=== PATIENT | female | born 1940 | race Caucasian/White ===

== ENCOUNTER 2023-03-05 10:08 | Outpatient (OUT) | payer MEDICARE, SELFPAY ==
[2023-03-05 12:35] LABS: Anion Gap 10.7; BUN Creatinine Ratio 16.9; Calcium 8.8 mg/dL (8.5-10.1); Chloride 102 mmol/L (98-107); Estimated GFR (African America >60 (>=60); Estimated GFR (Non-African Ame >60 (>=60); Glucose 182 mg/dL (74-106); Potassium 3.7 mmol/L (3.5-5.1); Sodium 139 mmol/L (136-145)
== END 2023-03-05 10:09 | disposition home or self-care (01) ==
LOC: LAB 10:13
PROVIDERS: PCP Family Medicine; Visit Provider Internal Medicine Interventional Cardiology
DX: I48.0 Paroxysmal atrial fibrillation (principal)
CPT/HCPCS: 36415; 80048

== ENCOUNTER 2023-09-18 11:30 | Inpatient (IN) | payer MEDICARE, SELFPAY ==
[2023-09-18] VITALS (30 sets, daily range): BP systolic 116–148; BP diastolic 53–72; PULSE 76–128; RESP 16–87; TEMP 36.6–37.4; O2SAT 84–100; BMI 27.8; BMI 28.7
--- NOTE | 2023-09-18 12:36 | ECG_ITS ---
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
[2023-09-18 12:57] LABS: Alanine Aminotransferase 23 U/L (14-59); Albumin Globulin Ratio 0.8; Albumin Level 2.9 g/dL (3.4-5.0); Alkaline Phosphatase 73 U/L (46-116); Aspartate Amino Transferase 32 U/L (15-37); BUN Creatinine Ratio 20.8; Bilirubin Total 0.4 mg/dL (0.2-1.0); Calcium 8.5 mg/dL (8.5-10.1); Carbon Dioxide 25.9 mmol/L (21.0-32.0); Chloride 101 mmol/L (98-107); Estimated GFR (African America >60 (>=60); Estimated GFR (Non-African Ame 56 (>=60); Globulin 3.5 g/dL; Glucose 126 mg/dL (74-106); Magnesium 1.9 mg/dL (1.8-2.4); Potassium 3.9 mmol/L (3.5-5.1); Sodium 137 mmol/L (136-145); Total Protein 6.4 g/dL (6.4-8.2)
[2023-09-18] MEDS: 0.9 % SODIUM CHLORIDE 1,000 ML 999 ML IV (13:01)
[2023-09-18 13:08] LABS: Mean Corpuscular HGB Conc 30.9 g/dL (29.9-35.2); Mean Corpuscular Hemoglobin 35.5 pg (26.7-34.0); Mean Corpuscular Volume 114.9 fL (81.0-99.0); Red Blood Count 1.41 10^6/uL (4.20-5.40)
[2023-09-18 13:14] LABS: Hematocrit 16.2 % (36.0-48.0); Platelet Count 9 10^3/uL (150-450); White Blood Count 31.9 10^3/uL (4.0-11.0)
[2023-09-18 13:28] LABS: Lymphocytes Absolute Manual 1.27 10^3/uL (1.20-3.80); Segmented Neut Absolute Manual 6.69 10^3/uL (1.4-6.5)
[2023-09-18 13:29] LABS: Blast Absolute Manual 23.92; Smudge Cells SEEN
[2023-09-18 13:30] LABS: Anisocytosis 2+; Macrocytosis 3+
[2023-09-18 13:59] LABS: Bilirubin Urine NEGATIVE (NEGATIVE); Blood Urine NEGATIVE (NEGATIVE); Clarity Urine CLEAR (CLEAR); Color Urine LT. YELLOW (YELLOW); Glucose Urine UA NEGATIVE (NEGATIVE); Ketones Urine NEGATIVE (NEGATIVE); Leukocyte Esterase Urine SMALL (NEGATIVE); Nitrite Urine NEGATIVE (NEGATIVE); Protein Urine NEGATIVE (NEG/TRACE); Urobilinogen Urine 0.2 EU/dL (0.2-1.0); pH Urine 5.5 (5.0-9.0)
[2023-09-18 14:13] LABS: Urine Microscopic Indicated YES
[2023-09-18 14:28] LABS: Reticulocyte Pct Auto 3.15 % (0.60-3.10)
[2023-09-18 14:31] LABS: Crystals Seen? None Seen #/HPF (None Seen); Mucus Urine NONE SEEN (NONE SEEN); RBC Urine 0-2 #/HPF (0-2); Squamous Epithelial Cell Urine FEW #/LPF (NONE/RARE)
[2023-09-18 14:32] LABS: Bacteria Urine TRACE #/HPF (NONE SEEN); Cast Seen? NONE SEEN #/LPF (NONE SEEN); Urine Culture Indicated YES
[2023-09-18 14:43] LABS: Percent Iron Saturation 40.9 %
--- NOTE | 2023-09-18 16:20 | P.HP_ITS ---
<Statement entered by Armani Tapia MD - 09/19/23 05:53> This documentation has been reviewed and approved. Chart reviewed, PT not seen Added second antibiotic for more jennifer spectrum with high risk for sepsis given acute state checked stool for occ blood added Blood cx Times 2 H&P: HPI History of Present Illness Chief complaint: DEHYDRATION, Symptomatic Anemia Narrative: 09/18/23 9007 This is an 83-year-old female patient who looks younger than her stated age and with a past medical history as outlined below including hypertension, A-fib on Eliquis, DM2, and hyperlipidemia; who presented to the ED today complaining of weakness, dizziness, and poor appetite for the last 2 weeks. The patient admits to poor appetite since Lucero, but has had difficulty eating even 300 kcal a day over the last 2 weeks. She noted onset of lightheadedness and near syncope when ambulating, blurry vision, headache, and shortness of breath with activity approximately 2 weeks ago. She has become increasingly weak and presented to the ED for further evaluation today. Workup in the ED revealed profound hematologic abnormalities on labs; WBC (31.9), Hgb (5.0), HCT (16.2), PLT (9000). She had a low-grade temperature of 99.3 on arrival to the ED. Mild dehydration with prerenal azotemia was noted as well. A UA was nominally positive for a UTI. Follow-up labs revealed low TIBC and high reticulocyte count, but further anemia workup is still pending. As there is significant clinical concern for acute leukemia, the patient is being admitted as an inpatient to the hospitalist service. Dr. Krueger, oncologist, has been consulted. At the time of my exam the patient is resting quietly on an ED cot. She is pale but awake and alert and able to clearly describe her symptoms. She is normally very active at baseline and has been puzzled by her severe fatigue. She notes some dysuria and burning with wiping after urination. She denies melena or hematochezia. She denies chest pain, N/V/D, abdominal pain or any other acute complaint. She reports nearly 50 pound weight loss over the last year, but most of that was intentional after being diagnosed with type 2 diabetes. She did note increased weight loss over the last 2 weeks. She reports nearly 50 pound weight loss over the last year, but most of that was intentional after being diagnosed with type 2 diabetes. She did note increased weight loss over the last 2 weeks. Review of Systems ROS Status of ROS 10 or more systems reviewed and unremark able except as noted in history and below [facility] Medical History (Updated 09/18/23 @ 18:20 by Cortney Conte) Malignancy ?C80.1 - Malignant (primary) neoplasm, unspecified (ICD-10) FH: coronary artery bypass surgery ?Z82.49 - Family history of ischemic heart disease and other diseases of the circulatory system (ICD-10) A-fib ?I48.91 - Unspecified atrial fibrillation (ICD-10) HTN (hypertension) ?I10 - Essential (primary) hypertension (ICD-10) CAD (coronary artery disease) ?I25.10 - Atherosclerotic heart disease of [place] coronary artery without angina pectoris (ICD-10) Hyperlipidemia ?E78.5 - Hyperlipidemia, unspecified (ICD-10) DM2 (diabetes mellitus, type 2) ?E11.9 - Type 2 diabetes mellitus without complications (ICD-10) Social History Smoking status: Never smoker Highest level of school completed/degree received: some college, no degree Do you think of yourself as: straight/heterosexual Gender Identity: female Meds Home Medications and Allergies Home Medications Medication Instructions Recorded Confirmed Type amlodipine 5 mg tablet 5 mg PO Q24H 09/18/23 09/18/23 History apixaban 5 mg tablet (Eliquis) 5 mg PO Q12H 09/18/23 09/18/23 History aspirin 81 mg tablet,delayed 81 mg PO DAILY 09/18/23 09/18/23 History release (Adult Aspirin Regimen) atorvastatin 40 mg tablet 40 mg PO Q24H 09/18/23 09/18/23 History furosemide 20 mg tablet 20 mg PO Q12H 09/18/23 09/18/23 History metformin 500 mg tablet 500 mg PO Q12H 09/18/23 09/18/23 History metoprolol tartrate 25 mg tablet 25 mg PO Q12H 09/18/23 09/18/23 History Allergies Allergy/AdvReac Type Severity Reaction Status Date / Time ORANGES AdvReac Uncoded 09/18/23 11:49 Exam Constitutional Vital Signs, click to edit/add: Last Vital Signs Temp 98.2 F 09/18/23 16:16 Pulse 85 09/18/23 16:16 Resp 16 09/18/23 16:16 BP 123/57 09/18/23 16:16 Pulse Ox 92 L 09/18/23 16:16 O2 Del Method Room Air 09/18/23 16:16 Common normals: no apparent distress, oriented x3, alert and well nourished General appearance: cooperative and other (Pale) Nutritional appearance: overweight Orientation/consciousness: Yes awake HENMT Common normals: normocephalic, head/scalp atraumatic, hearing grossly normal min[place] aterally, external nose normal and moist oral mucous membranes Eye Common normals: PERRL, EOMs intact bilaterally, conjunctivae normal and no scleral icterus Alignment: alignment normal Eyelid: eyelids normal Neck & C-Spine Common normals: full ROM, supple and no JVD Chest Common normals: inspection of chest normal Chest: symmetrical chest wall rise Respiratory Common normals: normal respiratory effort, no retractions, no use of accessory muscles and clear to auscultation bilaterally Effort & inspection: able to speak in complete sentences Cardio Common normals: no JVD, regular rate, regular rhythm, S1 normal heart sound, S2 normal heart sound, no gallops, no clicks, no rub and peripheral pulses 2+ throughout Heart sounds: murmur (HSM 2/6) GI Common normals: Normal to inspection, nondistended, normoactive bowel sounds present, soft to palpation, non-tender, no hepatosplenomegaly, no masses and no bruits Bladder/kidney exam: bladder normal to palpation Back & Pelvis Common normals: thoracic and lumbar spine normal to inspection Extremity Common normals: normal capillary refill and no pedal edema General: normal exam except as noted; no clubbing and no cyanosis Neuro [place] Coma Scale: GCS not evaluated Common normals: CN's II-XII intact bilaterally, moves all extremities, no focal motor deficits and no sensory deficits noted Speech: speech normal Motor exam: strength 5/5 throughout Psych Common normals: mental status grossly normal, thought process normal, affect normal and activity/motor behavior normal Results Labs Labs: Short CBC 09/18/23 Range/Units 13:00 WBC 31.9 H* (4.0-11.0) 10^3/uL Hgb 5.0 L* (12.0-16.0) g/dL Hct 16.2 L* (36.0-48.0) % Plt Count 9 L* (150-450) 10^3/uL BMP 09/18/23 12:00 Sodium 137 Potassium 3.9 Chloride 101 Carbon Dioxide 25.9 BUN 20.0 H Creatinine 0.96 Glucose 126 H Calcium 8.5 Liver Function 09/18/23 Range/Units 12:00 Total Bilirubin 0.4 (0.2-1.0) mg/dL AST 32 (15-37) U/L ALT 23 (14-59) U/L Alkaline Phosphatase 73 (46-116) U/L Albumin 2.9 L (3.4-5.0) g/dL Urine 09/18/23 Range/Units 13:39 Urine Color Lt. yellow (YELLOW) Urine Clarity Clear (CLEAR) Urine pH 5.5 (5.0-9.0) Ur Specific [place] 1.020 (1.005-1.025) Urine Protein Negative (NEG/TRACE) mg/dL Urine Glucose (UA) Negative (NEGATIVE) mg/dL Pulse Oximetry Attestation: I have reviewed the pertinent pulse oximetry results. Assessment and Plan Assessment and Plan (1) Acute leukemia: Assessment and Plan: Acute * Adm inpatient * Profound leukocytosis - 31,900 * Equivocal UTI - see below * Low grade temp - 99.3 on arrival to ED * Profound anemia - 5.0 * 2 un PRBCs - transfuse now * No evidence of active bleeding despite Eliquis and low platelets * Check for FOB * Hold Eliquis for now * Hemolytic anemia work up ordered in ED - pending * Profound thrombocytopenia - 9,000 * Defer platelet transfusion to hematology after PRBC transfusion complete * C/S Dr Krueger, Hematology * Defer further transfusions - platelets or additional PRBCs, to Hematology service * Defer further work up including bone marrow biopsy etc to Hematolgy * Daily CBC (2) UTI (urinary tract infection): Assessment and Plan: Acute * IVPB Rocephin daily * UA C&S pending (3) Dehydration: Assessment and Plan: Acute * Mild w/ pre-renal azotemia * 1 liter IVF bolus given in ED * Gentle IVF w/ LR at 50 ml/hr to avoid rapid hemodilution in a pt that is severely anemia * Hold home lasix for now * Daily weights, strict I&O * Resume when clinically indicated * No evidence of fluid overload, unknown CHF hx if any (4) Protein calorie malnutrition: Assessment and Plan: Acute * C/S Structural Fitter * Ensure BID
[2023-09-18] MEDS: ACETAMINOPHEN 325 MG TABLET 650 MG PO (16:43)
[2023-09-18] MEDS: DIPHENHYDRAMINE HCL 50 MG/ML (1ML) VIAL IV (16:45)
[2023-09-18 17:14] LABS: Lactate Dehydrogenase 1423 U/L (81-234)
--- NOTE | 2023-09-18 17:30 | PM.CN ---
Consult Note: HPI Data of Consult Requesting Physician: Armani Tapia MD Primary Care Provider: DARBY HAMLIN Consult Narrative Reason for consult: concern for leukemia Narrative: This is an 83-year-old female patient, who follows closely with Dr Hamlin. She looks younger than her stated age, and has a good performance status. She has pmh of of hypertension, A-fib on Eliquis, DM2, and hyperlipidemia; who presented to the ED today complaining of weakness, dizziness, and poor appetite for the last 2 weeks. The patient admits to poor appetite since [place], but has had difficulty eating even 300 kcal a day over the last 2 weeks. She noted onset of lightheadedness and near syncope when ambulating, blurry vision, headache, and shortness of breath with activity approximately 2 weeks ago. She has become increasingly weak and presented to the ED for further evaluation today. Workup in the ED revealed profound hematologic abnormalities on labs; WBC (31.9), Hgb (5.0), HCT (16.2), PLT (9000). She had a low-grade temperature of 99.3 on arrival to the ED. Mild dehydration with prerenal azotemia was noted as well. A UA was nominally positive for a UTI. Follow-up labs revealed low TIBC and high reticulocyte count, but further anemia workup is still pending. We were consulted due to concern for leukemia. Her peripheral blood smear shows moderate leukocytosis, markedly increased immature blasts for at least 75% of the leukocytes, moderate to severe macrocytic anemia, with moderate anisocytosis and severe thrombocytopenia. Overall concerns are for acute leukemia with marrow replacement, with leukoerythroblastic picture. At the time of my exam the patient is receiving pRBC. She has been ordered for two units red blood cells and 1 unit platelet. She is pale but awake and alert and able to clearly describe her symptoms. She notes that she has strong support system, and would desire treatment, even if she has leukemia. She is a bit puzzled that her recent wellness evaluation with PCP was unremarkable. She is normally very active at baseline and has been surprised by her severe fatigue. She notes some dysuria and burning with wiping after urination. She denies melena or hematochezia. She denies chest pain, N/V/D, abdominal pain or any other acute complaint. She reports nearly 50 pound weight loss over the last year, but most of that was intentional after being diagnosed with type 2 diabetes. She in fact wonders if metformin could have caused her leukemia. I have discussed with pt at the bedside, and daughter Almaz on the phone. I discussed my concern for acute leukemia, and have also discussed with colleagues at [facility] (Dr Ana Bill). We will start IVF NS @ 100 mL/hr, we will transfuse to support Hgb > 7 and plt > 10. We will start allopurinol and also test LDH / uric acid. We will start hydrea 500 mg BID once Hgb / platelets are more stable. We will obtain TLS labs q8 hours. We will initiate transfer to [facility] for her bone marrow biopsy and initiation of therapy. ECOG PS 3. cc:: CC: Armani Tapia MD Review of Systems ROS Narrative A comprehensive 12 point review of systems was conducted and is negative other than that reported in the history of present illness. [facility] Medical History (Updated 09/18/23 @ 16:47 by Ila Barry NP) A-fib ?I48.91 - Unspecified atrial fibrillation (ICD-10) HTN (hypertension) ?I10 - Essential (primary) hypertension (ICD-10) CAD (coronary artery disease) ?I25.10 - Atherosclerotic heart disease of [place] coronary artery without angina pectoris (ICD-10) Hyperlipidemia ?E78.5 - Hyperlipidemia, unspecified (ICD-10) DM2 (diabetes mellitus, type 2) ?E11.9 - Type 2 diabetes mellitus without complications (ICD-10) Social History Smoking status: Never smoker Meds Home Medications and Allergies Home Medications Medication Instructions Recorded Confirmed Type amlodipine 5 mg tablet 5 mg PO Q24H 09/18/23 09/18/23 History apixaban 5 mg tablet (Eliquis) 5 mg PO Q12H 09/18/23 09/18/23 History aspirin 81 mg tablet,delayed 81 mg PO DAILY 09/18/23 09/18/23 History release (Adult Aspirin Regimen) atorvastatin 40 mg tablet 40 mg PO Q24H 09/18/23 09/18/23 History furosemide 20 mg tablet 20 mg PO Q12H 09/18/23 09/18/23 History metformin 500 mg tablet 500 mg PO Q12H 09/18/23 09/18/23 History metoprolol tartrate 25 mg tablet 25 mg PO Q12H 09/18/23 09/18/23 History Allergies Allergy/AdvReac Type Severity Reaction Status Date / Time ORANGES AdvReac Uncoded 09/18/23 11:49 Exam Narrative Exam Narrative: Common normals: no apparent distress, oriented x3, alert and well nourished General appearance: cooperative and other (Pale) Nutritional appearance: overweight Orientation/consciousness: Yes awake HENMT Common normals: normocephalic, head/scalp atraumatic, hearing grossly normal bilaterally, external nose normal and moist oral mucous membranes Eye Common normals: PERRL, EOMs intact bilaterally, conjunctivae normal and no scleral icterus Alignment: alignment normal Eyelid: eyelids normal Neck & C-Spine Common normals: full ROM, supple and no JVD Chest Common normals: inspection of chest normal Chest: symmetrical chest wall rise Respiratory Common normals: normal respiratory effort, no retractions, no use of accessory muscles and clear to auscultation bilaterally Effort & inspection: able to speak in complete sentences Cardio Common normals: no JVD, regular rate, regular rhythm, S1 normal heart sound, S2 normal heart sound, no gallops, no clicks, no rub and peripheral pulses 2+ throughout Heart sounds: murmur (HSM 2/6) GI Common normals: Normal to inspection, nondistended, normoactive bowel sounds present, soft to palpation, non-tender, no hepatosplenomegaly, no masses and no bruits Bladder/kidney exam: bladder normal to palpation Back & Pelvis Common normals: thoracic and lumbar spine normal to inspection Extremity Common normals: normal capillary refill and no pedal edema General: normal exam except as noted; no clubbing and no cyanosis Neuro [place] Coma Scale: GCS not evaluated Common normals: CN's II-XII intact bilaterally, moves all extremities, no focal motor deficits and no sensory deficits noted Speech: speech normal Motor exam: strength 5/5 throughout Psych Common normals: mental status grossly normal, thought process normal, affect normal and activity/motor behavior normal Constitutional Vital Signs, click to edit/add: Last Vital Signs Temp 99.3 F 09/18/23 16:43 Pulse 90 09/18/23 16:34 Resp 16 09/18/23 16:34 BP 128/53 09/18/23 16:34 Pulse Ox 92 L 09/18/23 16:34 O2 Del Method Room Air 09/18/23 16:34 Results Labs Labs: Short CBC 09/18/23 Range/Units 13:00 WBC 31.9 H* (4.0-11.0) 10^3/uL Hgb 5.0 L* (12.0-16.0) g/dL Hct 16.2 L* (36.0-48.0) % Plt Count 9 L* (150-450) 10^3/uL BMP 09/18/23 12:00 Sodium 137 Potassium 3.9 Chloride 101 Carbon Dioxide 25.9 BUN 20.0 H Creatinine 0.96 Glucose 126 H Calcium 8.5 Liver Function 09/18/23 Range/Units 12:00 Total Bilirubin 0.4 (0.2-1.0) mg/dL AST 32 (15-37) U/L ALT 23 (14-59) U/L Alkaline Phosphatase 73 (46-116) U/L Albumin 2.9 L (3.4-5.0) g/dL Urine 09/18/23 Range/Units 13:39 Urine Color Lt. yellow (YELLOW) Urine Clarity Clear (CLEAR) Urine pH 5.5 (5.0-9.0) Ur Specific [place] 1.020 (1.005-1.025) Urine Protein Negative (NEG/TRACE) mg/dL Urine Glucose (UA) Negative (NEGATIVE) mg/dL Additional Findings Additional findings: Peripheral blood smear from 09/18/2023 reviewed. Her peripheral blood smear shows moderate leukocytosis, markedly increased immature blasts for at least 75% of the leukocytes, moderate to severe macrocytic anemia, with moderate anisocytosis and severe thrombocytopenia. Overall concerns are for acute leukemia with marrow replacement, with leukoerythroblastic picture. Assessment and Plan Assessment and Plan (1) Acute leukemia: (2) UTI (urinary tract infection): (3) Dehydration: (4) Protein calorie malnutrition: (5) DM2 (diabetes mellitus, type 2): (6) CAD (coronary artery disease): (7) HTN (hypertension): (8) A-fib: Plan 83 y/o female with resected melanoma felt to be without disease (no chemo/xrt), AFIB on Eliquis, presenting with profound fatigue. Labs show leukocytosis, marked anemia and thrombocytopenia. Peripheral smear raises concern for blasts and acute leukemia. Impression: 1. Probable acute leukemia 2. Severe / symptomatic anemia 3. Severe thrombocytopenia 4. Leukocytosis with circulating blasts on peripheral smear 5. AFIB on Eliquis 6. Profound fatigue 7. Weight loss 8. Low grade temp 9. Possible UTI PLAN: - agree with pRBC and plt transfusion, to maintain Hgb > 7 and plt > 10K - discussed with blood bank. next blood unit [facility], hopefully here by AM - repeat CBC this evening - add LDH and uric aid - TLS labs q8 hours - ordered allopurinol 300 mg daily - aggressive IVF hydration. changed fluids to 0.9% NS @ 100 cc/hr - agree with IV Abx for possible UTI - agree with holding eliquis with severe anemia and thrombocytopenia - consider CT head if having headaches or GEOLOGICAL MANAGER symptoms to r/o bleed, although low suspicion at present time - hydrea 500 mg BID when Hgb / plt more stable, either later today or in AM - I have discussed with pt at the bedside, and daughter Almaz on the phone. I discussed my concern for acute leukemia. I have also discussed with colleagues at [facility] (Dr Ana Bill). We will start IVF NS @ 100 mL/hr, we will transfuse to support Hgb > 7 and plt > 10. We will start allopurinol and also test LDH / uric acid. We will start hydrea 500 mg BID once Hgb / platelets are more stable. We will obtain TLS labs q8 hours. We will initiate transfer to [facility] for her bone marrow biopsy and initiation of therapy, if pt and family agree. her likely treatment would involve Vidaza + Venclexta, if our suspicion for acute leukemia is confirmed. Thank you for the consult. Please do not hesitate to call for any q's or concerns. Aneta Krueger MD Hematology Oncology Face to face time: 90 mins
[2023-09-18] MEDS: ALLOPURINOL 300 MG TABLET PO (18:24)
--- NOTE | 2023-09-18 18:59 | ED.GENADUL1 ---
HPI - General Adult General Chief complaint: Weakness Stated complaint: DEHYDRATION Time Seen by Provider: 09/18/23 11:44 Source: patient Mode of arrival: Wheelchair Limitations: no limitations History of Present Illness HPI narrative: 83-year-old female to the emergency department with chief complaint of malaise, fatigue, decreased oral intake. Symptoms were ongoing for the last two months. Intake particularly bad over the last two weeks. She reports she has lost a significant amount of weight. She denies any fever, sweats, chills. Denies any nausea or vomiting. She denies any dark tarry stools or blood in stool. She was seen by her primary care doctor was concerned she may be dehydrated at this point. She was sent to the emergency department for evaluation from his office. Related Data Home Medications Medication Instructions Recorded Confirmed amlodipine 5 mg tablet 5 mg PO Q24H 09/18/23 09/18/23 apixaban 5 mg tablet (Eliquis) 5 mg PO Q12H 09/18/23 09/18/23 aspirin 81 mg tablet,delayed 81 mg PO DAILY 09/18/23 09/18/23 release (Adult Aspirin Regimen) atorvastatin 40 mg tablet 40 mg PO Q24H 09/18/23 09/18/23 furosemide 20 mg tablet 20 mg PO Q12H 09/18/23 09/18/23 metformin 500 mg tablet 500 mg PO Q12H 09/18/23 09/18/23 metoprolol tartrate 25 mg tablet 25 mg PO Q12H 09/18/23 09/18/23 Allergies Allergy/AdvReac Type Severity Reaction Status Date / Time ORANGES AdvReac Uncoded 09/18/23 11:49 Review of Systems ROS Status of ROS 10 or more systems reviewed and unremarkable except as noted in history and below [facility] Medical History (Updated 09/18/23 @ 19:06 by Jez Benitez MD) Malignancy ?C80.1 - Malignant (primary) neoplasm, unspecified (ICD-10) FH: coronary artery bypass surgery ?Z82.49 - Family history of ischemic heart disease and other diseases of the circulatory system (ICD-10) A-fib ?I48.91 - Unspecified atrial fibrillation (ICD-10) HTN (hypertension) ?I10 - Essential (primary) hypertension (ICD-10) CAD (coronary artery disease) ?I25.10 - Atherosclerotic heart disease of [place] coronary artery without angina pectoris (ICD-10) Hyperlipidemia ?E78.5 - Hyperlipidemia, unspecified (ICD-10) DM2 (diabetes mellitus, type 2) ?E11.9 - Type 2 diabetes mellitus without complications (ICD-10) Social History Smoking status: Never smoker Highest level of school completed/degree received: some college, no degree Do you think of yourself as: straight/heterosexual Gender Identity: female Exam Narrative Exam Narrative: VITALS: I have reviewed the triage vital signs. GENERAL: Well developed, well appearing adult in no acute distress. NEURO: Alert and oriented. Moves all extremities. Face is symmetric and expressive. EYES: PERRL. No scleral icterus or conjunctival injection. No discharge. HENT: Normocephalic, atraumatic. Hearing is grossly intact. Nares grossly patent and without discharge. Mucous membranes moist. NECK: No JVD. Patient moves neck without restriction. CARDIO: Rhythm regular. Normal rate. No murmur, rub, or gallop. Pulses equal bilaterally in the upper and lower extremity. No lower extremity edema. PULM: Lungs clear to auscultation in all lugo. No wheezes, rales, or rhonchi. No conversational dyspnea. No splinting, stridor, or accessory muscle use. GI/: Abdomen is soft and non-tender. Normoactive bowel sounds. EXTREMITIES: Symmetric muscle bulk. No joint swelling. No clubbing, cyanosis, or deformity. SKIN: Warm and dry. Normal turgor. No rash or lesions appreciated. PSYCH: Mood, affect, and interaction is appropriate to the setting. Constitutional Vital Signs, click to edit/add: Last Vital Signs Temp 98.2 F 09/18/23 18:34 Pulse 85 09/18/23 18:34 Resp 16 09/18/23 18:34 BP 124/72 09/18/23 18:34 Pulse Ox 93 L 09/18/23 18:34 O2 Del Method Room Air 09/18/23 18:34 Course Vital Signs Vital signs: Vital Signs Temperature 99.3 F 09/18/23 11:49 Pulse Rate 83 09/18/23 11:49 Respiratory Rate 18 09/18/23 11:49 Blood Pressure 148/56 H 09/18/23 11:49 Pulse Oximetry 94 L 09/18/23 11:49 Oxygen Delivery Method Room Air 09/18/23 11:49 Temperature 98.2 F 09/18/23 18:34 Pulse Rate 85 09/18/23 18:34 Respiratory Rate 16 09/18/23 18:34 Blood Pressure 124/72 09/18/23 18:34 Pulse Oximetry 93 L 09/18/23 18:34 Oxygen Delivery Method Room Air 09/18/23 18:34 Medical Decision Making MDM Narrative Medical decision making narrative: 83-year-old female to the emergency department with chief complaint of malaise, dehydration. Vital stable, the patient is afebrile. The patient labs are ordered. Patient agrees with this plan. Labs reviewed. She is anemic with a hemoglobin of five. She is pancytopenic. She does have an elevated white blood cell count with a blast predominance. Consent was obtained for blood products. Two units packed red blood cells were ordered. I called and discussed with the on-call oncologist Dr. Krueger. He gave me some further labs ordered and will see the patient in consultation. I discussed with Dr. Montgomery who agreed to admit this patient. Medical Records Medical records reviewed: Yes I reviewed the patient's medical records Lab Data Lab results reviewed: Yes I reviewed the patient's lab results Labs: Lab Results 09/18/23 09/18/23 09/18/23 Range/Units 12:00 13:00 13:39 WBC 31.9 H* (4.0-11.0) 10^3/uL RBC 1.41 L (4.20-5.40) 10^6/uL Hgb 5.0 L* (12.0-16.0) g/dL Hct 16.2 L* (36.0-48.0) % MCV 114.9 H (81.0-99.0) fL MCH 35.5 H (26.7-34.0) pg MCHC 30.9 (29.9-35.2) g/dL RDW 18.0 H (11.0-15.0) % Plt Count 9 L* (150-450) 10^3/uL MPV 0.0 L (9.5-13.5) fL Seg Neuts % (Manual) 21.0 Lymphocytes % (Manual) 4.0 L (20.5-60.0) % Monocytes % (Manual) 0.0 L (1.7-12.0) % Eosinophils % (Manual) 0.0 L (0.9-7.0) % Basophils % (Manual) 0.0 L (0.2-2.0) % Blast Cells % (Manual) 75.0 Neutrophils # (Manual) 6.69 H (1.4-6.5) 10^3/uL Lymphocytes # (Manual) 1.27 (1.20-3.80) 10^3/uL Monocytes # (Manual) 0.00 L (0.30-0.80) 10^3/uL Eosinophils # (Manual) 0.00 (0.00-0.70) 10^3/uL Basophils # (Manual) 0.00 (0.00-0.10) 10^3/uL Blast Cells # 23.92 Smudge Cells Seen Anisocytosis 2+ Macrocytosis 3+ Peripheral Blood Smear See scanned report Retic Count (auto) 3.15 H (0.60-3.10) % Sodium 137 (136-145) mmol/L Potassium 3.9 (3.5-5.1) mmol/L Chloride 101 (98-107) mmol/L Carbon Dioxide 25.9 (21.0-32.0) mmol/L Anion Gap 14.0 BUN 20.0 H (7.0-18.0) mg/dL Creatinine 0.96 (0.55-1.02) mg/dL Est GFR ( Amer) >60 (>=60) Est GFR (Non-Af Amer) 56 L (>=60) BUN/Creatinine Ratio 20.8 Glucose 126 H (74-106) mg/dL Calcium 8.5 (8.5-10.1) mg/dL Magnesium 1.9 (1.8-2.4) mg/dL Iron 83.0 (50.0-170.0) ug/dL TIBC 203.0 L (250.0-450.0) ug/dL % Saturation 40.9 % Ferritin 366.0 H (8.0-252.0) ng/mL Total Bilirubin 0.4 (0.2-1.0) mg/dL AST 32 (15-37) U/L ALT 23 (14-59) U/L Alkaline Phosphatase 73 (46-116) U/L Lactate Dehydrogenase 1423 H (81-234) U/L Total Protein 6.4 (6.4-8.2) g/dL Albumin 2.9 L (3.4-5.0) g/dL Globulin 3.5 g/dL Albumin/Globulin Ratio 0.8 Urine Color Lt. yellow (YELLOW) Urine Clarity Clear (CLEAR) Urine pH 5.5 (5.0-9.0) Ur Specific [place] 1.020 (1.005-1.025) Urine Protein Negative (NEG/TRACE) mg/dL Urine Glucose (UA) Negative (NEGATIVE) mg/dL Urine Ketones Negative (NEGATIVE) mg/dL Urine Occult Blood Negative (NEGATIVE) Urine Nitrite Negative (NEGATIVE) Urine Bilirubin Negative (NEGATIVE) Urine Urobilinogen 0.2 (0.2-1.0) EU/dL Ur Leukocyte Esterase Small A (NEGATIVE) Urine RBC 0-2 (0-2) #/HPF Urine WBC 5-10 A (NONE SEEN) #/HPF Ur Squamous Epith Cells Few A (NONE/RARE) #/LPF Urine Crystals None seen (None Seen) #/HPF Urine Bacteria Trace A (NONE SEEN) #/HPF Urine Casts None seen (NONE SEEN) #/LPF Urine Mucus None seen (NONE SEEN) Ur Culture Indicated? Yes Blood Type B Positive Antibody Screen Negative Crossmatch See Detail Critical Care Time Critical Care Time Critical Care Time: Yes Total Critical Care Time: 45 Attestation: Critical Care Procedure Note Authorized and Performed by: Jez Benitez DO Total critical care time: 45 min Due to a high probability of clinically significant, life threatening deterioration, the patient required my highest level of preparedness to intervene emergently and I personally spent this critical care time directly and personally managing the patient. This critical care time included obtaining a history; examining the patient; pulse oximetry; ordering and review of studies; arranging urgent treatment with development of a management plan; evaluation of patient's response to treatment; frequent reassessment; and, discussions with other providers. This critical care time was performed to assess and manage the high probability of imminent, life-threatening deterioration that could result in multi-organ failure. It was exclusive of separately billable procedures and treating other patients and teaching time. Please see MDM section and the rest of the note for further information on patient assessment and treatment. Discharge Plan Discharge Chief Complaint: Weakness Clinical Impression: Symptomatic anemia, Acute leukemia Patient Disposition: Admitted As Inpatient Condition: Fair Discharge Date/Time: 09/18/23 15:51
[2023-09-18] MEDS: 0.9 % SODIUM CHLORIDE 1,000 ML 100 ML IV (20:38)
[2023-09-18 21:36] LABS: Glucometer 133 mg/dL (74-106)
[2023-09-18] MEDS: ATORVASTATIN CALCIUM 40 MG TABLET PO (21:39)
[2023-09-18] MEDS: LACTOSE -REDUCED (ENSURE ORIGINAL 237 ML LIQUID) PO (21:39)
[2023-09-18] MEDS: CEFTRIAXONE 1,000 MG in 0.9 % SODIUM CHLORIDE 50 ML 100 MG IV (21:52)
[2023-09-18] MEDS: LEVOFLOXACIN IN DEXTROSE 5 % 750 MG/150 ML IV.SOLN 100 MG IV (22:37)
[2023-09-19] VITALS (24 sets, daily range): BP systolic 120–160; BP diastolic 63–75; PULSE 69–106; RESP 16–20; TEMP 36.6–37.3; O2SAT 91–97; BMI 29.5
--- NOTE | 2023-09-19 03:56 | PC.NURSE ---
Platelets started. Lungs sound clear
[2023-09-19 05:07] LABS: Haptoglobin 198 mg/dL (41-333)
--- NOTE | 2023-09-19 05:54 | PC.NURSE ---
Platelets finished. Lungs clear. Lab with redraw in 1 hour
[2023-09-19 07:13] LABS: Mean Corpuscular Hemoglobin 32.5 pg (26.7-34.0); Mean Corpuscular Volume 98.5 fL (81.0-99.0); Mean Platelet Volume 12.2 fL (9.5-13.5); Red Blood Count 2.03 10^6/uL (4.20-5.40); Red Cell Distribution Width 23.9 % (11.0-15.0); White Blood Count 22.1 10^3/uL (4.0-11.0)
[2023-09-19 07:35] LABS: Alanine Aminotransferase 18 U/L (14-59); Albumin Globulin Ratio 0.8; Albumin Level 2.5 g/dL (3.4-5.0); Alkaline Phosphatase 60 U/L (46-116); Anion Gap 11.8; Aspartate Amino Transferase 26 U/L (15-37); BUN Creatinine Ratio 16.9; Bilirubin Total 0.4 mg/dL (0.2-1.0); Carbon Dioxide 26.5 mmol/L (21.0-32.0); Chloride 107 mmol/L (98-107); Estimated GFR (African America >60 (>=60); Estimated GFR (Non-African Ame >60 (>=60); Globulin 3.1 g/dL; Glucose 94 mg/dL (74-106); Potassium 3.3 mmol/L (3.5-5.1); Sodium 142 mmol/L (136-145); Total Protein 5.6 g/dL (6.4-8.2)
[2023-09-19 07:48] LABS: Hemoglobin 6.6 g/dL (12.0-16.0); Platelet Count 22 10^3/uL (150-450)
[2023-09-19 07:50] LABS: Glucometer 111 mg/dL (74-106)
[2023-09-19] MEDS: AMLODIPINE BESYLATE 5 MG TABLET PO (08:37)
[2023-09-19] MEDS: METOPROLOL TARTRATE 25 MG TABLET PO ×2 (08:37→21:36)
[2023-09-19] MEDS: 0.9 % SODIUM CHLORIDE 1,000 ML 100 ML IV ×2 (08:37→21:37)
[2023-09-19] MEDS: LACTOSE -REDUCED (ENSURE ORIGINAL 237 ML LIQUID) PO ×2 (08:38→21:36)
[2023-09-19 09:35] LABS: Uric Acid 5.1 mg/dL (2.6-6.0)
[2023-09-19 09:37] LABS: Magnesium 1.8 mg/dL (1.8-2.4); Phosphorus 3.5 mg/dL (2.6-4.7)
[2023-09-19] MEDS: ALPRAZOLAM 0.5 MG TABLET PO ×3 (09:52→23:31)
[2023-09-19] MEDS: ACETAMINOPHEN 325 MG TABLET 650 MG PO (10:15)
[2023-09-19] MEDS: POTASSIUM CHLORIDE 10 MEQ ER TABLET 40 MEQ PO (10:41)
[2023-09-19 11:03] LABS: Glucometer 219 mg/dL (74-106)
[2023-09-19] MEDS: INSULIN ASPART 300 UNIT/3 ML PEN SUBQ (11:11)
--- NOTE | 2023-09-19 11:19 | CM.NOTE ---
Rounds made with Dr. Tapia. Labs results explained by Dr. Tapia. Discussed plan to transfer with Ms. Shen. Understanding verbalized.
--- NOTE | 2023-09-19 11:20 | CM.NOTE ---
Important Message from [employer] reviewed and signed. No questions verbalized. Copy to chart, original to Ms. Shen.
[2023-09-19 11:59] LABS: Lymphocytes Absolute Manual 2.65 10^3/uL (1.20-3.80); Monocytes Absolute Manual 0.88 10^3/uL (0.30-0.80); Segmented Neut Absolute Manual 3.75 10^3/uL (1.4-6.5)
[2023-09-19 12:00] LABS: Anisocytosis 2+; Hypochromasia 2+
[2023-09-19 12:03] LABS: Poikilocytosis 1+
[2023-09-19 12:04] LABS: Nucleated Red Blood Cells 1
[2023-09-19 14:37] LABS: Hemoglobin 7.8 g/dL (12.0-16.0); Mean Corpuscular HGB Conc 33.3 g/dL (29.9-35.2); Mean Corpuscular Hemoglobin 31.5 pg (26.7-34.0); Mean Corpuscular Volume 94.4 fL (81.0-99.0); Red Blood Count 2.48 10^6/uL (4.20-5.40); Red Cell Distribution Width 23.5 % (11.0-15.0); White Blood Count 23.8 10^3/uL (4.0-11.0)
[2023-09-19 14:40] LABS: Alanine Aminotransferase 21 U/L (14-59); Albumin Globulin Ratio 0.8; Albumin Level 2.5 g/dL (3.4-5.0); Alkaline Phosphatase 60 U/L (46-116); Aspartate Amino Transferase 27 U/L (15-37); Bilirubin Total 0.4 mg/dL (0.2-1.0); Calcium 7.9 mg/dL (8.5-10.1); Chloride 109 mmol/L (98-107); Estimated GFR (African America >60 (>=60); Estimated GFR (Non-African Ame >60 (>=60); Glucose 89 mg/dL (74-106); Magnesium 1.8 mg/dL (1.8-2.4); Phosphorus 3.2 mg/dL (2.6-4.7); Sodium 142 mmol/L (136-145); Total Protein 5.5 g/dL (6.4-8.2)
[2023-09-19 14:54] LABS: Mean Platelet Volume 11.1 fL (9.5-13.5)
[2023-09-19 14:55] LABS: Hematocrit 23.4 % (36.0-48.0)
[2023-09-19 14:56] LABS: Platelet Count 22 10^3/uL (150-450)
--- NOTE | 2023-09-19 15:00 | P.PN_ITS ---
<Statement entered by Armani Tapia MD - 09/19/23 19:07> This documentation has been reviewed and approved. Patient was seen and evaluated this morning. She was up and eating her breakfast at the time. No specific complaints. Still weak. Overall does feel improved from previous day. She has received 2 units of blood and is about to get her third. Agree with input and findings by nurse practitioner. Patient states she did have blood work done recently for her wellness . Will try to track down those results. This was 2 weeks ago when she was told they were norm al Progress Note: Subjective Subjective Interval history: 09/19/23 1135 The patient is resting in bed visiting with her spouse. She looks a little better than yesterday but continues to feel weak. Her hemoglobin was 6.6 this morning after 2 units were transfused overnight. We will transfuse third unit of irradiated blood now. The patient was seen in consult by Dr. Krueger, heme-oncology, yesterday afternoon. He is recommending transfer to [facility] for complete workup of her acute leukemia. Dr. Krueger has been in contact with the oncology group at [facility] and they agreed to take the patient. I have already contacted [facility] myself and arranged transfer. She has been accepted in transfer by Dr. Durham of the oncology service. Unfortunately there are no beds available at this time so the patient will remain here with close monitoring of her lab values and further transfusions as indicated until a bed becomes available at [facility]. Exam Constitutional Vital Signs, click to edit/add: Last Vital Signs Temp 97.9 F 09/19/23 12:00 Pulse 69 09/19/23 12:00 Resp 18 09/19/23 12:00 BP 125/75 09/19/23 12:00 Pulse Ox 96 09/19/23 12:00 O2 Del Method Room Air 09/19/23 12:00 Common normals: no apparent distress, oriented x3 and alert General appearance: cooperative Orientation/consciousness: Yes awake Other: Pale HENMT Common normals: normocephalic, head/scalp atraumatic and hearing grossly normal bilaterally Eye Common normals: PERRL, EOMs intact bilaterally, conjunctivae normal and no scleral icterus General eye: normal appearance of both eyes Chest Common normals: inspection of chest normal Chest: symmetrical chest wall rise Respiratory Common normals: normal respiratory effort, no use of accessory muscles and clear to auscultation bilaterally Effort & inspection: able to speak in complete sentences Auscultation: clear to auscultation bilaterally Cardio Common normals: regular rate, regular rhythm, S1 normal heart sound, S2 normal heart sound, no murmurs and peripheral pulses 2+ throughout GI Common normals: Normal to inspection, nondistended, normoactive bowel sounds present, soft to palpation, non-tender and no hepatosplenomegaly Bladder/kidney exam: bladder normal to palpation Extremity Common normals: normal to inspection and no calf tenderness General: no clubbing, no cyanosis and no edema Neuro Common normals: oriented x3, CN's II-XII intact bilaterally, moves all extremities, no focal motor deficits and no sensory deficits noted Sensorium/orientation: awake and alert Psych Common normals: mental status grossly normal Progress Note: Objective Labs Labs: Short CBC 09/19/23 09/19/23 Range/Units 06:59 14:10 WBC 22.1 H 23.8 H (4.0-11.0) 10^3/uL Hgb 6.6 L* 7.8 L (12.0-16.0) g/dL Hct 20.0 L* 23.4 L* (36.0-48.0) % Plt Count 22 L* 22 L* (150-450) 10^3/uL BMP 09/19/23 09/19/23 06:59 14:10 Sodium 142 142 Potassium 3.3 L 4.0 Chloride 107 109 H Carbon Dioxide 26.5 26.0 BUN 11.0 9.0 Creatinine 0.65 0.69 Glucose 94 89 Calcium 8.0 L 7.9 L Liver Function 09/19/23 09/19/23 Range/Units 06:59 14:10 Total Bilirubin 0.4 0.4 (0.2-1.0) mg/dL AST 26 27 (15-37) U/L ALT 18 21 (14-59) U/L Alkaline Phosphatase 60 60 (46-116) U/L Albumin 2.5 L 2.5 L (3.4-5.0) g/dL Progress Note: A&P Assessment and Plan (1) Acute leukemia: Assessment and Plan: Acute * 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 Discontinued by him today as WBCs have improved * Improved anemia - 6.6 after 2 un PRBCs * Transfuse an additional 1 un irradiated PRBCs now * Check for FOB - pending collection * Continue to hold Eliquis for now * Repeat labs this afternoon * Transfuse further units for Hgb < [address]ueger recommendations * Improved thrombocytopenia - 22,000 after 1 un platelet transfusion * Repeat labs this afternoon * Transfuse further units for platelets < 10,[address] Krueger recommendations * C/S Dr Krueger, Hematology * obtain twice daily CBC, CMP, Mag, Phos per Dr Krueger recommendation * Add uric acid to AM labs today (2) UTI (urinary tract infection): Assessment and Plan: Acute * Continue IVPB Rocephin daily * IVPB Levaquin added for double broad spectrum coverage in an immunosupressed pt * UA C&S pending (3) Dehydration: Assessment and Plan: Acute * Resolved * Gentle IVF given w/ NS at 100/hr overnight per Dr Krueger - continue for now * Continue to hold home lasix for now * Daily weights, strict I&O * Resume when clinically indicated * No evidence of hypervolemia, unknown CHF hx if any (4) Protein calorie malnutrition: Assessment and Plan: Acute * C/S Environmental Protection Geologist * Ensure BID (5) HTN (hypertension): Assessment and Plan: Chronic * Continue home metoprolol and amlodipine * PRN IVP Hydralazine for uncontrolled HTN (6) CAD (coronary artery disease): Assessment and Plan: Chronic * Hold home aspirin d/t profound anemia and thrombocytopenia (7) Hyperlipidemia: Assessment and Plan: Chronic * Continue home statin (8) DM2 (diabetes mellitus, type 2): Assessment and Plan: Chronic * Hold home metformin for now. * ACHS glucometer checks * Med dose SSI for glucose correction (9) A-fib: Assessment and Plan: Chronic * Continue home metoprolol for rate control * Hold home Eliquis for now d/t profound anemia and thrombocytopenia
--- NOTE | 2023-09-19 15:00 | PM.PN ---
Progress Note: Subjective Subjective Interval history: 09/19/23 1135 The patient is resting in bed visiting with her spouse. She looks a little better than yesterday but continues to feel weak. Her hemoglobin was 6.6 this morning after 2 units were transfused overnight. We will transfuse third unit of irradiated blood now. The patient was seen in consult by Dr. Krueger, heme-oncology, yesterday afternoon. He is recommending transfer to [facility] for complete workup of her acute leukemia. Dr. Krueger has been in contact with the oncology group at [facility] and they agreed to take the patient. I have already contacted [facility] myself and arranged transfer. She has been accepted in transfer by Dr. Durham of the oncology service. Unfortunately there are no beds available at this time so the patient will remain here with close monitoring of her lab values and further transfusions as indicated until a bed becomes available at [facility]. Exam Constitutional Vital Signs, click to edit/add: Last Vital Signs Temp 97.9 F 09/19/23 12:00 Pulse 69 09/19/23 12:00 Resp 18 09/19/23 12:00 BP 125/75 09/19/23 12:00 Pulse Ox 96 09/19/23 12:00 O2 Del Method Room Air 09/19/23 12:00 Common normals: no apparent distress, oriented x3 and alert General appearance: cooperative Orientation/consciousness: Yes awake Other: Pale HENMT Common normals: normocephalic, head/scalp atraumatic and hearing grossly normal bilaterally Eye Common normals: PERRL, EOMs intact bilaterally, conjunctivae normal and no scleral icterus General eye: normal appearance of both eyes Chest Common normals: inspection of chest normal Chest: symmetrical chest wall rise Respiratory Common normals: normal respiratory effort, no use of accessory muscles and clear to auscultation bilaterally Effort & inspection: able to speak in complete sentences Auscultation: clear to auscultation bilaterally Cardio Common normals: regular rate, regular rhythm, S1 normal heart sound, S2 normal heart sound, no murmurs and peripheral pulses 2+ throughout GI Common normals: Normal to inspection, nondistended, normoactive bowel sounds present, soft to palpation, non-tender and no hepatosplenomegaly Bladder/kidney exam: bladder normal to palpation Extremity Common normals: normal to inspection and no calf tenderness General: no clubbing, no cyanosis and no edema Neuro Common normals: oriented x3, CN's II-XII intact bilaterally, moves all extremities, no focal motor deficits and no sensory deficits noted Sensorium/orientation: awake and alert Psych Common normals: mental status grossly normal Progress Note: Objective Labs Labs: Short CBC 09/19/23 09/19/23 Range/Units 06:59 14:10 WBC 22.1 H 23.8 H (4.0-11.0) 10^3/uL Hgb 6.6 L* 7.8 L (12.0-16.0) g/dL Hct 20.0 L* 23.4 L* (36.0-48.0) % Plt Count 22 L* 22 L* (150-450) 10^3/uL BMP 09/19/23 09/19/23 06:59 14:10 Sodium 142 142 Potassium 3.3 L 4.0 Chloride 107 109 H Carbon Dioxide 26.5 26.0 BUN 11.0 9.0 Creatinine 0.65 0.69 Glucose 94 89 Calcium 8.0 L 7.9 L Liver Function 09/19/23 09/19/23 Range/Units 06:59 14:10 Total Bilirubin 0.4 0.4 (0.2-1.0) mg/dL AST 26 27 (15-37) U/L ALT 18 21 (14-59) U/L Alkaline Phosphatase 60 60 (46-116) U/L Albumin 2.5 L 2.5 L (3.4-5.0) g/dL Progress Note: A&P Assessment and Plan (1) Acute leukemia: Assessment and Plan: Acute 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 Discontinued by him today as WBCs have improved Improved anemia - 6.6 after 2 un PRBCs Transfuse an additional 1 un irradiated PRBCs now Check for FOB - pending collection Continue to hold Eliquis for now Repeat labs this afternoon Transfuse further units for Hgb < [address] Krueger recommendations Improved thrombocytopenia - 22,000 after 1 un platelet transfusion Repeat labs this afternoon Transfuse further units for platelets < 10,[address] Krueger recommendations C/S Dr Krueger, Hematology obtain twice daily CBC, CMP, Mag, Phos per Dr Krueger recommendation Add uric acid to AM labs today (2) UTI (urinary tract infection): Assessment and Plan: Acute Continue IVPB Rocephin daily IVPB Levaquin added for double broad spectrum coverage in an immunosupressed pt UA C&S pending (3) Dehydration: Assessment and Plan: Acute Resolved Gentle IVF given w/ NS at 100/hr overnight per Dr Krueger - continue for now Continue to hold home lasix for now Daily weights, strict I&O Resume when clinically indicated No evidence of hypervolemia, unknown CHF hx if any (4) Protein calorie malnutrition: Assessment and Plan: Acute C/S Commercial Photographer Ensure BID (5) HTN (hypertension): Assessment and Plan: Chronic Continue home metoprolol and amlodipine PRN IVP Hydralazine for uncontrolled HTN (6) CAD (coronary artery disease): Assessment and Plan: Chronic Hold home aspirin d/t profound anemia and thrombocytopenia (7) Hyperlipidemia: Assessment and Plan: Chronic Continue home statin (8) DM2 (diabetes mellitus, type 2): Assessment and Plan: Chronic Hold home metformin for now. ACHS glucometer checks Med dose SSI for glucose correction (9) A-fib: Assessment and Plan: Chronic Continue home metoprolol for rate control Hold home Eliquis for now d/t profound anemia and thrombocytopenia
[2023-09-19 16:26] LABS: Glucometer 79 mg/dL (74-106)
[2023-09-19 16:43] LABS: Blast Absolute Manual 18.56; Monocytes Absolute Manual 0.47 10^3/uL (0.30-0.80); Segmented Neut Absolute Manual 2.85 10^3/uL (1.4-6.5)
[2023-09-19 16:44] LABS: Anisocytosis 2+; Hypochromasia 2+; Poikilocytosis 1+
[2023-09-19] MEDS: ALLOPURINOL 300 MG TABLET PO (21:36)
[2023-09-19] MEDS: ATORVASTATIN CALCIUM 40 MG TABLET PO (21:36)
[2023-09-19] MEDS: CEFTRIAXONE 1,000 MG in 0.9 % SODIUM CHLORIDE 50 ML 100 MG IV (21:36)
[2023-09-19 21:46] LABS: Glucometer 98 mg/dL (74-106)
--- NOTE | 2023-09-19 23:55 | PC.NURSE ---
superior transportation arrived at 2335. RN gave report to Carolina the bus transportation manager. Pt was medicated with xanax as ordered before leaving and IVs are both saline locked. report to [facility] was given on per report from Cortney LOCKHART. Pt discharged at 2355.
== END 2023-09-19 23:55 | disposition short-term general hospital (02) | DRG 835 ==
LOC: ER 11:39 → MS 15:56
PROVIDERS: Internal Medicine Hematology & Oncology; Admitting Provider Family Medicine; Emergency Provider Student in an Organized Health Care Education/Training Program; PCP Family Medicine; Visit Provider Nurse Practitioner
DX: C92.00 Acute myeloblastic leukemia, not having achieved remission (principal); D61.818 Other pancytopenia; E46 Unspecified protein-calorie malnutrition; N39.0 Urinary tract infection, site not specified; E86.0 Dehydration; I10 Essential (primary) hypertension; I48.91 Unspecified atrial fibrillation; E11.9 Type 2 diabetes mellitus without complications; E78.5 Hyperlipidemia, unspecified; I25.10 Atherosclerotic heart disease of native coronary artery without angina pectoris; R63.4 Abnormal weight loss; Z68.29 Body mass index [BMI] 29.0-29.9, adult; Z79.82 Long term (current) use of aspirin; Z79.84 Long term (current) use of oral hypoglycemic drugs; Z79.899 Other long term (current) drug therapy; Z79.01 Long term (current) use of anticoagulants; Z91.018 Allergy to other foods; Z95.1 Presence of aortocoronary bypass graft; Z82.49 Family history of ischemic heart disease and other diseases of the circulatory system; Z85.820 Personal history of malignant melanoma of skin
CPT/HCPCS: 36415; 36430; 80053; 81001; 82728; 82948; 83010; 83540; 83550; 83615; 83735; 84100; 84550; 85007; 85027; 86850; 86900; 86901; 87040; 87086; 88184; 88185; 93005; 96361; 96365; 96366; 96367; 96368; 96375; 99285; 99999; P9016; P9035; P9038

== ENCOUNTER 2023-10-11 07:29 | Outpatient (RCR) | payer MEDICARE, SELFPAY ==
--- NOTE | 2023-10-02 10:21 | PC.NURSE ---
1000 moved from treatment room 2 to bed, complains of weakness, lightheadedness, fatigue, nausea, transferred to bed per wheelchair. vital signs obtained. 147/79 p [address] Krueger with patient discussing treatment protocol.
[2023-10-02] MEDS: 0.9 % SODIUM CHLORIDE 1,000 ML 500 ML IV (10:47)
[2023-10-02] MEDS: DEXAMETHASONE SOD PHOS 4 MG/ML VIAL 6 MG IV (10:47)
--- NOTE | 2023-10-02 10:49 | PC.NURSE ---
1030 Rt chest port accessed under sterile technique utilizing 19 ga 1 inch hernandez needle. excellent blood return noted, 10 ml wated, labs drawn sent to lab, port flushed with ns, covered with tegaderm, patient tolerated well. 1000 ml of normal saline initiated at 500ml her. dexamethasone 6 mg ivp as ordered. daughter at bedside as patient, daughter and Dr. Krueger discuss treatment regime.
[2023-10-02 11:00] LABS: Hematocrit 24.4 % (36.0-48.0); Hemoglobin 8.4 g/dL (12.0-16.0); Mean Corpuscular HGB Conc 34.4 g/dL (29.9-35.2); Mean Corpuscular Hemoglobin 29.3 pg (26.7-34.0); Red Blood Count 2.87 10^6/uL (4.20-5.40); Red Cell Distribution Width 18.9 % (11.0-15.0)
[2023-10-02 11:16] LABS: Alanine Aminotransferase 26 U/L (14-59); Albumin Globulin Ratio 0.9; Albumin Level 2.5 g/dL (3.4-5.0); Alkaline Phosphatase 95 U/L (46-116); Anion Gap 8.9; Aspartate Amino Transferase 17 U/L (15-37); BUN Creatinine Ratio 31.7; Bilirubin Total 0.9 mg/dL (0.2-1.0); Calcium 8.3 mg/dL (8.5-10.1); Carbon Dioxide 27.7 mmol/L (21.0-32.0); Chloride 104 mmol/L (98-107); Estimated GFR (African America >60 (>=60); Estimated GFR (Non-African Ame >60 (>=60); Globulin 2.7 g/dL; Glucose 124 mg/dL (74-106); Lactate Dehydrogenase 317 U/L (81-234); Sodium 138 mmol/L (136-145); Total Protein 5.2 g/dL (6.4-8.2); Uric Acid 1.4 mg/dL (2.6-6.0)
[2023-10-02 11:17] LABS: White Blood Count 0.5 10^3/uL (4.0-11.0)
[2023-10-02 11:18] LABS: Platelet Count 3 10^3/uL (150-450)
[2023-10-02 11:27] LABS: Potassium 2.6 mmol/L (3.5-5.1)
[2023-10-02 11:47] LABS: Segmented Neut Absolute Manual 0.09 10^3/uL (1.4-6.5)
[2023-10-02 11:48] LABS: Atypical Lymphocytes Abs Man 0.02; Lymphocytes Absolute Manual 0.25 10^3/uL (1.20-3.80); Monocytes Absolute Manual 0.04 10^3/uL (0.30-0.80)
[2023-10-02 11:50] LABS: Anisocytosis 1+; Ovalocytes 1+; Poikilocytosis 1+; Tear Drop Cells 1+
[2023-10-02] MEDS: POTASSIUM CHLORIDE 20 MEQ in 0.9 % SODIUM CHLORIDE 250 ML 130 MEQ IV (12:57)
--- NOTE | 2023-10-02 13:42 | PC.NURSE ---
1330 tolerating potassium infusion without any difficulty.eats grapes and peanutbutter and jelly sandwich
--- NOTE | 2023-10-02 13:43 | PC.NURSE ---
1200 ambulated to bathroom per 1 assist, voids qs dark alexis urine, then ambulates to recliner chair 3.
--- NOTE | 2023-10-02 15:08 | PC.NURSE ---
ambulates to chair 3, moves well, sl unsteady on feet. voids qs dark alexis urine. returns to recliner.
[2023-10-02] MEDS: DIPHENHYDRAMINE HCL 25 MG CAPSULE PO (15:10)
[2023-10-02] MEDS: ACETAMINOPHEN 325 MG TABLET 650 MG PO (15:10)
[2023-10-02 15:21] VITALS: BP 120/64; PULSE 65; RESP 18; TEMP 37.4; O2SAT 100
[2023-10-02 15:26] VITALS: BP 145/59; RESP 18; TEMP 37.4
--- NOTE | 2023-10-02 15:32 | PC.NURSE ---
1520 Alert oriented, skin warm and dry. respirations with ease, lungs clear to auscultation. heart tones strong and reglar.
--- NOTE | 2023-10-02 15:34 | PC.NURSE ---
1525 platelets infusing without difficulty. daughter visits with patient.
[2023-10-04] VITALS (9 sets, daily range): BP systolic 133–154; BP diastolic 54–70; PULSE 62–72; RESP 16–18; TEMP 37.1–37.3; O2SAT 99–100
[2023-10-04] MEDS: POTASSIUM CHLORIDE 20 MEQ in 0.9 % SODIUM CHLORIDE 250 ML 130 MEQ IV (10:27)
[2023-10-04 10:30] LABS: Mean Corpuscular HGB Conc 33.3 g/dL (29.9-35.2); Mean Corpuscular Hemoglobin 29.2 pg (26.7-34.0); Mean Corpuscular Volume 87.6 fL (81.0-99.0); Red Blood Count 2.26 10^6/uL (4.20-5.40); Red Cell Distribution Width 18.4 % (11.0-15.0)
[2023-10-04 10:35] LABS: White Blood Count 0.6 10^3/uL (4.0-11.0)
[2023-10-04 10:36] LABS: Hematocrit 19.8 % (36.0-48.0); Hemoglobin 6.6 g/dL (12.0-16.0)
[2023-10-04 10:37] LABS: Platelet Count 5 10^3/uL (150-450)
[2023-10-04 10:40] LABS: Alanine Aminotransferase 24 U/L (14-59); Albumin Level 2.7 g/dL (3.4-5.0); Alkaline Phosphatase 92 U/L (46-116); Anion Gap 11.8; Aspartate Amino Transferase 14 U/L (15-37); BUN Creatinine Ratio 26.7; Bilirubin Total 0.9 mg/dL (0.2-1.0); Calcium 8.4 mg/dL (8.5-10.1); Chloride 107 mmol/L (98-107); Estimated GFR (African America >60 (>=60); Estimated GFR (Non-African Ame >60 (>=60); Globulin 2.6 g/dL; Glucose 108 mg/dL (74-106); Sodium 144 mmol/L (136-145); Total Protein 5.3 g/dL (6.4-8.2)
--- NOTE | 2023-10-04 10:46 | PC.NURSE ---
1000: Pt. to [facility] via w/c accompanied by granddaughter. Assisted into recliner. VSS. Low grade temp. Using sterile technique, right ant. chest port accessed using #19 gauge Hawk needle. Flushes easily. Able to aspirate blood easily. Blood obtained for labs. Pt. tolerated without c/o. Port remains accessed for KCL infusion as ordered.
[2023-10-04 10:47] LABS: Potassium 2.8 mmol/L (3.5-5.1)
--- NOTE | 2023-10-04 10:49 | PC.NURSE ---
1027: IV KCL initiated at this time as ordered. 1035: Lab phones with critical lab results. Notified lab need for irradiated platelets and blood.
--- NOTE | 2023-10-04 11:20 | PC.NURSE ---
1055: Dr. Krueger messaged to notify of critical labs.
[2023-10-04 12:18] LABS: Acanthocytes 1+; Ovalocytes 1+; Poikilocytosis 1+
[2023-10-04 12:22] LABS: Segmented Neut Absolute Manual 0.04 10^3/uL (1.4-6.5)
[2023-10-04 12:23] LABS: Atypical Lymphocytes Abs Man 0.02; Blast Absolute Manual 0.04; Monocytes Absolute Manual 0.07 10^3/uL (0.30-0.80)
--- NOTE | 2023-10-04 12:23 | PC.NURSE ---
Pt. without c/o. Awaiting units of platelets and PRBC. Ate half of turkey sandwich and bowl of tomato soup. Assisted up to bathroom to void.
[2023-10-04] MEDS: DIPHENHYDRAMINE HCL 25 MG CAPSULE PO (12:43)
[2023-10-04] MEDS: ACETAMINOPHEN 325 MG TABLET 650 MG PO (12:43)
--- NOTE | 2023-10-04 12:46 | PC.NURSE ---
1243: Pt. medicated with Tylenol and Benadryl as ordered for pre-meds.
[2023-10-04] MEDS: 0.9 % SODIUM CHLORIDE 250 ML 10 ML IV (12:48)
--- NOTE | 2023-10-04 14:10 | PC.NURSE ---
1405: 1 unit irradiated PRBC initiated at this time. Pt. without c/o.
--- NOTE | 2023-10-04 14:30 | PC.NURSE ---
1420: Pt. tolerating infusion without c/o. VSS. Drinking water and diet coke. Denies needs.
--- NOTE | 2023-10-04 14:58 | PC.NURSE ---
Pt. assisted up to bathroom. Voids QS. Returns to chair. VSS. PRBC cont. to infuse and pt. without s&s of adverse reaction.
--- NOTE | 2023-10-04 15:41 | PC.NURSE ---
1530: PRBC infusion completed at this time. VSS. Pt. without s&s of reaction. Port site remains asymptomatic. Pt. given cookie. Drinking water. 1535: 1 unit platelets initiated at this time. Pt. on the phone talking.
--- NOTE | 2023-10-04 16:03 | PC.NURSE ---
1550: Pt. without c/o. VSS. Denies needs.
--- NOTE | 2023-10-04 16:27 | PC.NURSE ---
Platelets cont. to infuse without s&s of adverse reaction. VSS.
--- NOTE | 2023-10-04 17:01 | PC.NURSE ---
1648: Platelet infusion completed at this time. Pt. denies c/o. Port flushed with saline and Heparin. Port de-accessed. Trace bleeding to site. Covered with cotton and tape. Pt. assisted to w/c. Daughter present. 1654: Pt. taken to car via w/c and d/c'd home with daughter.
[2023-10-09] VITALS (10 sets, daily range): BP systolic 122–166; BP diastolic 60–81; PULSE 67–79; RESP 16–20; TEMP 36.4–38.6; O2SAT 95–98
--- NOTE | 2023-10-09 08:26 | PC.NURSE ---
0810 Arrival per wheelchair with daughter for oncology office visit. 0820 rt chest port accessed using 19 ga 1 inch hernandez. excellent blood return noted, labs drawn and sent. tegaderm applied to site. tolerated well.
[2023-10-09 08:40] LABS: Mean Corpuscular HGB Conc 32.9 g/dL (29.9-35.2); Mean Corpuscular Hemoglobin 28.8 pg (26.7-34.0); Mean Corpuscular Volume 87.7 fL (81.0-99.0); Red Blood Count 2.36 10^6/uL (4.20-5.40); Red Cell Distribution Width 16.3 % (11.0-15.0)
[2023-10-09 08:54] LABS: Alanine Aminotransferase 22 U/L (14-59); Albumin Globulin Ratio 0.9; Albumin Level 2.6 g/dL (3.4-5.0); Alkaline Phosphatase 109 U/L (46-116); Anion Gap 13.9; Aspartate Amino Transferase 17 U/L (15-37); BUN Creatinine Ratio 15.9; Bilirubin Total 1.1 mg/dL (0.2-1.0); Calcium 8.4 mg/dL (8.5-10.1); Carbon Dioxide 27.3 mmol/L (21.0-32.0); Chloride 105 mmol/L (98-107); Estimated GFR (African America >60 (>=60); Estimated GFR (Non-African Ame >60 (>=60); Glucose 157 mg/dL (74-106); Potassium 3.2 mmol/L (3.5-5.1); Sodium 143 mmol/L (136-145); Total Protein 5.6 g/dL (6.4-8.2)
[2023-10-09 08:57] LABS: White Blood Count 0.4 10^3/uL (4.0-11.0)
[2023-10-09 08:58] LABS: Hematocrit 20.7 % (36.0-48.0); Hemoglobin 6.8 g/dL (12.0-16.0); Platelet Count 3 10^3/uL (150-450)
[2023-10-09] MEDS: DIPHENHYDRAMINE HCL 25 MG CAPSULE PO (09:21)
[2023-10-09] MEDS: ACETAMINOPHEN 325 MG TABLET 650 MG PO (09:21)
--- NOTE | 2023-10-09 09:26 | PC.NURSE ---
0900 to chair 2 with wheelchair. 0910 NS flush initiated prior to blood transfusion Alert oriented. color pale warm dry. patient relates to having chillls on and off. heart tones regular/murmur noted. lungs clear to ausculatation. daughter at chairside.
--- NOTE | 2023-10-09 10:09 | PC.NURSE ---
1005 Dr. Krueger notified of T101.5 speaks to patient and daughter about possible obs status, will observe and see how she does before making a decision.
[2023-10-09 10:22] LABS: Lymphocytes Absolute Manual 0.35 10^3/uL (1.20-3.80); Monocytes Absolute Manual 0.03 10^3/uL (0.30-0.80); Segmented Neut Absolute Manual 0.01 10^3/uL (1.4-6.5)
[2023-10-09 10:23] LABS: Anisocytosis 1+; Hypochromasia 2+; Ovalocytes 1+
--- NOTE | 2023-10-09 11:03 | PC.NURSE ---
tolerating prbc's witout s/s of reaction. drinks bottle of water and cranberry juice. to Bathroom using wheelchair, void qs drk alexis urine. returned to recliner using wheelchair
--- NOTE | 2023-10-09 12:37 | PC.NURSE ---
1230 prbc's infused, patient tolerated well. platelets initiated as ordered. patient tolerating well, see TAR
--- NOTE | 2023-10-09 14:22 | PC.NURSE ---
1400 platlets transfused NS flush began. 1410 NS discontinued, port heplock flushed. deaccessed port,pressure held x [address] Krueger notified of patient temp, and assessment, hewouldlike patient to go to ER and be seen for febrile neutropenia, however if patient insists on going home, draw blood cultures x 2, urinalysis and C/S and portable chest x ray. discussed this with patient and family, patient and daughter still want to go home, and stated if she spikes another fever they would return to the ER. 1410 blood cultures obtained from chest port. 1415 ambulated to bathroom per assist of 1, voids qs dark alexis urine, sent to lab. patient returned to recline with assist of 1. lab called for blood cultures.
[2023-10-09 14:40] LABS: Bilirubin Urine NEGATIVE (NEGATIVE); Blood Urine SMALL (NEGATIVE); Clarity Urine CLEAR (CLEAR); Color Urine LT. YELLOW (YELLOW); Glucose Urine UA NEGATIVE (NEGATIVE); Ketones Urine NEGATIVE (NEGATIVE); Leukocyte Esterase Urine NEGATIVE (NEGATIVE); Nitrite Urine NEGATIVE (NEGATIVE); Protein Urine NEGATIVE (NEG/TRACE); Specific Gravity Urine 1.015 (1.005-1.025)
--- NOTE | 2023-10-09 15:19 | XR_ITS ---
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 VASCULATURE: No increased pulmonary vasculature. PLEURA: Mild blunting of costophrenic angles bilaterally. CARDIAC: Stable mild cardiomegaly. Prior sternotomy. MEDIASTINUM: No visible mass or adenopathy. BONES: No fracture or visible bone lesion. OTHER: Port-A-Cath projecting over right hemithorax with tip in right atrium. XR/XR chest 2V IMPRESSION: 1. Blunting of costophrenic angle; small bilateral pleural effusions versus hyper expanded lungs. Small pleural effusions are suspected. 2. No appreciable infiltrates. 3. Stable cardiomegaly. Electronically authenticated by: PEGGY CORONEL Date: 10/10/2023 07:46
--- NOTE | 2023-10-09 15:35 | PC.NURSE ---
1450 Lab in for 2nd blood culture, lab unable to obtain cultures on 2 attempts. 1500 to xray per wheelchair. 1515 returned to [facility] department. 1520 released per wheelchair to private auto with garcía
[2023-10-11] MEDS: 0.9 % SODIUM CHLORIDE 250 ML 10 ML IV (10:15)
[2023-10-11 10:23] LABS: Mean Corpuscular HGB Conc 33.5 g/dL (29.9-35.2); Mean Corpuscular Hemoglobin 28.8 pg (26.7-34.0); Mean Platelet Volume 11.1 fL (9.5-13.5); Red Blood Count 2.29 10^6/uL (4.20-5.40); Red Cell Distribution Width 16.3 % (11.0-15.0)
[2023-10-11 10:25] LABS: White Blood Count 0.4 10^3/uL (4.0-11.0)
[2023-10-11 10:26] LABS: Hematocrit 19.7 % (36.0-48.0); Hemoglobin 6.6 g/dL (12.0-16.0); Platelet Count 7 10^3/uL (150-450)
[2023-10-11 10:28] VITALS: TEMP 37.4
[2023-10-11] MEDS: ACETAMINOPHEN 325 MG TABLET 650 MG PO (10:28)
[2023-10-11] MEDS: diphenhydrAMINE HCL 25 MG in 0.9 % SODIUM CHLORIDE 100 ML 301.5 MG IV (10:29)
[2023-10-11] MEDS: DIPHENHYDRAMINE HCL 50 MG/ML (1ML) VIAL 25 MG IV (10:29)
[2023-10-11 10:32] VITALS: BP 150/85; PULSE 77; RESP 18; TEMP 37.4; O2SAT 97
[2023-10-11 10:41] LABS: Alanine Aminotransferase 22 U/L (14-59); Albumin Globulin Ratio 0.8; Albumin Level 2.4 g/dL (3.4-5.0); Alkaline Phosphatase 108 U/L (46-116); Anion Gap 12.7; Aspartate Amino Transferase 15 U/L (15-37); BUN Creatinine Ratio 19.3; Bilirubin Total 0.8 mg/dL (0.2-1.0); Calcium 8.1 mg/dL (8.5-10.1); Carbon Dioxide 27.2 mmol/L (21.0-32.0); Chloride 105 mmol/L (98-107); Estimated GFR (African America >60 (>=60); Estimated GFR (Non-African Ame >60 (>=60); Glucose 133 mg/dL (74-106); Sodium 142 mmol/L (136-145); Total Protein 5.4 g/dL (6.4-8.2)
[2023-10-11 10:44] LABS: Potassium 2.9 mmol/L (3.5-5.1)
[2023-10-11 10:54] LABS: Lymphocytes Absolute Manual 0.36 10^3/uL (1.20-3.80); Monocytes Absolute Manual 0.03 10^3/uL (0.30-0.80)
[2023-10-11 10:59] VITALS: BP 150/85; PULSE 77; RESP 18; TEMP 37.4; O2SAT 97
--- NOTE | 2023-10-11 11:02 | PC.NURSE ---
1005: Pt. to [facility] via w/c accompanied by daughter. Assisted to recliner. VSS. Using sterile technique, Right ant. chest port accessed with 19 gauge hernandez needle without difficulty per RICHY Berger. Flushes easily with good blood return with aspiration. Pt. tolerated without c/o. Blood obtained and sent to lab. Port site purple/pink in color with slight edema. Appears less edematous than last visit. Purple color turning to more of a bruised appearance from last visit as well. Hernandez in place with large opsite dressing.
--- NOTE | 2023-10-11 11:07 | PC.NURSE ---
1028: Critical labs called to RICHY Berger. Pt. given pre-transfusion meds as ordered at this time. 1034: 1 unit PRBC initiated at this time. Pt. without c/o pain, n/v or dyspnea. Given cranberry juice as requested. 1050: VSS. Tolerating blood without c/o.
--- NOTE | 2023-10-11 11:41 | PC.NURSE ---
1140: Pt. given lunch tray. VSS. Denies c/o. Daughter at chair side.
[2023-10-11 12:04] VITALS: BP 150/84; PULSE 75; TEMP 37.4; O2SAT 97
--- NOTE | 2023-10-11 12:14 | PC.NURSE ---
1200: PRBC infusion completed at this time without transfusion reaction. VSS. 1205: 1 unit platelets initiated at this time. Pt ate 100% of lunch without c/o n/v. Assisted up to bathroom to void. 1211: Returns to chair. Denies needs.
--- NOTE | 2023-10-11 12:42 | PC.NURSE ---
1231: Dr. Krueger phoned and notified of pt. potassium level. New order obtained. Pt. aware. Instructed to increase potassium to twice daily x's 2 days then resume back to once daily. Pt. given verbal and written instruction.
[2023-10-11 13:00] VITALS: BP 144/75; PULSE 82; TEMP 37.3
--- NOTE | 2023-10-11 13:03 | PC.NURSE ---
1300: Pt. without c/o. VSS.
[2023-10-11] MEDS: POTASSIUM CHLORIDE 20 MEQ in 0.9 % SODIUM CHLORIDE 250 ML 130 MEQ IV (13:14)
--- NOTE | 2023-10-11 13:42 | PC.NURSE ---
Up to bathroom to void with assist.
--- NOTE | 2023-10-11 14:08 | PC.NURSE ---
Pt. without change. IV potassium infusing without c/o.
[2023-10-11] MEDS: HEPARIN SODIUM (PORCINE) PF LOCK FLUSH 500 UNIT/5 ML SYRINGE IV (14:15)
[2023-10-11 14:36] VITALS: BP 152/85; PULSE 85; TEMP 37.7; O2SAT 96
--- NOTE | 2023-10-11 14:42 | PC.NURSE ---
1435: Pt. relays feeling chilly . Warm blanket provided. VSS. IV KCL infusing. Will cont. to monitor closely. States This happens when I get overly tired.
--- NOTE | 2023-10-11 14:51 | PC.NURSE ---
1447: Dr. Krueger texted to notify of pt. c/o chills. Vitals remain stable. No c/o dyspnea, chest pain or n/v.
--- NOTE | 2023-10-11 15:35 | PC.NURSE ---
1505: Spoke with Dr. Krueger. Notified of sudden onset of shaking and chills. Instructs this RN to obtain blood culture from port and transfer to ED. Pt. notified. Blood culture obtained from port, sent to lab. 1520:Pt transported to ED via w/c. Granddaughter present. Report given to Yehuda Ramos RN and Dr. Velásquez. Care relinquished.
== END 2023-10-14 23:59 | disposition home or self-care (01) ==
LOC: INF 07:29
PROVIDERS: PCP Family Medicine; Visit Provider Internal Medicine Hematology & Oncology
DX: C92.00 Acute myeloblastic leukemia, not having achieved remission (principal); R11.2 Nausea with vomiting, unspecified; I25.10 Atherosclerotic heart disease of native coronary artery without angina pectoris; E78.5 Hyperlipidemia, unspecified; E11.9 Type 2 diabetes mellitus without complications; I48.91 Unspecified atrial fibrillation; Z79.01 Long term (current) use of anticoagulants; Z95.1 Presence of aortocoronary bypass graft; Z85.820 Personal history of malignant melanoma of skin
CPT/HCPCS: 36415; 36430; 36591; 71046; 80053; 81003; 83615; 84550; 85007; 85027; 86850; 86900; 86901; 87040; 87086; 96365; 96366; 96374; 99999; G0463; J1094; J3480; P9035; P9038

== ENCOUNTER 2023-10-11 15:17 | Inpatient (IN) | payer MEDICARE, SELFPAY ==
[2023-10-11] VITALS (8 sets, daily range): BP systolic 113–200; BP diastolic 65–100; PULSE 71–94; TEMP 36.8–37.9; O2SAT 91–96; BMI 27.5; BMI 27.7
--- NOTE | 2023-10-11 15:24 | XR_ITS ---
The [address] [address] Patient Name: DIANA HINOJOSA MRN: [id number] date: 1940 Sex: F Assigned Patient Location: ER Current Patient Location: ER Accession/Order Number: [id number] Exam Date: 10/11/2023 16:02 Report Date: 10/11/2023 16:25 At the request of: MADDISON GARDNER Procedure: XR chest 1V EXAMINATION: XR chest 1V HISTORY: Neutropenic fever COMPARISON: 10/09/2023 TECHNIQUE: AP portable FINDINGS: LUNGS: Multiple moderate bibasilar infiltrates, significantly increased VASCULATURE: Mildly increased pulmonary vasculature, worsening since the prior exam. PLEURA: No pneumothorax, effusion, or pleural thickening. CARDIAC: Marked cardiomegaly MEDIASTINUM: No visible mass or adenopathy. Aortic atherosclerosis. Median sternotomy wires BONES: No fracture or visible bone lesion. OTHER: Accessed right Port-A-Cath, the tip projects of the distal superior vena cava XR/XR chest 1V IMPRESSION: New mild/moderate bibasilar infiltrates, atelectasis versus pneumonia Pulmonary vascular congestion, increased Electronically authenticated by: BYRON QUINTERO Date: 10/11/2023 16:25
--- NOTE | 2023-10-11 15:24 | ECG_ITS ---
The [facility] Test Date: 2023-10-11 Pat Name: DIANA HINOJOSA Department: Room: - Gender: Female [employer]: : 1940 Requested By: RORY WEST Order Number: [id number] Reading MD: RORY WEST Measurements Intervals [place] Rate: 83 P: -[id number] ID: [id number] QRS: -47 QRSD: 80 T: -62 QT: 348 QTc: 388 Interpretive Statements Sinus wtih first degree AV block [address] depression, probably digitalis effect 9150 abnormal ECG Electronically Signed On 10-12-2023 6:21:20 EDT by RORY WEST
--- NOTE | 2023-10-11 15:25 | ED.GENADUL1 ---
HPI HPI - General Adult General Chief complaint: Fever Stated complaint: poss infection Time Seen by Provider: 10/11/23 15:18 History of Present Illness HPI narrative: 83-year-old female presents to the emergency department to be admitted because of neutropenic fever. She has a history of cancer and is undergoing chemotherapy. Today she had a platelet transfusion as well as a blood transfusion and subsequently developed chills and she had a temperature of 100 degrees. She was sent here from the infusion center to be admitted. She has a slight cough. Related Data Home Medications ?Medication ?Instructions ?Recorded ?Confirmed amlodipine 5 mg tablet 5 mg PO Q24H 09/18/23 10/11/23 apixaban 5 mg tablet (Eliquis) 5 mg PO Q12H 09/18/23 10/02/23 aspirin 81 mg tablet,delayed 81 mg PO DAILY 09/18/23 10/11/23 release (Adult Aspirin Regimen) atorvastatin 40 mg tablet 40 mg PO Q24H 09/18/23 10/02/23 furosemide 20 mg tablet 20 mg PO Q12H 09/18/23 10/02/23 metformin 500 mg tablet 500 mg PO Q12H 09/18/23 10/02/23 metoprolol tartrate 25 mg tablet 25 mg PO Q12H 09/18/23 10/11/23 acyclovir 400 mg tablet 400 mg PO Q12H 10/11/23 10/11/23 allopurinol 300 mg tablet 300 mg PO DAILY 10/11/23 10/11/23 alprazolam 0.5 mg tablet 0.5 mg PO .Q12hr 10/11/23 10/11/23 levofloxacin 500 mg tablet 500 mg PO Q24H 10/11/23 10/11/23 posaconazole 100 mg tablet,delayed 300 mg PO Q24H 10/11/23 10/11/23 release potassium chloride 20 mEq 20 meq PO DAILY 10/11/23 10/11/23 tablet,extended release venetoclax 100 mg tablet 100 mg PO Q24H 10/11/23 10/11/23 (Venclexta) Allergies Allergy/AdvReac Type Severity Reaction Status Date / Time ORANGES AdvReac Uncoded 10/11/23 15:49 Opioid HPI Opioid Management Most Recent Opioid Data: Last Pain Scale 8 10/11/23 16:46 Last Pain Assessment 09/19/23 23:00 Last MAR Pain Assessment 10/11/23 16:46 Review of Systems ROS Narrative A ten point review of systems is negative except as noted above. PFSH PFSH Medical History (Updated 10/11/23 @ 16:59 by Blake Velásquez MD) Malignancy ?C80.1 - Malignant (primary) neoplasm, unspecified (ICD-10) A-fib ?I48.91 - Unspecified atrial fibrillation (ICD-10) HTN (hypertension) ?I10 - Essential (primary) hypertension (ICD-10) CAD (coronary artery disease) ?I25.10 - Atherosclerotic heart disease of [place] coronary artery without angina pectoris (ICD-10) Hyperlipidemia ?E78.5 - Hyperlipidemia, unspecified (ICD-10) DM2 (diabetes mellitus, type 2) ?E11.9 - Type 2 diabetes mellitus without complications (ICD-10) Surgical History (Updated 09/19/23 @ 12:34 by Ila Barry NP) S/P CABG x 4 ?Z95.1 - Presence of aortocoronary bypass graft (ICD-10) Social History Smoking status: Never smoker Highest level of school completed/degree received: some college, no degree Do you think of yourself as: straight/heterosexual Gender Identity: female Exam Narrative Exam Narrative: Nurses note and vital signs reviewed and patient is not hypoxic. General: The patient appears weak and frail. Skin: Warm, dry, no pallor noted. There is no rash noted. Head: Normocephalic, atraumatic Eye: Normal conjunctiva, no drainage Ears, Nose, Mouth, and Throat: oral mucosa is moist. Nares patent. Cardiovascular: Regular Rate and Rhythm Respiratory: Patient is in no distress, no accessory muscle use, lungs are clear to auscultation, no wheezing, rales or rhonchi Back: non-tender GI: Soft and nontender Musculoskeletal: The patient has no evidence of calf tenderness, no pitting edema, symmetrical pulses noted bilaterally Neurological: A&O, normal speech, tremorous Psychiatric: Cooperative Constitutional Vital Signs, click to edit/add: Last Vital Signs Temp 100.3 F 10/11/23 15:25 Pulse 89 10/11/23 15:25 Resp 20 10/11/23 15:25 BP 160/78 H 10/11/23 16:36 Pulse Ox 96 10/11/23 15:25 O2 Del Method Room Air 10/11/23 15:25 Course Vital Signs Vital signs: Vital Signs Temperature 100.3 F 10/11/23 15:25 Pulse Rate 89 10/11/23 15:25 Respiratory Rate 20 10/11/23 15:25 Blood Pressure 200/100 H 10/11/23 15:25 Pulse Oximetry 96 10/11/23 15:25 Oxygen Delivery Method Room Air 10/11/23 15:25 Temperature 100.3 F 10/11/23 15:25 Pulse Rate 89 10/11/23 15:25 Respiratory Rate 20 10/11/23 15:25 Blood Pressure 160/78 H 10/11/23 16:36 Pulse Oximetry 96 10/11/23 15:25 Oxygen Delivery Method Room Air 10/11/23 15:25 Medical Decision Making MDM Narrative Medical decision making narrative: The source of her fever is uncertain at this point. Blood cultures are pending. The patient did have a blood transfusion and the possibility that this elevated body temperature was due to the blood transfusion is entertained. She is being admitted with IV antibiotics. Findings are discussed with the patient and her family. Differential Diagnosis Differential Diagnosis: Blood transfusion reaction, pneumonia, UTI, viral infection Lab Data Lab results reviewed: Yes I reviewed the patient's lab results Labs: Lab Results 10/11/23 Range/Units 15:45 WBC 0.9 L* (4.0-11.0) 10^3/uL RBC 3.08 L (4.20-5.40) 10^6/uL Hgb 8.9 L (12.0-16.0) g/dL Hct 26.6 L (36.0-48.0) % MCV 86.4 (81.0-99.0) fL MCH 28.9 (26.7-34.0) pg MCHC 33.5 (29.9-35.2) g/dL RDW 15.8 H (11.0-15.0) % Plt Count 18 L* (150-450) 10^3/uL MPV 9.6 (9.5-13.5) fL Neut % (Auto) 1.1 L (43.0-75.0) % Lymph % (Auto) 89.7 H (20.5-60.0) % Kimble % (Auto) 9.2 (1.7-12.0) % Eos % (Auto) 0.0 L (0.9-7.0) % Baso % (Auto) 0.0 L (0.2-2.0) % Neut # (Auto) 0.0 L (1.4-6.5) 10^3/uL Lymph # (Auto) 0.8 L (1.2-3.8) 10^3/uL Kimble # (Auto) 0.1 L (0.3-0.8) 10^3/uL Eos # (Auto) 0.0 (0.0-0.7) 10^3/uL Baso # (Auto) 0.0 (0.0-0.1) 10^3/uL Abs Immat Gran (auto) 0.00 (0.00-0.03) 10^3/uL Imm/Tot Granulo (auto) 0.0 (0.0-0.5) % Sodium 141 (136-145) mmol/L Potassium 3.5 (3.5-5.1) mmol/L Chloride 105 (98-107) mmol/L Carbon Dioxide 22.5 (21.0-32.0) mmol/L Anion Gap 17.0 BUN 9.0 (7.0-18.0) mg/dL Creatinine 0.65 (0.55-1.02) mg/dL Est GFR ( Amer) >60 (>=60) Est GFR (Non-Af Amer) >60 (>=60) BUN/Creatinine Ratio 13.8 Glucose 134 H (74-106) mg/dL Calcium 8.2 L (8.5-10.1) mg/dL Adenovirus (PCR) Not detected (NOT DETECTE) C. pneumoniae DNA (PCR) Not detected (NOT DETECTE) Coronavirus Type OC43 Not detected (NOT DETECTE) Coronavirus Type HKU1 Not detected (NOT DETECTE) Coronavirus Type 229E Not detected (NOT DETECTE) Coronavirus Type NL63 Not detected (NOT DETECTE) Human Metapneumovir PCR Not detected (NOT DETECTE) M. pneumoniae (PCR) Not detected (NOT DETECTE) Parainfluenza PCR Not detected (NOT DETECTE) Parainfluenza 2 (PCR) Not detected (NOT DETECTE) Parainfluenza 3 (PCR) Not detected (NOT DETECTE) Parainfluenza 4 (PCR) Not detected (NOT DETECTE) RSV (RT-PCR) Not detected (NOT DETECTE) Entero/Rhino (PCR) Not detected (NOT DETECTE) SARS-CoV-2 (PCR) Not detected (NOT DETECTE) Bordetella pertussis (PCR) Not detected (NOT DETECTE) B parapertussis DNA PCR Not detected (NOT DETECTE) Influenza Type A (PCR) Not detected (NOT DETECTE) Influenza Type B (PCR) Not detected (NOT DETECTE) Imaging Data Chest x-ray: Radiologist's impression: ITS Impressions Chest X-Ray 10/11/23 15:24 IMPRESSION: New mild/moderate bibasilar infiltrates, atelectasis versus pneumonia Pulmonary vascular congestion, increased Electronically authenticated by: BYRON QUINTERO Date: 10/11/2023 16:25 Discharge Plan Discharge Chief Complaint: Fever Clinical Impression: Neutropenic fever Patient Disposition: Admitted as Observation Time of Disposition Decision: 16:59 Condition: Good
[2023-10-11 15:54] LABS: Adenovirus NOT DETECTED (NOT DETECTE); Bordetella parapertussis NOT DETECTED (NOT DETECTE); Coronavirus 229E NOT DETECTED (NOT DETECTE); Coronavirus HKU1 NOT DETECTED (NOT DETECTE); Coronavirus NL63 NOT DETECTED (NOT DETECTE); Coronavirus OC43 NOT DETECTED (NOT DETECTE); Human Metapneumovirus NOT DETECTED (NOT DETECTE); Human Rhinovirus/Enterovirus NOT DETECTED (NOT DETECTE); Influenza A NOT DETECTED (NOT DETECTE); Influenza B NOT DETECTED (NOT DETECTE); Mycoplasma pneumoniae NOT DETECTED (NOT DETECTE); Parainfluenza Virus 1 NOT DETECTED (NOT DETECTE); Parainfluenza Virus 2 NOT DETECTED (NOT DETECTE); Parainfluenza Virus 3 NOT DETECTED (NOT DETECTE); Parainfluenza Virus 4 NOT DETECTED (NOT DETECTE); Respiratory Syncytial Virus NOT DETECTED (NOT DETECTE); SARS-CoV-2 NOT DETECTED (NOT DETECTE)
[2023-10-11 15:57] LABS: Hematocrit 26.6 % (36.0-48.0); Hemoglobin 8.9 g/dL (12.0-16.0); Lymphocytes Absolute Auto 0.8 10^3/uL (1.2-3.8); Lymphocytes Percent Auto 89.7 % (20.5-60.0); Mean Corpuscular HGB Conc 33.5 g/dL (29.9-35.2); Mean Corpuscular Hemoglobin 28.9 pg (26.7-34.0); Mean Corpuscular Volume 86.4 fL (81.0-99.0); Mean Platelet Volume 9.6 fL (9.5-13.5); Monocytes Absolute Auto 0.1 10^3/uL (0.3-0.8); Monocytes Percent Auto 9.2 % (1.7-12.0); Neutrophils Percent Auto 1.1 % (43.0-75.0); Red Blood Count 3.08 10^6/uL (4.20-5.40); Red Cell Distribution Width 15.8 % (11.0-15.0)
[2023-10-11 15:59] LABS: Platelet Count 18 10^3/uL (150-450); White Blood Count 0.9 10^3/uL (4.0-11.0)
[2023-10-11] MEDS: ONDANSETRON PF 4 MG/2 ML VIAL IV (16:03)
[2023-10-11 16:04] LABS: BUN Creatinine Ratio 13.8; Calcium 8.2 mg/dL (8.5-10.1); Carbon Dioxide 22.5 mmol/L (21.0-32.0); Chloride 105 mmol/L (98-107); Estimated GFR (African America >60 (>=60); Estimated GFR (Non-African Ame >60 (>=60); Glucose 134 mg/dL (74-106); Potassium 3.5 mmol/L (3.5-5.1); Sodium 141 mmol/L (136-145)
[2023-10-11] MEDS: ACETAMINOPHEN 325 MG TABLET 650 MG PO ×2 (16:46→20:35)
[2023-10-11] MEDS: CEFTAZIDIME 2,000 MG in 0.9 % SODIUM CHLORIDE 100 ML 200 MG IV (16:47)
[2023-10-11 17:40] LABS: Bilirubin Urine NEGATIVE (NEGATIVE); Blood Urine SMALL (NEGATIVE); Clarity Urine CLEAR (CLEAR); Color Urine YELLOW (YELLOW); Glucose Urine UA NEGATIVE (NEGATIVE); Ketones Urine TRACE mg/dL (NEGATIVE); Leukocyte Esterase Urine NEGATIVE (NEGATIVE); Nitrite Urine NEGATIVE (NEGATIVE); Protein Urine 100 mg/dL (NEG/TRACE); Specific Gravity Urine >=1.030 (1.005-1.025); pH Urine 6.5 (5.0-9.0)
[2023-10-11 17:48] LABS: Bacteria Urine TRACE #/HPF (NONE SEEN); Cast Seen? NONE SEEN #/LPF (NONE SEEN); Crystals Seen? None Seen #/HPF (None Seen); Mucus Urine TRACE (NONE SEEN); Squamous Epithelial Cell Urine RARE #/LPF (NONE/RARE); WBC Urine NONE SEEN #/HPF (NONE SEEN)
--- OUTSIDE RECORDS SUMMARY | 2023-10-11 18:13 | XMS_ITS | CCD ---
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 Name Role Phone PEYTON Villanueva Attending Provider DARBY HAMLIN Primary Care Unavailable BIBI, DR MATTHEWS Attending Unavailable MISC, DR BATISTA Consulting Unavailable BIBI, DR MATTHEWS Admitting Unavailable BOUBACAR DARBY KYRIE Primary Care Unavailable MOUKARBEL, DR ELLIOTT Consulting Unavailable MOUKARBEL, DR ELLIOTT Admitting Unavailable MOUKARBEL, DR ELLIOTT Attending [facility]available [facility] Care Unavailable BARAZI, VIVIANE Admitting Unavailable BARBRADIVIVIANE Attending Unavailable BARBRADISTACYNY Consulting Unavailable [facility] Unavailable BARAZI, VIVIANE Admitting Unavailable BARAZISTACYNY Attending Unavailable BARBRADISTACYNY Consulting Unavailable REDDING ., DR ANA ROSA Arnold Primary Care Unavailable VIVIAEN ORTEZ Attending Unavailable BARVIVIANE JIMENES Consulting Unavailable BARBRADI, VIVIANE Admitting Unavailable HOY ., DR VALADEZ Admitting Unavailable HOY ., DR VALADEZ Attending Unavailable HOY ., DR VALADEZ Consulting Unavailable [facility] Primary Care Unavailable COPPEROPOLIS, DR BYRON Pyle Consulting Unavailable GRECHNY ., EDWIN WHEAT Consulting Unavailevie REDDING ., DR ANA ROSA Arnold Primary Care Unavailable BARAZI, VIVIANE Attending Unavailable BARAZI, VIVIANE Admitting Unavailable MISC, DR BATISTA Admitting Unavailable REDDING ., DR ANA ROSA Arnold Primary Care Unavailable MISC, DR BATISTA Attending Unavailable MISC, DR BATISTA Consulting Unavailable Darby Hamlin. Primary Care Physician LEXI PURCELL Attending Unavailable HERONUKALEXI BIRMINGHAM Attending Unavailable BARVIVIANE JIMENES Attending Unavailable SATNAM ZAPATA Attending Unavailable LEXI PURCELL Attending Unavailable VIVIANE ORTEZ Attending Unavailable Ana Rosa Redding MD Primary Care Provider NON STAFF Admitting Unavailable NON STAFF Attending Unavailable REDDING, ANA ROSA EDWARD Primary Care Unavailable BRETT RORY Juarez Referring Unavailable LAMBERTO ECHAVARRIA Attending Unavailable LAMBERTO ECHAVARRIA Admitting Unavailable MD Darby Hamlin Attending Unavailable MD Darby Hamlin Attending Unavailable MD Darby Hamlin Attending Unavailable MD Darby Hamlin Attending Unavailable MD Darby Hamlin Attending Unavailable MD Darby Hamlin Attending Unavailable MD Darby Hamlin Attending Unavailable MD Darby Hamlin Admitting Unavailable MD Darby Hamlin Attending Unavailable MD Darby Hamlin Admitting Unavailable MD Darby Hmalin Attending Unavailable Jose, ROUTE SALES PERSON Aurea L Attending Unavailable Jose, ROUTE SALES PERSON Aurea L Admitting Unavailable MD Darby Hamlin Admitting Unavailable MD Darby Hamlin Attending Unavailable MD Darby Hamlin Attending Unavailable Allergies Allergy Classification Reported Allergen(s) Allergy Type Date of Onset Reaction(s) Facility (1 source) lipotropic agents Drug Allergy 3 [facility] Repository (4 sources) Ascorbic Acid; Translations: [ascorbic acid] Drug Allergy Unknown (qualifier value) [facility] (5 sources) Spironolactone; Translations: [spironolactone ] Drug Allergy 3 Eruption of skin (disorder) [facility] (1 source) Angiotensin Converting Enzyme (Sal) Inhibitors; Translations: [ASL INHIBITORS] Propensity to adverse reactions to drug (disorder) 2 [facility] Repository (1 source) Ascorbic Acid; Translations: [ASCORBIC ACID (VITAMIN C)] Drug Allergy 3 [facility] Repository (1 source) [place] bioflavonoids; Translations: [CITRUS BIOFLAVONOIDS] Propensity to adverse reactions to drug (disorder) 3 [facility] Repository (1 source) Losartan; Translations: [LOSARTAN] Drug Allergy 2 [facility] Repository (1 source) CITRUS AND DERIVATIVES; Translations: [CITRUS AND DERIVATIVES] Propensity to adverse reactions to drug (disorder) 2 [facility] Repository (8 sources) [place] fruit; Translations: [CITRUS FRUITS] Food Allergy 2 Intolerance [facility] Medications Current Medications Medication Drug Class(es) Dates Sig (Normalized) Sig (Original) allopurinol 300 mg oral tablet (1 source) Xanthine Oxidase Inhibitor Start: 09-30-2023 End: 10-30-2023 take 1 tablet by mouth once daily allopurinol (ZYLOPRIM) 300 mg tablet Take 1 tablet by mouth once daily. 30 tablet 0 09/30/2023 10/30/2023 Active Comment on above: Take 1 tablet by whitley th once daily. amiodarone hydrochloride 200 mg oral tablet (2 sources) Antiarrhythmic Start: 11-14-2022 take 1 tablet by mouth once daily amiodarone 200 mg Tab 200 mg = 1 tab(s), Oral, Daily, # 30 tab(s), Refills(s) 0 Start Date: 11/14/22 Status: Ordered amLODIPine 5 mg oral tablet (3 sources) Dihydropyridine Calcium Channel Alicia Start: 08-31-2023 amLODIPine 5 mg Tab 5 mg = 1 tab(s), Oral, Daily, 90 tab(s), 0 Refill(s), Refills(s) 0 Start Date: 08/31/23 Status: Ordered Start: 11-14-2022 take 1 tablet by whitley th once daily amLODIPine 10 mg Tab 10 mg = 1 tab(s), Oral, Daily, Refills(s) 0 Start Date: 11/14/22 Status: Ordered apixaban 5 mg oral tablet (3 sources) Factor Xa Inhibitor Start: 11-14-2022 take 1 tablet by mouth twice daily Eliquis 5 mg oral tablet 5 mg = 1 tab(s), Oral, BID, Refills(s) 0 Start Date: 11/14/22 Status: Ordered aspirin 81 mg delayed release oral tablet (9 sources) Platelet Aggregation Inhibitor, Nonsteroidal Anti-inflammatory Drug Start: 11-14-2022 take 1 tablet by mouth once daily aspirin 81 mg Oral EC Tab 81 mg = 1 tab(s), Oral, Daily, Refills(s) 0 Start Date: 11/14/22 Status: Ordered Comment on above: Take 81 mg by mouth once daily. atorvastatin 40 mg oral tablet (3 sources) HMG-CoA Reductase Inhibitor Start: 08-31-2023 take 1 tablet by mouth once daily atorvastatin 40 mg Tab 40 mg = 1 tab(s), Oral, Daily, Refills(s) 0 Start Date: 08/31/23 Status: Ordered Start: 11-14-2022 take 1 tablet by whitley th once daily atorvastatin 40 mg Tab 40 mg = 1 tab(s), Oral, Daily, Refills(s) 0 Start Date: 11/14/22 Status: Ordered fluocinolone acetonide 0.1 mg/ml topical oil (2 sources) Corticosteroid Start: 12-12-2022 fluocinolone topical 0.01% oil Refill(s) 0 Start Date: 12/12/22 Status: Ordered furosemide 40 mg oral tablet (2 sources) Loop Diuretic Start: 12-12-2022 take 1 tablet by mouth once daily furosemide 40 mg Tab 40 mg = 1 tab(s), Oral, Daily, # 30 tab(s), Refills(s) 0 Start Date: 12/12/22 Status: Ordered metFORMIN hydrochloride 500 mg oral tablet (2 sources) Biguanide Start: 11-14-2022 take 1 tablet by mouth twice daily metformin 500 mg Tab 500 mg = 1 tab(s), Oral, BID, # 180 tab(s), Refills(s) 0 Start Date: 11/14/22 Status: Ordered potassium chloride 20 meq oral tablet (2 sources) Start: 12-12-2022 Potassium Chlo ride (Gjk-Yxoq-Oet M20) 20 mEq oral tablet, extended release 20 mEq = 1 tab(s), Oral, once daily or twice daily when taking an additional furosemide, Refills(s) 0 Start Date: 12/12/22 Status: Ordered Completed/Discontinued Medications Medication Drug Class(es) Dates Sig (Normalized) Sig (Original) acyclovir 400 mg oral tablet (1 source) Herpesvirus Nucleoside Analog DNA Polymerase Inhibitor, Herpes Simplex Virus Nucleoside Analog DNA Polymerase Inhibitor, Herpes Zoster Virus Nucleoside Analog DNA Polymerase Inhibitor Start: 09-28-2023 take 1 tablet by mouth twice daily acyclovir (ZOVIRAX) 400 mg tablet Take 1 tablet by mouth two times a day. 60 tablet 0 09/28/2023 Active Comment on above: Take 1 tablet by whitley th two times a day. ALPRAZolam 0.5 mg oral tablet (7 sources) Benzodiazepine ALPRAZolam (XANAX) 0.5 mg tablet Take 0.5 mg by mouth as needed. 0 Active Comment on above: Take 0.5 mg by mouth as needed. bisoprolol fumarate 10 mg / hydroCHLOROthiazide 6.25 mg oral tablet (6 sources) Thiazide Diuretic, beta-Adrenergic Alicia take 1 tablet by mouth once daily bisoprolol-hydro chlorothiazide 10-6.25 mg per tablet Take 1 tablet by mouth once daily. 0 Suspended Comment on above: Take 1 tablet by whitley once daily. levoFLOXacin 500 mg oral tablet (1 source) Quinolone Antimicrobial Start: 09-29-2023 take 1 tablet by mouth once daily in the morning levoFLOXacin (LEVAQUIN) 500 mg tablet Take 1 tablet by mouth daily at 6 am. 30 tablet 0 09/29/2023 Active Comment on above: Take 1 tablet by whitley daily at 6 am. metoprolol tartrate 25 mg oral tablet (3 sources) beta-Adrenergic Alicia Start: 09-29-2023 take 1 tablet by mouth every twelve hours metoprolol tartrate, short acting, (LOPRESSOR) 25 mg tablet Take 1 tablet by mouth every 12 hours. 0 09/29/2023 Active Start: 11-14-2022 take 1 tablet by whitley twice daily Metoprolol tartrate 25 mg Tab 25 mg = 1 tab(s), Oral, BID, Refills(s) 0 Start Date: 11/14/22 Status: Ordered Comment on above: Take 1 tablet by [facility] every 12 hours. Naproxen (6 sources) Nonsteroidal Anti-inflammatory Drug NAPROXEN SODIUM (ALEVE ORAL) Take 1 tablet by mouth as needed. 0 Suspended Comment on above: Take 1 tablet by whitley as needed. posaconazole 100 mg delayed release oral tablet (6 sources) Azole Antifungal Start: 09-20-19 take 3 tablets by mouth once daily posaconazole DR (NOXAFIL) 100 mg tablet Take 3 tablets by mouth once daily. 90 tablet 11 09/20/2023 Active Comment on above: Take 3 tablets by mo [facility] once daily. venetoclax 100 mg oral tablet (7 sources) BCL-2 Inhibitor Start: 09-20-19 End: 09-26-19 venetoclax (VENCLEXTA) 100 mg tablet Take 1 tablet (100 mg) by mouth once daily. Take for 14 days every 28 day cycle - or as directed. Take with food and water. 14 tablet 3 09/26/2023 Active Comment on above: Take 1 tablet (100 m g) by mouth once daily for 7 days every 28 day cycle Take 1 tablet (100 m g) by mouth once daily. Take for 14 days every 28 day cycle - or as directed. Take with food and water. Take 1 tablet (100 m g) by mouth once daily with food and water. Take for 7 days every 28 day cycle - or as directed. Problems Active Problems Problem Classification Problem Date Documented Date Episodic/Chronic Anxiety disorders (7 sources) Anxiety; Translations: [Anxiety disorder, unspecified] Onset: 07-03-2012 07-03-2012 Chronic Cardiac dysrhythmias (19 sources) Unspecified atrial fibrillation; Translations: [Paroxysmal atrial fibrillation] Onset: 06-20-2022 Chronic Chronic kidney disease (2 sources) Chronic kidney disease stage 3A 12-13-2022 Chronic Congestive heart failure; nonhypertensive (3 sources) Acute on chronic diastolic (congestive) heart failure; Translations: [ACUTE ON CHRONIC DIASTOLIC CHF] Onset: 11-01-2022 Chronic Coronary atherosclerosis and other heart disease (19 sources) Atherosclerotic heart disease of [place] coronary artery without angina pectoris; Translations: [Coronary atherosclerosis due to lipid rich plaque] Onset: 06-20-2022 Chronic Coronary atherosclerosis and other heart disease (3 sources) Presence of aortocoronary bypass graft; Translations: [PRESENCE AORTOCORONARY BYPASS GRAFT] Onset: 10-27-2022 Episodic Deficiency and other anemia (3 sources) Pancytopenia; Translations: [Other pancytopenia] Onset: 09-20-2023 09-26-2023 Chronic Diabetes mellitus with complications (3 sources) Type II diabetes mellitus uncontrolled 12-12-2022 Chronic Diabetes mellitus without complication (7 sources) Type 2 diabetes mellitus without complication; Translations: [Type 2 diabetes mellitus without complications] Onset: 09-20-2023 09-20-2023 Chronic Diabetes mellitus without complication (4 sources) Hyperglycemia, unspecified; Translations: [HYPERGLYCEMIA UNSPECIFIED] Onset: 11-08-2022 Episodic Diseases of white blood cells (7 sources) Leukocytosis; Translations: [Elevated white blood cell count, unspecified] Onset: 09-20-2023 09-20-2023 Chronic Disorders of lipid metabolism (5 sources) Hypercholesterolemia; Translations: [Mixed hyperlipidemia] Onset: 11-01-2022 11-14-2022 Chronic Essential hypertension (11 sources) Essential (primary) hypertension; Translations: [Hypertensive disorder] Onset: 07-03-2012 Chronic Fever of unknown origin (3 sources) Fever; Translations: [Fever, unspecified] 09-26-2023 Episodic Fluid and electrolyte disorders (2 sources) Hypo-osmolality and hyponatremia; Translations: [Hypokalemia] Onset: 11-13-2022 Episodic Heart valve disorders (1 source) Rheumatic disorders of both mitral and tricuspid valves; Translations: [RHEUMATIC D/O MITRAL TRICUSPID VALV] Onset: 10-27-2022 Chronic Immunity disorders (7 sources) Patient immunocompromised; Translations: [Immunodeficiency, unspecified] Onset: 09-20-2023 09-20-2023 Chronic Leukemias (9 sources) Acute myeloid leukemia, disease; 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, not having achieved remission] Onset: 09-20-2023 09-20-2023 Chronic Maintenance chemotherapy; radiotherapy (3 sources) Patient encounter status; Translations: [Encounter for antineoplastic chemotherapy] Onset: 09-24-2023 09-24-2023 Chronic Melanomas of skin (14 sources) Malignant melanoma of back; Translations: [Malignant melanoma of other part of trunk] Onset: 06-10-2012 07-03-2012 Chronic Melanomas of skin (3 sources) History of malignant melanoma of the skin 11-14-2022 Episodic Nutritional deficiencies (3 sources) Malnutrition (calorie); Translations: [Moderate protein-calorie malnutrition] Onset: 09-21-2023 09-24-2023 Chronic Other acquired deformities (2 sources) Acquired deformity of chest and rib; Translations: [Acquired deformity of chest and rib] Onset: 03-02-2023 Episodic Other aftercare (1 source) residential (current) use of aspirin; Translations: [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 FARMER 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] Onset: 11-13-2022 Episodic Other aftercare (1 source) residential (current) use of anticoagulants; Translations: [[facility] CURRNT USE ANTICOAGULANTS] Onset: 11-13-2022 Episodic Other aftercare (1 source) Other termite exterminator helper (current) drug therapy; Translations: [OTH [facility] CURRENT DRUG THERAPY] Onset: 11-13-2022 Episodic Other aftercare (3 sources) Post-discharge follow-up; Translations: [Encounter for follow-up examination after completed treatment for conditions other than malignant neoplasm] Onset: 09-26-2023 09-26-2023 Episodic Other diseases of veins and lymphatics (3 sources) Stasis dermatitis 12-12-2022 Episodic Other hematologic conditions (4 sources) Cytopenia; Translations: [Other specified diseases of blood and blood-forming organs] Onset: 09-20-2023 09-20-2023 Chronic Other hematologic conditions (3 sources) Bone marrow hyperplasia; Translations: [Other specified diseases of blood and blood-forming organs] Onset: 09-26-2023 09-26-2023 Chronic Other skin disorders (5 sources) Rash and other nonspecific skin eruption; Translations: [RASH OTH NONSPECIFIC SKIN ERUPTION] Onset: 09-19-2022 Episodic Other skin disorders (3 sources) Inflammatory dermatosis 11-14-2022 Episodic Residual codes; unclassified (2 sources) Localized edema; Translations: [Localized edema] Onset: 03-02-2023 Episodic Residual codes; unclassified (7 sources) At risk of disease; Translations: [Other specified personal risk factors, not elsewhere classified] Onset: 09-20-2023 09-20-2023 Episodic Spondylosis; intervertebral disc disorders; other back problems (3 sources) Spinal stenosis in cervical region 11-14-2022 Episodic Unclassified (1 source) PERSONAL HISTORY OF COVID-19; Translations: [PERSONAL HISTORY OF COVID-19] Onset: 11-13-2022 Unclassified (4 sources) Longstanding persistent atrial fibrillation; Translations: [LONGSTNDNG PERSIST ATRIAL FIBRILLTN] Onset: 11-06-2022 Unclassified (6 sources) Other persistent atrial fibrillation; Translations: [OTHR PERSISTENT ATRIAL FIBRILLATION] Onset: 11-01-2022 Past or Other Problems Problem Classification Problem Date Documented Da te Episodic/Chronic Other lower respiratory disease (3 sources) Shortness of breath; Translations: [SHORTNESS OF BREATH] Onset: 03-31-2022 Episodic Results Test Name Value Interpretation Reference Range Facil ity Consultation Noteon 10-10-19 Consultation Note [id number] F [facility] RAD - MISCon 10-10-2023 RAD - MIS [id number] F [facility] Outside [facility] Correspo connoreadriane 10-09-2023 Outside [facility] Correspondence [id number] F [facility] Population Health 10-01-19 [facility] Case Information Case Priority: None Programs: -- Referral Source: Hydraulic Tester Referral Reason: Care coordination Case Type: Transition Care Management Risk Score: -- Case Status: Enrolled (October 01, 2023) Date Assigned: October 01, 2023 Assigned By: Yordy James Date Enrolled: October 01, 2023 Assigned Primary Personnel: Yordy James Assigned Secondary Personnel: -- Case Physician: Darby Hamlin MD Ongoing Atherosclerosis of [place] coronary artery of [place] heart with angina pectoris Dehydration Hx of melanoma of skin Hypercholesterolemia Neurodermatitis Paroxysmal atrial fibrillation Spinal stenosis in cervical region Stage 3a chronic kidney disease (CKD) Stasis dermatitis Uncontrolled type 2 diabetes mellitus with hyperglycemia Historical No qualifying data Procedure/Surgical History CABG - Coronary artery bypass graft. Home Medications amLODIPine 5 mg Tab, 5 mg= 1 tab(s), Oral, Daily aspirin 81 mg Oral EC Tab, 81 mg= 1 tab(s), Oral, Daily atorvastatin 40 mg Tab, 40 mg= 1 tab(s), Oral, Daily Eliquis 5 mg oral tablet, 5 mg= 1 tab(s), Oral, BID furosemide 20 mg Tab, 20 mg= 1 tab(s), Oral, Daily metformin 500 mg Tab, 500 mg= 1 tab(s), Oral, BID Metoprolol tartrate 25 mg Tab, 25 mg= 1 tab(s), Oral, BID Test strips, See Instructions, 3 refills Allergies spironolactone (Rash) Vitamin C (Unknown) Social History Alcohol 1-2 times per year, Household alcohol concerns: No., 08/31/2023 Substance Abuse - Denies Substance Abuse, 12/12/2022 Household substance abuse concerns: No., 12/12/2022 Tobacco - Denies Tobacco Use, 12/12/2022 Never (less than 100 in lifetime) Tobacco Use:. Never Smokeless Tobacco Use:. Household tobacco concerns: No., 09/18/2023 Family History Family history is negative Screenings and Assessments 10/01/23 09:09:00 Result Name Value Comment Phone Call Monitoring Consent Agreed to continue call Phone Verification Patient Information Full name, street address and date of verified CM Program Enrollment Provides verbal consent for enrollment Goals and Interventions Care Plan Progress Note Admit Date: 09/20/23 [facility] Date of Discharge: 09/29/23 [facility] Follow-up appointment scheduled? no, patient declines at this time, has F/U with Dr. Tate [facility] 10/01 Did you understand your discharge instructions? states yes Are you able to follow them? states yes Did you receive new medications? states yes, states she does not want to get up to review at this time Have you filled the Rx's? yes Are you taking them as prescribed? yes Are you having difficulty eating or swallowing your pills? no, 'the chemo pills are kicking my butt' Are you having any stomach upset, diarrhea or constipation? no How are you sleeping? 'sleeping well' Are you having any pain? no Do you have everything you need at home to care for yourself? yes Do you have Home Health? no Spoke with patient for initial Transitional Care Management Program call. Readmission risk not available. Patient was d/c from [facility] on 09/29/23 with DX of leukemia. Patient states all of her medications were stopped except the metoprolol. States she now has 7 or 8 that she takes. Patient reports she is taking chemo pills. Patient did not want to get up at time of call to review medications. Medications will have to be reconciled at time of OV. Patient states she is 'miserable.' States 'chemo is kicking my butt.' Patient reports she has follow up with Dr. Tate tomorrow 10/02/23 will have labs completed and go from there. Patient reports she is drinking well. States 'food turns me off.' Patient reports Sunday she was able to eat 1/2 of a deli turkey sandwich, which is was good for her. Encouraged patient to eat more when hungry and she agreed. Patient reports BS this am 100, states that has been the avg since d/c. Patient denies bowel or urinary system issues. Patient declines to schedule follow up appointment with PCP at this time, states she feels that something could have been caught sooner. CN did offer appointment with ENVIRONMENTAL HEALTH AIDE and patient declined. CN explained TCM program ad gave CN contact information. Patient states she will call if needs arise. Patient denies any further questions or concerns at this time. NO D/C SUMMARY AVAILABLE, ABOVE INFORMATION OBTAINED FROM PATIENT. Communication Events Date: October 01, 2023 Method: Phone call Type: Outbound Duration (min): 11 Outcome: Case discussion Contact Type: content coordinator Contact Name: Yordy James Notes: TCM#1- see tcm note. Created By: Yordy James [facility] CBC W Auto Differential pane l (Bld)on 09-29-2023 Anisocytosis Ql (Bld) Present Normal [facility] Comment on above: Order Comment: Speci men Type: BLOOD SPECIMENOrdering Facility: [facility] Address: [address] [place] [address] Performed By: #### 5 7021-8 ####[facility] LABCLIA [id number] [place] [address] [place] Basophils (Bld) [#/Vol] 0.00 10*3/uL Normal <0.11 [facility] Comment on above: Order Comment: Speci men Type: BLOOD SPECIMENOrdering Facility: [facility] Address: [address] [place] [address] Performed By: #### 5 7021-8 ####[facility] LABCLIA [id number] [place] [address] [place] Basophils/100 WBC (Bld) 0.0 % Normal [facility] Comment on above: Order Comment: Speci men Type: BLOOD SPECIMENOrdering Facility: [facility] Address: [address] [place] [address] Performed By: #### 5 7021-8 ####[facility] LABCLIA [id number] [place] [address] [place] BLAST% 9.0 % High <=0.0 [facility] Comment on above: Order Comment: Speci men Type: BLOOD SPECIMENOrdering Facility: [facility] Address: [address] [place] [address] Performed By: #### 5 7021-8 ####[facility] LABCLIA [id number] [place] [address] [place] Dacrocytes LM Ql (Bld) Few Normal [facility] Comment on above: Order Comment: Speci men Type: BLOOD SPECIMENOrdering Facility: [facility] Address: [address] [place] [address] Performed By: #### 5 7021-8 ####[facility] LABCLIA [id number] [place] [address] [place] Differential cell count method Nom (Bld) Manual Normal [facility] Comment on above: Order Comment: Speci men Type: BLOOD SPECIMENOrdering Facility: [facility] Address: [address] [place] [address] Performed By: #### 5 7021-8 ####[facility] LABCLIA [id number] [place] [address] [place] Eosinophils (Bld) [#/Vol] 0.01 10*3/uL Normal <0.46 [facility] Comment on above: Order Comment: Speci men Type: BLOOD SPECIMENOrdering Facility: [facility] Address: [address] [place] [address] Performed By: #### 5 7021-8 ####[facility] LABCLIA [id number] [place] [address] [place] Eosinophils/100 WBC (Bld) 1.0 % Normal [facility] Comment on above: Order Comment: Speci men Type: BLOOD SPECIMENOrdering Facility: [facility] Address: [address] [place] [address] Performed By: #### 5 7021-8 ####[facility] LABCLIA [id number] [place] [address] [place] Erythrocyte distribution width (RBC) [Ratio] 19.4 % High 11.5-15.0 [facility] Comment on above: Order Comment: Speci men Type: BLOOD SPECIMENOrdering Facility: [facility] Address: [address] [place] [address] Performed By: #### 5 7021-8 ####[facility] LABCLIA [id number] [place] [address] [place] Hematocrit (Bld) [Volume fraction] 24.1 % Low 36.0-46.0 [facility] Comment on above: Order Comment: Speci men Type: BLOOD SPECIMENOrdering Facility: [facility] Address: [address] [place] [address] Performed By: #### 5 7021-8 ####[facility] LABCLIA [id number] [place] [address] [place] Hemoglobin (Bld) [Mass/Vol] 8.1 g/dL Low 11.5-15.5 [facility] Comment on above: Order Comment: Speci men Type: BLOOD SPECIMENOrdering Facility: [facility] Address: [address] [place] [address] Performed By: #### 5 7021-8 ####[facility] LABIA [id number] [place] [address] [place] Lymphocytes (Bld) [#/Vol] 0.60 10*3/uL Low 1.00-4.00 [facility] Comment on above: Order Comment: Speci men Type: BLOOD SPECIMENOrdering Facility: [facility] Address: [address] [place] [address] Performed By: #### 5 7021-8 ####[facility] LABCLIA [id number] [place] [address] [place] Lymphocytes/100 WBC (Bld) 49.0 % Normal [facility] Comment on above: Order Comment: Speci men Type: BLOOD SPECIMENOrdering Facility: [facility] Address: [address] [place], [place] [address] Performed By: #### 5 7021-8 ####[facility] LABIA [id number] [place] [address] [place] MCH (RBC) [Entitic mass] 30.2 pg Normal 26.0-34.0 [facility] Comment on above: Order Comment: Speci men Type: BLOOD SPECIMENOrdering Facility: [facility] Address: [address] [place] [address] Performed By: #### 5 7021-8 ####[facility] [id number] [place] [address] [place] MCHC (RBC) [Mass/Vol] 33.6 g/dL Normal 30.5-36.0 [facility] Comment on above: Order Comment: Speci men Type: BLOOD SPECIMENOrdering Facility: [facility] Address: [address] [place] [address] Performed By: #### 5 7021-8 ####[facility] [id number] [place] [address] [place] MCV (RBC) [Entitic vol] 89.9 fL Normal 80.0-100.0 [facility] Comment on above: Order Comment: Speci men Type: BLOOD SPECIMENOrdering Facility: [facility] Address: [address] [place] [address] Performed By: #### 5 7021-8 ####[facility] [id number] [place] [address] [place] Monocytes (Bld) [#/Vol] 0.01 10*3/uL Normal <0.87 [facility] Comment on above: Order Comment: Speci men Type: BLOOD SPECIMENOrdering Facility: [facility] Address: [address] [place] [address] Performed By: #### 5 7021-8 ####[facility] [id number] [place] [address] [place] Monocytes/100 WBC (Bld) 1.0 % Normal [facility] Comment on above: Order Comment: Speci men Type: BLOOD SPECIMENOrdering Facility: [facility] Address: [address] [place] [address] Performed By: #### 5 7021-8 ####[facility] LABCLIA [id number] [place] [address] [place] Neutrophils (Bld) [#/Vol] 0.49 10*3/uL Low 1.45-7.50 [facility] Comment on above: Order Comment: Speci men Type: BLOOD SPECIMENOrdering Facility: [facility] Address: [address] [place] [address] Performed By: #### 5 7021-8 ####[facility] LABCLIA [id number] [place] [address] [place] Neutrophils/100 WBC (Bld) 40.0 % Normal [facility] Comment on above: Order Comment: Speci men Type: BLOOD SPECIMENOrdering Facility: [facility] Address: [address] [place] [address] Performed By: #### 5 7021-8 ####[facility] LABCLIA [id number] [place] [address] [place] Nucleated RBC (Bld) [#/Vol] 10*3/uL Normal <0.01 [facility] Comment on above: Order Comment: Speci men Type: BLOOD SPECIMENOrdering Facility: [facility] Address: [address] [place] [address] Performed By: #### 5 7021-8 ####[facility] LABCLIA [id number] [place] [address] [place] Nucleated RBC/100 WBC (Bld) [Ratio] 0.0 /100 WBC Normal [facility] Comment on above: Order Comment: Speci men Type: BLOOD SPECIMENOrdering Facility: [facility] Address: [address] [place] [address] Performed By: #### 5 7021-8 ####[facility] LABCLIA [id number] [place] [address] [place] Ovalocytes LM Ql (Bld) Few Normal [facility] Comment on above: Order Comment: Speci men Type: BLOOD SPECIMENOrdering Facility: [facility] Address: [address] [place] [address] Performed By: #### 5 7021-8 ####[facility] LABCLIA [id number] [place] [address] [place] Platelet mean volume (Bld) [Entitic vol] 9.7 fL Normal 9.0-12.7 [facility] Comment on above: Order Comment: Speci men Type: BLOOD SPECIMENOrdering Facility: [facility] Address: [address] [place] [address] Performed By: #### 5 7021-8 ####[facility] LABCLIA [id number] [place] [address] [place] Platelets (Bld) [#/Vol] 8 10*3/uL Critically low 150-400 [facility] Comment on above: Order Comment: Speci men Type: BLOOD SPECIMENOrdering Facility: [facility] Address: [address] [place] [address] Result Comment: Resu lts checked and verified.No clot detected. Performed By: #### 5 7021-8 ####[facility] LABCLIA [id number] [place] [address] [place] Platelets Estimate (Bld) [#/Vol] Decreased Normal [facility] Comment on above: Order Comment: Speci men Type: BLOOD SPECIMENOrdering Facility: [facility] Address: [address] [place] [address] Performed By: #### 5 7021-8 ####[facility] LABCLIA [id number] [place] [address] [place] RBC (Bld) [#/Vol] 2.68 10*6/uL Low 3.90-5.20 [facility] Comment on above: Order Comment: Speci men Type: BLOOD SPECIMENOrdering Facility: [facility] Address: [address] [place] [address] Performed By: #### 5 7021-8 ####[facility] LABCLIA [id number] [place] [address] [place] RBC FRAGMENTS Few Abnormal None Seen [facility] Comment on above: Order Comment: Speci men Type: BLOOD SPECIMENOrdering Facility: [facility] Address: [address] [place] [address] Performed By: #### 5 7021-8 ####[facility] LABCLIA [id number] [place] [address] [place] RED CELL MORPH Reviewed: see result s of individual morphologies Normal [facility] Comment on above: Order Comment: Speci men Type: BLOOD SPECIMENOrdering Facility: [facility] Address: [address] [place] [address] Performed By: #### 5 7021-8 ####[facility] LABCLIA [id number] [place] [address] [place] WBC (Bld) [#/Vol] 1.23 10*3/uL Low 3.70-11.00 [facility] Comment on above: Order Comment: Speci men Type: BLOOD SPECIMENOrdering Facility: [facility] Address: [address] [place] [address] Result Comment: No c lot detected. Performed By: #### 5 7021-8 ####[facility] LABCLIA [id number] [place] [address] [place] CNDSon 09-29-2023 CNDS Normal [facility] Comprehensive metabolic 2000 panelon 09-29-2023 Albumin [Mass/Vol] 3.0 g/dL Low 3.9-4.9 [facility] Comment on above: Order Comment: Speci men Type: BLOOD SPECIMENOrdering Facility: [facility] Address: [address] [id number] Performed By: #### 2 4323-8, ####[facility] LABCLIA [id number] [facility] [place] [address] [place] ALP [Catalytic activity/Vol] 78 U/L Normal 34-123 [facility] Comment on above: Order Comment: Speci men Type: BLOOD SPECIMENOrdering Facility: [facility] Address: [address] [place] [address] Performed By: #### 2 4323-8, ####[facility] LABCLIA [id number] [place] [address] [place] ALT [Catalytic activity/Vol] 21 U/L Normal 7-38 [facility] Comment on above: Order Comment: Speci men Type: BLOOD SPECIMENOrdering Facility: [facility] Address: [address] [place], [place] [address] Performed By: #### 2 4323-8, ####[facility] LABCLIA [id number] [place] [address] [place] Anion gap [Moles/Vol] 6 mmol/L Low 9-18 [facility] Comment on above: Order Comment: Speci men Type: BLOOD SPECIMENOrdering Facility: [facility] Address: [address] [place] [address] Performed By: #### 2 4323-8, ####[facility] LABCLIA [id number] [place] [address] [place] AST [Catalytic activity/Vol] 16 U/L Normal 13-35 [facility] Comment on above: Order Comment: Speci men Type: BLOOD SPECIMENOrdering Facility: [facility] Address: [address] [place] [address] Performed By: #### 2 432-8, ####[facility] LABCLIA [id number] [place] [address] [place] Bilirubin [Mass/Vol] 0.6 mg/dL Normal 0.2-1.3 [facility] Comment on above: Order Comment: Speci men Type: BLOOD SPECIMENOrdering Facility: [facility] Address: [address] [place] [address] Performed By: #### 2 432-8, ####[facility] LABCLIA [id number] [place] [address] [place] Calcium [Mass/Vol] 8.4 mg/dL Low 8.5-10.2 [facility] Comment on above: Order Comment: Speci men Type: BLOOD SPECIMENOrdering Facility: [facility] Address: [address] [place] [address] Performed By: #### 2 4323-02, ####[facility] LABCLIA [id number] [place] [address] [place] Chloride [Moles/Vol] 104 mmol/L Normal 97-105 [facility] Comment on above: Order Comment: Speci men Type: BLOOD SPECIMENOrdering Facility: [facility] Address: [address] [place], [place] [address] Performed By: #### 2 8, ####[facility] LABCLIA [id number] [facility] [place] [id number] [place] CO2 [Moles/Vol] 24 mmol/L Normal 22-30 [facility] Comment on above: Order Comment: Speci men Type: BLOOD SPECIMENOrdering Facility: [facility] Address: [address] [place], [place] [address] Performed By: #### 2 4323-8, ####[facility] LABCLIA [id number] [place] [address] [place] Creatinine [Mass/Vol] 0.48 mg/dL Low 0.58-0.96 [facility] Comment on above: Order Comment: Qi reynolds Type: BLOOD SPECIMENOrdering Facility: [facility] Address: [address] [place] [address] Performed By: #### 2 4323-8, ####[facility] LABIA [id number] [address] [facility] Creatinine and Glomerular filtration rate.predicted panel (S/P/Bld) 95 mL/min/1.73m??? Normal >=60 [facility] Comment on above: Order Comment: Qi reynolds Type: BLOOD SPECIMENOrdering Facility: [facility] Address: [address] [place] [address] Result Comment: Akiko mated Glomerular Filtration Rate (eGFR) is calculated using the 2020 CKD-EPI creatinine equation. This equation utilizes serum creatinine, sex, and age as parameters. The creatinine assay has traceable calibration to isotope dilution-mass spectrometry. Refer to KDIGO guidelines for clinical interpretation. In patients with unstable renal function, e.g. those with acute kidney injury, the eGFR may not accurately reflect actual GFR. Performed By: #### 2 4323-8, ####[facility] LABCLIA [id number] [place] [address] [place] Glucose [Mass/Vol] 110 mg/dL High 74-99 [facility] Comment on above: Order Comment: Qi reynolds Type: BLOOD SPECIMENOrdering Facility: [facility] Address: [address] [place] [address] Result Comment: The [place] [employer] (ADA) provides guidance for cutoff values for fasting glucose and random glucose. The ADA defines fasting as no caloric intake for at least 8 hours. Fasting plasma glucose results between 100 to 125 mg/dL indicate increased risk for diabetes (prediabetes).Fasting plasma glucose results greater than or equal to 126 mg/dL meet the criteria for diagnosis of diabetes. In the absence of unequivocal hyperglycemia, results should be confirmed by repeat testing. In a patient with classic symptoms of hyperglycemia or hyperglycemic crisis, random plasma glucose results greater than or equal to 200 mg/dL meet the criteria for diagnosis of diabetes.Reference: Standards of Medical Care in Diabetes 2016, [place] [employer]. Diabetes Care. 2016.39(Suppl 1). Performed By: #### 2 4323-02, ####[facility] LABCLIA [id number] [place] [address] [place] Potassium [Moles/Vol] 3.7 mmol/L Normal 3.7-5.1 [facility] Comment on above: Order Comment: Speci men Type: BLOOD SPECIMENOrdering Facility: [facility] Address: [address] [place] [address] Performed By: #### 2 4323-02, ####[facility] LABCLIA [id number] [place] [address] [place] Protein [Mass/Vol] 4.9 g/dL Low 6.3-8.0 [facility] Comment on above: Order Comment: Speci men Type: BLOOD SPECIMENOrdering Facility: [facility] Address: [address] [place] [address] Performed By: #### 2 4323-02, ####[facility] LABCLIA [id number] [place] [address] [place] Sodium [Moles/Vol] 134 mmol/L Low 136-144 [facility] Comment on above: Order Comment: Speci men Type: BLOOD SPECIMENOrdering Facility: [facility] Address: [address] [place] [address] Performed By: #### 2 4323-02, ####[facility] LABCLIA [id number] [address] [address] [place] Urea nitrogen [Mass/Vol] 11 mg/dL Normal 7-21 [facility] Comment on above: Order Comment: Speci men Type: BLOOD SPECIMENOrdering Facility: [facility] Address: [address] [id number] Performed By: #### 2 4323-8, 76852-7 ####[facility] LABIA [id number] [place] [id number] [place] Magnesium SerPl-mCncon 09-28 Magnesium [Mass/Vol] 2.3 mg/dL Normal 1.7-2.3 [facility] Comment on above: Order Comment: Speci men Type: BLOOD SPECIMENOrdering Facility: [facility] Address: [address] [place] [address] Performed By: #### 2 4323-8, 23145-3 ####[facility] LABIA [id number] [place] [address] [place] NURSING PROGon 09-29-2023 NURSING PROG Normal [facility] PT panel Coag (PPP)on 2023 INR Coag (PPP) [Relative time] 1.2 {INR} Normal 0.9-1.3 [facility] Comment on above: Order Comment: Speci rodolfo Type: BLOOD SPECIMENOrdering Facility: [facility] Address: [address] [place] [address] Result Comment: Clementine min K Antagonist (VKA) Therapeutic Range: INR 2 to 3 (Target INR of 2.5)Note: For patients treated with VKA drugs, such as warfarin, the [place] [employer] 2012 Guideline recommends a therapeutic INR range of 2 to 3 (target INR of 2.5). This recommendation includes high-risk patients with antiphospholipid syndrome with previous arterial or venous thromboembolism, current-generation mechanical or bioprosthetic aortic heart valve replacement.Note: Patients with mechanical aortic valve replacement and additional risk factors for thromboembolic events (atrial fibrillation, previous thromboembolism, LV dysfunction, hypercoagulable conditions) or an older generation mechanical AVR (i.e., ball in-Cage) or any mechanical MVR should have a INR therapeutic range of 2.5 to 3.5 (target INR of 3).Collins GH, et al. Chest 2012, 141:7S-47SNishimura RA, et al. [facility] 2017, 70: 252-289 Performed By: #### 3 4528-0, 61317-2 ####[facility] LABCLIA [id number] [place] [address] [place] PT Coag (PPP) [Time] 12.9 s Normal 9.7-13.0 [facility] Comment on above: Order Comment: Speci men Type: BLOOD SPECIMENOrdering Facility: [facility] Address: [address] [place] [address] Performed By: #### 3 4528-0, 54699-4 ####[facility] LABIA [id number] [place] [address] [place] aPTT PPPon 09-29-2023 aPTT Coag (PPP) [Time] 35.9 s High 23.0-32.4 [facility] Comment on above: Order Comment: Speci men Type: BLOOD SPECIMENOrdering Facility: [facility] Address: [address] [place] [address] Performed By: #### 3 4528-0, 47945-0 ####[facility] LABIA [id number] [place] [address] [place] CASE MANAGEMon 09-28-2023 CASE MANAGEM Normal [facility] CASE MANAGEM Normal [facility] CBC W Auto Differential pane l (Bld)on 09-28-2023 Basophils (Bld) [#/Vol] 0.00 10*3/uL Normal <0.11 [facility] Comment on above: Order Comment: Speci men Type: BLOOD SPECIMENOrdering Facility: [facility] Address: [address] [place] [address] Performed By: #### 5 7021-8 ####[facility] LABCLIA [id number] [place] [address] [place] Basophils/100 WBC (Bld) 0.0 % Normal [facility] Comment on above: Order Comment: Speci men Type: BLOOD SPECIMENOrdering Facility: [facility] Address: [address] [place] [address] Performed By: #### 5 7021-8 ####[facility] LABCLIA [id number] [place] [address] [place] BLAST% 14.5 % High <=0.0 [facility] Comment on above: Order Comment: Speci men Type: BLOOD SPECIMENOrdering Facility: [facility] Address: [address] [place] [address] Performed By: #### 5 7021-8 ####[facility] LABCLIA [id number] [place] [address] [place] Dacrocytes LM Ql (Bld) Few Normal [facility] Comment on above: Order Comment: Speci men Type: BLOOD SPECIMENOrdering Facility: [facility] Address: [address] [place] [address] Performed By: #### 5 7021-8 ####[facility] LABCLIA [id number] [place] [address] [place] Eosinophils (Bld) [#/Vol] 0.01 10*3/uL Normal <0.46 [facility] Comment on above: Order Comment: Speci men Type: BLOOD SPECIMENOrdering Facility: [facility] Address: [address] [place] [address] Performed By: #### 5 7021-8 ####[facility] LABCLIA [id number] [place] [address] [place] Eosinophils/100 WBC (Bld) 0.6 % Normal [facility] Comment on above: Order Comment: Speci men Type: BLOOD SPECIMENOrdering Facility: [facility] Address: [address] [place] [address] Performed By: #### 5 7021-8 ####[facility] LABCLIA [id number] [place] [address] [place] Erythrocyte distribution width (RBC) [Ratio] 19.5 % High 11.5-15.0 [facility] Comment on above: Order Comment: Speci men Type: BLOOD SPECIMENOrdering Facility: [facility] Address: [address] [place] [address] Performed By: #### 5 7021-8 ####[facility] LABCLIA [id number] [place] [address] [place] Hematocrit (Bld) [Volume fraction] 25.0 % Low 36.0-46.0 [facility] Comment on above: Order Comment: Speci men Type: BLOOD SPECIMENOrdering Facility: [facility] Address: [address] [place] [address] Performed By: #### 5 7021-8 ####[facility] LABCLIA [id number] [place] [address] [place] Hemoglobin (Bld) [Mass/Vol] 8.3 g/dL Low 11.5-15.5 [facility] Comment on above: Order Comment: Speci men Type: BLOOD SPECIMENOrdering Facility: [facility] Address: [address] [place] [address] Performed By: #### 5 7021-8 ####[facility] LABCLIA [id number] [place] [address] [place] Lymphocytes (Bld) [#/Vol] 0.46 10*3/uL Low 1.00-4.00 [facility] Comment on above: Order Comment: Speci men Type: BLOOD SPECIMENOrdering Facility: [facility] Address: [address] [place] [address] Performed By: #### 5 7021-8 ####[facility] LABCLIA [id number] [place] [address] [place] Lymphocytes/100 WBC (Bld) 28.5 % Normal [facility] Comment on above: Order Comment: Speci men Type: BLOOD SPECIMENOrdering Facility: [facility] Address: [address] [place] [address] Performed By: #### 5 7021-8 ####[facility] LABCLIA [id number] [place] [address] [place] MCH (RBC) [Entitic mass] 30.0 pg Normal 26.0-34.0 [facility] Comment on above: Order Comment: Speci men Type: BLOOD SPECIMENOrdering Facility: [facility] Address: [address] [place] [address] Performed By: #### 5 7021-8 ####[facility] LABIA [id number] [place] [address] [place] MCHC (RBC) [Mass/Vol] 33.2 g/dL Normal 30.5-36.0 [facility] Comment on above: Order Comment: Speci men Type: BLOOD SPECIMENOrdering Facility: [facility] Address: [address] [place] [address] Performed By: #### 5 7021-8 ####[facility] LABIA [id number] [place] [address] [place] MCV (RBC) [Entitic vol] 90.3 fL Normal 80.0-100.0 [facility] Comment on above: Order Comment: Speci men Type: BLOOD SPECIMENOrdering Facility: [facility] Address: [address] [place] [address] Performed By: #### 5 7021-8 ####[facility] LABCLIA [id number] [place] [address] [place] Monocytes (Bld) [#/Vol] 0.03 10*3/uL Normal <0.87 [facility] Comment on above: Order Comment: Speci men Type: BLOOD SPECIMENOrdering Facility: [facility] Address: [address] [place] [address] Performed By: #### 5 7021-8 ####[facility] LABCLIA [id number] [place] [address] [place] Monocytes/100 WBC (Bld) 1.7 % Normal [facility] Comment on above: Order Comment: Speci men Type: BLOOD SPECIMENOrdering Facility: [facility] Address: [address] [place] [address] Performed By: #### 5 7021-8 ####[facility] LABCLIA [id number] [place] [address] [place] Neutrophils (Bld) [#/Vol] 0.88 10*3/uL Low 1.45-7.50 [facility] Comment on above: Order Comment: Speci men Type: BLOOD SPECIMENOrdering Facility: [facility] Address: [address] [place] [address] Performed By: #### 5 7021-8 ####[facility] LABCLIA [id number] [place] [address] [place] Neutrophils/100 WBC (Bld) 54.7 % Normal [facility] Comment on above: Order Comment: Speci men Type: BLOOD SPECIMENOrdering Facility: [facility] Address: [address] [place] [address] Performed By: #### 5 7021-8 ####[facility] LABCLIA [id number] [place] [address] [place] Nucleated RBC (Bld) [#/Vol] 10*3/uL Normal <0.01 [facility] Comment on above: Order Comment: Speci men Type: BLOOD SPECIMENOrdering Facility: [facility] Address: [address] [place] [address] Performed By: #### 5 7021-8 ####[facility] LABCLIA [id number] [place] [address] [place] Nucleated RBC/100 WBC (Bld) [Ratio] 0.0 /100 WBC Normal [facility] Comment on above: Order Comment: Speci men Type: BLOOD SPECIMENOrdering Facility: [facility] Address: [address] [place] [address] Performed By: #### 5 7021-8 ####[facility] LABIA [id number] [place] [address] [place] Ovalocytes LM Ql (Bld) Few Normal [facility] Comment on above: Order Comment: Speci men Type: BLOOD SPECIMENOrdering Facility: [facility] Address: [address] [place] [address] Performed By: #### 5 7021-8 ####[facility] [id number] [place] [address] [place] Platelet mean volume (Bld) [Entitic vol] Normal [facility] Comment on above: Order Comment: Speci men Type: BLOOD SPECIMENOrdering Facility: [facility] Address: [address] [place] [address] Result Comment: Unab le to Report. Performed By: #### 5 7021-8 ####[facility] [id number] [place] [address] [place] Platelets (Bld) [#/Vol] 7 10*3/uL Critically low 150-400 [facility] Comment on above: Order Comment: Speci men Type: BLOOD SPECIMENOrdering Facility: [facility] Address: [address] [place] [address] Result Comment: Plat elet count confirmed by manual review of peripheral blood smear. Results checked and verified.No clot detected. Performed By: #### 5 7021-8 ####[facility] LABCLIA [id number] [place] [address] [place] Platelets Estimate (Bld) [#/Vol] Decreased Normal [facility] Comment on above: Order Comment: Speci men Type: BLOOD SPECIMENOrdering Facility: [facility] Address: [address] [place] [address] Performed By: #### 5 7021-8 ####[facility] LABCLIA [id number] [place] [address] [place] RBC (Bld) [#/Vol] 2.77 10*6/uL Low 3.90-5.20 [facility] Comment on above: Order Comment: Speci men Type: BLOOD SPECIMENOrdering Facility: [facility] Address: [address] [place] [address] Performed By: #### 5 7021-8 ####[facility] LABCLIA [id number] [place] [address] [place] RBC FRAGMENTS Few Abnormal None Seen [facility] Comment on above: Order Comment: Speci men Type: BLOOD SPECIMENOrdering Facility: [facility] Address: [address] [place] [address] Performed By: #### 5 7021-8 ####[facility] LABCLIA [id number] [place] [address] [place] RED CELL MORPH Reviewed: see result s of individual morphologies Normal [facility] Comment on above: Order Comment: Speci men Type: BLOOD SPECIMENOrdering Facility: [facility] Address: [address] [place] [address] Performed By: #### 5 7021-8 ####[facility] LABCLIA [id number] [place] [address] [place] WBC (Bld) [#/Vol] 1.60 10*3/uL Low 3.70-11.00 [facility] Comment on above: Order Comment: Speci men Type: BLOOD SPECIMENOrdering Facility: [facility] Address: [address] [place] [address] Result Comment: No c lot detected. Performed By: #### 5 7021-8 ####[facility] LABCLIA [id number] [place] [address] [place] Comprehensive metabolic 2000 panelon 09-28-2023 Albumin [Mass/Vol] 2.9 g/dL Low 3.9-4.9 [facility] Comment on above: Order Comment: Speci men Type: BLOOD SPECIMENOrdering Facility: [facility] Address: [address] [place] [address] Performed By: #### 2 4323-8, ####[facility] LABCLIA [id number] [place] [address] [place] ALP [Catalytic activity/Vol] 75 U/L Normal 34-123 [facility] Comment on above: Order Comment: Speci men Type: BLOOD SPECIMENOrdering Facility: [facility] Address: [address] [place] [address] Performed By: #### 2 4323-8, ####[facility] LABCLIA [id number] [place] [address] [place] ALT [Catalytic activity/Vol] 25 U/L Normal 7-38 [facility] Comment on above: Order Comment: Speci men Type: BLOOD SPECIMENOrdering Facility: [facility] Address: [address] [place] [address] Performed By: #### 2 4323-8, ####[facility] LABCLIA [id number] [place] [address] [place] Anion gap [Moles/Vol] 6 mmol/L Low 9-18 [facility] Comment on above: Order Comment: Speci men Type: BLOOD SPECIMENOrdering Facility: [facility] Address: [address] [place] [address] Performed By: #### 2 4323-8, ####[facility] LABCLIA [id number] [place] [address] [place] AST [Catalytic activity/Vol] 17 U/L Normal 13-35 [facility] Comment on above: Order Comment: Speci men Type: BLOOD SPECIMENOrdering Facility: [facility] Address: [address] [place], [place] [address] Performed By: #### 2 4323-8, ####[facility] LABCLIA [id number] [place] [address] [place] Bilirubin [Mass/Vol] 0.7 mg/dL Normal 0.2-1.3 [facility] Comment on above: Order Comment: Speci men Type: BLOOD SPECIMENOrdering Facility: [facility] Address: [address] [place] [address] Performed By: #### 2 4323-8, ####[facility] LABCLIA [id number] [place] [address] [place] Calcium [Mass/Vol] 8.3 mg/dL Low 8.5-10.2 [facility] Comment on above: Order Comment: Speci men Type: BLOOD SPECIMENOrdering Facility: [facility] Address: [address] [place] [address] Performed By: #### 2 4323-8, ####[facility] LABCLIA [id number] [place] [address] [place] Chloride [Moles/Vol] 103 mmol/L Normal 97-105 [facility] Comment on above: Order Comment: Speci men Type: BLOOD SPECIMENOrdering Facility: [facility] Address: [address] [place], [place] [address] Performed By: #### 2 432-8, ####[facility] LABCLIA [id number] [place] [id number] [place] CO2 [Moles/Vol] 25 mmol/L Normal 22-30 [facility] Comment on above: Order Comment: Speci men Type: BLOOD SPECIMENOrdering Facility: [facility] Address: [address] [place], [place] [address] Performed By: #### 2 4323-8, ####[facility] LABCLIA [id number] [place] [address] [place] Creatinine [Mass/Vol] 0.51 mg/dL Low 0.58-0.96 [facility] Comment on above: Order Comment: Qi reynolds Type: BLOOD SPECIMENOrdering Facility: [facility] Address: [address] [place] [address] Performed By: #### 2 4323-8, ####[facility] [id number] [place] [address] [facility] Creatinine and Glomerular filtration rate.predicted panel (S/P/Bld) 94 mL/min/1.73m??? Normal >=60 [facility] Comment on above: Order Comment: Qi reynolds Type: BLOOD SPECIMENOrdering Facility: [facility] Address: [address] [place] [address] Result Comment: Akiko mated Glomerular Filtration Rate (eGFR) is calculated using the 2020 CKD-EPI creatinine equation. This equation utilizes serum creatinine, sex, and age as parameters. The creatinine assay has traceable calibration to isotope dilution-mass spectrometry. Refer to KDIGO guidelines for clinical interpretation. In patients with unstable renal function, e.g. those with acute kidney injury, the eGFR may not accurately reflect actual GFR. Performed By: #### 2 4323-8, ####[facility] [id number] [place] [address] [place] Glucose [Mass/Vol] 156 mg/dL High 74-99 [facility] Comment on above: Order Comment: Qi reynolds Type: BLOOD SPECIMENOrdering Facility: [facility] Address: [address] [place] [address] Result Comment: The [place] [employer] (ADA) provides guidance for cutoff values for fasting glucose and random glucose. The ADA defines fasting as no caloric intake for at least 8 hours. Fasting plasma glucose results between 100 to 125 mg/dL indicate increased risk for diabetes (prediabetes).Fasting plasma glucose results greater than or equal to 126 mg/dL meet the criteria for diagnosis of diabetes. In the absence of unequivocal hyperglycemia, results should be confirmed by repeat testing. In a patient with classic symptoms of hyperglycemia or hyperglycemic crisis, random plasma glucose results greater than or equal to 200 mg/dL meet the criteria for diagnosis of diabetes.Reference: Standards of Medical Care in Diabetes 2016, [place] [employer]. Diabetes Care. 2016.39(Suppl 1). Performed By: #### 2 43209-20, ####[facility] LABCLIA [id number] [place] [address] [place] Potassium [Moles/Vol] 3.4 mmol/L Low 3.7-5.1 [facility] Comment on above: Order Comment: Speci men Type: BLOOD SPECIMENOrdering Facility: [facility] Address: [address] [place] [address] Performed By: #### 2 43209-20, ####[facility] LABCLIA [id number] [place] [address] [place] Protein [Mass/Vol] 5.0 g/dL Low 6.3-8.0 [facility] Comment on above: Order Comment: Speci men Type: BLOOD SPECIMENOrdering Facility: [facility] Address: [address] [place] [address] Performed By: #### 2 4323-02, ####[facility] LABCLIA [id number] [place] [address] [place] Sodium [Moles/Vol] 134 mmol/L Low 136-144 [facility] Comment on above: Order Comment: Speci men Type: BLOOD SPECIMENOrdering Facility: [facility] Address: [address] [place] [address] Performed By: #### 2 4323-02, ####[facility] LABCLIA [id number] [place] [id number] [place] Urea nitrogen [Mass/Vol] 12 mg/dL Normal 7-21 [facility] Comment on above: Order Comment: Speci men Type: BLOOD SPECIMENOrdering Facility: [facility] Address: [address] [place] [place] [address] Performed By: #### 2 4323-8, 96374-0 ####[facility] [id number] [place] [id number] [place] Magnesium SerPl-mCncon 09-27 Magnesium [Mass/Vol] 2.3 mg/dL Normal 1.7-2.3 [facility] Comment on above: Order Comment: Qi reynolds Type: BLOOD SPECIMENOrdering Facility: [facility] Address: [address] [place], [place] [address] Performed By: #### 2 4323-8, 55693-9 ####[facility] [id number] [address] [place] PT panel Coag (PPP)on 2023 INR Coag (PPP) [Relative time] 1.2 {INR} Normal 0.9-1.3 [facility] Comment on above: Order Comment: Qi reynolds Type: BLOOD SPECIMENOrdering Facility: [facility] Address: [address] [place] [address] Result Comment: Clementine min K Antagonist (VKA) Therapeutic Range: INR 2 to 3 (Target INR of 2.5)Note: For patients treated with VKA drugs, such as warfarin, the [place] [employer] 2012 Guideline recommends a therapeutic INR range of 2 to 3 (target INR of 2.5). This recommendation includes high-risk patients with antiphospholipid syndrome with previous arterial or venous thromboembolism, current-generation mechanical or bioprosthetic aortic heart valve replacement.Note: Patients with mechanical aortic valve replacement and additional risk factors for thromboembolic events (atrial fibrillation, previous thromboembolism, LV dysfunction, hypercoagulable conditions) or an older generation mechanical AVR (i.e., ball in-Cage) or any mechanical MVR should have a INR therapeutic range of 2.5 to 3.5 (target INR of 3).Collins GH, et al. Chest 2012, 141:7S-47SNishfabrizio RA, et al. JACC 2017, 70: 252-289 Performed By: #### 3 4528-0, 22897-8 ####[facility] LABCLIA [id number] [place] [address] [place] PT Coag (PPP) [Time] 12.7 s Normal 9.7-13.0 [facility] Comment on above: Order Comment: Speci men Type: BLOOD SPECIMENOrdering Facility: [facility] Address: [address] [place] [address] Performed By: #### 3 4528-0, 63301-0 ####[facility] LABCLIA [id number] [place] [address] [place] SOCIAL WORKon 09-28-2023 SOCIAL WORK Normal [facility] TYPE + SCREENon 09-28-2023 ABO B Normal [facility] Comment on above: Order Comment: Speci men Type: BLOOD SPECIMENOrdering Facility: [facility] Address: [address] [place] [address] Performed By: #### T SCR ####[facility] BANKCLIA [id number] [place] [address] [place] HISTORICAL AB SCR STATUS Positive Abnormal [facility] Comment on above: Order Comment: Speci men Type: BLOOD SPECIMENOrdering Facility: [facility] Address: [address] [place] [address] Performed By: #### T SCR ####[facility] BANKCLIA [id number] [place] [address] [place] Rh Nom (Bld) Positive Normal [facility] Comment on above: Order Comment: Speci men Type: BLOOD SPECIMENOrdering Facility: [facility] Address: [address] [place] [address] Performed By: #### T SCR ####[facility]LO[facility] BANKCLIA [id number] [place] [address] [place] TYPE AND SCREEN EXPIRATION 10/01/2023 23:59 Normal [facility] Comment on above: Order Comment: Speci men Type: BLOOD SPECIMENOrdering Facility: [facility] Address: [address] [place] [address] Performed By: #### T SCR ####[facility] BANKCL[facility] [id number] [place] [address] [place] aPTT PPPon 09-28-2023 aPTT Coag (PPP) [Time] 35.5 s High 23.0-32.4 [facility] Comment on above: Order Comment: Speci men Type: BLOOD SPECIMENOrdering Facility: [facility] Address: [address] [place] [address] Performed By: #### 3 4528-0, 11360-7 ####[facility] LABIA [id number] [place] [address] [place] CBC W Auto Differential pane l (Bld)on 09-27-2023 Anisocytosis Ql (Bld) Present Normal [facility] Comment on above: Order Comment: Speci men Type: BLOOD SPECIMENOrdering Facility: [facility] Address: [address] [place] [address] Performed By: #### 5 7021-8 ####[facility] LABIA [id number] [place] [address] [place] Basophils (Bld) [#/Vol] 0.00 10*3/uL Normal <0.11 [facility] Comment on above: Order Comment: Speci men Type: BLOOD SPECIMENOrdering Facility: [facility] Address: [address] [place] [address] Performed By: #### 5 7021-8 ####[facility] LABIA [id number] [place] [address] [place] Basophils/100 WBC (Bld) 0.0 % Normal [facility] Comment on above: Order Comment: Speci men Type: BLOOD SPECIMENOrdering Facility: [facility] Address: [address] [place] [address] Performed By: #### 5 7021-8 ####[facility] LABCLIA [id number] [place] [address] [place] BLAST% 28.0 % High <=0.0 [facility] Comment on above: Order Comment: Speci men Type: BLOOD SPECIMENOrdering Facility: [facility] Address: [address] [place] [address] Performed By: #### 5 7021-8 ####[facility] LABCLIA [id number] [place] [address] [place] Dacrocytes LM Ql (Bld) Few Normal [facility] Comment on above: Order Comment: Speci men Type: BLOOD SPECIMENOrdering Facility: [facility] Address: [address] [place] [address] Performed By: #### 5 7021-8 ####[facility] LABCLIA [id number] [place] [address] [place] Differential cell count method Nom (Bld) Manual Normal [facility] Comment on above: Order Comment: Speci men Type: BLOOD SPECIMENOrdering Facility: [facility] Address: [address] [place] [address] Performed By: #### 5 7021-8 ####[facility] LABCLIA [id number] [place] [address] [place] Eosinophils (Bld) [#/Vol] 0.00 10*3/uL Normal <0.46 [facility] Comment on above: Order Comment: Speci men Type: BLOOD SPECIMENOrdering Facility: [facility] Address: [address] [place] [address] Performed By: #### 5 7021-8 ####[facility] LABCLIA [id number] [place] [address] [place] Eosinophils/100 WBC (Bld) 0.0 % Normal [facility] Comment on above: Order Comment: Speci men Type: BLOOD SPECIMENOrdering Facility: [facility] Address: [address] [place] [address] Performed By: #### 5 7021-8 ####[facility] LABIA [id number] [place] [address] [place] Erythrocyte distribution width (RBC) [Ratio] 20.0 % High 11.5-15.0 [facility] Comment on above: Order Comment: Speci men Type: BLOOD SPECIMENOrdering Facility: [facility] Address: [address] [place] [address] Performed By: #### 5 7021-8 ####[facility] LABIA [id number] [place] [address] [place] Hematocrit (Bld) [Volume fraction] 26.9 % Low 36.0-46.0 [facility] Comment on above: Order Comment: Speci men Type: BLOOD SPECIMENOrdering Facility: [facility] Address: [address] [place] [address] Performed By: #### 5 7021-8 ####[facility] LABIA [id number] [place] [address] [place] Hemoglobin (Bld) [Mass/Vol] 8.9 g/dL Low 11.5-15.5 [facility] Comment on above: Order Comment: Speci men Type: BLOOD SPECIMENOrdering Facility: [facility] Address: [address] [place] [address] Performed By: #### 5 7021-8 ####[facility] LABIA [id number] [place] [address] [place] Lymphocytes (Bld) [#/Vol] 0.53 10*3/uL Low 1.00-4.00 [facility] Comment on above: Order Comment: Speci men Type: BLOOD SPECIMENOrdering Facility: [facility] Address: [address] [place] [address] Performed By: #### 5 7021-8 ####[facility] LABIA [id number] [place] [address] [place] Lymphocytes/100 WBC (Bld) 27.0 % Normal [facility] Comment on above: Order Comment: Speci men Type: BLOOD SPECIMENOrdering Facility: [facility] Address: [address] [place] [address] Performed By: #### 5 7021-8 ####[facility] LABIA [id number] [place] [address] [place] MCH (RBC) [Entitic mass] 29.7 pg Normal 26.0-34.0 [facility] Comment on above: Order Comment: Speci men Type: BLOOD SPECIMENOrdering Facility: [facility] Address: [address] [place] [address] Performed By: #### 5 7021-8 ####[facility] LABIA [id number] [place] [address] [place] MCHC (RBC) [Mass/Vol] 33.1 g/dL Normal 30.5-36.0 [facility] Comment on above: Order Comment: Speci men Type: BLOOD SPECIMENOrdering Facility: [facility] Address: [address] [place] [address] Performed By: #### 5 7021-8 ####[facility] LABIA [id number] [place] [address] [place] MCV (RBC) [Entitic vol] 89.7 fL Normal 80.0-100.0 [facility] Comment on above: Order Comment: Speci men Type: BLOOD SPECIMENOrdering Facility: [facility] Address: [address] [place] [address] Performed By: #### 5 7021-8 ####[facility] LABIA [id number] [place] [address] [place] Monocytes (Bld) [#/Vol] 0.06 10*3/uL Normal <0.87 [facility] Comment on above: Order Comment: Speci men Type: BLOOD SPECIMENOrdering Facility: [facility] Address: [address] [place] [address] Performed By: #### 5 7021-8 ####[facility] LABCLIA [id number] [place] [address] [place] Monocytes/100 WBC (Bld) 3.0 % Normal [facility] Comment on above: Order Comment: Speci men Type: BLOOD SPECIMENOrdering Facility: [facility] Address: [address] [place] [address] Performed By: #### 5 7021-8 ####[facility] LABCLIA [id number] [place] [address] [place] MYELO% 1.0 % Normal [facility] Comment on above: Order Comment: Speci men Type: BLOOD SPECIMENOrdering Facility: [facility] Address: [address] [place] [address] Performed By: #### 5 7021-8 ####[facility] LABCLIA [id number] [place] [address] [place] Neutrophils (Bld) [#/Vol] 0.81 10*3/uL Low 1.45-7.50 [facility] Comment on above: Order Comment: Speci men Type: BLOOD SPECIMENOrdering Facility: [facility] Address: [address] [place] [address] Performed By: #### 5 7021-8 ####[facility] LABCLIA [id number] [place] [address] [place] Neutrophils/100 WBC (Bld) 41.0 % Normal [facility] Comment on above: Order Comment: Speci men Type: BLOOD SPECIMENOrdering Facility: [facility] Address: [address] [place] [address] Performed By: #### 5 7021-8 ####[facility] LABCLIA [id number] [place] [id number] [place] Nucleated RBC (Bld) [#/Vol] 10*3/uL Normal <0.01 [facility] Comment on above: Order Comment: Speci men Type: BLOOD SPECIMENOrdering Facility: [facility] Address: [address] [place] [address] Performed By: #### 5 7021-8 ####[facility] LABCLIA [id number] [place] [address] [place] Nucleated RBC/100 WBC (Bld) [Ratio] 0.0 /100 WBC Normal [facility] Comment on above: Order Comment: Speci men Type: BLOOD SPECIMENOrdering Facility: [facility] Address: [address] [place] [address] Performed By: #### 5 7021-8 ####[facility] LABCLIA [id number] [place] [address] [place] Ovalocytes LM Ql (Bld) Few Normal [facility] Comment on above: Order Comment: Speci men Type: BLOOD SPECIMENOrdering Facility: [facility] Address: [address] [place] [address] Performed By: #### 5 7021-8 ####[facility] LABCLIA [id number] [place] [address] [place] Platelet mean volume (Bld) [Entitic vol] 10.9 fL Normal 9.0-12.7 [facility] Comment on above: Order Comment: Speci men Type: BLOOD SPECIMENOrdering Facility: [facility] Address: [address] [place] [address] Performed By: #### 5 7021-8 ####[facility] LABCLIA [id number] [place] [address] [place] Platelets (Bld) [#/Vol] 12 10*3/uL Low 150-400 [facility] Comment on above: Order Comment: Speci men Type: BLOOD SPECIMENOrdering Facility: [facility] Address: [address] [place] [address] Result Comment: Resu lts checked and verified.No clot detected. Performed By: #### 5 7021-8 ####[facility] LABCLIA [id number] [place] [address] [place] Platelets Estimate (Bld) [#/Vol] Decreased Normal [facility] Comment on above: Order Comment: Speci men Type: BLOOD SPECIMENOrdering Facility: [facility] Address: [address] [place] [address] Performed By: #### 5 7021-8 ####[facility] LABCLIA [id number] [place] [address] [place] Polychromasia LM Ql (Bld) Slight Normal [facility] Comment on above: Order Comment: Speci men Type: BLOOD SPECIMENOrdering Facility: [facility] Address: [address] [place] [address] Performed By: #### 5 7021-8 ####[facility] LABCLIA [id number] [place] [address] [place] RBC (Bld) [#/Vol] 3.00 10*6/uL Low 3.90-5.20 [facility] Comment on above: Order Comment: Speci men Type: BLOOD SPECIMENOrdering Facility: [facility] Address: [address] [place] [address] Performed By: #### 5 7021-8 ####[facility] LABIA [id number] [place] [address] [place] RED CELL MORPH Reviewed: see result s of individual morphologies Normal [facility] Comment on above: Order Comment: Speci men Type: BLOOD SPECIMENOrdering Facility: [facility] Address: [address] [place] [address] Performed By: #### 5 7021-8 ####[facility] LABCLIA [id number] [address] [address] [place] WBC (Bld) [#/Vol] 1.97 10*3/uL Low 3.70-11.00 [facility] Comment on above: Order Comment: Speci men Type: BLOOD SPECIMENOrdering Facility: [facility] Address: [address] [place] [address] Result Comment: No c lot detected. Performed By: #### 5 7021-8 ####[facility] LABCLIA [id number] [place] [address] [place] WBC Left Shift Ql (Bld) Present Normal [facility] Comment on above: Order Comment: Speci men Type: BLOOD SPECIMENOrdering Facility: [facility] Address: [address] [place] [address] Performed By: #### 5 7021-8 ####[facility] LABIA [id number] [place] [address] [place] Comprehensive metabolic 2000 panelon 09-27-2023 Albumin [Mass/Vol] 2.9 g/dL Low 3.9-4.9 [facility] Comment on above: Order Comment: Speci men Type: BLOOD SPECIMENOrdering Facility: [facility] Address: [address] [place] [address] Performed By: #### 1 9123-9, 20526-1 ####[facility] LABCLIA [id number] [place] [address] [place] ALP [Catalytic activity/Vol] 74 U/L Normal 34-123 [facility] Comment on above: Order Comment: Speci men Type: BLOOD SPECIMENOrdering Facility: [facility] Address: [address] [place] [address] Performed By: #### 1 9123-9, 29257-3 ####[facility] LABCLIA [id number] [id number] [address] [place] ALT [Catalytic activity/Vol] 25 U/L Normal 7-38 [facility] Comment on above: Order Comment: Speci men Type: BLOOD SPECIMENOrdering Facility: [facility] Address: [address] [place] [address] Performed By: #### 1 9123-9, ####[facility] LABCLIA [id number] [place] [address] [place] Anion gap [Moles/Vol] 7 mmol/L Low 9-18 [facility] Comment on above: Order Comment: Speci men Type: BLOOD SPECIMENOrdering Facility: [facility] Address: [address] [place] [address] Performed By: #### 1 9123-9, ####[facility] LABCLIA [id number] [place] [address] [place] AST [Catalytic activity/Vol] 19 U/L Normal 13-35 [facility] Comment on above: Order Comment: Speci men Type: BLOOD SPECIMENOrdering Facility: [facility] Address: [address] [place] [address] Performed By: #### 1 9123-9, ####[facility] LABCLIA [id number] [place] [address] [place] Bilirubin [Mass/Vol] 0.8 mg/dL Normal 0.2-1.3 [facility] Comment on above: Order Comment: Speci men Type: BLOOD SPECIMENOrdering Facility: [facility] Address: [address] [place] [address] Performed By: #### 1 9123-9, ####[facility] LABCLIA [id number] [place] [address] [place] Calcium [Mass/Vol] 8.6 mg/dL Normal 8.5-10.2 [facility] Comment on above: Order Comment: Speci men Type: BLOOD SPECIMENOrdering Facility: [facility] Address: [address] [place] [address] Performed By: #### 1 9123-9, 50624-8 ####[facility] LABCLIA [id number] [place] [address] [place] Chloride [Moles/Vol] 105 mmol/L Normal 97-105 [facility] Comment on above: Order Comment: Speci men Type: BLOOD SPECIMENOrdering Facility: [facility] Address: [address] [place] [address] Performed By: #### 1 9123-9, 36127-3 ####[facility] LABCLIA [id number] [place] [address] [place] CO2 [Moles/Vol] 26 mmol/L Normal 22-30 [facility] Comment on above: Order Comment: Speci men Type: BLOOD SPECIMENOrdering Facility: [facility] Address: [address] [place] [address] Performed By: #### 1 9123-9, 66674-7 ####[facility] LABCLIA [id number] [place] [address] [place] Creatinine [Mass/Vol] 0.51 mg/dL Low 0.58-0.96 [facility] Comment on above: Order Comment: Speci men Type: BLOOD SPECIMENOrdering Facility: [facility] Address: [address] [place] [address] Performed By: #### 1 9123-9, 20370-7 ####[facility] LABCLIA [id number] [place] [address] [place] Creatinine and Glomerular filtration rate.predicted panel (S/P/Bld) 94 mL/min/1.73m??? Normal >=60 [facility] Comment on above: Order Comment: Speci men Type: BLOOD SPECIMENOrdering Facility: [facility] Address: [address] [place] [address] Result Comment: Akiko mated Glomerular Filtration Rate (eGFR) is calculated using the 2020 CKD-EPI creatinine equation. This equation utilizes serum creatinine, sex, and age as parameters. The creatinine assay has traceable calibration to isotope dilution-mass spectrometry. Refer to KDIGO guidelines for clinical interpretation. In patients with unstable renal function, e.g. those with acute kidney injury, the eGFR may not accurately reflect actual GFR. Performed By: #### 1 9123-9, 41133-0 ####[facility] LABCLIA [id number] [place] [address] [place] Glucose [Mass/Vol] 102 mg/dL High 74-99 [facility] Comment on above: Order Comment: Qi reynolds Type: BLOOD SPECIMENOrdering Facility: [facility] Address: [address] [place] [address] Result Comment: The [place] [employer] (ADA) provides guidance for cutoff values for fasting glucose and random glucose. The ADA defines fasting as no caloric intake for at least 8 hours. Fasting plasma glucose results between 100 to 125 mg/dL indicate increased risk for diabetes (prediabetes).Fasting plasma glucose results greater than or equal to 126 mg/dL meet the criteria for diagnosis of diabetes. In the absence of unequivocal hyperglycemia, results should be confirmed by repeat testing. In a patient with classic symptoms of hyperglycemia or hyperglycemic crisis, random plasma glucose results greater than or equal to 200 mg/dL meet the criteria for diagnosis of diabetes.Reference: Standards of Medical Care in Diabetes 2016, [place] [employer]. Diabetes Care. 2016.39(Suppl 1). Performed By: #### 1 9123-9, 50125-0 ####[facility] LABIA [id number] [place] [address] [place] Potassium [Moles/Vol] 3.3 mmol/L Low 3.7-5.1 [facility] Comment on above: Order Comment: Qi reynolds Type: BLOOD SPECIMENOrdering Facility: [facility] Address: [address] [place] [address] Performed By: #### 1 9123-9, 31840-5 ####[facility] LABCLIA [id number] [place] [id number] [place] Protein [Mass/Vol] 5.2 g/dL Low 6.3-8.0 [facility] Comment on above: Order Comment: Speci men Type: BLOOD SPECIMENOrdering Facility: [facility] Address: [address] [place] [address] Performed By: #### 1 9123-9, 06994-3 ####[facility] LABCLIA [id number] [place] [address] [place] Sodium [Moles/Vol] 138 mmol/L Normal 136-144 [facility] Comment on above: Order Comment: Speci men Type: BLOOD SPECIMENOrdering Facility: [facility] Address: [address] [place] [address] Performed By: #### 1 9123-9, 59981-3 ####[facility] LABCLIA [id number] [place] [address] [place] Urea nitrogen [Mass/Vol] 10 mg/dL Normal 7-21 [facility] Comment on above: Order Comment: Speci men Type: BLOOD SPECIMENOrdering Facility: [facility] Address: [address] [place] [address] Performed By: #### 1 9123-9, 15141-3 ####[facility] LABCLIA [id number] [place] [id number] [place] Magnesium SerPl-mCncon 09-26 Magnesium [Mass/Vol] 2.3 mg/dL Normal 1.7-2.3 [facility] Comment on above: Order Comment: Speci men Type: BLOOD SPECIMENOrdering Facility: [facility] Address: [address] [place] [address] Performed By: #### 1 9123-9, 97241-0 ####[facility] LABCLIA [id number] [place] [id number] [place] NUTRITIONon 09-27-2023 NUTRITION Normal [facility] Outside Hospital Correspo ndenceon 09-27-2023 Outside Hospital Correspondence [id number]#[id number] F Normal [facility] SOCIAL WORKon 09-27-2023 SOCIAL WORK Normal [facility] SOCIAL WORK Normal [facility] SOCIAL WORK Normal [facility] XR HIP 1V LTon 09-27-2023 XR HIP 1V LT Normal [facility] XR HIP 1V RTon 09-27-2023 XR HIP 1V RT Normal [facility] CASE MANAGEMon 09-26-2023 CASE MANAGEM Normal [facility] CBC W Auto Differential pane l (Bld)on 09-26-2023 Anisocytosis Ql (Bld) Present Normal [facility] Comment on above: Order Comment: Speci men Type: BLOOD SPECIMENOrdering Facility: [facility] Address: [address] [place] [address] Performed By: #### 5 7021-8 ####[facility] LABCLIA [id number] [place] [address] [place] Basophils (Bld) [#/Vol] 0.00 10*3/uL Normal <0.11 [facility] Comment on above: Order Comment: Speci men Type: BLOOD SPECIMENOrdering Facility: [facility] Address: [address] [place] [address] Performed By: #### 5 7021-8 ####[facility] LABCLIA [id number] [place] [address] [place] Basophils/100 WBC (Bld) 0.0 % Normal [facility] Comment on above: Order Comment: Speci men Type: BLOOD SPECIMENOrdering Facility: [facility] Address: [address] [place] [address] Performed By: #### 5 7021-8 ####[facility] LABCLIA [id number] [place] [address] [place] BLAST% 42.0 % High <=0.0 [facility] Comment on above: Order Comment: Speci men Type: BLOOD SPECIMENOrdering Facility: [facility] Address: [address] [place] [address] Performed By: #### 5 7021-8 ####[facility] LABCLIA [id number] [place] [address] [place] Dacrocytes LM Ql (Bld) Few Normal [facility] Comment on above: Order Comment: Speci men Type: BLOOD SPECIMENOrdering Facility: [facility] Address: [address] [place] [address] Performed By: #### 5 7021-8 ####[facility] LABCLIA [id number] [place] [address] [place] Differential cell count method Nom (Bld) Manual Normal [facility] Comment on above: Order Comment: Speci men Type: BLOOD SPECIMENOrdering Facility: [facility] Address: [address] [place] [address] Performed By: #### 5 7021-8 ####[facility] LABCLIA [id number] [place] [address] [place] Eosinophils (Bld) [#/Vol] 0.03 10*3/uL Normal <0.46 [facility] Comment on above: Order Comment: Speci men Type: BLOOD SPECIMENOrdering Facility: [facility] Address: [address] [place] [address] Performed By: #### 5 7021-8 ####[facility] LABCLIA [id number] [place] [address] [place] Eosinophils/100 WBC (Bld) 1.0 % Normal [facility] Comment on above: Order Comment: Speci men Type: BLOOD SPECIMENOrdering Facility: [facility] Address: [address] [place] [address] Performed By: #### 5 7021-8 ####[facility] LABCLIA [id number] [place] [address] [place] Erythrocyte distribution width (RBC) [Ratio] 20.7 % High 11.5-15.0 [facility] Comment on above: Order Comment: Speci men Type: BLOOD SPECIMENOrdering Facility: [facility] Address: [address] [place] [address] Performed By: #### 5 7021-8 ####[facility] LABIA [id number] [place] [address] [place] Hematocrit (Bld) [Volume fraction] 23.8 % Low 36.0-46.0 [facility] Comment on above: Order Comment: Speci men Type: BLOOD SPECIMENOrdering Facility: [facility] Address: [address] [place] [address] Performed By: #### 5 7021-8 ####[facility] LABIA [id number] [place] [address] [place] Hemoglobin (Bld) [Mass/Vol] 7.8 g/dL Low 11.5-15.5 [facility] Comment on above: Order Comment: Speci men Type: BLOOD SPECIMENOrdering Facility: [facility] Address: [address] [place] [address] Performed By: #### 5 7021-8 ####[facility] LABIA [id number] [place] [address] [place] Lymphocytes (Bld) [#/Vol] 0.53 10*3/uL Low 1.00-4.00 [facility] Comment on above: Order Comment: Speci men Type: BLOOD SPECIMENOrdering Facility: [facility] Address: [address] [place] [address] Performed By: #### 5 7021-8 ####[facility] LABCLIA [id number] [place] [address] [place] Lymphocytes/100 WBC (Bld) 20.0 % Normal [facility] Comment on above: Order Comment: Speci men Type: BLOOD SPECIMENOrdering Facility: [facility] Address: [address] [place] [address] Performed By: #### 5 7021-8 ####[facility] LABIA [id number] [place] [address] [place] MCH (RBC) [Entitic mass] 30.7 pg Normal 26.0-34.0 [facility] Comment on above: Order Comment: Speci men Type: BLOOD SPECIMENOrdering Facility: [facility] Address: [address] [place] [address] Performed By: #### 5 7021-8 ####[facility] [id number] [place] [address] [place] MCHC (RBC) [Mass/Vol] 32.8 g/dL Normal 30.5-36.0 [facility] Comment on above: Order Comment: Speci men Type: BLOOD SPECIMENOrdering Facility: [facility] Address: [address] [place] [address] Performed By: #### 5 7021-8 ####[facility] LABIA [id number] [place] [address] [place] MCV (RBC) [Entitic vol] 93.7 fL Normal 80.0-100.0 [facility] Comment on above: Order Comment: Speci men Type: BLOOD SPECIMENOrdering Facility: [facility] Address: [address] [place] [address] Performed By: #### 5 7021-8 ####[facility] LABIA [id number] [place] [address] [place] Monocytes (Bld) [#/Vol] 0.19 10*3/uL Normal <0.87 [facility] Comment on above: Order Comment: Speci men Type: BLOOD SPECIMENOrdering Facility: [facility] Address: [address] [place] [address] Performed By: #### 5 7021-8 ####[facility] LABCLIA [id number] [place] [address] [place] Monocytes/100 WBC (Bld) 7.0 % Normal [facility] Comment on above: Order Comment: Speci men Type: BLOOD SPECIMENOrdering Facility: [facility] Address: [address] [place] [address] Performed By: #### 5 7021-8 ####[facility] LABCLIA [id number] [place] [address] [place] Neutrophils (Bld) [#/Vol] 0.80 10*3/uL Low 1.45-7.50 [facility] Comment on above: Order Comment: Speci men Type: BLOOD SPECIMENOrdering Facility: [facility] Address: [address] [place] [address] Performed By: #### 5 7021-8 ####[facility] LABCLIA [id number] [place] [address] [place] Neutrophils/100 WBC (Bld) 30.0 % Normal [facility] Comment on above: Order Comment: Speci men Type: BLOOD SPECIMENOrdering Facility: [facility] Address: [address] [place] [address] Performed By: #### 5 7021-8 ####[facility] LABCLIA [id number] [place] [address] [place] Nucleated RBC (Bld) [#/Vol] 10*3/uL Normal <0.01 [facility] Comment on above: Order Comment: Speci men Type: BLOOD SPECIMENOrdering Facility: [facility] Address: [address] [place] [address] Performed By: #### 5 7021-8 ####[facility] LABCLIA [id number] [place] [address] [place] Nucleated RBC/100 WBC (Bld) [Ratio] 0.0 /100 WBC Normal [facility] Comment on above: Order Comment: Speci men Type: BLOOD SPECIMENOrdering Facility: [facility] Address: [address] [place] [address] Performed By: #### 5 7021-8 ####[facility] LABIA [id number] [place] [address] [place] Ovalocytes LM Ql (Bld) Few Normal [facility] Comment on above: Order Comment: Speci men Type: BLOOD SPECIMENOrdering Facility: [facility] Address: [address] [place] [address] Performed By: #### 5 7021-8 ####[facility] [id number] [place] [address] [place] Platelet mean volume (Bld) [Entitic vol] 12.1 fL Normal 9.0-12.7 [facility] Comment on above: Order Comment: Speci men Type: BLOOD SPECIMENOrdering Facility: [facility] Address: [address] [place] [address] Performed By: #### 5 7021-8 ####[facility] [id number] [place] [address] [place] Platelets (Bld) [#/Vol] 22 10*3/uL Low 150-400 [facility] Comment on above: Order Comment: Speci men Type: BLOOD SPECIMENOrdering Facility: [facility] Address: [address] [place] [address] Result Comment: Resu lts checked and verified.No clot detected. Performed By: #### 5 7021-8 ####[facility] LABIA [id number] [place] [address] [place] Platelets Estimate (Bld) [#/Vol] Decreased Normal [facility] Comment on above: Order Comment: Speci men Type: BLOOD SPECIMENOrdering Facility: [facility] Address: [address] [place] [address] Performed By: #### 5 7021-8 ####[facility] LABCLIA [id number] [place] [address] [place] Polychromasia LM Ql (Bld) Slight Normal [facility] Comment on above: Order Comment: Speci men Type: BLOOD SPECIMENOrdering Facility: [facility] Address: [address] [place] [address] Performed By: #### 5 7021-8 ####[facility] LABCLIA [id number] [place] [address] [place] RBC (Bld) [#/Vol] 2.54 10*6/uL Low 3.90-5.20 [facility] Comment on above: Order Comment: Speci men Type: BLOOD SPECIMENOrdering Facility: [place] Address: [address] [place] [address] Performed By: #### 5 7021-8 ####[facility] LABIA [id number] [place] [address] [place] RED CELL MORPH Reviewed: see result s of individual morphologies Normal [facility] Comment on above: Order Comment: Speci men Type: BLOOD SPECIMENOrdering Facility: [facility] Address: [address] [place] [address] Performed By: #### 5 7021-8 ####[facility] LABIA [id number] [place] [address] [place] WBC (Bld) [#/Vol] 2.65 10*3/uL Low 3.70-11.00 [facility] Comment on above: Order Comment: Speci men Type: BLOOD SPECIMENOrdering Facility: [facility] Address: [address] [place] [address] Performed By: #### 5 7021-8 ####[facility] LABCLIA [id number] [place] [address] [place] CONSULTon 09-26-2023 CONSULT Normal [facility] Comprehensive metabolic 2000 panelon 09-26-2023 Albumin [Mass/Vol] 3.0 g/dL Low 3.9-4.9 [facility] Comment on above: Order Comment: Speci men Type: BLOOD SPECIMENOrdering Facility: [facility] Address: [address] [place] [address] Performed By: #### 1 9123-9, 25222-6, 3084-1, 2777-1 ####[facility] LABCLIA [id number] [place] [address] [place] ALP [Catalytic activity/Vol] 71 U/L Normal 34-123 [facility] Comment on above: Order Comment: Speci men Type: BLOOD SPECIMENOrdering Facility: [facility] Address: [address] [place] [address] Performed By: #### 1 9123-9, 59974-4, 3084-1, 277-1 ####[facility] LABCLIA [id number] [place] [address] [place] ALT [Catalytic activity/Vol] 28 U/L Normal 7-38 [facility] Comment on above: Order Comment: Speci men Type: BLOOD SPECIMENOrdering Facility: [facility] Address: [address] [place] [address] Performed By: #### 1 9123-9, 55382-4, 3084-1, 277-1 ####[facility] LABCLIA [id number] [place] [address] [place] Anion gap [Moles/Vol] 9 mmol/L Normal 9-18 [facility] Comment on above: Order Comment: Speci men Type: BLOOD SPECIMENOrdering Facility: [facility] Address: [address] [place] [address] Performed By: #### 1 9123-9, 84562-1, 3084-1, 2777-1 ####[facility] LABCLIA [id number] [place] [address] [place] AST [Catalytic activity/Vol] 26 U/L Normal 13-35 [facility] Comment on above: Order Comment: Speci men Type: BLOOD SPECIMENOrdering Facility: [facility] Address: [address] [place] [address] Performed By: #### 1 9123-9, 73379-6, 3084-1, 2777-1 ####[facility] LABCLIA [id number] [place] [address] [place] Bilirubin [Mass/Vol] 0.6 mg/dL Normal 0.2-1.3 [facility] Comment on above: Order Comment: Speci men Type: BLOOD SPECIMENOrdering Facility: [facility] Address: [address] [place] [address] Performed By: #### 1 9123-9, 94090-5, 3084-1, 2777-1 ####[facility] LABIA [id number] [place] [address] [place] Calcium [Mass/Vol] 8.2 mg/dL Low 8.5-10.2 [facility] Comment on above: Order Comment: Speci men Type: BLOOD SPECIMENOrdering Facility: [facility] Address: [address] [place] [address] Performed By: #### 1 9123-9, 33957-8, 3084-1, 2777-1 ####[facility] LABCLIA [id number] [place] [address] [place] Chloride [Moles/Vol] 105 mmol/L Normal 97-105 [facility] Comment on above: Order Comment: Speci men Type: BLOOD SPECIMENOrdering Facility: [facility] Address: [address] [place] [address] Performed By: #### 1 9123-9, 40795-1, 3084-1, 2777-1 ####[facility] LABCLIA [id number] [place] [id number] [place] CO2 [Moles/Vol] 25 mmol/L Normal 22-30 [facility] Comment on above: Order Comment: Qi reynolds Type: BLOOD SPECIMENOrdering Facility: [facility] Address: [address] [place] [address] Performed By: #### 1 9123-9, 53100-0, 3084-1, 2776-1 ####[facility] LABCLIA [id number] [place] [address] [place] Creatinine [Mass/Vol] 0.52 mg/dL Low 0.58-0.96 [facility] Comment on above: Order Comment: Qi reynolds Type: BLOOD SPECIMENOrdering Facility: [facility] Address: [address] [place] [address] Performed By: #### 1 9123-9, 23853-3, 3083-, 2776- ####[facility] LABIA [id number] [place] [address] [place] Creatinine and Glomerular filtration rate.predicted panel (S/P/Bld) 93 mL/min/1.73m??? Normal >=60 [facility] Comment on above: Order Comment: Qi reynolds Type: BLOOD SPECIMENOrdering Facility: [facility] Address: [address] [place] [address] Result Comment: Akiko mated Glomerular Filtration Rate (eGFR) is calculated using the 2020 CKD-EPI creatinine equation. This equation utilizes serum creatinine, sex, and age as parameters. The creatinine assay has traceable calibration to isotope dilution-mass spectrometry. Refer to KDIGO guidelines for clinical interpretation. In patients with unstable renal function, e.g. those with acute kidney injury, the eGFR may not accurately reflect actual GFR. Performed By: #### 1 9123-9, 99651-8, 3084-1, 277-1 ####[facility] LABCLIA [id number] [place] [address] [place] Glucose [Mass/Vol] 118 mg/dL High 74-99 [facility] Comment on above: Order Comment: Speci men Type: BLOOD SPECIMENOrdering Facility: [facility] Address: [address] [place] [address] Result Comment: The [place] [employer] (ADA) provides guidance for cutoff values for fasting glucose and random glucose. The ADA defines fasting as no caloric intake for at least 8 hours. Fasting plasma glucose results between 100 to 125 mg/dL indicate increased risk for diabetes (prediabetes).Fasting plasma glucose results greater than or equal to 126 mg/dL meet the criteria for diagnosis of diabetes. In the absence of unequivocal hyperglycemia, results should be confirmed by repeat testing. In a patient with classic symptoms of hyperglycemia or hyperglycemic crisis, random plasma glucose results greater than or equal to 200 mg/dL meet the criteria for diagnosis of diabetes.Reference: Standards of Medical Care in Diabetes 2016, [place] [employer]. Diabetes Care. 2016.39(Suppl 1). Performed By: #### 1 9123-9, 72900-3, 3084-1, 2777-1 ####[facility] LABCLIA [id number] [place] [address] [place] Potassium [Moles/Vol] 3.6 mmol/L Low 3.7-5.1 [facility] Comment on above: Order Comment: Qi reynolds Type: BLOOD SPECIMENOrdering Facility: [facility] Address: [address] [place] [address] Performed By: #### 1 9123-9, 32061-7, 3084-1, 277-1 ####[facility] LABCLIA [id number] [place] [address] [place] Protein [Mass/Vol] 5.1 g/dL Low 6.3-8.0 [facility] Comment on above: Order Comment: Qi reynolds Type: BLOOD SPECIMENOrdering Facility: [facility] Address: [address] [place] [address] Performed By: #### 1 9123-9, 24359-3, 3084-1, 2777-1 ####[facility] LABCLIA [id number] [place] [address] [place] Sodium [Moles/Vol] 139 mmol/L Normal 136-144 [facility] Comment on above: Order Comment: Speci men Type: BLOOD SPECIMENOrdering Facility: [facility] Address: [address] [place] [address] Performed By: #### 1 9123-9, 94360-7, 3084-1, 2777-1 ####[facility] LABCLIA [id number] [place] [address] [place] Urea nitrogen [Mass/Vol] 11 mg/dL Normal 7-21 [facility] Comment on above: Order Comment: Speci men Type: BLOOD SPECIMENOrdering Facility: [facility] Address: [address] [place] [address] Performed By: #### 1 9123-9, 01653-6, 3084-1, 2777-1 ####[facility] LABCLIA [id number] [place] [address] [place] Fibrinogen PPP-mCncon 2023 Fibrinogen Coag (PPP) [Mass/Vol] 522 mg/dL High 200-400 [facility] Comment on above: Order Comment: Speci men Type: BLOOD SPECIMENOrdering Facility: [facility] Address: [address] [place] [address] Result Comment: Resu lt rechecked.Sample checked for clot. Performed By: #### 3 4528-0, 10951-6, 3255-7 ####[facility] LABCLIA [id number] [place] [address] [place] Magnesium SerPl-mCncon 09-25 Magnesium [Mass/Vol] 2.3 mg/dL Normal 1.7-2.3 [facility] Comment on above: Order Comment: Speci men Type: BLOOD SPECIMENOrdering Facility: [facility] Address: [address] [place] [address] Performed By: #### 1 9123-9, 88204-5, 3084-1, 2777-1 ####[facility] LABCLIA [id number] [place] [address] [place] PT panel Coag (PPP)on 2023 INR Coag (PPP) [Relative time] 1.2 {INR} Normal 0.9-1.3 [facility] Comment on above: Order Comment: Speci men Type: BLOOD SPECIMENOrdering Facility: [facility] Address: [address] [place] [address] Result Comment: Clementine min K Antagonist (VKA) Therapeutic Range: INR 2 to 3 (Target INR of 2.5)Note: For patients treated with VKA drugs, such as warfarin, the [employer] 2012 Guideline recommends a therapeutic INR range of 2 to 3 (target INR of 2.5). This recommendation includes high-risk patients with antiphospholipid syndrome with previous arterial or venous thromboembolism, current-generation mechanical or bioprosthetic aortic heart valve replacement.Note: Patients with mechanical aortic valve replacement and additional risk factors for thromboembolic events (atrial fibrillation, previous thromboembolism, LV dysfunction, hypercoagulable conditions) or an older generation mechanical AVR (i.e., ball in-Cage) or any mechanical MVR should have a INR therapeutic range of 2.5 to 3.5 (target INR of 3).Collins HUTCHINS, et al. Chest 2012, 141:7S-47SKenny SY, et al. [facility] 2017, 70: 252-289 Performed By: #### 3 4528-0, 21542-0, 3255-7 ####[facility] LABCLIA [id number] [address] [address] [place] PT Coag (PPP) [Time] 13.0 s Normal 9.7-13.0 [facility] Comment on above: Order Comment: Qi reynolds Type: BLOOD SPECIMENOrdering Facility: [facility] Address: [address] [place] [address] Performed By: #### 3 4528-0, 48155-2, 3255-7 ####[facility] LABCLIA [id number] [place] [id number] [place] Phosphate SerPl-mCncon 09-25 Phosphate [Mass/Vol] 2.0 mg/dL Low 2.7-4.8 [facility] Comment on above: Order Comment: Speci men Type: BLOOD SPECIMENOrdering Facility: [facility] Address: [address] [place] [address] Performed By: #### 1 9123-9, 03940-7, 3084-1, 2777-1 ####[facility] LABCLIA [id number] [place] [id number] [place] THERAPY NTon 09-26-2023 THERAPY NT Normal [facility] Urate SerPl-ncon Urate [Mass/Vol] 1.5 mg/dL Low 2.5-6.6 [facility] Comment on above: Order Comment: Speci men Type: BLOOD SPECIMENOrdering Facility: [facility] Address: [address] [place] [address] Performed By: #### 1 9123-9, 16166-5, 3084-1, 2777-1 ####[facility] LABIA [id number] [place] [id number] [place] aPTT PPPon 09-26-2023 aPTT Coag (PPP) [Time] 34.5 s High 23.0-32.4 [facility] Comment on above: Order Comment: Speci men Type: BLOOD SPECIMENOrdering Facility: [facility] Address: [address] [place] [address] Performed By: #### 3 4528-0, 20355-4, 3255-7 ####[facility] LABCLIA [id number] [place] [id number] [place] BRIEF OP NOTon 09-25-2023 BRIEF OP NOT Normal [facility] CASE MANAGEMon 09-25-2023 CASE MANAGEM Normal [facility] CBC W Auto Differential pane l (Bld)on 09-25-2023 Anisocytosis Ql (Bld) Present Normal [facility] Comment on above: Order Comment: Speci men Type: BLOOD SPECIMENOrdering Facility: [facility] Address: [address] [place] [address] Performed By: #### 5 7021-8 ####[facility] LABCLIA [id number] [place] [address] [place] Basophils (Bld) [#/Vol] 0.00 10*3/uL Normal <0.11 [facility] Comment on above: Order Comment: Speci men Type: BLOOD SPECIMENOrdering Facility: [facility] Address: [address] [place] [address] Performed By: #### 5 7021-8 ####[facility] LABCLIA [id number] [place] [address] [place] Basophils/100 WBC (Bld) 0.0 % Normal [facility] Comment on above: Order Comment: Speci men Type: BLOOD SPECIMENOrdering Facility: [facility] Address: [address] [place] [address] Performed By: #### 5 7021-8 ####[facility] LABCLIA [id number] [place] [address] [place] BLAST% 33.9 % High <=0.0 [facility] Comment on above: Order Comment: Speci men Type: BLOOD SPECIMENOrdering Facility: [facility] Address: [address] [place] [address] Performed By: #### 5 7021-8 ####[facility] LABCLIA [id number] [place] [address] [place] Dacrocytes LM Ql (Bld) Few Normal [facility] Comment on above: Order Comment: Speci men Type: BLOOD SPECIMENOrdering Facility: [facility] Address: [address] [place] [address] Performed By: #### 5 7021-8 ####[facility] LABCLIA [id number] [place] [address] [place] Differential cell count method Nom (Bld) Manual Normal [facility] Comment on above: Order Comment: Speci men Type: BLOOD SPECIMENOrdering Facility: [facility] Address: [address] [place] [address] Performed By: #### 5 7021-8 ####[facility] LABCLIA [id number] [place] [address] [place] Eosinophils (Bld) [#/Vol] 0.00 10*3/uL Normal <0.46 [facility] Comment on above: Order Comment: Speci men Type: BLOOD SPECIMENOrdering Facility: [facility] Address: [address] [place] [address] Performed By: #### 5 7021-8 ####[facility] LABCLIA [id number] [place] [address] [place] Eosinophils/100 WBC (Bld) 0.0 % Normal [facility] Comment on above: Order Comment: Speci men Type: BLOOD SPECIMENOrdering Facility: [facility] Address: [address] [place] [address] Performed By: #### 5 7021-8 ####[facility] LABCLIA [id number] [place] [address] [place] Erythrocyte distribution width (RBC) [Ratio] 20.9 % High 11.5-15.0 [facility] Comment on above: Order Comment: Speci men Type: BLOOD SPECIMENOrdering Facility: [facility] Address: [address] [place] [address] Performed By: #### 5 7021-8 ####[facility] LABCLIA [id number] [place] [address] [place] Hematocrit (Bld) [Volume fraction] 23.5 % Low 36.0-46.0 [facility] Comment on above: Order Comment: Speci men Type: BLOOD SPECIMENOrdering Facility: [facility] Address: [address] [place] [address] Performed By: #### 5 7021-8 ####[facility] LABCLIA [id number] [place] [address] [place] Hemoglobin (Bld) [Mass/Vol] 7.8 g/dL Low 11.5-15.5 [facility] Comment on above: Order Comment: Speci men Type: BLOOD SPECIMENOrdering Facility: [facility] Address: [address] [place] [address] Performed By: #### 5 7021-8 ####[facility] LABIA [id number] [place] [address] [place] Lymphocytes (Bld) [#/Vol] 0.83 10*3/uL Low 1.00-4.00 [facility] Comment on above: Order Comment: Speci men Type: BLOOD SPECIMENOrdering Facility: [facility] Address: [address] [place] [address] Performed By: #### 5 7021-8 ####[facility] LABIA [id number] [place] [address] [place] Lymphocytes/100 WBC (Bld) 22.3 % Normal [facility] Comment on above: Order Comment: Speci men Type: BLOOD SPECIMENOrdering Facility: [facility] Address: [address] [place] [address] Performed By: #### 5 7021-8 ####[facility] LABIA [id number] [place] [address] [place] MCH (RBC) [Entitic mass] 31.0 pg Normal 26.0-34.0 [facility] Comment on above: Order Comment: Speci men Type: BLOOD SPECIMENOrdering Facility: [facility] Address: [address] [place] [address] Performed By: #### 5 7021-8 ####[facility] LABCLIA [id number] [place] [address] [place] MCHC (RBC) [Mass/Vol] 33.2 g/dL Normal 30.5-36.0 [facility] Comment on above: Order Comment: Speci men Type: BLOOD SPECIMENOrdering Facility: [facility] Address: [address] [place] [address] Performed By: #### 5 7021-8 ####[facility] LABIA [id number] [place] [address] [place] MCV (RBC) [Entitic vol] 93.3 fL Normal 80.0-100.0 [facility] Comment on above: Order Comment: Speci men Type: BLOOD SPECIMENOrdering Facility: [facility] Address: [address] [place] [address] Performed By: #### 5 7021-8 ####[facility] LABIA [id number] [place] [address] [place] Monocytes (Bld) [#/Vol] 0.17 10*3/uL Normal <0.87 [facility] Comment on above: Order Comment: Speci men Type: BLOOD SPECIMENOrdering Facility: [facility] Address: [address] [place] [address] Performed By: #### 5 7021-8 ####[facility] LABCLIA [id number] [place] [address] [place] Monocytes/100 WBC (Bld) 4.5 % Normal [facility] Comment on above: Order Comment: Speci men Type: BLOOD SPECIMENOrdering Facility: [facility] Address: [address] [place] [address] Performed By: #### 5 7021-8 ####[facility] LABIA [id number] [place] [address] [place] Neutrophils (Bld) [#/Vol] 1.46 10*3/uL Normal 1.45-7.50 [facility] Comment on above: Order Comment: Speci men Type: BLOOD SPECIMENOrdering Facility: [facility] Address: [address] [place] [address] Performed By: #### 5 7021-8 ####[facility] LABCLIA [id number] [place] [address] [place] Neutrophils/100 WBC (Bld) 39.3 % Normal [facility] Comment on above: Order Comment: Speci men Type: BLOOD SPECIMENOrdering Facility: [facility] Address: [address] [place] [address] Performed By: #### 5 7021-8 ####[facility] LABCLIA [id number] [place] [address] [place] Nucleated RBC (Bld) [#/Vol] 0.03 10*3/uL High <0.01 [facility] Comment on above: Order Comment: Speci men Type: BLOOD SPECIMENOrdering Facility: [facility] Address: [address] [place] [address] Performed By: #### 5 7021-8 ####[facility] LABIA [id number] [place] [address] [place] Nucleated RBC/100 WBC (Bld) [Ratio] 0.9 /100 WBC Normal [facility] Comment on above: Order Comment: Speci men Type: BLOOD SPECIMENOrdering Facility: [facility] Address: [address] [place] [address] Performed By: #### 5 7021-8 ####[facility] LABCLIA [id number] [place] [address] [place] Ovalocytes LM Ql (Bld) Few Normal [facility] Comment on above: Order Comment: Speci men Type: BLOOD SPECIMENOrdering Facility: [facility] Address: [address] [place] [address] Performed By: #### 5 7021-8 ####[facility] LABCLIA [id number] [address] [address] [place] Platelet mean volume (Bld) [Entitic vol] 12.1 fL Normal 9.0-12.7 [facility] Comment on above: Order Comment: Speci men Type: BLOOD SPECIMENOrdering Facility: [facility] Address: [address] [place] [address] Performed By: #### 5 7021-8 ####[facility] LABCLIA [id number] [place] [address] [place] Platelets (Bld) [#/Vol] 28 10*3/uL Low 150-400 [facility] Comment on above: Order Comment: Speci men Type: BLOOD SPECIMENOrdering Facility: [facility] Address: [address] [place] [address] Result Comment: Resu lts checked and verified.No clot detected. Performed By: #### 5 7021-8 ####[facility] LABCLIA [id number] [place] [address] [place] Platelets Estimate (Bld) [#/Vol] Decreased Normal [facility] Comment on above: Order Comment: Speci men Type: BLOOD SPECIMENOrdering Facility: [facility] Address: [address] [place] [address] Performed By: #### 5 7021-8 ####[facility] LABCLIA [id number] [place] [address] [place] RBC (Bld) [#/Vol] 2.52 10*6/uL Low 3.90-5.20 [facility] Comment on above: Order Comment: Speci men Type: BLOOD SPECIMENOrdering Facility: [facility] Address: [address] [place] [address] Performed By: #### 5 7021-8 ####[facility] LABCLIA [id number] [place] [address] [place] RBC FRAGMENTS Few Abnormal None Seen [facility] Comment on above: Order Comment: Speci men Type: BLOOD SPECIMENOrdering Facility: [facility] Address: [address] [place] [address] Performed By: #### 5 7021-8 ####[facility] LABCLIA [id number] [place] [address] [place] RED CELL MORPH Reviewed: see result s of individual morphologies Normal [facility] Comment on above: Order Comment: Speci men Type: BLOOD SPECIMENOrdering Facility: [facility] Address: [address] [place] [address] Performed By: #### 5 7021-8 ####[facility] LABCLIA [id number] [place] [address] [place] WBC (Bld) [#/Vol] 3.71 10*3/uL Normal 3.70-11.00 [facility] Comment on above: Order Comment: Speci men Type: BLOOD SPECIMENOrdering Facility: [facility] Address: [address] [place] [address] Performed By: #### 5 7021-8 ####[facility] LABCLIA [id number] [place] [address] [place] Comprehensive metabolic 2000 panelon 09-25-2023 Albumin [Mass/Vol] 3.0 g/dL Low 3.9-4.9 [facility] Comment on above: Order Comment: Speci men Type: BLOOD SPECIMENOrdering Facility: [facility] Address: [address] [place] [address] Performed By: #### 1 9123-9, 2777-1, 62636-5, 3084-1 ####[facility] LABCLIA [id number] [place] [address] [place] ALP [Catalytic activity/Vol] 72 U/L Normal 34-123 [facility] Comment on above: Order Comment: Speci men Type: BLOOD SPECIMENOrdering Facility: [facility] Address: [address] [place] [address] Performed By: #### 1 9123-9, 2777-1, 24240-2, 308-1 ####[facility] LABCLIA [id number] [place] [address] [place] ALT [Catalytic activity/Vol] 25 U/L Normal 7-38 [facility] Comment on above: Order Comment: Speci men Type: BLOOD SPECIMENOrdering Facility: [facility] Address: [address] [place] [address] Performed By: #### 1 9123-9, 2777-1, 96183-7, 3083-1 ####[facility] LABCLIA [id number] [place] [address] [place] Anion gap [Moles/Vol] 10 mmol/L Normal 9-18 [facility] Comment on above: Order Comment: Speci men Type: BLOOD SPECIMENOrdering Facility: [facility] Address: [address] [place] [address] Performed By: #### 1 9123-9, 2777-1, 25423-1, 3083-1 ####[facility] LABIA [id number] [place] [address] [place] AST [Catalytic activity/Vol] 25 U/L Normal 13-35 [facility] Comment on above: Order Comment: Speci men Type: BLOOD SPECIMENOrdering Facility: [facility] Address: [address] [place] [address] Performed By: #### 1 9123-9, 2777-1, 69570-8, 308-1 ####[facility] LABCLIA [id number] [place] [address] [place] Bilirubin [Mass/Vol] 0.7 mg/dL Normal 0.2-1.3 [facility] Comment on above: Order Comment: Speci men Type: BLOOD SPECIMENOrdering Facility: [facility] Address: [address] [place] [address] Performed By: #### 1 9123-9, 2777-1, 46679-5, 3083- ####[facility] LABCLIA [id number] [address] [address] [place] Calcium [Mass/Vol] 8.6 mg/dL Normal 8.5-10.2 [facility] Comment on above: Order Comment: Speci men Type: BLOOD SPECIMENOrdering Facility: [facility] Address: [address] [place] [address] Performed By: #### 1 9123-9, 2777-1, 65660-1, 3083- ####[facility] LABIA [id number] [place] [address] [place] Chloride [Moles/Vol] 106 mmol/L High 97-105 [facility] Comment on above: Order Comment: Speci men Type: BLOOD SPECIMENOrdering Facility: [facility] Address: [address] [place] [address] Performed By: #### 1 9123-9, 2777-1, 61582-9, 3083- ####[facility] LABIA [id number] [place] [address] [place] CO2 [Moles/Vol] 23 mmol/L Normal 22-30 [facility] Comment on above: Order Comment: Speci men Type: BLOOD SPECIMENOrdering Facility: [facility] Address: [address] [place] [address] Performed By: #### 1 9123-9, 2777-1, 67396-9, 3083- ####[facility] LABIA [id number] [place] [address] [place] Creatinine [Mass/Vol] 0.57 mg/dL Low 0.58-0.96 [facility] Comment on above: Order Comment: Speci men Type: BLOOD SPECIMENOrdering Facility: [facility] Address: [address] [place] [address] Performed By: #### 1 9123-9, 2777-1, 43512-7, 3084-1 ####[facility] LABCLIA [id number] [place] [address] [place] Creatinine and Glomerular filtration rate.predicted panel (S/P/Bld) 91 mL/min/1.73m??? Normal >=60 [facility] Comment on above: Order Comment: Qi reynolds Type: BLOOD SPECIMENOrdering Facility: [facility] Address: [address] [place] [address] Result Comment: Akiko mated Glomerular Filtration Rate (eGFR) is calculated using the 2020 CKD-EPI creatinine equation. This equation utilizes serum creatinine, sex, and age as parameters. The creatinine assay has traceable calibration to isotope dilution-mass spectrometry. Refer to KDIGO guidelines for clinical interpretation. In patients with unstable renal function, e.g. those with acute kidney injury, the eGFR may not accurately reflect actual GFR. Performed By: #### 1 9123-9, 2777-1, 39226-9, 3084-1 ####[facility] LABCLIA [id number] [place] [id number] [place] Glucose [Mass/Vol] 97 mg/dL Normal 74-99 [facility] Comment on above: Order Comment: Qi reynolds Type: BLOOD SPECIMENOrdering Facility: [facility] Address: [address] [place] [address] Result Comment: The [place] [employer] (ADA) provides guidance for cutoff values for fasting glucose and random glucose. The ADA defines fasting as no caloric intake for at least 8 hours. Fasting plasma glucose results between 100 to 125 mg/dL indicate increased risk for diabetes (prediabetes).Fasting plasma glucose results greater than or equal to 126 mg/dL meet the criteria for diagnosis of diabetes. In the absence of unequivocal hyperglycemia, results should be confirmed by repeat testing. In a patient with classic symptoms of hyperglycemia or hyperglycemic crisis, random plasma glucose results greater than or equal to 200 mg/dL meet the criteria for diagnosis of diabetes.Reference: Standards of Medical Care in Diabetes 2016, [place] [employer]. Diabetes Care. 2016.39(Suppl 1). Performed By: #### 1 9123-9, 2777-1, 81808-1, 3083- ####[facility] LABCLIA [id number] [address] [address] [place] Potassium [Moles/Vol] 3.6 mmol/L Low 3.7-5.1 [facility] Comment on above: Order Comment: Speci men Type: BLOOD SPECIMENOrdering Facility: [facility] Address: [address] [place] [address] Performed By: #### 1 9123-9, 2777-1, 82588-5, 3083- ####[facility] LABCLIA [id number] [place] [address] [place] Protein [Mass/Vol] 5.3 g/dL Low 6.3-8.0 [facility] Comment on above: Order Comment: Speci men Type: BLOOD SPECIMENOrdering Facility: [facility] Address: [address] [place] [address] Performed By: #### 1 9123-9, 2777-1, 97348-4, 3083- ####[facility] LABIA [id number] [place] [id number] [place] Sodium [Moles/Vol] 139 mmol/L Normal 136-144 [facility] Comment on above: Order Comment: Speci men Type: BLOOD SPECIMENOrdering Facility: [facility] Address: [address] [place] [address] Performed By: #### 1 9123-9, 2777-1, 18513-3, 3083- ####[facility] LABCLIA [id number] [place] [id number] [place] Urea nitrogen [Mass/Vol] 11 mg/dL Normal 7-21 [facility] Comment on above: Order Comment: Speci men Type: BLOOD SPECIMENOrdering Facility: [facility] Address: [address] [place] [address] Performed By: #### 1 9123-9, 2777-1, 53799-0, 3084-1 ####[facility] LABCLIA [id number] [place] [id number] [place] Fibrinogen PPP-mCncon 2023 Fibrinogen Coag (PPP) [Mass/Vol] 539 mg/dL High 200-400 [facility] Comment on above: Order Comment: Speci men Type: BLOOD SPECIMENOrdering Facility: [facility] Address: [address] [place] [address] Result Comment: Resu lt rechecked.Sample checked for clot. Performed By: #### 3 255-7, 45988-2, 40038-6 ####[facility] LABCLIA [id number] [place] [address] [place] HISTORY PHYSICALon HISTORY PHYSICAL Normal [facility] IR PORTOCATH PLACEMENTon IR PORTOCATH PLACEMENT Normal [facility] Magnesium SerPl-mCncon 09-24 Magnesium [Mass/Vol] 2.4 mg/dL High 1.7-2.3 [facility] Comment on above: Order Comment: Speci men Type: BLOOD SPECIMENOrdering Facility: [facility] Address: [address] [place] [address] Performed By: #### 1 9123-9, 2777-1, 08139-5, 3084-1 ####[facility] LABCLIA [id number] [place] [id number] [place] PT EDon 09-25-2023 PT ED Normal [facility] PT panel Coag (PPP)on 2023 INR Coag (PPP) [Relative time] 1.2 {INR} Normal 0.9-1.3 [facility] Comment on above: Order Comment: Speci men Type: BLOOD SPECIMENOrdering Facility: [facility] Address: [address] [place] [address] Result Comment: Clementine min K Antagonist (VKA) Therapeutic Range: INR 2 to 3 (Target INR of 2.5)Note: For patients treated with VKA drugs, such as warfarin, the [employer] 2012 Guideline recommends a therapeutic INR range of 2 to 3 (target INR of 2.5). This recommendation includes high-risk patients with antiphospholipid syndrome with previous arterial or venous thromboembolism, current-generation mechanical or bioprosthetic aortic heart valve replacement.Note: Patients with mechanical aortic valve replacement and additional risk factors for thromboembolic events (atrial fibrillation, previous thromboembolism, LV dysfunction, hypercoagulable conditions) or an older generation mechanical AVR (i.e., ball in-Cage) or any mechanical MVR should have a INR therapeutic range of 2.5 to 3.5 (target INR of 3).Collins HUTCHINS, et al. Chest 2012, 141:[id number]-[id number] RA, et al. [facility] 2017, 70: 252-289 Performed By: #### 3 255-7, 51467-0, 22792-0 ####[facility] [id number] [place] [address] [place] PT Coag (PPP) [Time] 12.9 s Normal 9.7-13.0 [facility] Comment on above: Order Comment: Speci men Type: BLOOD SPECIMENOrdering Facility: [facility] Address: [address] [place] [address] Performed By: #### 3 255-7, 02355-6, 59490-6 ####[facility] [id number] [place] [id number] [place] Phosphate SerPl-mCncon 09-24 Phosphate [Mass/Vol] 1.9 mg/dL Low 2.7-4.8 [facility] Comment on above: Order Comment: Speci men Type: BLOOD SPECIMENOrdering Facility: [facility] Address: [address] [place] [address] Performed By: #### 1 9123-9, 2777-1, 91744-9, 3084-1 ####[facility] LABCLIA [id number] [address] [address] [place] SOCIAL WORKon 09-25-2023 SOCIAL WORK Normal [facility] Urate SerPl-mCncon Urate [Mass/Vol] 1.8 mg/dL Low 2.5-6.6 [facility] Comment on above: Order Comment: Speci men Type: BLOOD SPECIMENOrdering Facility: [facility] Address: [address] [place] [address] Performed By: #### 1 9123-9, 2777-1, 27600-5, 3084-1 ####[facility] LABIA [id number] [place] [address] [place] aPTT PPPon 09-25-2023 aPTT Coag (PPP) [Time] 36.2 s High 23.0-32.4 [facility] Comment on above: Order Comment: Speci men Type: BLOOD SPECIMENOrdering Facility: [facility] Address: [address] [place] [address] Performed By: #### 3 255-7, 41226-9, 68001-3 ####[facility] LABIA [id number] [place] [address] [place] ALLIED HEALTHon 09-24-2023 ALLIED HEALTH Normal [facility] CASE MANAGEMon 09-24-2023 CASE MANAGEM Normal [facility] CBC W Auto Differential pane l (Bld)on 09-24-2023 Anisocytosis Ql (Bld) Present Normal [facility] Comment on above: Order Comment: Speci men Type: BLOOD SPECIMENOrdering Facility: [facility] Address: [address] [place] [address] Performed By: #### 5 7021-8 ####[facility] LABCLIA [id number] [place] [address] [place] Basophils (Bld) [#/Vol] 0.00 10*3/uL Normal <0.11 [facility] Comment on above: Order Comment: Speci men Type: BLOOD SPECIMENOrdering Facility: [facility] Address: [address] [place] [address] Performed By: #### 5 7021-8 ####[facility] LABCLIA [id number] [place] [address] [place] Basophils/100 WBC (Bld) 0.0 % Normal [facility] Comment on above: Order Comment: Speci men Type: BLOOD SPECIMENOrdering Facility: [facility] Address: [address] [place] [address] Performed By: #### 5 7021-8 ####[facility] LABCLIA [id number] [place] [address] [place] BLAST% 60.0 % High <=0.0 [facility] Comment on above: Order Comment: Speci men Type: BLOOD SPECIMENOrdering Facility: [facility] Address: [address] [place] [address] Performed By: #### 5 7021-8 ####[facility] LABCLIA [id number] [place] [address] [place] Dacrocytes LM Ql (Bld) Few Normal [facility] Comment on above: Order Comment: Speci men Type: BLOOD SPECIMENOrdering Facility: [facility] Address: [address] [place] [address] Performed By: #### 5 7021-8 ####[facility] LABCLIA [id number] [place] [address] [place] Differential cell count method Nom (Bld) Manual Normal [facility] Comment on above: Order Comment: Speci men Type: BLOOD SPECIMENOrdering Facility: [facility] Address: [address] [place] [address] Performed By: #### 5 7021-8 ####[facility] LABCLIA [id number] [place] [address] [place] Eosinophils (Bld) [#/Vol] 0.00 10*3/uL Normal <0.46 [facility] Comment on above: Order Comment: Speci men Type: BLOOD SPECIMENOrdering Facility: [facility] Address: [address] [place] [address] Performed By: #### 5 7021-8 ####[facility] LABCLIA [id number] [place] [address] [place] Eosinophils/100 WBC (Bld) 0.0 % Normal [facility] Comment on above: Order Comment: Speci men Type: BLOOD SPECIMENOrdering Facility: [facility] Address: [address] [place] [address] Performed By: #### 5 7021-8 ####[facility] LABCLIA [id number] [place] [address] [place] Erythrocyte distribution width (RBC) [Ratio] 21.8 % High 11.5-15.0 [facility] Comment on above: Order Comment: Speci men Type: BLOOD SPECIMENOrdering Facility: [facility] Address: [address] [place] [address] Performed By: #### 5 7021-8 ####[facility] LABCLIA [id number] [place] [address] [place] Hematocrit (Bld) [Volume fraction] 19.9 % Low 36.0-46.0 [facility] Comment on above: Order Comment: Speci men Type: BLOOD SPECIMENOrdering Facility: [facility] Address: [address] [place] [address] Performed By: #### 5 7021-8 ####[facility] LABCLIA [id number] [place] [address] [place] Hemoglobin (Bld) [Mass/Vol] 6.5 g/dL Low 11.5-15.5 [facility] Comment on above: Order Comment: Speci men Type: BLOOD SPECIMENOrdering Facility: [facility] Address: [address] [place] [address] Performed By: #### 5 7021-8 ####[facility] LABCLIA [id number] [place] [address] [place] Lymphocytes (Bld) [#/Vol] 0.93 10*3/uL Low 1.00-4.00 [facility] Comment on above: Order Comment: Speci men Type: BLOOD SPECIMENOrdering Facility: [facility] Address: [address] [place] [address] Performed By: #### 5 7021-8 ####[facility] LABCLIA [id number] [place] [address] [place] Lymphocytes/100 WBC (Bld) 22.0 % Normal [facility] Comment on above: Order Comment: Speci men Type: BLOOD SPECIMENOrdering Facility: [facility] Address: [address] [place] [address] Performed By: #### 5 7021-8 ####[facility] LABCLIA [id number] [place] [address] [place] MCH (RBC) [Entitic mass] 31.0 pg Normal 26.0-34.0 [facility] Comment on above: Order Comment: Speci men Type: BLOOD SPECIMENOrdering Facility: [facility] Address: [address] [place] [address] Performed By: #### 5 7021-8 ####[facility] LABCLIA [id number] [place] [address] [place] MCHC (RBC) [Mass/Vol] 32.7 g/dL Normal 30.5-36.0 [facility] Comment on above: Order Comment: Speci men Type: BLOOD SPECIMENOrdering Facility: [facility] Address: [address] [place] [address] Performed By: #### 5 7021-8 ####[facility] LABCLIA [id number] [place] [address] [place] MCV (RBC) [Entitic vol] 94.8 fL Normal 80.0-100.0 [facility] Comment on above: Order Comment: Speci men Type: BLOOD SPECIMENOrdering Facility: [facility] Address: [address] [place] [address] Performed By: #### 5 7021-8 ####[facility] LABCLIA [id number] [place] [address] [place] Metamyelocytes/100 WBC (Bld) 1.0 % Normal [facility] Comment on above: Order Comment: Speci men Type: BLOOD SPECIMENOrdering Facility: [facility] Address: [address] [place] [address] Performed By: #### 5 7021-8 ####[facility] LABCLIA [id number] [place] [address] [place] Monocytes (Bld) [#/Vol] 0.00 10*3/uL Normal <0.87 [facility] Comment on above: Order Comment: Speci men Type: BLOOD SPECIMENOrdering Facility: [facility] Address: [address] [place] [address] Performed By: #### 5 7021-8 ####[facility] LABCLIA [id number] [place] [address] [place] Monocytes/100 WBC (Bld) 0.0 % Normal [facility] Comment on above: Order Comment: Speci men Type: BLOOD SPECIMENOrdering Facility: [facility] Address: [address] [place] [address] Performed By: #### 5 7021-8 ####[facility] LABCLIA [id number] [place] [address] [place] Neutrophils (Bld) [#/Vol] 0.72 10*3/uL Low 1.45-7.50 [facility] Comment on above: Order Comment: Speci men Type: BLOOD SPECIMENOrdering Facility: [facility] Address: [address] [place] [address] Performed By: #### 5 7021-8 ####[facility] LABCLIA [id number] [place] [address] [place] Neutrophils/100 WBC (Bld) 17.0 % Normal [facility] Comment on above: Order Comment: Speci men Type: BLOOD SPECIMENOrdering Facility: [facility] Address: [address] [place] [address] Performed By: #### 5 7021-8 ####[facility] LABCLIA [id number] [place] [address] [place] Nucleated RBC (Bld) [#/Vol] 10*3/uL Normal <0.01 [facility] Comment on above: Order Comment: Speci men Type: BLOOD SPECIMENOrdering Facility: [facility] Address: [address] [place] [address] Performed By: #### 5 7021-8 ####[facility] LABCLIA [id number] [place] [address] [place] Nucleated RBC/100 WBC (Bld) [Ratio] 0.0 /100 WBC Normal [facility] Comment on above: Order Comment: Speci men Type: BLOOD SPECIMENOrdering Facility: [facility] Address: [address] [place] [address] Performed By: #### 5 7021-8 ####[facility] LABCLIA [id number] [place] [address] [place] Ovalocytes LM Ql (Bld) Few Normal [facility] Comment on above: Order Comment: Speci men Type: BLOOD SPECIMENOrdering Facility: [facility] Address: [address] [place] [address] Performed By: #### 5 7021-8 ####[facility] LABCLIA [id number] [place] [address] [place] Platelet mean volume (Bld) [Entitic vol] Normal [facility] Comment on above: Order Comment: Speci men Type: BLOOD SPECIMENOrdering Facility: [facility] Address: [address] [place] [address] Result Comment: Unab le to Report. Performed By: #### 5 7021-8 ####[facility] LABCLIA [id number] [place] [address] [place] Platelets (Bld) [#/Vol] 3 10*3/uL Critically low 150-400 [facility] Comment on above: Order Comment: Speci men Type: BLOOD SPECIMENOrdering Facility: [facility] Address: [address] [place] [address] Result Comment: Resu lts checked and verified.No clot detected. Performed By: #### 5 7021-8 ####[facility] LABCLIA [id number] [place] [address] [place] Platelets Estimate (Bld) [#/Vol] Decreased Normal [facility] Comment on above: Order Comment: Speci men Type: BLOOD SPECIMENOrdering Facility: [facility] Address: [address] [place] [address] Performed By: #### 5 7021-8 ####[facility] LABCLIA [id number] [place] [address] [place] Polychromasia LM Ql (Bld) Slight Normal [facility] Comment on above: Order Comment: Speci men Type: BLOOD SPECIMENOrdering Facility: [facility] Address: [address] [place] [address] Performed By: #### 5 7021-8 ####[facility] LABCLIA [id number] [place] [address] [place] RBC (Bld) [#/Vol] 2.10 10*6/uL Low 3.90-5.20 [facility] Comment on above: Order Comment: Speci men Type: BLOOD SPECIMENOrdering Facility: [facility] Address: [address] [place] [address] Performed By: #### 5 7021-8 ####[facility] LABCLIA [id number] [place] [address] [place] RBC FRAGMENTS Few Abnormal None Seen [facility] Comment on above: Order Comment: Speci men Type: BLOOD SPECIMENOrdering Facility: [facility] Address: [address] [place] [address] Performed By: #### 5 7021-8 ####[facility] LABCLIA [id number] [place] [address] [place] RED CELL MORPH Reviewed: see result s of individual morphologies Normal [facility] Comment on above: Order Comment: Speci men Type: BLOOD SPECIMENOrdering Facility: [facility] Address: [address] [place] [address] Performed By: #### 5 7021-8 ####[facility] LABCLIA [id number] [place] [address] [place] SPHEROCYTES Few Normal [facility] Comment on above: Order Comment: Speci men Type: BLOOD SPECIMENOrdering Facility: [facility] Address: [address] [place] [address] Performed By: #### 5 7021-8 ####[facility] LABCLIA [id number] [place] [address] [place] WBC (Bld) [#/Vol] 4.22 10*3/uL Normal 3.70-11.00 [facility] Comment on above: Order Comment: Speci men Type: BLOOD SPECIMENOrdering Facility: [facility] Address: [address] [place] [address] Performed By: #### 5 7021-8 ####[facility] LABCLIA [id number] [place] [address] [place] WBC Left Shift Ql (Bld) Present Normal [facility] Comment on above: Order Comment: Speci men Type: BLOOD SPECIMENOrdering Facility: [facility] Address: [address] [place] [address] Performed By: #### 5 7021-8 ####[facility] LABCLIA [id number] [place] [address] [place] Comprehensive metabolic 2000 panelon 09-24-2023 Albumin [Mass/Vol] 2.8 g/dL Low 3.9-4.9 [facility] Comment on above: Order Comment: Speci men Type: BLOOD SPECIMENOrdering Facility: [facility] Address: [address] [place] [address] Performed By: #### 2 4323-8, 22789-1, 2777-1, 3084-1 ####[facility] LABCLIA [id number] [place] [address] [place] ALP [Catalytic activity/Vol] 60 U/L Normal 34-123 [facility] Comment on above: Order Comment: Speci men Type: BLOOD SPECIMENOrdering Facility: [facility] Address: [address] [place] [address] Performed By: #### 2 4323-8, 70267-3, 2777-1, 3084-1 ####[facility] LABCLIA [id number] [place] [address] [place] ALT [Catalytic activity/Vol] 22 U/L Normal 7-38 [facility] Comment on above: Order Comment: Speci men Type: BLOOD SPECIMENOrdering Facility: [facility] Address: [address] [place] [address] Performed By: #### 2 4323-8, 74868-7, 2777-1, 3084-1 ####[facility] LABCLIA [id number] [place] [address] [place] Anion gap [Moles/Vol] 8 mmol/L Low 9-18 [facility] Comment on above: Order Comment: Speci men Type: BLOOD SPECIMENOrdering Facility: [facility] Address: [address] [place] [address] Performed By: #### 2 4323-8, 79293-4, 7-1, 3084-1 ####[facility] LABCLIA [id number] [place] [address] [place] AST [Catalytic activity/Vol] 20 U/L Normal 13-35 [facility] Comment on above: Order Comment: Speci men Type: BLOOD SPECIMENOrdering Facility: [facility] Address: [address] [place] [address] Performed By: #### 2 4323-8, 02700-6, 2776-1, 3084-1 ####[facility] LABCLIA [id number] [place] [address] [place] Bilirubin [Mass/Vol] 0.5 mg/dL Normal 0.2-1.3 [facility] Comment on above: Order Comment: Speci men Type: BLOOD SPECIMENOrdering Facility: [facility] Address: [address] [place] [address] Performed By: #### 2 4323-8, 55403-6, 2776-, 3084-1 ####[facility] LABCLIA [id number] [place] [address] [place] Calcium [Mass/Vol] 8.3 mg/dL Low 8.5-10.2 [facility] Comment on above: Order Comment: Speci men Type: BLOOD SPECIMENOrdering Facility: [facility] Address: [address] [place] [address] Performed By: #### 2 4323-8, 21846-7, 7-1, 3084-1 ####[facility] LABCLIA [id number] [place] [address] [place] Chloride [Moles/Vol] 104 mmol/L Normal 97-105 [facility] Comment on above: Order Comment: Speci men Type: BLOOD SPECIMENOrdering Facility: [facility] Address: [address] [place] [address] Performed By: #### 2 4323-8, 95008-3, 2777-1, 3084-1 ####[facility] LABCLIA [id number] [place] [id number] [place] CO2 [Moles/Vol] 26 mmol/L Normal 22-30 [facility] Comment on above: Order Comment: Speci men Type: BLOOD SPECIMENOrdering Facility: [facility] Address: [address] [place] [address] Performed By: #### 2 4323-8, 23084-3, 7-1, 3084-1 ####[facility] LABCLIA [id number] [place] [address] [place] Creatinine [Mass/Vol] 0.60 mg/dL Normal 0.58-0.96 [facility] Comment on above: Order Comment: Speci men Type: BLOOD SPECIMENOrdering Facility: [facility] Address: [address] [place] [address] Performed By: #### 2 4323-8, 32778-6, 2777-1, 3084-1 ####[facility] LABCLIA [id number] [place] [address] [place] Creatinine and Glomerular filtration rate.predicted panel (S/P/Bld) 90 mL/min/1.73m??? Normal >=60 [facility] Comment on above: Order Comment: Speci men Type: BLOOD SPECIMENOrdering Facility: [facility] Address: [address] [place] [address] Result Comment: Akiko mated Glomerular Filtration Rate (eGFR) is calculated using the 2020 CKD-EPI creatinine equation. This equation utilizes serum creatinine, sex, and age as parameters. The creatinine assay has traceable calibration to isotope dilution-mass spectrometry. Refer to KDIGO guidelines for clinical interpretation. In patients with unstable renal function, e.g. those with acute kidney injury, the eGFR may not accurately reflect actual GFR. Performed By: #### 2 4323-8, , 2776-07, 3083-07 ####[facility] LABCLIA [id number] [address] [address] [place] Glucose [Mass/Vol] 89 mg/dL Normal 74-99 [facility] Comment on above: Order Comment: Qi reynolds Type: BLOOD SPECIMENOrdering Facility: [facility] Address: [address] [place] [address] Result Comment: The [place] [employer] (ADA) provides guidance for cutoff values for fasting glucose and random glucose. The ADA defines fasting as no caloric intake for at least 8 hours. Fasting plasma glucose results between 100 to 125 mg/dL indicate increased risk for diabetes (prediabetes).Fasting plasma glucose results greater than or equal to 126 mg/dL meet the criteria for diagnosis of diabetes. In the absence of unequivocal hyperglycemia, results should be confirmed by repeat testing. In a patient with classic symptoms of hyperglycemia or hyperglycemic crisis, random plasma glucose results greater than or equal to 200 mg/dL meet the criteria for diagnosis of diabetes.Reference: Standards of Medical Care in Diabetes 2016, [place] [employer]. Diabetes Care. 2016.39(Suppl 1). Performed By: #### 2 4323-8, , 2776-07, 3083-07 ####[facility] LABCLIA [id number] [address] [address] [place] Potassium [Moles/Vol] 3.2 mmol/L Low 3.7-5.1 [facility] Comment on above: Order Comment: Qi reynolds Type: BLOOD SPECIMENOrdering Facility: [facility] Address: [address] [place] [address] Performed By: #### 2 4323-8, , 2776-07, 3083- ####[facility] LABCLIA [id number] [address] [address] [place] Protein [Mass/Vol] 4.9 g/dL Low 6.3-8.0 [facility] Comment on above: Order Comment: Speci men Type: BLOOD SPECIMENOrdering Facility: [facility] Address: [address] [place] [address] Performed By: #### 2 4323-8, 13490-3, 2777-1, 3084-1 ####[facility] LABCLIA [id number] [place] [address] [place] Sodium [Moles/Vol] 138 mmol/L Normal 136-144 [facility] Comment on above: Order Comment: Speci men Type: BLOOD SPECIMENOrdering Facility: [facility] Address: [address] [place] [address] Performed By: #### 2 4323-8, 91766-2, 2777-1, 3084-1 ####[facility] LABCLIA [id number] [place] [address] [place] Urea nitrogen [Mass/Vol] 11 mg/dL Normal 7-21 [facility] Comment on above: Order Comment: Speci men Type: BLOOD SPECIMENOrdering Facility: [facility] Address: [address] [place] [address] Performed By: #### 2 4323-8, 99578-9, 2777-1, 3084-1 ####[facility] LABCLIA [id number] [place] [address] [place] Fibrinogen PPP-mCncon 2023 Fibrinogen Coag (PPP) [Mass/Vol] 523 mg/dL High 200-400 [facility] Comment on above: Order Comment: Speci men Type: BLOOD SPECIMENOrdering Facility: [facility] Address: [address] [place] [address] Performed By: #### 3 255-7, 56367-6, 18769-0 ####[facility] LABCLIA [id number] [place] [address] [place] Magnesium SerPl-mCncon 09-23 Magnesium [Mass/Vol] 2.3 mg/dL Normal 1.7-2.3 [facility] Comment on above: Order Comment: Speci men Type: BLOOD SPECIMENOrdering Facility: [facility] Address: [address] [place] [address] Performed By: #### 2 4323-8, 27798-2, 2777-1, 3084-1 ####[facility] LABIA [id number] [place] [address] [place] NURSING PROGon 09-24-2023 NURSING PROG Normal [facility] PT panel Coag (PPP)on 2023 INR Coag (PPP) [Relative time] 1.3 {INR} Normal 0.9-1.3 [facility] Comment on above: Order Comment: Speci men Type: BLOOD SPECIMENOrdering Facility: [facility] Address: [address] [place] [address] Result Comment: Clementine min K Antagonist (VKA) Therapeutic Range: INR 2 to 3 (Target INR of 2.5)Note: For patients treated with VKA drugs, such as warfarin, the [place] [employer] 2012 Guideline recommends a therapeutic INR range of 2 to 3 (target INR of 2.5). This recommendation includes high-risk patients with antiphospholipid syndrome with previous arterial or venous thromboembolism, current-generation mechanical or bioprosthetic aortic heart valve replacement.Note: Patients with mechanical aortic valve replacement and additional risk factors for thromboembolic events (atrial fibrillation, previous thromboembolism, LV dysfunction, hypercoagulable conditions) or an older generation mechanical AVR (i.e., ball in-Cage) or any mechanical MVR should have a INR therapeutic range of 2.5 to 3.5 (target INR of 3).Collins GH, et al. Chest 2012, 141:7S-47SNishimura RA, et al. [facility] 2017, 70: 252-289 Performed By: #### 3 255-7, 45625-2, 46026-7 ####[facility] LABCLIA [id number] [place] [address] [place] PT Coag (PPP) [Time] 13.9 s High 9.7-13.0 [facility] Comment on above: Order Comment: Speci men Type: BLOOD SPECIMENOrdering Facility: [facility] Address: [address] [place] [address] Performed By: #### 3 255-7, 81692-5, 13981-7 ####[facility] LABCLIA [id number] [address] [place] Phosphate SerPl-mCncon 09-23 Phosphate [Mass/Vol] 2.8 mg/dL Normal 2.7-4.8 [facility] Comment on above: Order Comment: Speci men Type: BLOOD SPECIMENOrdering Facility: [facility] Address: [address] [place] [address] Performed By: #### 2 4323-8, 46752-1, 2777-1, 3084-1 ####[facility] LABCLIA [id number] [address] [place] TYPE + SCREENon 09-24-2023 HISTORICAL AB SCR STATUS Positive Abnormal [facility] Comment on above: Order Comment: Speci men Type: BLOOD SPECIMENOrdering Facility: [facility] Address: [address] [place] [address] Performed By: #### T SCR ####[facility] BLOOD BANKCLIA [id number] [place] [address] [place] TYPE AND SCREEN EXPIRATION 09/27/2023 23:59 Normal [facility] Comment on above: Order Comment: Speci men Type: BLOOD SPECIMENOrdering Facility: [facility] Address: [address] [place] [address] Performed By: #### T SCR ####[facility] BLOOD BANKCLIA [id number] [place] [address] [place] Urate SerPl-mCncon Urate [Mass/Vol] 2.1 mg/dL Low 2.5-6.6 [facility] Comment on above: Order Comment: Speci men Type: BLOOD SPECIMENOrdering Facility: [facility] Address: [address] [place] [address] Performed By: #### 2 4323-8, 23351-2, 2777-1, 3084-1 ####[facility] LABCLIA [id number] [place] [address] [place] [place] aPTT PPPon 09-24-2023 aPTT Coag (PPP) [Time] 38.2 s High 23.0-32.4 [facility] Comment on above: Order Comment: Speci men Type: BLOOD SPECIMENOrdering Facility: [facility] Address: [address] [place] [address] Performed By: #### 3 255-7, 24684-6, 40141-5 ####[facility] LABCLIA [id number] [place] [address] [place] BMT REC INIT W/Uon ALLOGEN RESULTS TO FOLLOW See Allogen report to follow Normal [facility] Comment on above: Order Comment: Speci men Type: BLOOD SPECIMENOrdering Facility: [facility] Address: [address] [place] [address] Performed By: #### B MTRIW ####[facility]IES[facility]IA [id number] [place] [address] [place] CBC W Auto Differential pane l (Bld)on 09-23-2023 Anisocytosis Ql (Bld) Present Normal [facility] Comment on above: Order Comment: Speci men Type: BLOOD SPECIMENOrdering Facility: [facility] Address: [address] [place] [address] Performed By: #### 5 7021-8 ####[facility] LABCLIA [id number] [place] [address] [place] Basophilic stippling LM Ql (Bld) Occasional Normal [facility] Comment on above: Order Comment: Speci men Type: BLOOD SPECIMENOrdering Facility: [facility] Address: [address] [place] [address] Performed By: #### 5 7021-8 ####[facility] LABCLIA [id number] [place] [address] [place] Basophils (Bld) [#/Vol] 0.00 10*3/uL Normal <0.11 [facility] Comment on above: Order Comment: Speci men Type: BLOOD SPECIMENOrdering Facility: [facility] Address: [address] [place] [address] Performed By: #### 5 7021-8 ####[facility] LABCLIA [id number] [place] [address] [place] Basophils/100 WBC (Bld) 0.0 % Normal [facility] Comment on above: Order Comment: Speci men Type: BLOOD SPECIMENOrdering Facility: [facility] Address: [address] [place] [address] Performed By: #### 5 7021-8 ####[facility] LABCLIA [id number] [place] [address] [place] BLAST% 63.0 % High <=0.0 [facility] Comment on above: Order Comment: Speci men Type: BLOOD SPECIMENOrdering Facility: [facility] Address: [address] [place] [address] Performed By: #### 5 7021-8 ####[facility] LABCLIA [id number] [place] [address] [place] Dacrocytes LM Ql (Bld) Few Normal [facility] Comment on above: Order Comment: Speci men Type: BLOOD SPECIMENOrdering Facility: [facility] Address: [address] [place] [address] Performed By: #### 5 7021-8 ####[facility] LABCLIA [id number] [place] [address] [place] Differential cell count method Nom (Bld) Manual Normal [facility] Comment on above: Order Comment: Speci men Type: BLOOD SPECIMENOrdering Facility: [facility] Address: [address] [place] [address] Performed By: #### 5 7021-8 ####[facility] LABCLIA [id number] [place] [address] [place] Eosinophils (Bld) [#/Vol] 0.00 10*3/uL Normal <0.46 [facility] Comment on above: Order Comment: Speci men Type: BLOOD SPECIMENOrdering Facility: [facility] Address: [address] [place] [address] Performed By: #### 5 7021-8 ####[facility] LABCLIA [id number] [place] [address] [place] Eosinophils/100 WBC (Bld) 0.0 % Normal [facility] Comment on above: Order Comment: Speci men Type: BLOOD SPECIMENOrdering Facility: [facility] Address: [address] [place] [address] Performed By: #### 5 7021-8 ####[facility] LABCLIA [id number] [place] [address] [place] Erythrocyte distribution width (RBC) [Ratio] 22.2 % High 11.5-15.0 [facility] Comment on above: Order Comment: Speci men Type: BLOOD SPECIMENOrdering Facility: [facility] Address: [address] [place] [address] Performed By: #### 5 7021-8 ####[facility] LABCLIA [id number] [place] [address] [place] Hematocrit (Bld) [Volume fraction] 22.7 % Low 36.0-46.0 [facility] Comment on above: Order Comment: Speci men Type: BLOOD SPECIMENOrdering Facility: [facility] Address: [address] [place] [address] Performed By: #### 5 7021-8 ####[facility] LABIA [id number] [place] [address] [place] Hemoglobin (Bld) [Mass/Vol] 7.7 g/dL Low 11.5-15.5 [facility] Comment on above: Order Comment: Speci men Type: BLOOD SPECIMENOrdering Facility: [facility] Address: [address] [place] [address] Performed By: #### 5 7021-8 ####[facility] LABIA [id number] [place] [address] [place] Lymphocytes (Bld) [#/Vol] 1.52 10*3/uL Normal 1.00-4.00 [facility] Comment on above: Order Comment: Speci men Type: BLOOD SPECIMENOrdering Facility: [facility] Address: [address] [place] [address] Performed By: #### 5 7021-8 ####[facility] LABIA [id number] [place] [address] [place] Lymphocytes/100 WBC (Bld) 13.0 % Normal [facility] Comment on above: Order Comment: Speci men Type: BLOOD SPECIMENOrdering Facility: [facility] Address: [address] [place] [address] Performed By: #### 5 7021-8 ####[facility] LABIA [id number] [place] [address] [place] MCH (RBC) [Entitic mass] 32.1 pg Normal 26.0-34.0 [facility] Comment on above: Order Comment: Speci men Type: BLOOD SPECIMENOrdering Facility: [facility] Address: [address] [place] [address] Performed By: #### 5 7021-8 ####[facility] LABIA [id number] [place] [address] [place] MCHC (RBC) [Mass/Vol] 33.9 g/dL Normal 30.5-36.0 [facility] Comment on above: Order Comment: Speci men Type: BLOOD SPECIMENOrdering Facility: [facility] Address: [address] [place] [address] Performed By: #### 5 7021-8 ####[facility] LABIA [id number] [place] [address] [place] MCV (RBC) [Entitic vol] 94.6 fL Normal 80.0-100.0 [facility] Comment on above: Order Comment: Speci men Type: BLOOD SPECIMENOrdering Facility: [facility] Address: [address] [place] [address] Performed By: #### 5 7021-8 ####[facility] LABCLIA [id number] [place] [address] [place] Monocytes (Bld) [#/Vol] 0.35 10*3/uL Normal <0.87 [facility] Comment on above: Order Comment: Speci men Type: BLOOD SPECIMENOrdering Facility: [facility] Address: [address] [place] [address] Performed By: #### 5 7021-8 ####[facility] LABIA [id number] [place] [address] [place] Monocytes/100 WBC (Bld) 3.0 % Normal [facility] Comment on above: Order Comment: Speci men Type: BLOOD SPECIMENOrdering Facility: [facility] Address: [address] [place] [address] Performed By: #### 5 7021-8 ####[facility] LABCLIA [id number] [place] [address] [place] MYELO% 1.0 % Normal [facility] Comment on above: Order Comment: Speci men Type: BLOOD SPECIMENOrdering Facility: [facility] Address: [address] [place] [address] Performed By: #### 5 7021-8 ####[facility] LABCLIA [id number] [place] [address] [place] Neutrophils (Bld) [#/Vol] 2.33 10*3/uL Normal 1.45-7.50 [facility] Comment on above: Order Comment: Speci men Type: BLOOD SPECIMENOrdering Facility: [facility] Address: [address] [place] [address] Performed By: #### 5 7021-8 ####[facility] LABCLIA [id number] [place] [address] [place] Neutrophils/100 WBC (Bld) 20.0 % Normal [facility] Comment on above: Order Comment: Speci men Type: BLOOD SPECIMENOrdering Facility: [facility] Address: [address] [place] [address] Performed By: #### 5 7021-8 ####[facility] LABCLIA [id number] [place] [address] [place] Nucleated RBC (Bld) [#/Vol] 0.12 10*3/uL High <0.01 [facility] Comment on above: Order Comment: Speci men Type: BLOOD SPECIMENOrdering Facility: [facility] Address: [address] [place] [address] Performed By: #### 5 7021-8 ####[facility] LABCLIA [id number] [place] [address] [place] Nucleated RBC/100 WBC (Bld) [Ratio] 1.0 /100 WBC Normal [facility] Comment on above: Order Comment: Speci men Type: BLOOD SPECIMENOrdering Facility: [facility] Address: [address] [place] [address] Performed By: #### 5 7021-8 ####[facility] LABCLIA [id number] [place] [address] [place] Ovalocytes LM Ql (Bld) Few Normal [facility] Comment on above: Order Comment: Speci men Type: BLOOD SPECIMENOrdering Facility: [facility] Address: [address] [place] [address] Performed By: #### 5 7021-8 ####[facility] LABCLIA [id number] [place] [address] [place] Platelet mean volume (Bld) [Entitic vol] Normal [facility] Comment on above: Order Comment: Speci men Type: BLOOD SPECIMENOrdering Facility: [facility] Address: [address] [place] [address] Result Comment: Unab le to Report. Performed By: #### 5 7021-8 ####[facility] LABIA [id number] [place] [address] [place] Platelets (Bld) [#/Vol] 5 10*3/uL Critically low 150-400 [facility] Comment on above: Order Comment: Speci men Type: BLOOD SPECIMENOrdering Facility: [facility] Address: [address] [place] [address] Result Comment: Plat elet count confirmed by manual review of peripheral blood smear. Results checked and verified.No clot detected. Performed By: #### 5 7021-8 ####[facility] LABCLIA [id number] [place] [address] [place] Platelets Estimate (Bld) [#/Vol] Decreased Normal [facility] Comment on above: Order Comment: Speci men Type: BLOOD SPECIMENOrdering Facility: [facility] Address: [address] [place] [address] Performed By: #### 5 7021-8 ####[facility] LABCLIA [id number] [place] [address] [place] Polychromasia LM Ql (Bld) Slight Normal [facility] Comment on above: Order Comment: Speci men Type: BLOOD SPECIMENOrdering Facility: [facility] Address: [address] [place] [address] Performed By: #### 5 7021-8 ####[facility] LABCLIA [id number] [place] [address] [place] RBC (Bld) [#/Vol] 2.40 10*6/uL Low 3.90-5.20 [facility] Comment on above: Order Comment: Speci men Type: BLOOD SPECIMENOrdering Facility: [facility] Address: [address] [place] [address] Performed By: #### 5 7021-8 ####[facility] LABCLIA [id number] [place] [address] [place] RBC FRAGMENTS Few Abnormal None Seen [facility] Comment on above: Order Comment: Speci men Type: BLOOD SPECIMENOrdering Facility: [facility] Address: [address] [place] [address] Performed By: #### 5 7021-8 ####[facility] LABCLIA [id number] [place] [address] [place] RED CELL MORPH Reviewed: see result s of individual morphologies Normal [facility] Comment on above: Order Comment: Speci men Type: BLOOD SPECIMENOrdering Facility: [facility] Address: [address] [place] [address] Performed By: #### 5 7021-8 ####[facility] LABCLIA [id number] [place] [address] [place] SPHEROCYTES Few Normal [facility] Comment on above: Order Comment: Speci men Type: BLOOD SPECIMENOrdering Facility: [facility] Address: [address] [place] [address] Performed By: #### 5 7021-8 ####[facility] LABCLIA [id number] [place] [address] [place] WBC (Bld) [#/Vol] 11.67 10*3/uL High 3.70-11.00 [facility] Comment on above: Order Comment: Speci men Type: BLOOD SPECIMENOrdering Facility: [facility] Address: [address] [place] [address] Performed By: #### 5 7021-8 ####[facility] LABCLIA [id number] [place] [address] [place] WBC Left Shift Ql (Bld) Present Normal [facility] Comment on above: Order Comment: Speci men Type: BLOOD SPECIMENOrdering Facility: [facility] Address: [address] [place] [address] Performed By: #### 5 7021-8 ####[facility] LABCLIA [id number] [place] [address] [place] CMV IgG Qnon 09-23-2023 CMV IGG QUAL Negative Normal Negative [facility] Comment on above: Order Comment: Speci men Type: BLOOD SPECIMENOrdering Facility: [facility] Address: [address] [place] [address] Result Comment: No s erological evidence of past exposure to Cytomegalovirus. Cannot exclude recent infection if the specimen collected within 4-6 weeks after infection. Performed By: #### 7 852-7 ####[facility] LABCLIA [id number] [place] [address] [place] CMV IgG SerPl-aCncon 024 CMV IgG Qn <0.20 Normal [facility] Comment on above: Order Comment: Speci [facility] Type: BLOOD SPECIMENOrdering Facility: [facility] Address: [address] [place] [address] Result Comment: The magnitude of the measured result is not indicative of the amount of antibody present.U/mL values are interpreted as follows:Negative <0.6Equivocal 0.6 to <0.70Positive >=0.70 Performed By: #### 7 852-7 ####[facility] LABCLIA [id number] [address] [address] [place] Comprehensive metabolic 2000 panelon 09-23-2023 Albumin [Mass/Vol] 2.9 g/dL Low 3.9-4.9 [facility] Comment on above: Order Comment: Speci men Type: BLOOD SPECIMENOrdering Facility: [facility] Address: [address] [place] [address] Performed By: #### 2 777-1, 69735-1, 03143-0, 3083- ####[facility] LABCLIA [id number] [place] [address] [place] ALP [Catalytic activity/Vol] 63 U/L Normal 34-123 [facility] Comment on above: Order Comment: Speci men Type: BLOOD SPECIMENOrdering Facility: [facility] Address: [address] [place] [address] Performed By: #### 2 777-1, 05727-5, , 3083-1 ####[facility] LABCLIA [id number] [place] [address] [place] ALT [Catalytic activity/Vol] 22 U/L Normal 7-38 [facility] Comment on above: Order Comment: Speci men Type: BLOOD SPECIMENOrdering Facility: [facility] Address: [address] [place] [address] Performed By: #### 2 777-1, 72708-6, 53991-0, 3083- ####[facility] LABCLIA [id number] [place] [id number] [place] Anion gap [Moles/Vol] 11 mmol/L Normal 9-18 [facility] Comment on above: Order Comment: Speci men Type: BLOOD SPECIMENOrdering Facility: [facility] Address: [address] [place] [address] Performed By: #### 2 777-1, 78433-5, 51905-3, 3083-1 ####[facility] LABCLIA [id number] [place] [id number] [place] AST [Catalytic activity/Vol] 28 U/L Normal 13-35 [facility] Comment on above: Order Comment: Speci men Type: BLOOD SPECIMENOrdering Facility: [facility] Address: [address] [place] [address] Performed By: #### 2 777-1, 70714-9, 79262-0, 3083- ####[facility] LABIA [id number] [place] [id number] [place] Bilirubin [Mass/Vol] 0.5 mg/dL Normal 0.2-1.3 [facility] Comment on above: Order Comment: Speci men Type: BLOOD SPECIMENOrdering Facility: [facility] Address: [address] [place] [address] Performed By: #### 2 777-1, 46207-8, , 3083-07 ####[facility] LABIA [id number] [place] [address] [place] Calcium [Mass/Vol] 8.5 mg/dL Normal 8.5-10.2 [facility] Comment on above: Order Comment: Speci men Type: BLOOD SPECIMENOrdering Facility: [facility] Address: [address] [place] [address] Performed By: #### 2 777-1, 18694-4, , 3083-07 ####[facility] LABIA [id number] [place] [id number] [place] Chloride [Moles/Vol] 101 mmol/L Normal 97-105 [facility] Comment on above: Order Comment: Speci men Type: BLOOD SPECIMENOrdering Facility: [facility] Address: [address] [place] [address] Performed By: #### 2 777-1, 33584-7, 79642-1, 3083- ####[facility] LABCLIA [id number] [place] [address] [place] CO2 [Moles/Vol] 24 mmol/L Normal 22-30 [facility] Comment on above: Order Comment: Specterrell men Type: BLOOD SPECIMENOrdering Facility: [facility] Address: [address] [place] [address] Performed By: #### 2 777-1, 98276-8, 38261-3, 3083- ####[facility] LABCLIA [id number] [place] [address] [place] Creatinine [Mass/Vol] 0.67 mg/dL Normal 0.58-0.96 [facility] Comment on above: Order Comment: Nikkii men Type: BLOOD SPECIMENOrdering Facility: [facility] Address: [address] [place] [address] Performed By: #### 2 777-1, 19354-5, , 3083-07 ####[facility] [id number] [place] [address] [place] Creatinine and Glomerular filtration rate.predicted panel (S/P/Bld) 88 mL/min/1.73m??? Normal >=60 [facility] Comment on above: Order Comment: Qi reynolds Type: BLOOD SPECIMENOrdering Facility: [facility] Address: [address] [place] [address] Result Comment: Akiko mated Glomerular Filtration Rate (eGFR) is calculated using the 2020 CKD-EPI creatinine equation. This equation utilizes serum creatinine, sex, and age as parameters. The creatinine assay has traceable calibration to isotope dilution-mass spectrometry. Refer to KDIGO guidelines for clinical interpretation. In patients with unstable renal function, e.g. those with acute kidney injury, the eGFR may not accurately reflect actual GFR. Performed By: #### 2 777-1, 16860-3, 55302-3, 3083- ####[facility] LABCLIA [id number] [place] [id number] [place] Glucose [Mass/Vol] 103 mg/dL High 74-99 [facility] Comment on above: Order Comment: Speci men Type: BLOOD SPECIMENOrdering Facility: [facility] Address: [address] [place] [address] Result Comment: The [place] [employer] (ADA) provides guidance for cutoff values for fasting glucose and random glucose. The ADA defines fasting as no caloric intake for at least 8 hours. Fasting plasma glucose results between 100 to 125 mg/dL indicate increased risk for diabetes (prediabetes).Fasting plasma glucose results greater than or equal to 126 mg/dL meet the criteria for diagnosis of diabetes. In the absence of unequivocal hyperglycemia, results should be confirmed by repeat testing. In a patient with classic symptoms of hyperglycemia or hyperglycemic crisis, random plasma glucose results greater than or equal to 200 mg/dL meet the criteria for diagnosis of diabetes.Reference: Standards of Medical Care in Diabetes 2016, [place] [employer]. Diabetes Care. 2016.39(Suppl 1). Performed By: #### 2 777-1, 83570-5, , 3083- ####[facility] LABCLIA [id number] [place] [address] [place] Potassium [Moles/Vol] 3.5 mmol/L Low 3.7-5.1 [facility] Comment on above: Order Comment: Speci men Type: BLOOD SPECIMENOrdering Facility: [facility] Address: [address] [place] [address] Performed By: #### 2 777-1, 61097-0, , 3083-07 ####[facility] LABCLIA [id number] [place] [address] [place] Protein [Mass/Vol] 5.1 g/dL Low 6.3-8.0 [facility] Comment on above: Order Comment: Speci men Type: BLOOD SPECIMENOrdering Facility: [facility] Address: [address] [place] [address] Performed By: #### 2 777-1, 75129-0, , 3083- ####[facility] LABCLIA [id number] [place] [address] [place] Sodium [Moles/Vol] 136 mmol/L Normal 136-144 [facility] Comment on above: Order Comment: Speci men Type: BLOOD SPECIMENOrdering Facility: [facility] Address: [address] [place] [address] Performed By: #### 2 777-1, 57246-0, 41697-2, 3084-1 ####[facility] LABIA [id number] [place] [address] [place] Urea nitrogen [Mass/Vol] 13 mg/dL Normal 7-21 [facility] Comment on above: Order Comment: Speci men Type: BLOOD SPECIMENOrdering Facility: [facility] Address: [address] [place] [address] Performed By: #### 2 777-1, 45599-1, 08415-6, 3084-1 ####[facility] [id number] [place] [address] [place] Fibrinogen PPP-mCncon 2023 Fibrinogen Coag (PPP) [Mass/Vol] 561 mg/dL High 200-400 [facility] Comment on above: Order Comment: Speci men Type: BLOOD SPECIMENOrdering Facility: [facility] Address: [address] [place] [address] Result Comment: Maya le checked for clot.Result rechecked. Performed By: #### 3 4528-0, 3255-7, 42021-9 ####[facility] LABIA [id number] [place] [id number] [place] MEDICAL EMERon 09-23-2023 MEDICAL EDMUND Normal [facility] Magnesium SerPl-mCncon 09-22 Magnesium [Mass/Vol] 2.1 mg/dL Normal 1.7-2.3 [facility] Comment on above: Order Comment: Speci men Type: BLOOD SPECIMENOrdering Facility: [facility] Address: [address] [place] [address] Performed By: #### 2 777-1, 63801-2, 69901-3, 3084-1 ####[facility] LABCLIA [id number] [place] [address] [place] NURSING PROGon 09-23-2023 NURSING PROG Normal [facility] PT panel Coag (PPP)on 2023 INR Coag (PPP) [Relative time] 1.4 {INR} High 0.9-1.3 [facility] Comment on above: Order Comment: Speci men Type: BLOOD SPECIMENOrdering Facility: [facility] Address: [address] [place] [address] Result Comment: Samp le checked for clot.Vitamin K Antagonist (VKA) Therapeutic Range: INR 2 to 3 (Target INR of 2.5)Note: For patients treated with VKA drugs, such as warfarin, the [place] [employer] 2012 Guideline recommends a therapeutic INR range of 2 to 3 (target INR of 2.5). This recommendation includes high-risk patients with antiphospholipid syndrome with previous arterial or venous thromboembolism, current-generation mechanical or bioprosthetic aortic heart valve replacement.Note: Patients with mechanical aortic valve replacement and additional risk factors for thromboembolic events (atrial fibrillation, previous thromboembolism, LV dysfunction, hypercoagulable conditions) or an older generation mechanical AVR (i.e., ball in-Cage) or any mechanical MVR should have a INR therapeutic range of 2.5 to 3.5 (target INR of 3).Collins GH, et al. Chest 2012, 141:7S-47SNishimura RA, et al. [facility] 2017, 70: 252-289 Performed By: #### 3 4528-0, 3255-7, 79264-0 ####[facility] LABCLIA [id number] [place] [address] [place] PT Coag (PPP) [Time] 14.6 s High 9.7-13.0 [facility] Comment on above: Order Comment: Speci men Type: BLOOD SPECIMENOrdering Facility: [facility] Address: [address] [place] [address] Performed By: #### 3 4528-0, 3255-7, 41922-2 ####[facility] LABCLIA [id number] [place] [address] [place] Phosphate SerPl-mCncon 09-22 Phosphate [Mass/Vol] 4.7 mg/dL Normal 2.7-4.8 [facility] Comment on above: Order Comment: Speci men Type: BLOOD SPECIMENOrdering Facility: [facility] Address: [address] [place] [address] Performed By: #### 2 777-1, 56929-6, 50214-5, 3084-1 ####[facility] LABCLIA [id number] [place] [address] [place] Urate SerPl-mCncon Urate [Mass/Vol] 2.8 mg/dL Normal 2.5-6.6 [facility] Comment on above: Order Comment: Speci men Type: BLOOD SPECIMENOrdering Facility: [facility] Address: [address] [place] [address] Performed By: #### 2 777-1, 33521-9, 87375-7, 3084-1 ####[facility] LABCLIA [id number] [place] [address] [place] Urinalysis complete panel (U )on 09-23-2023 Bacteria LM.HPF (Urine sed) [#/Area] Negative Normal Negative [facility] Comment on above: Order Comment: Speci men Type: URINE SPECIMENOrdering Facility: [facility] Address: [address] [place] [address] Performed By: #### 2 4356-8 ####[facility] LABCLIA [id number] [place] [address] [place] Bilirubin Ql (U) Negative Normal Negative [facility] Comment on above: Order Comment: Speci men Type: URINE SPECIMENOrdering Facility: [facility] Address: [address] [place] [address] Performed By: #### 2 4356-8 ####[facility] LABCLIA [id number] [place] [address] [place] Clarity (Unsp spec) Clear Normal Clear [facility] Comment on above: Order Comment: Speci men Type: URINE SPECIMENOrdering Facility: [facility] Address: [address] [place] [address] Performed By: #### 2 4356-8 ####[facility] LABCLIA [id number] [place] [address] [place] Color (U) Yellow Normal Yellow [facility] Comment on above: Order Comment: Speci men Type: URINE SPECIMENOrdering Facility: [facility] Address: [address] [place] [address] Performed By: #### 2 4356-8 ####[facility] LABCLIA [id number] [place] [address] [place] Epithelial cells LM.HPF (Urine sed) [#/Area] Few Normal [facility] Comment on above: Order Comment: Speci men Type: URINE SPECIMENOrdering Facility: [facility] Address: [address] [place] [address] Performed By: #### 2 4356-8 ####[facility] LABCLIA [id number] [place] [address] [place] Glucose Test strip (U) [Mass/Vol] Negative Normal Negative [facility] Comment on above: Order Comment: Speci men Type: URINE SPECIMENOrdering Facility: [facility] Address: [address] [place] [address] Performed By: #### 2 4356-8 ####[facility] LABCLIA [id number] [place] [address] [place] Hemoglobin Ql (U) Negative Normal Negative [facility] Comment on above: Order Comment: Speci men Type: URINE SPECIMENOrdering Facility: [facility] Address: [address] [place] [address] Performed By: #### 2 4356-8 ####[facility] LABCLIA [id number] [place] [address] [place] Hyaline casts (Urine sed) [#/Area] 0 /[LPF] Normal 0 /LPF [facility] Comment on above: Order Comment: Speci men Type: URINE SPECIMENOrdering Facility: [facility] Address: [address] [place] [address] Performed By: #### 2 4356-8 ####[facility] LABCLIA [id number] [place] [address] [place] Ketones Ql (U) Trace Abnormal Negative [facility] Comment on above: Order Comment: Speci men Type: URINE SPECIMENOrdering Facility: [facility] Address: [address] [place] [address] Performed By: #### 2 4356-8 ####[facility] LABCLIA [id number] [place] [address] [place] Leukocyte esterase Test strip Ql (U) Trace Abnormal Negative [facility] Comment on above: Order Comment: Speci men Type: URINE SPECIMENOrdering Facility: [facility] Address: [address] [place] [address] Performed By: #### 2 4356-8 ####[facility] LABCLIA [id number] [place] [address] [place] Nitrite Ql (U) Negative Normal Negative [facility] Comment on above: Order Comment: Speci men Type: URINE SPECIMENOrdering Facility: [facility] Address: [address] [place] [address] Performed By: #### 2 4356-8 ####[facility] LABCLIA [id number] [place] [address] [place] pH (U) 6.0 [pH] Normal <8.5 [facility] Comment on above: Order Comment: Speci men Type: URINE SPECIMENOrdering Facility: [facility] Address: [address] [place] [address] Performed By: #### 2 4356-8 ####[facility] LABIA [id number] [place] [address] [place] Protein (U) [Mass/Vol] 1+ Abnormal Negative [facility] Comment on above: Order Comment: Speci men Type: URINE SPECIMENOrdering Facility: [facility] Address: [address] [place] [address] Performed By: #### 2 4356-8 ####[facility] LABIA [id number] [place] [address] [place] RBC LM.HPF (Urine sed) [#/Area] 0-2 /HPF Normal 0-2 /HPF [facility] Comment on above: Order Comment: Speci men Type: URINE SPECIMENOrdering Facility: [facility] Address: [address] [place] [address] Performed By: #### 2 4356-8 ####[facility] LABIA [id number] [place] [address] [place] Specific gravity (U) [Rel density] 1.020 Normal 1.005-1.030 [facility] Comment on above: Order Comment: Speci men Type: URINE SPECIMENOrdering Facility: [facility] Address: [address] [place] [address] Performed By: #### 2 4356-8 ####[facility] LABIA [id number] [place] [address] [place] Urobilinogen Ql (U) 1.0 EU/dL Normal 0.2-1.0 EU/dL [facility] Comment on above: Order Comment: Speci men Type: URINE SPECIMENOrdering Facility: [facility] Address: [address] [place] [address] Performed By: #### 2 4356-8 ####[facility] LABCLIA [id number] [place] [address] [place] WBC LM.HPF (Urine sed) [#/Area] 0-5 /HPF Normal 0-5 /HPF [facility] Comment on above: Order Comment: Speci men Type: URINE SPECIMENOrdering Facility: [facility] Address: [address] [place] [address] Performed By: #### 2 4356-8 ####[facility] LABIA [id number] [place] [address] [place] aPTT PPPon 09-23-2023 aPTT Coag (PPP) [Time] 37.3 s High 23.0-32.4 [facility] Comment on above: Order Comment: Speci men Type: BLOOD SPECIMENOrdering Facility: [facility] Address: [address] [place] [address] Performed By: #### 3 4528-0, 3255-7, 17814-7 ####[facility] LABCLIA [id number] [place] [address] [place] Bacteria Bld Culton 09-22-19 24 Bacteria identified Cx Nom (Bld) CULTURE, BLOOD: No growth 5 days Normal [facility] Comment on above: Performed By: #### 6 00-7 ####[facility] LABCLIA [id number] [place] [address] [place] CBC W Auto Differential pane l (Bld)on 09-22-2023 Anisocytosis Ql (Bld) Present Normal [facility] Comment on above: Order Comment: Speci men Type: BLOOD SPECIMENOrdering Facility: [facility] Address: [address] [place] [address] Performed By: #### 5 7021-8 ####[facility] LABCLIA [id number] [place] [address] [place] Basophils (Bld) [#/Vol] 0.00 10*3/uL Normal <0.11 [facility] Comment on above: Order Comment: Speci men Type: BLOOD SPECIMENOrdering Facility: [facility] Address: [address] [place] [address] Performed By: #### 5 7021-8 ####[facility] LABCLIA [id number] [place] [address] [place] Basophils/100 WBC (Bld) 0.0 % Normal [facility] Comment on above: Order Comment: Speci men Type: BLOOD SPECIMENOrdering Facility: [facility] Address: [address] [place] [address] Performed By: #### 5 7021-8 ####[facility] LABIA [id number] [place] [address] [place] BLAST% 69.0 % High <=0.0 [facility] Comment on above: Order Comment: Speci men Type: BLOOD SPECIMENOrdering Facility: [facility] Address: [address] [place] [address] Performed By: #### 5 7021-8 ####[facility] LABCLIA [id number] [place] [address] [place] Dacrocytes LM Ql (Bld) Few Normal [facility] Comment on above: Order Comment: Speci men Type: BLOOD SPECIMENOrdering Facility: [facility] Address: [address] [place] [address] Performed By: #### 5 7021-8 ####[facility] LABIA [id number] [place] [address] [place] Differential cell count method Nom (Bld) Manual Normal [facility] Comment on above: Order Comment: Speci men Type: BLOOD SPECIMENOrdering Facility: [facility] Address: [address] [place] [address] Performed By: #### 5 7021-8 ####[facility] LABCLIA [id number] [place] [address] [place] Eosinophils (Bld) [#/Vol] 0.00 10*3/uL Normal <0.46 [facility] Comment on above: Order Comment: Speci men Type: BLOOD SPECIMENOrdering Facility: [facility] Address: [address] [place] [address] Performed By: #### 5 7021-8 ####[facility] LABCLIA [id number] [place] [address] [place] Eosinophils/100 WBC (Bld) 0.0 % Normal [facility] Comment on above: Order Comment: Speci men Type: BLOOD SPECIMENOrdering Facility: [facility] Address: [address] [place] [address] Performed By: #### 5 7021-8 ####[facility] LABCLIA [id number] [place] [address] [place] Erythrocyte distribution width (RBC) [Ratio] 22.0 % High 11.5-15.0 [facility] Comment on above: Order Comment: Speci men Type: BLOOD SPECIMENOrdering Facility: [facility] Address: [address] [place] [address] Performed By: #### 5 7021-8 ####[facility] LABCLIA [id number] [place] [address] [place] Hematocrit (Bld) [Volume fraction] 22.7 % Low 36.0-46.0 [facility] Comment on above: Order Comment: Speci men Type: BLOOD SPECIMENOrdering Facility: [facility] Address: [address] [place] [address] Performed By: #### 5 7021-8 ####[facility] LABCLIA [id number] [place] [address] [place] Hemoglobin (Bld) [Mass/Vol] 7.6 g/dL Low 11.5-15.5 [facility] Comment on above: Order Comment: Speci men Type: BLOOD SPECIMENOrdering Facility: [facility] Address: [address] [place] [address] Performed By: #### 5 7021-8 ####[facility] LABCLIA [id number] [place] [address] [place] Lymphocytes (Bld) [#/Vol] 1.43 10*3/uL Normal 1.00-4.00 [facility] Comment on above: Order Comment: Speci men Type: BLOOD SPECIMENOrdering Facility: [facility] Address: [address] [place] [address] Performed By: #### 5 7021-8 ####[facility] LABCLIA [id number] [place] [address] [place] Lymphocytes/100 WBC (Bld) 9.0 % Normal [facility] Comment on above: Order Comment: Speci men Type: BLOOD SPECIMENOrdering Facility: [facility] Address: [address] [place] [address] Performed By: #### 5 7021-8 ####[facility] LABCLIA [id number] [place] [address] [place] MCH (RBC) [Entitic mass] 31.4 pg Normal 26.0-34.0 [facility] Comment on above: Order Comment: Speci men Type: BLOOD SPECIMENOrdering Facility: [facility] Address: [address] [place] [address] Performed By: #### 5 7021-8 ####[facility] LABCLIA [id number] [place] [address] [place] MCHC (RBC) [Mass/Vol] 33.5 g/dL Normal 30.5-36.0 [facility] Comment on above: Order Comment: Speci men Type: BLOOD SPECIMENOrdering Facility: [facility] Address: [address] [place] [address] Performed By: #### 5 7021-8 ####[facility] LABCLIA [id number] [place] [address] [place] MCV (RBC) [Entitic vol] 93.8 fL Normal 80.0-100.0 [facility] Comment on above: Order Comment: Speci men Type: BLOOD SPECIMENOrdering Facility: [facility] Address: [address] [place] [address] Performed By: #### 5 7021-8 ####[facility] LABCLIA [id number] [place] [address] [place] Monocytes (Bld) [#/Vol] 0.16 10*3/uL Normal <0.87 [facility] Comment on above: Order Comment: Speci men Type: BLOOD SPECIMENOrdering Facility: [facility] Address: [address] [place] [address] Performed By: #### 5 7021-8 ####[facility] LABCLIA [id number] [place] [address] [place] Monocytes/100 WBC (Bld) 1.0 % Normal [facility] Comment on above: Order Comment: Speci men Type: BLOOD SPECIMENOrdering Facility: [facility] Address: [address] [place] [address] Performed By: #### 5 7021-8 ####[facility] LABCLIA [id number] [place] [address] [place] MYELO% 1.0 % Normal [facility] Comment on above: Order Comment: Speci men Type: BLOOD SPECIMENOrdering Facility: [facility] Address: [address] [place] [address] Performed By: #### 5 7021-8 ####[facility] LABCLIA [id number] [place] [address] [place] Neutrophils (Bld) [#/Vol] 3.18 10*3/uL Normal 1.45-7.50 [facility] Comment on above: Order Comment: Speci men Type: BLOOD SPECIMENOrdering Facility: [facility] Address: [address] [place] [address] Performed By: #### 5 7021-8 ####[facility] LABCLIA [id number] [place] [address] [place] Neutrophils/100 WBC (Bld) 20.0 % Normal [facility] Comment on above: Order Comment: Speci men Type: BLOOD SPECIMENOrdering Facility: [facility] Address: [address] [place] [address] Performed By: #### 5 7021-8 ####[facility] LABCLIA [id number] [place] [address] [place] Nucleated RBC (Bld) [#/Vol] 10*3/uL Normal <0.01 [facility] Comment on above: Order Comment: Speci men Type: BLOOD SPECIMENOrdering Facility: [facility] Address: [address] [place] [address] Performed By: #### 5 7021-8 ####[facility] LABCLIA [id number] [place] [address] [place] Nucleated RBC/100 WBC (Bld) [Ratio] 0.0 /100 WBC Normal [facility] Comment on above: Order Comment: Speci men Type: BLOOD SPECIMENOrdering Facility: [facility] Address: [address] [place] [address] Performed By: #### 5 7021-8 ####[facility] LABCLIA [id number] [place] [address] [place] Ovalocytes LM Ql (Bld) Few Normal [facility] Comment on above: Order Comment: Speci men Type: BLOOD SPECIMENOrdering Facility: [facility] Address: [address] [place] [address] Performed By: #### 5 7021-8 ####[facility] LABCLIA [id number] [place] [address] [place] Platelet mean volume (Bld) [Entitic vol] Normal [facility] Comment on above: Order Comment: Speci men Type: BLOOD SPECIMENOrdering Facility: [facility] Address: [address] [place] [address] Result Comment: Unab le to Report. Performed By: #### 5 7021-8 ####[facility] LABIA [id number] [place] [address] [place] Platelets (Bld) [#/Vol] 10 10*3/uL Low 150-400 [facility] Comment on above: Order Comment: Speci men Type: BLOOD SPECIMENOrdering Facility: [facility] Address: [address] [place] [address] Result Comment: Resu lts checked and verified.No clot detected. Performed By: #### 5 7021-8 ####[facility] LABIA [id number] [place] [address] [place] Platelets Estimate (Bld) [#/Vol] Decreased Normal [facility] Comment on above: Order Comment: Speci men Type: BLOOD SPECIMENOrdering Facility: [facility] Address: [address] [place] [address] Performed By: #### 5 7021-8 ####[facility] LABCLIA [id number] [place] [address] [place] Polychromasia LM Ql (Bld) Slight Normal [facility] Comment on above: Order Comment: Speci men Type: BLOOD SPECIMENOrdering Facility: [facility] Address: [address] [place] [address] Performed By: #### 5 7021-8 ####[facility] LABIA [id number] [address] [address] [place] RBC (Bld) [#/Vol] 2.42 10*6/uL Low 3.90-5.20 [facility] Comment on above: Order Comment: Speci men Type: BLOOD SPECIMENOrdering Facility: [facility] Address: [address] [place] [address] Performed By: #### 5 7021-8 ####[facility] LABCLIA [id number] [place] [address] [place] RED CELL MORPH Reviewed: see result s of individual morphologies Normal [facility] Comment on above: Order Comment: Speci men Type: BLOOD SPECIMENOrdering Facility: [facility] Address: [address] [place] [address] Performed By: #### 5 7021-8 ####[facility] LABCLIA [id number] [place] [address] [place] WBC (Bld) [#/Vol] 15.91 10*3/uL High 3.70-11.00 [facility] Comment on above: Order Comment: Speci men Type: BLOOD SPECIMENOrdering Facility: [facility] Address: [address] [place] [address] Result Comment: Resu lts checked and verified.No clot detected. Performed By: #### 5 7021-8 ####[facility] LABCLIA [id number] [place] [address] [place] WBC Left Shift Ql (Bld) Present Normal [facility] Comment on above: Order Comment: Speci men Type: BLOOD SPECIMENOrdering Facility: [facility] Address: [address] [place] [address] Performed By: #### 5 7021-8 ####[facility] LABCLIA [id number] [place] [address] [place] Comprehensive metabolic 2000 panelon 09-22-2023 Albumin [Mass/Vol] 2.9 g/dL Low 3.9-4.9 [facility] Comment on above: Order Comment: Speci men Type: BLOOD SPECIMENOrdering Facility: [facility] Address: [address] [place] [address] Performed By: #### 2 4323-8, 73925-0, 2776-, 308-1 ####[facility] LABCLIA [id number] [address] [address] [place] ALP [Catalytic activity/Vol] 60 U/L Normal 34-123 [facility] Comment on above: Order Comment: Speci men Type: BLOOD SPECIMENOrdering Facility: [facility] Address: [address] [place], [place] [address] Performed By: #### 2 4323-8, 15495-8, 2776-, 308-1 ####[facility] LABCLIA [id number] [place] [address] [place] ALT [Catalytic activity/Vol] 16 U/L Normal 7-38 [facility] Comment on above: Order Comment: Speci men Type: BLOOD SPECIMENOrdering Facility: [facility] Address: [address] [place] [address] Performed By: #### 2 4323-8, 33906-3, 2776-, 308- ####[facility] LABIA [id number] [place] [id number] [place] Anion gap [Moles/Vol] 9 mmol/L Normal 9-18 [facility] Comment on above: Order Comment: Speci men Type: BLOOD SPECIMENOrdering Facility: [facility] Address: [address] [place] [address] Performed By: #### 2 4323-8, 92726-2, 2776-07, 308- ####[facility] LABCLIA [id number] [place] [id number] [place] AST [Catalytic activity/Vol] 26 U/L Normal 13-35 [facility] Comment on above: Order Comment: Speci men Type: BLOOD SPECIMENOrdering Facility: [facility] Address: [address] [place], [place] [address] Performed By: #### 2 4323-8, 47672-4, 2776-, 3083-1 ####[facility] LABCLIA [id number] [address] [address] [place] Bilirubin [Mass/Vol] 0.4 mg/dL Normal 0.2-1.3 [facility] Comment on above: Order Comment: Speci men Type: BLOOD SPECIMENOrdering Facility: [facility] Address: [address] [place] [address] Performed By: #### 2 4323-8, 09613-9, 2776-, 3083-1 ####[facility] LABCLIA [id number] [place] [address] [place] Calcium [Mass/Vol] 8.6 mg/dL Normal 8.5-10.2 [facility] Comment on above: Order Comment: Speci men Type: BLOOD SPECIMENOrdering Facility: [facility] Address: [address] [place] [address] Performed By: #### 2 4323-8, 22041-5, 2776-07, 3083- ####[facility] LABCLIA [id number] [place] [id number] [place] Chloride [Moles/Vol] 104 mmol/L Normal 97-105 [facility] Comment on above: Order Comment: Speci men Type: BLOOD SPECIMENOrdering Facility: [facility] Address: [address] [place], [place] [address] Performed By: #### 2 4323-8, 95469-4, 2776-07, 3083- ####[facility] LABCLIA [id number] [place] [id number] [place] CO2 [Moles/Vol] 24 mmol/L Normal 22-30 [facility] Comment on above: Order Comment: Speci men Type: BLOOD SPECIMENOrdering Facility: [facility] Address: [address] [place] [address] Performed By: #### 2 4323-8, 05772-0, 2776-, 3083- ####[facility] LABIA [id number] [address] [address] [place] Creatinine [Mass/Vol] 0.57 mg/dL Low 0.58-0.96 [facility] Comment on above: Order Comment: Speci men Type: BLOOD SPECIMENOrdering Facility: [facility] Address: [address] [place] [address] Performed By: #### 2 4323-8, 71490-9, 2776-07, 3083-07 ####[facility] LABIA [id number] [place] [address] [place] Creatinine and Glomerular filtration rate.predicted panel (S/P/Bld) 91 mL/min/1.73m??? Normal >=60 [facility] Comment on above: Order Comment: Speci men Type: BLOOD SPECIMENOrdering Facility: [facility] Address: [address] [place] [address] Result Comment: Akiko mated Glomerular Filtration Rate (eGFR) is calculated using the 2020 CKD-EPI creatinine equation. This equation utilizes serum creatinine, sex, and age as parameters. The creatinine assay has traceable calibration to isotope dilution-mass spectrometry. Refer to KDIGO guidelines for clinical interpretation. In patients with unstable renal function, e.g. those with acute kidney injury, the eGFR may not accurately reflect actual GFR. Performed By: #### 2 4323-8, 64530-4, 2776-07, 3083- ####[facility] LABIA [id number] [place] [id number] [place] Glucose [Mass/Vol] 87 mg/dL Normal 74-99 [facility] Comment on above: Order Comment: Speci men Type: BLOOD SPECIMENOrdering Facility: [facility] Address: [address] [place] [address] Result Comment: The [place] [employer] (ADA) provides guidance for cutoff values for fasting glucose and random glucose. The ADA defines fasting as no caloric intake for at least 8 hours. Fasting plasma glucose results between 100 to 125 mg/dL indicate increased risk for diabetes (prediabetes).Fasting plasma glucose results greater than or equal to 126 mg/dL meet the criteria for diagnosis of diabetes. In the absence of unequivocal hyperglycemia, results should be confirmed by repeat testing. In a patient with classic symptoms of hyperglycemia or hyperglycemic crisis, random plasma glucose results greater than or equal to 200 mg/dL meet the criteria for diagnosis of diabetes.Reference: Standards of Medical Care in Diabetes 2016, [place] [employer]. Diabetes Care. 2016.39(Suppl 1). Performed By: #### 2 4323-8, 20305-2, 2776-, 3083-07 ####[facility] LABIA [id number] [place] [id number] [place] Potassium [Moles/Vol] 3.5 mmol/L Low 3.7-5.1 [facility] Comment on above: Order Comment: Speci men Type: BLOOD SPECIMENOrdering Facility: [facility] Address: [address] [place] [address] Performed By: #### 2 4323-8, 34772-1, 2776-07, 3083-07 ####[facility] [id number] [place] [id number] [place] Protein [Mass/Vol] 5.1 g/dL Low 6.3-8.0 [facility] Comment on above: Order Comment: Speci men Type: BLOOD SPECIMENOrdering Facility: [facility] Address: [address] [place] [address] Performed By: #### 2 4323-8, 14804-1, 2776-07, 3083-07 ####[facility]IA [id number] [address] [address] [place] Sodium [Moles/Vol] 137 mmol/L Normal 136-144 [facility] Comment on above: Order Comment: Speci men Type: BLOOD SPECIMENOrdering Facility: [facility] Address: [address] [place] [address] Performed By: #### 2 4323-8, 58647-5, 2776-07, 3083- ####[facility] LABCLIA [id number] [place] [address] [place] Urea nitrogen [Mass/Vol] 8 mg/dL Normal 7-21 [facility] Comment on above: Order Comment: Speci men Type: BLOOD SPECIMENOrdering Facility: [facility] Address: [address] [place] [address] Performed By: #### 2 4323-8, , 2776-07, 3083- ####[facility] LABCLIA [id number] [place] [address] [place] Fibrinogen PPP-mCncon 2023 Fibrinogen Coag (PPP) [Mass/Vol] 532 mg/dL High 200-400 [facility] Comment on above: Order Comment: Speci men Type: BLOOD SPECIMENOrdering Facility: [facility] Address: [address] [place] [address] Result Comment: Samp le checked for clot.Result rechecked. Performed By: #### 3 4528-0, 78335-7, 3255-7 ####[facility] LABCLIA [id number] [place] [address] [place] MEDICAL EMERon 09-22-2023 MEDICAL EDMUND Normal [facility] Magnesium SerPl-mCncon 09-21 Magnesium [Mass/Vol] 1.9 mg/dL Normal 1.7-2.3 [facility] Comment on above: Order Comment: Speci men Type: BLOOD SPECIMENOrdering Facility: [facility] Address: [address] [place] [address] Performed By: #### 2 4323-8, 74689-6, 2776-, 308-1 ####[facility] LABCLIA [id number] [place] [id number] [place] PT panel Coag (PPP)on 2023 INR Coag (PPP) [Relative time] 1.4 {INR} High 0.9-1.3 [facility] Comment on above: Order Comment: Speci men Type: BLOOD SPECIMENOrdering Facility: [facility] Address: [address] [place] [address] Result Comment: Clementine min K Antagonist (VKA) Therapeutic Range: INR 2 to 3 (Target INR of 2.5)Note: For patients treated with VKA drugs, such as warfarin, the [place] 2012 Guideline recommends a therapeutic INR range of 2 to 3 (target INR of 2.5). This recommendation includes high-risk patients with antiphospholipid syndrome with previous arterial or venous thromboembolism, current-generation mechanical or bioprosthetic aortic heart valve replacement.Note: Patients with mechanical aortic valve replacement and additional risk factors for thromboembolic events (atrial fibrillation, previous thromboembolism, LV dysfunction, hypercoagulable conditions) or an older generation mechanical AVR (i.e., ball in-Cage) or any mechanical MVR should have a INR therapeutic range of 2.5 to 3.5 (target INR of 3).Collins GH, et al. Chest 2012, 141:7S-47SNishimura RA, et al. [facility] 2017, 70: 252-289 Performed By: #### 3 4528-0, 39958-3, 3255-7 ####[facility] LABCLIA [id number] [place] [id number] [place] PT Coag (PPP) [Time] 14.9 s High 9.7-13.0 [facility] Comment on above: Order Comment: Speci men Type: BLOOD SPECIMENOrdering Facility: [facility] Address: [address] [place] [address] Performed By: #### 3 4528-0, 03963-8, 3255-7 ####[facility] LABIA [id number] [place] [id number] [place] Phosphate SerPl-mCncon 09-21 Phosphate [Mass/Vol] 3.5 mg/dL Normal 2.7-4.8 [facility] Comment on above: Order Comment: Speci men Type: BLOOD SPECIMENOrdering Facility: [facility] Address: [address] [place] [address] Performed By: #### 2 4323-8, 03481-5, 2776-1, 3084-1 ####[facility] LABCLIA [id number] [place] [address] [place] SEPSIS LACTATEon 09-22-2023 Lactate [Moles/Vol] 1.1 mmol/L Normal <=2.0 [facility] Comment on above: Order Comment: Speci men Type: BLOOD SPECIMENOrdering Facility: [facility] Address: [address] [place] [address] Performed By: #### S LACT ####[facility] LABCLIA [id number] [place] [address] [place] Urate SerPl-ncon Urate [Mass/Vol] 2.7 mg/dL Normal 2.5-6.6 [facility] Comment on above: Order Comment: Speci men Type: BLOOD SPECIMENOrdering Facility: [facility] Address: [address] [place] [address] Performed By: #### 2 4323-8, 56436-1, 2776-1, 308-1 ####[facility] LABCLIA [id number] [place] [address] [place] XR CHEST 1V FRONTAL PORTon 0 09-22-2023 XR CHEST 1V FRONTAL PORT Normal [facility] aPTT PPPon 09-22-2023 aPTT Coag (PPP) [Time] 37.3 s High 23.0-32.4 [facility] Comment on above: Order Comment: Speci men Type: BLOOD SPECIMENOrdering Facility: [facility] Address: [address] [place] [address] Performed By: #### 3 4528-0, 17155-1, 3255-7 ####[facility] LABCLIA [id number] [place] [address] [place] ALLIED HEALTHon 09-21-2023 ALLIED HEALTH Normal [facility] CBC W Auto Differential pane l (Bld)on 09-21-2023 Anisocytosis Ql (Bld) Present Normal [facility] Comment on above: Order Comment: Speci men Type: BLOOD SPECIMENOrdering Facility: [facility] Address: [address] [place] [address] Performed By: #### 5 7021-8 ####[facility] LABCLIA [id number] [place] [address] [place] Basophils (Bld) [#/Vol] 0.00 10*3/uL Normal <0.11 [facility] Comment on above: Order Comment: Speci men Type: BLOOD SPECIMENOrdering Facility: [facility] Address: [address] [place] [address] Performed By: #### 5 7021-8 ####[facility] LABCLIA [id number] [place] [address] [place] Basophils/100 WBC (Bld) 0.0 % Normal [facility] Comment on above: Order Comment: Speci men Type: BLOOD SPECIMENOrdering Facility: [facility] Address: [address] [place] [address] Performed By: #### 5 7021-8 ####[facility] LABCLIA [id number] [place] [address] [place] BLAST% 60.0 % High <=0.0 [facility] Comment on above: Order Comment: Speci men Type: BLOOD SPECIMENOrdering Facility: [facility] Address: [address] [place] [address] Performed By: #### 5 7021-8 ####[facility] LABCLIA [id number] [place] [address] [place] Differential cell count method Nom (Bld) Manual Normal [facility] Comment on above: Order Comment: Speci men Type: BLOOD SPECIMENOrdering Facility: [facility] Address: [address] [place] [address] Performed By: #### 5 7021-8 ####[facility] LABCLIA [id number] [place] [address] [place] Eosinophils (Bld) [#/Vol] 0.00 10*3/uL Normal <0.46 [facility] Comment on above: Order Comment: Speci men Type: BLOOD SPECIMENOrdering Facility: [facility] Address: [address] [place] [address] Performed By: #### 5 7021-8 ####[facility] LABCLIA [id number] [place] [address] [place] Eosinophils/100 WBC (Bld) 0.0 % Normal [facility] Comment on above: Order Comment: Speci men Type: BLOOD SPECIMENOrdering Facility: [facility] Address: [address] [place] [address] Performed By: #### 5 7021-8 ####[facility] LABCLIA [id number] [place] [address] [place] Erythrocyte distribution width (RBC) [Ratio] 22.7 % High 11.5-15.0 [facility] Comment on above: Order Comment: Speci men Type: BLOOD SPECIMENOrdering Facility: [facility] Address: [address] [place] [address] Performed By: #### 5 7021-8 ####[facility] LABCLIA [id number] [place] [address] [place] Hematocrit (Bld) [Volume fraction] 22.8 % Low 36.0-46.0 [facility] Comment on above: Order Comment: Speci men Type: BLOOD SPECIMENOrdering Facility: [facility] Address: [address] [place] [address] Performed By: #### 5 7021-8 ####[facility] LABIA [id number] [place] [address] [place] Hemoglobin (Bld) [Mass/Vol] 7.8 g/dL Low 11.5-15.5 [facility] Comment on above: Order Comment: Speci men Type: BLOOD SPECIMENOrdering Facility: [facility] Address: [address] [place] [address] Performed By: #### 5 7021-8 ####[facility] LABIA [id number] [place] [address] [place] Lymphocytes (Bld) [#/Vol] 2.74 10*3/uL Normal 1.00-4.00 [facility] Comment on above: Order Comment: Speci men Type: BLOOD SPECIMENOrdering Facility: [facility] Address: [address] [place] [address] Performed By: #### 5 7021-8 ####[facility] LABIA [id number] [place] [address] [place] Lymphocytes/100 WBC (Bld) 14.0 % Normal [facility] Comment on above: Order Comment: Speci men Type: BLOOD SPECIMENOrdering Facility: [facility] Address: [address] [place] [address] Performed By: #### 5 7021-8 ####[facility] LABIA [id number] [place] [address] [place] MCH (RBC) [Entitic mass] 31.7 pg Normal 26.0-34.0 [facility] Comment on above: Order Comment: Speci men Type: BLOOD SPECIMENOrdering Facility: [facility] Address: [address] [place] [address] Performed By: #### 5 7021-8 ####[facility] LABCLIA [id number] [place] [address] [place] MCHC (RBC) [Mass/Vol] 34.2 g/dL Normal 30.5-36.0 [facility] Comment on above: Order Comment: Speci men Type: BLOOD SPECIMENOrdering Facility: [facility] Address: [address] [place] [address] Performed By: #### 5 7021-8 ####[facility] LABCLIA [id number] [place] [address] [place] MCV (RBC) [Entitic vol] 92.7 fL Normal 80.0-100.0 [facility] Comment on above: Order Comment: Speci men Type: BLOOD SPECIMENOrdering Facility: [facility] Address: [address] [place] [address] Performed By: #### 5 7021-8 ####[facility] LABCLIA [id number] [place] [address] [place] Monocytes (Bld) [#/Vol] 0.78 10*3/uL Normal <0.87 [facility] Comment on above: Order Comment: Speci men Type: BLOOD SPECIMENOrdering Facility: [facility] Address: [address] [place] [address] Performed By: #### 5 7021-8 ####[facility] LABCLIA [id number] [place] [address] [place] Monocytes/100 WBC (Bld) 4.0 % Normal [facility] Comment on above: Order Comment: Speci men Type: BLOOD SPECIMENOrdering Facility: [facility] Address: [address] [place] [address] Performed By: #### 5 7021-8 ####[facility] LABCLIA [id number] [place] [address] [place] Neutrophils (Bld) [#/Vol] 4.31 10*3/uL Normal 1.45-7.50 [facility] Comment on above: Order Comment: Speci men Type: BLOOD SPECIMENOrdering Facility: [facility] Address: [address] [place] [address] Performed By: #### 5 7021-8 ####[facility] LABCLIA [id number] [place] [address] [place] Neutrophils/100 WBC (Bld) 22.0 % Normal [facility] Comment on above: Order Comment: Speci men Type: BLOOD SPECIMENOrdering Facility: [facility] Address: [address] [place] [address] Performed By: #### 5 7021-8 ####[facility] LABCLIA [id number] [place] [address] [place] Nucleated RBC (Bld) [#/Vol] 0.20 10*3/uL High <0.01 [facility] Comment on above: Order Comment: Speci men Type: BLOOD SPECIMENOrdering Facility: [facility] Address: [address] [place] [address] Performed By: #### 5 7021-8 ####[facility] LABCLIA [id number] [place] [address] [place] Nucleated RBC/100 WBC (Bld) [Ratio] 1.0 /100 WBC Normal [facility] Comment on above: Order Comment: Speci men Type: BLOOD SPECIMENOrdering Facility: [facility] Address: [address] [place] [address] Performed By: #### 5 7021-8 ####[facility] LABCLIA [id number] [place] [address] [place] Ovalocytes LM Ql (Bld) Few Normal [facility] Comment on above: Order Comment: Speci men Type: BLOOD SPECIMENOrdering Facility: [facility] Address: [address] [place] [address] Performed By: #### 5 7021-8 ####[facility] LABCLIA [id number] [place] [address] [place] Platelet mean volume (Bld) [Entitic vol] 10.2 fL Normal 9.0-12.7 [facility] Comment on above: Order Comment: Speci men Type: BLOOD SPECIMENOrdering Facility: [facility] Address: [address] [place] [address] Performed By: #### 5 7021-8 ####[facility] LABCLIA [id number] [place] [address] [place] Platelets (Bld) [#/Vol] 10 10*3/uL Low 150-400 [facility] Comment on above: Order Comment: Speci men Type: BLOOD SPECIMENOrdering Facility: [facility] Address: [address] [place] [address] Result Comment: Resu lts checked and verified.No clot detected. Performed By: #### 5 7021-8 ####[facility] LABIA [id number] [place] [address] [place] Platelets Estimate (Bld) [#/Vol] Decreased Normal [facility] Comment on above: Order Comment: Speci men Type: BLOOD SPECIMENOrdering Facility: [facility] Address: [address] [place] [address] Performed By: #### 5 7021-8 ####[facility] LABIA [id number] [place] [address] [place] Polychromasia LM Ql (Bld) Slight Normal [facility] Comment on above: Order Comment: Speci men Type: BLOOD SPECIMENOrdering Facility: [facility] Address: [address] [place] [address] Performed By: #### 5 7021-8 ####[facility] LABCLIA [id number] [place] [address] [place] RBC (Bld) [#/Vol] 2.46 10*6/uL Low 3.90-5.20 [facility] Comment on above: Order Comment: Speci men Type: BLOOD SPECIMENOrdering Facility: [facility] Address: [address] [place] [address] Performed By: #### 5 7021-8 ####[facility] LABCLIA [id number] [place] [address] [place] RED CELL MORPH Reviewed: see result s of individual morphologies Normal [facility] Comment on above: Order Comment: Speci men Type: BLOOD SPECIMENOrdering Facility: [facility] Address: [address] [place] [address] Performed By: #### 5 7021-8 ####[facility] LABIA [id number] [place] [address] [place] WBC (Bld) [#/Vol] 19.58 10*3/uL High 3.70-11.00 [facility] Comment on above: Order Comment: Speci men Type: BLOOD SPECIMENOrdering Facility: [facility] Address: [address] [place] [address] Result Comment: Resu lts checked and verified.No clot detected. Performed By: #### 5 7021-8 ####[facility] LABCLIA [id number] [place] [address] [place] Comprehensive metabolic 2000 panelon 09-21-2023 Albumin [Mass/Vol] 2.9 g/dL Low 3.9-4.9 [facility] Comment on above: Order Comment: Speci men Type: BLOOD SPECIMENOrdering Facility: [facility] Address: [address] [place] [address] Performed By: #### 2 777-1, 3084-1, 58952-5, 45141-7, 26802-1 ####[facility] LABCLIA [id number] [place] [address] [place] ALP [Catalytic activity/Vol] 59 U/L Normal 34-123 [facility] Comment on above: Order Comment: Speci men Type: BLOOD SPECIMENOrdering Facility: [facility] Address: [address] [place], [place] [address] Performed By: #### 2 777-1, 3084-1, 20192-8, 18882-3, 94845-3 ####[facility] LABCLIA [id number] [place] [id number] [place] ALT [Catalytic activity/Vol] 14 U/L Normal 7-38 [facility] Comment on above: Order Comment: Speci men Type: BLOOD SPECIMENOrdering Facility: [facility] Address: [address] [place] [address] Performed By: #### 2 777-1, 3084-1, 94824-7, 01482-9, 81878-0 ####[facility] LABIA [id number] [place] [address] [place] Anion gap [Moles/Vol] 8 mmol/L Low 9-18 [facility] Comment on above: Order Comment: Speci men Type: BLOOD SPECIMENOrdering Facility: [facility] Address: [address] [place] [address] Performed By: #### 2 777-1, 3084-1, 73166-6, 81208-4, 32815-2 ####[facility] LABIA [id number] [place] [address] [place] AST [Catalytic activity/Vol] 24 U/L Normal 13-35 [facility] Comment on above: Order Comment: Speci men Type: BLOOD SPECIMENOrdering Facility: [facility] Address: [address] [place] [address] Performed By: #### 2 777-1, 3084-1, 16805-4, 17222-3, 27425-3 ####[facility] LABCLIA [id number] [address] [address] [place] Bilirubin [Mass/Vol] 0.4 mg/dL Normal 0.2-1.3 [facility] Comment on above: Order Comment: Speci men Type: BLOOD SPECIMENOrdering Facility: [facility] Address: [address] [place] [address] Performed By: #### 2 777-1, 3084-1, 83885-1, 15677-3, 32279-9 ####[facility] LABCLIA [id number] [place] [address] [place] Calcium [Mass/Vol] 8.3 mg/dL Low 8.5-10.2 [facility] Comment on above: Order Comment: Speci men Type: BLOOD SPECIMENOrdering Facility: [facility] Address: [address] [place] [address] Performed By: #### 2 777-1, 3084-1, 74212-6, 25038-6, 31359-0 ####[facility] LABCLIA [id number] [place] [address] [place] Chloride [Moles/Vol] 108 mmol/L High 97-105 [facility] Comment on above: Order Comment: Speci men Type: BLOOD SPECIMENOrdering Facility: [facility] Address: [address] [place] [address] Performed By: #### 2 777-1, 3084-1, 37951-1, 10603-3, 82013-7 ####[facility] LABCLIA [id number] [place] [address] [place] CO2 [Moles/Vol] 22 mmol/L Normal 22-30 [facility] Comment on above: Order Comment: Speci men Type: BLOOD SPECIMENOrdering Facility: [facility] Address: [address] [place] [address] Performed By: #### 2 777-1, 3084-1, 67705-1, 98307-0, 76503-3 ####[facility] LABCLIA [id number] [place] [address] [place] Creatinine [Mass/Vol] 0.58 mg/dL Normal 0.58-0.96 [facility] Comment on above: Order Comment: Qi reynolds Type: BLOOD SPECIMENOrdering Facility: [facility] Address: [address] [place] [address] Performed By: #### 2 777-1, 3084-1, 29490-2, 48702-9, 06058-5 ####[facility] [id number] [place] [address] [facility] Creatinine and Glomerular filtration rate.predicted panel (S/P/Bld) 91 mL/min/1.73m??? Normal >=60 [facility] Comment on above: Order Comment: Qi reynolds Type: BLOOD SPECIMENOrdering Facility: [facility] Address: [address] [place] [address] Result Comment: Akiko mated Glomerular Filtration Rate (eGFR) is calculated using the 2020 CKD-EPI creatinine equation. This equation utilizes serum creatinine, sex, and age as parameters. The creatinine assay has traceable calibration to isotope dilution-mass spectrometry. Refer to KDIGO guidelines for clinical interpretation. In patients with unstable renal function, e.g. those with acute kidney injury, the eGFR may not accurately reflect actual GFR. Performed By: #### 2 777-1, 3084-1, 83856-1, 71718-5, 08041-3 ####[facility] [id number] [place] [id number] [place] Glucose [Mass/Vol] 95 mg/dL Normal 74-99 [facility] Comment on above: Order Comment: Qi reynolds Type: BLOOD SPECIMENOrdering Facility: [facility] Address: [address] [place] [address] Result Comment: The [place] [employer] (ADA) provides guidance for cutoff values for fasting glucose and random glucose. The ADA defines fasting as no caloric intake for at least 8 hours. Fasting plasma glucose results between 100 to 125 mg/dL indicate increased risk for diabetes (prediabetes).Fasting plasma glucose results greater than or equal to 126 mg/dL meet the criteria for diagnosis of diabetes. In the absence of unequivocal hyperglycemia, results should be confirmed by repeat testing. In a patient with classic symptoms of hyperglycemia or hyperglycemic crisis, random plasma glucose results greater than or equal to 200 mg/dL meet the criteria for diagnosis of diabetes.Reference: Standards of Medical Care in Diabetes 2016, [place] [employer]. Diabetes Care. 2016.39(Suppl 1). Performed By: #### 2 777-1, 3084-1, 81157-5, 87980-8, 55426-1 ####[facility] LABCLIA [id number] [place] [id number] [place] Potassium [Moles/Vol] 3.5 mmol/L Low 3.7-5.1 [facility] Comment on above: Order Comment: Qi reynolds Type: BLOOD SPECIMENOrdering Facility: [facility] Address: [address] [place] [address] Performed By: #### 2 777-1, 3084-1, 47348-8, 48221-3, 70893-9 ####[facility] LABIA [id number] [place] [address] [place] Protein [Mass/Vol] 5.0 g/dL Low 6.3-8.0 [facility] Comment on above: Order Comment: Qi reynolds Type: BLOOD SPECIMENOrdering Facility: [facility] Address: [address] [place] [address] Performed By: #### 2 777-1, 3084-1, 23711-9, 90342-2, 00165-8 ####[facility] LABIA [id number] [place] [id number] [place] Sodium [Moles/Vol] 138 mmol/L Normal 136-144 [facility] Comment on above: Order Comment: Qi reynolds Type: BLOOD SPECIMENOrdering Facility: [facility] Address: [address] [place] [address] Performed By: #### 2 777-1, 3084-1, 70303-2, 66208-8, 97749-3 ####[facility] LABCLIA [id number] [place] [address] [place] Urea nitrogen [Mass/Vol] 6 mg/dL Low 7-21 [facility] Comment on above: Order Comment: Speci men Type: BLOOD SPECIMENOrdering Facility: [facility] Address: [address] [place] [address] Performed By: #### 2 777-1, 3084-1, 48203-9, 66417-9, 78950-4 ####[facility] LABIA [id number] [place] [address] [place] Fibrinogen PPP-mCncon 2023 Fibrinogen Coag (PPP) [Mass/Vol] 498 mg/dL High 200-400 [facility] Comment on above: Order Comment: Speci men Type: BLOOD SPECIMENOrdering Facility: [facility] Address: [address] [place] [address] Result Comment: No c lot detected.Checked and Verified\X09\ Performed By: #### 3 4528-0, 3255-7, 31493-5 ####[facility] LABIA [id number] [place] [address] [place] Magnesium SerPl-mCncon 09-20 Magnesium [Mass/Vol] 1.9 mg/dL Normal 1.7-2.3 [facility] Comment on above: Order Comment: Speci men Type: BLOOD SPECIMENOrdering Facility: [facility] Address: [address] [place] [address] Performed By: #### 2 777-1, 3084-1, 10192-8, 33098-4, 85140-4 ####[facility] LABIA [id number] [place] [address] [place] NT-proBNP SerPl-mCncon 09-20 Natriuretic peptide.B prohormone N-Terminal [Mass/Vol] 3228 pg/mL High <450 [facility] Comment on above: Order Comment: Qi reynolds Type: BLOOD SPECIMENOrdering Facility: [facility] Address: [address] [place] [address] Performed By: #### 2 777-1, 3084-1, 48402-5, 79674-6, 73207-6 ####[facility] LABCLIA [id number] [facility] [place] [address] [place] NUTRITIONon 09-21-2023 NUTRITION Normal [facility] Outside [facility] Correspo ndenceon 09-21-2023 Outside [facility] Correspondence [id number] F Normal [facility] PT panel Coag (PPP)on 2023 INR Coag (PPP) [Relative time] 1.3 {INR} Normal 0.9-1.3 [facility] Comment on above: Order Comment: Qi reynolds Type: BLOOD SPECIMENOrdering Facility: [facility] Address: [facility] [place] [address] Result Comment: Clementine min K Antagonist (VKA) Therapeutic Range: INR 2 to 3 (Target INR of 2.5)Note: For patients treated with VKA drugs, such as warfarin, the [employer] 2012 Guideline recommends a therapeutic INR range of 2 to 3 (target INR of 2.5). This recommendation includes high-risk patients with antiphospholipid syndrome with previous arterial or venous thromboembolism, current-generation mechanical or bioprosthetic aortic heart valve replacement.Note: Patients with mechanical aortic valve replacement and additional risk factors for thromboembolic events (atrial fibrillation, previous thromboembolism, LV dysfunction, hypercoagulable conditions) or an older generation mechanical AVR (i.e., ball in-Cage) or any mechanical MVR should have a INR therapeutic range of 2.5 to 3.5 (target INR of 3).Collins GH, et al. Chest 2012, 141:7S-47SKenny RA, et al. [facility] 2017, 70: 252-289 Performed By: #### 3 4528-0, 3255-7, 96371-5 ####[facility] LABCLIA [id number] [place] [id number] [place] PT Coag (PPP) [Time] 14.0 s High 9.7-13.0 [facility] Comment on above: Order Comment: Speci men Type: BLOOD SPECIMENOrdering Facility: [facility] Address: [address] [place] [address] Performed By: #### 3 4528-0, 3255-7, 28643-1 ####[facility] LABCLIA [id number] [place] [id number] [place] Phosphate SerPl-mCncon 09-20 Phosphate [Mass/Vol] 3.2 mg/dL Normal 2.7-4.8 [facility] Comment on above: Order Comment: Speci men Type: BLOOD SPECIMENOrdering Facility: [facility] Address: [address] [place] [address] Performed By: #### 2 777-1, 3084-1, 65225-7, 31943-0, 84812-5 ####[facility] LABIA [id number] [place] [id number] [place] Urate SerPl-mCncon Urate [Mass/Vol] 2.6 mg/dL Normal 2.5-6.6 [facility] Comment on above: Order Comment: Speci men Type: BLOOD SPECIMENOrdering Facility: [facility] Address: [address] [place] [address] Performed By: #### 2 777-1, 3084-1, 37604-1, 71594-5, 89558-2 ####[facility] LABIA [id number] [place] [id number] [place] aPTT PPPon 09-21-2023 aPTT Coag (PPP) [Time] 37.5 s High 23.0-32.4 [facility] Comment on above: Order Comment: Speci men Type: BLOOD SPECIMENOrdering Facility: [facility] Address: [address] [place] [address] Performed By: #### 3 4528-0, 3255-7, 40517-4 ####[facility] LABCLIA [id number] [address] ACUTE LEUKEMIA NGS PANEL, BL OODon 09-20-2023 ACUTE LEUK NGS PANEL, BLOOD Normal [facility] Comment on above: Order Comment: Speci men Type: BLOOD SPECIMENOrdering Facility: [facility] Address: [address] [place] [address] Result Comment: Acut e Leukemia NGS Panel, BloodLaboratory Accession Number: [id number]:Please see linked document and/or separate report for full result whenavailable.As reviewed by Byron Ingram MD Performed By: #### F 3IP, HDPNGS ####[facility] LIMSCLIA [id number] [address] BLOOD BANK PLACEHOLDER, ANTI BODY INTERPRETATIONon 09-20-2023 BLOOD BANK REPORT, ANTIBODY INTERPRETATION See Pathology Report Normal [facility] Comment on above: Order Comment: Speci men Type: BLOOD SPECIMENOrdering Facility: [facility] Address: [address] [place] [address] Performed By: #### B BRABI ####[facility] LABCLIA [id number] [address] [place]#### BBABINT, TSCR ####[facility] BLOOD BANKCLIA [id number] [address] BLOOD BANK REPORT, ANTIBODY INTERPRETATIONon 09-20-2023 PATHOLOGY INTERPRETATION Normal [facility] Comment on above: Order Comment: Speci men Type: BLOOD SPECIMENOrdering Facility: [facility] Address: [address] [place] [address] Result Comment: No c linically significant common RBC alloantibodies are identified. There is weak reactivity of no apparent specificity which is not expected to cause hemolytic transfusion reactions.For transfusion: we will provide antiglobulin crossmatch compatible RBC units. The antiglobulin crossmatch provides a good measure of safety in the presence of reactivity of no apparent specificity. When possible, please allow 4-6 hours for compatibility testing. Performed By: #### B BRABI ####[facility] LABCLIA [id number] [address] [place]#### BBABINT, TSCR ####[facility] BLOOD BANKCLIA [id number] [place] [address] [place] BMT REC INIT W/Uon ALLOGEN RESULTS TO FOLLOW See Allogen report to follow Normal [facility] Comment on above: Order Comment: Speci men Type: BLOOD SPECIMENOrdering Facility: [facility] Address: [address] [place] [address] Performed By: #### B MTRIW ####[facility] LABORATORIESCLIA [id number] [place] [address] [place] CASE MGT INIT ASSESon 2023 CASE MGT INIT ASSES Normal [facility] CBC W Auto Differential pane l (Bld)on 09-20-2023 Anisocytosis Ql (Bld) Present Normal [facility] Comment on above: Order Comment: Speci men Type: BLOOD SPECIMENOrdering Facility: [facility] Address: [address] [place] [address] Performed By: #### L [id number], 22554-9, 67806-3 ####[facility] LABCLIA [id number] [place] [address] [place] Basophils (Bld) [#/Vol] 0.23 10*3/uL High <0.11 [facility] Comment on above: Order Comment: Speci men Type: BLOOD SPECIMENOrdering Facility: [facility] Address: [address] [place] [address] Performed By: #### L [id number], 70453-2, 14483-9 ####[facility] LABCLIA [id number] [place] [address] [place] Basophils/100 WBC (Bld) 1.0 % Normal [facility] Comment on above: Order Comment: Speci men Type: BLOOD SPECIMENOrdering Facility: [facility] Address: [address] [place] [address] Performed By: #### L [id number], 60211-8, 16550-4 ####[facility] LABCLIA [id number] [place] [address] [place] BLAST% 74.0 % High <=0.0 [facility] Comment on above: Order Comment: Speci men Type: BLOOD SPECIMENOrdering Facility: [facility] Address: [address] [place] [address] Performed By: #### L [id number], 44273-7, 24163-5 ####[facility] LABCLIA [id number] [place] [address] [place] Differential cell count method Nom (Bld) Manual Normal [facility] Comment on above: Order Comment: Speci men Type: BLOOD SPECIMENOrdering Facility: [facility] Address: [address] [place] [address] Performed By: #### L [id number], 10038-6, 86399-6 ####[facility] LABCLIA [id number] [place] [address] [place] Eosinophils (Bld) [#/Vol] 0.00 10*3/uL Normal <0.46 [facility] Comment on above: Order Comment: Speci men Type: BLOOD SPECIMENOrdering Facility: [facility] Address: [address] [place] [address] Performed By: #### L [id number], 47065-1, 41872-9 ####[facility] LABCLIA [id number] [place] [address] [place] Eosinophils/100 WBC (Bld) 0.0 % Normal [facility] Comment on above: Order Comment: Speci men Type: BLOOD SPECIMENOrdering Facility: [facility] Address: [address] [place] [address] Performed By: #### L [id number], 92710-2, 66896-4 ####[facility] LABCLIA [id number] [place] [address] [place] Erythrocyte distribution width (RBC) [Ratio] 23.9 % High 11.5-15.0 [facility] Comment on above: Order Comment: Speci men Type: BLOOD SPECIMENOrdering Facility: [facility] Address: [address] [place] [address] Performed By: #### L [id number], 36628-9, 10401-7 ####[facility] LABCLIA [id number] [place] [address] [place] Hematocrit (Bld) [Volume fraction] 23.5 % Low 36.0-46.0 [facility] Comment on above: Order Comment: Speci men Type: BLOOD SPECIMENOrdering Facility: [facility] Address: [address] [place] [address] Performed By: #### L [id number], 52181-7, 23571-4 ####[facility] LABCLIA [id number] [place] [address] [place] Hemoglobin (Bld) [Mass/Vol] 8.0 g/dL Low 11.5-15.5 [facility] Comment on above: Order Comment: Speci men Type: BLOOD SPECIMENOrdering Facility: [facility] Address: [address] [place] [address] Performed By: #### L [id number], 95734-6, 78770-6 ####[facility] LABCLIA [id number] [place] [address] [place] Lymphocytes (Bld) [#/Vol] 2.48 10*3/uL Normal 1.00-4.00 [facility] Comment on above: Order Comment: Speci men Type: BLOOD SPECIMENOrdering Facility: [facility] Address: [address] [place] [address] Performed By: #### L [id number], 40615-6, 01277-8 ####[facility] LABCLIA [id number] [place] [address] [place] Lymphocytes/100 WBC (Bld) 11.0 % Normal [facility] Comment on above: Order Comment: Speci men Type: BLOOD SPECIMENOrdering Facility: [facility] Address: [address] [place] [address] Performed By: #### L OX0987, 63585-5, 52838-0 ####[facility] LABCLIA [id number] [place] [address] [place] MCH (RBC) [Entitic mass] 31.4 pg Normal 26.0-34.0 [facility] Comment on above: Order Comment: Speci men Type: BLOOD SPECIMENOrdering Facility: [facility] Address: [address] [place] [address] Performed By: #### L [id number], 05846-4, 85028-2 ####[facility] LABCLIA [id number] [place] [address] [place] MCHC (RBC) [Mass/Vol] 34.0 g/dL Normal 30.5-36.0 [facility] Comment on above: Order Comment: Speci men Type: BLOOD SPECIMENOrdering Facility: [facility] Address: [address] [place] [address] Performed By: #### L [id number], 16820-7, 19959-4 ####[facility] LABCLIA [id number] [place] [address] [place] MCV (RBC) [Entitic vol] 92.2 fL Normal 80.0-100.0 [facility] Comment on above: Order Comment: Speci men Type: BLOOD SPECIMENOrdering Facility: [facility] Address: [address] [place] [address] Performed By: #### L AT5912, 95574-6, 86227-7 ####[facility] LABCLIA [id number] [place] [address] [place] Monocytes (Bld) [#/Vol] 0.00 10*3/uL Normal <0.87 [facility] Comment on above: Order Comment: Speci men Type: BLOOD SPECIMENOrdering Facility: [facility] Address: [address] [place] [address] Performed By: #### L [id number], 48628-6, 84029-4 ####[facility] LABCLIA [id number] [place] [address] [place] Monocytes/100 WBC (Bld) 0.0 % Normal [facility] Comment on above: Order Comment: Speci men Type: BLOOD SPECIMENOrdering Facility: [facility] Address: [address] [place] [address] Performed By: #### L [id number], 60052-1, 71666-4 ####[facility] LABCLIA [id number] [place] [address] [place] Neutrophils (Bld) [#/Vol] 3.16 10*3/uL Normal 1.45-7.50 [facility] Comment on above: Order Comment: Speci men Type: BLOOD SPECIMENOrdering Facility: [facility] Address: [address] [place] [address] Performed By: #### L [id number], 06511-5, 34853-2 ####[facility] LABCLIA [id number] [place] [address] [place] Neutrophils/100 WBC (Bld) 14.0 % Normal [facility] Comment on above: Order Comment: Speci men Type: BLOOD SPECIMENOrdering Facility: [facility] Address: [address] [place] [address] Performed By: #### L [id number], 58141-3, 77284-3 ####[facility] LABCLIA [id number] [place] [address] [place] Nucleated RBC (Bld) [#/Vol] 10*3/uL Normal <0.01 [facility] Comment on above: Order Comment: Speci men Type: BLOOD SPECIMENOrdering Facility: [facility] Address: [address] [place] [address] Performed By: #### L [id number], 67051-9, 15929-2 ####[facility] LABCLIA [id number] [place] [address] [place] Nucleated RBC/100 WBC (Bld) [Ratio] 0.0 /100 WBC Normal [facility] Comment on above: Order Comment: Speci men Type: BLOOD SPECIMENOrdering Facility: [facility] Address: [address] [place] [address] Performed By: #### L [id number], 09418-9, 16331-9 ####[facility] LABCLIA [id number] [place] [address] [place] Ovalocytes LM Ql (Bld) Few Normal [facility] Comment on above: Order Comment: Speci men Type: BLOOD SPECIMENOrdering Facility: [facility] Address: [address] [place] [address] Performed By: #### L [id number], 01359-5, 09910-4 ####[facility] LABCLIA [id number] [place] [address] [place] Platelet mean volume (Bld) [Entitic vol] Normal [facility] Comment on above: Order Comment: Speci men Type: BLOOD SPECIMENOrdering Facility: [facility] Address: [address] [place] [address] Result Comment: Unab le to Report. Performed By: #### L [id number], 03918-7, 40758-4 ####[facility] LABCLIA [id number] [place] [address] [place] Platelets (Bld) [#/Vol] 14 10*3/uL Low 150-400 [facility] Comment on above: Order Comment: Speci men Type: BLOOD SPECIMENOrdering Facility: [facility] Address: [address] [place] [address] Result Comment: No c lot detected.Results checked and verified. Performed By: #### L [id number], 14536-7, 54142-3 ####[facility] LABIA [id number] [place] [address] [place] Platelets Estimate (Bld) [#/Vol] Decreased Normal [facility] Comment on above: Order Comment: Speci men Type: BLOOD SPECIMENOrdering Facility: [facility] Address: [address] [place] [address] Performed By: #### L [id number], 83626-7, 44420-2 ####[facility] LABCLIA [id number] [place] [address] [place] RBC (Bld) [#/Vol] 2.55 10*6/uL Low 3.90-5.20 [facility] Comment on above: Order Comment: Speci men Type: BLOOD SPECIMENOrdering Facility: [facility] Address: [address] [place] [address] Performed By: #### L [id number], 13251-7, 14088-7 ####[facility] LABIA [id number] [place] [address] [place] RED CELL MORPH Reviewed: see result s of individual morphologies Normal [facility] Comment on above: Order Comment: Speci men Type: BLOOD SPECIMENOrdering Facility: [facility] Address: [address] [place] [address] Performed By: #### L [id number], 11618-1, 96895-5 ####[facility] LABCLIA [id number] [place] [address] [place] WBC (Bld) [#/Vol] 22.55 10*3/uL High 3.70-11.00 [facility] Comment on above: Order Comment: Speci men Type: BLOOD SPECIMENOrdering Facility: [facility] Address: [address] [place] [address] Result Comment: No c lot detected.Results checked and verified. Performed By: #### L [id number], 82191-9, 34075-5 ####[facility] LABCLIA [id number] [place] [address] [place] CHROM JAMIE LEUK BLDon 09-19 CHROMOSOME LEUK BLD Normal [facility] Comment on above: Order Comment: Speci men Type: BLOOD SPECIMENOrdering Facility: [facility] Address: [address] [place] [address] Result Comment: Julio maria Accession Number: [id number]: Shazia ErazoPathologist: N/ASurgical Pathology No: N/AClinical diagnosis: Acute Myeloid LeukemiaSpecimen Type: Leukemic BloodReceived Date: 09/20/2023Number of cells counted: 20Number of cells analyzed: 20Number of cells karyotyped: 20Banding resolution: 400Banding method: G-bandingDIAGNOSIS: 45,XX,add(1)(p31),t(3;3)(q21;q26.2),add(5)(q12),-7[6]/45,idem,t(9; 22)(q34;q11.2)[14]INTERPRETATION: Abnormal, female karyotypeCOMMENT: Twelve metaphase cells were analyzed from the culturesupplemented with GM-CSF and eight metaphase cells were analyzed fromthe 24 hour unstimulated culture. No normal cells were found; therewere two related abnormal clones. The stemline clone, represented by 6of 20 cells analyzed, was characterized by loss of one copy ofchromosome 7 (monosomy 7), a translocation involving the long arms ofboth chromosomes 3, with breakpoints in bands q21 and q26.2, andaddition of material of uncertain origin replacing the short arm ofone chromosome 1 at band p31 and the long arm of one chromosome 5 atband q12. A sideline clone, represented by 14 of 20 cells analyzed,was characterized by the [place] chromosome, the product of atranslocation involving the long arms of chromosomes 9 and 22, withbreakpoints in bands q34 and q11.2, respectively, in addition to thechanges noted in the stemline clone.The abnormal karyotype provides evidence in support of a myeloidneoplasm that may be classified as an acute myeloid leukemia witht(3;3)(q21;q26.2) in the ICC Classification. 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 Acquiring the Philadelphiachromosome as a secondary abnormality is uncommon, but has beendescribed in rare cases in the literature [PMID: 20840224, [id number];19420383]. The complexity of the karyotype, including monosomy 7 andt(3;3) are unfavorable prognostic features., and adding tyrosinekinase inhibitor therapy may be of benefit.Clinical and pathologic correlation is recommended.As reviewed by Monty Andrade MDPerformed by [facility] HospitalPathology and Laboratory Medicine InstituteDivision of Molecular PathologyCytogenetics Lab, [id number] [place], [place] [address]Phone: Toll free: Performed By: #### C HRBLL ####[facility] ALABAMASCLIA [id number] [facility] [id number] [place] [address] [place] CNPNon 09-20-2023 CNPN Normal [facility] CONFIRM BLOOD TYPEon 024 ABO B Normal [facility] Comment on above: Order Comment: Speci men Type: BLOOD SPECIMENOrdering Facility: [facility] Address: [address] [place] [address] Performed By: #### C ONABO ####[facility] BLOOD BANKCLIA [id number] [address] [address] [place] Rh Nom (Bld) Positive Normal [facility] Comment on above: Order Comment: Speci men Type: BLOOD SPECIMENOrdering Facility: [facility] Address: [address] [place] [address] Performed By: #### C ONABO ####[facility] BLOOD BANKCLIA [id number] [address] [address] [place] Comprehensive metabolic 2000 panelon 09-20-2023 Albumin [Mass/Vol] 3.1 g/dL Low 3.9-4.9 [facility] Comment on above: Order Comment: Speci men Type: BLOOD SPECIMENOrdering Facility: [facility] Address: [address] [place] [address] Performed By: #### 2 4323-8, 277-, , 3083- ####[facility] LABCLIA [id number] [place] [address] [place] ALP [Catalytic activity/Vol] 59 U/L Normal 34-123 [facility] Comment on above: Order Comment: Speci men Type: BLOOD SPECIMENOrdering Facility: [facility] Address: [address] [place] [address] Performed By: #### 2 4323-8, 277-1, , 3083-07 ####[facility] LABCLIA [id number] [place] [id number] [place] ALT [Catalytic activity/Vol] 15 U/L Normal 7-38 [facility] Comment on above: Order Comment: Speci men Type: BLOOD SPECIMENOrdering Facility: [facility] Address: [address] [place] [address] Performed By: #### 2 4323-8, 2777-1, 53293-9, 3083- ####[facility] LABCLIA [id number] [place] [id number] [place] Anion gap [Moles/Vol] 11 mmol/L Normal 9-18 [facility] Comment on above: Order Comment: Speci men Type: BLOOD SPECIMENOrdering Facility: [facility] Address: [address] [place] [address] Performed By: #### 2 4323-8, 2777-1, , 3083- ####[facility] LABCLIA [id number] [place] [id number] [place] AST [Catalytic activity/Vol] 31 U/L Normal 13-35 [facility] Comment on above: Order Comment: Speci men Type: BLOOD SPECIMENOrdering Facility: [facility] Address: [address] [place] [address] Performed By: #### 2 4323-8, 277-1, , 3083-07 ####[facility] LABCLIA [id number] [place] [address] [place] Bilirubin [Mass/Vol] 0.4 mg/dL Normal 0.2-1.3 [facility] Comment on above: Order Comment: Speci men Type: BLOOD SPECIMENOrdering Facility: [facility] Address: [address] [place] [address] Performed By: #### 2 4323-8, 277-, , 3083-07 ####[facility] LABCLIA [id number] [address] [address] [place] Calcium [Mass/Vol] 8.1 mg/dL Low 8.5-10.2 [facility] Comment on above: Order Comment: Speci men Type: BLOOD SPECIMENOrdering Facility: [facility] Address: [address] [place], [place] [address] Performed By: #### 2 4323-8, 2777-1, , 3083- ####[facility] LABCLIA [id number] [place] [address] [place] Chloride [Moles/Vol] 107 mmol/L High 97-105 [facility] Comment on above: Order Comment: Speci men Type: BLOOD SPECIMENOrdering Facility: [facility] Address: [address] [place] [address] Performed By: #### 2 4323-8, 2777-1, 10134-4, 3083-1 ####[facility] [id number] [place] [id number] [place] CO2 [Moles/Vol] 21 mmol/L Low 22-30 [facility] Comment on above: Order Comment: Speci men Type: BLOOD SPECIMENOrdering Facility: [facility] Address: [address] [place] [address] Performed By: #### 2 4323-8, 2777-1, 07184-8, 3083- ####[facility] [id number] [place] [address] [place] Creatinine [Mass/Vol] 0.60 mg/dL Normal 0.58-0.96 [facility] Comment on above: Order Comment: Speci men Type: BLOOD SPECIMENOrdering Facility: [facility] Address: [address] [place] [address] Performed By: #### 2 4323-8, 2777-1, 40023-0, 3083-1 ####[facility] [id number] [place] [id number] [place] Creatinine and Glomerular filtration rate.predicted panel (S/P/Bld) 90 mL/min/1.73m??? Normal >=60 [facility] Comment on above: Order Comment: Speci men Type: BLOOD SPECIMENOrdering Facility: [facility] Address: [address] [place] [address] Result Comment: Akiko mated Glomerular Filtration Rate (eGFR) is calculated using the 2020 CKD-EPI creatinine equation. This equation utilizes serum creatinine, sex, and age as parameters. The creatinine assay has traceable calibration to isotope dilution-mass spectrometry. Refer to KDIGO guidelines for clinical interpretation. In patients with unstable renal function, e.g. those with acute kidney injury, the eGFR may not accurately reflect actual GFR. Performed By: #### 2 4323-8, 2776-, , 3083-07 ####[facility] LABCLIA [id number] [address] [address] [place] Glucose [Mass/Vol] 92 mg/dL Normal 74-99 [facility] Comment on above: Order Comment: Qi reynolds Type: BLOOD SPECIMENOrdering Facility: [facility] Address: [address] [place] [address] Result Comment: The [place] [employer] (ADA) provides guidance for cutoff values for fasting glucose and random glucose. The ADA defines fasting as no caloric intake for at least 8 hours. Fasting plasma glucose results between 100 to 125 mg/dL indicate increased risk for diabetes (prediabetes).Fasting plasma glucose results greater than or equal to 126 mg/dL meet the criteria for diagnosis of diabetes. In the absence of unequivocal hyperglycemia, results should be confirmed by repeat testing. In a patient with classic symptoms of hyperglycemia or hyperglycemic crisis, random plasma glucose results greater than or equal to 200 mg/dL meet the criteria for diagnosis of diabetes.Reference: Standards of Medical Care in Diabetes 2016, [place] [employer]. Diabetes Care. 2016.39(Suppl 1). Performed By: #### 2 4323-8, 2776-, , 3083-07 ####[facility] LABCLIA [id number] [address] [address] [place] Potassium [Moles/Vol] 3.9 mmol/L Normal 3.7-5.1 [facility] Comment on above: Order Comment: Qi reynolds Type: BLOOD SPECIMENOrdering Facility: [facility] Address: [address] [place] [address] Performed By: #### 2 4323-8, 277-, , 3083-07 ####[facility] LABCLIA [id number] [address] [address] [place] Protein [Mass/Vol] 5.4 g/dL Low 6.3-8.0 [facility] Comment on above: Order Comment: Speci men Type: BLOOD SPECIMENOrdering Facility: [facility] Address: [address] [place] [address] Performed By: #### 2 4323-8, 277-1, 20351-7, 3083- ####[facility] LABIA [id number] [address] [address] [place] Sodium [Moles/Vol] 139 mmol/L Normal 136-144 [facility] Comment on above: Order Comment: Speci men Type: BLOOD SPECIMENOrdering Facility: [facility] Address: [address] [place] [address] Performed By: #### 2 4323-8, 277-, 34171-4, 3083- ####[facility] LABIA [id number] [place] [address] [place] Urea nitrogen [Mass/Vol] 8 mg/dL Normal 7-21 [facility] Comment on above: Order Comment: Speci men Type: BLOOD SPECIMENOrdering Facility: [facility] Address: [address] [place] [address] Performed By: #### 2 4323-8, 277-, , 3083-07 ####[facility] LABIA [id number] [address] [address] [place] ECG COMPLETEon 09-20-2023 ECG COMPLETE Normal [facility] FLOW CYTOMETRY FOR LEUKEMIA/ LYMPHOMA (FCLL) PERFORMABLEon 09-20-2023 FLOW CYTOMETRY ORDER STATUS See Results in chart under F case ID Normal [facility] Comment on above: Order Comment: Speci men Type: BLOOD SPECIMENOrdering Facility: [facility] Address: [address] [place] [address] Performed By: #### F CLLRFLX, FCLLP ####[facility] LABCLIA [id number] [place] [address] [place] FLOW CYTOMETRY FOR LEUKEMIA/ LYMPHOMA (FCLL) REFLEXon 09-20-2023 DIAGNOSIS COMMENT Normal [facility] Comment on above: Order Comment: Speci men Type: BLOOD SPECIMENOrdering Facility: [facility] Address: [address] [place] [address] Result Comment: This test was developed and its performance characteristics determined by [facility]'s [facility] Pathology and Laboratory Medicine [place] ([facility]). It has not been cleared or approved by the FDA. -[facility] is regulated under CLIA as qualified to perform high-complexity testing. This test is used for clinical purposes. It should not be regarded as investigational or for research. Performed By: #### F CLLRFLX, FCLLP ####[facility] LABCLIA [id number] [address] [place] FINAL PERFORMING LAB Normal [facility] Comment on above: Order Comment: Speci men Type: BLOOD SPECIMENOrdering Facility: [facility] Address: [address] [place] [address] Result Comment: Diag nostic interpretation performed at [facility], [address] [place] [address] CLIA# [id number] Director: Jordan García M.D. Performed By: #### F CLLRFLX, FCLLP ####[facility] LABCLIA [id number] [address] [place] FLOW CYTOMETRY RESULTS Normal [facility] Comment on above: Order Comment: Speci men Type: BLOOD SPECIMENOrdering Facility: [facility] Address: [address] [place] [address] Result Comment: Spec imen type: Peripheral bloodCBC (09/20/2023): WBC = 18.92 k/uL; Hgb = 7.9 g/dL; Plt = 13 k/uLDifferential (%): Neutrophil: 15; Lymphocyte: 6; Monocyte: 3; Eosinophil: 0; Basophil: 0; Blasts: 76Morphology comments: Blasts are intermediate to large in size with scant to moderate amount of cytoplasm and enlarged nuclei with fine chromatin and prominent nucleoli.Viability: 100%Results: % total eventsLymphocyte gate: 3Granulocyte gate: 10Monocyte gate: 0Blast gate: 82Flow Cytometry Peripheral Blood ImmunophenotypingMarker Normal Cell Type Result (Blasts)CD2 T/NK cells NegativeCD3 T-cells NegativeCD4 T-cell subset NegativeCD5 T-cells NegativeCD7 T/NK-cells PositiveCD8 T-cell subset AmtikhyuXA15 B-cell subset UbcgzmrfCC48l Myeloid LpanfcbjTD55 Myeloid Positive (subset)CD14 Monocytes ElhfmjipZK81 Myeloid GdproexzUE92 B-cells ZnmgghooRL96 B-cells MkiaqwdnKC08 B-cells HmwrdfkbRM38 Myeloid Positive (minor subset)CD34 Blasts Positive (subset)CD38 Activation KngkynvkZG42 Can-leukocyte Positive (dim)CD56 T/NK-cells KelnqyljJW61 Myeloid HzgpdtgbLM33 Myeloid QjiqyqarRN220 Blasts Positive (subset)HLA-DR B-cells Positive (subset)MPO MarkersMarker Normal Cell Type Result (Blasts)cCD3 T-cells VqrdqaaxuWX27 B-cells NegativeMPO Grans NegativeFlow cytometric analysis of the peripheral blood reveals that 82% of total events have the CD45 and side-scatter properties of blasts.The blasts are myeloid and are positive for CD7, CD13 (subset), CD33 (minor subset), CD34 (subset), CD45 (dim), CD117 (subset) and HLA-DR (subset).Lymphocytes are 3% of total events by CD45 and side scatter characteristics. The lymphocytes are composed of a mixture of T-cells (90%; CD4:CD8 ratio = 4.1), NK cells (2%) and B-cells (8%). Performed By: #### F CLLRFLX, FCLLP ####[facility] LABCLIA [id number] [place] [address] [place] GROSS DESCRIPTION A. BLOOD Normal [facility] Comment on above: Order Comment: Speci men Type: BLOOD SPECIMENOrdering Facility: [facility] Address: [address] [place] [address] Result Comment: RECE IVED 3 ML OF PERIPHERAL BLOOD IN EDTA Performed By: #### F CLLRFLX, FCLLP ####[facility] LABCLIA [id number] [place] [address] [place] INTERPRETATION Normal [facility] Comment on above: Order Comment: Speci men Type: BLOOD SPECIMENOrdering Facility: [facility] Address: [address] [place] [address] Result Comment: Thes e findings are consistent with involvement by an acute myeloid leukemia.Correlation with the clinical findings is suggested.MON/NB 09/20/2023 Performed By: #### F CLLRFLX, FCLLP ####[facility] LABCLIA [id number] [address] [place] FLT3 ITD HN PANEL BLOODon CLARITY SIGNOUT PATHOLOGIST [id number] Normal [facility] Comment on above: Order Comment: Speci rodolfo Type: BLOOD SPECIMENOrdering Facility: [facility] Address: [address] [place] [address] Performed By: #### F 3IP, LAURA ####[facility] ILLUMINA LIMSCLIA [id number] [address] [place] FLT3 ITD HN PANEL BLOOD Normal [facility] Comment on above: Order Comment: Qi reynolds Type: BLOOD SPECIMENOrdering Facility: [facility] Address: [address] [place] [address] Result Comment: FLT3 Internal Tandem Duplication (ITD) Mutation TestingLaboratory Accession Number: [id number] Internal Tandem Duplication (ITD) mutation: Not DetectedComment:FLT3/ITD is found in approx. 20-30% of adult patients and in approx.5-12% of infants and children with acute myeloid leukemia (AML).FLT3/ITD are most often associated with a normal karyotype, t(15;17),and t(6;9). FLT3/ITD is associated with leukocytosis and a poorprognosis in both children and adults. In cytogenetically normal AML,FLT3/ITD has been associated with a poor prognosis. FLT3 mutationstatus has been reported to change between diagnosis and relapse; thismay relate to the instability of FLT3 mutations.Methodology:DNA is isolated from the specimen provided. Regions of the CIQ6cxxzceco kinase receptor gene are subjected to the polymerase chainreaction (PCR) using fluorescently labeled forward PCR primers. PCRproducts are analyzed by capillary gel electrophoresis for in-framelength mutations (ITD mutations). This assay can detect ITD mutantalleles which represent approx. 5-10% of the total alleles. The ITDratio is calculated as the area under the curve of the ITD signal tothe area under the curve of the wild type signal.Limitations:Due to the diversity of potential ITD mutations, standardizedcalibration material is not available and calculated ITD peak ratiosmay therefore not be directly comparable across laboratories. As PCRefficiency varies with the size of the insertion mutation, calculatedpeak ratios may not necessarily correlate with percentage of mutantalleles. ITD ratio information should be interpreted with caution, inconjunction with other cytogenetic and molecular findings to assessprognosis within myeloid neoplasms.References:1) Kyle MP, Kin P, Vianneyi E, et al. Mutational landscapeof AML with normal cytogenetics: biological and clinical implications.Blood Rev.2013;27:13-22.2) Duane VIDHYA, Digna M, Jaime ME, et al. Prognostic relevance ofintegrated genetic profiling in acute myeloid leukemia. N Engl J Med.2011Oct 04;366 (12):1079-89.3) Chinyere H, Musa E, Evangelist Reyez, et al. Diagnosis and mangement ofAML in adults: 2017 ELN recommendations from an international expertpanel. Blood 129,424-448 (2017).Disclaimer:This test was developed and its performance characteristics determinedby [facility]'s [facility] Pathology and LaboratoryMedicine [place] ([facility]). It has not been cleared or approved bythe FDA. [facility] is regulated under CLIA as certified to perform high-complexity testing. This test is used for clinical purposes. It shouldnot be regarded as investigational or for research.Testing and interpretation performed at [facility], [address] [place] [id number] CLIA Number: [id number] reviewed by Maria A Doyle, PhD, [facility] Performed By: #### F LAURA ALVARADO ####CLARITY KATARINA WALLSSCCAMILLAA [id number] [place] [address] [place] Fibrinogen PPP-mCncon 2023 Fibrinogen Coag (PPP) [Mass/Vol] 476 mg/dL High 200-400 [facility] Comment on above: Order Comment: Speci men Type: BLOOD SPECIMENOrdering Facility: [facility] Address: [address] [place] [address] Result Comment: Samp le checked for clot.Result rechecked. Performed By: #### 3 4528-0, 17950-5, 3255-7 ####[facility] LABCLIA [id number] [place] [address] [place] HBV core Ab Ser Qlon 024 HBV core Ab Ql (S) Negative Normal Negative [facility] Comment on above: Order Comment: Speci [facility] Type: BLOOD SPECIMENOrdering Facility: [facility] Address: [address] [place] [address] Result Comment: No e vidence of current or past infection with Hepatitis B virus. Should recent infection be suspected, repeat testing may be considered 3-4 weeks after this draw. Performed By: #### 5 195-3, 39076-7, 52431-8, 61439-2 ####[facility] LABCLIA [id number] [place] [address] [place] HBV surface Ab Ql (S)on HBV surface Ab Qn (S) <8.00 Normal [facility] Comment on above: Order Comment: Speci men Type: BLOOD SPECIMENOrdering Facility: [facility] Address: [address] [place] [address] Result Comment: <8 m IU/mL: No serological evidence of immunity to Hepatitis B Virus.>/= 8 to <12 mIU/mL: No serological evidence of immunity to Hepatitis B Virus.>/= 12 mIU/mL: Consistent with serological evidence of immunity to Hepatitis B Virus. Performed By: #### 5 195-3, 98336-9, 12581-6, 88984-7 ####[facility] LABCLIA [id number] [place] [address] [place] HBV surface Ab Ser Qlon HBV surface Ab Ql (S) Negative Normal [facility] Comment on above: Order Comment: Speci men Type: BLOOD SPECIMENOrdering Facility: [facility] Address: [address] [place] [address] Result Comment: No s erological evidence of immunity to Hepatitis B Virus. Performed By: #### 5 195-3, 48907-3, 91493-9, 90053-7 ####[facility] LABCLIA [id number] [address] [place] HBV surface Ag Ser Qlon HBV surface Ag Ql (S) Negative Normal Negative [facility] Comment on above: Order Comment: Speci men Type: BLOOD SPECIMENOrdering Facility: [facility] Address: [address] [place] [address] Performed By: #### 5 195-3, 19318-8, 30723-5, 56126-2 ####[facility] LABCLIA [id number] [address] [place] HCV Ab Ser Qlon 09-20-2023 HCV Ab Ql (S) Negative Normal Negative [facility] Comment on above: Order Comment: Speci men Type: BLOOD SPECIMENOrdering Facility: [facility] Address: [address] [place] [address] Result Comment: The result suggests no evidence of active infection with Hepatitis C virus. Should recent infection be suspected, repeat testing may be considered 4-6 weeks after this draw. Performed By: #### 1 6128-1 ####[facility] LABCLIA [id number] [place] [address] [place] HISTORY PHYSICALon 4 HISTORY PHYSICAL Normal [facility] HIV 1+2 Ab IA Qlon 4 HIV 1 and 2 Ab IA.rapid Nom (S/P/Bld) Normal [facility] Comment on above: Order Comment: Speci men Type: BLOOD SPECIMENOrdering Facility: [facility] Address: [address] [place] [address] Result Comment: Test not indicated. Performed By: #### 5 195-3, 17906-1, 88264-0, 58503-7 ####[facility] LABIA [id number] [place] [address] [place] HIV 1+2 Ab+HIV1 p24 Ag IA Ql Non-Reactive Normal Nonreactive [facility] Comment on above: Order Comment: Speci men Type: BLOOD SPECIMENOrdering Facility: [facility] Address: [address] [place] [address] Performed By: #### 5 195-3, 94179-4, 26896-5, 42605-2 ####[facility] LABIA [id number] [place] [address] [place] HIV immunoassay testing algorithm interpretation (S/P/Bld) [Interp] Normal [facility] Comment on above: Order Comment: Speci men Type: BLOOD SPECIMENOrdering Facility: [facility] Address: [address] [place] [address] Result Comment: No e vidence of HIV-1 or HIV-2 infection. Should recent infection be suspected, repeat testing may be considered 2-3 weeks after this draw.[place] Rev. Code 3701.243(E): This information has been disclosed to you from confidential records protected from disclosure by state law. ???You shall make no further disclosure of this information without the specific, written, and informed release of the individual to whom it pertains or as otherwise permitted by state law. A general authorization for the release of medical or other information is not sufficient for the purpose of the release of HIV test results or diagnoses. Performed By: #### 5 195-3, 09930-3, 37597-5, 45195-7 ####[facility] LABCLIA [id number] [place] [address] [place] HbA1c (Bld)on 09-20-2023 Average glucose Estimated from glycated hemoglobin (Bld) [Mass/Vol] 103 mg/dL Normal [facility] Comment on above: Order Comment: Qi reynolds Type: BLOOD SPECIMENOrdering Facility: [facility] Address: [address] [place] [address] Result Comment: eAG: (Estimated average glucose) is a calculated value from HgbA1c and is employee's representative of the average blood glucose level in the last 2-3 month period. Performed By: #### L [id number], 52412-0, 79044-8 ####[facility] LABIA [id number] [place] [address] [place] HbA1c (Bld) [Mass fraction] 5.2 % Normal 4.3-5.6 [facility] Comment on above: Order Comment: Qi reynolds Type: BLOOD SPECIMENOrdering Facility: [facility] Address: [address] [place] [address] Result Comment: Amer [place] Diabetes Association guidelines indicate that patients with HgbA1c in the range 5.7-6.4% are at increased risk for development of diabetes, and intervention by lifestyle modification may be beneficial. HgbA1c greater or equal to 6.5% is considered diagnostic of diabetes. Performed By: #### L [id number], 54612-7, 17655-6 ####[facility] LABCLIA [id number] [place] [id number] [place] LDH SerPl-cCncon 09-20-2023 LDH [Catalytic activity/Vol] 1496 U/L High 135-214 [facility] Comment on above: Order Comment: Qi reynolds Type: BLOOD SPECIMENOrdering Facility: [facility] Address: [address] [place] [address] Performed By: #### 2 532-0 ####[facility] LABCLIA [id number] [place] [address] [place] Magnesium SerPl-mCncon 09-19 Magnesium [Mass/Vol] 1.8 mg/dL Normal 1.7-2.3 [facility] Comment on above: Order Comment: Speci men Type: BLOOD SPECIMENOrdering Facility: [facility] Address: [address] [place] [address] Performed By: #### 2 4323-8, 2777-1, 61022-6, 3084-1 ####[facility] LABCLIA [id number] [place] [address] [place] PATH INTERP CBCDIF (LAB REFL EX ORDER-NO BILL)on 09-20-2023 Shoe Worker review Vish (Unsp spec) [Interp] Reviewed by Delilah Frost MD Normal [facility] Comment on above: Order Comment: Speci men Type: BLOOD SPECIMENOrdering Facility: [facility] Address: [address] [place] [address] Performed By: #### L [id number], 99078-0, 16992-1 ####[facility] LABCLIA [id number] [address] [place] STAFF REVIEW, CBCDIF Normal [facility] Comment on above: Order Comment: Speci men Type: BLOOD SPECIMENOrdering Facility: [facility] Address: [address] [place] [address] Result Comment: Cons istent with acute leukemia. Recommend correlation with bone marrow and flow cytometry results.Microcytic anemia suggestive of iron deficiency or anemia of chronic diseaseThrombocytopenia Performed By: #### L [id number], 22156-5, 81973-9 ####[facility] LABCLIA [id number] [place] [address] [place] PT panel Coag (PPP)on 2023 INR Coag (PPP) [Relative time] 1.4 {INR} High 0.9-1.3 [facility] Comment on above: Order Comment: Qi reynolds Type: BLOOD SPECIMENOrdering Facility: [facility] Address: [address] [place] [id number] Result Comment: Clementine min K Antagonist (VKA) Therapeutic Range: INR 2 to 3 (Target INR of 2.5)Note: For patients treated with VKA drugs, such as warfarin, the [place] [employer] 2012 Guideline recommends a therapeutic INR range of 2 to 3 (target INR of 2.5). This recommendation includes high-risk patients with antiphospholipid syndrome with previous arterial or venous thromboembolism, current-generation mechanical or bioprosthetic aortic heart valve replacement.Note: Patients with mechanical aortic valve replacement and additional risk factors for thromboembolic events (atrial fibrillation, previous thromboembolism, LV dysfunction, hypercoagulable conditions) or an older generation mechanical AVR (i.e., ball in-Cage) or any mechanical MVR should have a INR therapeutic range of 2.5 to 3.5 (target INR of 3).Collins GH, et al. Chest 2012, 141:7S-47SNishfabrizio RA, et al. [facility] 2017, 70: 252-289 Performed By: #### 3 4528-0, 02311-0, 3255-7 ####[facility] LAB[facility] [id number] [place] [address] [place] PT Coag (PPP) [Time] 14.5 s High 9.7-13.0 [facility] Comment on above: Order Comment: Qi reynolds Type: BLOOD SPECIMENOrdering Facility: [facility] Address: [address] [place] [address] Performed By: #### 3 4528-0, 62329-3, 3255-7 ####[facility] [id number] [place] [id number] [place] Phosphate SerPl-mCncon 09-19 Phosphate [Mass/Vol] 2.7 mg/dL Normal 2.7-4.8 [facility] Comment on above: Order Comment: Qi reynolds Type: BLOOD SPECIMENOrdering Facility: [facility] Address: [address] [place] [address] Performed By: #### 2 4323-8, 7-1, 42609-2, 3083- ####[facility] LABCLIA [id number] [place] [id number] [place] SOCIAL WORKon 09-20-2023 SOCIAL WORK Normal [facility] TYPE + SCREENon 09-20-2023 HISTORICAL AB SCR STATUS Negative Normal [facility] Comment on above: Order Comment: Speci men Type: BLOOD SPECIMENOrdering Facility: [facility] Address: [address] [place] [address] Performed By: #### B BRABI ####[facility] LABCLIA [id number] [place] [address] [place]#### LIBORIO, TSCR ####[facility] BLOOD BANKCLIA [id number] [address] [place] TYPE AND SCREEN EXPIRATION 09/23/2023 23:59 Normal [facility] Comment on above: Order Comment: Speci men Type: BLOOD SPECIMENOrdering Facility: [facility] Address: [address] [place] [address] Performed By: #### B BRABI ####[facility] LABCLIA [id number] [place] [address] [place]#### LIBORIO, TSCR ####[facility] BLOOD BANKCLIA [id number] [place] [address] [place] Urate SerPl-mCncon 4 Urate [Mass/Vol] 3.3 mg/dL Normal 2.5-6.6 [facility] Comment on above: Order Comment: Speci men Type: BLOOD SPECIMENOrdering Facility: [facility] Address: [address] [place] [address] Performed By: #### 2 4323-8, 7-1, 34115-5, 3084-1 ####[facility] LABCLIA [id number] [place] [address] [place] Urinalysis complete panel (U )on 09-20-2023 Bacteria LM.HPF (Urine sed) [#/Area] Negative Normal Negative [facility] Comment on above: Order Comment: Speci men Type: URINE SPECIMENOrdering Facility: [facility] Address: [address] [place] [address] Performed By: #### 2 4356-8 ####[facility] LABCLIA [id number] [place] [address] [place] Bilirubin Ql (U) Negative Normal Negative [facility] Comment on above: Order Comment: Speci men Type: URINE SPECIMENOrdering Facility: [facility] Address: [address] [place] [address] Performed By: #### 2 4356-8 ####[facility] LABCLIA [id number] [place] [address] [place] Clarity (Unsp spec) Clear Normal Clear [facility] Comment on above: Order Comment: Speci men Type: URINE SPECIMENOrdering Facility: [facility] Address: [address] [place] [address] Performed By: #### 2 4356-8 ####[facility] LABIA [id number] [place] [address] [place] Color (U) Yellow Normal Yellow [facility] Comment on above: Order Comment: Speci men Type: URINE SPECIMENOrdering Facility: [facility] Address: [address] [place] [address] Performed By: #### 2 4356-8 ####[facility] LABCLIA [id number] [place] [address] [place] Epithelial cells LM.HPF (Urine sed) [#/Area] None Seen Normal [facility] Comment on above: Order Comment: Speci men Type: URINE SPECIMENOrdering Facility: [facility] Address: [address] [place] [address] Performed By: #### 2 4356-8 ####[facility] LABCLIA [id number] [place] [address] [place] Glucose Test strip (U) [Mass/Vol] Negative Normal Negative [facility] Comment on above: Order Comment: Speci men Type: URINE SPECIMENOrdering Facility: [facility] Address: [address] [place] [address] Performed By: #### 2 4356-8 ####[facility] LABCLIA [id number] [place] [address] [place] Hemoglobin Ql (U) Trace Abnormal Negative [facility] Comment on above: Order Comment: Speci men Type: URINE SPECIMENOrdering Facility: [facility] Address: [address] [place] [address] Performed By: #### 2 4356-8 ####[facility] LABCLIA [id number] [place] [address] [place] Hyaline casts (Urine sed) [#/Area] 0 /[LPF] Normal 0 /LPF [facility] Comment on above: Order Comment: Speci men Type: URINE SPECIMENOrdering Facility: [facility] Address: [address] [place] [address] Performed By: #### 2 4356-8 ####[facility] LABCLIA [id number] [place] [address] [place] Ketones Ql (U) Negative Normal Negative [facility] Comment on above: Order Comment: Speci men Type: URINE SPECIMENOrdering Facility: [facility] Address: [address] [place] [address] Performed By: #### 2 4356-8 ####[facility] LABCLIA [id number] [place] [address] [place] Leukocyte esterase Test strip Ql (U) Trace Abnormal Negative [facility] Comment on above: Order Comment: Speci men Type: URINE SPECIMENOrdering Facility: [facility] Address: [address] [place] [address] Performed By: #### 2 4356-8 ####[facility] LABCLIA [id number] [place] [address] [place] Nitrite Ql (U) Negative Normal Negative [facility] Comment on above: Order Comment: Speci men Type: URINE SPECIMENOrdering Facility: [facility] Address: [address] [place] [address] Performed By: #### 2 4356-8 ####[facility] LABCLIA [id number] [place] [address] [place] pH (U) 6.5 [pH] Normal <8.5 [facility] Comment on above: Order Comment: Speci men Type: URINE SPECIMENOrdering Facility: [facility] Address: [address] [place] [address] Performed By: #### 2 4356-8 ####[facility] LABCLIA [id number] [place] [address] [place] Protein (U) [Mass/Vol] Trace Abnormal Negative [facility] Comment on above: Order Comment: Speci men Type: URINE SPECIMENOrdering Facility: [facility] Address: [address] [place] [address] Performed By: #### 2 4356-8 ####[facility] LABCLIA [id number] [place] [address] [place] RBC LM.HPF (Urine sed) [#/Area] 0-2 /HPF Normal 0-2 /HPF [facility] Comment on above: Order Comment: Speci men Type: URINE SPECIMENOrdering Facility: [facility] Address: [address] [place] [address] Performed By: #### 2 4356-8 ####[facility] LABCLIA [id number] [place] [address] [place] Specific gravity (U) [Rel density] 1.014 Normal 1.005-1.030 [facility] Comment on above: Order Comment: Speci men Type: URINE SPECIMENOrdering Facility: [facility] Address: [address] [place] [address] Performed By: #### 2 4356-8 ####[facility] LABIA [id number] [place] [address] [place] Urobilinogen Ql (U) 1.0 EU/dL Normal 0.2-1.0 EU/dL [facility] Comment on above: Order Comment: Speci men Type: URINE SPECIMENOrdering Facility: [facility] Address: [address] [place] [address] Performed By: #### 2 4356-8 ####[facility] LABIA [id number] [place] [address] [place] WBC LM.HPF (Urine sed) [#/Area] 0-5 /HPF Normal 0-5 /HPF [facility] Comment on above: Order Comment: Speci men Type: URINE SPECIMENOrdering Facility: [facility] Address: [address] [place] [address] Performed By: #### 2 4356-8 ####[facility] LABIA [id number] [place] [address] [place] XR CHEST 2V FRONTAL/LATon XR CHEST 2V FRONTAL/LAT Normal [facility] aPTT PPPon 09-20-2023 aPTT Coag (PPP) [Time] 33.9 s High 23.0-32.4 [facility] Comment on above: Order Comment: Speci men Type: BLOOD SPECIMENOrdering Facility: [facility] Address: [address] [place] [address] Performed By: #### 3 4528-0, 43722-1, 3255-7 ####[facility] LABCLIA [id number] [address] [address] [place] Ambulatory Visit Summaryon 0 09-18-2023 Ambulatory Visit Summary MYRNA SHEN :1940 Visit Date:09/18/2023 Ambulatory Visit Instructions Your Diagnosis BMI 28.0-28.9,adult Your Care Team Attending Physician - Darby Hamlin MD Primary Care Physician - Darby Hamlin MD This Is Your Medications [place] [facility] [place] (Test strips) amlodipine (amLODIPine 5 mg Tab) apixaban (Eliquis 5 mg oral tablet) aspirin (aspirin 81 mg Oral EC Tab) atorvastatin (atorvastatin 40 mg Tab) furosemide (furosemide 20 mg Tab) metformin (metformin 500 mg Tab) metoprolol (Metoprolol tartrate 25 mg Tab) Procedures Performed CABG - Coronary artery bypass graft. Discharge Vitals Heart Rate (Peripheral) 86 Blood Pressure 130/58 Height 161 cm Height 63 in Weight 73.6 kg Weight 161.92 lb BMI 28.39 What to do next Scheduled Follow-Up Appointments Sunday. 2023 3:15 PM EST With: Darby Hamlin MD Where: [facility] [place] [facility] Family Medicine Office/Clini c Noteon 09-18-2023 Family Medicine Office/Clinic Note Chief Complaint low BP and dizzy HPI Staff Myrna is an 83 year old female presenting for acute visit Acute weak, heart rate up and BP down This nurse and JUAN Sloan assist patient to a wheelchair as patient is weak in appearance and reports being dizzy. Patient reports diastolic BP in the 50's x 2 weeks. Patient reports taking BP medications even with a low BP. Patient also reports not eating. History of Present Illness - Pt here because of feeling dizzy, palpitations and noticed a lower diastolic BP - Pt states this has been going on for a while. - Pt states today the dizziness was so bad she could not get up and walk. - Pt states she feels better after drinking, then refuses to drink again. Review of Systems PHQ Score Initial Depression Screen Score: 0 SCORE Physical Exam Vitals & Measurements HR: 86(Peripheral) BP: 130/58 SpO2: 98% HT: 63 in HT: 161 cm WT: 73.6 kg WT: 161.92 lb BMI: 28.39 General: alert, no acute distress ENMT: oral mucosa moist, Cardiovascular: regular rate and rhythm, normal peripheral perfusion Respiratory: Lungs CTA, respirations non labored Extremities: no deformity, no trauma Neurological: oriented x 4, LOC appropriate for age, Wheelchair bound today. Abdomen: Soft, Nontender, Non-distended, + BS Assessment/Plan Total time spent preparing for the encounter, evaluating and assessing the patient, documenting the visit, and ordering appropriate follow-up work was 30 minutes. 1. Dehydration (E86.0: Dehydration) Concerned for worsening dehydration and weakness. - ER notified and patient was sent to the ER 2. Paroxysmal atrial fibrillation (I48.0: Paroxysmal atrial fibrillation) - No Afib today but concerns for Afib with lower BPS and higher HR - Asked the ER to monitor 3. BMI 28.0-28.9,adult (Z68.28: Body mass index [BMI] 28.0-28.9, adult) - BMI education given Ordered: Body Mass Index (BMI) documented 3008F Current tobacco non-user 1036F Depression Screening Negative 3352F Medication list documented in medical record 1159F Patient screen for fall risk: no falls in last year or 1 fall with no injury in last year 1101F Follow-up No qualifying data available Problem List/Past Medical History Ongoing Atherosclerosis of [place] coronary artery of [place] heart with angina pectoris Dehydration Hx of melanoma of skin Hypercholesterolemia Neurodermatitis Paroxysmal atrial fibrillation Spinal stenosis in cervical region Stage 3a chronic kidney disease (CKD) Stasis dermatitis Uncontrolled type 2 diabetes mellitus with hyperglycemia Historical No qualifying data Procedure/Surgical History CABG - Coronary artery bypass graft. Medications amLODIPine 5 mg Tab, 5 mg= 1 tab(s), Oral, Daily aspirin 81 mg Oral EC Tab, 81 mg= 1 tab(s), Oral, Daily atorvastatin 40 mg Tab, 40 mg= 1 tab(s), Oral, Daily Eliquis 5 mg oral tablet, 5 mg= 1 tab(s), Oral, BID furosemide 20 mg Tab, 20 mg= 1 tab(s), Oral, Daily metformin 500 mg Tab, 500 mg= 1 tab(s), Oral, BID Metoprolol tartrate 25 mg Tab, 25 mg= 1 tab(s), Oral, BID Test strips, See Instructions, 3 refills Allergies spironolactone (Rash) Vitamin C (Unknown) Social History Alcohol 1-2 times per year, Household alcohol concerns: No., 08/31/2023 Substance Abuse - Denies Substance Abuse, 12/12/2022 Household substance abuse concerns: No., 12/12/2022 Tobacco - Denies Tobacco Use, 12/12/2022 Never (less than 100 in lifetime) Tobacco Use:. Never Smokeless Tobacco Use:. Household tobacco concerns: No., 09/18/2023 Family History Family history is negative Immunizations Vaccine Date Status SARS-CoV-2 (COVID-19) mRNA-1273 vaccine 09/17/2020 Recorded SARS-CoV-2 (COVID-19) mRNA-1273 vaccine 08/20/[address] [facility] Comment on above: Result Comment: Elec tronically Signed By: Boubacar VINCENT, Darby Garay\.br\Date and Time Signed: 09/18/23 12:38 EST Leland 09-18-2023 L Specimen: [id number] Received: 09/18/23 Status: RADHA Ni Num: [id number] Spec Type: Impression Subm Dr: Gladys,Lab Tissues: PATHPER Procedures: PATHREVIEW Age/ Patient Sex Location Account Attending Physician Myrna Shen 83/F [facility] [id number] NON STAFF SPEC NUM: [id number] RECD: 09/18/23 STATUS: RADHA NI NUM: [id number] SYBIL: 09/18/[address]: Gladys,Lab ENTERED: 09/18/[address] [facility] [address]: SPEC TYPE: Impression DEPT: TERRA Grace ENTERED BY: [id number] RECV BY: [id number] ORDERED: PATHREVIEW ORDERED: PATHREVIEW Pathologist Review Abnormal CBC for peripheral blood smear review: -Mild to moderate leukocytosis with mild neutrophilia, and markedly increased immature blast for at least 75% of the leukocytes -Severe anemia of moderate macrocytic type, including moderate anisocytosis with moderate macrocytosis -Severe thrombocytopenia Comment: -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 Jez Benitez was also notified of the observation at 3:20 PM on 09/18/2023 CPT: 25619 CBC No results available. Specimen: [id number] Received: 09/18/23 Status: RADHA Ni Num: [id number] Spec Type: Impression Subm Dr: Gladys,Lab Tissues: PATHPER Procedures: PATHREVIEW Patient: Myrna Shen [id number] (Continued) Signed (signature on file) Randall Casillas MD 09/18/23 1528 [facility] Ambulatory Visit Summaryon 0 08-31-2023 Ambulatory Visit Summary MYRNA SHEN :1940 Visit Date:08/31/2023 Ambulatory Visit Instructions Your Diagnosis Annual visit for general adult medical examination without abnormal findings Encounter for screening for other disorder Screening declined by patient Type 2 diabetes mellitus without complication, without long-term current use of insulin Stage 3a chronic kidney disease (CKD) Paroxysmal atrial fibrillation BMI 29.0-29.9,adult Your Care Team Attending Physician - Darby Hamlin MD Primary Care Physician - Darby Hamlin MD This Is Your Medications List Mis Prescription (Test strips) amlodipine (amLODIPine 5 mg Tab) apixaban (Eliquis 5 mg oral tablet) aspirin (aspirin 81 mg Oral EC Tab) atorvastatin (atorvastatin 40 mg Tab) furosemide (furosemide 20 mg Tab) metformin (metformin 500 mg Tab) metoprolol (Metoprolol tartrate 25 mg Tab) Procedures Performed CABG - Coronary artery bypass graft. Discharge Vitals Heart Rate (Peripheral) 74 Blood Pressure 122/60 Height 161 cm Height 63 in Weight 75 kg Weight 165 lb BMI 28.93 What to do next Scheduled Follow-Up Appointments Sunday. 2023 3:15 PM EST With: Darby Hamlin MD Where: [facility] Family Medicine [facility] Ambulatory Visit Summary MYRNA SHEN :1940 Visit Date:08/31/2023 Ambulatory Visit Instructions Your Diagnosis Annual visit for general adult medical examination without abnormal findings Stage 3a chronic kidney disease (CKD) Your Care Team Attending Physician - Darby Hamlin MD Primary Care Physician - Darby Hamlin MD This Is Your Medications List Misc Prescription (Test strips) amlodipine (amLODIPine 10 mg Tab) apixaban (Eliquis 5 mg oral tablet) aspirin (aspirin 81 mg Oral EC Tab) atorvastatin (atorvastatin 40 mg Tab) furosemide (furosemide 40 mg Tab) metformin (metformin 500 mg Tab) metoprolol (Metoprolol tartrate 25 mg Tab) Procedures Performed CABG - Coronary artery bypass graft. What to do next Scheduled Follow-Up Appointments Sunday 3:15 PM EST With: Darby Hamlin MD Where: [facility] Ambulatory Visit Summary MYRNA SHEN :1940 Visit Date:08/31/2023 Ambulatory Visit Instructions Your Diagnosis Annual visit for general adult medical examination without abnormal findings Stage 3a chronic kidney disease (CKD) Your Care Team Attending Physician - Darby Hamlin MD Primary Care Physician - Darby Hamlin MD This Is Your Medications List [facility] [place] (Test strips) amlodipine (amLODIPine 10 mg Tab) apixaban (Eliquis 5 mg oral tablet) aspirin (aspirin 81 mg Oral EC Tab) atorvastatin (atorvastatin 40 mg Tab) furosemide (furosemide 40 mg Tab) metformin (metformin 500 mg Tab) metoprolol (Metoprolol tartrate 25 mg Tab) Procedures Performed CABG - Coronary artery bypass graft. What to do next Scheduled Follow-Up Appointments Sunday 3:15 PM EST With: Darby Hamlin MD Where: [facility] BMPon 08-31-2023 Anion gap [Moles/Vol] 10 mmol/L Normal 6-16 [facility] Comment on above: Performed By: #### 7 [id number], [id number], [id number] ####[facility] [address] [place] [address] BUN/Creat Ratio 20 No Units Normal 10-20 [facility] Comment on above: Performed By: #### 7 [id number], [id number], [id number] ####[facility] [address] [place] [address] Calcium [Mass/Vol] 8.9 mg/dL Normal 8.9-11.1 [facility] Comment on above: Performed By: #### 7 [id number], [id number], [id number] ####[facility] [address] [place] [address] Chloride [Moles/Vol] 104 mmol/L Normal 101-111 [facility] Comment on above: Performed By: #### 7 [id number], [id number], [id number] ####[facility] [address] [place] [address] CO2 [Moles/Vol] 29 mmol/L Normal 21-31 [facility] Comment on above: Performed By: #### 7 [id number], [id number], [id number] ####[facility] [address] [place] [address] Creatinine [Mass/Vol] 0.7 mg/dL Normal 0.5-1.3 [facility] Comment on above: Performed By: #### 7 [id number], [id number], [id number] ####[facility] [address] [place] [address] Glucose [Mass/Vol] 87 mg/dL Normal 55-199 [facility] Comment on above: Performed By: #### 7 [id number], [id number], [id number] ####[facility] [address] [place] [address] Potassium [Moles/Vol] 4.0 mmol/L Normal 3.5-5.3 [facility] Comment on above: Performed By: #### 7 [id number], [id number], [id number] ####[facility] [address] [place] [address] Sodium [Moles/Vol] 139 mmol/L Normal 135-145 [facility] Comment on above: Performed By: #### 7 [id number], [id number], [id number] ####[facility] [address] [place] [address] Urea nitrogen [Mass/Vol] 14 mg/dL Normal 5-21 [facility] Comment on above: Performed By: #### 7 [id number], [id number], [id number] ####[facility] [address] [place] [address] CHEMISTRYOrdered By: Tree Jaramillo on 08-31-2023 U Creatinine 32.3 mg/dL Invalid Interpretation Code Remisol Chem U Prot/Creat Ratio NOT CALCULATED Invalid Interpretation Code 0.00 - 200.00 Remisol Chem Ur Total Protein mg/dL Invalid Interpretation Code Remisol Chem CHEMISTRYOrdered By: SYSTEM SYSTEM on 08-31-2023 U Microalb microgram/mL Normal 0.0 - 19.0 mcg/mL Remisol Chem Anion gap [Moles/Vol] 10 mmol/L Normal 6 - 16 mEq/L Remisol Chem Calcium [Mass/Vol] 8.9 mg/dL Normal 8.9 - 11.1 mg/dL Remisol Chem Chloride [Moles/Vol] 104 mmol/L Normal 101 - 111 mmol/L Remisol Chem CO2 [Moles/Vol] 29 mmol/L Normal 21 - 31 mmol/L Remis ol Chem Creatinine [Mass/Vol] 0.7 mg/dL Normal 0.5 - 1.3 mg/dL Remisol Chem eGFR 87 mL/min/1.73 m2 Normal >=59mL/min /1.73 m2 Remisol Chem Glucose [Mass/Vol] 87 mg/dL Normal 55 - 199 mg/dL Re misol Chem Potassium [Moles/Vol] 4.0 mmol/L Normal 3.5 - 5.3 mmol/L Remisol Chem Sodium [Moles/Vol] 139 mmol/L Normal 135 - 145 mmol/L Remisol Chem Urea nitrogen [Mass/Vol] 14 mg/dL Normal 5 - 21 mg/dL Remisol Chem Urea nitrogen/Creatinine [Mass ratio] 20 mg/mg Normal 10 - 20 Remisol Chem CHEMISTRYOrdered By: Aida tolentino on 08-31-2023 HbA1c (Bld) [Mass fraction] 5.0 % Normal <=5.9% [facility] ChemAutoSS Family Medicine Office/Clini c Noteon 08-31-2023 Family Medicine Office/Clinic Note Chief Complaint Subsequent Medicare Wellness Visit Review of Systems PHQ Score Initial Depression Screen Score: 1 SCORE Physical Exam Vitals & Measurements HR: 74(Peripheral) BP: 122/60 SpO2: 97% HT: 161 cm HT: 63 in WT: 75 kg WT: 165 lb BMI: 28.93 Assessment/Plan 1. Annual visit for general adult medical examination without abnormal findings (Z00.00: Encounter for general adult medical examination without abnormal findings) The patient was given a customized and personalized print out of all the current AHRQ USPSTF?s recommendations for preventative services and all current CDC recommended immunizations, relevant risk recommendations and the following patient brochures were given. Reviewed Medicare preventative services checklist. CDC-Falls Prevention and home safety screening reviewed. Patient denies any falls in last 12 months, voices no worry about falling, exhibits no problems with sitting, standing, or ambulation. Pt voices understanding with keeping walk way area free of clutter to prevent tripping and/or falling. [place] Advance Directives reviewed, has at home. Patient denies any problems with ADL?s and Instrumental ADL?s. Cognitive screening completed with memory and clock face drawing. Immunization Record reviewed with the patient. Discussed Shingrix vaccine with educational handout and availability. COVID vaccines have been administered, immunization record is up to date. Allergies and medications reviewed and up to date. Patient denies concerns with taking medication as prescribed, reviewed OTC medications with patient, medication list up to date. Blood tests were reviewed: Discussed what tests need to be updated. Labs were ordered, will have completed prior to next PCP visit. Will have labs completed with [facility]. Colonoscopy, never completed, aged out. Mammogram aged out. Reviewed pain symptoms with patient: patient denies pain symptoms Reviewed all outside providers that patient follows. Last visit summary notes available in chart and/or have been requested. Follow up scheduled, 09/19/2023 AWV has been scheduled, TBD 2. Encounter for screening for other disorder (Z13.89: Encounter for screening for other disorder) Medicare provides yearly screening for alcohol and depression concerns. This is completed during our Medicare Wellness visit for those who do not have a current diagnosis of depression or concerns with alcohol use. I spent a total of 17 minutes on this date of service which included preparing to see the patient, face to face patient care, completing clinical documentation, obtaining and/or reviewing separately obtained history, counseling and educating the patient with handouts. Explanations were provided with reviewing questionnaires. AUDIT risk assessment screening completed, risk score 1, with patient denying concerns with use. Completed PHQ-2 risk assessment for depression with risk score 1, negative findings. Patient has been reminded to notify the provider if there would be a change or concerns with symptoms with fear, unable to sleep, worrying too much or feeling down and/or sad with lost of interest with daily activities. Will continue to monitor with screening yearly during Medicare wellness visits. 3. Screening declined by patient (Z53.20: Procedure and treatment not carried out because of patient's decision for unspecified reasons) Reviewed recommended bone mineral density testing for women who are 65 years of age or older. Educational handout for Bone Health reviewed and provided to the patient during today's Medicare Wellness visit. Medicare recommends testing every 5 years if results are WNL and every 2 years if results shows low bone mass. This is a deterioration of bone structure and can increase the risk of a fracture with falls. Eating a well-balanced diet with plenty of Calcium and Vitamin D will help to protect your bones. Daily weight-bearing physical activity can help build strong bones, improve bone amounts, and may reduce the risk of weakening of bones (Osteoporosis) later in life. Dexa scan declined. 4. Type 2 diabetes mellitus without complication, without long-term current use of insulin (E11.9: Type 2 diabetes mellitus without complications) Patient is compliant on current DM medications: Metformin. Monitors BS at home: 106 today, states it is consistent. DM stoplight handout reviewed with s/s to monitor for and report to PCP. Discussed ADA dietary recommendations with low carbs and reduce sugar intake. Patient encouraged to increase daily physical activity, adequate water intake and maintain a healthy weight. Pt follows up with PCP with yearly DM foot checks, due at time of OV. Reminded patient to perform at home foot checks to prevent future complications, wash with soap and water, apply lotion to bilateral feet and in-between toes to prevent dryness and/or cracking. Wear proper fitting shoes and loose fitting socks and/or hose.Patient states she is currently looking for a new eye doctor and (more content not included)... Normal [facility] Comment on above: Result Comment: Elec tronically Signed By: Aurea Perez\.br\Date and Time Signed: 08/31/23 14:19 EST\.br\Electronically Co-Signed By: Yordy James\.br\Date and Time Co-Signed: 08/31/23 13:39 EST [id number] 08-31-2023 HbA1c (Bld) [Mass fraction] 5.0 % Normal <=5.9 [facility] Comment on above: Performed By: #### 7 [id number], [id number], [id number] ####[facility] [address] [place] [address] Patient Educationon 08-31-19 Patient Education Cardiovascular Atrial Fibrillation Atrial fibrillation is a type of irregular or rapid heartbeat (arrhythmia). In atrial fibrillation, the top part of the heart (atria) beats in an irregular pattern. This makes the heart unable to pump blood normally and effectively. The goal of treatment is to prevent blood clots from forming, control your heart rate, or restore your heartbeat to a normal rhythm. If this condition is not treated, it can cause serious problems, such as a weakened heart muscle (cardiomyopathy) or a stroke. What are the causes? This condition is often caused by medical conditions that damage the heart's electrical system. These include: ? High blood pressure (hypertension). This is the most common cause. ? Certain heart problems or conditions, such as heart failure, coronary artery disease, heart valve problems, or heart surgery. ? Diabetes. ? Overactive thyroid (hyperthyroidism). ? Obesity. ? Chronic kidney disease. In some cases, the cause of this condition is not known. What increases the risk? This condition is more likely to develop in: ? Older people. ? People who smoke. ? Athletes who do endurance exercise. ? People who have a family history of atrial fibrillation. ? Men. ? People who use drugs. ? People who drink a lot of alcohol. ? People who have lung conditions, such as emphysema, pneumonia, or COPD. ? People who have obstructive sleep apnea. What are the signs or symptoms? Symptoms of this condition include: ? A feeling that your heart is racing or beating irregularly. ? Discomfort or pain in your chest. ? Shortness of breath. ? Sudden light-headedness or weakness. ? Tiring easily during exercise or activity. ? Fatigue. ? Syncope (fainting). ? Sweating. In some cases, there are no symptoms. How is this diagnosed? Your health care provider may detect atrial fibrillation when taking your pulse. If detected, this condition may be diagnosed with: ? An electrocardiogram (ECG) to check electrical signals of the heart. ? An ambulatory media monitor to record your heart's activity for a few days. ? A transthoracic echocardiogram (TTE) to create pictures of your heart. ? A transesophageal echocardiogram (ANNA) to create even closer pictures of your heart. ? A stress test to check your blood supply while you exercise. ? Imaging tests, such as a CT scan or chest X-ray. ? Blood tests. How is this treated? Treatment depends on underlying conditions and how you feel when you experience atrial fibrillation. This condition may be treated with: ? Medicines to prevent blood clots or to treat heart rate or heart rhythm problems. ? Electrical cardioversion to reset the heart's rhythm. ? A pacemaker to correct abnormal heart rhythm. ? Ablation to remove the heart tissue that sends abnormal signals. ? Left atrial appendage closure to seal the area where blood clots can form. In some cases, underlying conditions will be treated. Follow these instructions at home: Medicines ? Take over-the counter and prescription medicines only as told by your health care provider. ? Do not take any new medicines without talking to your health care provider. ? If you are taking blood thinners: ? Talk with your health care provider before you take any medicines that contain aspirin or NSAIDs, such as ibuprofen. These medicines increase your risk for dangerous bleeding. ? Take your medicine exactly as told, at the same time every day. ? Avoid activities that could cause injury or bruising, and follow instructions about how to prevent falls. ? Wear a medical alert bracelet or carry a card that lists what medicines you take. Lifestyle ? Do not use any products that contain nicotine or tobacco, such as cigarettes, e-cigarettes, and chewing tobacco. If you need help quitting, ask your health care provider. ? Eat heart-healthy foods. Talk with a dietitian to make an eating plan that is right for you. ? Exercise regularly as told by your health care provider. ? Do not drink alcohol. ? Lose weight if you are overweight. ? Do not use drugs, including cannabis. General instructions ? If you have obstructive sleep apnea, manage your condition as told by your health care provider. ? Do not use diet pills unless your health care provider approves. Diet pills can make heart problems worse. ? Keep all follow-up visits as told by your health care provider. This is important. Contact a health care provider if you: ? Notice a change in the rate, rhythm, or strength of your heartbeat. ? Are taking a blood thinner and you notice more bruising. ? Tire more easily when you exercise or do heavy work. ? Have a sudden change in weight. Get help right away if you have: ? Chest pain, abdominal pain, sweating, or weakness. ? Trouble breathing. (more content not included)... Normal [facility] Screenson 08-31-2023 Screens [id number] F Normal [facility] U Microalbon 08-31-2023 U Microalb <2.0 Normal 0.0-19.0 [facility] Comment on above: Performed By: #### 1 [id number], [id number] ####[address] [place] [address] U Protein/Creat Ratioon 08-16 U Creatinine 32.3 mg/dL Invalid Interpretation Code [facility] Comment on above: Performed By: #### 1 [id number], [id number] ####[address] [address] U Prot/Creat Ratio NOT CALCULATED Invalid Interpretation Code .00-200.00 [facility] Comment on above: Performed By: #### 1 [id number], [id number] ####[address] [place] [address] Ur Total Protein <6.0 Invalid Interpretation Code [facility] Comment on above: Performed By: #### 1 [id number], [id number] ####[address] [place] [address] eGFRon 08-31-2023 eGFR 87 mL/min/1.73 m2 Normal >=59 [facility] Comment on above: Order Comment: Order added by Discern Expert. Performed By: #### 7 [id number] ####[facility] [address] [place] [address] Office Visiton 04-27-2023 Follow-up visit [id number] Angélica Shen 1940 F Date Provider Department [place] 04/27/2023 [facility] Family History Problem Relation Age of Onset Coronary artery disease Mother Diabetes Mother Alcohol abuse Father Family Status - Relation Status Age at Mother Father Level of Service:85643 [place] OFFICE/OUTPATIENT ESTABLISHED LOW MDM 20-29 MIN Reason for Visit and Comments: Follow-up [489851] [facility] Office Visiton 03-02-2023 Follow-up visit [id number] Angélica Shen Brad 1940 F Date Provider Department [facility] Family History Problem Relation Age of Onset Coronary artery disease Mother Diabetes Mother Alcohol abuse Father Family Status - Relation Status Age at Mother Father Level of Service:80405 [place] OFFICE/OUTPATIENT ESTABLISHED MOD MDM 30-39 MIN Reason for Visit and Comments: Follow-up [[id number]] [facility] Family Medicine Office/Clini c Noteon 01-01-2023 Family Medicine Office/Clinic Note Chief Complaint follow up diabetes HPI Staff 2 week follow up diabetes Patient is here for follow up on Diabetes. How often are you checking your blood sugars? 1 times per day What are your average readings? 104 Do you have any of the following symptoms? Foot Exam: none Eye Exam: May 2021 Microalbumin: none Last A1C: .8% 12/12/22 Last Chronic Labs: [facility] 12/19/22 questions/concerns: none doing 80 mg of lasix ordered as 40 but you told her to take 2 helped with the swelling History of Present Illness Myrna Shen is a 82-year-old female who presents today for a 3-month follow-up. Myrna Shen states that she is still taking 40 mg of Lasix twice a day. She notes that she can not get her foot to go down. It was really bad last week. She was wearing the stockings all the time until her knee got like a balloon. She has had an echocardiogram done. The patient currently follows with Dr. Lexi Purcell. She has an EKG scheduled for next 01/02/2023. She reports she went out of atrial fibrillation. She is still having water blisters. They will fire up and itch so bad , located all over. It has decreased in severity. After her heart surgery, she has not had hair anywhere. She has been experiencing hair loss. She had COVID-19 in 09/2022. She has seen 2 different dermatologists, unknown name, and had multiple biopsies performed with no diagnosis. She denies increase in severity after wes COVID-19. She was on steroids following her illness and notes that it goes away completely when she is on steroids or it goes dormant. It is not currently as bad as it was before. She describes it as chicken pox prior and big red welts with pus in them. Getting the sugar gone has been beneficial. Exposure to the sun worsens her symptoms and it will start itching. She can not use soap. She is very susceptible to virus. The first roaster helper she was evaluated by suspected bug bites from bugs in her house. She was going to her roaster helper for over a year. She states that she experimented with at least 12 to 20 different kinds of lotions, potions, oils, medicines, and biopsies. She states that nothing never showed. She states that one biopsy said that she may be allergic to one of her medications. They discontinued her spironolactone. Myrna endorses benefit with steroids. She has stopped going to the roaster helper. Review of Systems PHQ Score Initial Depression Screen Score: 0 Physical Exam Vitals & Measurements HR: 66(Peripheral) RR: 16 BP: 140/74 SpO2: 95% HT: 64 in HT: 162 cm WT: 82.1 kg WT: 180.62 lb BMI: 31.28 General: alert, no acute distress Cardiovascular: regular rate and rhythm, normal peripheral perfusion Respiratory: Lungs CTA, respirations non labored Extremities: no deformity, no trauma Neurological: oriented x 4, LOC appropriate for age, CN II-XII intact, motor strength equal & normal bilaterally, speech normal Skin: Maculopapular rash noted on the patient's legs and arms. Assessment/Plan 1. Uncontrolled type 2 diabetes mellitus with hyperglycemia (E11.65: Type 2 diabetes mellitus with hyperglycemia) Patient's lab work shows that she is well controlled at this time. A1c of 6.8 as of 12/12/2022. No other concerns at this time. 2. Stage 3a chronic kidney disease (CKD) (N18.31: Chronic kidney disease, stage 3a) Patient's creatinine is actually significantly improved despite increasing the patient's Lasix from 40 mg to 80 mg. We will continue to monitor this. 3. Paroxysmal atrial fibrillation (I48.0: Paroxysmal atrial fibrillation) Patient is not in atrial fibrillation today. We will call cardiology for echo results and we will move forward with them knowing about the change in the Lasix. 4. BMI 31.0-31.9,adult (Z68.31: Body mass index [BMI] 31.0-31.9, adult) BMI education given. 5. Class 1 obesity due to excess calories in adult (E66.09: Other obesity due to excess calories) As above. Portions of this record may have been created with voice recognition artificial intelligence software, specifically [employer] and or [employer]. Substitutions may have occurred due to the inherent limitations of voice recognition and artificial intelligence software. ATTESTATION: Documentation services were performed after patient or guardian consented to allow [employer] to record this visit. LETTY organizational development specialist and provider reviewed before signing. LETTY: Kyler Donnell Entered into N-Sided by: Shaista Calix Follow-up No qualifying data available Problem List/Past Medical History Ongoing Atherosclerosis of [place] coronary artery of [place] heart with angina pectoris Hx of melanoma of skin Hypercholesterolemia Neurodermatitis Paroxysmal atrial fibrillation Spinal stenosis in cervical region Stage 3a chronic kidney disease (CKD) Stasis dermatitis Uncontrolled type 2 diabetes mellitus with hyperglycemia Historical No qualifying data Pr (more content not included)... Normal [facility] Comment on above: Result Comment: Elec tronically Signed By: Darby Hamlin MD\.br\Date and Time Signed: 01/01/23 12:53 EDT\.br\Electronically Co-Signed By: Shaista Calix.br\Date and Time Co-Signed: 12/27/22 19:11 EDT Echocardiographyon 3 Echocardiography [id number]: 127 [facility] Ambulatory Visit Summaryon 0 12-27-2022 Ambulatory Visit Summary MYRNA SHEN :1940 Visit Date:12/27/2022 Ambulatory Visit Instructions Your Diagnosis Uncontrolled type 2 diabetes mellitus with hyperglycemia Stage 3a chronic kidney disease (CKD) Paroxysmal atrial fibrillation BMI 31.0-31.9,adult Class 1 obesity due to excess calories in adult Your Care Team Attending Physician - Darby Hamlin MD Primary Care Physician - Darby Hamlin MD This Is Your Medications List furosemide (furosemide 40 mg Tab) Contact prescribing physician if questions or concerns Misc Prescription (Test strips) amiodarone (amiodarone 200 mg Tab) amlodipine (amLODIPine 10 mg Tab) apixaban (Eliquis 5 mg oral tablet) aspirin (aspirin 81 mg Oral EC Tab) atorvastatin (atorvastatin 40 mg Tab) fluocinolone topical (fluocinolone topical 0.01% oil) metformin (metformin 500 mg Tab) metoprolol (Metoprolol tartrate 25 mg Tab) potassium chloride (Potassium Chloride (Wkk-Xboa-Ade M20) 20 mEq oral tablet, extended release) Procedures Performed CABG - Coronary artery bypass graft. Discharge Vitals Heart Rate (Peripheral) 66 Respiratory Rate 16 Blood Pressure 140/74 Height 162 cm Height 64 in Weight 82.1 kg Weight 180.62 lb BMI 31.28 What to do next Scheduled Follow-Up Appointments Sunday 1:20 PM EDT With: Darby Hamlin MD Where: [id number] \.br\ Medications\.br\ What How Much When Instructions\.br \ Changed furosemide (furosemide 40 mg Tab) 1 Tablets By Mouth 2 times a day Pickup at [facility] [id number]\.br\ Unchanged amiodarone (amiodarone 200 mg Tab) 1 Tablets By Mouth Every day Contact prescribing physician if questions or concerns \.br\ Unchanged amlodipine (amLODIPine 10 mg Tab) 1 Tablets By Mouth Every day Contact prescribing physician if questions or concerns \.br\ Unchanged apixaban (Eliquis 5 mg oral tablet) 1 Tablets By Mouth 2 times a day Contact prescribing physician if questions or concerns \.br\ Unchanged aspirin (aspirin 81 mg Oral EC Tab) 1 Tablets By Mouth Every day Contact prescribing physician if questions or concerns \.br\ Unchanged atorvastatin (atorvastatin 40 mg Tab) 1 Tablets By Mouth Every day Contact prescribing physician if questions or concerns \.br\ Unchanged fluocinolone topical (fluocinolone topical 0.01% oil) Contact prescribing physician if questions or concerns \.br\ Unchanged metformin (metformin 500 mg Tab) 1 Tablets By Mouth 2 times a day Contact prescribing physician if questions or concerns \.br\ Unchanged metoprolol (Metoprolol tartrate 25 mg Tab) 1 Tablets By Mouth 2 times a day Contact prescribing physician if questions or concerns \.br\ Unchanged Misc Prescription (Test strips) See instructions check Blood sugar daily and prn E11.9 Contact prescribing physician if questions or concerns \.br\ Unchanged potassium chloride (Potassium Chloride (Zqq-Pnvp-Els M20) 20 mEq oral tablet, extended release) 1 Tablets By Mouth once daily or twice daily when taking an additional furosemide Contact prescribing physician if questions or concerns \.br\ Pharmacy Information\.br\ [facility] [id number]: [address] [place], [place] [id number] [phone]\.br\ Allergies\.br\ spironolactone (Rash)\.br\ Vitamin C (Unknown)\.br\ Problems\.br\ Ongoing - Any problem that you are currently receiving treatment for.\.br\ Atherosclerosis of [place] coronary artery of [place] heart with angina pectoris\.br\ Hx of melanoma of skin\.br\ Hypercholesterol emia\.br\ Neurodermatitis\ .br\ Paroxysmal atrial fibrillation\.br \ Spinal stenosis in cervical region\.br\ Stage 3a chronic kidney disease (CKD)\.br\ Stasis dermatitis\.br\ Uncontrolled type 2 diabetes mellitus with hyperglycemia\.b r\ \.br\ [facility] BMPon 12-19-2022 Anion gap [Moles/Vol] 12 mmol/L Normal 6-16 [facility] Comment on above: Performed By: #### 2 [id number], [id number] ####[facility] [address] [place] [address] Calcium [Mass/Vol] 9.1 mg/dL Normal 8.9-11.1 [facility] Comment on above: Performed By: #### 2 [id number], [id number] ####[facility] [address] [place] [address] Chloride [Moles/Vol] 106 mmol/L Normal 101-111 [facility] Comment on above: Performed By: #### 2 [id number], [id number] ####[facility] [address] [place] [address] CO2 [Moles/Vol] 25 mmol/L Normal 21-31 [facility] Comment on above: Performed By: #### 2 [id number], [id number] ####[facility] [address] [place] [address] Creatinine [Mass/Vol] 0.8 mg/dL Normal 0.5-1.3 [facility] Comment on above: Performed By: #### 2 [id number], [id number] ####[facility] [address] [place] [address] Glucose [Mass/Vol] 162 mg/dL Normal 55-199 [facility] Comment on above: Result Comment: If t his glucose result represents a fasting glucose, interpretation should refer to the following reference range: 55-99 mg/dL Performed By: #### 2 [id number], [id number] ####[facility] [address] [place] [address] Potassium [Moles/Vol] 4.3 mmol/L Normal 3.5-5.3 [facility] Comment on above: Performed By: #### 2 [id number], [id number] ####[facility] [address] [place] [address] Sodium [Moles/Vol] 139 mmol/L Normal 135-145 [facility] Comment on above: Performed By: #### 2 [id number], [id number] ####[facility] [address] [place] [address] Urea nitrogen [Mass/Vol] 19 mg/dL Normal 5-21 [facility] Comment on above: Performed By: #### 2 [id number], [id number] ####[facility] [address] [place] [address] Urea nitrogen/Creatinine [Mass ratio] 24 No Units High 10-20 [facility] Comment on above: Performed By: #### 2 [id number], [id number] ####[facility] [address] [place] [address] CHEMISTRYOrdered By: SYSTEM SYSTEM on 12-19-2022 Anion gap [Moles/Vol] 12 mmol/L Normal 6 - 16 mEq/L FT Remisol Calcium [Mass/Vol] 9.1 mg/dL Normal 8.9 - 11.1 mg/dL FT Remisol Chloride [Moles/Vol] 106 mmol/L Normal 101 - 111 mmol/L FT Remisol CO2 [Moles/Vol] 25 mmol/L Normal 21 - 31 mmol/L [facility] Remisol Creatinine [Mass/Vol] 0.8 mg/dL Normal 0.5 - 1.3 mg/dL [facility] Remisol GFR/1.73 sq M.predicted among non-blacks MDRD (S/P/Bld) [Vol rate/Area] 74 mL/min/1.73 m2 Normal >=59mL/min/1.73 m2 [facility] Chem S Glucose [Mass/Vol] 162 mg/dL Normal 55 - 199 mg/dL [facility] Remisol Potassium [Moles/Vol] 4.3 mmol/L Normal 3.5 - 5.3 mmol/L [facility] Remisol Sodium [Moles/Vol] 139 mmol/L Normal 135 - 145 mmol/L [facility] Remisol Urea nitrogen [Mass/Vol] 19 mg/dL Normal 5 - 21 mg/dL [facility] Remisol Urea nitrogen/Creatinine [Mass ratio] 24 mg/mg High 10 - 20 [facility] Remisol Nurse Consultation Noteon Nurse Consultation Note Reason for Visit Here for lab draw Assessment/Plan Stage 3a chronic kidney disease (CKD) (N18.31: Chronic kidney disease, stage 3a) Medications amiodarone 200 mg Tab, 200 mg= 1 tab(s), Oral, Daily amLODIPine 10 mg Tab, 10 mg= 1 tab(s), Oral, Daily aspirin 81 mg Oral EC Tab, 81 mg= 1 tab(s), Oral, Daily atorvastatin 40 mg Tab, 40 mg= 1 tab(s), Oral, Daily Eliquis 5 mg oral tablet, 5 mg= 1 tab(s), Oral, BID fluocinolone topical 0.01% oil furosemide 40 mg Tab, 40 mg= 1 tab(s), Oral, Daily, Still taking, not as prescribed: Pt is currently taking 2 tablets daily for additional edema metformin 500 mg Tab, 500 mg= 1 tab(s), Oral, BID Metoprolol tartrate 25 mg Tab, 25 mg= 1 tab(s), Oral, BID Potassium Chloride (Xfn-Sfbu-Tnp M20) 20 mEq oral tablet, extended release, 20 mEq= 1 tab(s), Oral Allergies spironolactone (Rash) Vitamin C (Unknown) Immunizations Vaccine Date Status SARS-CoV-2 (COVID-19) mRNA-127 vaccine 09/17/2020 Recorded SARS-CoV-2 (COVID-19) mRNA-1273 vaccine 08/20/2020 Recorded Normal [facility] eGFRon 12-19-2022 GFR/1.73 sq M.predicted among non-blacks MDRD (S/P/Bld) [Vol rate/Area] 74 mL/min/1.73 m2 Normal >=59 [facility] Comment on above: Order Comment: Order added by Discern Expert. Result Comment: Hull Sorter radha kidney disease could be indicated at eGFR's of less than 60 mL/min/1.73m2. Kidney failure is indicated at less than 15 mL/min/1.73m2. Performed By: #### 2 [id number], [id number] ####[facility] [address] [place] [address] Transfer Ino 12-14-2022 Transfer In [id number]: 127 Normal [facility] Family Medicine Office/Clini c Noteon 12-13-2022 Family Medicine Office/Clinic Note HPI Staff Myrna is an 82 year old female being seen for a 3 week follow up. She was recently dx of DM2 and started on Metformin 500mg BID. Pt's previous glucose level was 526 on 11/06/22. Checking glucose levels at home: yes Rangin-[id number] History of Present Illness Myrna Shen is a 82-year-old female who presents today for evaluation of a rash. She states prednisone is the only thing that improves her rash. She is no longer following-up with dermatology. She describes her rash feeling like sandpaper . She states she decreased her prednisone from 20 mg to 5 mg when her rash appeared. She reports that her rash developed 1 week after she had COVID-19. She had an appointment with a image processing engineer in the past, but she canceled due to her atrial fibrillation and elevated blood sugar. She has also been experiencing lower extremity edema. She is currently taking Lasix 40 mg in the morning and 40 mg in the afternoon daily. She has tried wearing support hose but stopped due to the pain it caused in her legs. She states when she experiences edema in her arms they start to itch. She does not drink a lot of water, but she drinks a lot of tea, Ensure and milk. She states her blood sugar levels have been 100 mg/dL. She has an appointment with her printed circuit boards solder leveler Dr. Zapata on 01/02/2023 for A-fib. Review of Systems PHQ Score Initial Depression Screen Score: 0 Physical Exam Vitals & Measurements HR: 110(Peripheral) BP: 128/88 SpO2: 94% HT: 64 in HT: 162 cm WT: 81.6 kg WT: 179.52 lb BMI: 31.09 General: alert, no acute distress ENMT: oral mucosa moist, no pharyngeal erythema or exudate Cardiovascular: Atrial fibrillation, 3+ pitting edema. Respiratory: Lungs CTA, respirations non labored Extremities: no deformity, no trauma. Diffuse slight erythema to bilateral extremities. Patient does have some scaling and a shine to the skin with some areas of what looks to be eczema on her legs. Neurological: oriented x 4, LOC appropriate for age, CN II-XII intact, motor strength equal & normal bilaterally, speech normal Assessment/Plan We will see the patient back in 2 weeks after the use of the steroids. 1. Uncontrolled type 2 diabetes mellitus with hyperglycemia (E11.65: Type 2 diabetes mellitus with hyperglycemia) Patient states that she is now in control. This may be secondary to the amount of steroids the patient was getting for these rashes that she was being seen for before ct. At this time, we will recheck potassium and an A1c. 2. Hypercholesterolemia (E78.00: Pure hypercholesterolemia, unspecified) Patient is on a statin. We will continue to monitor. 3. Stasis dermatitis (I87.2: Venous insufficiency (chronic) (peripheral)) At this time, we will go ahead and have the patient continue on the Lasix. We may increase that and if patient continues to have worsening issues with the stasis dermatitis, patient needs to follow up with cardiology about maybe switching to Bumex. Precautions discussed in detail when to follow-up also discussed. 4. BMI 31.0-31.9,adult (Z68.31: Body mass index [BMI] 31.0-31.9, adult) ATTESTATION: Documentation services were performed after patient or guardian consented to allow Malachi Hassan to record this visit. LETTY organizational development specialist and provider reviewed before signing. LETTY: Norris Osborne Follow-up No qualifying data available Patient Education Blood Glucose Monitoring, Adult Problem List/Past Medical History Ongoing Atherosclerosis of [place] coronary artery of [place] heart with angina pectoris Hx of melanoma of skin Hypercholesterolemia Neurodermatitis Paroxysmal atrial fibrillation Spinal stenosis in cervical region Stasis dermatitis Uncontrolled type 2 diabetes mellitus with hyperglycemia Historical No qualifying data Procedure/Surgical History CABG - Coronary artery bypass graft. Medications amiodarone 200 mg Tab, 200 mg= 1 tab(s), Oral, Daily amLODIPine 10 mg Tab, 10 mg= 1 tab(s), Oral, Daily aspirin 81 mg Oral EC Tab, 81 mg= 1 tab(s), Oral, Daily atorvastatin 40 mg Tab, 40 mg= 1 tab(s), Oral, Daily Eliquis 5 mg oral tablet, 5 mg= 1 tab(s), Oral, BID fluocinolone topical 0.01% oil furosemide 40 mg Tab, 40 mg= 1 tab(s), Oral, Daily, Still taking, not as prescribed: Pt is currently taking 2 tablets daily for additional edema metformin 500 mg Tab, 500 mg= 1 tab(s), Oral, BID Metoprolol tartrate 25 mg Tab, 25 mg= 1 tab(s), Oral, BID Potassium Chloride (Dik-Kocn-Gir M20) 20 mEq oral tablet, extended release, 20 mEq= 1 tab(s), Oral Allergies spironolactone (Rash) Vitamin C (Unknown) Social History Substance Abuse - Denies Substance Abuse, 12/12/2022 Household substance abuse concerns: No., 12/12/2022 Tobacco - Denies Tobacco Use, 12/12/2022 Never (less than 100 in lifetime) Tobacco Use:. Never Smokeless Tobacco Use:. Household tobacco concerns: No., 12/12/2022 Family History Family history is negative Immunizations Vaccine Date Status SARS-C (more content not included)... Normal [facility] Comment on above: Result Comment: Elec tronically Signed By: Darby Hamlin MD\.br\Date and Time Signed: 12/13/22 15:45 EDT\.br\Electronically Co-Signed By: Norris Osborne\.br\Date and Time Co-Signed: 12/12/22 16:38 EDT Physician Referralon 023 Physician Referral [id number] [id number] :127 Normal [facility] CHEMISTRYOrdered By: SYSTEM SYSTEM on 12-12-2022 Albumin [Mass/Vol] 4.3 g/dL Normal 3.3 - 5.0 gm/dL [facility] Albumin/Globulin [Mass ratio] 1.4 {ratio} Normal 1.1 - 2.2 [facility] ALP [Catalytic activity/Vol] 74 [iU]/d Normal 21 - 98 Int._Unit/L [facility] ALT No additional P-5'-P [Catalytic activity/Vol] 22 [iU]/d Normal 6 - 46 Int._Unit/L [facility] Anion gap [Moles/Vol] 12 mmol/L Normal 6 - 16 mEq/L [facility] AST [Catalytic activity/Vol] 20 [iU]/d Normal 5 - 43 Int._Unit/L [facility] Bilirubin [Mass/Vol] 0.9 mg/dL Normal 0.0 - 1.1 mg/dL [facility] Calcium [Mass/Vol] 9.4 mg/dL Normal 8.9 - 11.1 mg/dL [facility] Chloride [Moles/Vol] 104 mmol/L Normal 101 - 111 mmol/L [facility] CO2 [Moles/Vol] 27 mmol/L Normal 21 - 31 mmol/L [facility] Creatinine [Mass/Vol] 1.2 mg/dL Normal 0.5 - 1.3 mg/dL [facility] GFR/1.73 sq M.predicted among non-blacks MDRD (S/P/Bld) [Vol rate/Area] 46 mL/min/1.73 m2 Low >=59mL/min/1.73 m2 FT [facility] S Globulin (S) [Mass/Vol] 3.0 g/dL Normal 1.4 - 4.0 gm/dL [facility] Remisol Glucose [Mass/Vol] 131 mg/dL Normal 55 - 199 mg/dL [facility] Potassium [Moles/Vol] 4.4 mmol/L Normal 3.5 - 5.3 mmol/L [facility] Remisol Protein [Mass/Vol] 7.3 g/dL Normal 6.0 - 7.8 gm/dL [facility] Sodium [Moles/Vol] 139 mmol/L Normal 135 - 145 mmol/L [facility] Remisol Urea nitrogen [Mass/Vol] 18 mg/dL Normal 5 - 21 mg/dL [facility] Remisol Urea nitrogen/Creatinine [Mass ratio] 15 mg/mg Normal 10 - 20 [facility] Remisol CHEMISTRYOrdered By: Andreia Maria on 12-12-2022 HbA1c (Bld) [Mass fraction] 6.8 % High <=5.9% [facility] ChemAutoSS CMPon 12-12-2022 Anion gap [Moles/Vol] 12 mmol/L Normal 6-16 [facility] Comment on above: Performed By: #### 2 [id number], [id number], [id number] ####[facility] [address] [place] [address] Calcium [Mass/Vol] 9.4 mg/dL Normal 8.9-11.1 [facility] Comment on above: Performed By: #### 2 913001, [id number], [id number] ####[facility] [address] [place] [address] Chloride [Moles/Vol] 104 mmol/L Normal 101-111 [facility] Comment on above: Performed By: #### 2 500536, [id number], [id number] ####[facility] [address] [place] [address] CO2 [Moles/Vol] 27 mmol/L Normal 21-31 [facility] Comment on above: Performed By: #### 2 847554, [id number], [id number] ####[facility] [address] [place] [address] Glucose [Mass/Vol] 131 mg/dL Normal 55-199 [facility] Comment on above: Result Comment: If t his glucose result represents a fasting glucose, interpretation should refer to the following reference range: 55-99 mg/dL Performed By: #### 2 [id number], [id number], [id number] ####[facility] [address] [place] [address] Potassium [Moles/Vol] 4.4 mmol/L Normal 3.5-5.3 [facility] Comment on above: Performed By: #### 2 125565, [id number], [id number] ####[address] [address] Sodium [Moles/Vol] 139 mmol/L Normal 135-145 [facility] Comment on above: Performed By: #### 2 969130, [id number], [id number] ####[facility] [address] [place] [address] Albumin [Mass/Vol] 4.3 g/dL Normal 3.3-5.0 [facility] Comment on above: Performed By: #### 2 849991, [id number], [id number] ####[address] [place] [address] Albumin/Globulin (S) [Mass conc ratio] 1.4 Normal 1.1-2.2 [facility] Comment on above: Performed By: #### 2 141307, [id number], [id number] ####[facility] [address] [place] [address] ALP [Catalytic activity/Vol] 74 Int._Unit/L Normal 21-98 [facility] Comment on above: Performed By: #### 2 413823, [id number], [id number] ####[facility] [address] [place] [address] ALT No additional P-5'-P [Catalytic activity/Vol] 22 Int._Unit/L Normal 6-46 [facility] Comment on above: Performed By: #### 2 495226, [id number], [id number] ####[facility] [address] [place] [address] AST [Catalytic activity/Vol] 20 Int._Unit/L Normal 5-43 [facility] Comment on above: Performed By: #### 2 937819, [id number], [id number] ####[facility] [address] [place] [address] Bilirubin [Mass/Vol] 0.9 mg/dL Normal 0.0-1.1 [facility] Comment on above: Performed By: #### 2 510223, [id number], [id number] ####[facility] [address] [place] [address] Creatinine [Mass/Vol] 1.2 mg/dL Normal 0.5-1.3 [facility] Comment on above: Performed By: #### 2 272409, [id number], [id number] ####[facility] [address] [place] [address] Globulin (S) [Mass/Vol] 3.0 g/dL Normal 1.4-4.0 [facility] Comment on above: Performed By: #### 2 312588, [id number], [id number] ####[facility] [address] [place] [address] Protein [Mass/Vol] 7.3 g/dL Normal 6.0-7.8 [facility] Comment on above: Performed By: #### 2 372212, [id number], [id number] ####[facility] [address] [place] [address] Urea nitrogen [Mass/Vol] 18 mg/dL Normal 5-21 [facility] Comment on above: Performed By: #### 2 692218, [id number], [id number] ####[facility] [address] [place] [address] Urea nitrogen/Creatinine [Mass ratio] 15 No Units Normal 10-20 [facility] Comment on above: Performed By: #### 2 097521, [id number], [id number] ####[facility] [address] [place] [address] UvsB4qbw 12-12-2022 HbA1c (Bld) [Mass fraction] 6.8 % High <=5.9 [facility] Comment on above: Performed By: #### 2 882768, [id number], [id number] ####[facility] [address] [place] [address] Patient Educationon 12-13-19 23 Patient Education Endocrinology Blood Glucose Monitoring, Adult Monitoring your blood sugar (glucose) is an important part of managing your diabetes. Blood glucose monitoring involves checking your blood glucose as often as directed and keeping a log or record of your results over time. Checking your blood glucose regularly and keeping a blood glucose log can: ? Help you and your health care provider adjust your diabetes management plan as needed, including your medicines or insulin. ? Help you understand how food, exercise, illnesses, and medicines affect your blood glucose. ? Let you know what your blood glucose is at any time. You can quickly find out if you have low blood glucose (hypoglycemia) or high blood glucose (hyperglycemia). Your health care provider will set individualized treatment goals for you. Your goals will be based on your age, other medical conditions you have, and how you respond to diabetes treatment. Generally, the goal of treatment is to maintain the following blood glucose levels: ? Before meals (preprandial): 80?130 mg/dL (4.4?7.2 mmol/L). ? After meals (postprandial): below 180 mg/dL (10 mmol/L). ? A1C level: less than 7%. Supplies needed: ? Blood glucose meter. ? Test strips for your meter. Each meter has its own strips. You must use the strips that came with your meter. ? A needle to prick your finger (lancet). Do not use a lancet more than one time. ? A device that holds the lancet (lancing device). ? A journal or log book to write down your results. How to check your blood glucose Checking your blood glucose 1. Wash your hands for at least 20 seconds with soap and water. 2. Prick the side of your finger (not the tip) with the lancet. Do not use the same finger consecutively. 3. Gently rub the finger until a small drop of blood appears. 4. Follow instructions that come with your meter for inserting the test strip, applying blood to the strip, and using your blood glucose meter. 5. Write down your result and any notes in your log. Using alternative sites Some meters allow you to use areas of your body other than your finger (alternative sites) to test your blood. The most common alternative sites are the forearm, the thigh, and the palm of your hand. Alternative sites may not be as accurate as the fingers because blood flow is slower in those areas. This means that the result you get may be delayed, and it may be different from the result that you would get from your finger. Use the finger only, and do not use alternative sites, if: ? You think you have hypoglycemia. ? You sometimes do not know that your blood glucose is getting low (hypoglycemia unawareness). General tips and recommendations Blood glucose log ? Every time you check your blood glucose, write down your result. Also write down any notes about things that may be affecting your blood glucose, such as your diet and exercise for the day. This information can help you and your health care provider: ? Look for patterns in your blood glucose over time. ? Adjust your diabetes management plan as needed. ? Check if your meter allows you to download your records to a computer or if there is an timoteo for the meter. Most glucose meters store a record of glucose readings in the meter. If you have type 1 diabetes: ? Check your blood glucose 4 or more times a day if you are on intensive insulin therapy with multiple daily injections (MDI) or if you are using an insulin pump. Check your blood glucose: ? Before every meal and snack. ? Before bedtime. ? Also check your blood glucose: ? If you have symptoms of hypoglycemia. ? After treating low blood glucose. ? Before doing activities that create a risk for injury, like driving or using machinery. ? Before and after exercise. ? Two hours after a meal. ? Occasionally between 2:00 a.m. and 3:00 a.m., as directed. ? You may need to check your blood glucose more often, 6?10 times per day, if: ? You have diabetes that is not well controlled. ? You are ill. ? You have a history of severe hypoglycemia. ? You have hypoglycemia unawareness. If you have type 2 diabetes: ? Check your blood glucose 2 or more times a day if you take insulin or other diabetes medicines. ? Check your blood glucose 4 or more times a day if you are on intensive insulin therapy. Occasionally, you may also need to check your glucose between 2:00 a.m. and 3:00 a.m., as directed. ? Also check your blood glucose: ? Before and after exercise. ? Before doing activities that create a risk for injury, like driving or using machinery. ? You may need to check your blood glucose more often if: ? Your medicine is being adjusted. ? Your diabetes is not well controlled. ? You are ill. General tips ? Make sure you always have your supplies with you. ? After you use a few boxes of test strips, adjust (calibrate) your blood glucose meter by following in (more content not included)... Normal [facility] eGFRon 12-12-2022 GFR/1.73 sq M.predicted among non-blacks MDRD (S/P/Bld) [Vol rate/Area] 46 mL/min/1.73 m2 Low >=59 [facility] Comment on above: Order Comment: Order added by Discern Expert. Result Comment: [place] Sorter radha kidney disease could be indicated at eGFR's of less than 60 mL/min/1.73m2. Kidney failure is indicated at less than 15 mL/min/1.73m2. Performed By: #### 2 [id number], [id number], [id number] ####[facility] [address] [place] [address] Family Medicine Office/Clini c Noteon 11-15-2022 Family Medicine Office/Clinic Note Chief Complaint est care [facility] Staff hospital follow a fib and newly diagnosed DM Health Maintenance: Colonoscopy: aged out Dexa: refuses Mammo: refuses Pap: no longer needs Last Labs: 11/06 covid: UTD History of Present Illness Myrna Shen is an 82-year-old female who presents today for a hospital follow-up. She is accompanied by her daughter, Yuli. Myrna reports that her blood glucose was down to 191mg/dL this morning and 277mg/dL on 11/11/2022. She was blaming it all on her atrial fibrillation because nobody picked up her blood glucose. She had edema in her legs that it would not heal. They did blood test on 09/13/2022 and it did not show anything. Her daughter states that the ER doctor thought she has had diabetes for at least 10 months. Myrna explains that she had COVID-19 and it caused her to develop atrial fibrillation. Her daughter states that she has had numbness in her legs and the inability to heal. When her blood glucose was down to 69 mg/dL in less than 12 hours. She is taking metformin 500 mg 2 times a day. The patient states that she was taken off of spironolactone by her roaster helper because she was allergic to it. She had 3 biopsies done. The first episode was in the fall of 2020, she had some welts. The roaster helper decided that she had bugs in her house. The roaster helper gave her some expensive creams, but nothing was working. The roaster helper gave her some prednisone and it cleared up a little bit. She went back to the roaster helper, because it got worse. She came to see Dr. Redding about it and he thought it was her nerves. He put her on a medication for her nerves, which quit itching, but it did not heal. She decided to switch dermatologists and was prescribed prednisone and some sort of oil and it cleared right up. Myrna does not currently have a roll weigher. She will normally go to [employer]. The patient has a history of cancer. Review of Systems PHQ Score Initial Depression Screen Score: 0 Physical Exam Vitals & Measurements HR: 67(Peripheral) BP: 102/60 SpO2: 95% HT: 64 in HT: 162 cm WT: 77.3 kg WT: 170.06 lb BMI: 29.45 General: alert, no acute distress ENMT: oral mucosa moist Cardiovascular: patient is in atrial fibrillation, rate controlled Respiratory: Lungs CTA, respirations non labored Extremities: no deformity, no trauma, 3+ pitting edema Neurological: oriented x 4, LOC appropriate for age, CN II-XII intact, motor strength equal & normal bilaterally, speech normal Assessment/Plan 1. Paroxysmal atrial fibrillation (I48.0: Paroxysmal atrial fibrillation) At this time, patient needs to follow up with cardiology for further options. Patient is looking at getting a cardioversion done and encouraged the patient to get it done as the patient is having swelling in both extremities. Patient is going to look at getting that taken care of. 2. Atherosclerosis of [place] coronary artery of [place] heart with angina pectoris (I25.119: Atherosclerotic heart disease of [place] coronary artery with unspecified angina pectoris) Again, patient needs to follow up with cardiology. Needs to continue on medication as before. Patient is on aspirin and statin for this. 3. Type 2 diabetes mellitus without complication, without long-term current use of insulin (E11.9: Type 2 diabetes mellitus without complications) This is a new onset. Patient is on metformin 500 mg 2 times a day. There has been an improvement with that. Do not want to adjust medications immediately given that the patient is still getting calibrated to her blood sugars. We will check the patient back in 3 weeks and may adjust the medicine at that time. 4. Hx of melanoma of skin (Z85.820: Personal history of malignant melanoma of skin) Patient continues to see dermatology. 5. Peripheral edema. We will have the patient increase the furosemide from 40 mg to 80 mg for 1 day and patient will follow up and let us know how she is doing with the swelling. 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 Precautions were discussed in detail and when to go to the ER also discussed. ATTESTATION: Documentation services were performed after patient or guardian consented to allow [employer] to record this visit. LETTY organizational development specialist and provider reviewed before signing. LETTY: Leticia Andre. Follow-up No qualifying data available Problem List/Past Medical History Ongoing Atherosclerosis of [place] coronary artery of [place] heart with angina pectoris Hx of melanoma of skin Hypercholesterolemia Neurodermatitis Paroxysmal atrial fibrillation Spinal stenosis in cervical region Historical No qualifying data Procedure/Surgical History CABG - Coronary artery bypass graft. Medications amiodarone 200 mg Tab, 200 mg= 1 tab(s), Oral, Daily amLODIPine 10 mg Tab, 10 mg= 1 tab(s), Oral, Daily aspirin 81 mg Oral EC Tab, 81 mg= 1 tab(s), Oral, Daily atorvastatin 40 mg Tab, 40 mg= 1 tab(s), Oral, Daily Eliqui (more content not included)... Normal [facility] Comment on above: Result Comment: Elec tronically Signed By: Darby Hamlin MD\.br\Date and Time Signed: 11/15/22 11:03 EDT\.br\Electronically Co-Signed By: Leticia Andre.benjamin\Date and Time Co-Signed: 11/14/22 20:40 EDT Ambulatory Visit Summaryon 0 11-14-2022 Ambulatory Visit Summary MYRNA SHEN :1940 Visit Date:11/14/2022 Ambulatory Visit Instructions Your Diagnosis Paroxysmal atrial fibrillation Atherosclerosis of [place] coronary artery of [place] heart with angina pectoris Spinal stenosis in cervical region Type 2 diabetes mellitus without complication, without long-term current use of insulin Your Care Team Attending Physician - Darby Hamlin MD Primary Care Physician - Darby Hamlin MD This Is Your Medications List amiodarone (amiodarone 200 mg Tab) amlodipine (amLODIPine 10 mg Tab) apixaban (Eliquis 5 mg oral tablet) aspirin (aspirin 81 mg Oral EC Tab) atorvastatin (atorvastatin 40 mg Tab) furosemide (furosemide 20 mg Tab) metformin (metformin 500 mg Tab) metoprolol (Metoprolol tartrate 25 mg Tab) spironolactone (spironolactone 25 mg Tab) Procedures Performed CABG - Coronary artery bypass graft. Discharge Vitals Heart Rate (Peripheral) 67 Blood Pressure 102/60 Height 162 cm Height 64 in Weight 77.3 kg Weight 170.06 lb BMI 29.45 What to do next Scheduled Follow-Up Appointments Sunday. 2022 3:00 PM EDT With: Darby Hamlin MD Where: [facility] Telemedicineon 11-14-2022 Telemedicine [id number] Angélica Shen 1940 F Date Provider Department Center 11/14/2022 SATNAM DAVIS [facility] Family History Problem Relation Age of Onset Coronary artery disease Mother Diabetes Mother Alcohol abuse Father Family Status - Relation Status Age at Mother Father Level of Service:43705 [place] OFFICE/OUTPATIENT NEW MODERATE MDM 45-59 MINUTES Normal [facility] T3, TOTAL (TRIIODOTHYRONINE) on 11-10-2022 T3, TOTAL 78 ng/dL Normal 71-180 [facility] Comment on above: Performed By: #### C MP, BNP, TSHRFT4 #### [facility] [address] [place] [address] Dr. Sy Casillas 36on 11-09-2022 36 Patient is currently admitted to [facility] as of 11/09/2022 [facility] BNPon 11-09-2022 Natriuretic peptide B (Bld) [Mass/Vol] 1472.0 pg/mL Normal <=1,800.0 [facility] Comment on above: Performed By: #### C MP, BNP, TSHRFT4 #### [facility] [address] [place] [address] Dr. Sy Casillas CBC AUTO DIFFon 11-09-2022 BASO # 0.3 103/ul Critically high 0.0-0.1 [facility] Comment on above: Performed By: #### C BC #### [facility] [address] [place] [address] Dr. Sy Casillas Basophils/100 WBC (Bld) 3.0 % Critically high 0.2-2.0 [facility] Comment on above: Performed By: #### C BC #### [facility] [address] [place] [address] Dr. Sy Casillas EO # 0.3 103/ul Normal 0.0-0.7 [facility] Comment on above: Performed By: #### C BC #### [facility] [address] [place] [address] Dr. Sy Casillas Eosinophils/100 WBC (Bld) 3.3 % Normal 0.9-7.0 [facility] Comment on above: Performed By: #### C BC #### [facility] [address] [place] [address] Dr. Sy Casillas Erythrocyte distribution width (RBC) [Ratio] 19.9 % Critically high 11.0-15.0 [facility] Comment on above: Performed By: #### C BC #### [facility] [address] [place] [address] Dr. Sy Casillas Hematocrit (Bld) [Volume fraction] 38.1 % Normal 36.0-48.0 [facility] Comment on above: Performed By: #### C BC #### [facility] [address] [place] [address] Dr. Sy Casillas Hemoglobin (Bld) [Mass/Vol] 12.0 g/dL Normal 12.0-16.0 [facility] Comment on above: Performed By: #### C BC #### [facility] [address] [place] [address] Dr. Sy Casillas IG # 0.72 10e3/ul Critically high 0.00-0.03 [facility] Comment on above: Performed By: #### C BC #### [facility] [address] [place] [address] Dr. Sy Casillas IG % 7.5 % Critically high 0.0-0.5 [facility] Comment on above: Performed By: #### C BC #### [facility] [address] [place] [address] Dr. Sy Casillas LYMPH # 1.4 103/ul Normal 1.2-3.8 [facility] Comment on above: Performed By: #### C BC #### [facility] [address] [place] [address] Dr. Sy Casillas Lymphocytes/100 WBC (Bld) 14.1 % Critically low 20.5-60.0 [facility] Comment on above: Performed By: #### C BC #### [facility] [address] [place] [address] Dr. Sy Casillas MANUAL DIFF REQ NO Normal [facility] Comment on above: Performed By: #### C BC #### [facility] [address] [place] [address] Dr. yS Casillas MCH (RBC) [Entitic mass] 25.2 pg Critically low 26.7-34.0 [facility] Comment on above: Performed By: #### C BC #### [facility] [address] [place] [address] Dr. Sy Casillas MCHC (RBC) [Mass/Vol] 31.5 g/dL Normal 29.9-35.2 [facility] Comment on above: Performed By: #### C BC #### [facility] [address] [place] [address] Dr. Sy Casillas MCV (RBC) [Entitic vol] 79.9 fL Critically low 81.0-99.0 [facility] Comment on above: Performed By: #### C BC #### [facility] [address] [place] [address] Dr. Sy Casillas MONO # 0.6 103/ul Normal 0.3-0.8 [facility] Comment on above: Performed By: #### C BC #### [facility] [address] [place] [address] Dr. Sy Casillas Monocytes/100 WBC (Bld) 6.6 % Normal 1.7-12.0 [facility] Comment on above: Performed By: #### C BC #### [facility] [address] [place] [address] Dr. Sy Casillas NEUT # 6.3 103/ul Normal 1.4-6.5 [facility] Comment on above: Performed By: #### C BC #### [facility] [address] [place] [address] Dr. Sy Casillas Neutrophils/100 WBC (Bld) 65.5 % Normal 43.0-75.0 [facility] Comment on above: Performed By: #### C BC #### [facility] [address] [place] [address] Dr. Sy Casillas Platelet mean volume (Bld) [Entitic vol] 10.4 fL Normal 9.5-13.5 [facility] Comment on above: Performed By: #### C BC #### [facility] [address] [place] [address] Dr. Sy Casillas PLT 225 103/ul Normal 150-450 [facility] Comment on above: Performed By: #### C BC #### [facility] [address] [place] [address] Dr. Sy Casillas RBC 4.77 106/ul Normal 4.20-5.40 [facility] Comment on above: Performed By: #### C BC #### [facility] [address] [place] [address] Dr. Sy Casillas WBC 9.6 103/ul Normal 4.0-11.0 [facility] Comment on above: Performed By: #### C BC #### [facility] [address] [place] [address] Dr. Sy Casillas MAGNESIUMon 11-09-2022 Magnesium [Mass/Vol] 1.7 mg/dL Critically low 1.8-2.4 [facility] Comment on above: Performed By: #### C MP, BNP, TSHRFT4 #### [facility] [address] [address] [address] Sy Casillas POINT OF CARE GLUCOSEon 10-15 Glucose [Mass/Vol] 330 mg/dL Critically high 74-106 [facility] Comment on above: Performed By: #### C MP, BNP, TSHRFT4 #### [facility] [address] [place] [address] Dr. Sy Casillas Glucose [Mass/Vol] 197 mg/dL Critically high 74-106 [facility] Comment on above: Performed By: #### P OCGLUC #### [facility] [address] [place] [address] Dr. Sy Casillas PROF 14(COMP METB)on 023 Albumin [Mass/Vol] 2.5 g/dL Critically low 3.4-5.0 [facility] Comment on above: Performed By: #### C MP, BNP, TSHRFT4 #### [facility] [address] [place] [address] Dr. Sy Casillas Albumin/Globulin [Mass ratio] 0.8 {ratio} Normal [facility] Comment on above: Performed By: #### C MP, BNP, TSHRFT4 #### [facility] [address] [place] [address] Dr. Sy Casillas ALP [Catalytic activity/Vol] 83 U/L Normal 46-116 [facility] Comment on above: Performed By: #### C MP, BNP, TSHRFT4 #### [facility] [address] [place] [address] Dr. Sy Casillas ALT [Catalytic activity/Vol] 29 U/L Normal 14-59 [facility] Comment on above: Performed By: #### C MP, BNP, TSHRFT4 #### [facility] [address] [address] [address] Sy Casillas Anion gap [Moles/Vol] 10.3 mmol/L Normal [facility] Comment on above: Performed By: #### C MP, BNP, TSHRFT4 #### [facility] [address] [place] [address] Dr. Sy Casillas AST [Catalytic activity/Vol] 15 U/L Normal 15-37 [facility] Comment on above: Performed By: #### C MP, BNP, TSHRFT4 #### [facility] [address] [place] [address] Dr. Sy Casillas Bilirubin [Mass/Vol] 0.8 mg/dL Normal 0.2-1.0 [facility] Comment on above: Performed By: #### C MP, BNP, TSHRFT4 #### [facility] [address] [place] [address] Dr. Sy Casillas Calcium [Mass/Vol] 8.5 mg/dL Normal 8.5-10.1 [facility] Comment on above: Performed By: #### C MP, BNP, TSHRFT4 #### [facility] [address] [place] [address] Dr. Sy Casillas Chloride [Moles/Vol] 104 mmol/L Normal 98-107 [facility] Comment on above: Performed By: #### C MP, BNP, TSHRFT4 #### [facility] [address] [place] [address] Dr. Sy Casillas CO2 [Moles/Vol] 29.3 mmol/L Normal 21.0-32.0 [facility] Comment on above: Performed By: #### C MP, BNP, TSHRFT4 #### [facility] [address] [place] [address] Dr. Sy Casillas Creatinine [Mass/Vol] 0.75 mg/dL Normal 0.55-1.02 [facility] Comment on above: Performed By: #### C MP, BNP, TSHRFT4 #### [facility] [address] [address] [address] Sy Casillas EGFR-AF SIERRA LEONEAN >60 Normal >=60 [facility] Comment on above: Performed By: #### C MP, BNP, TSHRFT4 #### [facility] [address] [address] [address] Sy Casillas EGFR-NON AF SIERRA LEONEAN >60 Normal >=60 [facility] Comment on above: Performed By: #### C MP, BNP, TSHRFT4 #### [facility] [address] [address] [address] Sy Casillas Globulin (S) [Mass/Vol] 3.1 g/dL Normal [facility] Comment on above: Performed By: #### C MP, BNP, TSHRFT4 #### [facility] [address] [address] [address] Sy Casillas Glucose [Mass/Vol] 69 mg/dL Critically low 74-[address] [facility] Comment on above: Performed By: #### C MP, BNP, TSHRFT4 #### [facility] [address] [address] [address] Sy Casillas Potassium [Moles/Vol] 2.6 mmol/L Critically low 3.5-5.1 [facility] Comment on above: Performed By: #### C MP, BNP, TSHRFT4 #### [facility] [address] [address] [address] Sy Casillas Protein [Mass/Vol] 5.6 g/dL Critically low 6.4-8.2 [facility] Comment on above: Performed By: #### C MP, BNP, TSHRFT4 #### [facility] [address] [address] [address] Sy Casillas Sodium [Moles/Vol] 140 mmol/L Normal 136-145 [facility] Comment on above: Performed By: #### C MP, BNP, TSHRFT4 #### [facility] [address] [address] [address] Sy Casillas Urea nitrogen [Mass/Vol] 17.0 mg/dL Normal 7.0-18.0 [facility] Comment on above: Performed By: #### C MP, BNP, TSHRFT4 #### [facility] [address] [place] [address] Dr. Sy Casillas Urea nitrogen/Creatinine [Mass ratio] 22.7 mg/mg Normal [facility] Comment on above: Performed By: #### C MP, BNP, TSHRFT4 #### [facility] [address] [place] [address] Dr. Sy Casillas ACETONE SERUMon 11-08-2022 ACETONE Negative Normal NEGATIVE [facility] Comment on above: Performed By: #### A CETON #### [facility] [address] [place] [address] Dr. Sy Casillas BNPon 11-08-2022 Natriuretic peptide B (Bld) [Mass/Vol] 1755.0 pg/mL Normal <=1,800.0 [facility] Comment on above: Performed By: #### C MP, BNP, TSHRFT4 #### [facility] [address] [place] [address] Dr. Sy Casillas CBC AUTO DIFFon 11-08-2022 BASO # 0.3 103/ul Critically high 0.0-0.1 [facility] Comment on above: Performed By: #### C MP, BNP, TSHRFT4 #### [facility] [address] [place] [address] Dr. Sy Casillas Basophils/100 WBC (Bld) 2.4 % Critically high 0.2-2.0 [facility] Comment on above: Performed By: #### C MP, BNP, TSHRFT4 #### [facility] [address] [place] [address] Dr. Sy Casillas EO # 0.2 103/ul Normal 0.0-0.7 [facility] Comment on above: Performed By: #### C MP, BNP, TSHRFT4 #### [facility] [address] [place] [address] Dr. Sy Casillas Eosinophils/100 WBC (Bld) 1.4 % Normal 0.9-7.0 [facility] Comment on above: Performed By: #### C MP, BNP, TSHRFT4 #### [facility] [address] [place] [address] Dr. Sy Casillas Erythrocyte distribution width (RBC) [Ratio] 20.1 % Critically high 11.0-15.0 [facility] Comment on above: Performed By: #### C MP, BNP, TSHRFT4 #### [facility] [address] [place] [address] Dr. Sy Casillas Hematocrit (Bld) [Volume fraction] 39.4 % Normal 36.0-48.0 [facility] Comment on above: Performed By: #### C MP, BNP, TSHRFT4 #### [facility] [address] [place] [address] Dr. Sy Casillas Hemoglobin (Bld) [Mass/Vol] 12.8 g/dL Normal 12.0-16.0 [facility] Comment on above: Performed By: #### C MP, BNP, TSHRFT4 #### [facility] [address] [place] [address] Dr. Sy Casillas IG # 0.61 10e3/ul Critically high 0.00-0.03 [facility] Comment on above: Performed By: #### C MP, BNP, TSHRFT4 #### [facility] [address] [place] [address] Dr. Sy Casillas IG % 5.9 % Critically high 0.0-0.5 [facility] Comment on above: Performed By: #### C MP, BNP, TSHRFT4 #### [facility] [address] [place] [address] Dr. Sy Casillas LYMPH # 0.7 103/ul Critically low 1.2-3.8 [facility] Comment on above: Performed By: #### C MP, BNP, TSHRFT4 #### [facility] [address] [place] [address] Dr. Sy Casillas Lymphocytes/100 WBC (Bld) 6.4 % Critically low 20.5-60.0 [facility] Comment on above: Performed By: #### C MP, BNP, TSHRFT4 #### [facility] [address] [place] [address] Dr. Sy Casillas MANUAL DIFF REQ NO Normal [facility] Comment on above: Performed By: #### C MP, BNP, TSHRFT4 #### [facility] [address] [place] [address] Dr. Sy Casillas MCH (RBC) [Entitic mass] 25.4 pg Critically low 26.7-34.0 [facility] Comment on above: Performed By: #### C MP, BNP, TSHRFT4 #### [facility] [address] [place] [address] Dr. Sy Casillas MCHC (RBC) [Mass/Vol] 32.5 g/dL Normal 29.9-35.2 [facility] Comment on above: Performed By: #### C MP, BNP, TSHRFT4 #### [facility] [address] [place] [address] Dr. Sy Casillas MCV (RBC) [Entitic vol] 78.2 fL Critically low 81.0-99.0 [facility] Comment on above: Performed By: #### C MP, BNP, TSHRFT4 #### [facility] [address] [place] [address] Dr. Sy Casillas MONO # 0.6 103/ul Normal 0.3-0.8 [facility] Comment on above: Performed By: #### C MP, BNP, TSHRFT4 #### [facility] [address] [place] [address] Dr. Sy Casillas Monocytes/100 WBC (Bld) 5.8 % Normal 1.7-12.0 [facility] Comment on above: Performed By: #### C MP, BNP, TSHRFT4 #### [facility] [address] [place] [address] Dr. Sy Casillas NEUT # 8.1 103/ul Critically high 1.4-6.5 [facility] Comment on above: Performed By: #### C MP, BNP, TSHRFT4 #### [facility] [address] [place], [place] [id number] Dr. Sy Casillas Neutrophils/100 WBC (Bld) 78.1 % Critically high 43.0-75.0 [facility] Comment on above: Performed By: #### C MP, BNP, TSHRFT4 #### [facility] [address] [place] [address] Dr. Sy Casillas Platelet mean volume (Bld) [Entitic vol] 10.3 fL Normal 9.5-13.5 [facility] Comment on above: Performed By: #### C MP, BNP, TSHRFT4 #### [facility] [address] [place] [address] Dr. Sy Casillas PLT 229 103/ul Normal 150-450 [facility] Comment on above: Performed By: #### C MP, BNP, TSHRFT4 #### [facility] [address] [place] [address] Dr. Sy Casillas RBC 5.04 106/ul Normal 4.20-5.40 [facility] Comment on above: Performed By: #### C MP, BNP, TSHRFT4 #### [facility] [address] [place] [address] Dr. Sy Casillas WBC 10.4 103/ul Normal 4.0-11.0 [facility] Comment on above: Performed By: #### C MP, BNP, TSHRFT4 #### [facility] [address] [place] [address] Dr. Sy Casillas CULTURE URINEon 11-08-2022 CULTURE URINE Culture Observations : MODERATE GROWTH OF MIXED GENITAL ISAURA. NO POTENTIAL PATHOGENS SEEN. Normal [facility] Comment on above: Performed By: #### C MP, BNP, TSHRFT4 #### [facility] [address] [place] [address] Dr. Sy Casillas ER URINE PROFILEon 3 Bilirubin Ql (U) Negative Normal NEGATIVE [facility] Comment on above: Performed By: #### U MICRO, ERUR #### [facility] [address] [place] [address] Dr. Sy Casillas Clarity (U) CLEAR Normal CLEAR [facility] Comment on above: Performed By: #### U MICRO, ERUR #### [facility] [address] [address] [address] Sy Casillas Color (U) LT. YELLOW Normal YELLOW [facility] Comment on above: Performed By: #### U MICRO, ERUR #### [facility] [address] [address] [address] Sy Casillas ERUAHD A micrscopic examina tion will be performed if indicated. Normal [facility] Comment on above: Performed By: #### U MICRO, ERUR #### [facility] [address] [place] [address] Dr. Sy Casillas Glucose Ql (U) >1000 Abnormal NEGATIVE [facility] Comment on above: Performed By: #### U MICRO, ERUR #### [facility] [address] [place] [address] Dr. Sy Casillas Hemoglobin Ql (U) TRACE-INTACT Abnormal NEGATIVE [facility] Comment on above: Performed By: #### U MICRO, ERUR #### [facility] [address] [place] [address] Dr. Sy Casillas Ketones Ql (U) TRACE Abnormal NEGATIVE [facility] Comment on above: Performed By: #### U MICRO, ERUR #### [facility] [address] [place] [address] Dr. Sy Casillas LEUKOCYTES Negative Normal NEGATIVE [facility] Comment on above: Performed By: #### U MICRO, ERUR #### [facility] [address] [address] [address] Sy Casillas Nitrite Ql (U) Negative Normal NEGATIVE [facility] Comment on above: Performed By: #### U MICRO, ERUR #### [facility] [address] [address] [address] Sy Casillas pH (U) 5.0 [pH] Normal 5-9 [facility] Comment on above: Performed By: #### U MICRO, ERUR #### [facility] [address] [place] [address] Dr. Sy Casillas SPEC GRAVITY <=1.005 Abnormal 1.005-<=1.025 [facility] Comment on above: Performed By: #### U MICRO, ERUR #### [facility] [address] [place] [address] Dr. Sy Casillas UA PROTEIN Negative Normal NEGATIVE/ TRACE [facility] Comment on above: Performed By: #### U MICRO, ERUR #### [facility] [address] [place] [address] Dr. Sy Casillas UR MICRO IND INDICATED Normal [facility] Comment on above: Performed By: #### U MICRO, ERUR #### [facility] [address] [place] [address] Dr. Sy Casillas Urobilinogen Qn (U) 0.2 {Brisa'U}/dL Normal 0.2 - 1. 0 [facility] Comment on above: Performed By: #### U MICRO, ERUR #### [facility] [address] [place] [address] Dr. Sy Casillas GLYCOHEMOGLOBIN A1Con 2022 ADA RECOMMENDATION SEE BELOW Normal [facility] Comment on above: Result Comment: ADA RECOMMENDED LIMIT 4.0 - 6.0 ADA THERAPEUTIC TARGET < 7.0 ACTION SUGGESTED > 7.0 Performed By: #### C MP, BNP, TSHRFT4 #### [facility] [address] [place] [address] Dr. Sy Casillas Glucose [Mass/Vol] 240 mg/dL Normal [facility] Comment on above: Performed By: #### C MP, BNP, TSHRFT4 #### [facility] [address] [place] [address] Dr. Sy Casillas HbA1c (Bld) [Mass fraction] 10.0 % Critically high 4.5-6.2 [facility] Comment on above: Performed By: #### C MP, BNP, TSHRFT4 #### [facility] [address] [place] [address] Dr. Sy Casillas LACTATE/LACTIC ACIDon 2022 Lactate [Moles/Vol] 1.7 mmol/L Normal 0.4-2.0 [facility] Comment on above: Performed By: #### C MP, BNP, TSHRFT4 #### [facility] [address] [address] [address] Sy Casillas Lactate [Moles/Vol] 1.7 mmol/L Normal 0.4-2.0 [facility] Comment on above: Performed By: #### A SSBA #### [facility] [address] [address] [address] Sy Casillas Lab Reportson 11-08-2022 Lab Reports [id number]: 127 Normal [facility] MAGNESIUMon 11-08-2022 Magnesium [Mass/Vol] 1.6 mg/dL Critically low 1.8-2.4 [facility] Comment on above: Performed By: #### A SSBA #### [facility] [address] [place] [address] Dr. Sy Casillas PH VENOUS BLOODon 11-08-2022 PCO2 VENOUS 33.4 mmHg Critically low 40.0-52.0 [facility] Comment on above: Performed By: #### A SSBA #### [facility] [address] [address] [address] Sy Casillas pH VENOUS 7.507 Critically high 7.330-7.430 [facility] Comment on above: Performed By: #### A SSBA #### [facility] [address] [place] [address] Dr. Sy Casillas POINT OF CARE GLUCOSEon 10-15 Glucose [Mass/Vol] 378 mg/dL Critically high 74-106 [facility] Comment on above: Performed By: #### A SSBA #### [facility] [address] [address] [address] Sy Casillas PROF 14(COMP METB)on 023 Albumin [Mass/Vol] 3.0 g/dL Critically low 3.4-5.0 [facility] Comment on above: Performed By: #### C MP, BNP, TSHRFT4 #### [facility] [address] [place] [address] Dr. Sy Casillas Albumin/Globulin [Mass ratio] 0.9 {ratio} Normal [facility] Comment on above: Performed By: #### C MP, BNP, TSHRFT4 #### [facility] [address] [place] [address] Dr. Sy Casillas ALP [Catalytic activity/Vol] 101 U/L Normal 46-116 [facility] Comment on above: Performed By: #### C MP, BNP, TSHRFT4 #### [facility] [address] [place] [address] Dr. Sy Casillas ALT [Catalytic activity/Vol] 33 U/L Normal 14-59 [facility] Comment on above: Performed By: #### C MP, BNP, TSHRFT4 #### [facility] [address] [place] [address] Dr. Sy Casillas Anion gap [Moles/Vol] 14.5 mmol/L Normal [facility] Comment on above: Performed By: #### C MP, BNP, TSHRFT4 #### [facility] [address] [place] [address] Dr. Sy Casillas AST [Catalytic activity/Vol] 18 U/L Normal 15-37 [facility] Comment on above: Performed By: #### C MP, BNP, TSHRFT4 #### [facility] [address] [place] [address] Dr. Sy Casillas Bilirubin [Mass/Vol] 1.4 mg/dL Critically high 0.2-1.0 [facility] Comment on above: Performed By: #### C MP, BNP, TSHRFT4 #### [facility] [address] [place] [address] Dr. Sy Casillas Calcium [Mass/Vol] 8.6 mg/dL Normal 8.5-10.1 [facility] Comment on above: Performed By: #### C MP, BNP, TSHRFT4 #### [facility] [address] [place] [address] Dr. Sy Casillas Chloride [Moles/Vol] 92 mmol/L Critically low 98-107 [facility] Comment on above: Performed By: #### C MP, BNP, TSHRFT4 #### [facility] [address] [place] [address] Dr. Sy Casillas CO2 [Moles/Vol] 25.7 mmol/L Normal 21.0-32.0 [facility] Comment on above: Performed By: #### C MP, BNP, TSHRFT4 #### [facility] [address] [place] [address] Dr. Sy Casillas Creatinine [Mass/Vol] 1.05 mg/dL Critically high 0.55-1.02 [facility] Comment on above: Performed By: #### C MP, BNP, TSHRFT4 #### [facility] [address] [place] [address] Dr. Sy Casillas EGFR-AF SIERRA LEONEAN >60 Normal >=60 [facility] Comment on above: Performed By: #### C MP, BNP, TSHRFT4 #### [facility] [address] [place] [address] Dr. Sy Casillas EGFR-NON AF SIERRA LEONEAN 50 mL/min/1.73m2 Critically low >=60 [facility] Comment on above: Performed By: #### C MP, BNP, TSHRFT4 #### [facility] [address] [place] [address] Dr. Sy Casillas Globulin (S) [Mass/Vol] 3.3 g/dL Normal [facility] Comment on above: Performed By: #### C MP, BNP, TSHRFT4 #### [facility] [address] [place] [address] Dr. Sy Casillas Glucose [Mass/Vol] 518 mg/dL Critically high 74-106 [facility] Comment on above: Performed By: #### C MP, BNP, TSHRFT4 #### [facility] [address] [place] [address] Dr. Sy Casillas Potassium [Moles/Vol] 3.2 mmol/L Critically low 3.5-5.1 [facility] Comment on above: Performed By: #### C MP, BNP, TSHRFT4 #### [facility] [address] [address] [address] Sy Casillas Protein [Mass/Vol] 6.3 g/dL Critically low 6.4-8.[address] [facility] Comment on above: Performed By: #### C MP, BNP, TSHRFT4 #### [facility] [address] [place] [address] Dr. Sy Casillas Sodium [Moles/Vol] 129 mmol/L Critically low 136-[address] [facility] Comment on above: Performed By: #### C MP, BNP, TSHRFT4 #### [facility] [address] [place] [address] Dr. Sy Casillas Urea nitrogen [Mass/Vol] 24.0 mg/dL Critically high 7.0-18.0 [facility] Comment on above: Performed By: #### C MP, BNP, TSHRFT4 #### [facility] [address] [place] [address] Dr. Sy Casillas Urea nitrogen/Creatinine [Mass ratio] 22.9 mg/mg Normal [facility] Comment on above: Performed By: #### C MP, BNP, TSHRFT4 #### [facility] [address] [place] [address] Dr. Sy Casillas SED RATE [facility] 2022 SED RATE 53 mm/hr Critically high <=30 [facility] Comment on above: Performed By: #### S EDR #### [facility] [address] [place] [address] Dr. Sy Casillas T4on 11-08-2022 T4 [Mass/Vol] 11.40 ug/dL Normal 4.80-13.90 [facility] Comment on above: Performed By: #### A SSBA #### [facility] [address] [place] [address] Dr. Sy Casillas TROPONIN, HIGH SENSITIVITYon 11-08-2022 HSTROP 10.0 pg/mL Normal 4.0-51.3 [facility] Comment on above: Result Comment: CUT- OFF POINTS HAVE BEEN ESTABLISHED BASED ON THE FOURTH UNIVERSAL DEFINITIONS OF MYOCARDIAL INFARCTION. THE UPPER REFERENCE LIMIT (URL) OF TROPONIN, DEFINED THE 99TH PERCENTILE OF cTnI DISTRIBUTION IN A REFERENCE POPULATION, HAS BEEN CONFIRMED THE DECISION THRESHOLD FOR WI DIAGNOSIS. Performed By: #### C MP, BNP, TSHRFT4 #### [facility] [address] [place] [address] Dr. Sy Casillas TSHon 11-08-2022 TSH 1.031 uIU/mL Normal 0.358-3.740 [facility] Comment on above: Performed By: #### A SSBA #### [facility] [address] [place] [address] Dr. Sy Casillas URINE MICROSCOPIC ONLYon BACTERIA TRACE Abnormal NONE SEEN [facility] Comment on above: Performed By: #### U MICRO, ERUR #### [facility] [address] [place] [address] Dr. Sy Casillas Bacteria identified Cx Nom (U) NOT INDICATED Normal [facility] Comment on above: Performed By: #### U MICRO, ERUR #### [facility] [address] [place] [address] Dr. Sy Casillas CAST NONE SEEN Normal NONE SEEN [facility] Comment on above: Performed By: #### U MICRO, ERUR #### [facility] [address] [place] [address] Dr. Sy Casillas Crystals LM Nom (Urine sed) NONE SEEN Normal NONE SEEN [facility] [facility] Comment on above: Performed By: #### U MICRO, ERUR #### [facility] [address] [place] [address] Dr. Sy Casillas Epithelial cells LM Ql (Urine sed) RARE Normal NONE SEEN /RARE [facility] Comment on above: Performed By: #### U MICRO, ERUR #### [facility] [address] [place] [address] Dr. Sy Casillas MUCOUS NONE SEEN Normal NONE SEEN [facility] Comment on above: Performed By: #### U MICRO, ERUR #### [facility] [address] [place] [address] Dr. Sy Casillas RBC 2-5 Abnormal 0-2 [facility] Comment on above: Performed By: #### U MICRO, ERUR #### [facility] [address] [place] [address] Dr. Sy Casillas WBC 2-5 Abnormal NONE SEEN [facility] Comment on above: Performed By: #### U MICRO, ERUR #### [facility] [address] [place] [address] Dr. Sy Casillas XR CHEST 1 Von 11-08-2022 XR CHEST 1 V EXAMINATION: XR CHES T 1 V HISTORY: Hyperglycemia COMPARISON: No relevant comparison available. TECHNIQUE: AP portable FINDINGS: LUNGS: Moderate left basilar infiltrate obscuring the hemidiaphragm and heart border. The right lung is clear VASCULATURE: No increased pulmonary vasculature. PLEURA: No pneumothorax CARDIAC: Moderate cardiomegaly MEDIASTINUM: No visible mass or adenopathy. Wires and aortic atherosclerosis BONES: No fracture or visible bone lesion. OTHER: Negative. IMPRESSION: Left basilar infiltrate likely within the lingula and left lower lobe Electronically authenticated by: BYRON QUINTERO Date: 2022-11-08 15:19 Normal [facility] PROF CHEM 8 (BAS METB)on Anion gap [Moles/Vol] 14.2 mmol/L Normal [facility] Comment on above: Performed By: #### C MP, BNP, TSHRFT4 #### [facility] [address] [place] [address] Dr. Sy Casillas Calcium [Mass/Vol] 8.9 mg/dL Normal 8.5-10.1 [facility] Comment on above: Performed By: #### C MP, BNP, TSHRFT4 #### [facility] [address] [address] [address] Sy Casillas Chloride [Moles/Vol] 96 mmol/L Critically low 98-107 [facility] Comment on above: Performed By: #### C MP, BNP, TSHRFT4 #### [facility] [address] [place] [address] Dr. Sy Casillas CO2 [Moles/Vol] 29.7 mmol/L Normal 21.0-32.0 [facility] Comment on above: Performed By: #### C MP, BNP, TSHRFT4 #### [facility] [address] [place] [address] Dr. Sy Casillas Creatinine [Mass/Vol] 1.27 mg/dL Critically high 0.55-1.02 [facility] Comment on above: Performed By: #### C MP, BNP, TSHRFT4 #### [facility] [address] [address] [address] Sy Casillas EGFR-AF SIERRA LEONEAN 49 mL/min/1.73m2 Critically low >=60 [facility] Comment on above: Performed By: #### C MP, BNP, TSHRFT4 #### [facility] [address] [address] [address] Sy Casillas EGFR-NON AF SIERRA LEONEAN 40 mL/min/1.73m2 Critically low >=60 [facility] Comment on above: Performed By: #### C MP, BNP, TSHRFT4 #### [facility] [address] [place] [address] Dr. Sy Casillas Glucose [Mass/Vol] 526 mg/dL Critically high 74-106 [facility] Comment on above: Performed By: #### C MP, BNP, TSHRFT4 #### [facility] [address] [address] [address] Sy Casillas Potassium [Moles/Vol] 3.9 mmol/L Normal 3.5-5.1 [facility] Comment on above: Performed By: #### C MP, BNP, TSHRFT4 #### [facility] [address] [address] [address] Sy Casillas Sodium [Moles/Vol] 136 mmol/L Normal 136-145 [facility] Comment on above: Performed By: #### C MP, BNP, TSHRFT4 #### [facility] [address] [address] [address] Sy Casillas Urea nitrogen [Mass/Vol] 24.0 mg/dL Critically high 7.0-18.0 [facility] Comment on above: Performed By: #### C MP, BNP, TSHRFT4 #### [facility] [address] [address] [address] Sy Casillas Urea nitrogen/Creatinine [Mass ratio] 18.9 mg/mg Normal [facility] Comment on above: Performed By: #### C MP, BNP, TSHRFT4 #### [facility] [address] [address] [address] Sy Casillas Orders Onlyon 11-02-2022 Orders Only [id number] Angélica Shen 1940 Provider Department Center 11/02/2022 VIVIANE BOLTON SAUD [facility] Family History Problem Relation Age of Onset Coronary artery disease Mother Diabetes Mother Alcohol abuse Father Family Status - Relation Status Age at Mother Father Normal [facility] Telephoneon 11-02-2022 Telephone [id number] Angélica Shen 1940 Provider Department Center 11/02/2022 LEYLA JARRETT [facility] Family History Problem Relation Age of Onset Coronary artery disease Mother Diabetes Mother Alcohol abuse Father Family Status - Relation Status Age at Mother Father Normal [facility] BNPon 11-01-2022 Natriuretic peptide B (Bld) [Mass/Vol] 2503.0 pg/mL Critically high <=1,800.0 [facility] Comment on above: Performed By: #### C MP, BNP, TSHRFT4 #### [facility] [address] [place] [address] Dr. Sy Casillas Office Visiton 11-01-2022 Follow-up visit [id number] Angélica Shen 1940 Provider Department Center 11/01/2022 VIVIANE BOLTON [facility] Family History Problem Relation Age of Onset Coronary artery disease Mother Diabetes Mother Alcohol abuse Father Family Status - Relation Status Age at Mother Father Level of Service:96415 [place] OFFICE/OUTPATIENT ESTABLISHED HIGH MDM 40-54 MIN Reason for Visit and Comments: Coronary Artery Disease [187] Atrial Fibrillation [80] Shortness of Breath [078395] Normal [facility] PROF 14(COMP METB)on 023 Albumin [Mass/Vol] 3.4 g/dL Normal 3.4-5.0 [facility] Comment on above: Performed By: #### C MP, BNP, TSHRFT4 #### [facility] [address] [address] [address] Sy Casillas Albumin/Globulin [Mass ratio] 1.1 {ratio} Normal [facility] Comment on above: Performed By: #### C MP, BNP, TSHRFT4 #### [facility] [address] [address] [address] Sy Casillas ALP [Catalytic activity/Vol] 108 U/L Normal 46-116 [facility] Comment on above: Performed By: #### C MP, BNP, TSHRFT4 #### [facility] [address] [place] [address] Dr. Sy Casillas ALT [Catalytic activity/Vol] 44 U/L Normal 14-59 [facility] Comment on above: Performed By: #### C MP, BNP, TSHRFT4 #### [facility] [address] [place] [address] Dr. Sy Casillas Anion gap [Moles/Vol] 14.6 mmol/L Normal [facility] Comment on above: Performed By: #### C MP, BNP, TSHRFT4 #### [facility] [address] [address] [address] Sy Casillas AST [Catalytic activity/Vol] 14 U/L Critically low 15-37 [facility] Comment on above: Performed By: #### C MP, BNP, TSHRFT4 #### [facility] [address] [address] [address] Sy Casillas Bilirubin [Mass/Vol] 1.5 mg/dL Critically high 0.2-1.0 [facility] Comment on above: Performed By: #### C MP, BNP, TSHRFT4 #### [facility] [address] [address] [address] Sy Casillas Calcium [Mass/Vol] 9.3 mg/dL Normal 8.5-10.1 [facility] Comment on above: Performed By: #### C MP, BNP, TSHRFT4 #### [facility] [address] [address] [address] Sy Casillas Chloride [Moles/Vol] 97 mmol/L Critically low 98-107 [facility] Comment on above: Performed By: #### C MP, BNP, TSHRFT4 #### [facility] [address] [place] [address] Dr. Sy Casillas CO2 [Moles/Vol] 28.1 mmol/L Normal 21.0-32.0 [facility] Comment on above: Performed By: #### C MP, BNP, TSHRFT4 #### [facility] [address] [place] [address] Dr. Sy Casillas Creatinine [Mass/Vol] 0.93 mg/dL Normal 0.55-1.02 [facility] Comment on above: Performed By: #### C MP, BNP, TSHRFT4 #### [facility] [address] [place] [address] Dr. Sy Casillas EGFR-AF SIERRA LEONEAN >60 Normal >=60 [facility] Comment on above: Performed By: #### C MP, BNP, TSHRFT4 #### [facility] [address] [place] [address] Dr. Sy Casillas EGFR-NON AF SIERRA LEONEAN 58 mL/min/1.73m2 Critically low >=60 [facility] Comment on above: Performed By: #### C MP, BNP, TSHRFT4 #### [facility] [address] [place] [address] Dr. Sy Casillas Globulin (S) [Mass/Vol] 3.1 g/dL Normal [facility] Comment on above: Performed By: #### C MP, BNP, TSHRFT4 #### [facility] [address] [place] [address] Dr. Sy Casillas Glucose [Mass/Vol] 421 mg/dL Critically high 74-106 [facility] Comment on above: Performed By: #### C MP, BNP, TSHRFT4 #### [facility] [address] [place] [address] Dr. Sy Casillas Potassium [Moles/Vol] 3.7 mmol/L Normal 3.5-5.1 [facility] Comment on above: Performed By: #### C MP, BNP, TSHRFT4 #### [facility] [address] [place] [address] Dr. Sy Casillas Protein [Mass/Vol] 6.5 g/dL Normal 6.4-8.2 [facility] Comment on above: Performed By: #### C MP, BNP, TSHRFT4 #### [facility] [address] [place] [address] Dr. Sy Casillas Sodium [Moles/Vol] 136 mmol/L Normal 136-145 [facility] Comment on above: Performed By: #### C MP, BNP, TSHRFT4 #### [facility] [address] [place] [address] Dr. Sy Casillas Urea nitrogen [Mass/Vol] 26.0 mg/dL Critically high 7.0-18.0 [facility] Comment on above: Performed By: #### C MP, BNP, TSHRFT4 #### [facility] [address] [place] [address] Dr. Sy Casillas Urea nitrogen/Creatinine [Mass ratio] 28.0 mg/mg Normal [facility] Comment on above: Performed By: #### C MP, BNP, TSHRFT4 #### [facility] [address] [place] [address] Dr. Sy Casillas TSH W/ REFLEX TO FT4on 11-01 TSH 0.925 uIU/mL Normal 0.358-3.740 [facility] Comment on above: Performed By: #### C MP, BNP, TSHRFT4 #### [facility] [address] [place] [address] Dr. Sy Casillas Echocardiographyon 3 Echocardiography [id number]: 127 Normal [facility] ECHOCARDIO M/2D COMPLETEon 0 10-18-2022 ECHOCARDIO M/2D COMPLETE Patient: MYRNA SHEN Exam Date: 10/18/2022 : 1940 Gender:F Ordering : DR LEXI PURCELL M.D. Admission #: [id number] Family : DR. DARBY HAMLIN . 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 DESCRIPTION: COMPLETE ECHOCARDIOGRAM Real-time transthoracic echocardiography with 2D, M-mode, spectral and color flow Doppler performed. QUALITY: Technical quality was adequate. 65 175# 124/80 HR 108 LEFT VENTRICLE: Normal chamber size. Mild concentric left ventricular hypertrophy. Global left ventricular systolic function is normal. LV EF: Visual estimation of left ventricular ejection fraction is 60%. DIASTOLIC: Not adequately assessed due to heart rhythm. ATRIAL SEPTUM: LEFT ATRIUM: Severe dilatation. RIGHT ATRIUM: Moderate dilatation. RIGHT VENTRICLE: Mild dilatation. Normal right ventricular systolic function. TRICUSPID VALVE: Normal mobility and thickness. No stenosis with moderate regurgitation. Mild pulmonary hypertension. RVSP 30 mmHg MITRAL VALVE: Normal mobility and thickness. No evidence of mitral valve stenosis. Moderate mitral annular calcification. Mild mitral regurgitation. AORTIC VALVE: Normal trileaflet appearance. Mildly calcified aortic valve. No evidence of aortic valve stenosis. No aortic regurgitation. AORTIC ROOT: Normal diameter and appearance. PULMONIC VALVE: Normal thickness and mobility. No stenosis. Trivial regurgitation. PERICARDIUM: Trivial pericardial effusion. IVC: Collapses with inspirations. IVC is normal in size. PLEURA: CONCLUSION: 1. Mild concentric left ventricular hypertrophy. Normal left ventricular systolic function. LVEF is 60%. 2. Mildly dilated right ventricle with normal systolic function. 3. Moderate to severe biatrial dilatation. 4. Mild mitral and moderate tricuspid regurgitation. 5. Normal right-sided pressures. 6. Trivial pericardial effusion. 7. The patient is in atrial fibrillation during the exam. Adult Echocardiography Procedure Report Left Ventricle Left Atrium Mitral Valve Right Ventricle Aorta Aortic Valve AoV Area (Peak Derick): 1.36 cm2, 1.36 cm2 Peak Velocity(Antegrade Flow): 1.38 m/s Peak Gradient(Antegrade Flow): 7.65 mm[Hg] Tricuspid Valve Peak Velocity (Regurgitant Flow): 2.61 m/s Peak Velocity: 0.59 m/s Pulmonic Valve Peak Velocity: 0.68 m/s, 0.68 m/s, 0.72 m/s Right Atrium Dictated by: eLxi Purcell M.D. on 10/19/2022 at 18:32 Approved by: Lexi Purcell M.D. on 10/19/2022 at 18:37 Normal [facility] ANTISCLERODERMA ABon 023 Antiscleroderma-70 Antibodies <0.2 Normal 0.0-0.9 [facility] Comment on above: Performed By: #### C MP, BNP, TSHRFT4 #### [facility] [address] [address] [address] Sy Casillas SJOGRENS ANTI-SS-Aon 023 Sjogren's Anti-SS-A <0.2 Normal 0.0-0.9 [facility] Comment on above: Performed By: #### A SSBA #### [facility] [address] [address] [address] Sy Casillas SJOGR ANTI-SS-Bon 023 Sjogren's Anti-SS-B <0.2 Normal 0.0-0.9 [facility] Comment on above: Performed By: #### A SSBA #### [facility] [address] [address] [address] Sy Casillas JARAMILLO ANTIBODIESon 3 Jaramillo Antibodies <0.2 Normal 0.0-0.9 [facility] Comment on above: Performed By: #### A SSBA #### [facility] [address] [place] [address] Dr. Sy Casillas Office Visiton 09-25-2022 Follow-up visit [id number] Angélica Shen 1940 F Date Provider Department Center 09/25/2022 LEXI VILLALTA [facility] Family History Problem Relation Age of Onset Coronary artery disease Mother Diabetes Mother Alcohol abuse Father Family Status - Relation Status Age at Mother Father Level of Service:60323 [place] OFFICE/OUTPATIENT ESTABLISHED MOD MDM 30-39 MIN Reason for Visit and Comments: Coronary Artery Disease [187] Hypertension [187072] Atrial Fibrillation [80] Normal [facility] DARREL by IFAon 09-19-2022 Antinuclear Antibodies, IFA Positive Abnormal [facility] Comment on above: Result Comment: Nega tive <1:80 Borderline 1:80 Positive >1:80 Performed By: #### A SSBA #### [facility] [address] [address] [address] Sy Casillas Centriole Pattern Normal [facility] Comment on above: Performed By: #### A SSBA #### [facility] [address] [address] [address] Sy Casillas Centromere Pattern Normal [facility] Comment on above: Performed By: #### A SSBA #### [facility] [address] [address] [address] Sy Casillas Homogeneous Pattern Normal [facility] Comment on above: Performed By: #### A SSBA #### [facility] [address] [place] [address] Dr. Sy Casillas Midbody Pattern Normal [facility] Comment on above: Performed By: #### A SSBA #### [facility] [address] [place] [address] Dr. Sy Casillas Note: Comment Normal [facility] Comment on above: Result Comment: For more information about Hep-2 cell patterns use ANApatterns.org, the official website for the International Consensus on Antinuclear Antibody (DARREL) Patterns (ICAP). A positive DARREL result may occur in healthy individuals (low titer) or be associated with a variety of diseases. See interpretation chart which is not all inclusive: . Pattern Antigen Detected Suggested Disease Association Homogeneous DNA(ds,ss), SLE - High titers Nucleosomes, Histones Drug-induced SLE Speckled Sm, LAY[employer] OPERATOR, SCL-70, SLE,MCTD,PSS (diffuse form), SS-A/SS-B Sjogrens Nucleolar SCL-70, PM-1/SCL High titers Scleroderma, PM/DM Centromere Centromere PSS (limited form) w/Crest syndrome variable Nuclear Dot [id number] Primary Biliary Cirrhosis Nuclear GP210, Primary Biliary Cirrhosis Membrane belem A,B,C Performed By: #### A SSBA #### [facility] [address] [place] [address] Dr. Sy Casillas Nuclear Dot Pattern Normal [facility] Comment on above: Performed By: #### A SSBA #### [facility] [address] [place] [address] Dr. Sy Casillas Nuclear Membrane Pattern Normal [facility] Comment on above: Performed By: #### A SSBA #### [facility] [address] [place] [address] Dr. Sy Casillas Nucleolar Pattern Normal [facility] Comment on above: Performed By: #### A SSBA #### [facility] [address] [place] [address] Dr. Sy Casillas PCNA Pattern Normal [facility] Comment on above: Performed By: #### A SSBA #### [facility] [address] [place] [address] Dr. Sy Casillas Speckled Pattern 1:320 Critically high [facility] Comment on above: Result Comment: Dens e Fine Speckled pattern is noted. This pattern suggests the presence of DFS70 antibody which has a low prevalence in systemic autoimmune rheumatic diseases. ICAP nomenclature: AC-2,4,5,29 Performed By: #### A SSBA #### [facility] [address] [place] [address] Dr. Sy Casillas Spindle Apparatus Pattern Normal [facility] Comment on above: Performed By: #### A SSBA #### [facility] [address] [place] [address] Dr. Sy Casillas BNPon 09-15-2022 Natriuretic peptide B (Bld) [Mass/Vol] 1243.0 pg/mL Normal <=1,800.0 [facility] Comment on above: Performed By: #### C MP, BNP, TSHRFT4 #### [facility] [address] [place] [address] Dr. Sy Casillas CBC AUTO DIFFon 09-15-2022 BASO # 0.1 103/ul Normal 0.0-0.1 [facility] Comment on above: Performed By: #### C MP, BNP, TSHRFT4 #### [facility] [address] [place] [address] Dr. Sy Casillas Basophils/100 WBC (Bld) 0.8 % Normal 0.2-2.0 [facility] Comment on above: Performed By: #### C MP, BNP, TSHRFT4 #### [facility] [address] [place] [address] Dr. Sy Casillas EO # 0.1 103/ul Normal 0.0-0.7 [facility] Comment on above: Performed By: #### C MP, BNP, TSHRFT4 #### [facility] [address] [place] [address] Dr. Sy Casillas Eosinophils/100 WBC (Bld) 0.5 % Critically low 0.9-7.0 [facility] Comment on above: Performed By: #### C MP, BNP, TSHRFT4 #### [facility] [address] [place] [address] Dr. Sy Casillas Erythrocyte distribution width (RBC) [Ratio] 18.5 % Critically high 11.0-15.0 [facility] Comment on above: Performed By: #### C MP, BNP, TSHRFT4 #### [facility] [address] [place] [address] Dr. Sy Casillas Hematocrit (Bld) [Volume fraction] 42.9 % Normal 36.0-48.0 [facility] Comment on above: Performed By: #### C MP, BNP, TSHRFT4 #### [facility] [address] [place] [address] Dr. Sy Casillas Hemoglobin (Bld) [Mass/Vol] 13.3 g/dL Normal 12.0-16.0 [facility] Comment on above: Performed By: #### C MP, BNP, TSHRFT4 #### [facility] [address] [place] [address] Dr. Sy Casillas IG # 0.19 10e3/ul Critically high 0.00-0.03 [facility] Comment on above: Performed By: #### C MP, BNP, TSHRFT4 #### [facility] [address] [place] [address] Dr. Sy Casillas IG % 1.4 % Critically high 0.0-0.5 [facility] Comment on above: Performed By: #### C MP, BNP, TSHRFT4 #### [facility] [address] [place] [address] Dr. Sy Casillas LYMPH # 1.1 103/ul Critically low 1.2-3.8 [facility] Comment on above: Performed By: #### C MP, BNP, TSHRFT4 #### [facility] [address] [place] [address] Dr. Sy Casillas Lymphocytes/100 WBC (Bld) 8.4 % Critically low 20.5-60.0 [facility] Comment on above: Performed By: #### C MP, BNP, TSHRFT4 #### [facility] [address] [place] [address] Dr. Sy Casillas MANUAL DIFF REQ NO Normal [facility] Comment on above: Performed By: #### C MP, BNP, TSHRFT4 #### [facility] [address] [place] [address] Dr. Sy Casillas MCH (RBC) [Entitic mass] 24.5 pg Critically low 26.7-34.0 [facility] Comment on above: Performed By: #### C MP, BNP, TSHRFT4 #### [facility] [address] [place] [address] Dr. Sy Casillas MCHC (RBC) [Mass/Vol] 31.0 g/dL Normal 29.9-35.2 [facility] Comment on above: Performed By: #### C MP, BNP, TSHRFT4 #### [facility] [address] [place] [address] Dr. Sy Casillas MCV (RBC) [Entitic vol] 79.0 fL Critically low 81.0-99.0 [facility] Comment on above: Performed By: #### C MP, BNP, TSHRFT4 #### [facility] [address] [place] [address] Dr. Sy Casillas MONO # 0.7 103/ul Normal 0.3-0.8 [facility] Comment on above: Performed By: #### C MP, BNP, TSHRFT4 #### [facility] [address] [place] [address] Dr. Sy Casillas Monocytes/100 WBC (Bld) 5.0 % Normal 1.7-12.0 [facility] Comment on above: Performed By: #### C MP, BNP, TSHRFT4 #### [facility] [address] [place] [address] Dr. Sy Casillas NEUT # 11.0 103/ul Critically high 1.4-6.5 [facility] Comment on above: Performed By: #### C MP, BNP, TSHRFT4 #### [facility] [address] [place] [address] Dr. Sy Casillas Neutrophils/100 WBC (Bld) 83.9 % Critically high 43.0-75.0 [facility] Comment on above: Performed By: #### C MP, BNP, TSHRFT4 #### [facility] [address] [place] [address] Dr. Sy Casillas Platelet mean volume (Bld) [Entitic vol] 10.3 fL Normal 9.5-13.5 [facility] Comment on above: Performed By: #### C MP, BNP, TSHRFT4 #### [facility] [address] [place] [address] Dr. Sy Casillas PLT 212 103/ul Normal 150-450 [facility] [facility] Comment on above: Performed By: #### C MP, BNP, TSHRFT4 #### [facility] [address] [place] [address] Dr. Sy Casillas RBC 5.43 106/ul Critically high 4.20-5.40 [facility] Comment on above: Performed By: #### C MP, BNP, TSHRFT4 #### [facility] [address] [place] [address] Dr. Sy Casillas WBC 13.1 103/ul Critically high 4.0-11.0 [facility] Comment on above: Performed By: #### C MP, BNP, TSHRFT4 #### [facility] [address] [place] [address] Dr. Sy Casillas LIPID PROFILEon 09-15-2022 CHOL-HDL RATIO NORM SEE BELOW Normal [facility] Comment on above: Result Comment: 3.3 - 4.4 LOW RISK 4.4 - 7.1 AVERAGE RISK 7.1 - 11.0 MODERATE RISK >11.0 HIGH RISK Performed By: #### C MP, BNP, TSHRFT4 #### [facility] [address] [address] [address] Sy Casillas Cholesterol [Mass/Vol] 147 mg/dL Normal <=200 [facility] Comment on above: Performed By: #### C MP, BNP, TSHRFT4 #### [facility] [address] [address] [address] Sy Casillas Cholesterol in HDL [Mass/Vol] 53 mg/dL Normal 40-60 [facility] Comment on above: Performed By: #### C MP, BNP, TSHRFT4 #### [facility] [address] [address] [address] Sy Casillas Cholesterol in LDL [Mass/Vol] 84.2 mg/dL Normal [facility] Comment on above: Performed By: #### C MP, BNP, TSHRFT4 #### [facility] [address] [address] [address] Sy Casillas Cholesterol.total/C holesterol in HDL [Mass ratio] 2.8 {ratio} Normal [facility] Comment on above: Performed By: #### C MP, BNP, TSHRFT4 #### [facility] [address] [address] [address] Sy Casillas HDL NORMAL > or = 60 mg/dl - LO W CARDIOVASCULAR RISK <40 mg/dl - HIGH CARDIOVASCULAR RISK Normal [facility] Comment on above: Performed By: #### C MP, BNP, TSHRFT4 #### [facility] [address] [address] [address] Sy Casillas LDL CALC NORMAL SEE BELOW Normal [facility] Comment on above: Result Comment: <100 mg/dl OPTIMAL 100 - 129 mg/dl NEAR OR ABOVE OPTIMAL 130 - 159 mg/dl BORDERLINE HIGH 160 - 189 mg/dl HIGH >190 mg/dl VERY HIGH Performed By: #### C MP, BNP, TSHRFT4 #### [facility] [address] [address] [address] Sy Casillas Triglyceride [Mass/Vol] 49 mg/dL Normal <=150 [facility] Comment on above: Performed By: #### C MP, BNP, TSHRFT4 #### [facility] [address] [place] [address] Dr. Sy Casillas VLDL CALC 9.8 mg/dL Normal [facility] Comment on above: Performed By: #### C MP, BNP, TSHRFT4 #### [facility] [address] [place] [address] Dr. Sy Casillas PROF 14(COMP METB)on 023 Albumin [Mass/Vol] 4.0 g/dL Normal 3.4-5.0 [facility] Comment on above: Performed By: #### C MP, BNP, TSHRFT4 #### [facility] [address] [place] [address] Dr. Sy Casillas Albumin/Globulin [Mass ratio] 1.3 {ratio} Normal [facility] Comment on above: Performed By: #### C MP, BNP, TSHRFT4 #### [facility] [address] [place] [address] Dr. Sy Casillas ALP [Catalytic activity/Vol] 99 U/L Normal 46-116 [facility] Comment on above: Performed By: #### C MP, BNP, TSHRFT4 #### [facility] [address] [place] [address] Dr. Sy Casillas ALT [Catalytic activity/Vol] 20 U/L Normal 14-59 [facility] Comment on above: Performed By: #### C MP, BNP, TSHRFT4 #### [facility] [address] [place] [address] Dr. Sy Casillas Anion gap [Moles/Vol] 13.3 mmol/L Normal [facility] Comment on above: Performed By: #### C MP, BNP, TSHRFT4 #### [facility] [address] [place] [address] Dr. Sy Casillas AST [Catalytic activity/Vol] 13 U/L Critically low 15-37 [facility] Comment on above: Performed By: #### C MP, BNP, TSHRFT4 #### [facility] [address] [place] [address] Dr. Sy Casillas Bilirubin [Mass/Vol] 0.6 mg/dL Normal 0.2-1.0 [facility] Comment on above: Performed By: #### C MP, BNP, TSHRFT4 #### [facility] [address] [place] [address] Dr. Sy Casillas Calcium [Mass/Vol] 9.7 mg/dL Normal 8.5-10.1 [facility] Comment on above: Performed By: #### C MP, BNP, TSHRFT4 #### [facility] [address] [place] [address] Dr. Sy Casillas Chloride [Moles/Vol] 107 mmol/L Normal 98-107 [facility] Comment on above: Performed By: #### C MP, BNP, TSHRFT4 #### [facility] [address] [place] [address] Dr. Sy Casillas CO2 [Moles/Vol] 29.0 mmol/L Normal 21.0-32.0 [facility] Comment on above: Performed By: #### C MP, BNP, TSHRFT4 #### [facility] [address] [place] [address] Dr. Sy Casillas Creatinine [Mass/Vol] 0.65 mg/dL Normal 0.55-1.02 [facility] Comment on above: Performed By: #### C MP, BNP, TSHRFT4 #### [facility] [address] [place] [address] Dr. Sy Casillas EGFR-AF SIERRA LEONEAN >60 Normal >=60 [facility] Comment on above: Performed By: #### C MP, BNP, TSHRFT4 #### [facility] [address] [place] [address] Dr. Sy Casillas EGFR-NON AF SIERRA LEONEAN >60 Normal >=60 [facility] Comment on above: Performed By: #### C MP, BNP, TSHRFT4 #### [facility] [address] [place] [address] Dr. Sy Casillas Globulin (S) [Mass/Vol] 3.1 g/dL Normal [facility] Comment on above: Performed By: #### C MP, BNP, TSHRFT4 #### [facility] [address] [address] [address] Sy Casillas Glucose [Mass/Vol] 149 mg/dL Critically high 74-106 [facility] Comment on above: Performed By: #### C MP, BNP, TSHRFT4 #### [facility] [address] [place] [address] Dr. Sy Casillas Potassium [Moles/Vol] 4.3 mmol/L Normal 3.5-5.1 [facility] Comment on above: Performed By: #### C MP, BNP, TSHRFT4 #### [facility] [address] [place] [address] Dr. Sy Casillas Protein [Mass/Vol] 7.1 g/dL Normal 6.4-8.2 [facility] Comment on above: Performed By: #### C MP, BNP, TSHRFT4 #### [facility] [address] [place] [address] Dr. Sy Casillas Sodium [Moles/Vol] 145 mmol/L Normal 136-145 [facility] Comment on above: Performed By: #### C MP, BNP, TSHRFT4 #### [facility] [address] [place] [address] Dr. Sy Casillas Urea nitrogen [Mass/Vol] 19.0 mg/dL Critically high 7.0-18.0 [facility] Comment on above: Performed By: #### C MP, BNP, TSHRFT4 #### [facility] [address] [place] [address] Dr. Sy Casillas Urea nitrogen/Creatinine [Mass ratio] 29.2 mg/mg Normal [facility] Comment on above: Performed By: #### C MP, BNP, TSHRFT4 #### [facility] [address] [place] [address] Dr. Sy Casillas Office Visiton 06-20-2022 Follow-up visit [id number] Angélica Shen 1940 F Date Provider Department Center 06/20/2022 VIVIANE [facility] Family History Problem Relation Age of Onset Coronary artery disease Mother Diabetes Mother Alcohol abuse Father Family Status - Relation Status Age at Mother Father Level of Service:18030 LA OFFICE/OUTPATIENT ESTABLISHED LOW MDM 20-29 MIN Reason for Visit and Comments: Coronary Artery Disease [187] Atrial Fibrillation [80] Hypertension [153433] Normal [facility] Encounters Encounter Date Encounter Type Care Provider Facility Start: 10-02-2023 Telephone encounter Lachelle Reyez Work Phone: Hematology/Oncology Comment on above: Opened In Error (sen t on incorrect pt ) Start: 10-01-2023 ambulatory MD Darby Hamlin Facil ity:CD:[id number] Start: 09-26-2023 Refill Lamberto morris MD, PhD Work Phone: Hematology/Oncology Comment on above: Refill Request SPP Oral Oncology/he matology - Medication Refill (Venclexta) Start: 09-20-2023 [facility] Start: 09-20-2023 Chart abstracting Latosha Austin Research Coordinator Work Phone: Hematology/Oncology Comment on above: Research (IRB 5024: Collection of Blood & Bone Marrow from Normal [employer] Patients for Research Purposes) Refill Request Start: 09-20-2023 Patient encounter procedure Denver Calle [facility] Comment on above: SPP Oral Oncology/he matology - Treatment Referral (Venclexta); Insurance Authorization ([place] Not Required) Start: 09-20-2023 Telephone encounter Krista Kalyani Hem atology/Oncology Comment on above: Medication Assistanc e Program (MERCK PATIENT PROGRAM; APPROVED FOR DATES: 09/20/2023 - 07/15/2024) Start: 09-20-2023 Evaluation and management of inpatient ANA ROSA ORELLANALEOPOLDO JAMES Facility:[facility] Start: 09-19-2023 End: 09-20-2023 ambulatory MD Darby Hamlin [facility] Start: 09-18-2023 End: 09-18-2023 ambulatory NON STAFF Facility:[facility] Start: 09-18-2023 End: 09-19-2023 ambulatory MD [facility] Start: 08-31-2023 End: 09-01-2023 ambulatory ROUTE SAL[employer] PERSON Aurea L Jose Facility:[facility] Start: 08-31-2023 End: 08-31-2023 Lab Drop off Aurea L Jose [facility] Start: 07-18-2023 ambulatory MD Darby Hamlin Facil ity:[facility] Start: 04-27-2023 End: 04-27-2023 ambulatory [facility] Start: 03-28-2023 ambulatory MD Darby Hamlin Facil ity:[facility] Start: 03-02-2023 End: 03-02-2023 ambulatory [facility] Start: 12-27-2022 End: 12-28-2022 ambulatory MD Darby Hamlin Facility:[facility] Start: 12-19-2022 End: 12-20-2022 ambulatory MD Darby Hamlin Facility:[facility] Start: 12-19-2022 End: 12-19-2022 Lab Drop off Darby Hamlin [facility] Start: 12-12-2022 End: 12-13-2022 ambulatory MD Darby Hamlin Facility:[facility] Start: 12-12-2022 End: 12-12-2022 Lab Drop off Darby Hamlin [facility] Start: 11-14-2022 End: 11-15-2022 ambulatory [facility] Start: 11-08-2022 End: 11-09-[address] RORY WEST . Facility:[facility] Start: 11-06-2022 End: 11-07-2022 ambulatory DARBY HAMLIN Facility:[facility] Start: 11-01-2022 End: 11-02-2022 ambulatory DARBY HAMLIN Facility:[facility] Start: 11-01-2022 End: 11-01-2022 ambulatory [facility] Start: 10-18-2022 End: 10-19-2022 ambulatory DARBY KYRIE BOUBACAR Facility:[facility] Start: 10-04-2022 End: 10-05-2022 ambulatory DARBY MITTAL BOUBACAR Facility:[facility] Start: 09-25-2022 End: 09-25-2022 [facility] Start: 09-15-2022 End: 09-16-[address] DOCTOR PÉREZ Facility:[facility] Start: 09-13-2022 End: 09-13-2022 ambulatory PA-C Debbie Villanueva Work Phone: [facility] Work Phone: Start: 09-13-2022 End: 09-13-2022 Departed Referred PA-Cameron Villanueva Work Phone: [facility] [place] Work Phone: Start: 07-17-[address] ANA ROSA REDDING . Facil ity:[facility] Start: 06-20-2022 End: 06-20-2022 ambulatory [facility] Procedures Date Procedure Procedure Detail Performing Clinician Start: 09-28-2023 Antibody screen ANA ROSA HERNANDEZ Comment on above: Order Comment: Speci men Type: BLOOD SPECIMENOrdering Facility: [facility] Address: [address] [place] [address] Performed By: #### T SCR ####CC MAIN BLOOD BANKCLIA [id number] [address] [place] Start: 09-24-2023 Antibody screen ANA ROSA HERNANDEZ Comment on above: Order Comment: Speci men Type: BLOOD SPECIMENOrdering Facility: [facility] Address: [address] [place] [address] Performed By: #### T SCR ####CC MAIN BLOOD BANKCLIA [id number] [address] [place] Start: 09-21-2023 Echocardiography ANA ROSA MANN Start: 09-20-2023 Antibody screen ANA ROSA HERNANDEZ Comment on above: Order Comment: Speci men Type: BLOOD SPECIMENOrdering Facility: [facility] Address: [address] [place] [address] Performed By: #### B BRAADOLPH ####[facility] LABCLIA [id number] [place] [address] [place]#### BBABINT, TSCR ####[facility] BLOOD BANKCLIA [id number] [place] [address] [place] Coronary artery bypass graft Darby Hamlin Comment on above: 2015 Plan of Treatment Date Care Activity Detail Author Start: 03-22-2024 Hemoglobin A1c measurement HbA1C [facility] Start: 07-16-2023 Advance Directive Discussion Advance Directive Discussion [facility] Start: 07-16-2023 Depression Assessment Depression Assessment [facility] Start: 03-16-2023 Influenza vaccination Influenza Vaccine (#1) [facility] Start: 09-13-2022 Superficial Wound Culture Superficial Wound Culture [facility] Start: 10-15-2020 Covid-19 Vaccine (3 - Moderna risk series) Covid-19 Vaccine (3 - Moderna risk series) [facility] Start: 2007 Screening for osteoporosis Bone Density Screening [facility] Start: 2002 RSV Vaccine (1 - 1-dose 60+ series) RSV Vaccine (1 - 1-dose 60+ series) [facility] Start: 1961 Shingrix Vaccine (1 of 2) Shingrix Vaccine (1 of 2) [facility] Start: 1961 Urine microalbumin profile DTaP,Tdap,Td Vaccine (1 - Tdap) [facility] Start: 1960 Hepatitis B surface antibody level LDL Cholesterol [facility] Start: 1952 Diabetic foot examination Diabetic Foot Exam [facility] Start: 1952 Glaucoma screening Dilated Retinal Exam [facility] Start: 1952 Hepatitis B screening Urine Albumin:Creatinine Ratio [facility] Start: 1948 Pneumococcal Vaccine: 65+ (1 of 2 - PCV) Pneumococcal Vaccine: 65+ (1 of 2 - PCV) [facility] Start: 1947 Hemoglobin A1c measurement HbA1C [facility] Immunizations Immunization Date Immunization Notes Care Provider Edgardo longo 09-17-2020 SARS-CoV-2 (COVID-19 ) mRNA-1273 vaccine Darby Hamlin [facility] 08-20-2020 SARS-CoV-2 (COVID-19 ) mRNA-1273 vaccine Darby Hamlin [facility] Payers Date Payer Category Payer Medicare [id number] 2023 Medicare [id number] 1957 Medicare [id number] 1959 Self-pay 1940 Unknown [id number] 2.16.84 0.1.705791.3.579.2.593 1942 Unknown [id number] 2.16.84 0.1.334014.3.579.2.593 1942 Unknown [id number] 2.16.84 0.1.238432.3.579.2.593 1942 Unknown [id number] 2.16.84 0.1.621995.3.579.2.593 1942 Unknown [id number] 2.16.84 0.1.598716.3.579.2.593 1942 Unknown [id number] 2.16.84 0.1.479271.3.579.2.593 1942 Unknown [id number] 2.16.84 0.1.238251.3.579.2.593 1942 Unknown [id number] 2.16.84 0.1.628415.3.579.2.593 1942 Unknown [id number] 2.16.8 40.1.709814.3.579.2.727 1942 Unknown [id number] 2.16.8 40.1.287798.3.579.2.727 1942 Unknown [id number] 2.16.8 40.1.500342.3.579.2.727 1942 Unknown [id number] 2.16.8 40.1.419131.3.579.2.727 1942 Unknown [id number] 2.16.8 40.1.026416.3.579.2.727 1942 Unknown [id number] 2.16.8 40.1.189443.3.579.2.727 1942 Unknown [id number] 2.16.8 40.1.579133.3.579.2.727 1942 Unknown [id number] 2.16.8 40.1.092239.3.579.2.727 1942 Unknown [id number] 2.16.8 40.1.408506.3.579.2.727 1942 Unknown [id number] 2.16.8 40.1.571770.3.579.2.727 1942 Unknown [id number] 2.16.8 40.1.147912.3.579.2.727 1942 Unknown [id number] 2.16.8 40.1.666290.3.579.2.72 Unknown [id number] 2.16.8 40.1.142731.3.579.2.531 Social History Date Type Detail [facility] Work Phone: Start: 1940 Sex Assigned At Female F [facility] Start: 12-12-2022 End: 08-31-2023 Tobacco smoking status Never smoked tobacco (finding) [facility] Comment on above: denies Tobacco smoking status [facility] denies Start: 03-02-2022 End: 09-26-2023 Sex Assigned At Female Haile Adan [facility] Start: 07-03-2012 Tobacco smoking stat us NHIS Ex-smoker [facility] End: 07-03-1962 History of tobacco use Current smoker [facility] End: 07-03-1962 History of tobacco use Cigarette Smoker [facility] Start: 07-03-2012 Tobacco use and exposure Smokeless tobacco non-user [facility] Start: 03-02-2022 End: 09-26-2023 Alcohol intake Current drinker of alcohol (finding) [facility] Start: 03-02-2022 End: 09-26-2023 History of Social function [facility] Start: 1940 Sex Assigned At Not on file [facility] Medical Equipment Procedure Code Equipment Code Equipment Origin al Text Equipment Identifier Dates Test strips, See Instructions, 100 EA, 3, check Blood sugar daily and prn E11.9, [facility] [id number], Supply, 162, cm, 12/12/22 14:53:00 EDT, Height/Length Dosing, 81.6, kg, 12/12/22 14:53:00 EDT, Weight Dosing Start: 12-25-2022 Clinical Notes 06-20-2022 to 10-02-2023 Telephone Encounter - Mariangel Salvador RN - 10/02/2023 4:42 PM EDTTelephone Encounter - Vinh Randolph - 10/02/2023 3:46 PM [facility] 09/26/2023 12:18 PM EDT Note Date & Type Note Facility 10-02-2023 Miscellaneous Notes securemessage to Dr Pedraza and yMrna Justice [phone] stone not been scheduled at for a PET scan and we have no order [facility] for the requested PET scan. Please enter the order into [facility] for scheduling. Thank you in advance. 10-02-[address] Dr [address] Ana Bill to secure message. Reply from Dr Ana Bill Yes I'm seeing her on - not sure why she is getting a PET scan though? She has AML, I can look into it tomorrow! 10-03-23 Secure message from Vinh good morning I sent a telephone encounter for a pet request yesterday it was meant for another patient I was working on at the same time I attached the wrong info I sent a message saying to disregard the request I sent for this patient because it was wrong. This form is used for MAIN CAMPUS APPOINTMENTS ONLY. Is this request for a [facility] [place] PET scan appointment? Yes: Spray Booth Operator: Vinh Randolph Requesting Person (Last Name, First Name): myrna shen Area Code + Phone/Pager: [phone] home , work Who do we call to schedule this appointment? Patient Requesting Staff LACHELLE PEDRAZA Area Code + Phone/Pager: N/A PET Orders (A delay in scheduling will result if the orders are not present at time of review): Internal ADDITIONAL ACTION MAY BE REQUIRED IF PATIENTS OON INSURANCE OR SELF PAY COVERAGE HAS NOT BEEN CLEARED FOR REQUESTED APPOINTMENT. Scheduling: ANYTIME NEXT WEEK OR WEEK AFTER PATIENT HAD TO RESCHEDULE DUE TO BEING SICK What account will this PET appointment be linked to? P/F Type of PET: Oncology: Are there additional diagnostic CT scans required to be done at time of PET scan? No Is the request for a PET MR ? No What account will diagnostic testing appointment be linked to? P/F Will the patient need anesthesia? NO Send requests to P [facility] documented in this encounter [facility] 09-28-2023 Note [facility] 09-27-2023 Note [facility] 09-26-2023 Note [facility] 09-26-2023 History of Present illness Narrative [facility] Refill Assessment Medication(s): Venclexta Patient's current medication list and adherence status to current therapy were reviewed by Specialty Pharmacy clinical pharmacist to identify any new drug interactions or non-compliance to therapy. Therapy continues to be appropriate for disease, patient response, and medical condition. Verification of therapeutic benefit and effectiveness with current therapy was completed. Adverse events, barriers in adherence, and side effects were assessed and addressed if applicable. Will proceed with refill with no changes in therapy - patient progressing towards achieving therapeutic goals based on medication-specific laboratory parameters, disease state markers and outcomes. Design Engineer Products Assessment Patient confirmed: Yes Med/dose confirmed: Yes Supplies needed: No supplies needed Estimated days supply on hand: 2 Copay amount: 0 Payment confirmed: Yes Delivery method: Concrete Engineering Technician Signature required: Required (, Medicaid, patient preference) Delivery address: [place] [address] [facility] Delivery date: 09/27/23 Questions or concerns for the pharmacist?: No [facility] Visit Assessment - Hematology/Oncology: Assessment to use: Refill Vaccination Assessment: Date of influenza vaccination reminder: 09/21/2023 Date of most recent vaccination assessment: 09/21/2023 Treatment Plan Information: Treatment Plan Information: Diagnosis: AML Previous treatment(s): none, newly dx New treatment regimen: Venclexta (venetoclax) + Aza Starting Dose/Titration: - Take 100mg by mouth once daily for 7 days every 28 day cycle - Dose adjustment required: yes - DR for concurrent posaconazole; short cycle due to underlying cytopenias and advanced age Prophylaxis: - Consider allopurinol for TLS prevention Administration: - Administer doses with a meal and water, swallowed whole - No grapefruit, [place] oranges, or star fruit - If a dose is missed and it is within 8 hours of the usual dosing time, administer the missed dose as soon as possible, then resume usual schedule. If >8 hours, do not administer and resume the usual dosing the next day. If the patient vomits following administration of a dose, no additional doses should be administered that day; administer the next prescribed dose at the usual time. Side Effects/Warnings: include but are not limited to BMS, TLS, edema, fatigue, headache, dizziness, hyperglycemia, elevated K, albumin, calcium, sodium, phosphate, AST; muscle pain, joint pain, diarrhea (or constipation), N/V (min-low potential); skin rash, stomatitis, abdominal pain Monitoring: - CBC with diff (throughout treatment) - CMP (including K, uric acid, phos, calcium, sCr) - Tumor burden prior to treatment - S/S infection - Monitor adherence Drug-Drug Interactions: category D interaction with posaconazole (may increase venetoclax concentration) - medication is already appropriately dose reduced Baseline: - CBC with diff: 09/21/23 - hgb 7.8, plt 10k - CMP: 09/21/23 - HBV panel: 09/20/23 Denver Calle RPh documented in this encounter [facility] 09-26-2023 Note [facility] 09-25-2023 Note [facility] 09-24-2023 Note [facility] 09-23-2023 Note [facility] 09-22-2023 Note [facility] 09-22-2023 Note HNO ID: [id number] Author: NOTE, INTERFACE, ? Service: ? Author Type: ? Type: Progress Notes Filed: 09/22/2023 03:36 Note Text: Epic Scheduled Downtime: 09/22/2023 1:00:00 AM to 09/22/2023 3:24:00 AM [facility] 09-21-2023 Note [id number] 09-21-2023 Note [facility] 09-21-2023 Note [facility] 09-20-2023 Note HNO ID: [id number] Author: ?, ?, ? Service: ? Author Type: ? Type: Progress Notes Filed: 09/21/2023 07:13 Note Text: Patient has been enrolled in a new $[id number] yoli for Dx: AML through [facility] 08/21/2023 to 08/20/2024. [facility] 09-20-2023 Note [facility] 09-20-2023 Note [facility] 09-20-2023 Miscellaneous Notes THE [employer] PATIENT ASSISTANCE FORM FOR POSACONAZOLE WAS COMPLETED AND FAXED TO: [phone] FOR CONSIDERATION. RECEIVED CALL FROM INÉS AT [employer] PATIENT [facility] ADVISING THE PATIENT HAS BEEN APPROVED FOR ASSISTANCE WITH POSACONAZOLE, AT NO COST TO THE PATIENTS FOR THE DATES: 09/20/2023 - 07/15/2024. CONTACTED THE PATIENT AND INFORMED OF THE APPROVAL, THE [facility] AND PRESCRIBER INFORMED OF THE APPROVAL FOR ASSISTANCE. documented in this encounter [facility] 09-20-2023 Note [facility] 04-27-2023 Note ID Cardiology - [facility] Subjective Myrna Shen is a 82 y.o. year old female patient being seen for Follow-up Patient Active Problem List Diagnosis Angina pectoris (CMS/HCC) Coronary artery disease of bypass graft of [place] heart with stable angina pectoris (CMS/HCC) Dyspnea Hypertensive disorder Malignant melanoma (CMS/HCC) Tinnitus Persistent atrial fibrillation (CMS/HCC) Acute on chronic heart failure with preserved ejection fraction (CMS/HCC) Hyperlipidemia Anxiety Hx of melanoma of skin Stasis dermatitis Spinal stenosis in cervical region Stage 3a chronic kidney disease (CKD) (CMS/HCC) Uncontrolled type 2 diabetes mellitus with hyperglycemia ([facility]/HCC) Family History Problem Relation Name Age of Onset Coronary artery disease Mother Diabetes Mother Alcohol abuse Father Social History Tobacco Use Smoking status: Never Smokeless tobacco: Never Substance Use Topics Alcohol use: Yes Comment: occasional HPI Myrna is a 82 yo woman who is seen in follow up on hypertension, CAD s/p CABG in 04/2016, paroxysmal atrial fibrillation on eliquis. She previously had melanoma surgery and did well. At a prior visit she complained of a defect in the lower sternum at the site of the sternotomy. The surgical service for opinion for. She reports that this is not bothering her. At visit of 10/16/2016, I increased lisinopril to 10 mg daily for better BP control. She then developed dry cough and this was changed to losartan 50 mg daily but she noticed she has been having hair loss. I changed it to amlodipine 10 mg daily. Her hair loss stopped. She previously was having leg edema and Dr Redding prescribed lasix 20 mg daily and this took care of it. Her BNP was mildly elevated at 278. At visit of 12/01/2020 I added Aldactone due to uncontrolled blood pressure. At visit of 08/29/2021 I added doxazosin due to uncontrolled blood pressure. However, she noticed that after starting doxazosin she has had a diffuse maculopapular rash involving the upper and lower extremities and other areas of her body. We stopped it at last visit. She saw a roaster helper and was treated with prednisone. In October 2022 she developed persistent atrial fibrillation. She was evaluated in our clinic by electrophysiology team and was started on amiodarone. A echocardiogram showed normal ventricular function. Of note she had developed COVID infection at the time of developing atrial fibrillation. at last visit of 03/02/2023 I stopped amiodarone due to side effects. I also reduce amlodipine to 5 mg daily due to lower extremity edema that has not responded to diuretic therapy. Today she reports that following the above changes her leg swelling has resolved completely. She has been feeling great. She denies chest pain or shortness of breath. Review of Systems All other systems reviewed and are negative. Objective Visit Vitals BP 157/73 Pulse 63 Ht 1.626 m (5' 4 ) Wt 79.4 kg (175 lb) SpO2 98% BMI 30.04 kg/m??? Smoking Status Never BSA 1.89 m??? Physical Exam Constitutional: Appearance: She is well-developed. She is not ill-appearing. HENT: Head: Normocephalic and atraumatic. Nose: Nose normal. Eyes: General: No scleral icterus. Pupils: Pupils are equal, round, and reactive to light. Neck: Thyroid: No thyromegaly. Vascular: No JVD. Cardiovascular: Rate and Rhythm: Normal rate and regular rhythm. Pulses: Radial pulses are 0 on the right side and 0 on the left side. Heart sounds: Normal heart sounds. No murmur heard. No friction rub. No gallop. Comments: Ulnar pulses 2+ Pulmonary: Effort: Pulmonary effort is normal. No respiratory distress. Breath sounds: Normal breath sounds. No wheezing or rales. Chest: Chest wall: No tenderness. Abdominal: General: Bowel sounds are normal. There is no distension. Palpations: Abdomen is soft. Tenderness: There is no abdominal tenderness. Musculoskeletal: General: No swelling. Cervical back: Neck supple. Right lower leg: No edema. Left lower leg: No edema. Skin: General: Skin is warm and dry. Neurological: General: No focal deficit present. Mental Status: She is alert and oriented to person, place, and time. Psychiatric: Mood and Affect: Mood normal. Behavior: Behavior is cooperative. Judgment: Judgment normal. Allergies Allergies Allergen Reactions Spironolactone Rash Sal Inhibitors Cough Ascorbic Acid (Vitamin C) Unknown Luzerne And Derivatives Luzerne Bioflavonoids Losartan Other reaction(s): hair loss Medications Current Outpatient Medications: amLODIPine (Norvasc) 5 mg tablet, Take 1 tablet (5 mg) by mouth in the morning., Disp: 90 tablet, Rfl: 3 apixaban (Eliquis) 5 mg tablet, Take 1 tablet (5 mg) by mouth in the morning and at bedtime for 7 days., Disp: 14 tablet, Rfl: 0 aspirin 81 mg EC tablet, Take 1 tablet every day by oral route., Disp: , Rfl: atorva (more content not included)... [facility] 03-02-2023 Note ID Cardiology - [facility] Subjective Myrna Shen is a 82 y.o. year old female patient being seen for Follow-up Patient Active Problem List Diagnosis Angina pectoris (CMS/HCC) Coronary artery disease of bypass graft of [place] heart with stable angina pectoris (CMS/HCC) Dyspnea Hypertensive disorder Malignant melanoma (CMS/HCC) Tinnitus Persistent atrial fibrillation (CMS/HCC) Acute on chronic heart failure with preserved ejection fraction (CMS/HCC) Hyperlipidemia Anxiety Hx of melanoma of skin Stasis dermatitis Spinal stenosis in cervical region Stage 3a chronic kidney disease (CKD) (CMS/HCC) Uncontrolled type 2 diabetes mellitus with hyperglycemia (CMS/HCC) Family History Problem Relation Name Age of Onset Coronary artery disease Mother Diabetes Mother Alcohol abuse Father Social History Tobacco Use Smoking status: Never Smokeless tobacco: Never Substance Use Topics Alcohol use: Yes Comment: occasional HPI Myrna is a 82 yo woman who is seen in follow up on hypertension, CAD s/p CABG in 04/2016, paroxysmal atrial fibrillation on eliquis. She previously had melanoma surgery and did well. At a prior visit she complained of a defect in the lower sternum at the site of the sternotomy. The surgical service for opinion for. She reports that this is not bothering her. At visit of 10/16/2016, I increased lisinopril to 10 mg daily for better BP control. She then developed dry cough and this was changed to losartan 50 mg daily but she noticed she has been having hair loss. I changed it to amlodipine 10 mg daily. Her hair loss stopped. She previously was having leg edema and Dr Redding prescribed lasix 20 mg daily and this took care of it. Her BNP was mildly elevated at 278. At visit of 12/01/2020 I added Aldactone due to uncontrolled blood pressure. At visit of 08/29/2021 I added doxazosin due to uncontrolled blood pressure. However, she noticed that after starting doxazosin she has had a diffuse maculopapular rash involving the upper and lower extremities and other areas of her body. We stopped it at last visit. She saw a roaster helper and was treated with prednisone. In October 2022 she developed persistent atrial fibrillation. She was evaluated in our clinic by electrophysiology team and was started on amiodarone. A echocardiogram showed normal ventricular function. Of note she had developed COVID infection at the time of developing atrial fibrillation. Otherwise she has some shortness of breath on exertion and some occasional leg swelling but no chest pain. She could feel when she reverted to sinus rhythm. Review of Systems All other systems reviewed and are negative. Objective Visit Vitals BP 120/72 (BP Location: Left arm, Patient Position: Sitting, BP Cuff Size: Adult) Pulse 66 Resp 11 Ht 1.651 m (5' 5 ) Wt 79.8 kg (176 lb) SpO2 96% BMI 29.29 kg/m??? Smoking Status Never BSA 1.91 m??? Physical Exam Constitutional: Appearance: She is well-developed. She is not ill-appearing. HENT: Head: Normocephalic and atraumatic. Nose: Nose normal. Eyes: General: No scleral icterus. Pupils: Pupils are equal, round, and reactive to light. Neck: Thyroid: No thyromegaly. Vascular: No JVD. Cardiovascular: Rate and Rhythm: Normal rate and regular rhythm. Pulses: Radial pulses are 0 on the right side and 0 on the left side. Heart sounds: Normal heart sounds. No murmur heard. No friction rub. No gallop. Comments: Bilateral ulnar pulses +2 Pulmonary: Effort: Pulmonary effort is normal. No respiratory distress. Breath sounds: Normal breath sounds. No wheezing or rales. Chest: Chest wall: No tenderness. Abdominal: General: Bowel sounds are normal. There is no distension. Palpations: Abdomen is soft. Tenderness: There is no abdominal tenderness. Musculoskeletal: General: No swelling. Cervical back: Neck supple. Right lower le+ Pitting Edema present. Left lower le+ Pitting Edema present. Skin: General: Skin is warm and dry. Neurological: General: No focal deficit present. Mental Status: She is alert and oriented to person, place, and time. Psychiatric: Mood and Affect: Mood normal. Behavior: Behavior is cooperative. Judgment: Judgment normal. Allergies Allergies Allergen Reactions Spironolactone Rash Sal Inhibitors Cough Ascorbic Acid (Vitamin C) Unknown [place] And Derivatives Luzerne Bioflavonoids Losartan Other reaction(s): hair loss Medications Current Outpatient Medications: apixaban (Eliquis) 5 mg tablet, Take 1 tablet (5 mg) by mouth in the morning and at bedtime for 7 days., Disp: 14 tablet, Rfl: 0 aspirin 81 mg EC tablet, Take 1 tablet every day by oral route., Disp: , Rfl: atorvastatin (Lipitor) 40 mg tablet, TAKE ONE TABLET BY MOUTH DAILY, Disp: 90 tablet, Rfl: 3 furosemide (Lasix) 40 mg tablet, Take 40 mg by mouth once daily as directed., Disp: , R (more content not included)... [facility] 11-23-2022 Note case [facility] 11-14-2022 Note ID Electrophysiology Consult Note Date of Telehealth Visit: 11/14/22 The patient was notified that using 3rd republican telecommunication application (e.g., [employer]) is not HIPPA compliant and may carry some privacy risks. Yes The visit was conducted [id number] with the use of audio and video technology [email or web address] between patient and provider for a virtual visit. Verbal consent to provide and bill this service was obtained on 11/14/22 . No signature was obtained due to the COVID-19 pandemic. Patient Location: Patient Home I spent 22 minutes of total time on the day of the visit. This time was spent preparing for the visit, obtaining and reviewing any outside history/data, taking a history, performing an exam/evaluation, counseling and educating patient/family about the diagnosis and plan, performing medical decision making, referring to and communicating with other health care referrals, independently interpreting results and documenting in the EMR, and coordinating care. Please see the additional documentation in this note for specific details. Reason for visit: Afib, HfpEF HPI: Myrna Shen is a 82 y.o. year old with past medical history of hypertension, CAD s/p CABG 2016 with paroxysmal A-fib postop and has been taking Eliquis, HFpEF. She was sdeen by Viviane previously for A-fib, she had been very fatigued and weak but otherwise hemodynamically stable with no episodes of syncope. She has noticed increased lower extremity swelling and is doubled up on her Lasix for the last 2 days which has improved her swelling. Her Aldactone was stopped recently due to having lab work done to evaluate concerns for lupus and they found she was allergic to held tach down so it was stopped. She was placed on Amio with intent to offer DCCV. EKG: A-fib RVR heart rate 133, she does take metoprolol tartrate 25 mg twice daily. PMH: Past Medical History: Diagnosis Date Arrhythmia Atrial fibrillation (CMS/HCC) Cancer (CMS/HCC) Coronary artery disease Hyperlipidemia Hypertension PSH: Past Surgical History: Procedure Laterality Date CARDIAC CATHETERIZATION 05/08/2016 CORONARY ARTERY BYPASS GRAFT 05/09/2016 SH: Social Determinants of Health Tobacco Use: Low Risk Smoking Tobacco Use: Never Smokeless Tobacco Use: Never Passive Exposure: Not on file Alcohol Use: Not on file Financial Resource Strain: Not on file Food Insecurity: Not on file Transportation Needs: Not on file Physical Activity: Not on file Stress: Not on file Social Connections: Not on file Intimate Partner Violence: Not on file Depression: Not on file Housing Stability: Not on file Allergies: Allergies Allergen Reactions Sal Inhibitors Cough Lu[place] And Derivatives Losartan Other reaction(s): hair loss Weight: No weight available Visit Vitals Smoking Status Never Meds: Current Outpatient Medications on File Prior to Visit Medication Sig Dispense Refill amiodarone (Pacerone) 200 mg tablet Take 2 tablets (400 mg) by mouth in the morning and at bedtime for 14 days, THEN 1 tablet (200 mg) in the morning. 86 tablet 11 amLODIPine (Norvasc) 10 mg tablet Take 1 tablet (10 mg) by mouth in the morning. 90 tablet 3 apixaban (Eliquis) 5 mg tablet Take 1 tablet (5 mg) by mouth in the morning and at bedtime for 7 days. 14 tablet 0 aspirin 81 mg EC tablet Take 1 tablet every day by oral route. atorvastatin (Lipitor) 40 mg tablet Take 40 mg by mouth at bedtime. furosemide (Lasix) 20 mg tablet Take 1 tablet (20 mg) by mouth in the morning. (Patient taking differently: Take 40 mg by mouth in the morning.) 90 tablet 3 metoprolol tartrate (Lopressor) 25 mg tablet Take 1 tablet (25 mg) by mouth in the morning and at bedtime. 180 tablet 3 nitroglycerin (Nitrostat) 0.[address] 1 tablet as needed by sublingual route. predniSONE (Deltasone) 10 mg tablet Take 10 mg by mouth in the morning. No current facility-administered medications on file prior to visit. ROS: Cardio Basic Cardiovascular Symptoms: no lightheadedness, no leg edema, no syncope, no orthopnea, no PND, no claudication, Constitutional Constitutional: no fever, no night sweats, no significant weight gain, no significant weight loss, no exercise intolerance Eyes Eyes: no dry eyes, no irritation, no vision change ENMT Ears: no difficulty hearing, no ear pain Nose: no frequent nosebleeds, Mouth/Throat: no sore throat, no bleeding gums, no snoring, no dry mouth, no mouth ulcers, no oral abnormalities, no teeth problems Respiratory Respiratory: no cough, no wheezing, no coughing up blood, no sleep apnea Musculoskeletal Musculoskeletal: no muscle aches, no muscle weakness, joint pain+, no back pain, no swelling in the extremities Integumentary Skin no rash, no ulcer, no varicosities, no discoloration, no pruritus Neurologic Neurologic: no loss of consciousness, no weakness, no numbness, no seizures, no dizziness, no hea (more content not included)... [facility] 11-02-2022 Note Ordering follow up B MP for lasix increase from 20mg to 40mg Patient called, her symptoms have improved regarding LE edema No GALVAN, SOB. [facility] 11-01-2022 Note - [id number] at le ast 5 for age, gender, hypertension, HFpEF, CAD -Continue Eliquis 5 mg twice daily -We will start amiodarone loading 40 mg twice daily for 14 days and then 20 mg daily -I instructed patient if she begins to feel worse she is to report to ER. I did give her the option of going to the ER versus outpatient treatment she opted for outpatient treatment at this time. I agreed with this considering she is hemodynamically stable -She states in the past remembers being told she had a 3-second pause when she flipped from A-fib to normal rhythm after surgery, this makes me concerned for sinus node dysfunction she states it was not any more than 3 seconds so at this time I will hold off on 30-day monitor patient instructed to watch for syncopal/sinus node dysfunction symptoms as lightheadedness, dizziness, syncope and if the symptoms occur she is to report to the ER [facility] 11-01-2022 Note - Blood pressures co ntrolled today, 125/88 -Continue Norvasc 10 mg, Toprol tartrate 25 mg twice daily [facility] 11-01-2022 Note - S/p CABG 2016 -Stable at this time, continue medication aspirin 81 mg, Lipitor 40 mg, as needed nitro which she has not needed [facility] 11-01-2022 Note - HFpEF, NYHA II, mi xed ischemic and nonischemic cardiomyopathy -She has noticed increasing LE edema and is now taking Lasix 40 mg daily, I will have her continue this -Continue GDMT: Toprol tartrate 25 mg twice daily, Lasix 40 mg daily -Aldactone was stopped due to allergy testing finding she was allergic to the medication -States she cannot afford anything like Farxiga, she is allergic to SAL/ARB [facility] 11-01-2022 Note Patient here to disc uss afib management. She had echo 10/18/2022. C/o SOB and LE edema. She has been doubling her lasix to 40mg daily the past few days. She is currently on second round of steroid for a rash per dermatology. C/o blurred vision, muscle weakness, and palpitations. Review of Systems Eyes: Positive for blurred vision. Cardiovascular: Positive for dyspnea on exertion, leg swelling and palpitations. Skin: Positive for rash. Musculoskeletal: Positive for arthritis, back pain, joint pain, muscle weakness and myalgias. Neurological: Positive for light-headedness and weakness. All other systems reviewed and are negative. [facility] 11-01-2022 Note [facility] Electrophysiology Consult Note Reason for visit: Afib, HfpEF HPI: Myrna Shen is a 82 y.o. year old with past medical history of hypertension, CAD s/p CABG 2016 with paroxysmal A-fib postop and has been taking Eliquis, HFpEF She is here because she states for the last month she felt she has been in A-fib, she had been very fatigued and weak but otherwise hemodynamically stable with no episodes of syncope. She has noticed increased lower extremity swelling and is doubled up on her Lasix for the last 2 days which has improved her swelling. Her Aldactone was stopped recently due to having lab work done to evaluate concerns for lupus and they found she was allergic to held tach down so it was stopped. EKG today shows A-fib RVR heart rate 133, she does take metoprolol tartrate 25 mg twice daily. I discussed with her because of how she feels it would be reasonable if she wanted to go to the ER but she opted to treat outpatient. I found her decision reasonable due to being hemodynamically stable despite being symptomatic of her rhythm. I did instruct her if her conditions worsen in terms of shortness of breath and lower extremity swelling that she is to call 911 or report to ER. Previous per Dr. Purcell 09/25/22 SUDHIR Norris is a 82 yo woman who is seen in follow up on hypertension, CAD s/p CABG in 04/2016, paroxysmal atrial fibrillation on eliquis. She previously had melanoma surgery and did well. At a prior visit she complained of a defect in the lower sternum at the site of the sternotomy. The surgical service for opinion for. She reports that this is not bothering her. At visit of 10/16/2016, I increased lisinopril to 10 mg daily for better BP control. She then developed dry cough and this was changed to losartan 50 mg daily but she noticed she has been having hair loss. I changed it to amlodipine 10 mg daily. Her hair loss stopped. She previously was having leg edema and Dr Redding prescribed lasix 20 mg daily and this took care of it. Her BNP was mildly elevated at 278. At visit of 12/01/2020 I added Aldactone due to uncontrolled blood pressure. At visit of 08/29/2021 I added doxazosin due to uncontrolled blood pressure. Today she reports that she has had adequate blood pressure. Her systolic at home is around 120. It is mildly elevated in the office today. She has no chest pain and no significant shortness of breath. She has no palpitations. No lower extremity edema. However, she noticed that after starting doxazosin she has had a diffuse maculopapular rash involving the upper and lower extremities and other areas of her body. We stopped it at last visit. She saw a roaster helper and was treated with prednisone. Otherwise she has some shortness of breath on exertion and some occasional leg swelling but no chest pain. PMH: Past Medical History: Diagnosis Date Arrhythmia Atrial fibrillation ([facility]) Cancer ([facility]) Coronary artery disease Hyperlipidemia Hypertension PSH: Past Surgical History: Procedure Laterality Date CARDIAC CATHETERIZATION 05/08/2016 CORONARY ARTERY BYPASS GRAFT 05/09/2016 SH: Social Determinants of Health Tobacco Use: Low Risk Smoking Tobacco Use: Never Smokeless Tobacco Use: Never Passive Exposure: Not on file Alcohol Use: Not on file Financial Resource Strain: Not on file Food Insecurity: Not on file Transportation Needs: Not on file Physical Activity: Not on file Stress: Not on file Social Connections: Not on file Intimate Partner Violence: Not on file Depression: Not on file Housing Stability: Not on file Allergies: Allergies Allergen Reactions Sal Inhibitors Cough Lu[place] And Derivatives Losartan Other reaction(s): hair loss Weight: 81.6kg Visit Vitals BP 125/88 (BP Location: Left arm, Patient Position: Sitting) Pulse (!) 134 Ht 1.651 m (5' 5 ) Wt 81.6 kg (180 lb) SpO2 96% BMI 29.95 kg/m??? Smoking Status Never BSA 1.93 m??? Meds: Current Outpatient Medications on File Prior to Visit Medication Sig Dispense Refill amLODIPine (Norvasc) 10 mg tablet Take 1 tablet (10 mg) by mouth in the morning. 90 tablet 3 apixaban (Eliquis) 5 mg tablet Take 1 tablet (5 mg) by mouth in the morning and at bedtime for 7 days. 14 tablet 0 aspirin 81 mg EC tablet Take 1 tablet every day by oral route. atorvastatin (Lipitor) 40 mg tablet Take 40 mg by mouth at bedtime. furosemide (Lasix) 20 mg tablet Take 1 tablet (20 mg) by mouth in the morning. (Patient taking differently: Take 40 mg by mouth in the morning.) 90 tablet 3 metoprolol tartrate (Lopressor) 25 mg tablet Take 1 tablet (25 mg) by mouth in the morning and at bedtime. 180 tablet 3 nitroglycerin (Nitrostat) 0.[address] 1 tablet as needed by sublingual route. predniSONE ( (more content not included)... [facility] 09-25-2022 Note ID Cardiology - [facility] Subjective Myrna Shen is a 82 y.o. year old female patient being seen for 3 mo follow up Coronary Artery Disease, Hypertension, and Atrial Fibrillation She had labs 2 weeks ago. Denies chest pain, SOB, and bleeding on Eliquis. Patient Active Problem List Diagnosis Angina pectoris (CMS/HCC) Coronary artery disease of bypass graft of [place] heart with stable angina pectoris (CMS/HCC) Dyspnea Hypertensive disorder Malignant melanoma (CMS/HCC) Tinnitus Paroxysmal A-fib (CMS/HCC) Family History Problem Relation Name Age of Onset Coronary artery disease Mother Diabetes Mother Alcohol abuse Father Social History Tobacco Use Smoking status: Never Smokeless tobacco: Never Substance Use Topics Alcohol use: Yes Comment: occasional HPI Myrna is a 82 yo woman who is seen in follow up on hypertension, CAD s/p CABG in 04/2016, paroxysmal atrial fibrillation on eliquis. She previously had melanoma surgery and did well. At a prior visit she complained of a defect in the lower sternum at the site of the sternotomy. The surgical service for opinion for. She reports that this is not bothering her. At visit of 10/16/2016, I increased lisinopril to 10 mg daily for better BP control. She then developed dry cough and this was changed to losartan 50 mg daily but she noticed she has been having hair loss. I changed it to amlodipine 10 mg daily. Her hair loss stopped. She previously was having leg edema and Dr Redding prescribed lasix 20 mg daily and this took care of it. Her BNP was mildly elevated at 278. At visit of 12/01/2020 I added Aldactone due to uncontrolled blood pressure. At visit of 08/29/2021 I added doxazosin due to uncontrolled blood pressure. Today she reports that she has had adequate blood pressure. Her systolic at home is around 120. It is mildly elevated in the office today. She has no chest pain and no significant shortness of breath. She has no palpitations. No lower extremity edema. However, she noticed that after starting doxazosin she has had a diffuse maculopapular rash involving the upper and lower extremities and other areas of her body. We stopped it at last visit. She saw a roaster helper and was treated with prednisone. Otherwise she has some shortness of breath on exertion and some occasional leg swelling but no chest pain. Review of Systems Cardiovascular: Positive for dyspnea on exertion and leg swelling. Skin: Positive for rash. Musculoskeletal: Positive for arthritis, back pain, joint pain and myalgias. All other systems reviewed and are negative. Objective Visit Vitals BP 132/71 (BP Location: Left arm, Patient Position: Sitting) Pulse 70 Ht 1.651 m (5' 5 ) Wt 79.4 kg (175 lb) SpO2 98% BMI 29.12 kg/m??? Smoking Status Never BSA 1.91 m??? Physical Exam Constitutional: Appearance: She is well-developed. She is not ill-appearing. HENT: Head: Normocephalic and atraumatic. Nose: Nose normal. Eyes: General: No scleral icterus. Pupils: Pupils are equal, round, and reactive to light. Neck: Thyroid: No thyromegaly. Vascular: No JVD. Cardiovascular: Rate and Rhythm: Normal rate and regular rhythm. Pulses: Radial pulses are 2+ on the right side and 2+ on the left side. Heart sounds: Normal heart sounds. No murmur heard. No friction rub. No gallop. Pulmonary: Effort: Pulmonary effort is normal. No respiratory distress. Breath sounds: Normal breath sounds. No wheezing or rales. Chest: Chest wall: No tenderness. Abdominal: General: Bowel sounds are normal. There is no distension. Palpations: Abdomen is soft. Tenderness: There is no abdominal tenderness. Musculoskeletal: General: No swelling. Cervical back: Neck supple. Skin: General: Skin is warm and dry. Neurological: General: No focal deficit present. Mental Status: She is alert and oriented to person, place, and time. Psychiatric: Mood and Affect: Mood normal. Behavior: Behavior is cooperative. Judgment: Judgment normal. Allergies Allergies Allergen Reactions Sal Inhibitors Cough [place] And Derivatives Losartan Other reaction(s): hair loss Medications Current Outpatient Medications: amLODIPine (Norvasc) 10 mg tablet, Take 1 tablet (10 mg) by mouth in the morning., Disp: 90 tablet, Rfl: 3 apixaban (Eliquis) 5 mg tablet, Take 1 tablet (5 mg) by mouth in the morning and at bedtime for 7 days., Disp: 14 tablet, Rfl: 0 aspirin 81 mg EC tablet, Take 1 tablet every day by oral route., Disp: , Rfl: atorvastatin (Lipitor) 40 mg tablet, Take 40 mg by mouth at bedtime., Disp: , Rfl: furosemide (Lasix) 20 mg tablet, Take 1 tablet (20 mg) by mouth in the morning., Disp: 90 tablet, Rfl: 3 metoprolol tartrate (Lopressor) 25 mg tablet, Take 1 tablet (25 mg) by mouth in the morning and at bedtime., Disp: 180 tablet, Rfl: 3 nitroglycerin (Nitrostat) 0.4 mg SL tablet, Place 1 tablet as neede (more content not included)... [facility] 06-20-2022 Note Hypertension stable but borderline high -she will take readings at home and send them to us, she states she is normally lower at home -continue medications: norvasc, lasix, metoprolol and aldactone -will order yearly labs for follow up [facility] 06-20-2022 Note -continue aspirin, l asix, lopressor, aldactone -she still has sternal abnormality s/p sternotomy from CABG...she would like to not intervene and continue with monitor -watch for worsening of sternal gap, abscess [facility] 06-20-2022 Note Patient here for 6 m o follow up CAD, PAF, and hypertension. LE edema is intermittent. Denies chest pain and bleeding on Eliquis. SOB w/ exertion remains stable and unchanged. No recent labs. Review of Systems Cardiovascular: Positive for dyspnea on exertion. Skin: Positive for rash. Musculoskeletal: Positive for arthritis, back pain, joint pain and myalgias. All other systems reviewed and are negative. [facility] 06-20-2022 Note [facility] CARDIOLOGY PROGR ESS NOTE HPI: Myrna Shen is a 81 y.o. female here for Coronary Artery Disease, Atrial Fibrillation, and Hypertension Myrna is a 81-year-old female who presented to clinic for follow-up. She states since her last visit she has not had headaches, lightheadedness, palpitations, chest pain, or lower extremity edema. She did state she gets some lower extremity edema in the heat but has not had any in the last couple months. She would like to have labs done just to follow-up. She states she checks her blood pressure at home and is typically in the 120s. She states her rash continues to persist, she was seen by roaster helper and they believe this could be autoimmune. She still has her sternal abnormality which has not bothered her, caused her pain, and she also denies any drainage or formation of any sort of abscess around the site. HPI per gali 11/2021: Myrna is seen in follow up on hypertension, CAD s/p CABG in 04/2016, paroxysmal atrial fibrillation on eliquis. She is a 81-year-old woman. At visit of 10/16/2016, I increased lisinopril to 10 mg daily for better BP control. She then developed dry cough and this was changed to losartan 50 mg daily but she noticed she has been having hair loss. I changed it to amlodipine 10 mg daily. Her hair loss stopped. She previously had melanoma surgery and did well. At a prior visit she complained of a defect in the lower sternum at the site of the sternotomy. The surgical service for opinion for. She reports that this is not bothering her. She previously was having leg edema and Dr Redding prescribed lasix 20 mg daily and this took care of it. Her BNP was mildly elevated at 278. At visit of 12/01/2020 I added Aldactone due to uncontrolled blood pressure. At visit of 08/29/2021 I added doxazosin due to uncontrolled blood pressure. Today she reports that she has had adequate blood pressure. Her systolic at home is around 120. It is mildly elevated in the office today. She has no chest pain and no significant shortness of breath. She has no palpitations. No lower extremity edema. However, she noticed that after starting doxazosin she has had a diffuse maculopapular rash involving the upper and lower extremities and other areas of her body. Prior testing: Blood testing 08/27/2021: Cholesterol 153, triglycerides 79, HDL 47, LDL 90. K 4.4. BUN 18. Cr 0.76. Blood testing 01/12/2021: HbA1c 5.9, cholesterol 165, triglycerides 90, HDL 51, LDL 96. Blood testing 12/17/2020: BMP within normal limits, CBC within normal limits. Blood testing 06/18/2018: LDL 92, otherwise ok. No change since visit of 08/09/2016: She was initially referred from Dr Redding's office for chest pain. She is a 76 yo lady who was evaluated for unstable angina and cath on 05/08/2016 showed severe three vessel disease. She underwent CABG on 05/09/2016: MONTE to the LAD, left radial artery graft to the diagonal branch of the LAD, right radial artery graft to the OM, left greater saphenous vein graft to the RCA. She did well. She is back [facility] with no chest pain and no issues. Post operatively she developed atrial fibrillation and was started on eliquis. She is an exsmoker stopped 50 years ago. She has history of hypertension on treatment for many years. Recent blood testing showed normal CBC, Chem, TSH, and LDL 158. She has strong family history of cardiac disease (mother and mother side of the family). She has history of melanoma s/p lymph node dissection. Echocardiogram 05/02/2016: Global left ventricular systolic function is normal (Visually estimated EF 60%). Mild left ventricular hypertrophy. Normal right ventricular systolic function. Doppler studies suggest normal right sided pressures. No significant valvular abnormalities Patient Active Problem List Diagnosis Angina pectoris (CMS/HCC) Coronary artery disease of bypass graft of [place] heart with stable angina pectoris (CMS/HCC) Dyspnea Hypertensive disorder Malignant melanoma (CMS/HCC) Tinnitus Paroxysmal A-fib (CMS/HCC) Review of Systems Constitutional: Negative for activity change and fatigue. Respiratory: Negative for chest tightness and shortness of breath. Cardiovascular: Negative for chest pain, palpitations and leg swelling. Gastrointestinal: Negative for nausea. Neurological: Negative for dizziness, syncope, light-headedness and headaches. All other systems reviewed and are negative. Visit Vitals Ht 1.651 m (5' 5 ) BMI 32.28 kg/m??? Smoking Status Never BSA 2.01 m??? Allergies Allergen Reactions Sal Inhibitors Cough [place] And Derivatives Losartan Other reaction(s): hair loss Medications: Current Outpatient Medications on File Prior to Visit Medication Sig Dispense Refill apixaban (Eliquis) 5 mg tablet Take 1 tablet (5 mg) by mouth in the morning and at bedtime for 7 days. 14 tablet 0 amLODIPine (Norvasc) 10 mg tablet Take 1 tablet by mouth in (more content not included)... 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 Acute myeloid leukemia, without mention of having achieved remission documented in this encounter [facility] Narrative No data available for this section [facility] No data available for this section [facility] No data available for this section [facility] Summary Purpose Family History No Family History Records FoundNo Family History Records Found No data available for this section No Family History Records FoundNo Family History Records FoundNo Family History Records Found Advance Directives No Advanced Directives Records Found Date Activated Date Inactivated Comments 09/21/2023 10:03 AM 09/29/2023 4:40 PM Question Answer Comments DNR Order Discussed With: Patient Date Activated Date Inactivated Comments 09/21/2023 10:03 AM Additional Source Comments Care Teams (unrecognized sec tion and content) Team Status: Inactive Member Role Status Dates Debbie Villanueva PA-C Attending Provider Active 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 Start Date End Date Ana Rosa Redding MD [address] [place] [address] PCP - General Family Medicine 07/03/12 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 Start Date End Date Ana Rosa Redding MD [address] [place] [address] PCP - General Family Medicine 07/03/12 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 Start Date End Date Ana Rosa Redding MD [address] [place] [address] PCP - General Family Medicine 07/03/12 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 Start Date End Date Ana Rosa Redding MD [address] [place] [address] PCP - General Family Medicine 07/03/12 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 Start Date End Date Ana Rosa Redding MD [address] [place] [address] PCP - General Family Medicine 07/03/12 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 Start Date End Date Ana Rosa Redding MD [address] [place], [facility] PCP - General Family Medicine 07/03/12 Goals (unrecognized section and content) Goals may be documented in a n alternate section No data available for this section No data available for this section No data available for this section INFORMATION SOURCE (unrecogn ized section and content) DATE CREATED AUTHOR 11/13/2022 [facility] DATE CREATED AUTHOR AUTHOR'S ORGANIZ ATION 04/29/2023 [facility] DATE CREATED AUTHOR AUTHOR'S ORGANIZ ATION 09/30/2023 [facility] DATE CREATED AUTHOR AUTHOR'S ORGANIZ ATION 10/07/2023 [facility] DATE CREATED AUTHOR AUTHOR'S ORGANIZ ATION 10/10/2023 [facility] Source Comments (unrecognize d section and content) In the event this informatio n is protected by the Federal Confidentiality of Alcohol and Drug Abuse Patient Records regulations: The Federal rules restrict any use of the information to criminally investigate or prosecute any alcohol or drug abuse patient.[facility] the event this information is protected by the Federal Confidentiality of Alcohol and Drug Abuse Patient Records regulations: The Federal rules restrict any use of the information to criminally investigate or prosecute any alcohol or drug abuse patient.[facility] the event this information is protected by the Federal Confidentiality of Alcohol and Drug Abuse Patient Records regulations: The Federal rules restrict any use of the information to criminally investigate or prosecute any alcohol or drug abuse patient.[facility] the event this information is protected by the Federal Confidentiality of Alcohol and Drug Abuse Patient Records regulations: The Federal rules restrict any use of the information to criminally investigate or prosecute any alcohol or drug abuse patient.[facility] the event this information is protected by the Federal Confidentiality of Alcohol and Drug Abuse Patient Records regulations: The Federal rules restrict any use of the information to criminally investigate or prosecute any alcohol or drug abuse patient.[facility] the event this information is protected by the Federal Confidentiality of Alcohol and Drug Abuse Patient Records regulations: The Federal rules restrict any use of the information to criminally investigate or prosecute any alcohol or drug abuse patient.[facility] the event this information is protected by the Federal Confidentiality of Alcohol and Drug Abuse Patient Records regulations: The Federal rules restrict any use of the information to criminally investigate or prosecute any alcohol or drug abuse patient.[facility] Reason for Visit (unrecogniz ed section and content) Reason Comments Research IRB 5024: Collection of Blood & Bone Marrow from [employer] Volunte[employer] & Patients for Research Purposes Reason Onset Date Comments Refill Request 09/20/2023 Reason Comments Medication Assistance Program [facility]; APPROVED FOR DATES: 09/20/2023 - 07/15/2024 Reason Onset Date Comments [facility] Oral Oncology/hematology - Treatment Referra l 09/20/2023 [employer] Insurance Authorization 09/20/2023 PA Not R equired Reason Onset Date Comments Refill Request 09/26/2023 Reason Onset Date Comments [facility] Oral Oncology/hematology - Medication Refill 09/26/2023 [employer] Reason Comments Opened In Error sent on incorrect pt FOR RECORDS PERTAINING TO PATIENTS WHO ARE OR HAVE BEEN ENROLLED IN A CHEMICAL DEPENDENCY/SUBSTANCEABUSE PROGRAM, SOME INFORMATION MAY BE OMITTED. This clinical summary was aggregated from multiple sources. Caution should be exercised in using it in the provision of clinical care. This summary normalizes information from multiple sources, and as a consequence, information in this document may materially change the coding, format and clinical context of patient data. In addition, data may be omitted in some cases. CLINICAL DECISIONS SHOULD BE BASED ON THE PRIMARY CLINICAL RECORDS. [facility]. provides no warranty or guarantee of the accuracy or completeness of information in this document.
[2023-10-11] MEDS: ACYCLOVIR 200 MG CAPSULE 400 MG PO (20:35)
[2023-10-11] MEDS: METOPROLOL TARTRATE 25 MG TABLET PO (20:36)
[2023-10-11 20:45] LABS: Glucometer 131 mg/dL (74-106)
[2023-10-12] VITALS (28 sets, daily range): BP systolic 100–159; BP diastolic 50–76; PULSE 63–86; TEMP 36.3–36.9; O2SAT 94–98; BMI 28.2
[2023-10-12] MEDS: ACETAMINOPHEN 325 MG TABLET 650 MG PO (04:12)
[2023-10-12 05:16] LABS: Hemoglobin 7.1 g/dL (12.0-16.0); Lymphocytes Absolute Auto 0.4 10^3/uL (1.2-3.8); Lymphocytes Percent Auto 90.9 % (20.5-60.0); Mean Corpuscular HGB Conc 33.6 g/dL (29.9-35.2); Mean Corpuscular Hemoglobin 28.7 pg (26.7-34.0); Mean Corpuscular Volume 85.4 fL (81.0-99.0); Mean Platelet Volume 9.9 fL (9.5-13.5); Monocytes Percent Auto 9.1 % (1.7-12.0); Red Blood Count 2.47 10^6/uL (4.20-5.40)
[2023-10-12 05:18] LABS: BUN Creatinine Ratio 20.7; Calcium 8.1 mg/dL (8.5-10.1); Carbon Dioxide 25.3 mmol/L (21.0-32.0); Chloride 107 mmol/L (98-107); Estimated GFR (African America >60 (>=60); Estimated GFR (Non-African Ame >60 (>=60); Glucose 115 mg/dL (74-106); Potassium 3.3 mmol/L (3.5-5.1); Sodium 141 mmol/L (136-145)
[2023-10-12] MEDS: CEFTAZIDIME 2,000 MG in 0.9 % SODIUM CHLORIDE 100 ML 200 MG IV ×2 (05:31→20:39)
[2023-10-12] MEDS: 0.9 % SODIUM CHLORIDE 250 ML IV.SOLN IV (05:31)
[2023-10-12] MEDS: METOPROLOL TARTRATE 25 MG TABLET PO (05:32)
[2023-10-12 05:40] LABS: White Blood Count 0.4 10^3/uL (4.0-11.0)
[2023-10-12 05:41] LABS: Hematocrit 21.1 % (36.0-48.0)
[2023-10-12 05:42] LABS: Platelet Count 10 10^3/uL (150-450)
[2023-10-12 07:42] LABS: Magnesium 1.8 mg/dL (1.8-2.4)
[2023-10-12 07:52] LABS: Glucometer 124 mg/dL (74-106)
[2023-10-12 07:59] LABS: Troponin I High Sensitivity 1217.3 pg/mL (4.0-51.3)
--- NOTE | 2023-10-12 08:05 | CA_ITS ---
Patient Name: DIANA HINOJOSA MR#: [id number] : 1940 Exam Date: 10/12/2023 Ordering Doctor: DR Armani Tapia . ECHOCARDIOGRAM REPORT PROCEDURE: CA ECHO DOPPLER COMPLETE INDICATIONS: Elevated TROP and BNP, CABGx4, leukemia (AML) - chemotherapy, hypertension, diabetes COMPARISON: None. DESCRIPTION: COMPLETE ECHOCARDIOGRAM Real-time transthoracic echocardiography with 2D, M-mode, spectral and color flow Doppler performed. QUALITY: Technical quality was good. 63 , 158#, BSA 1.75 m2, BP 125/72 LEFT VENTRICLE: Normal chamber size. Moderately increased left ventricular wall thickness. LV EF: Global left ventricular systolic function is low normal limits; visually estimated ejection fraction is 50 to 55%. Unable to assess regional wall motion abnormalities. Calculated ejection fraction is 49%. DIASTOLIC: Diastolic function is indeterminate. ATRIAL SEPTUM: Visually appears intact. LEFT ATRIUM: Severe dilatation. RIGHT ATRIUM: Mild dilatation. RIGHT VENTRICLE: Normal chamber size. Right ventricular systolic function appears reduced. TRICUSPID VALVE: Normal mobility and thickness. No stenosis with mild regurgitation. Doppler studies reveal mildly (35-45) elevated right sided pressures. RVSP 43 mmHg MITRAL VALVE: Mildly thickened with normal mobility. No evidence of mitral valve stenosis. Moderate mitral annular calcification. Moderate mitral regurgitation. AORTIC VALVE: Normal trileaflet appearance. Thickened aortic valve. Normal leaflet mobility. No evidence of aortic valve stenosis. No aortic regurgitation. AORTIC ROOT: Normal diameter and appearance. PULMONIC VALVE: Normal thickness and mobility. No stenosis. Trivial regurgitation. PERICARDIUM: No evidence of pericardial effusion. IVC: IVC is normal in size, does not fully collapse. CONCLUSION: 1. Global left ventricular systolic function appears to be low normal limits; ejection fraction is 50 to 55% 2. Normal right ventricular size with reduced systolic function 3. Biatrial enlargement 4. Diastolic function is indeterminate 5. Moderately increased left ventricular wall thickness 6. Mild tricuspid regurgitation; mildly elevated right ventricular systolic pressure 7. Moderate mitral regurgitation Adult Echocardiography Procedure Report Left Ventricle LVEDD (3.7 - 5.6 cm): 4.04 cm LVESD (2.2 - 4.0 cm): 3.50 cm LVIVS thickness (0.6 - 1.2 cm): 1.36 cm LVPW thickness (0.5 - 1.0 cm): 0.88 cm e': 0.14 m/s E - e': 8.55 LVOT Max Gradient: 7.58 mm[Hg] LVOT Area (cm2): 1.38 m/s Peak Velocity (LVOT): 1.38 m/s Mean Velocity (LVOT): 0.95 m/s LVOT Diameter 2.02 cm Left Atrium LA Volume Index (2D A2C): 49.87 ml/m2 Left Atrium Systolic Dimension: 3.80 cm Mitral Valve MV E to A Ratio: 1.67 Mitral Valve A-Wave Peak Velocity: 0.71 m/s Mitral Valve E-Wave Peak Velocity: 1.19 m/s Right Ventricle Aorta AO Root Diam: 3.09 cm Ascending Ao Diam: 2.85 cm Aortic Valve AoV Area (Peak Derick): 2.17 cm2, 2.17 cm2 AoV Area (VTI): 2.49 cm2, 2.49 cm2 Peak Velocity(Antegrade Flow): 2.03 m/s Peak Gradient(Antegrade Flow): 16.55 mm[Hg] Mean Velocity(Antegrade Flow): 1.14 m/s Mean Gradient(Antegrade Flow): 6.44 mm[Hg] Velocity Time Integral: 38.04 cm Tricuspid Valve Peak Velocity (Regurgitant Flow): 2.27 m/s, 2.94 m/s Pulmonic Valve Mean Gradient: 1.53 mm[Hg] Mean Velocity: 0.59 m/s Peak Velocity: 0.81 m/s, 0.85 m/s Peak Gradient: 2.65 mm[Hg], 2.89 mm[Hg] Right Atrium Right Atrium Systolic Pressure: 43.07 ml, 43.07 ml Dictated by: Efra Alexander M.D. on 10/12/2023 at 10:35 Approved by: Efra Alexander M.D. on 10/12/2023 at 10:40
--- NOTE | 2023-10-12 08:13 | P.HP_ITS ---
HPI H&P: HPI History of Present Illness Chief complaint: poss infection neutropenic fever Narrative: Presented to the emergency room with neutropenic fevers. No fevers at home, highest 1 here was 100.3. Number with neutropenia patient was admitted to inpatient status Opioid HPI Opioid Management Most Recent Opioid Data: Last Pain Scale 5 10/12/23 09:00 Last Pain Assessment 10/12/23 10:00 Last MAR Pain Assessment 10/12/23 05:41 Last ORT Total Score 0 10/11/23 18:14 Last ORT Risk Category Low Risk 10/11/23 18:14 Review of Systems ROS Status of ROS 10 or more systems reviewed and unremark able except as noted in history and below [facility] Medical History (Updated 10/11/23 @ 18:07 by Bonny Jaramillo) AML (acute myeloblastic leukemia) ?C92.00 - Acute myeloblastic leukemia, not having achieved remission (ICD-10) Malignancy ?C80.1 - Malignant (primary) neoplasm, unspecified (ICD-10) A-fib ?I48.91 - Unspecified atrial fibrillation (ICD-10) HTN (hypertension) ?I10 - Essential (primary) hypertension (ICD-10) CAD (coronary artery disease) ?I25.10 - Atherosclerotic heart disease of [place] coronary artery without angina pectoris (ICD-10) Hyperlipidemia ?E78.5 - Hyperlipidemia, unspecified (ICD-10) DM2 (diabetes mellitus, type 2) ?E11.9 - Type 2 diabetes mellitus without complications (ICD-10) Surgical History (Updated 09/19/23 @ 12:34 by Ila Barry NP) S/P CABG x 4 ?Z95.1 - Presence of aortocoronary bypass graft (ICD-10) Family History (Updated 10/11/23 @ 18:08 by Bonny Jaramillo) Mother Family history of CHF (congestive heart failure) Social History (Updated 10/11/23 @ 18:09 by Bonny Jaramillo) Within the past year, how often did you have a drink containing alcohol: monthly or less Within the past year, how many standard drinks containing alcohol did you have on a typical day: 1 or 2 Within the past year, how often did you have six or more drinks on one occasion: never Total score: 0 Score interpretation: A score less than 3 is consistent with normal alcohol consumption. Smoking status: Never smoker Non-prescribed substance use: denies use Previous occupational history: retired Highest level of school completed/degree received: some college, no degree Are you now , , , , never or living with a partner: In a typical week, how many times do you talk on the telephone with family, friends, or neighbors: 3 or more times per week How often do you get together with friends or relatives: 3 or more times per week How often do you attend yazidism or sikhism services: never Do you belong to any clubs or organizations such as yazidism groups unions, [employer] or [employer] groups, or school groups: no Total score: 2 Score interpretation: A score of greater than or equal to 2 indicates the lowest level of social isolation. Little interest or pleasure in doing things: several days Feeling down, depressed, or hopeless: several days Feel stressed/tense/nervous/anxious/difficulty sleeping: to some extent Life stressor details: cancer diagnosis Do you think of yourself as: straight/heterosexual Gender Identity: female Meds Home Medications and Allergies Home Medications ?Medication ?Instructions ?Recorded ?Confirmed ?Type metoprolol tartrate 25 mg tablet 25 mg PO Q12H 09/18/23 10/11/23 History acyclovir 400 mg tablet 400 mg PO Q12H 10/11/23 10/11/23 History allopurinol 300 mg tablet 300 mg PO DAILY 10/11/23 10/11/23 History alprazolam 0.5 mg tablet 0.5 mg PO Q12H PRN anxiety 10/11/23 10/11/23 History levofloxacin 500 mg tablet 500 mg PO Q24H 10/11/23 10/11/23 History posaconazole 100 mg tablet,delayed 300 mg PO Q24H 10/11/23 10/11/23 History release potassium chloride 20 mEq 20 meq PO DAILY 10/11/23 10/11/23 History tablet,extended release venetoclax 100 mg tablet 100 mg PO Q24H 10/11/23 10/11/23 History (Venclexta) Allergies Allergy/AdvReac Type Severity Reaction Status Date / Time ORANGES AdvReac Uncoded 10/11/23 15:49 Exam Constitutional Vital Signs, click to edit/add: Last Vital Signs Temp 97.9 F 10/12/23 05:44 Pulse 69 10/12/23 05:59 Resp 20 10/12/23 05:44 BP 125/72 10/12/23 05:44 Pulse Ox 94 L 10/12/23 05:44 O2 Del Method Room Air 10/12/23 05:44 Common normals: no apparent distress, oriented x3, alert and well nourished General appearance: cooperative and other (Pale) Nutritional appearance: overweight Orientation/consciousness: Yes awake HENMT Common normals: normocephalic, head/scalp atraumatic, hearing grossly normal bilaterally, external nose normal and moist oral mucous membranes Eye Common normals: PERRL, EOMs intact bilaterally, conjunctivae normal and no scleral icterus Alignment: alignment normal Eyelid: eyelids normal Neck & C-Spine Common normals: full ROM, supple and no JVD Chest Common normals: inspection of chest normal Chest: symmetrical chest wall rise Respiratory Common normals: normal respiratory effort, no retractions, no use of accessory muscles and clear to auscultation bilaterally Effort & inspection: able to speak in complete sentences Cardio Common normals: no JVD, regular rate, regular rhythm, S1 normal heart sound, S2 normal heart sound, no gallops, no clicks, no rub and peripheral pulses 2+ throughout Heart sounds: murmur (HSM 2/6) GI Common normals: Normal to inspection, nondistended, normoactive bowel sounds present, soft to palpation, non-tender, no hepatosplenomegaly, no masses and no bruits Bladder/kidney exam: bladder normal to palpation Back & Pelvis Common normals: thoracic and lumbar spine normal to inspection Extremity Common normals: normal capillary refill; pedal edema General: normal exam except as noted Other: 1+ edema Neuro [place] Coma Scale: GCS not evaluated Common normals: CN's II-XII intact bilaterally, moves all extremities, no focal motor deficits and no sensory deficits noted Speech: speech normal Motor exam: strength 5/5 throughout Psych Common normals: mental status grossly normal, thought process normal, affect normal and activity/motor behavior normal Results Labs Labs: Short CBC 10/11/23 10/12/23 Range/Units 15:45 04:00 WBC 0.9 L* 0.4 L* (4.0-11.0) 10^3/uL Hgb 8.9 L 7.1 L (12.0-16.0) g/dL Hct 26.6 L 21.1 L* (36.0-48.0) % Plt Count 18 L* 10 L* (150-450) 10^3/uL BMP 10/11/23 10/12/23 15:45 04:00 Sodium 141 141 Potassium 3.5 3.3 L Chloride 105 107 Carbon Dioxide 22.5 25.3 BUN 9.0 12.0 Creatinine 0.65 0.58 Glucose 134 H 115 H Calcium 8.2 L 8.1 L Urine 10/11/23 Range/Units 17:25 Urine Color Yellow (YELLOW) Urine Clarity Clear (CLEAR) Urine pH 6.5 (5.0-9.0) Ur Specific [place] >=1.030 A (1.005-1.025) Urine Protein 100 A (NEG/TRACE) mg/dL Urine Glucose (UA) Negative (NEGATIVE) mg/dL Assessment and Plan Assessment and Plan (1) Neutropenic fever: (2) Acute leukemia: (3) Symptomatic anemia: (4) Thrombocytopenia: Plan Fever, uncontrolled hypertension, acute hematuria, acute leukemia in third week of treatment, neutropenia, thrombocytopenia-leading to neutropenic sepsis-IV antibiotics will maintain those, check on urine culture, no white blood cells but significant hematuria which could be correlating with acute UTI since patient has no white blood cells to put in her urine-urine and blood cultures are pending Pulmonary vascular congestion secondary to acute type II NSTEMI-related to the above-discussed with cardiology, ejection fraction is down somewhat from previous 1 3 weeks ago but only 5%, will track and trend troponins and BNP. Give 1 dose of Lasix and she does have some peripheral edema and will be receiving blood products Acute leukemia-see above Hypokalemia-supplement Severe protein calorie malnutrition-diet management Inpatient criteria: Patient with neutropenic sepsis resulting in acute NSTEMI type II-medically necessary treatment will definitely span 2 midnights. Blood cultures pending, your problems are pending.
--- NOTE | 2023-10-12 08:39 | PC.NURSE ---
Called cardio at 0825 to make them aware of the stat ECHO for the patient. Cardio said they would be up as soon as they can.
[2023-10-12 08:41] LABS: Troponin I High Sensitivity 16.5 pg/mL (4.0-51.3)
--- NOTE | 2023-10-12 08:43 | ECG_ITS ---
[facility] Test Date: 2023-10-12 Pat Name: DIANA HINOJOSA Department: Room: 230-1 Gender: Female Dope Pourer: : 1940 Requested By: RORY WEST Order Number: [id number] Reading MD: RORY WEST Measurements Intervals [place] Rate: 67 P: 82 RI: 240 QRS: -41 QRSD: 99 T: -52 QT: 434 QTc: 458 Interpretive Statements SINUS RHYTHM WITH FIRST DEGREE AV BLOCK MARKED LEFT AXIS DEVIATION [QRS AXIS < -30] LOW QRS VOLTAGE IN PRECORDIAL LEADS [QRS DEFLECTION < 1.0 mV IN CHEST LEADS] MODERATE VOLTAGE CRITERIA FOR LVH, CONSIDER NORMAL VARIANT [MEETS CRITERIA IN ONE OF: R(aVL), S(V1), R(V5), R(V5/V6)+S(V1)] POSSIBLE ANTERIOR MYOCARDIAL INFARCTION [30 ms Q WAVE IN V3/V4, OR R < 0.2 mV IN V4], PROBABLY OLD Compared to ECG 10/11/2023 15:45:35 Left-axis deviation now present Low QRS voltage now present Myocardial infarct finding now present ST (T wave) deviation no longer present Electronically Signed On 10-13-2023 7:56:55 EDT by RORY WEST
[2023-10-12] MEDS: POTASSIUM CHLORIDE 10 MEQ ER TABLET 20 MEQ PO ×2 (09:17→20:39)
[2023-10-12] MEDS: ACYCLOVIR 200 MG CAPSULE 400 MG PO ×2 (09:17→20:39)
[2023-10-12] MEDS: PANTOPRAZOLE SODIUM 40 MG VIAL IV (09:17)
[2023-10-12] MEDS: ALLOPURINOL 300 MG TABLET PO (09:17)
[2023-10-12] MEDS: ALPRAZOLAM 0.5 MG TABLET PO ×2 (09:17→23:52)
[2023-10-12] MEDS: FUROSEMIDE 40 MG/4 ML VIAL IVP (09:19)
[2023-10-12 10:09] LABS: Troponin I High Sensitivity 1124.1 pg/mL (4.0-51.3)
--- NOTE | 2023-10-12 10:23 | SWNOTE1 ---
SW met with pt, pt's , and pt's 2 grand-daughters in room. Pt lives at home with . Pt uses a walker at home to get around. Pt was supposed to start care with [facility] today with a skilled nurse for blood draws, but she is at hospital. SW to renew her HH at discharge. There was no PT/OT coming in with the skilled nurse. At this time pt voices no other dc needs. She voices her daughter keeps track of everything for her. SW to follow as needed.
[2023-10-12 11:39] LABS: Glucometer 116 mg/dL (74-106)
[2023-10-12] MEDS: ISOSORBIDE MONONITRATE 30 MG TAB.ER.24H PO (12:13)
[2023-10-12 12:14] LABS: Hemoglobin 7.4 g/dL (12.0-16.0); Mean Corpuscular HGB Conc 34.1 g/dL (29.9-35.2); Mean Corpuscular Volume 85.1 fL (81.0-99.0); Mean Platelet Volume 10.8 fL (9.5-13.5); Red Blood Count 2.55 10^6/uL (4.20-5.40); Red Cell Distribution Width 16.1 % (11.0-15.0)
[2023-10-12 12:30] LABS: Hematocrit 21.7 % (36.0-48.0); White Blood Count 0.5 10^3/uL (4.0-11.0)
[2023-10-12 12:31] LABS: Platelet Count 7 10^3/uL (150-450)
[2023-10-12] MEDS: DIPHENHYDRAMINE HCL 25 MG CAPSULE PO (13:00)
[2023-10-12] MEDS: ACETAMINOPHEN 500 MG TABLET 1000 MG PO ×2 (13:00→23:50)
[2023-10-12 13:56] LABS: Lymphocytes Absolute Manual 0.46 10^3/uL (1.20-3.80)
[2023-10-12 13:57] LABS: Anisocytosis 1+; Hypochromasia 2+; Monocytes Absolute Manual 0.04 10^3/uL (0.30-0.80)
[2023-10-12 14:09] LABS: Troponin I High Sensitivity 930.9 pg/mL (4.0-51.3)
--- NOTE | 2023-10-12 14:58 | SWNOTE1 ---
[facility] information left on floor for nursing to send dc orders.
--- NOTE | 2023-10-12 15:12 | DIETREC ---
Recommend 237 mL Ensure Original BID for added nutrients d/t dx malnutrition.
[2023-10-12 16:22] LABS: Glucometer 169 mg/dL (74-106)
[2023-10-12 20:48] LABS: Glucometer 144 mg/dL (74-106)
[2023-10-13] VITALS (8 sets, daily range): BP systolic 132–146; BP diastolic 69–81; PULSE 65–81; TEMP 36.3–36.4; O2SAT 94–97
[2023-10-13 05:28] LABS: Hemoglobin 7.6 g/dL (12.0-16.0); Lymphocytes Absolute Auto 0.3 10^3/uL (1.2-3.8); Lymphocytes Percent Auto 89.2 % (20.5-60.0); Mean Corpuscular Hemoglobin 28.5 pg (26.7-34.0); Mean Corpuscular Volume 86.1 fL (81.0-99.0); Mean Platelet Volume 11.1 fL (9.5-13.5); Monocytes Percent Auto 5.4 % (1.7-12.0); Neutrophils Percent Auto 5.4 % (43.0-75.0); Red Blood Count 2.67 10^6/uL (4.20-5.40); Red Cell Distribution Width 15.6 % (11.0-15.0)
[2023-10-13 05:39] LABS: Anion Gap 10.4; BUN Creatinine Ratio 20.8; Calcium 7.9 mg/dL (8.5-10.1); Chloride 109 mmol/L (98-107); Estimated GFR (African America >60 (>=60); Estimated GFR (Non-African Ame >60 (>=60); Glucose 100 mg/dL (74-106); Potassium 3.4 mmol/L (3.5-5.1); Sodium 143 mmol/L (136-145)
[2023-10-13] MEDS: METOPROLOL TARTRATE 50 MG TABLET PO (06:18)
[2023-10-13 06:37] LABS: Troponin I High Sensitivity 634.1 pg/mL (4.0-51.3)
[2023-10-13 06:38] LABS: Platelet Count 18 10^3/uL (150-450); White Blood Count 0.4 10^3/uL (4.0-11.0)
[2023-10-13] MEDS: CEFTAZIDIME 2,000 MG in 0.9 % SODIUM CHLORIDE 100 ML 200 MG IV (09:11)
[2023-10-13] MEDS: ISOSORBIDE MONONITRATE 30 MG TAB.ER.24H PO (09:12)
[2023-10-13] MEDS: ACYCLOVIR 200 MG CAPSULE 400 MG PO (09:12)
[2023-10-13] MEDS: POTASSIUM CHLORIDE 10 MEQ ER TABLET 20 MEQ PO (09:12)
[2023-10-13] MEDS: ALLOPURINOL 300 MG TABLET PO (09:12)
[2023-10-13] MEDS: PANTOPRAZOLE SODIUM 40 MG VIAL IV (09:12)
[2023-10-13] MEDS: POSACONAZOLE 100 MG 300 EACH PO (10:12)
--- NOTE | 2023-10-13 11:04 | P.DS_ITS ---
DS: Providers Provider Date of admission: 10/12/23 07:11 Primary care physician: Armani Tapia MD Consults: 10/11/23 Consult to Dietitian Routine Reason For Exam: weight loss Reason for consultation: triggered on admission for weight loss Has provider been notified: Yes 10/11/23 17:49 Consult to Pharmacy Routine Consulting Provider: Reason for consultation: Let me know when med rec completed so I can enter it Has provider been notified: No 10/12/23 08:08 Consult to Cardiology Routine Reason for consultation: elevated HST - BNP Has provider been notified: No DS: Diagnosis Discharge Diagnosis (1) Neutropenic fever: (2) Acute leukemia: (3) Symptomatic anemia: (4) Thrombocytopenia: Plan Fever, uncontrolled hypertension, acute hematuria, acute leukemia in third week of treatment, neutropenia, thrombocytopenia-leading to neutropenic sepsis-IV antibiotics will maintain those, check on urine culture, no white blood cells but significant hematuria which could be correlating with acute UTI since patient has no white blood cells to put in her urine-urine and blood cultures are pending Pulmonary vascular congestion secondary to acute type II NSTEMI-related to the above-discussed with cardiology, ejection fraction is down somewhat from pre vious 1 3 weeks ago but only 5%, will track and trend troponins and BNP. Give 1 dose of Lasix and she does have some peripheral edema and will be receiving blood products Acute leukemia-see above Hypokalemia-supplement Severe protein calorie malnutrition-diet management Inpatient criteria: Patient with neutropenic sepsis resulting in acute NSTEMI type II-medically necessary treatment will definitely span 2 midnights. Blood cultures pending, your problems are pending. ? DS: Summary Hospital Course Hospital Course: With a recent diagnosis of acute leukemia presented with low-grade fever 100.3. With significant neutropenia patient was admitted for septic workup with neutropenic fever. When I saw the patient the following day they reviewed the chest x-ray show possible pulmonary infiltrates which could be infectious versus pulmonary edema. I checked a BNP and high-sensitivity troponin both were significantly positive. Blood in ER was available from the previous day's we ra n the same testing on that and they were elevated although the troponin was essentially normal at that time. BNP level was elevated. With progression of her BNP and high-sensitivity troponin patient had a type II NSTEMI. Echocardiogram does show slightly reduced ejection fraction, her previous was over 55% and this 1 is reading more 50%. Discussed case with cardiology with her comorbid current conditions that would be not recommended to undergo heart catheterization. This is likely secondary to demand ischemia as opposed to coronary artery disease. Patient is increased dose of her metoprolol and added Imdur. Unable to add aspirin secondary to the thrombocytopenia. She was also treated for her anemia and thrombocytopenia with 1 unit of each. Her hemoglobin is fairly stable for her. She will have follow-up in oncology clinic in 3 days. She is instructed to keep that visit. If she has any fevers she is to return to the emergency room. Added cefdinir at discharge. Medication see list. I will follow-up with the patient next week as well as her follow-up visits with oncology next week. Time Spent with Patient Time attestation: Total time spent providing and/or coordinating discharge services: Exam Constitutional Vital Signs, click to edit/add: Last Vital Signs Temp 97.4 F L 10/13/23 08:20 Pulse 66 10/13/23 09:56 Resp 16 10/13/23 08:20 BP 146/81 H 10/13/23 08:20 Pulse Ox 97 10/13/23 08:20 O2 Del Method Room Air 10/13/23 08:20 Common normals: no apparent distress, oriented x3, alert and well nourished General appearance: cooperative and other (Pale) Nutritional appearance: overweight Orientation/consciousness: Yes awake HENMT Common normals: normocephalic, head/scalp atraumatic, hearing grossly normal bilaterally, external nose normal and moist oral mucous membranes Eye Common normals: PERRL, EOMs intact bilaterally, conjunctivae normal and no scleral icterus Alignment: alignment normal Eyelid: eyelids normal Neck & C-Spine Common normals: full ROM, supple and no JVD Chest Common normals: inspection of chest normal Chest: symmetrical chest wall rise Respiratory Common normals: normal respiratory effort, no retractions, no use of accessory muscles and clear to auscultation bilaterally Effort & inspection: able to speak in complete sentences Cardio Common normals: no JVD, regular rate, regular rhythm, S1 normal heart sound, S2 normal heart sound, no gallops, no clicks, no rub and peripheral pulses 2+ throughout Heart sounds: murmur (HSM 2/6) GI Common normals: Normal to inspection, nondistended, normoactive bowel sounds present, soft to palpation, non-tender, no hepatosplenomegaly, no masses and no bruits Bladder/kidney exam: bladder normal to palpation Back & Pelvis Common normals: thoracic and lumbar spine normal to inspection Extremity Common normals: normal capillary refill; pedal edema General: normal exam except as noted Other: 1+ edema Neuro [place] Coma Scale: GCS not evaluated Common normals: CN's II-XII intact bilaterally, moves all extremities, no focal motor deficits and no sensory deficits noted Speech: speech normal Motor exam: strength 5/5 throughout Psych Common normals: mental status grossly normal, thought process normal, affect normal and activity/motor behavior normal DS: Data Data Completed and Pending Labs on day of discharge: Labs from last 24 hours 10/13/23 10/12/23 10/12/23 05:04 20:42 16:21 WBC 0.4 L* RBC 2.67 L Hgb 7.6 L Hct 23.0 L* MCV 86.1 MCH 28.5 MCHC 33.0 RDW 15.6 H Plt Count 18 L* MPV 11.1 Neut % (Auto) 5.4 L Lymph % (Auto) 89.2 H [place] % (Auto) 5.4 Eos % (Auto) 0.0 L Baso % (Auto) 0.0 L Neut # (Auto) 0.0 L Lymph # (Auto) 0.3 L [place] # (Auto) 0.0 L Eos # (Auto) 0.0 Baso # (Auto) 0.0 Abs Immat Gran (auto) 0.00 Seg Neuts % (Manual) Lymphocytes % (Manual) Monocytes % (Manual) Eosinophils % (Manual) Basophils % (Manual) Imm/Tot Granulo (auto) 0.0 Neutrophils # (Manual) Lymphocytes # (Manual) Monocytes # (Manual) Eosinophils # (Manual) Basophils # (Manual) Hypochromasia Anisocytosis Sodium 143 Potassium 3.4 L Chloride 109 H Carbon Dioxide 27.0 Anion Gap 10.4 BUN 11.0 Creatinine 0.53 L Est GFR ( Amer) >60 Est GFR (Non-Af Amer) >60 BUN/Creatinine Ratio 20.8 Glucose 100 Calcium 7.9 L Troponin I High Sens 634.1 H* NT-Pro-B Natriuret Pep 21175.0 H* POC Glucose 144 H 169 H Blood Type Antibody Screen Crossmatch 10/12/23 10/12/23 10/12/23 13:20 11:54 11:39 WBC 0.5 L* RBC 2.55 L Hgb 7.4 L Hct 21.7 L* MCV 85.1 MCH 29.0 MCHC 34.1 RDW 16.1 H Plt Count 7 L* MPV 10.8 Neut % (Auto) Lymph % (Auto) [place] % (Auto) Eos % (Auto) Baso % (Auto) Neut # (Auto) Lymph # (Auto) [place] # (Auto) Eos # (Auto) Baso # (Auto) Abs Immat Gran (auto) Seg Neuts % (Manual) 0.0 Lymphocytes % (Manual) 92.0 H Monocytes % (Manual) 8.0 Eosinophils % (Manual) 0.0 L Basophils % (Manual) 0.0 L Imm/Tot Granulo (auto) Neutrophils # (Manual) 0.00 L Lymphocytes # (Manual) 0.46 L Monocytes # (Manual) 0.04 L Eosinophils # (Manual) 0.00 Basophils # (Manual) 0.00 Hypochromasia 2+ Anisocytosis 1+ Sodium Potassium Chloride Carbon Dioxide Anion Gap BUN Creatinine Est GFR ( Amer) Est GFR (Non-Af Amer) BUN/Creatinine Ratio Glucose Calcium Troponin I High Sens 930.9 H* NT-Pro-B Natriuret Pep POC Glucose 116 H Blood Type Antibody Screen Crossmatch 10/12/23 04:00 WBC RBC Hgb Hct MCV MCH MCHC RDW Plt Count MPV Neut % (Auto) Lymph % (Auto) [place] % (Auto) Eos % (Auto) Baso % (Auto) Neut # (Auto) Lymph # (Auto) [place] # (Auto) Eos # (Auto) Baso # (Auto) Abs Immat Gran (auto) Seg Neuts % (Manual) Lymphocytes % (Manual) Monocytes % (Manual) Eosinophils % (Manual) Basophils % (Manual) Imm/Tot Granulo (auto) Neutrophils # (Manual) Lymphocytes # (Manual) Monocytes # (Manual) Eosinophils # (Manual) Basophils # (Manual) Hypochromasia Anisocytosis Sodium Potassium Chloride Carbon Dioxide Anion Gap BUN Creatinine Est GFR ( Amer) Est GFR (Non-Af Amer) BUN/Creatinine Ratio Glucose Calcium Troponin I High Sens NT-Pro-B Natriuret Pep POC Glucose Blood Type B Positive Antibody Screen Negative Crossmatch See Detail Discharge Plan Discharge Disposition: Home, Self-Care Condition: Good Discharge Medications: New metoprolol tartrate 50 mg Tablet 50 mg PO Q12H Qty: 60 11RF isosorbide mononitrate 30 mg tablet extended release 24 hr 30 mg PO DAILY Qty: 30 11RF Continued acyclovir 400 mg tablet 400 mg PO Q12H allopurinol 300 mg tablet 300 mg PO DAILY levofloxacin 500 mg tablet 500 mg PO Q24H posaconazole 100 mg tablet,delayed release (DR/EC) 300 mg PO Q24H potassium chloride 20 mEq tablet extended release 20 meq PO DAILY Venclexta 100 mg tablet 100 mg PO Q24H alprazolam 0.5 mg tablet 0.5 mg PO Q12H PRN (Reason: anxiety) Discontinued metoprolol tartrate 25 mg tablet 25 mg PO Q12H Activity: resume usual activities as tolerated Diet: advance to your usual diet Print Language: [place] Patient Instructions: 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 Forms: Portal Instructions Follow Up Appointments: Keep appointments as scheduled Discharge Date/Time: 10/13/23 12:15
[2023-10-13] MEDS: ALPRAZOLAM 0.5 MG TABLET PO (11:59)
--- NOTE | 2023-10-15 16:16 | CM.DCFOLLOWU ---
Spoke with patient's daughter, patient is in the Emergency Room
== END 2023-10-13 12:15 | disposition home or self-care (01) | DRG 871 ==
LOC: ER 17:41 → MS 18:09
PROVIDERS: Admitting Provider Family Medicine; Emergency Provider Emergency Medicine; PCP Family Medicine; Visit Provider Family Medicine
DX: A41.9 Sepsis, unspecified organism (principal); E43 Unspecified severe protein-calorie malnutrition; I21.A1 Myocardial infarction type 2; C92.00 Acute myeloblastic leukemia, not having achieved remission; N39.0 Urinary tract infection, site not specified; D69.6 Thrombocytopenia, unspecified; D70.9 Neutropenia, unspecified; I10 Essential (primary) hypertension; E11.9 Type 2 diabetes mellitus without complications; E87.6 Hypokalemia; R31.9 Hematuria, unspecified; R50.81 Fever presenting with conditions classified elsewhere; R09.89 Other specified symptoms and signs involving the circulatory and respiratory systems; Z79.01 Long term (current) use of anticoagulants; Z79.82 Long term (current) use of aspirin; Z79.84 Long term (current) use of oral hypoglycemic drugs; Z79.899 Other long term (current) drug therapy; Z95.1 Presence of aortocoronary bypass graft; Z68.28 Body mass index [BMI] 28.0-28.9, adult
CPT/HCPCS: 0202U; 36415; 36430; 36591; 71045; 71046; 80048; 80053; 81001; 81003; 82948; 83735; 83880; 84484; 85007; 85025; 85027; 86850; 86900; 86901; 87040; 87086; 93005; 93306; 93356; 94667; 94668; 94761; 96365; 96366; 96374; 96375; 96376; 99285; G0328; G0378; G0463; J3480; P9035; P9038

== ENCOUNTER 2023-10-15 14:21 | Inpatient (IN) | payer MEDICARE, SELFPAY ==
[2023-10-15] VITALS (8 sets, daily range): BP systolic 111–134; BP diastolic 59–79; PULSE 67–78; TEMP 36.6–37.7; O2SAT 92–97; BMI 27.5; BMI 29.3
--- NOTE | 2023-10-15 14:33 | ED_ITS ---
HPI HPI - General Adult General Chief complaint: Shortness of Breath/Dyspnea Stated complaint: SOB Time Seen by Provider: 10/15/23 14:23 Source: patient Mode of arrival: ambulance Limitations: no limitations History of Present Illness HPI narrative: 83-year-old female here by ambulance from her home in [facility] [place]. She lives with her . She says she just has terrible low back pain and also thinks she might be dehydrated because of decreased fluid and food intake recently. She is an adequate historian but does not remember much of the day as about her complex medical history. She does know that she is still under treatment by her family doctor for a number of conditions that she also has leukemia. She denies any vomiting or diarrhea recently. She has had core she has had cardiac surgery done in [place] many years ago. She has a [id number] in her right chest for her chemotherapy. She does not know she has been fever or not. Her past records indicate that she does not fact have history of anemia secondary to her leukemia. Family members not present so she is doing the best she can remember the history. Her is at home. 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 One of the daughters is here who provides additional history. This patient was in fact in the [facility] tertiary care center for approximately 7 days for workup of this problem. They opted after consideration of all the factors, to not proceed with a bone marrow biopsy and are treating her based on the best clinical recommendations based on the laboratory testing that was able to be completed. They have been following her platelet count very carefully and she is scheduled to have platelet transfusion tomorrow. Related Data Home Medications ?Medication ?Instructions ?Recorded ?Confirmed acyclovir 400 mg tablet 400 mg PO Q12H 10/11/23 10/11/23 allopurinol 300 mg tablet 300 mg PO DAILY 10/11/23 10/11/23 alprazolam 0.5 mg tablet 0.5 mg PO Q12H PRN anxiety 10/11/23 10/11/23 levofloxacin 500 mg tablet 500 mg PO Q24H 10/11/23 10/11/23 posaconazole 100 mg tablet,delayed 300 mg PO Q24H 10/11/23 10/11/23 release potassium chloride 20 mEq 20 meq PO DAILY 10/11/23 10/11/23 tablet,extended release venetoclax 100 mg tablet 100 mg PO Q24H 10/11/23 10/11/23 (Venclexta) amlodipine 5 mg tablet 5 mg PO DAILY 10/15/23 10/15/23 atorvastatin 40 mg tablet 40 mg PO DAILY 10/15/23 10/15/23 furosemide 20 mg tablet 20 mg PO DAILY 10/15/23 10/15/23 Previous Rx's ?Medication ?Instructions ?Recorded isosorbide mononitrate 30 mg 30 mg PO DAILY #30 tabs 10/13/23 tablet,extended release 24 hr metoprolol tartrate 50 mg tablet 50 mg PO Q12H #60 tabs 10/13/23 Allergies Allergy/AdvReac Type Severity Reaction Status Date / Time ORANGES AdvReac Uncoded 10/11/23 15:49 Opioid HPI Opioid Management Most Recent Opioid Data: Last Pain Scale 9 10/15/23 14:56 Last Pain Assessment 10/13/23 11:10 Last MAR Pain Assessment 10/15/23 14:56 Last ORT Total Score 0 10/11/23 18:14 Last ORT Risk Category Low Risk 10/11/23 18:14 [facility] Medical History (Updated 10/15/23 @ 16:35 by Edson Frausto MD) AML (acute myeloblastic leukemia) ?C92.00 - Acute myeloblastic leukemia, not having achieved remission (ICD-10) Malignancy ?C80.1 - Malignant (primary) neoplasm, unspecified (ICD-10) A-fib ?I48.91 - Unspecified atrial fibrillation (ICD-10) HTN (hypertension) ?I10 - Essential (primary) hypertension (ICD-10) CAD (coronary artery disease) ?I25.10 - Atherosclerotic heart disease of [place] coronary artery without angina pectoris (ICD-10) Hyperlipidemia ?E78.5 - Hyperlipidemia, unspecified (ICD-10) DM2 (diabetes mellitus, type 2) ?E11.9 - Type 2 diabetes mellitus without complications (ICD-10) Surgical History S/P CABG x 4 ?Z95.1 - Presence of aortocoronary bypass graft (ICD-10) Family History (Updated 10/11/23 @ 18:08 by Bonny Jaramillo) Mother Family history of CHF (congestive heart failure) Social History (Updated 10/11/23 @ 18:09 by Bonny Jaramillo) Within the past year, how often did you have a drink containing alcohol: monthly or less Within the past year, how many standard drinks containing alcohol did you have on a typical day: 1 or 2 Within the past year, how often did you have six or more drinks on one occasion: never Total score: 0 Score interpretation: A score less than 3 is consistent with normal alcohol consumption. Smoking status: Never smoker Non-prescribed substance use: denies use Previous occupational history: retired Highest level of school completed/degree received: some college, no degree Are you now , , , , never or living with a partner: In a typical week, how many times do you talk on the telephone with family, friends, or neighbors: 3 or more times per week How often do you get together with friends or relatives: 3 or more times per week How often do you attend yazidi or mosque services: never Do you belong to any clubs or organizations such as yazidi groups unions, [employer] or athletic groups, or school groups: no Total score: 2 Score interpretation: A score of greater than or equal to 2 indicates the lowest level of social isolation. Little interest or pleasure in doing things: several days Feeling down, depressed, or hopeless: several days Feel stressed/tense/nervous/anxious/difficulty sleeping: to some extent Life stressor details: cancer diagnosis Do you think of yourself as: straight/heterosexual Gender Identity: female Exam Narrative Exam Narrative: Patient was seen shortly after arrival she appears both acutely and chronically ill. When asked what is bothering her the most she says her low back hurts. She is not confused she has a lot of medical history that she is not exactly clear on but fortunately her daughter arrived. On examination her vital's are noted she is afebrile at this time. Blood pressure is stable with no hypotension. She has got some ecchymosis and bruising throughout the skin. That is consistent with her thrombectomy with her low platelet count. HEENT shows no focus of infection. Deglutition and swallowing and voice are normal. There is no slurring of her words. She has no headache and has no nuchal rigidity or neck pain. Lungs have some scattered rhonchi there is no respiratory distress and she denies specific dyspnea. Heart sounds are regular. Abdomen is benign. She has no guarding or rebound. Extremities other than having some's mild amount of peripheral edema. Essentially normal with some scattered ecchymosis as noted above. Neurological she is not confused she is not repeating herself she is oriented x 3. Constitutional Vital Signs, click to edit/add: Last Vital Signs Temp 99.9 F 10/15/23 14:22 Pulse 68 10/15/23 16:26 Resp 24 H 10/15/23 16:26 BP 127/59 10/15/23 16:26 Pulse Ox 94 L 10/15/23 16:26 O2 Del Method Room Air 10/15/23 16:26 Course Vital Signs Vital signs: Vital Signs Temperature 99.9 F 10/15/23 14:22 Pulse Rate 78 10/15/23 14:22 Respiratory Rate 22 H 10/15/23 14:22 Blood Pressure 123/61 10/15/23 14:22 Pulse Oximetry 96 10/15/23 14:22 Oxygen Delivery Method Room Air 10/15/23 14:22 Temperature 99.9 F 10/15/23 14:22 Pulse Rate 68 10/15/23 16:26 Respiratory Rate 24 H 10/15/23 16:26 Blood Pressure 127/59 10/15/23 16:26 Pulse Oximetry 94 L 10/15/23 16:26 Oxygen Delivery Method Room Air 10/15/23 16:26 Medical Decision Making [facility] Narrative Medical decision making narrative: This patient here complaining of low back pain so I decided to order a CT of the abdomen that would evaluate both her abdominal contents, base of the lungs and her spine. There is no acute bony abnormality but she does have chronic degenerative changes. She also has a newly recognized 3 cm right basilar effusion. A recent echocardiogram shows some recent decrease in her ejection fraction from previous baseline studies. Her troponin is continuing to decrease substantially today. Her BUN and creatinine are stable. Hemoglobin is stable white count is stable [place] at both are low. Platelets are decreasing again but are not critically low as they had been previously. Patient was not able to void here despite receiving IV fluids so we did do a catheterized specimen to rule out any possibility of UTI. All this was discussed with her primary care physician and need like her admitted to initiate platelet therapy. Her lactate levels are modestly elevated. With her severe neutropenia she is at risk of course for infection. The attending physician will decide on admitting orders and the use of any antibiotic therapy. Lab Data Labs: Lab Results 10/15/23 Range/Units 14:53 WBC 0.4 L* (4.0-11.0) 10^3/uL RBC 2.63 L (4.20-5.40) 10^6/uL Hgb 7.7 L (12.0-16.0) g/dL Hct 22.7 L* (36.0-48.0) % MCV 86.3 (81.0-99.0) fL MCH 29.3 (26.7-34.0) pg MCHC 33.9 (29.9-35.2) g/dL RDW 15.9 H (11.0-15.0) % Plt Count 9 L* (150-450) 10^3/uL MPV 10.6 (9.5-13.5) fL Seg Neuts % (Manual) 2.0 Lymphocytes % (Manual) 80.0 H (20.5-60.0) % Monocytes % (Manual) 18.0 H (1.7-12.0) % Eosinophils % (Manual) 0.0 L (0.9-7.0) % Basophils % (Manual) 0.0 L (0.2-2.0) % Neutrophils # (Manual) 0.00 L (1.4-6.5) 10^3/uL Lymphocytes # (Manual) 0.32 L (1.20-3.80) 10^3/uL Monocytes # (Manual) 0.07 L (0.30-0.80) 10^3/uL Eosinophils # (Manual) 0.00 (0.00-0.70) 10^3/uL Basophils # (Manual) 0.00 (0.00-0.10) 10^3/uL Sodium 139 (136-145) mmol/L Potassium 4.3 (3.5-5.1) mmol/L Chloride 105 (98-107) mmol/L Carbon Dioxide 21.3 (21.0-32.0) mmol/L Anion Gap 17.0 BUN 13.0 (7.0-18.0) mg/dL Creatinine 0.72 (0.55-1.02) mg/dL Est GFR ( Amer) >60 (>=60) Est GFR (Non-Af Amer) >60 (>=60) BUN/Creatinine Ratio 18.1 Glucose 152 H (74-106) mg/dL Lactate 2.3 H* (0.4-2.0) mmol/L Calcium 8.3 L (8.5-10.1) mg/dL Total Bilirubin 1.2 H (0.2-1.0) mg/dL AST 68 H (15-37) U/L ALT 47 (14-59) U/L Alkaline Phosphatase 128 H (46-116) U/L Troponin I High Sens 106.0 H* (4.0-51.3) pg/mL Total Protein 5.7 L (6.4-8.2) g/dL Albumin 2.4 L (3.4-5.0) g/dL Globulin 3.3 g/dL Albumin/Globulin Ratio 0.7 Discharge Plan Discharge Stand Alone Forms: Portal Instructions Chief Complaint: Shortness of Breath/Dyspnea Clinical Impression: Pancytopenia, Pleural effusion on right Patient Disposition: Home, Self-Care Time of Disposition Decision: 16:35 Prescriptions / Home Meds: No Action acyclovir 400 mg tablet 400 mg PO Q12H allopurinol 300 mg tablet 300 mg PO DAILY levofloxacin 500 mg tablet 500 mg PO Q24H posaconazole 100 mg tablet,delayed release (DR/EC) 300 mg PO Q24H potassium chloride 20 mEq tablet extended release 20 meq PO DAILY Venclexta 100 mg tablet 100 mg PO Q24H alprazolam 0.5 mg tablet 0.5 mg PO Q12H PRN (Reason: anxiety) metoprolol tartrate 50 mg Tablet 50 mg PO Q12H Qty: 60 11RF isosorbide mononitrate 30 mg tablet extended release 24 hr 30 mg PO DAILY Qty: 30 11RF Print Language: Hebrew Referrals: Armani Tapia MD [Primary Care Provider] - 1 week
--- NOTE | 2023-10-15 14:35 | ECG_ITS ---
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
--- NOTE | 2023-10-15 14:35 | XR_ITS ---
The [address] [address] Patient Name: DIANA HINOJOSA MRN: [id number] date: 1940 Sex: F Assigned Patient Location: ER Current Patient Location: ER Accession/Order Number: [id number] Exam Date: 10/15/2023 15:25 Report Date: 10/15/2023 16:00 At the request of: IVANIA CORNEJO Procedure: XR chest 1V EXAMINATION: XR chest 1V HISTORY: Weakness COMPARISON: XR chest 10/11/2023 FINDINGS: LUNGS: Mild opacities within right lung base partially obscuring the diaphragm and heart margin. VASCULATURE: No increased pulmonary vasculature. PLEURA: Suspect small right pleural effusion. CARDIAC: Cardiomegaly. Prior sternotomy. MEDIASTINUM: No visible mass or adenopathy. BONES: No fracture or visible bone lesion. OTHER: Stable right Port-A-Cath with tip in right atrium. XR/XR chest 1V IMPRESSION: 1. Mild right basilar infiltrates versus atelectasis and likely small right pleural effusion; slightly changed in configuration compared to prior study. Electronically authenticated by: PEGGY CORONEL Date: 10/15/2023 16:00
--- NOTE | 2023-10-15 14:39 | CT_ITS ---
[address] [address] Patient Name: DIANA HINOJOSA MRN: [id number] date: 1940 Sex: F Assigned Patient Location: ER Current Patient Location: Accession/Order Number: [id number] Exam Date: 10/15/2023 15:25 Report Date: 10/15/2023 16:11 At the request of: IVANIA CORNEJO Procedure: CT abdomen pelvis wo con EXAMINATION: CT abdomen pelvis wo con HISTORY: lumbar pain, leukemia , shortness breath, diarrhea, weakness; recently started treatment for leukemia COMPARISON: No relevant comparison available. TECHNIQUE: Axial, Coronal, and Sagittal images were obtained without and/or with IV contrast as indicated by examination type. Dose reduction techniques were achieved by using automated exposure control and/or adjustment of mA and/or kV according to patient size and/or use of iterative reconstruction technique. FINDINGS: LUNG BASES: Bilateral pleural effusions, 3.0 cm in thickness on right, 1.2 cm on left. Mild bibasilar atelectasis. Cardiomegaly; no pericardial effusion. LIVER: No enlargement, atrophy, suspicious density, or significant focal lesion. BILIARY: Stone filled versus soft tissue filled gallbladder fundus. PANCREAS: No lesion, fluid collection, or abnormal duct dilatation. SPLEEN: No enlargement or focal lesion. ADRENALS: No mass or enlargement. KIDNEYS: 1.5 cm fatty lesion within right renal cortex; lipoma versus angiomyolipoma. 2.8 cm simple appearing left renal cyst. BOWEL/MESENTERY: Diverticulosis of distal colon without acute plantar changes. No visible mass, obstruction, or bowel wall thickening. 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 Atherosclerotic disease. RETROPERITONEUM: No mass or adenopathy. LYMPH NODES: No adenopathy. URINARY BLADDER: No visible focal wall thickening, lesion, or calculus. PELVIC ORGANS: No visible mass. Pelvic organs appropriate for patient age. ABDOMINAL WALL: No mass or hernia. BONES: Multilevel moderate degenerative disc disease. No acute bone abnormality or bone lesion. OTHER: Negative. CT/CT abdomen pelvis wo con IMPRESSION: 1. Large right, small left pleural effusion with mild bibasilar atelectasis versus infiltrates. 2. Cardiomegaly. 3. Abnormal appearance of gallbladder fundus; stone filled versus soft tissue. Ultrasound evaluation recommended. 4. Multilevel degenerative disc disease of lumbar spine. No acute abnormality. 5. No acute bowel abnormality. Additional chronic changes detailed above. Electronically authenticated by: PEGGY CORONEL Date: 10/15/2023 16:11
[2023-10-15] MEDS: HYDROMORPHONE HCL 1 MG/ML CARTRIDGE IV (14:56)
[2023-10-15] MEDS: 0.9 % SODIUM CHLORIDE 1,000 ML 999 ML IV (14:56)
[2023-10-15 14:59] LABS: Hemoglobin 7.7 g/dL (12.0-16.0); Mean Corpuscular HGB Conc 33.9 g/dL (29.9-35.2); Mean Corpuscular Hemoglobin 29.3 pg (26.7-34.0); Mean Corpuscular Volume 86.3 fL (81.0-99.0); Mean Platelet Volume 10.6 fL (9.5-13.5); Red Blood Count 2.63 10^6/uL (4.20-5.40); Red Cell Distribution Width 15.9 % (11.0-15.0)
[2023-10-15 15:03] LABS: Hematocrit 22.7 % (36.0-48.0); Platelet Count 9 10^3/uL (150-450); White Blood Count 0.4 10^3/uL (4.0-11.0)
[2023-10-15 15:18] LABS: Alanine Aminotransferase 47 U/L (14-59); Albumin Globulin Ratio 0.7; Albumin Level 2.4 g/dL (3.4-5.0); Alkaline Phosphatase 128 U/L (46-116); Aspartate Amino Transferase 68 U/L (15-37); BUN Creatinine Ratio 18.1; Bilirubin Total 1.2 mg/dL (0.2-1.0); Calcium 8.3 mg/dL (8.5-10.1); Carbon Dioxide 21.3 mmol/L (21.0-32.0); Chloride 105 mmol/L (98-107); Estimated GFR (African America >60 (>=60); Estimated GFR (Non-African Ame >60 (>=60); Globulin 3.3 g/dL; Glucose 152 mg/dL (74-106); Potassium 4.3 mmol/L (3.5-5.1); Sodium 139 mmol/L (136-145); Total Protein 5.7 g/dL (6.4-8.2)
[2023-10-15 15:23] LABS: Lactate/Lactic Acid 2.3 mmol/L (0.4-2.0)
[2023-10-15 15:28] LABS: Lymphocytes Absolute Manual 0.32 10^3/uL (1.20-3.80)
[2023-10-15 15:30] LABS: Monocytes Absolute Manual 0.07 10^3/uL (0.30-0.80)
[2023-10-15 16:38] LABS: Bilirubin Urine NEGATIVE (NEGATIVE); Blood Urine NEGATIVE (NEGATIVE); Clarity Urine CLEAR (CLEAR); Color Urine YELLOW (YELLOW); Glucose Urine UA NEGATIVE (NEGATIVE); Ketones Urine NEGATIVE (NEGATIVE); Leukocyte Esterase Urine NEGATIVE (NEGATIVE); Nitrite Urine NEGATIVE (NEGATIVE); Protein Urine 100 mg/dL (NEG/TRACE); Specific Gravity Urine 1.025 (1.005-1.025); pH Urine 6.5 (5.0-9.0)
[2023-10-15 16:40] LABS: Urine Microscopic Indicated NO
[2023-10-15 18:18] LABS: Lactate/Lactic Acid 1.1 mmol/L (0.4-2.0)
--- NOTE | 2023-10-15 18:22 | US_ITS ---
[address] [address] Patient Name: DIANA HINOJOSA MRN: [id number] date: 1940 Sex: F Assigned Patient Location: Current Patient Location: Accession/Order Number: [id number] Exam Date: 10/15/2023 18:35 Report Date: 10/15/2023 20:48 At the request of: RORY WEST Procedure: US abdomen complete EXAMINATION:US abdomen complete INDICATION:Abd Pain COMPARISON:CT abdomen from the same day. TECHNIQUE: Real-time sonography of the abdomen was performed. FINDINGS: Liver: Normal in size, contour and echogenicity. No intrahepatic biliary ductal dilatation. Gallbladder: Part of the gallbladder is contracted. There is cholelithiasis present without gallbladder wall thickening or pericholecystic fluid. Common bile duct: The common bile duct is mildly dilated measuring 7.3 mm. No definitive choledocholithiasis is visualized in the common bile duct within the limits of this exam. The distal common bile duct is obscured due to bowel gas interference. Kidneys: The bilateral kidneys are normal in size and echogenicity. Right kidney measures 12.0 x 5.7 x 5.0 cm. Left kidney measures 10.4 x 4.8 x 5.5 cm. No hydronephrosis or renal calculus. There is an angiomyolipoma in the right kidney measuring 1.5 cm. There is a simple cyst in the left kidney measuring 2.8 cm. Pancreas: Obscured due to bowel gas interference. Spleen: Normal in size and appearance. Measures 10.0 cm. Visualized Abdominal aorta: Unremarkable Visualized Inferior vena cava: Unremarkable Miscellaneous: Incidental note is made of a right pleural effusion. US/US abdomen complete IMPRESSION: 1 . Contracted gallbladder with cholelithiasis. There is also mild dilation of the common bile duct measuring 7.3 mm. 2. Right pleural effusion is partially visualized on this exam. 3. Right renal angiomyolipoma. Simple left renal cyst. Electronically authenticated by: BERE AN Date: 10/15/2023 20:48
[2023-10-15 18:48] LABS: Amylase 5 U/L (25-115); Magnesium 1.6 mg/dL (1.8-2.4)
[2023-10-15 19:19] LABS: Adenovirus NOT DETECTED (NOT DETECTE); Bordetella parapertussis NOT DETECTED (NOT DETECTE); Coronavirus 229E NOT DETECTED (NOT DETECTE); Coronavirus HKU1 NOT DETECTED (NOT DETECTE); Coronavirus NL63 NOT DETECTED (NOT DETECTE); Coronavirus OC43 NOT DETECTED (NOT DETECTE); Human Metapneumovirus NOT DETECTED (NOT DETECTE); Human Rhinovirus/Enterovirus NOT DETECTED (NOT DETECTE); Influenza A NOT DETECTED (NOT DETECTE); Influenza B NOT DETECTED (NOT DETECTE); Mycoplasma pneumoniae NOT DETECTED (NOT DETECTE); Parainfluenza Virus 1 NOT DETECTED (NOT DETECTE); Parainfluenza Virus 2 NOT DETECTED (NOT DETECTE); Parainfluenza Virus 3 NOT DETECTED (NOT DETECTE); Parainfluenza Virus 4 NOT DETECTED (NOT DETECTE); Respiratory Syncytial Virus NOT DETECTED (NOT DETECTE); SARS-CoV-2 NOT DETECTED (NOT DETECTE)
--- NOTE | 2023-10-15 19:27 | P.HP_ITS ---
HPI H&P: HPI History of Present Illness Chief complaint: SOB PAHCYTOPENIA RT PLEURAL EFFISION Narrative: Patient had a great day yesterday, active doing well with family, had a good start for morning as well. And just at 1 show having increasing shortness of breath and severe generalized weakness. Does not describe fevers at home. Presented to the emergency room via squad, looks very ill to the emergency room staff. Evaluation shows a large right pleural effusion, still elevated troponin although it is trending down. I saw patient up on the medical surgical floor she does have some mild conversational dyspnea. Looks very weak compared to when she went home. Opioid HPI Opioid Management Most Recent Opioid Data: Last Pain Scale 9 10/15/23 14:56 Last Pain Assessment 10/15/23 18:00 Last MAR Pain Assessment 10/15/23 14:56 Last ORT Total Score 0 10/15/23 17:22 Last ORT Risk Category Low Risk 10/15/23 17:22 Review of Systems ROS Status of ROS 10 or more systems reviewed and unremark able except as noted in history and below [facility] Medical History (Updated 10/15/23 @ 16:35 by Edson Frausto MD) AML (acute myeloblastic leukemia) ?C92.00 - Acute myeloblastic leukemia, not having achieved remission (ICD-10) Malignancy ?C80.1 - Malignant (primary) neoplasm, unspecified (ICD-10) A-fib ?I48.91 - Unspecified atrial fibrillation (ICD-10) HTN (hypertension) ?I10 - Essential (primary) hypertension (ICD-10) CAD (coronary artery disease) ?I25.10 - Atherosclerotic heart disease of [place] coronary artery without angina pectoris (ICD-10) Hyperlipidemia ?E78.5 - Hyperlipidemia, unspecified (ICD-10) DM2 (diabetes mellitus, type 2) ?E11.9 - Type 2 diabetes mellitus without complications (ICD-10) Surgical History S/P CABG x 4 ?Z95.1 - Presence of aortocoronary bypass graft (ICD-10) Family History (Updated 10/11/23 @ 18:08 by Bonny Jaramillo) Mother Family history of CHF (congestive heart failure) Social History (Updated 10/11/23 @ 18:09 by Bonny Jaramillo) Within the past year, how often did you have a drink containing alcohol: monthly or less Within the past year, how many standard drinks containing alcohol did you have on a typical day: 1 or 2 Within the past year, how often did you have six or more drinks on one occasion: never Total score: 0 Score interpretation: A score less than 3 is consistent with normal alcohol consumption. Smoking status: Never smoker Non-prescribed substance use: denies use Previous occupational history: retired Highest level of school completed/degree received: some college, no degree Are you now , , , , never or living with a partner: In a typical week, how many times do you talk on the telephone with family, friends, or neighbors: 3 or more times per week How often do you get together with friends or relatives: 3 or more times per week How often do you attend mandaen or muslim services: never Do you belong to any clubs or organizations such as mandaen groups unions, fraternal or athletic groups, or school groups: no Total score: 2 Score interpretation: A score of greater than or equal to 2 indicates the lowest level of social isolation. Little interest or pleasure in doing things: several days Feeling down, depressed, or hopeless: several days Feel stressed/tense/nervous/anxious/difficulty sleeping: to some extent Life stressor details: cancer diagnosis Do you think of yourself as: straight/heterosexual Gender Identity: female Meds Home Medications and Allergies Home Medications ?Medication ?Instructions ?Recorded ?Confirmed ?Type acyclovir 400 mg tablet 400 mg PO Q12H 10/11/23 10/15/23 History allopurinol 300 mg tablet 300 mg PO DAILY 10/11/23 10/15/23 History alprazolam 0.5 mg tablet 0.5 mg PO Q12H PRN anxiety 10/11/23 10/15/23 History levofloxacin 500 mg tablet 500 mg PO Q24H 10/11/23 10/15/23 History posaconazole 100 mg tablet,delayed 300 mg PO Q24H 10/11/23 10/15/23 History release potassium chloride 20 mEq 20 meq PO DAILY 10/11/23 10/15/23 History tablet,extended release venetoclax 100 mg tablet 100 mg PO Q24H 10/11/23 10/15/23 History (Venclexta) isosorbide mononitrate 30 mg 30 mg PO DAILY #30 tabs 10/13/23 10/15/23 Rx tablet,extended release 24 hr metoprolol tartrate 50 mg tablet 50 mg PO Q12H #60 tabs 10/13/23 10/15/23 Rx amlodipine 5 mg tablet 5 mg PO DAILY 10/15/23 10/15/23 History atorvastatin 40 mg tablet 40 mg PO DAILY 10/15/23 10/15/23 History furosemide 20 mg tablet 20 mg PO DAILY 10/15/23 10/15/23 History metformin 500 mg tablet 500 mg PO BIDWM 10/15/23 10/15/23 History Allergies Allergy/AdvReac Type Severity Reaction Status Date / Time ORANGES AdvReac Uncoded 10/11/23 15:49 Exam Constitutional Vital Signs, click to edit/add: Last Vital Signs Temp 98.2 F 10/15/23 17:22 Pulse 68 10/15/23 17:22 Resp 18 10/15/23 17:22 BP 130/79 10/15/23 17:22 Pulse Ox 92 L 10/15/23 17:22 O2 Del Method Room Air 10/15/23 17:22 Common normals: no apparent distress, oriented x3, alert and well nourished General appearance: cooperative and other (Pale) Nutritional appearance: overweight Orientation/consciousness: Yes awake [facility] Common normals: normocephalic, head/scalp atraumatic, hearing grossly normal bilaterally, external nose normal and moist oral mucous membranes Eye Common normals: PERRL, EOMs intact bilaterally, conjunctivae normal and no scleral icterus Alignment: alignment normal Eyelid: eyelids normal Neck & C-Spine Common normals: full ROM, supple and no JVD Chest Common normals: inspection of chest normal Chest: symmetrical chest wall rise Respiratory Common normals: abnormal respiratory effort (Mild conversational dyspnea) Auscultation: breath sounds absent (He got just an) on the right and egophony right lower Cardio Common normals: no JVD, regular rate, regular rhythm, S1 normal heart sound, S2 normal heart sound, no gallops, no clicks, no rub and peripheral pulses 2+ throughout Heart sounds: murmur (HSM 2/6) GI Common normals: Normal to inspection, nondistended, normoactive bowel sounds present, soft to palpation, non-tender, no hepatosplenomegaly, no masses and no bruits Bladder/kidney exam: bladder normal to palpation Back & Pelvis Common normals: thoracic and lumbar spine normal to inspection Extremity Common normals: normal capillary refill; pedal edema General: normal exam except as noted Other: 1+ edema Neuro [place] Coma Scale: GCS not evaluated Common normals: CN's II-XII intact bilaterally, moves all extremities, no focal motor deficits and no sensory deficits noted Speech: speech normal Motor exam: strength 5/5 throughout Psych Common normals: mental status grossly normal, thought process normal, affect normal and activity/motor behavior normal Results Labs Labs: Short CBC 10/15/23 Range/Units 14:53 WBC 0.4 L* (4.0-11.0) 10^3/uL Hgb 7.7 L (12.0-16.0) g/dL Hct 22.7 L* (36.0-48.0) % Plt Count 9 L* (150-450) 10^3/uL BMP 10/15/23 14:53 Sodium 139 Potassium 4.3 Chloride 105 Carbon Dioxide 21.3 BUN 13.0 Creatinine 0.72 Glucose 152 H Calcium 8.3 L Liver Function 10/15/23 Range/Units 14:53 Total Bilirubin 1.2 H (0.2-1.0) mg/dL AST 68 H (15-37) U/L ALT 47 (14-59) U/L Alkaline Phosphatase 128 H (46-116) U/L Albumin 2.4 L (3.4-5.0) g/dL Urine 10/15/23 Range/Units 16:25 Urine Color Yellow (YELLOW) Urine Clarity Clear (CLEAR) Urine pH 6.5 (5.0-9.0) Ur Specific [place] 1.025 (1.005-1.025) Urine Protein 100 A (NEG/TRACE) mg/dL Urine Glucose (UA) Negative (NEGATIVE) mg/dL Assessment and Plan Assessment and Plan (1) Acute leukemia: Plan Respiratory distress, lactic acidosis, right pleural effusion, significant weakness possibly related to early sepsis. Started on IV antibiotics. Blood cultures and urine cultures pending. Patient high risk for sepsis secondary to acute myelogenous leukemia. Neutropenia-stable for her secondary to the leukemia Thrombocytopenia-this is down somewhat for her so we will transfuse 1 unit tonight. Large right pleural effusion and cardiomegaly-this is likely secondary to her N STEMI that she had at last admission. Also given fluid resuscitation secondary to the sepsis with her last admission. Will diurese this evening and track and trend her troponin and BNP. 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 Will check ultrasound of abdomen. Repeat labs in AM Inpatient criteria: Patient with acute leukemia in early stages of treatment-now with significant right pleural effusion generalized weakness hypoxia and lactic acidosis, medically necessary treatment will span more than 2 midnights. Maintain patient inpatient status. Urinary Catheter Management Urinary Catheter Management Straight: Cath placed during this visit: yes Urethral indwelling: No Insertion date: 10/15/23 Insertion time: 16:27
[2023-10-15 21:10] LABS: Glucometer 118 mg/dL (74-106)
[2023-10-15] MEDS: FUROSEMIDE 40 MG/4 ML VIAL IVP (21:25)
[2023-10-15] MEDS: LEVOFLOXACIN IN DEXTROSE 5 % 750 MG/150 ML IV.SOLN 100 MG IV (21:25)
[2023-10-15] MEDS: ACETAMINOPHEN 500 MG TABLET 1000 MG PO (21:26)
[2023-10-15] MEDS: METOPROLOL TARTRATE 50 MG TABLET PO (21:26)
[2023-10-15] MEDS: ENSURE HP 237 ML LIQUID PO (21:26)
[2023-10-15] MEDS: PROSTAT 15 GM PROTEIN/100 CAL 30 ML LIQUID PACKET PO (21:26)
[2023-10-15] MEDS: ACYCLOVIR 200 MG CAPSULE 400 MG PO (21:26)
[2023-10-15] MEDS: PIPERACILLIN SODIUM/TAZOBACTAM 3.375 GM in 0.9 % SODIUM CHLORIDE 50 ML IV (22:33)
[2023-10-16] VITALS (23 sets, daily range): BP systolic 101–132; BP diastolic 51–85; PULSE 58–68; TEMP 36.2–36.6; O2SAT 93–98
[2023-10-16 04:57] LABS: Lymphocytes Absolute Auto 0.2 10^3/uL (1.2-3.8); Lymphocytes Percent Auto 92.3 % (20.5-60.0); Mean Corpuscular Hemoglobin 28.3 pg (26.7-34.0); Mean Corpuscular Volume 88.5 fL (81.0-99.0); Mean Platelet Volume 11.5 fL (9.5-13.5); Monocytes Percent Auto 7.7 % (1.7-12.0); Red Blood Count 2.26 10^6/uL (4.20-5.40); Red Cell Distribution Width 16.3 % (11.0-15.0)
[2023-10-16 05:24] LABS: Alanine Aminotransferase 38 U/L (14-59); Albumin Globulin Ratio 0.7; Albumin Level 2.1 g/dL (3.4-5.0); Alkaline Phosphatase 103 U/L (46-116); Anion Gap 12.3; Aspartate Amino Transferase 47 U/L (15-37); Bilirubin Total 0.9 mg/dL (0.2-1.0); Calcium 8.1 mg/dL (8.5-10.1); Carbon Dioxide 25.1 mmol/L (21.0-32.0); Chloride 108 mmol/L (98-107); Estimated GFR (African America >60 (>=60); Estimated GFR (Non-African Ame >60 (>=60); Globulin 2.9 g/dL; Glucose 96 mg/dL (74-106); Potassium 3.4 mmol/L (3.5-5.1); Sodium 142 mmol/L (136-145)
[2023-10-16 06:03] LABS: Hemoglobin 6.4 g/dL (12.0-16.0); Platelet Count 6 10^3/uL (150-450); White Blood Count 0.3 10^3/uL (4.0-11.0)
[2023-10-16 06:04] LABS: Troponin I High Sensitivity 86.5 pg/mL (4.0-51.3)
[2023-10-16] MEDS: PIPERACILLIN SODIUM/TAZOBACTAM 3.375 GM in 0.9 % SODIUM CHLORIDE 50 ML IV ×2 (06:26→21:35)
[2023-10-16 06:55] LABS: INR 1.34
[2023-10-16 07:11] LABS: Partial Thromboplastin Time 41.6 sec (22.3-36.2)
[2023-10-16 08:24] LABS: Glucometer 92 mg/dL (74-106)
[2023-10-16] MEDS: PROSTAT 15 GM PROTEIN/100 CAL 30 ML LIQUID PACKET PO ×2 (09:53→21:34)
[2023-10-16] MEDS: POTASSIUM CHLORIDE 10 MEQ ER TABLET 20 MEQ PO (09:53)
[2023-10-16] MEDS: PANTOPRAZOLE SODIUM 40 MG VIAL IV (09:53)
[2023-10-16] MEDS: ENSURE HP 237 ML LIQUID PO ×2 (09:53→21:35)
[2023-10-16] MEDS: ACYCLOVIR 200 MG CAPSULE 400 MG PO ×2 (09:54→21:34)
[2023-10-16] MEDS: ATORVASTATIN CALCIUM 40 MG TABLET PO (09:54)
[2023-10-16] MEDS: METFORMIN HCL 500 MG TABLET PO ×2 (09:54→17:33)
[2023-10-16] MEDS: ALLOPURINOL 300 MG TABLET PO (09:54)
[2023-10-16] MEDS: ISOSORBIDE MONONITRATE 30 MG TAB.ER.24H PO (09:55)
--- NOTE | 2023-10-16 10:28 | P.PN_ITS ---
Progress Note: Subjective Subjective Interval history: Feels somewhat better today. Still fairly weak. Had extensive conversation with oncology. Exam Constitutional Vital Signs, click to edit/add: Last Vital Signs Temp 97.1 F L 10/16/23 08:00 Pulse 61 10/16/23 09:55 Resp 18 10/16/23 09:55 BP 101/61 10/16/23 10:09 Pulse Ox 93 L 10/16/23 09:55 O2 Del Method Room Air 10/16/23 08:23 Common normals: no apparent distress, oriented x3, alert and well nourished General appearance: cooperative and other (Pale) Nutritional appearance: overweight Orientation/consciousness: Yes awake [facility] Common normals: normocephalic, head/scalp atraumatic, hearing grossly normal bilaterally, external nose normal and moist oral mucous membranes Eye Common normals: PERRL, EOMs intact bilaterally, conjunctivae normal and no scleral icterus Alignment: alignment normal Eyelid: eyelids normal Neck & C-Spine Common normals: full ROM, supple and no JVD Chest Common normals: inspection of chest normal Chest: symmetrical chest wall rise Respiratory Common normals: abnormal respiratory effort (Mild conversational dyspnea) Auscultation: breath sounds absent (He got just an) on the right; no egophony Cardio Common normals: no JVD, regular rate, regular rhythm, S1 normal heart sound, S2 normal heart sound, no gallops, no clicks, no rub and peripheral pulses 2+ throughout Heart sounds: murmur (HSM 2/6) GI Common normals: Normal to inspection, nondistended, normoactive bowel sounds present, soft to palpation, non-tender, no hepatosplenomegaly, no masses and no bruits Bladder/kidney exam: bladder normal to palpation Back & Pelvis Common normals: thoracic and lumbar spine normal to inspection Extremity Common normals: normal capillary refill; pedal edema General: normal exam except as noted Other: 1+ edema Neuro [place] Coma Scale: GCS not evaluated Common normals: CN's II-XII intact bilaterally, moves all extremities, no focal motor deficits and no sensory deficits noted Speech: speech normal Motor exam: strength 5/5 throughout Psych Common normals: mental status grossly normal, thought process normal, affect normal and activity/motor behavior normal Progress Note: Objective Labs Labs: Short CBC 10/15/23 10/16/23 Range/Units 14:53 04:00 WBC 0.4 L* 0.3 L* (4.0-11.0) 10^3/uL Hgb 7.7 L 6.4 L* (12.0-16.0) g/dL Hct 22.7 L* 20.0 L* (36.0-48.0) % Plt Count 9 L* 6 L* (150-450) 10^3/uL BMP 10/15/23 10/16/23 14:53 04:00 Sodium 139 142 Potassium 4.3 3.4 L Chloride 105 108 H Carbon Dioxide 21.3 25.1 BUN 13.0 12.0 Creatinine 0.72 0.60 Glucose 152 H 96 Calcium 8.3 L 8.1 L Liver Function 10/15/23 10/16/23 Range/Units 14:53 04:00 Total Bilirubin 1.2 H 0.9 (0.2-1.0) mg/dL AST 68 H 47 H (15-37) U/L ALT 47 38 (14-59) U/L Alkaline Phosphatase 128 H 103 (46-116) U/L Albumin 2.4 L 2.1 L (3.4-5.0) g/dL Urine 10/15/23 Range/Units 16:25 Urine Color Yellow (YELLOW) Urine Clarity Clear (CLEAR) Urine pH 6.5 (5.0-9.0) Ur Specific [place] 1.025 (1.005-1.025) Urine Protein 100 A (NEG/TRACE) mg/dL Urine Glucose (UA) Negative (NEGATIVE) mg/dL Progress Note: A&P Assessment and Plan (1) Acute leukemia: Plan Respiratory distress, lactic acidosis, right pleural effusion, significant weakness possibly related to early sepsis. Started on IV antibiotics. Blood cultures and urine cultures pending. Patient high risk for sepsis secondary to acute myelogenous leukemia.-Somewhat improved, egophony has resolved, continue with current treatment plan Neutropenia-stable for her secondary to the leukemia Thrombocytopenia-this is down somewhat for her so we will transfuse 2 today. Large right pleural effusion and cardiomegaly-this is likely secondary to her N STEMI that she had at last admission. BNP is elevated. She will get Lasix between her units of blood. Hopefully better cardiac output with the transfusion will improve as well. Anemia-secondary to the AML-down today. 2 units of PRBCs given. Severe protein shana malnutrition-diet supplement NIDDM-insulin sliding scale Elevated liver function test-CT scan shows possible gallbladder stone. Ultrasound without significant acute findings. Coagulopathy-will give 1 dose of vitamin K today. Continue to monitor levels Inpatient criteria: Patient with acute leukemia in early stages of treatment-now with significant right pleural effusion generalized weakness hypoxia and lactic acidosis, medically necessary treatment will span more than 2 midnights. Maintain patient inpatient status. Urinary Catheter Management Urinary Catheter Management Straight: Cath placed during this visit: yes Urethral indwelling: No Insertion date: 10/15/23 Insertion time: 16:27
--- NOTE | 2023-10-16 10:41 | CM.NOTE ---
Rounds made with Dr. Tapia, consult to oncology for further recommendations. Cardiology will also be consulted.
[2023-10-16] MEDS: ACETAMINOPHEN 500 MG TABLET 1000 MG PO (10:57)
[2023-10-16] MEDS: DIPHENHYDRAMINE HCL 25 MG CAPSULE PO (10:58)
[2023-10-16] MEDS: METHYLPREDNISOLONE SOD SUCC PF 40 MG/ML VIAL IVP (10:58)
[2023-10-16] MEDS: 0.9 % SODIUM CHLORIDE 250 ML 10 ML IV ×2 (10:59→17:31)
[2023-10-16 11:14] LABS: Glucometer 132 mg/dL (74-106)
[2023-10-16] MEDS: POSACONAZOLE 100 MG 300 EACH PO (12:02)
[2023-10-16] MEDS: MAGNESIUM OXIDE 400 MG TABLET PO ×2 (12:03→21:35)
--- NOTE | 2023-10-16 12:15 | SWNOTE1 ---
Pt has [facility].
[2023-10-16] MEDS: PHYTONADIONE (VIT K1) 10 MG/ML AMPUL 5 MG PO (12:26)
--- NOTE | 2023-10-16 14:02 | SWNOTE1 ---
SW stopped in to speak with pt. She was on phone with Dr. Tapia's office in regards to his care. SW assisted pt in calling her daughter in regards to her . SW spoke to pt about her discharge plans. She voiced she was doing alright at home, but then had some diarrhea and then felt shortness of breath and told her grand daughter to take her to ED. She stated they called 911 and ended up here. She voices she is feeling better. Pt voiced her plan is to return home at discharge with her home health. She is agreeable to have therapy added to her home health. She stated she has a great support system as well. She has 4 daughters, 2 of them out of stated but they still help with finances and one is coming from [place] to help for a bit. She does use a walker at home. She stated next week she is supposed to start a new chemo. Pt's daughter also set someone to come to the home to clean the home every other week. At this time pt voices no other needs. SW will resume her [facility] at discharge and add therapy on.
--- NOTE | 2023-10-16 14:12 | PC.NURSE ---
Patient is asleep in her bed at this time
--- NOTE | 2023-10-16 14:21 | NUTR.NU ---
Myrna was readmitted to hospital 10/15/23 (last admission 10/11-10/13/23) with additional dx of pleural effusion, pancytopenia, and abnormal labs indicating inflammation and impaired cardiac function. She receives regular diet and nutritional supplements w/average 75% acceptance. Her weight has remained stable x 1 month, but she remains at high nutritional risk d/t dx leukemia, pancytopenia, and PCM. Will continue all current interventions and follow PRN.
[2023-10-16] MEDS: FUROSEMIDE 40 MG/4 ML VIAL IVP (15:04)
[2023-10-16 16:24] LABS: Glucometer 186 mg/dL (74-106)
--- NOTE | 2023-10-16 17:44 | PC.NURSE ---
tried to insesrt an iv so patient could receive her iv antibiotics but she refused for us to try to poke her.
--- NOTE | 2023-10-16 18:17 | PC.NURSE ---
Updated Dr. Tapia that this patient has refused for us to insert a peripheral iv line because she has a port. This patient also refused insulin stating she is afraid of her blood sugar dropping. Dr. Tapia is aware she is missing her 2 o clock dose and states she can call the shots. The next dose of antibiotics will be given when platelets are complete. also updated pharmacy that patient did not get 2 o'clock dose of zosyn.
[2023-10-16 18:58] LABS: A. calcoaceticus-baumannii Cpx NOT DETECTED (NOT DETECTE); Bacteroides fragilis NOT DETECTED (NOT DETECTE); Candida albicans NOT DETECTED (NOT DETECTE); Candida auris NOT DETECTED (NOT DETECTE); Candida glabrata NOT DETECTED (NOT DETECTE); Candida krusei NOT DETECTED (NOT DETECTE); Candida parapsilosis NOT DETECTED (NOT DETECTE); Candida tropicalis NOT DETECTED (NOT DETECTE); Cryptococcus neoformans/gattii NOT DETECTED (NOT DETECTE); Enterobacter cloacae complex NOT DETECTED (NOT DETECTE); Enterobacterales NOT DETECTED (NOT DETECTE); Enterococcus faecalis NOT DETECTED (NOT DETECTE); Enterococcus faecium NOT DETECTED (NOT DETECTE); Haemophilus influenzae NOT DETECTED (NOT DETECTE); Klebsiella aerogenes NOT DETECTED (NOT DETECTE); Klebsiella pneumoniae group NOT DETECTED (NOT DETECTE); Listeria monocytogenes NOT DETECTED (NOT DETECTE); Neisseria meningitidis NOT DETECTED (NOT DETECTE); Proteus spp. NOT DETECTED (NOT DETECTE); Pseudomonas aeruginosa NOT DETECTED (NOT DETECTE); Salmonella spp. NOT DETECTED (NOT DETECTE); Serratia marcescens NOT DETECTED (NOT DETECTE); Staphylococcus epidermidis NOT DETECTED (NOT DETECTE); Staphylococcus lugdunensis NOT DETECTED (NOT DETECTE); Staphylococcus spp. NOT DETECTED (NOT DETECTE); Stenotrophomonas maltophilia NOT DETECTED (NOT DETECTE); Streptococcus agalactiae NOT DETECTED (NOT DETECTE); Streptococcus pneumoniae NOT DETECTED (NOT DETECTE); Streptococcus pyogenes NOT DETECTED (NOT DETECTE); Streptococcus spp. NOT DETECTED (NOT DETECTE)
--- NOTE | 2023-10-16 20:47 | PC.NURSE ---
Patient ambulated into bathroom to void. Missed measurement cup for urine. Void X 1 bright yellow urine. No complaints voiced.
[2023-10-16] MEDS: METOPROLOL TARTRATE 50 MG TABLET PO (21:35)
[2023-10-16 21:38] LABS: Glucometer 161 mg/dL (74-106)
[2023-10-17] VITALS (10 sets, daily range): BP systolic 123–150; BP diastolic 59–76; PULSE 64–80; TEMP 36.1–36.8; O2SAT 93–100
[2023-10-17 04:42] LABS: Hematocrit 24.3 % (36.0-48.0); Hemoglobin 8.3 g/dL (12.0-16.0); Lymphocytes Absolute Auto 0.1 10^3/uL (1.2-3.8); Lymphocytes Percent Auto 76.5 % (20.5-60.0); Mean Corpuscular HGB Conc 34.2 g/dL (29.9-35.2); Mean Corpuscular Hemoglobin 29.6 pg (26.7-34.0); Mean Corpuscular Volume 86.8 fL (81.0-99.0); Mean Platelet Volume 11.7 fL (9.5-13.5); Monocytes Percent Auto 23.5 % (1.7-12.0); Red Cell Distribution Width 15.2 % (11.0-15.0)
[2023-10-17 05:02] LABS: Magnesium 1.8 mg/dL (1.8-2.4)
[2023-10-17 05:09] LABS: Prothrombin Time 12.6 sec (9.0-11.6)
[2023-10-17 05:15] LABS: Alanine Aminotransferase 116 U/L (14-59); Albumin Globulin Ratio 0.8; Albumin Level 2.3 g/dL (3.4-5.0); Alkaline Phosphatase 106 U/L (46-116); Aspartate Amino Transferase 115 U/L (15-37); BUN Creatinine Ratio 37.9; Bilirubin Total 1.2 mg/dL (0.2-1.0); Carbon Dioxide 25.4 mmol/L (21.0-32.0); Chloride 107 mmol/L (98-107); Estimated GFR (African America >60 (>=60); Estimated GFR (Non-African Ame >60 (>=60); Globulin 2.9 g/dL; Glucose 147 mg/dL (74-106); Potassium 3.4 mmol/L (3.5-5.1); Sodium 142 mmol/L (136-145); Total Protein 5.2 g/dL (6.4-8.2); Troponin I High Sensitivity 39.9 pg/mL (4.0-51.3)
[2023-10-17] MEDS: PIPERACILLIN SODIUM/TAZOBACTAM 3.375 GM in 0.9 % SODIUM CHLORIDE 50 ML IV ×3 (05:43→23:34)
[2023-10-17 06:13] LABS: Partial Thromboplastin Time 44.9 sec (22.3-36.2)
[2023-10-17 06:14] LABS: Platelet Count 15 10^3/uL (150-450); White Blood Count 0.2 10^3/uL (4.0-11.0)
[2023-10-17 08:42] LABS: Source blood
--- NOTE | 2023-10-17 09:14 | P.PN_ITS ---
Progress Note: Subjective Subjective Interval history: It looks a little more energetic than yesterday. Exam Constitutional Vital Signs, click to edit/add: Last Vital Signs Temp 97.4 F L 10/17/23 03:34 Pulse 69 10/17/23 03:34 Resp 16 10/17/23 03:34 BP 127/71 10/17/23 03:34 Pulse Ox 93 L 10/17/23 08:47 O2 Del Method Room Air 10/17/23 08:47 Common normals: no apparent distress, oriented x3, alert and well nourished General appearance: cooperative and other (Pale) Nutritional appearance: overweight Orientation/consciousness: Yes awake [facility] Common normals: normocephalic, head/scalp atraumatic, hearing grossly normal bilaterally, external nose normal and moist oral mucous membranes Eye Common normals: PERRL, EOMs intact bilaterally, conjunctivae normal and no scleral icterus Alignment: alignment normal Eyelid: eyelids normal Neck & C-Spine Common normals: full ROM, supple and no JVD Chest Common normals: inspection of chest normal Chest: symmetrical chest wall rise Respiratory Common normals: normal respiratory effort (Mild conversational dyspnea) Auscultation: breath sounds absent (He got just an) on the right; no egophony Cardio Common normals: no JVD, regular rate, regular rhythm, S1 normal heart sound, S2 normal heart sound, no gallops, no clicks, no rub and peripheral pulses 2+ throughout Heart sounds: murmur (HSM 2/6) GI Common normals: Normal to inspection, nondistended, normoactive bowel sounds present, soft to palpation, non-tender, no hepatosplenomegaly, no masses and no bruits Bladder/kidney exam: bladder normal to palpation Back & Pelvis Common normals: thoracic and lumbar spine normal to inspection Extremity Common normals: normal capillary refill; pedal edema General: normal exam except as noted Other: 1+ edema Neuro [place] Coma Scale: GCS not evaluated Common normals: CN's II-XII intact bilaterally, moves all extremities, no focal motor deficits and no sensory deficits noted Speech: speech normal Motor exam: strength 5/5 throughout Psych Common normals: mental status grossly normal, thought process normal, affect normal and activity/motor behavior normal Progress Note: Objective Labs Labs: Short CBC 10/17/23 Range/Units 04:15 WBC 0.2 L* (4.0-11.0) 10^3/uL Hgb 8.3 L (12.0-16.0) g/dL Hct 24.3 L (36.0-48.0) % Plt Count 15 L* (150-450) 10^3/uL BMP 10/17/23 04:15 Sodium 142 Potassium 3.4 L Chloride 107 Carbon Dioxide 25.4 BUN 22.0 H Creatinine 0.58 Glucose 147 H Calcium 8.0 L Liver Function 10/17/23 Range/Units 04:15 Total Bilirubin 1.2 H (0.2-1.0) mg/dL AST 115 H (15-37) U/L ALT 116 H (14-59) U/L Alkaline Phosphatase 106 (46-116) U/L Albumin 2.3 L (3.4-5.0) g/dL Progress Note: A&P Assessment and Plan (1) Acute leukemia: Plan Respiratory distress, lactic acidosis, right pleural effusion, significant weakness possibly related to early sepsis. Started on IV antibiotics. Blood cx + but no identification yet. May need snf IV AB Neutropenia-down for her secondary to the leukemia Thrombocytopenia-this is down somewhat for her so we will transfuse 2 today. Large right pleural effusion and cardiomegaly-this is likely secondary to her NSTEMI that she had at last admission. 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 2 units of PRBCs given yestereday with good results Severe protein shana malnutrition-diet supplement NIDDM-insulin sliding scale Elevated liver function test-CT scan shows possible gallbladder stone. Ultrasound without significant acute findings. Coagulopathy-will give 1 dose of vitamin K again today. Continue to monitor levels Inpatient criteria: Patient with acute leukemia in early stages of treatment-now with significant right pleural effusion generalized weakness hypoxia and lactic acidosis, medically necessary treatment will span more than 2 midnights. Maintain patient inpatient status. Urinary Catheter Management Urinary Catheter Management Straight: Cath placed during this visit: yes Urethral indwelling: No Insertion date: 10/15/23 Insertion time: 16:27
--- NOTE | 2023-10-17 09:30 | CM.NOTE ---
Rounds made with Dr. Tapia, no discharge today. Continue IV antibiotics and possible discharge to home tomorrow.
--- NOTE | 2023-10-17 09:50 | CM.NOTE ---
2nd Notice of Important Message From Medicare discussed with pt, pt denies any questions or concerns.
[2023-10-17] MEDS: PANTOPRAZOLE SODIUM 40 MG VIAL IV (10:45)
[2023-10-17] MEDS: MAGNESIUM OXIDE 400 MG TABLET PO ×2 (10:45→20:44)
[2023-10-17] MEDS: ISOSORBIDE MONONITRATE 30 MG TAB.ER.24H PO (10:46)
[2023-10-17] MEDS: ATORVASTATIN CALCIUM 40 MG TABLET PO (10:47)
[2023-10-17] MEDS: POTASSIUM CHLORIDE 10 MEQ ER TABLET 20 MEQ PO (10:47)
[2023-10-17] MEDS: ALLOPURINOL 300 MG TABLET PO (10:47)
[2023-10-17] MEDS: ALPRAZOLAM 0.5 MG TABLET PO (10:50)
[2023-10-17] MEDS: METOPROLOL TARTRATE 50 MG TABLET PO ×2 (10:50→20:44)
[2023-10-17] MEDS: ACYCLOVIR 200 MG CAPSULE 400 MG PO ×2 (10:51→20:44)
[2023-10-17] MEDS: METFORMIN HCL 500 MG TABLET PO ×2 (10:51→18:20)
[2023-10-17] MEDS: POSACONAZOLE 100 MG 300 EACH PO (10:51)
[2023-10-17] MEDS: PHYTONADIONE (VIT K1) 10 MG/ML AMPUL 5 MG PO (10:59)
[2023-10-17 11:08] LABS: Glucometer 228 mg/dL (74-106)
[2023-10-17] MEDS: ENSURE HP 237 ML LIQUID PO ×2 (11:10→20:44)
[2023-10-17] MEDS: 0.9 % SODIUM CHLORIDE 250 ML 10 ML IV (15:49)
[2023-10-17 16:51] LABS: Glucometer 125 mg/dL (74-106)
[2023-10-17 20:10] LABS: Glucometer 133 mg/dL (74-106)
[2023-10-17] MEDS: LEVOFLOXACIN IN DEXTROSE 5 % 750 MG/150 ML IV.SOLN 100 MG IV (20:42)
[2023-10-17] MEDS: PROSTAT 15 GM PROTEIN/100 CAL 30 ML LIQUID PACKET PO (20:44)
[2023-10-18] VITALS (18 sets, daily range): BP systolic 105–158; BP diastolic 54–72; PULSE 24–73; TEMP 36.1–37.1; O2SAT 92–99
[2023-10-18 00:48] LABS: Adenovirus F 40/41 NOT DETECTED (NOT DETECTE); Astrovirus NOT DETECTED (NOT DETECTE); Campylobacter NOT DETECTED (NOT DETECTE); Cryptosporidium NOT DETECTED (NOT DETECTE); Cyclospora cayetanensis NOT DETECTED (NOT DETECTE); Entamoeba histolytica NOT DETECTED (NOT DETECTE); Enteroaggregative E.coli NOT DETECTED (NOT DETECTE); Enteropathogenic E.coli NOT DETECTED (NOT DETECTE); Enterotoxigenic E. coli NOT DETECTED (NOT DETECTE); Giardia lamblia NOT DETECTED (NOT DETECTE); Norovirus GI/GII NOT DETECTED (NOT DETECTE); Plesiomonas shigelloides NOT DETECTED (NOT DETECTE); Rotavirus A NOT DETECTED (NOT DETECTE); Salmonella NOT DETECTED (NOT DETECTE); Sapovirus NOT DETECTED (NOT DETECTE); Shiga-like toxin-producing E.C NOT DETECTED (NOT DETECTE); Shigella/Enteroinvasive E.coli NOT DETECTED (NOT DETECTE); Vibrio NOT DETECTED (NOT DETECTE); Vibrio cholerae NOT DETECTED (NOT DETECTE); Yersinia enterocolitica NOT DETECTED (NOT DETECTE)
[2023-10-18] MEDS: ALPRAZOLAM 0.5 MG TABLET PO ×2 (03:19→21:04)
[2023-10-18] MEDS: LOPERAMIDE HCL 1 MG/7.5 ML LIQUID PO (03:25)
[2023-10-18 05:31] LABS: Hematocrit 25.3 % (36.0-48.0); Hemoglobin 8.5 g/dL (12.0-16.0); Lymphocytes Absolute Auto 0.2 10^3/uL (1.2-3.8); Lymphocytes Percent Auto 70.8 % (20.5-60.0); Mean Corpuscular HGB Conc 33.6 g/dL (29.9-35.2); Mean Corpuscular Hemoglobin 29.5 pg (26.7-34.0); Mean Corpuscular Volume 87.8 fL (81.0-99.0); Mean Platelet Volume 12.8 fL (9.5-13.5); Monocytes Absolute Auto 0.1 10^3/uL (0.3-0.8); Neutrophils Percent Auto 4.2 % (43.0-75.0); Red Blood Count 2.88 10^6/uL (4.20-5.40); Red Cell Distribution Width 15.6 % (11.0-15.0)
[2023-10-18 05:54] LABS: INR 1.17; Partial Thromboplastin Time 39.2 sec (22.3-36.2); Prothrombin Time 12.3 sec (9.0-11.6)
[2023-10-18 06:09] LABS: Alanine Aminotransferase 139 U/L (14-59); Albumin Globulin Ratio 0.9; Albumin Level 2.5 g/dL (3.4-5.0); Alkaline Phosphatase 105 U/L (46-116); Anion Gap 13.7; Aspartate Amino Transferase 86 U/L (15-37); Bilirubin Total 1.2 mg/dL (0.2-1.0); Calcium 8.5 mg/dL (8.5-10.1); Carbon Dioxide 25.1 mmol/L (21.0-32.0); Chloride 106 mmol/L (98-107); Estimated GFR (African America >60 (>=60); Estimated GFR (Non-African Ame >60 (>=60); Globulin 2.8 g/dL; Glucose 105 mg/dL (74-106); Potassium 3.8 mmol/L (3.5-5.1); Sodium 141 mmol/L (136-145); Total Protein 5.3 g/dL (6.4-8.2); Troponin I High Sensitivity 42.6 pg/mL (4.0-51.3)
[2023-10-18 06:13] LABS: BUN Creatinine Ratio 31.3; Platelet Count 10 10^3/uL (150-450); White Blood Count 0.2 10^3/uL (4.0-11.0)
[2023-10-18 07:32] LABS: Glucometer 111 mg/dL (74-106)
[2023-10-18] MEDS: ACYCLOVIR 200 MG CAPSULE 400 MG PO ×2 (08:03→20:52)
[2023-10-18] MEDS: METFORMIN HCL 500 MG TABLET PO ×2 (08:03→17:48)
[2023-10-18] MEDS: ALLOPURINOL 300 MG TABLET PO (08:03)
[2023-10-18] MEDS: MAGNESIUM OXIDE 400 MG TABLET PO ×2 (08:03→20:52)
[2023-10-18] MEDS: ATORVASTATIN CALCIUM 40 MG TABLET PO (08:03)
[2023-10-18] MEDS: PANTOPRAZOLE SODIUM 40 MG VIAL IV (08:03)
[2023-10-18] MEDS: ENSURE HP 237 ML LIQUID PO ×2 (08:03→20:52)
[2023-10-18] MEDS: METOPROLOL TARTRATE 50 MG TABLET PO ×2 (08:03→20:52)
[2023-10-18] MEDS: POTASSIUM CHLORIDE 10 MEQ ER TABLET 20 MEQ PO (08:04)
[2023-10-18] MEDS: ISOSORBIDE MONONITRATE 30 MG TAB.ER.24H PO (08:04)
[2023-10-18] MEDS: PIPERACILLIN SODIUM/TAZOBACTAM 3.375 GM in 0.9 % SODIUM CHLORIDE 50 ML IV ×3 (08:04→23:25)
[2023-10-18] MEDS: PROSTAT 15 GM PROTEIN/100 CAL 30 ML LIQUID PACKET PO ×2 (08:04→20:52)
--- NOTE | 2023-10-18 09:15 | P.PN_ITS ---
Progress Note: Subjective Subjective Interval history: Looks more lethargic today, she had a rough night last night with recurrent diarrhea. C. difficile negative. Exam Constitutional Vital Signs, click to edit/add: Last Vital Signs Temp 98.4 F 10/18/23 08:15 Pulse 69 10/18/23 08:15 Resp 18 10/18/23 08:15 BP 133/54 10/18/23 08:15 Pulse Ox 92 L 10/18/23 08:15 O2 Del Method Room Air 10/18/23 08:15 Common normals: no apparent distress, oriented x3, alert and well nourished General appearance: cooperative and other (Pale) Nutritional appearance: overweight Orientation/consciousness: Yes awake HENMT Common normals: normocephalic, head/scalp atraumatic, hearing grossly normal bilaterally, external nose normal and moist oral mucous membranes Eye Common normals: PERRL, EOMs intact bilaterally, conjunctivae normal and no scleral icterus Alignment: alignment normal Eyelid: eyelids normal Neck & C-Spine Common normals: full ROM, supple and no JVD Chest Common normals: inspection of chest normal Chest: symmetrical chest wall rise Respiratory Common normals: normal respiratory effort (Mild conversational dyspnea) Auscultation: rales (Rales returned in bases) and breath sounds absent (He got just an) on the right; no egophony Cardio Common normals: no JVD, regular rate, regular rhythm, S1 normal heart sound, S2 normal heart sound, no gallops, no clicks, no rub and peripheral pulses 2+ throughout Heart sounds: murmur (HSM 2/6) GI Common normals: Normal to inspection, nondistended, normoactive bowel sounds present, soft to palpation, non-tender, no hepatosplenomegaly, no masses and no bruits Bladder/kidney exam: bladder normal to palpation Back & Pelvis Common normals: thoracic and lumbar spine normal to inspection Extremity Common normals: normal capillary refill; pedal edema General: normal exam except as noted Other: 1+ edema Neuro Geena Coma Scale: GCS not evaluated Common normals: CN's II-XII intact bilaterally, moves all extremities, no focal motor deficits and no sensory deficits noted Speech: speech normal Motor exam: strength 5/5 throughout Psych Common normals: mental status grossly normal, thought process normal, affect normal and activity/motor behavior normal Progress Note: Objective Labs Labs: Short CBC 10/18/23 Range/Units 05:14 WBC 0.2 L* (4.0-11.0) 10^3/uL Hgb 8.5 L (12.0-16.0) g/dL Hct 25.3 L (36.0-48.0) % Plt Count 10 L* (150-450) 10^3/uL BMP 10/18/23 05:14 Sodium 141 Potassium 3.8 Chloride 106 Carbon Dioxide 25.1 BUN 20.0 H Creatinine 0.64 Glucose 105 Calcium 8.5 Liver Function 10/18/23 Range/Units 05:14 Total Bilirubin 1.2 H (0.2-1.0) mg/dL AST 86 H (15-37) U/L ALT 139 H (14-59) U/L Alkaline Phosphatase 105 (46-116) U/L Albumin 2.5 L (3.4-5.0) g/dL Progress Note: A&P Assessment and Plan (1) Acute leukemia: Plan Respiratory distress, lactic acidosis, right pleural effusion, significant weakness possibly related to early sepsis. Awaiting more identification of positive blood culture. Continue with current antibiotics. Neutropenia-down for her secondary to the leukemia Thrombocytopenia-this is down somewhat for her-will continue to monitor though Large right pleural effusion and cardiomegaly with elevated BNP consistent with pulmonary edema and systolic heart failure-this is likely secondary to her NSTEMI that she had at last admission. Ralanny have returned, try patient on a Bumex drip. 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 Stable today so we will continue with current treatment plan no transfusion today Severe protein shana malnutrition-diet supplement NIDDM-insulin sliding scale Elevated liver function test-CT scan shows possible gallbladder stone. 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 Maintain patient inpatient status. With positive blood culture she likely has a 2-3 more day hospital stay. With progressive weakness will look into rehab. Urinary Catheter Management Urinary Catheter Management Straight: Cath placed during this visit: yes Urethral indwelling: No Insertion date: 10/15/23 Insertion time: 16:27
--- NOTE | 2023-10-18 09:24 | CM.NOTE ---
Rounds made with Dr. Tapia, pt c/o sever weakness today with difficulty ambulating. Pt had diarrhea that started through the night and was unable to rest. Dr. Tapia did discuss with pt about possibility of skilled therapy at discharge, Pt will talk more with her daughter today regarding discharge planning but at this point plans on returning home with services.
[2023-10-18 11:07] LABS: Glucometer 135 mg/dL (74-106)
[2023-10-18] MEDS: POSACONAZOLE 100 MG 300 EACH PO (11:37)
[2023-10-18] MEDS: BUMETANIDE 10 MG in 0.9 % SODIUM CHLORIDE 160 ML 20 MG IV (11:37)
[2023-10-18] MEDS: HYOSCYAMINE SULFATE 0.125 MG TAB.SUBL 0.25 MG SL ×3 (11:38→21:02)
--- NOTE | 2023-10-18 12:21 | PT.DAILY ---
Physical Therapy Daily Note PT Daily Note/Assess Start: 10/17/23 07:26 Freq: Status: Active Protocol: Document 10/18/23 11:05 CARLYN (Rec: 10/18/23 12:20 CARLYN [id number]) Physical Therapy Daily Note/Assessment Time In/Time Out Time In 11:05 Time Out 11:35 Subjective Subjective Patient reports very tired, and R leg has just on her . Back pain and spasms. Daughter in room and helps encourage patient to participate with PT. Patient agrees. Therapeutic Exercise Time Therapeutic Exercise Minutes (minutes) 10 Therapeutic Exercise Units 1 Therapeutic Exercise Treatment Therapeutic Exercise Treatment Supine exercises with isometrics and AROM 10 reps each. At first patient reports can not move R LE but with 1 tactile cues is able to complete exercise on own. Therapeutic Activity Time Therapeutic Activity Minutes (minutes) 20 Therapeutic Activity Units 1 Therapeutic Activity Treatment Bed Mobility Ability Standby Assistance Chair Transfer Ability Contact Guard Assist,Minimum Assist Therapeutic Activity Comments Supine to sit SBA but patient does adjust hospital bed for assistance. Sit to stand from EOB at RW min assist. Gait with RW 20' into bathroom CGA. Moves slow but no LOB. Sit to stand from low commode was CGA/SBA. Patient able to don/ doff brief and perform rolan- care with supervision. Gait 30 ' with RW CGA to chair. Total Physical Therapy Time Total Therapy Minutes 30 Total Physical Therapy Units 2 Summary Daily Note Summary Patient is moving slow with more complaints of R leg weakness and back pain. Denies pain in R hip. Was able to ambulate greater than 20' with use of RW and SBA, this was distance daughter reports patient needs to ambulate at home. Completes transfers and gait with little assistance, just slowly. Patient would be okay with HH PT at [facility] unless showing a significant decline in strength then would benefit from skilled PT.
[2023-10-18] MEDS: ACETAMINOPHEN 500 MG TABLET 1000 MG PO (15:31)
[2023-10-18] MEDS: 0.9 % SODIUM CHLORIDE 250 ML 10 ML IV (17:46)
[2023-10-18 17:51] LABS: Glucometer 118 mg/dL (74-106)
[2023-10-18 20:30] LABS: Glucometer 112 mg/dL (74-106)
[2023-10-19] VITALS (25 sets, daily range): BP systolic 109–150; BP diastolic 56–78; PULSE 60–78; TEMP 36.3–37.2; O2SAT 93–97
[2023-10-19 06:11] LABS: Hematocrit 25.8 % (36.0-48.0); Hemoglobin 8.6 g/dL (12.0-16.0); Lymphocytes Absolute Auto 0.2 10^3/uL (1.2-3.8); Lymphocytes Percent Auto 70.8 % (20.5-60.0); Mean Corpuscular HGB Conc 33.3 g/dL (29.9-35.2); Mean Corpuscular Hemoglobin 29.3 pg (26.7-34.0); Mean Corpuscular Volume 87.8 fL (81.0-99.0); Monocytes Absolute Auto 0.1 10^3/uL (0.3-0.8); Neutrophils Percent Auto 4.2 % (43.0-75.0); Red Blood Count 2.94 10^6/uL (4.20-5.40); Red Cell Distribution Width 15.6 % (11.0-15.0)
[2023-10-19] MEDS: HYOSCYAMINE SULFATE 0.125 MG TAB.SUBL 0.25 MG SL ×4 (06:15→21:25)
[2023-10-19 06:16] LABS: Platelet Count 6 10^3/uL (150-450); White Blood Count 0.2 10^3/uL (4.0-11.0)
[2023-10-19 06:35] LABS: Alanine Aminotransferase 110 U/L (14-59); Albumin Globulin Ratio 0.8; Albumin Level 2.5 g/dL (3.4-5.0); Alkaline Phosphatase 98 U/L (46-116); Anion Gap 10.8; Aspartate Amino Transferase 50 U/L (15-37); BUN Creatinine Ratio 27.9; Bilirubin Total 1.6 mg/dL (0.2-1.0); Calcium 8.4 mg/dL (8.5-10.1); Carbon Dioxide 31.4 mmol/L (21.0-32.0); Chloride 103 mmol/L (98-107); Estimated GFR (African America >60 (>=60); Estimated GFR (Non-African Ame >60 (>=60); Glucose 101 mg/dL (74-106); Sodium 143 mmol/L (136-145); Total Protein 5.5 g/dL (6.4-8.2)
[2023-10-19 06:41] LABS: Potassium 2.2 mmol/L (3.5-5.1)
[2023-10-19] MEDS: POTASSIUM CHLORIDE 40 MEQ in 0.9 % SODIUM CHLORIDE 250 ML 67.5 MEQ IV (07:28)
[2023-10-19] MEDS: 0.9 % SODIUM CHLORIDE 250 ML 10 ML IV (07:32)
[2023-10-19] MEDS: ACYCLOVIR 200 MG CAPSULE 400 MG PO ×2 (07:34→21:25)
[2023-10-19] MEDS: METFORMIN HCL 500 MG TABLET PO ×2 (07:35→16:40)
[2023-10-19] MEDS: METOPROLOL TARTRATE 50 MG TABLET PO ×2 (07:36→21:26)
[2023-10-19 07:58] LABS: Glucometer 105 mg/dL (74-106)
[2023-10-19] MEDS: ENSURE HP 237 ML LIQUID PO ×2 (08:00→21:25)
[2023-10-19] MEDS: ALLOPURINOL 300 MG TABLET PO (08:01)
[2023-10-19] MEDS: MAGNESIUM OXIDE 400 MG TABLET PO ×2 (08:01→21:26)
[2023-10-19] MEDS: PANTOPRAZOLE SODIUM 40 MG VIAL IV (08:01)
[2023-10-19] MEDS: POTASSIUM CHLORIDE 10 MEQ ER TABLET 20 MEQ PO ×3 (08:02→21:25)
[2023-10-19] MEDS: ISOSORBIDE MONONITRATE 30 MG TAB.ER.24H PO (08:02)
[2023-10-19] MEDS: ATORVASTATIN CALCIUM 40 MG TABLET PO (08:04)
[2023-10-19] MEDS: PROSTAT 15 GM PROTEIN/100 CAL 30 ML LIQUID PACKET PO ×2 (08:05→21:25)
--- NOTE | 2023-10-19 08:45 | CM.NOTE ---
Rounds made with Dr. Tapia. Diarrhea and breathing improved per Myrna. Dr. Tapia to order Platelet infusion today. Myrna verbalizes understanding.
--- NOTE | 2023-10-19 09:13 | P.PN_ITS ---
Progress Note: Subjective Subjective Interval history: Patient deftly looks better than the previous morning. She did sleep a little bit better last night. Diarrhea has resolved Exam Constitutional Vital Signs, click to edit/add: Last Vital Signs Temp 97.5 F L 10/19/23 08:23 Pulse 69 10/19/23 08:02 Resp 16 10/19/23 08:02 BP 147/63 H 10/19/23 07:00 Pulse Ox 95 10/19/23 08:02 O2 Del Method Room Air 10/19/23 03:37 Common normals: no apparent distress, oriented x3, alert and well nourished General appearance: cooperative and other (Pale) Nutritional appearance: overweight Orientation/consciousness: Yes awake HENMT Common normals: normocephalic, head/scalp atraumatic, hearing grossly normal bilaterally, external nose normal and moist oral mucous membranes Eye Common normals: PERRL, EOMs intact bilaterally, conjunctivae normal and no scleral icterus Alignment: alignment normal Eyelid: eyelids normal Neck & C-Spine Common normals: full ROM, supple and no JVD Chest Common normals: inspection of chest normal Chest: symmetrical chest wall rise Respiratory Common normals: normal respiratory effort (Mild conversational dyspnea) Auscultation: rales (Rales returned in bases) and breath sounds absent (He got just an) on the right; no egophony Cardio Common normals: no JVD, regular rate, regular rhythm, S1 normal heart sound, S2 normal heart sound, no gallops, no clicks, no rub and peripheral pulses 2+ throughout Heart sounds: murmur (HSM 2/6) GI Common normals: Normal to inspection, nondistended, normoactive bowel sounds present, soft to palpation, non-tender, no hepatosplenomegaly, no masses and no bruits Bladder/kidney exam: bladder normal to palpation Back & Pelvis Common normals: thoracic and lumbar spine normal to inspection Extremity Common normals: normal capillary refill; pedal edema General: normal exam except as noted Other: 1+ edema Neuro Geena Coma Scale: GCS not evaluated Common normals: CN's II-XII intact bilaterally, moves all extremities, no focal motor deficits and no sensory deficits noted Speech: speech normal Motor exam: strength 5/5 throughout Psych Common normals: mental status grossly normal, thought process normal, affect normal and activity/motor behavior normal Progress Note: Objective Labs Labs: Short CBC 10/19/23 Range/Units 05:37 WBC 0.2 L* (4.0-11.0) 10^3/uL Hgb 8.6 L (12.0-16.0) g/dL Hct 25.8 L (36.0-48.0) % Plt Count 6 L* (150-450) 10^3/uL BMP 10/19/23 05:37 Sodium 143 Potassium 2.2 L* Chloride 103 Carbon Dioxide 31.4 BUN 17.0 Creatinine 0.61 Glucose 101 Calcium 8.4 L Liver Function 10/19/23 Range/Units 05:37 Total Bilirubin 1.6 H (0.2-1.0) mg/dL AST 50 H (15-37) U/L ALT 110 H (14-59) U/L Alkaline Phosphatase 98 (46-116) U/L Albumin 2.5 L (3.4-5.0) g/dL Progress Note: A&P Assessment and Plan (1) Acute leukemia: Plan Respiratory distress, lactic acidosis, right pleural effusion, significant weakness possibly related to early sepsis. 1 out of the 4 blood cultures obtained showed bacillus but species but not anthrax . Discussed case with hematology oncology and with only 1 out of the 4 being positive but doubt this is a bloodstream infection. May need repeat cultures. Neutropenia-down for her secondary to the leukemia Thrombocytopenia-Down again today, will transfuse Large right pleural effusion and cardiomegaly with elevated BNP consistent with pulmonary edema and systolic heart failure-this is likely secondary to her NSTEMI that she had at last admission. On exam is a little bit better today. Repeat Bumex drip. She had good results yesterday with 5 L out. 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 Stable today so we will continue with current treatment plan no transfusion today Severe protein shana malnutrition-diet supplement NIDDM-insulin sliding scale Elevated liver function test-CT scan shows possible gallbladder stone. 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 Maintain patient inpatient status. With positive blood culture she likely has a 2-3 more day hospital stay. With progressive weakness will look into rehab. Possible discharge to home tomorrow if platelet count can remain stable and good diuresis with IV Bumex Urinary Catheter Management Urinary Catheter Management Straight: Cath placed during this visit: yes Urethral indwelling: No Insertion date: 10/15/23 Insertion time: 16:27
[2023-10-19] MEDS: DIPHENHYDRAMINE HCL 25 MG CAPSULE PO (10:01)
[2023-10-19] MEDS: ESCITALOPRAM 10 MG TABLET PO (10:02)
[2023-10-19] MEDS: ACETAMINOPHEN 500 MG TABLET 1000 MG PO (10:02)
[2023-10-19] MEDS: POSACONAZOLE 100 MG 300 EACH PO (10:03)
[2023-10-19] MEDS: PIPERACILLIN SODIUM/TAZOBACTAM 3.375 GM in 0.9 % SODIUM CHLORIDE 50 ML IV ×2 (10:11→21:26)
[2023-10-19 11:46] LABS: Glucometer 125 mg/dL (74-106)
[2023-10-19 13:30] LABS: Anion Gap 11.7; BUN Creatinine Ratio 21.2; Calcium 8.2 mg/dL (8.5-10.1); Carbon Dioxide 29.5 mmol/L (21.0-32.0); Chloride 102 mmol/L (98-107); Estimated GFR (African America >60 (>=60); Estimated GFR (Non-African Ame >60 (>=60); Glucose 108 mg/dL (74-106); Potassium 3.2 mmol/L (3.5-5.1); Sodium 140 mmol/L (136-145)
[2023-10-19] MEDS: BUMETANIDE 10 MG in 0.9 % SODIUM CHLORIDE 160 ML 20 MG IV (14:00)
[2023-10-19 16:17] LABS: Glucometer 116 mg/dL (74-106)
--- NOTE | 2023-10-19 16:59 | SWNOTE1 ---
SW spoke with pt's 2 daughters and pt in room. A very long discussion about rehab and home health were discussed. SW is not aware of any facilities that take pt's insurance and recommended pt and family look at various facilities so they have a list of facilities they would like SW to check. Family in agreement. SW let them know if pt wants rehab SW can not do anything about it until Sunday. Family and pt voice understanding. Pt is not sure what she wants to do at this time.
[2023-10-19] MEDS: LEVOFLOXACIN IN DEXTROSE 5 % 750 MG/150 ML IV.SOLN 100 MG IV (19:45)
[2023-10-19 20:32] LABS: Glucometer 137 mg/dL (74-106)
[2023-10-20] VITALS (21 sets, daily range): BP systolic 106–144; BP diastolic 46–71; PULSE 66–75; TEMP 36.6–36.9; O2SAT 92–94
[2023-10-20] MEDS: ACETAMINOPHEN 500 MG TABLET 1000 MG PO (00:26)
[2023-10-20] MEDS: PIPERACILLIN SODIUM/TAZOBACTAM 3.375 GM in 0.9 % SODIUM CHLORIDE 50 ML IV ×3 (04:08→20:59)
[2023-10-20 04:50] LABS: Hematocrit 24.7 % (36.0-48.0); Hemoglobin 8.2 g/dL (12.0-16.0); Lymphocytes Absolute Auto 0.2 10^3/uL (1.2-3.8); Lymphocytes Percent Auto 65.5 % (20.5-60.0); Mean Corpuscular HGB Conc 33.2 g/dL (29.9-35.2); Mean Corpuscular Volume 87.3 fL (81.0-99.0); Mean Platelet Volume 10.2 fL (9.5-13.5); Monocytes Absolute Auto 0.1 10^3/uL (0.3-0.8); Neutrophils Percent Auto 3.5 % (43.0-75.0); Red Blood Count 2.83 10^6/uL (4.20-5.40); Red Cell Distribution Width 15.3 % (11.0-15.0)
[2023-10-20 05:01] LABS: Platelet Count 19 10^3/uL (150-450); White Blood Count 0.3 10^3/uL (4.0-11.0)
[2023-10-20] MEDS: HYOSCYAMINE SULFATE 0.125 MG TAB.SUBL 0.25 MG SL ×3 (05:10→21:01)
[2023-10-20] MEDS: POTASSIUM CHLORIDE 10 MEQ ER TABLET 20 MEQ PO ×3 (05:11→21:01)
[2023-10-20 05:20] LABS: Alanine Aminotransferase 84 U/L (14-59); Albumin Globulin Ratio 0.8; Albumin Level 2.4 g/dL (3.4-5.0); Alkaline Phosphatase 94 U/L (46-116); Anion Gap 8.4; Aspartate Amino Transferase 34 U/L (15-37); BUN Creatinine Ratio 17.6; Bilirubin Total 1.6 mg/dL (0.2-1.0); Calcium 8.1 mg/dL (8.5-10.1); Carbon Dioxide 36.8 mmol/L (21.0-32.0); Chloride 98 mmol/L (98-107); Estimated GFR (African America >60 (>=60); Estimated GFR (Non-African Ame >60 (>=60); Globulin 3.2 g/dL; Glucose 88 mg/dL (74-106); Sodium 141 mmol/L (136-145); Total Protein 5.6 g/dL (6.4-8.2)
[2023-10-20 05:27] LABS: Potassium 2.2 mmol/L (3.5-5.1)
--- NOTE | 2023-10-20 06:53 | PC.NURSE ---
voided not enough to measure
[2023-10-20] MEDS: POTASSIUM CHLORIDE 40 MEQ in 0.9 % SODIUM CHLORIDE 250 ML 67.5 MEQ IV (07:24)
[2023-10-20] MEDS: 0.9 % SODIUM CHLORIDE 250 ML 10 ML IV (07:24)
[2023-10-20] MEDS: ACYCLOVIR 200 MG CAPSULE 400 MG PO ×2 (08:35→20:59)
[2023-10-20] MEDS: ALLOPURINOL 300 MG TABLET PO (08:35)
[2023-10-20] MEDS: ISOSORBIDE MONONITRATE 30 MG TAB.ER.24H PO (08:35)
[2023-10-20] MEDS: METOPROLOL TARTRATE 50 MG TABLET PO ×2 (08:35→20:59)
[2023-10-20] MEDS: ATORVASTATIN CALCIUM 40 MG TABLET PO (08:36)
[2023-10-20] MEDS: ENSURE HP 237 ML LIQUID PO ×2 (08:36→20:59)
[2023-10-20] MEDS: ESCITALOPRAM 10 MG TABLET PO (08:36)
[2023-10-20] MEDS: PANTOPRAZOLE SODIUM 40 MG VIAL IV (08:36)
[2023-10-20] MEDS: MAGNESIUM OXIDE 400 MG TABLET PO ×2 (08:36→20:59)
[2023-10-20] MEDS: METFORMIN HCL 500 MG TABLET PO ×2 (09:17→17:01)
--- NOTE | 2023-10-20 09:45 | P.PN_ITS ---
Progress Note: Subjective Subjective Interval history: Patient up in chair, unable to eat breakfast Exam Constitutional Vital Signs, click to edit/add: Last Vital Signs Temp 98 F 10/20/23 07:33 Pulse 68 10/20/23 08:00 Resp 20 10/20/23 07:33 BP 119/51 10/20/23 07:33 Pulse Ox 93 L 10/20/23 07:33 O2 Del Method Room Air 10/20/23 07:33 Common normals: no apparent distress, oriented x3, alert and well nourished General appearance: cooperative and other (Pale) Nutritional appearance: overweight Orientation/consciousness: Yes awake HENMT Common normals: normocephalic, head/scalp atraumatic, hearing grossly normal bilaterally, external nose normal and moist oral mucous membranes Eye Common normals: PERRL, EOMs intact bilaterally, conjunctivae normal and no scl eral icterus Alignment: alignment normal Eyelid: eyelids normal Neck & C-Spine Common normals: full ROM, supple and no JVD Chest Common normals: inspection of chest normal Chest: symmetrical chest wall rise Respiratory Common normals: normal respiratory effort (Mild conversational dyspnea) Auscultation: rales (Rales persisting but better) and breath sounds absent (He got just an) on the right; no egophony Cardio Common normals: no JVD, regular rate, regular rhythm, S1 normal heart sound, S2 normal heart sound, no gallops, no clicks, no rub and peripheral pulses 2+ throughout Heart sounds: murmur (HSM 2/6) GI Common normals: Normal to inspection, nondistended, normoactive bowel sounds present, soft to palpation, non-tender, no hepatosplenomegaly, no masses and no bruits Bladder/kidney exam: bladder normal to palpation Back & Pelvis Common normals: thoracic and lumbar spine normal to inspection Extremity Common normals: normal capillary refill; pedal edema General: normal exam except as noted Other: 1+ edema Neuro Geena Coma Scale: GCS not evaluated Common normals: CN's II-XII intact bilaterally, moves all extremities, no focal motor deficits and no sensory deficits noted Speech: speech normal Motor exam: strength 5/5 throughout Psych Common normals: mental status grossly normal, thought process normal, affect normal and activity/motor behavior normal Progress Note: Objective Labs Labs: Short CBC 10/20/23 Range/Units 04:13 WBC 0.3 L* (4.0-11.0) 10^3/uL Hgb 8.2 L (12.0-16.0) g/dL Hct 24.7 L (36.0-48.0) % Plt Count 19 L* (150-450) 10^3/uL BMP 10/19/23 10/20/23 13:03 04:13 Sodium 140 141 Potassium 3.2 L 2.2 L* Chloride 102 98 Carbon Dioxide 29.5 36.8 H BUN 17.0 12.0 Creatinine 0.80 0.68 Glucose 108 H 88 Calcium 8.2 L 8.1 L Liver Function 10/20/23 Range/Units 04:13 Total Bilirubin 1.6 H (0.2-1.0) mg/dL AST 34 (15-37) U/L ALT 84 H (14-59) U/L Alkaline Phosphatase 94 (46-116) U/L Albumin 2.4 L (3.4-5.0) g/dL Progress Note: A&P Assessment and Plan (1) Acute leukemia: Plan Respiratory distress, lactic acidosis, right pleural effusion, significant weakness possibly related to early sepsis. 1 out of the 4 blood cultures obtained showed bacillus but species but not anthrax . Discussed case with hematology oncology and with only 1 out of the 4 being positive but doubt this is a bloodstream infection. May need repeat cultures. Neutropenia-slightly better Thrombocytopenia-Down again today-hold off on transfusion Large right pleural effusion and cardiomegaly with elevated BNP consistent with pulmonary edema and systolic heart failure-this is likely secondary to her NSTEMI that she had at last admission. 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 Stable today so we will continue with current treatment plan no transfusion today Severe protein shana malnutrition-diet supplement NIDDM-insulin sliding scale Elevated liver function test-CT scan shows possible gallbladder stone. 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 Anamika self patient inpatient status. With positive blood culture she likely has a 2- 3 more day hospital stay. With progressive weakness will look into rehab. Possible discharge to home tomorrow if platelet count can remain stable and good diuresis with IV Bumex Urinary Catheter Management Urinary Catheter Management Straight: Cath placed during this visit: yes Urethral indwelling: No Insertion date: 10/15/23 Insertion time: 16:27
--- NOTE | 2023-10-20 09:45 | P.PN_ITS ---
Progress Note: Subjective Subjective Interval history: Patient deftly looks better than the previous morning. She did sleep a little bit better last night. Diarrhea has resolved Exam Constitutional Vital Signs, click to edit/add: Last Vital Signs Temp 98 F 10/20/23 07:33 Pulse 68 10/20/23 08:00 Resp 20 10/20/23 07:33 BP 119/51 10/20/23 07:33 Pulse Ox 93 L 10/20/23 07:33 O2 Del Method Room Air 10/20/23 07:33 Progress Note: Objective Labs Labs: Short CBC 10/20/23 Range/Units 04:13 WBC 0.3 L* (4.0-11.0) 10^3/uL Hgb 8.2 L (12.0-16.0) g/dL Hct 24.7 L (36.0-48.0) % Plt Count 19 L* (150-450) 10^3/uL BMP 10/19/23 10/20/23 13:03 04:13 Sodium 140 141 Potassium 3.2 L 2.2 L* Chloride 102 98 Carbon Dioxide 29.5 36.8 H BUN 17.0 12.0 Creatinine 0.80 0.68 Glucose 108 H 88 Calcium 8.2 L 8.1 L Liver Function 10/20/23 Range/Units 04:13 Total Bilirubin 1.6 H (0.2-1.0) mg/dL AST 34 (15-37) U/L ALT 84 H (14-59) U/L Alkaline Phosphatase 94 (46-116) U/L Albumin 2.4 L (3.4-5.0) g/dL Progress Note: A&P Assessment and Plan (1) Acute leukemia: Urinary Catheter Management Urinary Catheter Management Straight: Cath placed during this visit: yes Urethral indwelling: No Insertion date: 10/15/23 Insertion time: 16:27
[2023-10-20] MEDS: BUMETANIDE 10 MG in 0.9 % SODIUM CHLORIDE 160 ML 20 MG IV (10:15)
--- NOTE | 2023-10-20 11:03 | PT.DAILY ---
Physical Therapy Daily Note PT Daily Note/Assess Start: 10/17/23 07:26 Freq: Status: Active Protocol: Document 10/20/23 09:50 ESHURANDALL (Rec: 10/20/23 11:03 [email or web address] [id number]) Physical Therapy Daily Note/Assessment Time In/Time Out Time In 09:50 Time Out 10:10 Subjective Subjective Patient reports achy all over. R hip, R leg, back, it just hurt. Patient also reports that R LE just does not want to work. Nursing does report to therapist that patient did lose footing with transfer from chair to commode earlier this morning where patient was safely lowered. Therapeutic Exercise Time Therapeutic Exercise Minutes (minutes) 7 Therapeutic Exercise Units 0 Therapeutic Exercise Treatment Therapeutic Exercise Treatment Seated exercises with AROM of L LE, and AAROM of R LE 10 reps each. Patient reports is just unable to lift R LE on own due to weakness vs pain. Therapeutic Activity Time Therapeutic Activity Minutes (minutes) 13 Therapeutic Activity Units 1 Therapeutic Activity Treatment Bed Mobility Ability Maximum Assist Chair Transfer Ability Contact Guard Assist,Minimum Assist Therapeutic Activity Comments Sit to stand from chair min assist. Static standing with UE support and no UE support without LOB. Patient reports urgency in needing to urinate assisted patient to commode with CGA no LOB. Sit to stand from commode was SBA with no issues, as patient just stood up. Gait 15' with RW CGA no LOB. Patient moves slow with antalgic pattern using RW. Sit to stand from EOB was CGA. Sit to supine was max assist at R LE. Unable to lift up into bed. Total Physical Therapy Time Total Therapy Minutes 20 Total Physical Therapy Units 1 Summary Daily Note Summary Patient continues to require assistance with bed mobility and transfers. Max gait distance today was 15' with antalgic pattern. Patient did not demonstrate any LOB with therapy today, just slow movements. At this time due to weakness and pain levels Pt would recommend skilled rehab vs PT to regain strength and safety with functional activities and gait.
[2023-10-20] MEDS: METOCLOPRAMIDE HCL 10 MG/2 ML VIAL IVP ×3 (11:18→21:02)
[2023-10-20] MEDS: POSACONAZOLE 100 MG 300 EACH PO (11:27)
[2023-10-20] MEDS: ONDANSETRON PF 4 MG/2 ML VIAL IV (12:55)
[2023-10-20 15:20] LABS: Anion Gap 8.1; BUN Creatinine Ratio 17.9; Calcium 8.4 mg/dL (8.5-10.1); Carbon Dioxide 35.6 mmol/L (21.0-32.0); Chloride 98 mmol/L (98-107); Estimated GFR (African America >60 (>=60); Estimated GFR (Non-African Ame >60 (>=60); Glucose 99 mg/dL (74-106); Sodium 139 mmol/L (136-145)
[2023-10-20 15:50] LABS: Potassium 2.7 mmol/L (3.5-5.1)
[2023-10-20 16:40] LABS: Glucometer 106 mg/dL (74-106)
[2023-10-20] MEDS: POTASSIUM CHLORIDE IN WATER 10 MEQ/100 ML PIGGYBACK 100 MEQ IV ×4 (17:09→20:04)
[2023-10-20] MEDS: PROSTAT 15 GM PROTEIN/100 CAL 30 ML LIQUID PACKET PO (20:59)
[2023-10-20 22:29] LABS: Glucometer 102 mg/dL (74-106)
[2023-10-20 23:25] LABS: Potassium 2.6 mmol/L (3.5-5.1)
[2023-10-21] VITALS (10 sets, daily range): BP systolic 143–144; BP diastolic 79–82; PULSE 65–71; TEMP 36.6–36.8; O2SAT 92
[2023-10-21] MEDS: POTASSIUM CHLORIDE IN WATER 10 MEQ/100 ML PIGGYBACK 100 MEQ IV ×4 (00:18→03:20)
[2023-10-21] MEDS: PIPERACILLIN SODIUM/TAZOBACTAM 3.375 GM in 0.9 % SODIUM CHLORIDE 50 ML IV ×2 (04:22→11:02)
[2023-10-21] MEDS: POTASSIUM CHLORIDE 10 MEQ ER TABLET 20 MEQ PO (05:20)
[2023-10-21] MEDS: HYOSCYAMINE SULFATE 0.125 MG TAB.SUBL 0.25 MG SL (05:20)
[2023-10-21 06:46] LABS: Hemoglobin 7.9 g/dL (12.0-16.0); Mean Corpuscular HGB Conc 33.1 g/dL (29.9-35.2); Mean Corpuscular Hemoglobin 29.5 pg (26.7-34.0); Mean Corpuscular Volume 89.2 fL (81.0-99.0); Mean Platelet Volume 11.9 fL (9.5-13.5); Red Blood Count 2.68 10^6/uL (4.20-5.40); Red Cell Distribution Width 15.8 % (11.0-15.0)
[2023-10-21 06:57] LABS: Magnesium 1.5 mg/dL (1.8-2.4)
[2023-10-21 07:06] LABS: INR 1.18; Prothrombin Time 12.4 sec (9.0-11.6)
[2023-10-21 07:10] LABS: Alanine Aminotransferase 56 U/L (14-59); Albumin Globulin Ratio 0.7; Albumin Level 2.2 g/dL (3.4-5.0); Alkaline Phosphatase 90 U/L (46-116); Anion Gap 7.9; Aspartate Amino Transferase 18 U/L (15-37); Bilirubin Total 1.5 mg/dL (0.2-1.0); Calcium 8.3 mg/dL (8.5-10.1); Carbon Dioxide 35.2 mmol/L (21.0-32.0); Chloride 99 mmol/L (98-107); Estimated GFR (African America >60 (>=60); Estimated GFR (Non-African Ame >60 (>=60); Globulin 3.2 g/dL; Glucose 85 mg/dL (74-106); Potassium 3.1 mmol/L (3.5-5.1); Sodium 139 mmol/L (136-145); Total Protein 5.4 g/dL (6.4-8.2)
[2023-10-21 07:18] LABS: Hematocrit 23.9 % (36.0-48.0); Platelet Count 15 10^3/uL (150-450); White Blood Count 0.4 10^3/uL (4.0-11.0)
[2023-10-21 07:20] LABS: Partial Thromboplastin Time 42.4 sec (22.3-36.2)
[2023-10-21 07:32] LABS: Lymphocytes Absolute Manual 0.28 10^3/uL (1.20-3.80); Monocytes Absolute Manual 0.08 10^3/uL (0.30-0.80); Segmented Neut Absolute Manual 0.02 10^3/uL (1.4-6.5)
[2023-10-21] MEDS: ATORVASTATIN CALCIUM 40 MG TABLET PO (08:07)
[2023-10-21] MEDS: METOCLOPRAMIDE HCL 10 MG/2 ML VIAL IVP ×2 (08:07→11:02)
[2023-10-21] MEDS: METOPROLOL TARTRATE 50 MG TABLET PO (08:07)
[2023-10-21] MEDS: ALLOPURINOL 300 MG TABLET PO (08:08)
[2023-10-21] MEDS: ESCITALOPRAM 10 MG TABLET PO (08:08)
[2023-10-21] MEDS: ISOSORBIDE MONONITRATE 30 MG TAB.ER.24H PO (08:08)
[2023-10-21] MEDS: MAGNESIUM OXIDE 400 MG TABLET PO (08:08)
[2023-10-21] MEDS: ENSURE HP 237 ML LIQUID PO (08:08)
[2023-10-21] MEDS: PANTOPRAZOLE SODIUM 40 MG VIAL IV (08:08)
[2023-10-21] MEDS: METFORMIN HCL 500 MG TABLET PO (08:08)
[2023-10-21] MEDS: ACYCLOVIR 200 MG CAPSULE 400 MG PO (08:08)
[2023-10-21] MEDS: 0.9 % SODIUM CHLORIDE 250 ML 10 ML IV (08:25)
--- NOTE | 2023-10-21 09:16 | P.DS_ITS ---
DS: Providers Provider Date of admission: 10/15/23 17:13 Primary care physician: Armani Tapia MD Consults: 10/15/23 18:18 Consult to Pharmacy Routine Consulting Provider: Reason for consultation: Please Emmet me when Med Rec is Updated Has provider been notified: No Occupational Therapy Eval and Treat Routine Reason for consultation: Only if needed for Rehab Has provider been notified: No Physical Therapy Eval and Treat Routine Reason for consultation: Eval and Treat Has provider been notified: No 10/15/23 18:24 Consult to Oncology Routine Consulting Provider: Aneta Krueger Reason for consultation: know to him - Acute leukemia Has provider been notified: No 10/16/23 06:11 Consult to Senior Application Security Consultant Routine Reason for consult:: Group Home Other reason:: rehab 10/18/23 09:19 Consult to Senior Application Security Consultant Routine Reason for consult:: Group Home DS: Diagnosis Discharge Diagnosis (1) Acute leukemia: Plan Respiratory distress, lactic acidosis, right pleural effusion, significant weakness possibly related to early sepsis. 1 out of the 4 blood cultures obtained showed bacillus but species but not anthrax . Discussed case with hematology oncology and with only 1 out of the 4 being positive but doubt this is a bloodstream infection. May need repeat cultures. Neutropenia-slightly better Thrombocytopenia-Down again today-hold off on transfusion Large right pleural effusion and cardiomegaly with elevated BNP consistent with pulmonary edema and systolic heart failure-this is likely secondary to her NSTEMI that she had at last admission. 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 Stable today so we will continue with current treatment plan no transfusion today Severe protein shana malnutrition-diet supplement NIDDM-insulin sliding scale Elevated liver function test-CT scan shows possible gallbladder stone. 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 Maintain patient inpatient status. With positive blood culture she likely has a 2-3 more day hospital stay. With progressive weakness will look into rehab. Possible discharge to home tomorrow if platelet count can remain stable and good diuresis with IV Bumex DS: Summary Hospital Course Hospital Course: Patient was admitted with increasing weakness. Low-grade fevers at home. With her recent diagnosis of acute leukemia patient was admitted for sepsis. Patient did return 1 blood culture positive for bacillus, the other 3 were all negative. Patient had several transfusions for platelets and PRBC secondary to the leukemia. Also acute combined congestive heart failure this was diuresed well with a Bumex drip without affecting her renal function. Long discussion about home versus continuing diuresis and monitoring, patient felt comfortable with going home, she did ambulate in the hallway well without assistance. This is much improved over the last 48 hours prior to discharge. At this point she is stable for discharge. She will have her follow-up visit in 2 days with oncology. Medications see list. See me in the office later this week. Time Spent with Patient Time attestation: Total time spent providing and/or coordinating discharge services: Exam Constitutional Vital Signs, click to edit/add: Last Vital Signs Temp 98 F 10/21/23 07:53 Pulse 69 10/21/23 07:55 Resp 20 10/21/23 07:53 BP 143/79 H 10/21/23 07:53 Pulse Ox 92 L 10/21/23 07:53 O2 Del Method Room Air 10/21/23 07:53 Common normals: no apparent distress, oriented x3, alert and well nourished General appearance: cooperative and other (Pale) Nutritional appearance: overweight Orientation/consciousness: Yes awake HENMT Common normals: normocephalic, head/scalp atraumatic, hearing grossly normal bilaterally, external nose normal and moist oral mucous membranes Eye Common normals: PERRL, EOMs intact bilaterally, conjunctivae normal and no scleral icterus Alignment: alignment normal Eyelid: eyelids normal Neck & C-Spine Common normals: full ROM, supple and no JVD Chest Common normals: inspection of chest normal Chest: symmetrical chest wall rise Respiratory Common normals: normal respiratory effort (nocnversaina dsna) Auscultation: breath sounds absent (He got just an) on the right; no rales and no egophony Cardio Common normals: no JVD, regular rate, regular rhythm, S1 normal heart sound, S2 normal heart sound, no gallops, no clicks, no rub and peripheral pulses 2+ throughout Heart sounds: murmur (HSM 2/6) GI Common normals: Normal to inspection, nondistended, normoactive bowel sounds present, soft to palpation, non-tender, no hepatosplenomegaly, no masses and no bruits Bladder/kidney exam: bladder normal to palpation Back & Pelvis Common normals: thoracic and lumbar spine normal to inspection Extremity Common normals: normal capillary refill; pedal edema General: normal exam except as noted Other: 1+ edema Neuro Geena Coma Scale: GCS not evaluated Common normals: CN's II-XII intact bilaterally, moves all extremities, no focal motor deficits and no sensory deficits noted Speech: speech normal Motor exam: strength 5/5 throughout Psych Common normals: mental status grossly normal, thought process normal, affect normal and activity/motor behavior normal DS: Data Data Completed and Pending Labs on day of discharge: Labs from last 24 hours 10/21/23 10/20/23 10/20/23 06:35 23:04 22:28 WBC 0.4 L* RBC 2.68 L Hgb 7.9 L Hct 23.9 L* MCV 89.2 MCH 29.5 MCHC 33.1 RDW 15.8 H Plt Count 15 L* MPV 11.9 Seg Neuts % (Manual) 6.0 Lymphocytes % (Manual) 72.0 H Monocytes % (Manual) 22.0 H Eosinophils % (Manual) 0.0 L Basophils % (Manual) 0.0 L Neutrophils # (Manual) 0.02 L Lymphocytes # (Manual) 0.28 L Monocytes # (Manual) 0.08 L Eosinophils # (Manual) 0.00 Basophils # (Manual) 0.00 PT 12.4 H INR 1.18 APTT 42.4 H* Sodium 139 Potassium 3.1 L 2.6 L* Chloride 99 Carbon Dioxide 35.2 H Anion Gap 7.9 BUN 15.0 Creatinine 0.75 Est GFR ( Amer) >60 Est GFR (Non-Af Amer) >60 BUN/Creatinine Ratio 20.0 Glucose 85 Calcium 8.3 L Magnesium 1.5 L Total Bilirubin 1.5 H AST 18 ALT 56 Alkaline Phosphatase 90 NT-Pro-B Natriuret Pep 4254.0 H* Total Protein 5.4 L Albumin 2.2 L Globulin 3.2 Albumin/Globulin Ratio 0.7 POC Glucose 102 10/20/23 10/20/23 16:40 15:03 WBC RBC Hgb Hct MCV MCH MCHC RDW Plt Count MPV Seg Neuts % (Manual) Lymphocytes % (Manual) Monocytes % (Manual) Eosinophils % (Manual) Basophils % (Manual) Neutrophils # (Manual) Lymphocytes # (Manual) Monocytes # (Manual) Eosinophils # (Manual) Basophils # (Manual) PT INR APTT Sodium 139 Potassium 2.7 L* Chloride 98 Carbon Dioxide 35.6 H Anion Gap 8.1 BUN 14.0 Creatinine 0.78 Est GFR ( Amer) >60 Est GFR (Non-Af Amer) >60 BUN/Creatinine Ratio 17.9 Glucose 99 Calcium 8.4 L Magnesium Total Bilirubin AST ALT Alkaline Phosphatase NT-Pro-B Natriuret Pep Total Protein Albumin Globulin Albumin/Globulin Ratio POC Glucose 106 Preliminary micro results at discharge 10/15/23 19:13 - Preliminary Blood Bacillus sp not B. anthracis 10/15/23 19:03 Blood Culture Result 1 - Preliminary Blood NO GROWTH AT 36-48 HOURS. FINAL TO FOLLOW. Discharge Plan Discharge Disposition: Home Health Service Discharge Medications: New magnesium oxide 400 mg (241.3 mg magnesium) Tablet 400 mg PO TID Qty: 90 11RF Ensure Active Protein-Muscle Liquid 1 ea PO BID Qty: 5688 11RF escitalopram oxalate 10 mg Tablet 10 mg PO QD Qty: 30 11RF potassium chloride 10 mEq Tablet,Er Particles/Crystals 20 meq PO TID Qty: 90 11RF levofloxacin 500 mg tablet 500 mg PO DAILY 21 Days Qty: 21 0RF Continued acyclovir 400 mg tablet 400 mg PO Q12H allopurinol 300 mg tablet 300 mg PO DAILY levofloxacin 500 mg tablet 500 mg PO Q24H posaconazole 100 mg tablet,delayed release (DR/EC) 300 mg PO Q24H Venclexta 100 mg tablet 100 mg PO Q24H alprazolam 0.5 mg tablet 0.5 mg PO Q12H PRN (Reason: anxiety) metoprolol tartrate 50 mg Tablet 50 mg PO Q12H Qty: 60 11RF isosorbide mononitrate 30 mg tablet extended release 24 hr 30 mg PO DAILY Qty: 30 11RF furosemide 20 mg tablet 20 mg PO DAILY atorvastatin 40 mg tablet 40 mg PO DAILY metformin 500 mg tablet 500 mg PO BIDWM Discontinued potassium chloride 20 mEq tablet extended release 20 meq PO DAILY amlodipine 5 mg tablet 5 mg PO DAILY Activity: ambulate only with your walker Diet: advance to your usual diet Print Language: Hungarian Patient Instructions: Potassium Chloride (By mouth), Levofloxacin (By mouth), Escitalopram (By mouth), Magnesium (By mouth), Sepsis (DC), Weakness (DC) Forms: Portal Instructions Follow Up Appointments: Call Dr Tapia office on SundayOctober 21 in am to schedule follow up for next week [phone] Discharge Date/Time: 10/21/23 14:19
[2023-10-21] MEDS: POTASSIUM CHLORIDE 40 MEQ in 0.9 % SODIUM CHLORIDE 250 ML 67.5 MEQ IV (09:30)
[2023-10-21] MEDS: SPIRONOLACTONE 25 MG TABLET PO (09:31)
[2023-10-21] MEDS: BUMETANIDE 1 MG/4 ML VIAL IVP (09:31)
[2023-10-21] MEDS: PHYTONADIONE (VIT K1) 10 MG/ML AMPUL 5 MG PO (09:33)
[2023-10-21] MEDS: POSACONAZOLE 100 MG 300 EACH PO (11:10)
[2023-10-21] MEDS: HEPARIN SODIUM (PORCINE) PF LOCK FLUSH 500 UNIT/5 ML SYRINGE IV (13:16)
--- NOTE | 2023-10-22 15:23 | CM.DCFOLLOWU ---
10/21- 1st attempt. No answer
--- NOTE | 2023-10-23 15:57 | SWNOTE1 ---
Pt was discharged on Sunday. SW sent over the CRF, dc med rec, and dc summary to [facility]. CEM did this on 10/23/23. SW received a call back from Nita at [facility] and they were never able to open a case on pt due to her re-admitting to hospital. They do not have the staffing to take her back at this time. CEM sent referral to [facility], due to pt's insurance SW is not sure who will accept.
--- NOTE | 2023-10-23 16:08 | SWNOTE1 ---
SW spoke with pt and updated her on the home health, she did request that SW called her daughter, Yuli. SW called daughter Yuli and left her a message.
--- NOTE | 2023-10-25 14:52 | SWNOTE1 ---
CEM attempted to get pt set up with [facility], [facility], and [facility]. None of these companies are able to accept. [facility] does not take her insurance. At this point CEM will call pt and let her know.
--- NOTE | 2023-10-25 15:26 | CM.DCFOLLOWU ---
Person spoke with: Yuli How are you feeling? Mom is having a good week this week. How is your pain? ok Did you understand your discharge instructions? yes Do you have any questions about your discharge instructions? no Were you given any prescriptions at discharge? yes Were you able to get your prescriptions filled? yes Do you understand how to take your medications as ordered?yes Do you have any questions about your follow up appointment and do you plan to keep your follow up appointment? yes Is there anything else that you would like to discuss? Daughter had questions on Home Health Questions/Comments/Concerns/Other:
--- NOTE | 2023-10-25 15:42 | SWNOTE1 ---
SW spoke to pt's daughter, Yuli. SW explained that at this time SW has tried several HH companies and none of them are able to accept her insurance. Pt's daughter was still thinking she had medicare and medicaid? SW explained to pt's daughter that she does not. SW let her know that pt has [facility] medicare life adv plan. Pt's daughter is going to speak with her sister to see if she knows more about this insurance. clinical quality manager was able to get on the insurance website and [facility], [facility], [facility], and [facility] are the only ones that accept. [facility] is closed and [facility] and [facility] could not accept. SW sent referral to [facility].
--- NOTE | 2023-10-26 08:37 | SWNOTE1 ---
[facility] is not able to accept any new referrals at this time and do not service that area. SW and case management went on to pt's insurance website and they only HH companies listed in-network were [facility], [facility], [facility] (closed), and [facility]. SW has attempted all of these and more home health companies and nobody is able to accept. SW to call [facility] back today to see if they can take her. They could have, but could not see her until next week. At this point it would be the only option if they can.
--- NOTE | 2023-10-26 11:41 | SWNOTE1 ---
CEM reached back out to Nita at [facility] and let her know we are not able to find any company to take pt. She was going to check there schedule in regards to staffing and reach back out to CEM. CEM received message from Nita at [facility] and they can send nurse on Sunday, will need new order. New order faxed to [facility]. CEM called and left message for daughter Yuli.
== END 2023-10-21 14:19 | disposition home health service (06) | DRG 871 ==
LOC: ER 16:35 → MS 17:17
PROVIDERS: Admitting Provider Family Medicine; Emergency Provider Emergency Medicine Emergency Medical Services; PCP Family Medicine; Visit Provider Family Medicine
DX: A41.9 Sepsis, unspecified organism (principal); E43 Unspecified severe protein-calorie malnutrition; I21.4 Non-ST elevation (NSTEMI) myocardial infarction; I11.0 Hypertensive heart disease with heart failure; I50.41 Acute combined systolic (congestive) and diastolic (congestive) heart failure; C92.00 Acute myeloblastic leukemia, not having achieved remission; E87.20 Acidosis, unspecified; D68.9 Coagulation defect, unspecified; D61.818 Other pancytopenia; R06.03 Acute respiratory distress; E11.9 Type 2 diabetes mellitus without complications; E78.5 Hyperlipidemia, unspecified; E87.6 Hypokalemia; R09.02 Hypoxemia; R19.7 Diarrhea, unspecified; R53.1 Weakness; R79.89 Other specified abnormal findings of blood chemistry; Z68.26 Body mass index [BMI] 26.0-26.9, adult; Z79.84 Long term (current) use of oral hypoglycemic drugs; Z79.69 Long term (current) use of other immunomodulators and immunosuppressants; Z79.899 Other long term (current) drug therapy; Z95.828 Presence of other vascular implants and grafts; Z95.1 Presence of aortocoronary bypass graft
CPT/HCPCS: 0202U; 36415; 36430; 36591; 71045; 74176; 76700; 80048; 80053; 81003; 82150; 82948; 83605; 83690; 83735; 83880; 84132; 84484; 85007; 85025; 85027; 85610; 85730; 86850; 86900; 86901; 87040; 87070; 87086; 87150; 87493; 87507; 93005; 94667; 94668; 94761; 96365; 96366; 96367; 96368; 96375; 96376; 97110; 97161; 97165; 97530; 97535; 99285; J1170; J2919; J3480; P9035; P9038

== ENCOUNTER 2023-11-13 07:29 | Outpatient (RCR) | payer MEDICARE, SELFPAY ==
[2023-10-23 10:45] VITALS: BP 119/52; PULSE 57; TEMP 36.6; O2SAT 96
[2023-10-23 11:19] LABS: Hematocrit 25.4 % (36.0-48.0); Hemoglobin 8.3 g/dL (12.0-16.0); Mean Corpuscular HGB Conc 32.7 g/dL (29.9-35.2); Mean Corpuscular Hemoglobin 29.6 pg (26.7-34.0); Mean Corpuscular Volume 90.7 fL (81.0-99.0); Mean Platelet Volume 11.5 fL (9.5-13.5); Red Cell Distribution Width 16.4 % (11.0-15.0)
[2023-10-23 11:22] LABS: Platelet Count 22 10^3/uL (150-450); White Blood Count 0.6 10^3/uL (4.0-11.0)
[2023-10-23 11:37] LABS: Alanine Aminotransferase 44 U/L (14-59); Albumin Globulin Ratio 0.7; Albumin Level 2.2 g/dL (3.4-5.0); Alkaline Phosphatase 97 U/L (46-116); Anion Gap 12.5; Aspartate Amino Transferase 21 U/L (15-37); BUN Creatinine Ratio 24.2; Calcium 8.7 mg/dL (8.5-10.1); Carbon Dioxide 29.5 mmol/L (21.0-32.0); Chloride 102 mmol/L (98-107); Estimated GFR (African America >60 (>=60); Estimated GFR (Non-African Ame >60 (>=60); Globulin 3.3 g/dL; Glucose 115 mg/dL (74-106); Lactate Dehydrogenase 170 U/L (81-234); Sodium 140 mmol/L (136-145); Total Protein 5.5 g/dL (6.4-8.2)
[2023-10-23 11:44] LABS: Monocytes Absolute Manual 0.04 10^3/uL (0.30-0.80); Segmented Neut Absolute Manual 0.03 10^3/uL (1.4-6.5)
[2023-10-25 10:00] VITALS: BP 139/58; PULSE 53; TEMP 37.2; O2SAT 96
[2023-10-25 10:27] LABS: Hematocrit 25.8 % (36.0-48.0); Hemoglobin 8.3 g/dL (12.0-16.0); Mean Corpuscular HGB Conc 32.2 g/dL (29.9-35.2); Mean Corpuscular Hemoglobin 29.9 pg (26.7-34.0); Mean Corpuscular Volume 92.8 fL (81.0-99.0); Mean Platelet Volume 12.2 fL (9.5-13.5); Platelet Count 40 10^3/uL (150-450); Red Blood Count 2.78 10^6/uL (4.20-5.40); Red Cell Distribution Width 17.2 % (11.0-15.0); White Blood Count 1.7 10^3/uL (4.0-11.0)
[2023-10-25 10:53] LABS: Alanine Aminotransferase 31 U/L (14-59); Albumin Globulin Ratio 0.8; Albumin Level 2.4 g/dL (3.4-5.0); Alkaline Phosphatase 105 U/L (46-116); Anion Gap 11.3; Aspartate Amino Transferase 14 U/L (15-37); BUN Creatinine Ratio 21.4; Bilirubin Total 0.8 mg/dL (0.2-1.0); Calcium 8.9 mg/dL (8.5-10.1); Carbon Dioxide 25.5 mmol/L (21.0-32.0); Chloride 106 mmol/L (98-107); Estimated GFR (African America >60 (>=60); Estimated GFR (Non-African Ame >60 (>=60); Globulin 3.1 g/dL; Glucose 98 mg/dL (74-106); Potassium 4.8 mmol/L (3.5-5.1); Sodium 138 mmol/L (136-145); Total Protein 5.5 g/dL (6.4-8.2)
--- NOTE | 2023-10-25 11:13 | PC.NURSE ---
1000: Pt. to [facility] via w/c accompanied by . Assisted pt. to recliner. VSS. Pt. relays feeling like crap today. Using sterile technique, right ant. chest port accessed using #20 Hawk needle. Flushes easily and able to aspirate blood easily. Blood obtained for ordered labs. Pt. given water. Denies further needs.
[2023-10-25 11:14] LABS: Band Neutrophils Absolute 0.1 10^3/uL (0.0-0.3); Eosinophils Absolute Manual 0.01 10^3/uL (0.00-0.70); Lymphocytes Absolute Manual 0.57 10^3/uL (1.20-3.80); Segmented Neut Absolute Manual 0.54 10^3/uL (1.4-6.5)
[2023-10-25 11:15] LABS: Metamyelocytes Absolute Manual 0.03; Nucleated Red Blood Cells 1
[2023-10-25 11:16] LABS: Anisocytosis 1+
[2023-10-25 11:17] LABS: Hypochromasia 1+
--- NOTE | 2023-10-25 11:17 | PC.NURSE ---
1045: Labs resulted. No need for blood or platelet transfusion per. parameters in order. Pt. notified. Given copy of labs. Port flushed with saline and Heparin. Port de-accessed. Trace bleeding to site. Covered with sterile 2x2. Pt. tolerated without c/o. 1055: Pt. d/c'd via w/c to car and home with .
[2023-10-30 09:40] LABS: Hematocrit 26.6 % (36.0-48.0); Hemoglobin 8.5 g/dL (12.0-16.0); Mean Corpuscular Hemoglobin 29.9 pg (26.7-34.0); Mean Corpuscular Volume 93.7 fL (81.0-99.0); Mean Platelet Volume 11.5 fL (9.5-13.5); Platelet Count 86 10^3/uL (150-450); Red Blood Count 2.84 10^6/uL (4.20-5.40); Red Cell Distribution Width 19.5 % (11.0-15.0); White Blood Count 2.4 10^3/uL (4.0-11.0)
[2023-10-30 10:00] LABS: Alanine Aminotransferase 22 U/L (14-59); Albumin Globulin Ratio 0.7; Albumin Level 2.3 g/dL (3.4-5.0); Alkaline Phosphatase 119 U/L (46-116); Anion Gap 14.7; Aspartate Amino Transferase 14 U/L (15-37); BUN Creatinine Ratio 12.5; Bilirubin Total 0.6 mg/dL (0.2-1.0); Calcium 8.4 mg/dL (8.5-10.1); Carbon Dioxide 23.5 mmol/L (21.0-32.0); Chloride 107 mmol/L (98-107); Estimated GFR (African America >60 (>=60); Estimated GFR (Non-African Ame >60 (>=60); Globulin 3.2 g/dL; Glucose 134 mg/dL (74-106); Potassium 4.2 mmol/L (3.5-5.1); Sodium 141 mmol/L (136-145); Total Protein 5.5 g/dL (6.4-8.2)
[2023-10-30 10:48] LABS: Band Neutrophils Absolute 0.3 10^3/uL (0.0-0.3); Lymphocytes Absolute Manual 0.52 10^3/uL (1.20-3.80); Metamyelocytes Absolute Manual 0.16; Segmented Neut Absolute Manual 0.88 10^3/uL (1.4-6.5)
[2023-10-30 10:49] LABS: Anisocytosis 2+; Hypochromasia 1+
[2023-10-30 10:50] LABS: Ovalocytes 1+
[2023-11-06 10:00] VITALS: BP 149/77; PULSE 58; TEMP 35.9; O2SAT 100
[2023-11-06 10:21] LABS: Hematocrit 29.2 % (36.0-48.0); Hemoglobin 9.4 g/dL (12.0-16.0); Mean Corpuscular HGB Conc 32.2 g/dL (29.9-35.2); Mean Corpuscular Hemoglobin 30.1 pg (26.7-34.0); Mean Corpuscular Volume 93.6 fL (81.0-99.0); Mean Platelet Volume 11.4 fL (9.5-13.5); Platelet Count 123 10^3/uL (150-450); Red Blood Count 3.12 10^6/uL (4.20-5.40); White Blood Count 2.3 10^3/uL (4.0-11.0)
[2023-11-06 10:31] LABS: Alanine Aminotransferase 21 U/L (14-59); Albumin Globulin Ratio 0.7; Albumin Level 2.2 g/dL (3.4-5.0); Alkaline Phosphatase 128 U/L (46-116); Anion Gap 11.7; Aspartate Amino Transferase 16 U/L (15-37); BUN Creatinine Ratio 13.1; Bilirubin Total 0.7 mg/dL (0.2-1.0); Calcium 8.5 mg/dL (8.5-10.1); Carbon Dioxide 26.2 mmol/L (21.0-32.0); Chloride 107 mmol/L (98-107); Estimated GFR (African America >60 (>=60); Estimated GFR (Non-African Ame >60 (>=60); Globulin 3.1 g/dL; Glucose 125 mg/dL (74-106); Magnesium 1.9 mg/dL (1.8-2.4); Potassium 3.9 mmol/L (3.5-5.1); Sodium 141 mmol/L (136-145); Total Protein 5.3 g/dL (6.4-8.2)
[2023-11-06 11:07] LABS: Atypical Lymphocytes Abs Man 0.11; Basophils Abs Manual 0.02 10^3/uL (0.00-0.10); Lymphocytes Absolute Manual 0.43 10^3/uL (1.20-3.80); Monocytes Absolute Manual 0.34 10^3/uL (0.30-0.80); Segmented Neut Absolute Manual 1.17 10^3/uL (1.4-6.5)
[2023-11-06 11:08] LABS: Metamyelocytes Absolute Manual 0.09; Myelocytes Absolute Manual 0.06
[2023-11-06 11:09] LABS: Poikilocytosis 1+
[2023-11-06 11:10] LABS: Ovalocytes 1+; Tear Drop Cells 1+
--- NOTE | 2023-11-06 11:15 | PC.NURSE ---
1000: Pt. to [facility] amb. using walker, accompanied by granddaughter. Seated in chair. VSS. Using sterile technique, right ant. chest port accessed per. RICHY Friedman. Able to aspirate blood easily and flushes easily. Blood drawn for labs. Port remains accessed until labs resulted. Given bottle water. Denies needs. 1048: Labs WNL per. Dr Krueger's parameters. Port flushed with heparin and port de-accessed. Pt. d/c'd amb. to home with granddaughter.
[2023-11-13 10:45] VITALS: BP 145/70; PULSE 57; TEMP 36.6; O2SAT 98
[2023-11-13 11:17] LABS: Hematocrit 27.1 % (36.0-48.0); Hemoglobin 8.5 g/dL (12.0-16.0); Mean Corpuscular HGB Conc 31.4 g/dL (29.9-35.2); Mean Corpuscular Hemoglobin 29.6 pg (26.7-34.0); Mean Corpuscular Volume 94.4 fL (81.0-99.0); Mean Platelet Volume 11.8 fL (9.5-13.5); Platelet Count 39 10^3/uL (150-450); Red Blood Count 2.87 10^6/uL (4.20-5.40); Red Cell Distribution Width 20.6 % (11.0-15.0); White Blood Count 1.9 10^3/uL (4.0-11.0)
[2023-11-13 11:32] LABS: Alanine Aminotransferase 21 U/L (14-59); Albumin Globulin Ratio 0.8; Albumin Level 2.3 g/dL (3.4-5.0); Alkaline Phosphatase 135 U/L (46-116); Anion Gap 10.8; Aspartate Amino Transferase 24 U/L (15-37); BUN Creatinine Ratio 13.8; Bilirubin Total 0.8 mg/dL (0.2-1.0); Calcium 8.3 mg/dL (8.5-10.1); Carbon Dioxide 25.3 mmol/L (21.0-32.0); Chloride 105 mmol/L (98-107); Estimated GFR (African America >60 (>=60); Estimated GFR (Non-African Ame >60 (>=60); Globulin 2.8 g/dL; Glucose 98 mg/dL (74-106); Potassium 4.1 mmol/L (3.5-5.1); Sodium 137 mmol/L (136-145); Total Protein 5.1 g/dL (6.4-8.2)
--- NOTE | 2023-11-13 12:33 | US_ITS ---
[address] [address] Patient Name: DIANA HINOJOSA MRN: [id number] date: 1940 Sex: F Assigned Patient Location: [facility] Current Patient Location: [facility] Accession/Order Number: [id number] Exam Date: 11/13/2023 12:35 Report Date: 11/13/2023 13:21 At the request of: DELLA MELISSA Procedure: US venous doppler LE RT EXAM: US venous doppler LE RT HISTORY: Pain in right leg COMPARISON: None. TECHNIQUE: Grayscale, color and Doppler FINDINGS: Region: Right leg Thrombus: None Flow: Normal Augmentation: Normal Compressibility: Normal Other: Subcutaneous edema of the lower leg US/US venous doppler LE RT IMPRESSION: No deep or superficial vein thrombus identified in the right leg Electronically authenticated by: BYRON QUINTERO Date: 11/13/2023 13:21
[2023-11-13 12:35] LABS: Atypical Lymphocytes Abs Man 0.03; Band Neutrophils Absolute 0.1 10^3/uL (0.0-0.3); Eosinophils Absolute Manual 0.03 10^3/uL (0.00-0.70); Lymphocytes Absolute Manual 0.58 10^3/uL (1.20-3.80); Metamyelocytes Absolute Manual 0.01; Monocytes Absolute Manual 0.11 10^3/uL (0.30-0.80); Myelocytes Absolute Manual 0.03
[2023-11-13 12:36] LABS: Anisocytosis 2+; Hypochromasia 1+
--- NOTE | 2023-11-13 14:10 | PC.NURSE ---
1045: Pt. to Dr. Krueger's office for scheduled appt. Accompanied by granddaughter. VSS. Using sterile technique, right ant. chest port accessed using 20 gauge Hawk needle. Flushes easily with good blood return. Blood obtained and sent to lab. Pt. tolerated with min. c/o pain. 1233: Pt. assisted on to bed for ordered venous US of leg as ordered per. Dr. Krueger. 1245: Port flushed with saline and Heparin. Port de-accessed. Trace bleeding. Covered with bandaid.
== END 2023-11-13 23:59 | disposition home or self-care (01) ==
LOC: INF 07:29
PROVIDERS: PCP Family Medicine; Visit Provider Internal Medicine Hematology & Oncology
DX: C92.00 Acute myeloblastic leukemia, not having achieved remission (principal); R11.2 Nausea with vomiting, unspecified; M79.604 Pain in right leg; R22.41 Localized swelling, mass and lump, right lower limb
CPT/HCPCS: 36415; 36430; 36591; 36593; 80053; 83615; 83735; 84550; 85007; 85027; 93971; 99999; G0463

== ENCOUNTER 2023-11-29 13:44 | Observation (INO) | payer MEDICARE, SELFPAY ==
[2023-11-29 14:00] VITALS: BP 181/72; PULSE 59; TEMP 36.5; O2SAT 98; BMI 27.9
[2023-11-29] MEDS: BUMETANIDE 10 MG in 0.9 % SODIUM CHLORIDE 160 ML 20 MG IV (15:39)
[2023-11-29 15:46] VITALS: BP 173/72; PULSE 55; TEMP 36.4; O2SAT 96
[2023-11-29 16:15] LABS: Glucometer 169 mg/dL (74-106)
--- NOTE | 2023-11-29 17:41 | P.HP_ITS ---
HPI H&P: HPI History of Present Illness Chief complaint: INFUSION SENT PATIENT UP Narrative: Patient seen at oncology clinic, found to have her anemia, thrombocytopenia but also significant edema. Patient was recommended for admission for diuresis. When I saw patient up on the medical surgical floor, she was resting comfortably. She denies shortness of breath but did have definite increase in her peripheral edema compared to previous examinations. Opioid HPI Opioid Management Most Recent Opioid Data: Last Pain Scale 4 10/20/23 01:46 Last Pain Assessment 11/29/23 21:00 Last MAR Pain Assessment 11/29/23 10:30 Last ORT Total Score 0 11/29/23 14:00 Last ORT Risk Category Low Risk 11/29/23 14:00 PFSH PFS Medical History (Updated 10/25/23 @ 00:00 by ) Pleural effusion on right ?J90 - Pleural effusion, not elsewhere classified (ICD-10) Pancytopenia ?D61.818 - Other pancytopenia (ICD-10) Neutropenic fever ?D70.9 - Neutropenia, unspecified (ICD-10) ?R50.81 - Fever presenting with conditions classified elsewhere (ICD-10) Thrombocytopenia ?D69.6 - Thrombocytopenia, unspecified (ICD-10) Symptomatic anemia ?D64.9 - Anemia, unspecified (ICD-10) Acute leukemia ?C95.00 - Acute leukemia of unspecified cell type not having achieved remission (ICD-10) AML (acute myeloblastic leukemia) ?C92.00 - Acute myeloblastic leukemia, not having achieved remission (ICD-10) Malignancy ?C80.1 - Malignant (primary) neoplasm, unspecified (ICD-10) A-fib ?I48.91 - Unspecified atrial fibrillation (ICD-10) HTN (hypertension) ?I10 - Essential (primary) hypertension (ICD-10) CAD (coronary artery disease) ?I25.10 - Atherosclerotic heart disease of [place] coronary artery without angina pectoris (ICD-10) Hyperlipidemia ?E78.5 - Hyperlipidemia, unspecified (ICD-10) DM2 (diabetes mellitus, type 2) ?E11.9 - Type 2 diabetes mellitus without complications (ICD-10) Surgical History S/P CABG x 4 ?Z95.1 - Presence of aortocoronary bypass graft (ICD-10) Family History (Updated 10/11/23 @ 18:08 by Bonny Jaramillo) Mother Family history of CHF (congestive heart failure) Social History (Updated 10/11/23 @ 18:09 by Bonny Jaramillo) Within the past year, how often did you have a drink containing alcohol: monthly or less Within the past year, how many standard drinks containing alcohol did you have on a typical day: 1 or 2 Within the past year, how often did you have six or more drinks on one occasion: never Total score: 0 Score interpretation: A score less than 3 is consistent with normal alcohol consumption. Smoking status: Never smoker Non-prescribed substance use: denies use Previous occupational history: retired Highest level of school completed/degree received: high school graduate Are you now , , , , never or living with a partner: In a typical week, how many times do you talk on the telephone with family, friends, or neighbors: 3 or more times per week How often do you get together with friends or relatives: 3 or more times per week How often do you attend adventist or islam services: never Do you belong to any clubs or organizations such as adventist groups unions, [employer] or athletic groups, or school groups: no Total score: 2 Score interpretation: A score of greater than or equal to 2 indicates the lowest level of social isolation. Little interest or pleasure in doing things: several days Feeling down, depressed, or hopeless: several days Feel stressed/tense/nervous/anxious/difficulty sleeping: to some extent Life stressor details: cancer diagnosis Do you think of yourself as: straight/heterosexual Gender Identity: female Meds Home Medications and Allergies Home Medications ?Medication ?Instructions ?Recorded ?Confirmed ?Type acyclovir 400 mg tablet 400 mg PO Q12H 10/11/23 11/29/23 History allopurinol 300 mg tablet 300 mg PO DAILY 10/11/23 11/29/23 History alprazolam 0.5 mg tablet 0.5 mg PO Q12H PRN anxiety 10/11/23 11/29/23 History posaconazole 100 mg tablet,delayed 300 mg PO Q24H 10/11/23 11/29/23 History release isosorbide mononitrate 30 mg 30 mg PO DAILY #30 tabs 10/13/23 11/29/23 Rx tablet,extended release 24 hr metoprolol tartrate 50 mg tablet 50 mg PO Q12H #60 tabs 10/13/23 11/29/23 Rx furosemide 20 mg tablet 20 mg PO DAILY 10/15/23 11/29/23 History metformin 500 mg tablet 500 mg PO BIDWM 10/15/23 11/29/23 History escitalopram oxalate 10 mg tablet 10 mg PO QD #30 tabs 10/21/23 11/29/23 Rx magnesium oxide 400 mg (241.3 mg 400 mg PO TID #90 tabs 10/21/23 11/29/23 Rx magnesium) tablet potassium chloride 10 mEq 20 meq (2 x 10 mEq) PO TID #90 tabs 10/21/23 11/29/23 Rx tablet,extended release(part/cryst) ondansetron HCl 8 mg tablet 8 mg PO Q12H PRN nausea and 11/29/23 11/29/23 History vomiting prochlorperazine maleate 10 mg 10 mg PO Q8H PRN nausea and 11/29/23 11/29/23 History tablet vomiting Allergies Allergy/AdvReac Type Severity Reaction Status Date / Time ORANGES AdvReac Uncoded 10/11/23 15:49 Exam Constitutional Vital Signs, click to edit/add: Last Vital Signs Temp 97.6 F 11/29/23 15:46 Pulse 55 L 11/29/23 15:46 Resp 18 11/29/23 15:46 BP 173/72 H 11/29/23 15:46 Pulse Ox 96 11/29/23 15:46 O2 Del Method Room Air 11/29/23 15:46 Common normals: no apparent distress, oriented x3, alert and well nourished General appearance: cooperative and other (Pale) Nutritional appearance: overweight Orientation/consciousness: Yes awake [facility] Common normals: normocephalic, head/scalp atraumatic, hearing grossly normal bilaterally, external nose normal and moist oral mucous membranes Eye Common normals: PERRL, EOMs intact bilaterally, conjunctivae normal and no scleral icterus Alignment: alignment normal Eyelid: eyelids normal Neck & C-Spine Common normals: full ROM, supple and no JVD Chest Common normals: inspection of chest normal Chest: symmetrical chest wall rise Respiratory Common normals: normal respiratory effort (nocnversaina dsna) Auscultation: breath sounds absent (He got just an) on the right; no rales and no egophony Cardio Common normals: no JVD, regular rate, regular rhythm, S1 normal heart sound, S2 normal heart sound, no gallops and no rub Heart sounds: murmur (HSM 2/6) GI Common normals: Normal to inspection, nondistended, normoactive bowel sounds present, soft to palpation, non-tender, no hepatosplenomegaly, no masses and no bruits Bladder/kidney exam: bladder normal to palpation Back & Pelvis Common normals: thoracic and lumbar spine normal to inspection Extremity Common normals: normal capillary refill; pedal edema General: edema (3+ edema, bilateral lower extremities, negative Homans) Other: 1+ edema Neuro [place] Coma Scale: GCS not evaluated Common normals: CN's II-XII intact bilaterally, moves all extremities, no focal motor deficits and no sensory deficits noted Speech: speech normal Motor exam: strength 5/5 throughout Psych Common normals: mental status grossly normal, thought process normal, affect normal and activity/motor behavior normal Assessment and Plan Assessment and Plan (1) Acute leukemia: Plan Anemia and thrombocytopenia secondary to her leukemia-transfusion and will need her platelet transfusion in a.m. Significant peripheral edema. Likely volume overloaded-diuresis tonight, check on labs in AM. History of UTI may need repeat labs although most currently Moderate protein calorie malnutrition-diet management Depression symptoms-continue with home medications History of elevated troponins-will check on labs in a.m. Admission status: Patient to receive transfusion, greater than 50% chance she will be discharged in a.m., maintain observation status with medically necessary treatment likely only spanning 1 midnight
[2023-11-29 19:21] VITALS: BP 156/68; PULSE 57; TEMP 36.3; O2SAT 96
[2023-11-29 19:51] VITALS: O2SAT 96
[2023-11-29 19:57] LABS: Glucometer 266 mg/dL (74-106)
[2023-11-29] MEDS: POTASSIUM CHLORIDE 10 MEQ ER TABLET 20 MEQ PO (21:09)
[2023-11-29] MEDS: METOPROLOL TARTRATE 50 MG TABLET PO (21:09)
[2023-11-29] MEDS: MAGNESIUM OXIDE 400 MG TABLET PO (21:09)
[2023-11-29 21:15] VITALS: PULSE 64
[2023-11-29] MEDS: CETIRIZINE HCL 10 MG TABLET PO (22:32)
[2023-11-29 23:18] VITALS: BP 149/83; PULSE 64; TEMP 36.5; O2SAT 93
[2023-11-30] VITALS (9 sets, daily range): BP systolic 145–159; BP diastolic 75–85; PULSE 59–82; TEMP 36.4–36.6; O2SAT 92–96
[2023-11-30] MEDS: MAGNESIUM OXIDE 400 MG TABLET PO ×2 (05:15→14:23)
[2023-11-30] MEDS: POTASSIUM CHLORIDE 10 MEQ ER TABLET 20 MEQ PO ×2 (05:15→14:23)
[2023-11-30 05:17] LABS: Hematocrit 28.9 % (36.0-48.0); Hemoglobin 9.6 g/dL (12.0-16.0); Immature Granulocytes Abs Auto 0.03 10^3/uL (0.00-0.03); Immature Granulocytes Pct Auto 0.8 % (0.0-0.5); Lymphocytes Absolute Auto 0.3 10^3/uL (1.2-3.8); Lymphocytes Percent Auto 7.5 % (20.5-60.0); Mean Corpuscular HGB Conc 33.2 g/dL (29.9-35.2); Mean Corpuscular Hemoglobin 30.7 pg (26.7-34.0); Mean Corpuscular Volume 92.3 fL (81.0-99.0); Monocytes Absolute Auto 0.5 10^3/uL (0.3-0.8); Monocytes Percent Auto 13.7 % (1.7-12.0); Neutrophils Absolute Auto 2.8 10^3/uL (1.4-6.5); Red Blood Count 3.13 10^6/uL (4.20-5.40); Red Cell Distribution Width 21.2 % (11.0-15.0); White Blood Count 3.6 10^3/uL (4.0-11.0)
[2023-11-30 05:31] LABS: Magnesium 2.2 mg/dL (1.8-2.4)
[2023-11-30 05:32] LABS: Alanine Aminotransferase 28 U/L (14-59); Albumin Globulin Ratio 1.3; Albumin Level 3.6 g/dL (3.4-5.0); Alkaline Phosphatase 123 U/L (46-116); Anion Gap 7.7; Aspartate Amino Transferase 14 U/L (15-37); BUN Creatinine Ratio 26.8; Bilirubin Total 1.7 mg/dL (0.2-1.0); Calcium 8.6 mg/dL (8.5-10.1); Carbon Dioxide 35.8 mmol/L (21.0-32.0); Chloride 96 mmol/L (98-107); Estimated GFR (African America >60 (>=60); Estimated GFR (Non-African Ame >60 (>=60); Globulin 2.8 g/dL; Glucose 164 mg/dL (74-106); Sodium 137 mmol/L (136-145); Total Protein 6.4 g/dL (6.4-8.2)
[2023-11-30 05:38] LABS: INR 1.28; Partial Thromboplastin Time 26.5 sec (22.3-36.2); Prothrombin Time 13.2 sec (9.0-11.6)
[2023-11-30 05:47] LABS: Platelet Count 10 10^3/uL (150-450)
[2023-11-30 05:49] LABS: Thyroid Stimulating Hormone 0.337 uIU/mL (0.358-3.740); Troponin I High Sensitivity 40.8 pg/mL (4.0-51.3)
[2023-11-30 05:54] LABS: Potassium 2.5 mmol/L (3.5-5.1)
--- NOTE | 2023-11-30 06:47 | PC.NURSE ---
Dr. Tapia made aware of critical lab results and was notified that the platelet transfusion will be happening later this morning due to platelets coming from [place].
[2023-11-30] MEDS: POTASSIUM CHLORIDE 40 MEQ in 0.9 % SODIUM CHLORIDE 250 ML 67.5 MEQ IV (08:00)
--- NOTE | 2023-11-30 08:16 | P.DS_ITS ---
DS: Providers Provider Date of admission: 11/29/23 13:44 Primary care physician: Armani Tapia MD Consults: 11/29/23 17:11 Consult to Pharmacy Routine Consulting Provider: Reason for consultation: Please [place] me when Med Rec is Updated Has provider been notified: No Occupational Therapy Eval and Treat Routine Reason for consultation: Only if needed for Rehab Has provider been notified: No Physical Therapy Eval and Treat Routine Reason for consultation: Eval and Treat Has provider been notified: No DS: Diagnosis Discharge Diagnosis (1) Acute leukemia: Plan Anemia and thrombocytopenia and neutropenia secondary to her leukemia-transfused on Date of discharge Significant peripheral edema with fluid overload and elevated BNP, likely related to acute on chronic diastolic heart failure. Edema resolved with time of discharge History of UTI-no symptoms Moderate protein calorie malnutrition-diet management Hypokalemia-supplemented on the day of discharge Depression symptoms-continue with home medications History of elevated troponins-stable on the day of discharge Admission status: Patient to receive transfusion, greater than 50% chance she will be discharged this a.m., maintain observation status with medically necessary treatment likely only spanning 1 midnight ? DS: Summary Hospital Course Hospital Course: Patient was admitted from the oncology clinic with fluid overload. Lab results consistent with acute on chronic diastolic heart failure. Lung exam was clear, 3+ peripheral edema. Placed on Bumex drip with good results of 6 L out. Although she is weak this morning she overall feels better. Was also transfused 2 units and her hemoglobin is up nicely by 2 points. Platelet count is still low. She had a plan for transfusion of platelets this morning. Will institute her platelets, check with oncology clinic on chemoinfusion, she is also hypokalemic this morning IV infusion for that. If stable later this morning she will be discharged home in improving condition. Medication status. Follow-up with oncology per protocol Time Spent with Patient Time attestation: Total time spent providing and/or coordinating discharge services: Time spent: greater than 30 minutes Exam Constitutional Vital Signs, click to edit/add: Last Vital Signs Temp 97.6 F 11/30/23 03:27 Pulse 82 11/30/23 03:27 Resp 18 11/30/23 03:27 BP 157/85 H 11/30/23 03:27 Pulse Ox 92 L 11/30/23 03:27 O2 Del Method Room Air 11/30/23 03:27 Documenting provider has reviewed patient's vital signs: yes Common normals: no apparent distress Chest Common normals: inspection of chest normal Respiratory Common normals: normal respiratory effort, no retractions and clear to auscultation bilaterally Cardio Common normals: regular rate, regular rhythm and no murmurs Extremity Common normals: normal to inspection, full ROM, no clubbing, cyanosis or edema and no calf tenderness DS: Data Data Completed and Pending Labs on day of discharge: Labs from last 24 hours 11/30/23 11/29/23 11/29/23 04:58 19:56 16:14 WBC 3.6 L RBC 3.13 L Hgb 9.6 L Hct 28.9 L MCV 92.3 MCH 30.7 MCHC 33.2 RDW 21.2 H Plt Count 10 L* Neut % (Auto) 78.0 H Lymph % (Auto) 7.5 L Williams % (Auto) 13.7 H Eos % (Auto) 0.0 L Baso % (Auto) 0.0 L Neut # (Auto) 2.8 Lymph # (Auto) 0.3 L Williams # (Auto) 0.5 Eos # (Auto) 0.0 Baso # (Auto) 0.0 Abs Immat Gran (auto) 0.03 Imm/Tot Granulo (auto) 0.8 H PT 13.2 H INR 1.28 APTT 26.5 Sodium 137 Potassium 2.5 L* Chloride 96 L Carbon Dioxide 35.8 H Anion Gap 7.7 BUN 22.0 H Creatinine 0.82 Est GFR ( Amer) >60 Est GFR (Non-Af Amer) >60 BUN/Creatinine Ratio 26.8 Glucose 164 H Calcium 8.6 Magnesium 2.2 Total Bilirubin 1.7 H AST 14 L ALT 28 Alkaline Phosphatase 123 H Troponin I High Sens 40.8 NT-Pro-B Natriuret Pep 37477.0 H* Total Protein 6.4 Albumin 3.6 Globulin 2.8 Albumin/Globulin Ratio 1.3 TSH 0.337 L Thyroxine (T4) 12.20 POC Glucose 266 H 169 H Discharge Plan Discharge Discharge Medications: New furosemide [Lasix] 40 mg tablet 40 mg PO QAM Qty: 30 11RF isosorbide mononitrate 60 mg tablet extended release 24 hr 60 mg PO DAILY Qty: 60 11RF acyclovir 400 mg tablet 400 mg PO BID Qty: 60 11RF Continued allopurinol 300 mg tablet 300 mg PO DAILY posaconazole 100 mg tablet,delayed release (DR/EC) 300 mg PO Q24H alprazolam 0.5 mg tablet 0.5 mg PO Q12H PRN (Reason: anxiety) metoprolol tartrate 50 mg Tablet 50 mg PO Q12H Qty: 60 11RF metformin 500 mg tablet 500 mg PO BIDWM magnesium oxide 400 mg (241.3 mg magnesium) Tablet 400 mg PO TID Qty: 90 11RF escitalopram oxalate 10 mg Tablet 10 mg PO QD Qty: 30 11RF potassium chloride 10 mEq Tablet,Er Particles/Crystals 20 meq PO TID Qty: 90 11RF ondansetron HCl 8 mg tablet 8 mg PO Q12H PRN (Reason: nausea and vomiting) prochlorperazine maleate 10 mg tablet 10 mg PO Q8H PRN (Reason: nausea and vomiting) Discontinued acyclovir 400 mg tablet 400 mg PO Q12H isosorbide mononitrate 30 mg tablet extended release 24 hr 30 mg PO DAILY Qty: 30 11RF furosemide 20 mg tablet 20 mg PO DAILY Print Language: [place]
[2023-11-30] MEDS: FUROSEMIDE 20 MG TABLET 40 MG PO (08:52)
[2023-11-30] MEDS: ALLOPURINOL 300 MG TABLET PO (08:53)
[2023-11-30] MEDS: ACYCLOVIR 200 MG CAPSULE 400 MG PO (08:53)
[2023-11-30] MEDS: POSACONAZOLE 100 MG 300 EACH PO (08:53)
[2023-11-30] MEDS: ESCITALOPRAM 10 MG TABLET PO (08:53)
[2023-11-30] MEDS: METOPROLOL TARTRATE 50 MG TABLET PO (08:53)
[2023-11-30] MEDS: ISOSORBIDE MONONITRATE 30 MG TAB.ER.24H 60 MG PO (08:53)
--- NOTE | 2023-11-30 09:09 | SWNOTE1 ---
CEM met with pt to discuss dc needs. Pt voiced her about 3 weeks ago and it was not expected. She voiced her 2 grand-daughters have been great support and help for her as well as daughters. She uses a walker at home. She stated she does still have [facility] coming in and they were supposed to come yesterday, but she ended up being admitted. SW to verify with [facility]. Pt has no concerns about discharge and plan is for discharge today. SW to follow as needed. Medicare Outpatient Observation Notice reviewed and discussed with patient. Pt. verbalized understanding and signed the form. Original given to patient and copy placed in patient?s chart. CEM called and left message for [facility] and sent an email to Nita at [facility].
[2023-11-30] MEDS: SODIUM CHLORIDE 0.9% IV ×2 (09:14→09:40)
[2023-11-30] MEDS: DEXAMETHASONE SODIUM PHOSPHATE IV (09:14)
--- NOTE | 2023-11-30 09:25 | SWNOTE1 ---
SW spoke to intake at [facility] and pt is still current with them. SW sent over face sheet and physician notes to [facility].
--- NOTE | 2023-11-30 09:33 | PC.NURSE ---
0913 alert and oriented. sitting on side of bed, stating she is feeling much better today than yesterday and swelling has went down . heart tones regular, lungs clear to auscultation, noted pretibial pitting edema. IV decadron initiated as ordered. patient returned to lying position 0935 resting with eyes closed when left undisturbed.
[2023-11-30] MEDS: AZACITIDINE IV (09:40)
--- NOTE | 2023-11-30 10:07 | PC.NURSE ---
1007 Chemo infusion completed, tolerated well. Report to Med Surg staff, Chemo precautions maintained, staff informed of need for chemo precautions.
--- NOTE | 2023-11-30 10:43 | SWNOTE1 ---
Pt is discharging today. SW sent over dc med rec and CRF to [facility] .
[2023-11-30 11:41] LABS: Glucometer 222 mg/dL (74-106)
--- NOTE | 2023-12-03 12:59 | CM.DCFOLLOWU ---
Pt has been readmitted to Med Surg floor.
== END 2023-11-30 16:20 | disposition home health service (06) ==
PROVIDERS: Admitting Provider Family Medicine; PCP Family Medicine; Visit Provider Family Medicine
DX: I11.0 Hypertensive heart disease with heart failure (principal); I50.33 Acute on chronic diastolic (congestive) heart failure; D69.6 Thrombocytopenia, unspecified; C92.00 Acute myeloblastic leukemia, not having achieved remission; E87.6 Hypokalemia; D70.9 Neutropenia, unspecified; D63.0 Anemia in neoplastic disease; R60.9 Edema, unspecified; E44.0 Moderate protein-calorie malnutrition; F32.A Depression, unspecified; I48.91 Unspecified atrial fibrillation; I25.10 Atherosclerotic heart disease of native coronary artery without angina pectoris; E78.5 Hyperlipidemia, unspecified; E11.9 Type 2 diabetes mellitus without complications; Z87.440 Personal history of urinary (tract) infections; Z68.27 Body mass index [BMI] 27.0-27.9, adult; Z95.1 Presence of aortocoronary bypass graft; Z79.899 Other long term (current) drug therapy
CPT/HCPCS: 36415; 36430; 36591; 80053; 82948; 83735; 83880; 84436; 84443; 84484; 85025; 85610; 85730; 94667; 94761; 96366; 96367; 96368; 97161; 97165; 97530; G0378; J1100; J3480; J9025; P9035

== ENCOUNTER 2023-12-03 12:12 | Inpatient (IN) | payer MEDICARE, SELFPAY ==
[2023-12-03] VITALS (10 sets, daily range): BP systolic 122–169; BP diastolic 57–76; PULSE 59–72; TEMP 36.3–37.1; O2SAT 94–98; BMI 54.7
--- NOTE | 2023-12-03 12:29 | XR_ITS ---
The [address] [address] Patient Name: DIANA HINOJOSA MRN: [id number] date: 1940 Sex: F Assigned Patient Location: [place] Current Patient Location: [place] Accession/Order Number: [id number] Exam Date: 12/03/2023 13:05 Report Date: 12/03/2023 13:46 At the request of: RORY WEST Procedure: XR chest 2V EXAMINATION: XR chest 2V HISTORY: Dyspnea COMPARISON: XR chest 10/09/2023 FINDINGS: LUNGS: Right lateral and posterior costophrenic angles demonstrate mild blunting with mild opacities partially obscuring. VASCULATURE: No increased pulmonary vasculature. PLEURA: No pneumothorax, effusion, or pleural thickening. CARDIAC: Stable cardiomegaly. MEDIASTINUM: No visible mass or adenopathy. BONES: No fracture or visible bone lesion. OTHER: Stable right chest Port-A-Cath. XR/XR chest 2V IMPRESSION: 1. Suspect small right pleural effusion and mild right basilar infiltrates versus atelectasis. 2. Stable cardiomegaly. Electronically authenticated by: PEGGY CORONEL Date: 12/03/2023 13:46
[2023-12-03 13:08] LABS: Hemoglobin 7.7 g/dL (12.0-16.0); Mean Corpuscular Hemoglobin 30.8 pg (26.7-34.0); Mean Corpuscular Volume 93.2 fL (81.0-99.0); Red Cell Distribution Width 19.3 % (11.0-15.0); White Blood Count 2.5 10^3/uL (4.0-11.0)
[2023-12-03 13:16] LABS: Hematocrit 23.3 % (36.0-48.0)
[2023-12-03 13:17] LABS: Platelet Count 5 10^3/uL (150-450)
[2023-12-03 13:20] LABS: Alanine Aminotransferase 33 U/L (14-59); Albumin Globulin Ratio 1.4; Alkaline Phosphatase 95 U/L (46-116); Anion Gap 6.8; Aspartate Amino Transferase 13 U/L (15-37); Bilirubin Total 1.8 mg/dL (0.2-1.0); Calcium 8.8 mg/dL (8.5-10.1); Carbon Dioxide 32.9 mmol/L (21.0-32.0); Chloride 104 mmol/L (98-107); Estimated GFR (African America >60 (>=60); Estimated GFR (Non-African Ame >60 (>=60); Globulin 2.2 g/dL; Glucose 107 mg/dL (74-106); Potassium 3.7 mmol/L (3.5-5.1); Sodium 140 mmol/L (136-145); Total Protein 5.2 g/dL (6.4-8.2)
[2023-12-03 13:28] LABS: Magnesium 2.2 mg/dL (1.8-2.4)
[2023-12-03 13:36] LABS: Segmented Neut Absolute Manual 2.22 10^3/uL (1.4-6.5)
[2023-12-03 13:37] LABS: Blast Absolute Manual 0.07
[2023-12-03] MEDS: 0.9 % SODIUM CHLORIDE 1,000 ML 75 ML IV (13:42)
[2023-12-03] MEDS: POTASSIUM CHLORIDE 10 MEQ ER TABLET 20 MEQ PO ×2 (13:42→21:54)
[2023-12-03] MEDS: MAGNESIUM OXIDE 400 MG TABLET PO ×2 (13:42→21:54)
--- NOTE | 2023-12-03 14:00 | SWNOTE1 ---
SW met with pt to discuss dc needs. Pt lives at home by herself. Her daughters and grand-daughters check in on her on a regular basis. Pt uses a walker at home. Pt was here in the outpt setting and was admitted to the floor. Pt has [facility] coming in, but they have not been in due to pt needing to be admitted to hospital. At this time unsure of discharge plans. Possibility pt is going to be transferred. SW to reassess tomorrow.
--- NOTE | 2023-12-03 14:02 | SWNOTE1 ---
Important Message from Medicare reviewed and discussed with patient. Pt. verbalized understanding and signed the form. Original given to patient and copy placed in patient?s chart.
--- NOTE | 2023-12-03 14:47 | P.HP_ITS ---
HPI H&P: HPI History of Present Illness Chief complaint: HYPOTENSION LOW PLATLET AND TENSION Narrative: Patient well-known to me from being seen in the office and multiple hospitalizations, discussed care with oncology team in the infusion center, she received her dose of chemotherapy today, patient feeling worse, weakness, 30 pound weight loss partly is likely from the previous diuresis. No definite shortness of breath just overall generalized weakness. Blood pressure low at infusion center 80s over 60s. Given small fluid bolus there. I saw patient up on the medical surgical floor, she was resting comfortably in bed but definitely more fatigued than when she left the previous time. Again does not describe chest pain or shortness of breath. Just an overall generalized weakness. Laboratory results have not returned. Suspect she is dehydrated. Hold off on diuretics for now. With a 30 pound weight loss this could be a progression of her cancer. Her medically necessary treatment will span 2 midnights. She is on the transfer list to [facility] Opioid HPI Opioid Management Most Recent Opioid Data: Last Pain Scale 4 10/20/23 01:46 Last Pain Assessment 12/03/23 14:00 Last ORT Total Score 0 12/03/23 13:01 Last ORT Risk Category Low Risk 12/03/23 13:01 Review of Systems ROS Status of ROS 10 or more systems reviewed and unremark able except as noted in history and below [facility] Medical History (Updated 10/25/23 @ 00:00 by ) Pleural effusion on right ?J90 - Pleural effusion, not elsewhere classified (ICD-10) Pancytopenia ?D61.818 - Other pancytopenia (ICD-10) Neutropenic fever ?D70.9 - Neutropenia, unspecified (ICD-10) ?R50.81 - Fever presenting with conditions classified elsewhere (ICD-10) Thrombocytopenia ?D69.6 - Thrombocytopenia, unspecified (ICD-10) Symptomatic anemia ?D64.9 - Anemia, unspecified (ICD-10) Acute leukemia ?C95.00 - Acute leukemia of unspecified cell type not having achieved r emission (ICD-10) AML (acute myeloblastic leukemia) ?C92.00 - Acute myeloblastic leukemia, not having achieved remission (ICD-10) Malignancy ?C80.1 - Malignant (primary) neoplasm, unspecified (ICD-10) A-fib ?I48.91 - Unspecified atrial fibrillation (ICD-10) HTN (hypertension) ?I10 - Essential (primary) hypertension (ICD-10) CAD (coronary artery disease) ?I25.10 - Atherosclerotic heart disease of [place] coronary artery without angina pectoris (ICD-10) Hyperlipidemia ?E78.5 - Hyperlipidemia, unspecified (ICD-10) DM2 (diabetes mellitus, type 2) ?E11.9 - Type 2 diabetes mellitus without complications (ICD-10) Surgical History S/P CABG x 4 ?Z95.1 - Presence of aortocoronary bypass graft (ICD-10) Family History (Updated 10/11/23 @ 18:08 by Bonny Jaramillo) Mother Family history of CHF (congestive heart failure) Social History (Updated 10/11/23 @ 18:09 by Bonny Jaramillo) Within the past year, how often did you have a drink containing alcohol: monthly or less Within the past year, how many standard drinks containing alcohol did you have on a typical day: 1 or 2 Within the past year, how often did you have six or more drinks on one occasion: never Total score: 0 Score interpretation: A score less than 3 is consistent with normal alcohol consumption. Smoking status: Never smoker Non-prescribed substance use: denies use Previous occupational history: retired Highest level of school completed/degree received: some college, no degree Are you now , , , , never or living with a partner: In a typical week, how many times do you talk on the telephone with family, frie nds, or neighbors: 3 or more times per week How often do you get together with friends or relatives: 3 or more times per week How often do you attend religious or restorationist services: never Do you belong to any clubs or organizations such as religious groups unions, fraternal or athletic groups, or school groups: no Total score: 2 Score interpretation: A score of greater than or equal to 2 indicates the lowest level of social isolation. Little interest or pleasure in doing things: several days Feeling down, depressed, or hopeless: several days Feel stressed/tense/nervous/anxious/difficulty sleeping: to some extent Life stressor details: cancer diagnosis Do you think of yourself as: straight/heterosexual Gender Identity: female Meds Home Medications and Allergies Home Medications ?Medication ?Instructions ?Recorded ?Confirmed ?Type allopurinol 300 mg tablet 300 mg PO DAILY 10/11/23 12/03/23 History alprazolam 0.5 mg tablet 0.5 mg PO Q12H PRN anxiety 10/11/23 12/03/23 History posaconazole 100 mg tablet,delayed 300 mg PO Q24H 10/11/23 12/03/23 History release metoprolol tartrate 50 mg tablet 50 mg PO Q12H #60 tabs 10/13/23 12/03/23 Rx escitalopram oxalate 10 mg tablet 10 mg PO QD #30 tabs 10/21/23 12/03/23 Rx magnesium oxide 400 mg (241.3 mg 400 mg PO TID #90 tabs 10/21/23 12/03/23 Rx magnesium) tablet potassium chloride 10 mEq 20 meq (2 x 10 mEq) PO TID #90 tabs 10/21/23 12/03/23 Rx tablet,extended release(part/cryst) ondansetron HCl 8 mg tablet 8 mg PO Q12H PRN nausea and 11/29/23 12/03/23 History vomiting prochlorperazine maleate 10 mg 10 mg PO Q8H PRN nausea and 11/29/23 12/03/23 History tablet vomiting acyclovir 400 mg tablet 400 mg PO BID #60 tabs 11/30/23 12/03/23 Rx furosemide 40 mg tablet (Lasix) 40 mg PO QAM #30 tabs 11/30/23 12/03/23 Rx isosorbide mononitrate 60 mg 60 mg PO DAILY #60 tabs 11/30/23 12/03/23 Rx tablet,extended release 24 hr Allergies Allergy/AdvReac Type Severity Reaction Status Date / Time ORANGES AdvReac Uncoded 10/11/23 15:49 Exam Constitutional Vital Signs, click to edit/add: Last Vital Signs Temp 97.4 F L 12/03/23 14:31 Pulse 64 12/03/23 14:31 Resp 16 12/03/23 14:31 BP 159/57 H 12/03/23 14:31 Pulse Ox 98 12/03/23 14:31 O2 Del Method Room Air 12/03/23 14:31 Documenting provider has reviewed patient's vital signs: yes Common normals: no apparent distress Chest Common normals: inspection of chest normal Respiratory Common normals: normal respiratory effort, no retractions and clear to auscultation bilaterally Cardio Common normals: regular rate, regular rhythm and no murmurs Extremity Common normals: normal to inspection, full ROM, no clubbing, cyanosis or edema a nd no calf tenderness Results Labs Labs: Short CBC 12/03/23 Range/Units 12:41 WBC 2.5 L (4.0-11.0) 10^3/uL Hgb 7.7 L (12.0-16.0) g/dL Hct 23.3 L* (36.0-48.0) % Plt Count 5 L* (150-450) 10^3/uL BMP 12/03/23 12:41 Sodium 140 Potassium 3.7 Chloride 104 Carbon Dioxide 32.9 H BUN 31.0 H Creatinine 0.50 L Glucose 107 H Calcium 8.8 Liver Function 12/03/23 Range/Units 12:41 Total Bilirubin 1.8 H (0.2-1.0) mg/dL AST 13 L (15-37) U/L ALT 33 (14-59) U/L Alkaline Phosphatase 95 (46-116) U/L Albumin 3.0 L (3.4-5.0) g/dL
--- NOTE | 2023-12-03 14:50 | P.HP_ITS ---
HPI H&P: HPI History of Present Illness Chief complaint: HYPOTENSION LOW PLATLET AND TENSION Narrative: Patient well-known to me from being seen in the office and multiple hospitalizations, discussed care with oncology team in the infusion center, she received her dose of chemotherapy today, patient feeling worse, weakness, 30 pound weight loss partly is likely from the previous diuresis. No definite shortness of breath just overall generalized weakness. Blood pressure low at infusion center 80s over 60s. Given small fluid bolus there. I saw patient up on the medical surgical floor, she was resting comfortably in bed but definitely more fatigued than when she left the previous time. Again does not describe chest pain or shortness of breath. Just an overall generalized weakness. Laboratory results have not returned. Suspect she is dehydrated. Hold off on diuretics for now. With a 30 pound weight loss this could be a progression of her cancer. Her medically necessary treatment will span 2 midnights. She is on the transfer list to [facility] Opioid HPI Opioid Management Most Recent Opioid Data: Last Pain Scale 4 10/20/23 01:46 Last Pain Assessment 12/03/23 14:00 Last MAR Pain Assessment 11/29/23 10:30 Last ORT Total Score 0 12/03/23 13:01 Last ORT Risk Category Low Risk 12/03/23 13:01 [facility] PFS Medical History (Updated 10/25/23 @ 00:00 by ) Pleural effusion on right ?J90 - Pleural effusion, not elsewhere classified (ICD-10) Pancytopenia ?D61.818 - Other pancytopenia (ICD-10) Neutropenic fever ?D70.9 - Neutropenia, unspecified (ICD-10) ?R50.81 - Fever presenting with conditions classified elsewhere (ICD-10) Thrombocytopenia ?D69.6 - Thrombocytopenia, unspecified (ICD-10) Symptomatic anemia ?D64.9 - Anemia, unspecified (ICD-10) Acute leukemia ?C95.00 - Acute leukemia of unspecified cell type not having achieved remission (ICD-10) AML (acute myeloblastic leukemia) ?C92.00 - Acute myeloblastic leukemia, not having achieved remission (ICD-10) Malignancy ?C80.1 - Malignant (primary) neoplasm, unspecified (ICD-10) A-fib ?I48.91 - Unspecified atrial fibrillation (ICD-10) HTN (hypertension) ?I10 - Essential (primary) hypertension (ICD-10) CAD (coronary artery disease) ?I25.10 - Atherosclerotic heart disease of [place] coronary artery without angina pectoris (ICD-10) Hyperlipidemia ?E78.5 - Hyperlipidemia, unspecified (ICD-10) DM2 (diabetes mellitus, type 2) ?E11.9 - Type 2 diabetes mellitus without complications (ICD-10) Surgical History S/P CABG x 4 ?Z95.1 - Presence of aortocoronary bypass graft (ICD-10) Family History (Updated 10/11/23 @ 18:08 by Bonny Jaramillo) Mother Family history of CHF (congestive heart failure) Social History (Updated 10/11/23 @ 18:09 by Bonny Jaramillo) Within the past year, how often did you have a drink containing alcohol: monthly or less Within the past year, how many standard drinks containing alcohol did you have on a typical day: 1 or 2 Within the past year, how often did you have six or more drinks on one occasion: never Total score: 0 Score interpretation: A score less than 3 is consistent with normal alcohol consumption. Smoking status: Never smoker Non-prescribed substance use: denies use Previous occupational history: retired Highest level of school completed/degree received: some college, no degree Are you now , , , , never or living with a partner: In a typical week, how many times do you talk on the telephone with family, friends, or neighbors: 3 or more times per week How often do you get together with friends or relatives: 3 or more times per week How often do you attend gnosticism or rastafarian services: never Do you belong to any clubs or organizations such as gnosticism groups unions, fraternal or athletic groups, or school groups: no Total score: 2 Score interpretation: A score of greater than or equal to 2 indicates the lowest level of social isolation. Little interest or pleasure in doing things: several days Feeling down, depressed, or hopeless: several days Feel stressed/tense/nervous/anxious/difficulty sleeping: to some extent Life stressor details: cancer diagnosis Do you think of yourself as: straight/heterosexual Gender Identity: female Meds Home Medications and Allergies Home Medications ?Medication ?Instructions ?Recorded ?Confirmed ?Type allopurinol 300 mg tablet 300 mg PO DAILY 10/11/23 12/03/23 History alprazolam 0.5 mg tablet 0.5 mg PO Q12H PRN anxiety 10/11/23 12/03/23 History posaconazole 100 mg tablet,delayed 300 mg PO Q24H 10/11/23 12/03/23 History release metoprolol tartrate 50 mg tablet 50 mg PO Q12H #60 tabs 10/13/23 12/03/23 Rx escitalopram oxalate 10 mg tablet 10 mg PO QD #30 tabs 10/21/23 12/03/23 Rx magnesium oxide 400 mg (241.3 mg 400 mg PO TID #90 tabs 10/21/23 12/03/23 Rx magnesium) tablet potassium chloride 10 mEq 20 meq (2 x 10 mEq) PO TID #90 tabs 10/21/23 12/03/23 Rx tablet,extended release(part/cryst) ondansetron HCl 8 mg tablet 8 mg PO Q12H PRN nausea and 11/29/23 12/03/23 History vomiting prochlorperazine maleate 10 mg 10 mg PO Q8H PRN nausea and 11/29/23 12/03/23 History tablet vomiting acyclovir 400 mg tablet 400 mg PO BID #60 tabs 11/30/23 12/03/23 Rx furosemide 40 mg tablet (Lasix) 40 mg PO QAM #30 tabs 11/30/23 12/03/23 Rx isosorbide mononitrate 60 mg 60 mg PO DAILY #60 tabs 11/30/23 12/03/23 Rx tablet,extended release 24 hr Allergies Allergy/AdvReac Type Severity Reaction Status Date / Time ORANGES AdvReac Uncoded 10/11/23 15:49 Exam Constitutional Vital Signs, click to edit/add: Last Vital Signs Temp 97.4 F L 12/03/23 14:31 Pulse 64 12/03/23 14:31 Resp 16 12/03/23 14:31 BP 159/57 H 12/03/23 14:31 Pulse Ox 98 12/03/23 14:31 O2 Del Method Room Air 12/03/23 14:31 Documenting provider has reviewed patient's vital signs: yes Common normals: no apparent distress Chest Common normals: inspection of chest normal Respiratory Common normals: normal respiratory effort, no retractions and clear to auscultation bilaterally Cardio Common normals: regular rate, regular rhythm and no murmurs Extremity Common normals: normal to inspection, full ROM, no clubbing, cyanosis or edema and no calf tenderness Results Labs Labs: Short CBC 12/03/23 Range/Units 12:41 WBC 2.5 L (4.0-11.0) 10^3/uL Hgb 7.7 L (12.0-16.0) g/dL Hct 23.3 L* (36.0-48.0) % Plt Count 5 L* (150-450) 10^3/uL BMP 12/03/23 12:41 Sodium 140 Potassium 3.7 Chloride 104 Carbon Dioxide 32.9 H BUN 31.0 H Creatinine 0.50 L Glucose 107 H Calcium 8.8 Liver Function 12/03/23 Range/Units 12:41 Total Bilirubin 1.8 H (0.2-1.0) mg/dL AST 13 L (15-37) U/L ALT 33 (14-59) U/L Alkaline Phosphatase 95 (46-116) U/L Albumin 3.0 L (3.4-5.0) g/dL Assessment and Plan Assessment and Plan (1) Acute leukemia: Plan Anemia and thrombocytopenia secondary to her leukemia-trying to get platelet transfusion today. Should be able to get 1 unit Significant dehydration-check on labs, low level IV fluids secondary to fluid overload with previous admission. Hold off on diuretics History of UTI-will check urinalysis. Concerning for hypotension related not today hydration but due to sepsis. Labs are still pending Moderate protein calorie malnutrition-diet management Depression symptoms-patient has not been taking her Lexapro due to availability. Will restart here History of elevated troponins-checking on labs Admission status: Patient had a 1 midnight stay previously. With that she has failed outpatient and observation type treatment. Her medically necessary treatment will span 2 midnights. Will maintain inpatient status. Patient on transfer list to [facility]
[2023-12-03] MEDS: BISACODYL 10 MG RECTAL SUPPOSITORY PR (15:32)
[2023-12-03] MEDS: ESCITALOPRAM 10 MG TABLET PO (15:44)
[2023-12-03] MEDS: LACTULOSE 10 GM/15 ML (237ML) SOLUTION 30 GM PO (17:20)
[2023-12-03] MEDS: PANTOPRAZOLE SODIUM 40 MG VIAL IV (17:22)
--- NOTE | 2023-12-03 20:20 | PC.NURSE ---
extra large loose stool
[2023-12-03] MEDS: METOPROLOL TARTRATE 50 MG TABLET PO (21:54)
[2023-12-03] MEDS: ENSURE HP 237 ML LIQUID PO (21:54)
[2023-12-03] MEDS: ACYCLOVIR 200 MG CAPSULE 400 MG PO (21:54)
[2023-12-03] MEDS: PROSTAT 15 GM PROTEIN/100 CAL 30 ML LIQUID PACKET PO (21:55)
--- NOTE | 2023-12-03 22:33 | PC.NURSE ---
urine mixed with stool
[2023-12-04] VITALS (18 sets, daily range): BP systolic 130–179; BP diastolic 56–83; PULSE 57–71; TEMP 36.3–37; O2SAT 93–99
--- NOTE | 2023-12-04 01:57 | PC.NURSE ---
dark omer yellow urine
[2023-12-04 01:59] LABS: Bilirubin Urine NEGATIVE (NEGATIVE); Blood Urine NEGATIVE (NEGATIVE); Clarity Urine CLEAR (CLEAR); Color Urine YELLOW (YELLOW); Glucose Urine UA 250 mg/dL (NEGATIVE); Ketones Urine NEGATIVE (NEGATIVE); Leukocyte Esterase Urine NEGATIVE (NEGATIVE); Nitrite Urine NEGATIVE (NEGATIVE); Protein Urine TRACE mg/dL (NEG/TRACE)
[2023-12-04 02:12] LABS: Bacteria Urine NONE SEEN #/HPF (NONE SEEN); Crystals Seen? None Seen #/HPF (None Seen); Mucus Urine TRACE (NONE SEEN); RBC Urine NONE SEEN #/HPF (0-2); Squamous Epithelial Cell Urine NONE SEEN #/LPF (NONE/RARE)
[2023-12-04 02:13] LABS: Amorphous Sediment Urine MANY; Cast Seen? NONE SEEN #/LPF (NONE SEEN); Urine Culture Indicated NO
[2023-12-04 05:28] LABS: Hemoglobin 7.1 g/dL (12.0-16.0); Immature Granulocytes Abs Auto 0.03 10^3/uL (0.00-0.03); Immature Granulocytes Pct Auto 1.9 % (0.0-0.5); Lymphocytes Absolute Auto 0.2 10^3/uL (1.2-3.8); Lymphocytes Percent Auto 12.7 % (20.5-60.0); Mean Corpuscular HGB Conc 32.6 g/dL (29.9-35.2); Mean Corpuscular Hemoglobin 30.3 pg (26.7-34.0); Mean Corpuscular Volume 93.2 fL (81.0-99.0); Mean Platelet Volume 13.2 fL (9.5-13.5); Monocytes Absolute Auto 0.1 10^3/uL (0.3-0.8); Monocytes Percent Auto 8.3 % (1.7-12.0); Neutrophils Absolute Auto 1.2 10^3/uL (1.4-6.5); Neutrophils Percent Auto 77.1 % (43.0-75.0); Red Blood Count 2.34 10^6/uL (4.20-5.40); Red Cell Distribution Width 19.1 % (11.0-15.0); White Blood Count 1.6 10^3/uL (4.0-11.0)
[2023-12-04 05:39] LABS: Hematocrit 21.8 % (36.0-48.0); Platelet Count 17 10^3/uL (150-450)
[2023-12-04 05:43] LABS: Alanine Aminotransferase 31 U/L (14-59); Albumin Globulin Ratio 1.2; Albumin Level 2.7 g/dL (3.4-5.0); Alkaline Phosphatase 89 U/L (46-116); Anion Gap 7.9; Aspartate Amino Transferase 9 U/L (15-37); BUN Creatinine Ratio 46.8; Bilirubin Total 1.1 mg/dL (0.2-1.0); Carbon Dioxide 29.9 mmol/L (21.0-32.0); Chloride 109 mmol/L (98-107); Estimated GFR (African America >60 (>=60); Estimated GFR (Non-African Ame >60 (>=60); Globulin 2.3 g/dL; Glucose 137 mg/dL (74-106); Potassium 3.8 mmol/L (3.5-5.1); Sodium 143 mmol/L (136-145)
[2023-12-04] MEDS: POTASSIUM CHLORIDE 10 MEQ ER TABLET 20 MEQ PO ×3 (05:45→21:21)
[2023-12-04] MEDS: MAGNESIUM OXIDE 400 MG TABLET PO ×3 (05:45→21:21)
[2023-12-04] MEDS: 0.9 % SODIUM CHLORIDE 1,000 ML 75 ML IV ×2 (05:45→17:30)
--- NOTE | 2023-12-04 09:12 | P.PN_ITS ---
Progress Note: Subjective Subjective Interval history: Feels somewhat better today. Still fatigued. Exam Constitutional Vital Signs, click to edit/add: Last Vital Signs Temp 98.0 F 12/04/23 08:18 Pulse 60 12/04/23 08:34 Resp 18 12/04/23 08:18 BP 165/76 H 12/04/23 08:34 Pulse Ox 96 12/04/23 08:18 O2 Del Method Room Air 12/04/23 08:18 Documenting provider has reviewed patient's vital signs: yes Common normals: no apparent distress Chest Common normals: inspection of chest normal Respiratory Common normals: normal respiratory effort, no retractions and clear to auscultation bilaterally Cardio Common normals: regular rate, regular rhythm and no murmurs Extremity Common normals: normal to inspection, full ROM, no clubbing, cyanosis or edema and no calf tenderness Progress Note: Objective Labs Labs: Short CBC 12/03/23 12/04/23 Range/Units 12:41 04:48 WBC 2.5 L 1.6 L (4.0-11.0) 10^3/uL Hgb 7.7 L 7.1 L (12.0-16.0) g/dL Hct 23.3 L* 21.8 L* (36.0-48.0) % Plt Count 5 L* 17 L* (150-450) 10^3/uL BMP 12/03/23 12/04/23 12:41 04:48 Sodium 140 143 Potassium 3.7 3.8 Chloride 104 109 H Carbon Dioxide 32.9 H 29.9 BUN 31.0 H 22.0 H Creatinine 0.50 L 0.47 L Glucose 107 H 137 H Calcium 8.8 9.0 Liver Function 12/03/23 12/04/23 Range/Units 12:41 04:48 Total Bilirubin 1.8 H 1.1 H (0.2-1.0) mg/dL AST 13 L 9 L (15-37) U/L ALT 33 31 (14-59) U/L Alkaline Phosphatase 95 89 (46-116) U/L Albumin 3.0 L 2.7 L (3.4-5.0) g/dL Urine 12/04/23 Range/Units 01:49 Urine Color Yellow (YELLOW) Urine Clarity Clear (CLEAR) Urine pH 7.0 (5.0-9.0) Ur Specific [place] 1.020 (1.005-1.025) Urine Protein Trace (NEG/TRACE) mg/dL Urine Glucose (UA) 250 A (NEGATIVE) mg/dL Progress Note: A&P Assessment and Plan (1) Acute leukemia: Plan Anemia and thrombocytopenia secondary to her leukemia-discussed with oncology, will give her dose of chemotherapy again today. Transfuse 1 unit of PRBCs, platelet count is improved Significant dehydration- continue with IV fluids today. BUN-creatinine ratio is improving. Hypertension-continue with medications-blood pressure improved currently. History of UTI-will check urinalysis. Culture should return later today. Started on antibiotics. She does have low-level white blood cell count but with the neutropenia she would not likely have a higher white blood cell count Moderate protein calorie malnutrition-diet management Right pleural effusion-will monitor as an outpatient. Depression symptoms-patient has not been taking her Lexapro due to availability. Will restart here History of elevated troponins-checking on labs Admission status: Patient's medically necessary treatment will span 2 midnights. Currently will hold off on transfer to [facility] as she is overall improved. ?
[2023-12-04] MEDS: ESCITALOPRAM 10 MG TABLET PO (09:48)
[2023-12-04] MEDS: ALLOPURINOL 300 MG TABLET PO (09:48)
[2023-12-04] MEDS: PROSTAT 15 GM PROTEIN/100 CAL 30 ML LIQUID PACKET PO ×2 (09:48→21:20)
[2023-12-04] MEDS: ISOSORBIDE MONONITRATE 60 MG TAB.ER.24H PO (09:48)
[2023-12-04] MEDS: METOPROLOL TARTRATE 50 MG TABLET PO ×2 (09:48→21:21)
[2023-12-04] MEDS: ENSURE HP 237 ML LIQUID PO ×2 (09:48→21:21)
[2023-12-04] MEDS: CEFTRIAXONE 1,000 MG in 0.9 % SODIUM CHLORIDE 50 ML 100 MG IV (09:48)
[2023-12-04] MEDS: ACYCLOVIR 200 MG CAPSULE 400 MG PO ×2 (09:52→21:20)
--- NOTE | 2023-12-04 10:20 | CM.NOTE ---
Rounds made with Dr. Tapia , discussed with pt about transfer to [facility] d/t weight loss and possible change in treatment plan. Phoebe (pocket secretary assembler called [facility] for update on bed status). Pt was not on list for transfer, called and spoke with Jen in [facility] and she would update Dr. Krueger.
--- NOTE | 2023-12-04 12:14 | SWNOTE1 ---
SW did check with [facility] and pt is still current with them. SW to send dc orders once pt is ready for discharge.
[2023-12-04] MEDS: DEXAMETHASONE SODIUM PHOSPHATE IV (12:50)
[2023-12-04] MEDS: SODIUM CHLORIDE 0.9% IV ×2 (12:50→13:10)
[2023-12-04] MEDS: AZACITIDINE IV (13:10)
--- NOTE | 2023-12-04 13:17 | PC.NURSE ---
1240: This RN to M/S room 218 to administer chemotherapy. Pt. lying in bed, awake and alert. Pleasant affect. Relays comfort. Denies c/o n/v, dyspnea or pain. VSS. Daughter at bedside. 1250: IV Decadron initiated at this time.
--- NOTE | 2023-12-04 13:23 | PC.NURSE ---
1310: IV Vidaza initiated at this time. Pt. without c/o or needs.
--- NOTE | 2023-12-04 13:37 | PC.NURSE ---
1337: Tolerating infusion without s&s of adverse reaction.
[2023-12-04] MEDS: DIPHENHYDRAMINE HCL 25 MG CAPSULE PO (13:47)
[2023-12-04] MEDS: ACETAMINOPHEN 325 MG TABLET 650 MG PO (13:47)
[2023-12-04] MEDS: POSACONAZOLE 100 MG 300 EACH PO (13:49)
--- NOTE | 2023-12-04 13:49 | PC.NURSE ---
1345: LONA Campbell completed at this time. VSS. Pt. without s&s of adverse reaction. Port flushed with saline. Pt. without c/o. Report given to RICHY Maciel 1348: Care relinquished at this time.
[2023-12-04] MEDS: PANTOPRAZOLE SODIUM 40 MG VIAL IV (17:30)
[2023-12-04] MEDS: L. ACIDOPHILUS/L.BULGARICUS 1 PACKET GRAN.PACK PO (21:20)
[2023-12-05] VITALS (8 sets, daily range): BP systolic 121–194; BP diastolic 68–90; PULSE 55–68; TEMP 36.3–36.8; O2SAT 93–98
[2023-12-05 05:23] LABS: Hematocrit 24.6 % (36.0-48.0); Immature Granulocytes Abs Auto 0.01 10^3/uL (0.00-0.03); Immature Granulocytes Pct Auto 0.7 % (0.0-0.5); Lymphocytes Absolute Auto 0.2 10^3/uL (1.2-3.8); Lymphocytes Percent Auto 14.2 % (20.5-60.0); Mean Corpuscular HGB Conc 32.5 g/dL (29.9-35.2); Mean Corpuscular Hemoglobin 29.4 pg (26.7-34.0); Mean Corpuscular Volume 90.4 fL (81.0-99.0); Mean Platelet Volume 9.1 fL (9.5-13.5); Monocytes Absolute Auto 0.1 10^3/uL (0.3-0.8); Monocytes Percent Auto 5.7 % (1.7-12.0); Neutrophils Absolute Auto 1.1 10^3/uL (1.4-6.5); Neutrophils Percent Auto 79.4 % (43.0-75.0); Red Blood Count 2.72 10^6/uL (4.20-5.40); Red Cell Distribution Width 20.3 % (11.0-15.0); White Blood Count 1.4 10^3/uL (4.0-11.0)
[2023-12-05] MEDS: 0.9 % SODIUM CHLORIDE 1,000 ML 75 ML IV (05:26)
[2023-12-05] MEDS: MAGNESIUM OXIDE 400 MG TABLET PO ×2 (05:27→13:19)
[2023-12-05] MEDS: POTASSIUM CHLORIDE 10 MEQ ER TABLET 20 MEQ PO ×2 (05:27→13:18)
[2023-12-05 05:28] LABS: Platelet Count 8 10^3/uL (150-450)
[2023-12-05 05:45] LABS: Alanine Aminotransferase 29 U/L (14-59); Albumin Globulin Ratio 1.2; Albumin Level 2.7 g/dL (3.4-5.0); Alkaline Phosphatase 81 U/L (46-116); Anion Gap 9.2; Aspartate Amino Transferase 9 U/L (15-37); Calcium 9.2 mg/dL (8.5-10.1); Carbon Dioxide 27.1 mmol/L (21.0-32.0); Chloride 108 mmol/L (98-107); Estimated GFR (African America >60 (>=60); Estimated GFR (Non-African Ame >60 (>=60); Globulin 2.2 g/dL; Glucose 142 mg/dL (74-106); Potassium 4.3 mmol/L (3.5-5.1); Sodium 140 mmol/L (136-145); Total Protein 4.9 g/dL (6.4-8.2)
[2023-12-05] MEDS: ACETAMINOPHEN 325 MG TABLET 650 MG PO (08:41)
[2023-12-05] MEDS: PROSTAT 15 GM PROTEIN/100 CAL 30 ML LIQUID PACKET PO (08:41)
[2023-12-05] MEDS: ESCITALOPRAM 10 MG TABLET PO (08:41)
[2023-12-05] MEDS: ACYCLOVIR 200 MG CAPSULE 400 MG PO (08:41)
[2023-12-05] MEDS: CEFTRIAXONE 1,000 MG in 0.9 % SODIUM CHLORIDE 50 ML 100 MG IV (08:42)
[2023-12-05] MEDS: METOPROLOL TARTRATE 50 MG TABLET PO (08:42)
[2023-12-05] MEDS: ISOSORBIDE MONONITRATE 60 MG TAB.ER.24H PO (08:42)
[2023-12-05] MEDS: ENSURE HP 237 ML LIQUID PO (08:42)
[2023-12-05] MEDS: DIPHENHYDRAMINE HCL 25 MG CAPSULE PO (08:42)
[2023-12-05] MEDS: L. ACIDOPHILUS/L.BULGARICUS 1 PACKET GRAN.PACK PO (08:42)
[2023-12-05] MEDS: ALLOPURINOL 300 MG TABLET PO (08:42)
--- NOTE | 2023-12-05 09:17 | P.DS_ITS ---
DS: Providers Provider Date of admission: 12/03/23 12:12 Primary care physician: Armani Tapia MD Consults: 12/03/23 Consult to Dietitian Routine Reason for consultation: Weight loss 12/03/23 12:27 Consult to Pharmacy Routine Consulting Provider: Reason for consultation: Please [place] me when Med Rec is Updated Has provider been notified: No Occupational Therapy Eval and Treat Routine Reason for consultation: Only if needed for Rehab Has provider been notified: No Physical Therapy Eval and Treat Routine Reason for consultation: Eval and Treat Has provider been notified: No DS: Diagnosis Discharge Diagnosis (1) Acute leukemia: Plan Anemia and thrombocytopenia secondary to her leukemia-hemoglobin stable at the time of discharge, platelet count low on the day of discharge but is receiving a transfusion prior to discharge Significant dehydration-resolved Hypertension-elevated at the time of discharge we will monitor as an outpatient History of UTI-will check urinalysis. Culture negative but will finish antibiotics Moderate protein calorie malnutrition-diet management Right pleural effusion-will monitor as an outpatient. Depression symptoms-patient has not been taking her Lexapro due to availability. Maintain as an outpatient History of elevated troponins-checking on labs Admission status: Patient's medically necessary treatment will span 2 midnights. Currently will hold off on transfer to [facility] as she is overall improved. ? ? DS: Summary Status at Discharge Cognitive/behavioral status at discharge: Patient was referred from the oncology clinic due to significant dehydration. Increasing weakness. She did receive transfusion of 2 units of platelets throughout the hospitalization. 1 unit of PRBCs. She also has significant constipation. That is resolved with lactulose. Today she feels much improved. Her blood pressure is elevated we will follow-up with that as an outpatient. She is medically stable for discharge. Keep with her planned visits with oncology. Medications see list. Time Spent with Patient Time attestation: Total time spent providing and/or coordinating discharge services: Time spent: greater than 30 minutes Exam Constitutional Vital Signs, click to edit/add: Last Vital Signs Temp 98.0 F 12/05/23 08:00 Pulse 56 L 12/05/23 08:00 Resp 18 12/05/23 08:00 BP 184/90 H 12/05/23 08:00 Pulse Ox 98 12/05/23 08:00 O2 Del Method Room Air 12/05/23 08:00 Documenting provider has reviewed patient's vital signs: yes Common normals: no apparent distress Chest Common normals: inspection of chest normal Respiratory Common normals: normal respiratory effort, no retractions and clear to auscultation bilaterally Cardio Common normals: regular rate, regular rhythm and no murmurs Extremity Common normals: normal to inspection, full ROM and no calf tenderness; clubbing, cyanosis or edema (She does have 1-2+ edema in her feet. Will restart Lasix as an outpatient) DS: Data Data Completed and Pending Labs on day of discharge: Labs from last 24 hours 12/05/23 12/03/23 05:08 09:30 WBC 1.4 L RBC 2.72 L Hgb 8.0 L Hct 24.6 L MCV 90.4 MCH 29.4 MCHC 32.5 RDW 20.3 H Plt Count 8 L* MPV 9.1 L Neut % (Auto) 79.4 H Lymph % (Auto) 14.2 L [place] % (Auto) 5.7 Eos % (Auto) 0.0 L Baso % (Auto) 0.0 L Neut # (Auto) 1.1 L Lymph # (Auto) 0.2 L [place] # (Auto) 0.1 L Eos # (Auto) 0.0 Baso # (Auto) 0.0 Abs Immat Gran (auto) 0.01 Imm/Tot Granulo (auto) 0.7 H Sodium 140 Potassium 4.3 Chloride 108 H Carbon Dioxide 27.1 Anion Gap 9.2 BUN 22.0 H Creatinine 0.40 L Est GFR ( Amer) >60 Est GFR (Non-Af Amer) >60 BUN/Creatinine Ratio 55.0 Glucose 142 H Calcium 9.2 Total Bilirubin 1.0 AST 9 L ALT 29 Alkaline Phosphatase 81 Total Protein 4.9 L Albumin 2.7 L Globulin 2.2 Albumin/Globulin Ratio 1.2 Blood Type B Positive Antibody Screen Negative Crossmatch See Detail Discharge Plan Discharge Disposition: Home, Self-Care Discharge Medications: New cefdinir 300 mg capsule 600 mg PO DAILY Qty: 10 0RF Continued allopurinol 300 mg tablet 300 mg PO DAILY posaconazole 100 mg tablet,delayed release (DR/EC) 300 mg PO Q24H alprazolam 0.5 mg tablet 0.5 mg PO Q12H PRN (Reason: anxiety) metoprolol tartrate 50 mg Tablet 50 mg PO Q12H Qty: 60 11RF magnesium oxide 400 mg (241.3 mg magnesium) Tablet 400 mg PO TID Qty: 90 11RF escitalopram oxalate 10 mg Tablet 10 mg PO QD Qty: 30 11RF potassium chloride 10 mEq Tablet,Er Particles/Crystals 20 meq PO TID Qty: 90 11RF ondansetron HCl 8 mg tablet 8 mg PO Q12H PRN (Reason: nausea and vomiting) prochlorperazine maleate 10 mg tablet 10 mg PO Q8H PRN (Reason: nausea and vomiting) furosemide [Lasix] 40 mg tablet 40 mg PO QAM Qty: 30 11RF Hold Instructions: Per Dr Krueger isosorbide mononitrate 60 mg tablet extended release 24 hr 60 mg PO DAILY Qty: 60 11RF acyclovir 400 mg tablet 400 mg PO BID Qty: 60 11RF Activity: increase activity as tolerated Diet: advance to your usual diet Print Language: Guatemalan Patient Instructions: Leukocytosis (DC), Hypotension (DC) Stock Letterer/Gas Appliance Installer Instructions: Resume [facility], phone number is [phone] Forms: Portal Instructions Follow Up Appointments: No follow up needed per Dr. Tapia. Please contact his office if any issues arise. [phone] [facility] will contact you to schedule an appointment with Dr Krueger
--- NOTE | 2023-12-05 09:39 | CM.NOTE ---
Rounds made with Dr. Tapia. Plan for discharge today after Platelets given. Myrna in agreement with plan.
[2023-12-05] MEDS: HYDRALAZINE HCL 20 MG/ML VIAL 10 MG IVP (10:49)
--- NOTE | 2023-12-05 11:06 | PT.DAILY ---
Physical Therapy Daily Note PT Daily Note/Assess Start: 12/04/23 12:40 Freq: Status: Active Protocol: Document 12/05/23 11:05 ECHO (Rec: 12/05/23 11:06 ECHO [id number]) Visit Not Completed Visit Not Completed Visit Not Completed Due to: Other Other Reason Visit Not Completed Receiving platelets and working with respiratory therapy at this time. Planned dc after lunch. Physical Therapy Daily Note/Assessment Time In/Time Out Time In 11:00 Time Out 11:00 Pain In Pain N/A Pain Out Pain N/A GG. Functional Abilities and Goals-Complete for Swing [facility] Patients Only [id number]. Self-Care [id number]. Mobility
--- NOTE | 2023-12-05 12:01 | SWNOTE1 ---
Pt is being discharged today. SW sent face sheet, H&P, progress note, dc summary, PT/OT notes, dc med rec, and labs from today to [facility] .
[2023-12-05] MEDS: POSACONAZOLE 100 MG 300 EACH PO (13:19)
--- NOTE | 2023-12-06 15:02 | CM.DCFOLLOWU ---
Person spoke with: Myrna How are you feeling? Better How is your pain? No pain Did you understand your discharge instructions? Yes Do you have any questions about your discharge instructions? No Were you given any prescriptions at discharge? Yes Were you able to get your prescriptions filled? Yes Do you understand how to take your medications as ordered? Yes Do you have any questions about your follow up appointment and do you plan to keep your follow up appointment? No I have appt to get more platelets tomorrow. Is there anything else that you would like to discuss? No Questions/Comments/Concerns/Other:
== END 2023-12-05 13:56 | disposition home health service (06) | DRG 641 ==
PROVIDERS: Admitting Provider Family Medicine; PCP Family Medicine; Visit Provider Family Medicine
DX: E86.0 Dehydration (principal); C92.00 Acute myeloblastic leukemia, not having achieved remission; E44.0 Moderate protein-calorie malnutrition; J90 Pleural effusion, not elsewhere classified; D69.6 Thrombocytopenia, unspecified; Z68.24 Body mass index [BMI] 24.0-24.9, adult; F32.A Depression, unspecified; K59.00 Constipation, unspecified; I48.91 Unspecified atrial fibrillation; Z95.1 Presence of aortocoronary bypass graft; E11.9 Type 2 diabetes mellitus without complications; I25.10 Atherosclerotic heart disease of native coronary artery without angina pectoris; I10 Essential (primary) hypertension; Z91.018 Allergy to other foods; Z87.440 Personal history of urinary (tract) infections; Z79.899 Other long term (current) drug therapy
CPT/HCPCS: 36415; 36430; 36591; 71046; 80053; 81001; 83605; 83735; 83880; 85007; 85025; 85027; 86850; 86900; 86901; 87040; 87070; 87086; 94667; 94668; 94761; 96361; 96366; 96367; 96375; 96376; 97162; 97165; J1100; J9025; P9035; P9038

== ENCOUNTER 2023-12-14 07:27 | Outpatient (RCR) | payer MEDICARE, SELFPAY ==
[2023-11-20 09:50] VITALS: BP 103/64; PULSE 61; TEMP 36.7; O2SAT 100
[2023-11-20 10:06] LABS: Hematocrit 24.6 % (36.0-48.0); Hemoglobin 7.7 g/dL (12.0-16.0); Mean Corpuscular HGB Conc 31.3 g/dL (29.9-35.2); Mean Corpuscular Hemoglobin 30.8 pg (26.7-34.0); Mean Corpuscular Volume 98.4 fL (81.0-99.0); Red Cell Distribution Width 21.6 % (11.0-15.0); White Blood Count 2.1 10^3/uL (4.0-11.0)
[2023-11-20 10:13] LABS: Alanine Aminotransferase 21 U/L (14-59); Albumin Level 2.4 g/dL (3.4-5.0); Alkaline Phosphatase 138 U/L (46-116); Anion Gap 11.1; Aspartate Amino Transferase 21 U/L (15-37); BUN Creatinine Ratio 18.8; Bilirubin Total 0.7 mg/dL (0.2-1.0); Calcium 8.1 mg/dL (8.5-10.1); Carbon Dioxide 23.2 mmol/L (21.0-32.0); Chloride 109 mmol/L (98-107); Estimated GFR (African America >60 (>=60); Estimated GFR (Non-African Ame >60 (>=60); Globulin 2.5 g/dL; Glucose 120 mg/dL (74-106); Potassium 4.3 mmol/L (3.5-5.1); Sodium 139 mmol/L (136-145); Total Protein 4.9 g/dL (6.4-8.2)
[2023-11-20 10:39] LABS: Platelet Count 18 10^3/uL (150-450)
[2023-11-20 11:04] LABS: Basophils Abs Manual 0.02 10^3/uL (0.00-0.10); Lymphocytes Absolute Manual 0.71 10^3/uL (1.20-3.80); Monocytes Absolute Manual 0.16 10^3/uL (0.30-0.80)
[2023-11-20 11:06] LABS: Atypical Lymphocytes Abs Man 0.12; Segmented Neut Absolute Manual 0.96 10^3/uL (1.4-6.5)
[2023-11-20 11:08] LABS: Anisocytosis 1+; Ovalocytes 1+; Poikilocytosis 1+
[2023-11-20] MEDS: HEPARIN SODIUM (PORCINE) PF LOCK FLUSH 500 UNIT/5 ML SYRINGE IV (11:24)
--- NOTE | 2023-11-20 11:29 | PC.NURSE ---
1124: Dr. Krueger speaks with patient and daughter regarding plan of care. Both relay understanding. Port flushed with saline and Heparin flush. Port de-accessed. Pt. d/c'd amb. to home.
[2023-11-22 09:52] LABS: Hematocrit 24.5 % (36.0-48.0); Hemoglobin 7.7 g/dL (12.0-16.0); Mean Corpuscular HGB Conc 31.4 g/dL (29.9-35.2); Mean Corpuscular Hemoglobin 30.8 pg (26.7-34.0); Mean Platelet Volume 11.6 fL (9.5-13.5); Red Cell Distribution Width 22.2 % (11.0-15.0); White Blood Count 2.1 10^3/uL (4.0-11.0)
[2023-11-22 10:00] LABS: Platelet Count 12 10^3/uL (150-450)
[2023-11-22 10:07] LABS: Alanine Aminotransferase 19 U/L (14-59); Albumin Level 2.5 g/dL (3.4-5.0); Alkaline Phosphatase 133 U/L (46-116); Anion Gap 13.3; Aspartate Amino Transferase 23 U/L (15-37); BUN Creatinine Ratio 17.2; Bilirubin Total 0.8 mg/dL (0.2-1.0); Calcium 8.3 mg/dL (8.5-10.1); Carbon Dioxide 22.8 mmol/L (21.0-32.0); Chloride 106 mmol/L (98-107); Estimated GFR (African America >60 (>=60); Estimated GFR (Non-African Ame >60 (>=60); Globulin 2.6 g/dL; Glucose 125 mg/dL (74-106); Potassium 4.1 mmol/L (3.5-5.1); Sodium 138 mmol/L (136-145); Total Protein 5.1 g/dL (6.4-8.2)
[2023-11-22 10:11] VITALS: BP 101/67; PULSE 60; TEMP 37.1; O2SAT 97
--- NOTE | 2023-11-22 10:14 | PC.NURSE ---
0940 Labs drawn from rt chest port, excellent blood return noted.
[2023-11-22 10:15] LABS: Anisocytosis 2+; Eosinophils Absolute Manual 0.04 10^3/uL (0.00-0.70); Lymphocytes Absolute Manual 0.81 10^3/uL (1.20-3.80); Monocytes Absolute Manual 0.21 10^3/uL (0.30-0.80); Segmented Neut Absolute Manual 1.02 10^3/uL (1.4-6.5)
--- NOTE | 2023-11-22 10:20 | PC.NURSE ---
1020 All labs returned no need for transfusion. chest port flushed with hep lock flush. deaccessed, bandaid applied. Released ambulatory with family
[2023-11-23 12:54] VITALS: BP 122/59; PULSE 63; TEMP 36.8; O2SAT 95
[2023-11-23] MEDS: ACETAMINOPHEN 325 MG TABLET 650 MG PO (12:55)
[2023-11-23] MEDS: DIPHENHYDRAMINE HCL 25 MG CAPSULE PO (12:55)
[2023-11-23 13:02] VITALS: BP 122/59; PULSE 63; TEMP 36.8; O2SAT 95
[2023-11-23 13:20] VITALS: BP 98/53; PULSE 63; TEMP 37; O2SAT 97
--- NOTE | 2023-11-23 13:51 | PC.NURSE ---
1254: Pt. to [facility] via w/c accompanied by granddaughter. Assisted to recliner chair. VSS. Using sterile technique, right ant. chest port accessed without difficulty, see documentation. Pt. tolerated with no c/o. Secured with large opsite dressing. Pre-transfusion meds administered. 1305: 1 unit of psoralen treated platelets initiated at this time. Positioned for comfort. Warm blankets and water provided. Declines snack.
[2023-11-23 14:05] VITALS: BP 103/43; PULSE 58; TEMP 36.9; O2SAT 96
--- NOTE | 2023-11-23 14:44 | PC.NURSE ---
1405: VSS. Resting quietly off and on with eyes closed. Denies c/o or needs. 1435: No new changes in overall status.
[2023-11-23 14:58] VITALS: BP 133/58; PULSE 66; TEMP 36.7; O2SAT 94
--- NOTE | 2023-11-23 15:04 | PC.NURSE ---
1455: Platelets infused without s&s of adverse reaction. Pt. denies c/o. Port flushed with saline and Heparin, port de-accessed. Trace bleeding. covered with cotton ball, secured with bandaid. Pt. tolerates without c/o. 1458: Pt. d/c'd via w/c to car and home with granddaughter.
[2023-11-23 15:55] VITALS: TEMP 37.2
[2023-11-26 09:46] VITALS: BP 129/54; PULSE 65; TEMP 36.8; O2SAT 98
[2023-11-26 10:05] LABS: Mean Corpuscular HGB Conc 31.2 g/dL (29.9-35.2); Mean Corpuscular Hemoglobin 31.5 pg (26.7-34.0); Mean Corpuscular Volume 100.9 fL (81.0-99.0); Red Blood Count 2.13 10^6/uL (4.20-5.40); Red Cell Distribution Width 23.3 % (11.0-15.0); White Blood Count 1.6 10^3/uL (4.0-11.0)
[2023-11-26 10:15] LABS: Hematocrit 21.5 % (36.0-48.0); Hemoglobin 6.7 g/dL (12.0-16.0); Platelet Count 9 10^3/uL (150-450)
[2023-11-26 10:16] LABS: Alanine Aminotransferase 21 U/L (14-59); Albumin Globulin Ratio 1.1; Albumin Level 2.6 g/dL (3.4-5.0); Alkaline Phosphatase 129 U/L (46-116); Anion Gap 11.3; Aspartate Amino Transferase 20 U/L (15-37); BUN Creatinine Ratio 19.7; Bilirubin Total 0.7 mg/dL (0.2-1.0); Calcium 8.4 mg/dL (8.5-10.1); Carbon Dioxide 23.9 mmol/L (21.0-32.0); Chloride 108 mmol/L (98-107); Estimated GFR (African America >60 (>=60); Estimated GFR (Non-African Ame >60 (>=60); Globulin 2.3 g/dL; Glucose 116 mg/dL (74-106); Lactate Dehydrogenase 254 U/L (81-234); Potassium 4.2 mmol/L (3.5-5.1); Sodium 139 mmol/L (136-145); Total Protein 4.9 g/dL (6.4-8.2)
[2023-11-26 10:33] LABS: Basophils Abs Manual 0.03 10^3/uL (0.00-0.10); Eosinophils Absolute Manual 0.09 10^3/uL (0.00-0.70); Lymphocytes Absolute Manual 0.89 10^3/uL (1.20-3.80); Metamyelocytes Absolute Manual 0.03; Monocytes Absolute Manual 0.09 10^3/uL (0.30-0.80); Segmented Neut Absolute Manual 0.44 10^3/uL (1.4-6.5)
[2023-11-26] MEDS: PALONOSETRON HCL 0.25 MG/5 ML VIAL IV (11:18)
[2023-11-26] MEDS: DEXAMETHASONE SODIUM PHOSPHATE 10 MG in 0.9 % SODIUM CHLORIDE 100 ML 303 MG IV (11:20)
[2023-11-26] MEDS: SODIUM CHLORIDE 0.9% IV (12:00)
[2023-11-26] MEDS: AZACITIDINE IV (12:00)
[2023-11-26] MEDS: ACETAMINOPHEN 325 MG TABLET 650 MG PO (13:51)
[2023-11-26] MEDS: DIPHENHYDRAMINE HCL 25 MG CAPSULE PO (13:51)
[2023-11-26 13:54] VITALS: BP 117/60; PULSE 58; TEMP 37.2; O2SAT 94
--- NOTE | 2023-11-26 13:56 | PC.NURSE ---
PRBC's initiated at 120 ml hr. instructed on s/s of reaction, ie chest pain shortness of breath itching hives ect. instructed to call staff. verbalizes understanding. Lungs clear posteriorly to auscultation. heart tones regular. noted 1+pretibial pitting edema.
[2023-11-26] MEDS: 0.9 % SODIUM CHLORIDE 250 ML 10 ML IV (14:00)
--- NOTE | 2023-11-26 14:34 | PC.NURSE ---
1410 ambulates to bathroom with walker, does well. voids qs dark alexis urine. returned to recliner.
[2023-11-26 15:21] VITALS: TEMP 37.3; O2SAT 97
--- NOTE | 2023-11-26 15:22 | PC.NURSE ---
1322 prbc's infused, ns flush began. tolerated well without any issues. 1322 Platelets initiated at 120 ml hr.resting quietly reclining in chair.
[2023-11-26 15:33] VITALS: BP 134/76; PULSE 62; TEMP 37.2; O2SAT 98
--- NOTE | 2023-11-26 15:43 | PC.NURSE ---
tolerating platelets without any s/s of reaction.. rate increased to 260 ml hr.
[2023-11-26 16:31] VITALS: BP 136/79; PULSE 67; TEMP 37.4; O2SAT 96
--- NOTE | 2023-11-26 16:32 | PC.NURSE ---
1630 platelets infused. normal saline flush started. Lungs clear, heart tones strong and regular. 1 port flushed with normal saline and hep lock flush.
[2023-11-27 09:15] VITALS: BP 161/72; PULSE 67; TEMP 36.6; O2SAT 98
[2023-11-27 09:29] VITALS: BP 161/72; PULSE 67; TEMP 36.6; O2SAT 97
[2023-11-27 09:29] LABS: Hematocrit 24.8 % (36.0-48.0); Mean Corpuscular HGB Conc 32.3 g/dL (29.9-35.2); Mean Corpuscular Hemoglobin 31.3 pg (26.7-34.0); Mean Corpuscular Volume 96.9 fL (81.0-99.0); Red Blood Count 2.56 10^6/uL (4.20-5.40); Red Cell Distribution Width 22.2 % (11.0-15.0)
[2023-11-27 09:34] LABS: Platelet Count 20 10^3/uL (150-450)
[2023-11-27 09:46] LABS: Alanine Aminotransferase 20 U/L (14-59); Albumin Globulin Ratio 1.1; Albumin Level 2.8 g/dL (3.4-5.0); Alkaline Phosphatase 128 U/L (46-116); Anion Gap 14.4; Aspartate Amino Transferase 17 U/L (15-37); BUN Creatinine Ratio 23.1; Bilirubin Total 0.8 mg/dL (0.2-1.0); Calcium 8.7 mg/dL (8.5-10.1); Carbon Dioxide 23.2 mmol/L (21.0-32.0); Chloride 104 mmol/L (98-107); Estimated GFR (African America >60 (>=60); Estimated GFR (Non-African Ame >60 (>=60); Globulin 2.5 g/dL; Glucose 158 mg/dL (74-106); Potassium 4.6 mmol/L (3.5-5.1); Sodium 137 mmol/L (136-145); Total Protein 5.3 g/dL (6.4-8.2)
--- NOTE | 2023-11-27 10:13 | PC.NURSE ---
0915: Pt. to [facility] amb. using walker. Accompanied by granddaughter. Relays feeling so much better today. Weight obtained. Seated in recliner. VSS. Using sterile technique, right ant. chest port accessed using 20 gauge Hawk needle. Flushes easily and able to aspirate blood easily. Blood obtained for ordered labs. Pt tolerated without c/o. Pt to exam room for appt. with Dr. Krueger.
[2023-11-27] MEDS: DEXAMETHASONE SODIUM PHOSPHATE 10 MG in 0.9 % SODIUM CHLORIDE 100 ML 303 MG IV (10:45)
[2023-11-27 10:47] LABS: Lymphocytes Absolute Manual 0.56 10^3/uL (1.20-3.80); Monocytes Absolute Manual 0.08 10^3/uL (0.30-0.80); Segmented Neut Absolute Manual 1.36 10^3/uL (1.4-6.5)
[2023-11-27 10:48] LABS: Poikilocytosis 1+
[2023-11-27 10:49] LABS: Tear Drop Cells 1+
[2023-11-27] MEDS: 0.9 % SODIUM CHLORIDE 250 ML 30 ML IV (10:52)
[2023-11-27] MEDS: AZACITIDINE IV (11:08)
[2023-11-27] MEDS: SODIUM CHLORIDE 0.9% IV (11:08)
--- NOTE | 2023-11-27 11:16 | PC.NURSE ---
1040: Returns to infusion chair from Dr. Krueger's offiice appt. IV Decadron initiated at this time.
--- NOTE | 2023-11-27 11:17 | PC.NURSE ---
1108: IV Adrian initiated at this time. Pt. given snack and water. Denies needs or c/o.
--- NOTE | 2023-11-27 11:34 | PC.NURSE ---
Pt. tolerating infusion without c/o. Denies needs.
[2023-11-27] MEDS: HEPARIN SODIUM (PORCINE) PF LOCK FLUSH 500 UNIT/5 ML SYRINGE IV (11:40)
[2023-11-27 11:55] VITALS: BP 149/76; PULSE 64; TEMP 37.1; O2SAT 97
--- NOTE | 2023-11-27 11:57 | PC.NURSE ---
1140: Vidaza infusion completed without c/o adverse reaction. VSS. Port flushed with saline and Heparin, port de-accessed. Covered with sterile 2x2. 1149: Pt. d/c'd amb. to home with granddaughter.
[2023-11-28 09:25] VITALS: BP 167/66; PULSE 77; TEMP 37.2; O2SAT 96
[2023-11-28] MEDS: 0.9 % SODIUM CHLORIDE 250 ML 30 ML IV (09:30)
[2023-11-28 09:45] LABS: Hemoglobin 7.8 g/dL (12.0-16.0); Mean Corpuscular HGB Conc 33.3 g/dL (29.9-35.2); Mean Corpuscular Hemoglobin 32.4 pg (26.7-34.0); Mean Corpuscular Volume 97.1 fL (81.0-99.0); Red Blood Count 2.41 10^6/uL (4.20-5.40); Red Cell Distribution Width 22.8 % (11.0-15.0); White Blood Count 2.8 10^3/uL (4.0-11.0)
[2023-11-28 09:48] LABS: Mean Platelet Volume 9.3 fL (9.5-13.5)
[2023-11-28 09:50] LABS: Hematocrit 23.4 % (36.0-48.0); Platelet Count 11 10^3/uL (150-450)
--- NOTE | 2023-11-28 10:31 | PC.NURSE ---
0925: Pt. to [facility] amb. using walker. Weight obtained. Seated in recliner. VSS. Using sterile technique, right ant. chest port accessed. See documentation. Blood obtained for lab work. Pt. tolerated without c/o. Given warm blanket and water. Granddaughter at chairside. 0941: Parameters clarified with Dr. Krueger for Hgb and platelets. New orders placed in [facility] EMR per Dr. Krueger. Pt. notified. Relays understanding.
[2023-11-28 10:34] LABS: Blast Absolute Manual 0.19; Lymphocytes Absolute Manual 0.36 10^3/uL (1.20-3.80); Monocytes Absolute Manual 0.14 10^3/uL (0.30-0.80)
[2023-11-28 10:35] LABS: Anisocytosis 2+; Hypochromasia 1+; Poikilocytosis 1+
[2023-11-28] MEDS: DEXAMETHASONE SODIUM PHOSPHATE 10 MG in 0.9 % SODIUM CHLORIDE 100 ML 303 MG IV (10:41)
[2023-11-28] MEDS: SODIUM CHLORIDE 0.9% IV (11:14)
[2023-11-28] MEDS: AZACITIDINE IV (11:14)
--- NOTE | 2023-11-28 11:23 | PC.NURSE ---
1041: IV Decadron initiated as ordered. Pt. without needs or c/o. 1105: Decadron completed without c/o adverse reaction. Assisted to bathroom, gait steady. 1114: IV Vidaza initiated at this time. Given snack and water.
--- NOTE | 2023-11-28 11:53 | PC.NURSE ---
LONA Campbell completed without s&s of adverse reaction. VSS. Lunch tray provided. Denies needs or c/o.
--- NOTE | 2023-11-28 12:28 | PC.NURSE ---
Pt. resting with eyes closed. Waiting for platelets to arrive from blood bank from [place]. Appears to be without distress or discomfort.
[2023-11-28] MEDS: ACETAMINOPHEN 325 MG TABLET 650 MG PO (13:00)
[2023-11-28] MEDS: DIPHENHYDRAMINE HCL 25 MG CAPSULE PO (13:00)
[2023-11-28 13:25] VITALS: BP 149/81; PULSE 60; TEMP 37.1; O2SAT 95
[2023-11-28 13:43] VITALS: BP 168/87; PULSE 67; TEMP 37.1; O2SAT 96
--- NOTE | 2023-11-28 13:47 | PC.NURSE ---
1328: Platelets initiated at this time. Assisted pt. up to bathroom. Slightly dyspneic with exertion, breathes easily at rest. 1343: VSS. Resting quietly with eyes closed
--- NOTE | 2023-11-28 14:14 | PC.NURSE ---
Pt. resting quietly with eyes closed. Platelets cont. to infuse. IV site clear.
[2023-11-28] MEDS: HEPARIN SODIUM (PORCINE) PF LOCK FLUSH 500 UNIT/5 ML SYRINGE IV (14:55)
[2023-11-28 14:56] VITALS: BP 165/83; PULSE 68; TEMP 37.1; O2SAT 94
--- NOTE | 2023-11-28 15:04 | PC.NURSE ---
Addendum entered by Yordy Stephen 11/28/23 15:19: Please note on TAR end time should be 1450, and documented as 1455. Original Note: 1450: Platelet infusion completed. VSS. Relays slight dyspnea. Ankles notably edematous and lungs with fine bi-basilar crackles. Relayed not taking daily lasix today. Instructed to take when arrives home. Pt. relays understanding. This RN sends notification to Dr. Krueger in [facility]. Informed pt. this RN will notify if further orders are given. Pt. relays wanting to go home as granddaughter waiting in car. 1456: This RN accompanies pt to car. Able to walk without difficulty using walker. D/c'd to home with granddaughter.
[2023-11-29 09:35] VITALS: BP 184/79; PULSE 56; TEMP 37.3; O2SAT 94
[2023-11-29] MEDS: BUMETANIDE 1 MG/4 ML VIAL IVP (09:48)
[2023-11-29 09:59] LABS: Hemoglobin 7.5 g/dL (12.0-16.0); Mean Corpuscular HGB Conc 32.2 g/dL (29.9-35.2); Mean Corpuscular Hemoglobin 31.5 pg (26.7-34.0); Mean Corpuscular Volume 97.9 fL (81.0-99.0); Mean Platelet Volume 11.1 fL (9.5-13.5); Red Blood Count 2.38 10^6/uL (4.20-5.40); Red Cell Distribution Width 22.7 % (11.0-15.0)
[2023-11-29 10:08] LABS: Hematocrit 23.3 % (36.0-48.0); Platelet Count 17 10^3/uL (150-450)
[2023-11-29 10:10] LABS: Alanine Aminotransferase 25 U/L (14-59); Albumin Globulin Ratio 1.2; Albumin Level 3.2 g/dL (3.4-5.0); Alkaline Phosphatase 115 U/L (46-116); Anion Gap 11.2; Aspartate Amino Transferase 16 U/L (15-37); BUN Creatinine Ratio 29.9; Bilirubin Total 1.1 mg/dL (0.2-1.0); Calcium 8.8 mg/dL (8.5-10.1); Carbon Dioxide 27.5 mmol/L (21.0-32.0); Chloride 103 mmol/L (98-107); Estimated GFR (African America >60 (>=60); Estimated GFR (Non-African Ame >60 (>=60); Globulin 2.6 g/dL; Glucose 169 mg/dL (74-106); Potassium 3.7 mmol/L (3.5-5.1); Sodium 138 mmol/L (136-145); Total Protein 5.8 g/dL (6.4-8.2)
--- NOTE | 2023-11-29 10:20 | PC.NURSE ---
0935: Pt. to [facility] amb. using walker, accompanied by granddaughter. Weight obtained. Seated in recliner. See documentation for full assessment. Pt. notably dyspneic with exertion and at rest. Denies pain or n/v. Using sterile technique, right ant. chest port accessed without difficulty. Flushes easily and able to aspirate Blood easily. Labs obtained.
[2023-11-29] MEDS: DIPHENHYDRAMINE HCL 25 MG CAPSULE PO (10:30)
[2023-11-29] MEDS: ACETAMINOPHEN 325 MG TABLET 650 MG PO (10:30)
[2023-11-29 10:36] VITALS: BP 184/79; PULSE 56; TEMP 37.3; O2SAT 94
[2023-11-29 10:53] VITALS: BP 162/74; PULSE 58; TEMP 37.1; O2SAT 97
--- NOTE | 2023-11-29 11:07 | PC.NURSE ---
1018: Dr. Krueger notified of patients overall condition. New orders received. Pt. notified. Relays understanding.
--- NOTE | 2023-11-29 11:11 | PC.NURSE ---
0948: Medicated with Bumex 1mg ivp as ordered. 1000: Pt. up to bathroom. Voided 300cc clear yellow urine. 1015: Up to bathroom. Voids 300cc clear yellow urine. Returns to chair. Juice and water provided. Granddaughter at chairside.
--- NOTE | 2023-11-29 11:13 | PC.NURSE ---
1038: 1 unit PRBC initiated at this time. No new change in overall status. 1100: Report given to Dr. Robins for direct admission as ordered per. Dr. Krueger. 1108: Dr. Krueger gives t.o. to proceed with Vidaza infusion today and administer Platelets tomorrow. This RN will keep patient in [facility] until chemo administered. Pt. notified, relays understanding.
[2023-11-29 11:36] VITALS: BP 161/91; PULSE 68; TEMP 37.2; O2SAT 94
--- NOTE | 2023-11-29 11:37 | PC.NURSE ---
1136: Pt. appears less dyspneic. VSS. PRBC cont to infuse without s&s of adverse reaction. Denies needs. Lunch menu provided.
[2023-11-29 12:15] VITALS: BP 171/68; PULSE 75; TEMP 37.2; O2SAT 96
[2023-11-29] MEDS: DEXAMETHASONE SODIUM PHOSPHATE IV (12:38)
[2023-11-29] MEDS: SODIUM CHLORIDE 0.9% IV ×2 (12:38→12:48)
--- NOTE | 2023-11-29 12:42 | PC.NURSE ---
1215: PRBC infusion completed without s&s of transfusion reaction. VSS. Lunch tray ordered. 1240: Lunch provided. IV Decadron infusing at this time. Pt relays feeling less dyspneic. Total output of urine at this time 1600cc clear yellow urine.
[2023-11-29] MEDS: AZACITIDINE IV (12:48)
[2023-11-29] MEDS: 0.9 % SODIUM CHLORIDE 250 ML 30 ML IV (13:16)
[2023-11-29 13:42] VITALS: BP 178/81; PULSE 78; TEMP 37.2; O2SAT 95
--- NOTE | 2023-11-29 14:05 | PC.NURSE ---
1248: IV Vidaza initiated at this time. Pt. relays feeling better but very tired. 1330: Vidaza infusion completed without s&s of adverse reaction. VSS. Port flushed with saline and remains accessed. Assisted pt. up to bathroom to void. 1342: Pt transferred to M/S via w/c per this RN. Report given to RICHY Palma.
[2023-11-30] MEDS: DEXAMETHASONE SODIUM PHOSPHATE IV (09:15)
[2023-11-30] MEDS: SODIUM CHLORIDE 0.9% IV (09:15)
[2023-12-03 09:44] LABS: Hemoglobin 8.3 g/dL (12.0-16.0); Mean Corpuscular HGB Conc 33.2 g/dL (29.9-35.2); Mean Corpuscular Hemoglobin 31.1 pg (26.7-34.0); Mean Corpuscular Volume 93.6 fL (81.0-99.0); Red Blood Count 2.67 10^6/uL (4.20-5.40); Red Cell Distribution Width 19.5 % (11.0-15.0); White Blood Count 2.6 10^3/uL (4.0-11.0)
[2023-12-03 09:45] LABS: Platelet Count 5 10^3/uL (150-450)
[2023-12-03 09:51] VITALS: BP 85/52; PULSE 60; TEMP 37.6; O2SAT 97
[2023-12-03 09:57] LABS: Alanine Aminotransferase 35 U/L (14-59); Albumin Globulin Ratio 1.3; Albumin Level 3.1 g/dL (3.4-5.0); Alkaline Phosphatase 98 U/L (46-116); Anion Gap 8.7; Aspartate Amino Transferase 13 U/L (15-37); BUN Creatinine Ratio 54.1; Bilirubin Total 1.8 mg/dL (0.2-1.0); Carbon Dioxide 31.8 mmol/L (21.0-32.0); Chloride 103 mmol/L (98-107); Estimated GFR (African America >60 (>=60); Estimated GFR (Non-African Ame >60 (>=60); Globulin 2.3 g/dL; Glucose 146 mg/dL (74-106); Potassium 3.5 mmol/L (3.5-5.1); Sodium 140 mmol/L (136-145); Total Protein 5.4 g/dL (6.4-8.2)
[2023-12-03 10:23] LABS: Blast Absolute Manual 0.02; Lymphocytes Absolute Manual 0.31 10^3/uL (1.20-3.80); Monocytes Absolute Manual 0.15 10^3/uL (0.30-0.80)
[2023-12-03] MEDS: PALONOSETRON HCL 0.25 MG/5 ML VIAL IV (10:38)
[2023-12-03] MEDS: DEXAMETHASONE SODIUM PHOSPHATE IV (10:39)
[2023-12-03] MEDS: SODIUM CHLORIDE 0.9% IV ×2 (10:39→10:59)
[2023-12-03] MEDS: 0.9 % SODIUM CHLORIDE 250 ML 30 ML IV (10:40)
--- NOTE | 2023-12-03 10:41 | PC.NURSE ---
1015 complains of severe discomfort in rectal area, states from not having bm.assisted to bathroom, smear of bm in depends assisted to toilet. states she can't go, rectal exam large amount of stool noted at rectal opening with precious consistency. 1030 too fatigue to sit on toilet anymore, clean depends applied, using w/c to return to recliner. 1040 IV aloxi and dexamethasone initiated. Dr Krueger notified of constipation, vital signs etc. orders received. awaiting new orders for constipation.
[2023-12-03 10:48] VITALS: BP 111/75; PULSE 59; TEMP 36.2; O2SAT 96
[2023-12-03] MEDS: AZACITIDINE IV (10:59)
--- NOTE | 2023-12-03 11:32 | PC.NURSE ---
[address] Krueger, he felt she should go to the Emergency room to be evaluated. He was also speaking with Dr. Bill at [facility] and would get back to us. C[place] and patient informed of all this, theyprefer to stay local rather than going to [facility], but will go if neccessary. 1125 Dr Krueger called back stating he was working on getting her direct admitted to Dr. Tapia. patient and family kept update.
--- NOTE | 2023-12-03 12:16 | PC.NURSE ---
1215 iv fluids infused, tolerated without any problems, rt chest port saline locked. patient and garcía made aware of transfer to medical surgical floor
--- NOTE | 2023-12-03 12:48 | PC.NURSE ---
1230 transported to med surg room 218 report given to demetrius LOCKHART.
[2023-12-06 09:00] VITALS: BP 147/62; PULSE 68; TEMP 36.6; O2SAT 99
--- NOTE | 2023-12-06 09:13 | PC.NURSE ---
0900: Pt. to [facility] amb. for blood draw. Accompanied by granddaughter. Seated in recliner. Port accessed, see documentation. Blood obtained for ordered labs. Flushed with saline and Heparin flush. Pt. tolerated without c/o. Informed pt. this RN will notify if need for blood or platelet transfusion tomorrow. Pt. relays understanding. 0910: Port de-accessed. Trace bleeding to site. Pressure applied. Covered with dressing. Tolerated without c/o. D/c'd amb. to home.
[2023-12-06 09:19] LABS: Hematocrit 25.1 % (36.0-48.0); Hemoglobin 8.2 g/dL (12.0-16.0); Mean Corpuscular HGB Conc 32.7 g/dL (29.9-35.2); Mean Corpuscular Hemoglobin 29.5 pg (26.7-34.0); Mean Corpuscular Volume 90.3 fL (81.0-99.0); Mean Platelet Volume 10.4 fL (9.5-13.5); Red Blood Count 2.78 10^6/uL (4.20-5.40); Red Cell Distribution Width 20.4 % (11.0-15.0); White Blood Count 1.8 10^3/uL (4.0-11.0)
[2023-12-06 09:22] LABS: Platelet Count 17 10^3/uL (150-450)
[2023-12-06 09:30] LABS: Alanine Aminotransferase 35 U/L (14-59); Albumin Globulin Ratio 1.2; Albumin Level 2.7 g/dL (3.4-5.0); Alkaline Phosphatase 83 U/L (46-116); Anion Gap 10.4; Aspartate Amino Transferase 12 U/L (15-37); BUN Creatinine Ratio 46.9; Bilirubin Total 1.1 mg/dL (0.2-1.0); Calcium 9.1 mg/dL (8.5-10.1); Carbon Dioxide 28.8 mmol/L (21.0-32.0); Chloride 107 mmol/L (98-107); Estimated GFR (African America >60 (>=60); Estimated GFR (Non-African Ame >60 (>=60); Globulin 2.3 g/dL; Glucose 108 mg/dL (74-106); Potassium 4.2 mmol/L (3.5-5.1); Sodium 142 mmol/L (136-145)
[2023-12-06 09:52] LABS: Blast Absolute Manual 0.05; Lymphocytes Absolute Manual 0.41 10^3/uL (1.20-3.80); Segmented Neut Absolute Manual 1.22 10^3/uL (1.4-6.5)
[2023-12-07 09:10] VITALS: BP 128/65; PULSE 94; TEMP 37.3; O2SAT 95
[2023-12-07 09:19] VITALS: BP 128/65; PULSE 94; TEMP 37.3; O2SAT 95
[2023-12-07] MEDS: DIPHENHYDRAMINE HCL 25 MG CAPSULE PO (09:20)
[2023-12-07] MEDS: ACETAMINOPHEN 325 MG TABLET 650 MG PO (09:20)
[2023-12-07] MEDS: 0.9 % SODIUM CHLORIDE 250 ML 30 ML IV (09:20)
[2023-12-07 09:36] VITALS: BP 121/66; PULSE 56; TEMP 37.3; O2SAT 99
[2023-12-07 10:21] VITALS: BP 124/68; PULSE 63; TEMP 37.5; O2SAT 97
[2023-12-07 10:45] VITALS: BP 122/66; PULSE 66; TEMP 37.4; O2SAT 98
[2023-12-07] MEDS: HEPARIN SODIUM (PORCINE) PF LOCK FLUSH 500 UNIT/5 ML SYRINGE IV (10:45)
--- NOTE | 2023-12-07 11:07 | PC.NURSE ---
0910: Pt. to [facility] amb. using walker, accompanied by daughter. Weight obtained. Seated in recliner. VSS. Using sterile technique, right ant. chest port accessed without difficulty. See documentation. Pt. tolerated without c/o. 0920: Pre-transfusion meds provided. Given water and cookie. 0921: 1 unit psoralen treated platelets initiated at this time.
--- NOTE | 2023-12-07 11:10 | PC.NURSE ---
Tolerating platelets without s&s of transfusion reaction. VSS. Pt. denies needs.
--- NOTE | 2023-12-07 11:11 | PC.NURSE ---
1005: Assisted up to bathroom. Pt. incont. of small amount loose brown stool. Ros care provided. Assisted back to chair. Denies further needs or c/o.
--- NOTE | 2023-12-07 11:22 | PC.NURSE ---
Platelets cont. to infuse. Pt. without c/o. VSS.
--- NOTE | 2023-12-07 11:24 | PC.NURSE ---
1040: Platelet infusion completed at this time. Pt without adverse reaction. VSS. Port flushed with saline and heparin. Port de-accessed. No bleeding to site. Covered with sterile 2x2 prophylactically. 1045: Pt. d/c'd amb. to home with daughter.
[2023-12-11 09:40] LABS: Hemoglobin 7.2 g/dL (12.0-16.0); Mean Corpuscular HGB Conc 32.9 g/dL (29.9-35.2); Mean Corpuscular Hemoglobin 29.4 pg (26.7-34.0); Mean Corpuscular Volume 89.4 fL (81.0-99.0); Red Blood Count 2.45 10^6/uL (4.20-5.40); Red Cell Distribution Width 17.7 % (11.0-15.0)
[2023-12-11 09:51] LABS: Hematocrit 21.9 % (36.0-48.0); Platelet Count 4 10^3/uL (150-450); White Blood Count 0.5 10^3/uL (4.0-11.0)
[2023-12-11 09:55] LABS: Alanine Aminotransferase 29 U/L (14-59); Albumin Globulin Ratio 1.1; Albumin Level 2.8 g/dL (3.4-5.0); Alkaline Phosphatase 101 U/L (46-116); Anion Gap 9.5; Aspartate Amino Transferase 14 U/L (15-37); BUN Creatinine Ratio 19.6; Calcium 8.1 mg/dL (8.5-10.1); Carbon Dioxide 27.9 mmol/L (21.0-32.0); Chloride 108 mmol/L (98-107); Estimated GFR (African America >60 (>=60); Estimated GFR (Non-African Ame >60 (>=60); Globulin 2.5 g/dL; Glucose 121 mg/dL (74-106); Potassium 4.4 mmol/L (3.5-5.1); Sodium 141 mmol/L (136-145); Total Protein 5.3 g/dL (6.4-8.2)
[2023-12-11 10:19] LABS: Monocytes Absolute Manual 0.02 10^3/uL (0.30-0.80); Segmented Neut Absolute Manual 0.05 10^3/uL (1.4-6.5)
[2023-12-11 10:20] LABS: Anisocytosis 1+; Lymphocytes Absolute Manual 0.42 10^3/uL (1.20-3.80)
[2023-12-11] MEDS: DIPHENHYDRAMINE HCL 25 MG CAPSULE PO (11:10)
[2023-12-11] MEDS: ACETAMINOPHEN 325 MG TABLET 650 MG PO (11:11)
[2023-12-11 11:45] VITALS: BP 112/68; PULSE 59; TEMP 37.2; O2SAT 100
[2023-12-11 12:04] VITALS: BP 110/58; PULSE 55; TEMP 37.2
[2023-12-11 12:08] VITALS: BP 112/68; PULSE 59; TEMP 37.2; O2SAT 100
--- NOTE | 2023-12-11 12:12 | PC.NURSE ---
0900 arrival ambulatory to recliner. alert oriented port accessed using sterile technique, see documentation, excellent blood return, labs drawn.
--- NOTE | 2023-12-11 12:13 | PC.NURSE ---
[address] Krueger, patient aware of prbc's ordered fro today.
--- NOTE | 2023-12-11 12:25 | PC.NURSE ---
1145 Alert oriented, lungs clear posteriorly. heart tones strong and regular. no peripheral edema noted
--- NOTE | 2023-12-11 12:26 | PC.NURSE ---
1205 vital signs obtained, tolerating well, offers no complaints no s/s of reaction.
[2023-12-11 12:36] VITALS: BP 142/61; PULSE 59; TEMP 36.8; O2SAT 100
--- NOTE | 2023-12-11 12:40 | PC.NURSE ---
1240 tolerating prbc's without any s/s of reaction. eating lunch
[2023-12-11] MEDS: HEPARIN SODIUM (PORCINE) PF LOCK FLUSH 500 UNIT/5 ML SYRINGE IV (15:30)
[2023-12-12] VITALS (7 sets, daily range): BP systolic 118–130; BP diastolic 55–69; PULSE 53–66; TEMP 36.4–37.3; O2SAT 96–99
[2023-12-12] MEDS: DIPHENHYDRAMINE HCL 25 MG CAPSULE PO (10:50)
[2023-12-12] MEDS: ACETAMINOPHEN 325 MG TABLET 650 MG PO (10:50)
[2023-12-12] MEDS: 0.9 % SODIUM CHLORIDE 250 ML 20 ML IV (10:50)
--- NOTE | 2023-12-12 11:25 | PC.NURSE ---
1045: Pt to [facility] amb. using walker, accompanied by granddaughter. Weight obtained. Seated in recliner. VSS. Using sterile technique, see documentation. Pt. relays slight discomfort with port access. Flushes easily withh good blood return. Covered with large Opsite dressing. Pre-meds administered. 1059: First unit platelets initiated at this time.
--- NOTE | 2023-12-12 11:46 | PC.NURSE ---
1115: Tolerating transfusion without adverse reaction. VSS. Given peanut butter crackers and water.
--- NOTE | 2023-12-12 11:50 | PC.NURSE ---
Pt. without change. First unit platelets cont. to infuse. Pt. denies needs.
--- NOTE | 2023-12-12 12:31 | PC.NURSE ---
1220: First unit platelets completed at this time. Pt. without s&s of adverse reaction. 1228: Second unit psoralen treated platelets initiated. Lunch tray offered, pt. declines. VSS.
--- NOTE | 2023-12-12 12:48 | PC.NURSE ---
Pt. tolerating platelets without c/o. VSS.
[2023-12-12] MEDS: HEPARIN SODIUM (PORCINE) PF LOCK FLUSH 500 UNIT/5 ML SYRINGE IV (13:25)
--- NOTE | 2023-12-12 13:40 | PC.NURSE ---
1320: Second unit platelets completed at this time. No s&s of adverse reaction observed. VSS. Port flushed with saline and heparin flush. Port de-accessed. Trace bleeding to site. Covered with sterile 2x2. Pt. tolerated without c/o. 1330: Pt. d/c'd amb. to home with granddaughter.
[2023-12-13] MEDS: HEPARIN SODIUM (PORCINE) PF LOCK FLUSH 500 UNIT/5 ML SYRINGE IV (09:21)
[2023-12-13 09:24] VITALS: BP 136/72; PULSE 61; TEMP 36.9; O2SAT 98
--- NOTE | 2023-12-13 09:27 | PC.NURSE ---
904 Arrival ambulatory with walker to chair 1, accompanied by garcía.. alert and oriented, states she is feeling well today. 906 VS obtained. Rt chest port accessed see documentation. 922 released ambulatory with walker, accompanied by garcía
[2023-12-13 10:31] LABS: Hemoglobin 7.5 g/dL (12.0-16.0); Mean Corpuscular HGB Conc 32.8 g/dL (29.9-35.2); Mean Corpuscular Hemoglobin 29.4 pg (26.7-34.0); Mean Corpuscular Volume 89.8 fL (81.0-99.0); Mean Platelet Volume 9.7 fL (9.5-13.5); Red Blood Count 2.55 10^6/uL (4.20-5.40); Red Cell Distribution Width 16.6 % (11.0-15.0)
[2023-12-13 10:33] LABS: White Blood Count 0.5 10^3/uL (4.0-11.0)
[2023-12-13 10:34] LABS: Hematocrit 22.9 % (36.0-48.0); Platelet Count 15 10^3/uL (150-450)
[2023-12-13 10:35] LABS: Alanine Aminotransferase 29 U/L (14-59); Albumin Level 2.7 g/dL (3.4-5.0); Alkaline Phosphatase 114 U/L (46-116); Anion Gap 10.3; Aspartate Amino Transferase 12 U/L (15-37); BUN Creatinine Ratio 16.7; Bilirubin Direct 0.3 mg/dL (0.0-0.2); Bilirubin Total 1.1 mg/dL (0.2-1.0); Calcium 7.9 mg/dL (8.5-10.1); Carbon Dioxide 27.5 mmol/L (21.0-32.0); Chloride 108 mmol/L (98-107); Estimated GFR (African America >60 (>=60); Estimated GFR (Non-African Ame >60 (>=60); Globulin 2.6 g/dL; Glucose 117 mg/dL (74-106); Potassium 3.8 mmol/L (3.5-5.1); Sodium 142 mmol/L (136-145); Total Protein 5.3 g/dL (6.4-8.2)
[2023-12-14] MEDS: DIPHENHYDRAMINE HCL 25 MG CAPSULE PO (13:05)
[2023-12-14] MEDS: ACETAMINOPHEN 325 MG TABLET 650 MG PO (13:05)
[2023-12-14] MEDS: 0.9 % SODIUM CHLORIDE 250 ML 10 ML IV (13:05)
[2023-12-14 13:07] VITALS: BP 125/75; PULSE 69; TEMP 37.3; O2SAT 94
[2023-12-14 13:10] VITALS: BP 125/75; PULSE 69; TEMP 37.3; O2SAT 98
[2023-12-14 13:12] VITALS: BP 125/75; PULSE 69; TEMP 37.3; O2SAT 98
--- NOTE | 2023-12-14 13:16 | PC.NURSE ---
1255 Arrival ambulatory to chair 1, accompanied by daughter. Alert oriented. 1300 Rt chest port accessed see documentation. Respirations with ease, lungs clear to auscultation, heart tones strong regular with murmur noted.
--- NOTE | 2023-12-14 13:18 | PC.NURSE ---
1310 Platelets initiated at 120 ml hr. patient instructed on s/s of reaction ie chest/flank/back pain itching shortness of breath chills fever, instructed to notify staff, verbalize understanding.
[2023-12-14 13:24] VITALS: BP 131/46; PULSE 64; TEMP 37.5; O2SAT 96
[2023-12-14 13:26] VITALS: BP 110/63; PULSE 62; TEMP 36.9; O2SAT 99
--- NOTE | 2023-12-14 13:33 | PC.NURSE ---
1320 Tolerating platelets without any s/s of reaction. Rate increased to 250ml/hr.
--- NOTE | 2023-12-14 14:58 | PC.NURSE ---
normal saline flush completed. heparin lock solution deaccesed. noted small 2cm skin tear approx 2 cm beneath port cleansed arean noted small amount of bleeding from puncture site, cotton ball applied, followed by telfa dressing, over cotton balll and skin tear, instructed patient to removed once bleeding stops and leave open to air. verbalizes understanding. Released ambulatory
== END 2023-12-14 23:59 | disposition home or self-care (01) ==
LOC: INF 07:27
PROVIDERS: PCP Family Medicine; Visit Provider Internal Medicine Hematology & Oncology
DX: Z51.11 Encounter for antineoplastic chemotherapy (principal); C92.00 Acute myeloblastic leukemia, not having achieved remission; R11.2 Nausea with vomiting, unspecified; M79.604 Pain in right leg; R22.41 Localized swelling, mass and lump, right lower limb; I25.10 Atherosclerotic heart disease of native coronary artery without angina pectoris; E78.5 Hyperlipidemia, unspecified; I48.91 Unspecified atrial fibrillation; Z79.01 Long term (current) use of anticoagulants; E11.9 Type 2 diabetes mellitus without complications; D63.8 Anemia in other chronic diseases classified elsewhere; D69.6 Thrombocytopenia, unspecified
CPT/HCPCS: 36415; 36430; 36591; 80053; 81206; 82247; 82248; 83615; 84550; 85007; 85025; 85027; 86850; 86900; 86901; 88184; 88185; 96367; 96372; 96375; 96413; 99999; G0463; J1100; J2469; J9025; P9035; P9038

== ENCOUNTER 2023-12-21 18:49 | Inpatient (IN) | payer MEDICARE, SELFPAY ==
[2023-12-21] VITALS (20 sets, daily range): BP systolic 136–178; BP diastolic 46–77; PULSE 70–84; TEMP 36.7–36.8; O2SAT 93–97; BMI 25.2
--- NOTE | 2023-12-21 18:54 | XR_ITS ---
The [address] [address] Patient Name: DIANA HINOJOSA MRN: [id number] date: 1940 Sex: F Assigned Patient Location: ER Current Patient Location: ED.MAIN Accession/Order Number: [id number] Exam Date: 12/21/2023 19:19 Report Date: 12/21/2023 19:48 At the request of: GONZALEZ CUNNINGHAM Procedure: XR chest 1V Exam: Radiographs: XR chest 1V Reason for exam: weakness Comparison: Chest x-ray dated 10/15/2023 XR/XR chest 1V IMPRESSION: Small amount of atelectasis and/or infiltrate in the right lower lung. Pulmonary venous hypertension. Right IJ approach port with tip near the SVC/R junction. Sternotomy. CABG. Remainder the chest is unremarkable. Electronically authenticated by: KATIE MALONE Date: 12/21/2023 19:48
--- NOTE | 2023-12-21 18:54 | ECG_ITS ---
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
--- NOTE | 2023-12-21 18:56 | ED_ITS ---
HPI HPI - General Adult General Chief complaint: Weakness Stated complaint: Weakness Time Seen by Provider: 12/21/23 18:52 Source: patient Mode of arrival: ambulance Limitations: no limitations History of Present Illness HPI narrative: 83-year-old female history of A-fib on Eliquis, HTN, DM2, and hyperlipidemia and leukemia ( AML) . Patient reports feeling generally weak, she has been g etting blood transfusions. She reports subjective fever earlier today that improved with Tylenol from 101 back down to normal. Patient states her temperature has been running around 99. She had blood work done earlier today and states they are debating starting another round of chemotherapy, she does have a port. She reports being treated with chemo 4 times in the past. She denies any nausea vomiting or diarrhea. She denies any pain other than occasional back pain with movement. Was getting off the commode and became weak per EMS with daughter present and did not fall to the ground. EMS advised they got called for a lift assist but did not feel she would do well at home with cluster of symptoms and recommended transport for evaluation. Related Data Home Medications ?Medication ?Instructions ?Recorded ?Confirmed allopurinol 300 mg tablet 300 mg PO DAILY 10/11/23 12/21/23 posaconazole 100 mg tablet,delayed 300 mg PO Q24H 10/11/23 12/21/23 release ondansetron HCl 8 mg tablet 8 mg PO Q12H PRN nausea and 11/29/23 12/21/23 vomiting acyclovir 400 mg tablet 400 mg PO BID 12/22/23 12/22/23 furosemide 40 mg tablet 40 mg PO DAILY 12/22/23 12/22/23 isosorbide mononitrate 30 mg 30 mg PO DAILY 12/22/23 12/22/23 tablet,extended release 24 hr metformin 500 mg tablet 500 mg PO BID 12/22/23 12/22/23 prochlorperazine maleate 10 mg 10 mg PO Q8H PRN nausea and 12/22/23 12/22/23 tablet vomiting Previous Rx's ?Medication ?Instructions ?Recorded metoprolol tartrate 50 mg tablet 50 mg PO Q12H #60 tabs 10/13/23 magnesium oxide 400 mg (241.3 mg 400 mg PO TID #90 tabs 10/21/23 magnesium) tablet amino acids-protein hydrolysate 15 1 ea PO BID #2,880 mL 12/26/23 gram-100 kcal/30 mL oral liquid pkt (Pro-Stat Sugar Free) levofloxacin 750 mg tablet 750 mg PO DAILY 14 days #14 tabs 12/26/23 phytonadione (vitamin K1) 5 mg 2.5 mg (1/2 x 5 mg) PO Q48H #30 12/26/23 tablet tabs potassium chloride 10 mEq 30 meq (3 x 10 mEq) PO QID #360 12/26/23 tablet,extended release(part/cryst) tabs Allergies Allergy/AdvReac Type Severity Reaction Status Date / Time ORANGES AdvReac Uncoded 10/11/23 15:49 Opioid HPI Opioid Management Most Recent Opioid Data: Last Pain Scale 0 12/25/23 10:03 Last Pain Intensity 0 12/25/23 08:21 Last Pain Assessment 12/26/23 12:00 Last MAR Pain Assessment 12/28/23 13:00 Last ORT Total Score 0 12/21/23 21:35 Last ORT Risk Category Low Risk 12/21/23 21:35 Review of Systems ROS Constitutional Reports: fever (subjective); Denies: chills or change in weight Eyes Denies: change in vision or blurry vision Ears, nose, mouth, and throat Denies: throat pain or neck pain Cardiovascular Denies: chest pain Respiratory Denies: shortness of breath or cough Gastrointestinal Denies: abdominal pain or nausea Genitourinary Denies: painful urination or urinary frequency Musculoskeletal Denies: back pain Integumentary/Breast Denies: rash Neurological Denies: headache or numbness in extremities Hematologic/Lymphatic Denies: easy bruising PFSH PFS Medical History (Updated 12/22/23 @ 09:56 by Ayad Robins MD) Protein calorie malnutrition ?E46 - Unspecified protein-calorie malnutrition (ICD-10) Dehydration ?E86.0 - Dehydration (ICD-10) UTI (urinary tract infection) ?N39.0 - Urinary tract infection, site not specified (ICD-10) Leukocytosis ?D72.829 - Elevated white blood cell count, unspecified (ICD-10) Pleural effusion on right ?J90 - Pleural effusion, not elsewhere classified (ICD-10) Neutropenic fever ?D70.9 - Neutropenia, unspecified (ICD-10) ?R50.81 - Fever presenting with conditions classified elsewhere (ICD-10) Thrombocytopenia ?D69.6 - Thrombocytopenia, unspecified (ICD-10) Symptomatic anemia ?D64.9 - Anemia, unspecified (ICD-10) Acute leukemia ?C95.00 - Acute leukemia of unspecified cell type not having achieved rem ission (ICD-10) Malignancy ?C80.1 - Malignant (primary) neoplasm, unspecified (ICD-10) A-fib ?I48.91 - Unspecified atrial fibrillation (ICD-10) Hyperlipidemia ?E78.5 - Hyperlipidemia, unspecified (ICD-10) Surgical History S/P CABG x 4 ?Z95.1 - Presence of aortocoronary bypass graft (ICD-10) Family History (Updated 10/11/23 @ 18:08 by Bonny Jaramillo) Mother Family history of CHF (congestive heart failure) Social History (Updated 10/11/23 @ 18:09 by Bonny Jaramillo) Within the past year, how often did you have a drink containing alcohol: monthly or less Within the past year, how many standard drinks containing alcohol did you have on a typical day: 1 or 2 Within the past year, how often did you have six or more drinks on one occasion: never Total score: 0 Score interpretation: A score less than 3 is consistent with normal alcohol consumption. Smoking status: Never smoker Non-prescribed substance use: denies use Previous occupational history: retired Highest level of school completed/degree received: some college, no degree Are you now , , , , never or living with a partner: In a typical week, how many times do you talk on the telephone with family, friends, or neighbors: 3 or more times per week How often do you get together with friends or relatives: 3 or more times per week How often do you attend islam or baptist services: never Do you belong to any clubs or organizations such as islam groups unions, fraternal or athletic groups, or school groups: no Total score: 2 Score interpretation: A score of greater than or equal to 2 indicates the lowest level of social isolation. Little interest or pleasure in doing things: several days Feeling down, depressed, or hopeless: several days Feel stressed/tense/nervous/anxious/difficulty sleeping: to some extent Life stressor details: cancer diagnosis Do you think of yourself as: straight/heterosexual Gender Identity: female Exam Narrative Exam Narrative: Nurses notes and vital signs reviewed and patient is not hypoxic. General: The patient appears well but tired, Patient is resting comfortably on cart. Skin: Warm, dry, no pallor noted. no evidence of rash. Head: Normocephalic, atraumatic Neck: Supple, trachea mid-line, no tenderness, no lymphadenopathy Eye: Pupils are equal, round and reactive to light, EOMI Ears, Nose, Mouth, and Throat: TM are clear, normal light reflex, oral mucosa is moist, no posterior oropharynx erythema or hypertrophy, uvula is mid-line Cardiovascular: Regular Rate and Rhythm Respiratory: Patient is in no distress, no accessory muscle use, lungs are clear to auscultation, no wheezing, rales or rhonchi. Chest Wall: no tenderness Back: non-tender, no CVA tenderness Musculoskeletal: normal ROM, no tenderness, no swelling, various bruising to lower legs. GI: Normal bowel sounds, no tenderness to palpation, no masses appreciated. No rebound, guarding, or rigidity noted. Neurological: A&O x4 Psychiatric: Cooperative Constitutional Vital Signs, click to edit/add: Last Vital Signs Temp 97.6 F 12/26/23 05:36 Pulse 65 12/26/23 05:36 Resp 18 12/26/23 05:36 BP 168/76 H 12/26/23 05:36 Pulse Ox 94 L 12/26/23 11:36 O2 Del Method Room Air 12/26/23 11:36 O2 Flow Rate 2 12/22/23 09:00 Course Course Hospital Course: Patient admitted with fever, neutropenic sepsis. Found to have acute UTI secondary to Enterococcus. Chest x-ray concerning for pneumonia but she really did not have significant cough. Infectious etiology still most likely of the acute urinary tract infection. She required transfusion of platelets and 2 units of PRBCs. Her hemoglobin is stable today. Her platelet count is a little bit low for her. Will hold off on further transfusions at this time, will likely need them in the next couple days though. Will monitor CBCs and Chem-8 at rehab. Patient is an excellent rehabilitation candidate. She is highly motivated for returning to home. Otherwise she is stable for discharge to rehab today. Vital Signs Vital signs: Vital Signs Temperature 98.0 F 12/21/23 18:51 Pulse Rate 84 12/21/23 18:51 Respiratory Rate 17 12/21/23 18:51 Blood Pressure 165/49 H 12/21/23 18:51 Pulse Oximetry 95 12/21/23 18:51 Oxygen Delivery Method Room Air 12/21/23 18:51 Temperature 97.6 F 12/26/23 05:36 Pulse Rate 65 12/26/23 05:36 Respiratory Rate 18 12/26/23 05:36 Blood Pressure 168/76 H 12/26/23 05:36 Pulse Oximetry 94 L 12/26/23 11:36 Oxygen Delivery Method Room Air 12/26/23 11:36 Oxygen Delivery Flow Rate 2 12/22/23 09:00 Medical Decision Making MDM Narrative Medical decision making narrative: Patient presents with known recurrent history of anemia, weakness and generalized fatigue, concern with patient reporting subjective fever. Will obtain blood cultures, vital signs currently stable. Patient appears neutropenic, subjective fever at home, no objective fever here, vital signs are stable. Chest x-ray shows possible right lower lobe infiltrate. Will consult oncologistSpoke with Dr. Krueger discussed patient's labs, presentation with generalized weakness x-ray concerning for right lower lobe infiltrate. Patient reports fever at home. Daughter states she has been on antibiotics over the past few weeks. Patient agreeable to admission stay. Dr. Han recommends either cefepime or Zosyn, we do not have cefepime as an order and the patient was given Zosyn 4.5 , Vital signs are stable. Patient typically admitted by her PCP. I did page Dr. Tapia but he has not on-call. [facility] was [facility] hospital[facility] José Manuel Saleem for coverage, and he reports that Dr. Tapia typically Cares for his own patients. Patient will be admitted MedSurg and inpatient pending further evaluation.Blood cultures, urine culture pending.chest Port appears clear without evidence of infection on exam. Medical Records Medical records reviewed: Yes I reviewed the patient's medical records Medical records narrative: last oncology admission note on file Lab Data Lab results reviewed: Yes I reviewed the patient's lab results Labs: Lab Results 12/21/23 12/21/23 12/21/23 Range/Units 19:07 19:16 20:45 WBC 0.7 L* (4.0-11.0) 10^3/uL RBC 2.49 L (4.20-5.40) 10^6/uL Hgb 7.2 L (12.0-16.0) g/dL Hct 20.8 L* (36.0-48.0) % MCV 83.5 (81.0-99.0) fL MCH 28.9 (26.7-34.0) pg MCHC 34.6 (29.9-35.2) g/dL RDW 17.2 H (11.0-15.0) % Plt Count 18 L* (150-450) 10^3/uL MPV 10.2 (9.5-13.5) fL Seg Neuts % (Manual) 32.0 Lymphocytes % (Manual) 40.0 (20.5-60.0) % Atypical Lymphs % (Man) 6.0 % Monocytes % (Manual) 6.0 (1.7-12.0) % Eosinophils % (Manual) 0.0 L (0.9-7.0) % Basophils % (Manual) 0.0 L (0.2-2.0) % Myelocytes % 4.0 Blast Cells % (Manual) 12.0 Neutrophils # (Manual) 0.22 L (1.4-6.5) 10^3/uL Lymphocytes # (Manual) 0.28 L (1.20-3.80) 10^3/uL Abs Atypical Lymphs Man 0.04 Monocytes # (Manual) 0.04 L (0.30-0.80) 10^3/uL Eosinophils # (Manual) 0.00 (0.00-0.70) 10^3/uL Basophils # (Manual) 0.00 (0.00-0.10) 10^3/uL Myelocytes # 0.02 Blast Cells # 0.08 Hypochromasia 3+ Anisocytosis 4+ Microcytosis 3+ PT 14.0 H (9.0-11.6) sec INR 1.36 Sodium 139 (136-145) mmol/L Potassium 3.7 (3.5-5.1) mmol/L Chloride 106 (98-107) mmol/L Carbon Dioxide 26.1 (21.0-32.0) mmol/L Anion Gap 10.6 BUN 15.0 (7.0-18.0) mg/dL Creatinine 0.63 (0.55-1.02) mg/dL Est GFR ( Amer) >60 (>=60) Est GFR (Non-Af Amer) >60 (>=60) BUN/Creatinine Ratio 23.8 Glucose 121 H (74-106) mg/dL Lactate 2.0 (0.4-2.0) mmol/L Calcium 8.3 L (8.5-10.1) mg/dL Magnesium 1.7 L (1.8-2.4) mg/dL Total Bilirubin 1.2 H (0.2-1.0) mg/dL AST 13 L (15-37) U/L ALT 17 (14-59) U/L Alkaline Phosphatase 107 (46-116) U/L Troponin I High Sens 19.4 (4.0-51.3) pg/mL NT-Pro-B Natriuret Pep 5504.0 H* (<=1800.0) pg/mL Total Protein 5.4 L (6.4-8.2) g/dL Albumin 2.5 L (3.4-5.0) g/dL Globulin 2.9 g/dL Albumin/Globulin Ratio 0.9 Procalcitonin 0.21 (0.00-0.50) ng/mL Urine Color Yellow (YELLOW) Urine Clarity Clear (CLEAR) Urine pH 6.0 (5.0-9.0) Ur Specific [place] 1.025 (1.005-1.025) Urine Protein 100 A (NEG/TRACE) mg/dL Urine Glucose (UA) Negative (NEGATIVE) mg/dL Urine Ketones Negative (NEGATIVE) mg/dL Urine Occult Blood Trace-i (NEGATIVE) Urine Nitrite Negative (NEGATIVE) Urine Bilirubin Negative (NEGATIVE) Urine Urobilinogen 1.0 (0.2-1.0) EU/dL Ur Leukocyte Esterase Negative (NEGATIVE) Urine RBC 2-5 A (0-2) #/HPF Urine WBC 2-5 A (NONE SEEN) #/HPF Ur Squamous Epith Cells Moderate A (NONE/RARE) #/LPF Urine Crystals Seen A (None Seen) #/HPF Amorphous Sediment Moderate Urine Bacteria None seen (NONE SEEN) #/HPF Urine Casts Seen A (NONE SEEN) #/LPF Hyaline Casts Few WBC Casts Rare Urine Mucus Large A (NONE SEEN) Ur Culture Indicated? Already ordered Blood Type B Positive Antibody Screen Negative Crossmatch See Detail 12/22/23 Range/Units 03:58 WBC 0.5 L* (4.0-11.0) 10^3/uL RBC 2.22 L (4.20-5.40) 10^6/uL Hgb 6.2 L* (12.0-16.0) g/dL Hct 18.9 L* (36.0-48.0) % MCV 85.1 (81.0-99.0) fL MCH 27.9 (26.7-34.0) pg MCHC 32.8 (29.9-35.2) g/dL RDW 17.2 H (11.0-15.0) % Plt Count 14 L* (150-450) 10^3/uL MPV 10.8 (9.5-13.5) fL Seg Neuts % (Manual) Lymphocytes % (Manual) (20.5-60.0) % Atypical Lymphs % (Man) % Monocytes % (Manual) (1.7-12.0) % Eosinophils % (Manual) (0.9-7.0) % Basophils % (Manual) (0.2-2.0) % Myelocytes % Blast Cells % (Manual) Neutrophils # (Manual) (1.4-6.5) 10^3/uL Lymphocytes # (Manual) (1.20-3.80) 10^3/uL Abs Atypical Lymphs Man Monocytes # (Manual) (0.30-0.80) 10^3/uL Eosinophils # (Manual) (0.00-0.70) 10^3/uL Basophils # (Manual) (0.00-0.10) 10^3/uL Myelocytes # Blast Cells # Hypochromasia Anisocytosis Microcytosis PT (9.0-11.6) sec INR Sodium 140 (136-145) mmol/L Potassium 3.5 (3.5-5.1) mmol/L Chloride 108 H (98-107) mmol/L Carbon Dioxide 24.8 (21.0-32.0) mmol/L Anion Gap 10.7 BUN 12.0 (7.0-18.0) mg/dL Creatinine 0.42 L (0.55-1.02) mg/dL Est GFR ( Amer) >60 (>=60) Est GFR (Non-Af Amer) >60 (>=60) BUN/Creatinine Ratio 28.6 Glucose 85 (74-106) mg/dL Lactate (0.4-2.0) mmol/L Calcium 8.0 L (8.5-10.1) mg/dL Magnesium (1.8-2.4) mg/dL Total Bilirubin 0.9 (0.2-1.0) mg/dL AST 15 (15-37) U/L ALT 16 (14-59) U/L Alkaline Phosphatase 90 (46-116) U/L Troponin I High Sens (4.0-51.3) pg/mL NT-Pro-B Natriuret Pep (<=1800.0) pg/mL Total Protein 4.7 L (6.4-8.2) g/dL Albumin 2.1 L (3.4-5.0) g/dL Globulin 2.6 g/dL Albumin/Globulin Ratio 0.8 Procalcitonin (0.00-0.50) ng/mL Urine Color (YELLOW) Urine Clarity (CLEAR) Urine pH (5.0-9.0) Ur Specific [place] (1.005-1.025) Urine Protein (NEG/TRACE) mg/dL Urine Glucose (UA) (NEGATIVE) mg/dL Urine Ketones (NEGATIVE) mg/dL Urine Occult Blood (NEGATIVE) Urine Nitrite (NEGATIVE) Urine Bilirubin (NEGATIVE) Urine Urobilinogen (0.2-1.0) EU/dL Ur Leukocyte Esterase (NEGATIVE) Urine RBC (0-2) #/HPF Urine WBC (NONE SEEN) #/HPF Ur Squamous Epith Cells (NONE/RARE) #/LPF Urine Crystals (None Seen) #/HPF Amorphous Sediment Urine Bacteria (NONE SEEN) #/HPF Urine Casts (NONE SEEN) #/LPF Hyaline Casts WBC Casts Urine Mucus (NONE SEEN) Ur Culture Indicated? Blood Type Antibody Screen Crossmatch Imaging Data Chest x-ray: Radiologist's impression: ITS Impressions Chest X-Ray 12/21/23 18:54 IMPRESSION: Small amount of atelectasis and/or infiltrate in the right lower lung. Pulmonary venous hypertension. Right IJ approach port with tip near the SVC/R junction. Sternotomy. CABG. Remainder the chest is unremarkable. Electronically authenticated by: KATIE MALONE Date: 12/21/2023 19:48 Discharge Plan Discharge Chief Complaint: Weakness Clinical Impression: Neutropenia with fever, Pneumonia Patient Disposition: Admitted As Inpatient Time of Disposition Decision: 20:52 Condition: Serious Discharge Date/Time: 12/21/23 21:26
--- OUTSIDE RECORDS SUMMARY | 2023-12-21 19:14 | XMS_ITS | CCD ---
Author Organization [facility] Care Team Providers Care At Risk Paraprofessional Name Role Phone PEYTON Villanueva Attending Provider [phone] DARBY HAMLIN Primary Care Unavailable BIBI, DR MATTHEWS Attending Unavailable MISC, DR BATISTA Consulting Unavailable BIBI, DR MATTHEWS Admitting Unavailable BOUBACAR DARBYSOFIA MITTAL Primary Care Unavailable MOUKARBEL, DR ELLIOTT Consulting Unavailable MOUKARBEL, DR ELLIOTT Admitting Unavailable MOUKARBEL, DR ELLIOTT Attending Unavailable DARBY HAMLIN Primary Care Unavailable BARAZI, VIVIANE Admitting Unavailable BARAZI, VIVIANE Attending Unavailable BARAZI, VIVIANE Consulting Unavailable BOUBACAR DARBYSOFIA MITTAL Primary Care Unavailable BARAZI, VIVIANE Admitting Unavailable BARAZI, VIVIANE Attending Unavailable BARBRADIVIVIANE Consulting Unavailable REDDING ., DR ANA ROSA Arnold Primary Care Unavailable BARAZI, VIVIANE Attending Unavailable BARAZIVIVIANE Consulting Unavailable BARAZI, VIVIANE Admitting Unavailable HOY ., DR VALADEZ Admitting Unavailable HOY ., DR VALADEZ Attending Unavailable HOY ., DR VALADEZ Consulting Unavailable DARBY HAMLIN Primary Care Unavailable BLACK, DR BYRON Pyle Consulting Unavailable GRECHNY ., EDWIN WHEAT Consulting Unavailevie REDDING ., DR ANA ROSA Arnold Primary Care Unavailable BARAZI, VIVIANE Attending Unavailable BARAZI, VIVIANE Admitting Unavailable MISC, DR BATISTA Admitting Unavailable REDDING ., DR ANA ROSA Arnold Primary Care Unavailable MISC, DR BATISTA Attending Unavailable MISC, DR BATISTA Consulting Unavailable Darby Hamlin. Primary Care Physician [phone] LEXI PURCELL Attending Unavailable MOUKARBLEXI FLORES Attending Unavailable BARAZIVIVIANE Attending Unavailable SATNAM ZAPATA Attending Unavailable LEXI PURCELL Attending Unavailable VIVIANE ORTEZ Attending Unavailable Ana Rosa Redding MD Primary Care Provider [phone] Ana Rosa Redding MD Primary Care Provider MD Darby Hamlin Attending Unavailable MD Darby Hamlin Attending Unavailable MD Darby Hamlin Attending Unavailable MD Darby Hamlin Attending Unavailable MD Darby Hamlin Attending Unavailable MD Darby Hamlin Attending Unavailable MD Darby Hamlin Attending Unavailable MD Darby Hamlin Attending Unavailable MD Darby Hamlin Admitting Unavailable MD Darby Hamlin Attending Unavailable MD Darby Hamlin Admitting Unavailable MD Darby Hamlin Attending Unavailable Jose, MEDICAL ADMINISTRATIVE TECHNICIAN Aurea L Admitting Unavailable Jose, MEDICAL ADMINISTRATIVE TECHNICIAN Aurea L Attending Unavailable MD Darby Hamlin Admitting Unavailable NON STAFF Admitting Unavailable NON STAFF Attending Unavailable Aneta Krueger Attending Unavailable Aneta Krueger Admitting Unavailable NON STAFF Attending Provider Unavailable MD Aneta Krueger Attending Provider LAMBERTO ECHAVARRIA Attending Unavailable LAMBERTO ECHAVARRIA Admitting Unavailable ANA ROSA REDDING Primary Care Unavailable RORY WEST Referring Unavailable ANA BILL Attending Unavailable ANA ROSA REDDING Primary Care Unavailable ANA BILL Attending Unavailable ANA ROSA REDDING Primary [facility] [place] Unavailable SHAZIA SALEH Referring Unavailable Allergies Allergy Classification Reported Allergen(s) Allergy Type Date of Onset Reaction(s) Facility (1 source) lipotropic agents Drug Allergy 3 Repository (4 sources) Ascorbic Acid; Translations: [ascorbic acid] Drug Allergy Unknown (qualifier value) [facility] (5 sources) Spironolactone; Translations: [spironolactone ] Drug Allergy 3 Eruption of skin (disorder) [facility] (1 source) Angiotensin Converting Enzyme (Sal) Inhibitors; Translations: [SAL INHIBITORS] Propensity to adverse reactions to drug (disorder) 2 [facility] Repository (1 source) Ascorbic Acid; Translations: [ASCORBIC ACID (VITAMIN C)] Drug Allergy 3 [facility] Repository (1 source) [place] bioflavonoids; Translations: [CITRUS BIOFLAVONOIDS] Propensity to adverse reactions to drug (disorder) 3 [facility] Repository (1 source) Losartan; Translations: [LOSARTAN] Drug Allergy 2 [facility] Repository (1 source) CITRUS AND DERIVATIVES; Translations: [CITRUS AND DERIVATIVES] Propensity to adverse reactions to drug (disorder) 2 [facility] Repository (14 sources) [place] fruit; Translations: [CITRUS FRUITS] Food Allergy 2 Intolerance [facility] Medications Current Medications Medication Drug Class(es) Dates Sig (Normalized) Sig (Original) acyclovir 400 mg oral tablet (7 sources) Herpesvirus Nucleoside Analog DNA Polymerase Inhibitor, Herpes Simplex Virus Nucleoside Analog DNA Polymerase Inhibitor, Herpes Zoster Virus Nucleoside Analog DNA Polymerase Inhibitor Start: 09-28-2023 take 1 tablet by mouth twice daily acyclovir (ZOVIRAX) 400 mg tablet Take 1 tablet by mouth two times a day. 60 tablet 0 09/28/2023 Active Comment on above: Take 1 tablet by whitley th two times a day. allopurinol 300 mg oral tablet (3 sources) Xanthine Oxidase Inhibitor Start: 09-30-2023 End: 10-30-2023 take 1 tablet by mouth once daily allopurinol (ZYLOPRIM) 300 mg tablet Take 1 tablet by mouth once daily. 30 tablet 0 09/30/2023 10/30/2023 Active Comment on above: Take 1 tablet by whitley th once daily. ALPRAZolam 0.5 mg oral tablet (13 sources) Benzodiazepine ALPRAZolam (XANAX) 0.5 mg tablet Take 0.5 mg by mouth as needed. 0 Active Comment on above: Take 0.5 mg by mouth as needed. amiodarone hydrochloride 200 mg oral tablet (2 [...] Refills(s) 0 Start Date: 12/12/22 Status: Ordered imatinib 400 mg oral tablet (6 sources) Kinase Inhibitor Start: 10-18-2023 End: 01-16-2024 take 1 tablet by mouth once daily at mealtime imatinib (GLEEVEC) 400 mg tablet Take 1 tablet (400 mg) by mouth once daily with food and water. 30 tablet 2 10/18/2023 Active Comment on above: Take 1 tablet (400 m g) by mouth once daily. Take 1 tablet (400 m g) by mouth once daily with food and water. levoFLOXacin 500 mg oral tablet (7 sources) Quinolone Antimicrobial Start: 09-29-2023 take 1 tablet by mouth once daily in the morning levoFLOXacin (LEVAQUIN) 500 mg tablet Take 1 tablet by mouth daily at 6 am. 30 tablet 0 09/29/2023 Active Comment on above: Take 1 tablet by whitley daily at 6 am. metFORMIN hydrochloride 500 mg oral tablet (2 sources) Biguanide Start: 11-14-2022 take 1 tablet by mouth twice daily metformin 500 mg Tab 500 mg = 1 tab(s), Oral, BID, # 180 tab(s), Refills(s) 0 Start Date: 11/14/22 Status: Ordered metoprolol tartrate 25 mg oral tablet (9 sources) beta-Adrenergic Alicia Start: 09-29-2023 take 1 [...] on above: Take 1 tablet by whitley every 12 hours. posaconazole 100 mg delayed release oral tablet (12 sources) Azole Antifungal Start: 4 take 3 tablets by mouth once daily posaconazole DR (NOXAFIL) 100 mg tablet Take 3 tablets by mouth once daily. 90 tablet 11 09/20/2023 Active Comment on above: Take 3 tablets by mo [facility] once daily. potassium chloride 20 meq oral tablet (2 sources) Start: 3 Potassium Chloride (Uca-Yaxz-Odb M20) 20 mEq oral tablet, extended release 20 mEq = 1 tab(s), Oral, once daily or twice daily when taking an additional furosemide, Refills(s) 0 Start Date: 12/12/22 Status: Ordered venetoclax 100 mg oral tablet (13 sources) BCL-2 Inhibitor Start: 4 End: 4 venetoclax (VENCLEXTA) 100 mg tablet Take 1 [...] 28 day cycle - or as directed. Completed/Discontinued Medications Medication Drug Class(es) Dates Sig (Normalized) Sig (Original) bisoprolol fumarate 10 mg / hydroCHLOROthiazide 6.25 mg oral tablet (6 sources) Thiazide Diuretic, beta-Adrenergic Alicia take 1 tablet by mouth once daily bisoprolol-hydro chlorothiazide 10-6.25 mg per tablet Take 1 tablet by mouth once daily. 0 Suspended Comment on above: Take 1 tablet by whitley th once daily. Naproxen (6 sources) Nonsteroidal Anti-inflammatory Drug NAPROXEN SODIUM (ALEVE ORAL) Take 1 tablet by mouth as needed. 0 Suspended Comment on above: Take 1 tablet by whitley th as needed. Problems Active Problems Problem Classification Problem Date Documented Date Episodic/Chronic Anxiety disorders (13 sources) Anxiety; Translations: [Anxiety disorder, unspecified] Onset: 07-03-2012 07-03-2012 Chronic Cardiac dysrhythmias (20 sources) Unspecified atrial fibrillation; Translations: [Paroxysmal atrial fibrillation] Onset: 06-20-2022 Chronic Chronic kidney disease (2 sources) Chronic kidney disease stage 3A 12-13-2022 Chronic Congestive heart failure; nonhypertensive (3 sources) Acute on chronic diastolic (congestive) heart failure; Translations: [ACUTE ON CHRONIC DIASTOLIC CHF] Onset: 11-01-2022 Chronic Coronary atherosclerosis and other heart disease (20 sources) Atherosclerotic heart disease of [place] coronary artery without angina pectoris; Translations: [Coronary atherosclerosis due to lipid rich plaque] Onset: 06-20-2022 Chronic Coronary atherosclerosis and other heart disease (3 sources) Presence of aortocoronary bypass graft; Translations: [PRESENCE AORTOCORONARY BYPASS GRAFT] Onset: 10-27-2022 Episodic Deficiency and other anemia (12 sources) Pancytopenia; Translations: [Other pancytopenia] Onset: 09-20-2023 09-26-2023 Chronic Deficiency and other anemia (1 source) Other pancytopenia; Translations: [Pancytopenia (HCC)] Onset: 09-29-2023 Chronic Diabetes mellitus with complications (3 sources) Type II diabetes mellitus uncontrolled 12-12-2022 Chronic Diabetes mellitus without complication (13 sources) Type 2 diabetes mellitus without complication; Translations: [Type 2 diabetes mellitus without complications] Onset: 09-20-2023 09-20-2023 Chronic Diabetes mellitus without complication (4 sources) Hyperglycemia, unspecified; Translations: [HYPERGLYCEMIA UNSPECIFIED] Onset: 11-08-2022 Episodic Diseases of white blood cells (13 sources) Leukocytosis; Translations: [Elevated white blood cell count, unspecified] Onset: 09-20-2023 09-20-2023 Chronic Disorders of lipid metabolism (5 sources) Hypercholesterolemia; Translations: [Mixed hyperlipidemia] Onset: 11-01-2022 11-14-2022 Chronic Essential hypertension (17 sources) Essential (primary) hypertension; Translations: [Hypertensive disorder] Onset: 07-03-2012 Chronic Fever of unknown origin (9 sources) Fever; Translations: [Fever, unspecified] 09-26-2023 Episodic Fluid and electrolyte disorders (2 sources) Hypo-osmolality and hyponatremia; Translations: [Hypokalemia] Onset: 11-13-2022 Episodic Heart valve disorders (1 source) Rheumatic disorders of both mitral and tricuspid valves; Translations: [RHEUMATIC D/O MITRAL TRICUSPID VALV] Onset: 10-27-2022 Chronic Immunity disorders (16 sources) Patient immunocompromised; Translations: [Immunodeficiency, unspecified] Onset: 09-20-2023 09-20-2023 Chronic Leukemias (19 sources) Acute myeloid leukemia, disease; 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, not having achieved remission] Onset: 09-20-2023 09-20-2023 Chronic Maintenance chemotherapy; radiotherapy (9 sources) Patient encounter status; Translations: [Encounter for antineoplastic chemotherapy] Onset: 09-24-2023 09-24-2023 Chronic Melanomas of skin (20 sources) Malignant melanoma of back; Translations: [Malignant melanoma of other part of trunk] Onset: 06-10-2012 07-03-2012 Chronic Melanomas of skin (3 sources) History of malignant melanoma of the skin 11-14-2022 Episodic Nutritional deficiencies (9 sources) Malnutrition (calorie); Translations: [Moderate protein-calorie malnutrition] Onset: 09-21-2023 09-24-2023 Chronic Other acquired deformities (2 sources) Acquired deformity of chest and rib; Translations: [Acquired deformity of chest and rib] Onset: 03-02-2023 Episodic Other aftercare (1 source) intermediate manager (current) use of aspirin; Translations: [RETIREMENT 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] Onset: 11-13-2022 Episodic Other aftercare (1 source) intermediate manager (current) use of anticoagulants; Translations: [ASSISTANT CLINICAL NURSE MANAGER CURRNT USE ANTICOAGULANTS] Onset: 11-13-2022 Episodic Other aftercare (1 source) Other mcc (current) drug therapy; Translations: [OTH ASSISTANT CLINICAL NURSE MANAGER CURRENT DRUG THERAPY] Onset: 11-13-2022 Episodic Other aftercare (9 sources) Post-discharge follow-up; Translations: [Encounter for follow-up examination after completed treatment for conditions other than malignant neoplasm] Onset: 09-26-2023 09-26-2023 Episodic Other diseases of veins and lymphatics (3 sources) Stasis dermatitis 12-12-2022 Episodic Other hematologic conditions (4 sources) Cytopenia; Translations: [Other specified diseases of blood and blood-forming organs] Onset: 09-20-2023 09-20-2023 Chronic Other hematologic conditions (9 sources) Bone marrow hyperplasia; Translations: [Other specified diseases of blood and blood-forming organs] Onset: 09-26-2023 09-26-2023 Chronic Other skin disorders (5 sources) Rash and other nonspecific skin eruption; Translations: [RASH OTH NONSPECIFIC SKIN ERUPTION] Onset: 09-19-2022 Episodic Other skin disorders (3 sources) Inflammatory dermatosis 11-14-2022 Episodic Residual codes; unclassified (2 sources) Localized edema; Translations: [Localized edema] Onset: 03-02-2023 Episodic Spondylosis; intervertebral disc disorders; other back [...] Translations: [SHORTNESS OF BREATH] Onset: 03-31-2022 Episodic Residual codes; unclassified (13 sources) At risk of disease; Translations: [Other specified personal risk factors, not elsewhere classified] Onset: 09-20-2023 09-20-2023 Episodic Results Test Name Value Interpretation Reference Range Facil ity CNPNon 11-22-2023 CNPN Normal [facility] [place] 11-20-2023 L Specimen: [id number] Received: 11/20/23 Status: RADHA Ni Num: [id number] Spec Type: Impression Subm Dr: Aneta Krueger MD Tissues: PATHPER Procedures: PATHREVIEW Age/ Patient Sex Location Account Attending Physician Myrna Shen 83/F [place] [id number] Aneta Krueger MD SPEC NUM: [id number] RECD: 11/20/23 STATUS: RADHA NI NUM: [id number] SYBIL: 11/20/[address]: Aneta Krueger MD ENTERED: 11/20/23 [facility] DR: MelodyLab SPEC TYPE: Impression DEPT: TERRA Grace ENTERED BY: [id number] RECV BY: [id number] ORDERED: PATHREVIEW ORDERED: PATHREVIEW Pathologist Review Thrombocytopenia Is Noted. No Significant Increase In Schistocytes Or Spherocytes Is Identified. Differential Diagnosis Includes Peripheral Etiology (e.g. ITP, Drug-induced) Vs. Bone Marrow Disorder. Clinical Correlation Is Required. Pancytopenia is noted. Bone marrow pathology should be ruled out. [id number] Specimen: [id number] Received: 11/20/23 Status: RADHA Villaloboszachary Num: [id number] Spec Type: Impression Subm Dr: Aneta Krueger MD Tissues: PATHPER Procedures: PATHREVIEW Patient: Myrna Shen [id number] (Continued) Signed (signature on file) Jesus Guerrier MD 11/20/23 1548 Normal [facility] Consultation Noteon 11-19-19 Consultation Note [id number]#1.00TIFF Normal [facility] Consultation Noteon 10-31-19 Consultation Note [id number]#1.00TIFF Normal [facility] Consultation Note [id number]#1.00TIFF Normal [facility] CNPNon 10-29-2023 CNPN Normal [facility] Consultation Noteon 10-29-19 Consultation Note [id number]#1.00TIFF Normal [place] 10-29-2023 RAD - [facility] [id number]#1.00TIFF Normal [facility] ED Note-Physicianon 10-15-19 ED Note-Physician [id number]#1.00TIFF [facility] Consultation Noteon 10-10-19 Consultation Note [id number]#1.00TIFF Normal [place] 10-10-2023 RAD - MISC [id number]#1.00TIFF [facility] Outside [facility] Correspo ndenceon 10-09-[address] [facility] Correspondence [id number]#1.00TIFF [facility] 10-01-19 [facility] Case Information Case Priority: None Programs: -- Referral Source: Railroad Dispatcher Referral Reason: Care coordination Case Type: Transition Care Management Risk Score: -- Case Status: Enrolled (October 01, 2023) Date Assigned: October 01, 2023 Assigned By: Yordy James Date Enrolled: October 01, 2023 Assigned Primary Personnel: Yordy James Assigned Secondary Personnel: -- Case Physician: Darby Hamlin MD 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 Dehydration Hx of [...] this time, has F/U with Dr. Tate [facility] 10/01 Did you understand your discharge [...] not available. Patient was d/c from [facility] on 09/29/23 with DX of leukemia. Patient [...] caught sooner. CN did offer appointment with INTERIOR MECHANIC and patient declined. CN explained TCM program ad gave CN contact information. Patient states she will call if needs arise. Patient denies any further questions or concerns at this time. NO D/C SUMMARY AVAILABLE, ABOVE INFORMATION OBTAINED FROM PATIENT. Communication Events Date: October 01, 2023 Method: Phone call Type: Outbound Duration (min): 11 Outcome: Case discussion Contact Type: mail service coordinator Contact Name: Yordy James Notes: TCM#1- see tcm note. Created By: Yordy James Normal [facility] CBC W Auto Differential pane l (Bld)on 09-29-2023 Anisocytosis Ql (Bld) Present Normal [facility] Comment on above: Order Comment: Speci men Type: BLOOD SPECIMENOrdering Facility: [facility] Address: [address] [place] [address] Performed By: #### 5 7021-8 ####[facility] LABCLIA [id number] [place] [address] [place] Basophils (Bld) [#/Vol] 0.00 10*3/uL Normal <0.11 [facility] Comment on above: Order Comment: Speci men Type: BLOOD SPECIMENOrdering Facility: [facility] Address: [address] [place] [address] Performed By: #### 5 7021-8 ####[facility] LABCLIA [id number] [place] [address] [place] Basophils/100 WBC (Bld) 0.0 % Normal [facility] Comment on above: Order Comment: Speci men Type: BLOOD SPECIMENOrdering Facility: [facility] Address: [address] [place] [address] Performed By: #### 5 7021-8 ####[facility] LABCLIA [id number] [place] [address] [place] BLAST% 9.0 % High <=0.0 [facility] Comment on above: Order Comment: Speci men Type: BLOOD SPECIMENOrdering Facility: [facility] Address: [address] [place] [address] Performed By: #### 5 7021-8 ####[facility] LABCLIA [id number] [place] [address] [place] Dacrocytes LM Ql (Bld) Few Normal [facility] Comment on above: Order Comment: Speci men Type: BLOOD SPECIMENOrdering Facility: [facility] Address: [address] [place] [address] Performed By: #### 5 7021-8 ####[facility] LABCLIA [id number] [place] [address] [place] Differential cell count method Nom (Bld) Manual Normal [facility] Comment on above: Order Comment: Speci men Type: BLOOD SPECIMENOrdering Facility: [facility] Address: [address] [place] [address] Performed By: #### 5 7021-8 ####[facility] LABCLIA [id number] [place] [address] [place] Eosinophils (Bld) [#/Vol] 0.01 10*3/uL Normal <0.46 [facility] Comment on above: Order Comment: Speci men Type: BLOOD SPECIMENOrdering Facility: [facility] Address: [address] [place] [address] Performed By: #### 5 7021-8 ####[facility] LABCLIA [id number] [place] [address] [place] Eosinophils/100 WBC (Bld) 1.0 % Normal [facility] Comment on above: Order Comment: Speci men Type: BLOOD SPECIMENOrdering Facility: [facility] Address: [address] [place] [address] Performed By: #### 5 7021-8 ####[facility] LABIA [id number] [place] [address] [place] Erythrocyte distribution width (RBC) [Ratio] 19.4 % High 11.5-15.0 [facility] Comment on above: Order Comment: Speci men Type: BLOOD SPECIMENOrdering Facility: [facility] Address: [address] [place] [address] Performed By: #### 5 7021-8 ####[facility] LABIA [id number] [place] [address] [place] Hematocrit (Bld) [Volume fraction] 24.1 % Low 36.0-46.0 [facility] Comment on above: Order Comment: Speci men Type: BLOOD SPECIMENOrdering Facility: [facility] Address: [address] [place] [address] Performed By: #### 5 7021-8 ####[facility] LABCLIA [id number] [place] [address] [place] Hemoglobin (Bld) [Mass/Vol] 8.1 g/dL Low 11.5-15.5 [facility] Comment on above: Order Comment: Speci men Type: BLOOD SPECIMENOrdering Facility: [facility] Address: [address] [place] [address] Performed By: #### 5 7021-8 ####[facility] LABCLIA [id number] [place] [address] [place] Lymphocytes (Bld) [#/Vol] 0.60 10*3/uL Low 1.00-4.00 [facility] Comment on above: Order Comment: Speci men Type: BLOOD SPECIMENOrdering Facility: [facility] Address: [address] [place] [address] Performed By: #### 5 7021-8 ####[facility] LABCLIA [id number] [place] [address] [place] Lymphocytes/100 WBC (Bld) 49.0 % Normal [facility] Comment on above: Order Comment: Speci men Type: BLOOD SPECIMENOrdering Facility: [facility] Address: [address] [place] [address] Performed By: #### 5 7021-8 ####[facility] LABCLIA [id number] [place] [address] [place] MCH (RBC) [Entitic mass] 30.2 pg Normal 26.0-34.0 [facility] Comment on above: Order Comment: Speci men Type: BLOOD SPECIMENOrdering Facility: [facility] Address: [address] [place] [address] Performed By: #### 5 7021-8 ####[facility] LABCLIA [id number] [place] [address] [place] MCHC (RBC) [Mass/Vol] 33.6 g/dL Normal 30.5-36.0 [facility] Comment on above: Order Comment: Speci men Type: BLOOD SPECIMENOrdering Facility: [facility] Address: [address] [place] [address] Performed By: #### 5 7021-8 ####[facility] LABCLIA [id number] [place] [address] [place] MCV (RBC) [Entitic vol] 89.9 fL Normal 80.0-100.0 [facility] Comment on above: Order Comment: Speci men Type: BLOOD SPECIMENOrdering Facility: [facility] Address: [address] [place] [address] Performed By: #### 5 7021-8 ####[facility] LABCLIA [id number] [place] [address] [place] Monocytes (Bld) [#/Vol] 0.01 10*3/uL Normal <0.87 [facility] Comment on above: Order Comment: Speci men Type: BLOOD SPECIMENOrdering Facility: [facility] Address: [address] [place] [address] Performed By: #### 5 7021-8 ####[facility] LABCLIA [id number] [place] [address] [place] Monocytes/100 WBC (Bld) 1.0 % Normal [facility] Comment on above: Order Comment: Speci men Type: BLOOD SPECIMENOrdering Facility: [facility] [facility] Address: [address] [place] [address] Performed By: #### 5 7021-8 ####[facility] LABCLIA [id number] [place] [address] [place] Neutrophils (Bld) [#/Vol] 0.49 10*3/uL Low 1.45-7.50 [facility] Comment on above: Order Comment: Speci men Type: BLOOD SPECIMENOrdering Facility: [facility] Address: [address] [place] [address] Performed By: #### 5 7021-8 ####[facility] LABCLIA [id number] [place] [address] [place] Neutrophils/100 WBC (Bld) 40.0 % Normal [facility] Comment on above: Order Comment: Speci men Type: BLOOD SPECIMENOrdering Facility: [facility] Address: [address] [place] [address] Performed By: #### 5 7021-8 ####[facility] LABCLIA [id number] [place] [address] [place] Nucleated RBC (Bld) [#/Vol] 10*3/uL Normal <0.01 [facility] Comment on above: Order Comment: Speci men Type: BLOOD SPECIMENOrdering Facility: [facility] Address: [address] [place] [address] Performed By: #### 5 7021-8 ####[facility] LABCLIA [id number] [place] [address] [place] Nucleated RBC/100 WBC (Bld) [Ratio] 0.0 /100 WBC Normal [facility] Comment on above: Order Comment: Speci men Type: BLOOD SPECIMENOrdering Facility: [facility] Address: [address] [place] [address] Performed By: #### 5 7021-8 ####[facility] LABCLIA [id number] [place] [address] [place] Ovalocytes LM Ql (Bld) Few Normal [facility] Comment on above: Order Comment: Speci men Type: BLOOD SPECIMENOrdering Facility: [facility] Address: [address] [place] [address] Performed By: #### 5 7021-8 ####[facility] LABCLIA [id number] [place] [address] [place] Platelet mean volume (Bld) [Entitic vol] 9.7 fL Normal 9.0-12.7 [facility] Comment on above: Order Comment: Speci men Type: BLOOD SPECIMENOrdering Facility: [facility] Address: [address] [place] [address] Performed By: #### 5 7021-8 ####[facility] LABCLIA [id number] [place] [address] [place] Platelets (Bld) [#/Vol] 8 10*3/uL Critically low 150-400 [facility] Comment on above: Order Comment: Speci men Type: BLOOD SPECIMENOrdering Facility: [facility] Address: [address] [place] [address] Result Comment: Resu lts checked and verified.No clot detected. Performed By: #### 5 7021-8 ####[facility] LABIA [id number] [place] [address] [place] Platelets Estimate (Bld) [#/Vol] Decreased Normal [facility] Comment on above: Order Comment: Speci men Type: BLOOD SPECIMENOrdering Facility: [facility] Address: [address] [place] [address] Performed By: #### 5 7021-8 ####[facility] LABIA [id number] [place] [address] [place] RBC (Bld) [#/Vol] 2.68 10*6/uL Low 3.90-5.20 [facility] Comment on above: Order Comment: Speci men Type: BLOOD SPECIMENOrdering Facility: [facility] Address: [address] [place] [address] Performed By: #### 5 7021-8 ####[facility] LABCLIA [id number] [place] [address] [place] RBC FRAGMENTS Few Abnormal None Seen [facility] Comment on above: Order Comment: Speci men Type: BLOOD SPECIMENOrdering Facility: [facility] Address: [address] [place] [address] Performed By: #### 5 7021-8 ####[facility] LABIA [id number] [place] [address] [place] RED CELL MORPH Reviewed: see result s of individual morphologies Normal [facility] Comment on above: Order Comment: Speci men Type: BLOOD SPECIMENOrdering Facility: [facility] Address: [address] [place] [address] Performed By: #### 5 7021-8 ####[facility] LABCLIA [id number] [place] [address] [place] WBC (Bld) [#/Vol] 1.23 10*3/uL Low 3.70-11.00 [facility] Comment on above: Order Comment: Speci men Type: BLOOD SPECIMENOrdering Facility: [facility] Address: [address] [place] [address] Result Comment: No c lot detected. Performed By: #### 5 7021-8 ####[facility] LABCLIA [id number] [place] [address] [place] CNDSon 09-29-2023 CNDS Normal [facility] Comprehensive metabolic 2000 panelon 09-29-2023 Albumin [Mass/Vol] 3.0 g/dL Low 3.9-4.9 [facility] Comment on above: Order Comment: Speci men Type: BLOOD SPECIMENOrdering Facility: [facility] Address: [address] [place] [address] Performed By: #### 2 4323-8, 57835-2 ####[facility] LABCLIA [id number] [place] [address] [place] ALP [Catalytic activity/Vol] 78 U/L Normal 34-123 [facility] Comment on above: Order Comment: Speci men Type: BLOOD SPECIMENOrdering Facility: [facility] Address: [address] [place] [address] Performed By: #### 2 4323-8, 85219-4 ####[facility] LABCLIA [id number] [place] [address] [place] ALT [Catalytic activity/Vol] 21 U/L Normal 7-38 [facility] Comment on above: Order Comment: Speci men Type: BLOOD SPECIMENOrdering Facility: [facility] Address: [address] [place] [address] Performed By: #### 2 4323-8, ####[facility] LABCLIA [id number] [address] [address] [place] Anion gap [Moles/Vol] 6 mmol/L Low 9-18 [facility] Comment on above: Order Comment: Speci men Type: BLOOD SPECIMENOrdering Facility: [facility] Address: [address] [place] [address] Performed By: #### 2 4323-8, ####[facility] LABCLIA [id number] [place] [address] [place] AST [Catalytic activity/Vol] 16 U/L Normal 13-35 [facility] Comment on above: Order Comment: Speci men Type: BLOOD SPECIMENOrdering Facility: [facility] Address: [address] [place] [address] Performed By: #### 2 4323-8, ####[facility] LABCLIA [id number] [place] [id number] [place] Bilirubin [Mass/Vol] 0.6 mg/dL Normal 0.2-1.3 [facility] Comment on above: Order Comment: Speci men Type: BLOOD SPECIMENOrdering Facility: [facility] Address: [address] [place] [address] Performed By: #### 2 4323-8, ####[facility] LABCLIA [id number] [place] [id number] [place] Calcium [Mass/Vol] 8.4 mg/dL Low 8.5-10.2 [facility] Comment on above: Order Comment: Speci men Type: BLOOD SPECIMENOrdering Facility: [facility] Address: [address] [place] [id number] Performed By: #### 2 4323-8, ####[facility] LABCLIA [id number] [address] [address] [place] Chloride [Moles/Vol] 104 mmol/L Normal 97-105 [facility] Comment on above: Order Comment: Speci men Type: BLOOD SPECIMENOrdering Facility: [facility] Address: [address] [place] [address] Performed By: #### 2 4323-8, ####[facility] LABCLIA [id number] [place] [address] [place] CO2 [Moles/Vol] 24 mmol/L Normal 22-30 [facility] Comment on above: Order Comment: Speci men Type: BLOOD SPECIMENOrdering Facility: [facility] Address: [address] [place] [address] Performed By: #### 2 4323-8, ####[facility] LABCLIA [id number] [place] [address] [place] Creatinine [Mass/Vol] 0.48 mg/dL Low 0.58-0.96 [facility] Comment on above: Order Comment: Speci men Type: BLOOD SPECIMENOrdering Facility: [facility] Address: [address] [place] [address] Performed By: #### 2 4323-8, ####[facility] LABCLIA [id number] [place] [id number] [place] Creatinine and Glomerular filtration rate.predicted panel (S/P/Bld) 95 mL/min/1.73m??? Normal >=60 [facility] Comment on above: Order Comment: Speci men Type: BLOOD SPECIMENOrdering Facility: [facility] Address: [address] [place] [address] Result Comment: Akiko mated Glomerular Filtration Rate [...] actual GFR. Performed By: #### 2 4323-8, ####[facility] LABCLIA [id number] [place] [id number] [place] Glucose [Mass/Vol] 110 mg/dL High 74-99 [facility] Comment on above: Order Comment: Qi reynolds Type: BLOOD SPECIMENOrdering Facility: [facility] Address: [address] [place] [address] Result Comment: The [place] [employer] (ADA) provides guidance for cutoff [...] Standards of Medical Care in Diabetes 2016, [place] [employer]. Diabetes Care. 2016.39(Suppl 1). Performed By: #### 2 43209-20, ####[facility] LABCLIA [id number] [address] [address] [place] Potassium [Moles/Vol] 3.7 mmol/L Normal 3.7-5.1 [facility] Comment on above: Order Comment: Qi reynolds Type: BLOOD SPECIMENOrdering Facility: [facility] Address: [address] [place] [address] Performed By: #### 2 4323-8, ####[facility] LABCLIA [id number] [address] [address] [place] Protein [Mass/Vol] 4.9 g/dL Low 6.3-8.0 [facility] Comment on above: Order Comment: Speci men Type: BLOOD SPECIMENOrdering Facility: [facility] Address: [address] [place] [address] Performed By: #### 2 4323-8, ####[facility] LABCLIA [id number] [place] [id number] [place] Sodium [Moles/Vol] 134 mmol/L Low 136-144 [facility] Comment on above: Order Comment: Speci men Type: BLOOD SPECIMENOrdering Facility: [facility] Address: [address] [place], [place] [address] Performed By: #### 2 4323-8, ####[facility] LABCLIA [id number] [place] [address] [place] Urea nitrogen [Mass/Vol] 11 mg/dL Normal 7-21 [facility] Comment on above: Order Comment: Speci men Type: BLOOD SPECIMENOrdering Facility: [facility] Address: [address] [place] [address] Performed By: #### 2 4323-8, ####[facility] LABCLIA [id number] [place] [id number] [place] Magnesium SerPl-mCncon 09-28 Magnesium [Mass/Vol] 2.3 mg/dL Normal 1.7-2.3 [facility] Comment on above: Order Comment: Speci men Type: BLOOD SPECIMENOrdering Facility: [facility] Address: [address] [place] [address] Performed By: #### 2 4323-8, ####[facility] LABCLIA [id number] [address] [address] [place] NURSING PROGon 09-29-2023 NURSING PROG Normal [facility] PT panel Coag (PPP)on 2023 INR Coag (PPP) [Relative time] 1.2 {INR} Normal 0.9-1.3 [facility] Comment on above: Order Comment: Qi reynolds Type: BLOOD SPECIMENOrdering Facility: [facility] Address: [address] [place] [address] Result Comment: Clementine min K Antagonist (VKA) Therapeutic Range: INR 2 to 3 (Target INR of 2.5)Note: For patients treated with VKA drugs, such as warfarin, the [place] [employer] 2012 Guideline recommends [...] of 3).Collins HUTCHINS, et al. Chest 2012, 141:7S-47SNishimaspen RA, et al. JACC 2017, 70: 252-289 Performed By: #### 3 4528-0, 46719-5 ####[facility] LABIA [id number] [place] [address] [place] PT Coag (PPP) [Time] 12.9 s Normal 9.7-13.0 [facility] Comment on above: Order Comment: Qi reynolds Type: BLOOD SPECIMENOrdering Facility: [facility] Address: [address] [place] [id number] Performed By: #### 3 4528-0, 24264-0 ####[facility] [id number] [place] [address] [place] aPTT PPPon 09-29-2023 aPTT Coag (PPP) [Time] 35.9 s High 23.0-32.4 [facility] Comment on above: Order Comment: Speci men Type: BLOOD SPECIMENOrdering Facility: [facility] Address: [address] [place] [address] Performed By: #### 3 4528-0, 74641-2 ####[facility] LABCLIA [id number] [place] [address] [place] CASE MANAGEMon 09-28-2023 CASE MANAGEM Normal [facility] CASE MANAGEM Normal [facility] CBC W Auto Differential pane l (Bld)on 09-28-2023 Basophils (Bld) [#/Vol] 0.00 10*3/uL Normal <0.11 [facility] Comment on above: Order Comment: Speci men Type: BLOOD SPECIMENOrdering Facility: [facility] Address: [address] [place] [address] Performed By: #### 5 7021-8 ####[facility] LABCLIA [id number] [place] [address] [place] Basophils/100 WBC (Bld) 0.0 % Normal [facility] Comment on above: Order Comment: Speci men Type: BLOOD SPECIMENOrdering Facility: [facility] Address: [address] [place] [address] Performed By: #### 5 7021-8 ####[facility] LABCLIA [id number] [place] [address] [place] BLAST% 14.5 % High <=0.0 [facility] Comment on above: Order Comment: Speci men Type: BLOOD SPECIMENOrdering Facility: [facility] Address: [address] [place] [address] Performed By: #### 5 7021-8 ####[facility] LABCLIA [id number] [place] [address] [place] Dacrocytes LM Ql (Bld) Few Normal [facility] Comment on above: Order Comment: Speci men Type: BLOOD SPECIMENOrdering Facility: [facility] Address: [address] [place] [address] Performed By: #### 5 7021-8 ####[facility] LABCLIA [id number] [place] [address] [place] Eosinophils (Bld) [#/Vol] 0.01 10*3/uL Normal <0.46 [facility] Comment on above: Order Comment: Speci men Type: BLOOD SPECIMENOrdering Facility: [facility] Address: [address] [place] [address] Performed By: #### 5 7021-8 ####[facility] LABCLIA [id number] [place] [address] [place] Eosinophils/100 WBC (Bld) 0.6 % Normal [facility] Comment on above: Order Comment: Speci men Type: BLOOD SPECIMENOrdering Facility: [facility] Address: [address] [place] [address] Performed By: #### 5 7021-8 ####[facility] LABCLIA [id number] [place] [address] [place] Erythrocyte distribution width (RBC) [Ratio] 19.5 % High 11.5-15.0 [facility] Comment on above: Order Comment: Speci men Type: BLOOD SPECIMENOrdering Facility: [facility] Address: [address] [place] [address] Performed By: #### 5 7021-8 ####[facility] LABCLIA [id number] [place] [address] [place] Hematocrit (Bld) [Volume fraction] 25.0 % Low 36.0-46.0 [facility] Comment on above: Order Comment: Speci men Type: BLOOD SPECIMENOrdering Facility: [facility] Address: [address] [place] [address] Performed By: #### 5 7021-8 ####[facility] LABCLIA [id number] [place] [address] [place] Hemoglobin (Bld) [Mass/Vol] 8.3 g/dL Low 11.5-15.5 [facility] Comment on above: Order Comment: Speci men Type: BLOOD SPECIMENOrdering Facility: [facility] Address: [address] [place] [address] Performed By: #### 5 7021-8 ####[facility] LABCLIA [id number] [place] [address] [place] Lymphocytes (Bld) [#/Vol] 0.46 10*3/uL Low 1.00-4.00 [facility] Comment on above: Order Comment: Speci men Type: BLOOD SPECIMENOrdering Facility: [facility] Address: [address] [place] [address] Performed By: #### 5 7021-8 ####[facility] LABCLIA [id number] [place] [address] [place] Lymphocytes/100 WBC (Bld) 28.5 % Normal [facility] Comment on above: Order Comment: Speci men Type: BLOOD SPECIMENOrdering Facility: [facility] Address: [address] [place] [address] Performed By: #### 5 7021-8 ####[facility] LABCLIA [id number] [place] [address] [place] MCH (RBC) [Entitic mass] 30.0 pg Normal 26.0-34.0 [facility] Comment on above: Order Comment: Speci men Type: BLOOD SPECIMENOrdering Facility: [facility] Address: [address] [place] [address] Performed By: #### 5 7021-8 ####[facility] LABCLIA [id number] [place] [address] [place] MCHC (RBC) [Mass/Vol] 33.2 g/dL Normal 30.5-36.0 [facility] Comment on above: Order Comment: Speci men Type: BLOOD SPECIMENOrdering Facility: [facility] Address: [address] [place] [address] Performed By: #### 5 7021-8 ####[facility] LABCLIA [id number] [place] [address] [place] MCV (RBC) [Entitic vol] 90.3 fL Normal 80.0-100.0 [facility] Comment on above: Order Comment: Speci men Type: BLOOD SPECIMENOrdering Facility: [facility] Address: [address] [place] [address] Performed By: #### 5 7021-8 ####[facility] LABCLIA [id number] [place] [address] [place] Monocytes (Bld) [#/Vol] 0.03 10*3/uL Normal <0.87 [facility] Comment on above: Order Comment: Speci men Type: BLOOD SPECIMENOrdering Facility: [facility] Address: [address] [place] [address] Performed By: #### 5 7021-8 ####[facility] LABCLIA [id number] [place] [address] [place] Monocytes/100 WBC (Bld) 1.7 % Normal [facility] Comment on above: Order Comment: Speci men Type: BLOOD SPECIMENOrdering Facility: [facility] Address: [address] [place] [address] Performed By: #### 5 7021-8 ####[facility] LABCLIA [id number] [place] [address] [place] Neutrophils (Bld) [#/Vol] 0.88 10*3/uL Low 1.45-7.50 [facility] Comment on above: Order Comment: Speci men Type: BLOOD SPECIMENOrdering Facility: [facility] Address: [address] [place] [address] Performed By: #### 5 7021-8 ####[facility] LABCLIA [id number] [place] [address] [place] Neutrophils/100 WBC (Bld) 54.7 % Normal [facility] Comment on above: Order Comment: Speci men Type: BLOOD SPECIMENOrdering Facility: [facility] Address: [address] [place] [address] Performed By: #### 5 7021-8 ####[facility] LABCLIA [id number] [place] [address] [place] Nucleated RBC (Bld) [#/Vol] 10*3/uL Normal <0.01 [facility] Comment on above: Order Comment: Speci men Type: BLOOD SPECIMENOrdering Facility: [facility] Address: [address] [place] [address] Performed By: #### 5 7021-8 ####[facility] LABCLIA [id number] [place] [address] [place] Nucleated RBC/100 WBC (Bld) [Ratio] 0.0 /100 WBC Normal [facility] Comment on above: Order Comment: Speci men Type: BLOOD SPECIMENOrdering Facility: [facility] Address: [address] [place] [address] Performed By: #### 5 7021-8 ####[facility] LABCLIA [id number] [place] [address] [place] Ovalocytes LM Ql (Bld) Few Normal [facility] Comment on above: Order Comment: Speci men Type: BLOOD SPECIMENOrdering Facility: [facility] Address: [address] [place] [address] Performed By: #### 5 7021-8 ####[facility] LABCLIA [id number] [place] [address] [place] Platelet mean volume (Bld) [Entitic vol] Normal [facility] Comment on above: Order Comment: Speci men Type: BLOOD SPECIMENOrdering Facility: [facility] Address: [address] [place] [address] Result Comment: Unab le to Report. Performed By: #### 5 7021-8 ####[facility] LABCLIA [id number] [place] [address] [place] Platelets (Bld) [#/Vol] 7 10*3/uL Critically low 150-400 [facility] Comment on above: Order Comment: Speci men Type: BLOOD SPECIMENOrdering Facility: [facility] Address: [address] [place] [address] Result Comment: Plat elet count confirmed by manual review of peripheral blood smear. Results checked and verified.No clot detected. Performed By: #### 5 7021-8 ####[facility] LABIA [id number] [place] [address] [place] Platelets Estimate (Bld) [#/Vol] Decreased Normal [facility] Comment on above: Order Comment: Speci men Type: BLOOD SPECIMENOrdering Facility: [facility] Address: [address] [place] [address] Performed By: #### 5 7021-8 ####[facility] LABIA [id number] [place] [address] [place] RBC (Bld) [#/Vol] 2.77 10*6/uL Low 3.90-5.20 [facility] Comment on above: Order Comment: Speci men Type: BLOOD SPECIMENOrdering Facility: [facility] Address: [address] [place] [address] Performed By: #### 5 7021-8 ####[facility] LABCLIA [id number] [place] [address] [place] RBC FRAGMENTS Few Abnormal None Seen [facility] Comment on above: Order Comment: Speci men Type: BLOOD SPECIMENOrdering Facility: [facility] Address: [address] [place] [address] Performed By: #### 5 7021-8 ####[facility] LABCLIA [id number] [place] [address] [place] RED CELL MORPH Reviewed: see result s of individual morphologies Normal [facility] Comment on above: Order Comment: Speci men Type: BLOOD SPECIMENOrdering Facility: [facility] Address: [address] [place] [address] Performed By: #### 5 7021-8 ####[facility] LABIA [id number] [place] [address] [place] WBC (Bld) [#/Vol] 1.60 10*3/uL Low 3.70-11.00 [facility] Comment on above: Order Comment: Speci men Type: BLOOD SPECIMENOrdering Facility: [facility] Address: [address] [place] [address] Result Comment: No c lot detected. Performed By: #### 5 7021-8 ####[facility] [id number] [place] [address] [place] Comprehensive metabolic 2000 panelon 09-28-2023 Albumin [Mass/Vol] 2.9 g/dL Low 3.9-4.9 [facility] Comment on above: Order Comment: Speci men Type: BLOOD SPECIMENOrdering Facility: [facility] Address: [address] [place] [address] Performed By: #### 1 9123-9, 76498-1 ####[facility] [id number] [place] [address] [place] ALP [Catalytic activity/Vol] 75 U/L Normal 34-123 [facility] Comment on above: Order Comment: Speci men Type: BLOOD SPECIMENOrdering Facility: [facility] Address: [address] [place] [address] Performed By: #### 1 9123-9, 91026-0 ####[facility] LABIA [id number] [place] [address] [place] ALT [Catalytic activity/Vol] 25 U/L Normal 7-38 [facility] Comment on above: Order Comment: Speci men Type: BLOOD SPECIMENOrdering Facility: [facility] Address: [address] [id number] Performed By: #### 1 9123-9, ####[facility] LABCLIA [id number] [place] [id number] [place] Anion gap [Moles/Vol] 6 mmol/L Low 9-18 [facility] Comment on above: Order Comment: Speci men Type: BLOOD SPECIMENOrdering Facility: [facility] Address: [address] [place] [address] Performed By: #### 1 9123-9, ####[facility] LABCLIA [id number] [place] [address] [place] AST [Catalytic activity/Vol] 17 U/L Normal 13-35 [facility] Comment on above: Order Comment: Speci men Type: BLOOD SPECIMENOrdering Facility: [facility] Address: [address] [place], [place] [id number] Performed By: #### 1 9123-9, ####[facility] LABCLIA [id number] [place] [address] [place] Bilirubin [Mass/Vol] 0.7 mg/dL Normal 0.2-1.3 [facility] Comment on above: Order Comment: Speci men Type: BLOOD SPECIMENOrdering Facility: [facility] Address: [address] [id number] Performed By: #### 1 9123-9, 92357-1 ####[facility] LABCLIA [id number] [place] [address] [place] Calcium [Mass/Vol] 8.3 mg/dL Low 8.5-10.2 [facility] Comment on above: Order Comment: Speci men Type: BLOOD SPECIMENOrdering Facility: [facility] Address: [address] [place], [place] [id number] Performed By: #### 1 9123-9, 74223-4 ####[facility] LABCLIA [id number] [place] [id number] [place] Chloride [Moles/Vol] 103 mmol/L Normal 97-105 [facility] Comment on above: Order Comment: Speci men Type: BLOOD SPECIMENOrdering Facility: [facility] Address: [address] [place] [address] Performed By: #### 1 9123-9, 14152-8 ####[facility] LABCLIA [id number] [place] [address] [place] CO2 [Moles/Vol] 25 mmol/L Normal 22-30 [facility] Comment on above: Order Comment: Speci men Type: BLOOD SPECIMENOrdering Facility: [facility] Address: [address] [place] [address] Performed By: #### 1 9123-9, 23428-2 ####[facility] LABCLIA [id number] [place] [address] [place] Creatinine [Mass/Vol] 0.51 mg/dL Low 0.58-0.96 [facility] Comment on above: Order Comment: Speci men Type: BLOOD SPECIMENOrdering Facility: [facility] Address: [address] [place] [address] Performed By: #### 1 9123-9, ####[facility] LABCLIA [id number] [place] [id number] [place] Creatinine and Glomerular filtration rate.predicted panel (S/P/Bld) 94 mL/min/1.73m??? Normal >=60 [facility] Comment on above: Order Comment: Speci men Type: BLOOD SPECIMENOrdering Facility: [facility] Address: [address] [place] [address] Result Comment: Akiko mated Glomerular Filtration Rate [...] actual GFR. Performed By: #### 1 9123-9, 00115-7 ####[facility] LABCLIA [id number] [place] [id number] [place] Glucose [Mass/Vol] 156 mg/dL High 74-99 [facility] Comment on above: Order Comment: Speci men Type: BLOOD SPECIMENOrdering Facility: [facility] Address: [address] [place] [address] Result Comment: The [place] [employer] (ADA) provides guidance for cutoff [...] Standards of Medical Care in Diabetes 2016, [place] [employer]. Diabetes Care. 2016.39(Suppl 1). Performed By: #### 1 9123-9, ####[facility] LABCLIA [id number] [place] [id number] [place] Potassium [Moles/Vol] 3.4 mmol/L Low 3.7-5.1 [facility] Comment on above: Order Comment: Speci men Type: BLOOD SPECIMENOrdering Facility: [facility] Address: [address] [phone] Performed By: #### 1 9123-9, 83827-8 ####[facility] LABCLIA [id number] [place] [id number] [place] Protein [Mass/Vol] 5.0 g/dL Low 6.3-8.0 [facility] Comment on above: Order Comment: Speci men Type: BLOOD SPECIMENOrdering Facility: [facility] Address: [address] [place] [address] Performed By: #### 1 9123-9, 55813-8 ####[facility] LABCLIA [id number] [place] [address] [place] Sodium [Moles/Vol] 134 mmol/L Low 136-144 [facility] Comment on above: Order Comment: Speci men Type: BLOOD SPECIMENOrdering Facility: [facility] Address: [address] [place] [address] Performed By: #### 1 9123-9, 01692-2 ####[facility] LABCLIA [id number] [place] [address] [place] Urea nitrogen [Mass/Vol] 12 mg/dL Normal 7-21 [facility] Comment on above: Order Comment: Speci men Type: BLOOD SPECIMENOrdering Facility: [facility] Address: [address] [place] [address] Performed By: #### 1 9123-9, 21564-6 ####[facility] LABCLIA [id number] [place] [address] [place] Magnesium SerPl-mCncon 09-27 Magnesium [Mass/Vol] 2.3 mg/dL Normal 1.7-2.3 [facility] Comment on above: Order Comment: Speci men Type: BLOOD SPECIMENOrdering Facility: [facility] Address: [address] [place] [address] Performed By: #### 1 9123-9, 28610-8 ####[facility] LABCLIA [id number] [place] [id number] [place] PT panel Coag (PPP)on 03-15- 2024 INR Coag (PPP) [Relative time] 1.2 {INR} Normal 0.9-1.3 [facility] Comment on above: Order Comment: Qi reynolds Type: BLOOD SPECIMENOrdering Facility: [facility] Address: [address] [place] [address] Result Comment: Clementine min K Antagonist (VKA) Therapeutic Range: INR 2 to 3 (Target INR of 2.5)Note: For patients treated with VKA drugs, such as warfarin, the [place] [employer] 2012 Guideline recommends [...] of 3).Collins HUTCHINS, et al. Chest 2012, 141:7S-47SNishfabrizio RA, et al. [facility] 2017, 70: 252-289 Performed By: #### 3 4528-0, 24403-2 ####[facility] LABIA [id number] [place] [address] [place] PT Coag (PPP) [Time] 12.7 s Normal 9.7-13.0 [facility] Comment on above: Order Comment: Qi men Type: BLOOD SPECIMENOrdering Facility: [facility] Address: [address] [place] [address] Performed By: #### 3 4528-0, 46583-4 ####[facility] LABIA [id number] [place] [address] [place] SOCIAL WORKon 09-28-2023 SOCIAL WORK Normal [facility] TYPE + SCREENon 09-28-2023 ABO B Normal [facility] Comment on above: Order Comment: Nikkii men Type: BLOOD SPECIMENOrdering Facility: [facility] Address: [address] [place] [address] Performed By: #### T SCR ####[facility] BANKCLIA [id number] [address] STATES OF [facility] HISTORICAL AB SCR STATUS Positive Abnormal [facility] Comment on above: Order Comment: Speci men Type: BLOOD SPECIMENOrdering Facility: [facility] Address: [address] [place] [address] Performed By: #### T SCR ####[facility] BANKCLIA [id number] [place] [address] [place] Rh Nom (Bld) Positive Normal [facility] Comment on above: Order Comment: Speci men Type: BLOOD SPECIMENOrdering Facility: [facility] Address: [address] [place] [address] Performed By: #### T SCR ####[facility] BANKCLIA [id number] [place] [address] [place] TYPE AND SCREEN EXPIRATION 10/01/2023 23:59 Normal [facility] Comment on above: Order Comment: Speci men Type: BLOOD SPECIMENOrdering Facility: [facility] Address: [address] [place] [address] Performed By: #### T SCR ####[facility]LO[facility] BANKCLIA [id number] [place] [address] [place] aPTT PPPon 09-28-2023 aPTT Coag (PPP) [Time] 35.5 s High 23.0-32.4 [facility] Comment on above: Order Comment: Speci men Type: BLOOD SPECIMENOrdering Facility: [facility] Address: [address] [place] [address] Performed By: #### 3 4528-0, 25438-5 ####[facility] LABCLIA [id number] [place] [address] [place] CBC W Auto Differential pane l (Bld)on 09-27-2023 Anisocytosis Ql (Bld) Present Normal [facility] Comment on above: Order Comment: Speci men Type: BLOOD SPECIMENOrdering Facility: [facility] Address: [address] [place] [address] Performed By: #### 5 7021-8 ####[facility] LABCLIA [id number] [place] [address] [place] Basophils (Bld) [#/Vol] 0.00 10*3/uL Normal <0.11 [facility] Comment on above: Order Comment: Speci men Type: BLOOD SPECIMENOrdering Facility: [facility] Address: [address] [place] [address] Performed By: #### 5 7021-8 ####[facility] LABCLIA [id number] [place] [address] [place] Basophils/100 WBC (Bld) 0.0 % Normal [facility] Comment on above: Order Comment: Speci men Type: BLOOD SPECIMENOrdering Facility: [facility] Address: [address] [place] [address] Performed By: #### 5 7021-8 ####[facility] LABCLIA [id number] [place] [address] [place] BLAST% 28.0 % High <=0.0 [facility] Comment on above: Order Comment: Speci men Type: BLOOD SPECIMENOrdering Facility: [facility] Address: [address] [place] [address] Performed By: #### 5 7021-8 ####[facility] LABCLIA [id number] [place] [address] [place] Dacrocytes LM Ql (Bld) Few Normal [facility] Comment on above: Order Comment: Speci men Type: BLOOD SPECIMENOrdering Facility: [facility] Address: [address] [place] [address] Performed By: #### 5 7021-8 ####[facility] LABCLIA [id number] [place] [address] [place] Differential cell count method Nom (Bld) Manual Normal [facility] Comment on above: Order Comment: Speci men Type: BLOOD SPECIMENOrdering Facility: [facility] Address: [address] [place] [address] Performed By: #### 5 7021-8 ####[facility] LABCLIA [id number] [place] [address] [place] Eosinophils (Bld) [#/Vol] 0.00 10*3/uL Normal <0.46 [facility] Comment on above: Order Comment: Speci men Type: BLOOD SPECIMENOrdering Facility: [facility] Address: [address] [place] [address] Performed By: #### 5 7021-8 ####[facility] LABCLIA [id number] [place] [address] [place] Eosinophils/100 WBC (Bld) 0.0 % Normal [facility] Comment on above: Order Comment: Speci men Type: BLOOD SPECIMENOrdering Facility: [facility] Address: [address] [place] [address] Performed By: #### 5 7021-8 ####[facility] LABIA [id number] [place] [address] [place] Erythrocyte distribution width (RBC) [Ratio] 20.0 % High 11.5-15.0 [facility] Comment on above: Order Comment: Speci men Type: BLOOD SPECIMENOrdering Facility: [facility] Address: [address] [place] [address] Performed By: #### 5 7021-8 ####[facility] LABCLIA [id number] [place] [address] [place] Hematocrit (Bld) [Volume fraction] 26.9 % Low 36.0-46.0 [facility] Comment on above: Order Comment: Speci men Type: BLOOD SPECIMENOrdering Facility: [facility] Address: [address] [place] [address] Performed By: #### 5 7021-8 ####[facility] LABIA [id number] [place] [address] [place] Hemoglobin (Bld) [Mass/Vol] 8.9 g/dL Low 11.5-15.5 [facility] Comment on above: Order Comment: Speci men Type: BLOOD SPECIMENOrdering Facility: [facility] Address: [address] [place] [address] Performed By: #### 5 7021-8 ####[facility] LABIA [id number] [place] [address] [place] Lymphocytes (Bld) [#/Vol] 0.53 10*3/uL Low 1.00-4.00 [facility] Comment on above: Order Comment: Speci men Type: BLOOD SPECIMENOrdering Facility: [facility] Address: [address] [place] [address] Performed By: #### 5 7021-8 ####[facility] LABIA [id number] [place] [address] [place] Lymphocytes/100 WBC (Bld) 27.0 % Normal [facility] Comment on above: Order Comment: Speci men Type: BLOOD SPECIMENOrdering Facility: [facility] Address: [address] [place] [address] Performed By: #### 5 7021-8 ####[facility] LABIA [id number] [place] [address] [place] MCH (RBC) [Entitic mass] 29.7 pg Normal 26.0-34.0 [facility] Comment on above: Order Comment: Speci men Type: BLOOD SPECIMENOrdering Facility: [facility] Address: [address] [place] [address] Performed By: #### 5 7021-8 ####[facility] LABCLIA [id number] [place] [address] [place] MCHC (RBC) [Mass/Vol] 33.1 g/dL Normal 30.5-36.0 [facility] Comment on above: Order Comment: Speci men Type: BLOOD SPECIMENOrdering Facility: [facility] Address: [address] [place] [address] Performed By: #### 5 7021-8 ####[facility] LABCLIA [id number] [place] [address] [place] MCV (RBC) [Entitic vol] 89.7 fL Normal 80.0-100.0 [facility] Comment on above: Order Comment: Speci men Type: BLOOD SPECIMENOrdering Facility: [facility] Address: [address] [place] [address] Performed By: #### 5 7021-8 ####[facility] LABIA [id number] [place] [address] [place] Monocytes (Bld) [#/Vol] 0.06 10*3/uL Normal <0.87 [facility] Comment on above: Order Comment: Speci men Type: BLOOD SPECIMENOrdering Facility: [facility] Address: [address] [place] [address] Performed By: #### 5 7021-8 ####[facility] LABIA [id number] [place] [address] [place] Monocytes/100 WBC (Bld) 3.0 % Normal [facility] Comment on above: Order Comment: Speci men Type: BLOOD SPECIMENOrdering Facility: [facility] Address: [address] [place] [address] Performed By: #### 5 7021-8 ####[facility] LABCLIA [id number] [place] [address] [place] MYELO% 1.0 % Normal [facility] Comment on above: Order Comment: Speci men Type: BLOOD SPECIMENOrdering Facility: [facility] Address: [address] [place] [address] Performed By: #### 5 7021-8 ####[facility] LABCLIA [id number] [place] [address] [place] Neutrophils (Bld) [#/Vol] 0.81 10*3/uL Low 1.45-7.50 [facility] Comment on above: Order Comment: Speci men Type: BLOOD SPECIMENOrdering Facility: [facility] Address: [address] [place] [address] Performed By: #### 5 7021-8 ####[facility] LABCLIA [id number] [place] [address] [place] Neutrophils/100 WBC (Bld) 41.0 % Normal [facility] Comment on above: Order Comment: Speci men Type: BLOOD SPECIMENOrdering Facility: [facility] Address: [address] [place] [address] Performed By: #### 5 7021-8 ####[facility] LABCLIA [id number] [place] [address] [place] Nucleated RBC (Bld) [#/Vol] 10*3/uL Normal <0.01 [facility] Comment on above: Order Comment: Speci men Type: BLOOD SPECIMENOrdering Facility: [facility] Address: [address] [place] [address] Performed By: #### 5 7021-8 ####[facility] LABCLIA [id number] [place] [address] [place] Nucleated RBC/100 WBC (Bld) [Ratio] 0.0 /100 WBC Normal [facility] Comment on above: Order Comment: Speci men Type: BLOOD SPECIMENOrdering Facility: [facility] Address: [address] [place] [address] Performed By: #### 5 7021-8 ####[facility] LABCLIA [id number] [place] [address] [place] Ovalocytes LM Ql (Bld) Few Normal [facility] Comment on above: Order Comment: Speci men Type: BLOOD SPECIMENOrdering Facility: [facility] Address: [address] [place] [address] Performed By: #### 5 7021-8 ####[facility] LABCLIA [id number] [place] [address] [place] Platelet mean volume (Bld) [Entitic vol] 10.9 fL Normal 9.0-12.7 [facility] Comment on above: Order Comment: Speci men Type: BLOOD SPECIMENOrdering Facility: [facility] Address: [address] [place] [address] Performed By: #### 5 7021-8 ####[facility] LABIA [id number] [place] [address] [place] Platelets (Bld) [#/Vol] 12 10*3/uL Low 150-400 [facility] Comment on above: Order Comment: Speci men Type: BLOOD SPECIMENOrdering Facility: [facility] Address: [address] [place] [address] Result Comment: Resu lts checked and verified.No clot detected. Performed By: #### 5 7021-8 ####[facility] LABIA [id number] [place] [address] [place] Platelets Estimate (Bld) [#/Vol] Decreased Normal [facility] Comment on above: Order Comment: Speci men Type: BLOOD SPECIMENOrdering Facility: [facility] Address: [address] [place] [address] Performed By: #### 5 7021-8 ####[facility] LABCLIA [id number] [place] [address] [place] Polychromasia LM Ql (Bld) Slight Normal [facility] Comment on above: Order Comment: Speci men Type: BLOOD SPECIMENOrdering Facility: [facility] Address: [address] [place] [address] Performed By: #### 5 7021-8 ####[facility] LABCLIA [id number] [place] [address] [place] RBC (Bld) [#/Vol] 3.00 10*6/uL Low 3.90-5.20 [facility] Comment on above: Order Comment: Speci men Type: BLOOD SPECIMENOrdering Facility: [facility] Address: [address] [place] [address] Performed By: #### 5 7021-8 ####[facility] LABCLIA [id number] [place] [address] [place] RED CELL MORPH Reviewed: see result s of individual morphologies Normal [facility] Comment on above: Order Comment: Speci men Type: BLOOD SPECIMENOrdering Facility: [facility] Address: [address] [place] [address] Performed By: #### 5 7021-8 ####[facility] LABCLIA [id number] [place] [address] [place] WBC (Bld) [#/Vol] 1.97 10*3/uL Low 3.70-11.00 [facility] Comment on above: Order Comment: Speci men Type: BLOOD SPECIMENOrdering Facility: [facility] Address: [address] [place] [address] Result Comment: No c lot detected. Performed By: #### 5 7021-8 ####[facility] LABCLIA [id number] [place] [address] [place] WBC Left Shift Ql (Bld) Present Normal [facility] Comment on above: Order Comment: Speci men Type: BLOOD SPECIMENOrdering Facility: [facility] Address: [address] [place] [address] Performed By: #### 5 7021-8 ####[facility] LABCLIA [id number] [address] [address] [place] Comprehensive metabolic 2000 panelon 09-27-2023 Albumin [Mass/Vol] 2.9 g/dL Low 3.9-4.9 [facility] Comment on above: Order Comment: Speci men Type: BLOOD SPECIMENOrdering Facility: [facility] Address: [address] [place] [address] Performed By: #### 1 9123-9, 49087-1 ####[facility] LABCLIA [id number] [place] [address] [place] ALP [Catalytic activity/Vol] 74 U/L Normal 34-123 [facility] Comment on above: Order Comment: Speci men Type: BLOOD SPECIMENOrdering Facility: [facility] Address: [address] [place] [address] Performed By: #### 1 9123-9, 92025-0 ####[facility] LABIA [id number] [place] [address] [place] ALT [Catalytic activity/Vol] 25 U/L Normal 7-38 [facility] Comment on above: Order Comment: Speci men Type: BLOOD SPECIMENOrdering Facility: [facility] Address: [address] [place] [address] Performed By: #### 1 9123-9, 21332-0 ####[facility] LABIA [id number] [place] [id number] [place] Anion gap [Moles/Vol] 7 mmol/L Low 9-18 [facility] Comment on above: Order Comment: Speci men Type: BLOOD SPECIMENOrdering Facility: [facility] Address: [address] [place] [address] Performed By: #### 1 9123-9, 79337-2 ####[facility] LABCLIA [id number] [place] [id number] [place] AST [Catalytic activity/Vol] 19 U/L Normal 13-35 [facility] Comment on above: Order Comment: Speci men Type: BLOOD SPECIMENOrdering Facility: [facility] Address: [address] [place] [address] Performed By: #### 1 9123-9, ####[facility] LABCLIA [id number] [place] [address] [place] Bilirubin [Mass/Vol] 0.8 mg/dL Normal 0.2-1.3 [facility] Comment on above: Order Comment: Speci men Type: BLOOD SPECIMENOrdering Facility: [facility] Address: [address] [place] [address] Performed By: #### 1 9123-9, 28874-5 ####[facility] LABCLIA [id number] [place] [address] [place] Calcium [Mass/Vol] 8.6 mg/dL Normal 8.5-10.2 [facility] Comment on above: Order Comment: Speci men Type: BLOOD SPECIMENOrdering Facility: [facility] Address: [address] [place] [address] Performed By: #### 1 23-9, ####[facility] LABCLIA [id number] [place] [address] [place] Chloride [Moles/Vol] 105 mmol/L Normal 97-105 [facility] Comment on above: Order Comment: Speci men Type: BLOOD SPECIMENOrdering Facility: [facility] Address: [address] [place] [address] Performed By: #### 1 9123-9, ####[facility] LABCLIA [id number] [place] [address] [place] CO2 [Moles/Vol] 26 mmol/L Normal 22-30 [facility] Comment on above: Order Comment: Speci men Type: BLOOD SPECIMENOrdering Facility: [facility] Address: [address] [place] [address] Performed By: #### 1 9123-9, 96606-0 ####[facility] LABIA [id number] [place] [address] [place] Creatinine [Mass/Vol] 0.51 mg/dL Low 0.58-0.96 [facility] Comment on above: Order Comment: Speci men Type: BLOOD SPECIMENOrdering Facility: [facility] Address: [address] [place] [address] Performed By: #### 1 9123-9, 14825-0 ####[facility] [id number] [place] [address] [place] Creatinine and Glomerular filtration rate.predicted panel (S/P/Bld) 94 mL/min/1.73m??? Normal >=60 [facility] Comment on above: Order Comment: Nikkii men Type: BLOOD SPECIMENOrdering Facility: [facility] Address: [address] [place] [address] Result Comment: Akiko mated Glomerular Filtration Rate [...] actual GFR. Performed By: #### 1 9123-9, ####[facility] LABIA [id number] [place] [address] [place] Glucose [Mass/Vol] 102 mg/dL High 74-99 [facility] Comment on above: Order Comment: Speci men Type: BLOOD SPECIMENOrdering Facility: [facility] Address: [address] [place] [address] Result Comment: The [place] Diabetes Association (ADA) provides guidance for cutoff [...] Standards of Medical Care in Diabetes 2016, [place] [employer]. Diabetes Care. 2016.39(Suppl 1). Performed By: #### 1 23-9, ####[facility] LABCLIA [id number] [place] [address] [place] Potassium [Moles/Vol] 3.3 mmol/L Low 3.7-5.1 [facility] Comment on above: Order Comment: Speci men Type: BLOOD SPECIMENOrdering Facility: [facility] Address: [address] [place] [address] Performed By: #### 1 9123-03, ####[facility] LABCLIA [id number] [place] [address] [place] Protein [Mass/Vol] 5.2 g/dL Low 6.3-8.0 [facility] Comment on above: Order Comment: Speci men Type: BLOOD SPECIMENOrdering Facility: [facility] Address: [address] [place] [address] Performed By: #### 1 9123-03, ####[facility] LABCLIA [id number] [place] [address] [place] Sodium [Moles/Vol] 138 mmol/L Normal 136-144 [facility] Comment on above: Order Comment: Speci men Type: BLOOD SPECIMENOrdering Facility: [facility] Address: [address] [place] [address] Performed By: #### 1 239, ####[facility] LABCLIA [id number] [place] [id number] [place] Urea nitrogen [Mass/Vol] 10 mg/dL Normal 7-21 [facility] Comment on above: Order Comment: Speci men Type: BLOOD SPECIMENOrdering Facility: [facility] Address: [address] [place] [address] Performed By: #### 1 9123-9, 55649-6 ####[facility] LABCLIA [id number] [place] [address] [place] Magnesium SerPl-mCncon 09-26 Magnesium [Mass/Vol] 2.3 mg/dL Normal 1.7-2.3 [facility] Comment on above: Order Comment: Speci men Type: BLOOD SPECIMENOrdering Facility: [facility] Address: [address] [place] [address] Performed By: #### 1 9123-9, 04934-4 ####[facility] LABCLIA [id number] [place] [id number] [place] NUTRITIONon 09-27-2023 NUTRITION Normal [facility] Outside Hospital Correspo ndenceon 09-27-2023 Outside Hospital Correspondence [id number] Normal [facility] SOCIAL WORKon 09-27-2023 SOCIAL WORK Normal [facility] SOCIAL WORK Normal [facility] SOCIAL WORK Normal [facility] XR HIP 1V LTon 09-27-2023 XR HIP 1V LT Normal [facility] XR HIP 1V RTon 09-27-2023 XR HIP 1V RT Normal [facility] CASE MANAGEMon 09-26-2023 CASE MANAGEM Normal [facility] CBC W Auto Differential pane l (Bld)on 09-26-2023 Anisocytosis Ql (Bld) Present Normal [facility] Comment on above: Order Comment: Speci men Type: BLOOD SPECIMENOrdering Facility: [facility] Address: [address] [place] [address] Performed By: #### 5 7021-8 ####[facility] LABCLIA [id number] [place] [address] [place] Basophils (Bld) [#/Vol] 0.00 10*3/uL Normal <0.11 [facility] Comment on above: Order Comment: Speci men Type: BLOOD SPECIMENOrdering Facility: [facility] Address: [address] [place] [address] Performed By: #### 5 7021-8 ####[facility] LABCLIA [id number] [place] [address] [place] Basophils/100 WBC (Bld) 0.0 % Normal [facility] Comment on above: Order Comment: Speci men Type: BLOOD SPECIMENOrdering Facility: [facility] Address: [address] [place] [address] Performed By: #### 5 7021-8 ####[facility] LABCLIA [id number] [place] [address] [place] BLAST% 42.0 % High <=0.0 [facility] Comment on above: Order Comment: Speci men Type: BLOOD SPECIMENOrdering Facility: [facility] Address: [address] [place] [address] Performed By: #### 5 7021-8 ####[facility] LABCLIA [id number] [place] [address] [place] Dacrocytes LM Ql (Bld) Few Normal [facility] Comment on above: Order Comment: Speci men Type: BLOOD SPECIMENOrdering Facility: [facility] Address: [address] [place] [address] Performed By: #### 5 7021-8 ####[facility] LABCLIA [id number] [place] [address] [place] Differential cell count method Nom (Bld) Manual Normal [facility] Comment on above: Order Comment: Speci men Type: BLOOD SPECIMENOrdering Facility: [facility] Address: [address] [place] [address] Performed By: #### 5 7021-8 ####[facility] LABCLIA [id number] [place] [address] [place] Eosinophils (Bld) [#/Vol] 0.03 10*3/uL Normal <0.46 [facility] Comment on above: Order Comment: Speci men Type: BLOOD SPECIMENOrdering Facility: [facility] Address: [address] [place] [address] Performed By: #### 5 7021-8 ####[facility] LABCLIA [id number] [place] [address] [place] Eosinophils/100 WBC (Bld) 1.0 % Normal [facility] Comment on above: Order Comment: Speci men Type: BLOOD SPECIMENOrdering Facility: [facility] Address: [address] [place] [address] Performed By: #### 5 7021-8 ####[facility] LABCLIA [id number] [place] [address] [place] Erythrocyte distribution width (RBC) [Ratio] 20.7 % High 11.5-15.0 [facility] Comment on above: Order Comment: Speci men Type: BLOOD SPECIMENOrdering Facility: [facility] Address: [address] [place] [address] Performed By: #### 5 7021-8 ####[facility] LABCLIA [id number] [place] [address] [place] Hematocrit (Bld) [Volume fraction] 23.8 % Low 36.0-46.0 [facility] Comment on above: Order Comment: Speci men Type: BLOOD SPECIMENOrdering Facility: [facility] Address: [address] [place] [address] Performed By: #### 5 7021-8 ####[facility] LABCLIA [id number] [place] [address] [place] Hemoglobin (Bld) [Mass/Vol] 7.8 g/dL Low 11.5-15.5 [facility] Comment on above: Order Comment: Speci men Type: BLOOD SPECIMENOrdering Facility: [facility] Address: [address] [place] [address] Performed By: #### 5 7021-8 ####[facility] LABCLIA [id number] [place] [address] [place] Lymphocytes (Bld) [#/Vol] 0.53 10*3/uL Low 1.00-4.00 [facility] Comment on above: Order Comment: Speci men Type: BLOOD SPECIMENOrdering Facility: [facility] Address: [address] [place] [address] Performed By: #### 5 7021-8 ####[facility] LABCLIA [id number] [place] [address] [place] Lymphocytes/100 WBC (Bld) 20.0 % Normal [facility] Comment on above: Order Comment: Speci men Type: BLOOD SPECIMENOrdering Facility: [facility] Address: [address] [place] [address] Performed By: #### 5 7021-8 ####[facility] LABCLIA [id number] [place] [address] [place] MCH (RBC) [Entitic mass] 30.7 pg Normal 26.0-34.0 [facility] Comment on above: Order Comment: Speci men Type: BLOOD SPECIMENOrdering Facility: [facility] Address: [address] [place] [address] Performed By: #### 5 7021-8 ####[facility] LABCLIA [id number] [place] [address] [place] MCHC (RBC) [Mass/Vol] 32.8 g/dL Normal 30.5-36.0 [facility] Comment on above: Order Comment: Speci men Type: BLOOD SPECIMENOrdering Facility: [facility] Address: [address] [place] [address] Performed By: #### 5 7021-8 ####[facility] LABIA [id number] [place] [address] [place] MCV (RBC) [Entitic vol] 93.7 fL Normal 80.0-100.0 [facility] Comment on above: Order Comment: Speci men Type: BLOOD SPECIMENOrdering Facility: [facility] Address: [address] [place] [address] Performed By: #### 5 7021-8 ####[facility] LABIA [id number] [place] [address] [place] Monocytes (Bld) [#/Vol] 0.19 10*3/uL Normal <0.87 [facility] Comment on above: Order Comment: Speci men Type: BLOOD SPECIMENOrdering Facility: [facility] Address: [address] [place] [address] Performed By: #### 5 7021-8 ####[facility] LABIA [id number] [place] [address] [place] Monocytes/100 WBC (Bld) 7.0 % Normal [facility] Comment on above: Order Comment: Speci men Type: BLOOD SPECIMENOrdering Facility: [facility] Address: [address] [place] [address] Performed By: #### 5 7021-8 ####[facility] LABIA [id number] [place] [address] [place] Neutrophils (Bld) [#/Vol] 0.80 10*3/uL Low 1.45-7.50 [facility] Comment on above: Order Comment: Speci men Type: BLOOD SPECIMENOrdering Facility: [facility] Address: [address] [place] [address] Performed By: #### 5 7021-8 ####[facility] LABCLIA [id number] [place] [address] [place] Neutrophils/100 WBC (Bld) 30.0 % Normal [facility] Comment on above: Order Comment: Speci men Type: BLOOD SPECIMENOrdering Facility: [facility] Address: [address] [place] [address] Performed By: #### 5 7021-8 ####[facility] LABCLIA [id number] [place] [address] [place] Nucleated RBC (Bld) [#/Vol] 10*3/uL Normal <0.01 [facility] Comment on above: Order Comment: Speci men Type: BLOOD SPECIMENOrdering Facility: [facility] Address: [address] [place] [address] Performed By: #### 5 7021-8 ####[facility] LABCLIA [id number] [place] [address] [place] Nucleated RBC/100 WBC (Bld) [Ratio] 0.0 /100 WBC Normal [facility] Comment on above: Order Comment: Speci men Type: BLOOD SPECIMENOrdering Facility: [facility] Address: [address] [place] [address] Performed By: #### 5 7021-8 ####[facility] LABCLIA [id number] [place] [address] [place] Ovalocytes LM Ql (Bld) Few Normal [facility] Comment on above: Order Comment: Speci men Type: BLOOD SPECIMENOrdering Facility: [facility] Address: [address] [place] [address] Performed By: #### 5 7021-8 ####[facility] LABCLIA [id number] [place] [address] [place] Platelet mean volume (Bld) [Entitic vol] 12.1 fL Normal 9.0-12.7 [facility] Comment on above: Order Comment: Speci men Type: BLOOD SPECIMENOrdering Facility: [facility] Address: [address] [place] [address] Performed By: #### 5 7021-8 ####[facility] LABCLIA [id number] [place] [address] [place] Platelets (Bld) [#/Vol] 22 10*3/uL Low 150-400 [facility] Comment on above: Order Comment: Speci men Type: BLOOD SPECIMENOrdering Facility: [facility] Address: [address] [place] [address] Result Comment: Resu lts checked and verified.No clot detected. Performed By: #### 5 7021-8 ####[facility] LABIA [id number] [place] [address] [place] Platelets Estimate (Bld) [#/Vol] Decreased Normal [facility] Comment on above: Order Comment: Speci men Type: BLOOD SPECIMENOrdering Facility: [facility] Address: [address] [place] [address] Performed By: #### 5 7021-8 ####[facility] LABIA [id number] [place] [address] [place] Polychromasia LM Ql (Bld) Slight Normal [facility] Comment on above: Order Comment: Speci men Type: BLOOD SPECIMENOrdering Facility: [facility] Address: [address] [place] [address] Performed By: #### 5 7021-8 ####[facility] LABCLIA [id number] [place] [address] [place] RBC (Bld) [#/Vol] 2.54 10*6/uL Low 3.90-5.20 [facility] Comment on above: Order Comment: Speci men Type: BLOOD SPECIMENOrdering Facility: [facility] Address: [address] [place] [address] Performed By: #### 5 7021-8 ####[facility] LABCLIA [id number] [address] [address] [place] RED CELL MORPH Reviewed: see result s of individual morphologies Normal [facility] Comment on above: Order Comment: Speci men Type: BLOOD SPECIMENOrdering Facility: [facility] Address: [address] [place] [address] Performed By: #### 5 7021-8 ####[facility] LABCLIA [id number] [address] [address] [place] WBC (Bld) [#/Vol] 2.65 10*3/uL Low 3.70-11.00 [facility] Comment on above: Order Comment: Speci men Type: BLOOD SPECIMENOrdering Facility: [facility] Address: [address] [place] [address] Performed By: #### 5 7021-8 ####[facility] LABIA [id number] [place] [id number] [place] CONSULTon 09-26-2023 CONSULT Normal [facility] Comprehensive metabolic 2000 panelon 09-26-2023 Albumin [Mass/Vol] 3.0 g/dL Low 3.9-4.9 [facility] Comment on above: Order Comment: Speci men Type: BLOOD SPECIMENOrdering Facility: [facility] Address: [address] [place] [address] Performed By: #### 2 4323-8, 91553-9, 3084-1, 2777-1 ####[facility] LABIA [id number] [address] [address] [place] ALP [Catalytic activity/Vol] 71 U/L Normal 34-123 [facility] Comment on above: Order Comment: Speci men Type: BLOOD SPECIMENOrdering Facility: [facility] Address: [address] [place] [address] Performed By: #### 2 4323-8, 98924-4, 3084-1, 2777-1 ####[facility] LABCLIA [id number] [address] [address] [place] ALT [Catalytic activity/Vol] 28 U/L Normal 7-38 [facility] Comment on above: Order Comment: Speci men Type: BLOOD SPECIMENOrdering Facility: [facility] Address: [address] [place] [address] Performed By: #### 2 4323-8, 78599-6, 3083-, 277-1 ####[facility] LABCLIA [id number] [address] [address] [place] Anion gap [Moles/Vol] 9 mmol/L Normal 9-18 [facility] Comment on above: Order Comment: Speci men Type: BLOOD SPECIMENOrdering Facility: [facility] Address: [address] [place] [address] Performed By: #### 2 4323-8, 17907-5, 3083-07, 277- ####[facility] LABCLIA [id number] [address] [address] [place] AST [Catalytic activity/Vol] 26 U/L Normal 13-35 [facility] Comment on above: Order Comment: Speci men Type: BLOOD SPECIMENOrdering Facility: [facility] Address: [address] [place] [address] Performed By: #### 2 4323-8, 53371-5, 3083-, 277- ####[facility] LABCLIA [id number] [address] [address] [place] Bilirubin [Mass/Vol] 0.6 mg/dL Normal 0.2-1.3 [facility] Comment on above: Order Comment: Speci men Type: BLOOD SPECIMENOrdering Facility: [facility] Address: [address] [place] [address] Performed By: #### 2 4323-8, 67341-6, 3083-1, 277-1 ####[facility] LABCLIA [id number] [address] [address] [place] Calcium [Mass/Vol] 8.2 mg/dL Low 8.5-10.2 [facility] Comment on above: Order Comment: Speci men Type: BLOOD SPECIMENOrdering Facility: [facility] Address: [address] [place] [address] Performed By: #### 2 4323-8, 91180-9, 308-, 277-1 ####[facility] LABCLIA [id number] [address] [address] [place] Chloride [Moles/Vol] 105 mmol/L Normal 97-105 [facility] Comment on above: Order Comment: Speci men Type: BLOOD SPECIMENOrdering Facility: [facility] Address: [address] [place] [address] Performed By: #### 2 4323-8, 38044-2, 3083-, 277-1 ####[facility] LABCLIA [id number] [address] [address] [place] CO2 [Moles/Vol] 25 mmol/L Normal 22-30 [facility] Comment on above: Order Comment: Speci men Type: BLOOD SPECIMENOrdering Facility: [facility] Address: [address] [place] [address] Performed By: #### 2 4323-8, 09726-2, 3083-, 277-1 ####[facility] LABCLIA [id number] [address] [address] [place] Creatinine [Mass/Vol] 0.52 mg/dL Low 0.58-0.96 [facility] Comment on above: Order Comment: Speci men Type: BLOOD SPECIMENOrdering Facility: [facility] Address: [address] [place] [address] Performed By: #### 2 4323-8, 67190-1, 308-1, 277-1 ####[facility] LABCLIA [id number] [place] [address] [place] Creatinine and Glomerular filtration rate.predicted panel (S/P/Bld) 93 mL/min/1.73m??? Normal >=60 [facility] Comment on above: Order Comment: Qi reynolds Type: BLOOD SPECIMENOrdering Facility: [facility] Address: [address] [place] [address] Result Comment: Akiko mated Glomerular Filtration Rate [...] actual GFR. Performed By: #### 2 4323-8, 36296-0, 3084-1, 2777-1 ####[facility] LABCLIA [id number] [place] [address] [place] Glucose [Mass/Vol] 118 mg/dL High 74-99 [facility] Comment on above: Order Comment: Qi reynolds Type: BLOOD SPECIMENOrdering Facility: [facility] Address: [address] [place] [address] Result Comment: The [place] [employer] (ADA) provides guidance for cutoff [...] Standards of Medical Care in Diabetes 2016, [place] [employer]. Diabetes Care. 2016.39(Suppl 1). Performed By: #### 2 4323-8, 45896-0, 3084-1, 2777-1 ####[facility] LABCLIA [id number] [address] [address] [place] Potassium [Moles/Vol] 3.6 mmol/L Low 3.7-5.1 [facility] Comment on above: Order Comment: Speci men Type: BLOOD SPECIMENOrdering Facility: [facility] Address: [address] [place] [address] Performed By: #### 2 4323-8, 16134-1, 3083-, 277-1 ####[facility] LABCLIA [id number] [address] [address] [place] Protein [Mass/Vol] 5.1 g/dL Low 6.3-8.0 [facility] Comment on above: Order Comment: Speci men Type: BLOOD SPECIMENOrdering Facility: [facility] Address: [address] [place] [address] Performed By: #### 2 4323-8, 74444-7, 3083-, 277- ####[facility] LABCLIA [id number] [place] [id number] [place] Sodium [Moles/Vol] 139 mmol/L Normal 136-144 [facility] Comment on above: Order Comment: Speci men Type: BLOOD SPECIMENOrdering Facility: [facility] Address: [address] [place] [address] Performed By: #### 2 4323-8, 10181-6, 3083-, 277- ####[facility] LABCLIA [id number] [address] [address] [place] Urea nitrogen [Mass/Vol] 11 mg/dL Normal 7-21 [facility] Comment on above: Order Comment: Speci men Type: BLOOD SPECIMENOrdering Facility: [facility] Address: [address] [place] [address] Performed By: #### 2 4323-8, 07326-6, 3083-1, 277-1 ####[facility] LABCLIA [id number] [place] [address] [place] Fibrinogen PPP-mCncon 2023 Fibrinogen Coag (PPP) [Mass/Vol] 522 mg/dL High 200-400 [facility] Comment on above: Order Comment: Qi reynolds Type: BLOOD SPECIMENOrdering Facility: [facility] Address: [address] [place] [address] Result Comment: Resu lt rechecked.Sample checked for clot. Performed By: #### 3 4528-0, 26630-0, 3255-7 ####[facility] LABCLIA [id number] [place] [address] [place] [facility] Magnesium [Mass/Vol] 2.3 mg/dL Normal 1.7-2.3 [facility] Comment on above: Order Comment: Qi reynolds Type: BLOOD SPECIMENOrdering Facility: [facility] Address: [address] [place] [address] Performed By: #### 2 4323-8, 73385-1, 3084-1, 2777-1 ####[facility] LABIA [id number] [place] [address] [place] PT panel Coag (PPP)on 2023 INR Coag (PPP) [Relative time] 1.2 {INR} Normal 0.9-1.3 [facility] Comment on above: Order Comment: Qi reynolds Type: BLOOD SPECIMENOrdering Facility: [facility] Address: [address] [place] [address] Result Comment: Clementine min K Antagonist (VKA) Therapeutic Range: INR 2 to 3 (Target INR of 2.5)Note: For patients treated with VKA drugs, such as warfarin, the [employer] 2012 Guideline recommends [...] al. Chest 2012, 141:7S-47SKenny RA, et al. [facility] 2017, 70: 252-289 Performed By: #### 3 4528-0, 71774-1, 3255-7 ####[facility] LABIA [id number] [place] [id number] [place] PT Coag (PPP) [Time] 13.0 s Normal 9.7-13.0 [facility] Comment on above: Order Comment: Specterrell reynolds Type: BLOOD SPECIMENOrdering Facility: [facility] Address: [address] [place] [address] Performed By: #### 3 4528-0, 70666-8, 3255-7 ####[facility] [id number] [place] [id number] [place] Phosphate SerPl-ncon 09-25 Phosphate [Mass/Vol] 2.0 mg/dL Low 2.7-4.8 [facility] Comment on above: Order Comment: Qi reynolds Type: BLOOD SPECIMENOrdering Facility: [facility] Address: [address] [place] [address] Performed By: #### 2 4323-8, 76831-3, 3084-1, 2777-1 ####[facility] [id number] [place] [id number] [place] THERAPY NTon 09-26-2023 THERAPY NT Normal [facility] Urate SerPl-mCncon Urate [Mass/Vol] 1.5 mg/dL Low 2.5-6.6 [facility] Comment on above: Order Comment: Speci men Type: BLOOD SPECIMENOrdering Facility: [facility] Address: [address] [place] [address] Performed By: #### 2 4323-8, 29824-7, 3084-1, 2777-1 ####[facility] LABCLIA [id number] [place] [address] [place] aPTT PPPon 09-26-2023 aPTT Coag (PPP) [Time] 34.5 s High 23.0-32.4 [facility] Comment on above: Order Comment: Speci men Type: BLOOD SPECIMENOrdering Facility: [facility] Address: [address] [place] [address] Performed By: #### 3 4528-0, 61717-4, 3255-7 ####[facility] LABCLIA [id number] [place] [address] [place] BRIEF OP NOTon 09-25-2023 BRIEF OP NOT Normal [facility] CASE MANAGEMon 09-25-2023 CASE MANAGEM Normal [facility] CBC W Auto Differential pane l (Bld)on 09-25-2023 Anisocytosis Ql (Bld) Present Normal [facility] Comment on above: Order Comment: Speci men Type: BLOOD SPECIMENOrdering Facility: [facility] Address: [address] [place] [address] Performed By: #### 5 7021-8 ####[facility] LABCLIA [id number] [place] [address] [place] Basophils (Bld) [#/Vol] 0.00 10*3/uL Normal <0.11 [facility] Comment on above: Order Comment: Speci men Type: BLOOD SPECIMENOrdering Facility: [facility] Address: [address] [place] [address] Performed By: #### 5 7021-8 ####[facility] LABCLIA [id number] [place] [address] [place] Basophils/100 WBC (Bld) 0.0 % Normal [facility] Comment on above: Order Comment: Speci men Type: BLOOD SPECIMENOrdering Facility: [facility] Address: [address] [place] [address] Performed By: #### 5 7021-8 ####[facility] LABCLIA [id number] [place] [address] [place] BLAST% 33.9 % High <=0.0 [facility] Comment on above: Order Comment: Speci men Type: BLOOD SPECIMENOrdering Facility: [facility] Address: [address] [place] [address] Performed By: #### 5 7021-8 ####[facility] LABCLIA [id number] [place] [address] [place] Dacrocytes LM Ql (Bld) Few Normal [facility] Comment on above: Order Comment: Speci men Type: BLOOD SPECIMENOrdering Facility: [facility] Address: [address] [place] [address] Performed By: #### 5 7021-8 ####[facility] LABCLIA [id number] [place] [address] [place] Differential cell count method Nom (Bld) Manual Normal [facility] Comment on above: Order Comment: Speci men Type: BLOOD SPECIMENOrdering Facility: [facility] Address: [address] [place] [address] Performed By: #### 5 7021-8 ####[facility] LABCLIA [id number] [place] [address] [place] Eosinophils (Bld) [#/Vol] 0.00 10*3/uL Normal <0.46 [facility] Comment on above: Order Comment: Speci men Type: BLOOD SPECIMENOrdering Facility: [facility] Address: [address] [place] [address] Performed By: #### 5 7021-8 ####[facility] LABCLIA [id number] [place] [address] [place] Eosinophils/100 WBC (Bld) 0.0 % Normal [facility] Comment on above: Order Comment: Speci men Type: BLOOD SPECIMENOrdering Facility: [facility] Address: [address] [place] [address] Performed By: #### 5 7021-8 ####[facility] LABCLIA [id number] [place] [address] [place] Erythrocyte distribution width (RBC) [Ratio] 20.9 % High 11.5-15.0 [facility] Comment on above: Order Comment: Speci men Type: BLOOD SPECIMENOrdering Facility: [facility] Address: [address] [place] [address] Performed By: #### 5 7021-8 ####[facility] LABIA [id number] [place] [address] [place] Hematocrit (Bld) [Volume fraction] 23.5 % Low 36.0-46.0 [facility] Comment on above: Order Comment: Speci men Type: BLOOD SPECIMENOrdering Facility: [facility] Address: [address] [place] [address] Performed By: #### 5 7021-8 ####[facility] LABIA [id number] [place] [address] [place] Hemoglobin (Bld) [Mass/Vol] 7.8 g/dL Low 11.5-15.5 [facility] Comment on above: Order Comment: Speci men Type: BLOOD SPECIMENOrdering Facility: [facility] Address: [address] [place] [address] Performed By: #### 5 7021-8 ####[facility] LABCLIA [id number] [place] [address] [place] Lymphocytes (Bld) [#/Vol] 0.83 10*3/uL Low 1.00-4.00 [facility] Comment on above: Order Comment: Speci men Type: BLOOD SPECIMENOrdering Facility: [facility] Address: [address] [place] [address] Performed By: #### 5 7021-8 ####[facility] LABIA [id number] [place] [address] [place] Lymphocytes/100 WBC (Bld) 22.3 % Normal [facility] Comment on above: Order Comment: Speci men Type: BLOOD SPECIMENOrdering Facility: [facility] Address: [address] [place] [address] Performed By: #### 5 7021-8 ####[facility] LABIA [id number] [place] [address] [place] MCH (RBC) [Entitic mass] 31.0 pg Normal 26.0-34.0 [facility] Comment on above: Order Comment: Speci men Type: BLOOD SPECIMENOrdering Facility: [facility] Address: [address] [place] [address] Performed By: #### 5 7021-8 ####[facility] LABIA [id number] [place] [address] [place] MCHC (RBC) [Mass/Vol] 33.2 g/dL Normal 30.5-36.0 [facility] Comment on above: Order Comment: Speci men Type: BLOOD SPECIMENOrdering Facility: [facility] Address: [address] [place] [address] Performed By: #### 5 7021-8 ####[facility] LABIA [id number] [place] [address] [place] MCV (RBC) [Entitic vol] 93.3 fL Normal 80.0-100.0 [facility] Comment on above: Order Comment: Speci men Type: BLOOD SPECIMENOrdering Facility: [facility] Address: [address] [place] [address] Performed By: #### 5 7021-8 ####[facility] LABCLIA [id number] [place] [address] [place] Monocytes (Bld) [#/Vol] 0.17 10*3/uL Normal <0.87 [facility] Comment on above: Order Comment: Speci men Type: BLOOD SPECIMENOrdering Facility: [facility] Address: [address] [place] [address] Performed By: #### 5 7021-8 ####[facility] LABCLIA [id number] [place] [address] [place] Monocytes/100 WBC (Bld) 4.5 % Normal [facility] Comment on above: Order Comment: Speci men Type: BLOOD SPECIMENOrdering Facility: [facility] Address: [address] [place] [address] Performed By: #### 5 7021-8 ####[facility] LABCLIA [id number] [place] [address] [place] Neutrophils (Bld) [#/Vol] 1.46 10*3/uL Normal 1.45-7.50 [facility] Comment on above: Order Comment: Speci men Type: BLOOD SPECIMENOrdering Facility: [facility] Address: [address] [place] [address] Performed By: #### 5 7021-8 ####[facility] LABCLIA [id number] [place] [address] [place] Neutrophils/100 WBC (Bld) 39.3 % Normal [facility] Comment on above: Order Comment: Speci men Type: BLOOD SPECIMENOrdering Facility: [facility] Address: [address] [place] [address] Performed By: #### 5 7021-8 ####[facility] LABCLIA [id number] [place] [address] [place] Nucleated RBC (Bld) [#/Vol] 0.03 10*3/uL High <0.01 [facility] Comment on above: Order Comment: Speci men Type: BLOOD SPECIMENOrdering Facility: [facility] Address: [address] [place] [address] Performed By: #### 5 7021-8 ####[facility] LABCLIA [id number] [place] [address] [place] Nucleated RBC/100 WBC (Bld) [Ratio] 0.9 /100 WBC Normal [facility] Comment on above: Order Comment: Speci men Type: BLOOD SPECIMENOrdering Facility: [facility] Address: [address] [place] [address] Performed By: #### 5 7021-8 ####[facility] LABCLIA [id number] [place] [address] [place] Ovalocytes LM Ql (Bld) Few Normal [facility] Comment on above: Order Comment: Speci men Type: BLOOD SPECIMENOrdering Facility: [facility] Address: [address] [place] [address] Performed By: #### 5 7021-8 ####[facility] LABCLIA [id number] [place] [address] [place] Platelet mean volume (Bld) [Entitic vol] 12.1 fL Normal 9.0-12.7 [facility] Comment on above: Order Comment: Speci men Type: BLOOD SPECIMENOrdering Facility: [facility] Address: [address] [place] [address] Performed By: #### 5 7021-8 ####[facility] LABCLIA [id number] [place] [address] [place] Platelets (Bld) [#/Vol] 28 10*3/uL Low 150-400 [facility] Comment on above: Order Comment: Speci men Type: BLOOD SPECIMENOrdering Facility: [facility] Address: [address] [place] [address] Result Comment: Resu lts checked and verified.No clot detected. Performed By: #### 5 7021-8 ####[facility] LABCLIA [id number] [place] [address] [place] Platelets Estimate (Bld) [#/Vol] Decreased Normal [facility] Comment on above: Order Comment: Speci men Type: BLOOD SPECIMENOrdering Facility: [facility] Address: [address] [place] [address] Performed By: #### 5 7021-8 ####[facility] LABCLIA [id number] [place] [address] [place] RBC (Bld) [#/Vol] 2.52 10*6/uL Low 3.90-5.20 [facility] Comment on above: Order Comment: Speci men Type: BLOOD SPECIMENOrdering Facility: [facility] Address: [address] [place] [address] Performed By: #### 5 7021-8 ####[facility] LABCLIA [id number] [place] [address] [place] RBC FRAGMENTS Few Abnormal None Seen [facility] Comment on above: Order Comment: Speci men Type: BLOOD SPECIMENOrdering Facility: [facility] Address: [address] [place] [address] Performed By: #### 5 7021-8 ####[facility] LABIA [id number] [place] [address] [place] RED CELL MORPH Reviewed: see result s of individual morphologies Normal [facility] Comment on above: Order Comment: Speci men Type: BLOOD SPECIMENOrdering Facility: [facility] Address: [address] [place] [address] Performed By: #### 5 7021-8 ####[facility] LABCLIA [id number] [place] [address] [place] WBC (Bld) [#/Vol] 3.71 10*3/uL Normal 3.70-11.00 [facility] Comment on above: Order Comment: Speci men Type: BLOOD SPECIMENOrdering Facility: [facility] Address: [address] [place] [address] Performed By: #### 5 7021-8 ####[facility] LABCLIA [id number] [address] [address] [place] Comprehensive metabolic 2000 panelon 09-25-2023 Albumin [Mass/Vol] 3.0 g/dL Low 3.9-4.9 [facility] Comment on above: Order Comment: Speci men Type: BLOOD SPECIMENOrdering Facility: [facility] Address: [address] [place] [address] Performed By: #### 2 4323-8, 72571-0, 2777-1, 3084-1 ####[facility] LABCLIA [id number] [place] [address] [place] ALP [Catalytic activity/Vol] 72 U/L Normal 34-123 [facility] Comment on above: Order Comment: Speci men Type: BLOOD SPECIMENOrdering Facility: [facility] Address: [address] [place] [address] Performed By: #### 2 4323-8, 31123-4, 2777-1, 3084-1 ####[facility] LABIA [id number] [place] [address] [place] ALT [Catalytic activity/Vol] 25 U/L Normal 7-38 [facility] Comment on above: Order Comment: Speci men Type: BLOOD SPECIMENOrdering Facility: [facility] Address: [address] [place] [address] Performed By: #### 2 4323-8, 11400-3, 7-1, 3084-1 ####[facility] LABCLIA [id number] [address] [address] [place] Anion gap [Moles/Vol] 10 mmol/L Normal 9-18 [facility] Comment on above: Order Comment: Speci men Type: BLOOD SPECIMENOrdering Facility: [facility] Address: [address] [place] [address] Performed By: #### 2 4323-8, 84731-9, 2776-, 308-1 ####[facility] LABCLIA [id number] [address] [address] [place] AST [Catalytic activity/Vol] 25 U/L Normal 13-35 [facility] Comment on above: Order Comment: Speci men Type: BLOOD SPECIMENOrdering Facility: [facility] Address: [address] [place] [address] Performed By: #### 2 4323-8, 78516-9, 2776-, 308-1 ####[facility] LABCLIA [id number] [place] [address] [place] Bilirubin [Mass/Vol] 0.7 mg/dL Normal 0.2-1.3 [facility] Comment on above: Order Comment: Speci men Type: BLOOD SPECIMENOrdering Facility: [facility] Address: [address] [place] [address] Performed By: #### 2 4323-8, 03103-8, 2776-07, 308-1 ####[facility] LABCLIA [id number] [place] [id number] [place] Calcium [Mass/Vol] 8.6 mg/dL Normal 8.5-10.2 [facility] Comment on above: Order Comment: Speci men Type: BLOOD SPECIMENOrdering Facility: [facility] Address: [address] [place] [address] Performed By: #### 2 4323-8, 81200-3, 2776-, 308-1 ####[facility] LABCLIA [id number] [address] [address] [place] Chloride [Moles/Vol] 106 mmol/L High 97-105 [facility] Comment on above: Order Comment: Speci men Type: BLOOD SPECIMENOrdering Facility: [facility] Address: [address] [place], [place] [address] Performed By: #### 2 4323-8, 08267-8, 2776-, 3084-1 ####[facility] LABCLIA [id number] [address] [address] [place] CO2 [Moles/Vol] 23 mmol/L Normal 22-30 [facility] Comment on above: Order Comment: Speci men Type: BLOOD SPECIMENOrdering Facility: [facility] Address: [address] [place] [address] Performed By: #### 2 4323-8, 45944-6, 2776-, 3084-1 ####[facility] LABCLIA [id number] [place] [id number] [place] Creatinine [Mass/Vol] 0.57 mg/dL Low 0.58-0.96 [facility] Comment on above: Order Comment: Speci men Type: BLOOD SPECIMENOrdering Facility: [facility] Address: [address] [place] [address] Performed By: #### 2 4323-8, 75780-2, 2776-07, 308-1 ####[facility] LABIA [id number] [place] [id number] [place] Creatinine and Glomerular filtration rate.predicted panel (S/P/Bld) 91 mL/min/1.73m??? Normal >=60 [facility] Comment on above: Order Comment: Speci men Type: BLOOD SPECIMENOrdering Facility: [facility] Address: [address] [place] [address] Result Comment: Akiko mated Glomerular Filtration Rate [...] actual GFR. Performed By: #### 2 4323-8, 35338-4, 2776-07, 3083- ####[facility] LABCLIA [id number] [address] [address] [place] Glucose [Mass/Vol] 97 mg/dL Normal 74-99 [facility] Comment on above: Order Comment: Qi reynolds Type: BLOOD SPECIMENOrdering Facility: [facility] Address: [address] [place] [address] Result Comment: The [place] [employer] (ADA) provides guidance for cutoff [...] Standards of Medical Care in Diabetes 2016, [place] [employer]. Diabetes Care. 2016.39(Suppl 1). Performed By: #### 2 4323-8, , 2776-07, 3083-07 ####[facility] LABCLIA [id number] [address] [address] [place] Potassium [Moles/Vol] 3.6 mmol/L Low 3.7-5.1 [facility] Comment on above: Order Comment: Qi reynolds Type: BLOOD SPECIMENOrdering Facility: [facility] Address: [address] [place] [address] Performed By: #### 2 4323-8, , 2776-07, 3083-07 ####[facility] LABCLIA [id number] [address] [address] [place] Protein [Mass/Vol] 5.3 g/dL Low 6.3-8.0 [facility] Comment on above: Order Comment: Speci men Type: BLOOD SPECIMENOrdering Facility: [facility] Address: [address] [place] [address] Performed By: #### 2 4323-8, 07370-5, 2777-1, 3084-1 ####[facility] LABCLIA [id number] [place] [address] [place] Sodium [Moles/Vol] 139 mmol/L Normal 136-144 [facility] Comment on above: Order Comment: Speci men Type: BLOOD SPECIMENOrdering Facility: [facility] Address: [address] [place] [address] Performed By: #### 2 4323-8, 37465-2, 2777-1, 3084-1 ####[facility] LABCLIA [id number] [place] [address] [place] Urea nitrogen [Mass/Vol] 11 mg/dL Normal 7-21 [facility] Comment on above: Order Comment: Speci men Type: BLOOD SPECIMENOrdering Facility: [facility] Address: [address] [place] [address] Performed By: #### 2 4323-8, 29814-4, 2777-1, 3084-1 ####[facility] LABIA [id number] [place] [address] [place] Fibrinogen PPP-mCncon 2023 Fibrinogen Coag (PPP) [Mass/Vol] 539 mg/dL High 200-400 [facility] Comment on above: Order Comment: Speci men Type: BLOOD SPECIMENOrdering Facility: [facility] Address: [address] [place] [address] Result Comment: Resu lt rechecked.Sample checked for clot. Performed By: #### 3 255-7, 14597-8, 94871-5 ####[facility] LABCLIA [id number] [place] [address] [place] HISTORY PHYSICALon HISTORY PHYSICAL Normal [facility] IR PORTOCATH PLACEMENTon IR PORTOCATH PLACEMENT Normal [facility] Magnesium SerPl-mCncon 09-24 Magnesium [Mass/Vol] 2.4 mg/dL High 1.7-2.3 [facility] Comment on above: Order Comment: Speci men Type: BLOOD SPECIMENOrdering Facility: [facility] Address: [address] [place] [address] Performed By: #### 2 4323-8, 57806-9, 2777-1, 3084-1 ####[facility] LABCLIA [id number] [address] [place] PT EDon 09-25-2023 PT ED Normal [facility] PT panel Coag (PPP)on 2023 INR Coag (PPP) [Relative time] 1.2 {INR} Normal 0.9-1.3 [facility] Comment on above: Order Comment: Speci men Type: BLOOD SPECIMENOrdering Facility: [facility] Address: [address] [place] [address] Result Comment: Clementine min K Antagonist (VKA) Therapeutic Range: INR 2 to 3 (Target INR of 2.5)Note: For patients treated with VKA drugs, such as warfarin, the [place] [employer] 2012 Guideline recommends [...] of 3).Collins HUTCHINS, et al. Chest 2012, 141:7S-47SNishfabrizio RA, et al. JACC 2017, 70: 252-289 Performed By: #### 3 255-7, 68471-5, 74192-8 ####[facility] LABCLIA [id number] [place] [id number] [place] PT Coag (PPP) [Time] 12.9 s Normal 9.7-13.0 [facility] Comment on above: Order Comment: Speci men Type: BLOOD SPECIMENOrdering Facility: [facility] Address: [address] [place] [address] Performed By: #### 3 255-7, 88381-7, 27986-2 ####[facility] LABCLIA [id number] [place] [id number] [place] Phosphate SerPl-mCncon 09-24 Phosphate [Mass/Vol] 1.9 mg/dL Low 2.7-4.8 [facility] Comment on above: Order Comment: Speci men Type: BLOOD SPECIMENOrdering Facility: [facility] Address: [address] [place] [address] Performed By: #### 2 4323-8, 30655-5, 2777-1, 3084-1 ####[facility] LABIA [id number] [place] [id number] [place] SOCIAL WORKon 09-25-2023 SOCIAL WORK Normal [facility] Urate SerPl-ncon Urate [Mass/Vol] 1.8 mg/dL Low 2.5-6.6 [facility] Comment on above: Order Comment: Speci men Type: BLOOD SPECIMENOrdering Facility: [facility] Address: [address] [place], [place] [id number] Performed By: #### 2 4323-8, 95203-2, 2777-1, 3084-1 ####[facility] LABIA [id number] [address] [address] [place] aPTT PPPon 09-25-2023 aPTT Coag (PPP) [Time] 36.2 s High 23.0-32.4 [facility] Comment on above: Order Comment: Speci men Type: BLOOD SPECIMENOrdering Facility: [facility] Address: [address] [place] [address] Performed By: #### 3 255-7, 20411-4, 32412-2 ####[facility] LABCLIA [id number] [place] [address] [place] ALLIED HEALTHon 09-24-2023 ALLIED HEALTH Normal [facility] CASE MANAGEMon 09-24-2023 CASE MANAGEM Normal [facility] CBC W Auto Differential pane l (Bld)on 09-24-2023 Anisocytosis Ql (Bld) Present Normal [facility] Comment on above: Order Comment: Speci men Type: BLOOD SPECIMENOrdering Facility: [facility] Address: [address] [place] [address] Performed By: #### 5 7021-8 ####[facility] LABCLIA [id number] [place] [address] [place] Basophils (Bld) [#/Vol] 0.00 10*3/uL Normal <0.11 [facility] Comment on above: Order Comment: Speci men Type: BLOOD SPECIMENOrdering Facility: [facility] Address: [address] [place] [address] Performed By: #### 5 7021-8 ####[facility] LABCLIA [id number] [place] [address] [place] Basophils/100 WBC (Bld) 0.0 % Normal [facility] Comment on above: Order Comment: Speci men Type: BLOOD SPECIMENOrdering Facility: [facility] Address: [address] [place] [address] Performed By: #### 5 7021-8 ####[facility] LABCLIA [id number] [place] [address] [place] BLAST% 60.0 % High <=0.0 [facility] Comment on above: Order Comment: Speci men Type: BLOOD SPECIMENOrdering Facility: [facility] Address: [address] [place] [address] Performed By: #### 5 7021-8 ####[facility] LABCLIA [id number] [place] [address] [place] Dacrocytes LM Ql (Bld) Few Normal [facility] Comment on above: Order Comment: Speci men Type: BLOOD SPECIMENOrdering Facility: [facility] Address: [address] [place] [address] Performed By: #### 5 7021-8 ####[facility] LABCLIA [id number] [place] [address] [place] Differential cell count method Nom (Bld) Manual Normal [facility] Comment on above: Order Comment: Speci men Type: BLOOD SPECIMENOrdering Facility: [facility] Address: [address] [place] [address] Performed By: #### 5 7021-8 ####[facility] LABCLIA [id number] [place] [address] [place] Eosinophils (Bld) [#/Vol] 0.00 10*3/uL Normal <0.46 [facility] Comment on above: Order Comment: Speci men Type: BLOOD SPECIMENOrdering Facility: [facility] Address: [address] [place] [address] Performed By: #### 5 7021-8 ####[facility] LABCLIA [id number] [place] [address] [place] Eosinophils/100 WBC (Bld) 0.0 % Normal [facility] Comment on above: Order Comment: Speci men Type: BLOOD SPECIMENOrdering Facility: [facility] Address: [address] [place] [address] Performed By: #### 5 7021-8 ####[facility] LABCLIA [id number] [place] [address] [place] Erythrocyte distribution width (RBC) [Ratio] 21.8 % High 11.5-15.0 [facility] Comment on above: Order Comment: Speci men Type: BLOOD SPECIMENOrdering Facility: [facility] Address: [address] [place] [address] Performed By: #### 5 7021-8 ####[facility] LABCLIA [id number] [place] [address] [place] Hematocrit (Bld) [Volume fraction] 19.9 % Low 36.0-46.0 [facility] Comment on above: Order Comment: Speci men Type: BLOOD SPECIMENOrdering Facility: [facility] Address: [address] [place] [address] Performed By: #### 5 7021-8 ####[facility] LABCLIA [id number] [place] [address] [place] Hemoglobin (Bld) [Mass/Vol] 6.5 g/dL Low 11.5-15.5 [facility] Comment on above: Order Comment: Speci men Type: BLOOD SPECIMENOrdering Facility: [facility] Address: [address] [place] [address] Performed By: #### 5 7021-8 ####[facility] LABCLIA [id number] [place] [address] [place] Lymphocytes (Bld) [#/Vol] 0.93 10*3/uL Low 1.00-4.00 [facility] Comment on above: Order Comment: Speci men Type: BLOOD SPECIMENOrdering Facility: [facility] Address: [address] [place] [address] Performed By: #### 5 7021-8 ####[facility] LABCLIA [id number] [place] [address] [place] Lymphocytes/100 WBC (Bld) 22.0 % Normal [facility] Comment on above: Order Comment: Speci men Type: BLOOD SPECIMENOrdering Facility: [facility] Address: [address] [place] [address] Performed By: #### 5 7021-8 ####[facility] LABCLIA [id number] [place] [address] [place] MCH (RBC) [Entitic mass] 31.0 pg Normal 26.0-34.0 [facility] Comment on above: Order Comment: Speci men Type: BLOOD SPECIMENOrdering Facility: [facility] Address: [address] [place] [address] Performed By: #### 5 7021-8 ####[facility] LABIA [id number] [place] [address] [place] MCHC (RBC) [Mass/Vol] 32.7 g/dL Normal 30.5-36.0 [facility] Comment on above: Order Comment: Speci men Type: BLOOD SPECIMENOrdering Facility: [facility] Address: [address] [place] [address] Performed By: #### 5 7021-8 ####[facility] LABIA [id number] [place] [address] [place] MCV (RBC) [Entitic vol] 94.8 fL Normal 80.0-100.0 [facility] Comment on above: Order Comment: Speci men Type: BLOOD SPECIMENOrdering Facility: [facility] Address: [address] [place] [address] Performed By: #### 5 7021-8 ####[facility] LABCLIA [id number] [place] [address] [place] Metamyelocytes/100 WBC (Bld) 1.0 % Normal [facility] Comment on above: Order Comment: Speci men Type: BLOOD SPECIMENOrdering Facility: [facility] Address: [address] [place] [address] Performed By: #### 5 7021-8 ####[facility] LABCLIA [id number] [place] [address] [place] Monocytes (Bld) [#/Vol] 0.00 10*3/uL Normal <0.87 [facility] Comment on above: Order Comment: Speci men Type: BLOOD SPECIMENOrdering Facility: [facility] Address: [address] [place] [address] Performed By: #### 5 7021-8 ####[facility] LABCLIA [id number] [place] [address] [place] Monocytes/100 WBC (Bld) 0.0 % Normal [facility] Comment on above: Order Comment: Speci men Type: BLOOD SPECIMENOrdering Facility: [facility] Address: [address] [place] [address] Performed By: #### 5 7021-8 ####[facility] LABCLIA [id number] [place] [address] [place] Neutrophils (Bld) [#/Vol] 0.72 10*3/uL Low 1.45-7.50 [facility] Comment on above: Order Comment: Speci men Type: BLOOD SPECIMENOrdering Facility: [facility] Address: [address] [place] [address] Performed By: #### 5 7021-8 ####[facility] LABCLIA [id number] [place] [address] [place] Neutrophils/100 WBC (Bld) 17.0 % Normal [facility] Comment on above: Order Comment: Speci men Type: BLOOD SPECIMENOrdering Facility: [facility] Address: [address] [place] [address] Performed By: #### 5 7021-8 ####[facility] LABCLIA [id number] [place] [address] [place] Nucleated RBC (Bld) [#/Vol] 10*3/uL Normal <0.01 [facility] Comment on above: Order Comment: Speci men Type: BLOOD SPECIMENOrdering Facility: [facility] Address: [address] [place] [address] Performed By: #### 5 7021-8 ####[facility] LABCLIA [id number] [place] [address] [place] Nucleated RBC/100 WBC (Bld) [Ratio] 0.0 /100 WBC Normal [facility] Comment on above: Order Comment: Speci men Type: BLOOD SPECIMENOrdering Facility: [facility] Address: [address] [place] [address] Performed By: #### 5 7021-8 ####[facility] LABCLIA [id number] [place] [address] [place] Ovalocytes LM Ql (Bld) Few Normal [facility] Comment on above: Order Comment: Speci men Type: BLOOD SPECIMENOrdering Facility: [facility] Address: [address] [place] [address] Performed By: #### 5 7021-8 ####[facility] LABCLIA [id number] [place] [address] [place] Platelet mean volume (Bld) [Entitic vol] Normal [facility] Comment on above: Order Comment: Speci men Type: BLOOD SPECIMENOrdering Facility: [facility] Address: [address] [place] [address] Result Comment: Unab le to Report. Performed By: #### 5 7021-8 ####[facility] LABCLIA [id number] [place] [address] [place] Platelets (Bld) [#/Vol] 3 10*3/uL Critically low 150-400 [facility] Comment on above: Order Comment: Speci men Type: BLOOD SPECIMENOrdering Facility: [facility] Address: [address] [place] [address] Result Comment: Resu lts checked and verified.No clot detected. Performed By: #### 5 7021-8 ####[facility] LABCLIA [id number] [place] [address] [place] Platelets Estimate (Bld) [#/Vol] Decreased Normal [facility] Comment on above: Order Comment: Speci men Type: BLOOD SPECIMENOrdering Facility: [facility] Address: [address] [place] [address] Performed By: #### 5 7021-8 ####[facility] LABCLIA [id number] [place] [address] [place] Polychromasia LM Ql (Bld) Slight Normal [facility] Comment on above: Order Comment: Speci men Type: BLOOD SPECIMENOrdering Facility: [facility] Address: [address] [place] [address] Performed By: #### 5 7021-8 ####[facility] LABCLIA [id number] [place] [address] [place] RBC (Bld) [#/Vol] 2.10 10*6/uL Low 3.90-5.20 [facility] Comment on above: Order Comment: Speci men Type: BLOOD SPECIMENOrdering Facility: [facility] Address: [address] [place] [address] Performed By: #### 5 7021-8 ####[facility] LABCLIA [id number] [place] [address] [place] RBC FRAGMENTS Few Abnormal None Seen [facility] Comment on above: Order Comment: Speci men Type: BLOOD SPECIMENOrdering Facility: [facility] Address: [address] [place] [address] Performed By: #### 5 7021-8 ####[facility] LABIA [id number] [place] [address] [place] RED CELL MORPH Reviewed: see result s of individual morphologies Normal [facility] Comment on above: Order Comment: Speci men Type: BLOOD SPECIMENOrdering Facility: [facility] Address: [address] [place] [address] Performed By: #### 5 7021-8 ####[facility] LABCLIA [id number] [place] [address] [place] SPHEROCYTES Few Normal [facility] Comment on above: Order Comment: Speci men Type: BLOOD SPECIMENOrdering Facility: [facility] Address: [address] [place] [address] Performed By: #### 5 7021-8 ####[facility] LABCLIA [id number] [place] [address] [place] WBC (Bld) [#/Vol] 4.22 10*3/uL Normal 3.70-11.00 [facility] Comment on above: Order Comment: Speci men Type: BLOOD SPECIMENOrdering Facility: [facility] Address: [address] [place] [address] Performed By: #### 5 7021-8 ####[facility] LABCLIA [id number] [place] [address] [place] WBC Left Shift Ql (Bld) Present Normal [facility] Comment on above: Order Comment: Speci men Type: BLOOD SPECIMENOrdering Facility: [facility] Address: [address] [place] [address] Performed By: #### 5 7021-8 ####[facility] LABCLIA [id number] [place] [address] [place] Comprehensive metabolic 2000 panelon 09-24-2023 Albumin [Mass/Vol] 2.8 g/dL Low 3.9-4.9 [facility] Comment on above: Order Comment: Speci men Type: BLOOD SPECIMENOrdering Facility: [facility] Address: [address] [place] [address] Performed By: #### 2 4323-8, 77464-4, 3084-1, 2777-1 ####[facility] LABCLIA [id number] [place] [address] [place] ALP [Catalytic activity/Vol] 60 U/L Normal 34-123 [facility] Comment on above: Order Comment: Speci men Type: BLOOD SPECIMENOrdering Facility: [facility] Address: [address] [place] [address] Performed By: #### 2 4323-8, 50420-5, 3084-1, 2777-1 ####[facility] LABCLIA [id number] [place] [address] [place] ALT [Catalytic activity/Vol] 22 U/L Normal 7-38 [facility] Comment on above: Order Comment: Speci men Type: BLOOD SPECIMENOrdering Facility: [facility] Address: [address] [place] [address] Performed By: #### 2 4323-8, 38452-3, 308-1, 277-1 ####[facility] LABCLIA [id number] [place] [address] [place] Anion gap [Moles/Vol] 8 mmol/L Low 9-18 [facility] Comment on above: Order Comment: Speci men Type: BLOOD SPECIMENOrdering Facility: [facility] Address: [address] [place] [address] Performed By: #### 2 4323-8, 56649-0, 308-1, 277-1 ####[facility] LABCLIA [id number] [place] [address] [place] AST [Catalytic activity/Vol] 20 U/L Normal 13-35 [facility] Comment on above: Order Comment: Speci men Type: BLOOD SPECIMENOrdering Facility: [facility] Address: [address] [place] [address] Performed By: #### 2 4323-8, 59831-7, 3084-1, 2777-1 ####[facility] LABCLIA [id number] [place] [id number] [place] Bilirubin [Mass/Vol] 0.5 mg/dL Normal 0.2-1.3 [facility] Comment on above: Order Comment: Speci men Type: BLOOD SPECIMENOrdering Facility: [facility] Address: [address] [place] [address] Performed By: #### 2 4323-8, 68100-4, 3084-1, 2777-1 ####[facility] LABCLIA [id number] [place] [address] [place] Calcium [Mass/Vol] 8.3 mg/dL Low 8.5-10.2 [facility] Comment on above: Order Comment: Speci men Type: BLOOD SPECIMENOrdering Facility: [facility] Address: [address] [place] [address] Performed By: #### 2 4323-8, 31301-7, 3084-1, 2776-1 ####[facility] LABCLIA [id number] [place] [address] [place] Chloride [Moles/Vol] 104 mmol/L Normal 97-105 [facility] Comment on above: Order Comment: Speci men Type: BLOOD SPECIMENOrdering Facility: [facility] Address: [address] [place] [address] Performed By: #### 2 4323-8, 20092-7, 3084-1, 277-1 ####[facility] LABCLIA [id number] [place] [address] [place] CO2 [Moles/Vol] 26 mmol/L Normal 22-30 [facility] Comment on above: Order Comment: Speci men Type: BLOOD SPECIMENOrdering Facility: [facility] Address: [address] [place] [address] Performed By: #### 2 4323-8, 62002-1, 3084-1, 2777-1 ####[facility] LABCLIA [id number] [place] [address] [place] Creatinine [Mass/Vol] 0.60 mg/dL Normal 0.58-0.96 [facility] Comment on above: Order Comment: Qi reynolds Type: BLOOD SPECIMENOrdering Facility: [facility] Address: [address] [place] [address] Performed By: #### 2 4323-8, 82145-4, 3084-1, 2777-1 ####[facility] LABCLIA [id number] [address] [facility] Creatinine and Glomerular filtration rate.predicted panel (S/P/Bld) 90 mL/min/1.73m??? Normal >=60 [facility] Comment on above: Order Comment: Qi reynolds Type: BLOOD SPECIMENOrdering Facility: [facility] Address: [address] [place] [address] Result Comment: Akiko mated Glomerular Filtration Rate [...] actual GFR. Performed By: #### 2 4323-8, 00984-8, 3084-1, 2777-1 ####[facility] LABCLIA [id number] [place] [address] [place] Glucose [Mass/Vol] 89 mg/dL Normal 74-99 [facility] Comment on above: Order Comment: Qi reynolds Type: BLOOD SPECIMENOrdering Facility: [facility] Address: [address] [place] [address] Result Comment: The [place] [employer] (ADA) provides guidance for cutoff [...] Standards of Medical Care in Diabetes 2016, [place] [employer]. Diabetes Care. 2016.39(Suppl 1). Performed By: #### 2 4323-8, 14810-8, 3084-1, 2777-1 ####[facility] LABCLIA [id number] [place] [address] [place] Potassium [Moles/Vol] 3.2 mmol/L Low 3.7-5.1 [facility] Comment on above: Order Comment: Speci men Type: BLOOD SPECIMENOrdering Facility: [facility] Address: [address] [place] [address] Performed By: #### 2 4323-8, 42574-1, 3083-, 2776- ####[facility] LABIA [id number] [place] [address] [place] Protein [Mass/Vol] 4.9 g/dL Low 6.3-8.0 [facility] Comment on above: Order Comment: Qi reynolds Type: BLOOD SPECIMENOrdering Facility: [facility] Address: [address] [place] [address] Performed By: #### 2 4323-8, 34457-6, 3083-, 2776- ####[facility] LABIA [id number] [place] [id number] [place] Sodium [Moles/Vol] 138 mmol/L Normal 136-144 [facility] Comment on above: Order Comment: Nikkii men Type: BLOOD SPECIMENOrdering Facility: [facility] Address: [address] [place] [address] Performed By: #### 2 4323-8, 05919-4, 3084-1, 2777-1 ####[facility] LABCLIA [id number] [place] [id number] [place] Urea nitrogen [Mass/Vol] 11 mg/dL Normal 7-21 [facility] Comment on above: Order Comment: Speci men Type: BLOOD SPECIMENOrdering Facility: [facility] Address: [address] [place] [address] Performed By: #### 2 4323-8, 34725-9, 3084-1, 2777-1 ####[facility] LABCLIA [id number] [place] [address] [place] Fibrinogen PPP-mCncon 2023 Fibrinogen Coag (PPP) [Mass/Vol] 523 mg/dL High 200-400 [facility] Comment on above: Order Comment: Speci men Type: BLOOD SPECIMENOrdering Facility: [facility] Address: [address] [place] [address] Performed By: #### 3 255-7, 96971-8, 69519-5 ####[facility] LABCLIA [id number] [place] [address] [place] Magnesium SerPl-mCncon 09-23 Magnesium [Mass/Vol] 2.3 mg/dL Normal 1.7-2.3 [facility] Comment on above: Order Comment: Speci men Type: BLOOD SPECIMENOrdering Facility: [facility] Address: [address] [place] [address] Performed By: #### 2 4323-8, 72810-7, 3084-1, 2777-1 ####[facility] LABCLIA [id number] [place] [id number] [place] NURSING PROGon 09-24-2023 NURSING PROG Normal [facility] PT panel Coag (PPP)on 2023 INR Coag (PPP) [Relative time] 1.3 {INR} Normal 0.9-1.3 [facility] Comment on above: Order Comment: Speci men Type: BLOOD SPECIMENOrdering Facility: [facility] Address: [address] [place] [address] Result Comment: Clementine min K Antagonist (VKA) Therapeutic Range: INR 2 to 3 (Target INR of 2.5)Note: For patients treated with VKA drugs, such as warfarin, the [place] [employer] 2012 Guideline recommends [...] al. Chest 2012, 141:7S-47SKenny RA, et al. [facility] 2017, 70: 252-289 Performed By: #### 3 255-7, 94315-7, 43904-8 ####[facility] [id number] [place] [address] [place] PT Coag (PPP) [Time] 13.9 s High 9.7-13.0 [facility] Comment on above: Order Comment: Speci men Type: BLOOD SPECIMENOrdering Facility: [facility] Address: [address] [place] [address] Performed By: #### 3 255-7, 29248-7, 64268-2 ####[facility] [id number] [place] [id number] [place] Phosphate SerPl-mCncon 09-23 Phosphate [Mass/Vol] 2.8 mg/dL Normal 2.7-4.8 [facility] Comment on above: Order Comment: Speci men Type: BLOOD SPECIMENOrdering Facility: [facility] Address: [address] [place] [address] Performed By: #### 2 4323-8, 46693-4, 3084-1, 2777-1 ####[facility] LABCLIA [id number] [place] [id number] [place] TYPE + SCREENon 09-24-2023 HISTORICAL AB SCR STATUS Positive Abnormal [facility] Comment on above: Order Comment: Speci men Type: BLOOD SPECIMENOrdering Facility: [facility] Address: [address] [place] [address] Performed By: #### T SCR ####[facility] BLOOD BANKIA [id number] [place] [address] [place] TYPE AND SCREEN EXPIRATION 09/27/2023 23:59 Normal [facility] Comment on above: Order Comment: Speci men Type: BLOOD SPECIMENOrdering Facility: [facility] Address: [address] [place] [address] Performed By: #### T SCR ####[facility] BLOOD BANKCLIA [id number] [place] [address] [place] Urate SerPl-mCncon Urate [Mass/Vol] 2.1 mg/dL Low 2.5-6.6 [facility] Comment on above: Order Comment: Speci men Type: BLOOD SPECIMENOrdering Facility: [facility] Address: [address] [place] [address] Performed By: #### 2 4323-8, 61985-0, 3084-1, 2777-1 ####[facility] LABCLIA [id number] [place] [address] [place] aPTT PPPon 09-24-2023 aPTT Coag (PPP) [Time] 38.2 s High 23.0-32.4 [facility] Comment on above: Order Comment: Speci men Type: BLOOD SPECIMENOrdering Facility: [facility] Address: [address] [place] [address] Performed By: #### 3 255-7, 76198-5, 87553-6 ####[facility] LABCLIA [id number] [place] [address] [place] BMT REC INIT W/Uon ALLOGEN RESULTS TO FOLLOW See Allogen report to follow Normal [facility] Comment on above: Order Comment: Speci men Type: BLOOD SPECIMENOrdering Facility: [facility] Address: [address] [place] [address] Performed By: #### B MTRIW ####[facility] LABORATORIESCLIA [id number] [place] [address] [place] CBC W Auto Differential pane l (Bld)on 09-23-2023 Anisocytosis Ql (Bld) Present Normal [facility] Comment on above: Order Comment: Speci men Type: BLOOD SPECIMENOrdering Facility: [facility] Address: [address] [place] [address] Performed By: #### 5 7021-8 ####[facility] LABCLIA [id number] [place] [address] [place] Basophilic stippling LM Ql (Bld) Occasional Normal [facility] Comment on above: Order Comment: Speci men Type: BLOOD SPECIMENOrdering Facility: [facility] Address: [address] [place] [address] Performed By: #### 5 7021-8 ####[facility] LABCLIA [id number] [place] [address] [place] Basophils (Bld) [#/Vol] 0.00 10*3/uL Normal <0.11 [facility] Comment on above: Order Comment: Speci men Type: BLOOD SPECIMENOrdering Facility: [facility] Address: [address] [place] [address] Performed By: #### 5 7021-8 ####[facility] LABCLIA [id number] [place] [address] [place] Basophils/100 WBC (Bld) 0.0 % Normal [facility] Comment on above: Order Comment: Speci men Type: BLOOD SPECIMENOrdering Facility: [facility] Address: [address] [place] [address] Performed By: #### 5 7021-8 ####[facility] LABCLIA [id number] [place] [address] [place] BLAST% 63.0 % High <=0.0 [facility] Comment on above: Order Comment: Speci men Type: BLOOD SPECIMENOrdering Facility: [facility] Address: [address] [place] [address] Performed By: #### 5 7021-8 ####[facility] LABCLIA [id number] [place] [address] [place] Dacrocytes LM Ql (Bld) Few Normal [facility] Comment on above: Order Comment: Speci men Type: BLOOD SPECIMENOrdering Facility: [facility] Address: [address] [place] [address] Performed By: #### 5 7021-8 ####[facility] LABCLIA [id number] [place] [address] [place] Differential cell count method Nom (Bld) Manual Normal [facility] Comment on above: Order Comment: Speci men Type: BLOOD SPECIMENOrdering Facility: [facility] Address: [address] [place] [address] Performed By: #### 5 7021-8 ####[facility] LABCLIA [id number] [place] [address] [place] Eosinophils (Bld) [#/Vol] 0.00 10*3/uL Normal <0.46 [facility] Comment on above: Order Comment: Speci men Type: BLOOD SPECIMENOrdering Facility: [facility] Address: [address] [place] [address] Performed By: #### 5 7021-8 ####[facility] LABCLIA [id number] [place] [address] [place] Eosinophils/100 WBC (Bld) 0.0 % Normal [facility] Comment on above: Order Comment: Speci men Type: BLOOD SPECIMENOrdering Facility: [facility] Address: [address] [place] [address] Performed By: #### 5 7021-8 ####[facility] LABCLIA [id number] [place] [address] [place] Erythrocyte distribution width (RBC) [Ratio] 22.2 % High 11.5-15.0 [facility] Comment on above: Order Comment: Speci men Type: BLOOD SPECIMENOrdering Facility: [facility] Address: [address] [place] [address] Performed By: #### 5 7021-8 ####[facility] LABIA [id number] [place] [address] [place] Hematocrit (Bld) [Volume fraction] 22.7 % Low 36.0-46.0 [facility] Comment on above: Order Comment: Speci men Type: BLOOD SPECIMENOrdering Facility: [facility] Address: [address] [place] [address] Performed By: #### 5 7021-8 ####[facility] LABIA [id number] [place] [address] [place] Hemoglobin (Bld) [Mass/Vol] 7.7 g/dL Low 11.5-15.5 [facility] Comment on above: Order Comment: Speci men Type: BLOOD SPECIMENOrdering Facility: [facility] Address: [address] [place] [address] Performed By: #### 5 7021-8 ####[facility] LABIA [id number] [place] [address] [place] Lymphocytes (Bld) [#/Vol] 1.52 10*3/uL Normal 1.00-4.00 [facility] Comment on above: Order Comment: Speci men Type: BLOOD SPECIMENOrdering Facility: [facility] Address: [address] [place] [address] Performed By: #### 5 7021-8 ####[facility] LABIA [id number] [place] [address] [place] Lymphocytes/100 WBC (Bld) 13.0 % Normal [facility] Comment on above: Order Comment: Speci men Type: BLOOD SPECIMENOrdering Facility: [facility] Address: [address] [place] [address] Performed By: #### 5 7021-8 ####[facility] [id number] [place] [address] [place] MCH (RBC) [Entitic mass] 32.1 pg Normal 26.0-34.0 [facility] Comment on above: Order Comment: Speci men Type: BLOOD SPECIMENOrdering Facility: [facility] Address: [address] [place] [address] Performed By: #### 5 7021-8 ####[facility] [id number] [place] [address] [place] MCHC (RBC) [Mass/Vol] 33.9 g/dL Normal 30.5-36.0 [facility] Comment on above: Order Comment: Speci men Type: BLOOD SPECIMENOrdering Facility: [facility] Address: [address] [place] [address] Performed By: #### 5 7021-8 ####[facility] LABIA [id number] [place] [address] [place] MCV (RBC) [Entitic vol] 94.6 fL Normal 80.0-100.0 [facility] Comment on above: Order Comment: Speci men Type: BLOOD SPECIMENOrdering Facility: [facility] Address: [address] [place] [address] Performed By: #### 5 7021-8 ####[facility] LABIA [id number] [place] [id number] [place] Monocytes (Bld) [#/Vol] 0.35 10*3/uL Normal <0.87 [facility] Comment on above: Order Comment: Speci men Type: BLOOD SPECIMENOrdering Facility: [facility] Address: [address] [place] [address] Performed By: #### 5 7021-8 ####[facility] LABCLIA [id number] [place] [address] [place] Monocytes/100 WBC (Bld) 3.0 % Normal [facility] Comment on above: Order Comment: Speci men Type: BLOOD SPECIMENOrdering Facility: [facility] Address: [address] [place] [address] Performed By: #### 5 7021-8 ####[facility] LABCLIA [id number] [place] [address] [place] MYELO% 1.0 % Normal [facility] Comment on above: Order Comment: Speci men Type: BLOOD SPECIMENOrdering Facility: [facility] Address: [address] [place] [address] Performed By: #### 5 7021-8 ####[facility] LABCLIA [id number] [place] [address] [place] Neutrophils (Bld) [#/Vol] 2.33 10*3/uL Normal 1.45-7.50 [facility] Comment on above: Order Comment: Speci men Type: BLOOD SPECIMENOrdering Facility: [facility] Address: [address] [place] [address] Performed By: #### 5 7021-8 ####[facility] LABCLIA [id number] [place] [address] [place] Neutrophils/100 WBC (Bld) 20.0 % Normal [facility] Comment on above: Order Comment: Speci men Type: BLOOD SPECIMENOrdering Facility: [facility] Address: [address] [place] [address] Performed By: #### 5 7021-8 ####[facility] LABCLIA [id number] [place] [address] [place] Nucleated RBC (Bld) [#/Vol] 0.12 10*3/uL High <0.01 [facility] Comment on above: Order Comment: Speci men Type: BLOOD SPECIMENOrdering Facility: [facility] Address: [address] [place] [address] Performed By: #### 5 7021-8 ####[facility] LABCLIA [id number] [place] [address] [place] Nucleated RBC/100 WBC (Bld) [Ratio] 1.0 /100 WBC Normal [facility] Comment on above: Order Comment: Speci men Type: BLOOD SPECIMENOrdering Facility: [facility] Address: [address] [place] [address] Performed By: #### 5 7021-8 ####[facility] LABCLIA [id number] [place] [address] [place] Ovalocytes LM Ql (Bld) Few Normal [facility] Comment on above: Order Comment: Speci men Type: BLOOD SPECIMENOrdering Facility: [facility] Address: [address] [place] [address] Performed By: #### 5 7021-8 ####[facility] LABCLIA [id number] [place] [address] [place] Platelet mean volume (Bld) [Entitic vol] Normal [facility] Comment on above: Order Comment: Speci men Type: BLOOD SPECIMENOrdering Facility: [facility] Address: [address] [place] [address] Result Comment: Unab le to Report. Performed By: #### 5 7021-8 ####[facility] LABCLIA [id number] [place] [address] [place] Platelets (Bld) [#/Vol] 5 10*3/uL Critically low 150-400 [facility] Comment on above: Order Comment: Speci men Type: BLOOD SPECIMENOrdering Facility: [facility] Address: [address] [place] [address] Result Comment: Plat elet count confirmed by manual review of peripheral blood smear. Results checked and verified.No clot detected. Performed By: #### 5 7021-8 ####[facility] LABCLIA [id number] [place] [address] [place] Platelets Estimate (Bld) [#/Vol] Decreased Normal [facility] Comment on above: Order Comment: Speci men Type: BLOOD SPECIMENOrdering Facility: [facility] Address: [address] [place] [address] Performed By: #### 5 7021-8 ####[facility] LABCLIA [id number] [place] [address] [place] Polychromasia LM Ql (Bld) Slight Normal [facility] Comment on above: Order Comment: Speci men Type: BLOOD SPECIMENOrdering Facility: [facility] Address: [address] [place] [address] Performed By: #### 5 7021-8 ####[facility] LABCLIA [id number] [place] [address] [place] RBC (Bld) [#/Vol] 2.40 10*6/uL Low 3.90-5.20 [facility] Comment on above: Order Comment: Speci men Type: BLOOD SPECIMENOrdering Facility: [facility] Address: [address] [place] [address] Performed By: #### 5 7021-8 ####[facility] LABCLIA [id number] [place] [address] [place] RBC FRAGMENTS Few Abnormal None Seen [facility] Comment on above: Order Comment: Speci men Type: BLOOD SPECIMENOrdering Facility: [facility] Address: [address] [place] [address] Performed By: #### 5 7021-8 ####[facility] LABCLIA [id number] [place] [address] [place] RED CELL MORPH Reviewed: see result s of individual morphologies Normal [facility] Comment on above: Order Comment: Speci men Type: BLOOD SPECIMENOrdering Facility: [facility] Address: [address] [place] [address] Performed By: #### 5 7021-8 ####[facility] LABCLIA [id number] [place] [address] [place] SPHEROCYTES Few Normal [facility] Comment on above: Order Comment: Speci men Type: BLOOD SPECIMENOrdering Facility: [facility] Address: [address] [place] [address] Performed By: #### 5 7021-8 ####[facility] LABCLIA [id number] [place] [address] [place] WBC (Bld) [#/Vol] 11.67 10*3/uL High 3.70-11.00 [facility] Comment on above: Order Comment: Speci men Type: BLOOD SPECIMENOrdering Facility: [facility] Address: [address] [place] [address] Performed By: #### 5 7021-8 ####[facility] LABCLIA [id number] [place] [address] [place] WBC Left Shift Ql (Bld) Present Normal [facility] Comment on above: Order Comment: Speci men Type: BLOOD SPECIMENOrdering Facility: [facility] Address: [address] [place] [address] Performed By: #### 5 7021-8 ####[facility] LABCLIA [id number] [place] [address] [place] CMV IgG Qnon 09-23-2023 CMV IGG QUAL Negative Normal Negative [facility] Comment on above: Order Comment: Speci men Type: BLOOD SPECIMENOrdering Facility: [facility] Address: [address] [place] [address] Result Comment: No s erological evidence of past exposure to Cytomegalovirus. Cannot exclude recent infection if the specimen collected within 4-6 weeks after infection. Performed By: #### 7 852-7 ####[facility] LABCLIA [id number] [place] [address] [place] CMV IgG SerPl-aCncon 024 CMV IgG Qn <0.20 Normal [facility] Comment on above: Order Comment: Speci men Type: BLOOD SPECIMENOrdering Facility: [facility] Address: [address] [place] [address] Result Comment: The magnitude of the measured result is not indicative of the amount of antibody present.U/mL values are interpreted as follows:Negative <0.6Equivocal 0.6 to <0.70Positive >=0.70 Performed By: #### 7 852-7 ####[facility] LABCLIA [id number] [place] [address] [place] Comprehensive metabolic 2000 panelon 09-23-2023 Albumin [Mass/Vol] 2.9 g/dL Low 3.9-4.9 [facility] Comment on above: Order Comment: Speci men Type: BLOOD SPECIMENOrdering Facility: [facility] Address: [address] [place] [address] Performed By: #### 2 777-1, 17453-0, 30039-1, 4-1 ####[facility] LABCLIA [id number] [place] [address] [place] ALP [Catalytic activity/Vol] 63 U/L Normal 34-123 [facility] Comment on above: Order Comment: Speci men Type: BLOOD SPECIMENOrdering Facility: [facility] Address: [address] [place] [address] Performed By: #### 2 777-1, 46956-4, , 3083-07 ####[facility] LABCLIA [id number] [address] [address] [place] ALT [Catalytic activity/Vol] 22 U/L Normal 7-38 [facility] Comment on above: Order Comment: Speci men Type: BLOOD SPECIMENOrdering Facility: [facility] Address: [address] [place] [address] Performed By: #### 2 777-1, 10301-8, , 3083-07 ####[facility] LABCLIA [id number] [address] [address] [place] Anion gap [Moles/Vol] 11 mmol/L Normal 9-18 [facility] Comment on above: Order Comment: Speci men Type: BLOOD SPECIMENOrdering Facility: [facility] Address: [address] [place] [address] Performed By: #### 2 777-1, 96410-5, , 3083-07 ####[facility] LABIA [id number] [place] [address] [place] AST [Catalytic activity/Vol] 28 U/L Normal 13-35 [facility] Comment on above: Order Comment: Speci men Type: BLOOD SPECIMENOrdering Facility: [facility] Address: [address] [place] [address] Performed By: #### 2 777-1, 13782-7, , 3083-07 ####[facility] LABIA [id number] [address] [address] [place] Bilirubin [Mass/Vol] 0.5 mg/dL Normal 0.2-1.3 [facility] Comment on above: Order Comment: Speci men Type: BLOOD SPECIMENOrdering Facility: [facility] Address: [address] [place] [address] Performed By: #### 2 777-1, 41323-7, , 3083-07 ####[facility] LABCLIA [id number] [address] [address] [place] Calcium [Mass/Vol] 8.5 mg/dL Normal 8.5-10.2 [facility] Comment on above: Order Comment: Speci men Type: BLOOD SPECIMENOrdering Facility: [facility] Address: [address] [place] [address] Performed By: #### 2 777-1, 41622-2, , 3083-07 ####[facility] LABCLIA [id number] [address] [address] [place] Chloride [Moles/Vol] 101 mmol/L Normal 97-105 [facility] Comment on above: Order Comment: Speci men Type: BLOOD SPECIMENOrdering Facility: [facility] Address: [address] [place] [address] Performed By: #### 2 777-1, 17658-0, , 3083-07 ####[facility] LABIA [id number] [place] [id number] [place] CO2 [Moles/Vol] 24 mmol/L Normal 22-30 [facility] Comment on above: Order Comment: Speci men Type: BLOOD SPECIMENOrdering Facility: [facility] Address: [address] [place] [address] Performed By: #### 2 777-1, 40526-5, , 3083-07 ####[facility] LABIA [id number] [address] [address] [place] Creatinine [Mass/Vol] 0.67 mg/dL Normal 0.58-0.96 [facility] Comment on above: Order Comment: Speci men Type: BLOOD SPECIMENOrdering Facility: [facility] Address: [address] [place] [address] Performed By: #### 2 777-1, 45310-6, 35450-03083-07 ####[facility] LABCLIA [id number] [place] [address] [place] Creatinine and Glomerular filtration rate.predicted panel (S/P/Bld) 88 mL/min/1.73m??? Normal >=60 [facility] Comment on above: Order Comment: Qi reynolds Type: BLOOD SPECIMENOrdering Facility: [facility] Address: [address] [place] [address] Result Comment: Akiko mated Glomerular Filtration Rate [...] actual GFR. Performed By: #### 2 777-1, 69544-7, , 3083-07 ####[facility] LABCLIA [id number] [place] [address] [place] Glucose [Mass/Vol] 103 mg/dL High 74-99 [facility] Comment on above: Order Comment: Qi reynolds Type: BLOOD SPECIMENOrdering Facility: [facility] Address: [address] [place] [address] Result Comment: The [place] [employer] (ADA) provides guidance for cutoff [...] Standards of Medical Care in Diabetes 2016, [place] [employer]. Diabetes Care. 2016.39(Suppl 1). Performed By: #### 2 777-1, 92858-3, , 3083-07 ####[facility] LABCLIA [id number] [address] [address] [place] Potassium [Moles/Vol] 3.5 mmol/L Low 3.7-5.1 [facility] Comment on above: Order Comment: Speci men Type: BLOOD SPECIMENOrdering Facility: [facility] Address: [address] [place] [address] Performed By: #### 2 777-1, 53382-1, , 3083-07 ####[facility] LABCLIA [id number] [address] [address] [place] Protein [Mass/Vol] 5.1 g/dL Low 6.3-8.0 [facility] Comment on above: Order Comment: Speci men Type: BLOOD SPECIMENOrdering Facility: [facility] Address: [address] [place] [address] Performed By: #### 2 777-1, 11381-0, , 3083-07 ####[facility] LABIA [id number] [address] [address] [place] Sodium [Moles/Vol] 136 mmol/L Normal 136-144 [facility] Comment on above: Order Comment: Speci men Type: BLOOD SPECIMENOrdering Facility: [facility] Address: [address] [place] [address] Performed By: #### 2 777-1, 28191-2, , 3083-07 ####[facility] LABCLIA [id number] [address] [address] [place] Urea nitrogen [Mass/Vol] 13 mg/dL Normal 7-21 [facility] Comment on above: Order Comment: Speci men Type: BLOOD SPECIMENOrdering Facility: [facility] Address: [address] [place] [address] Performed By: #### 2 777-1, 79930-4, 27602-1, 3084-1 ####[facility] LABCLIA [id number] [place] [id number] [place] Fibrinogen PPP-mCncon 2023 Fibrinogen Coag (PPP) [Mass/Vol] 561 mg/dL High 200-400 [facility] Comment on above: Order Comment: Speci men Type: BLOOD SPECIMENOrdering Facility: [facility] Address: [address] [place] [address] Result Comment: Samp le checked for clot.Result rechecked. Performed By: #### 3 4528-0, 81925-8, 3255-7 ####[facility] LABCLIA [id number] [place] [address] [place] MEDICAL EMERon 09-23-2023 MEDICAL EDMUND Normal [facility] Magnesium [Mass/Vol] 2.1 mg/dL Normal 1.7-2.3 [facility] Comment on above: Order Comment: Speci men Type: BLOOD SPECIMENOrdering Facility: [facility] Address: [address] [place] [address] Performed By: #### 2 777-1, 53457-7, 04420-8, 3084-1 ####[facility] LABCLIA [id number] [place] [address] [place] NURSING PROGon 09-23-2023 NURSING PROG Normal [facility] PT panel Coag (PPP)on 2023 INR Coag (PPP) [Relative time] 1.4 {INR} High 0.9-1.3 [facility] Comment on above: Order Comment: Nikkii men Type: BLOOD SPECIMENOrdering Facility: [facility] Address: [address] [place] [address] Result Comment: Samp le checked for clot.Vitamin K Antagonist (VKA) Therapeutic Range: INR 2 to 3 (Target INR of 2.5)Note: For patients treated with VKA drugs, such as warfarin, the [place] [employer] 2012 Guideline recommends [...] of 3).Collins HUTCHINS, et al. Chest 2012, 141:7S-47SNishimaspen RA, et al. [facility] 2017, 70: 252-289 Performed By: #### 3 4528-0, 48849-3, 51111-19 ####[facility] LABIA [id number] [place] [address] [place] PT Coag (PPP) [Time] 14.6 s High 9.7-13.0 [facility] Comment on above: Order Comment: Speci men Type: BLOOD SPECIMENOrdering Facility: [facility] Address: [address] [place] [address] Performed By: #### 3 4528-0, 26793-9, 3255-01 ####[facility] LABIA [id number] [place] [address] [place] Phosphate SerPl-mCncon 09-22 Phosphate [Mass/Vol] 4.7 mg/dL Normal 2.7-4.8 [facility] Comment on above: Order Comment: Speci men Type: BLOOD SPECIMENOrdering Facility: [facility] Address: [address] [place] [address] Performed By: #### 2 777-1, 91261-4, 72012-6, 3084-1 ####[facility] LABIA [id number] [place] [address] [place] Urate SerPl-mCncon Urate [Mass/Vol] 2.8 mg/dL Normal 2.5-6.6 [facility] Comment on above: Order Comment: Speci men Type: BLOOD SPECIMENOrdering Facility: [facility] Address: [address] [place] [address] Performed By: #### 2 777-1, 26017-6, 22671-7, 3084-1 ####[facility] LABCLIA [id number] [place] [address] [place] Urinalysis complete panel (U )on 09-23-2023 Bacteria LM.HPF (Urine sed) [#/Area] Negative Normal Negative [facility] Comment on above: Order Comment: Speci men Type: URINE SPECIMENOrdering Facility: [facility] Address: [address] [place] [address] Performed By: #### 2 4356-8 ####[facility] LABCLIA [id number] [place] [address] [place] Bilirubin Ql (U) Negative Normal Negative [facility] Comment on above: Order Comment: Speci men Type: URINE SPECIMENOrdering Facility: [facility] Address: [address] [place] [address] Performed By: #### 2 4356-8 ####[facility] LABCLIA [id number] [place] [address] [place] Clarity (Unsp spec) Clear Normal Clear [facility] Comment on above: Order Comment: Speci men Type: URINE SPECIMENOrdering Facility: [facility] Address: [address] [place] [address] Performed By: #### 2 4356-8 ####[facility] LABCLIA [id number] [place] [address] [place] Color (U) Yellow Normal Yellow [facility] Comment on above: Order Comment: Speci men Type: URINE SPECIMENOrdering Facility: [facility] Address: [address] [place] [address] Performed By: #### 2 4356-8 ####[facility] LABCLIA [id number] [place] [address] [place] Epithelial cells LM.HPF (Urine sed) [#/Area] Few Normal [facility] Comment on above: Order Comment: Speci men Type: URINE SPECIMENOrdering Facility: [facility] Address: [address] [place] [address] Performed By: #### 2 4356-8 ####[facility] LABCLIA [id number] [place] [address] [place] Glucose Test strip (U) [Mass/Vol] Negative Normal Negative [facility] Comment on above: Order Comment: Speci men Type: URINE SPECIMENOrdering Facility: [facility] Address: [address] [place] [address] Performed By: #### 2 4356-8 ####[facility] LABCLIA [id number] [place] [address] [place] Hemoglobin Ql (U) Negative Normal Negative [facility] Comment on above: Order Comment: Speci men Type: URINE SPECIMENOrdering Facility: [facility] Address: [address] [place] [address] Performed By: #### 2 4356-8 ####[facility] LABCLIA [id number] [place] [address] [place] Hyaline casts (Urine sed) [#/Area] 0 /[LPF] Normal 0 /LPF [facility] Comment on above: Order Comment: Speci men Type: URINE SPECIMENOrdering Facility: [facility] Address: [address] [place] [address] Performed By: #### 2 4356-8 ####[facility] LABCLIA [id number] [place] [address] [place] Ketones Ql (U) Trace Abnormal Negative [facility] Comment on above: Order Comment: Speci men Type: URINE SPECIMENOrdering Facility: [facility] Address: [address] [place] [address] Performed By: #### 2 4356-8 ####[facility] LABCLIA [id number] [place] [address] [place] Leukocyte esterase Test strip Ql (U) Trace Abnormal Negative [facility] Comment on above: Order Comment: Speci men Type: URINE SPECIMENOrdering Facility: [facility] Address: [address] [place] [address] Performed By: #### 2 4356-8 ####[facility] LABCLIA [id number] [place] [address] [place] Nitrite Ql (U) Negative Normal Negative [facility] Comment on above: Order Comment: Speci men Type: URINE SPECIMENOrdering Facility: [facility] Address: [address] [place] [address] Performed By: #### 2 4356-8 ####[facility] LABCLIA [id number] [place] [address] [place] pH (U) 6.0 [pH] Normal <8.5 [facility] Comment on above: Order Comment: Speci men Type: URINE SPECIMENOrdering Facility: [facility] Address: [address] [place] [address] Performed By: #### 2 4356-8 ####[facility] LABCLIA [id number] [place] [address] [place] Protein (U) [Mass/Vol] 1+ Abnormal Negative [facility] Comment on above: Order Comment: Speci men Type: URINE SPECIMENOrdering Facility: [facility] Address: [address] [place] [address] Performed By: #### 2 4356-8 ####[facility] LABCLIA [id number] [place] [address] [place] RBC LM.HPF (Urine sed) [#/Area] 0-2 /HPF Normal 0-2 /HPF [facility] Comment on above: Order Comment: Speci men Type: URINE SPECIMENOrdering Facility: [facility] Address: [address] [place] [address] Performed By: #### 2 4356-8 ####[facility] LABIA [id number] [place] [address] [place] Specific gravity (U) [Rel density] 1.020 Normal 1.005-1.030 [facility] Comment on above: Order Comment: Speci men Type: URINE SPECIMENOrdering Facility: [facility] Address: [address] [place] [address] Performed By: #### 2 4356-8 ####[facility] LABIA [id number] [place] [address] [place] Urobilinogen Ql (U) 1.0 EU/dL Normal 0.2-1.0 EU/dL [facility] Comment on above: Order Comment: Speci men Type: URINE SPECIMENOrdering Facility: [facility] Address: [address] [place] [address] Performed By: #### 2 4356-8 ####[facility] [id number] [place] [address] [place] WBC LM.HPF (Urine sed) [#/Area] 0-5 /HPF Normal 0-5 /HPF [facility] Comment on above: Order Comment: Speci men Type: URINE SPECIMENOrdering Facility: [facility] Address: [address] [place] [address] Performed By: #### 2 4356-8 ####[facility] LABIA [id number] [place] [address] [place] aPTT PPPon 09-23-2023 aPTT Coag (PPP) [Time] 37.3 s High 23.0-32.4 [facility] Comment on above: Order Comment: Speci men Type: BLOOD SPECIMENOrdering Facility: [facility] Address: [address] [place] [address] Performed By: #### 3 4528-0, 82249-0, 3255-7 ####[facility] LABCLIA [id number] [place] [address] [place] Bacteria Bld Culton 09-22-19 24 Bacteria identified Cx Nom (Bld) CULTURE, BLOOD: No growth 5 days Normal [facility] Comment on above: Performed By: #### 6 00-7 ####[facility] LABCLIA [id number] [place] [address] [place] CBC W Auto Differential pane l (Bld)on 09-22-2023 Anisocytosis Ql (Bld) Present Normal [facility] Comment on above: Order Comment: Speci men Type: BLOOD SPECIMENOrdering Facility: [facility] Address: [address] [place] [address] Performed By: #### 5 7021-8 ####[facility] LABCLIA [id number] [place] [address] [place] Basophils (Bld) [#/Vol] 0.00 10*3/uL Normal <0.11 [facility] Comment on above: Order Comment: Speci men Type: BLOOD SPECIMENOrdering Facility: [facility] Address: [address] [place] [address] Performed By: #### 5 7021-8 ####[facility] LABCLIA [id number] [place] [address] [place] Basophils/100 WBC (Bld) 0.0 % Normal [facility] Comment on above: Order Comment: Speci men Type: BLOOD SPECIMENOrdering Facility: [facility] Address: [address] [place] [address] Performed By: #### 5 7021-8 ####[facility] LABCLIA [id number] [place] [address] [place] BLAST% 69.0 % High <=0.0 [facility] Comment on above: Order Comment: Speci men Type: BLOOD SPECIMENOrdering Facility: [facility] Address: [address] [place] [address] Performed By: #### 5 7021-8 ####[facility] LABCLIA [id number] [place] [address] [place] Dacrocytes LM Ql (Bld) Few Normal [facility] Comment on above: Order Comment: Speci men Type: BLOOD SPECIMENOrdering Facility: [facility] Address: [address] [place] [address] Performed By: #### 5 7021-8 ####[facility] LABCLIA [id number] [place] [address] [place] Differential cell count method Nom (Bld) Manual Normal [facility] Comment on above: Order Comment: Speci men Type: BLOOD SPECIMENOrdering Facility: [facility] Address: [address] [place] [address] Performed By: #### 5 7021-8 ####[facility] LABCLIA [id number] [place] [address] [place] Eosinophils (Bld) [#/Vol] 0.00 10*3/uL Normal <0.46 [facility] Comment on above: Order Comment: Speci men Type: BLOOD SPECIMENOrdering Facility: [facility] Address: [address] [place] [address] Performed By: #### 5 7021-8 ####[facility] LABCLIA [id number] [place] [address] [place] Eosinophils/100 WBC (Bld) 0.0 % Normal [facility] Comment on above: Order Comment: Speci men Type: BLOOD SPECIMENOrdering Facility: [facility] Address: [address] [place] [address] Performed By: #### 5 7021-8 ####[facility] LABCLIA [id number] [place] [address] [place] Erythrocyte distribution width (RBC) [Ratio] 22.0 % High 11.5-15.0 [facility] Comment on above: Order Comment: Speci men Type: BLOOD SPECIMENOrdering Facility: [facility] Address: [address] [place] [address] Performed By: #### 5 7021-8 ####[facility] LABIA [id number] [place] [address] [place] Hematocrit (Bld) [Volume fraction] 22.7 % Low 36.0-46.0 [facility] Comment on above: Order Comment: Speci men Type: BLOOD SPECIMENOrdering Facility: [facility] Address: [address] [place] [address] Performed By: #### 5 7021-8 ####[facility] LABIA [id number] [place] [address] [place] Hemoglobin (Bld) [Mass/Vol] 7.6 g/dL Low 11.5-15.5 [facility] Comment on above: Order Comment: Speci men Type: BLOOD SPECIMENOrdering Facility: [facility] Address: [address] [place] [address] Performed By: #### 5 7021-8 ####[facility] LABIA [id number] [place] [address] [place] Lymphocytes (Bld) [#/Vol] 1.43 10*3/uL Normal 1.00-4.00 [facility] Comment on above: Order Comment: Speci men Type: BLOOD SPECIMENOrdering Facility: [facility] Address: [address] [place] [address] Performed By: #### 5 7021-8 ####[facility] LABIA [id number] [place] [address] [place] Lymphocytes/100 WBC (Bld) 9.0 % Normal [facility] Comment on above: Order Comment: Speci men Type: BLOOD SPECIMENOrdering Facility: [facility] Address: [address] [place] [address] Performed By: #### 5 7021-8 ####[facility] LABCLIA [id number] [place] [address] [place] MCH (RBC) [Entitic mass] 31.4 pg Normal 26.0-34.0 [facility] Comment on above: Order Comment: Speci men Type: BLOOD SPECIMENOrdering Facility: [facility] Address: [address] [place] [address] Performed By: #### 5 7021-8 ####[facility] LABCLIA [id number] [place] [address] [place] MCHC (RBC) [Mass/Vol] 33.5 g/dL Normal 30.5-36.0 [facility] Comment on above: Order Comment: Speci men Type: BLOOD SPECIMENOrdering Facility: [facility] Address: [address] [place] [address] Performed By: #### 5 7021-8 ####[facility] LABIA [id number] [place] [address] [place] MCV (RBC) [Entitic vol] 93.8 fL Normal 80.0-100.0 [facility] Comment on above: Order Comment: Speci men Type: BLOOD SPECIMENOrdering Facility: [facility] Address: [address] [place] [address] Performed By: #### 5 7021-8 ####[facility] LABCLIA [id number] [place] [address] [place] Monocytes (Bld) [#/Vol] 0.16 10*3/uL Normal <0.87 [facility] Comment on above: Order Comment: Speci men Type: BLOOD SPECIMENOrdering Facility: [facility] Address: [address] [place] [address] Performed By: #### 5 7021-8 ####[facility] LABCLIA [id number] [place] [address] [place] Monocytes/100 WBC (Bld) 1.0 % Normal [facility] Comment on above: Order Comment: Speci men Type: BLOOD SPECIMENOrdering Facility: [facility] Address: [address] [place] [address] Performed By: #### 5 7021-8 ####[facility] LABCLIA [id number] [place] [address] [place] MYELO% 1.0 % Normal [facility] Comment on above: Order Comment: Speci men Type: BLOOD SPECIMENOrdering Facility: [facility] Address: [address] [place] [address] Performed By: #### 5 7021-8 ####[facility] LABIA [id number] [place] [address] [place] Neutrophils (Bld) [#/Vol] 3.18 10*3/uL Normal 1.45-7.50 [facility] Comment on above: Order Comment: Speci men Type: BLOOD SPECIMENOrdering Facility: [facility] Address: [address] [place] [address] Performed By: #### 5 7021-8 ####[facility] LABCLIA [id number] [place] [address] [place] Neutrophils/100 WBC (Bld) 20.0 % Normal [facility] Comment on above: Order Comment: Speci men Type: BLOOD SPECIMENOrdering Facility: [facility] Address: [address] [place] [address] Performed By: #### 5 7021-8 ####[facility] LABCLIA [id number] [place] [address] [place] Nucleated RBC (Bld) [#/Vol] 10*3/uL Normal <0.01 [facility] Comment on above: Order Comment: Speci men Type: BLOOD SPECIMENOrdering Facility: [facility] Address: [address] [place] [address] Performed By: #### 5 7021-8 ####[facility] LABCLIA [id number] [place] [address] [place] Nucleated RBC/100 WBC (Bld) [Ratio] 0.0 /100 WBC Normal [facility] Comment on above: Order Comment: Speci men Type: BLOOD SPECIMENOrdering Facility: [facility] Address: [address] [place] [address] Performed By: #### 5 7021-8 ####[facility] LABCLIA [id number] [place] [address] [place] Ovalocytes LM Ql (Bld) Few Normal [facility] Comment on above: Order Comment: Speci men Type: BLOOD SPECIMENOrdering Facility: [facility] Address: [address] [place] [address] Performed By: #### 5 7021-8 ####[facility] LABCLIA [id number] [place] [address] [place] Platelet mean volume (Bld) [Entitic vol] Normal [facility] Comment on above: Order Comment: Speci men Type: BLOOD SPECIMENOrdering Facility: [facility] Address: [address] [place] [address] Result Comment: Unab le to Report. Performed By: #### 5 7021-8 ####[facility] LABCLIA [id number] [place] [address] [place] Platelets (Bld) [#/Vol] 10 10*3/uL Low 150-400 [facility] Comment on above: Order Comment: Speci men Type: BLOOD SPECIMENOrdering Facility: [facility] Address: [address] [place] [address] Result Comment: Resu lts checked and verified.No clot detected. Performed By: #### 5 7021-8 ####[facility] LABCLIA [id number] [place] [address] [place] Platelets Estimate (Bld) [#/Vol] Decreased Normal [facility] Comment on above: Order Comment: Speci men Type: BLOOD SPECIMENOrdering Facility: [facility] Address: [address] [place] [address] Performed By: #### 5 7021-8 ####[facility] LABCLIA [id number] [place] [address] [place] Polychromasia LM Ql (Bld) Slight Normal [facility] Comment on above: Order Comment: Speci men Type: BLOOD SPECIMENOrdering Facility: [facility] Address: [address] [place] [address] Performed By: #### 5 7021-8 ####[facility] LABIA [id number] [place] [address] [place] RBC (Bld) [#/Vol] 2.42 10*6/uL Low 3.90-5.20 [facility] Comment on above: Order Comment: Speci men Type: BLOOD SPECIMENOrdering Facility: [facility] Address: [address] [place] [address] Performed By: #### 5 7021-8 ####[facility] LABIA [id number] [place] [address] [place] RED CELL MORPH Reviewed: see result s of individual morphologies Normal [facility] Comment on above: Order Comment: Speci men Type: BLOOD SPECIMENOrdering Facility: [facility] Address: [address] [place] [address] Performed By: #### 5 7021-8 ####[facility] LABIA [id number] [place] [address] [place] WBC (Bld) [#/Vol] 15.91 10*3/uL High 3.70-11.00 [facility] Comment on above: Order Comment: Speci men Type: BLOOD SPECIMENOrdering Facility: [facility] Address: [address] [place] [address] Result Comment: Resu lts checked and verified.No clot detected. Performed By: #### 5 7021-8 ####[facility] LABCLIA [id number] [place] [address] [place] WBC Left Shift Ql (Bld) Present Normal [facility] Comment on above: Order Comment: Speci men Type: BLOOD SPECIMENOrdering Facility: [facility] Address: [address] [place] [address] Performed By: #### 5 7021-8 ####[facility] LABCLIA [id number] [place] [address] [place] Comprehensive metabolic 2000 panelon 09-22-2023 Albumin [Mass/Vol] 2.9 g/dL Low 3.9-4.9 [facility] Comment on above: Order Comment: Speci men Type: BLOOD SPECIMENOrdering Facility: [facility] Address: [address] [place] [address] Performed By: #### 2 4323-8, 65197-0, 2777-1, 3084-1 ####[facility] LABCLIA [id number] [place] [address] [place] ALP [Catalytic activity/Vol] 60 U/L Normal 34-123 [facility] Comment on above: Order Comment: Speci men Type: BLOOD SPECIMENOrdering Facility: [facility] Address: [address] [place] [address] Performed By: #### 2 4323-8, 29683-3, 2777-1, 3084-1 ####[facility] LABCLIA [id number] [place] [address] [place] ALT [Catalytic activity/Vol] 16 U/L Normal 7-38 [facility] Comment on above: Order Comment: Speci men Type: BLOOD SPECIMENOrdering Facility: [facility] Address: [address] [place] [address] Performed By: #### 2 4323-8, 08885-7, 2776-, 3084-1 ####[facility] LABCLIA [id number] [place] [address] [place] Anion gap [Moles/Vol] 9 mmol/L Normal 9-18 [facility] Comment on above: Order Comment: Speci men Type: BLOOD SPECIMENOrdering Facility: [facility] Address: [address] [place] [address] Performed By: #### 2 4323-8, 55183-9, 2776-, 3084-1 ####[facility] LABCLIA [id number] [place] [address] [place] AST [Catalytic activity/Vol] 26 U/L Normal 13-35 [facility] Comment on above: Order Comment: Speci men Type: BLOOD SPECIMENOrdering Facility: [facility] Address: [address] [place] [address] Performed By: #### 2 4323-8, 97095-3, 2776-, 3084-1 ####[facility] LABCLIA [id number] [place] [address] [place] Bilirubin [Mass/Vol] 0.4 mg/dL Normal 0.2-1.3 [facility] Comment on above: Order Comment: Speci men Type: BLOOD SPECIMENOrdering Facility: [facility] Address: [address] [place] [address] Performed By: #### 2 4323-8, 85416-0, 2776-1, 3084-1 ####[facility] LABCLIA [id number] [address] [address] [place] Calcium [Mass/Vol] 8.6 mg/dL Normal 8.5-10.2 [facility] Comment on above: Order Comment: Speci men Type: BLOOD SPECIMENOrdering Facility: [facility] Address: [address] [place] [address] Performed By: #### 2 4323-8, 75705-6, 2776-, 3084-1 ####[facility] LABCLIA [id number] [place] [address] [place] Chloride [Moles/Vol] 104 mmol/L Normal 97-105 [facility] Comment on above: Order Comment: Speci men Type: BLOOD SPECIMENOrdering Facility: [facility] Address: [address] [place] [address] Performed By: #### 2 4323-8, 79430-2, 2776-, 3084-1 ####[facility] LABCLIA [id number] [place] [address] [place] CO2 [Moles/Vol] 24 mmol/L Normal 22-30 [facility] Comment on above: Order Comment: Speci men Type: BLOOD SPECIMENOrdering Facility: [facility] Address: [address] [place] [address] Performed By: #### 2 4323-8, 22994-0, 2776-, 3084-1 ####[facility] LABCLIA [id number] [place] [address] [place] Creatinine [Mass/Vol] 0.57 mg/dL Low 0.58-0.96 [facility] Comment on above: Order Comment: Speci men Type: BLOOD SPECIMENOrdering Facility: [facility] Address: [address] [place] [address] Performed By: #### 2 4323-8, 28517-9, 2776-, 3084-1 ####[facility] LABCLIA [id number] [place] [address] [place] Creatinine and Glomerular filtration rate.predicted panel (S/P/Bld) 91 mL/min/1.73m??? Normal >=60 [facility] Comment on above: Order Comment: Qi reynolds Type: BLOOD SPECIMENOrdering Facility: [facility] Address: [address] [place] [address] Result Comment: Akiko mated Glomerular Filtration Rate [...] actual GFR. Performed By: #### 2 4323-8, 17951-3, 2776-, 3083-07 ####[facility] LABCLIA [id number] [place] [address] [place] Glucose [Mass/Vol] 87 mg/dL Normal 74-99 [facility] Comment on above: Order Comment: Qi reynolds Type: BLOOD SPECIMENOrdering Facility: [facility] Address: [address] [place] [address] Result Comment: The [place] Diabetes Association (ADA) provides guidance for cutoff [...] Standards of Medical Care in Diabetes 2016, [place] [employer]. Diabetes Care. 2016.39(Suppl 1). Performed By: #### 2 4323-8, 59882-0, 2776-07, 3083- ####[facility] LABCLIA [id number] [address] [address] [place] Potassium [Moles/Vol] 3.5 mmol/L Low 3.7-5.1 [facility] Comment on above: Order Comment: Speci men Type: BLOOD SPECIMENOrdering Facility: [facility] Address: [address] [place] [address] Performed By: #### 2 4323-8, 67079-2, 2776-1, 3084-1 ####[facility] LABIA [id number] [place] [id number] [place] Protein [Mass/Vol] 5.1 g/dL Low 6.3-8.0 [facility] Comment on above: Order Comment: Speci men Type: BLOOD SPECIMENOrdering Facility: [facility] Address: [address] [place] [address] Performed By: #### 2 4323-8, 78044-2, 2776-, 3083-1 ####[facility] LABIA [id number] [place] [address] [place] Sodium [Moles/Vol] 137 mmol/L Normal 136-144 [facility] Comment on above: Order Comment: Speci men Type: BLOOD SPECIMENOrdering Facility: [facility] Address: [address] [place] [address] Performed By: #### 2 4323-8, 50994-1, 2776-, 308-1 ####[facility] LABIA [id number] [place] [address] [place] Urea nitrogen [Mass/Vol] 8 mg/dL Normal 7-21 [facility] Comment on above: Order Comment: Speci men Type: BLOOD SPECIMENOrdering Facility: [facility] Address: [address] [place] [address] Performed By: #### 2 4323-8, 06950-6, 2776-1, 308-1 ####[facility] LABIA [id number] [address] [address] [place] Fibrinogen PPP-mCncon 03-09- 2024 Fibrinogen Coag (PPP) [Mass/Vol] 532 mg/dL High 200-400 [facility] Comment on above: Order Comment: Qi reynolds Type: BLOOD SPECIMENOrdering Facility: [facility] Address: [address] [place] [address] Result Comment: Samdeny le checked for clot.Result rechecked. Performed By: #### 3 255-7, 79004-2, 51621-6 ####[facility] LABCLIA [id number] [place] [address] [place] MEDICAL EMERon 09-22-2023 MEDICAL EDMUND Normal [facility] Magnesium SerPl-mCncon 09-21 Magnesium [Mass/Vol] 1.9 mg/dL Normal 1.7-2.3 [facility] Comment on above: Order Comment: Qi reynolds Type: BLOOD SPECIMENOrdering Facility: [facility] Address: [address] [place] [address] Performed By: #### 2 4323-8, 37030-5, 2777-1, 3084-1 ####[facility] LABCLIA [id number] [place] [address] [place] PT panel Coag (PPP)on 2023 INR Coag (PPP) [Relative time] 1.4 {INR} High 0.9-1.3 [facility] Comment on above: Order Comment: Qi reynolds Type: BLOOD SPECIMENOrdering Facility: [facility] Address: [address] [place] [address] Result Comment: Clementine min K Antagonist (VKA) Therapeutic Range: INR 2 to 3 (Target INR of 2.5)Note: For patients treated with VKA drugs, such as warfarin, the [place] [employer] 2012 Guideline recommends [...] al. Chest 2012, 141:7S-47SNishfabrizio RA, et al. [facility] 2017, 70: 252-289 Performed By: #### 3 255-7, 36150-6, 98362-3 ####[facility] LABCLIA [id number] [place] [address] [place] PT Coag (PPP) [Time] 14.9 s High 9.7-13.0 [facility] Comment on above: Order Comment: Speci men Type: BLOOD SPECIMENOrdering Facility: [facility] Address: [address] [place] [address] Performed By: #### 3 255-7, 07423-4, 62129-3 ####[facility] LABCLIA [id number] [place] [address] [place] Phosphate SerPl-mCncon 09-21 Phosphate [Mass/Vol] 3.5 mg/dL Normal 2.7-4.8 [facility] Comment on above: Order Comment: Speci men Type: BLOOD SPECIMENOrdering Facility: [facility] Address: [address] [place] [address] Performed By: #### 2 4323-8, 67822-4, 2777-1, 3084-1 ####[facility] LABIA [id number] [place] [address] [place] SEPSIS LACTATEon 09-22-2023 Lactate [Moles/Vol] 1.1 mmol/L Normal <=2.0 [facility] Comment on above: Order Comment: Speci men Type: BLOOD SPECIMENOrdering Facility: [facility] Address: [address] [place] [address] Performed By: #### S LACT ####[facility] LABCLIA [id number] [place] [address] [place] Urate SerPl-mCncon Urate [Mass/Vol] 2.7 mg/dL Normal 2.5-6.6 [facility] Comment on above: Order Comment: Speci men Type: BLOOD SPECIMENOrdering Facility: [facility] Address: [address] [place] [address] Performed By: #### 2 4323-8, 13249-4, 2777-1, 3084-1 ####[facility] LABCLIA [id number] [place] [address] [place] XR CHEST 1V FRONTAL PORTon 0 09-22-2023 XR CHEST 1V FRONTAL PORT Normal [facility] aPTT PPPon 09-22-2023 aPTT Coag (PPP) [Time] 37.3 s High 23.0-32.4 [facility] Comment on above: Order Comment: Speci men Type: BLOOD SPECIMENOrdering Facility: [facility] Address: [address] [place] [address] Performed By: #### 3 255-7, 98087-2, 75812-9 ####[facility] LABCLIA [id number] [place] [address] [place] ALLIED HEALTHon 09-21-2023 ALLIED HEALTH Normal [facility] CBC W Auto Differential pane l (Bld)on 09-21-2023 Anisocytosis Ql (Bld) Present Normal [facility] Comment on above: Order Comment: Speci men Type: BLOOD SPECIMENOrdering Facility: [facility] Address: [address] [place] [address] Performed By: #### 5 7021-8 ####[facility] LABCLIA [id number] [place] [address] [place] Basophils (Bld) [#/Vol] 0.00 10*3/uL Normal <0.11 [facility] Comment on above: Order Comment: Speci men Type: BLOOD SPECIMENOrdering Facility: [facility] Address: [address] [place] [address] Performed By: #### 5 7021-8 ####[facility] LABCLIA [id number] [place] [address] [place] Basophils/100 WBC (Bld) 0.0 % Normal [facility] Comment on above: Order Comment: Speci men Type: BLOOD SPECIMENOrdering Facility: [facility] Address: [address] [place] [address] Performed By: #### 5 7021-8 ####[facility] LABCLIA [id number] [place] [address] [place] BLAST% 60.0 % High <=0.0 [facility] Comment on above: Order Comment: Speci men Type: BLOOD SPECIMENOrdering Facility: [facility] Address: [address] [place] [address] Performed By: #### 5 7021-8 ####[facility] LABCLIA [id number] [place] [address] [place] Differential cell count method Nom (Bld) Manual Normal [facility] Comment on above: Order Comment: Speci men Type: BLOOD SPECIMENOrdering Facility: [facility] Address: [address] [place] [address] Performed By: #### 5 7021-8 ####[facility] LABCLIA [id number] [place] [address] [place] Eosinophils (Bld) [#/Vol] 0.00 10*3/uL Normal <0.46 [facility] Comment on above: Order Comment: Speci men Type: BLOOD SPECIMENOrdering Facility: [facility] Address: [address] [place] [address] Performed By: #### 5 7021-8 ####[facility] LABCLIA [id number] [place] [address] [place] Eosinophils/100 WBC (Bld) 0.0 % Normal [facility] Comment on above: Order Comment: Speci men Type: BLOOD SPECIMENOrdering Facility: [facility] Address: [address] [place] [address] Performed By: #### 5 7021-8 ####[facility] LABCLIA [id number] [place] [address] [place] Erythrocyte distribution width (RBC) [Ratio] 22.7 % High 11.5-15.0 [facility] Comment on above: Order Comment: Speci men Type: BLOOD SPECIMENOrdering Facility: [facility] Address: [address] [place] [address] Performed By: #### 5 7021-8 ####[facility] LABIA [id number] [place] [address] [place] Hematocrit (Bld) [Volume fraction] 22.8 % Low 36.0-46.0 [facility] Comment on above: Order Comment: Speci men Type: BLOOD SPECIMENOrdering Facility: [facility] Address: [address] [place] [address] Performed By: #### 5 7021-8 ####[facility] LABIA [id number] [place] [address] [place] Hemoglobin (Bld) [Mass/Vol] 7.8 g/dL Low 11.5-15.5 [facility] Comment on above: Order Comment: Speci men Type: BLOOD SPECIMENOrdering Facility: [facility] Address: [address] [place] [address] Performed By: #### 5 7021-8 ####[facility] LABIA [id number] [place] [address] [place] Lymphocytes (Bld) [#/Vol] 2.74 10*3/uL Normal 1.00-4.00 [facility] Comment on above: Order Comment: Speci men Type: BLOOD SPECIMENOrdering Facility: [facility] Address: [address] [place] [address] Performed By: #### 5 7021-8 ####[facility] LABIA [id number] [place] [address] [place] Lymphocytes/100 WBC (Bld) 14.0 % Normal [facility] Comment on above: Order Comment: Speci men Type: BLOOD SPECIMENOrdering Facility: [facility] Address: [address] [place] [address] Performed By: #### 5 7021-8 ####[facility] LABIA [id number] [place] [address] [place] MCH (RBC) [Entitic mass] 31.7 pg Normal 26.0-34.0 [facility] Comment on above: Order Comment: Speci men Type: BLOOD SPECIMENOrdering Facility: [facility] Address: [address] [place] [address] Performed By: #### 5 7021-8 ####[facility] LABIA [id number] [place] [address] [place] MCHC (RBC) [Mass/Vol] 34.2 g/dL Normal 30.5-36.0 [facility] Comment on above: Order Comment: Speci men Type: BLOOD SPECIMENOrdering Facility: [facility] Address: [address] [place] [address] Performed By: #### 5 7021-8 ####[facility] LABIA [id number] [place] [address] [place] MCV (RBC) [Entitic vol] 92.7 fL Normal 80.0-100.0 [facility] Comment on above: Order Comment: Speci men Type: BLOOD SPECIMENOrdering Facility: [facility] Address: [address] [place] [address] Performed By: #### 5 7021-8 ####[facility] LABIA [id number] [place] [address] [place] Monocytes (Bld) [#/Vol] 0.78 10*3/uL Normal <0.87 [facility] Comment on above: Order Comment: Speci men Type: BLOOD SPECIMENOrdering Facility: [facility] Address: [address] [place] [address] Performed By: #### 5 7021-8 ####[facility] LABCLIA [id number] [place] [address] [place] Monocytes/100 WBC (Bld) 4.0 % Normal [facility] Comment on above: Order Comment: Speci men Type: BLOOD SPECIMENOrdering Facility: [facility] Address: [address] [place] [address] Performed By: #### 5 7021-8 ####[facility] LABCLIA [id number] [place] [address] [place] Neutrophils (Bld) [#/Vol] 4.31 10*3/uL Normal 1.45-7.50 [facility] Comment on above: Order Comment: Speci men Type: BLOOD SPECIMENOrdering Facility: [facility] Address: [address] [place] [address] Performed By: #### 5 7021-8 ####[facility] LABCLIA [id number] [place] [address] [place] Neutrophils/100 WBC (Bld) 22.0 % Normal [facility] Comment on above: Order Comment: Speci men Type: BLOOD SPECIMENOrdering Facility: [facility] Address: [address] [place] [address] Performed By: #### 5 7021-8 ####[facility] LABCLIA [id number] [place] [address] [place] Nucleated RBC (Bld) [#/Vol] 0.20 10*3/uL High <0.01 [facility] Comment on above: Order Comment: Speci men Type: BLOOD SPECIMENOrdering Facility: [facility] Address: [address] [place] [address] Performed By: #### 5 7021-8 ####[facility] LABCLIA [id number] [place] [address] [place] Nucleated RBC/100 WBC (Bld) [Ratio] 1.0 /100 WBC Normal [facility] Comment on above: Order Comment: Speci men Type: BLOOD SPECIMENOrdering Facility: [facility] Address: [address] [place] [address] Performed By: #### 5 7021-8 ####[facility] LABCLIA [id number] [place] [address] [place] Ovalocytes LM Ql (Bld) Few Normal [facility] Comment on above: Order Comment: Speci men Type: BLOOD SPECIMENOrdering Facility: [facility] Address: [address] [place] [address] Performed By: #### 5 7021-8 ####[facility] LABCLIA [id number] [place] [address] [place] Platelet mean volume (Bld) [Entitic vol] 10.2 fL Normal 9.0-12.7 [facility] Comment on above: Order Comment: Speci men Type: BLOOD SPECIMENOrdering Facility: [facility] Address: [address] [place] [address] Performed By: #### 5 7021-8 ####[facility] LABCLIA [id number] [place] [address] [place] Platelets (Bld) [#/Vol] 10 10*3/uL Low 150-400 [facility] Comment on above: Order Comment: Speci men Type: BLOOD SPECIMENOrdering Facility: [facility] Address: [address] [place] [address] Result Comment: Resu lts checked and verified.No clot detected. Performed By: #### 5 7021-8 ####[facility] LABCLIA [id number] [place] [address] [place] Platelets Estimate (Bld) [#/Vol] Decreased Normal [facility] Comment on above: Order Comment: Speci men Type: BLOOD SPECIMENOrdering Facility: [facility] Address: [address] [place] [address] Performed By: #### 5 7021-8 ####[facility] LABCLIA [id number] [place] [address] [place] Polychromasia LM Ql (Bld) Slight Normal [facility] Comment on above: Order Comment: Speci men Type: BLOOD SPECIMENOrdering Facility: [facility] Address: [address] [place] [address] Performed By: #### 5 7021-8 ####[facility] LABCLIA [id number] [place] [address] [place] RBC (Bld) [#/Vol] 2.46 10*6/uL Low 3.90-5.20 [facility] Comment on above: Order Comment: Speci men Type: BLOOD SPECIMENOrdering Facility: [facility] Address: [address] [place] [address] Performed By: #### 5 7021-8 ####[facility] LABCLIA [id number] [place] [address] [place] RED CELL MORPH Reviewed: see result s of individual morphologies Normal [facility] Comment on above: Order Comment: Speci men Type: BLOOD SPECIMENOrdering Facility: [facility] Address: [address] [place] [address] Performed By: #### 5 7021-8 ####[facility] LABCLIA [id number] [place] [address] [place] WBC (Bld) [#/Vol] 19.58 10*3/uL High 3.70-11.00 [facility] Comment on above: Order Comment: Speci men Type: BLOOD SPECIMENOrdering Facility: [facility] Address: [address] [place] [address] Result Comment: Resu lts checked and verified.No clot detected. Performed By: #### 5 7021-8 ####[facility] LABCLIA [id number] [place] [id number] [place] Comprehensive metabolic 2000 panelon 09-21-2023 Albumin [Mass/Vol] 2.9 g/dL Low 3.9-4.9 [facility] Comment on above: Order Comment: Speci men Type: BLOOD SPECIMENOrdering Facility: [facility] Address: [address] [place] [address] Performed By: #### 2 4323-8, 90277-5, 7-1, 3084-1, 04437-3 ####[facility] LABIA [id number] [place] [address] [place] ALP [Catalytic activity/Vol] 59 U/L Normal 34-123 [facility] Comment on above: Order Comment: Speci men Type: BLOOD SPECIMENOrdering Facility: [facility] Address: [address] [place] [address] Performed By: #### 2 4323-8, 57155-9, 7-1, 3084-1, 79935-4 ####[facility] LABCLIA [id number] [place] [address] [place] ALT [Catalytic activity/Vol] 14 U/L Normal 7-38 [facility] Comment on above: Order Comment: Speci men Type: BLOOD SPECIMENOrdering Facility: [facility] Address: [address] [place] [address] Performed By: #### 2 4323-8, 17388-2, 7-1, 3084-1, 74058-8 ####[facility] LABCLIA [id number] [place] [id number] [place] Anion gap [Moles/Vol] 8 mmol/L Low 9-18 [facility] Comment on above: Order Comment: Speci men Type: BLOOD SPECIMENOrdering Facility: [facility] Address: [address] [place] [address] Performed By: #### 2 4323-8, 66894-0, 2777-1, 3084-1, 82830-3 ####[facility] LABCLIA [id number] [place] [address] [place] AST [Catalytic activity/Vol] 24 U/L Normal 13-35 [facility] Comment on above: Order Comment: Speci men Type: BLOOD SPECIMENOrdering Facility: [facility] Address: [address] [place] [address] Performed By: #### 2 4323-8, 02528-8, 7-1, 3084-1, 15895-8 ####[facility] LABCLIA [id number] [place] [address] [place] Bilirubin [Mass/Vol] 0.4 mg/dL Normal 0.2-1.3 [facility] Comment on above: Order Comment: Speci men Type: BLOOD SPECIMENOrdering Facility: [facility] Address: [address] [place] [address] Performed By: #### 2 4323-8, 94079-5, 2777-1, 3084-1, 70345-4 ####[facility] LABCLIA [id number] [place] [address] [place] Calcium [Mass/Vol] 8.3 mg/dL Low 8.5-10.2 [facility] Comment on above: Order Comment: Speci men Type: BLOOD SPECIMENOrdering Facility: [facility] Address: [address] [place] [address] Performed By: #### 2 4323-8, 75130-4, 2777-1, 3084-1, 81507-7 ####[facility] LABCLIA [id number] [place] [address] [place] Chloride [Moles/Vol] 108 mmol/L High 97-105 [facility] Comment on above: Order Comment: Speci men Type: BLOOD SPECIMENOrdering Facility: [facility] Address: [address] [place] [address] Performed By: #### 2 4323-8, 53589-1, 2777-1, 3084-1, 43686-5 ####[facility] [id number] [place] [address] [place] CO2 [Moles/Vol] 22 mmol/L Normal 22-30 [facility] Comment on above: Order Comment: Speci men Type: BLOOD SPECIMENOrdering Facility: [facility] Address: [address] [place] [address] Performed By: #### 2 4323-8, 30291-6, 2777-1, 3084-1, 52628-3 ####[facility] [id number] [place] [address] [place] Creatinine [Mass/Vol] 0.58 mg/dL Normal 0.58-0.96 [facility] Comment on above: Order Comment: Speci men Type: BLOOD SPECIMENOrdering Facility: [facility] Address: [address] [place] [address] Performed By: #### 2 4323-8, 99552-7, 2777-1, 3084-1, 09744-6 ####[facility] [id number] [place] [address] [place] Creatinine and Glomerular filtration rate.predicted panel (S/P/Bld) 91 mL/min/1.73m??? Normal >=60 [facility] Comment on above: Order Comment: Speci men Type: BLOOD SPECIMENOrdering Facility: [facility] Address: [address] [place] [address] Result Comment: Akiko mated Glomerular Filtration Rate [...] actual GFR. Performed By: #### 2 4323-8, 54818-9, 7-1, 3084-1, 37396-5 ####[facility] LABCLIA [id number] [address] [address] [place] Glucose [Mass/Vol] 95 mg/dL Normal 74-99 [facility] Comment on above: Order Comment: Speci rodolfo Type: BLOOD SPECIMENOrdering Facility: [facility] Address: [address] [place] [address] Result Comment: The [place] [employer] (ADA) provides guidance for cutoff [...] Standards of Medical Care in Diabetes 2016, [place] [employer]. Diabetes Care. 2016.39(Suppl 1). Performed By: #### 2 4323-8, 00641-9, 7-1, 3084-1, 39300-5 ####[facility] LABCLIA [id number] [address] [address] [place] Potassium [Moles/Vol] 3.5 mmol/L Low 3.7-5.1 [facility] Comment on above: Order Comment: Qi reynolds Type: BLOOD SPECIMENOrdering Facility: [facility] Address: [address] [place] [address] Performed By: #### 2 4323-8, 37917-1, 7-1, 3084-1, 22647-2 ####[facility] LABCLIA [id number] [address] [address] [place] Protein [Mass/Vol] 5.0 g/dL Low 6.3-8.0 [facility] Comment on above: Order Comment: Speci men Type: BLOOD SPECIMENOrdering Facility: [facility] Address: [address] [place] [address] Performed By: #### 2 4323-8, 56815-3, 2777-1, 3084-1, 81136-2 ####[facility] LABIA [id number] [place] [address] [place] Sodium [Moles/Vol] 138 mmol/L Normal 136-144 [facility] Comment on above: Order Comment: Speci men Type: BLOOD SPECIMENOrdering Facility: [facility] Address: [address] [place] [address] Performed By: #### 2 4323-8, 30366-9, 2777-1, 3084-1, 48178-4 ####[facility] LABIA [id number] [place] [address] [place] Urea nitrogen [Mass/Vol] 6 mg/dL Low 7-21 [facility] Comment on above: Order Comment: Speci men Type: BLOOD SPECIMENOrdering Facility: [facility] Address: [address] [place] [address] Performed By: #### 2 4323-8, 20242-8, 2777-1, 3084-1, 58420-1 ####[facility] LABIA [id number] [place] [id number] [place] Fibrinogen PPP-mCncon 2023 Fibrinogen Coag (PPP) [Mass/Vol] 498 mg/dL High 200-400 [facility] Comment on above: Order Comment: Speci men Type: BLOOD SPECIMENOrdering Facility: [facility] Address: [address] [place] [address] Result Comment: No c lot detected.Checked and Verified\X09\ Performed By: #### 3 255-7, 88826-1, 18502-7 ####[facility] LABIA [id number] [place] [address] [place] Magnesium [facility] 09-20 Magnesium [Mass/Vol] 1.9 mg/dL Normal 1.7-2.3 [facility] Comment on above: Order Comment: Speci men Type: BLOOD SPECIMENOrdering Facility: [facility] Address: [address] [place] [address] Performed By: #### 2 4323-8, 49501-2, 2777-1, 3084-1, 69937-8 ####[facility] LABIA [id number] [address] [place] NT-proBNP [facility] 09-20 Natriuretic peptide.B prohormone N-Terminal [Mass/Vol] 3228 pg/mL High <450 [facility] Comment on above: Order Comment: Speci men Type: BLOOD SPECIMENOrdering Facility: [facility] Address: [address] [place] [address] Performed By: #### 2 4323-8, 85884-7, 2777-1, 3084-1, 33684-2 ####[facility] [id number] [place] [address] [place] NUTRITIONon 09-21-2023 NUTRITION Normal [facility] Outside Hospital Correspo ndenceon 09-21-2023 Outside Hospital Correspondence [id number]#1.00TIFF Normal [facility] PT panel Coag (PPP)on 2023 INR Coag (PPP) [Relative time] 1.3 {INR} Normal 0.9-1.3 [facility] Comment on above: Order Comment: Speci men Type: BLOOD SPECIMENOrdering Facility: [facility] Address: [address] [place] [id number] Result Comment: Clementine min K Antagonist (VKA) Therapeutic Range: INR 2 to 3 (Target INR of 2.5)Note: For patients treated with VKA drugs, such as warfarin, the [place] [employer] 2012 Guideline recommends [...] of 3).Collins HUTCHINS, et al. Chest 2012, 141:7S-47SNishfabrizio RA, et al. [facility] 2017, 70: 252-289 Performed By: #### 3 255-7, 98313-3, 32189-4 ####[facility] [id number] [place] [id number] [place] PT Coag (PPP) [Time] 14.0 s High 9.7-13.0 [facility] Comment on above: Order Comment: Speci men Type: BLOOD SPECIMENOrdering Facility: [facility] Address: [address] [place] [address] Performed By: #### 3 255-7, 49482-3, 30561-6 ####[facility] [id number] [address] [address] [place] Phosphate SerPl-mCncon 09-20 Phosphate [Mass/Vol] 3.2 mg/dL Normal 2.7-4.8 [facility] Comment on above: Order Comment: Speci men Type: BLOOD SPECIMENOrdering Facility: [facility] Address: [address] [place] [address] Performed By: #### 2 4323-8, 93937-6, 2777-1, 3084-1, 64529-0 ####[facility] LABCLIA [id number] [place] [address] [place] Urate SerPl-mCncon Urate [Mass/Vol] 2.6 mg/dL Normal 2.5-6.6 [facility] Comment on above: Order Comment: Speci men Type: BLOOD SPECIMENOrdering Facility: [facility] Address: [address] [place] [address] Performed By: #### 2 4323-8, 56631-0, 2777-1, 3084-1, 60932-4 ####[facility] LABIA [id number] [address] [place] aPTT PPPon 09-21-2023 aPTT Coag (PPP) [Time] 37.5 s High 23.0-32.4 [facility] Comment on above: Order Comment: Speci men Type: BLOOD SPECIMENOrdering Facility: [facility] Address: [address] [place] [address] Performed By: #### 3 255-7, 06061-6, 14287-8 ####[facility] [id number] [address] ACUTE LEUKEMIA NGS PANEL, BL OODon 09-20-2023 ACUTE LEUK NGS PANEL, BLOOD Normal [facility] Comment on above: Order Comment: Speci men Type: BLOOD SPECIMENOrdering Facility: [facility] Address: [address] [place] [address] Result Comment: Acut e Leukemia NGS Panel, BloodLaboratory Accession Number: [id number]:Please see linked document and/or separate report for full result whenavailable.As reviewed by Byron Ingram MD Performed By: #### F 3IP, HDPNGS ####[facility] LIMSCLIA [id number] [address] [place] BLOOD BANK PLACEHOLDER, ANTI BODY INTERPRETATIONon 09-20-2023 BLOOD BANK REPORT, ANTIBODY INTERPRETATION See Pathology Report Normal [facility] Comment on above: Order Comment: Speci men Type: BLOOD SPECIMENOrdering Facility: [facility] Address: [address] [place] [address] Performed By: #### B TREMAINE, TSCR ####[facility] BLOOD BANKIA [id number] [address] [place]#### BBRABI ####[facility] LABIA [id number] [address] BLOOD BANK REPORT, ANTIBODY INTERPRETATIONon 09-20-2023 PATHOLOGY INTERPRETATION Normal [facility] Comment on above: Order Comment: Speci men Type: BLOOD SPECIMENOrdering Facility: [facility] Address: [address] [place] [address] Result Comment: No c linically significant common [...] for compatibility testing. Performed By: #### B TREMAINE TSCR ####[facility] BLOOD BANKCLIA [id number] [address] [place]#### BBRABI ####[facility] LABIA [id number] [place] [address] [place] BMT REC INIT W/Uon 4 ALLOGEN RESULTS TO FOLLOW See Allogen report to follow Normal [facility] Comment on above: Order Comment: Speci men Type: BLOOD SPECIMENOrdering Facility: [facility] Address: [address] [place] [address] Performed By: #### B MTRIW ####[facility] [id number] [place] [address] [place] CASE MGT INIT ASSESon 2023 CASE MGT INIT ASSES Normal [facility] CBC W Auto Differential pane l (Bld)on 09-20-2023 Anisocytosis Ql (Bld) Present Normal [facility] Comment on above: Order Comment: Speci men Type: BLOOD SPECIMENOrdering Facility: [facility] Address: [address] [place] [address] Performed By: #### 5 7021-8, [id number], 19986-4 ####[facility] LABCLIA [id number] [place] [address] [place] Basophils (Bld) [#/Vol] 0.23 10*3/uL High <0.11 [facility] Comment on above: Order Comment: Speci men Type: BLOOD SPECIMENOrdering Facility: [facility] Address: [address] [place] [address] Performed By: #### 5 7021-8, [id number], 57061-0 ####[facility] LABCLIA [id number] [place] [address] [place] Basophils/100 WBC (Bld) 1.0 % Normal [facility] Comment on above: Order Comment: Speci men Type: BLOOD SPECIMENOrdering Facility: [facility] Address: [address] [place] [address] Performed By: #### 5 7021-8, [id number], 92207-2 ####[facility] LABCLIA [id number] [place] [address] [place] BLAST% 74.0 % High <=0.0 [facility] Comment on above: Order Comment: Speci men Type: BLOOD SPECIMENOrdering Facility: [facility] Address: [address] [place] [address] Performed By: #### 5 7021-8, [id number], 26650-2 ####[facility] LABCLIA [id number] [place] [address] [place] Differential cell count method Nom (Bld) Manual Normal [facility] Comment on above: Order Comment: Speci men Type: BLOOD SPECIMENOrdering Facility: [facility] Address: [address] [place] [address] Performed By: #### 5 7021-8, [id number], 68484-6 ####[facility] LABCLIA [id number] [place] [address] [place] Eosinophils (Bld) [#/Vol] 0.00 10*3/uL Normal <0.46 [facility] Comment on above: Order Comment: Speci men Type: BLOOD SPECIMENOrdering Facility: [facility] Address: [address] [place] [address] Performed By: #### 5 7021-8, [id number], 59346-1 ####[facility] LABCLIA [id number] [place] [address] [place] Eosinophils/100 WBC (Bld) 0.0 % Normal [facility] Comment on above: Order Comment: Speci men Type: BLOOD SPECIMENOrdering Facility: [facility] Address: [address] [place] [address] Performed By: #### 5 7021-8, [id number], 84679-5 ####[facility] LABCLIA [id number] [place] [address] [place] Erythrocyte distribution width (RBC) [Ratio] 23.9 % High 11.5-15.0 [facility] Comment on above: Order Comment: Speci men Type: BLOOD SPECIMENOrdering Facility: [facility] Address: [address] [place] [address] Performed By: #### 5 7021-8, [id number], 15880-5 ####[facility] LABCLIA [id number] [place] [address] [place] Hematocrit (Bld) [Volume fraction] 23.5 % Low 36.0-46.0 [facility] Comment on above: Order Comment: Speci men Type: BLOOD SPECIMENOrdering Facility: [facility] Address: [address] [place] [address] Performed By: #### 5 7021-8, [id number], 28453-0 ####[facility] LABCLIA [id number] [place] [address] [place] Hemoglobin (Bld) [Mass/Vol] 8.0 g/dL Low 11.5-15.5 [facility] Comment on above: Order Comment: Speci men Type: BLOOD SPECIMENOrdering Facility: [facility] Address: [address] [place] [address] Performed By: #### 5 7021-8, [id number], 01470-2 ####[facility] LABCLIA [id number] [place] [address] [place] Lymphocytes (Bld) [#/Vol] 2.48 10*3/uL Normal 1.00-4.00 [facility] Comment on above: Order Comment: Speci men Type: BLOOD SPECIMENOrdering Facility: [facility] Address: [address] [place] [address] Performed By: #### 5 7021-8, [id number], 38229-3 ####[facility] LABCLIA [id number] [place] [address] [place] Lymphocytes/100 WBC (Bld) 11.0 % Normal [facility] Comment on above: Order Comment: Speci men Type: BLOOD SPECIMENOrdering Facility: [facility] Address: [address] [place] [address] Performed By: #### 5 7021-8, [id number], 59667-5 ####[facility] LABCLIA [id number] [place] [address] [place] MCH (RBC) [Entitic mass] 31.4 pg Normal 26.0-34.0 [facility] Comment on above: Order Comment: Speci men Type: BLOOD SPECIMENOrdering Facility: [facility] Address: [address] [place] [address] Performed By: #### 5 7021-8, [id number], 74564-7 ####[facility] LABCLIA [id number] [place] [address] [place] MCHC (RBC) [Mass/Vol] 34.0 g/dL Normal 30.5-36.0 [facility] Comment on above: Order Comment: Speci men Type: BLOOD SPECIMENOrdering Facility: [facility] Address: [address] [place] [address] Performed By: #### 5 7021-8, [id number], 72585-3 ####[facility] LABCLIA [id number] [place] [address] [place] MCV (RBC) [Entitic vol] 92.2 fL Normal 80.0-100.0 [facility] Comment on above: Order Comment: Speci men Type: BLOOD SPECIMENOrdering Facility: [facility] Address: [address] [place] [address] Performed By: #### 5 7021-8, [id number], 58904-8 ####[facility] LABCLIA [id number] [place] [address] [place] Monocytes (Bld) [#/Vol] 0.00 10*3/uL Normal <0.87 [facility] Comment on above: Order Comment: Speci men Type: BLOOD SPECIMENOrdering Facility: [facility] Address: [address] [place] [address] Performed By: #### 5 7021-8, [id number], 51174-1 ####[facility] LABCLIA [id number] [place] [address] [place] Monocytes/100 WBC (Bld) 0.0 % Normal [facility] Comment on above: Order Comment: Speci men Type: BLOOD SPECIMENOrdering Facility: [facility] Address: [address] [place] [address] Performed By: #### 5 7021-8, [id number], 44179-0 ####[facility] LABCLIA [id number] [place] [address] [place] Neutrophils (Bld) [#/Vol] 3.16 10*3/uL Normal 1.45-7.50 [facility] Comment on above: Order Comment: Speci men Type: BLOOD SPECIMENOrdering Facility: [facility] Address: [address] [place] [address] Performed By: #### 5 7021-8, [id number], 20591-9 ####[facility] LABCLIA [id number] [place] [address] [place] Neutrophils/100 WBC (Bld) 14.0 % Normal [facility] Comment on above: Order Comment: Speci men Type: BLOOD SPECIMENOrdering Facility: [facility] Address: [address] [place] [address] Performed By: #### 5 7021-8, [id number], 33512-9 ####[facility] LABCLIA [id number] [place] [address] [place] Nucleated RBC (Bld) [#/Vol] 10*3/uL Normal <0.01 [facility] Comment on above: Order Comment: Speci men Type: BLOOD SPECIMENOrdering Facility: [facility] Address: [address] [place] [address] Performed By: #### 5 7021-8, [id number], 57451-9 ####[facility] LABCLIA [id number] [place] [address] [place] Nucleated RBC/100 WBC (Bld) [Ratio] 0.0 /100 WBC Normal [facility] Comment on above: Order Comment: Speci men Type: BLOOD SPECIMENOrdering Facility: [facility] Address: [address] [place] [address] Performed By: #### 5 7021-8, [id number], 95980-0 ####[facility] LABCLIA [id number] [place] [address] [place] Ovalocytes LM Ql (Bld) Few Normal [facility] Comment on above: Order Comment: Speci men Type: BLOOD SPECIMENOrdering Facility: [facility] Address: [address] [place] [address] Performed By: #### 5 7021-8, [id number], 06279-3 ####[facility] LABCLIA [id number] [place] [address] [place] Platelet mean volume (Bld) [Entitic vol] Normal [facility] Comment on above: Order Comment: Speci men Type: BLOOD SPECIMENOrdering Facility: [facility] Address: [address] [place] [address] Result Comment: Unab le to Report. Performed By: #### 5 7021-8, [id number], 14534-3 ####[facility] LABCLIA [id number] [place] [address] [place] Platelets (Bld) [#/Vol] 14 10*3/uL Low 150-400 [facility] Comment on above: Order Comment: Speci men Type: BLOOD SPECIMENOrdering Facility: [facility] Address: [address] [place] [address] Result Comment: No c lot detected.Results checked and verified. Performed By: #### 5 7021-8, [id number], 48461-5 ####[facility] LABCLIA [id number] [place] [address] [place] Platelets Estimate (Bld) [#/Vol] Decreased Normal [facility] Comment on above: Order Comment: Speci men Type: BLOOD SPECIMENOrdering Facility: [facility] Address: [address] [place] [address] Performed By: #### 5 7021-8, [id number], 79376-9 ####[facility] LABCLIA [id number] [place] [address] [place] RBC (Bld) [#/Vol] 2.55 10*6/uL Low 3.90-5.20 [facility] Comment on above: Order Comment: Speci men Type: BLOOD SPECIMENOrdering Facility: [facility] Address: [address] [place] [address] Performed By: #### 5 7021-8, [id number], 14223-3 ####[facility] LABIA [id number] [place] [address] [place] RED CELL MORPH Reviewed: see result s of individual morphologies Normal [facility] Comment on above: Order Comment: Speci men Type: BLOOD SPECIMENOrdering Facility: [facility] Address: [address] [place] [address] Performed By: #### 5 7021-8, [id number], 42524-3 ####[facility] LABCLIA [id number] [place] [address] [place] WBC (Bld) [#/Vol] 22.55 10*3/uL High 3.70-11.00 [facility] Comment on above: Order Comment: Speci men Type: BLOOD SPECIMENOrdering Facility: [facility] Address: [address] [place] [address] Result Comment: No c lot detected.Results checked and verified. Performed By: #### 5 7021-8, [id number], 12176-3 ####[facility] LABCLIA [id number] [place] [address] [place] CHROM JAMIE LEUK BLDon 09-19 CHROMOSOME LEUK BLD Normal [facility] Comment on above: Order Comment: Speci men Type: BLOOD SPECIMENOrdering Facility: [facility] Address: [address] [place] [address] Result Comment: Julio maria Accession Number: [id number]: Shazia SalehPathologist: N/ASurgical Pathology No: N/AClinical diagnosis: Acute Myeloid LeukemiaSpecimen Type: Leukemic BloodReceived Date: 09/20/2023Number of cells counted: 20Number of cells analyzed: 20Number of cells karyotyped: 20Banding resolution: 400Banding method: G-bandingDIAGNOSIS: 45,XX,add(1)(p31),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 The complexity of the karyotype, including monosomy 7 andt(3;3) are unfavorable prognostic features., and adding tyrosinekinase inhibitor therapy may be of benefit.Clinical and pathologic correlation is recommended.As reviewed by Monty Andrade MDPerformed by [facility] Medical CenterPathology and Laboratory Medicine InstituteDipiedmont eastside south campusion of Molecular PathologyCytogenetics Lab, [facility]-[id number]. [place], [place] [address]Phone: Toll free: Performed By: #### C HRBLL ####[facility] LIMSCLIA [id number] [address] [place] CNPNon 09-20-2023 CNPN Normal [facility] CONFIRM BLOOD TYPEon 024 ABO B Normal [facility] Comment on above: Order Comment: Speci men Type: BLOOD SPECIMENOrdering Facility: [facility] Address: [address] [place] [address] Performed By: #### C ONABO ####[facility] BLOOD BANKIA [id number] [place] [address] [place] Rh Nom (Bld) Positive Normal [facility] Comment on above: Order Comment: Speci men Type: BLOOD SPECIMENOrdering Facility: [facility] Address: [address] [place] [address] Performed By: #### C ONABO ####[facility] BLOOD BANKIA [id number] [place] [address] [place] Comprehensive metabolic 2000 panelon 09-20-2023 Albumin [Mass/Vol] 3.1 g/dL Low 3.9-4.9 [facility] Comment on above: Order Comment: Speci men Type: BLOOD SPECIMENOrdering Facility: [facility] Address: [address] [place] [address] Performed By: #### 2 4323-8, 28607-6, 2777-1, 3084-1 ####[facility] LABCLIA [id number] [address] [address] [place] ALP [Catalytic activity/Vol] 59 U/L Normal 34-123 [facility] Comment on above: Order Comment: Speci men Type: BLOOD SPECIMENOrdering Facility: [facility] Address: [address] [place] [address] Performed By: #### 2 4323-8, 34204-0, 2776-07, 3083- ####[facility] LABCLIA [id number] [address] [address] [place] ALT [Catalytic activity/Vol] 15 U/L Normal 7-38 [facility] Comment on above: Order Comment: Speci men Type: BLOOD SPECIMENOrdering Facility: [facility] Address: [address] [place] [address] Performed By: #### 2 4323-8, 42144-7, 2776-07, 3083- ####[facility] LABCLIA [id number] [address] [address] [place] Anion gap [Moles/Vol] 11 mmol/L Normal 9-18 [facility] Comment on above: Order Comment: Speci men Type: BLOOD SPECIMENOrdering Facility: [facility] Address: [address] [place] [address] Performed By: #### 2 4323-8, 75575-9, 2776-07, 3083- ####[facility] LABCLIA [id number] [address] [address] [place] AST [Catalytic activity/Vol] 31 U/L Normal 13-35 [facility] Comment on above: Order Comment: Speci men Type: BLOOD SPECIMENOrdering Facility: [facility] Address: [address] [place] [address] Performed By: #### 2 4323-8, 65847-9, 2776-, 3083- ####[facility] LABCLIA [id number] [address] [address] [place] Bilirubin [Mass/Vol] 0.4 mg/dL Normal 0.2-1.3 [facility] Comment on above: Order Comment: Speci men Type: BLOOD SPECIMENOrdering Facility: [facility] Address: [address] [place] [address] Performed By: #### 2 4323-8, 52036-5, 2776-, 3083-1 ####[facility] LABCLIA [id number] [place] [address] [place] Calcium [Mass/Vol] 8.1 mg/dL Low 8.5-10.2 [facility] Comment on above: Order Comment: Speci men Type: BLOOD SPECIMENOrdering Facility: [facility] Address: [address] [place] [address] Performed By: #### 2 4323-8, 83372-3, 2776-07, 3083- ####[facility] LABCLIA [id number] [place] [address] [place] Chloride [Moles/Vol] 107 mmol/L High 97-105 [facility] Comment on above: Order Comment: Speci men Type: BLOOD SPECIMENOrdering Facility: [facility] Address: [address] [place] [address] Performed By: #### 2 4323-8, 56935-7, 2776-07, 3083-1 ####[facility] LABCLIA [id number] [place] [id number] [place] CO2 [Moles/Vol] 21 mmol/L Low 22-30 [facility] Comment on above: Order Comment: Speci men Type: BLOOD SPECIMENOrdering Facility: [facility] Address: [address] [place] [address] Performed By: #### 2 4323-8, 74771-9, 277-, 3083-1 ####[facility] LABCLIA [id number] [place] [address] [place] Creatinine [Mass/Vol] 0.60 mg/dL Normal 0.58-0.96 [facility] Comment on above: Order Comment: Speci men Type: BLOOD SPECIMENOrdering Facility: [facility] Address: [address] [place] [address] Performed By: #### 2 4323-8, 90782-1, 2777-1, 3084-1 ####[facility] [id number] [place] [address] [place] Creatinine and Glomerular filtration rate.predicted panel (S/P/Bld) 90 mL/min/1.73m??? Normal >=60 [facility] Comment on above: Order Comment: Qi reynolds Type: BLOOD SPECIMENOrdering Facility: [facility] Address: [address] [place] [address] Result Comment: Akiko mated Glomerular Filtration Rate [...] actual GFR. Performed By: #### 2 4323-8, 53389-9, 2777-1, 3084-1 ####[facility] LABIA [id number] [place] [address] [place] Glucose [Mass/Vol] 92 mg/dL Normal 74-99 [facility] Comment on above: Order Comment: Speci men Type: BLOOD SPECIMENOrdering Facility: [facility] Address: [address] [place] [address] Result Comment: The [place] Diabetes Association (ADA) provides guidance for cutoff [...] Standards of Medical Care in Diabetes 2016, [place] Diabetes Association. Diabetes Care. 2016.39(Suppl 1). Performed By: #### 2 4323-8, 23409-9, 2776-, 3083-1 ####[facility] LABCLIA [id number] [address] [address] [place] Potassium [Moles/Vol] 3.9 mmol/L Normal 3.7-5.1 [facility] Comment on above: Order Comment: Speci men Type: BLOOD SPECIMENOrdering Facility: [facility] Address: [address] [place] [address] Performed By: #### 2 4323-8, 44586-4, 2776-07, 3083- ####[facility] LABIA [id number] [place] [id number] [place] Protein [Mass/Vol] 5.4 g/dL Low 6.3-8.0 [facility] Comment on above: Order Comment: Qi reynolds Type: BLOOD SPECIMENOrdering Facility: [facility] Address: [address] [place] [address] Performed By: #### 2 4323-8, 03183-9, 2776-07, 3083-07 ####[facility] LABIA [id number] [address] [address] [place] Sodium [Moles/Vol] 139 mmol/L Normal 136-144 [facility] Comment on above: Order Comment: Nikkii men Type: BLOOD SPECIMENOrdering Facility: [facility] Address: [address] [place] [address] Performed By: #### 2 4323-8, 19397-6, 2776-07, 3083-1 ####[facility] LABCLIA [id number] [place] [address] [place] Urea nitrogen [Mass/Vol] 8 mg/dL Normal 7-21 [facility] Comment on above: Order Comment: Speci men Type: BLOOD SPECIMENOrdering Facility: [facility] Address: [address] [place] [address] Performed By: #### 2 4323-8, 62269-2, 2777-1, 3084-1 ####[facility] LABCLIA [id number] [place] [id number] [place] ECG COMPLETEon 09-20-2023 ECG COMPLETE Normal [facility] FLOW CYTOMETRY FOR LEUKEMIA/ LYMPHOMA (FCLL) PERFORMABLEon 09-20-2023 FLOW CYTOMETRY ORDER STATUS See Results in chart under F case ID Normal [facility] Comment on above: Order Comment: Speci men Type: BLOOD SPECIMENOrdering Facility: [facility] Address: [address] [place] [address] Performed By: #### F CLLRFLX, FCLLP ####[facility] LABCLIA [id number] [address] [place] FLOW CYTOMETRY FOR LEUKEMIA/ LYMPHOMA (FCLL) REFLEXon 09-20-2023 DIAGNOSIS COMMENT Normal [facility] Comment on above: Order Comment: Speci men Type: BLOOD SPECIMENOrdering Facility: [facility] Address: [address] [place] [address] Result Comment: This test was developed and its performance characteristics determined by [facility]'s [facility] [place] (RT-PLMI). It has not been cleared or approved by the FDA. RT-PLVT is regulated under CLIA as qualified to perform high-complexity testing. This test is used for clinical purposes. It should not be regarded as investigational or for research. Performed By: #### F CLLRFLX, FCLLP ####[facility] LABCLIA [id number] [place] [id number] [place] FINAL PERFORMING LAB Normal [facility] Comment on above: Order Comment: Speci men Type: BLOOD SPECIMENOrdering Facility: [facility] Address: [address] [place] [address] Result Comment: Diag nostic interpretation performed at [facility], [address] [place] [address] CLIA# [id number] Director: Jordan García M.D. Performed By: #### F CLLRFLX, FCLLP ####[facility] LABCLIA [id number] [address] FLOW CYTOMETRY RESULTS Normal [facility] Comment on above: Order Comment: Speci men Type: BLOOD SPECIMENOrdering Facility: [facility] Address: [address] [place] [address] Result Comment: Spec imen type: Peripheral bloodCBC [...] NegativeCD5 T-cells NegativeCD7 T/NK-cells PositiveCD8 T-cell subset WkgdbjuxBE25 B-cell subset ZsdlmuowHK42d Myeloid AozchtgtZM47 Myeloid Positive (subset)CD14 Monocytes VjozbzxiDP27 Myeloid GjdjxsnfKH72 B-cells YohlswhmWG67 B-cells YiibqiumEJ46 B-cells ObrcpnryAT39 Myeloid Positive (minor subset)CD34 Blasts Positive (subset)CD38 Activation CaqfxxurOU45 Can-leukocyte Positive (dim)CD56 T/NK-cells OolqmbnePJ16 Myeloid DmcpwtsmJV58 Myeloid PieewnmvEN005 Blasts Positive (subset)HLA-DR B-cells Positive (subset)MPO MarkersMarker Normal Cell Type Result (Blasts)cCD3 T-cells LarockvofCU80 B-cells NegativeMPO Grans NegativeFlow cytometric analysis of [...] and B-cells (8%). Performed By: #### F CLLRFLXLEONID ####[facility] LABCLIA [id number] [place] [address] [place] GROSS DESCRIPTION A. BLOOD Normal [facility] Comment on above: Order Comment: Speci men Type: BLOOD SPECIMENOrdering Facility: [facility] Address: [address] [place] [address] Result Comment: RECE IVED 3 ML OF PERIPHERAL BLOOD IN EDTA Performed By: #### F CLLRFLEONID ALDRICH ####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 LABCLIA [id number] [place] [address] [place] FLT3 ITD HN PANEL BLOODon [facility] SIGNOUT PATHOLOGIST [id number] Normal [facility] Comment on above: Order Comment: Speci men Type: BLOOD SPECIMENOrdering Facility: [facility] Address: [address] [place] [address] Performed By: #### F LAURA ALVARADO ####[facility] DON [id number] [facility] [address] [place] FLT3 ITD HN PANEL BLOOD Normal [facility] Comment on above: Order Comment: Speci men Type: BLOOD SPECIMENOrdering Facility: [facility] Address: [address] [place], [place] [address] [address] Result Comment: FLT3 Internal Tandem Duplication (ITD) Mutation TestingLaboratory Accession Number: [id number] Internal Tandem Duplication (ITD) mutation: Not DetectedComment:FLT3/ITD [...] from the specimen provided. Regions of the CNM2gxjuzrus kinase receptor gene are subjected to the [...] was developed and its performance characteristics determinedby [facility]'s [facility] Pathology and LaboratoryMedicine [place] ([facility]). It has not been cleared or approved bythe FDA. -PLMI is regulated under CLIA as certified to perform high-complexity testing. This test is used for clinical purposes. It shouldnot be regarded as investigational or for research.Testing and interpretation performed at [facility], [address] [place] [address]. CLIA Number: [id number] reviewed by Maria A Doyle, PhD, [facility] Performed By: #### F 3ILAURA Grace ####[facility] LIMSCLIA [id number] [place] [address] [place] Fibrinogen PPP-mCncon 2023 Fibrinogen Coag (PPP) [Mass/Vol] 476 mg/dL High 200-400 [facility] Comment on above: Order Comment: Speci men Type: BLOOD SPECIMENOrdering Facility: [facility] Address: [address] [place] [address] Result Comment: Samp le checked for clot.Result rechecked. Performed By: #### 3 4528-0, 83215-3, 3255-7 ####[facility] LABCLIA [id number] [place] [address] [place] HBV core Ab Ser Qlon 024 HBV core Ab Ql (S) Negative Normal Negative [facility] Comment on above: Order Comment: Speci men Type: BLOOD SPECIMENOrdering Facility: [facility] Address: [address] [place] [address] Result Comment: No e vidence of current or past infection with Hepatitis B virus. Should recent infection be suspected, repeat testing may be considered 3-4 weeks after this draw. Performed By: #### 5 195-3, 54724-4, 54523-5, 25731-9 ####[facility] LABCLIA [id number] [place] [address] [place] HBV surface Ab Ql (S)on HBV surface Ab Qn (S) <8.00 Normal [facility] Comment on above: Order Comment: Speci men Type: BLOOD SPECIMENOrdering Facility: [facility] Address: [address] [place] [address] Result Comment: <8 m IU/mL: No serological evidence of immunity to Hepatitis B Virus.>/= 8 to <12 mIU/mL: No serological evidence of immunity to Hepatitis B Virus.>/= 12 mIU/mL: Consistent with serological evidence of immunity to Hepatitis B Virus. Performed By: #### 5 195-3, 85385-0, 60690-2, 64781-3 ####[facility] LABCLIA [id number] [place] [address] [place] HBV surface Ab Ser Qlon HBV surface Ab Ql (S) Negative Normal [facility] Comment on above: Order Comment: Speci men Type: BLOOD SPECIMENOrdering Facility: [facility] Address: [address] [place] [address] Result Comment: No s erological evidence of immunity to Hepatitis B Virus. Performed By: #### 5 195-3, 45165-2, 87674-3, 05198-8 ####[facility] LABCLIA [id number] [place] [address] [place] HBV surface Ag Ser Qlon HBV surface Ag Ql (S) Negative Normal Negative [facility] Comment on above: Order Comment: Speci men Type: BLOOD SPECIMENOrdering Facility: [facility] Address: [address] [place] [address] Performed By: #### 5 195-3, 71053-2, 85257-1, 32182-6 ####[facility] LABCLIA [id number] [place] [address] [place] HCV Ab Ser Qlon 09-20-2023 HCV Ab Ql (S) Negative Normal Negative [facility] Comment on above: Order Comment: Speci men Type: BLOOD SPECIMENOrdering Facility: [facility] Address: [address] [place] [address] Result Comment: The result suggests no evidence of active infection with Hepatitis C virus. Should recent infection be suspected, repeat testing may be considered 4-6 weeks after this draw. Performed By: #### 1 6128-1 ####[facility] LABCLIA [id number] [place] [address] [place] HISTORY PHYSICALon 4 HISTORY PHYSICAL Normal [facility] HIV 1+2 Ab IA Qlon 4 HIV 1 and 2 Ab IA.rapid Nom (S/P/Bld) Normal [facility] Comment on above: Order Comment: Speci men Type: BLOOD SPECIMENOrdering Facility: [facility] Address: [address] [place] [address] Result Comment: Test not indicated. Performed By: #### 5 195-3, 40944-1, 60389-1, 64335-1 ####[facility] LABCLIA [id number] [place] [address] [place] HIV 1+2 Ab+HIV1 p24 Ag IA Ql Non-Reactive Normal Nonreactive [facility] Comment on above: Order Comment: Speci men Type: BLOOD SPECIMENOrdering Facility: [facility] Address: [address] [place] [address] Performed By: #### 5 195-3, 56071-2, 86550-6, 46500-1 ####[facility] LABIA [id number] [place] [address] [place] HIV immunoassay testing algorithm interpretation (S/P/Bld) [Interp] Normal [facility] Comment on above: Order Comment: Speci men Type: BLOOD SPECIMENOrdering Facility: [facility] Address: [address] [place] [address] Result Comment: No e vidence of HIV-1 or HIV-2 infection. Should recent infection be suspected, repeat testing may be considered 2-3 weeks after this draw.[place] Rev. Code 3701.243(E): This information has been [...] or diagnoses. Performed By: #### 5 195-3, 98443-8, 74889-0, 93817-6 ####[facility] LABIA [id number] [place] [address] [place] HbA1c (Bld)on 09-20-2023 Average glucose Estimated from glycated hemoglobin (Bld) [Mass/Vol] 103 mg/dL Normal [facility] Comment on above: Order Comment: Speci men Type: BLOOD SPECIMENOrdering Facility: [facility] Address: [address] [place] [address] Result Comment: eAG: (Estimated average glucose) is a calculated value from HgbA1c and is outbound call center representative of the average blood glucose level in the last 2-3 month period. Performed By: #### 5 7021-8, TNL4917, 97629-1 ####[facility] LABIA [id number] [place] [address] [place] HbA1c (Bld) [Mass fraction] 5.2 % Normal 4.3-5.6 [facility] Comment on above: Order Comment: Speci men Type: BLOOD SPECIMENOrdering Facility: [facility] Address: [address] [place] [address] Result Comment: [place] Diabetes Association guidelines indicate that patients with HgbA1c in the range 5.7-6.4% are at increased risk for development of diabetes, and intervention by lifestyle modification may be beneficial. HgbA1c greater or equal to 6.5% is considered diagnostic of diabetes. Performed By: #### 5 7021-8, UGJ1450, 83016-7 ####[facility] LABCLIA [id number] [place] [address] [place] LDH SerPl-cCncon 09-20-2023 LDH [Catalytic activity/Vol] 1496 U/L High 135-214 [facility] Comment on above: Order Comment: Nikkii men Type: BLOOD SPECIMENOrdering Facility: [facility] Address: [address] [place] [address] Performed By: #### 2 532-0 ####[facility] LABCLIA [id number] [place] [address] [place] Magnesium SerPl-mCncon 09-19 Magnesium [Mass/Vol] 1.8 mg/dL Normal 1.7-2.3 [facility] Comment on above: Order Comment: Nikkii men Type: BLOOD SPECIMENOrdering Facility: [facility] Address: [address] [place] [address] Performed By: #### 2 4323-8, 36970-0, 2777-1, 3084-1 ####[facility] LABIA [id number] [place] [id number] [place] PATH INTERP CBCDIF (LAB REFL EX ORDER-NO BILL)on 09-20-2023 [employer] review Vish (Unsp spec) [Interp] Reviewed by Delilah Frost MD [facility] Comment on above: Order Comment: Speci men Type: BLOOD SPECIMENOrdering Facility: [facility] Address: [address] [place] [address] Performed By: #### 5 7021-8, DLD9868, 49659-7 ####[facility] LABCLIA [id number] [address] [place] STAFF REVIEW, CBCDIF Normal [facility] Comment on above: Order Comment: Speci men Type: BLOOD SPECIMENOrdering Facility: [facility] Address: [address] [place] [address] Result Comment: Cons istent with acute leukemia. Recommend correlation with bone marrow and flow cytometry results.Microcytic anemia suggestive of iron deficiency or anemia of chronic diseaseThrombocytopenia Performed By: #### 5 7021-8, VAG3883, 67234-1 ####[facility] LABCLIA [id number] [address] [place] PT panel Coag (PPP)on 2023 INR Coag (PPP) [Relative time] 1.4 {INR} High 0.9-1.3 [facility] Comment on above: Order Comment: Speci rodolfo Type: BLOOD SPECIMENOrdering Facility: [facility] Address: [address] [place] [address] Result Comment: Clementine min K Antagonist (VKA) Therapeutic Range: INR 2 to 3 (Target INR of 2.5)Note: For patients treated with VKA drugs, such as warfarin, the [place] [employer] 2012 Guideline recommends [...] al. Chest 2012, 141:7S-47SKenny RA, et al. [facility] 2017, 70: 252-289 Performed By: #### 3 4528-0, 26577-8, 3255-7 ####[facility] LABCLIA [id number] [place] [id number] [place] PT Coag (PPP) [Time] 14.5 s High 9.7-13.0 [facility] Comment on above: Order Comment: Speci men Type: BLOOD SPECIMENOrdering Facility: [facility] Address: [address] [place] [address] Performed By: #### 3 4528-0, 96718-7, 3255-7 ####[facility] LABCLIA [id number] [address] [place] Phosphate SerPl-mCncon 09-19 Phosphate [Mass/Vol] 2.7 mg/dL Normal 2.7-4.8 [facility] Comment on above: Order Comment: Speci men Type: BLOOD SPECIMENOrdering Facility: [facility] Address: [address] [place] [address] Performed By: #### 2 4323-8, 00538-7, 2777-1, 3084-1 ####[facility] LABCLIA [id number] [address] [place] SOCIAL WORKon 09-20-2023 SOCIAL WORK Normal [facility] TYPE + SCREENon 09-20-2023 HISTORICAL AB SCR STATUS Negative Normal [facility] Comment on above: Order Comment: Speci men Type: BLOOD SPECIMENOrdering Facility: [facility] Address: [address] [place] [address] Performed By: #### B TREMAINE, TSCR ####[facility] BLOOD BANKCLIA [id number] [place] [address] [place]#### BBRABI ####[facility] LABCLIA [id number] [place] [id number] [place] TYPE AND SCREEN EXPIRATION 09/23/2023 23:59 Normal [facility] Comment on above: Order Comment: Speci men Type: BLOOD SPECIMENOrdering Facility: [facility] Address: [address] [place] [address] Performed By: #### B TREMAINE, [facility] ####[facility] BLOOD BANKIA [id number] [place] [address] [place]#### BBRABI ####[facility] LABCLIA [id number] [place] [address] [place] Urate SerPl-mCncon 4 Urate [Mass/Vol] 3.3 mg/dL Normal 2.5-6.6 [facility] Comment on above: Order Comment: Speci men Type: BLOOD SPECIMENOrdering Facility: [facility] Address: [address] [place] [address] Performed By: #### 2 4323-8, 12014-1, 2777-1, 3084-1 ####[facility] LABIA [id number] [place] [address] [place] Urinalysis complete panel (U )on 09-20-2023 Bacteria LM.HPF (Urine sed) [#/Area] Negative Normal Negative [facility] Comment on above: Order Comment: Speci men Type: URINE SPECIMENOrdering Facility: [facility] Address: [address] [place] [address] Performed By: #### 2 4356-8 ####[facility] LABCLIA [id number] [place] [address] [place] Bilirubin Ql (U) Negative Normal Negative [facility] Comment on above: Order Comment: Speci men Type: URINE SPECIMENOrdering Facility: [facility] Address: [address] [place] [address] Performed By: #### 2 4356-8 ####[facility] LABCLIA [id number] [place] [address] [place] Clarity (Unsp spec) Clear Normal Clear [facility] Comment on above: Order Comment: Speci men Type: URINE SPECIMENOrdering Facility: [facility] Address: [address] [place] [address] Performed By: #### 2 4356-8 ####[facility] LABCLIA [id number] [place] [address] [place] Color (U) Yellow Normal Yellow [facility] Comment on above: Order Comment: Speci men Type: URINE SPECIMENOrdering Facility: [facility] Address: [address] [place] [address] Performed By: #### 2 4356-8 ####[facility] LABCLIA [id number] [place] [address] [place] Epithelial cells LM.HPF (Urine sed) [#/Area] None Seen Normal [facility] Comment on above: Order Comment: Speci men Type: URINE SPECIMENOrdering Facility: [facility] Address: [address] [place] [address] Performed By: #### 2 4356-8 ####[facility] LABCLIA [id number] [place] [address] [place] Glucose Test strip (U) [Mass/Vol] Negative Normal Negative [facility] Comment on above: Order Comment: Speci men Type: URINE SPECIMENOrdering Facility: [facility] Address: [address] [place] [address] Performed By: #### 2 4356-8 ####[facility] LABCLIA [id number] [place] [address] [place] Hemoglobin Ql (U) Trace Abnormal Negative [facility] Comment on above: Order Comment: Speci men Type: URINE SPECIMENOrdering Facility: [facility] Address: [address] [place] [address] Performed By: #### 2 4356-8 ####[facility] LABCLIA [id number] [place] [address] [place] Hyaline casts (Urine sed) [#/Area] 0 /[LPF] Normal 0 /LPF [facility] Comment on above: Order Comment: Speci men Type: URINE SPECIMENOrdering Facility: [facility] Address: [address] [place] [address] Performed By: #### 2 4356-8 ####[facility] LABCLIA [id number] [place] [address] [place] Ketones Ql (U) Negative Normal Negative [facility] Comment on above: Order Comment: Speci men Type: URINE SPECIMENOrdering Facility: [facility] Address: [address] [place] [address] Performed By: #### 2 4356-8 ####[facility] LABCLIA [id number] [place] [address] [place] Leukocyte esterase Test strip Ql (U) Trace Abnormal Negative [facility] Comment on above: Order Comment: Speci men Type: URINE SPECIMENOrdering Facility: [facility] Address: [address] [place] [address] Performed By: #### 2 4356-8 ####[facility] LABCLIA [id number] [place] [address] [place] Nitrite Ql (U) Negative Normal Negative [facility] Comment on above: Order Comment: Speci men Type: URINE SPECIMENOrdering Facility: [facility] Address: [address] [place] [address] Performed By: #### 2 4356-8 ####[facility] LABCLIA [id number] [place] [address] [place] pH (U) 6.5 [pH] Normal <8.5 [facility] Comment on above: Order Comment: Speci men Type: URINE SPECIMENOrdering Facility: [facility] Address: [address] [place] [address] Performed By: #### 2 4356-8 ####[facility] LABIA [id number] [place] [address] [place] Protein (U) [Mass/Vol] Trace Abnormal Negative [facility] Comment on above: Order Comment: Speci men Type: URINE SPECIMENOrdering Facility: [facility] Address: [address] [place] [address] Performed By: #### 2 4356-8 ####[facility] LABIA [id number] [place] [address] [place] RBC LM.HPF (Urine sed) [#/Area] 0-2 /HPF Normal 0-2 /HPF [facility] Comment on above: Order Comment: Speci men Type: URINE SPECIMENOrdering Facility: [facility] Address: [address] [place] [address] Performed By: #### 2 4356-8 ####[facility] [id number] [place] [address] [place] Specific gravity (U) [Rel density] 1.014 Normal 1.005-1.030 [facility] Comment on above: Order Comment: Speci men Type: URINE SPECIMENOrdering Facility: [facility] Address: [address] [place] [address] Performed By: #### 2 4356-8 ####[facility] [id number] [place] [address] [place] Urobilinogen Ql (U) 1.0 EU/dL Normal 0.2-1.0 EU/dL [facility] Comment on above: Order Comment: Speci men Type: URINE SPECIMENOrdering Facility: [facility] Address: [address] [place] [address] Performed By: #### 2 4356-8 ####[facility] [id number] [id number] [place] [address] WBC LM.HPF (Urine sed) [#/Area] 0-5 /HPF Normal 0-5 /HPF [facility] Comment on above: Order Comment: Speci men Type: URINE SPECIMENOrdering Facility: [facility] Address: [address] [place] [address] Performed By: #### 2 4356-8 ####[facility] LABCLIA [id number] [place] [address] [place] XR CHEST 2V FRONTAL/LATon XR CHEST 2V FRONTAL/LAT Normal [facility] aPTT PPPon 09-20-2023 aPTT Coag (PPP) [Time] 33.9 s High 23.0-32.4 [facility] Comment on above: Order Comment: Speci men Type: BLOOD SPECIMENOrdering Facility: [facility] Address: [address] [place] [address] Performed By: #### 3 4528-0, 09836-7, 3255-7 ####[facility] LABCLIA [id number] [address] [place] Ambulatory Visit Summaryon 0 09-18-2023 Ambulatory Visit Summary MYRNA SHEN :1940 Visit Date:09/18/2023 Ambulatory Visit Instructions Your Diagnosis BMI 28.0-28.9,adult Your Care Team Attending Physician - Darby Hamlin MD Primary Care Physician - Darby Hamlin MD This Is Your Medications List [facility] Prescription (Test strips) amlodipine (amLODIPine 5 mg [...] Follow-Up Appointments Sunday 3:15 PM EST With: Boubacar VINCENT, Darby Garay Where: [facility] Melody Normal [facility] [place] Medicine Office/Clini c Noteon 09-18-2023 Family Medicine [...] Problem List/Past Medical History 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 Dehydration Hx of [...] (COVID-19) mRNA-1273 vaccine 08/20/2020 Recorded Normal [facility] Comment on above: Result Comment: Elec tronically Signed By: Boubacar VINCENT, Darby Goode.br\Date and Time Signed: 09/18/23 12:38 EST Leland 09-18-2023 L Specimen: [id number] Received: 09/18/23-1436 Status: SOUT Rezachary Num: [id number] Spec Type: Impression Subm Dr: Melody,Lab Tissues: PATHPER Procedures: PATHREVIEW Age/ Patient Sex Location Account Attending Physician Myrna Shen 83/F LABE[place] [id number] NON STAFF SPEC NUM: [id number] RECD: 09/18/23 STATUS: RADHA NI NUM: [id number] SYBIL: 09/18/[address]: Melody,Lab ENTERED: 09/18/[address]: SPEC TYPE: Impression DEPT: TERRA Grace ENTERED BY: [id number] RECV BY: [id number] ORDERED: PATHREVIEW ORDERED: PATHREVIEW Pathologist Review Abnormal [...] observation at 3:20 PM on 09/18/2023 CPT: 55202 CBC No results available. Specimen: [id number] Received: 09/18/23 Status: RADHA Ni Num: [id number] Spec Type: Impression Subm Dr: Melody,Lab Tissues: PATHPER Procedures: PATHREVIEW Patient: Myrna Shen [id number] (Continued) Signed (signature on file) Randall Casillas MD 09/18/23 1528 Normal [facility] Ambulatory Visit Summaryon 0 08-31-2023 Ambulatory Visit [...] Hamlin MD This Is Your Medications List [facility] Prescription (Test strips) amlodipine (amLODIPine 5 mg [...] PM EST With: Darby Hamlin MD Where: [facility] Ambulatory Visit Summary MYRNA SHEN :1940 Visit Date:08/31/2023 Ambulatory Visit Instructions Your Diagnosis Annual visit for general adult medical examination without abnormal findings Stage 3a chronic kidney disease (CKD) Your Care Team Attending Physician - Darby Hamlin MD Primary Care Physician - Darby Hamlin MD This Is Your Medications List Mis Prescription (Test strips) amlodipine (amLODIPine 10 mg [...] PM EST With: Darby Hamlin MD Where: [facility] Ambulatory Visit Summary MYRNA SHEN :1940 Visit [...] PM EST With: Darby Hamlin MD Where: [facility] Melody Normal [facility] BMPon 08-31-2023 Anion gap [Moles/Vol] 10 mmol/L Normal 6-16 [facility] Comment on above: Performed By: #### 7 [id number], [id number], [id number] ####[facility] [address] [place] [address] BUN/Creat Ratio 20 No Units Normal 10-20 [facility] Comment on above: Performed By: #### 7 [id number], 5375493, [id number] ####[facility] [address] [place] [address] Calcium [Mass/Vol] 8.9 mg/dL Normal 8.9-11.1 [facility] Comment on above: Performed By: #### 7 [id number], 5020478, 55494516 ####[facility] [address] [place] [address] Chloride [Moles/Vol] 104 mmol/L Normal 101-111 [facility] Comment on above: Performed By: #### 7 86141884, 5283127, 30162604 ####[facility] [address] [place] [address] CO2 [Moles/Vol] 29 mmol/L Normal 21-31 [facility] Comment on above: Performed By: #### 7 38271919, 9524931, 37933662 ####[facility] [address] [place] [address] Creatinine [Mass/Vol] 0.7 mg/dL Normal 0.5-1.3 [facility] Comment on above: Performed By: #### 7 [id number], 7604061, 65440268 ####[facility] [address] [place] [address] Glucose [Mass/Vol] 87 mg/dL Normal 55-199 [facility] Comment on above: Performed By: #### 7 58591331, 6113916, 50912682 ####[facility] [address] [place] [address] Potassium [Moles/Vol] 4.0 mmol/L Normal 3.5-5.3 [facility] Comment on above: Performed By: #### 7 34342822, 9455433, 39573675 ####[facility] [address] [place] [address] Sodium [Moles/Vol] 139 mmol/L Normal 135-145 [facility] Comment on above: Performed By: #### 7 [id number], 7152835, 99897796 ####[facility] [address] [place] [address] Urea nitrogen [Mass/Vol] 14 mg/dL Normal 5-21 [facility] Comment on above: Performed By: #### 7 [id number], 2629899, 51663699 ####[facility] [address] [place] [address] CHEMISTRYOrdered By: Tree Jaramillo on 08-31-2023 U [...] 5 - 21 mg/dL [facility] Chem Urea nitrogen/Creatinin e [Mass ratio] 20 mg/mg Normal 10 - 20 [facility] Chem CHEMISTRYOrdered By: Aida tolentino on 08-31-2023 HbA1c (Bld) [Mass fraction] 5.0 % Normal <=5.9% [facility] ChemAutoSS Family Medicine Office/Clini c [...] of clutter to prevent tripping and/or falling. [place] Advance Directives reviewed, has at home. Patient [...] PCP visit. Will have labs completed with [facility]. Colonoscopy, never completed, aged out. [...] doctor and (more content not included)... Normal [facility] Comment on above: Result Comment: Elec tronically Signed By: Aurea Perez\.br\Date and Time Signed: 08/31/23 14:19 EST\.br\Electronically Co-Signed By: Yordy James\.br\Date and Time Co-Signed: 08/31/23 13:39 EST [id number] 08-31-2023 HbA1c (Bld) [Mass fraction] 5.0 % Normal <=5.9 [facility] Comment on above: Performed By: #### 7 [id number], 1933272, 37586353 ####[facility] [address] [place] [address] Patient Educationon 08-31-19 Patient Education Cardiovascular Atrial [...] signals of the heart. ? An ambulatory panel monitor to record your heart's activity for [...] Trouble breathing. (more content not included)... Normal [facility] Screenson 08-31-2023 Screens [id number] Normal [facility] U Microalbon 08-31-2023 U Microalb <2.0 Normal 0.0-19.0 [facility] Comment on above: Performed By: #### 1 [id number], [id number] ####[facility] [address] [place] [address] U Protein/Creat Ratioon 08-16 U Creatinine 32.3 mg/dL Invalid Interpretation Code [facility] Comment on above: Performed By: #### 1 [id number], [id number] ####[facility] [address] [place] [address] U Prot/Creat Ratio NOT CALCULATED Invalid Interpretation Code .00-200.00 [facility] Comment on above: Performed By: #### 1 [id number], [id number] ####[facility] [address] [place] [address] Ur Total Protein <6.0 Invalid Interpretation Code [facility] Comment on above: Performed By: #### 1 1922152, [id number] ####[facility] [address] [place] [address] eGFRon 08-31-2023 eGFR 87 mL/min/1.73 m2 Normal >=59 [facility] Comment on above: Order Comment: Order added by Discern Expert. Performed By: #### 7 [id number], 8098334, 72407587 ####[facility] [address] [place] [address] Office Visiton 04-27-2023 Follow-up visit [id number] Angélica Shen 1940 F Date Provider Department Center 04/27/2023 LEXI VILLALTA [facility] Melody [facility] Family History Problem Relation Age of Onset Coronary artery disease Mother Diabetes Mother Alcohol abuse Father Family Status - Relation Status Age at Mother Father Level of Service:22735 [place] OFFICE/OUTPATIENT ESTABLISHED LOW MDM 20-29 MIN Reason for Visit and Comments: Follow-up [625815] [facility] Office Visiton 03-02-2023 Follow-up visit [id number] Angélica Shen 1940 F Date Provider Department Center 03/02/2023 LEXI VILLALTA [facility] Melody [facility] Family History Problem Relation Age of Onset Coronary artery disease Mother Diabetes Mother Alcohol abuse Father Family Status - Relation Status Age at Mother Father Level of Service:32931 [place] OFFICE/OUTPATIENT ESTABLISHED MOD MDM 30-39 MIN Reason for Visit and Comments: Follow-up [021324] [facility] Family Medicine Office/Clini c Noteon 01-01-2023 Family [...] Last A1C: .8% 12/12/22 Last Chronic Labs: [facility] 12/19/22 questions/concerns: none doing 82 [...] is very susceptible to virus. The first dry chain operator she was evaluated by suspected bug bites from bugs in her house. She was going to her dry chain operator for over a year. She states that she experimented with at least 12 to 20 different kinds of lotions, potions, oils, medicines, and biopsies. She states that nothing never showed. She states that one biopsy said that she may be allergic to one of her medications. They discontinued her spironolactone. Myrna endorses benefit with steroids. She has stopped going to the dry chain operator. Review of Systems PHQ Score Initial Depression [...] with voice recognition artificial intelligence software, specifically [employer], [employer] and or [employer]. Substitutions may have occurred due to the inherent limitations of voice recognition and artificial intelligence software. ATTESTATION: Documentation services were performed after patient or guardian consented to allow [employer] to record this visit. LETTY parts counter specialist and provider reviewed before signing. LETTY: Syrina Donnell Entered into Xercise4less by: Shaitsa Calix Follow-up No qualifying data available Problem List/Past Medical History 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 Hx of melanoma of skin Hypercholesterolemia Neurodermatitis Paroxysmal atrial fibrillation Spinal stenosis in cervical region Stage 3a chronic kidney disease (CKD) Stasis dermatitis Uncontrolled type 2 diabetes mellitus with hyperglycemia Historical No qualifying data Pr (more content not included)... Normal [facility] Comment on above: Result Comment: Elec tronically Signed By: Darby Hamlin MD\.br\Date and Time Signed: 01/01/23 12:53 EDT\.br\Electronically Co-Signed By: Shaista Calix\.br\Date and Time Co-Signed: 12/27/22 19:11 EDT Ambulatory Visit Summaryon 0 12-27-2022 Ambulatory Visit [...] 25 mg Tab) potassium chloride (Potassium Chloride (Pdp-Nvvr-Rhm M20) 20 mEq oral tablet, extended release) Procedures Performed CABG - Coronary artery bypass graft. Discharge Vitals Heart Rate (Peripheral) 66 Respiratory Rate 16 Blood Pressure 140/74 Height 162 cm Height 64 in Weight 82.1 kg Weight 180.62 lb BMI 31.28 What to do next Scheduled Follow-Up Appointments Sunday 1:20 PM EDT With: Darby Hamlin MD Where: [facility] Normal [address] [place] [phone] \.br\ Medications\.br\ What How Much When Instructions\.br \ Changed furosemide (furosemide 40 mg Tab) 1 Tablets By Mouth 2 times a day Pickup at [facility] [id number]\.br\ Unchanged amiodarone (amiodarone 200 mg Tab) 1 [...] concerns \.br\ Unchanged potassium chloride (Potassium Chloride (Iyc-Ppfq-Nwj M20) 20 mEq oral tablet, extended release) 1 Tablets By Mouth once daily or twice daily when taking an additional furosemide Contact prescribing physician if questions or concerns \.br\ Pharmacy Information\.br\ [facility] [id number]: [address] [place], [place] [id number] [phone]\.br\ Allergies\.br\ spironolactone (Rash)\.br\ Vitamin C (Unknown)\.br\ Problems\.br\ Ongoing - Any problem that you are currently receiving treatment for.\.br\ Atherosclerosis of [place] coronary artery of [place] heart with angina pectoris\.br\ Hx of melanoma of skin\.br\ Hypercholesterol emia\.br\ Neurodermatitis\ .br\ Paroxysmal atrial fibrillation\.br \ Spinal stenosis in cervical region\.br\ Stage 3a chronic kidney disease (CKD)\.br\ Stasis dermatitis\.br\ Uncontrolled type 2 diabetes mellitus with hyperglycemia\.b r\ \.br\ [facility] BMPon 12-19-2022 Anion gap [Moles/Vol] 12 mmol/L Normal 6-16 [facility] Comment on above: Performed By: #### 2 903957, [id number] ####[facility] [address] [place] [address] Calcium [Mass/Vol] 9.1 mg/dL Normal 8.9-11.1 [facility] Comment on above: Performed By: #### 2 181017, [id number] ####[facility] [address] [place] [address] Chloride [Moles/Vol] 106 mmol/L Normal 101-111 [facility] Comment on above: Performed By: #### 2 528776, 25357028 ####[facility] [address] [place] [address] CO2 [Moles/Vol] 25 mmol/L Normal 21-31 [facility] Comment on above: Performed By: #### 2 654533, 67812360 ####[facility] [address] [place] [address] Creatinine [Mass/Vol] 0.8 mg/dL Normal 0.5-1.3 [facility] Comment on above: Performed By: #### 2 895384, 09343258 ####[facility] [address] [place] [address] Glucose [Mass/Vol] 162 mg/dL Normal 55-199 [facility] Comment on above: Result Comment: If t his glucose result represents a fasting glucose, interpretation should refer to the following reference range: 55-99 mg/dL Performed By: #### 2 819781, 03115213 ####[facility] [address] [place] [address] Potassium [Moles/Vol] 4.3 mmol/L Normal 3.5-5.3 [facility] Comment on above: Performed By: #### 2 275466, 46841491 ####[facility] [address] [place] [address] Sodium [Moles/Vol] 139 mmol/L Normal 135-145 [facility] Comment on above: Performed By: #### 2 291963, 62516946 ####[facility] [address] [place] [address] Urea nitrogen [Mass/Vol] 19 mg/dL Normal 5-21 [facility] Comment on above: Performed By: #### 2 849270, 88710696 ####[facility] [address] [place] [address] Urea nitrogen/Creatinin e [Mass ratio] 24 No Units High 10-20 [facility] Comment on above: Performed By: #### 2 966132, 72375044 ####[facility] [address] [place] [address] CHEMISTRYOrdered By: SYSTEM SYSTEM on 12-19-2022 Anion gap [Moles/Vol] 12 mmol/L Normal 6 - 16 mEq/L [facility] Remisol Calcium [Mass/Vol] 9.1 mg/dL Normal 8.9 - 11.1 mg/dL [facility] Chloride [Moles/Vol] 106 mmol/L Normal 101 - 111 mmol/L [facility] Remisol CO2 [Moles/Vol] 25 mmol/L Normal 21 - 31 mmol/L [facility] Remisol Creatinine [Mass/Vol] 0.8 mg/dL Normal 0.5 - 1.3 mg/dL [facility] Remisol GFR/1.73 sq M.predicted among non-blacks MDRD (S/P/Bld) [Vol rate/Area] 74 mL/min/1.73 m2 Normal >=59mL/min/1.73 m2 [facility] Chem S Glucose [Mass/Vol] 162 mg/dL Normal 55 - 199 mg/dL [facility] Potassium [Moles/Vol] 4.3 mmol/L Normal 3.5 - 5.3 mmol/L [facility] Remisol Sodium [Moles/Vol] 139 mmol/L Normal 135 - 145 mmol/L [facility] Remisol Urea nitrogen [Mass/Vol] 19 mg/dL Normal 5 - 21 mg/dL [facility] Remisol Urea nitrogen/Creatinin e [Mass ratio] 24 mg/mg High 10 - 20 [facility] Remisol Nurse Consultation Noteon Nurse [...] mg= 1 tab(s), Oral, BID Potassium Chloride (Fpz-Lnzz-Ahv M20) 20 mEq oral tablet, extended release, 20 mEq= 1 tab(s), Oral Allergies spironolactone (Rash) Vitamin C (Unknown) Immunizations Vaccine Date Status SARS-CoV-2 (COVID-19) mRNA-1273 vaccine 09/17/2020 Recorded SARS-CoV-2 (COVID-19) mRNA-1273 vaccine 08/20/2020 Recorded Normal [facility] eGFRon 12-19-2022 GFR/1.73 sq M.predicted among non-blacks MDRD (S/P/Bld) [Vol rate/Area] 74 mL/min/1.73 m2 Normal >=59 [facility] Comment on above: Order Comment: Order added by Discern Expert. Result Comment: Hired Worker radha kidney disease could be indicated at eGFR's of less than 60 mL/min/1.73m2. Kidney failure is indicated at less than 15 mL/min/1.73m2. Performed By: #### 2 543096, [id number] ####[facility] [address] [place] [address] Transfer [facility] 12-14-2022 Transfer In [id number]:12 7 Normal [facility] Family Medicine Office/Clini c Noteon 12-13-2022 Family [...] COVID-19. She had an appointment with a saturation equipment operator in the past, but she canceled due [...] mg/dL. She has an appointment with her office helper Dr. Zapata on 01/02/2023 for A-fib. Review [...] that she was being seen for before pr. At this time, we will recheck potassium [...] patient or guardian consented to allow Malachi Aura Hassan to record this visit. LETTY parts counter specialist and provider reviewed before signing. LETTY: Norris Osborne Follow-up No qualifying data available Patient Education Blood Glucose Monitoring, Adult Problem List/Past Medical History 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 Hx of melanoma [...] mg= 1 tab(s), Oral, BID Potassium Chloride (Otu-Bpyv-Kxc M20) 20 mEq oral tablet, extended release, [...] Status SARS-C (more content not included)... Normal [facility] Comment on above: Result Comment: Elec tronically Signed By: Boubacar VINCENT, Darby Garay\.br\Date and Time Signed: 12/13/22 15:45 EDT\.br\Electronically Co-Signed By: Norris Osborne\.br\Date and Time Co-Signed: 12/12/22 16:38 EDT Physician Referralon 023 Physician Referral [id number]:1 27 Normal [facility] CHEMISTRYOrdered By: SYSTEM SYSTEM on 12-12-2022 Albumin [...] 20 [iU]/d Normal 5 - 43 Int._Unit/L [facility] Bilirubin [Mass/Vol] 0.9 mg/dL Normal 0.0 - 1.1 mg/dL [facility] Calcium [Mass/Vol] 9.4 mg/dL Normal 8.9 - 11.1 mg/dL [facility] Chloride [Moles/Vol] 104 mmol/L Normal 101 - 111 mmol/L [facility] CO2 [Moles/Vol] 27 mmol/L Normal 21 - 31 mmol/L [facility] Creatinine [Mass/Vol] 1.2 mg/dL Normal 0.5 - 1.3 mg/dL [facility] GFR/1.73 sq M.predicted among non-blacks MDRD (S/P/Bld) [Vol rate/Area] 46 mL/min/1.73 m2 Low >=59mL/min/1.73 m2 [facility] Chem S Globulin (S) [Mass/Vol] 3.0 g/dL Normal 1.4 - 4.0 gm/dL [facility] Glucose [Mass/Vol] 131 mg/dL Normal 55 - 199 mg/dL [facility] Potassium [Moles/Vol] 4.4 mmol/L Normal 3.5 - 5.3 mmol/L [facility] Protein [Mass/Vol] 7.3 g/dL Normal 6.0 - 7.8 gm/dL [facility] Remisol Sodium [Moles/Vol] 139 mmol/L Normal 135 - 145 mmol/L [facility] Urea nitrogen [Mass/Vol] 18 mg/dL Normal 5 - 21 mg/dL [facility] Urea nitrogen/Creatinin e [Mass ratio] 15 mg/mg Normal 10 - 20 [facility] Remisol CHEMISTRYOrdered By: Andreia Maria on 12-12-2022 HbA1c (Bld) [Mass fraction] 6.8 % High <=5.9% [facility] ChemAutoSS CMPon 12-12-2022 Anion gap [Moles/Vol] 12 mmol/L Normal 6-16 [facility] Comment on above: Performed By: #### 2 633282, 20492382, [id number] ####[facility] [address] [place] [address] Calcium [Mass/Vol] 9.4 mg/dL Normal 8.9-11.1 [facility] Comment on above: Performed By: #### 2 334196, 95909553, 958800558 ####[facility] [address] [place] [address] Chloride [Moles/Vol] 104 mmol/L Normal 101-111 [facility] Comment on above: Performed By: #### 2 702715, 53317767, 801747025 ####[facility] [address] [place] [address] CO2 [Moles/Vol] 27 mmol/L Normal 21-31 [facility] Comment on above: Performed By: #### 2 130698, 17051739, [id number] ####[facility] [address] [place] [address] Glucose [Mass/Vol] 131 mg/dL Normal 55-199 [facility] Comment on above: Result Comment: If t his glucose result represents a fasting glucose, interpretation should refer to the following reference range: 55-99 mg/dL Performed By: #### 2 942216, 51364937, [id number] ####[facility] [address] [place] [address] Potassium [Moles/Vol] 4.4 mmol/L Normal 3.5-5.3 [facility] Comment on above: Performed By: #### 2 377450, 83653044, 787969067 ####[facility] [address] [place] [address] Sodium [Moles/Vol] 139 mmol/L Normal 135-145 [facility] Comment on above: Performed By: #### 2 480148, 22288676, 870094934 ####[facility] [address] [place] [address] Albumin [Mass/Vol] 4.3 g/dL Normal 3.3-5.0 [facility] Comment on above: Performed By: #### 2 537790, 25811181, [id number] ####[facility] [address] [place] [address] Albumin/Globulin (S) [Mass conc ratio] 1.4 Normal 1.1-2.2 [facility] Comment on above: Performed By: #### 2 783447, 19711947, [id number] ####[facility] [address] [place] [address] ALP [Catalytic activity/Vol] 74 Int._Unit/L Normal 21-98 [facility] Comment on above: Performed By: #### 2 913315, 18743856, [id number] ####[address] [address] ALT No additional P-5'-P [Catalytic activity/Vol] 22 Int._Unit/L Normal 6-46 [facility] Comment on above: Performed By: #### 2 928507, 90561884, [id number] ####[address] [address] AST [Catalytic activity/Vol] 20 Int._Unit/L Normal 5-43 [facility] Comment on above: Performed By: #### 2 174568, 31245733, 149686279 ####[facility] [address] [place] [address] Bilirubin [Mass/Vol] 0.9 mg/dL Normal 0.0-1.1 [facility] Comment on above: Performed By: #### 2 [id number], [id number], [id number] ####[facility] [address] [place] [address] Creatinine [Mass/Vol] 1.2 mg/dL Normal 0.5-1.3 [facility] Comment on above: Performed By: #### 2 [id number], [id number], [id number] ####[facility] [address] [place] [address] Globulin (S) [Mass/Vol] 3.0 g/dL Normal 1.4-4.0 [facility] Comment on above: Performed By: #### 2 [id number], [id number], [id number] ####[facility] [address] [place] [address] Protein [Mass/Vol] 7.3 g/dL Normal 6.0-7.8 [facility] Comment on above: Performed By: #### 2 [id number], [id number], [id number] ####[facility] [address] [place] [address] Urea nitrogen [Mass/Vol] 18 mg/dL Normal 5-21 [facility] Comment on above: Performed By: #### 2 [id number], [id number], [id number] ####[facility] [address] [place] [address] Urea nitrogen/Creatinin e [Mass ratio] 15 No Units Normal 10-20 [facility] Comment on above: Performed By: #### 2 [id number], [id number], [id number] ####[facility] [address] [place] [address] QqsC1crf 12-12-2022 HbA1c (Bld) [Mass fraction] 6.8 % High <=5.9 [facility] Comment on above: Performed By: #### 2 [id number], [id number], [id number] ####[facility] [address] [place] [address] Patient Educationon 12-13-19 23 Patient Education Endocrinology [...] following in (more content not included)... Normal [facility] eGFRon 12-12-2022 GFR/1.73 sq M.predicted among non-blacks MDRD (S/P/Bld) [Vol rate/Area] 46 mL/min/1.73 m2 Low >=59 [facility] Comment on above: Order Comment: Order added by Discern Expert. Result Comment: Hired Worker radha kidney disease could be indicated at eGFR's of less than 60 mL/min/1.73m2. Kidney failure is indicated at less than 15 mL/min/1.73m2. Performed By: #### 2 [id number], [id number], [id number] ####[facility] [address] [place] [address] Telemedicineon 11-14-2022 Telemedicine [id number] Angélica Shen Brad 1940 F Date Provider Department Center 11/14/2022 SATNAM DAVIS [facility] Family History Problem Relation Age of Onset Coronary artery disease Mother Diabetes Mother Alcohol abuse Father Family Status - Relation Status Age at Mother Father Level of Service:00778 [facility] OFFICE[facility]PATIENT NEW MODERATE MDM 45-59 MINUTES Normal [facility] T3, TOTAL (TRIIODOTHYRONINE) on 11-10-2022 T3, TOTAL 78 ng/dL Normal 71-180 Comment on above: Performed By: #### C MP, BNP, TSHRFT4 #### [facility] [address] [place] [address] Dr. Sy Casillas 36on 11-09-2022 36 Patient is currently admitted to [facility] as of 11/09/2022 Normal [facility] BNPon 11-09-2022 Natriuretic peptide B (Bld) [Mass/Vol] 1472.0 pg/mL Normal <=1,800.0 Comment on above: Performed By: #### C MP, BNP, TSHRFT4 #### [facility] [address] [place] [address] Dr. Sy Casillas CBC AUTO DIFFon 11-09-2022 BASO # 0.3 103/ul Critically high 0.0-0.1 Comment on above: Performed By: #### C BC #### [facility] [address] [place] [address] Dr. Sy Casillas Basophils/100 WBC (Bld) 3.0 % Critically high 0.2-2.0 Comment on above: Performed By: #### C BC #### [facility] [address] [place] [address] Dr. Sy Casillas EO # 0.3 103/ul Normal 0.0-0.7 Comment on above: Performed By: #### C BC #### [facility] [address] [place] [address] Dr. Sy Casillas Eosinophils/100 WBC (Bld) 3.3 % Normal 0.9-7.0 Comment on above: Performed By: #### C BC #### [facility] [address] [place] [address] Dr. Sy Casillas Erythrocyte distribution width (RBC) [Ratio] 19.9 % Critically high 11.0-15.0 Comment on above: Performed By: #### C BC #### [facility] [address] [place] [address] Dr. Sy Casillas Hematocrit (Bld) [Volume fraction] 38.1 % Normal 36.0-48.0 Comment on above: Performed By: #### C BC #### [facility] [address] [place] [address] Dr. Sy Casillas Hemoglobin (Bld) [Mass/Vol] 12.0 g/dL Normal 12.0-16.0 Comment on above: Performed By: #### C BC #### [facility] [address] [place] [address] Dr. Sy Casillas IG # 0.72 10e3/ul Critically high 0.00-0.03 Comment on above: Performed By: #### C BC #### [facility] [address] [place] [address] Dr. Sy Casillas IG % 7.5 % Critically high 0.0-0.5 Comment on above: Performed By: #### C BC #### [facility] [address] [place] [address] Dr. Sy Casillas LYMPH # 1.4 103/ul Normal 1.2-3.8 Comment on above: Performed By: #### C BC #### [facility] [address] [place] [address] Dr. Sy Casillas Lymphocytes/100 WBC (Bld) 14.1 % Critically low 20.5-60.0 Comment on above: Performed By: #### C BC #### [facility] [address] [place] [address] Dr. Sy Casillas MANUAL DIFF REQ NO Normal Comment on above: Performed By: #### C BC #### [facility] [address] [place] [address] Dr. Sy Casillas MCH (RBC) [Entitic mass] 25.2 pg Critically low 26.7-34.0 Comment on above: Performed By: #### C BC #### [facility] [address] [place] [address] Dr. Sy Casillas MCHC (RBC) [Mass/Vol] 31.5 g/dL Normal 29.9-35.2 Comment on above: Performed By: #### C BC #### [facility] [address] [place] [address] Dr. Sy Casillas MCV (RBC) [Entitic vol] 79.9 fL Critically low 81.0-99.0 Comment on above: Performed By: #### C BC #### [facility] [address] [place] [address] Dr. Sy Casillas MONO # 0.6 103/ul Normal 0.3-0.8 Comment on above: Performed By: #### C BC #### [facility] [address] [place] [address] Dr. Sy Casillas Monocytes/100 WBC (Bld) 6.6 % Normal 1.7-12.0 Comment on above: Performed By: #### C BC #### [facility] [address] [place] [address] Dr. Sy Casillas NEUT # 6.3 103/ul Normal 1.4-6.5 Comment on above: Performed By: #### C BC #### [facility] [address] [place] [address] Dr. Sy Casillas Neutrophils/100 WBC (Bld) 65.5 % Normal 43.0-75.0 Comment on above: Performed By: #### C BC #### [facility] [address] [place] [address] Dr. Sy Casillas Platelet mean volume (Bld) [Entitic vol] 10.4 fL Normal 9.5-13.5 Comment on above: Performed By: #### C BC #### [facility] [address] [place] [address] Dr. Sy Casillas PLT 225 103/ul Normal 150-450 Comment on above: Performed By: #### C BC #### [facility] [address] [place] [address] Dr. Sy Casillas RBC 4.77 106/ul Normal 4.20-5.40 Comment on above: Performed By: #### C BC #### [facility] [address] [place] [address] Dr. Sy Casillas WBC 9.6 103/ul Normal 4.0-11.0 Comment on above: Performed By: #### C BC #### [facility] [address] [place] [address] Dr. Sy Casillas MAGNESIUMon 11-09-2022 Magnesium [Mass/Vol] 1.7 mg/dL Critically low 1.8-2.4 Comment on above: Performed By: #### C MP, BNP, TSHRFT4 #### [facility] [address] [place] [address] Dr. Sy Casillas POINT OF CARE GLUCOSEon 10-15 Glucose [Mass/Vol] 330 mg/dL Critically high 74-106 [facility] Comment on above: Performed By: #### C MP, BNP, TSHRFT4 #### [facility] [address] [place] [address] Dr. Sy Casillas Glucose [Mass/Vol] 197 mg/dL Critically high 74-106 [facility] Comment on above: Performed By: #### P OCGLUC #### [facility] [address] [place] [address] Dr. Sy Casillas PROF 14(COMP METB)on 023 Albumin [Mass/Vol] 2.5 g/dL Critically low 3.4-5.0 [facility] Comment on above: Performed By: #### C MP, BNP, TSHRFT4 #### [facility] [address] [place] [address] Dr. Sy Casillas Albumin/Globulin [Mass ratio] 0.8 {ratio} Normal Comment on above: Performed By: #### C MP, BNP, TSHRFT4 #### [facility] [address] [place] [address] Dr. Sy Casillas ALP [Catalytic activity/Vol] 83 U/L Normal 46-116 Comment on above: Performed By: #### C MP, BNP, TSHRFT4 #### [facility] [address] [place] [address] Dr. Sy Casillas ALT [Catalytic activity/Vol] 29 U/L Normal 14-59 Comment on above: Performed By: #### C MP, BNP, TSHRFT4 #### [facility] [address] [place] [address] Dr. Sy Casillas Anion gap [Moles/Vol] 10.3 mmol/L Normal Comment on above: Performed By: #### C MP, BNP, TSHRFT4 #### [facility] [address] [place] [address] Dr. Sy Casillas AST [Catalytic activity/Vol] 15 U/L Normal 15-37 Comment on above: Performed By: #### C MP, BNP, TSHRFT4 #### [facility] [address] [place] [address] Dr. Sy Casillas Bilirubin [Mass/Vol] 0.8 mg/dL Normal 0.2-1.0 Comment on above: Performed By: #### C MP, BNP, TSHRFT4 #### [facility] [address] [place] [address] Dr. Sy Casillas Calcium [Mass/Vol] 8.5 mg/dL Normal 8.5-10.1 [facility] Comment on above: Performed By: #### C MP, BNP, TSHRFT4 #### [facility] [address] [address] [address] Sy Casillas Chloride [Moles/Vol] 104 mmol/L Normal 98-107 Comment on above: Performed By: #### C MP, BNP, TSHRFT4 #### [facility] [address] [place] [address] Dr. Sy Casillas CO2 [Moles/Vol] 29.3 mmol/L Normal 21.0-32.0 Comment on above: Performed By: #### C MP, BNP, TSHRFT4 #### [facility] [address] [place] [address] Dr. Sy Casillas Creatinine [Mass/Vol] 0.75 mg/dL Normal 0.55-1.02 Comment on above: Performed By: #### C MP, BNP, TSHRFT4 #### [facility] [address] [place] [address] Dr. Sy Casillas EGFR-AF JAPANESE >60 Normal >=60 Comment on above: Performed By: #### C MP, BNP, TSHRFT4 #### [facility] [address] [place] [address] Dr. Sy Casillas EGFR-NON AF JAPANESE >60 Normal >=60 Comment on above: Performed By: #### C MP, BNP, TSHRFT4 #### [facility] [address] [place] [address] Dr. Sy Casillas Globulin (S) [Mass/Vol] 3.1 g/dL Normal Comment on above: Performed By: #### C MP, BNP, TSHRFT4 #### [facility] [address] [place] [address] Dr. Sy Casillas Glucose [Mass/Vol] 69 mg/dL Critically low 74-106 [facility] Comment on above: Performed By: #### C MP, BNP, TSHRFT4 #### [facility] [address] [place] [address] Dr. Sy Casillas Potassium [Moles/Vol] 2.6 mmol/L Critically low 3.5-5.1 Comment on above: Performed By: #### C MP, BNP, TSHRFT4 #### [facility] [address] [place] [address] Dr. Sy Casillas Protein [Mass/Vol] 5.6 g/dL Critically low 6.4-8.2 [facility] Comment on above: Performed By: #### C MP, BNP, TSHRFT4 #### [facility] [address] [place] [address] Dr. Sy Casillas Sodium [Moles/Vol] 140 mmol/L Normal 136-145 Comment on above: Performed By: #### C MP, BNP, TSHRFT4 #### [facility] [address] [place] [address] Dr. Sy Casillas Urea nitrogen [Mass/Vol] 17.0 mg/dL Normal 7.0-18.0 Comment on above: Performed By: #### C MP, BNP, TSHRFT4 #### [facility] [address] [place] [address] Dr. Sy Casillas Urea nitrogen/Creatinin e [Mass ratio] 22.7 mg/mg Normal Comment on above: Performed By: #### C MP, BNP, TSHRFT4 #### [facility] [address] [place] [address] Dr. Sy Casillas ACETONE SERUMon 11-08-2022 ACETONE Negative Normal NEGATIVE Comment on above: Performed By: #### A CETON #### [facility] [address] [place] [address] Dr. Sy Casillas BNPon 11-08-2022 Natriuretic peptide B (Bld) [Mass/Vol] 1755.0 pg/mL Normal <=1,800.0 Comment on above: Performed By: #### C MP, BNP, TSHRFT4 #### [facility] [address] [place] [address] Dr. Sy Casillas CBC AUTO DIFFon 11-08-2022 BASO # 0.3 103/ul Critically high 0.0-0.1 Comment on above: Performed By: #### C MP, BNP, TSHRFT4 #### [facility] [address] [place] [address] Dr. Sy Casillas Basophils/100 WBC (Bld) 2.4 % Critically high 0.2-2.0 [facility] Comment on above: Performed By: #### C MP, BNP, TSHRFT4 #### [facility] [address] [place] [address] Dr. Sy Casillas EO # 0.2 103/ul Normal 0.0-0.7 [facility] Comment on above: Performed By: #### C MP, BNP, TSHRFT4 #### [facility] [address] [place] [address] Dr. Sy Casillas Eosinophils/100 WBC (Bld) 1.4 % Normal 0.9-7.0 Comment on above: Performed By: #### C MP, BNP, TSHRFT4 #### [facility] [address] [place] [address] Dr. Sy Casillas Erythrocyte distribution width (RBC) [Ratio] 20.1 % Critically high 11.0-15.0 Comment on above: Performed By: #### C MP, BNP, TSHRFT4 #### [facility] [address] [place] [address] Dr. Sy Casillas Hematocrit (Bld) [Volume fraction] 39.4 % Normal 36.0-48.0 Comment on above: Performed By: #### C MP, BNP, TSHRFT4 #### [facility] [address] [place] [address] Dr. Sy Casillas Hemoglobin (Bld) [Mass/Vol] 12.8 g/dL Normal 12.0-16.0 Comment on above: Performed By: #### C MP, BNP, TSHRFT4 #### [facility] [address] [place] [address] Dr. Sy Casillas IG # 0.61 10e3/ul Critically high 0.00-0.03 Comment on above: Performed By: #### C MP, BNP, TSHRFT4 #### [facility] [address] [place] [address] Dr. Sy Casillas IG % 5.9 % Critically high 0.0-0.5 Comment on above: Performed By: #### C MP, BNP, TSHRFT4 #### [facility] [address] [place] [address] Dr. Sy Casillas LYMPH # 0.7 103/ul Critically low 1.2-3.8 [facility] Comment on above: Performed By: #### C MP, BNP, TSHRFT4 #### [facility] [address] [place] [address] Dr. Sy Casillas Lymphocytes/100 WBC (Bld) 6.4 % Critically low 20.5-60.0 Comment on above: Performed By: #### C MP, BNP, TSHRFT4 #### [facility] [address] [place] [address] Dr. Sy Casillas MANUAL DIFF REQ NO Normal [facility] Comment on above: Performed By: #### C MP, BNP, TSHRFT4 #### [facility] [address] [place] [address] Dr. Sy Casillas MCH (RBC) [Entitic mass] 25.4 pg Critically low 26.7-34.0 Comment on above: Performed By: #### C MP, BNP, TSHRFT4 #### [facility] [address] [place] [address] Dr. Sy Casillas MCHC (RBC) [Mass/Vol] 32.5 g/dL Normal 29.9-35.2 [facility] Comment on above: Performed By: #### C MP, BNP, TSHRFT4 #### [facility] [address] [place] [address] Dr. Sy Casillas MCV (RBC) [Entitic vol] 78.2 fL Critically low 81.0-99.0 Comment on above: Performed By: #### C MP, BNP, TSHRFT4 #### [facility] [address] [place] [address] Dr. Sy Casillas MONO # 0.6 103/ul Normal 0.3-0.8 [facility] Comment on above: Performed By: #### C MP, BNP, TSHRFT4 #### [facility] [address] [place] [address] Dr. Sy Casillas Monocytes/100 WBC (Bld) 5.8 % Normal 1.7-12.0 [facility] Comment on above: Performed By: #### C MP, BNP, TSHRFT4 #### [facility] [address] [place] [address] Dr. yS Casillas NEUT # 8.1 103/ul Critically high 1.4-6.5 [facility] Comment on above: Performed By: #### C MP, BNP, TSHRFT4 #### [facility] [address] [place] [address] Dr. Sy Casillas Neutrophils/100 WBC (Bld) 78.1 % Critically high 43.0-75.0 [facility] Comment on above: Performed By: #### C MP, BNP, TSHRFT4 #### [facility] [address] [place] [address] Dr. Sy Casillas Platelet mean volume (Bld) [Entitic vol] 10.3 fL Normal 9.5-13.5 [facility] Comment on above: Performed By: #### C MP, BNP, TSHRFT4 #### [facility] [address] [place] [address] Dr. Sy Casillas PLT 229 103/ul Normal 150-450 [facility] Comment on above: Performed By: #### C MP, BNP, TSHRFT4 #### [facility] [address] [place] [address] Dr. Sy Casillas RBC 5.04 106/ul Normal 4.20-5.40 [facility] Comment on above: Performed By: #### C MP, BNP, TSHRFT4 #### [facility] [address] [place] [address] Dr. Sy Casillas WBC 10.4 103/ul Normal 4.0-11.0 [facility] Comment on above: Performed By: #### C MP, BNP, TSHRFT4 #### [facility] [address] [place] [address] Dr. Sy Casillas CULTURE URINEon 11-08-2022 CULTURE URINE Culture Observations : MODERATE GROWTH OF MIXED GENITAL ISAURA. NO POTENTIAL PATHOGENS SEEN. Normal [facility] Comment on above: Performed By: #### C MP, BNP, TSHRFT4 #### [facility] [address] [place] [address] Dr. Sy Casillas ER URINE PROFILEon 3 Bilirubin Ql (U) Negative Normal NEGATIVE [facility] Comment on above: Performed By: #### U MICRO, ERUR #### [facility] [address] [place] [address] Dr. Sy Casillas Clarity (U) CLEAR Normal CLEAR [facility] Comment on above: Performed By: #### U MICRO, ERUR #### [facility] [address] [place] [address] Dr. Sy Casillas Color (U) LT. YELLOW Normal YELLOW [facility] Comment on above: Performed By: #### U MICRO, ERUR #### [facility] [address] [place] [address] Dr. Sy Casillas ERUAHD A micrscopic examina tion will be performed if indicated. Normal [facility] Comment on above: Performed By: #### U MICRO, ERUR #### [facility] [address] [place] [address] Dr. Sy Casillas Glucose Ql (U) >1000 Abnormal NEGATIVE [facility] Comment on above: Performed By: #### U MICRO, ERUR #### [facility] [address] [place] [address] Dr. Sy Casillas Hemoglobin Ql (U) TRACE-INTACT Abnormal NEGATIVE [facility] Comment on above: Performed By: #### U MICRO, ERUR #### [facility] [address] [place] [address] Dr. Sy Casillas Ketones Ql (U) TRACE Abnormal NEGATIVE [facility] Comment on above: Performed By: #### U MICRO, ERUR #### [facility] [address] [address] [address] Sy Casillas LEUKOCYTES Negative Normal NEGATIVE Comment on above: Performed By: #### U MICRO, ERUR #### [facility] [address] [address] [address] Sy Casillas Nitrite Ql (U) Negative Normal NEGATIVE [facility] Comment on above: Performed By: #### U MICRO, ERUR #### [facility] [address] [address] [address] Sy Casillas pH (U) 5.0 [pH] Normal 5-9 Comment on above: Performed By: #### U MICRO, ERUR #### [facility] [address] [place] [address] Dr. Sy Casillas SPEC GRAVITY <=1.005 Abnormal 1.005-<=1.025 Comment on above: Performed By: #### U MICRO, ERUR #### [facility] [address] [address] [address] Sy Casillas UA PROTEIN Negative Normal NEGATIVE/ TRACE [facility] Comment on above: Performed By: #### U MICRO, ERUR #### [facility] [address] [place] [address] Dr. Sy Casillas UR MICRO IND INDICATED Normal [facility] Comment on above: Performed By: #### U MICRO, ERUR #### [facility] [address] [place] [address] Dr. Sy Casillas Urobilinogen Qn (U) 0.2 {Brisa'U}/dL Normal 0.2 - 1.0 Comment on above: Performed By: #### U MICRO, ERUR #### [facility] [address] [place] [address] Dr. Sy Casillas GLYCOHEMOGLOBIN A1Con 2022 ADA RECOMMENDATION SEE BELOW Normal [facility] Comment on above: Result Comment: ADA RECOMMENDED LIMIT 4.0 - 6.0 ADA THERAPEUTIC TARGET < 7.0 ACTION SUGGESTED > 7.0 Performed By: #### C MP, BNP, TSHRFT4 #### [facility] [address] [place] [address] Dr. Sy Casillas Glucose [Mass/Vol] 240 mg/dL Normal [facility] Comment on above: Performed By: #### C MP, BNP, TSHRFT4 #### [facility] [address] [place] [address] Dr. Sy Casillas HbA1c (Bld) [Mass fraction] 10.0 % Critically high 4.5-6.2 [facility] Comment on above: Performed By: #### C MP, BNP, TSHRFT4 #### [facility] [address] [place] [address] Dr. Sy Casillas LACTATE/LACTIC ACIDon 2022 Lactate [Moles/Vol] 1.7 mmol/L Normal 0.4-2.0 Comment on above: Performed By: #### C MP, BNP, TSHRFT4 #### [facility] [address] [place] [address] Dr. Sy Casillas Lactate [Moles/Vol] 1.7 mmol/L Normal 0.4-2.0 Comment on above: Performed By: #### A SSBA #### [facility] [address] [place] [address] Dr. Sy Casillas MAGNESIUMon 11-08-2022 Magnesium [Mass/Vol] 1.6 mg/dL Critically low 1.8-2.4 [facility] Comment on above: Performed By: #### A SSBA #### [facility] [address] [place] [address] Dr. Sy Casillas PH VENOUS BLOODon 11-08-2022 PCO2 VENOUS 33.4 mmHg Critically low 40.0-52.0 Comment on above: Performed By: #### A SSBA #### [facility] [address] [place] [address] Dr. Sy Casillas pH VENOUS 7.507 Critically high 7.330-7.430 [facility] Comment on above: Performed By: #### A SSBA #### [facility] [address] [address] [address] Sy Casillas POINT OF CARE GLUCOSEon 10-15 Glucose [Mass/Vol] 378 mg/dL Critically high 74-106 [facility] Comment on above: Performed By: #### A SSBA #### [facility] [address] [place] [address] Dr. yS Casillas PROF 14(COMP METB)on 023 Albumin [Mass/Vol] 3.0 g/dL Critically low 3.4-5.0 [facility] Comment on above: Performed By: #### C MP, BNP, TSHRFT4 #### [facility] [address] [place] [address] Dr. Sy Casillas Albumin/Globulin [Mass ratio] 0.9 {ratio} Normal Comment on above: Performed By: #### C MP, BNP, TSHRFT4 #### [facility] [address] [place] [address] Dr. Sy Casillas ALP [Catalytic activity/Vol] 101 U/L Normal 46-116 Comment on above: Performed By: #### C MP, BNP, TSHRFT4 #### [facility] [address] [place] [address] Dr. Sy Casillas ALT [Catalytic activity/Vol] 33 U/L Normal 14-59 Comment on above: Performed By: #### C MP, BNP, TSHRFT4 #### [facility] [address] [place] [address] Dr. Sy Casillas Anion gap [Moles/Vol] 14.5 mmol/L Normal Comment on above: Performed By: #### C MP, BNP, TSHRFT4 #### [facility] [address] [place] [address] Dr. Sy Casillas AST [Catalytic activity/Vol] 18 U/L Normal 15-37 Comment on above: Performed By: #### C MP, BNP, TSHRFT4 #### [facility] [address] [place] [address] Dr. Sy Casillas Bilirubin [Mass/Vol] 1.4 mg/dL Critically high 0.2-1.0 Comment on above: Performed By: #### C MP, BNP, TSHRFT4 #### [facility] [address] [place] [address] Dr. Sy Casillas Calcium [Mass/Vol] 8.6 mg/dL Normal 8.5-10.1 [facility] Comment on above: Performed By: #### C MP, BNP, TSHRFT4 #### [facility] [address] [place] [address] Dr. Sy Casillas Chloride [Moles/Vol] 92 mmol/L Critically low 98-107 Comment on above: Performed By: #### C MP, BNP, TSHRFT4 #### [facility] [address] [place] [address] Dr. Sy Casillas CO2 [Moles/Vol] 25.7 mmol/L Normal 21.0-32.0 Comment on above: Performed By: #### C MP, BNP, TSHRFT4 #### [facility] [address] [place] [address] Dr. Sy Casillas Creatinine [Mass/Vol] 1.05 mg/dL Critically high 0.55-1.02 Comment on above: Performed By: #### C MP, BNP, TSHRFT4 #### [facility] [address] [place] [address] Dr. Sy Casillas EGFR-AF JAPANESE >60 Normal >=60 [facility] Comment on above: Performed By: #### C MP, BNP, TSHRFT4 #### [facility] [address] [place] [address] Dr. Sy Casillas EGFR-NON AF JAPANESE 50 mL/min/1.73m2 Critically low >=60 Comment on above: Performed By: #### C MP, BNP, TSHRFT4 #### [facility] [address] [place] [address] Dr. Sy Casillas Globulin (S) [Mass/Vol] 3.3 g/dL Normal Comment on above: Performed By: #### C MP, BNP, TSHRFT4 #### [facility] [address] [address] [address] Sy Casillas Glucose [Mass/Vol] 518 mg/dL Critically high 74-106 T [facility] Comment on above: Performed By: #### C MP, BNP, TSHRFT4 #### [facility] [address] [place] [address] Dr. Sy Casillas Potassium [Moles/Vol] 3.2 mmol/L Critically low 3.5-5.1 Comment on above: Performed By: #### C MP, BNP, TSHRFT4 #### [facility] [address] [place] [address] Dr. Sy Casillas Protein [Mass/Vol] 6.3 g/dL Critically low 6.4-8.2 [facility] Comment on above: Performed By: #### C MP, BNP, TSHRFT4 #### [facility] [address] [place] [address] Dr. Sy Casillas Sodium [Moles/Vol] 129 mmol/L Critically low 136-145 [facility] Comment on above: Performed By: #### C MP, BNP, TSHRFT4 #### [facility] [address] [place] [address] Dr. Sy Casillas Urea nitrogen [Mass/Vol] 24.0 mg/dL Critically high 7.0-18.0 Comment on above: Performed By: #### C MP, BNP, TSHRFT4 #### [facility] [address] [place] [address] Dr. Sy Casillas Urea nitrogen/Creatinin e [Mass ratio] 22.9 mg/mg Normal Comment on above: Performed By: #### C MP, BNP, TSHRFT4 #### [facility] [address] [place] [address] Dr. Sy Casillas SED RATE [facility] 04-26- 2023 SED RATE 53 mm/hr Critically high <=30 [facility] Comment on above: Performed By: #### S EDR #### [facility] [address] [place] [address] Dr. Sy Casillas T4on 11-08-2022 T4 [Mass/Vol] 11.40 ug/dL Normal 4.80-13.90 Comment on above: Performed By: #### A SSBA #### [facility] [address] [place] [address] Dr. Sy Casillas TROPONIN, HIGH SENSITIVITYon 11-08-2022 HSTROP 10.0 pg/mL Normal 4.0-51.3 [facility] Comment on above: Result Comment: CUT- OFF POINTS HAVE BEEN ESTABLISHED BASED ON THE FOURTH UNIVERSAL DEFINITIONS OF MYOCARDIAL INFARCTION. THE UPPER REFERENCE LIMIT (URL) OF TROPONIN, DEFINED THE 99TH PERCENTILE OF cTnI DISTRIBUTION IN A REFERENCE POPULATION, HAS BEEN CONFIRMED THE DECISION THRESHOLD FOR [place] DIAGNOSIS. Performed By: #### C MP, BNP, TSHRFT4 #### [facility] [address] [place] [address] Dr. Sy Casillas TSHon 11-08-2022 TSH 1.031 uIU/mL Normal 0.358-3.740 [facility] Comment on above: Performed By: #### A SSBA #### [facility] [address] [place] [address] Dr. Sy Casillas URINE MICROSCOPIC ONLYon BACTERIA TRACE Abnormal NONE SEEN [facility] Comment on above: Performed By: #### U MICRO, ERUR #### [facility] [address] [place] [address] Dr. Sy Casillas Bacteria identified Cx Nom (U) NOT INDICATED Normal [facility] Comment on above: Performed By: #### U MICRO, ERUR #### [facility] [address] [place] [address] Dr. Sy Casillas CAST NONE SEEN Normal NONE SEEN [facility] Comment on above: Performed By: #### U MICRO, ERUR #### [facility] [address] [place] [address] Dr. Sy Casillas Crystals LM Nom (Urine sed) NONE SEEN Normal NONE SEEN [facility] Comment on above: Performed By: #### U MICRO, ERUR #### [facility] [address] [place] [address] Dr. Sy Casillas Epithelial cells LM Ql (Urine sed) RARE Normal NONE SEEN /RARE [facility] Comment on above: Performed By: #### U MICRO, ERUR #### [facility] [address] [place] [address] Dr. Sy Casillas MUCOUS NONE SEEN Normal NONE SEEN [facility] Comment on above: Performed By: #### U MICRO, ERUR #### [facility] [address] [place] [address] Dr. Sy Casillas RBC 2-5 Abnormal 0-2 [facility] Comment on above: Performed By: #### U MICRO, ERUR #### [facility] [address] [place] [address] Dr. Sy Casillas WBC 2-5 Abnormal NONE SEEN [facility] Comment on above: Performed By: #### U MICRO, ERUR #### [facility] [address] [place] [address] Dr. Sy Casillas XR CHEST 1 Von [...] BYRON QUINTERO Date: 2022-11-08 15:19 Normal [facility] PROF CHEM 8 (BAS METB)on Anion gap [Moles/Vol] 14.2 mmol/L Normal [facility] Comment on above: Performed By: #### C MP, BNP, TSHRFT4 #### [facility] [address] [place] [address] Dr. Sy Casillas Calcium [Mass/Vol] 8.9 mg/dL Normal 8.5-10.1 Comment on above: Performed By: #### C MP, BNP, TSHRFT4 #### [facility] [address] [address] [address] Sy Casillas Chloride [Moles/Vol] 96 mmol/L Critically low 98-107 Comment on above: Performed By: #### C MP, BNP, TSHRFT4 #### [facility] [address] [address] [address] Sy Casillas CO2 [Moles/Vol] 29.7 mmol/L Normal 21.0-32.0 Comment on above: Performed By: #### C MP, BNP, TSHRFT4 #### [facility] [address] [place] [address] Dr. Sy Casillas Creatinine [Mass/Vol] 1.27 mg/dL Critically high 0.55-1.02 Comment on above: Performed By: #### C MP, BNP, TSHRFT4 #### [facility] [address] [place] [address] Dr. Sy Casillas EGFR-AF JAPANESE 49 mL/min/1.73m2 Critically low >=60 Comment on above: Performed By: #### C MP, BNP, TSHRFT4 #### [facility] [address] [place] [address] Dr. Sy Casillas EGFR-NON AF JAPANESE 40 mL/min/1.73m2 Critically low >=60 Comment on above: Performed By: #### C MP, BNP, TSHRFT4 #### [facility] [address] [address] [address] Sy Casillas Glucose [Mass/Vol] 526 mg/dL Critically high 74-106 [facility] Comment on above: Performed By: #### C MP, BNP, TSHRFT4 #### [facility] [address] [address] [address] Sy Casillas Potassium [Moles/Vol] 3.9 mmol/L Normal 3.5-5.1 [facility] Comment on above: Performed By: #### C MP, BNP, TSHRFT4 #### [facility] [address] [place] [address] Dr. Sy Casillas Sodium [Moles/Vol] 136 mmol/L Normal 136-145 Comment on above: Performed By: #### C MP, BNP, TSHRFT4 #### [facility] [address] [place] [address] Dr. Sy Casillas Urea nitrogen [Mass/Vol] 24.0 mg/dL Critically high 7.0-18.0 Comment on above: Performed By: #### C MP, BNP, TSHRFT4 #### [facility] [address] [place] [address] Dr. Sy Casillas Urea nitrogen/Creatinin e [Mass ratio] 18.9 mg/mg Normal Comment on above: Performed By: #### C MP, BNP, TSHRFT4 #### [facility] [address] [place] [address] Dr. Sy Casillas Orders Onlyon 11-02-2022 Orders Only [id number] Angélica Shen 1940 Provider Department Center 11/02/2022 VIVIANE BOLTON [facility]. Family History Problem Relation Age of Onset Coronary artery disease Mother Diabetes Mother Alcohol abuse Father Family Status - Relation Status Age at Mother Father Normal [facility] Telephoneon 11-02-2022 Telephone [id number] Angélica Shen 1940 Date Provider Department Center 11/02/2022 LEYLA JARRETT [facility] Family History Problem Relation Age of Onset Coronary artery disease Mother Diabetes Mother Alcohol abuse Father Family Status - Relation Status Age at Mother Father Normal [facility] BNPon 11-01-2022 Natriuretic peptide B (Bld) [Mass/Vol] 2503.0 pg/mL Critically high <=1,800.0 Comment on above: Performed By: #### C MP, BNP, TSHRFT4 #### [facility] [address] [place], [place] [id number] Dr. Sy Casillas Office Visiton 11-01-2022 Follow-up visit [id number] Angélica Shen yany [place] 1940 F Date Provider Department Center 11/01/2022 1596-VIVIANE ORTEZ [facility] Family History Problem Relation Age of Onset Coronary artery disease Mother Diabetes Mother Alcohol abuse Father Family Status - Relation Status Age at Mother Father Level of Service:30532 [facility] OFFICE/OUTPATIENT ESTABLISHED HIGH MDM 40-54 MIN Reason for Visit and Comments: Coronary Artery Disease [187] Atrial Fibrillation [80] Shortness of Breath [267454] Normal [facility] PROF 14(COMP METB)on 023 Albumin [Mass/Vol] 3.4 g/dL Normal 3.4-5.0 Comment on above: Performed By: #### C MP, BNP, TSHRFT4 #### [facility] [address] [place] [address] Dr. Sy Casillas Albumin/Globulin [Mass ratio] 1.1 {ratio} Normal Comment on above: Performed By: #### C MP, BNP, TSHRFT4 #### [facility] [address] [address] [address] Sy Casillas ALP [Catalytic activity/Vol] 108 U/L Normal 46-116 [facility] Comment on above: Performed By: #### C MP, BNP, TSHRFT4 #### [facility] [address] [address] [address] Sy Casillas ALT [Catalytic activity/Vol] 44 U/L Normal 14-59 [facility] Comment on above: Performed By: #### C MP, BNP, TSHRFT4 #### [facility] [address] [address] [address] Sy Casillas Anion gap [Moles/Vol] 14.6 mmol/L Normal Comment on above: Performed By: #### C MP, BNP, TSHRFT4 #### [facility] [address] [place] [address] Dr. Sy Casillas AST [Catalytic activity/Vol] 14 U/L Critically low 15-37 [facility] Comment on above: Performed By: #### C MP, BNP, TSHRFT4 #### [facility] [address] [place] [address] Dr. Sy Casillas Bilirubin [Mass/Vol] 1.5 mg/dL Critically high 0.2-1.0 Comment on above: Performed By: #### C MP, BNP, TSHRFT4 #### [facility] [address] [place] [address] Dr. Sy Casillas Calcium [Mass/Vol] 9.3 mg/dL Normal 8.5-10.1 [facility] Comment on above: Performed By: #### C MP, BNP, TSHRFT4 #### [facility] [address] [place] [address] Dr. Sy Casillas Chloride [Moles/Vol] 97 mmol/L Critically low 98-107 Comment on above: Performed By: #### C MP, BNP, TSHRFT4 #### [facility] [address] [place] [address] Dr. Sy Casillas CO2 [Moles/Vol] 28.1 mmol/L Normal 21.0-32.0 [facility] Comment on above: Performed By: #### C MP, BNP, TSHRFT4 #### [facility] [address] [place] [address] Dr. Sy Casillas Creatinine [Mass/Vol] 0.93 mg/dL Normal 0.55-1.02 [facility] Comment on above: Performed By: #### C MP, BNP, TSHRFT4 #### [facility] [address] [place] [address] Dr. Sy Casillas EGFR-AF JAPANESE >60 Normal >=60 [facility] Comment on above: Performed By: #### C MP, BNP, TSHRFT4 #### [facility] [address] [place] [address] Dr. Sy Casillas EGFR-NON AF JAPANESE 58 mL/min/1.73m2 Critically low >=60 [facility] Comment on above: Performed By: #### C MP, BNP, TSHRFT4 #### [facility] [address] [place] [address] Dr. Sy Casillas Globulin (S) [Mass/Vol] 3.1 g/dL Normal Comment on above: Performed By: #### C MP, BNP, TSHRFT4 #### [facility] [address] [place] [address] Dr. Sy Casillas Glucose [Mass/Vol] 421 mg/dL Critically high 74-106 T [facility] Comment on above: Performed By: #### C MP, BNP, TSHRFT4 #### [facility] [address] [place] [address] Dr. Sy Casillas Potassium [Moles/Vol] 3.7 mmol/L Normal 3.5-5.1 Comment on above: Performed By: #### C MP, BNP, TSHRFT4 #### [facility] [address] [place] [address] Dr. Sy Casillas Protein [Mass/Vol] 6.5 g/dL Normal 6.4-8.2 Comment on above: Performed By: #### C MP, BNP, TSHRFT4 #### [facility] [address] [place] [address] Dr. Sy Casillas Sodium [Moles/Vol] 136 mmol/L Normal 136-145 Comment on above: Performed By: #### C MP, BNP, TSHRFT4 #### [facility] [address] [place] [address] Dr. Sy Casillas Urea nitrogen [Mass/Vol] 26.0 mg/dL Critically high 7.0-18.0 Comment on above: Performed By: #### C MP, BNP, TSHRFT4 #### [facility] [address] [place] [address] Dr. Sy Casillas Urea nitrogen/Creatinin e [Mass ratio] 28.0 mg/mg Normal Comment on above: Performed By: #### C MP, BNP, TSHRFT4 #### [facility] [address] [place] [address] Dr. Sy Casillas TSH W/ REFLEX TO FT4on 11-01 TSH 0.925 uIU/mL Normal 0.358-3.740 [facility] Comment on above: Performed By: #### C MP, BNP, TSHRFT4 #### [facility] [address] [address] [address] Sy Casillas ECHOCARDIO M/2D COMPLETEon 0 10-18-2022 ECHOCARDIO M/2D COMPLETE Patient: MYRNA SHEN Exam Date: 10/18/2022 : 1940 Gender:F Ordering : DR LEXI PURCELL M.D. Admission #: [id number] Family : DR. DARBY HAMLIN . Order #: [id number] CLICK HERE TO VIEW EXAM ECHOCARDIOGRAM REPORT [...] m/s, 0.72 m/s Right Atrium Dictated by: Lexi Purcell M.D. on 10/19/2022 at 18:32 Approved by: Lexi Purcell M.D. on 10/19/2022 at 18:37 Normal [facility] ANTISCLERODERMA ABon 023 Antiscleroderma-70 Antibodies <0.2 Normal 0.0-0.9 [facility] Comment on above: Performed By: #### C MP, BNP, TSHRFT4 #### [facility] [address] [place] [address] Dr. Sy Casillas SJOGRENS ANTI-SS-Aon 023 Sjogren's Anti-SS-A <0.2 Normal 0.0-0.9 [facility] Comment on above: Performed By: #### A SSBA #### [facility] [address] [place] [address] Dr. Sy Casillas SJOGRENS ANTI-SS-Bon 023 Sjogren's Anti-SS-B <0.2 Normal 0.0-0.9 [facility] Comment on above: Performed By: #### A SSBA #### [facility] [address] [place] [address] Dr. Sy Casillas JARAMILLO ANTIBODIESon 3 Jaramillo Antibodies <0.2 Normal 0.0-0.9 [facility] Comment on above: Performed By: #### A SSBA #### [facility] [address] [place] [address] Dr. Sy Casillas Office Visiton 09-25-2022 Follow-up visit [id number] Angélica Shen 1940 F Date Provider Department Center 09/25/2022 LEXI VILLALTA [facility] Family History Problem Relation Age of Onset Coronary artery disease Mother Diabetes Mother Alcohol abuse Father Family Status - Relation Status Age at Mother Father Level of Service:78988 [facility] OFFICE/OUTPATIENT ESTABLISHED MOD MDM 30-39 MIN Reason for Visit and Comments: Coronary Artery Disease [187] Hypertension [454227] Atrial Fibrillation [80] Normal [facility] DARREL by IFAon 09-19-2022 Antinuclear Antibodies, IFA Positive Abnormal [facility] Comment on above: Result Comment: Nega tive <1:80 Borderline 1:80 Positive >1:80 Performed By: #### A SSBA #### [facility] [address] [address] [address] Sy Casillas Centriole Pattern Normal Comment on above: Performed By: #### A SSBA #### [facility] [address] [address] [address] Sy Casillas Centromere Pattern Normal Comment on above: Performed By: #### A SSBA #### [facility] [address] [address] [address] Sy Casillas Homogeneous Pattern Normal Comment on above: Performed By: #### A SSBA #### [facility] [address] [address] [address] Sy Casillas Midbody Pattern Normal Comment on above: Performed By: #### A SSBA #### [facility] [address] [address] [address] Sy Casillas Note: Comment Normal Comment on above: Result Comment: For more [...] titers Nucleosomes, Histones Drug-induced SLE Speckled Sm, TUBE BENDING MACHINE OPERATOR, SCL-70, SLE,MCTD,PSS (diffuse form), SS-A/SS-B Sjogrens Nucleolar SCL-70, PM-1/SCL High titers Scleroderma, PM/DM Centromere Centromere PSS (limited form) w/Crest syndrome variable Nuclear Dot [id number] Primary Biliary Cirrhosis Nuclear GP210, Primary Biliary Cirrhosis Membrane belem A,B,C Performed By: #### A SSBA #### [facility] [address] [place] [address] Dr. Sy Casillas Nuclear Dot Pattern Normal [facility] Comment on above: Performed By: #### A SSBA #### [facility] [address] [address] [address] Sy Casillas Nuclear Membrane Pattern Normal [facility] Comment on above: Performed By: #### A SSBA #### [facility] [address] [place] [address] Dr. Sy Casillas Nucleolar Pattern Normal Comment on above: Performed By: #### A SSBA #### [facility] [address] [place] [address] Dr. Sy Casillas PCNA Pattern Normal [facility] Comment on above: Performed By: #### A SSBA #### [facility] [address] [place] [address] Dr. Sy Casillas Speckled Pattern 1:320 Critically high [facility] Comment on above: Result Comment: Dens e Fine Speckled pattern is noted. This pattern suggests the presence of DFS70 antibody which has a low prevalence in systemic autoimmune rheumatic diseases. ICAP nomenclature: [id number]-2,4,5,29 Performed By: #### A SSBA #### [facility] [address] [place] [address] Dr. Sy Casillas Spindle Apparatus Pattern Normal [facility] Comment on above: Performed By: #### A SSBA #### [facility] [facility] [address] [place] [address] Dr. Sy Casillas BNPon 09-15-2022 Natriuretic peptide B (Bld) [Mass/Vol] 1243.0 pg/mL Normal <=1,800.0 Comment on above: Performed By: #### C MP, BNP, TSHRFT4 #### [facility] [address] [place] [address] Dr. Sy Casillas CBC AUTO DIFFon 09-15-2022 BASO # 0.1 103/ul Normal 0.0-0.1 Comment on above: Performed By: #### C MP, BNP, TSHRFT4 #### [facility] [address] [place] [address] Dr. Sy Casillas Basophils/100 WBC (Bld) 0.8 % Normal 0.2-2.0 [facility] Comment on above: Performed By: #### C MP, BNP, TSHRFT4 #### [facility] [address] [place] [address] Dr. Sy Casillas EO # 0.1 103/ul Normal 0.0-0.7 [facility] Comment on above: Performed By: #### C MP, BNP, TSHRFT4 #### [facility] [address] [place] [address] Dr. Sy Casillas Eosinophils/100 WBC (Bld) 0.5 % Critically low 0.9-7.0 Comment on above: Performed By: #### C MP, BNP, TSHRFT4 #### [facility] [address] [place] [address] Dr. Sy Casillas Erythrocyte distribution width (RBC) [Ratio] 18.5 % Critically high 11.0-15.0 Comment on above: Performed By: #### C MP, BNP, TSHRFT4 #### [facility] [address] [place] [address] Dr. Sy Casillas Hematocrit (Bld) [Volume fraction] 42.9 % Normal 36.0-48.0 Comment on above: Performed By: #### C MP, BNP, TSHRFT4 #### [facility] [address] [place] [address] Dr. Sy Casillas Hemoglobin (Bld) [Mass/Vol] 13.3 g/dL Normal 12.0-16.0 Comment on above: Performed By: #### C MP, BNP, TSHRFT4 #### [facility] [address] [place] [address] Dr. Sy Casillas IG # 0.19 10e3/ul Critically high 0.00-0.03 Comment on above: Performed By: #### C MP, BNP, TSHRFT4 #### [facility] [address] [place] [address] Dr. Sy Casillas IG % 1.4 % Critically high 0.0-0.5 Comment on above: Performed By: #### C MP, BNP, TSHRFT4 #### [facility] [address] [place] [address] Dr. Sy Casillas LYMPH # 1.1 103/ul Critically low 1.2-3.8 [facility] Comment on above: Performed By: #### C MP, BNP, TSHRFT4 #### [facility] [address] [place] [address] Dr. Sy Casillas Lymphocytes/100 WBC (Bld) 8.4 % Critically low 20.5-60.0 Comment on above: Performed By: #### C MP, BNP, TSHRFT4 #### [facility] [address] [place] [address] Dr. Sy Casillas MANUAL DIFF REQ NO Normal Comment on above: Performed By: #### C MP, BNP, TSHRFT4 #### [facility] [address] [place] [address] Dr. Sy Casillas MCH (RBC) [Entitic mass] 24.5 pg Critically low 26.7-34.0 Comment on above: Performed By: #### C MP, BNP, TSHRFT4 #### [facility] [address] [place] [address] Dr. Sy Casillas MCHC (RBC) [Mass/Vol] 31.0 g/dL Normal 29.9-35.2 Comment on above: Performed By: #### C MP, BNP, TSHRFT4 #### [facility] [address] [place] [address] Dr. Sy Casillas MCV (RBC) [Entitic vol] 79.0 fL Critically low 81.0-99.0 [facility] Comment on above: Performed By: #### C MP, BNP, TSHRFT4 #### [facility] [address] [place] [address] Dr. Sy Casillas MONO # 0.7 103/ul Normal 0.3-0.8 [facility] Comment on above: Performed By: #### C MP, BNP, TSHRFT4 #### [facility] [address] [place] [address] Dr. Sy Casillas Monocytes/100 WBC (Bld) 5.0 % Normal 1.7-12.0 [facility] Comment on above: Performed By: #### C MP, BNP, TSHRFT4 #### [facility] [address] [place] [address] Dr. Sy Casillas NEUT # 11.0 103/ul Critically high 1.4-6.5 [facility] Comment on above: Performed By: #### C MP, BNP, TSHRFT4 #### [facility] [address] [place] [address] Dr. Sy Casillas Neutrophils/100 WBC (Bld) 83.9 % Critically high 43.0-75.0 [facility] Comment on above: Performed By: #### C MP, BNP, TSHRFT4 #### [facility] [address] [place] [address] Dr. Sy Casillas Platelet mean volume (Bld) [Entitic vol] 10.3 fL Normal 9.5-13.5 [facility] Comment on above: Performed By: #### C MP, BNP, TSHRFT4 #### [facility] [address] [place] [address] Dr. Sy Casillas PLT 212 103/ul Normal 150-450 [facility] Comment on above: Performed By: #### C MP, BNP, TSHRFT4 #### [facility] [address] [place] [address] Dr. Sy Casillas RBC 5.43 106/ul Critically high 4.20-5.40 [facility] Comment on above: Performed By: #### C MP, BNP, TSHRFT4 #### [facility] [address] [place] [address] Dr. Sy Casillas WBC 13.1 103/ul Critically high 4.0-11.0 [facility] Comment on above: Performed By: #### C MP, BNP, TSHRFT4 #### [facility] [address] [place] [address] Dr. Sy Casillas LIPID PROFILEon 09-15-2022 CHOL-HDL RATIO NORM SEE BELOW Normal Comment on above: Result Comment: 3.3 - 4.4 LOW RISK 4.4 - 7.1 AVERAGE RISK 7.1 - 11.0 MODERATE RISK >11.0 HIGH RISK Performed By: #### C MP, BNP, TSHRFT4 #### [facility] [address] [place] [address] Dr. Sy Casillas Cholesterol [Mass/Vol] 147 mg/dL Normal <=200 Comment on above: Performed By: #### C MP, BNP, TSHRFT4 #### [facility] [address] [place] [address] Dr. Sy Casillas Cholesterol in HDL [Mass/Vol] 53 mg/dL Normal 40-60 Comment on above: Performed By: #### C MP, BNP, TSHRFT4 #### [facility] [address] [place] [address] Dr. Sy Casillas Cholesterol in LDL [Mass/Vol] 84.2 mg/dL Normal [facility] Comment on above: Performed By: #### C MP, BNP, TSHRFT4 #### [facility] [address] [place] [address] Dr. Sy Casillas Cholesterol.total/ Cholesterol in HDL [Mass ratio] 2.8 {ratio} Normal [facility] Comment on above: Performed By: #### C MP, BNP, TSHRFT4 #### [facility] [address] [place] [address] Dr. Sy Casillas HDL NORMAL > or = 60 mg/dl - LO W CARDIOVASCULAR RISK <40 mg/dl - HIGH CARDIOVASCULAR RISK Normal Comment on above: Performed By: #### C MP, BNP, TSHRFT4 #### [facility] [address] [place] [address] Dr. Sy Casillas LDL CALC NORMAL SEE BELOW Normal [facility] Comment on above: Result Comment: <100 mg/dl OPTIMAL 100 - 129 mg/dl NEAR OR ABOVE OPTIMAL 130 - 159 mg/dl BORDERLINE HIGH 160 - 189 mg/dl HIGH >190 mg/dl VERY HIGH Performed By: #### C MP, BNP, TSHRFT4 #### [facility] [address] [address] [address] Sy Casillas Triglyceride [Mass/Vol] 49 mg/dL Normal <=150 [facility] Comment on above: Performed By: #### C MP, BNP, TSHRFT4 #### [facility] [address] [place] [address] Dr. Sy Casillas VLDL CALC 9.8 mg/dL Normal [facility] Comment on above: Performed By: #### C MP, BNP, TSHRFT4 #### [facility] [address] [place] [address] Dr. Sy Casillas PROF 14(COMP METB)on 023 Albumin [Mass/Vol] 4.0 g/dL Normal 3.4-5.0 Comment on above: Performed By: #### C MP, BNP, TSHRFT4 #### [facility] [address] [place] [address] Dr. Sy Casillas Albumin/Globulin [Mass ratio] 1.3 {ratio} Normal [facility] Comment on above: Performed By: #### C MP, BNP, TSHRFT4 #### [facility] [address] [place] [address] Dr. Sy Casillas ALP [Catalytic activity/Vol] 99 U/L Normal 46-116 [facility] Comment on above: Performed By: #### C MP, BNP, TSHRFT4 #### [facility] [address] [place] [address] Dr. Sy Casillas ALT [Catalytic activity/Vol] 20 U/L Normal 14-59 [facility] Comment on above: Performed By: #### C MP, BNP, TSHRFT4 #### [facility] [address] [place] [address] Dr. Sy Casillas Anion gap [Moles/Vol] 13.3 mmol/L Normal Comment on above: Performed By: #### C MP, BNP, TSHRFT4 #### [facility] [address] [place] [address] Dr. Sy Casillas AST [Catalytic activity/Vol] 13 U/L Critically low 15-37 Comment on above: Performed By: #### C MP, BNP, TSHRFT4 #### [facility] [address] [place] [address] Dr. Sy Casillas Bilirubin [Mass/Vol] 0.6 mg/dL Normal 0.2-1.0 Comment on above: Performed By: #### C MP, BNP, TSHRFT4 #### [facility] [address] [place] [address] Dr. Sy Casillas Calcium [Mass/Vol] 9.7 mg/dL Normal 8.5-10.1 Comment on above: Performed By: #### C MP, BNP, TSHRFT4 #### [facility] [address] [place] [address] Dr. Sy Casillas Chloride [Moles/Vol] 107 mmol/L Normal 98-107 [facility] Comment on above: Performed By: #### C MP, BNP, TSHRFT4 #### [facility] [address] [place] [address] Dr. Sy Casillas CO2 [Moles/Vol] 29.0 mmol/L Normal 21.0-32.0 [facility] Comment on above: Performed By: #### C MP, BNP, TSHRFT4 #### [facility] [address] [place] [address] Dr. Sy Casillas Creatinine [Mass/Vol] 0.65 mg/dL Normal 0.55-1.02 Comment on above: Performed By: #### C MP, BNP, TSHRFT4 #### [facility] [address] [place] [address] Dr. Sy Casillas EGFR-AF JAPANESE >60 Normal >=60 Comment on above: Performed By: #### C MP, BNP, TSHRFT4 #### [facility] [address] [address] [address] Sy Casillas EGFR-NON AF JAPANESE >60 Normal >=60 Comment on above: Performed By: #### C MP, BNP, TSHRFT4 #### [facility] [address] [address] [address] Sy Casillas Globulin (S) [Mass/Vol] 3.1 g/dL Normal Comment on above: Performed By: #### C MP, BNP, TSHRFT4 #### [facility] [address] [place] [address] Dr. Sy Casillas Glucose [Mass/Vol] 149 mg/dL Critically high 74-106 [facility] Comment on above: Performed By: #### C MP, BNP, TSHRFT4 #### [facility] [address] [place] [address] Dr. Sy Casillas Potassium [Moles/Vol] 4.3 mmol/L Normal 3.5-5.1 Comment on above: Performed By: #### C MP, BNP, TSHRFT4 #### [facility] [address] [place] [address] Dr. Sy Casillas Protein [Mass/Vol] 7.1 g/dL Normal 6.4-8.2 Comment on above: Performed By: #### C MP, BNP, TSHRFT4 #### [facility] [address] [place] [address] Dr. Sy Casillas Sodium [Moles/Vol] 145 mmol/L Normal 136-145 Comment on above: Performed By: #### C MP, BNP, TSHRFT4 #### [facility] [address] [place] [address] Dr. Sy Casillas Urea nitrogen [Mass/Vol] 19.0 mg/dL Critically high 7.0-18.0 Comment on above: Performed By: #### C MP, BNP, TSHRFT4 #### [facility] [address] [address] [address] Sy Casillas Urea nitrogen/Creatinin e [Mass ratio] 29.2 mg/mg Normal Comment on above: Performed By: #### C MP, BNP, TSHRFT4 #### [facility] [id number] Sy Casillas Office Visiton 06-20-2022 Follow-up visit [id number] Angélica Shen 1940 F Date Provider Department Center 06/20/2022 Emre-VIVIANE ORTEZ CARD [facility] Family History Problem Relation Age of Onset Coronary artery disease Mother Diabetes Mother Alcohol abuse Father Family Status - Relation Status Age at Mother Father Level of Service:88155 [facility] OFFICE/OUTPATIENT ESTABLISHED LOW MDM 20-29 MIN Reason for Visit and Comments: Coronary Artery Disease [187] Atrial Fibrillation [80] Hypertension [488973] Normal [facility] Encounters Encounter Date Encounter Type Care Provider Facility Start: 12-20-2023 End: 12-20-2023 ambulatory Ana Bill MD Work Phone: Hematology/Oncology Comment on above: 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); Pancytopenia (HCC); Immunocompromised (HCC) Start: 12-20-2023 End: 12-20-2023 Telemedicine consultation with patient Ana Bill MD Work Phone: Hematology/Oncology Start: 11-22-2023 Telephone encounter Ana Bill MD Work Phone: Hematology/Oncology Comment on above: Caustic Strength Inspector - O ther (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 to 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 from 17 to 11 48 hours ) Start: 11-20-2023 End: 11-20-2023 ambulatory Aneta Krueger Facility:[facility] Start: 11-20-2023 End: 11-20-2023 Departed Referred [facility] Start: 11-19-2023 End: 11-19-2023 Specialty Pharmacy Flory Blackburn RPh [facility] Comment on above: SPP Oral Oncology/he matology - Medication Refill (Imatinib 400mg) 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); Pancytopenia (HCC); Atrial fibrillation, unspecified type (HCC); Coronary artery disease without angina pectoris, unspecified vessel or lesion type, unspecified whether [place] or transplanted heart; Immunocompromised (HCC) Start: 10-18-2023 End: 10-18-2023 Telemedicine consultation with patient Ana Bill MD Work Phone: [facility] Start: 10-02-2023 Telephone encounter Lachelle Reyez Work Phone: Hematology/Oncology Comment on above: Opened In Error (sen t on incorrect pt ) Start: 10-01-2023 End: 10-12-2023 ambulatory MD Darby Hamlin Facility:CD:[id number] Start: 09-26-2023 Refill Lamberto morris MD, PhD Work Phone: Hematology/Oncology Comment on above: Refill Request SPP Oral Oncology/he matology - Medication Refill (Venclexta) Start: 09-20-2023 ambulatory Denver Calle [facility] Start: 09-20-2023 Chart abstracting Latosha Austin Research Coordinator Work Phone: Hematology/Oncology Comment on above: Research (IRB 5024: Collection of Blood & Bone Marrow from [employer] Patients for Research Purposes) Refill Request Start: 09-20-2023 Patient encounter procedure Denver Calle [facility] Comment on above: SPP Oral Oncology/he matology - Treatment Referral (Venclexta); Insurance Authorization ([place] Not Required) Start: 09-20-2023 Telephone encounter Krista Auguste Hem atology/Oncology Comment on above: Medication Assistanc e Program ([facility] PATIENT PROGRAM; APPROVED FOR DATES: 09/20/2023 - 07/15/2024) Start: 09-20-2023 Evaluation and management of inpatient LAMBERTO ECHAVARRIA Facility:[facility] Start: 09-19-2023 End: 09-20-2023 ambulatory MD Darby Hamlin Facility:[facility] Start: 09-18-2023 End: 09-18-2023 ambulatory NON STAFF Facility:[facility] Start: 09-18-2023 End: 09-18-2023 Departed Referred [facility] Start: 09-18-2023 End: 09-19-2023 ambulatory MD Darby Hamlin Facility:[facility]ue Start: 08-31-2023 End: 09-01-2023 ambulatory MEDICAL ADMINISTRATIVE TECHNICIAN Aurea Josefina Jose Facility[facility] Start: 08-31-2023 End: 08-31-2023 Lab Drop off Aurea Garcia [facility] Start: 07-18-2023 ambulatory MD Darby Hamlin Facil ity:[facility] Start: 04-27-2023 End: 04-27-2023 ambulatory [facility] Start: 03-28-2023 ambulatory MD Darby Hamlin Facil ity:[facility] Start: 03-02-2023 End: 03-02-2023 ambulatory [facility] Start: 12-27-2022 End: 12-28-2022 ambulatory MD Darby Hamlin Facility:[facility] Start: 12-19-2022 End: 12-20-2022 ambulatory MD Darby Hamlin Facility:[facility] Start: 12-19-2022 End: 12-19-2022 Lab Drop off Darby Hamlin [facility] Start: 12-12-2022 End: 12-13-2022 ambulatory MD Darby Hamlin Facility:[facility] Start: 12-12-2022 End: 12-12-2022 Lab Drop off Darby Hamlin [facility] Start: 11-14-2022 ambulatory SATNAM [facility] Start: 11-08-2022 End: 11-09-[address] RORY WEST . Facility:[facility] Start: 11-06-2022 End: 11-07-2022 ambulatory DARBY HAMLIN Facility:[facility] Start: 11-01-2022 End: 11-02-2022 ambulatory DARBY HAMLIN Facility:[facility] Start: 11-01-2022 End: 11-01-2022 ambulatory VIVIANE [facility] Start: 10-18-2022 End: 10-19-2022 ambulatory DARBY HAMLIN Facility:[facility] Start: 10-04-2022 End: 10-05-2022 ambulatory DARBY HAMLIN Facility:[facility] Start: 09-25-2022 End: 09-25-2022 ambulatory [facility] Start: 09-15-2022 End: 09-16-[address] DOCTOR PÉREZ Facility:[facility] Start: 09-13-2022 End: 09-13-2022 ambulatory PEYTON Villanueva Work Phone: [facility] Work Phone: Start: 09-13-2022 End: 09-13-2022 Departed Referred PA-Cameron Villanueva Work Phone: [facility] [place] Work Phone: Start: 07-17-[address] ANA ROSA REDDING . Facil ity:[facility] Start: 06-20-2022 End: 06-20-2022 ambulatory [facility] Procedures Date Procedure Procedure Detail Performing Clinician Start: 09-28-2023 Antibody screen LAMBERTO SOLANOKHERJEE Comment on above: Order Comment: Speci men Type: BLOOD SPECIMENOrdering Facility: [facility] Address: [address] [place] [address] Performed By: #### T SCR ####CC MAIN BLOOD BANKCLIA [id number] [address] Start: 09-24-2023 Antibody screen LAMBERTO ECHAVARRIA Comment on above: Order Comment: Speci men Type: BLOOD SPECIMENOrdering Facility: [facility] Address: [address] [place] [address] Performed By: #### T SCR ####CC [facility] BLOOD BANKCLIA [id number] [address] [place] Start: 09-21-2023 Echocardiography SUDIPT O JERICHO Start: 09-20-2023 Antibody screen LAMBERTO ECHAVARRIA Comment on above: Order Comment: Speci men Type: BLOOD SPECIMENOrdering Facility: [facility] Address: [address] [place] [address] Performed By: #### B TREMAINE TSCR ####CC [facility] BLOOD BANKCLIA [id number] [address] [place]#### BBRABI ####[facility] LABCLIA [id number] [address] [id number] [place] Coronary artery bypass graft Darby Hamlin Comment on above: 2015 Plan of Treatment Date Care Activity Detail Author Start: 03-22-2024 Hemoglobin A1c measurement HbA1C [facility] Start: 03-16-2024 Influenza vaccination Influenz a Vaccine (Season Ended) [facility] Start: 12-21-2023 End: 12-21-2023 Specialty Pharmacy [facility] Comment on above: Refill - Imatinib (3 0DS) - Call daughter (Yuli) Refill - Imatinib (3 0DS) - Call daughter (Yuli) ask the rph - imatninb was stopped on 12/02 not resuming? Start: 12-17-2023 End: 12-17-2023 Specialty Pharmacy 12/17/2023 9:00 AM EDT Specialty Pharmacy [facility] [address] [facility] [place] [address] Pharmacist, [facility] [address] [place] [id number] Refill - Imatinib (30DS) - Call daughter (Yuli) [facility] Comment on above: Refill - Imatinib (3 0DS) - Call daughter (Yuli) Start: 07-16-2023 Advance Directive Discussion Advance Directive Discussion [facility] Start: 07-16-2023 Behavioral Health Screening Behavioral Health Screening [facility] Start: 07-16-2023 Depression Assessment Depression Ass essment [facility] Start: 03-16-2023 Influenza vaccination Influenza Vacc ine (#1) [facility] Start: 09-13-2022 Superficial Wound Culture Superficial Wound Culture [facility] Start: 10-15-2020 Covid-19 Vaccine (3 - Moderna risk series) Covid-19 Vaccine (3 - Moderna risk series) [facility] Start: 2007 Screening for osteoporosis Bone Density Screening [facility] Start: 2002 RSV Vaccine (1 - 1-d ose 60+ series) RSV Vaccine (1 - 1-dose 60+ series) [facility] Start: 1961 Shingrix Vaccine (1 of 2) Shingrix Vaccine (1 of 2) [facility] Start: 1961 Urine microalbumin profile DTaP,Tdap,Td Vaccine (1 - Tdap) [facility] Start: 1960 Hepatitis B surface antibody level LDL Cholesterol [facility] Start: 1952 Diabetic foot examination Diabetic Foot Exam [facility] Start: 1952 Glaucoma screening Dilated Retinal E xam [facility] Start: 1952 Hepatitis B screening Urine Al bumin:Creatinine Ratio [facility] Start: 1948 Pneumococcal Vaccine : 65+ (1 of 2 - PCV) Pneumococcal Vaccine: 65+ (1 of 2 - PCV) [facility] Start: 1947 [facility] Immunizations Immunization Date Immunization Notes Care Provider Edgardo longo 09-17-2020 SARS-CoV-2 (COVID-19 ) mRNA-1273 vaccine Darby Hamlin [facility] 08-20-2020 SARS-CoV-2 (COVID-19 ) mRNA-1273 vaccine Darby Hamlin [facility] Payers Date Payer Category Payer Medicare [id number] 2023 Medicare [id number] 1957 Medicare [id number] 1957 Self-pay 1940 Unknown [id number] 2.16.840.1.603449.3.579.2 .593 1940 Unknown [id number] 2.16.840.1.598981.3.579.2 .593 1942 Unknown [id number] 2.16.840.1.441529.3.579.2 .593 1942 Unknown [id number] 2.16.840.1.442649.3.579.2 .593 1942 Unknown [id number] 2.16.840.1.589051.3.579.2 .593 1942 Unknown [id number] 2.16.840.1.556845.3.579.2 .593 1942 Unknown [id number] 2.16.840.1.394929.3.579.2 .593 1942 Unknown [id number] 2.16.840.1.908716.3.579.2 .593 1942 Unknown [id number] 2.16.840.1.537715.3.579.2 .727 1942 Unknown [id number] 2.16.840.1.956528.3.579.2 .727 1942 Unknown [id number] 2.16.840.1.518974.3.579.2 .727 1942 Unknown [id number] 2.16.840.1.775894.3.579.2 .727 1942 Unknown [id number] 2.16.840.1.796529.3.579.2 .727 1942 Unknown [id number] 2.16.840.1.025509.3.579.2 .727 1942 Unknown [id number] 2.16.840.1.868827.3.579.2 .72 1942 Unknown [id number] 2.16.840.1.442091.3.579.2 .727 1942 Unknown [id number] 2.16.840.1.485803.3.579.2 .727 1942 Unknown [id number] 2.16.840.1.360879.3.579.2 .727 1942 Unknown [id number] 2.16.840.1.788591.3.579.2 .727 Private Health Insurance [facility] [id number] Unknown [id number] 2.16.840.1.136015.3.579.2 .531 Unknown [id number] 2.16.840.1.033396.3.579.2 .531 Social History Date Type Detail [facility] Work Phone: Start: 1940 Sex Assigned At Female [facility] Start: 12-12-2022 End: 08-31-2023 Tobacco smoking status Never smoked tobacco (finding) [facility] Comment on above: denies Tobacco smoking status Never Ian lovellNathan [facility] Comment on above: denies Start: 03-02-2022 End: 12-20-2023 Sex Assigned At Female Haile Evans [facility] Start: 07-03-2012 Tobacco smoking stat us [facility]IS Ex-smoker [facility] End: 07-03-1962 History of tobacco use Current smoker [facility] End: 07-03-1962 History of tobacco use Cigarette Smoker [facility] Start: 07-03-2012 Tobacco use and exposure Smokeless tobacco non-user [facility] Start: 03-02-2022 End: 09-26-2023 Alcohol intake Current drinker of alcohol (finding) [facility] Start: 03-02-2022 End: 12-20-2023 History of Social function [facility] Start: 1940 Sex Assigned At Not on file [facility] Start: 10-18-2023 Gender identity Identifies as female gender (finding) [facility] Medical Equipment Procedure Code Equipment Code Equipment Origin al Text Equipment Identifier Dates Test strips, See Instructions, 100 EA, 3, check Blood sugar daily and prn E11.9, [facility] [id number], Supply, 162, cm, 12/12/22 14:53:00 EDT, Height/Length Dosing, 81.6, kg, 12/12/22 14:53:00 EDT, Weight Dosing Start: 12-25-2022 Clinical Notes 06-20-2022 to 12-20-2023 Ana Bill MD - 12/20/2023 11:00 AM EDTTelephone Encounter - Delilah Garcia RN - 11/23/2023 10:23 AM EDTTelephone Encounter - Delilah Garcia RN - 11/23/2023 10:23 AM EDT Note Date & Type Note Facility 12-20-2023 History of Present illness Narrative Images from the original note were not included. This visit was conducted as a virtual visit. I have communicated my name and active licensure. The patient's identity and physical location were verified at the time of this visit. Either the patient or their legal outbound call center representative has been informed of the risks and benefits of -- and alternatives to -- treatment through a remote evaluation and consents to proceed with the evaluation remotely. 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 She had reported a few week history of malaise, aches and shortness of breath. CBC found to be deranged on admission including WBC: 31K with 75% peripheral blasts; HGB: 5; PLT: 9. Due to her age and tumor burden in her periphery, bone marrow biopsy was deferred. Peripheral blood was sent for flow cytometry which revealed diagnosis of AML. She was started on cycle 1 of azacitidine and venetoclax on 09/22/23. 7 days of venetoclax were initially planned but given good tolerance, she completed 14 days of venetoclax with cycle 1. Inpatient complications include mild fluid overload requiring intermittent diuresis; pancytopenia requiring blood product support; electrolyte derangements requiring replacement; culture-negative fevers requiring IV antibiotics. Due to her history of bilateral lymph node excision from history of melanoma, she was not a candidate for a PICC line and instead had a Mediport placed in IR on 09/25/23. She has completed cycle 1 of Aza Cornelio and completed 14 days of Cornelio on 10/05/23. Post DC from [facility] she was again admitted to the hospital with possible bacteremia and she has been in and out of the hospital due to panic attacks, fluid around her heart/lungs and blood transfusions. her NGS showed bcr abl and hence we should be able to target her disease with TKI - she started imatinib on 10/30/23. After being on imatinib for a month or so her cytopenias returned and her platelets dropped to less than 10. She has been needing blood or platelets almost 1-2 times a week. After discussion, she was started back on Vidaza - 12/03/23 and imatinib was stopped. Today she presented virtually with her daughters and her platelets are still low and she is having a tough time again with the Vidaza. Past Medical History: PAST MEDICAL HISTORY Diagnosis Date Hypertension Allergies: ALLERGIES Allergen Reactions [place] Fruits Intolerance Surgical History: PAST SURGICAL HISTORY Procedure Laterality Date BIOPSY/REMOVAL, LYMPH NODE(S) EXCISION OF MALIGNANT LESION, COMPLICATED Family History: FAMILY HISTORY Problem Relation Age of Onset Heart Mother None Father Cancer Other Multiple paternal relatives with cancer including bone cancer and uterine cancer as well as others Leukemia Paternal Uncle Social History: Social History Tobacco Use Smoking status: Former Types: Cigarettes Quit date: 07/03/1962 Years since quittin.5 Smokeless tobacco: Never Substance Use Topics Alcohol use: Yes Drug use: No 12 point ROS other than HPI negative Active Medications: imatinib (GLEEVEC) 400 mg tablet Take 1 tablet (400 mg) by mouth once daily with food and water. metoprolol tartrate, short acting, (LOPRESSOR) 25 mg tablet Take 1 tablet by mouth every 12 hours. acyclovir (ZOVIRAX) 400 mg tablet Take 1 tablet by mouth two times a day. levoFLOXacin (LEVAQUIN) 500 mg tablet Take 1 tablet by mouth daily at 6 am. venetoclax (VENCLEXTA) 100 mg tablet Take 1 tablet (100 mg) by mouth once daily. Take for 14 days every 28 day cycle - or as directed. Take with food and water. posaconazole DR (NOXAFIL) 100 mg tablet Take 3 tablets by mouth once daily. ALPRAZolam (XANAX) 0.5 mg tablet Take 0.5 mg by mouth as needed. Performance Status: 2- Ambulatory and capable of all selfcare; unable to carry out work activities. Up and about > 50% of waking hrs. Physical Exam Constitutional: Appearance: Normal appearance. HENT: Head: Normocephalic and atraumatic. Neurological: Mental Status: She is alert and oriented to person, place, and time. Psychiatric: Mood and Affect: Mood normal. Behavior: Behavior normal. Thought Content: Thought content normal. Labs Imaging/ Pathology Reports: Latest Ref Rng & Units 09/29/2023 CBC WBC 3.70 - 11.00 k/uL 1.23 RBC 3.90 - 5.20 m/uL 2.68 Hemoglobin 11.5 - 15.5 g/dL 8.1 Hematocrit 36.0 - 46.0 % 24.1 MCV 80.0 - 100.0 fL 89.9 MCH 26.0 - 34.0 pg 30.2 MCHC 30.5 - 36.0 g/dL 33.6 RDW-CV 11.5 - 15.0 % 19.4 Platelet Count 150 - 400 k/uL 8 MPV 9.0 - 12.7 fL 9.7 Baso% % 0.0 Abs Neut (ANC) 1.45 - 7.50 k/uL 0.49 Abs Lymph 1.00 - 4.00 k/uL 0.60 Abs Angelina <0.87 k/uL 0.01 Abs Eosin <0.46 k/uL 0.01 Abs Baso <0.11 k/uL 0.00 NRBC /100 WBC 0.0 Anisocytosis Present Ovalocytes Few RBC Fragments None Seen Few Platelet Estimate Decreased Latest Ref Rng & Units 09/29/2023 CMP Sodium 136 - 144 mmol/L 134 Potassium 3.7 - 5.1 mmol/L 3.7 Chloride 97 - 105 mmol/L 104 CO2 22 - 30 mmol/L 24 Glucose 74 - 99 mg/dL 110 BUN 7 - 21 mg/dL 11 Creatinine 0.58 - 0.96 mg/dL 0.48 EGFR >=60 mL/min/1.73m 95 Protein, Total 6.3 - 8.0 g/dL 4.9 Albumin 3.9 - 4.9 g/dL 3.0 Calcium 8.5 - 10.2 mg/dL 8.4 Bilirubin, Total 0.2 - 1.3 mg/dL 0.6 AST 13 - 35 U/L 16 ALT 7 - 38 U/L 21 Alkaline Phosphatase 34 - 123 U/L 78 Chromosome Leuk Bld CHROM JAMIE LEUK BLD Collected: 09/20/23 1133 Result status: Final Resulting lab: [employer] [facility] Value: Laboratory Accession Number: [id number] Doctor: Shazia Saleh Pathologist: N/A Surgical Pathology No: N/A Clinical diagnosis: Acute Myeloid Leukemia Specimen Type: Leukemic Blood Received Date: 09/20/2023 Number of cells counted: 20 Number of cells analyzed: 20 Number of cells karyotyped: 20 Banding resolution: 400 Banding method: G-banding DIAGNOSIS: 45,XX,add(1)(p31),t(3;3)(q21;q26 .2),add(5)(q12),-7[6]/45,id em,t(9;22)(q34;q11.2)[14] INTERPRETATION: Abnormal, female karyotype Assessment and Plan: // 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 She had reported a few week history of malaise, aches and shortness of breath. CBC found to be deranged on admission including WBC: 31K with 75% peripheral blasts; HGB: 5; PLT: 9. Due to her age and tumor burden in her periphery, bone marrow biopsy was deferred. Peripheral blood was sent for flow cytometry which revealed diagnosis of AML. She was started on cycle 1 of azacitidine and venetoclax on 09/22/23. 14 days of venetoclax with cycle 1. NGS with bcr-abl, TP53 and t(3;3) Cyto with 45,XX,add(1)(p31),t(3;3)(q21;q26 .2),add(5)(q12),-7[6]/45,id em,t(9;22)(q34;q11.2)[14] Today I discussed again that this could mean that she was either in blast phase of CML or this can be AML with bcr-abl translocation I discussed that we have multiple TKIs to target this Avoiding dasatinib due to pleural effusion side effect (current pleural effusion and h/o COPD), nilotinib and ponatinib avoiding due to CV side effects Imatinib will be the safest choice - risks and benefits discussed Her counts had recovered to platelets over 100 however on 11/13/23. imatinib started 10/30/23 However due to the cytopenias, we discussed and Vidaza was started again on 12/03/23 Today we discussed options going forward including staying on imatinib vs Vidaza/Cornelio I said that it is hard deciding what is best for her without labs or flow results Plan: I have reached out to Dr. Krueger - will discuss labs and flow results with him Given her poor tolerance I think she should just continue imatinib alone and no more vidaza TKD testing // immunocompromised - We discussed that if Hermelinda develops single oral temperature of ?38.3 C (101 F) or a temperature of ?38.0 C (100.4 F) sustained over a one-hour period, she should seek medical attention urgently. # Transfusion support: - Transfuse to maintain Hb concentration >8 g/dL. - Transfuse to maintain Platelet concentration >10 K/microL. // Afib with dilated LA Continue metoprolol Will need to restart AC once plt >50 I answered Ms. Shen questions. she verbalized understanding the plan, including alternatives. Ms. Shen agreed with these recommendations and plan. I spent a total of 40 minutes on the date of the service which included preparing to see the patient, [id number] patient care, completing clinical documentation, obtaining and/or reviewing separately obtained history, performing a medically appropriate examination, counseling and educating the patient/family/caregiver, ordering medications, tests, or procedures, and communicating with other HCPs (not separately reported). Ana Bill MD Hematology and Medical Oncology, Leukemia Division 12/20/2023 8:52 AM Pager - [phone] cc: Aneta Krueger MD [place] documented in this encounter [facility] 11-23-2023 Telephone encounter Note Call to [facility], she states her mother is scheduled to receive platelets at 1pm today. No further action needed. Delilah Garcia RN November 23, 2023 10:23 AM [facility] Work Phone: 11-23-2023 Miscellaneous Notes Call to [facility], she states her mother is scheduled to receive platelets at 1pm today. No further action needed. Delilah Garcia RN November 23, 2023 10:23 AM Called and spoke with patient's daughter, Yuli, she is in touch with the local cancer center, [place], to try to get her mother an appointment for platelets today. She will callback if the center needs a physician's approval to give platelets. Myrna Shen('s) daughter: Yuli is calling Ana Bill MD today regarding [employer] - Other (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 to 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 from 17 to 11 48 hours ) Patient daughter stated she is scheduled for platlets on Sunday but they're concerned she wont be able to make it through the weekend. Patient has been identified by name and birthdate. Duration of symptoms: 2 days Requesting response back: call Home [phone] (home) [phone] (work) Janki Ellison November 22, 2023 documented in this encounter [facility] 11-23-2023 Telephone encounter Note Called and spoke with patient's daughter, Yuli, she is in touch with the local cancer center, [place], to try to get her mother an appointment for platelets today. She will callback if the center needs a physician's approval to give platelets. [facility] 11-22-2023 Telephone encounter Note Myrna Shen('s) daughter: Yuli is calling Ana Bill MD today regarding [employer] - Other (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 to 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 from 17 to 11 48 hours ) Patient daughter stated she is scheduled for platlets on Sunday but they're concerned she wont be able to make it through the weekend. Patient has been identified by name and birthdate. Duration of symptoms: 2 days Requesting response back: call Home [phone] (home) [phone] (workIno Ellison November 22, 2023 [facility] 11-19-2023 Note [facility] 11-19-2023 History of Present illness Narrative Images from the original note were not included. This visit was conducted as a virtual visit. I have communicated my name and active licensure. The patient's identity and physical location were verified at the time of this visit. Either the patient or their legal outbound call center representative has been informed of the risks and benefits of -- and alternatives to -- treatment through a remote evaluation and consents to proceed with the evaluation remotely. 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 She had reported a few week history of malaise, aches and shortness of breath. CBC found to be deranged on admission including WBC: 31K with 75% peripheral blasts; HGB: 5; PLT: 9. Due to her age and tumor burden in her periphery, bone marrow biopsy was deferred. Peripheral blood was sent for flow cytometry which revealed diagnosis of AML. She was started on cycle 1 of azacitidine and venetoclax on 09/22/23. 7 days of venetoclax were initially planned but given good tolerance, she completed 14 days of venetoclax with cycle 1. Inpatient complications include mild fluid overload requiring intermittent diuresis; pancytopenia requiring blood product support; electrolyte derangements requiring replacement; culture-negative fevers requiring IV antibiotics. Due to her history of bilateral lymph node excision from history of melanoma, she was not a candidate for a PICC line and instead had a Mediport placed in IR on 09/25/23. She has completed cycle 1 of Aza Cornelio and completed 14 days of Cornelio on 10/05/23. Post DC from [facility] she was again admitted to the hospital with possible bacteremia and she has been in and out of the hospital due to panic attacks, fluid around her heart/lungs and blood transfusions. Interval history: She presented virtually today with her daughters. At her last visit we discussed that her NGS showed bcr abl and hence we should be able to target her disease with TKI - she started imatinib on 10/30/23. She is tolerating this much better than Aza/Cornelio - she is experiencing some side effects including leg swelling, hair loss and fatigue. But otherwise compliant and tolerating it well. She lost her this week - unexpectedly - was working in the yard and passed out and passed. She is coping with his loss. Past Medical History: PAST MEDICAL HISTORY Diagnosis Date Hypertension Allergies: ALLERGIES Allergen Reactions [place] Fruits Intolerance Surgical History: PAST SURGICAL HISTORY Procedure Laterality Date BIOPSY/REMOVAL, LYMPH NODE(S) EXCISION OF MALIGNANT LESION, COMPLICATED Family History: FAMILY HISTORY Problem Relation Age of Onset Heart Mother None Father Cancer Other Multiple paternal relatives with cancer including bone cancer and uterine cancer as well as others Leukemia Paternal Uncle Social History: Social History Tobacco Use Smoking status: Former Types: Cigarettes Quit date: 07/03/1962 Years since quittin.4 Smokeless tobacco: Never Substance Use Topics Alcohol use: Yes Drug use: No 12 point ROS other than HPI negative Active Medications: imatinib (GLEEVEC) 400 mg tablet Take 1 tablet (400 mg) by mouth once daily with food and water. metoprolol tartrate, short acting, (LOPRESSOR) 25 mg tablet Take 1 tablet by mouth every 12 hours. acyclovir (ZOVIRAX) 400 mg tablet Take 1 tablet by mouth two times a day. levoFLOXacin (LEVAQUIN) 500 mg tablet Take 1 tablet by mouth daily at 6 am. venetoclax (VENCLEXTA) 100 mg tablet Take 1 tablet (100 mg) by mouth once daily. Take for 14 days every 28 day cycle - or as directed. Take with food and water. posaconazole DR (NOXAFIL) 100 mg tablet Take 3 tablets by mouth once daily. ALPRAZolam (XANAX) 0.5 mg tablet Take 0.5 mg by mouth as needed. Performance Status: 2- Ambulatory and capable of all selfcare; unable to carry out work activities. Up and about > 50% of waking hrs. Physical Exam Constitutional: Appearance: Normal appearance. HENT: Head: Normocephalic and atraumatic. Skin: Findings: Bruising present. Neurological: Mental Status: She is alert and oriented to person, place, and time. Psychiatric: Mood and Affect: Mood normal. Behavior: Behavior normal. Thought Content: Thought content normal. Labs Imaging/ Pathology Reports: Latest Ref Rng & Units 09/29/2023 CBC WBC 3.70 - 11.00 k/uL 1.23 RBC 3.90 - 5.20 m/uL 2.68 Hemoglobin 11.5 - 15.5 g/dL 8.1 Hematocrit 36.0 - 46.0 % 24.1 MCV 80.0 - 100.0 fL 89.9 MCH 26.0 - 34.0 pg 30.2 MCHC 30.5 - 36.0 g/dL 33.6 RDW-CV 11.5 - 15.0 % 19.4 Platelet Count 150 - 400 k/uL 8 MPV 9.0 - 12.7 fL 9.7 Baso% % 0.0 Abs Neut (ANC) 1.45 - 7.50 k/uL 0.49 Abs Lymph 1.00 - 4.00 k/uL 0.60 Abs Angelina <0.87 k/uL 0.01 Abs Eosin <0.46 k/uL 0.01 Abs Baso <0.11 k/uL 0.00 NRBC /100 WBC 0.0 Anisocytosis Present Ovalocytes Few RBC Fragments None Seen Few Platelet Estimate Decreased Latest Ref Rng & Units 09/29/2023 CMP Sodium 136 - 144 mmol/L 134 Potassium 3.7 - 5.1 mmol/L 3.7 Chloride 97 - 105 mmol/L 104 CO2 22 - 30 mmol/L 24 Glucose 74 - 99 mg/dL 110 BUN 7 - 21 mg/dL 11 Creatinine 0.58 - 0.96 mg/dL 0.48 EGFR >=60 mL/min/1.73m 95 Protein, Total 6.3 - 8.0 g/dL 4.9 Albumin 3.9 - 4.9 g/dL 3.0 Calcium 8.5 - 10.2 mg/dL 8.4 Bilirubin, Total 0.2 - 1.3 mg/dL 0.6 AST 13 - 35 U/L 16 ALT 7 - 38 U/L 21 Alkaline Phosphatase 34 - 123 U/L 78 Chromosome Leuk Bld CHROM JAMIE LEUK BLD Collected: 09/20/23 1133 Result status: Final Resulting lab: [facility] Value: Laboratory Accession Number: [id number] Doctor: Shazia Saleh Pathologist: N/A Surgical Pathology No: N/A Clinical diagnosis: Acute Myeloid Leukemia Specimen Type: Leukemic Blood Received Date: 09/20/2023 Number of cells counted: 20 Number of cells analyzed: 20 Number of cells karyotyped: 20 Banding resolution: 400 Banding method: G-banding DIAGNOSIS: 45,XX,add(1)(p31),t(3;3)(q21;q26 .2),add(5)(q12),-7[6]/45,id em,t(9;22)(q34;q11.2)[14] INTERPRETATION: Abnormal, female karyotype Assessment and Plan: // 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 She had reported a few week history of malaise, aches and shortness of breath. CBC found to be deranged on admission including WBC: 31K with 75% peripheral blasts; HGB: 5; PLT: 9. Due to her age and tumor burden in her periphery, bone marrow biopsy was deferred. Peripheral blood was sent for flow cytometry which revealed diagnosis of AML. She was started on cycle 1 of azacitidine and venetoclax on 09/22/23. 14 days of venetoclax with cycle 1. NGS with bcr-abl, TP53 and t(3;3) Cyto with 45,XX,add(1)(p31),t(3;3)(q21;q26 .2),add(5)(q12),-7[6]/45,id em,t(9;22)(q34;q11.2)[14] Today I discussed again that this could mean that she was either in blast phase of CML or this can be AML with bcr-abl translocation I discussed that we have multiple TKIs to target this I need to see her CBC - I do not have access to this today and once counts recover post Aza/Cornelio we should start imatinib 400 qday Avoiding dasatinib due to pleural effusion side effect (current pleural effusion and h/o COPD), nilotinib and ponatinib avoiding due to CV side effects Imatinib will be the safest choice - risks and benefits discussed Her counts had recovered to platelets over 100 however on 11/13/23 her counts dropped to a platelet count of 39 again, she has not needed any blood transfusions since hospital discharge weeks ago Continuing imatinib since 10/30/23 Plan: CBC twice a week with supportive transfusions I discussed that we will follow her labs tomorrow and I will discuss with Dr. Krueger If counts are still not looking good we can consider doing another cycle of Vidaza Continue imatinib RTC in two months virtually // immunocompromised - We discussed that if Hermelinda develops single oral temperature of ?38.3 C (101 F) or a temperature of ?38.0 C (100.4 F) sustained over a one-hour period, she should seek medical attention urgently. Once counts recover stop prophy # Transfusion support: - Transfuse to maintain Hb concentration >8 g/dL. - Transfuse to maintain Platelet concentration >10 K/microL. // Afib with dilated LA Continue metoprolol Will need to restart AC once plt >50 // CAD s/p CABG in 2016 Can restart statin - now off Cornelio I answered Ms. Shen questions. she verbalized understanding the plan, including alternatives. Ms. Shen agreed with these recommendations and plan. I spent a total of 40 minutes on the date of the service which included preparing to see the patient, [id number] patient care, completing clinical documentation, obtaining and/or reviewing separately obtained history, performing a medically appropriate examination, counseling and educating the patient/family/caregiver, ordering medications, tests, or procedures, and communicating with other HCPs (not separately reported). Ana Bill MD Hematology and Medical Oncology, Leukemia Division 11/19/2023 3:34 PM Pager - [phone] cc: Aneta Krueger MD [place] documented in this encounter [facility] 11-19-2023 Note [facility] 11-19-2023 History of Present illness Narrative [facility] Refill Assessment Medication(s): Imatinib Patient's current medication list and adherence status [...] laboratory parameters, disease state markers and outcomes. Stripping Cutter And Winder Assessment Patient confirmed: Yes Med/dose confirmed: Yes Supplies needed: No supplies needed Missed doses: No Estimated days supply on hand: 10 Copay amount: 0 Delivery method: FedEx Signature required: Waived on patient request Delivery address: [facility] [place] [address] Delivery date: 11/22/23 Questions or concerns for the pharmacist?: No Current Outpatient Medications on File Prior to Visit Medication Sig imatinib (GLEEVEC) 400 mg tablet Take 1 tablet (400 mg) by mouth once daily with food and water. metoprolol tartrate, short acting, (LOPRESSOR) 25 mg tablet Take 1 tablet by mouth every 12 hours. acyclovir (ZOVIRAX) 400 mg tablet Take 1 tablet by mouth two times a day. levoFLOXacin (LEVAQUIN) 500 mg tablet Take 1 tablet by mouth daily at 6 am. venetoclax (VENCLEXTA) 100 mg tablet Take 1 tablet (100 mg) by mouth once daily. Take for 14 days every 28 day cycle - or as directed. Take with food and water. posaconazole DR (NOXAFIL) 100 mg tablet Take 3 tablets by mouth once daily. ALPRAZolam (XANAX) 0.5 mg tablet Take 0.5 mg by mouth as needed. No current facility-administered medications on file prior to visit. [facility] Visit Assessment - Hematology/Oncology: Assessment to use: Refill Vaccination Assessment: Date of influenza vaccination reminder: 09/21/2023 Date of most recent vaccination assessment: 09/21/2023 Treatment Plan Information: Treatment Plan Information: Diagnosis: CML, Blast Crisis Previous treatment(s): - Venetoclax + Azacitidine (was suspected AML previously) New treatment regimen: Gleevec (imatinib) Starting Dose/Titration: Take 1 tablet (400 mg) by mouth once daily with food Administration: - Give with a meal and glass of water - Swallow whole - Avoid grapefruit Warnings: include but are not limited to - BMS (occurring within first several months usually) - CV effects (severe HF, LV dysfunction) - Derm reactions - Fluid retention/edema - GI toxicity (take with food to avoid GI irritation) - Hemorrhage - Hepatotoxicity - Nephrotoxicity - TLS Side Effects: include but are not limited to - N/V (mod - high emetic potential doses >400mg) - Peripheral and facial edema, fluid retention - Dermatitis, exfoliation of skin, pruritus, skin rash - Abdominal pain, cramping; anorexia, diarrhea, dyspepsia, flatulence - Elevated ALT, AST, alk phos, bili - Asthenia, fatigue, lethargy, malaise, arthralgia, musculoskeletal pain, headache Monitoring: - CBC (weekly x1 month, biweekly x1 month, then periodically) - LFTs (baseline, then monthly or as clinically indicated) - Renal function (baseline and periodically thereafter) - Serum electrolytes - Ca, phos, K, Na - BM cytogenetics in CML at 6, 12, 18 months - TSH - S/S CHF - Hep B Drug-Drug Interactions: - Imatinib - Alprazolam, Category D, increased serum concentration of Alprazolam, monitor for side effects, consider dose dose reduction - Imatinib - Posaconazole, Category C, may increase serum concentration of Imatinib Baseline: - CBC: Hgb 8.1, Plt 8, ANC 0.49 - BCR/ABL: [place] chromosome identified per 10/18/23 DH note - LFTs: ALT 21, AST 16, T.bili 0.6 - CrCl: 89.91 (Adj BW 62.3 kg) - HBV Panel: negative on 09/20/23 Estimated Start Date Info: Per the discretion of Dr. Bill. Estimated Treatment Duration: Until disease progression or unacceptable toxicity. Gloria Wu documented in this encounter [facility] 10-30-2023 Miscellaneous Notes Discussed with patients daughter and with Dr. Krueger - start taking imatinib today and continue weekly lab checks. Ana Bill MD Myrna Brad Hermelinda daughter: Yuli is calling Ana Bill MD today regarding Caustic Strength Inspector - Other (Medication Received) Yuli calling to inform office that imatinib has been delivered. States she was informed to call office when they received medication to go over instructions. Requesting response back: [phone] (home) [phone] (work) Duration of symptoms: N/A Patient has been identified by name and birthdate. Romana Tripp October 29, 2023 documented in this encounter [facility] 10-19-2023 Note [facility] 10-19-2023 Note [facility] 10-18-2023 Note [facility] 10-18-2023 History of Present illness Narrative Images from the original note were not included. 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 She had reported a few week history of malaise, aches and shortness of breath. CBC found to be deranged on admission including WBC: 31K with 75% peripheral blasts; HGB: 5; PLT: 9. Due to her age and tumor burden in her periphery, bone marrow biopsy was deferred. Peripheral blood was sent for flow cytometry which revealed diagnosis of AML. She was started on cycle 1 of azacitidine and venetoclax on 09/22/23. 7 days of venetoclax were initially planned but given good tolerance, she will complete 14 days of venetoclax with cycle 1. Inpatient complications include mild fluid overload requiring intermittent diuresis; pancytopenia requiring blood product support; electrolyte derangements requiring replacement; culture-negative fevers requiring IV antibiotics. Due to her history of bilateral lymph node excision from history of melanoma, she was not a candidate for a PICC line and instead had a Mediport placed in IR on 09/25/23. She has completed cycle 1 of Aza Cornelio and completed 14 days of Cornelio on 10/05/23. C1D26 of Aza/Cornelio today. She was admitted to the hospital with possible bacteremia and she has been in and out of the hospital due to panic attacks, fluid around her heart/lungs and blood transfusions. She presented virtually today with her daughters. Past Medical History: PAST MEDICAL HISTORY Diagnosis Date Hypertension Allergies: ALLERGIES Allergen Reactions [place] Fruits Intolerance Surgical History: PAST SURGICAL HISTORY Procedure Laterality Date BIOPSY/REMOVAL, LYMPH NODE(S) EXCISION OF MALIGNANT LESION, COMPLICATED Family History: FAMILY HISTORY Problem Relation Age of Onset Heart Mother None Father Cancer Other Multiple paternal relatives with cancer including bone cancer and uterine cancer as well as others Leukemia Paternal Uncle Social History: Social History Tobacco Use Smoking status: Former Types: Cigarettes Quit date: 07/03/1962 Years since quittin.3 Smokeless tobacco: Never Substance Use Topics Alcohol use: Yes Drug use: No 12 point ROS other than HPI negative Active Medications: allopurinol (ZYLOPRIM) 300 mg tablet Take 1 tablet by mouth once daily. metoprolol tartrate, short acting, (LOPRESSOR) 25 mg tablet Take 1 tablet by mouth every 12 hours. acyclovir (ZOVIRAX) 400 mg tablet Take 1 tablet by mouth two times a day. levoFLOXacin (LEVAQUIN) 500 mg tablet Take 1 tablet by mouth daily at 6 am. venetoclax (VENCLEXTA) 100 mg tablet Take 1 tablet (100 mg) by mouth once daily. Take for 14 days every 28 day cycle - or as directed. Take with food and water. posaconazole DR (NOXAFIL) 100 mg tablet Take 3 tablets by mouth once daily. ALPRAZolam (XANAX) 0.5 mg tablet Take 0.5 mg by mouth as needed. Performance Status: 2- Ambulatory and capable of all selfcare; unable to carry out work activities. Up and about > 50% of waking hrs. Physical Exam Constitutional: Appearance: Normal appearance. HENT: Head: Normocephalic and atraumatic. Skin: Findings: Bruising present. Neurological: Mental Status: She is alert and oriented to person, place, and time. Psychiatric: Mood and Affect: Mood normal. Behavior: Behavior normal. Thought Content: Thought content normal. Labs Imaging/ Pathology Reports: Latest Ref Rng & Units 09/29/2023 CBC WBC 3.70 - 11.00 k/uL 1.23 RBC 3.90 - 5.20 m/uL 2.68 Hemoglobin 11.5 - 15.5 g/dL 8.1 Hematocrit 36.0 - 46.0 % 24.1 MCV 80.0 - 100.0 fL 89.9 MCH 26.0 - 34.0 pg 30.2 MCHC 30.5 - 36.0 g/dL 33.6 RDW-CV 11.5 - 15.0 % 19.4 Platelet Count 150 - 400 k/uL 8 MPV 9.0 - 12.7 fL 9.7 Baso% % 0.0 Abs Neut (ANC) 1.45 - 7.50 k/uL 0.49 Abs Lymph 1.00 - 4.00 k/uL 0.60 Abs Angelina <0.87 k/uL 0.01 Abs Eosin <0.46 k/uL 0.01 Abs Baso <0.11 k/uL 0.00 NRBC /100 WBC 0.0 Anisocytosis Present Ovalocytes Few RBC Fragments None Seen Few Platelet Estimate Decreased Latest Ref Rng & Units 09/29/2023 CMP Sodium 136 - 144 mmol/L 134 Potassium 3.7 - 5.1 mmol/L 3.7 Chloride 97 - 105 mmol/L 104 CO2 22 - 30 mmol/L 24 Glucose 74 - 99 mg/dL 110 BUN 7 - 21 mg/dL 11 Creatinine 0.58 - 0.96 mg/dL 0.48 EGFR >=60 mL/min/1.73m 95 Protein, Total 6.3 - 8.0 g/dL 4.9 Albumin 3.9 - 4.9 g/dL 3.0 Calcium 8.5 - 10.2 mg/dL 8.4 Bilirubin, Total 0.2 - 1.3 mg/dL 0.6 AST 13 - 35 U/L 16 ALT 7 - 38 U/L 21 Alkaline Phosphatase 34 - 123 U/L 78 Chromosome Leuk Bld CHROM JAMIE LEUK BLD Collected: 09/20/23 1133 Result status: Final Resulting lab: [facility] Value: Laboratory Accession Number: [id number] Doctor: Shazia Saleh Pathologist: N/A Surgical Pathology No: N/A Clinical diagnosis: Acute Myeloid Leukemia Specimen Type: Leukemic Blood Received Date: 09/20/2023 Number of cells counted: 20 Number of cells analyzed: 20 Number of cells karyotyped: 20 Banding resolution: 400 Banding method: G-banding DIAGNOSIS: 45,XX,add(1)(p31),t(3;3)(q21;q26 .2),add(5)(q12),-7[6]/45,id em,t(9;22)(q34;q11.2)[14] INTERPRETATION: Abnormal, female karyotype Assessment and Plan: // 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 She had reported a few week history of malaise, aches and shortness of breath. CBC found to be deranged on admission including WBC: 31K with 75% peripheral blasts; HGB: 5; PLT: 9. Due to her age and tumor burden in her periphery, bone marrow biopsy was deferred. Peripheral blood was sent for flow cytometry which revealed diagnosis of AML. She was started on cycle 1 of azacitidine and venetoclax on 09/22/23. 14 days of venetoclax with cycle 1. NGS with bcr-abl, TP53 and t(3;3) Cyto with 45,XX,add(1)(p31),t(3;3)(q21;q26 .2),add(5)(q12),-7[6]/45,id em,t(9;22)(q34;q11.2)[14] Today I discussed that this could mean that she was either in blast phase of CML or this can be AML with bcr-abl translocation I discussed that we have multiple TKIs to target this I need to see her CBC - I do not have access to this today and once counts recover post Aza/Cornelio we should start imatinib 400 qday Avoiding dasatinib due to pleural effusion side effect (current pleural effusion and h/o COPD), nilotinib and ponatinib avoiding due to CV side effects Imatinib will be the safest choice - risks and benefits discussed Plan: CBC twice a week with supportive transfusions Imatinib sent to specialty Will discuss care with Dr. Krueger - she will see him Tue No more Aza/Cornelio RTC in one month virtually // immunocompromised - We discussed that if Hermelinda develops single oral temperature of ?38.3 C (101 F) or a temperature of ?38.0 C (100.4 F) sustained over a one-hour period, she should seek medical attention urgently. Once counts recover stop prophy # Transfusion support: - Transfuse to maintain Hb concentration >8 g/dL. - Transfuse to maintain Platelet concentration >10 K/microL. // Afib with dilated LA Continue metoprolol Will need to restart AC once plt >50 // CAD s/p CABG in 2016 Can restart statin - now off Cornelio I answered Ms. Shen questions. she verbalized understanding the plan, including alternatives. Ms. Shen agreed with these recommendations and plan. I spent a total of 60 minutes on the date of the service which included preparing to see the patient, [id number] patient care, completing clinical documentation, obtaining and/or reviewing separately obtained history, performing a medically appropriate examination, counseling and educating the patient/family/caregiver, ordering medications, tests, or procedures, and communicating with other HCPs (not separately reported). Consultation for an opinion for CML/AML. My final recommendations will be communicated back to the requesting physician by way of shared Medical record or letter to requesting physician via US mail. Ana Bill MD Hematology and Medical Oncology, Leukemia Division 10/18/2023 3:27 PM Pager - [phone] cc: Shazia Saleh [id number] [facility] [facility] [address] Ana Rosa Redding MD [address] [place] [address] MD Melody Glass documented in this encounter [facility] 10-12-2023 Note [facility] 10-12-2023 Note [facility] 10-02-2023 Miscellaneous Notes securemessage to Dr Pedraza and Myrna Justice [phone] stone not been scheduled at for a PET scan and we have no order in [facility] for the requested PET scan. Please enter the order into [facility] for scheduling. Thank you in advance. 10-02-[address] Dr [address]raza [address] Ana Bill to secure message. Reply from Dr Ana Bill Yes I'm seeing her on - not sure why she is getting a PET scan though? She has AML, I can look into it tomorrow! 10-03-23 Secure message from Vinh, good morning I sent a telephone encounter [...] ONLY. Is this request for a [facility] [place] PET scan appointment? Yes: Belt Picker: Vinh Randolph Requesting Person (Last Name, First Name): myrna shen Area Code + Phone/Pager: [phone] home , work Who do we call [...] COORD REVIEW [facility] documented in this encounter [facility] 09-28-2023 Note [facility] 09-27-2023 Note [facility] 09-26-2023 Note [facility] 09-26-2023 History of Present illness Narrative [...] laboratory parameters, disease state markers and outcomes. Stripping Cutter And Winder Assessment Patient confirmed: Yes Med/dose confirmed: Yes Supplies needed: No supplies needed Estimated days supply on hand: 2 Copay amount: 0 Payment confirmed: Yes Delivery method: [employer] Signature required: Required ([employer], Medicaid, patient preference) Delivery address: [facility] [address] ATT[address] Jennifer Cervantes [address] [place] [address] Delivery date: 09/27/23 Questions or concerns for the pharmacist?: No [facility] Visit Assessment - Hematology/Oncology: Assessment [...] and water, swallowed whole - No grapefruit, Sabin oranges, or star fruit - If a [...] Denver Calle RPh documented in this encounter [facility] 09-26-2023 Note [facility] 09-25-2023 Note [facility] 09-24-2023 Note [facility] 09-23-2023 Note [facility] 09-22-2023 Note [facility] 09-22-2023 Note HNO ID: [id number] Author: NOTE, INTERFACE, ? Service: ? Author Type: ? Type: Progress Notes Filed: 09/22/2023 03:36 Note Text: Epic Scheduled Downtime: 09/22/2023 1:00:00 AM to 09/22/2023 3:24:00 AM [facility] 09-21-2023 Note [phone] [id number] 09-21-2023 Note [facility] 09-21-2023 Note [facility] 09-20-2023 Note [facility] 09-20-2023 Note [facility] 09-20-2023 Note HNO ID: [id number] Author: ?, ?, ? Service: ? Author Type: ? Type: Progress Notes Filed: 09/21/2023 07:13 Note Text: Patient has been enrolled in a new $81432 yoli for Dx: AML through [employer] active 08/21/2023 to 08/20/2024. [facility] 09-20-2023 Miscellaneous Notes THE [employer] PATIENT ASSISTANCE FORM FOR POSACONAZOLE WAS COMPLETED AND FAXED TO: [phone] FOR CONSIDERATION. RECEIVED CALL FROM INÉS AT [employer] PATIENT PROGRAM ADVISING THE PATIENT HAS BEEN APPROVED FOR ASSISTANCE WITH POSACONAZOLE, AT NO COST TO THE PATIENTS FOR THE DATES: 09/20/2023 - 07/15/2024. CONTACTED THE PATIENT AND INFORMED OF THE APPROVAL, THE [facility] AND PRESCRIBER INFORMED OF THE APPROVAL FOR ASSISTANCE. documented in this encounter [facility] 09-20-2023 Note [facility] 04-27-2023 Note [place] Cardiology - [facility] Subjective Myrna Shen is a 82 y.o. year old female patient being seen for Follow-up Patient Active Problem List Diagnosis Angina pectoris (CMS/HCC) Coronary artery disease of bypass graft of [place] heart with stable angina pectoris (CMS/HCC) Dyspnea [...] it at last visit. She saw a dry chain operator and was treated with prednisone. In October [...] Inhibitors Cough Ascorbic Acid (Vitamin C) Unknown [place] And Derivatives [place] Bioflavonoids Losartan Other reaction(s): hair loss Medications [...] , Rfl: atorva (more content not included)... [facility] 03-02-2023 Note [place] Cardiology - [facility] Subjective Myrna Shen is a 82 y.o. year old female patient being seen for Follow-up Patient Active Problem List Diagnosis Angina pectoris (CMS/HCC) Coronary artery disease of bypass graft of [place] heart with stable angina pectoris (CMS/HCC) Dyspnea [...] it at last visit. She saw a dry chain operator and was treated with prednisone. In October [...] Inhibitors Cough Ascorbic Acid (Vitamin C) Unknown [place] And Derivatives [place] Bioflavonoids Losartan Other reaction(s): hair loss Medications [...] Disp: , R (more content not included)... [facility] 11-23-2022 Note case [facility] 11-14-2022 Note [place] Electrophysiology Consult Note Date of Telehealth Visit: 11/14/22 The patient was notified that using 3rd republican telecommunication application (e.g., [email or web address]) is not HIPPA compliant and may carry some privacy risks. Yes The visit was conducted [id number] with the use of audio and video technology between patient and provider for a virtual [...] medical history of hypertension, CAD s/p CABG 2015 with paroxysmal A-fib postop and has been [...] Allergies: Allergies Allergen Reactions Sal Inhibitors Cough [place] And Derivatives Losartan Other reaction(s): hair loss [...] dizziness, no hea (more content not included)... [facility] 11-02-2022 Note Ordering follow up B MP for lasix increase from 20mg to 40mg Patient called, her symptoms have improved regarding LE edema No GALVAN, SOB. [facility] 11-01-2022 Note - [id number] at le ast 5 for age, gender, [...] she is to report to the ER [facility] 11-01-2022 Note - Blood pressures co ntrolled today, 125/88 -Continue Norvasc 10 mg, Toprol tartrate 25 mg twice daily [facility] 11-01-2022 Note - S/p CABG 2016 -Stable at this time, continue medication aspirin 81 mg, Lipitor 40 mg, as needed nitro which she has not needed [facility] 11-01-2022 Note - HFpEF, NYHA II, [...] like Farxiga, she is allergic to SAL/ARB [facility] 11-01-2022 Note Patient here to disc [...] All other systems reviewed and are negative. [facility] 11-01-2022 Note [place] Electrophysiology Consult Note Reason for visit: Afib, [...] to ER. Previous per Dr. Purcell 09/25/22 HPI Myrna is a 82 yo woman [...] it at last visit. She saw a dry chain operator and was treated with prednisone. Otherwise she has some shortness of breath on exertion and some occasional leg swelling but no chest pain. PMH: Past Medical History: Diagnosis Date Arrhythmia Atrial fibrillation ([facility]) Cancer ([facility]) Coronary artery disease Hyperlipidemia Hypertension PSH: [...] Allergies: Allergies Allergen Reactions Sal Inhibitors Cough [place] And Derivatives Losartan Other reaction(s): hair loss [...] route. predniSONE ( (more content not included)... [facility] 09-25-2022 Note [place] Cardiology - [facility] Subjective Myrna Shen is a 82 y.o. year old female patient being seen for 3 mo follow up Coronary Artery Disease, Hypertension, and Atrial Fibrillation She had labs 2 weeks ago. Denies chest pain, SOB, and bleeding on Eliquis. Patient Active Problem List Diagnosis Angina pectoris (CMS/HCC) Coronary artery disease of bypass graft of [place] heart with stable angina pectoris (CMS/HCC) Dyspnea [...] it at last visit. She saw a dry chain operator and was treated with prednisone. Otherwise she [...] Allergies Allergies Allergen Reactions Sal Inhibitors Cough [place] And Derivatives Losartan Other reaction(s): hair loss [...] tablet as neede (more content not included)... 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 [facility] 06-20-2022 Note [facility] CARDIOLOGY PROGR ESS [...] continues to persist, she was seen by dry chain operator and they believe this could be autoimmune. [...] She did well. She is back to [place] [facility] with no chest pain and no issues. 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 Allergies Allergen Reactions Sal Inhibitors Cough [place] And Derivatives Losartan Other reaction(s): hair loss Medications: Current Outpatient Medications on File Prior to Visit Medication Sig Dispense Refill apixaban (Eliquis) 5 mg tablet Take 1 tablet (5 mg) by mouth in the morning and at bedtime for 7 days. 14 tablet 0 amLODIPine (Norvasc) 10 mg tablet Take 1 tablet by mouth in (more content not included)... 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 Acute myeloid leukemia, without mention of having achieved remission documented in this encounter [place] [facility] 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 Pancytopenia (HCC) Other pancytopenia Atrial fibrillation, unspecified type (HCC) Coronary artery disease without angina pectoris, unspecified vessel or lesion type, unspecified whether [place] or transplanted heart Immunocompromised (HCC) Unspecified immunity deficiency [facility] this encounter [facility] Diagnosis 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 Acute myeloid leukemia, without mention of having achieved remission [facility] Diagnosis 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 Pancytopenia (HCC) Other pancytopenia Immunocompromised (HCC) Unspecified immunity deficiency Coronary artery disease without angina pectoris, unspecified vessel or lesion type, unspecified whether [place] or transplanted heart documented [facility] encounter [facility] Diagnosis 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 Acute myeloid leukemia, without mention of having achieved remission Pancytopenia (HCC) Other pancytopenia Immunocompromised (HCC) Unspecified immunity deficiency documented in this encounter [facility] course Narrative No data available for this section [facility] No data available for this section [facility] No data available for this section [facility] Summary Purpose Family History No Family History Records FoundNo Family History Records Found No data available for this section No Family History Records FoundNo Family History Records FoundNo Family History Records Found Advance Directives Date Activated Date Inactivated Comments 09/21/2023 10:03 AM 09/29/2023 4:40 PM Question Answer Comments DNR Order Discussed With: Patient Date Activated Date Inactivated Comments 09/21/2023 10:03 AM Advance Directive Response Recorded Date/ Time Advance Directives No September 21 7:28pm Additional Source Comments Care Teams (unrecognized sec tion and content) Team Status: Inactive Member Role Status Dates Debbie Villanueva PA-C Attending Provider Active At Risk Paraprofessional Relationship Specialty Start Date End Date Ana Rosa Redding MD [address] [place] [address] PCP - General Family Medicine 07/03/12 At Risk Paraprofessional Relationship Specialty Start Date End Date Ana Rosa Redding MD [address] [place] [address] PCP - General Family Medicine 07/03/12 At Risk Paraprofessional Relationship Specialty Start Date End Date Ana Rosa Redding MD [address] [place] [address] PCP - General Family Medicine 07/03/12 At Risk Paraprofessional Relationship Specialty Start Date End Date Ana Rosa Redding MD [address], [id number] PCP - General Family Medicine 07/03/12 At Risk Paraprofessional Relationship Specialty Start Date End Date Ana Rosa Redding MD [address], [id number] PCP - General Family Medicine 07/03/12 At Risk Paraprofessional Relationship Specialty Start Date End Date Ana Rosa Redding MD [address], [id number] PCP - General Family Medicine 07/03/12 At Risk Paraprofessional Relationship Specialty Start Date End Date Ana Rosa Redding MD [address], [id number] PCP - General Family Medicine 07/03/12 At Risk Paraprofessional Relationship Specialty Start Date End Date Ana Rosa Redding MD [address], [id number] PCP - General Family Medicine 07/03/12 At Risk Paraprofessional Relationship Specialty Start Date End Date Ana Rosa Redding MD [address], [id number] PCP - General Family Medicine 07/03/12 Team Status: Inactive Member Role Status Dates NON STAFF Attending Provider Active Start: [facility] 2023 End: September 18, 2023 Team Status: Inactive Member Role Status Dates Aneta Krueger MD Attending Provider Active St art: November 20, 2023 End: November 20, 2023 At Risk Paraprofessional Relationship Specialty Start Date End Date Ana Rosa Redding MD [address] [place] [address] PCP - General Family Medicine 07/03/12 Goals (unrecognized section and content) Goals may be documented in a n alternate section No data available for this section No data available for this section No data available for this sectionGoals may be documented in an alternate section INFORMATION SOURCE (unrecogn ized section and content) DATE CREATED AUTHOR 11/13/2022 [facility] DATE CREATED AUTHOR AUTHOR'S ORGANIZ ATION 04/29/2023 [facility] DATE CREATED AUTHOR AUTHOR'S ORGANIZ ATION 11/20/2023 [facility] DATE CREATED AUTHOR AUTHOR'S ORGANIZ ATION 11/21/2023 [facility] DATE CREATED AUTHOR AUTHOR'S ORGANIZ ATION 11/25/2023 [facility] Source Comments (unrecognize d section and content) In the event this informatio n is protected by the Federal Confidentiality of Alcohol and Drug Abuse Patient Records regulations: The Federal rules restrict any use of the information to criminally investigate or prosecute any alcohol or drug abuse patient.[facility] the event this information is protected by the Federal Confidentiality of Alcohol and Drug Abuse Patient Records regulations: The Federal rules restrict any use of the information to criminally investigate or prosecute any alcohol or drug abuse patient.[facility] the event this information is protected by the Federal Confidentiality of Alcohol and Drug Abuse Patient Records regulations: The Federal rules restrict any use of the information to criminally investigate or prosecute any alcohol or drug abuse patient.[facility] Center[facility] the event this information is protected by the Federal Confidentiality of Alcohol and Drug Abuse Patient Records regulations: The Federal rules restrict any use of the information to criminally investigate or prosecute any alcohol or drug abuse patient.[facility] the event this information is protected by the Federal Confidentiality of Alcohol and Drug Abuse Patient Records regulations: The Federal rules restrict any use of the information to criminally investigate or prosecute any alcohol or drug abuse patient.[facility] the event this information is protected by the Federal Confidentiality of Alcohol and Drug Abuse Patient Records regulations: The Federal rules restrict any use of the information to criminally investigate or prosecute any alcohol or drug abuse patient.[facility] Center[facility] the event this information is protected by the Federal Confidentiality of Alcohol and Drug Abuse Patient Records regulations: The Federal rules restrict any use of the information to criminally investigate or prosecute any alcohol or drug abuse patient.[facility] Center[facility] the event this information is protected by the Federal Confidentiality of Alcohol and Drug Abuse Patient Records regulations: The Federal rules restrict any use of the information to criminally investigate or prosecute any alcohol or drug abuse patient.[facility] Center[facility] the event this information is protected by the Federal Confidentiality of Alcohol and Drug Abuse Patient Records regulations: The Federal rules restrict any use of the information to criminally investigate or prosecute any alcohol or drug abuse patient.[facility] CenterIn the event this information is protected by the Federal Confidentiality of Alcohol and Drug Abuse Patient Records regulations: The Federal rules restrict any use of the information to criminally investigate or prosecute any alcohol or drug abuse patient.[facility] CenterIn the event this information is protected by the Federal Confidentiality of Alcohol and Drug Abuse Patient Records regulations: The Federal rules restrict any use of the information to criminally investigate or prosecute any alcohol or drug abuse patient.[facility] Center[facility] the event this information is protected by the Federal Confidentiality of Alcohol and Drug Abuse Patient Records regulations: The Federal rules restrict any use of the information to criminally investigate or prosecute any alcohol or drug abuse patient.[facility] Center[facility] the event this information is protected by the Federal Confidentiality of Alcohol and Drug Abuse Patient Records regulations: The Federal rules restrict any use of the information to criminally investigate or prosecute any alcohol or drug abuse patient.[facility] Reason for Visit (unrecogniz ed section and [...] Opened In Error sent on incorrect pt Reason Comments Leukemia Reason Comments Caustic Strength Inspector - Other Medication Rece ived Reason Onset Date Comments SPP Oral Oncology/hematology - Medication Refill 11/19/2023 Imatinib 400mg Reason Comments Established Patient Reason Comments Caustic Strength Inspector - Other 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 t o 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 from 17 to 11 48 hours FOR RECORDS PERTAINING TO PATIENTS WHO ARE [...] BE BASED ON THE PRIMARY CLINICAL RECORDS. [facility] [employer] provides no warranty or guarantee of the accuracy or completeness of information in this document.
[2023-12-21] MEDS: 0.9 % SODIUM CHLORIDE 1,000 ML 999 ML IV (19:22)
[2023-12-21 19:24] LABS: Hemoglobin 7.2 g/dL (12.0-16.0); Mean Corpuscular HGB Conc 34.6 g/dL (29.9-35.2); Mean Corpuscular Hemoglobin 28.9 pg (26.7-34.0); Mean Corpuscular Volume 83.5 fL (81.0-99.0); Mean Platelet Volume 10.2 fL (9.5-13.5); Red Blood Count 2.49 10^6/uL (4.20-5.40); Red Cell Distribution Width 17.2 % (11.0-15.0)
[2023-12-21 19:30] LABS: Hematocrit 20.8 % (36.0-48.0); Platelet Count 18 10^3/uL (150-450); White Blood Count 0.7 10^3/uL (4.0-11.0)
[2023-12-21 19:39] LABS: INR 1.36
[2023-12-21 19:47] LABS: Alanine Aminotransferase 17 U/L (14-59); Albumin Globulin Ratio 0.9; Albumin Level 2.5 g/dL (3.4-5.0); Alkaline Phosphatase 107 U/L (46-116); Anion Gap 10.6; Aspartate Amino Transferase 13 U/L (15-37); BUN Creatinine Ratio 23.8; Bilirubin Total 1.2 mg/dL (0.2-1.0); Calcium 8.3 mg/dL (8.5-10.1); Carbon Dioxide 26.1 mmol/L (21.0-32.0); Chloride 106 mmol/L (98-107); Estimated GFR (African America >60 (>=60); Estimated GFR (Non-African Ame >60 (>=60); Globulin 2.9 g/dL; Glucose 121 mg/dL (74-106); Potassium 3.7 mmol/L (3.5-5.1); Sodium 139 mmol/L (136-145); Total Protein 5.4 g/dL (6.4-8.2)
[2023-12-21 19:50] LABS: Magnesium 1.7 mg/dL (1.8-2.4); Troponin I High Sensitivity 19.4 pg/mL (4.0-51.3)
[2023-12-21 19:57] LABS: Atypical Lymphocytes Abs Man 0.04; Lymphocytes Absolute Manual 0.28 10^3/uL (1.20-3.80); Monocytes Absolute Manual 0.04 10^3/uL (0.30-0.80); Myelocytes Absolute Manual 0.02
[2023-12-21 19:59] LABS: Blast Absolute Manual 0.08
[2023-12-21 20:00] LABS: Anisocytosis 4+; Hypochromasia 3+; Microcytosis 3+; Segmented Neut Absolute Manual 0.22 10^3/uL (1.4-6.5)
[2023-12-21 20:02] LABS: PROCALCITONIN 0.21 ng/mL (0.00-0.50)
[2023-12-21] MEDS: PIPERACILLIN SODIUM/TAZOBACTAM 4.5 GM in 0.9 % SODIUM CHLORIDE 50 ML IV (20:41)
[2023-12-21 20:51] LABS: Bilirubin Urine NEGATIVE (NEGATIVE); Blood Urine TRACE-I (NEGATIVE); Clarity Urine CLEAR (CLEAR); Color Urine YELLOW (YELLOW); Glucose Urine UA NEGATIVE (NEGATIVE); Ketones Urine NEGATIVE (NEGATIVE); Leukocyte Esterase Urine NEGATIVE (NEGATIVE); Nitrite Urine NEGATIVE (NEGATIVE); Protein Urine 100 mg/dL (NEG/TRACE); Specific Gravity Urine 1.025 (1.005-1.025); Urine Microscopic Indicated YES
[2023-12-21 20:58] LABS: Bacteria Urine NONE SEEN #/HPF (NONE SEEN); Crystals Seen? Seen #/HPF (None Seen); Mucus Urine LARGE (NONE SEEN); Squamous Epithelial Cell Urine MODERATE #/LPF (NONE/RARE)
[2023-12-21 20:59] LABS: Amorphous Sediment Urine MODERATE; Cast Seen? SEEN #/LPF (NONE SEEN); Hyaline Casts Urine FEW; Urine Culture Indicated ALREADY ORDERED; White Blood Cell Casts Urine RARE
--- OUTSIDE RECORDS SUMMARY | 2023-12-21 21:38 | XMS_ITS | CCD ---
Author Organization [facility] Care Team Providers Care Licensing Director Name Role Phone PEYTON Villanueva Attending Provider [...] Consulting Unavailable DARBY HAMLIN Primary Care Unavailable SOURIS, DR BYRON Pyle Consulting Unavailable GRECHNY ., EDWIN WHEAT Consulting Unavailevie REDDING ., DR ANA ROSA Arnold Primary Care Unavailable BARAZI, VIVIANE Attending Unavailable BARAZI, VIVIANE Admitting Unavailable MISC, DR BATISTA Admitting Unavailable REDDING ., DR ANA ROSA Arnold Primary Care Unavailable MISC, DR BATISTA Attending Unavailable MISC, DR BATISTA Consulting Unavailable Darby Hamlin. Primary Care Physician LEXI PURCELL Attending Unavailable MOUKARBLEXI FLORES Attending Unavailable BARAZIVIVIANE Attending Unavailable SATNAM ZAPATA Attending Unavailable LEXI PURCELL Attending Unavailable VIVIANE ORTEZ Attending Unavailable Ana Rosa Redding MD Primary Care Provider Ana Rosa Redding MD Primary Care Provider [phone] MD Darby Hamlin Attending Unavailable MD Darby Hamlin Attending Unavailable MD Darby Hamlin Attending Unavailable MD Darby Hamlin Attending Unavailable MD Darby Hamlin Attending Unavailable MD Darby Hamlin Attending Unavailable MD Darby Hamlin Attending Unavailable MD Darby Hamlin Attending Unavailable MD Darby Hamlin Admitting Unavailable MD Darby Hamlin Attending Unavailable MD Darby Hamlin Admitting Unavailable MD Darby Hamlin Attending Unavailable Jose, TRUCK SALES REPRESENTATIVE Aurea L Admitting Unavailable Jose, TRUCK SALES REPRESENTATIVE Aurea L Attending Unavailable MD Darby Hamlin Admitting Unavailable NON STAFF Admitting Unavailable NON STAFF Attending Unavailable Aneta Krueger Attending Unavailable Aneta Krueger Admitting Unavailable NON STAFF Attending Provider Unavailable MD Aneta Krueger Attending Provider [phone] SHAZIA SALEH Referring Unavailable ANA BILL Attending Unavailable ANA ROSA REDDING [facility] Unavailable ANA BILL Attending Unavailable ANA ROSA REDDING [facility] Unavailable ANA BILL Attending Unavailable ANA ROSA REDDING [facility] Unavailable LAMBERTO ECHAVARRIA Attending Unavailable LAMBERTO ECHAVARRIA Admitting Unavailable ANA ROSA REDDING [facility] Unavailable RORY WEST Referring Unavailable Allergies Allergy Classification Reported Allergen(s) Allergy Type Date of Onset Reaction(s) Facility (1 source) lipotropic agents Drug Allergy 3 [facility] Repository (4 sources) Ascorbic Acid; Translations: [ascorbic acid] Drug Allergy Unknown (qualifier value) [facility] (5 sources) Spironolactone; Translations: [spironolactone ] Drug Allergy 3 Eruption of skin (disorder) [facility] (1 source) Angiotensin Converting Enzyme (Sal) Inhibitors; Translations: [SAL INHIBITORS] Propensity to adverse reactions to drug (disorder) 2 [facility] Repository (1 source) Ascorbic Acid; Translations: [ASCORBIC ACID (VITAMIN C)] Drug Allergy 3 [facility] Repository (1 source) [place] bioflavonoids; Translations: [CITRUS BIOFLAVONOIDS] Propensity to adverse reactions to drug (disorder) 3 [facility] Repository (1 source) Losartan; Translations: [LOSARTAN] Drug Allergy 2 [facility] Repository (1 source) CITRUS AND DERIVATIVES; Translations: [CITRUS AND DERIVATIVES] Propensity to adverse reactions to drug (disorder) 2 [facility] Repository (14 sources) [place] fruit; Translations: [CITRUS FRUITS] Food Allergy 2 Intolerance [facility] Medications Current Medications Medication Drug [...] above: Take 1 tablet by whitley th daily at 6 am. metFORMIN hydrochloride 500 [...] oral tablet (12 sources) Azole Antifungal Start: take 3 tablets by mouth once daily posaconazole DR (NOXAFIL) 100 mg tablet Take 3 tablets by mouth once daily. 90 tablet 11 09/20/2023 Active Comment on above: Take 3 tablets by mo [facility] once daily. potassium chloride 20 meq oral tablet (2 sources) Start: 3 Potassium Chloride (Piv-Eotm-Pea M20) 20 mEq oral tablet, extended release [...] disease (20 sources) Atherosclerotic heart disease of [place] coronary artery without angina pectoris; Translations: [Coronary [...] Onset: 03-02-2023 Episodic Other aftercare (1 source) [facility]PC (current) use of aspirin; Translations: [SENIOR LIVING 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] Onset: 11-13-2022 Episodic Other aftercare (1 source) intermediate card tender (current) use of anticoagulants; Translations: [BEHAVIOR THERAPIST CURRNT USE ANTICOAGULANTS] Onset: 11-13-2022 Episodic Other aftercare (1 source) Other [facility] (current) drug therapy; Translations: [OTH SENIOR LIVING CURRENT DRUG THERAPY] Onset: 11-13-2022 Episodic Other [...] Range Facil ity CNPNon 11-22-[address] [facility] [place] 11-20-2023 L Specimen: [id number] Received: 11/20/23 Status: SOUT Req Num: [id number] Spec Type: Impression Subm Dr: Aneta Krueger MD Tissues: PATHPER Procedures: PATHREVIEW Age/ Patient Sex Location Account Attending Physician Myrna Shen 83/F [place] [id number] Aneta Krueger MD SPEC NUM: [id number] RECD: 11/20/23 STATUS: SOUT REQ NUM: [id number] SYBIL: 11/20/[address]: Aneta Krueger MD ENTERED: 11/20/[address]: Maddison Graham SPEC TYPE: Impression DEPT: TERRA Grace ENTERED BY: [id number] RECV BY: [id number] ORDERED: PATHREVIEW ORDERED: PATHREVIEW Pathologist Review Thrombocytopenia Is Noted. No Significant Increase In Schistocytes Or Spherocytes Is Identified. Differential Diagnosis Includes Peripheral Etiology (e.g. ITP, Drug-induced) Vs. Bone Marrow Disorder. Clinical Correlation Is Required. Pancytopenia is noted. Bone marrow pathology should be ruled out. [id number] Specimen: [id number] Received: 11/20/23 Status: RADHA Dempsey Num: [id number] Spec Type: Impression Subm Dr: Aneta Krueger MD Tissues: PATHPER Procedures: PATHREVIEW Patient: Myrna Shen [id number] (Continued) Signed (signature on file) Jesus Guerrier MD 11/20/23 1548 Normal [facility] Consultation Noteon 11-19-19 24 Consultation Note [id number]#1.00TIFF [facility] Consultation Noteon 10-31-19 Consultation Note [id number]#1.00TIFF Normal [facility] Consultation Note [id number]#1.00TIFF Normal [facility] CNPNon 10-29-[address] [facility] Consultation Noteon 10-29-19 Consultation Note [id number]#1.00TIFF Normal [facility] RAD - MISCon 10-29-2023 RAD - MISC [id number]#1.00TIFF Normal [facility] ED Note-Physicianon 10-15-19 ED Note-Physician [id number]#1.00TIFF [facility] Consultation Noteon 10-10-19 Consultation Note [id number]#1.00TIFF [facility] RAD - MISCon 10-10-2023 RAD - MISC [id number]#1.00TIFF [facility] Outside [facility] Correspo ndenceon 10-09-2023 Outside Hospital Correspondence [id number]#1.00TIFF [facility] 10-01-19 [facility] Case Information Case Priority: None Programs: -- Referral Source: Director Of Oncology Referral Reason: Care coordination Case Type: Transition Care Management Risk Score: -- Case Status: Enrolled (October 01, 2023) Date Assigned: October 01, 2023 Assigned By: Yordy James Date Enrolled: October 01, 2023 Assigned Primary Personnel: Yordy James Assigned Secondary Personnel: -- Case Physician: Darby Hamlin MD Ongoing 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 Tate [facility] 10/01 Did you understand your discharge [...] not available. Patient was d/c from [facility] on 09/29/23 with DX of [...] caught sooner. CN did offer appointment with AFTER SCHOOL COUNSELOR and patient declined. CN explained TCM program ad gave CN contact information. Patient states she will call if needs arise. Patient denies any further questions or concerns at this time. NO D/C SUMMARY AVAILABLE, ABOVE INFORMATION OBTAINED FROM PATIENT. Communication Events Date: October 01, 2023 Method: Phone call Type: Outbound Duration (min): 11 Outcome: Case discussion Contact Type: clinical project coordinator Contact Name: Yordy James Notes: TCM#1- see tcm note. Created By: Yordy James Normal [facility] CBC W Auto Differential pane l (Bld)on 09-29-2023 Anisocytosis Ql (Bld) Present Normal [facility] Comment on above: Order Comment: Speci men Type: BLOOD SPECIMENOrdering Facility: [facility] Address: [address] [place] [address] [place] [address] Performed By: #### 5 7021-8 ####[facility] LABCLIA [id number] [place] [address] [place] Basophils (Bld) [#/Vol] 0.00 10*3/uL Normal <0.11 [facility] Comment on above: Order Comment: Speci men Type: BLOOD SPECIMENOrdering Facility: [facility] Address: [address] [place] [address] Performed By: #### 5 7021-8 ####[facility] LABCLIA [id number] [place] [address] [place] Basophils/100 WBC (Bld) 0.0 % Normal [facility] Comment on above: Order Comment: Speci men Type: BLOOD SPECIMENOrdering Facility: [facility] Address: [address] [place] [address] Performed By: #### 5 7021-8 ####[facility] LABIA [id number] [place] [address] [place] BLAST% 9.0 % High <=0.0 [facility] Comment on above: Order Comment: Speci men Type: BLOOD SPECIMENOrdering Facility: [facility] Address: [address] [place] [address] Performed By: #### 5 7021-8 ####[facility] LABCLIA [id number] [place] [address] [place] Dacrocytes LM Ql (Bld) Few Normal [facility] Comment on above: Order Comment: Speci men Type: BLOOD SPECIMENOrdering Facility: [facility] Address: [address] [place] [address] Performed By: #### 5 7021-8 ####[facility] LABIA [id number] [place] [address] [place] Differential cell count method Nom (Bld) Manual Normal [facility] Comment on above: Order Comment: Speci men Type: BLOOD SPECIMENOrdering Facility: [facility] Address: [address] [place] [address] Performed By: #### 5 7021-8 ####[facility] LABCLIA [id number] [place] [address] [place] Eosinophils (Bld) [#/Vol] 0.01 10*3/uL Normal <0.46 [facility] Comment on above: Order Comment: Speci men Type: BLOOD SPECIMENOrdering Facility: [facility] Address: [address] [place] [address] Performed By: #### 5 7021-8 ####[facility] LABCLIA [id number] [place] [address] [place] Eosinophils/100 WBC (Bld) 1.0 % Normal [facility] Comment on above: Order Comment: Speci men Type: BLOOD SPECIMENOrdering Facility: [facility] Address: [address] [place] [address] Performed By: #### 5 7021-8 ####[facility] LABCLIA [id number] [place] [address] [place] Erythrocyte distribution width (RBC) [Ratio] 19.4 % High 11.5-15.0 [facility] Comment on above: Order Comment: Speci men Type: BLOOD SPECIMENOrdering Facility: [facility] Address: [address] [place] [address] Performed By: #### 5 7021-8 ####[facility] LABCLIA [id number] [place] [address] [place] Hematocrit (Bld) [Volume fraction] 24.1 % Low 36.0-46.0 [facility] Comment on above: Order Comment: Speci men Type: BLOOD SPECIMENOrdering Facility: [facility] Address: [address] [place] [address] Performed By: #### 5 7021-8 ####[facility] LABCLIA [id number] [place] [address] [place] Hemoglobin (Bld) [Mass/Vol] 8.1 g/dL Low 11.5-15.5 [facility] Comment on above: Order Comment: Speci men Type: BLOOD SPECIMENOrdering Facility: [facility] Address: [address] [place] [address] Performed By: #### 5 7021-8 ####[facility] LABCLIA [id number] [place] [address] [place] Lymphocytes (Bld) [#/Vol] 0.60 10*3/uL Low 1.00-4.00 [facility] Comment on above: Order Comment: Speci men Type: BLOOD SPECIMENOrdering Facility: [facility] Address: [address] [place] [address] Performed By: #### 5 7021-8 ####[facility] LABCLIA [id number] [place] [address] [place] Lymphocytes/100 WBC (Bld) 49.0 % Normal [facility] Comment on above: Order Comment: Speci men Type: BLOOD SPECIMENOrdering Facility: [facility] Address: [address] [place] [address] Performed By: #### 5 7021-8 ####[facility] LABCLIA [id number] [place] [address] [place] MCH (RBC) [Entitic mass] 30.2 pg Normal 26.0-34.0 [facility] Comment on above: Order Comment: Speci men Type: BLOOD SPECIMENOrdering Facility: [facility] Address: [address] [place] [address] Performed By: #### 5 7021-8 ####[facility] LABCLIA [id number] [place] [address] [place] MCHC (RBC) [Mass/Vol] 33.6 g/dL Normal 30.5-36.0 [facility] Comment on above: Order Comment: Speci men Type: BLOOD SPECIMENOrdering Facility: [facility] Address: [address] [place] [address] Performed By: #### 5 7021-8 ####[facility] LABCLIA [id number] [place] [address] [place] MCV (RBC) [Entitic vol] 89.9 fL Normal 80.0-100.0 [facility] Comment on above: Order Comment: Speci men Type: BLOOD SPECIMENOrdering Facility: [facility] Address: [address] [place] [address] Performed By: #### 5 7021-8 ####[facility] LABCLIA [id number] [place] [address] [place] Monocytes (Bld) [#/Vol] 0.01 10*3/uL Normal <0.87 [facility] Comment on above: Order Comment: Speci men Type: BLOOD SPECIMENOrdering Facility: [facility] Address: [address] [place] [address] Performed By: #### 5 7021-8 ####[facility] LABCLIA [id number] [place] [address] [place] Monocytes/100 WBC (Bld) 1.0 % Normal [facility] Comment on above: Order Comment: Speci men Type: BLOOD SPECIMENOrdering Facility: [facility] Address: [address] [place] [address] Performed By: #### 5 7021-8 ####[facility] LABCLIA [id number] [place] [address] [place] Neutrophils (Bld) [#/Vol] 0.49 10*3/uL Low 1.45-7.50 [facility] Comment on above: Order Comment: Speci men Type: BLOOD SPECIMENOrdering Facility: [facility] Address: [address] [place] [address] Performed By: #### 5 7021-8 ####[facility] LABCLIA [id number] [place] [address] [place] Neutrophils/100 WBC (Bld) 40.0 % Normal [facility] Comment on above: Order Comment: Speci men Type: BLOOD SPECIMENOrdering Facility: [facility] Address: [address] [place] [address] Performed By: #### 5 7021-8 ####[facility] LABCLIA [id number] [place] [address] [place] Nucleated RBC (Bld) [#/Vol] 10*3/uL Normal <0.01 [facility] Comment on above: Order Comment: Speci men Type: BLOOD SPECIMENOrdering Facility: [facility] Address: [address] [place] [address] Performed By: #### 5 7021-8 ####[facility] LABCLIA [id number] [place] [address] [place] Nucleated RBC/100 WBC (Bld) [Ratio] 0.0 /[address] [facility] Comment on above: Order Comment: Speci men Type: BLOOD SPECIMENOrdering Facility: [facility] Address: [address] [place] [address] Performed By: #### 5 7021-8 ####[facility] LABCLIA [id number] [place] [address] [place] Ovalocytes LM Ql (Bld) Few Normal [facility] Comment on above: Order Comment: Speci men Type: BLOOD SPECIMENOrdering Facility: [facility] Address: [address] [place] [address] Performed By: #### 5 7021-8 ####[facility] LABIA [id number] [place] [address] [place] Platelet mean volume (Bld) [Entitic vol] 9.7 fL Normal 9.0-12.7 [facility] Comment on above: Order Comment: Speci men Type: BLOOD SPECIMENOrdering Facility: [facility] Address: [address] [place] [address] Performed By: #### 5 7021-8 ####[facility] LABCLIA [id number] [place] [address] [place] Platelets (Bld) [#/Vol] 8 10*3/uL Critically low 150-400 [facility] Comment on above: Order Comment: Speci men Type: BLOOD SPECIMENOrdering Facility: [facility] Address: [address] [place] [address] Result Comment: Resu lts checked and verified.No clot detected. Performed By: #### 5 7021-8 ####[facility] LABIA [id number] [place] [address] [place] Platelets Estimate (Bld) [#/Vol] Decreased Normal [facility] Comment on above: Order Comment: Speci men Type: BLOOD SPECIMENOrdering Facility: [facility] Address: [address] [place] [address] Performed By: #### 5 7021-8 ####[facility] LABCLIA [id number] [place] [address] [place] RBC (Bld) [#/Vol] 2.68 10*6/uL Low 3.90-5.20 [facility] Comment on above: Order Comment: Speci men Type: BLOOD SPECIMENOrdering Facility: [facility] Address: [address] [place] [address] Performed By: #### 5 7021-8 ####[facility] LABCLIA [id number] [place] [address] [place] RBC FRAGMENTS Few Abnormal None Seen [facility] Comment on above: Order Comment: Speci men Type: BLOOD SPECIMENOrdering Facility: [facility] Address: [address] [place] [address] Performed By: #### 5 7021-8 ####[facility] LABCLIA [id number] [place] [address] [place] RED CELL MORPH Reviewed: see result s of individual morphologies Normal [facility] Comment on above: Order Comment: Speci men Type: BLOOD SPECIMENOrdering Facility: [facility] Address: [address] [place] [address] Performed By: #### 5 7021-8 ####[facility] LABIA [id number] [place] [address] [place] WBC (Bld) [#/Vol] 1.23 10*3/uL Low 3.70-11.00 [facility] Comment on above: Order Comment: Speci men Type: BLOOD SPECIMENOrdering Facility: [facility] Address: [address] [place] [address] Result Comment: No c lot detected. Performed By: #### 5 7021-8 ####[facility] LABIA [id number] [place] [address] [place] CNDSon 09-29-[address] [facility] Comprehensive metabolic 2000 panelon 09-29-2023 Albumin [Mass/Vol] 3.0 g/dL Low 3.9-4.9 [facility] Comment on above: Order Comment: Speci men Type: BLOOD SPECIMENOrdering Facility: [facility] Address: [address] [place] [address] Performed By: #### 2 4323-8, 93456-1 ####[facility] LABIA [id number] [place] [address] [place] ALP [Catalytic activity/Vol] 78 U/L Normal 34-123 [facility] Comment on above: Order Comment: Speci men Type: BLOOD SPECIMENOrdering Facility: [facility] Address: [address] [place] [address] Performed By: #### 2 4323-8, 38113-8 ####[facility] LABIA [id number] [place] [id number] [place] ALT [Catalytic activity/Vol] 21 U/L Normal 7-38 [facility] Comment on above: Order Comment: Speci men Type: BLOOD SPECIMENOrdering Facility: [facility] Address: [address] [place] [address] Performed By: #### 2 4323-8, ####[facility] LABCLIA [id number] [place] [address] [place] Anion gap [Moles/Vol] 6 mmol/L Low 9-18 [facility] Comment on above: Order Comment: Speci men Type: BLOOD SPECIMENOrdering Facility: [facility] Address: [address] [place] [address] Performed By: #### 2 432-8, ####[facility] LABCLIA [id number] [place] [address] [place] AST [Catalytic activity/Vol] 16 U/L Normal 13-35 [facility] Comment on above: Order Comment: Speci men Type: BLOOD SPECIMENOrdering Facility: [facility] Address: [address] [place] [address] Performed By: #### 2 432-8, ####[facility] LABCLIA [id number] [place] [address] [place] Bilirubin [Mass/Vol] 0.6 mg/dL Normal 0.2-1.3 [facility] Comment on above: Order Comment: Speci men Type: BLOOD SPECIMENOrdering Facility: [facility] Address: [address] [place] [address] Performed By: #### 2 4323-8, ####[facility] LABCLIA [id number] [place] [id number] [place] Calcium [Mass/Vol] 8.4 mg/dL Low 8.5-10.2 [facility] Comment on above: Order Comment: Speci men Type: BLOOD SPECIMENOrdering Facility: [facility] Address: [address] [place], [place] [address] Performed By: #### 2 4323-8, ####[facility] LABCLIA [id number] [place] [id number] [place] Chloride [Moles/Vol] 104 mmol/L Normal 97-105 [facility] Comment on above: Order Comment: Speci men Type: BLOOD SPECIMENOrdering Facility: [facility] Address: [address] [place] [address] Performed By: #### 2 4323-8, ####[facility] LABCLIA [id number] [place] [address] [place] CO2 [Moles/Vol] 24 mmol/L Normal 22-30 [facility] Comment on above: Order Comment: Speci men Type: BLOOD SPECIMENOrdering Facility: [facility] Address: [address] [place] [address] Performed By: #### 2 4323-8, ####[facility] LABCLIA [id number] [place] [address] [place] Creatinine [Mass/Vol] 0.48 mg/dL Low 0.58-0.96 [facility] Comment on above: Order Comment: Speci men Type: BLOOD SPECIMENOrdering Facility: [facility] Address: [address] [place] [address] Performed By: #### 2 4323-8, ####[facility] LABCLIA [id number] [place] [address] [place] Creatinine and Glomerular filtration rate.predicted panel (S/P/Bld) 95 mL/min/1.73m??? Normal >=60 [facility] Comment on above: Order Comment: Speci men Type: BLOOD SPECIMENOrdering Facility: [facility] Address: [address] [place] [address] Result Comment: Akiko mated Glomerular Filtration Rate [...] actual GFR. Performed By: #### 2 4323-8, ####[facility] LABCLIA [id number] [place] [address] [place] Glucose [Mass/Vol] 110 mg/dL High 74-99 [facility] Comment on above: Order Comment: Qi reynolds Type: BLOOD SPECIMENOrdering Facility: [facility] Address: [address] [place] [address] Result Comment: The [place] Diabetes Association (ADA) provides guidance for cutoff [...] Standards of Medical Care in Diabetes 2016, [place] [employer] Association. Diabetes Care. 2016.39(Suppl 1). Performed By: #### 2 432-, ####[facility] [id number] [place] [address] [place] Potassium [Moles/Vol] 3.7 mmol/L Normal 3.7-5.1 [facility] Comment on above: Order Comment: Qi reynolds Type: BLOOD SPECIMENOrdering Facility: [facility] Address: [address] [place] [address] Performed By: #### 2 4323-8, ####[facility] [id number] [place] [address] [place] Protein [Mass/Vol] 4.9 g/dL Low 6.3-8.0 [facility] Comment on above: Order Comment: Speci men Type: BLOOD SPECIMENOrdering Facility: [facility] Address: [address] [place] [address] Performed By: #### 2 4323-8, ####[facility] LABCLIA [id number] [place] [address] [place] Sodium [Moles/Vol] 134 mmol/L Low 136-144 [facility] Comment on above: Order Comment: Speci men Type: BLOOD SPECIMENOrdering Facility: [facility] Address: [address] [place] [address] Performed By: #### 2 4323-8, ####[facility] [id number] [place] [address] [place] Urea nitrogen [Mass/Vol] 11 mg/dL Normal 7-21 [facility] Comment on above: Order Comment: Speci men Type: BLOOD SPECIMENOrdering Facility: [facility] Address: [address] [place] [address] Performed By: #### 2 4323-8, ####[facility]CLIA [id number] [place] [address] [place] Magnesium SerPl-mCncon 09-28 Magnesium [Mass/Vol] 2.3 mg/dL Normal 1.7-2.3 [facility] Comment on above: Order Comment: Speci men Type: BLOOD SPECIMENOrdering Facility: [facility] Address: [address] [place] [address] Performed By: #### 2 4323-8, 10848-1 ####[facility] LABCLIA [id number] [place] [id number] [place] NURSING PROGon 09-29-[address] [facility] PT panel Coag (PPP)on 2023 INR Coag (PPP) [Relative time] 1.2 {INR} Normal 0.9-1.3 [facility] Comment on above: Order Comment: Qi reynolds Type: BLOOD SPECIMENOrdering Facility: [facility] Address: [address] [place] [address] Result Comment: Clementine min K Antagonist (VKA) Therapeutic Range: INR 2 to 3 (Target INR of 2.5)Note: For patients treated with VKA drugs, such as warfarin, the [place] [employer] 2012 Guideline recommends [...] of 2.5 to 3.5 (target INR of 3).Eufemiatt GH, et al. Chest 2012, 141:7S-47SNishimura RA, et al. [facility] 2017, 70: 252-289 Performed By: #### 3 4528-0, 09092-9 ####[facility] [id number] [place] [address] [place] PT Coag (PPP) [Time] 12.9 s Normal 9.7-13.0 [facility] Comment on above: Order Comment: Qi reynolds Type: BLOOD SPECIMENOrdering Facility: [facility] Address: [address] [place] [address] Performed By: #### 3 4528-0, 16385-6 ####[facility] [id number] [place] [address] [place] aPTT PPPon 09-29-2023 aPTT Coag (PPP) [Time] 35.9 s High 23.0-32.4 [facility] Comment on above: Order Comment: Speci men Type: BLOOD SPECIMENOrdering Facility: [facility] Address: [address] [place] [address] Performed By: #### 3 4528-0, 02106-7 ####[facility] LABCLIA [id number] [place] [address] [place] CASE MANAGEMon 09-28-[address] [facility] CASE MANAGEM Normal [facility] CBC W Auto Differential pane l (Bld)on 09-28-2023 Basophils (Bld) [#/Vol] 0.00 10*3/uL Normal <0.11 [facility] Comment on above: Order Comment: Speci men Type: BLOOD SPECIMENOrdering Facility: [facility] Address: [address] [place] [address] Performed By: #### 5 7021-8 ####[facility]CLIA [id number] [place] [address] [place] Basophils/100 WBC (Bld) 0.0 % Normal [facility] Comment on above: Order Comment: Speci men Type: BLOOD SPECIMENOrdering Facility: [facility] Address: [address] [place] [address] Performed By: #### 5 7021-8 ####[facility]CLIA [id number] [place] [address] [place] BLAST% 14.5 % High <=0.0 [facility] Comment on above: Order Comment: Speci men Type: BLOOD SPECIMENOrdering Facility: [facility] Address: [address] [place] [address] Performed By: #### 5 7021-8 ####[facility]CLIA [id number] [place] [address] [place] Dacrocytes LM Ql (Bld) Few Normal [facility] Comment on above: Order Comment: Speci men Type: BLOOD SPECIMENOrdering Facility: [facility] Address: [address] [place] [address] Performed By: #### 5 7021-8 ####[facility] LABCLIA [id number] [place] [address] [place] Eosinophils (Bld) [#/Vol] 0.01 10*3/uL Normal <0.46 [facility] Comment on above: Order Comment: Speci men Type: BLOOD SPECIMENOrdering Facility: [facility] Address: [address] [place] [address] Performed By: #### 5 7021-8 ####[facility] LABCLIA [id number] [place] [address] [place] Eosinophils/100 WBC (Bld) 0.6 % Normal [facility] Comment on above: Order Comment: Speci men Type: BLOOD SPECIMENOrdering Facility: [facility] Address: [address] [place] [address] Performed By: #### 5 7021-8 ####[facility]CLIA [id number] [place] [address] [place] Erythrocyte distribution width (RBC) [Ratio] 19.5 % High 11.5-15.0 [facility] Comment on above: Order Comment: Speci men Type: BLOOD SPECIMENOrdering Facility: [facility] Address: [address] [place] [address] Performed By: #### 5 7021-8 ####[facility] LABCLIA [id number] [place] [address] [place] Hematocrit (Bld) [Volume fraction] 25.0 % Low 36.0-46.0 [facility] Comment on above: Order Comment: Speci men Type: BLOOD SPECIMENOrdering Facility: [facility] Address: [address] [place] [address] Performed By: #### 5 7021-8 ####[facility] LABCLIA [id number] [place] [address] [place] Hemoglobin (Bld) [Mass/Vol] 8.3 g/dL Low 11.5-15.5 [facility] Comment on above: Order Comment: Speci men Type: BLOOD SPECIMENOrdering Facility: [facility] Address: [address] [place] [address] Performed By: #### 5 7021-8 ####[facility]CLIA [id number] [place] [address] [place] Lymphocytes (Bld) [#/Vol] 0.46 10*3/uL Low 1.00-4.00 [facility] Comment on above: Order Comment: Speci men Type: BLOOD SPECIMENOrdering Facility: [facility] Address: [address] [place] [address] Performed By: #### 5 7021-8 ####[facility]CLIA [id number] [place] [address] [place] Lymphocytes/100 WBC (Bld) 28.5 % Normal [facility] Comment on above: Order Comment: Speci men Type: BLOOD SPECIMENOrdering Facility: [facility] Address: [address] [place] [address] Performed By: #### 5 7021-8 ####[facility] LABCLIA [id number] [place] [address] [place] MCH (RBC) [Entitic mass] 30.0 pg Normal 26.0-34.0 [facility] Comment on above: Order Comment: Speci men Type: BLOOD SPECIMENOrdering Facility: [facility] Address: [address] [place] [address] Performed By: #### 5 7021-8 ####[facility] LABCLIA [id number] [place] [address] [place] MCHC (RBC) [Mass/Vol] 33.2 g/dL Normal 30.5-36.0 [facility] Comment on above: Order Comment: Speci men Type: BLOOD SPECIMENOrdering Facility: [facility] Address: [address] [place] [address] Performed By: #### 5 7021-8 ####[facility] [id number] [place] [address] [place] MCV (RBC) [Entitic vol] 90.3 fL Normal 80.0-100.0 [facility] Comment on above: Order Comment: Speci men Type: BLOOD SPECIMENOrdering Facility: [facility] Address: [address] [place] [address] Performed By: #### 5 7021-8 ####[facility] [id number] [place] [address] [place] Monocytes (Bld) [#/Vol] 0.03 10*3/uL Normal <0.87 [facility] Comment on above: Order Comment: Speci men Type: BLOOD SPECIMENOrdering Facility: [facility] Address: [address] [place] [address] Performed By: #### 5 7021-8 ####[facility] [id number] [place] [address] [place] Monocytes/100 WBC (Bld) 1.7 % Normal [facility] Comment on above: Order Comment: Speci men Type: BLOOD SPECIMENOrdering Facility: [facility] Address: [address] [place] [address] Performed By: #### 5 7021-8 ####[facility] [id number] [place] [address] [place] Neutrophils (Bld) [#/Vol] 0.88 10*3/uL Low 1.45-7.50 [facility] Comment on above: Order Comment: Speci men Type: BLOOD SPECIMENOrdering Facility: [facility] Address: [address] [place] [address] Performed By: #### 5 7021-8 ####[facility]CLIA [id number] [place] [address] [place] Neutrophils/100 WBC (Bld) 54.7 % Normal [facility] Comment on above: Order Comment: Speci men Type: BLOOD SPECIMENOrdering Facility: [facility] Address: [address] [place] [address] Performed By: #### 5 7021-8 ####[facility]CLIA [id number] [place] [address] [place] Nucleated RBC (Bld) [#/Vol] 10*3/uL Normal <0.01 [facility] Comment on above: Order Comment: Speci men Type: BLOOD SPECIMENOrdering Facility: [facility] Address: [address] [place] [address] Performed By: #### 5 7021-8 ####[facility]CLIA [id number] [place] [address] [place] Nucleated RBC/100 WBC (Bld) [Ratio] 0.0 /[address] [facility] Comment on above: Order Comment: Speci men Type: BLOOD SPECIMENOrdering Facility: [facility] Address: [address] [place] [address] Performed By: #### 5 7021-8 ####[facility]CLIA [id number] [place] [address] [place] Ovalocytes LM Ql (Bld) Few Normal [facility] Comment on above: Order Comment: Speci men Type: BLOOD SPECIMENOrdering Facility: [facility] Address: [address] [place] [address] Performed By: #### 5 7021-8 ####[facility]CLIA [id number] [place] [address] [place] Platelet mean volume (Bld) [Entitic vol] Normal [facility] Comment on above: Order Comment: Speci men Type: BLOOD SPECIMENOrdering Facility: [facility] Address: [address] [place] [address] Result Comment: Unab le to Report. Performed By: #### 5 7021-8 ####[facility]CLIA [id number] [place] [address] [place] Platelets (Bld) [#/Vol] 7 10*3/uL Critically low 150-400 [facility] Comment on above: Order Comment: Speci men Type: BLOOD SPECIMENOrdering Facility: [facility] Address: [address] [place] [address] Result Comment: Plat elet count confirmed by manual review of peripheral blood smear. Results checked and verified.No clot detected. Performed By: #### 5 7021-8 ####[facility] [id number] [place] [address] [place] Platelets Estimate (Bld) [#/Vol] Decreased Normal [facility] Comment on above: Order Comment: Speci men Type: BLOOD SPECIMENOrdering Facility: [facility] Address: [address] [place] [address] Performed By: #### 5 7021-8 ####[facility] [id number] [place] [address] [place] RBC (Bld) [#/Vol] 2.77 10*6/uL Low 3.90-5.20 [facility] Comment on above: Order Comment: Speci men Type: BLOOD SPECIMENOrdering Facility: [facility] Address: [address] [place] [address] Performed By: #### 5 7021-8 ####[facility]CLIA [id number] [place] [address] [place] RBC FRAGMENTS Few Abnormal None Seen [facility] Comment on above: Order Comment: Speci men Type: BLOOD SPECIMENOrdering Facility: [facility] Address: [address] [place] [address] Performed By: #### 5 7021-8 ####[facility]CLIA [id number] [place] [address] [place] RED CELL MORPH Reviewed: see result s of individual morphologies Normal [facility] Comment on above: Order Comment: Speci men Type: BLOOD SPECIMENOrdering Facility: [facility] Address: [address] [place] [address] Performed By: #### 5 7021-8 ####[facility] [id number] [place] [address] [place] WBC (Bld) [#/Vol] 1.60 10*3/uL Low 3.70-11.00 [facility] Comment on above: Order Comment: Speci men Type: BLOOD SPECIMENOrdering Facility: [facility] Address: [address] [place] [address] Result Comment: No c lot detected. Performed By: #### 5 7021-8 ####[facility] [id number] [place] [address] [place] Comprehensive metabolic 2000 panelon 09-28-2023 Albumin [Mass/Vol] 2.9 g/dL Low 3.9-4.9 [facility] Comment on above: Order Comment: Speci men Type: BLOOD SPECIMENOrdering Facility: [facility] Address: [address] [place] [address] Performed By: #### 2 4323-8, 51673-2 ####[facility] [id number] [place] [address] [place] ALP [Catalytic activity/Vol] 75 U/L Normal 34-123 [facility] Comment on above: Order Comment: Speci men Type: BLOOD SPECIMENOrdering Facility: [facility] Address: [address] [place] [address] Performed By: #### 2 4323-8, 52650-5 ####[facility]CLIA [id number] [place] [id number] [place] ALT [Catalytic activity/Vol] 25 U/L Normal 7-38 [facility] Comment on above: Order Comment: Speci men Type: BLOOD SPECIMENOrdering Facility: [facility] Address: [address] [place] [address] Performed By: #### 2 4323-8, ####[facility]CLIA [id number] [place] [address] [place] Anion gap [Moles/Vol] 6 mmol/L Low 9-18 [facility] Comment on above: Order Comment: Speci men Type: BLOOD SPECIMENOrdering Facility: [facility] Address: [address] [place] [address] Performed By: #### 2 4323-8, ####[facility]CLIA [id number] [place] [address] [place] AST [Catalytic activity/Vol] 17 U/L Normal 13-35 [facility] Comment on above: Order Comment: Speci men Type: BLOOD SPECIMENOrdering Facility: [facility] Address: [address] [place] [address] Performed By: #### 2 4323-8, ####[facility]CL[facility] [id number] [place] [address] [place] Bilirubin [Mass/Vol] 0.7 mg/dL Normal 0.2-1.3 [facility] Comment on above: Order Comment: Speci men Type: BLOOD SPECIMENOrdering Facility: [facility] Address: [address] [place] [address] Performed By: #### 2 4323-8, ####[facility]CLIA [id number] [place] [id number] [place] Calcium [Mass/Vol] 8.3 mg/dL Low 8.5-10.2 [facility] Comment on above: Order Comment: Speci men Type: BLOOD SPECIMENOrdering Facility: [facility] Address: [address] [place] [id number] Performed By: #### 2 4323-8, ####[facility]CLIA [id number] [place] [id number] [place] Chloride [Moles/Vol] 103 mmol/L Normal 97-105 [facility] Comment on above: Order Comment: Speci men Type: BLOOD SPECIMENOrdering Facility: [facility] Address: [address] [place] [address] Performed By: #### 2 4323-8, ####[facility]CLIA [id number] [place] [address] [place] CO2 [Moles/Vol] 25 mmol/L Normal 22-30 [facility] Comment on above: Order Comment: Speci men Type: BLOOD SPECIMENOrdering Facility: [facility] Address: [address] [place] [address] Performed By: #### 2 4323-8, ####[facility]CLIA [id number] [place] [address] [place] Creatinine [Mass/Vol] 0.51 mg/dL Low 0.58-0.96 [facility] Comment on above: Order Comment: Speci men Type: BLOOD SPECIMENOrdering Facility: [facility] Address: [address] [place] [address] Performed By: #### 2 4323-8, ####[facility]CLIA [id number] [place] [address] [place] Creatinine and Glomerular filtration rate.predicted panel (S/P/Bld) 94 mL/min/1.73m??? Normal >=60 [facility] Comment on above: Order Comment: Speci men Type: BLOOD SPECIMENOrdering Facility: [facility] Address: [address] [place] [address] Result Comment: Akiko mated Glomerular Filtration Rate [...] actual GFR. Performed By: #### 2 4323-8, ####[facility]CLIA [id number] [place] [address] [place] Glucose [Mass/Vol] 156 mg/dL High 74-99 [facility] Comment on above: Order Comment: Qi reynolds Type: BLOOD SPECIMENOrdering Facility: [facility] Address: [address] [place] [address] Result Comment: The [place] Diabetes Association (ADA) provides guidance for cutoff [...] Standards of Medical Care in Diabetes 2016, [place] Diabetes Association. Diabetes Care. 2016.39(Suppl 1). Performed By: #### 2 4323-8, ####[facility]CLIA [id number] [place] [id number] [place] Potassium [Moles/Vol] 3.4 mmol/L Low 3.7-5.1 [facility] Comment on above: Order Comment: Qi reynolds Type: BLOOD SPECIMENOrdering Facility: [facility] Address: [address] [place] [address] Performed By: #### 2 4323-8, ####[facility]CLIA [id number] [place] [address] [place] Protein [Mass/Vol] 5.0 g/dL Low 6.3-8.0 [facility] Comment on above: Order Comment: Speci men Type: BLOOD SPECIMENOrdering Facility: [facility] Address: [address] [place] [address] Performed By: #### 2 4323-8, ####[facility]CLIA [id number] [place] [address] [place] Sodium [Moles/Vol] 134 mmol/L Low 136-144 [facility] Comment on above: Order Comment: Speci men Type: BLOOD SPECIMENOrdering Facility: [facility] Address: [address] [place] [address] Performed By: #### 2 4323-8, 85465-6 ####[facility]CLIA [id number] [place] [address] [place] Urea nitrogen [Mass/Vol] 12 mg/dL Normal 7-21 [facility] Comment on above: Order Comment: Speci men Type: BLOOD SPECIMENOrdering Facility: [facility] Address: [address] [place] [address] Performed By: #### 2 4323-8, 82259-0 ####[facility]CL[facility] [id number] [place] [address] [place] Magnesium SerPl-mCncon 09-27 Magnesium [Mass/Vol] 2.3 mg/dL Normal 1.7-2.3 [facility] Comment on above: Order Comment: Speci men Type: BLOOD SPECIMENOrdering Facility: [facility] Address: [address] [place] [address] Performed By: #### 2 4323-8, 14158-4 ####[facility]CLIA [id number] [place] [id number] [place] PT panel Coag (PPP)on 2023 INR Coag (PPP) [Relative time] 1.2 {INR} Normal 0.9-1.3 [facility] Comment on above: Order Comment: Qi reynolds Type: BLOOD SPECIMENOrdering Facility: [facility] Address: [address] [place] [address] Result Comment: Clementine min K Antagonist (VKA) Therapeutic Range: INR 2 to 3 (Target INR of 2.5)Note: For patients treated with VKA drugs, such as warfarin, the [place] [employer] 2012 Guideline recommends [...] al. Chest 2012, 141:7S-47SNishimura RA, et al. JAC 2017, 70: 252-289 Performed By: #### 3 4528-0, 77437-8 ####[facility] [id number] [address] [address] [place] PT Coag (PPP) [Time] 12.7 s Normal 9.7-13.0 [facility] Comment on above: Order Comment: Qi reynolds Type: BLOOD SPECIMENOrdering Facility: [facility] Address: [address] [place] [address] Performed By: #### 3 4528-0, 74593-9 ####[facility] [id number] [address] [address] [place] SOCIAL WORKon 09-28-[address] [facility] TYPE + SCREENon 09-28-[address] [facility] Comment on above: Order Comment: Speci men Type: BLOOD SPECIMENOrdering Facility: [facility] Address: [address] [place] [address] Performed By: #### T SCR ####[facility] BLOOD BANKCLIA [id number] [place] [id number] [place] HISTORICAL AB SCR STATUS Positive Abnormal [facility] Comment on above: Order Comment: Speci men Type: BLOOD SPECIMENOrdering Facility: [facility] Address: [address] [place] [address] Performed By: #### T SCR ####[facility] BLOOD BANKCLIA [id number] [place] [address] [place] Rh Nom (Bld) Positive Normal [facility] Comment on above: Order Comment: Speci men Type: BLOOD SPECIMENOrdering Facility: [facility] Address: [address] [place] [address] Performed By: #### T SCR ####[facility] BLOOD BANKCLIA [id number] [place] [address] [place] TYPE AND SCREEN EXPIRATION 10/01/2023 23:[address] [facility] Comment on above: Order Comment: Speci men Type: BLOOD SPECIMENOrdering Facility: [facility] Address: [address] [place] [address] Performed By: #### T SCR ####CC MAIN BLOOD BANKCLIA [id number] [place] [address] [place] aPTT PPPon 09-28-2023 aPTT Coag (PPP) [Time] 35.5 s High 23.0-32.4 [facility] Comment on above: Order Comment: Speci men Type: BLOOD SPECIMENOrdering Facility: [facility] Address: [address] [place] [address] Performed By: #### 3 4528-0, 98054-6 ####[facility] LABCLIA [id number] [id number] [address] [place] CBC W Auto Differential pane l (Bld)on 09-27-2023 Anisocytosis Ql (Bld) Present Normal [facility] Comment on above: Order Comment: Speci men Type: BLOOD SPECIMENOrdering Facility: [facility] Address: [address] [place] [address] Performed By: #### 5 7021-8 ####[facility] LABCLIA [id number] [place] [address] [place] Basophils (Bld) [#/Vol] 0.00 10*3/uL Normal <0.11 [facility] Comment on above: Order Comment: Speci men Type: BLOOD SPECIMENOrdering Facility: [facility] Address: [address] [place] [address] Performed By: #### 5 7021-8 ####[facility]CL[facility] [id number] [place] [address] [place] Basophils/100 WBC (Bld) 0.0 % Normal [facility] Comment on above: Order Comment: Speci men Type: BLOOD SPECIMENOrdering Facility: [facility] Address: [address] [place] [address] Performed By: #### 5 7021-8 ####[facility] [id number] [place] [address] [place] BLAST% 28.0 % High <=0.0 [facility] Comment on above: Order Comment: Speci men Type: BLOOD SPECIMENOrdering Facility: [facility] Address: [address] [place] [address] Performed By: #### 5 7021-8 ####[facility]CL[facility] [id number] [place] [address] [place] Dacrocytes LM Ql (Bld) Few Normal [facility] Comment on above: Order Comment: Speci men Type: BLOOD SPECIMENOrdering Facility: [facility] Address: [address] [place] [address] Performed By: #### 5 7021-8 ####[facility]CL[facility] [id number] [place] [address] [place] Differential cell count method Nom (Bld) Manual Normal [facility] Comment on above: Order Comment: Speci men Type: BLOOD SPECIMENOrdering Facility: [facility] Address: [address] [place] [address] Performed By: #### 5 7021-8 ####[facility] [id number] [place] [address] [place] Eosinophils (Bld) [#/Vol] 0.00 10*3/uL Normal <0.46 [facility] Comment on above: Order Comment: Speci men Type: BLOOD SPECIMENOrdering Facility: [facility] Address: [address] [place] [address] Performed By: #### 5 7021-8 ####[facility]CL[facility] [id number] [place] [address] [place] Eosinophils/100 WBC (Bld) 0.0 % Normal [facility] Comment on above: Order Comment: Speci men Type: BLOOD SPECIMENOrdering Facility: [facility] Address: [address] [place] [address] Performed By: #### 5 7021-8 ####[facility]IA [id number] [place] [address] [place] Erythrocyte distribution width (RBC) [Ratio] 20.0 % High 11.5-15.0 [facility] Comment on above: Order Comment: Speci men Type: BLOOD SPECIMENOrdering Facility: [facility] Address: [address] [place] [address] Performed By: #### 5 7021-8 ####[facility] [id number] [place] [address] [place] Hematocrit (Bld) [Volume fraction] 26.9 % Low 36.0-46.0 [facility] Comment on above: Order Comment: Speci men Type: BLOOD SPECIMENOrdering Facility: [facility] Address: [address] [place] [address] Performed By: #### 5 7021-8 ####[facility] [id number] [place] [address] [place] Hemoglobin (Bld) [Mass/Vol] 8.9 g/dL Low 11.5-15.5 [facility] Comment on above: Order Comment: Speci men Type: BLOOD SPECIMENOrdering Facility: [facility] Address: [address] [place] [address] Performed By: #### 5 7021-8 ####[facility]IA [id number] [place] [address] [place] Lymphocytes (Bld) [#/Vol] 0.53 10*3/uL Low 1.00-4.00 [facility] Comment on above: Order Comment: Speci men Type: BLOOD SPECIMENOrdering Facility: [facility] Address: [address] [place] [address] Performed By: #### 5 7021-8 ####[facility]IA [id number] [place] [address] [place] Lymphocytes/100 WBC (Bld) 27.0 % Normal [facility] Comment on above: Order Comment: Speci men Type: BLOOD SPECIMENOrdering Facility: [facility] Address: [address] [place] [address] Performed By: #### 5 7021-8 ####[facility]IA [id number] [place] [address] [place] MCH (RBC) [Entitic mass] 29.7 pg Normal 26.0-34.0 [facility] Comment on above: Order Comment: Speci men Type: BLOOD SPECIMENOrdering Facility: [facility] Address: [address] [place] [address] Performed By: #### 5 7021-8 ####[facility]CL[facility] [id number] [place] [address] [place] MCHC (RBC) [Mass/Vol] 33.1 g/dL Normal 30.5-36.0 [facility] Comment on above: Order Comment: Speci men Type: BLOOD SPECIMENOrdering Facility: [facility] Address: [address] [place] [address] Performed By: #### 5 7021-8 ####[facility]IA [id number] [place] [address] [place] MCV (RBC) [Entitic vol] 89.7 fL Normal 80.0-100.0 [facility] Comment on above: Order Comment: Speci men Type: BLOOD SPECIMENOrdering Facility: [facility] Address: [address] [place] [address] Performed By: #### 5 7021-8 ####[facility]IA [id number] [place] [address] [place] Monocytes (Bld) [#/Vol] 0.06 10*3/uL Normal <0.87 [facility] Comment on above: Order Comment: Speci men Type: BLOOD SPECIMENOrdering Facility: [facility] Address: [address] [place] [address] Performed By: #### 5 7021-8 ####[facility]IA [id number] [place] [address] [place] Monocytes/100 WBC (Bld) 3.0 % Normal [facility] Comment on above: Order Comment: Speci men Type: BLOOD SPECIMENOrdering Facility: [facility] Address: [address] [place] [address] Performed By: #### 5 7021-8 ####[facility]IA [id number] [place] [address] [place] MYELO% 1.0 % Normal [facility] Comment on above: Order Comment: Speci men Type: BLOOD SPECIMENOrdering Facility: [facility] Address: [address] [place] [address] Performed By: #### 5 7021-8 ####[facility]CL[facility] [id number] [place] [address] [place] Neutrophils (Bld) [#/Vol] 0.81 10*3/uL Low 1.45-7.50 [facility] Comment on above: Order Comment: Speci men Type: BLOOD SPECIMENOrdering Facility: [facility] Address: [address] [place] [address] Performed By: #### 5 7021-8 ####[facility]CL[facility] [id number] [place] [address] [place] Neutrophils/100 WBC (Bld) 41.0 % Normal [facility] Comment on above: Order Comment: Speci men Type: BLOOD SPECIMENOrdering Facility: [facility] Address: [address] [place] [address] Performed By: #### 5 7021-8 ####[facility]CL[facility] [id number] [place] [address] [place] Nucleated RBC (Bld) [#/Vol] 10*3/uL Normal <0.01 [facility] Comment on above: Order Comment: Speci men Type: BLOOD SPECIMENOrdering Facility: [facility] Address: [address] [place] [address] Performed By: #### 5 7021-8 ####[facility]CL[facility] [id number] [place] [address] [place] Nucleated RBC/100 WBC (Bld) [Ratio] 0.0 /[address] [facility] Comment on above: Order Comment: Speci men Type: BLOOD SPECIMENOrdering Facility: [facility] Address: [address] [place] [address] Performed By: #### 5 7021-8 ####[facility]CLIA [id number] [place] [address] [place] Ovalocytes LM Ql (Bld) Few Normal [facility] Comment on above: Order Comment: Speci men Type: BLOOD SPECIMENOrdering Facility: [facility] Address: [address] [place] [address] Performed By: #### 5 7021-8 ####[facility]IA [id number] [place] [address] [place] Platelet mean volume (Bld) [Entitic vol] 10.9 fL Normal 9.0-12.7 [facility] Comment on above: Order Comment: Speci men Type: BLOOD SPECIMENOrdering Facility: [facility] Address: [address] [place] [address] Performed By: #### 5 7021-8 ####[facility]IA [id number] [place] [address] [place] Platelets (Bld) [#/Vol] 12 10*3/uL Low 150-400 [facility] Comment on above: Order Comment: Speci men Type: BLOOD SPECIMENOrdering Facility: [facility] Address: [address] [place] [address] Result Comment: Resu lts checked and verified.No clot detected. Performed By: #### 5 7021-8 ####[facility]CLIA [id number] [place] [address] [place] Platelets Estimate (Bld) [#/Vol] Decreased Normal [facility] Comment on above: Order Comment: Speci men Type: BLOOD SPECIMENOrdering Facility: [facility] Address: [address] [place] [address] Performed By: #### 5 7021-8 ####[facility]IA [id number] [place] [address] [place] Polychromasia LM Ql (Bld) Slight Normal [facility] Comment on above: Order Comment: Speci men Type: BLOOD SPECIMENOrdering Facility: [facility] Address: [address] [place] [address] Performed By: #### 5 7021-8 ####[facility]CL[facility] [id number] [place] [address] [place] RBC (Bld) [#/Vol] 3.00 10*6/uL Low 3.90-5.20 [facility] Comment on above: Order Comment: Speci men Type: BLOOD SPECIMENOrdering Facility: [facility] Address: [address] [place] [address] Performed By: #### 5 7021-8 ####[facility]CLIA [id number] [place] [address] [place] RED CELL MORPH Reviewed: see result s of individual morphologies Normal [facility] Comment on above: Order Comment: Speci men Type: BLOOD SPECIMENOrdering Facility: [facility] Address: [address] [place] [address] Performed By: #### 5 7021-8 ####[facility]CL[facility] [id number] [place] [address] [place] WBC (Bld) [#/Vol] 1.97 10*3/uL Low 3.70-11.00 [facility] Comment on above: Order Comment: Speci men Type: BLOOD SPECIMENOrdering Facility: [facility] Address: [address] [place] [address] Result Comment: No c lot detected. Performed By: #### 5 7021-8 ####[facility]CLIA [id number] [place] [address] [place] WBC Left Shift Ql (Bld) Present Normal [facility] Comment on above: Order Comment: Speci men Type: BLOOD SPECIMENOrdering Facility: [facility] Address: [address] [place] [address] Performed By: #### 5 7021-8 ####[facility]CLIA [id number] [address] [address] [place] Comprehensive metabolic 2000 panelon 09-27-2023 Albumin [Mass/Vol] 2.9 g/dL Low 3.9-4.9 [facility] Comment on above: Order Comment: Speci men Type: BLOOD SPECIMENOrdering Facility: [facility] Address: [address] [place] [address] Performed By: #### 2 4323-8, ####[facility]CL[facility] [id number] [place] [address] [place] ALP [Catalytic activity/Vol] 74 U/L Normal 34-123 [facility] Comment on above: Order Comment: Speci men Type: BLOOD SPECIMENOrdering Facility: [facility] Address: [address] [place] [address] Performed By: #### 2 4323-8, ####[facility]CLIA [id number] [place] [address] [place] ALT [Catalytic activity/Vol] 25 U/L Normal 7-38 [facility] Comment on above: Order Comment: Speci men Type: BLOOD SPECIMENOrdering Facility: [facility] Address: [address] [place] [address] Performed By: #### 2 4323-8, ####[facility]CLIA [id number] [place] [address] [place] Anion gap [Moles/Vol] 7 mmol/L Low 9-18 [facility] Comment on above: Order Comment: Speci men Type: BLOOD SPECIMENOrdering Facility: [facility] Address: [address] [place] [address] Performed By: #### 2 4323-8, ####[facility]CLIA [id number] [place] [address] [place] AST [Catalytic activity/Vol] 19 U/L Normal 13-35 [facility] Comment on above: Order Comment: Speci men Type: BLOOD SPECIMENOrdering Facility: [facility] Address: [address] [place] [address] Performed By: #### 2 4323-8, 00961-7 ####[facility]CLIA [id number] [place] [address] [place] Bilirubin [Mass/Vol] 0.8 mg/dL Normal 0.2-1.3 [facility] Comment on above: Order Comment: Speci men Type: BLOOD SPECIMENOrdering Facility: [facility] Address: [address] [place] [address] Performed By: #### 2 4323-8, ####[facility]CLIA [id number] [place] [address] [place] Calcium [Mass/Vol] 8.6 mg/dL Normal 8.5-10.2 [facility] Comment on above: Order Comment: Speci men Type: BLOOD SPECIMENOrdering Facility: [facility] Address: [address] [place] [address] Performed By: #### 2 4323-8, ####[facility]CLIA [id number] [place] [address] [place] Chloride [Moles/Vol] 105 mmol/L Normal 97-105 [facility] Comment on above: Order Comment: Speci men Type: BLOOD SPECIMENOrdering Facility: [facility] Address: [address] [place] [address] Performed By: #### 2 4323-8, ####[facility]CLIA [id number] [place] [address] [place] CO2 [Moles/Vol] 26 mmol/L Normal 22-30 [facility] Comment on above: Order Comment: Speci men Type: BLOOD SPECIMENOrdering Facility: [facility] Address: [address] [place] [address] Performed By: #### 2 4323-8, ####[facility]CLIA [id number] [place] [address] [place] Creatinine [Mass/Vol] 0.51 mg/dL Low 0.58-0.96 [facility] Comment on above: Order Comment: Speci men Type: BLOOD SPECIMENOrdering Facility: [facility] Address: [address] [place] [address] Performed By: #### 2 43238, ####[facility]IA [id number] [place] [address] [place] Creatinine and Glomerular filtration rate.predicted panel (S/P/Bld) 94 mL/min/1.73m??? Normal >=60 [facility] Comment on above: Order Comment: Speci men Type: BLOOD SPECIMENOrdering Facility: [facility] Address: [address] [place] [address] Result Comment: Akiko mated Glomerular Filtration Rate [...] actual GFR. Performed By: #### 2 4323-8, ####[facility]IA [id number] [place] [address] [place] Glucose [Mass/Vol] 102 mg/dL High 74-99 [facility] Comment on above: Order Comment: Speci men Type: BLOOD SPECIMENOrdering Facility: [facility] Address: [address] [place] [address] Result Comment: The [place] Diabetes Association (ADA) provides guidance for cutoff [...] Standards of Medical Care in Diabetes 2016, [place] Diabetes Association. Diabetes Care. 2016.39(Suppl 1). Performed By: #### 2 4323-02, ####[facility]CLIA [id number] [place] [address] [place] Potassium [Moles/Vol] 3.3 mmol/L Low 3.7-5.1 [facility] Comment on above: Order Comment: Speci men Type: BLOOD SPECIMENOrdering Facility: [facility] Address: [address] [place] [address] Performed By: #### 2 4323-02, ####[facility]IA [id number] [place] [address] [place] Protein [Mass/Vol] 5.2 g/dL Low 6.3-8.0 [facility] Comment on above: Order Comment: Speci men Type: BLOOD SPECIMENOrdering Facility: [facility] Address: [address] [place] [address] Performed By: #### 2 4323-02, ####[facility]IA [id number] [place] [address] [place] Sodium [Moles/Vol] 138 mmol/L Normal 136-144 [facility] Comment on above: Order Comment: Speci men Type: BLOOD SPECIMENOrdering Facility: [facility] Address: [address] [place] [address] Performed By: #### 2 4323-02, ####[facility]CLIA [id number] [place] [id number] [place] Urea nitrogen [Mass/Vol] 10 mg/dL Normal 7-21 [facility] Comment on above: Order Comment: Speci men Type: BLOOD SPECIMENOrdering Facility: [facility] Address: [address] [place] [address] Performed By: #### 2 4323-8, ####[facility]IA [id number] [place] [id number] [place] Magnesium SerPl-mCncon 09-26 Magnesium [Mass/Vol] 2.3 mg/dL Normal 1.7-2.3 [facility] Comment on above: Order Comment: Speci men Type: BLOOD SPECIMENOrdering Facility: [facility] Address: [address] [place] [address] Performed By: #### 2 4323-8, ####[facility] [id number] [place] [id number] [place] NUTRITIONon 09-27-[address] [facility] Outside Hospital Correspo ndenceon 09-27-2023 Outside Hospital Correspondence [id number]#1.00TIFF Normal [facility] SOCIAL WORKon 09-27-[address] [facility] SOCIAL WORK Normal [facility] SOCIAL WORK Normal [facility] XR HIP 1V LTon 09-27-2023 XR HIP 1V LT Normal [facility] XR HIP 1V RTon 09-27-2023 XR HIP 1V RT Normal [facility] CASE MANAGEMon 09-26-[address] [facility] CBC W Auto Differential pane l (Bld)on 09-26-2023 Anisocytosis Ql (Bld) Present Normal [facility] Comment on above: Order Comment: Speci men Type: BLOOD SPECIMENOrdering Facility: [facility] Address: [address] [place] [address] Performed By: #### 5 7021-8 ####[facility]CLIA [id number] [place] [address] [place] Basophils (Bld) [#/Vol] 0.00 10*3/uL Normal <0.11 [facility] Comment on above: Order Comment: Speci men Type: BLOOD SPECIMENOrdering Facility: [facility] Address: [address] [place] [address] Performed By: #### 5 7021-8 ####[facility]CL[facility] [id number] [place] [address] [place] Basophils/100 WBC (Bld) 0.0 % Normal [facility] Comment on above: Order Comment: Speci men Type: BLOOD SPECIMENOrdering Facility: [facility] Address: [address] [place] [address] Performed By: #### 5 7021-8 ####[facility]CLIA [id number] [place] [address] [place] BLAST% 42.0 % High <=0.0 [facility] Comment on above: Order Comment: Speci men Type: BLOOD SPECIMENOrdering Facility: [facility] Address: [address] [place] [address] Performed By: #### 5 7021-8 ####[facility]CLIA [id number] [place] [address] [place] Dacrocytes LM Ql (Bld) Few Normal [facility] Comment on above: Order Comment: Speci men Type: BLOOD SPECIMENOrdering Facility: [facility] Address: [address] [place] [address] Performed By: #### 5 7021-8 ####[facility]CL[facility] [id number] [place] [address] [place] Differential cell count method Nom (Bld) Manual Normal [facility] Comment on above: Order Comment: Speci men Type: BLOOD SPECIMENOrdering Facility: [facility] Address: [address] [place] [address] Performed By: #### 5 7021-8 ####[facility]CL[facility] [id number] [place] [address] [place] Eosinophils (Bld) [#/Vol] 0.03 10*3/uL Normal <0.46 [facility] Comment on above: Order Comment: Speci men Type: BLOOD SPECIMENOrdering Facility: [facility] Address: [address] [place] [address] Performed By: #### 5 7021-8 ####[facility] [id number] [place] [address] [place] Eosinophils/100 WBC (Bld) 1.0 % Normal [facility] Comment on above: Order Comment: Speci men Type: BLOOD SPECIMENOrdering Facility: [facility] Address: [address] [place] [address] Performed By: #### 5 7021-8 ####[facility] [id number] [place] [address] [place] Erythrocyte distribution width (RBC) [Ratio] 20.7 % High 11.5-15.0 [facility] Comment on above: Order Comment: Speci men Type: BLOOD SPECIMENOrdering Facility: [facility] Address: [address] [place] [address] Performed By: #### 5 7021-8 ####[facility] [id number] [place] [address] [place] Hematocrit (Bld) [Volume fraction] 23.8 % Low 36.0-46.0 [facility] Comment on above: Order Comment: Speci men Type: BLOOD SPECIMENOrdering Facility: [facility] Address: [address] [place] [address] Performed By: #### 5 7021-8 ####[facility] [id number] [place] [address] [place] Hemoglobin (Bld) [Mass/Vol] 7.8 g/dL Low 11.5-15.5 [facility] Comment on above: Order Comment: Speci men Type: BLOOD SPECIMENOrdering Facility: [facility] Address: [address] [place] [address] Performed By: #### 5 7021-8 ####[facility] [id number] [place] [address] [place] Lymphocytes (Bld) [#/Vol] 0.53 10*3/uL Low 1.00-4.00 [facility] Comment on above: Order Comment: Speci men Type: BLOOD SPECIMENOrdering Facility: [facility] Address: [address] [place] [address] Performed By: #### 5 7021-8 ####[facility] [id number] [place] [address] [place] Lymphocytes/100 WBC (Bld) 20.0 % Normal [facility] Comment on above: Order Comment: Speci men Type: BLOOD SPECIMENOrdering Facility: [facility] Address: [address] [place] [address] Performed By: #### 5 7021-8 ####[facility] [id number] [place] [address] [place] MCH (RBC) [Entitic mass] 30.7 pg Normal 26.0-34.0 [facility] Comment on above: Order Comment: Speci men Type: BLOOD SPECIMENOrdering Facility: [facility] Address: [address] [place] [address] Performed By: #### 5 7021-8 ####[facility] [id number] [place] [address] [place] MCHC (RBC) [Mass/Vol] 32.8 g/dL Normal 30.5-36.0 [facility] Comment on above: Order Comment: Speci men Type: BLOOD SPECIMENOrdering Facility: [facility] Address: [facility] [place] [address] Performed By: #### 5 7021-8 ####[facility]CLIA [id number] [place] [address] [place] MCV (RBC) [Entitic vol] 93.7 fL Normal 80.0-100.0 [facility] Comment on above: Order Comment: Speci men Type: BLOOD SPECIMENOrdering Facility: [facility] Address: [address] [place] [address] Performed By: #### 5 7021-8 ####[facility]CLIA [id number] [place] [address] [place] Monocytes (Bld) [#/Vol] 0.19 10*3/uL Normal <0.87 [facility] Comment on above: Order Comment: Speci men Type: BLOOD SPECIMENOrdering Facility: [facility] Address: [address] [place] [address] Performed By: #### 5 7021-8 ####[facility]CLIA [id number] [place] [address] [place] Monocytes/100 WBC (Bld) 7.0 % Normal [facility] Comment on above: Order Comment: Speci men Type: BLOOD SPECIMENOrdering Facility: [facility] Address: [address] [place] [address] Performed By: #### 5 7021-8 ####[facility] LABIA [id number] [place] [address] [place] Neutrophils (Bld) [#/Vol] 0.80 10*3/uL Low 1.45-7.50 [facility] Comment on above: Order Comment: Speci men Type: BLOOD SPECIMENOrdering Facility: [facility] Address: [address] [place] [address] Performed By: #### 5 7021-8 ####[facility]CLIA [id number] [place] [address] [place] Neutrophils/100 WBC (Bld) 30.0 % Normal [facility] Comment on above: Order Comment: Speci men Type: BLOOD SPECIMENOrdering Facility: [facility] Address: [address] [place] [address] Performed By: #### 5 7021-8 ####[facility]CL[facility] [id number] [place] [address] [place] Nucleated RBC (Bld) [#/Vol] 10*3/uL Normal <0.01 [facility] Comment on above: Order Comment: Speci men Type: BLOOD SPECIMENOrdering Facility: [facility] Address: [address] [place] [address] Performed By: #### 5 7021-8 ####[facility]CLIA [id number] [place] [address] [place] Nucleated RBC/100 WBC (Bld) [Ratio] 0.0 /[address] [facility] Comment on above: Order Comment: Speci men Type: BLOOD SPECIMENOrdering Facility: [facility] Address: [address] [place] [address] Performed By: #### 5 7021-8 ####[facility]CLIA [id number] [place] [address] [place] Ovalocytes LM Ql (Bld) Few Normal [facility] Comment on above: Order Comment: Speci men Type: BLOOD SPECIMENOrdering Facility: [facility] Address: [address] [place] [address] Performed By: #### 5 7021-8 ####[facility]CLIA [id number] [place] [address] [place] Platelet mean volume (Bld) [Entitic vol] 12.1 fL Normal 9.0-12.7 [facility] Comment on above: Order Comment: Speci men Type: BLOOD SPECIMENOrdering Facility: [facility] Address: [address] [place] [address] Performed By: #### 5 7021-8 ####[facility]CL[facility] [id number] [place] [address] [place] Platelets (Bld) [#/Vol] 22 10*3/uL Low 150-400 [facility] Comment on above: Order Comment: Speci men Type: BLOOD SPECIMENOrdering Facility: [facility] Address: [address] [place] [address] Result Comment: Resu lts checked and verified.No clot detected. Performed By: #### 5 7021-8 ####[facility]CL[facility] [id number] [place] [address] [place] Platelets Estimate (Bld) [#/Vol] Decreased Normal [facility] Comment on above: Order Comment: Speci men Type: BLOOD SPECIMENOrdering Facility: [facility] Address: [address] [place] [address] Performed By: #### 5 7021-8 ####[facility]CLIA [id number] [place] [address] [place] Polychromasia LM Ql (Bld) Slight Normal [facility] Comment on above: Order Comment: Speci men Type: BLOOD SPECIMENOrdering Facility: [facility] Address: [address] [place] [address] Performed By: #### 5 7021-8 ####[facility]CL[facility] [id number] [place] [address] [place] RBC (Bld) [#/Vol] 2.54 10*6/uL Low 3.90-5.20 [facility] Comment on above: Order Comment: Speci men Type: BLOOD SPECIMENOrdering Facility: [facility] Address: [address] [place], [place] [address] Performed By: #### 5 7021-8 ####[facility]CLIA [id number] [address] [address] [place] RED CELL MORPH Reviewed: see result s of individual morphologies Normal [facility] Comment on above: Order Comment: Speci men Type: BLOOD SPECIMENOrdering Facility: [facility] Address: [address] [place] [address] Performed By: #### 5 7021-8 ####[facility]IA [id number] [address] [address] [place] WBC (Bld) [#/Vol] 2.65 10*3/uL Low 3.70-11.00 [facility] Comment on above: Order Comment: Speci men Type: BLOOD SPECIMENOrdering Facility: [facility] Address: [address] [place] [address] Performed By: #### 5 7021-8 ####[facility]IA [id number] [address] [address] [place] CONSULTon 09-26-[address] [facility] Comprehensive metabolic 2000 panelon 09-26-2023 Albumin [Mass/Vol] 3.0 g/dL Low 3.9-4.9 [facility] Comment on above: Order Comment: Speci men Type: BLOOD SPECIMENOrdering Facility: [facility] Address: [address] [place], [place] [address] Performed By: #### 2 4323-8, 18106-9, 2777-1, 3084-1 ####[facility] LABIA [id number] [place] [address] [place] ALP [Catalytic activity/Vol] 71 U/L Normal 34-123 [facility] Comment on above: Order Comment: Speci men Type: BLOOD SPECIMENOrdering Facility: [facility] Address: [address] [place] [address] Performed By: #### 2 4323-8, 02513-3, 2776-1, 3084-1 ####[facility]CL[facility] [id number] [address] [address] [place] ALT [Catalytic activity/Vol] 28 U/L Normal 7-38 [facility] Comment on above: Order Comment: Speci men Type: BLOOD SPECIMENOrdering Facility: [facility] Address: [address] [place] [address] Performed By: #### 2 4323-8, 16422-3, 2776-, 3084-1 ####[facility]CLIA [id number] [place] [address] [place] Anion gap [Moles/Vol] 9 mmol/L Normal 9-18 [facility] Comment on above: Order Comment: Speci men Type: BLOOD SPECIMENOrdering Facility: [facility] Address: [address] [place] [address] Performed By: #### 2 4323-8, 84746-8, 2776-, 3084-1 ####[facility]IA [id number] [place] [address] [place] AST [Catalytic activity/Vol] 26 U/L Normal 13-35 [facility] Comment on above: Order Comment: Speci men Type: BLOOD SPECIMENOrdering Facility: [facility] Address: [address] [place] [address] Performed By: #### 2 4323-8, 51477-2, 2776-, 3084-1 ####[facility]IA [id number] [address] [address] [place] Bilirubin [Mass/Vol] 0.6 mg/dL Normal 0.2-1.3 [facility] Comment on above: Order Comment: Speci men Type: BLOOD SPECIMENOrdering Facility: [facility] Address: [address] [place] [address] Performed By: #### 2 4323-8, , 2776-, 3084- ####[facility]CL[facility] [id number] [address] [address] [place] Calcium [Mass/Vol] 8.2 mg/dL Low 8.5-10.2 [facility] Comment on above: Order Comment: Speci men Type: BLOOD SPECIMENOrdering Facility: [facility] Address: [address] [place], [place] [address] Performed By: #### 2 4323-8, , 2776-, 3084-1 ####[facility]IA [id number] [address] [address] [place] Chloride [Moles/Vol] 105 mmol/L Normal 97-105 [facility] Comment on above: Order Comment: Speci men Type: BLOOD SPECIMENOrdering Facility: [facility] Address: [address] [place], [place] [address] Performed By: #### 2 4323-8, , 2776-, 3084-1 ####[facility]IA [id number] [address] [address] [place] CO2 [Moles/Vol] 25 mmol/L Normal 22-30 [facility] Comment on above: Order Comment: Speci men Type: BLOOD SPECIMENOrdering Facility: [facility] Address: [address] [place] [address] Performed By: #### 2 4323-8, 91415-6, 2776-07, 3084- ####[facility] [id number] [address] [address] [place] Creatinine [Mass/Vol] 0.52 mg/dL Low 0.58-0.96 [facility] Comment on above: Order Comment: Speci men Type: BLOOD SPECIMENOrdering Facility: [facility] Address: [address] [place] [address] Performed By: #### 2 4323-8, , 2776-07, 3083-07 ####[facility]IA [id number] [place] [address] [place] Creatinine and Glomerular filtration rate.predicted panel (S/P/Bld) 93 mL/min/1.73m??? Normal >=60 [facility] Comment on above: Order Comment: Qi reynolds Type: BLOOD SPECIMENOrdering Facility: [facility] Address: [address] [place] [address] Result Comment: Akiko mated Glomerular Filtration Rate [...] actual GFR. Performed By: #### 2 4323-8, 23469-7, 2776-07, 3083- ####[facility]IA [id number] [place] [address] [place] Glucose [Mass/Vol] 118 mg/dL High 74-99 [facility] Comment on above: Order Comment: Qi reynolds Type: BLOOD SPECIMENOrdering Facility: [facility] Address: [address] [place] [address] Result Comment: The [place] [employer] Association (ADA) provides guidance for cutoff [...] Standards of Medical Care in Diabetes 2016, [place] [employer]. Diabetes Care. 2016.39(Suppl 1). Performed By: #### 2 4323-8, , 2776-07, 3083- ####[facility]CLIA [id number] [address] [address] [place] Potassium [Moles/Vol] 3.6 mmol/L Low 3.7-5.1 [facility] Comment on above: Order Comment: Speci men Type: BLOOD SPECIMENOrdering Facility: [facility] Address: [address] [place], [place] [address] Performed By: #### 2 4323-8, , 2776-07, 3084-1 ####[facility]IA [id number] [place] [address] [place] Protein [Mass/Vol] 5.1 g/dL Low 6.3-8.0 [facility] Comment on above: Order Comment: Speci men Type: BLOOD SPECIMENOrdering Facility: [facility] Address: [address] [place] [address] Performed By: #### 2 432-8, , 2776-07, 308- ####[facility]IA [id number] [place] [address] [place] Sodium [Moles/Vol] 139 mmol/L Normal 136-144 [facility] Comment on above: Order Comment: Speci men Type: BLOOD SPECIMENOrdering Facility: [facility] Address: [address] [place] [address] Performed By: #### 2 4323-8, , 2776-07, 3084-1 ####[facility] LABIA [id number] [place] [address] [place] Urea nitrogen [Mass/Vol] 11 mg/dL Normal 7-21 [facility] Comment on above: Order Comment: Speci men Type: BLOOD SPECIMENOrdering Facility: [facility] Address: [address] [place], [place] [address] Performed By: #### 2 4323-8, 01105-7, 2777-1, 3084-1 ####[facility]CLIA [id number] [place] [address] [place] Fibrinogen PPP-mCncon 2023 Fibrinogen Coag (PPP) [Mass/Vol] 522 mg/dL High 200-400 [facility] Comment on above: Order Comment: Qi reynolds Type: BLOOD SPECIMENOrdering Facility: [facility] Address: [address] [place] [address] Result Comment: Resu lt rechecked.Sample checked for clot. Performed By: #### 3 255-7, 69891-9, 26534-7 ####[facility]CLIA [id number] [place] [address] [place] Magnesium SerPl-[facility] 09-25 Magnesium [Mass/Vol] 2.3 mg/dL Normal 1.7-2.3 [facility] Comment on above: Order Comment: Qi reynolds Type: BLOOD SPECIMENOrdering Facility: [facility] Address: [address] [place] [address] Performed By: #### 2 4323-8, 99328-9, 2777-1, 3084-1 ####[facility]IA [id number] [place] [address] [place] PT panel Coag (PPP)on 2023 INR Coag (PPP) [Relative time] 1.2 {INR} Normal 0.9-1.3 [facility] Comment on above: Order Comment: Qi reynolds Type: BLOOD SPECIMENOrdering Facility: [facility] Address: [address] [place] [address] Result Comment: Clementine min K Antagonist (VKA) Therapeutic Range: INR 2 to 3 (Target INR of 2.5)Note: For patients treated with VKA drugs, such as warfarin, the [place] [employer] 2012 Guideline recommends [...] al. Chest 2012, 141:7S-47SNishimura RA, et al. [facility] 2017, 70: 252-289 Performed By: #### 3 255-7, 54905-3, 87278-2 ####[facility]IA [id number] [place] [address] [place] PT Coag (PPP) [Time] 13.0 s Normal 9.7-13.0 [facility] Comment on above: Order Comment: Speci men Type: BLOOD SPECIMENOrdering Facility: [facility] Address: [address] [place] [address] Performed By: #### 3 255-7, 40642-4, 56464-4 ####[facility] [id number] [place] [address] [place] Phosphate SerPl-ncon 09-25 Phosphate [Mass/Vol] 2.0 mg/dL Low 2.7-4.8 [facility] Comment on above: Order Comment: Qi reynolds Type: BLOOD SPECIMENOrdering Facility: [facility] Address: [address] [place] [address] Performed By: #### 2 4323-8, 40166-4, 2777-1, 3084-1 ####[facility] [id number] [place] [address] [place] THERAPY NTon 09-26-[address] [facility] Urate SerPl-mCncon Urate [Mass/Vol] 1.5 mg/dL Low 2.5-6.6 [facility] Comment on above: Order Comment: Speci men Type: BLOOD SPECIMENOrdering Facility: [facility] Address: [address] [place] [address] Performed By: #### 2 4323-8, 36962-3, 2777-1, 3084-1 ####[facility]CLIA [id number] [place] [address] [place] aPTT PPPon 09-26-2023 aPTT Coag (PPP) [Time] 34.5 s High 23.0-32.4 [facility] Comment on above: Order Comment: Speci men Type: BLOOD SPECIMENOrdering Facility: [facility] Address: [address] [place] [address] Performed By: #### 3 255-7, 25320-8, 93032-0 ####[facility]CLIA [id number] [place] [address] [place] BRIEF OP NOTon 09-25-[address] [facility] CASE MANAGEMon 09-25-[address] [facility] CBC W Auto Differential pane l (Bld)on 09-25-2023 Anisocytosis Ql (Bld) Present Normal [facility] Comment on above: Order Comment: Speci men Type: BLOOD SPECIMENOrdering Facility: [facility] Address: [address] [place] [address] Performed By: #### 5 7021-8 ####[facility]IA [id number] [place] [address] [place] Basophils (Bld) [#/Vol] 0.00 10*3/uL Normal <0.11 [facility] Comment on above: Order Comment: Speci men Type: BLOOD SPECIMENOrdering Facility: [facility] Address: [address] [place] [address] Performed By: #### 5 7021-8 ####[facility]CLIA [id number] [place] [address] [place] Basophils/100 WBC (Bld) 0.0 % Normal [facility] Comment on above: Order Comment: Speci men Type: BLOOD SPECIMENOrdering Facility: [facility] Address: [address] [place] [address] Performed By: #### 5 7021-8 ####[facility]CL[facility] [id number] [place] [address] [place] BLAST% 33.9 % High <=0.0 [facility] Comment on above: Order Comment: Speci men Type: BLOOD SPECIMENOrdering Facility: [facility] Address: [address] [place] [address] Performed By: #### 5 7021-8 ####[facility]CLIA [id number] [place] [address] [place] Dacrocytes LM Ql (Bld) Few Normal [facility] Comment on above: Order Comment: Speci men Type: BLOOD SPECIMENOrdering Facility: [facility] Address: [address] [place] [address] Performed By: #### 5 7021-8 ####[facility]CLIA [id number] [place] [address] [place] Differential cell count method Nom (Bld) Manual Normal [facility] Comment on above: Order Comment: Speci men Type: BLOOD SPECIMENOrdering Facility: [facility] Address: [address] [place] [address] Performed By: #### 5 7021-8 ####[facility]CL[facility] [id number] [place] [address] [place] Eosinophils (Bld) [#/Vol] 0.00 10*3/uL Normal <0.46 [facility] Comment on above: Order Comment: Speci men Type: BLOOD SPECIMENOrdering Facility: [facility] Address: [address] [place] [address] Performed By: #### 5 7021-8 ####[facility]CL[facility] [id number] [place] [address] [place] Eosinophils/100 WBC (Bld) 0.0 % Normal [facility] Comment on above: Order Comment: Speci men Type: BLOOD SPECIMENOrdering Facility: [facility] Address: [address] [place] [address] Performed By: #### 5 7021-8 ####[facility]CLIA [id number] [place] [address] [place] Erythrocyte distribution width (RBC) [Ratio] 20.9 % High 11.5-15.0 [facility] Comment on above: Order Comment: Speci men Type: BLOOD SPECIMENOrdering Facility: [facility] Address: [address] [place] [address] Performed By: #### 5 7021-8 ####[facility] [id number] [place] [address] [place] Hematocrit (Bld) [Volume fraction] 23.5 % Low 36.0-46.0 [facility] Comment on above: Order Comment: Speci men Type: BLOOD SPECIMENOrdering Facility: [facility] Address: [address] [place] [address] Performed By: #### 5 7021-8 ####[facility] [id number] [place] [address] [place] Hemoglobin (Bld) [Mass/Vol] 7.8 g/dL Low 11.5-15.5 [facility] Comment on above: Order Comment: Speci men Type: BLOOD SPECIMENOrdering Facility: [facility] Address: [address] [place] [address] Performed By: #### 5 7021-8 ####[facility] [id number] [place] [address] [place] Lymphocytes (Bld) [#/Vol] 0.83 10*3/uL Low 1.00-4.00 [facility] Comment on above: Order Comment: Speci men Type: BLOOD SPECIMENOrdering Facility: [facility] Address: [address] [place] [address] Performed By: #### 5 7021-8 ####[facility] [id number] [place] [address] [place] Lymphocytes/100 WBC (Bld) 22.3 % Normal [facility] Comment on above: Order Comment: Speci men Type: BLOOD SPECIMENOrdering Facility: [facility] Address: [address] [place] [address] Performed By: #### 5 7021-8 ####[facility] [id number] [place] [address] [place] MCH (RBC) [Entitic mass] 31.0 pg Normal 26.0-34.0 [facility] Comment on above: Order Comment: Speci men Type: BLOOD SPECIMENOrdering Facility: [facility] Address: [address] [place] [address] Performed By: #### 5 7021-8 ####[facility] [id number] [place] [address] [place] MCHC (RBC) [Mass/Vol] 33.2 g/dL Normal 30.5-36.0 [facility] Comment on above: Order Comment: Speci men Type: BLOOD SPECIMENOrdering Facility: [facility] Address: [address] [place] [address] Performed By: #### 5 7021-8 ####[facility] [id number] [place] [address] [place] MCV (RBC) [Entitic vol] 93.3 fL Normal 80.0-100.0 [facility] Comment on above: Order Comment: Speci men Type: BLOOD SPECIMENOrdering Facility: [facility] Address: [address] [place] [address] Performed By: #### 5 7021-8 ####[facility] [id number] [place] [address] [place] Monocytes (Bld) [#/Vol] 0.17 10*3/uL Normal <0.87 [facility] Comment on above: Order Comment: Speci men Type: BLOOD SPECIMENOrdering Facility: [facility] Address: [address] [place] [address] Performed By: #### 5 7021-8 ####[facility] [id number] [place] [address] [place] Monocytes/100 WBC (Bld) 4.5 % Normal [facility] Comment on above: Order Comment: Speci men Type: BLOOD SPECIMENOrdering Facility: [facility] Address: [address] [place] [address] Performed By: #### 5 7021-8 ####[facility] [id number] [place] [address] [place] Neutrophils (Bld) [#/Vol] 1.46 10*3/uL Normal 1.45-7.50 [facility] Comment on above: Order Comment: Speci men Type: BLOOD SPECIMENOrdering Facility: [facility] Address: [address] [place] [address] Performed By: #### 5 7021-8 ####[facility] [id number] [place] [address] [place] Neutrophils/100 WBC (Bld) 39.3 % Normal [facility] Comment on above: Order Comment: Speci men Type: BLOOD SPECIMENOrdering Facility: [facility] Address: [address] [place] [address] Performed By: #### 5 7021-8 ####[facility] [id number] [place] [address] [place] Nucleated RBC (Bld) [#/Vol] 0.03 10*3/uL High <0.01 [facility] Comment on above: Order Comment: Speci men Type: BLOOD SPECIMENOrdering Facility: [facility] Address: [address] [place] [address] Performed By: #### 5 7021-8 ####[facility] [id number] [place] [address] [place] Nucleated RBC/100 WBC (Bld) [Ratio] 0.9 /[address] [facility] Comment on above: Order Comment: Speci men Type: BLOOD SPECIMENOrdering Facility: [facility] Address: [address] [place] [address] Performed By: #### 5 7021-8 ####[facility] [id number] [place] [address] [place] Ovalocytes LM Ql (Bld) Few Normal [facility] Comment on above: Order Comment: Speci men Type: BLOOD SPECIMENOrdering Facility: [facility] Address: [address] [place] [address] Performed By: #### 5 7021-8 ####[facility] LABIA [id number] [place] [address] [place] Platelet mean volume (Bld) [Entitic vol] 12.1 fL Normal 9.0-12.7 [facility] Comment on above: Order Comment: Speci men Type: BLOOD SPECIMENOrdering Facility: [facility] Address: [address] [place] [address] Performed By: #### 5 7021-8 ####[facility]CLIA [id number] [place] [address] [place] Platelets (Bld) [#/Vol] 28 10*3/uL Low 150-400 [facility] Comment on above: Order Comment: Speci men Type: BLOOD SPECIMENOrdering Facility: [facility] Address: [address] [place] [address] Result Comment: Resu lts checked and verified.No clot detected. Performed By: #### 5 7021-8 ####[facility]CLIA [id number] [place] [address] [place] Platelets Estimate (Bld) [#/Vol] Decreased Normal [facility] Comment on above: Order Comment: Speci men Type: BLOOD SPECIMENOrdering Facility: [facility] [facility] Address: [address] [place] [address] Performed By: #### 5 7021-8 ####[facility] [id number] [place] [address] [place] RBC (Bld) [#/Vol] 2.52 10*6/uL Low 3.90-5.20 [facility] Comment on above: Order Comment: Speci men Type: BLOOD SPECIMENOrdering Facility: [facility] Address: [address] [place] [address] Performed By: #### 5 7021-8 ####[facility] [id number] [place] [address] [place] RBC FRAGMENTS Few Abnormal None Seen [facility] Comment on above: Order Comment: Speci men Type: BLOOD SPECIMENOrdering Facility: [facility] Address: [address] [place] [address] Performed By: #### 5 7021-8 ####[facility] [id number] [place] [address] [place] RED CELL MORPH Reviewed: see result s of individual morphologies Normal [facility] Comment on above: Order Comment: Speci men Type: BLOOD SPECIMENOrdering Facility: [facility] Address: [address] [place] [address] Performed By: #### 5 7021-8 ####[facility]CLIA [id number] [place] [address] [place] WBC (Bld) [#/Vol] 3.71 10*3/uL Normal 3.70-11.00 [facility] Comment on above: Order Comment: Speci men Type: BLOOD SPECIMENOrdering Facility: [facility] Address: [address] [place] [address] Performed By: #### 5 7021-8 ####[facility]CL[facility] [id number] [place] [address] [place] Comprehensive metabolic 2000 panelon 09-25-2023 Albumin [Mass/Vol] 3.0 g/dL Low 3.9-4.9 [facility] Comment on above: Order Comment: Speci men Type: BLOOD SPECIMENOrdering Facility: [facility] Address: [address] [place] [address] Performed By: #### 2 4323-8, 33923-1, 2777-1, 3084-1 ####[facility] [id number] [place] [address] [place] ALP [Catalytic activity/Vol] 72 U/L Normal 34-123 [facility] Comment on above: Order Comment: Speci men Type: BLOOD SPECIMENOrdering Facility: [facility] Address: [address] [place] [address] Performed By: #### 2 4323-8, 03610-9, 2777-1, 3084-1 ####[facility] [id number] [place] [address] [place] ALT [Catalytic activity/Vol] 25 U/L Normal 7-38 [facility] Comment on above: Order Comment: Speci men Type: BLOOD SPECIMENOrdering Facility: [facility] Address: [address] [place] [address] Performed By: #### 2 4323-8, 43230-7, 2777-1, 3084-1 ####[facility] [id number] [place] [address] [place] Anion gap [Moles/Vol] 10 mmol/L Normal 9-18 [facility] Comment on above: Order Comment: Speci men Type: BLOOD SPECIMENOrdering Facility: [facility] Address: [address] [place] [address] Performed By: #### 2 4323-8, 74218-0, 7-1, 3084-1 ####[facility]CL[facility] [id number] [address] [address] [place] AST [Catalytic activity/Vol] 25 U/L Normal 13-35 [facility] Comment on above: Order Comment: Speci men Type: BLOOD SPECIMENOrdering Facility: [facility] Address: [address] [place] [address] Performed By: #### 2 4323-8, 04958-8, 2776-1, 3084-1 ####[facility]CL[facility] [id number] [place] [address] [place] Bilirubin [Mass/Vol] 0.7 mg/dL Normal 0.2-1.3 [facility] Comment on above: Order Comment: Speci men Type: BLOOD SPECIMENOrdering Facility: [facility] Address: [address] [place] [address] Performed By: #### 2 4323-8, 05970-3, 2776-1, 3084-1 ####[facility] [id number] [place] [address] [place] Calcium [Mass/Vol] 8.6 mg/dL Normal 8.5-10.2 [facility] Comment on above: Order Comment: Speci men Type: BLOOD SPECIMENOrdering Facility: [facility] Address: [facility] [place] [address] Performed By: #### 2 4323-8, 58114-7, 7-1, 3084-1 ####[facility] [id number] [address] [address] [place] Chloride [Moles/Vol] 106 mmol/L High 97-105 [facility] Comment on above: Order Comment: Speci men Type: BLOOD SPECIMENOrdering Facility: [facility] Address: [address] [place] [address] Performed By: #### 2 4323-8, 50494-3, 2777-1, 3084-1 ####[facility] [id number] [place] [address] [place] CO2 [Moles/Vol] 23 mmol/L Normal 22-30 [facility] Comment on above: Order Comment: Speci men Type: BLOOD SPECIMENOrdering Facility: [facility] Address: [address] [place] [address] Performed By: #### 2 4323-8, 12012-0, 7-1, 3084-1 ####[facility] [id number] [place] [address] [place] Creatinine [Mass/Vol] 0.57 mg/dL Low 0.58-0.96 [facility] Comment on above: Order Comment: Speci men Type: BLOOD SPECIMENOrdering Facility: [facility] Address: [address] [place] [address] Performed By: #### 2 4323-8, 57304-6, 2777-1, 3084-1 ####[facility]CL[facility] [id number] [place] [address] [place] Creatinine and Glomerular filtration rate.predicted panel (S/P/Bld) 91 mL/min/1.73m??? Normal >=60 [facility] Comment on above: Order Comment: Speci men Type: BLOOD SPECIMENOrdering Facility: [facility] Address: [address] [place] [address] Result Comment: Akiko mated Glomerular Filtration Rate [...] By: #### 2 4323-8, , 2776-07, 3083-07 ####[facility] [id number] [address] [address] [place] Glucose [Mass/Vol] 97 mg/dL Normal 74-99 [facility] Comment on above: Order Comment: Qi reynolds Type: BLOOD SPECIMENOrdering Facility: [facility] Address: [address] [place] [address] Result Comment: The [place] Diabetes Association (ADA) provides guidance for cutoff [...] Standards of Medical Care in Diabetes 2016, [place] [employer] Association. Diabetes Care. 2016.39(Suppl 1). Performed By: #### 2 4323-8, , 2776-07, 3083-07 ####[facility] [id number] [address] [address] [place] Potassium [Moles/Vol] 3.6 mmol/L Low 3.7-5.1 [facility] Comment on above: Order Comment: Qi reynolds Type: BLOOD SPECIMENOrdering Facility: [facility] Address: [address] [place] [address] Performed By: #### 2 4323-8, 59047-3, 2776-07, 3083- ####[facility] [id number] [address] [address] [place] Protein [Mass/Vol] 5.3 g/dL Low 6.3-8.0 [facility] Comment on above: Order Comment: Speci men Type: BLOOD SPECIMENOrdering Facility: [facility] Address: [address] [place] [address] Performed By: #### 2 4323-8, 12728-4, 2777-1, 3084-1 ####[facility] [id number] [place] [address] [place] Sodium [Moles/Vol] 139 mmol/L Normal 136-144 [facility] Comment on above: Order Comment: Speci men Type: BLOOD SPECIMENOrdering Facility: [facility] Address: [address] [place] [address] Performed By: #### 2 4323-8, 52554-4, 2777-1, 3084-1 ####[facility]CL[facility] [id number] [place] [address] [place] Urea nitrogen [Mass/Vol] 11 mg/dL Normal 7-21 [facility] Comment on above: Order Comment: Speci men Type: BLOOD SPECIMENOrdering Facility: [facility] Address: [address] [place] [address] Performed By: #### 2 4323-8, 00657-3, 2777-1, 3084-1 ####[facility] [id number] [place] [address] [place] Fibrinogen PPP-mCncon 2023 Fibrinogen Coag (PPP) [Mass/Vol] 539 mg/dL High 200-400 [facility] Comment on above: Order Comment: Speci men Type: BLOOD SPECIMENOrdering Facility: [facility] Address: [address] [place] [address] Result Comment: Resu lt rechecked.Sample checked for clot. Performed By: #### 1 4979-9, 3255-7, 75912-2 ####[facility]CLIA [id number] [place] [id number] [place] HISTORY PHYSICALon HISTORY PHYSICAL Normal [facility] IR PORTOCATH PLACEMENTon IR PORTOCATH PLACEMENT Normal [facility] Magnesium SerPl-mCncon 09-24 Magnesium [Mass/Vol] 2.4 mg/dL High 1.7-2.3 [facility] Comment on above: Order Comment: Speci men Type: BLOOD SPECIMENOrdering Facility: [facility] Address: [address] [place] [address] Performed By: #### 2 4323-8, 65431-8, 2777-1, 3084-1 ####[facility] [id number] [place] [address] [place] PT EDon 09-25-[address] [facility] PT panel Coag (PPP)on 2023 INR Coag (PPP) [Relative time] 1.2 {INR} Normal 0.9-1.3 [facility] Comment on above: Order Comment: Speci rodolfo Type: BLOOD SPECIMENOrdering Facility: [facility] Address: [address] [place] [address] Result Comment: Clementine min K Antagonist (VKA) Therapeutic Range: INR 2 to 3 (Target INR of 2.5)Note: For patients treated with VKA drugs, such as warfarin, the [place] [employer] 2012 Guideline recommends [...] JACC 2017, 70: 252-289 Performed By: #### 1 4979-9, 3255-7, 21365-1 ####[facility] [id number] [address] [address] [place] PT Coag (PPP) [Time] 12.9 s Normal 9.7-13.0 [facility] Comment on above: Order Comment: Speci men Type: BLOOD SPECIMENOrdering Facility: [facility] Address: [address] [place] [address] Performed By: #### 1 4979-9, 3255-7, 92560-1 ####[facility]CL[facility] [id number] [place] [id number] [place] Phosphate SerPl-mCncon 09-24 Phosphate [Mass/Vol] 1.9 mg/dL Low 2.7-4.8 [facility] Comment on above: Order Comment: Speci men Type: BLOOD SPECIMENOrdering Facility: [facility] Address: [address] [place] [address] Performed By: #### 2 4323-8, 05715-3, 2777-1, 3084-1 ####[facility]CL[facility] [id number] [place] [id number] [place] SOCIAL WORKon 09-25-[address] [facility] Urate SerPl-ncon Urate [Mass/Vol] 1.8 mg/dL Low 2.5-6.6 [facility] Comment on above: Order Comment: Speci men Type: BLOOD SPECIMENOrdering Facility: [facility] Address: [address] [place] [address] Performed By: #### 2 4323-8, 78361-4, 2777-1, 3084-1 ####[facility] [id number] [place] [id number] [place] aPTT PPPon 09-25-2023 aPTT Coag (PPP) [Time] 36.2 s High 23.0-32.4 [facility] Comment on above: Order Comment: Speci men Type: BLOOD SPECIMENOrdering Facility: [facility] Address: [address] [place] [address] Performed By: #### 1 4979-9, 3255-7, 32576-8 ####[facility] [id number] [place] [address] [place] ALLIED HEALTHon 09-24-[address] [facility] CASE MANAGEMon 09-24-[address] [facility] CBC W Auto Differential pane l (Bld)on 09-24-2023 Anisocytosis Ql (Bld) Present Normal [facility] Comment on above: Order Comment: Speci men Type: BLOOD SPECIMENOrdering Facility: [facility] Address: [address] [place] [address] Performed By: #### 5 7021-8 ####[facility]CL[facility] [id number] [place] [address] [place] Basophils (Bld) [#/Vol] 0.00 10*3/uL Normal <0.11 [facility] Comment on above: Order Comment: Speci men Type: BLOOD SPECIMENOrdering Facility: [facility] Address: [address] [place] [address] Performed By: #### 5 7021-8 ####[facility]CL[facility] [id number] [place] [address] [place] Basophils/100 WBC (Bld) 0.0 % Normal [facility] Comment on above: Order Comment: Speci men Type: BLOOD SPECIMENOrdering Facility: [facility] Address: [address] [place] [address] Performed By: #### 5 7021-8 ####[facility] [id number] [place] [address] [place] BLAST% 60.0 % High <=0.0 [facility] Comment on above: Order Comment: Speci men Type: BLOOD SPECIMENOrdering Facility: [facility] Address: [address] [place] [address] Performed By: #### 5 7021-8 ####[facility] [id number] [place] [address] [place] Dacrocytes LM Ql (Bld) Few Normal [facility] Comment on above: Order Comment: Speci men Type: BLOOD SPECIMENOrdering Facility: [facility] Address: [address] [place] [address] Performed By: #### 5 7021-8 ####[facility] [id number] [place] [address] [place] Differential cell count method Nom (Bld) Manual Normal [facility] Comment on above: Order Comment: Speci men Type: BLOOD SPECIMENOrdering Facility: [facility] Address: [address] [place] [address] Performed By: #### 5 7021-8 ####[facility]CL[facility] [id number] [place] [address] [place] Eosinophils (Bld) [#/Vol] 0.00 10*3/uL Normal <0.46 [facility] Comment on above: Order Comment: Speci men Type: BLOOD SPECIMENOrdering Facility: [facility] Address: [address] [place] [address] Performed By: #### 5 7021-8 ####[facility] [id number] [place] [address] [place] Eosinophils/100 WBC (Bld) 0.0 % Normal [facility] Comment on above: Order Comment: Speci men Type: BLOOD SPECIMENOrdering Facility: [facility] Address: [address] [place] [address] Performed By: #### 5 7021-8 ####[facility] [id number] [place] [address] [place] Erythrocyte distribution width (RBC) [Ratio] 21.8 % High 11.5-15.0 [facility] Comment on above: Order Comment: Speci men Type: BLOOD SPECIMENOrdering Facility: [facility] Address: [address] [place] [address] Performed By: #### 5 7021-8 ####[facility] [id number] [place] [address] [place] Hematocrit (Bld) [Volume fraction] 19.9 % Low 36.0-46.0 [facility] Comment on above: Order Comment: Speci men Type: BLOOD SPECIMENOrdering Facility: [facility] Address: [address] [place] [address] Performed By: #### 5 7021-8 ####[facility] [id number] [place] [address] [place] Hemoglobin (Bld) [Mass/Vol] 6.5 g/dL Low 11.5-15.5 [facility] Comment on above: Order Comment: Speci men Type: BLOOD SPECIMENOrdering Facility: [facility] Address: [address] [place] [address] Performed By: #### 5 7021-8 ####[facility] [id number] [place] [address] [place] Lymphocytes (Bld) [#/Vol] 0.93 10*3/uL Low 1.00-4.00 [facility] Comment on above: Order Comment: Speci men Type: BLOOD SPECIMENOrdering Facility: [facility] Address: [address] [place] [address] Performed By: #### 5 7021-8 ####[facility] [id number] [place] [address] [place] Lymphocytes/100 WBC (Bld) 22.0 % Normal [facility] Comment on above: Order Comment: Speci men Type: BLOOD SPECIMENOrdering Facility: [facility] Address: [address] [place] [address] Performed By: #### 5 7021-8 ####[facility] [id number] [place] [address] [place] MCH (RBC) [Entitic mass] 31.0 pg Normal 26.0-34.0 [facility] Comment on above: Order Comment: Speci men Type: BLOOD SPECIMENOrdering Facility: [facility] Address: [address] [place] [address] Performed By: #### 5 7021-8 ####[facility] [id number] [place] [address] [place] MCHC (RBC) [Mass/Vol] 32.7 g/dL Normal 30.5-36.0 [facility] Comment on above: Order Comment: Speci men Type: BLOOD SPECIMENOrdering Facility: [facility] Address: [address] [place] [address] Performed By: #### 5 7021-8 ####[facility] [id number] [place] [address] [place] MCV (RBC) [Entitic vol] 94.8 fL Normal 80.0-100.0 [facility] Comment on above: Order Comment: Speci men Type: BLOOD SPECIMENOrdering Facility: [facility] Address: [address] [place] [address] Performed By: #### 5 7021-8 ####[facility] [id number] [place] [address] [place] Metamyelocytes/100 WBC (Bld) 1.0 % Normal [facility] Comment on above: Order Comment: Speci men Type: BLOOD SPECIMENOrdering Facility: [facility] Address: [address] [place] [address] Performed By: #### 5 7021-8 ####[facility]CL[facility] [id number] [place] [address] [place] Monocytes (Bld) [#/Vol] 0.00 10*3/uL Normal <0.87 [facility] Comment on above: Order Comment: Speci men Type: BLOOD SPECIMENOrdering Facility: [facility] Address: [address] [place] [address] Performed By: #### 5 7021-8 ####[facility]CL[facility] [id number] [place] [address] [place] Monocytes/100 WBC (Bld) 0.0 % Normal [facility] Comment on above: Order Comment: Speci men Type: BLOOD SPECIMENOrdering Facility: [facility] Address: [address] [place] [address] Performed By: #### 5 7021-8 ####[facility]CL[facility] [id number] [place] [address] [place] Neutrophils (Bld) [#/Vol] 0.72 10*3/uL Low 1.45-7.50 [facility] Comment on above: Order Comment: Speci men Type: BLOOD SPECIMENOrdering Facility: [facility] Address: [address] [place] [address] Performed By: #### 5 7021-8 ####[facility]CL[facility] [id number] [place] [address] [place] Neutrophils/100 WBC (Bld) 17.0 % Normal [facility] Comment on above: Order Comment: Speci men Type: BLOOD SPECIMENOrdering Facility: [facility] Address: [address] [place] [address] Performed By: #### 5 7021-8 ####[facility] [id number] [place] [address] [place] Nucleated RBC (Bld) [#/Vol] 10*3/uL Normal <0.01 [facility] Comment on above: Order Comment: Speci men Type: BLOOD SPECIMENOrdering Facility: [facility] Address: [address] [place] [address] Performed By: #### 5 7021-8 ####[facility] [id number] [place] [address] [place] Nucleated RBC/100 WBC (Bld) [Ratio] 0.0 /[address] [facility] Comment on above: Order Comment: Speci men Type: BLOOD SPECIMENOrdering Facility: [facility] Address: [address] [place] [address] Performed By: #### 5 7021-8 ####[facility] [id number] [place] [address] [place] Ovalocytes LM Ql (Bld) Few Normal [facility] Comment on above: Order Comment: Speci men Type: BLOOD SPECIMENOrdering Facility: [facility] Address: [address] [place] [address] Performed By: #### 5 7021-8 ####[facility] [id number] [place] [address] [place] Platelet mean volume (Bld) [Entitic vol] Normal [facility] Comment on above: Order Comment: Speci men Type: BLOOD SPECIMENOrdering Facility: [facility] Address: [address] [place] [address] Result Comment: Unab le to Report. Performed By: #### 5 7021-8 ####[facility] [id number] [place] [address] [place] Platelets (Bld) [#/Vol] 3 10*3/uL Critically low 150-400 [facility] Comment on above: Order Comment: Speci men Type: BLOOD SPECIMENOrdering Facility: [facility] Address: [address] [place] [address] Result Comment: Resu lts checked and verified.No clot detected. Performed By: #### 5 7021-8 ####[facility] [id number] [place] [address] [place] Platelets Estimate (Bld) [#/Vol] Decreased Normal [facility] Comment on above: Order Comment: Speci men Type: BLOOD SPECIMENOrdering Facility: [facility] Address: [address] [place] [address] Performed By: #### 5 7021-8 ####[facility] [id number] [place] [address] [place] Polychromasia LM Ql (Bld) Slight Normal [facility] Comment on above: Order Comment: Speci men Type: BLOOD SPECIMENOrdering Facility: [facility] Address: [address] [place] [address] Performed By: #### 5 7021-8 ####[facility] [id number] [place] [address] [place] RBC (Bld) [#/Vol] 2.10 10*6/uL Low 3.90-5.20 [facility] Comment on above: Order Comment: Speci men Type: BLOOD SPECIMENOrdering Facility: [facility] Address: [address] [place] [address] Performed By: #### 5 7021-8 ####[facility] [id number] [place] [address] [place] RBC FRAGMENTS Few Abnormal None Seen [facility] Comment on above: Order Comment: Speci men Type: BLOOD SPECIMENOrdering Facility: [facility] Address: [address] [place] [address] Performed By: #### 5 7021-8 ####[facility] [id number] [place] [address] [place] RED CELL MORPH Reviewed: see result s of individual morphologies Normal [facility] Comment on above: Order Comment: Speci men Type: BLOOD SPECIMENOrdering Facility: [facility] Address: [address] [place] [address] Performed By: #### 5 7021-8 ####[facility]CLIA [id number] [address] [address] [place] SPHEROCYTES Few Normal [facility] Comment on above: Order Comment: Speci men Type: BLOOD SPECIMENOrdering Facility: [facility] Address: [address] [place] [address] Performed By: #### 5 7021-8 ####[facility]IA [id number] [place] [address] [place] WBC (Bld) [#/Vol] 4.22 10*3/uL Normal 3.70-11.00 [facility] Comment on above: Order Comment: Speci men Type: BLOOD SPECIMENOrdering Facility: [facility] Address: [address] [place] [address] Performed By: #### 5 7021-8 ####[facility]CL[facility] [id number] [place] [address] [place] WBC Left Shift Ql (Bld) Present Normal [facility] Comment on above: Order Comment: Speci men Type: BLOOD SPECIMENOrdering Facility: [facility] Address: [address] [place] [address] Performed By: #### 5 7021-8 ####[facility]IA [id number] [place] [id number] [place] Comprehensive metabolic 2000 panelon 09-24-2023 Albumin [Mass/Vol] 2.8 g/dL Low 3.9-4.9 [facility] Comment on above: Order Comment: Speci men Type: BLOOD SPECIMENOrdering Facility: [facility] Address: [address] [place] [address] Performed By: #### 2 4323-8, 20528-6, 2777-1, 3084-1 ####[facility]CLIA [id number] [address] [address] [place] ALP [Catalytic activity/Vol] 60 U/L Normal 34-123 [facility] Comment on above: Order Comment: Speci men Type: BLOOD SPECIMENOrdering Facility: [facility] Address: [address] [place] [address] Performed By: #### 2 4323-8, 75699-0, 2776-07, 3083-1 ####[facility]CLIA [id number] [address] [address] [place] ALT [Catalytic activity/Vol] 22 U/L Normal 7-38 [facility] Comment on above: Order Comment: Speci men Type: BLOOD SPECIMENOrdering Facility: [facility] Address: [address] [place] [address] Performed By: #### 2 4323-8, 96036-4, 2776-07, 3083- ####[facility]CLIA [id number] [address] [address] [place] Anion gap [Moles/Vol] 8 mmol/L Low 9-18 [facility] Comment on above: Order Comment: Speci men Type: BLOOD SPECIMENOrdering Facility: [facility] Address: [address] [place] [address] Performed By: #### 2 4323-8, 43643-6, 2776-07, 3083- ####[facility] [id number] [address] [address] [place] AST [Catalytic activity/Vol] 20 U/L Normal 13-35 [facility] Comment on above: Order Comment: Speci men Type: BLOOD SPECIMENOrdering Facility: [facility] Address: [address] [place] [address] Performed By: #### 2 4323-8, 42575-8, 2776-, 308-1 ####[facility] [id number] [address] [address] [place] Bilirubin [Mass/Vol] 0.5 mg/dL Normal 0.2-1.3 [facility] Comment on above: Order Comment: Speci men Type: BLOOD SPECIMENOrdering Facility: [facility] Address: [address] [place] [address] Performed By: #### 2 4323-8, 96260-3, 2776-, 3083-1 ####[facility]CLIA [id number] [place] [address] [place] Calcium [Mass/Vol] 8.3 mg/dL Low 8.5-10.2 [facility] Comment on above: Order Comment: Speci men Type: BLOOD SPECIMENOrdering Facility: [facility] Address: [address] [place] [address] Performed By: #### 2 4323-8, 03220-5, 2776-07, 3083-1 ####[facility]CLIA [id number] [place] [address] [place] Chloride [Moles/Vol] 104 mmol/L Normal 97-105 [facility] Comment on above: Order Comment: Speci men Type: BLOOD SPECIMENOrdering Facility: [facility] Address: [address] [place] [address] Performed By: #### 2 4323-8, 32174-8, 27701-13, 3083-1 ####[facility]CLIA [id number] [place] [address] [place] CO2 [Moles/Vol] 26 mmol/L Normal 22-30 [facility] Comment on above: Order Comment: Speci men Type: BLOOD SPECIMENOrdering Facility: [facility] Address: [address] [place] [address] Performed By: #### 2 4323-8, 21078-7, 277-, 308-1 ####[facility]CL[facility] [id number] [place] [address] [place] Creatinine [Mass/Vol] 0.60 mg/dL Normal 0.58-0.96 [facility] Comment on above: Order Comment: Qi reynolds Type: BLOOD SPECIMENOrdering Facility: [facility] Address: [address] [place] [address] Performed By: #### 2 4323-8, 16310-5, 2777-1, 3084-1 ####[facility] LABIA [id number] [place] [address] [place] Creatinine and Glomerular filtration rate.predicted panel (S/P/Bld) 90 mL/min/1.73m??? Normal >=60 [facility] Comment on above: Order Comment: Qi reynolds Type: BLOOD SPECIMENOrdering Facility: [facility] Address: [address] [place] [address] Result Comment: Akiko mated Glomerular Filtration Rate [...] actual GFR. Performed By: #### 2 4323-8, 59531-1, 2777-1, 3084-1 ####[facility] LABIA [id number] [place] [address] [place] Glucose [Mass/Vol] 89 mg/dL Normal 74-99 [facility] Comment on above: Order Comment: Qi reynolds Type: BLOOD SPECIMENOrdering Facility: [facility] Address: [address] [place] [address] Result Comment: The [place] Diabetes Association (ADA) provides guidance for cutoff [...] Standards of Medical Care in Diabetes 2016, [place] [employer] Association. Diabetes Care. 2016.39(Suppl 1). Performed By: #### 2 4323-8, 45232-7, 2776-, 3083-1 ####[facility] [id number] [address] [address] [place] Potassium [Moles/Vol] 3.2 mmol/L Low 3.7-5.1 [facility] Comment on above: Order Comment: Speci men Type: BLOOD SPECIMENOrdering Facility: [facility] Address: [address] [place] [address] Performed By: #### 2 4323-8, 50364-5, 2776-07, 3083-07 ####[facility]CLIA [id number] [place] [address] [place] Protein [Mass/Vol] 4.9 g/dL Low 6.3-8.0 [facility] Comment on above: Order Comment: Qi reynolds Type: BLOOD SPECIMENOrdering Facility: [facility] Address: [address] [place] [address] Performed By: #### 2 4323-8, 00709-3, 2776-07, 3083- ####[facility]CLIA [id number] [address] [address] [place] Sodium [Moles/Vol] 138 mmol/L Normal 136-144 [facility] Comment on above: Order Comment: Nikkii men Type: BLOOD SPECIMENOrdering Facility: [facility] Address: [address] [place] [address] Performed By: #### 2 4323-8, 97408-5, 2776-07, 3083-1 ####[facility]CLIA [id number] [place] [address] [place] Urea nitrogen [Mass/Vol] 11 mg/dL Normal 7-21 [facility] Comment on above: Order Comment: Speci men Type: BLOOD SPECIMENOrdering Facility: [facility] Address: [address] [place] [address] Performed By: #### 2 4323-8, 92972-8, 2777-1, 3084-1 ####[facility] LABIA [id number] [place] [address] [place] Fibrinogen PPP-mCncon 2023 Fibrinogen Coag (PPP) [Mass/Vol] 523 mg/dL High 200-400 [facility] Comment on above: Order Comment: Speci men Type: BLOOD SPECIMENOrdering Facility: [facility] Address: [address] [place] [address] Performed By: #### 3 255-7, 37626-7, 97121-3 ####[facility] [id number] [place] [address] [place] Magnesium SerPl-mCncon 09-23 Magnesium [Mass/Vol] 2.3 mg/dL Normal 1.7-2.3 [facility] Comment on above: Order Comment: Speci men Type: BLOOD SPECIMENOrdering Facility: [facility] Address: [address] [place] [address] Performed By: #### 2 4323-8, 55815-1, 2777-1, 3084-1 ####[facility] LABIA [id number] [place] [id number] [place] NURSING PROGon 09-24-[address] [facility] PT panel Coag (PPP)on 2023 INR Coag (PPP) [Relative time] 1.3 {INR} Normal 0.9-1.3 [facility] Comment on above: Order Comment: Speci men Type: BLOOD SPECIMENOrdering Facility: [facility] Address: [address] [place] [address] Result Comment: Clementine min K Antagonist (VKA) Therapeutic Range: INR 2 to 3 (Target INR of 2.5)Note: For patients treated with VKA drugs, such as warfarin, the [place] [employer] 2012 Guideline recommends [...] al. Chest 2012, 141:7S-47SNishfabrizio RA, et al. [facility] 2017, 70: 252-289 Performed By: #### 3 255-7, 51496-2, 80899-1 ####[facility] [id number] [place] [address] [place] PT Coag (PPP) [Time] 13.9 s High 9.7-13.0 [facility] Comment on above: Order Comment: Qi reynolds Type: BLOOD SPECIMENOrdering Facility: [facility] Address: [address] [place] [address] Performed By: #### 3 255-7, 35973-9, 30268-9 ####[facility] [id number] [address] [address] [place] Phosphate SerPl-mCncon 09-23 Phosphate [Mass/Vol] 2.8 mg/dL Normal 2.7-4.8 [facility] Comment on above: Order Comment: Qi reynolds Type: BLOOD SPECIMENOrdering Facility: [facility] Address: [address] [place] [address] Performed By: #### 2 4323-8, 63285-8, 7-1, 4-1 ####[facility]CLIA [id number] [place] [id number] [place] TYPE + SCREENon 09-24-2023 HISTORICAL AB SCR STATUS Positive Abnormal [facility] Comment on above: Order Comment: Speci men Type: BLOOD SPECIMENOrdering Facility: [facility] Address: [address] [place] [address] Performed By: #### T SCR ####[facility] BLOOD BANKIA [id number] [place] [address] [place] TYPE AND SCREEN EXPIRATION 09/27/2023 23:[address] [facility] Comment on above: Order Comment: Speci men Type: BLOOD SPECIMENOrdering Facility: [facility] Address: [address] [place] [address] Performed By: #### T SCR ####[facility] BLOOD BANKCLIA [id number] [place] [id number] [place] Urate SerPl-mCncon Urate [Mass/Vol] 2.1 mg/dL Low 2.5-6.6 [facility] Comment on above: Order Comment: Speci men Type: BLOOD SPECIMENOrdering Facility: [facility] Address: [address] [place] [address] Performed By: #### 2 4323-8, 43564-7, 2776-1, 3083- ####[facility] LABCLIA [id number] [place] [id number] [place] aPTT PPPon 09-24-2023 aPTT Coag (PPP) [Time] 38.2 s High 23.0-32.4 [facility] Comment on above: Order Comment: Speci men Type: BLOOD SPECIMENOrdering Facility: [facility] Address: [address] [place] [address] Performed By: #### 3 255-7, 18346-7, 53298-1 ####[facility]CLIA [id number] [place] [address] [place] BMT REC INIT W/Uon ALLOGEN RESULTS TO FOLLOW See Allogen report to follow Normal [facility] Comment on above: Order Comment: Speci men Type: BLOOD SPECIMENOrdering Facility: [facility] Address: [address] [place] [address] Performed By: #### B MTRIW ####[facility]IES[facility] [id number] [place] [address] [place] CBC W Auto Differential pane l (Bld)on 09-23-2023 Anisocytosis Ql (Bld) Present Normal [facility] Comment on above: Order Comment: Speci men Type: BLOOD SPECIMENOrdering Facility: [facility] Address: [address] [place] [address] Performed By: #### 5 7021-8 ####[facility] LABCLIA [id number] [place] [address] [place] Basophilic stippling LM Ql (Bld) Occasional Normal [facility] Comment on above: Order Comment: Speci men Type: BLOOD SPECIMENOrdering Facility: [facility] Address: [address] [place] [address] Performed By: #### 5 7021-8 ####[facility]CLIA [id number] [place] [address] [place] Basophils (Bld) [#/Vol] 0.00 10*3/uL Normal <0.11 [facility] Comment on above: Order Comment: Speci men Type: BLOOD SPECIMENOrdering Facility: [facility] Address: [address] [place] [address] Performed By: #### 5 7021-8 ####[facility]CLIA [id number] [place] [address] [place] Basophils/100 WBC (Bld) 0.0 % Normal [facility] Comment on above: Order Comment: Speci men Type: BLOOD SPECIMENOrdering Facility: [facility] Address: [address] [place] [address] Performed By: #### 5 7021-8 ####[facility]CLIA [id number] [place] [address] [place] BLAST% 63.0 % High <=0.0 [facility] Comment on above: Order Comment: Speci men Type: BLOOD SPECIMENOrdering Facility: [facility] Address: [address] [place] [address] Performed By: #### 5 7021-8 ####[facility]CLIA [id number] [place] [address] [place] Dacrocytes LM Ql (Bld) Few Normal [facility] Comment on above: Order Comment: Speci men Type: BLOOD SPECIMENOrdering Facility: [facility] Address: [address] [place] [address] Performed By: #### 5 7021-8 ####[facility]CLIA [id number] [place] [address] [place] Differential cell count method Nom (Bld) Manual Normal [facility] Comment on above: Order Comment: Speci men Type: BLOOD SPECIMENOrdering Facility: [facility] Address: [address] [place] [address] Performed By: #### 5 7021-8 ####[facility]CLIA [id number] [place] [address] [place] Eosinophils (Bld) [#/Vol] 0.00 10*3/uL Normal <0.46 [facility] Comment on above: Order Comment: Speci men Type: BLOOD SPECIMENOrdering Facility: [facility] Address: [address] [place] [address] Performed By: #### 5 7021-8 ####[facility]CLIA [id number] [place] [address] [place] Eosinophils/100 WBC (Bld) 0.0 % Normal [facility] Comment on above: Order Comment: Speci men Type: BLOOD SPECIMENOrdering Facility: [facility] Address: [address] [place] [address] Performed By: #### 5 7021-8 ####[facility] LABCLIA [id number] [place] [address] [place] Erythrocyte distribution width (RBC) [Ratio] 22.2 % High 11.5-15.0 [facility] Comment on above: Order Comment: Speci men Type: BLOOD SPECIMENOrdering Facility: [facility] Address: [address] [place] [address] Performed By: #### 5 7021-8 ####[facility] LABCLIA [id number] [place] [address] [place] Hematocrit (Bld) [Volume fraction] 22.7 % Low 36.0-46.0 [facility] Comment on above: Order Comment: Speci men Type: BLOOD SPECIMENOrdering Facility: [facility] Address: [address] [place] [address] Performed By: #### 5 7021-8 ####[facility] LABCLIA [id number] [place] [address] [place] Hemoglobin (Bld) [Mass/Vol] 7.7 g/dL Low 11.5-15.5 [facility] Comment on above: Order Comment: Speci men Type: BLOOD SPECIMENOrdering Facility: [facility] Address: [address] [place] [address] Performed By: #### 5 7021-8 ####[facility] LABCLIA [id number] [place] [address] [place] Lymphocytes (Bld) [#/Vol] 1.52 10*3/uL Normal 1.00-4.00 [facility] Comment on above: Order Comment: Speci men Type: BLOOD SPECIMENOrdering Facility: [facility] Address: [address] [place] [address] Performed By: #### 5 7021-8 ####[facility] LABCLIA [id number] [place] [address] [place] Lymphocytes/100 WBC (Bld) 13.0 % Normal [facility] Comment on above: Order Comment: Speci men Type: BLOOD SPECIMENOrdering Facility: [facility] Address: [address] [place] [address] Performed By: #### 5 7021-8 ####[facility]CLIA [id number] [place] [address] [place] MCH (RBC) [Entitic mass] 32.1 pg Normal 26.0-34.0 [facility] Comment on above: Order Comment: Speci men Type: BLOOD SPECIMENOrdering Facility: [facility] Address: [address] [place] [address] Performed By: #### 5 7021-8 ####[facility]CLIA [id number] [place] [address] [place] MCHC (RBC) [Mass/Vol] 33.9 g/dL Normal 30.5-36.0 [facility] Comment on above: Order Comment: Speci men Type: BLOOD SPECIMENOrdering Facility: [facility] Address: [address] [place] [address] Performed By: #### 5 7021-8 ####[facility]CLIA [id number] [place] [address] [place] MCV (RBC) [Entitic vol] 94.6 fL Normal 80.0-100.0 [facility] Comment on above: Order Comment: Speci men Type: BLOOD SPECIMENOrdering Facility: [facility] Address: [address] [place] [address] Performed By: #### 5 7021-8 ####[facility]CLIA [id number] [place] [address] [place] Monocytes (Bld) [#/Vol] 0.35 10*3/uL Normal <0.87 [facility] Comment on above: Order Comment: Speci men Type: BLOOD SPECIMENOrdering Facility: [facility] Address: [address] [place] [address] Performed By: #### 5 7021-8 ####[facility]CLIA [id number] [place] [address] [place] Monocytes/100 WBC (Bld) 3.0 % Normal [facility] Comment on above: Order Comment: Speci men Type: BLOOD SPECIMENOrdering Facility: [facility] Address: [address] [place] [address] Performed By: #### 5 7021-8 ####[facility]CLIA [id number] [place] [address] [place] MYELO% 1.0 % Normal [facility] Comment on above: Order Comment: Speci men Type: BLOOD SPECIMENOrdering Facility: [facility] Address: [address] [place] [address] Performed By: #### 5 7021-8 ####[facility]CLIA [id number] [place] [address] [place] Neutrophils (Bld) [#/Vol] 2.33 10*3/uL Normal 1.45-7.50 [facility] Comment on above: Order Comment: Speci men Type: BLOOD SPECIMENOrdering Facility: [facility] Address: [address] [place] [address] Performed By: #### 5 7021-8 ####[facility]CLIA [id number] [place] [address] [place] Neutrophils/100 WBC (Bld) 20.0 % Normal [facility] Comment on above: Order Comment: Speci men Type: BLOOD SPECIMENOrdering Facility: [facility] Address: [address] [place] [address] Performed By: #### 5 7021-8 ####[facility]CLIA [id number] [place] [address] [place] Nucleated RBC (Bld) [#/Vol] 0.12 10*3/uL High <0.01 [facility] Comment on above: Order Comment: Speci men Type: BLOOD SPECIMENOrdering Facility: [facility] Address: [address] [place] [address] Performed By: #### 5 7021-8 ####[facility] LABIA [id number] [place] [address] [place] Nucleated RBC/100 WBC (Bld) [Ratio] 1.0 /[address] [facility] Comment on above: Order Comment: Speci men Type: BLOOD SPECIMENOrdering Facility: [facility] Address: [address] [place] [address] Performed By: #### 5 7021-8 ####[facility]CLIA [id number] [place] [address] [place] Ovalocytes LM Ql (Bld) Few Normal [facility] Comment on above: Order Comment: Speci men Type: BLOOD SPECIMENOrdering Facility: [facility] Address: [address] [place] [address] Performed By: #### 5 7021-8 ####[facility]CLIA [id number] [place] [address] [place] Platelet mean volume (Bld) [Entitic vol] Normal [facility] Comment on above: Order Comment: Speci men Type: BLOOD SPECIMENOrdering Facility: [facility] Address: [address] [place] [address] Result Comment: Unab le to Report. Performed By: #### 5 7021-8 ####[facility]CLIA [id number] [place] [address] [place] Platelets (Bld) [#/Vol] 5 10*3/uL Critically low 150-400 [facility] Comment on above: Order Comment: Speci men Type: BLOOD SPECIMENOrdering Facility: [facility] Address: [address] [place] [address] Result Comment: Plat elet count confirmed by manual review of peripheral blood smear. Results checked and verified.No clot detected. Performed By: #### 5 7021-8 ####[facility]CLIA [id number] [place] [address] [place] Platelets Estimate (Bld) [#/Vol] Decreased Normal [facility] Comment on above: Order Comment: Speci men Type: BLOOD SPECIMENOrdering Facility: [facility] Address: [address] [place] [address] Performed By: #### 5 7021-8 ####[facility]CLIA [id number] [place] [address] [place] Polychromasia LM Ql (Bld) Slight Normal [facility] Comment on above: Order Comment: Speci men Type: BLOOD SPECIMENOrdering Facility: [facility] Address: [address] [place] [address] Performed By: #### 5 7021-8 ####[facility]CLIA [id number] [place] [address] [place] RBC (Bld) [#/Vol] 2.40 10*6/uL Low 3.90-5.20 [facility] Comment on above: Order Comment: Speci men Type: BLOOD SPECIMENOrdering Facility: [facility] Address: [address] [place] [address] Performed By: #### 5 7021-8 ####[facility]CLIA [id number] [place] [address] [place] RBC FRAGMENTS Few Abnormal None Seen [facility] Comment on above: Order Comment: Speci men Type: BLOOD SPECIMENOrdering Facility: [facility] Address: [address] [place] [address] Performed By: #### 5 7021-8 ####[facility]CLIA [id number] [place] [address] [place] RED CELL MORPH Reviewed: see result s of individual morphologies Normal [facility] Comment on above: Order Comment: Speci men Type: BLOOD SPECIMENOrdering Facility: [facility] Address: [address] [place] [address] Performed By: #### 5 7021-8 ####[facility]CLIA [id number] [place] [address] [place] SPHEROCYTES Few Normal [facility] Comment on above: Order Comment: Speci men Type: BLOOD SPECIMENOrdering Facility: [facility] Address: [address] [place] [address] Performed By: #### 5 7021-8 ####[facility]CLIA [id number] [place] [address] [place] WBC (Bld) [#/Vol] 11.67 10*3/uL High 3.70-11.00 [facility] Comment on above: Order Comment: Speci men Type: BLOOD SPECIMENOrdering Facility: [facility] Address: [address] [place] [address] Performed By: #### 5 7021-8 ####[facility]CLIA [id number] [place] [address] [place] WBC Left Shift Ql (Bld) Present Normal [facility] Comment on above: Order Comment: Speci men Type: BLOOD SPECIMENOrdering Facility: [facility] Address: [address] [place] [address] Performed By: #### 5 7021-8 ####[facility]CLIA [id number] [place] [address] [place] CMV IgG Qnon 03-10-2024 CMV IGG QUAL Negative Normal Negative [facility] Comment on above: Order Comment: Speci men Type: BLOOD SPECIMENOrdering Facility: [facility] Address: [address] [place] [address] Result Comment: No s erological evidence of past exposure to Cytomegalovirus. Cannot exclude recent infection if the specimen collected within 4-6 weeks after infection. Performed By: #### 7 852-7 ####[facility]CLIA [id number] [place] [address] [place] CMV IgG SerPl-aCncon 024 CMV IgG Qn <0.[address] [facility] Comment on above: Order Comment: Speci men Type: BLOOD SPECIMENOrdering Facility: [facility] [facility] Address: [address] [place] [address] Result Comment: The magnitude of the measured result is not indicative of the amount of antibody present.U/mL values are interpreted as follows:Negative <0.6Equivocal 0.6 to <0.70Positive >=0.70 Performed By: #### 7 852-7 ####[facility] [id number] [place] [address] [place] Comprehensive metabolic 2000 panelon 09-23-2023 Albumin [Mass/Vol] 2.9 g/dL Low 3.9-4.9 [facility] Comment on above: Order Comment: Speci men Type: BLOOD SPECIMENOrdering Facility: [facility] Address: [address] [place] [address] Performed By: #### 2 4323-8, 48068-9, 2777-1, 3084-1 ####[facility] [id number] [place] [address] [place] ALP [Catalytic activity/Vol] 63 U/L Normal 34-123 [facility] Comment on above: Order Comment: Speci men Type: BLOOD SPECIMENOrdering Facility: [facility] Address: [address] [place] [address] Performed By: #### 2 4323-8, 50780-3, 2777-1, 3084-1 ####[facility] [id number] [address] [address] [place] ALT [Catalytic activity/Vol] 22 U/L Normal 7-38 [facility] Comment on above: Order Comment: Speci men Type: BLOOD SPECIMENOrdering Facility: [facility] Address: [address] [place], [place] [address] Performed By: #### 2 4323-8, 46645-8, 2777-1, 3084-1 ####[facility] [id number] [place] [address] [place] Anion gap [Moles/Vol] 11 mmol/L Normal 9-18 [facility] Comment on above: Order Comment: Speci men Type: BLOOD SPECIMENOrdering Facility: [facility] Address: [address] [place] [address] Performed By: #### 2 4323-8, 42739-3, 277-1, 3084-1 ####[facility] [id number] [place] [address] [place] AST [Catalytic activity/Vol] 28 U/L Normal 13-35 [facility] Comment on above: Order Comment: Speci men Type: BLOOD SPECIMENOrdering Facility: [facility] Address: [address] [place], [place] [address] Performed By: #### 2 4323-8, 93517-6, 7-1, 3084-1 ####[facility] [id number] [place] [address] [place] Bilirubin [Mass/Vol] 0.5 mg/dL Normal 0.2-1.3 [facility] Comment on above: Order Comment: Speci men Type: BLOOD SPECIMENOrdering Facility: [facility] Address: [address] [place], [place] [address] Performed By: #### 2 4323-8, 42833-0, 2777-1, 3084-1 ####[facility] [id number] [address] [address] [place] Calcium [Mass/Vol] 8.5 mg/dL Normal 8.5-10.2 [facility] Comment on above: Order Comment: Speci men Type: BLOOD SPECIMENOrdering Facility: [facility] Address: [address] [place], [place] [address] Performed By: #### 2 4323-8, 05778-1, 2776-1, 3084-1 ####[facility] [id number] [place] [address] [place] Chloride [Moles/Vol] 101 mmol/L Normal 97-105 [facility] Comment on above: Order Comment: Speci men Type: BLOOD SPECIMENOrdering Facility: [facility] Address: [address] [place] [address] Performed By: #### 2 4323-8, 38563-9, 277-1, 3084-1 ####[facility] [id number] [address] [address] [place] CO2 [Moles/Vol] 24 mmol/L Normal 22-30 [facility] Comment on above: Order Comment: Speci men Type: BLOOD SPECIMENOrdering Facility: [facility] Address: [address] [place] [address] Performed By: #### 2 4323-8, 89357-6, 2776-1, 3084-1 ####[facility] [id number] [address] [address] [place] Creatinine [Mass/Vol] 0.67 mg/dL Normal 0.58-0.96 [facility] Comment on above: Order Comment: Speci men Type: BLOOD SPECIMENOrdering Facility: [facility] Address: [address] [place], [place] [address] Performed By: #### 2 4323-8, 32681-5, 2777-1, 3084-1 ####[facility] [id number] [place] [address] [place] Creatinine and Glomerular filtration rate.predicted panel (S/P/Bld) 88 mL/min/1.73m??? Normal >=60 [facility] Comment on above: Order Comment: Qi reynolds Type: BLOOD SPECIMENOrdering Facility: [facility] Address: [address] [place] [address] Result Comment: Akiko mated Glomerular Filtration Rate [...] actual GFR. Performed By: #### 2 4323-8, 83828-0, 2776-1, 3083-1 ####[facility] [id number] [place] [address] [place] Glucose [Mass/Vol] 103 mg/dL High 74-99 [facility] Comment on above: Order Comment: Qi reynolds Type: BLOOD SPECIMENOrdering Facility: [facility] Address: [address] [place] [address] Result Comment: The [place] Diabetes Association (ADA) provides guidance for cutoff [...] Standards of Medical Care in Diabetes 2016, [place] [employer] Association. Diabetes Care. 2016.39(Suppl 1). Performed By: #### 2 4323-8, 26667-8, 2777-1, 3084-1 ####[facility] [id number] [address] [address] [place] Potassium [Moles/Vol] 3.5 mmol/L Low 3.7-5.1 [facility] Comment on above: Order Comment: Speci men Type: BLOOD SPECIMENOrdering Facility: [facility] Address: [address] [place] [address] Performed By: #### 2 4323-8, 28831-6, 7-1, 3084-1 ####[facility] [id number] [place] [address] [place] Protein [Mass/Vol] 5.1 g/dL Low 6.3-8.0 [facility] Comment on above: Order Comment: Speci men Type: BLOOD SPECIMENOrdering Facility: [facility] Address: [address] [place] [address] Performed By: #### 2 4323-8, 55668-2, 277-1, 3084-1 ####[facility] [id number] [place] [address] [place] Sodium [Moles/Vol] 136 mmol/L Normal 136-144 [facility] Comment on above: Order Comment: Speci men Type: BLOOD SPECIMENOrdering Facility: [facility] Address: [address] [place] [address] Performed By: #### 2 4323-8, 69874-6, 2777-1, 3084-1 ####[facility] [id number] [place] [address] [place] Urea nitrogen [Mass/Vol] 13 mg/dL Normal 7-21 [facility] Comment on above: Order Comment: Speci men Type: BLOOD SPECIMENOrdering Facility: [facility] Address: [address] [place] [address] Performed By: #### 2 4323-8, 05621-3, 2777-1, 3084-1 ####[facility] [id number] [place] [address] [place] Fibrinogen PPP-mCncon 2023 Fibrinogen Coag (PPP) [Mass/Vol] 561 mg/dL High 200-400 [facility] Comment on above: Order Comment: Speci men Type: BLOOD SPECIMENOrdering Facility: [facility] Address: [address] [place] [address] Result Comment: Samp le checked for clot.Result rechecked. Performed By: #### 3 255-7, 25739-0, 02401-6 ####[facility] [id number] [place] [address] [place] MEDICAL EMERon 09-23-[address] [facility] Magnesium SerPl-ncon 09-22 Magnesium [Mass/Vol] 2.1 mg/dL Normal 1.7-2.3 [facility] Comment on above: Order Comment: Speci men Type: BLOOD SPECIMENOrdering Facility: [facility] Address: [address] [place] [address] Performed By: #### 2 4323-8, 01445-8, 2777-1, 3084-1 ####[facility] [id number] [place] [address] [place] NURSING PROGon 09-23-[address] [facility] PT panel Coag (PPP)on 2023 INR Coag (PPP) [Relative time] 1.4 {INR} High 0.9-1.3 [facility] Comment on above: Order Comment: Speci men Type: BLOOD SPECIMENOrdering Facility: [facility] Address: [address] [place] [address] Result Comment: Samp le checked for clot.Vitamin K Antagonist (VKA) Therapeutic Range: INR 2 to 3 (Target INR of 2.5)Note: For patients treated with VKA drugs, such as warfarin, the [place] [employer] 2012 Guideline recommends [...] al. Chest 2012, 141:7S-47SNishimura RA, et al. [facility] 2017, 70: 252-289 Performed By: #### 3 255-7, 69372-4, 48740-3 ####[facility] [id number] [place] [address] [place] PT Coag (PPP) [Time] 14.6 s High 9.7-13.0 [facility] Comment on above: Order Comment: Speci men Type: BLOOD SPECIMENOrdering Facility: [facility] Address: [address] [place] [address] Performed By: #### 3 255-7, 54016-0, 35019-2 ####[facility] [id number] [place] [address] [place] Phosphate SerPl-mCncon 09-22 Phosphate [Mass/Vol] 4.7 mg/dL Normal 2.7-4.8 [facility] Comment on above: Order Comment: Speci men Type: BLOOD SPECIMENOrdering Facility: [facility] Address: [address] [place] [address] Performed By: #### 2 4323-8, 44640-4, 2777-1, 3084-1 ####[facility] [id number] [place] [address] [place] Urate SerPl-mCncon 03-10-202 4 Urate [Mass/Vol] 2.8 mg/dL Normal 2.5-6.6 [facility] Comment on above: Order Comment: Speci men Type: BLOOD SPECIMENOrdering Facility: [facility] Address: [address] [place] [address] Performed By: #### 2 4323-8, 34935-5, 2777-1, 3084-1 ####[facility] [id number] [place] [address] [place] aPTT PPPon 09-23-2023 aPTT Coag (PPP) [Time] 37.3 s High 23.0-32.4 [facility] Comment on above: Order Comment: Speci men Type: BLOOD SPECIMENOrdering Facility: [facility] Address: [address] [place] [address] Performed By: #### 3 255-7, 46336-9, 36110-3 ####[facility] [id number] [place] [address] [place] Bacteria Bld Culton 09-22-19 24 Bacteria identified Cx Nom (Bld) CULTURE, BLOOD: No growth [address] [facility] Comment on above: Performed By: #### 6 00-7 ####[facility] [id number] [place] [address] [place] CBC W Auto Differential pane l (Bld)on 09-22-2023 Anisocytosis Ql (Bld) Present Normal [facility] Comment on above: Order Comment: Speci men Type: BLOOD SPECIMENOrdering Facility: [facility] Address: [address] [place] [address] Performed By: #### 5 7021-8 ####[facility] [id number] [place] [address] [place] Basophils (Bld) [#/Vol] 0.00 10*3/uL Normal <0.11 [facility] Comment on above: Order Comment: Speci men Type: BLOOD SPECIMENOrdering Facility: [facility] Address: [address] [place] [address] Performed By: #### 5 7021-8 ####[facility] [id number] [place] [address] [place] Basophils/100 WBC (Bld) 0.0 % Normal [facility] Comment on above: Order Comment: Speci men Type: BLOOD SPECIMENOrdering Facility: [facility] Address: [address] [place] [address] Performed By: #### 5 7021-8 ####[facility] [id number] [place] [address] [place] BLAST% 69.0 % High <=0.0 [facility] Comment on above: Order Comment: Speci men Type: BLOOD SPECIMENOrdering Facility: [facility] Address: [address] [place] [address] Performed By: #### 5 7021-8 ####[facility] [id number] [place] [address] [place] Dacrocytes LM Ql (Bld) Few Normal [facility] Comment on above: Order Comment: Speci men Type: BLOOD SPECIMENOrdering Facility: [facility] Address: [address] [place] [address] Performed By: #### 5 7021-8 ####[facility] [id number] [place] [address] [place] Differential cell count method Nom (Bld) Manual Normal [facility] Comment on above: Order Comment: Speci men Type: BLOOD SPECIMENOrdering Facility: [facility] Address: [address] [place] [address] Performed By: #### 5 7021-8 ####[facility] [id number] [place] [address] [place] Eosinophils (Bld) [#/Vol] 0.00 10*3/uL Normal <0.46 [facility] Comment on above: Order Comment: Speci men Type: BLOOD SPECIMENOrdering Facility: [facility] Address: [address] [place] [address] Performed By: #### 5 7021-8 ####[facility] [id number] [place] [address] [place] Eosinophils/100 WBC (Bld) 0.0 % Normal [facility] Comment on above: Order Comment: Speci men Type: BLOOD SPECIMENOrdering Facility: [facility] Address: [address] [place] [address] Performed By: #### 5 7021-8 ####[facility] [id number] [place] [address] [place] Erythrocyte distribution width (RBC) [Ratio] 22.0 % High 11.5-15.0 [facility] Comment on above: Order Comment: Speci men Type: BLOOD SPECIMENOrdering Facility: [facility] Address: [address] [place] [address] Performed By: #### 5 7021-8 ####[facility] [id number] [place] [address] [place] Hematocrit (Bld) [Volume fraction] 22.7 % Low 36.0-46.0 [facility] Comment on above: Order Comment: Speci men Type: BLOOD SPECIMENOrdering Facility: [facility] Address: [address] [place] [address] Performed By: #### 5 7021-8 ####[facility] [id number] [place] [address] [place] Hemoglobin (Bld) [Mass/Vol] 7.6 g/dL Low 11.5-15.5 [facility] Comment on above: Order Comment: Speci men Type: BLOOD SPECIMENOrdering Facility: [facility] Address: [address] [place] [address] Performed By: #### 5 7021-8 ####[facility] [id number] [place] [address] [place] Lymphocytes (Bld) [#/Vol] 1.43 10*3/uL Normal 1.00-4.00 [facility] Comment on above: Order Comment: Speci men Type: BLOOD SPECIMENOrdering Facility: [facility] Address: [address] [place] [address] Performed By: #### 5 7021-8 ####[facility] [id number] [place] [address] [place] Lymphocytes/100 WBC (Bld) 9.0 % Normal [facility] Comment on above: Order Comment: Speci men Type: BLOOD SPECIMENOrdering Facility: [facility] Address: [address] [place] [address] Performed By: #### 5 7021-8 ####[facility] [id number] [place] [address] [place] MCH (RBC) [Entitic mass] 31.4 pg Normal 26.0-34.0 [facility] Comment on above: Order Comment: Speci men Type: BLOOD SPECIMENOrdering Facility: [facility] Address: [address] [place] [address] Performed By: #### 5 7021-8 ####[facility] [id number] [place] [address] [place] MCHC (RBC) [Mass/Vol] 33.5 g/dL Normal 30.5-36.0 [facility] Comment on above: Order Comment: Speci men Type: BLOOD SPECIMENOrdering Facility: [facility] Address: [address] [place] [address] Performed By: #### 5 7021-8 ####[facility] [id number] [place] [address] [place] MCV (RBC) [Entitic vol] 93.8 fL Normal 80.0-100.0 [facility] Comment on above: Order Comment: Speci men Type: BLOOD SPECIMENOrdering Facility: [facility] Address: [address] [place] [address] Performed By: #### 5 7021-8 ####[facility] [id number] [place] [address] [place] Monocytes (Bld) [#/Vol] 0.16 10*3/uL Normal <0.87 [facility] Comment on above: Order Comment: Speci men Type: BLOOD SPECIMENOrdering Facility: [facility] Address: [address] [place] [address] Performed By: #### 5 7021-8 ####[facility] [id number] [place] [address] [place] Monocytes/100 WBC (Bld) 1.0 % Normal [facility] Comment on above: Order Comment: Speci men Type: BLOOD SPECIMENOrdering Facility: [facility] Address: [address] [place] [address] Performed By: #### 5 7021-8 ####[facility] [id number] [place] [address] [place] MYELO% 1.0 % Normal [facility] Comment on above: Order Comment: Speci men Type: BLOOD SPECIMENOrdering Facility: [facility] Address: [address] [place] [address] Performed By: #### 5 7021-8 ####[facility] [id number] [place] [address] [place] Neutrophils (Bld) [#/Vol] 3.18 10*3/uL Normal 1.45-7.50 [facility] Comment on above: Order Comment: Speci men Type: BLOOD SPECIMENOrdering Facility: [facility] Address: [address] [place] [address] Performed By: #### 5 7021-8 ####[facility] [id number] [place] [address] [place] Neutrophils/100 WBC (Bld) 20.0 % Normal [facility] Comment on above: Order Comment: Speci men Type: BLOOD SPECIMENOrdering Facility: [facility] Address: [address] [place] [address] Performed By: #### 5 7021-8 ####[facility] [id number] [place] [address] [place] Nucleated RBC (Bld) [#/Vol] 10*3/uL Normal <0.01 [facility] Comment on above: Order Comment: Speci men Type: BLOOD SPECIMENOrdering Facility: [facility] Address: [address] [place] [address] Performed By: #### 5 7021-8 ####[facility] [id number] [place] [address] [place] Nucleated RBC/100 WBC (Bld) [Ratio] 0.0 /[address] [facility] Comment on above: Order Comment: Speci men Type: BLOOD SPECIMENOrdering Facility: [facility] Address: [address] [place] [address] Performed By: #### 5 7021-8 ####[facility] [id number] [place] [address] [place] Ovalocytes LM Ql (Bld) Few Normal [facility] Comment on above: Order Comment: Speci men Type: BLOOD SPECIMENOrdering Facility: [facility] Address: [address] [place] [address] Performed By: #### 5 7021-8 ####[facility] [id number] [place] [address] [place] Platelet mean volume (Bld) [Entitic vol] Normal [facility] Comment on above: Order Comment: Speci men Type: BLOOD SPECIMENOrdering Facility: [facility] Address: [address] [place] [address] Result Comment: Unab le to Report. Performed By: #### 5 7021-8 ####[facility] [id number] [place] [address] [place] Platelets (Bld) [#/Vol] 10 10*3/uL Low 150-400 [facility] Comment on above: Order Comment: Speci men Type: BLOOD SPECIMENOrdering Facility: [facility] Address: [address] [place] [address] Result Comment: Resu lts checked and verified.No clot detected. Performed By: #### 5 7021-8 ####[facility] [id number] [place] [address] [place] Platelets Estimate (Bld) [#/Vol] Decreased Normal [facility] Comment on above: Order Comment: Speci men Type: BLOOD SPECIMENOrdering Facility: [facility] Address: [address] [place] [address] Performed By: #### 5 7021-8 ####[facility] [id number] [place] [address] [place] Polychromasia LM Ql (Bld) Slight Normal [facility] Comment on above: Order Comment: Speci men Type: BLOOD SPECIMENOrdering Facility: [facility] Address: [address] [place] [address] Performed By: #### 5 7021-8 ####[facility] [id number] [place] [address] [place] RBC (Bld) [#/Vol] 2.42 10*6/uL Low 3.90-5.20 [facility] Comment on above: Order Comment: Speci men Type: BLOOD SPECIMENOrdering Facility: [facility] Address: [address] [place] [address] Performed By: #### 5 7021-8 ####[facility] [id number] [place] [address] [place] RED CELL MORPH Reviewed: see result s of individual morphologies Normal [facility] Comment on above: Order Comment: Speci men Type: BLOOD SPECIMENOrdering Facility: [facility] Address: [address] [place] [address] Performed By: #### 5 7021-8 ####[facility] [id number] [place] [address] [place] WBC (Bld) [#/Vol] 15.91 10*3/uL High 3.70-11.00 [facility] Comment on above: Order Comment: Speci men Type: BLOOD SPECIMENOrdering Facility: [facility] Address: [address] [place] [address] Result Comment: Resu lts checked and verified.No clot detected. Performed By: #### 5 7021-8 ####[facility] [id number] [place] [address] [place] WBC Left Shift Ql (Bld) Present Normal [facility] Comment on above: Order Comment: Speci men Type: BLOOD SPECIMENOrdering Facility: [facility] Address: [address] [place] [address] Performed By: #### 5 7021-8 ####[facility] [id number] [place] [address] [place] Comprehensive metabolic 2000 panelon 09-22-2023 Albumin [Mass/Vol] 2.9 g/dL Low 3.9-4.9 [facility] Comment on above: Order Comment: Speci men Type: BLOOD SPECIMENOrdering Facility: [facility] Address: [address] [place] [address] Performed By: #### 2 4323-8, 58600-2, 2776-, 3083- ####[facility] [id number] [address] [address] [place] ALP [Catalytic activity/Vol] 60 U/L Normal 34-123 [facility] Comment on above: Order Comment: Speci men Type: BLOOD SPECIMENOrdering Facility: [facility] Address: [address] [place] [address] Performed By: #### 2 432-8, , 2776-, 3083- ####[facility]CLIA [id number] [place] [address] [place] ALT [Catalytic activity/Vol] 16 U/L Normal 7-38 [facility] Comment on above: Order Comment: Speci men Type: BLOOD SPECIMENOrdering Facility: [facility] Address: [address] [place] [address] Performed By: #### 2 4323-8, , 2776-, 308- ####[facility] LABIA [id number] [place] [id number] [place] Anion gap [Moles/Vol] 9 mmol/L Normal 9-18 [facility] Comment on above: Order Comment: Speci men Type: BLOOD SPECIMENOrdering Facility: [facility] Address: [address] [place] [address] Performed By: #### 2 4323-8, 63418-9, 2776-07, 308- ####[facility]CLIA [id number] [address] [address] [place] AST [Catalytic activity/Vol] 26 U/L Normal 13-35 [facility] Comment on above: Order Comment: Speci men Type: BLOOD SPECIMENOrdering Facility: [facility] Address: [address] [place] [address] Performed By: #### 2 4323-8, 30472-5, 2776-, 308-1 ####[facility] [id number] [address] [address] [place] Bilirubin [Mass/Vol] 0.4 mg/dL Normal 0.2-1.3 [facility] Comment on above: Order Comment: Speci men Type: BLOOD SPECIMENOrdering Facility: [facility] Address: [address] [place] [address] Performed By: #### 2 4323-8, 22990-3, 2776-07, 3083- ####[facility] LABCLIA [id number] [address] [address] [place] Calcium [Mass/Vol] 8.6 mg/dL Normal 8.5-10.2 [facility] Comment on above: Order Comment: Speci men Type: BLOOD SPECIMENOrdering Facility: [facility] Address: [address] [place] [address] Performed By: #### 2 4323-8, 13686-4, 2776-07, 3083- ####[facility] LABIA [id number] [address] [address] [place] Chloride [Moles/Vol] 104 mmol/L Normal 97-105 [facility] Comment on above: Order Comment: Speci men Type: BLOOD SPECIMENOrdering Facility: [facility] Address: [address] [place] [address] Performed By: #### 2 4323-8, 56591-0, 2776-07, 3083- ####[facility]CL[facility] [id number] [address] [address] [place] CO2 [Moles/Vol] 24 mmol/L Normal 22-30 [facility] Comment on above: Order Comment: Speci men Type: BLOOD SPECIMENOrdering Facility: [facility] Address: [address] [place] [address] Performed By: #### 2 4323-8, 30024-6, 2776-07, 3084-1 ####[facility]CL[facility] [id number] [address] [address] [place] Creatinine [Mass/Vol] 0.57 mg/dL Low 0.58-0.96 [facility] Comment on above: Order Comment: Qi reynolds Type: BLOOD SPECIMENOrdering Facility: [facility] Address: [address] [place] [address] Performed By: #### 2 4323-8, 82701-7, 2776-07, 3083-07 ####[facility]CLIA [id number] [place] [address] [place] Creatinine and Glomerular filtration rate.predicted panel (S/P/Bld) 91 mL/min/1.73m??? Normal >=60 [facility] Comment on above: Order Comment: Qi reynolds Type: BLOOD SPECIMENOrdering Facility: [facility] Address: [address] [place] [address] Result Comment: Akiko mated Glomerular Filtration Rate [...] actual GFR. Performed By: #### 2 4323-8, 65806-3, 2776-07, 3083-07 ####[facility]CLIA [id number] [place] [id number] [place] Glucose [Mass/Vol] 87 mg/dL Normal 74-99 [facility] Comment on above: Order Comment: Qi reynolds Type: BLOOD SPECIMENOrdering Facility: [facility] Address: [address] [place] [address] Result Comment: The [place] Diabetes Association (ADA) provides guidance for cutoff [...] Standards of Medical Care in Diabetes 2016, [place] [employer] Association. Diabetes Care. 2016.39(Suppl 1). Performed By: #### 2 4323-8, 88224-2, 2776-07, 3083- ####[facility]IA [id number] [address] [address] [place] Potassium [Moles/Vol] 3.5 mmol/L Low 3.7-5.1 [facility] Comment on above: Order Comment: Speci men Type: BLOOD SPECIMENOrdering Facility: [facility] Address: [address] [place] [address] Performed By: #### 2 4323-8, 95870-4, 2776-07, 3083-07 ####[facility] [id number] [place] [id number] [place] Protein [Mass/Vol] 5.1 g/dL Low 6.3-8.0 [facility] Comment on above: Order Comment: iQ reynolds Type: BLOOD SPECIMENOrdering Facility: [facility] Address: [address] [place], [place] [address] Performed By: #### 2 4323-8, 90276-7, 2776-07, 3083-07 ####[facility] [id number] [place] [id number] [place] Sodium [Moles/Vol] 137 mmol/L Normal 136-144 [facility] Comment on above: Order Comment: Nikkii men Type: BLOOD SPECIMENOrdering Facility: [facility] Address: [address] [place], [place] [address] Performed By: #### 2 4323-8, 95368-1, 2776-07, 3083-07 ####[facility]CLIA [id number] [place] [address] [place] Urea nitrogen [Mass/Vol] 8 mg/dL Normal 7-21 [facility] Comment on above: Order Comment: Speci men Type: BLOOD SPECIMENOrdering Facility: [facility] Address: [address] [place] [address] Performed By: #### 2 4323-8, 17186-8, 2776-07, 3083-07 ####[facility]CLIA [id number] [place] [address] [place] Fibrinogen PPP-mCncon 2023 Fibrinogen Coag (PPP) [Mass/Vol] 532 mg/dL High 200-400 [facility] Comment on above: Order Comment: Speci men Type: BLOOD SPECIMENOrdering Facility: [facility] Address: [address] [place] [address] Result Comment: Samp le checked for clot.Result rechecked. Performed By: #### 3 255-7, 27801-1, 69564-3 ####[facility]IA [id number] [place] [address] [place] MEDICAL EMERon 09-22-[address] [facility] Magnesium SerPl-mCncon 09-21 Magnesium [Mass/Vol] 1.9 mg/dL Normal 1.7-2.3 [facility] Comment on above: Order Comment: Speci men Type: BLOOD SPECIMENOrdering Facility: [facility] Address: [address] [place] [address] Performed By: #### 2 4323-8, 46179-4, 2776-07, 3083-07 ####[facility]CLIA [id number] [place] [id number] [place] PT panel Coag (PPP)on 2023 INR Coag (PPP) [Relative time] 1.4 {INR} High 0.9-1.3 [facility] Comment on above: Order Comment: Qi reynolds Type: BLOOD SPECIMENOrdering Facility: [facility] Address: [address] [place] [address] Result Comment: Clementine min K Antagonist (VKA) Therapeutic Range: INR 2 to 3 (Target INR of 2.5)Note: For patients treated with VKA drugs, such as warfarin, the [place] [employer] 2012 Guideline recommends [...] al. Chest 2012, 141:7S-47SNishimura RA, et al. [facility] 2017, 70: 252-289 Performed By: #### 3 255-7, 85292-4, 27640-8 ####[facility] [id number] [place] [address] [place] PT Coag (PPP) [Time] 14.9 s High 9.7-13.0 [facility] Comment on above: Order Comment: Qi reynolds Type: BLOOD SPECIMENOrdering Facility: [facility] Address: [address] [place] [address] Performed By: #### 3 255-7, 15010-7, 90627-4 ####[facility] [id number] [place] [address] [place] Phosphate SerPl-mCncon 09-21 Phosphate [Mass/Vol] 3.5 mg/dL Normal 2.7-4.8 [facility] Comment on above: Order Comment: Qi reynolds Type: BLOOD SPECIMENOrdering Facility: [facility] Address: [address] [place] [address] Performed By: #### 2 4323-8, 83165-0, 2777-1, 3084-1 ####[facility]CLIA [id number] [place] [address] [place] SEPSIS LACTATEon 09-22-2023 Lactate [Moles/Vol] 1.1 mmol/L Normal <=2.0 [facility] Comment on above: Order Comment: Speci men Type: BLOOD SPECIMENOrdering Facility: [facility] Address: [address] [place] [address] Performed By: #### S LACT ####[facility]CLIA [id number] [place] [address] [place] Urate SerPl-mCncon Urate [Mass/Vol] 2.7 mg/dL Normal 2.5-6.6 [facility] Comment on above: Order Comment: Speci men Type: BLOOD SPECIMENOrdering Facility: [facility] Address: [address] [place] [address] Performed By: #### 2 4323-8, 74424-9, 2777-1, 3084-1 ####[facility]CLIA [id number] [place] [address] [place] Urinalysis complete panel (U )on 09-22-2023 Bacteria LM.HPF (Urine sed) [#/Area] Negative Normal Negative [facility] Comment on above: Order Comment: Speci men Type: URINE SPECIMENOrdering Facility: [facility] Address: [address] [place] [address] Performed By: #### 2 4356-8 ####[facility]CLIA [id number] [place] [address] [place] Bilirubin Ql (U) Negative Normal Negative [facility] Comment on above: Order Comment: Speci men Type: URINE SPECIMENOrdering Facility: [facility] Address: [address] [place] [address] Performed By: #### 2 4356-8 ####[facility]CLIA [id number] [place] [address] [place] Clarity (Unsp spec) Clear Normal Clear [facility] Comment on above: Order Comment: Speci men Type: URINE SPECIMENOrdering Facility: [facility] Address: [address] [place] [address] Performed By: #### 2 4356-8 ####[facility]CLIA [id number] [place] [address] [place] Color (U) Yellow Normal Yellow [facility] Comment on above: Order Comment: Speci men Type: URINE SPECIMENOrdering Facility: [facility] Address: [address] [place] [address] Performed By: #### 2 4356-8 ####[facility]IA [id number] [place] [address] [place] Epithelial cells LM.HPF (Urine sed) [#/Area] Few Normal [facility] Comment on above: Order Comment: Speci men Type: URINE SPECIMENOrdering Facility: [facility] Address: [address] [place] [address] Performed By: #### 2 4356-8 ####[facility]IA [id number] [place] [address] [place] Glucose Test strip (U) [Mass/Vol] Negative Normal Negative [facility] Comment on above: Order Comment: Speci men Type: URINE SPECIMENOrdering Facility: [facility] Address: [address] [place] [address] Performed By: #### 2 4356-8 ####[facility]CLIA [id number] [place] [address] [place] Hemoglobin Ql (U) Negative Normal Negative [facility] Comment on above: Order Comment: Speci men Type: URINE SPECIMENOrdering Facility: [facility] Address: [address] [place] [address] Performed By: #### 2 4356-8 ####[facility]CLIA [id number] [place] [address] [place] Hyaline casts (Urine sed) [#/Area] 0 /[LPF] Normal 0 /LPF [facility] Comment on above: Order Comment: Speci men Type: URINE SPECIMENOrdering Facility: [facility] Address: [address] [place] [address] Performed By: #### 2 4356-8 ####[facility]CLIA [id number] [place] [address] [place] Ketones Ql (U) Trace Abnormal Negative [facility] Comment on above: Order Comment: Speci men Type: URINE SPECIMENOrdering Facility: [facility] Address: [address] [place] [address] Performed By: #### 2 4356-8 ####[facility]CLIA [id number] [place] [address] [place] Leukocyte esterase Test strip Ql (U) Trace Abnormal Negative [facility] Comment on above: Order Comment: Speci men Type: URINE SPECIMENOrdering Facility: [facility] Address: [address] [place] [address] Performed By: #### 2 4356-8 ####[facility]CL[facility] [id number] [place] [address] [place] Nitrite Ql (U) Negative Normal Negative [facility] Comment on above: Order Comment: Speci men Type: URINE SPECIMENOrdering Facility: [facility] Address: [address] [place] [address] Performed By: #### 2 4356-8 ####[facility]CLIA [id number] [place] [address] [place] pH (U) 6.0 [pH] Normal <8.5 [facility] Comment on above: Order Comment: Speci men Type: URINE SPECIMENOrdering Facility: [facility] Address: [address] [place] [address] Performed By: #### 2 4356-8 ####[facility]IA [id number] [place] [address] [place] Protein (U) [Mass/Vol] 1+ Abnormal Negative [facility] Comment on above: Order Comment: Speci men Type: URINE SPECIMENOrdering Facility: [facility] Address: [address] [place] [address] Performed By: #### 2 4356-8 ####[facility]IA [id number] [place] [address] [place] RBC LM.HPF (Urine sed) [#/Area] 0-2 /HPF Normal 0-2 /HPF [facility] Comment on above: Order Comment: Speci men Type: URINE SPECIMENOrdering Facility: [facility] Address: [address] [place] [address] Performed By: #### 2 4356-8 ####[facility]IA [id number] [place] [address] [place] Specific gravity (U) [Rel density] 1.020 Normal 1.005-1.030 [facility] Comment on above: Order Comment: Speci men Type: URINE SPECIMENOrdering Facility: [facility] Address: [address] [place] [address] Performed By: #### 2 4356-8 ####[facility]IA [id number] [place] [address] [place] Urobilinogen Ql (U) 1.0 EU/dL Normal 0.2-1.0 EU/dL [facility] Comment on above: Order Comment: Speci men Type: URINE SPECIMENOrdering Facility: [facility] Address: [address] [place] [address] Performed By: #### 2 4356-8 ####[facility]CLIA [id number] [place] [address] [place] WBC LM.HPF (Urine sed) [#/Area] 0-5 /HPF Normal 0-5 /HPF [facility] Comment on above: Order Comment: Speci men Type: URINE SPECIMENOrdering Facility: [facility] Address: [address] [place] [address] Performed By: #### 2 4356-8 ####[facility]IA [id number] [place] [address] [place] XR CHEST 1V FRONTAL PORTon 0 09-22-2023 XR CHEST 1V FRONTAL PORT Normal [facility] aPTT PPPon 09-22-2023 aPTT Coag (PPP) [Time] 37.3 s High 23.0-32.4 [facility] Comment on above: Order Comment: Speci men Type: BLOOD SPECIMENOrdering Facility: [facility] Address: [address] [place] [address] Performed By: #### 3 255-7, 88863-8, 97266-7 ####[facility]IA [id number] [place] [address] [place] ALLIED HEALTHon 09-21-[address] [facility] CBC W Auto Differential pane l (Bld)on 09-21-2023 Anisocytosis Ql (Bld) Present Normal [facility] Comment on above: Order Comment: Speci men Type: BLOOD SPECIMENOrdering Facility: [facility] Address: [address] [place] [address] Performed By: #### 5 7021-8 ####[facility]CLIA [id number] [place] [address] [place] Basophils (Bld) [#/Vol] 0.00 10*3/uL Normal <0.11 [facility] Comment on above: Order Comment: Speci men Type: BLOOD SPECIMENOrdering Facility: [facility] Address: [address] [place] [address] Performed By: #### 5 7021-8 ####[facility]CLIA [id number] [place] [address] [place] Basophils/100 WBC (Bld) 0.0 % Normal [facility] Comment on above: Order Comment: Speci men Type: BLOOD SPECIMENOrdering Facility: [facility] Address: [address] [place] [address] Performed By: #### 5 7021-8 ####[facility]CLIA [id number] [place] [address] [place] BLAST% 60.0 % High <=0.0 [facility] Comment on above: Order Comment: Speci men Type: BLOOD SPECIMENOrdering Facility: [facility] Address: [address] [place] [address] Performed By: #### 5 7021-8 ####[facility]CLIA [id number] [place] [address] [place] Differential cell count method Nom (Bld) Manual Normal [facility] Comment on above: Order Comment: Speci men Type: BLOOD SPECIMENOrdering Facility: [facility] Address: [address] [place] [address] Performed By: #### 5 7021-8 ####[facility]CL[facility] [id number] [place] [address] [place] Eosinophils (Bld) [#/Vol] 0.00 10*3/uL Normal <0.46 [facility] Comment on above: Order Comment: Speci men Type: BLOOD SPECIMENOrdering Facility: [facility] Address: [address] [place] [address] Performed By: #### 5 7021-8 ####[facility]CLIA [id number] [place] [address] [place] Eosinophils/100 WBC (Bld) 0.0 % Normal [facility] Comment on above: Order Comment: Speci men Type: BLOOD SPECIMENOrdering Facility: [facility] Address: [address] [place] [address] Performed By: #### 5 7021-8 ####[facility]CL[facility] [id number] [place] [address] [place] Erythrocyte distribution width (RBC) [Ratio] 22.7 % High 11.5-15.0 [facility] Comment on above: Order Comment: Speci men Type: BLOOD SPECIMENOrdering Facility: [facility] Address: [address] [place] [address] Performed By: #### 5 7021-8 ####[facility]CL[facility] [id number] [place] [address] [place] Hematocrit (Bld) [Volume fraction] 22.8 % Low 36.0-46.0 [facility] Comment on above: Order Comment: Speci men Type: BLOOD SPECIMENOrdering Facility: [facility] Address: [address] [place] [address] Performed By: #### 5 7021-8 ####[facility]CLIA [id number] [place] [address] [place] Hemoglobin (Bld) [Mass/Vol] 7.8 g/dL Low 11.5-15.5 [facility] Comment on above: Order Comment: Speci men Type: BLOOD SPECIMENOrdering Facility: [facility] Address: [address] [place] [address] Performed By: #### 5 7021-8 ####[facility]CLIA [id number] [place] [address] [place] Lymphocytes (Bld) [#/Vol] 2.74 10*3/uL Normal 1.00-4.00 [facility] Comment on above: Order Comment: Speci men Type: BLOOD SPECIMENOrdering Facility: [facility] Address: [address] [place] [address] Performed By: #### 5 7021-8 ####[facility]CL[facility] [id number] [place] [address] [place] Lymphocytes/100 WBC (Bld) 14.0 % Normal [facility] Comment on above: Order Comment: Speci men Type: BLOOD SPECIMENOrdering Facility: [facility] Address: [address] [place] [address] Performed By: #### 5 7021-8 ####[facility]CLIA [id number] [place] [address] [place] MCH (RBC) [Entitic mass] 31.7 pg Normal 26.0-34.0 [facility] Comment on above: Order Comment: Speci men Type: BLOOD SPECIMENOrdering Facility: [facility] Address: [address] [place] [address] Performed By: #### 5 7021-8 ####[facility] [id number] [place] [address] [place] MCHC (RBC) [Mass/Vol] 34.2 g/dL Normal 30.5-36.0 [facility] Comment on above: Order Comment: Speci men Type: BLOOD SPECIMENOrdering Facility: [facility] Address: [address] [place] [address] Performed By: #### 5 7021-8 ####[facility]CLIA [id number] [place] [address] [place] MCV (RBC) [Entitic vol] 92.7 fL Normal 80.0-100.0 [facility] Comment on above: Order Comment: Speci men Type: BLOOD SPECIMENOrdering Facility: [facility] Address: [address] [place] [address] Performed By: #### 5 7021-8 ####[facility]CLIA [id number] [place] [address] [place] Monocytes (Bld) [#/Vol] 0.78 10*3/uL Normal <0.87 [facility] Comment on above: Order Comment: Speci men Type: BLOOD SPECIMENOrdering Facility: [facility] Address: [address] [place] [address] Performed By: #### 5 7021-8 ####[facility]CLIA [id number] [place] [address] [place] Monocytes/100 WBC (Bld) 4.0 % Normal [facility] Comment on above: Order Comment: Speci men Type: BLOOD SPECIMENOrdering Facility: [facility] Address: [address] [place] [address] Performed By: #### 5 7021-8 ####[facility]CL[facility] [id number] [place] [address] [place] Neutrophils (Bld) [#/Vol] 4.31 10*3/uL Normal 1.45-7.50 [facility] Comment on above: Order Comment: Speci men Type: BLOOD SPECIMENOrdering Facility: [facility] Address: [address] [place] [address] Performed By: #### 5 7021-8 ####[facility]CL[facility] [id number] [place] [address] [place] Neutrophils/100 WBC (Bld) 22.0 % Normal [facility] Comment on above: Order Comment: Speci men Type: BLOOD SPECIMENOrdering Facility: [facility] Address: [address] [place] [address] Performed By: #### 5 7021-8 ####[facility] [id number] [place] [address] [place] Nucleated RBC (Bld) [#/Vol] 0.20 10*3/uL High <0.01 [facility] Comment on above: Order Comment: Speci men Type: BLOOD SPECIMENOrdering Facility: [facility] Address: [address] [place] [address] Performed By: #### 5 7021-8 ####[facility] [id number] [place] [address] [place] Nucleated RBC/100 WBC (Bld) [Ratio] 1.0 /[address] [facility] Comment on above: Order Comment: Speci men Type: BLOOD SPECIMENOrdering Facility: [facility] Address: [address] [place] [address] Performed By: #### 5 7021-8 ####[facility] [id number] [place] [address] [place] Ovalocytes LM Ql (Bld) Few Normal [facility] Comment on above: Order Comment: Speci men Type: BLOOD SPECIMENOrdering Facility: [facility] Address: [address] [place] [address] Performed By: #### 5 7021-8 ####[facility] [id number] [place] [address] [place] Platelet mean volume (Bld) [Entitic vol] 10.2 fL Normal 9.0-12.7 [facility] Comment on above: Order Comment: Speci men Type: BLOOD SPECIMENOrdering Facility: [facility] Address: [address] [place] [address] Performed By: #### 5 7021-8 ####[facility] [id number] [place] [address] [place] Platelets (Bld) [#/Vol] 10 10*3/uL Low 150-400 [facility] Comment on above: Order Comment: Speci men Type: BLOOD SPECIMENOrdering Facility: [facility] Address: [address] [place] [address] Result Comment: Resu lts checked and verified.No clot detected. Performed By: #### 5 7021-8 ####[facility]CLIA [id number] [address] [address] [place] Platelets Estimate (Bld) [#/Vol] Decreased Normal [facility] Comment on above: Order Comment: Speci men Type: BLOOD SPECIMENOrdering Facility: [facility] Address: [address] [place] [address] Performed By: #### 5 7021-8 ####[facility]CL[facility] [id number] [place] [address] [place] Polychromasia LM Ql (Bld) Slight Normal [facility] Comment on above: Order Comment: Speci men Type: BLOOD SPECIMENOrdering Facility: [facility] Address: [address] [place] [address] Performed By: #### 5 7021-8 ####[facility]CL[facility] [id number] [place] [address] [place] RBC (Bld) [#/Vol] 2.46 10*6/uL Low 3.90-5.20 [facility] Comment on above: Order Comment: Speci men Type: BLOOD SPECIMENOrdering Facility: [facility] Address: [address] [place] [address] Performed By: #### 5 7021-8 ####[facility] LABIA [id number] [place] [address] [place] RED CELL MORPH Reviewed: see result s of individual morphologies Normal [facility] Comment on above: Order Comment: Speci men Type: BLOOD SPECIMENOrdering Facility: [facility] Address: [address] [place] [address] Performed By: #### 5 7021-8 ####[facility] LABCLIA [id number] [place] [address] [place] WBC (Bld) [#/Vol] 19.58 10*3/uL High 3.70-11.00 [facility] Comment on above: Order Comment: Speci men Type: BLOOD SPECIMENOrdering Facility: [facility] Address: [address] [place] [address] Result Comment: Resu lts checked and verified.No clot detected. Performed By: #### 5 7021-8 ####[facility] LABCLIA [id number] [place] [address] [place] Comprehensive metabolic 2000 panelon 09-21-2023 Albumin [Mass/Vol] 2.9 g/dL Low 3.9-4.9 [facility] Comment on above: Order Comment: Speci men Type: BLOOD SPECIMENOrdering Facility: [facility] Address: [address] [place] [address] Performed By: #### 1 9123-9, 2777-1, 3084-1, 49399-4, 87903-4 ####[facility] [id number] [place] [address] [place] ALP [Catalytic activity/Vol] 59 U/L Normal 34-123 [facility] Comment on above: Order Comment: Speci men Type: BLOOD SPECIMENOrdering Facility: [facility] Address: [address] [place] [address] Performed By: #### 1 9123-9, 2777-1, 3084-1, 56987-6, 34811-6 ####[facility] [id number] [place] [id number] [place] ALT [Catalytic activity/Vol] 14 U/L Normal 7-38 [facility] Comment on above: Order Comment: Speci men Type: BLOOD SPECIMENOrdering Facility: [facility] Address: [address] [place] [address] Performed By: #### 1 9123-9, 2777-1, 3084-1, 93405-1, 65958-3 ####[facility] [id number] [place] [address] [place] Anion gap [Moles/Vol] 8 mmol/L Low 9-18 [facility] Comment on above: Order Comment: Speci men Type: BLOOD SPECIMENOrdering Facility: [facility] Address: [address] [place] [address] Performed By: #### 1 9123-9, 2777-1, 3084-1, 61449-3, 82281-2 ####[facility] LABCLIA [id number] [place] [address] [place] AST [Catalytic activity/Vol] 24 U/L Normal 13-35 [facility] Comment on above: Order Comment: Speci men Type: BLOOD SPECIMENOrdering Facility: [facility] Address: [address] [place] [address] Performed By: #### 1 9123-9, 2777-1, 3084-1, 08685-2, 13930-6 ####[facility] [id number] [place] [address] [place] Bilirubin [Mass/Vol] 0.4 mg/dL Normal 0.2-1.3 [facility] Comment on above: Order Comment: Speci men Type: BLOOD SPECIMENOrdering Facility: [facility] Address: [address] [place] [address] Performed By: #### 1 9123-9, 2777-1, 3084-1, 38492-9, 35810-4 ####[facility] LABCLIA [id number] [place] [address] [place] Calcium [Mass/Vol] 8.3 mg/dL Low 8.5-10.2 [facility] Comment on above: Order Comment: Speci men Type: BLOOD SPECIMENOrdering Facility: [facility] Address: [address] [place] [address] Performed By: #### 1 9123-9, 2777-1, 3084-1, 55745-3, 17390-3 ####[facility] LABCLIA [id number] [place] [address] [place] Chloride [Moles/Vol] 108 mmol/L High 97-105 [facility] Comment on above: Order Comment: Speci men Type: BLOOD SPECIMENOrdering Facility: [facility] Address: [address] [place] [address] Performed By: #### 1 9123-9, 2777-1, 3084-1, 52639-7, 66390-5 ####[facility] [id number] [place] [address] [place] CO2 [Moles/Vol] 22 mmol/L Normal 22-30 [facility] Comment on above: Order Comment: Speci men Type: BLOOD SPECIMENOrdering Facility: [facility] Address: [address] [place] [address] Performed By: #### 1 9123-9, 2777-1, 3084-1, 15209-8, 25197-5 ####[facility] [id number] [place] [address] [place] Creatinine [Mass/Vol] 0.58 mg/dL Normal 0.58-0.96 [facility] Comment on above: Order Comment: Speci men Type: BLOOD SPECIMENOrdering Facility: [facility] Address: [address] [place] [address] Performed By: #### 1 9123-9, 2777-1, 3084-1, 12172-8, 17290-9 ####[facility] [id number] [place] [id number] [place] Creatinine and Glomerular filtration rate.predicted panel (S/P/Bld) 91 mL/min/1.73m??? Normal >=60 [facility] Comment on above: Order Comment: Speci men Type: BLOOD SPECIMENOrdering Facility: [facility] Address: [address] [place] [address] Result Comment: Akiko mated Glomerular Filtration Rate [...] GFR. Performed By: #### 1 9123-9, 2777-1, 3084-1, 32936-5, 61658-4 ####[facility] LABCLIA [id number] [address] [address] [place] Glucose [Mass/Vol] 95 mg/dL Normal 74-99 [facility] Comment on above: Order Comment: Qi reynolds Type: BLOOD SPECIMENOrdering Facility: [facility] Address: [address] [place] [address] Result Comment: The [place] Diabetes Association (ADA) provides guidance for cutoff [...] Standards of Medical Care in Diabetes 2016, [place] Diabetes Association. Diabetes Care. 2016.39(Suppl 1). Performed By: #### 1 9123-9, 2777-1, 3084-1, 35145-6, 09829-1 ####[facility] [id number] [address] [address] [place] Potassium [Moles/Vol] 3.5 mmol/L Low 3.7-5.1 [facility] Comment on above: Order Comment: Qi reynolds Type: BLOOD SPECIMENOrdering Facility: [facility] Address: [address] [place] [address] Performed By: #### 1 9123-9, 2777-1, 3084-1, 13630-4, 99038-8 ####[facility] LABCLIA [id number] [place] [address] [place] Protein [Mass/Vol] 5.0 g/dL Low 6.3-8.0 [facility] Comment on above: Order Comment: Speci men Type: BLOOD SPECIMENOrdering Facility: [facility] Address: [address] [place] [address] Performed By: #### 1 9123-9, 2777-1, 3084-1, 73682-9, 93891-2 ####[facility] [id number] [place] [address] [place] Sodium [Moles/Vol] 138 mmol/L Normal 136-144 [facility] Comment on above: Order Comment: Speci men Type: BLOOD SPECIMENOrdering Facility: [facility] Address: [address] [place] [address] Performed By: #### 1 9123-9, 2777-1, 3084-1, 89768-8, 28859-1 ####[facility] [id number] [place] [address] [place] Urea nitrogen [Mass/Vol] 6 mg/dL Low 7-21 [facility] Comment on above: Order Comment: Speci men Type: BLOOD SPECIMENOrdering Facility: [facility] Address: [address] [place] [address] Performed By: #### 1 9123-9, 2777-1, 3084-1, 08008-9, 28868-6 ####[facility] [id number] [place] [address] [place] Fibrinogen PPP-mCncon 2023 Fibrinogen Coag (PPP) [Mass/Vol] 498 mg/dL High 200-400 [facility] Comment on above: Order Comment: Speci men Type: BLOOD SPECIMENOrdering Facility: [facility] Address: [address] [place] [address] Result Comment: No c lot detected.Checked and Verified\X09\ Performed By: #### 3 255-7, 62831-1, 27434-9 ####[facility] LABCLIA [id number] [place] [address] [place] [facility] Magnesium [Mass/Vol] 1.9 mg/dL Normal 1.7-2.3 [facility] Comment on above: Order Comment: Speci men Type: BLOOD SPECIMENOrdering Facility: [facility] Address: [address] [place] [address] Performed By: #### 1 9123-9, 2777-1, 3084-1, 42069-0, 90187-2 ####[facility] [id number] [place] [address] [place] NT-proBNP [facility] 09-20 Natriuretic peptide.B prohormone N-Terminal [Mass/Vol] 3228 pg/mL High <450 [facility] Comment on above: Order Comment: Speci men Type: BLOOD SPECIMENOrdering Facility: [facility] Address: [address] [place] [address] Performed By: #### 1 9123-9, 2777-1, 3084-1, 04058-3, 85369-6 ####[facility] [id number] [place] [address] [place] NUTRITIONon 09-21-[address] [facility] Outside Hospital Correspo ndenceon 09-21-2023 Outside Hospital Correspondence [id number]#1.00TIFF Normal [facility] PT panel Coag (PPP)on 2023 INR Coag (PPP) [Relative time] 1.3 {INR} Normal 0.9-1.3 [facility] Comment on above: Order Comment: Speci men Type: BLOOD SPECIMENOrdering Facility: [facility] Address: [address] [place] [address] Result Comment: Clementine min K Antagonist (VKA) Therapeutic Range: INR 2 to 3 (Target INR of 2.5)Note: For patients treated with VKA drugs, such as warfarin, the [place] [employer]icians 2012 Guideline recommends [...] of 3).Collins GH, et al. Chest 2012, 141:7S-47SNishimaspen RA, et al. [facility] 2017, 70: 252-289 Performed By: #### 3 255-7, 03244-5, 00364-6 ####[facility] [id number] [place] [address] [place] PT Coag (PPP) [Time] 14.0 s High 9.7-13.0 [facility] Comment on above: Order Comment: Qi reynolds Type: BLOOD SPECIMENOrdering Facility: [facility] Address: [address] [place] [address] Performed By: #### 3 255-7, 05422-3, 41757-1 ####[facility] [id number] [place] [address] [place] Phosphate SerPl-mCncon 09-20 Phosphate [Mass/Vol] 3.2 mg/dL Normal 2.7-4.8 [facility] Comment on above: Order Comment: Qi reynolds Type: BLOOD SPECIMENOrdering Facility: [facility] Address: [address] [place] [address] Performed By: #### 1 9123-9, 2777-1, 3084-1, 39719-2, 14460-9 ####[facility] LABCLIA [id number] [place] [id number] [place] Urate SerPl-mCncon Urate [Mass/Vol] 2.6 mg/dL Normal 2.5-6.6 [facility] Comment on above: Order Comment: Speci men Type: BLOOD SPECIMENOrdering Facility: [facility] Address: [address] [place] [address] Performed By: #### 1 9123-9, 2777-1, 3084-1, 62259-3, 32226-0 ####[facility] LABCLIA [id number] [address] [place] aPTT PPPon 09-21-2023 aPTT Coag (PPP) [Time] 37.5 s High 23.0-32.4 [facility] Comment on above: Order Comment: Speci men Type: BLOOD SPECIMENOrdering Facility: [facility] Address: [address] [place] [address] Performed By: #### 3 255-7, 95271-0, 58832-5 ####[facility] [id number] [address] [place] ACUTE LEUKEMIA NGS PANEL, BL OODon 09-20-2023 ACUTE LEUK NGS PANEL, BLOOD Normal [facility] Comment on above: Order Comment: Speci men Type: BLOOD SPECIMENOrdering Facility: [facility] Address: [address] [place] [address] Result Comment: Acut e Leukemia NGS Panel, BloodLaboratory Accession Number: [id number]:Please see linked document and/or separate report for full result whenavailable.As reviewed by Byron Ingram MD Performed By: #### H DPNGS, F3IP ####[facility] LIMSCLIA [id number] [address] [place] BLOOD BANK PLACEHOLDER, ANTI BODY INTERPRETATIONon 09-20-2023 BLOOD BANK REPORT, ANTIBODY INTERPRETATION See Pathology Report Normal [facility] Comment on above: Order Comment: Speci men Type: BLOOD SPECIMENOrdering Facility: [facility] Address: [address] [place] [address] Performed By: #### CARLY CASASR ####[facility] BLOOD BANKIA [id number] [address]#### BBRABI ####[facility]IA [id number] [address] BLOOD BANK REPORT, ANTIBODY INTERPRETATIONon 09-20-[address] [facility] Comment on above: Order Comment: Speci men Type: BLOOD SPECIMENOrdering Facility: [facility] Address: [address] [place] [address] Result Comment: No c linically significant common [...] hours for compatibility testing. Performed By: #### ELISA CASAS ####[facility] BLOOD BANKIA [id number] [address] [place]#### BBRABI ####[facility] [id number] [address] [place] BMT REC INIT W/Uon 4 ALLOGEN RESULTS TO FOLLOW See Allogen report to follow Normal [facility] Comment on above: Order Comment: Speci men Type: BLOOD SPECIMENOrdering Facility: [facility] Address: [address] [place] [address] Performed By: #### B MTRIW ####[facility] [id number] [place] [address] [place] CASE MGT INIT ASSESon 2023 CASE MGT INIT ASSES Normal [facility] CBC W Auto Differential pane l (Bld)on 09-20-2023 Anisocytosis Ql (Bld) Present Normal [facility] Comment on above: Order Comment: Speci men Type: BLOOD SPECIMENOrdering Facility: [facility] Address: [address] [place] [address] Performed By: #### 5 7021-8, [id number], 34357-8 ####[facility] LABCLIA [id number] [place] [address] [place] Basophils (Bld) [#/Vol] 0.23 10*3/uL High <0.11 [facility] Comment on above: Order Comment: Speci men Type: BLOOD SPECIMENOrdering Facility: [facility] Address: [address] [place] [address] Performed By: #### 5 7021-8, [id number], 42841-7 ####[facility] LABCLIA [id number] [place] [address] [place] Basophils/100 WBC (Bld) 1.0 % Normal [facility] Comment on above: Order Comment: Speci men Type: BLOOD SPECIMENOrdering Facility: [facility] Address: [address] [place] [address] Performed By: #### 5 7021-8, [id number], 19277-7 ####[facility] LABCLIA [id number] [place] [address] [place] BLAST% 74.0 % High <=0.0 [facility] Comment on above: Order Comment: Speci men Type: BLOOD SPECIMENOrdering Facility: [facility] Address: [address] [place] [address] Performed By: #### 5 7021-8, [id number], 34570-3 ####[facility] LABCLIA [id number] [place] [address] [place] Differential cell count method Nom (Bld) Manual Normal [facility] Comment on above: Order Comment: Speci men Type: BLOOD SPECIMENOrdering Facility: [facility] Address: [address] [place] [address] Performed By: #### 5 7021-8, [id number], 98026-4 ####[facility] LABCLIA [id number] [place] [address] [place] Eosinophils (Bld) [#/Vol] 0.00 10*3/uL Normal <0.46 [facility] Comment on above: Order Comment: Speci men Type: BLOOD SPECIMENOrdering Facility: [facility] Address: [address] [place] [address] Performed By: #### 5 7021-8, [id number], 70832-3 ####[facility] LABCLIA [id number] [place] [address] [place] Eosinophils/100 WBC (Bld) 0.0 % Normal [facility] Comment on above: Order Comment: Speci men Type: BLOOD SPECIMENOrdering Facility: [facility] Address: [address] [place] [address] Performed By: #### 5 7021-8, [id number], 49126-4 ####[facility] LABCLIA [id number] [place] [address] [place] Erythrocyte distribution width (RBC) [Ratio] 23.9 % High 11.5-15.0 [facility] Comment on above: Order Comment: Speci men Type: BLOOD SPECIMENOrdering Facility: [facility] Address: [address] [place] [address] Performed By: #### 5 7021-8, [id number], 28523-6 ####[facility] LABCLIA [id number] [address] [address] [place] Hematocrit (Bld) [Volume fraction] 23.5 % Low 36.0-46.0 [facility] Comment on above: Order Comment: Speci men Type: BLOOD SPECIMENOrdering Facility: [facility] Address: [address] [place] [address] Performed By: #### 5 7021-8, [id number], 99446-4 ####[facility] LABCLIA [id number] [place] [address] [place] Hemoglobin (Bld) [Mass/Vol] 8.0 g/dL Low 11.5-15.5 [facility] Comment on above: Order Comment: Speci men Type: BLOOD SPECIMENOrdering Facility: [facility] Address: [address] [place] [address] Performed By: #### 5 7021-8, [id number], 66176-9 ####[facility] LABCLIA [id number] [place] [address] [place] Lymphocytes (Bld) [#/Vol] 2.48 10*3/uL Normal 1.00-4.00 [facility] Comment on above: Order Comment: Speci men Type: BLOOD SPECIMENOrdering Facility: [facility] Address: [address] [place] [address] Performed By: #### 5 7021-8, [id number], 38647-7 ####[facility] LABCLIA [id number] [place] [address] [place] Lymphocytes/100 WBC (Bld) 11.0 % Normal [facility] Comment on above: Order Comment: Speci men Type: BLOOD SPECIMENOrdering Facility: [facility] Address: [address] [place] [address] Performed By: #### 5 7021-8, [id number], 44594-5 ####[facility] LABCLIA [id number] [place] [address] [place] MCH (RBC) [Entitic mass] 31.4 pg Normal 26.0-34.0 [facility] Comment on above: Order Comment: Speci men Type: BLOOD SPECIMENOrdering Facility: [facility] Address: [address] [place] [address] Performed By: #### 5 7021-8, [id number], 17148-2 ####[facility] LABCLIA [id number] [place] [address] [place] MCHC (RBC) [Mass/Vol] 34.0 g/dL Normal 30.5-36.0 [facility] Comment on above: Order Comment: Speci men Type: BLOOD SPECIMENOrdering Facility: [facility] Address: [address] [place] [address] Performed By: #### 5 7021-8, [id number], 65078-3 ####[facility]CLIA [id number] [place] [address] [place] MCV (RBC) [Entitic vol] 92.2 fL Normal 80.0-100.0 [facility] Comment on above: Order Comment: Speci men Type: BLOOD SPECIMENOrdering Facility: [facility] Address: [address] [place] [address] Performed By: #### 5 7021-8, [id number], 99094-2 ####[facility] LABCLIA [id number] [place] [address] [place] Monocytes (Bld) [#/Vol] 0.00 10*3/uL Normal <0.87 [facility] Comment on above: Order Comment: Speci men Type: BLOOD SPECIMENOrdering Facility: [facility] Address: [address] [place] [address] Performed By: #### 5 7021-8, [id number], 75895-6 ####[facility]CLIA [id number] [place] [address] [place] Monocytes/100 WBC (Bld) 0.0 % Normal [facility] Comment on above: Order Comment: Speci men Type: BLOOD SPECIMENOrdering Facility: [facility] Address: [address] [place] [address] Performed By: #### 5 7021-8, [id number], 31569-5 ####[facility] LABCLIA [id number] [place] [address] [place] Neutrophils (Bld) [#/Vol] 3.16 10*3/uL Normal 1.45-7.50 [facility] Comment on above: Order Comment: Speci men Type: BLOOD SPECIMENOrdering Facility: [facility] Address: [address] [place] [address] Performed By: #### 5 7021-8, [id number], 15893-1 ####[facility]CLIA [id number] [place] [address] [place] Neutrophils/100 WBC (Bld) 14.0 % Normal [facility] Comment on above: Order Comment: Speci men Type: BLOOD SPECIMENOrdering Facility: [facility] Address: [address] [place] [address] Performed By: #### 5 7021-8, [id number], 90444-2 ####[facility]CLIA [id number] [place] [address] [place] Nucleated RBC (Bld) [#/Vol] 10*3/uL Normal <0.01 [facility] Comment on above: Order Comment: Speci men Type: BLOOD SPECIMENOrdering Facility: [facility] Address: [address] [place] [address] Performed By: #### 5 7021-8, [id number], 23020-0 ####[facility]CLIA [id number] [place] [address] [place] Nucleated RBC/100 WBC (Bld) [Ratio] 0.0 /[address] [facility] Comment on above: Order Comment: Speci men Type: BLOOD SPECIMENOrdering Facility: [facility] Address: [address] [place] [address] Performed By: #### 5 7021-8, [id number], 26576-2 ####[facility]CLIA [id number] [place] [address] [place] Ovalocytes LM Ql (Bld) Few Normal [facility] Comment on above: Order Comment: Speci men Type: BLOOD SPECIMENOrdering Facility: [facility] Address: [address] [place] [address] Performed By: #### 5 7021-8, [id number], 93014-9 ####[facility]CLIA [id number] [place] [address] [place] Platelet mean volume (Bld) [Entitic vol] Normal [facility] Comment on above: Order Comment: Speci men Type: BLOOD SPECIMENOrdering Facility: [facility] Address: [address] [place] [address] Result Comment: Unab le to Report. Performed By: #### 5 7021-8, [id number], 03700-5 ####[facility]CLIA [id number] [place] [address] [place] Platelets (Bld) [#/Vol] 14 10*3/uL Low 150-400 [facility] Comment on above: Order Comment: Speci men Type: BLOOD SPECIMENOrdering Facility: [facility] Address: [address] [place] [address] Result Comment: No c lot detected.Results checked and verified. Performed By: #### 5 7021-8, [id number], [id number] ####[facility]CL[facility] [id number] [place] [address] [place] Platelets Estimate (Bld) [#/Vol] Decreased Normal [facility] Comment on above: Order Comment: Speci men Type: BLOOD SPECIMENOrdering Facility: [facility] Address: [address] [place] [address] Performed By: #### 5 7021-8, [id number], [id number] ####[facility] [id number] [place] [address] [place] RBC (Bld) [#/Vol] 2.55 10*6/uL Low 3.90-5.20 [facility] Comment on above: Order Comment: Speci men Type: BLOOD SPECIMENOrdering Facility: [facility] Address: [address] [place] [address] Performed By: #### 5 7021-8, [id number], 56092-8 ####[facility]CLIA [id number] [address] [place] [facility] MORPH Reviewed: see result s of individual morphologies Normal [facility] Comment on above: Order Comment: Speci men Type: BLOOD SPECIMENOrdering Facility: [facility] Address: [address] [place] [address] Performed By: #### 5 7021-8, [id number], 23381-4 ####[facility]CLIA [id number] [place] [address] [place] [facility] (Bld) [#/Vol] 22.55 10*3/uL High 3.70-11.00 [facility] Comment on above: Order Comment: Speci men Type: BLOOD SPECIMENOrdering Facility: [facility] Address: [address] [place] [address] Result Comment: No c lot detected.Results checked and verified. Performed By: #### 5 7021-8, [id number], 30650-6 ####[facility] LABCLIA [id number] [place] [address] [place] CHROM JAMIE LEUK BLDon 09-[address] [facility] Comment on above: Order Comment: Speci men Type: BLOOD SPECIMENOrdering Facility: [facility] Address: [address] [place] [address] Result Comment: Julio maria Accession Number: [id number]: Shazia SalehPathologist: N/ASurgical Pathology No: N/AClinical diagnosis: [...] of 20 cells analyzed,was characterized by the [place] chromosome, the product of atranslocation involving the [...] in rare cases in the literature [PMID: [id number], [id number]]. The complexity of the karyotype, including monosomy 7 andt(3;3) are unfavorable prognostic features., and adding tyrosinekinase inhibitor therapy may be of benefit.Clinical and pathologic correlation is recommended.As reviewed by Monty Andrade MDPerformed by [facility] CenterPathology and Laboratory Medicine InstituteDivision of Molecular PathologyCytogenetics Lab, [facility]-[id number] [place], [place] [address]Phone: Toll free: Performed By: #### C HRBLL ####CLARITY ILLUMINA LIMSCA [id number] [address] [place] CNPNon 09-20-[address] [facility] CONFIRM BLOOD TYPEon [address] [facility] Comment on above: Order Comment: Speci men Type: BLOOD SPECIMENOrdering Facility: [facility] Address: [address] [place] [address] Performed By: #### C ONABO ####CC [facility] BLOOD BANKIA [id number] [place] [address] [place] Rh Nom (Bld) Positive Normal [facility] Comment on above: Order Comment: Speci men Type: BLOOD SPECIMENOrdering Facility: [facility] Address: [address] [place] [address] Performed By: #### C ONABO ####CC [facility] BLOOD BANKIA [id number] [place] [address] [place] Comprehensive metabolic 2000 panelon 09-20-2023 Albumin [Mass/Vol] 3.1 g/dL Low 3.9-4.9 [facility] Comment on above: Order Comment: Speci men Type: BLOOD SPECIMENOrdering Facility: [facility] Address: [address] [place] [address] Performed By: #### 2 4323-8, 81641-2, 2776-, 3083- ####[facility] LABCLIA [id number] [address] [address] [place] ALP [Catalytic activity/Vol] 59 U/L Normal 34-123 [facility] Comment on above: Order Comment: Speci men Type: BLOOD SPECIMENOrdering Facility: [facility] Address: [address] [place] [address] Performed By: #### 2 432-8, 18553-4, 2776-, 3083- ####[facility] LABCLIA [id number] [place] [address] [place] ALT [Catalytic activity/Vol] 15 U/L Normal 7-38 [facility] Comment on above: Order Comment: Speci men Type: BLOOD SPECIMENOrdering Facility: [facility] Address: [address] [place] [address] Performed By: #### 2 432-8, , 2776-, 308- ####[facility] LABCLIA [id number] [place] [address] [place] Anion gap [Moles/Vol] 11 mmol/L Normal 9-18 [facility] Comment on above: Order Comment: Speci men Type: BLOOD SPECIMENOrdering Facility: [facility] Address: [address] [place] [address] Performed By: #### 2 4323-8, 38735-0, 2776-07, 308- ####[facility] LABCLIA [id number] [address] [address] [place] AST [Catalytic activity/Vol] 31 U/L Normal 13-35 [facility] Comment on above: Order Comment: Speci men Type: BLOOD SPECIMENOrdering Facility: [facility] Address: [address] [place] [address] Performed By: #### 2 4323-8, 33168-8, 2776-, 3083-07 ####[facility] LABCLIA [id number] [address] [address] [place] Bilirubin [Mass/Vol] 0.4 mg/dL Normal 0.2-1.3 [facility] Comment on above: Order Comment: Speci men Type: BLOOD SPECIMENOrdering Facility: [facility] Address: [address] [place] [address] Performed By: #### 2 4323-8, 99163-9, 2776-07, 3083-07 ####[facility] LABCLIA [id number] [place] [address] [place] Calcium [Mass/Vol] 8.1 mg/dL Low 8.5-10.2 [facility] Comment on above: Order Comment: Speci men Type: BLOOD SPECIMENOrdering Facility: [facility] Address: [address] [place] [address] Performed By: #### 2 4323-8, 00337-4, 2776-07, 3083-07 ####[facility] LABIA [id number] [place] [address] [place] Chloride [Moles/Vol] 107 mmol/L High 97-105 [facility] Comment on above: Order Comment: Speci men Type: BLOOD SPECIMENOrdering Facility: [facility] Address: [address] [place] [address] Performed By: #### 2 4323-8, 31897-5, 2776-07, 3083-07 ####[facility] LABCLIA [id number] [address] [address] [place] CO2 [Moles/Vol] 21 mmol/L Low 22-30 [facility] Comment on above: Order Comment: Speci men Type: BLOOD SPECIMENOrdering Facility: [facility] Address: [address] [place] [address] Performed By: #### 2 4323-8, 37702-1, 2776-07, 3083- ####[facility] LABCLIA [id number] [address] [address] [place] Creatinine [Mass/Vol] 0.60 mg/dL Normal 0.58-0.96 [facility] Comment on above: Order Comment: Qi reynolds Type: BLOOD SPECIMENOrdering Facility: [facility] Address: [address] [place] [address] Performed By: #### 2 4323-8, 61486-6, 2776-, 3083- ####[facility] LABCLIA [id number] [place] [address] [place] Creatinine and Glomerular filtration rate.predicted panel (S/P/Bld) 90 mL/min/1.73m??? Normal >=60 [facility] Comment on above: Order Comment: Qi reynolds Type: BLOOD SPECIMENOrdering Facility: [facility] Address: [address] [place] [address] Result Comment: Akiko mated Glomerular Filtration Rate [...] actual GFR. Performed By: #### 2 4323-8, 90257-8, 2776-07, 3083-07 ####[facility] LABCLIA [id number] [address] [address] [place] Glucose [Mass/Vol] 92 mg/dL Normal 74-99 [facility] Comment on above: Order Comment: Qi reynolds Type: BLOOD SPECIMENOrdering Facility: [facility] Address: [address] [place] [address] Result Comment: The [place] Diabetes Association (ADA) provides guidance for cutoff [...] Standards of Medical Care in Diabetes 2016, [place] Diabetes Association. Diabetes Care. 2016.39(Suppl 1). Performed By: #### 2 4323-8, 12953-0, 2776-, 3083- ####[facility] LABIA [id number] [address] [address] [place] Potassium [Moles/Vol] 3.9 mmol/L Normal 3.7-5.1 [facility] Comment on above: Order Comment: Qi reynolds Type: BLOOD SPECIMENOrdering Facility: [facility] Address: [address] [place] [address] Performed By: #### 2 4323-8, 93565-0, 2776-07, 3083-07 ####[facility] [id number] [place] [address] [place] Protein [Mass/Vol] 5.4 g/dL Low 6.3-8.0 [facility] Comment on above: Order Comment: Qi reynolds Type: BLOOD SPECIMENOrdering Facility: [facility] Address: [address] [place], [place] [address] Performed By: #### 2 4323-8, 73819-6, 2776-07, 3083-07 ####[facility] LAB[facility] [id number] [address] [address] [place] Sodium [Moles/Vol] 139 mmol/L Normal 136-144 [facility] Comment on above: Order Comment: Nikkii men Type: BLOOD SPECIMENOrdering Facility: [facility] Address: [address] [place] [address] Performed By: #### 2 4323-8, 57844-7, 2777-1, 3084-1 ####[facility] LABCLIA [id number] [place] [address] [place] Urea nitrogen [Mass/Vol] 8 mg/dL Normal 7-21 [facility] Comment on above: Order Comment: Qi reynolds Type: BLOOD SPECIMENOrdering Facility: [facility] Address: [address] [place] [address] Performed By: #### 2 4323-8, 78580-4, 2777-1, 3084-1 ####[facility] LABIA [id number] [place] [address] [place] ECG COMPLETEon 09-20-[address] [facility] FLOW CYTOMETRY FOR LEUKEMIA/ LYMPHOMA (FCLL) PERFORMABLEon 09-20-2023 FLOW CYTOMETRY ORDER STATUS See Results in chart under F case ID Normal [facility] Comment on above: Order Comment: Qi reynolds Type: BLOOD SPECIMENOrdering Facility: [facility] Address: [address] [place] [address] Performed By: #### F CLLP, FCLLRFLX ####[facility] LABIA [id number] [place] [address] [place] FLOW CYTOMETRY FOR LEUKEMIA/ LYMPHOMA (FCLL) REFLEXon 09-20-2023 DIAGNOSIS COMMENT Normal [facility] Comment on above: Order Comment: Qi reynolds Type: BLOOD SPECIMENOrdering Facility: [facility] Address: [address] [place] [address] Result Comment: This test was developed and its performance characteristics determined by [facility]'s Enoc JNelida [facility] Pathology and Laboratory Medicine [place] ([facility]). It has not been cleared or approved by the FDA. [facility] is regulated under CLIA as qualified to perform high-complexity testing. This test is used for clinical purposes. It should not be regarded as investigational or for research. Performed By: #### F CLLP, FCLLRFLX ####[facility] LABCLIA [id number] [address] [place] FINAL PERFORMING LAB Normal [facility] Comment on above: Order Comment: Speci men Type: BLOOD SPECIMENOrdering Facility: [facility] Address: [address] [place] [address] Result Comment: Diag nostic interpretation performed at [facility], [facility] [place] [address] CLIA# [id number] Director: Jordan García M.D. Performed By: #### F CLLP, FCLLRFLX ####[facility] LABCLIA [id number] [address] STATES [facility] FLOW CYTOMETRY RESULTS Normal [facility] Comment on above: Order Comment: Speci men Type: BLOOD SPECIMENOrdering Facility: [facility] Address: [address] [place] [address] Result Comment: Spec imen type: Peripheral bloodCBC [...] NegativeCD5 T-cells NegativeCD7 T/NK-cells PositiveCD8 T-cell subset GfcnbgmnFD91 B-cell subset QkcrhwywTY31x Myeloid VvwtncmxGX78 Myeloid Positive (subset)CD14 Monocytes LialwcwfBD14 Myeloid EfxdasukFT76 B-cells PtohktqnZC01 B-cells LognwvsxZP01 B-cells QtwvljqqML42 Myeloid Positive (minor subset)CD34 Blasts Positive (subset)CD38 Activation ZsixscveUT24 Can-leukocyte Positive (dim)CD56 T/NK-cells AwdkbyaxSV86 Myeloid TkrrfpquIM19 Myeloid DrgfmrdaDY700 Blasts Positive (subset)HLA-DR B-cells Positive (subset)MPO MarkersMarker Normal Cell Type Result (Blasts)cCD3 T-cells FaffnfqjwKR44 B-cells NegativeMPO Grans NegativeFlow cytometric analysis of [...] and B-cells (8%). Performed By: #### F CLLJAMES GraceRFLX ####[facility] LABCLIA [id number] [place] [address] [place] GROSS DESCRIPTION A. BLOOD Normal [facility] Comment on above: Order Comment: Specterrell reynolds Type: BLOOD SPECIMENOrdering Facility: [facility] Address: [address] [place] [address] Result Comment: RECE IVED 3 ML OF PERIPHERAL BLOOD IN EDTA Performed By: #### F DEBORAH ACEX ####[facility] LABCLIA [id number] [place] [address] [place] INTERPRETATION Normal [facility] Comment on above: Order Comment: Qi reynolds Type: BLOOD SPECIMENOrdering Facility: [facility] Address: [address] [place] [address] Result Comment: Thes e findings are consistent with involvement by an acute myeloid leukemia.Correlation with the clinical findings is suggested.MON/NB 09/20/2023 Performed By: #### F CLLP FCLLRFLX ####[facility] LABCLIA [id number] [place] [address] [place] FLT3 ITD HN PANEL BLOODon CLARITY SIGNOUT PATHOLOGIST [id number] Normal [facility] Comment on above: Order Comment: Speci men Type: BLOOD SPECIMENOrdering Facility: [facility] Address: [address] [place] [address] Performed By: #### H DPNGS, F3IP ####[facility] ILLUMINA LIMSCLIA [id number] [address] [place] FLT3 ITD HN PANEL BLOOD Normal [facility] Comment on above: Order Comment: Speci men Type: BLOOD SPECIMENOrdering Facility: [facility] Address: [address] [place] [address] Result Comment: FLT3 Internal Tandem Duplication (ITD) Mutation TestingLaboratory Accession Number: [id number] Internal Tandem Duplication (ITD) mutation: Not DetectedComment:FLT3/ITD [...] from the specimen provided. Regions of the JNS1pkdvpcqb kinase receptor gene are subjected to the [...] was developed and its performance characteristics determinedby [facility]'s [facility]icine [place] ([facility]). It has not been cleared or approved bythe FDA. -[facility] is regulated under CLIA as certified to perform high-complexity testing. This test is used for clinical purposes. It shouldnot be regarded as investigational or for research.Testing and interpretation performed at [facility], [address] [place] [address]. CLIA Number: [id number] reviewed by Maria A Doyle, PhD, [facility] Performed By: #### H DPNGS, F3IP ####[facility]AR[facility] ILLUMINA LIMSCLIA [id number] [place] [address] [place] Fibrinogen [facility] 2023 Fibrinogen Coag (PPP) [Mass/Vol] 476 mg/dL High 200-400 [facility] Comment on above: Order Comment: Speci men Type: BLOOD SPECIMENOrdering Facility: [facility] Address: [address] [place] [address] Result Comment: Maya queen checked for clot.Result rechecked. Performed By: #### 3 255-7, 12330-9, 41413-5 ####[facility] LABCLIA [id number] [place] [address] [place] HBV core Ab Ser Qlon 024 HBV core Ab Ql (S) Negative Normal Negative [facility] Comment on above: Order Comment: Speci men Type: BLOOD SPECIMENOrdering Facility: [facility] Address: [address] [place] [address] Result Comment: No e vidence of current or past infection with Hepatitis B virus. Should recent infection be suspected, repeat testing may be considered 3-4 weeks after this draw. Performed By: #### 1 6933-4, 5195-3, 53521-4, 78554-9 ####[facility] LABCLIA [id number] [place] [address] [place] HBV surface Ab Ql (S)on HBV surface Ab Qn (S) <8.[address] [facility] Comment on above: Order Comment: Speci men Type: BLOOD SPECIMENOrdering Facility: [facility] Address: [address] [place] [address] Result Comment: <8 m IU/mL: No serological evidence of immunity to Hepatitis B Virus.>/= 8 to <12 mIU/mL: No serological evidence of immunity to Hepatitis B Virus.>/= 12 mIU/mL: Consistent with serological evidence of immunity to Hepatitis B Virus. Performed By: #### 1 6933-4, 5195-3, 09580-2, 09539-4 ####[facility] LABCLIA [id number] [place] [address] [place] HBV surface Ab Ser Qlon HBV surface Ab Ql (S) Negative Normal [facility] Comment on above: Order Comment: Speci men Type: BLOOD SPECIMENOrdering Facility: [facility] Address: [address] [place] [address] Result Comment: No s erological evidence of immunity to Hepatitis B Virus. Performed By: #### 1 6933-4, 5195-3, 95015-0, 49496-4 ####[facility] LABCLIA [id number] [place] [address] [place] HBV surface Ag Ser Qlon 03-0 HBV surface Ag Ql (S) Negative Normal Negative [facility] Comment on above: Order Comment: Speci men Type: BLOOD SPECIMENOrdering Facility: [facility] Address: [address] [place] [address] Performed By: #### 1 6933-4, 5195-3, 21297-9, 24389-9 ####[facility] LABIA [id number] [place] [address] [place] HCV Ab Ser Qlon 09-20-2023 HCV Ab Ql (S) Negative Normal Negative [facility] Comment on above: Order Comment: Speci men Type: BLOOD SPECIMENOrdering Facility: [facility] Address: [address] [place] [address] Result Comment: The result suggests no evidence of active infection with Hepatitis C virus. Should recent infection be suspected, repeat testing may be considered 4-6 weeks after this draw. Performed By: #### 1 6128-1 ####[facility] LABIA [id number] [place] [address] [place] HISTORY PHYSICALon 4 HISTORY PHYSICAL Normal [facility] HIV 1+2 Ab IA Qlon 4 HIV 1 and 2 Ab IA.rapid Nom (S/P/Bld) Normal [facility] Comment on above: Order Comment: Speci men Type: BLOOD SPECIMENOrdering Facility: [facility] Address: [address] [place] [address] Result Comment: Test not indicated. Performed By: #### 1 6933-4, 5195-3, 74138-3, 86496-9 ####[facility] LABIA [id number] [place] [address] [place] HIV 1+2 Ab+HIV1 p24 Ag IA Ql Non-Reactive Normal Nonreactive [facility] Comment on above: Order Comment: Speci men Type: BLOOD SPECIMENOrdering Facility: [facility] Address: [address] [place] [address] Performed By: #### 1 6933-4, 5195-3, 11549-9, 28483-5 ####[facility] LABIA [id number] [place] [address] [place] HIV immunoassay testing algorithm interpretation (S/P/Bld) [Interp] Normal [facility] Comment on above: Order Comment: Speci men Type: BLOOD SPECIMENOrdering Facility: [facility] Address: [address] [place] [address] Result Comment: No e vidence of HIV-1 or HIV-2 infection. Should recent infection be suspected, repeat testing may be considered 2-3 weeks after this draw.[place] Rev. Code 3701.243(E): This information has been [...] test results or diagnoses. Performed By: #### 1 6933-4, 5195-3, 50696-9, 05938-2 ####[facility] LABIA [id number] [place] [address] [place] HbA1c (Bld)on 09-20-2023 Average glucose Estimated from glycated hemoglobin (Bld) [Mass/Vol] 103 mg/dL Normal [facility] Comment on above: Order Comment: Speci men Type: BLOOD SPECIMENOrdering Facility: [facility] Address: [address] [place] [address] Result Comment: eAG: (Estimated average glucose) is a calculated value from HgbA1c and is call center support representative of the average blood glucose level in the last 2-3 month period. Performed By: #### 5 7021-8, SKD5838, 27084-3 ####[facility] LABIA [id number] [place] [address] [place] HbA1c (Bld) [Mass fraction] 5.2 % Normal 4.3-5.6 [facility] Comment on above: Order Comment: Qi reynolds Type: BLOOD SPECIMENOrdering Facility: [facility] Address: [address] [place] [address] Result Comment: [place] Diabetes Association guidelines indicate that patients with HgbA1c in the range 5.7-6.4% are at increased risk for development of diabetes, and intervention by lifestyle modification may be beneficial. HgbA1c greater or equal to 6.5% is considered diagnostic of diabetes. Performed By: #### 5 7021-8, WKC5089, 48272-0 ####[facility] LABCLIA [id number] [place] [address] [place] LDH SerPl-cCncon 09-20-2023 LDH [Catalytic activity/Vol] 1496 U/L High 135-214 [facility] Comment on above: Order Comment: Qi reyonlds Type: BLOOD SPECIMENOrdering Facility: [facility] Address: [address] [place] [address] Performed By: #### 2 532-0 ####[facility] LABCLIA [id number] [place] [address] [place] Magnesium SerPl-mCncon 09-19 Magnesium [Mass/Vol] 1.8 mg/dL Normal 1.7-2.3 [facility] Comment on above: Order Comment: Qi reynolds Type: BLOOD SPECIMENOrdering Facility: [facility] Address: [address] [place] [address] Performed By: #### 2 4323-8, 50426-2, 2777-1, 3084-1 ####[facility] LABCLIA [id number] [place] [address] [place] PATH INTERP CBCDIF (LAB REFL EX ORDER-NO BILL)on 09-20-2023 Shank Breaker review Vish (Unsp spec) [Interp] Reviewed by Delilah Frost MD [facility] Comment on above: Order Comment: Qi reynolds Type: BLOOD SPECIMENOrdering Facility: [facility] Address: [address] [place] [address] Performed By: #### 5 7021-8, [id number], 20800-5 ####[facility] LABCLIA [id number] [address] [place] STAFF REVIEW, CBCDIF Normal [facility] Comment on above: Order Comment: Qi reynolds Type: BLOOD SPECIMENOrdering Facility: [facility] Address: [address] [place] [address] Result Comment: Cons istent with acute leukemia. Recommend correlation with bone marrow and flow cytometry results.Microcytic anemia suggestive of iron deficiency or anemia of chronic diseaseThrombocytopenia Performed By: #### 5 7021-8, TBA6390, 53735-0 ####[facility] LABCLIA [id number] [address] [place] PT panel Coag (PPP)on 2023 INR Coag (PPP) [Relative time] 1.4 {INR} High 0.9-1.3 [facility] Comment on above: Order Comment: Qi reynolds Type: BLOOD SPECIMENOrdering Facility: [facility] Address: [address] [place] [address] Result Comment: Clementine min K Antagonist (VKA) Therapeutic Range: INR 2 to 3 (Target INR of 2.5)Note: For patients treated with VKA drugs, such as warfarin, the [place] College [employer] Chest Physicians 2012 Guideline recommends [...] of 3).Collins HUTCHINS, et al. Chest 2012, 141:7S-47SNishimura RA, et al. [facility] 2017, 70: 252-289 Performed By: #### 3 255-7, 41751-2, 87929-1 ####[facility] LABCLIA [id number] [address] [address] [place] PT Coag (PPP) [Time] 14.5 s High 9.7-13.0 [facility] Comment on above: Order Comment: Speci men Type: BLOOD SPECIMENOrdering Facility: [facility] Address: [address] [place] [address] Performed By: #### 3 255-7, 81881-9, 56533-5 ####[facility] LABCLIA [id number] [place] [address] [place] Phosphate SerPl-mCncon 09-19 Phosphate [Mass/Vol] 2.7 mg/dL Normal 2.7-4.8 [facility] Comment on above: Order Comment: Speci men Type: BLOOD SPECIMENOrdering Facility: [facility] Address: [address] [place] [address] Performed By: #### 2 4323-8, 65316-7, 2777-1, 3084-1 ####[facility] LABCLIA [id number] [place] [address] [place] SOCIAL WORKon 09-20-[address] [facility] TYPE + SCREENon 09-20-2023 HISTORICAL AB SCR STATUS Negative Normal [facility] Comment on above: Order Comment: Speci men Type: BLOOD SPECIMENOrdering Facility: [facility] [facility] Address: [address] [place] [address] Performed By: #### B BABSAMANTHA, TSCR ####[facility] BLOOD BANKCLIA [id number] [place] [address] [place]#### BBRABI ####[facility] LABCLIA [id number] [place] TYPE AND SCREEN EXPIRATION 09/23/2023 23:[address] [facility] Comment on above: Order Comment: Speci men Type: BLOOD SPECIMENOrdering Facility: [facility] Address: [address] [place] [address] Performed By: #### B BABINT, TSCR ####[facility] BLOOD BANKCLIA [id number] [place] [address] [place]#### BBRABI ####[facility] LABCLIA [id number] [place] [address] [place] Urate SerPl-mCncon 4 Urate [Mass/Vol] 3.3 mg/dL Normal 2.5-6.6 [facility] Comment on above: Order Comment: Speci men Type: BLOOD SPECIMENOrdering Facility: [facility] Address: [address] [place] [address] Performed By: #### 2 4323-8, 93560-6, 2777-1, 3084-1 ####[facility] LABCLIA [id number] [place] [address] [place] Urinalysis complete panel (U )on 09-20-2023 Bacteria LM.HPF (Urine sed) [#/Area] Negative Normal Negative [facility] Comment on above: Order Comment: Speci men Type: URINE SPECIMENOrdering Facility: [facility] Address: [address] [place] [address] Performed By: #### 2 4356-8 ####[facility] LABCLIA [id number] [place] [address] [place] Bilirubin Ql (U) Negative Normal Negative [facility] Comment on above: Order Comment: Speci men Type: URINE SPECIMENOrdering Facility: [facility] Address: [address] [place] [address] Performed By: #### 2 4356-8 ####[facility] LABCLIA [id number] [place] [address] [place] Clarity (Unsp spec) Clear Normal Clear [facility] Comment on above: Order Comment: Speci men Type: URINE SPECIMENOrdering Facility: [facility] Address: [address] [place] [address] Performed By: #### 2 4356-8 ####[facility] LABCLIA [id number] [place] [address] [place] Color (U) Yellow Normal Yellow [facility] Comment on above: Order Comment: Speci men Type: URINE SPECIMENOrdering Facility: [facility] Address: [address] [place] [address] Performed By: #### 2 4356-8 ####[facility] LABCLIA [id number] [place] [address] [place] Epithelial cells LM.HPF (Urine sed) [#/Area] None Seen Normal [facility] Comment on above: Order Comment: Speci men Type: URINE SPECIMENOrdering Facility: [facility] Address: [address] [place] [address] Performed By: #### 2 4356-8 ####[facility] LABCLIA [id number] [place] [address] [place] Glucose Test strip (U) [Mass/Vol] Negative Normal Negative [facility] Comment on above: Order Comment: Speci men Type: URINE SPECIMENOrdering Facility: [facility] Address: [address] [place] [address] Performed By: #### 2 4356-8 ####[facility] LABCLIA [id number] [place] [address] [place] Hemoglobin Ql (U) Trace Abnormal Negative [facility] Comment on above: Order Comment: Speci men Type: URINE SPECIMENOrdering Facility: [facility] Address: [address] [place] [address] Performed By: #### 2 4356-8 ####[facility] LABCLIA [id number] [place] [address] [place] Hyaline casts (Urine sed) [#/Area] 0 /[LPF] Normal 0 /LPF [facility] Comment on above: Order Comment: Speci men Type: URINE SPECIMENOrdering Facility: [facility] Address: [address] [place] [address] Performed By: #### 2 4356-8 ####[facility] LABCLIA [id number] [place] [address] [place] Ketones Ql (U) Negative Normal Negative [facility] Comment on above: Order Comment: Speci men Type: URINE SPECIMENOrdering Facility: [facility] Address: [address] [place] [address] Performed By: #### 2 4356-8 ####[facility] LABCLIA [id number] [place] [address] [place] Leukocyte esterase Test strip Ql (U) Trace Abnormal Negative [facility] Comment on above: Order Comment: Speci men Type: URINE SPECIMENOrdering Facility: [facility] Address: [address] [place] [address] Performed By: #### 2 4356-8 ####[facility] LABCLIA [id number] [place] [address] [place] Nitrite Ql (U) Negative Normal Negative [facility] Comment on above: Order Comment: Speci men Type: URINE SPECIMENOrdering Facility: [facility] Address: [address] [place] [address] Performed By: #### 2 4356-8 ####[facility] LABCLIA [id number] [place] [address] [place] pH (U) 6.5 [pH] Normal <8.5 [facility] Comment on above: Order Comment: Speci men Type: URINE SPECIMENOrdering Facility: [facility] Address: [address] [place] [address] Performed By: #### 2 4356-8 ####[facility] LABCLIA [id number] [place] [address] [place] Protein (U) [Mass/Vol] Trace Abnormal Negative [facility] Comment on above: Order Comment: Speci men Type: URINE SPECIMENOrdering Facility: [facility] Address: [address] [place] [address] Performed By: #### 2 4356-8 ####[facility] LABIA [id number] [place] [address] [place] RBC LM.HPF (Urine sed) [#/Area] 0-2 /HPF Normal 0-2 /HPF [facility] Comment on above: Order Comment: Speci men Type: URINE SPECIMENOrdering Facility: [facility] Address: [address] [place] [address] Performed By: #### 2 4356-8 ####[facility] LABIA [id number] [place] [address] [place] Specific gravity (U) [Rel density] 1.014 Normal 1.005-1.030 [facility] Comment on above: Order Comment: Speci men Type: URINE SPECIMENOrdering Facility: [facility] Address: [address] [place] [address] Performed By: #### 2 4356-8 ####[facility] LABCLIA [id number] [place] [address] [place] Urobilinogen Ql (U) 1.0 EU/dL Normal 0.2-1.0 EU/dL [facility] Comment on above: Order Comment: Speci men Type: URINE SPECIMENOrdering Facility: [facility] Address: [address] [place] [address] Performed By: #### 2 4356-8 ####[facility] LABCLIA [id number] [place] [address] [place] WBC LM.HPF (Urine sed) [#/Area] 0-5 /HPF Normal 0-5 /HPF [facility] Comment on above: Order Comment: Speci men Type: URINE SPECIMENOrdering Facility: [facility] Address: [address] [place] [address] Performed By: #### 2 4356-8 ####[facility] [id number] [place] [address] [place] XR CHEST 2V FRONTAL/LATon XR CHEST 2V FRONTAL/LAT Normal [facility] aPTT PPPon 09-20-2023 aPTT Coag (PPP) [Time] 33.9 s High 23.0-32.4 [facility] Comment on above: Order Comment: Speci men Type: BLOOD SPECIMENOrdering Facility: [facility] Address: [address] [place] [address] Performed By: #### 3 255-7, 56899-6, 52358-8 ####[facility] [id number] [place] [address] [place] Ambulatory Visit Summaryon 0 09-18-2023 Ambulatory Visit Summary MYRNA SHEN :1940 Visit Date:09/18/2023 Ambulatory Visit Instructions Your Diagnosis BMI 28.0-28.9,adult Your Care Team Attending Physician - Darby Hamlin MD Primary Care Physician - Darby Hamlin MD This Is Your Medications List [facility] Prescription (Test strips) amlodipine (amLODIPine 5 mg [...] EST With: Boubacar VINCENT, Darby Garay Where: [facility] Medicine [place] Normal [facility] Medicine Office/Clini c Noteon 09-18-2023 Family Medicine [...] Problem List/Past Medical History Ongoing 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 Dehydration Hx of [...] (COVID-19) mRNA-1273 vaccine 08/20/2020 Recorded Normal Be [facility] Comment on above: Result Comment: Elec tronically Signed By: Boubacar VINCENT, Darby Goode.br\Date and Time Signed: 09/18/23 12:38 EST Leland 09-18-2023 L Specimen: Received: 09/18/23 Status: RADHA Req Num: [id number] Spec Type: Impression Subm Dr: Gladys,Lab Tissues: PATHPER Procedures: PATHREVIEW Age/ Patient Sex Location Account Attending Physician Myrna Shen 83/F [facility] [id number] NON STAFF SPEC NUM: RECD: 09/18/23 STATUS: RADHA REQ NUM: [id number] SYBIL: 09/18/[address]: Gladys,Lab ENTERED: 09/18/[address]: SPEC TYPE: Impression DEPT: TERRA Grace ENTERED BY: [id number] RECV BY: [id number] ORDERED: PATHREVIEW ORDERED: PATHREVIEW Pathologist Review Abnormal [...] observation at 3:20 PM on 09/18/2023 CPT: 68109 CBC No results available. Specimen: [id number] Received: 09/18/23 Status: RADHA Dempsey Num: [id number] Spec Type: Impression Subm Dr: Gladys,Lab Tissues: PATHPER Procedures: PATHREVIEW Patient: Myrna Shen [id number] (Continued) Signed (signature on file) James-Sen Casillas MD 09/18/23 1528 Normal [facility] Ambulatory Visit Summaryon 0 08-31-2023 [...] Hamlin MD This Is Your Medications List [facility] [place] (Test strips) amlodipine (amLODIPine 5 mg [...] PM EST With: Darby Hamlin MD Where: [facility] Ambulatory Visit Summary MYRNA SHEN :1940 Visit Date:08/31/2023 Ambulatory Visit Instructions Your Diagnosis Annual visit for general adult medical examination without abnormal findings Stage 3a chronic kidney disease (CKD) Your Care Team Attending Physician - Darby Hamlin MD. Primary Care Physician - Darby Hamlin MD [...] PM EST With: Darby Hamlin MD Where: [facility] Ambulatory Visit Summary MYRNA SHEN :1940 Visit [...] EST With: Boubacar VINCENT, Darby Garay Where: [facility] [place] Normal [facility] BMPon 08-31-2023 Anion gap [Moles/Vol] 10 mmol/L Normal -16 [facility] Comment on above: Performed By: #### 7 [id number], [id number], [id number] ####[facility] [address] [place] [address] BUN/Creat Ratio 20 No Units Normal 10-20 [facility] Comment on above: Performed By: #### 7 [id number], 5291464, [id number] ####[facility] [address] [place] [address] Calcium [Mass/Vol] 8.9 mg/dL Normal 8.9-11.1 [facility] Comment on above: Performed By: #### 7 [id number], 2972782, 86162583 ####[facility] [address] [place] [address] Chloride [Moles/Vol] 104 mmol/L Normal 101-111 [facility] Comment on above: Performed By: #### 7 [id number], 8998611, [id number] ####[facility] [address] [place] [address] CO2 [Moles/Vol] 29 mmol/L Normal 21-31 [facility] Comment on above: Performed By: #### 7 [id number], 3876952, 61277208 ####[facility] [address] [place] [address] Creatinine [Mass/Vol] 0.7 mg/dL Normal 0.5-1.3 [facility] Comment on above: Performed By: #### 7 [id number], 6808784, 31954134 ####[facility] [address] [place] [address] Glucose [Mass/Vol] 87 mg/dL Normal 55-199 [facility] Comment on above: Performed By: #### 7 33668972, 1186006, 10651198 ####[facility] [address] [place] [address] Potassium [Moles/Vol] 4.0 mmol/L Normal 3.5-5.3 [facility] Comment on above: Performed By: #### 7 [id number], 7780659, 23154688 ####[facility] [address] [place] [address] Sodium [Moles/Vol] 139 mmol/L Normal 135-145 [facility] Comment on above: Performed By: #### 7 06748880, 3262343, 78493117 ####[facility] [address] [place] [address] Urea nitrogen [Mass/Vol] 14 mg/dL Normal 5-21 [facility] Comment on above: Performed By: #### 7 73524042, 9315240, 50549700 ####[facility] [address] [place] [address] CHEMISTRYOrdered By: Tree Jaramillo on 08-31-2023 U [...] (Bld) [Mass fraction] 5.0 % Normal <=5.9% [facility] ChemAutoSS Family Medicine Office/Clini c Noteon 08-31-2023 [...] of clutter to prevent tripping and/or falling. [place] Advance Directives reviewed, has at home. Patient [...] PCP visit. Will have labs completed with [facility]. Colonoscopy, never completed, aged out. Mammogram aged [...] doctor and (more content not included)... Normal [facility] Comment on above: Result Comment: Elec tronically Signed By: Aurea Perez\.br\Date and Time Signed: 08/31/23 14:19 EST\.br\Electronically Co-Signed By: Yordy James\.br\Date and Time Co-Signed: 08/31/23 13:39 EST [id number] 08-31-2023 HbA1c (Bld) [Mass fraction] 5.0 % Normal <=5.9 [facility] Comment on above: Performed By: #### 7 [id number], 6408563, 97300960 ####[facility] [address] [place] [address] Patient Educationon 08-31-19 Patient Education Cardiovascular Atrial [...] signals of the heart. ? An ambulatory deliver driver to record your heart's activity for a [...] Trouble breathing. (more content not included)... Normal [facility] Screenson 08-31-2023 Screens [id number] Normal [facility] U Microalbon 08-31-2023 U Microalb <2.0 Normal 0.0-19.0 [facility] Comment on above: Performed By: #### 1 [id number], [id number] ####[facility] [address] [place] [address] U Protein/Creat Ratioon 08-16 U Creatinine 32.3 mg/dL Invalid Interpretation Code [facility] Comment on above: Performed By: #### 1 [id number], [id number] ####[facility] [address] [place] [address] U Prot/Creat Ratio NOT CALCULATED Invalid Interpretation Code .00-200.00 [facility] Comment on above: Performed By: #### 1 [id number], [id number] ####[facility] [address] [place] [address] Ur Total Protein <6.0 Invalid Interpretation Code [facility] Comment on above: Performed By: #### 1 8244946, [id number] ####[facility] [address] [place] [address] eGFRon 08-31-2023 eGFR 87 mL/min/1.73 m2 Normal >=59 [facility] Comment on above: Order Comment: Order added by Discern Expert. Performed By: #### 7 [id number], 6892736, [id number] ####[facility] [address] [facility] [place] [address] Office Visiton 04-27-2023 Follow-up visit [id number] Angélica Shen 1940 F Date Provider Department Center 04/27/2023 LEXI VILLALTA SAUD [facility] Family History Problem Relation Age of Onset Coronary artery disease Mother Diabetes Mother Alcohol abuse Father Family Status - Relation Status Age at Mother Father Level of Service:14312 MO OFFICE/OUTPATIENT ESTABLISHED LOW MDM 20-29 MIN Reason for Visit and Comments: Follow-up [457796] Normal [facility] Office Visiton 03-02-2023 Follow-up visit [id number] Angélica Shen 1940 F Date Provider Department Center 03/02/2023 LEXI VILLALTA SAUD [facility] Family History Problem Relation Age of Onset Coronary artery disease Mother Diabetes Mother Alcohol abuse Father Family Status - Relation Status Age at Mother Father Level of Service:17881 MO OFFICE/OUTPATIENT ESTABLISHED MOD MDM 30-39 MIN Reason for Visit and Comments: Follow-up [620304] Normal [facility] Family Medicine Office/Clini c Noteon [...] Last A1C: .8% 12/12/22 Last Chronic Labs: bmp 12/19/22 questions/concerns: none doing 80 mg of [...] is very susceptible to virus. The first record changer she was evaluated by suspected bug bites from bugs in her house. She was going to her record changer for over a year. She states that she experimented with at least 12 to 20 different kinds of lotions, potions, oils, medicines, and biopsies. She states that nothing never showed. She states that one biopsy said that she may be allergic to one of her medications. They discontinued her spironolactone. Myrna endorses benefit with steroids. She has stopped going to the record changer. Review of Systems PHQ Score Initial Depression [...] with voice recognition artificial intelligence software, specifically As Seen on TV, ClrTouch and or Planwise. Substitutions may have occurred due to the inherent limitations of voice recognition and artificial intelligence software. ATTESTATION: Documentation services were performed after patient or guardian consented to allow [employer] to record this visit. LETTY client solutions specialist and provider reviewed before signing. 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 Normal [facility] Comment on above: Result Comment: Elec tronically [...] 25 mg Tab) potassium chloride (Potassium Chloride (Kbc-Bilf-Akl M20) 20 mEq oral tablet, extended release) Procedures Performed CABG - Coronary artery bypass graft. Discharge Vitals Heart Rate (Peripheral) 66 Respiratory Rate 16 Blood Pressure 140/74 Height 162 cm Height 64 in Weight 82.1 kg Weight 180.62 lb BMI 31.28 What to do next Scheduled Follow-Up Appointments Sunday 1:20 PM EDT With: Darby Hamlin MD Where: [facility] [address] [place] [address]- \.br\ Medications\.br\ What How Much When Instructions\.br \ Changed furosemide (furosemide 40 mg Tab) 1 Tablets By Mouth 2 times a day Pickup at [facility] [id number]\.br\ Unchanged amiodarone (amiodarone 200 mg Tab) 1 [...] concerns \.br\ Unchanged potassium chloride (Potassium Chloride (Pxf-Pcfm-Vxu M20) 20 mEq oral tablet, extended release) 1 Tablets By Mouth once daily or twice daily when taking an additional furosemide Contact prescribing physician if questions or concerns \.br\ Pharmacy Information\.br\ [facility] [id number]: [address] [place] [id number] [phone]\.br\ Allergies\.br\ spironolactone (Rash)\.br\ Vitamin C (Unknown)\.br\ Problems\.br\ Ongoing - Any problem that you are currently receiving treatment for.\.br\ 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\.br\ Hx of melanoma of skin\.br\ Hypercholesterol emia\.br\ Neurodermatitis\ .br\ Paroxysmal atrial fibrillation\.br \ Spinal stenosis in cervical region\.br\ Stage 3a chronic kidney disease (CKD)\.br\ Stasis dermatitis\.br\ Uncontrolled type 2 diabetes mellitus with hyperglycemia\.b r\ \.br\ [facility] BMPon 12-19-2022 Anion gap [Moles/Vol] 12 mmol/L Normal 6-16 [facility] Comment on above: Performed By: #### 2 [id number], [id number] ####[facility] [address] [place] [address] Calcium [Mass/Vol] 9.1 mg/dL Normal 8.9-11.1 [facility] Comment on above: Performed By: #### 2 632663, [id number] ####[facility] [address] [place] [address] Chloride [Moles/Vol] 106 mmol/L Normal 101-111 [facility] Comment on above: Performed By: #### 2 664431, 69673230 ####[facility] [address] [place] [address] CO2 [Moles/Vol] 25 mmol/L Normal 21-31 [facility] Comment on above: Performed By: #### 2 412469, 75598715 ####[facility] [address] [place] [address] Creatinine [Mass/Vol] 0.8 mg/dL Normal 0.5-1.3 [facility] Comment on above: Performed By: #### 2 662198, [id number] ####[facility] [address] [place] [address] Glucose [Mass/Vol] 162 mg/dL Normal 55-199 [facility] Comment on above: Result Comment: If t his glucose result represents a fasting glucose, interpretation should refer to the following reference range: 55-99 mg/dL Performed By: #### 2 281166, [id number] ####[facility] [address] [place] [address] Potassium [Moles/Vol] 4.3 mmol/L Normal 3.5-5.3 [facility] Comment on above: Performed By: #### 2 616651, [id number] ####[facility] [address] [place] [address] Sodium [Moles/Vol] 139 mmol/L Normal 135-145 [facility] Comment on above: Performed By: #### 2 137627, [id number] ####[facility] [address] [place] [address] Urea nitrogen [Mass/Vol] 19 mg/dL Normal 5-21 [facility] Comment on above: Performed By: #### 2 479552, [id number] ####[facility] [address] [place] [address] Urea nitrogen/Creatinin e [Mass ratio] 24 No Units High 10-20 [facility] Comment on above: Performed By: #### 2 330785, [id number] ####[facility] [address] [place] [address] CHEMISTRYOrdered By: SYSTEM SYSTEM on 12-19-2022 Anion gap [Moles/Vol] 12 mmol/L Normal 6 - 16 mEq/L [facility] Remisol Calcium [Mass/Vol] 9.1 mg/dL Normal 8.9 - 11.1 mg/dL [facility] Remisol Chloride [Moles/Vol] 106 mmol/L Normal 101 - 111 mmol/L [facility] Remisol CO2 [Moles/Vol] 25 mmol/L Normal 21 - 31 mmol/L [facility] Remisol Creatinine [Mass/Vol] 0.8 mg/dL Normal 0.5 - 1.3 mg/dL [facility] Remisol GFR/1.73 sq M.predicted among non-blacks MDRD (S/P/Bld) [Vol rate/Area] 74 mL/min/1.73 m2 Normal >=59mL/min/1.73 m2 [facility] Chem S Glucose [Mass/Vol] 162 mg/dL Normal 55 - 199 mg/dL [facility] Remisol Potassium [Moles/Vol] 4.3 mmol/L Normal 3.5 - 5.3 mmol/L [facility] Remisol Sodium [Moles/Vol] 139 mmol/L Normal 135 - 145 mmol/L [facility] Remisol Urea nitrogen [Mass/Vol] 19 mg/dL Normal 5 - 21 mg/dL [facility] Remisol Urea nitrogen/Creatinin e [Mass ratio] 24 mg/mg High 10 - 20 [facility] Remisol Nurse Consultation Noteon Nurse Consultation Note [...] mg= 1 tab(s), Oral, BID Potassium Chloride (Xqi-Tgks-Imc M20) 20 mEq oral tablet, extended release, 20 mEq= 1 tab(s), Oral Allergies spironolactone (Rash) Vitamin C (Unknown) Immunizations Vaccine Date Status SARS-CoV-2 (COVID-19) mRNA-1273 vaccine 09/17/2020 Recorded SARS-CoV-2 (COVID-19) mRNA-1273 vaccine 08/20/2020 Recorded Normal [facility] eGFRon 12-19-2022 GFR/1.73 sq M.predicted among non-blacks MDRD (S/P/Bld) [Vol rate/Area] 74 mL/min/1.73 m2 Normal >=59 [facility] Comment on above: Order Comment: Order added by Discern Expert. Result Comment: Mine Utility Operator radha kidney disease could be indicated at eGFR's of less than 60 mL/min/1.73m2. Kidney failure is indicated at less than 15 mL/min/1.73m2. Performed By: #### 2 [id number], [id number] ####[facility] [address] [place] [address] Transfer Inon 12-14-2022 Transfer In [id number]:12 7 Normal [facility] Medicine Office/Clini c Noteon 12-13-2022 Family Medicine [...] COVID-19. She had an appointment with a passenger barge master in the past, but she canceled due [...] mg/dL. She has an appointment with her thin film technician Dr. Zapata on 01/02/2023 for A-fib. Review [...] that she was being seen for before me. At this time, we will recheck potassium [...] Malachi Hassan to record this visit. LETTY client solutions specialist and provider reviewed before signing. 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 Normal [facility] Comment on above: Result Comment: Elec tronically Signed By: Darby Hamlin MD\.br\Date and Time Signed: 12/13/22 15:45 EDT\.br\Electronically Co-Signed By: Norris Osborne\.br\Date and Time Co-Signed: 12/12/22 16:38 EDT Physician Referralon 023 Physician Referral [id number]:1 27 Normal [facility] CHEMISTRYOrdered By: SYSTEM SYSTEM on 12-12-2022 Albumin [...] Normal 6 - 16 mEq/L [facility] Remisol AST [Catalytic activity/Vol] 20 [iU]/d Normal [...] rate/Area] 46 mL/min/1.73 m2 Low >=59mL/min/1.73 m2 [facility] Chem S Globulin (S) [Mass/Vol] 3.0 g/dL Normal 1.4 - 4.0 gm/dL [facility] Remisol Glucose [Mass/Vol] 131 mg/dL Normal 55 - 199 mg/dL [facility] Remisol Potassium [Moles/Vol] 4.4 mmol/L Normal 3.5 - 5.3 mmol/L [facility] Remisol Protein [Mass/Vol] 7.3 g/dL Normal 6.0 - 7.8 gm/dL [facility] Remisol Sodium [Moles/Vol] 139 mmol/L Normal 135 - 145 mmol/L [facility] Remisol Urea nitrogen [Mass/Vol] 18 mg/dL Normal 5 - 21 mg/dL [facility] Remisol Urea nitrogen/Creatinin e [Mass ratio] 15 mg/mg Normal 10 - 20 [facility] Remisol CHEMISTRYOrdered By: Andreia Maria on 12-12-2022 HbA1c (Bld) [Mass fraction] 6.8 % High <=5.9% [facility] ChemAutoSS CMPon 12-12-2022 Anion gap [Moles/Vol] 12 mmol/L Normal 6-16 [facility] Comment on above: Performed By: #### 2 [id number], [id number], [id number] ####[facility] [address] [place] [address] Calcium [Mass/Vol] 9.4 mg/dL Normal 8.9-11.1 [facility] Comment on above: Performed By: #### 2 701267, [id number], [id number] ####[facility] [address] [place] [address] Chloride [Moles/Vol] 104 mmol/L Normal 101-111 [facility] Comment on above: Performed By: #### 2 666949, [id number], [id number] ####[facility] [address] [place] [place] [address] CO2 [Moles/Vol] 27 mmol/L Normal 21-31 [facility] Comment on above: Performed By: #### 2 078377, [id number], [id number] ####[facility] [address] [facility] [place] [facility] [place] [address] Glucose [Mass/Vol] 131 mg/dL Normal 55-199 [facility] Comment on above: Result Comment: If t his glucose result represents a fasting glucose, interpretation should refer to the following reference range: 55-99 mg/dL Performed By: #### 2 712366, [id number], [id number] ####[facility] [address] [place] [address] Potassium [Moles/Vol] 4.4 mmol/L Normal 3.5-5.3 [facility] Comment on above: Performed By: #### 2 732348, [id number], [id number] ####[facility] [address] [place] [address] Sodium [Moles/Vol] 139 mmol/L Normal 135-145 [facility] Comment on above: Performed By: #### 2 853204, [id number], [id number] ####[facility] [address] [place] [address] Albumin [Mass/Vol] 4.3 g/dL Normal 3.3-5.0 [facility] Comment on above: Performed By: #### 2 885064, [id number], [id number] ####[facility] [address] [facility] [place] [address] Albumin/Globulin (S) [Mass conc ratio] 1.4 Normal 1.1-2.2 [facility] Comment on above: Performed By: #### 2 399754, [id number], [id number] ####[facility] [address] [place] [address] ALP [Catalytic activity/Vol] 74 Int._Unit/L Normal 21-98 [facility] Comment on above: Performed By: #### 2 176539, [id number], [id number] ####[address] [address] ALT No additional P-5'-P [Catalytic activity/Vol] 22 Int._Unit/L Normal 6-46 [facility] Comment on above: Performed By: #### 2 072857, [id number], [id number] ####[facility] [address] [place] [address] AST [Catalytic activity/Vol] 20 Int._Unit/L Normal 5-43 [facility] Comment on above: Performed By: #### 2 951523, [id number], [id number] ####[facility] [address] [facility] [place] [address] Bilirubin [Mass/Vol] 0.9 mg/dL Normal 0.0-1.1 [facility] Comment on above: Performed By: #### 2 923073, [id number], [id number] ####[facility] [address] [facility] [place] [address] Creatinine [Mass/Vol] 1.2 mg/dL Normal 0.5-1.3 [facility] Comment on above: Performed By: #### 2 296409, [id number], [id number] ####[facility] [address] [facility] [place] [address] Globulin (S) [Mass/Vol] 3.0 g/dL Normal 1.4-4.0 [facility] Comment on above: Performed By: #### 2 517925, [id number], [id number] ####[facility] [address] [place] [address] Protein [Mass/Vol] 7.3 g/dL Normal 6.0-7.8 [facility] Comment on above: Performed By: #### 2 933616, [id number], [id number] ####[facility] [address] [place] [address] Urea nitrogen [Mass/Vol] 18 mg/dL Normal 5-21 [facility] Comment on above: Performed By: #### 2 945159, 37033319, [id number] ####[facility] [address] [place] [address] Urea nitrogen/Creatinin e [Mass ratio] 15 No Units Normal 10-20 [facility] Comment on above: Performed By: #### 2 378731, [id number], [id number] ####[facility] [address] [place] [address] OtqZ9imb 12-12-2022 HbA1c (Bld) [Mass fraction] 6.8 % High <=5.9 [facility] Comment on above: Performed By: #### 2 455683, [id number], [id number] ####[address] [place] [address] Patient Educationon 12-13-19 23 Patient Education Endocrinology [...] following in (more content not included)... Normal [facility] eGFRon 12-12-2022 GFR/1.73 sq M.predicted among non-blacks MDRD (S/P/Bld) [Vol rate/Area] 46 mL/min/1.73 m2 Low >=59 [facility] Comment on above: Order Comment: Order added by Discern Expert. Result Comment: Mine Utility Operator radha kidney disease could be indicated at eGFR's of less than 60 mL/min/1.73m2. Kidney failure is indicated at less than 15 mL/min/1.73m2. Performed By: #### 2 020134, [id number], [id number] ####[facility] [address] [place] [address] Telemedicineon 11-14-2022 Telemedicine [id number] Angélica Shen 1940 F Date Provider Department Center 11/14/2022 SATNAM DAVIS [facility] Family History Problem Relation Age of Onset Coronary artery disease Mother Diabetes Mother Alcohol abuse Father Family Status - Relation Status Age at Mother Father Level of Service:66907 MO OFFICE/OUTPATIENT NEW MODERATE MDM 45-59 MINUTES Normal [facility] T3, TOTAL (TRIIODOTHYRONINE) on 11-10-2022 T3, TOTAL 78 ng/dL Normal 71-180 [facility] Comment on above: Performed By: #### C MP, BNP, TSHRFT4 #### [facility] [address] [place] [address] Dr. Sy Casillas 36on 11-09-2022 36 Patient is currently admitted to [facility] as of 11/09/2022 Normal [facility] BNPon 11-09-2022 Natriuretic peptide B (Bld) [Mass/Vol] 1472.0 pg/mL Normal <=1,800.0 [facility] Comment on above: Performed By: #### C MP, BNP, TSHRFT4 #### [facility] [address] [place] [address] Dr. Sy Casillas CBC AUTO DIFFon 11-09-2022 BASO # 0.3 103/ul Critically high 0.0-0.1 [facility] Comment on above: Performed By: #### C BC #### [facility] [address] [place] [address] Dr. Sy Casillas Basophils/100 WBC (Bld) 3.0 % Critically high 0.2-2.0 [facility] Comment on above: Performed By: #### C BC #### [facility] [address] [place] [address] Dr. Sy Casillas EO # 0.3 103/ul Normal 0.0-0.7 [facility] Comment on above: Performed By: #### C BC #### [facility] [address] [place] [address] Dr. Sy Casillas Eosinophils/100 WBC (Bld) 3.3 % Normal 0.9-7.0 [facility] Comment on above: Performed By: #### C BC #### [facility] [address] [place] [address] Dr. Sy Casillas Erythrocyte distribution width (RBC) [Ratio] 19.9 % Critically high 11.0-15.0 [facility] Comment on above: Performed By: #### C BC #### [facility] [address] [place] [address] Dr. Sy Casillas Hematocrit (Bld) [Volume fraction] 38.1 % Normal 36.0-48.0 [facility] Comment on above: Performed By: #### C BC #### [facility] [address] [place] [address] Dr. Sy Casillas Hemoglobin (Bld) [Mass/Vol] 12.0 g/dL Normal 12.0-16.0 [facility] Comment on above: Performed By: #### C BC #### [facility] [address] [place] [address] Dr. Sy Casillas IG # 0.72 10e3/ul Critically high 0.00-0.03 [facility] Comment on above: Performed By: #### C BC #### [facility] [address] [place] [address] Dr. Sy Casillas IG % 7.5 % Critically high 0.0-0.5 [facility] Comment on above: Performed By: #### C BC #### [facility] [address] [place] [address] Dr. Sy Casillas LYMPH # 1.4 103/ul Normal 1.2-3.8 [facility] Comment on above: Performed By: #### C BC #### [facility] [address] [place] [address] Dr. Sy Casillas Lymphocytes/100 WBC (Bld) 14.1 % Critically low 20.5-60.0 [facility] Comment on above: Performed By: #### C BC #### [facility] [address] [place] [address] Dr. Sy Casillas MANUAL DIFF REQ NO Normal [facility] Comment on above: Performed By: #### C BC #### [facility] [address] [place] [address] Dr. Sy Casillas MCH (RBC) [Entitic mass] 25.2 pg Critically low 26.7-34.0 [facility] Comment on above: Performed By: #### C BC #### [facility] [address] [place] [address] Dr. Sy Casillas MCHC (RBC) [Mass/Vol] 31.5 g/dL Normal 29.9-35.2 [facility] Comment on above: Performed By: #### C BC #### [facility] [address] [place] [address] Dr. Sy Casillas MCV (RBC) [Entitic vol] 79.9 fL Critically low 81.0-99.0 [facility] Comment on above: Performed By: #### C BC #### [facility] [address] [place] [address] Dr. Sy Casillas MONO # 0.6 103/ul Normal 0.3-0.8 [facility] Comment on above: Performed By: #### C BC #### [facility] [address] [place] [address] Dr. Sy Casillas Monocytes/100 WBC (Bld) 6.6 % Normal 1.7-12.0 [facility] Comment on above: Performed By: #### C BC #### [facility] [address] [place] [address] Dr. Sy Casillas NEUT # 6.3 103/ul Normal 1.4-6.5 [facility] Comment on above: Performed By: #### C BC #### [facility] [address] [place] [address] Dr. Sy Casillas Neutrophils/100 WBC (Bld) 65.5 % Normal 43.0-75.0 [facility] Comment on above: Performed By: #### C BC #### [facility] [address] [place] [address] Dr. Sy Casillas Platelet mean volume (Bld) [Entitic vol] 10.4 fL Normal 9.5-13.5 [facility] Comment on above: Performed By: #### C BC #### [facility] [address] [place] [address] Dr. Sy Casillas PLT 225 103/ul Normal 150-450 [facility] Comment on above: Performed By: #### C BC #### [facility] [address] [place] [address] Dr. Sy Casillas RBC 4.77 106/ul Normal 4.20-5.40 [facility] Comment on above: Performed By: #### C BC #### [facility] [address] [place] [address] Dr. Sy Casillas WBC 9.6 103/ul Normal 4.0-11.0 [facility] Comment on above: Performed By: #### C BC #### [facility] [address] [place] [address] Dr. Sy Casillas MAGNESIUMon 11-09-2022 Magnesium [Mass/Vol] 1.7 mg/dL Critically low 1.8-2.4 [facility] Comment on above: Performed By: #### C MP, BNP, TSHRFT4 #### [facility] [address] [place] [address] Dr. Sy Casillas POINT OF CARE GLUCOSEon 10-15 Glucose [Mass/Vol] 330 mg/dL Critically high 74-106 [facility] Comment on above: Performed By: #### C MP, BNP, TSHRFT4 #### [facility] [address] [place] [address] Dr. Sy Casillas Glucose [Mass/Vol] 197 mg/dL Critically high 74-106 [facility] Comment on above: Performed By: #### P OCGLUC #### [facility] [address] [place] [address] Dr. Sy Casillas PROF 14(COMP METB)on 023 Albumin [Mass/Vol] 2.5 g/dL Critically low 3.4-5.0 Th [facility] Comment on above: Performed By: #### C MP, BNP, TSHRFT4 #### [facility] [address] [place] [address] Dr. Sy Casillas Albumin/Globulin [Mass ratio] 0.8 {ratio} Normal [facility] Comment on above: Performed By: #### C MP, BNP, TSHRFT4 #### [facility] [address] [place] [address] Dr. Sy Casillas ALP [Catalytic activity/Vol] 83 U/L Normal 46-116 [facility] Comment on above: Performed By: #### C MP, BNP, TSHRFT4 #### [facility] [address] [place] [address] Dr. Sy Casillas ALT [Catalytic activity/Vol] 29 U/L Normal 14-59 [facility] Comment on above: Performed By: #### C MP, BNP, TSHRFT4 #### [facility] [address] [place] [address] Dr. Sy Casillas Anion gap [Moles/Vol] 10.3 mmol/L Normal [facility] Comment on above: Performed By: #### C MP, BNP, TSHRFT4 #### [facility] [address] [place] [address] Dr. Sy Casillas AST [Catalytic activity/Vol] 15 U/L Normal 15-37 [facility] Comment on above: Performed By: #### C MP, BNP, TSHRFT4 #### [facility] [address] [place] [address] Dr. Sy Casillas Bilirubin [Mass/Vol] 0.8 mg/dL Normal 0.2-1.0 [facility] Comment on above: Performed By: #### C MP, BNP, TSHRFT4 #### [facility] [address] [place] [address] Dr. Sy Casillas Calcium [Mass/Vol] 8.5 mg/dL Normal 8.5-10.1 [facility] Comment on above: Performed By: #### C MP, BNP, TSHRFT4 #### [facility] [address] [address] [address] Sy Casillas Chloride [Moles/Vol] 104 mmol/L Normal 98-107 [facility] Comment on above: Performed By: #### C MP, BNP, TSHRFT4 #### [facility] [address] [address] [address] Sy Casillas CO2 [Moles/Vol] 29.3 mmol/L Normal 21.0-32.0 [facility] Comment on above: Performed By: #### C MP, BNP, TSHRFT4 #### [facility] [address] [place] [address] Dr. Sy Casillas Creatinine [Mass/Vol] 0.75 mg/dL Normal 0.55-1.02 [facility] Comment on above: Performed By: #### C MP, BNP, TSHRFT4 #### [facility] [address] [place] [address] Dr. Sy Casillas EGFR-AF VINCENTIAN >60 Normal >=60 [facility] Comment on above: Performed By: #### C MP, BNP, TSHRFT4 #### [facility] [address] [place] [address] Dr. Sy Casillas EGFR-NON AF VINCENTIAN >60 Normal >=60 [facility] Comment on above: Performed By: #### C MP, BNP, TSHRFT4 #### [facility] [address] [place] [address] Dr. Sy Casillas Globulin (S) [Mass/Vol] 3.1 g/dL Normal [facility] Comment on above: Performed By: #### C MP, BNP, TSHRFT4 #### [facility] [address] [place] [address] Dr. Sy Casillas Glucose [Mass/Vol] 69 mg/dL Critically low 74-106 Th [facility] Comment on above: Performed By: #### C MP, BNP, TSHRFT4 #### [facility] [address] [place] [address] Dr. Sy Casillas Potassium [Moles/Vol] 2.6 mmol/L Critically low 3.5-5.1 [facility] Comment on above: Performed By: #### C MP, BNP, TSHRFT4 #### [facility] [address] [place] [address] Dr. Sy Casillas Protein [Mass/Vol] 5.6 g/dL Critically low 6.4-8.[address] [facility] Comment on above: Performed By: #### C MP, BNP, TSHRFT4 #### [facility] [address] [place] [address] Dr. Sy Casillas Sodium [Moles/Vol] 140 mmol/L Normal 136-145 [facility] Comment on above: Performed By: #### C MP, BNP, TSHRFT4 #### [facility] [address] [place] [address] Dr. Sy Casillas Urea nitrogen [Mass/Vol] 17.0 mg/dL Normal 7.0-18.0 [facility] Comment on above: Performed By: #### C MP, BNP, TSHRFT4 #### [facility] [address] [place] [address] Dr. Sy Casillas Urea nitrogen/Creatinin e [Mass ratio] 22.7 mg/mg Normal [facility] Comment on above: Performed By: #### C MP, BNP, TSHRFT4 #### [facility] [address] [place] [address] Dr. Sy Casillas ACETONE SERUMon 11-08-2022 ACETONE Negative Normal NEGATIVE [facility] Comment on above: Performed By: #### A CETON #### [facility] [address] [place] [address] Dr. Sy Casillas BNPon 11-08-2022 Natriuretic peptide B (Bld) [Mass/Vol] 1755.0 pg/mL Normal <=1,800.0 [facility] Comment on above: Performed By: #### C MP, BNP, TSHRFT4 #### [facility] [address] [place] [address] Dr. Sy Casillas CBC AUTO DIFFon 11-08-2022 BASO # 0.3 103/ul Critically high 0.0-0.1 [facility] Comment on above: Performed By: #### C MP, BNP, TSHRFT4 #### [facility] [address] [place] [address] Dr. Sy Casillas Basophils/100 WBC (Bld) 2.4 % Critically high 0.2-2.0 [facility] Comment on above: Performed By: #### C MP, BNP, TSHRFT4 #### [facility] [address] [place] [address] Dr. Sy Casillas EO # 0.2 103/ul Normal 0.0-0.7 [facility] Comment on above: Performed By: #### C MP, BNP, TSHRFT4 #### [facility] [address] [place] [address] Dr. Sy Casillas Eosinophils/100 WBC (Bld) 1.4 % Normal 0.9-7.0 [facility] Comment on above: Performed By: #### C MP, BNP, TSHRFT4 #### [facility] [address] [place] [address] Dr. Sy Casillas Erythrocyte distribution width (RBC) [Ratio] 20.1 % Critically high 11.0-15.0 [facility] Comment on above: Performed By: #### C MP, BNP, TSHRFT4 #### [facility] [address] [place] [address] Dr. Sy Casillas Hematocrit (Bld) [Volume fraction] 39.4 % Normal 36.0-48.0 [facility] Comment on above: Performed By: #### C MP, BNP, TSHRFT4 #### [facility] [address] [place] [address] Dr. Sy Casillas Hemoglobin (Bld) [Mass/Vol] 12.8 g/dL Normal 12.0-16.0 [facility] Comment on above: Performed By: #### C MP, BNP, TSHRFT4 #### [facility] [address] [address] [address] Sy Casillas IG # 0.61 10e3/ul Critically high 0.00-0.03 [facility] Comment on above: Performed By: #### C MP, BNP, TSHRFT4 #### [facility] [address] [address] [address] Sy Casillas IG % 5.9 % Critically high 0.0-0.5 [facility] Comment on above: Performed By: #### C MP, BNP, TSHRFT4 #### [facility] [address] [place] [address] Dr. Sy Casillas LYMPH # 0.7 103/ul Critically low 1.2-3.8 [facility] Comment on above: Performed By: #### C MP, BNP, TSHRFT4 #### [facility] [address] [place] [address] Dr. Sy Casillas Lymphocytes/100 WBC (Bld) 6.4 % Critically low 20.5-60.0 [facility] Comment on above: Performed By: #### C MP, BNP, TSHRFT4 #### [facility] [address] [place] [address] Dr. Sy Casillas MANUAL DIFF REQ NO Normal [facility] Comment on above: Performed By: #### C MP, BNP, TSHRFT4 #### [facility] [address] [place] [address] Dr. Sy Casillas MCH (RBC) [Entitic mass] 25.4 pg Critically low 26.7-34.0 [facility] Comment on above: Performed By: #### C MP, BNP, TSHRFT4 #### [facility] [address] [place] [address] Dr. Sy Casillas MCHC (RBC) [Mass/Vol] 32.5 g/dL Normal 29.9-35.2 [facility] Comment on above: Performed By: #### C MP, BNP, TSHRFT4 #### [facility] [address] [place] [address] Dr. Sy Casillas MCV (RBC) [Entitic vol] 78.2 fL Critically low 81.0-99.0 [facility] Comment on above: Performed By: #### C MP, BNP, TSHRFT4 #### [facility] [address] [place] [address] Dr. Sy Casillas MONO # 0.6 103/ul Normal 0.3-0.8 [facility] Comment on above: Performed By: #### C MP, BNP, TSHRFT4 #### [facility] [address] [place] [address] Dr. Sy Casillas Monocytes/100 WBC (Bld) 5.8 % Normal 1.7-12.0 [facility] Comment on above: Performed By: #### C MP, BNP, TSHRFT4 #### [facility] [address] [place] [address] Dr. Sy Casillas NEUT # 8.1 103/ul Critically high 1.4-6.5 [facility] Comment on above: Performed By: #### C MP, BNP, TSHRFT4 #### [facility] [address] [place] [address] Dr. Sy Casillas Neutrophils/100 WBC (Bld) 78.1 % Critically high 43.0-75.0 [facility] Comment on above: Performed By: #### C MP, BNP, TSHRFT4 #### [facility] [address] [place] [address] Dr. Sy Casillas Platelet mean volume (Bld) [Entitic vol] 10.3 fL Normal 9.5-13.5 [facility] Comment on above: Performed By: #### C MP, BNP, TSHRFT4 #### [facility] [address] [place] [address] Dr. Sy Casillas PLT 229 103/ul Normal 150-450 [facility] Comment on above: Performed By: #### C MP, BNP, TSHRFT4 #### [facility] [address] [place] [address] Dr. Sy Casillas RBC 5.04 106/ul Normal 4.20-5.40 [facility] Comment on above: Performed By: #### C MP, BNP, TSHRFT4 #### [facility] [address] [place] [address] Dr. Sy Casillas WBC 10.4 103/ul Normal 4.0-11.0 [facility] Comment on above: Performed By: #### C MP, BNP, TSHRFT4 #### [facility] [address] [place] [address] Dr. Sy Casillas CULTURE URINEon 11-08-2022 CULTURE URINE Culture Observations : MODERATE GROWTH OF MIXED GENITAL ISAURA. NO POTENTIAL PATHOGENS SEEN. Normal [facility] Comment on above: Performed By: #### C MP, BNP, TSHRFT4 #### [facility] [address] [place] [address] Dr. Sy Casillas ER URINE PROFILEon 3 Bilirubin Ql (U) Negative Normal NEGATIVE [facility] Comment on above: Performed By: #### U MICRO, ERUR #### [facility] [address] [place] [address] Dr. Sy Casillas Clarity (U) CLEAR Normal CLEAR [facility] Comment on above: Performed By: #### U MICRO, ERUR #### [facility] [address] [place] [address] Dr. Sy Casillas Color (U) LT. YELLOW Normal YELLOW [facility] Comment on above: Performed By: #### U MICRO, ERUR #### [facility] [address] [place] [address] Dr. Sy Casillas ERUAHD A micrscopic examina tion will be performed if indicated. Normal [facility] Comment on above: Performed By: #### U MICRO, ERUR #### [facility] [address] [place] [address] Dr. Sy Casillas Glucose Ql (U) >1000 Abnormal NEGATIVE [facility] Comment on above: Performed By: #### U MICRO, ERUR #### [facility] [address] [place] [address] Dr. Sy Casillas Hemoglobin Ql (U) TRACE-INTACT Abnormal NEGATIVE [facility] Comment on above: Performed By: #### U MICRO, ERUR #### [facility] [address] [address] [address] Sy Casillas Ketones Ql (U) TRACE Abnormal NEGATIVE [facility] Comment on above: Performed By: #### U MICRO, ERUR #### [facility] [address] [place] [address] Dr. Sy Casillas LEUKOCYTES Negative Normal NEGATIVE [facility] Comment on above: Performed By: #### U MICRO, ERUR #### [facility] [address] [address] [address] Sy Casillas Nitrite Ql (U) Negative Normal NEGATIVE [facility] Comment on above: Performed By: #### U MICRO, ERUR #### [facility] [address] [place] [address] Dr. Sy Casillas pH (U) 5.0 [pH] Normal 5-9 [facility] Comment on above: Performed By: #### U MICRO, ERUR #### [facility] [address] [place] [address] Dr. Sy Casillas SPEC GRAVITY <=1.005 Abnormal 1.005-<=1.025 [facility] Comment on above: Performed By: #### U MICRO, ERUR #### [facility] [address] [place] [address] Dr. Sy Casillas UA PROTEIN Negative Normal NEGATIVE/ TRACE [facility] Comment on above: Performed By: #### U MICRO, ERUR #### [facility] [address] [place] [address] Dr. Sy Casillas UR MICRO IND INDICATED Normal [facility] Comment on above: Performed By: #### U MICRO, ERUR #### [facility] [address] [place] [address] Dr. Sy Casillas Urobilinogen Qn (U) 0.2 {Brisa'U}/dL Normal 0.2 - 1.0 [facility] Comment on above: Performed By: #### U MICRO, ERUR #### [facility] [address] [place] [address] Dr. Sy Casillas GLYCOHEMOGLOBIN A1Con 2022 ADA RECOMMENDATION SEE BELOW Normal [facility] Comment on above: Result Comment: ADA RECOMMENDED LIMIT 4.0 - 6.0 ADA THERAPEUTIC TARGET < 7.0 ACTION SUGGESTED > 7.0 Performed By: #### C MP, BNP, TSHRFT4 #### [facility] [address] [place] [address] Dr. Sy Casillas Glucose [Mass/Vol] 240 mg/dL Normal [facility] Comment on above: Performed By: #### C MP, BNP, TSHRFT4 #### [facility] [address] [place] [address] Dr. Sy Casillas HbA1c (Bld) [Mass fraction] 10.0 % Critically high 4.5-6.2 [facility] Comment on above: Performed By: #### C MP, BNP, TSHRFT4 #### [facility] [address] [place] [address] Dr. Sy Casillas LACTATE/LACTIC ACIDon 2022 Lactate [Moles/Vol] 1.7 mmol/L Normal 0.4-2.0 [facility] Comment on above: Performed By: #### C MP, BNP, TSHRFT4 #### [facility] [address] [place] [address] Dr. Sy Casillas Lactate [Moles/Vol] 1.7 mmol/L Normal 0.4-2.0 [facility] Comment on above: Performed By: #### A SSBA #### [facility] [address] [place] [address] Dr. Sy Casillas MAGNESIUMon 11-08-2022 Magnesium [Mass/Vol] 1.6 mg/dL Critically low 1.8-2.4 [facility] Comment on above: Performed By: #### A SSBA #### [facility] [address] [place] [address] Dr. Sy Casillas PH VENOUS BLOODon 11-08-2022 PCO2 VENOUS 33.4 mmHg Critically low 40.0-52.0 [facility] Comment on above: Performed By: #### A SSBA #### [facility] [address] [place] [address] Dr. Sy Casillas pH VENOUS 7.507 Critically high 7.330-7.430 [facility] Comment on above: Performed By: #### A SSBA #### [facility] [address] [place] [address] Dr. Sy Casillas POINT OF CARE GLUCOSEon 10-15 Glucose [Mass/Vol] 378 mg/dL Critically high 74-106 [facility] Comment on above: Performed By: #### A SSBA #### [facility] [address] [place] [address] Dr. Sy Casillas PROF 14(COMP METB)on 023 Albumin [Mass/Vol] 3.0 g/dL Critically low 3.4-5.0 [facility] Comment on above: Performed By: #### C MP, BNP, TSHRFT4 #### [facility] [address] [place] [address] Dr. Sy Casillas Albumin/Globulin [Mass ratio] 0.9 {ratio} Normal [facility] Comment on above: Performed By: #### C MP, BNP, TSHRFT4 #### [facility] [address] [place] [address] Dr. Sy Casillas ALP [Catalytic activity/Vol] 101 U/L Normal 46-116 [facility] Comment on above: Performed By: #### C MP, BNP, TSHRFT4 #### [facility] [address] [place] [address] Dr. Sy Casillas ALT [Catalytic activity/Vol] 33 U/L Normal 14-59 [facility] Comment on above: Performed By: #### C MP, BNP, TSHRFT4 #### [facility] [address] [place] [address] Dr. Sy Casillas Anion gap [Moles/Vol] 14.5 mmol/L Normal [facility] Comment on above: Performed By: #### C MP, BNP, TSHRFT4 #### [facility] [address] [place] [address] Dr. Sy Casillas AST [Catalytic activity/Vol] 18 U/L Normal 15-37 [facility] Comment on above: Performed By: #### C MP, BNP, TSHRFT4 #### [facility] [address] [place] [address] Dr. Sy Casillas Bilirubin [Mass/Vol] 1.4 mg/dL Critically high 0.2-1.0 [facility] Comment on above: Performed By: #### C MP, BNP, TSHRFT4 #### [facility] [address] [place] [address] Dr. Sy Casillas Calcium [Mass/Vol] 8.6 mg/dL Normal 8.5-10.1 [facility] Comment on above: Performed By: #### C MP, BNP, TSHRFT4 #### [facility] [address] [place] [address] Dr. Sy Casillas Chloride [Moles/Vol] 92 mmol/L Critically low 98-107 [facility] Comment on above: Performed By: #### C MP, BNP, TSHRFT4 #### [facility] [address] [place] [address] Dr. Sy Casillas CO2 [Moles/Vol] 25.7 mmol/L Normal 21.0-32.0 [facility] Comment on above: Performed By: #### C MP, BNP, TSHRFT4 #### [facility] [address] [place] [address] Dr. Sy Casillas Creatinine [Mass/Vol] 1.05 mg/dL Critically high 0.55-1.02 [facility] Comment on above: Performed By: #### C MP, BNP, TSHRFT4 #### [facility] [address] [place] [address] Dr. Sy Casillas EGFR-AF VINCENTIAN >60 Normal >=60 [facility] Comment on above: Performed By: #### C MP, BNP, TSHRFT4 #### [facility] [address] [place] [address] Dr. Sy Casillas EGFR-NON AF VINCENTIAN 50 mL/min/1.73m2 Critically low >=60 [facility] Comment on above: Performed By: #### C MP, BNP, TSHRFT4 #### [facility] [address] [place] [address] Dr. Sy Casillas Globulin (S) [Mass/Vol] 3.3 g/dL Normal [facility] Comment on above: Performed By: #### C MP, BNP, TSHRFT4 #### [facility] [address] [place] [address] Dr. Sy Casillas Glucose [Mass/Vol] 518 mg/dL Critically high 74-106 [facility] Comment on above: Performed By: #### C MP, BNP, TSHRFT4 #### [facility] [address] [place] [address] Dr. Sy Casillas Potassium [Moles/Vol] 3.2 mmol/L Critically low 3.5-5.1 [facility] Comment on above: Performed By: #### C MP, BNP, TSHRFT4 #### [facility] [address] [place] [address] Dr. Sy Casillas Protein [Mass/Vol] 6.3 g/dL Critically low 6.4-8.[address] [facility] Comment on above: Performed By: #### C MP, BNP, TSHRFT4 #### [facility] [address] [place] [address] Dr. Sy Casillas Sodium [Moles/Vol] 129 mmol/L Critically low 136-145 Th [facility] Comment on above: Performed By: #### C MP, BNP, TSHRFT4 #### [facility] [address] [place] [address] Dr. Sy Casillas Urea nitrogen [Mass/Vol] 24.0 mg/dL Critically high 7.0-18.0 [facility] Comment on above: Performed By: #### C MP, BNP, TSHRFT4 #### [facility] [address] [place] [address] Dr. Sy Casillas Urea nitrogen/Creatinin e [Mass ratio] 22.9 mg/mg Normal [facility] Comment on above: Performed By: #### C MP, BNP, TSHRFT4 #### [facility] [address] [place] [address] Dr. Sy Casillas SED [facility] SED RATE 53 mm/hr Critically high <=30 [facility] Comment on above: Performed By: #### S EDR #### [facility] [address] [place] [address] Dr. Sy Casillas T4on 11-08-2022 T4 [Mass/Vol] 11.40 ug/dL Normal 4.80-13.90 [facility] Comment on above: Performed By: #### A SSBA #### [facility] [address] [place] [address] Dr. Sy Casillas TROPONIN, HIGH SENSITIVITYon 11-08-2022 HSTROP 10.0 pg/mL Normal 4.0-51.3 [facility] Comment on above: Result Comment: CUT- OFF POINTS HAVE BEEN ESTABLISHED BASED ON THE FOURTH UNIVERSAL DEFINITIONS OF MYOCARDIAL INFARCTION. THE UPPER REFERENCE LIMIT (URL) OF TROPONIN, DEFINED THE 99TH PERCENTILE OF cTnI DISTRIBUTION IN A REFERENCE POPULATION, HAS BEEN CONFIRMED THE DECISION THRESHOLD FOR SD DIAGNOSIS. Performed By: #### C MP, BNP, TSHRFT4 #### [facility] [address] [place] [address] Dr. Sy Casillas TSHon 11-08-2022 TSH 1.031 uIU/mL Normal 0.358-3.740 [facility] Comment on above: Performed By: #### A SSBA #### [facility] [address] [place] [address] Dr. Sy Casillas URINE MICROSCOPIC ONLYon BACTERIA TRACE Abnormal NONE SEEN [facility] Comment on above: Performed By: #### U MICRO, ERUR #### [facility] [address] [place] [address] Dr. Sy Casillas Bacteria identified Cx Nom (U) NOT INDICATED Normal [facility] Comment on above: Performed By: #### U MICRO, ERUR #### [facility] [address] [place] [address] Dr. Sy Casillas CAST NONE SEEN Normal NONE SEEN [facility] Comment on above: Performed By: #### U MICRO, ERUR #### [facility] [address] [place] [address] Dr. Sy Casillas Crystals LM Nom (Urine sed) NONE SEEN Normal NONE SEEN [facility] Comment on above: Performed By: #### U MICRO, ERUR #### [facility] [address] [place] [address] Dr. Sy Casillas Epithelial cells LM Ql (Urine sed) RARE Normal NONE SEEN /RARE [facility] Comment on above: Performed By: #### U MICRO, ERUR #### [facility] [address] [place] [address] Dr. Sy Casillas MUCOUS NONE SEEN Normal NONE SEEN [facility] Comment on above: Performed By: #### U MICRO, ERUR #### [facility] [address] [place] [address] Dr. Sy Casillas RBC 2-5 Abnormal 0-2 [facility] Comment on above: Performed By: #### U MICRO, ERUR #### [facility] [address] [place] [address] Dr. Sy Casillas WBC 2-5 Abnormal NONE SEEN [facility] Comment on above: Performed By: #### U MICRO, ERUR #### [facility] [address] [place] [address] Dr. Sy Casillas XR CHEST 1 Von [...] BYRON QUINTERO Date: 2022-11-08 15:19 Normal [facility] PROF CHEM 8 (BAS METB)on Anion gap [Moles/Vol] 14.2 mmol/L Normal [facility] Comment on above: Performed By: #### C MP, BNP, TSHRFT4 #### [facility] [address] [place] [address] Dr. Sy Casillas Calcium [Mass/Vol] 8.9 mg/dL Normal 8.5-10.1 [facility] Comment on above: Performed By: #### C MP, BNP, TSHRFT4 #### [facility] [address] [address] [address] Sy Casillas Chloride [Moles/Vol] 96 mmol/L Critically low 98-107 [facility] Comment on above: Performed By: #### C MP, BNP, TSHRFT4 #### [facility] [address] [address] [address] Sy Casillas CO2 [Moles/Vol] 29.7 mmol/L Normal 21.0-32.0 [facility] Comment on above: Performed By: #### C MP, BNP, TSHRFT4 #### [facility] [address] [place] [address] Dr. Sy Casillas Creatinine [Mass/Vol] 1.27 mg/dL Critically high 0.55-1.02 [facility] Comment on above: Performed By: #### C MP, BNP, TSHRFT4 #### [facility] [address] [place] [address] Dr. Sy Casillas EGFR-AF VINCENTIAN 49 mL/min/1.73m2 Critically low >=60 [facility] Comment on above: Performed By: #### C MP, BNP, TSHRFT4 #### [facility] [address] [place] [address] Dr. Sy Casillas EGFR-NON AF VINCENTIAN 40 mL/min/1.73m2 Critically low >=60 [facility] Comment on above: Performed By: #### C MP, BNP, TSHRFT4 #### [facility] [address] [place] [address] Dr. Sy Casillas Glucose [Mass/Vol] 526 mg/dL Critically high 74-106 [facility] Comment on above: Performed By: #### C MP, BNP, TSHRFT4 #### [facility] [address] [place] [address] Dr. Sy Casillas Potassium [Moles/Vol] 3.9 mmol/L Normal 3.5-5.1 [facility] Comment on above: Performed By: #### C MP, BNP, TSHRFT4 #### [facility] [address] [address] [address] Sy Casillas Sodium [Moles/Vol] 136 mmol/L Normal 136-145 [facility] Comment on above: Performed By: #### C MP, BNP, TSHRFT4 #### [facility] [address] [address] [address] Sy Casillas Urea nitrogen [Mass/Vol] 24.0 mg/dL Critically high 7.0-18.0 [facility] Comment on above: Performed By: #### C MP, BNP, TSHRFT4 #### [facility] [address] [place] [address] Dr. Sy Casillas Urea nitrogen/Creatinin e [Mass ratio] 18.9 mg/mg Normal [facility] Comment on above: Performed By: #### C MP, BNP, TSHRFT4 #### [facility] [facility] [address] [place] [address] Dr. Sy Casillas Orders Onlyon 11-02-2022 Orders Only [id number] Angélica Shen 1940 F Date Provider Department Center 11/02/2022 VIVIANE BOLTON [facility] Family History Problem Relation Age of Onset Coronary artery disease Mother Diabetes Mother Alcohol abuse Father Family Status - Relation Status Age at Mother Father Normal [facility] Telephoneon 11-02-2022 Telephone [id number] Angélica Shen 1940 F Date Provider Department Center 11/02/2022 LEYLA JARRETT [facility] Family History Problem Relation Age of Onset Coronary artery disease Mother Diabetes Mother Alcohol abuse Father Family Status - Relation Status Age at Mother Father Normal [facility] BNPon 11-01-2022 Natriuretic peptide B (Bld) [Mass/Vol] 2503.0 pg/mL Critically high <=1,800.0 [facility] Comment on above: Performed By: #### C MP, BNP, TSHRFT4 #### [facility] [address] [address] [address] Sy Casillas Office Visiton 11-01-2022 Follow-up visit [id number] ShenAngélica Salinas 1940 F Date Provider Department Center 11/01/2022 Bon6-VIVIANE ORTEZ [facility] Family History Problem Relation Age of Onset Coronary artery disease Mother Diabetes Mother Alcohol abuse Father Family Status - Relation Status Age at Mother Father Level of Service:91149 MO OFFICE/OUTPATIENT ESTABLISHED HIGH MDM 40-54 MIN Reason for Visit and Comments: Coronary Artery Disease [187] Atrial Fibrillation [80] Shortness of Breath [606120] Normal [facility] PROF 14(COMP METB)on 023 Albumin [Mass/Vol] 3.4 g/dL Normal 3.4-5.0 [facility] Comment on above: Performed By: #### C MP, BNP, TSHRFT4 #### [facility] [address] [place] [address] Dr. Sy Casillas Albumin/Globulin [Mass ratio] 1.1 {ratio} Normal [facility] Comment on above: Performed By: #### C MP, BNP, TSHRFT4 #### [facility] [address] [place] [address] Dr. Sy Casillas ALP [Catalytic activity/Vol] 108 U/L Normal 46-116 [facility] Comment on above: Performed By: #### C MP, BNP, TSHRFT4 #### [facility] [address] [place] [address] Dr. Sy Casillas ALT [Catalytic activity/Vol] 44 U/L Normal 14-59 [facility] Comment on above: Performed By: #### C MP, BNP, TSHRFT4 #### [facility] [address] [place] [address] Dr. Sy Casillas Anion gap [Moles/Vol] 14.6 mmol/L Normal [facility] Comment on above: Performed By: #### C MP, BNP, TSHRFT4 #### [facility] [address] [place] [address] Dr. Sy Casillas AST [Catalytic activity/Vol] 14 U/L Critically low 15-37 [facility] Comment on above: Performed By: #### C MP, BNP, TSHRFT4 #### [facility] [address] [address] [address] Sy Casillas Bilirubin [Mass/Vol] 1.5 mg/dL Critically high 0.2-1.0 [facility] Comment on above: Performed By: #### C MP, BNP, TSHRFT4 #### [facility] [address] [place] [address] Dr. Sy Casillas Calcium [Mass/Vol] 9.3 mg/dL Normal 8.5-10.1 [facility] Comment on above: Performed By: #### C MP, BNP, TSHRFT4 #### [facility] [address] [place] [address] Dr. Sy Casillas Chloride [Moles/Vol] 97 mmol/L Critically low 98-107 [facility] Comment on above: Performed By: #### C MP, BNP, TSHRFT4 #### [facility] [address] [place] [address] Dr. Sy Casillas CO2 [Moles/Vol] 28.1 mmol/L Normal 21.0-32.0 [facility] Comment on above: Performed By: #### C MP, BNP, TSHRFT4 #### [facility] [address] [place] [address] Dr. Sy Casillas Creatinine [Mass/Vol] 0.93 mg/dL Normal 0.55-1.02 [facility] Comment on above: Performed By: #### C MP, BNP, TSHRFT4 #### [facility] [address] [place] [address] Dr. Sy Casillas EGFR-AF VINCENTIAN >60 Normal >=60 [facility] Comment on above: Performed By: #### C MP, BNP, TSHRFT4 #### [facility] [address] [place] [address] Dr. Sy Casillas EGFR-NON AF VINCENTIAN 58 mL/min/1.73m2 Critically low >=60 [facility] Comment on above: Performed By: #### C MP, BNP, TSHRFT4 #### [facility] [address] [address] [address] Sy Casillas Globulin (S) [Mass/Vol] 3.1 g/dL Normal [facility] Comment on above: Performed By: #### C MP, BNP, TSHRFT4 #### [facility] [address] [place] [address] Dr. Sy Casillas Glucose [Mass/Vol] 421 mg/dL Critically high 74-106 [facility] Comment on above: Performed By: #### C MP, BNP, TSHRFT4 #### [facility] [address] [place] [address] Dr. Sy Casillas Potassium [Moles/Vol] 3.7 mmol/L Normal 3.5-5.1 [facility] Comment on above: Performed By: #### C MP, BNP, TSHRFT4 #### [facility] [address] [place] [address] Dr. Sy Casillas Protein [Mass/Vol] 6.5 g/dL Normal 6.4-8.2 [facility] Comment on above: Performed By: #### C MP, BNP, TSHRFT4 #### [facility] [address] [place] [address] Dr. Sy Casillas Sodium [Moles/Vol] 136 mmol/L Normal 136-145 [facility] Comment on above: Performed By: #### C MP, BNP, TSHRFT4 #### [facility] [address] [place] [address] Dr. Sy Casillas Urea nitrogen [Mass/Vol] 26.0 mg/dL Critically high 7.0-18.0 [facility] Comment on above: Performed By: #### C MP, BNP, TSHRFT4 #### [facility] [address] [place] [address] Dr. Sy Casillas Urea nitrogen/Creatinin e [Mass ratio] 28.0 mg/mg Normal [facility] Comment on above: Performed By: #### C MP, BNP, TSHRFT4 #### [facility] [address] [address] [address] Sy Casillas TSH W/ REFLEX TO FT4on 11-01 TSH 0.925 uIU/mL Normal 0.358-3.740 [facility] Comment on above: Performed By: #### C MP, BNP, TSHRFT4 #### [facility] [address] [address] [address] Sy Casillas ECHOCARDIO M/2D COMPLETEon 0 10-18-2022 ECHOCARDIO M/2D COMPLETE Patient: MYRNA SHEN Exam Date: 10/18/2022 : 1940 Gender:F Ordering : DR LEXI PURCELL M.D. Admission #: [id number] Family : DR. DARBY HAMLIN . Order #: [id number] CLICK HERE TO VIEW EXAM ECHOCARDIOGRAM REPORT [...] M.D. on 10/19/2022 at 18:37 Normal [facility] ANTISCLERODERMA ABon 023 Antiscleroderma-70 Antibodies <0.2 Normal 0.0-0.9 [facility] Comment on above: Performed By: #### C MP, BNP, TSHRFT4 #### [facility] [address] [address] [address] Sy Casillas SJOGRENS ANTI-SS-Aon 023 Sjogren's Anti-SS-A <0.2 Normal 0.0-0.9 [facility] Comment on above: Performed By: #### A SSBA #### [facility] [address] [place] [address] Dr. Sy Casillas SJOGR ANTI-SS-Bon 023 Sjogren's Anti-SS-B <0.2 Normal 0.0-0.9 [facility] Comment on above: Performed By: #### A SSBA #### [facility] [address] [place] [address] Dr. Sy Casillas JARAMILLO ANTIBODIESon 3 Jaramillo Antibodies <0.2 Normal 0.0-0.9 [facility] Comment on above: Performed By: #### A SSBA #### [facility] [address] [address] [address] Sy Casillas Office Visiton 09-25-2022 Follow-up visit [id number] Angélica Shen yany Salinas 1940 F Date Provider Department Center 09/25/2022 LEXI VILLALTA [facility] Family History Problem Relation Age of Onset Coronary artery disease Mother Diabetes Mother Alcohol abuse Father Family Status - Relation Status Age at Mother Father Level of Service:67399 MO OFFICE/OUTPATIENT ESTABLISHED MOD MDM 30-39 MIN Reason for Visit and Comments: Coronary Artery Disease [187] Hypertension [930655] Atrial Fibrillation [80] Normal [facility] DARREL by IFAon 09-19-2022 Antinuclear Antibodies, IFA Positive Abnormal [facility] Comment on above: Result Comment: Nega tive <1:80 Borderline 1:80 Positive >1:80 Performed By: #### A SSBA #### [facility] [address] [address] [address] Sy Casillas Centriole Pattern Normal [facility] Comment on above: Performed By: #### A SSBA #### [facility] [address] [address] [address] Sy Casillas Centromere Pattern Normal [facility] Comment on above: Performed By: #### A SSBA #### [facility] [address] [address] [address] Sy Casillas Homogeneous Pattern Normal [facility] Comment on above: Performed By: #### A SSBA #### [facility] [address] [address] [address] Sy Casillas Midbody Pattern Normal [facility] Comment on above: Performed By: #### A SSBA #### [facility] [address] [address] [address] Sy Casillas Note: Comment Normal [facility] Comment on above: Result Comment: For [...] titers Nucleosomes, Histones Drug-induced SLE Speckled Sm, CASTING MACHINE [employer], SCL-70, SLE,MCTD,PSS (diffuse form), SS-A/SS-B Sjogrens Nucleolar SCL-70, PM-1/SCL High titers Scleroderma, PM/DM Centromere Centromere PSS (limited form) w/Crest syndrome variable Nuclear Dot Sp100,u50-naabed Primary Biliary Cirrhosis Nuclear GP210, Primary Biliary Cirrhosis Membrane belem A,B,C Performed By: #### A SSBA #### [facility] [address] [address] [address] Sy Casillas Nuclear Dot Pattern Normal [facility] Comment on above: Performed By: #### A SSBA #### [facility] [address] [address] [address] Sy Casillas Nuclear Membrane Pattern Normal [facility] Comment on above: Performed By: #### A SSBA #### [facility] [address] [place] [address] Dr. Sy Casillas Nucleolar Pattern Normal [facility] Comment on above: Performed By: #### A SSBA #### [facility] [address] [address] [address] Sy Casillas PCNA Pattern Normal [facility] Comment on above: Performed By: #### A SSBA #### [facility] [address] [address] [address] Sy Casillas Speckled Pattern 1:320 Critically high [facility] Comment on above: Result Comment: Dens e Fine Speckled pattern is noted. This pattern suggests the presence of DFS70 antibody which has a low prevalence in systemic autoimmune rheumatic diseases. ICAP nomenclature: AC-2,4,5,29 Performed By: #### A SSBA #### [facility] [address] [place] [address] Dr. Sy Casillas Spindle Apparatus Pattern Normal [facility] Comment on above: Performed By: #### A SSBA #### [facility] [address] [place] [address] Dr. Sy Casillas BNPon 09-15-2022 Natriuretic peptide B (Bld) [Mass/Vol] 1243.0 pg/mL Normal <=1,800.0 [facility] Comment on above: Performed By: #### C MP, BNP, TSHRFT4 #### [facility] [address] [place] [address] Dr. Sy Casillas CBC AUTO DIFFon 09-15-2022 BASO # 0.1 103/ul Normal 0.0-0.1 [facility] Comment on above: Performed By: #### C MP, BNP, TSHRFT4 #### [facility] [address] [place] [address] Dr. Sy Casillas Basophils/100 WBC (Bld) 0.8 % Normal 0.2-2.0 [facility] Comment on above: Performed By: #### C MP, BNP, TSHRFT4 #### [facility] [address] [place] [address] Dr. Sy Casillas EO # 0.1 103/ul Normal 0.0-0.7 [facility] Comment on above: Performed By: #### C MP, BNP, TSHRFT4 #### [facility] [address] [place] [address] Dr. Sy Casillas Eosinophils/100 WBC (Bld) 0.5 % Critically low 0.9-7.0 [facility] Comment on above: Performed By: #### C MP, BNP, TSHRFT4 #### [facility] [address] [place] [address] Dr. Sy Casillas Erythrocyte distribution width (RBC) [Ratio] 18.5 % Critically high 11.0-15.0 [facility] Comment on above: Performed By: #### C MP, BNP, TSHRFT4 #### [facility] [address] [place] [address] Dr. Sy Casillas Hematocrit (Bld) [Volume fraction] 42.9 % Normal 36.0-48.0 [facility] Comment on above: Performed By: #### C MP, BNP, TSHRFT4 #### [facility] [address] [place] [address] Dr. Sy Casillas Hemoglobin (Bld) [Mass/Vol] 13.3 g/dL Normal 12.0-16.0 [facility] Comment on above: Performed By: #### C MP, BNP, TSHRFT4 #### [facility] [address] [place] [address] Dr. Sy Casillas IG # 0.19 10e3/ul Critically high 0.00-0.03 [facility] Comment on above: Performed By: #### C MP, BNP, TSHRFT4 #### [facility] [address] [place] [address] Dr. Sy Casillas IG % 1.4 % Critically high 0.0-0.5 [facility] Comment on above: Performed By: #### C MP, BNP, TSHRFT4 #### [facility] [address] [place] [address] Dr. Sy Casillas LYMPH # 1.1 103/ul Critically low 1.2-3.8 [facility] Comment on above: Performed By: #### C MP, BNP, TSHRFT4 #### [facility] [address] [place] [address] Dr. Sy Casillas Lymphocytes/100 WBC (Bld) 8.4 % Critically low 20.5-60.0 [facility] Comment on above: Performed By: #### C MP, BNP, TSHRFT4 #### [facility] [address] [place] [address] Dr. Sy Casillas MANUAL DIFF REQ NO Normal [facility] Comment on above: Performed By: #### C MP, BNP, TSHRFT4 #### [facility] [address] [place] [address] Dr. Sy Casillas MCH (RBC) [Entitic mass] 24.5 pg Critically low 26.7-34.0 [facility] Comment on above: Performed By: #### C MP, BNP, TSHRFT4 #### [facility] [address] [place] [address] Dr. Sy Casillas MCHC (RBC) [Mass/Vol] 31.0 g/dL Normal 29.9-35.2 [facility] Comment on above: Performed By: #### C MP, BNP, TSHRFT4 #### [facility] [address] [place] [address] Dr. Sy Casillas MCV (RBC) [Entitic vol] 79.0 fL Critically low 81.0-99.0 [facility] Comment on above: Performed By: #### C MP, BNP, TSHRFT4 #### [facility] [address] [place] [address] Dr. Sy Casillas MONO # 0.7 103/ul Normal 0.3-0.8 [facility] Comment on above: Performed By: #### C MP, BNP, TSHRFT4 #### [facility] [address] [place] [address] Dr. Sy Casillas Monocytes/100 WBC (Bld) 5.0 % Normal 1.7-12.0 [facility] Comment on above: Performed By: #### C MP, BNP, TSHRFT4 #### [facility] [address] [place] [address] Dr. Sy Casillas NEUT # 11.0 103/ul Critically high 1.4-6.5 [facility] Comment on above: Performed By: #### C MP, BNP, TSHRFT4 #### [facility] [address] [place] [address] Dr. Sy Casillas Neutrophils/100 WBC (Bld) 83.9 % Critically high 43.0-75.0 [facility] Comment on above: Performed By: #### C MP, BNP, TSHRFT4 #### [facility] [address] [place] [address] Dr. Sy Casillas Platelet mean volume (Bld) [Entitic vol] 10.3 fL Normal 9.5-13.5 [facility] Comment on above: Performed By: #### C MP, BNP, TSHRFT4 #### [facility] [address] [place] [address] Dr. Sy Casillas PLT 212 103/ul Normal 150-450 [facility] Comment on above: Performed By: #### C MP, BNP, TSHRFT4 #### [facility] [address] [place] [address] Dr. Sy Casillas RBC 5.43 106/ul Critically high 4.20-5.40 [facility] Comment on above: Performed By: #### C MP, BNP, TSHRFT4 #### [facility] [address] [address] [address] Sy Casillas WBC 13.1 103/ul Critically high 4.0-11.0 [facility] Comment on above: Performed By: #### C MP, BNP, TSHRFT4 #### [facility] [address] [address] [address] Sy Casillas LIPID PROFILEon 09-15-2022 CHOL-HDL RATIO NORM SEE BELOW Normal [facility] Comment on above: Result Comment: 3.3 - 4.4 LOW RISK 4.4 - 7.1 AVERAGE RISK 7.1 - 11.0 MODERATE RISK >11.0 HIGH RISK Performed By: #### C MP, BNP, TSHRFT4 #### [facility] [address] [address] [address] Sy Casillas Cholesterol [Mass/Vol] 147 mg/dL Normal <=200 [facility] Comment on above: Performed By: #### C MP, BNP, TSHRFT4 #### [facility] [address] [address] [address] Sy Casillas Cholesterol in HDL [Mass/Vol] 53 mg/dL Normal 40-60 [facility] Comment on above: Performed By: #### C MP, BNP, TSHRFT4 #### [facility] [address] [address] [address] Sy Casillas Cholesterol in LDL [Mass/Vol] 84.2 mg/dL Normal [facility] Comment on above: Performed By: #### C MP, BNP, TSHRFT4 #### [facility] [address] [address] [address] Sy Casillas Cholesterol.total/ Cholesterol in HDL [Mass ratio] 2.8 {ratio} Normal [facility] Comment on above: Performed By: #### C MP, BNP, TSHRFT4 #### [facility] [address] [address] [address] Sy Casillas HDL NORMAL > or = 60 mg/dl - LO W CARDIOVASCULAR RISK <40 mg/dl - HIGH CARDIOVASCULAR RISK Normal [facility] Comment on above: Performed By: #### C MP, BNP, TSHRFT4 #### [facility] [address] [address] [address] Sy Casillas LDL CALC NORMAL SEE BELOW Normal [facility] Comment on above: Result Comment: <100 mg/dl OPTIMAL 100 - 129 mg/dl NEAR OR ABOVE OPTIMAL 130 - 159 mg/dl BORDERLINE HIGH 160 - 189 mg/dl HIGH >190 mg/dl VERY HIGH Performed By: #### C MP, BNP, TSHRFT4 #### [facility] [address] [address] [address] Sy Casillas Triglyceride [Mass/Vol] 49 mg/dL Normal <=150 [facility] Comment on above: Performed By: #### C MP, BNP, TSHRFT4 #### [facility] [address] [address] [address] Sy Casillas VLDL CALC 9.8 mg/dL Normal [facility] Comment on above: Performed By: #### C MP, BNP, TSHRFT4 #### [facility] [address] [place] [address] Dr. Sy Casillas PROF 14(COMP METB)on 023 Albumin [Mass/Vol] 4.0 g/dL Normal 3.4-5.0 [facility] Comment on above: Performed By: #### C MP, BNP, TSHRFT4 #### [facility] [address] [address] [address] Sy Casillas Albumin/Globulin [Mass ratio] 1.3 {ratio} Normal [facility] Comment on above: Performed By: #### C MP, BNP, TSHRFT4 #### [facility] [address] [address] [address] Sy Casillas ALP [Catalytic activity/Vol] 99 U/L Normal 46-116 [facility] Comment on above: Performed By: #### C MP, BNP, TSHRFT4 #### [facility] [address] [address] [address] Sy Casillas ALT [Catalytic activity/Vol] 20 U/L Normal 14-59 [facility] Comment on above: Performed By: #### C MP, BNP, TSHRFT4 #### [facility] [address] [address] [address] Sy Casillas Anion gap [Moles/Vol] 13.3 mmol/L Normal [facility] Comment on above: Performed By: #### C MP, BNP, TSHRFT4 #### [facility] [address] [place] [address] Dr. Sy Casillas AST [Catalytic activity/Vol] 13 U/L Critically low 15-37 [facility] Comment on above: Performed By: #### C MP, BNP, TSHRFT4 #### [facility] [address] [place] [address] Dr. Sy Casillas Bilirubin [Mass/Vol] 0.6 mg/dL Normal 0.2-1.0 [facility] Comment on above: Performed By: #### C MP, BNP, TSHRFT4 #### [facility] [address] [place] [address] Dr. Sy Casillas Calcium [Mass/Vol] 9.7 mg/dL Normal 8.5-10.1 [facility] Comment on above: Performed By: #### C MP, BNP, TSHRFT4 #### [facility] [address] [place] [address] Dr. Sy Casillas Chloride [Moles/Vol] 107 mmol/L Normal 98-107 [facility] Comment on above: Performed By: #### C MP, BNP, TSHRFT4 #### [facility] [address] [place] [address] Dr. Sy Casillas CO2 [Moles/Vol] 29.0 mmol/L Normal 21.0-32.0 [facility] Comment on above: Performed By: #### C MP, BNP, TSHRFT4 #### [facility] [address] [place] [address] Dr. Sy Casillas Creatinine [Mass/Vol] 0.65 mg/dL Normal 0.55-1.02 [facility] Comment on above: Performed By: #### C MP, BNP, TSHRFT4 #### [facility] [address] [address] [address] Sy Casillas EGFR-AF VINCENTIAN >60 Normal >=60 [facility] Comment on above: Performed By: #### C MP, BNP, TSHRFT4 #### [facility] [address] [address] [address] Sy Casillas EGFR-NON AF VINCENTIAN >60 Normal >=60 [facility] Comment on above: Performed By: #### C MP, BNP, TSHRFT4 #### [facility] [address] [address] [address] Sy Casillas Globulin (S) [Mass/Vol] 3.1 g/dL Normal [facility] Comment on above: Performed By: #### C MP, BNP, TSHRFT4 #### [facility] [address] [address] [address] Sy Casillas Glucose [Mass/Vol] 149 mg/dL Critically high 74-106 [facility] Comment on above: Performed By: #### C MP, BNP, TSHRFT4 #### [facility] [address] [address] [address] Sy Casillas Potassium [Moles/Vol] 4.3 mmol/L Normal 3.5-5.1 [facility] Comment on above: Performed By: #### C MP, BNP, TSHRFT4 #### [facility] [address] [address] [address] Sy Casillas Protein [Mass/Vol] 7.1 g/dL Normal 6.4-8.2 [facility] Comment on above: Performed By: #### C MP, BNP, TSHRFT4 #### [facility] [address] [address] [address] Sy Casillas Sodium [Moles/Vol] 145 mmol/L Normal 136-145 [facility] Comment on above: Performed By: #### C MP, BNP, TSHRFT4 #### [facility] [address] [address] [address] Sy Casillas Urea nitrogen [Mass/Vol] 19.0 mg/dL Critically high 7.0-18.0 [facility] Comment on above: Performed By: #### C MP, BNP, TSHRFT4 #### [facility] [address] [place], [place] [address] Dr. Sy Casillas Urea nitrogen/Creatinin e [Mass ratio] 29.2 mg/mg Normal [facility] Comment on above: Performed By: #### C MP, BNP, TSHRFT4 #### [facility] [address] [address] [address] Sy Casillas Office Visiton 06-20-2022 Follow-up visit [id number] Angélica Shen 1940 F Date Provider Department Center 06/20/2022 VIVIANE BOLTON [facility] Family History Problem Relation Age of Onset Coronary artery disease Mother Diabetes Mother Alcohol abuse Father Family Status - Relation Status Age at Mother Father Level of Service:77685 MO OFFICE/OUTPATIENT ESTABLISHED LOW MDM 20-29 MIN Reason for Visit and Comments: Coronary Artery Disease [187] Atrial Fibrillation [80] Hypertension [489551] Normal [facility] Encounters Encounter Date Encounter Type Care Provider Facility Start: 12-20-2023 End: 12-20-2023 ambulatory Ana Bill MD Work Phone: Hematology/Oncology Comment on above: 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); Pancytopenia (HCC); Immunocompromised (HCC) Start: 12-20-2023 End: 12-20-2023 Telemedicine consultation with patient Ana Bill MD Work Phone: Hematology/Oncology Start: 11-22-2023 Telephone encounter Ana Bill MD Work Phone: Hematology/Oncology Comment on above: 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 (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 to 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 from 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 11 48 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 ) Start: 11-20-2023 End: 11-20-2023 ambulatory Aneta Krueger Facility:[facility] Start: 11-20-2023 End: 11-20-2023 Departed Referred [facility] Path [facility] Start: 11-19-2023 End: 11-19-2023 Specialty Pharmacy Flory Blackburn [facility] Comment on above: SPP Oral Oncology/he matology - Medication Refill (Imatinib 400mg) 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); Pancytopenia (HCC); Immunocompromised (HCC); Coronary artery disease without angina pectoris, unspecified vessel or lesion type, unspecified whether [place] or transplanted heart Start: 10-29-2023 Telephone encounter Ana Bill MD Work Phone: Hematology/Oncology Comment on above: 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 (Medication Received) Start: 10-18-2023 End: 10-18-2023 ambulatory Aan Bill MD Work Phone: Hematology/Oncology Comment on above: 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); Pancytopenia (HCC); Atrial fibrillation, unspecified type (HCC); Coronary artery disease without angina pectoris, unspecified vessel or lesion type, unspecified whether [place] or transplanted heart; Immunocompromised (HCC) Start: 10-18-2023 End: 10-18-2023 Telemedicine consultation with patient Ana Bill MD Work Phone: [facility] Start: 10-02-2023 Telephone encounter Lachelle Reyez Work Phone: Hematology/Oncology Comment on above: Opened In Error (sen t on incorrect pt ) Start: 10-01-2023 End: 10-12-2023 ambulatory MD Darby Hamlin Facility:CD:[id number] Start: 09-26-2023 Refill Lamberto morris MD, PhD Work Phone: Hematology/Oncology Comment on above: Refill Request SPP Oral Oncology/he matology - Medication Refill (Venclexta) Start: 09-20-2023 ambulatory Denver Calle [facility] Start: 09-20-2023 Chart abstracting Latosha Austin Research Coordinator Work Phone: Hematology/Oncology Comment on above: Research (IRB 5024: Collection of Blood & Bone Marrow from Normal [employer] Patients for Research Purposes) Refill Request Start: 09-20-2023 Patient encounter procedure Denver Calle [facility] Comment on above: SPP Oral Oncology/he matology - Treatment Referral (Venclexta); Insurance Authorization ([place] Not Required) Start: 09-20-2023 Telephone encounter Krista Auguste Hem atology/Oncology Comment on above: Medication Assistanc e Program ([facility] PATIENT PROGRAM; APPROVED FOR DATES: 09/20/2023 - 07/15/2024) Start: 09-20-2023 Evaluation and management of inpatient SUDROSEANNAO JERICHO Facility:[facility] Start: 09-19-2023 End: 09-20-2023 ambulatory MD Darby Hamlin Facility:[facility] Start: 09-18-2023 End: 09-18-2023 ambulatory NON STAFF Facility:[facility] Start: 09-18-2023 End: 09-18-2023 Departed Referred [facility] Start: 09-18-2023 End: 09-19-2023 ambulatory MD Darby Hamlin Facility:[facility] [place] Start: 08-31-2023 End: 09-01-2023 ambulatory TRUCK SALES REPRESENTATIVE Aurea L Jose Facility:[facility] Start: 08-31-2023 End: 08-31-2023 Lab Drop off Aurea L Jose [facility] Start: 07-18-2023 ambulatory MD Darby Hamlin Facil ity:[facility] Start: 04-27-2023 End: 04-27-2023 ambulatory [facility] Start: 03-28-2023 ambulatory MD Darby Hamlin Facil ity:[facility] [place] Start: 03-02-2023 End: 03-02-2023 ambulatory [facility] Start: 12-27-2022 End: 12-28-2022 ambulatory MD Darby Hamlin Facility:[facility] Start: 12-19-2022 End: 12-20-2022 ambulatory MD Darby Hamlin Facility:[facility] Start: 12-19-2022 End: 12-19-2022 Lab Drop off Darby Hamlin [facility] Start: 12-12-2022 End: 12-13-2022 ambulatory MD Darby Hamlin Facility:[facility] Start: 12-12-2022 End: 12-12-2022 Lab Drop off Darby Hamlin [facility] Start: 11-14-2022 [facility] Start: 11-08-2022 End: 11-09-[address] RORY WEST . Facility:[facility] Start: 11-06-2022 End: 11-07-2022 ambulatory DARBY HAMLIN Facility:[facility] Start: 11-01-2022 End: 11-02-2022 ambulatory DARBY HAMLIN Facility:[facility] Start: 11-01-2022 End: 11-01-[address] [facility] Start: 10-18-2022 End: 10-19-2022 ambulatory DARBY HAMLIN Facility:[facility] Start: 10-04-2022 End: 10-05-2022 ambulatory DARBY HAMLIN Facility:[facility] Start: 09-25-2022 End: 09-25-2022 ambulatory [facility] Start: 09-15-2022 End: 09-16-[address] DOCTOR PÉREZ Facility:[facility] Start: 09-13-2022 End: 09-13-2022 ambulatory PEYTON Villanueva Work Phone: [facility] Work Phone: Start: 09-13-2022 End: 09-13-2022 Departed Referred PEYTON Villanueva Work Phone: [facility]-Lab [facility] [place] Work Phone: Start: 07-17-[address] ANA ROSA REDDING . Facil ity:[facility] Start: 06-20-2022 End: 06-20-2022 ambulatory VIVIANE [facility] Procedures Date Procedure Procedure Detail Performing Clinician Start: 09-28-2023 Antibody screen SHAZIA STEWART Comment on above: Order Comment: Speci men Type: BLOOD SPECIMENOrdering Facility: [facility] Address: [address] [place] [address] Performed By: #### T SCR ####CC [facility] BLOOD BANKCLIA [id number] [address] Start: 09-24-2023 Antibody screen SHAZIA STEWART Comment on above: Order Comment: Speci men Type: BLOOD SPECIMENOrdering Facility: [facility] Address: [address] [place] [address] Performed By: #### T SCR ####CC [facility] BLOOD BANKCLIA [id number] [address] OF [place] Start: 09-21-2023 Echocardiography SHAZIA SALEH Start: 09-20-2023 Antibody screen SHAZIA STEWART Comment on above: Order Comment: Speci men Type: BLOOD SPECIMENOrdering Facility: [facility] Address: [address] [place] [address] Performed By: #### B ELISA PENALOZA ####CC [facility] BLOOD BANKCLIA [id number] [address] [place]#### BBRABI ####[facility] LABCLIA [id number] [place] [address] [place] Coronary artery bypass graft Darby Hamlin Comment on above: 2015 Plan of Treatment Date Care Activity Detail Author Start: 03-22-2024 Hemoglobin A1c measurement HbA1C [facility] Start: 03-16-2024 Influenza vaccination Influenz a Vaccine (Season Ended) [facility] Start: 12-21-2023 End: 12-21-2023 Specialty Pharmacy [facility] Comment on above: Refill - Imatinib (3 0DS) - Call daughter (Yuli) Refill - Imatinib (3 0DS) - Call daughter (Yuli) ask the rph - imatninb was stopped on 12/02 not resuming? Start: 12-17-2023 End: 12-17-2023 Specialty Pharmacy 12/17/2023 9:00 AM EDT Specialty Pharmacy [facility] [id number] [place] [address] Pharmacist, Specialty[facility] [address] [facility] [place] [address] Refill - Imatinib (30DS) - Call daughter (Yuli) [facility] Comment on above: Refill - Imatinib (3 0DS) - Call daughter (Yuli) Start: 07-16-2023 Advance Directive Discussion Advance Directive Discussion [facility] Start: 07-16-2023 Behavioral Health Screening Behavioral Health Screening [facility] Start: 07-16-2023 Depression Assessment Depression Ass essment [facility] Start: 03-16-2023 Influenza vaccination Influenza Vacc ine (#1) [facility] Start: 09-13-2022 Superficial Wound Culture Superficial Wound Culture [facility] Start: 10-15-2020 Covid-19 Vaccine (3 - Moderna risk series) Covid-19 Vaccine (3 - Moderna risk series) [facility] Start: 2007 Screening for osteoporosis Bone Density Screening [facility] Start: 2002 RSV Vaccine (1 - 1-d ose 60+ series) RSV Vaccine (1 - 1-dose 60+ series) [facility] Start: 1961 Shingrix Vaccine (1 of 2) Shingrix Vaccine (1 of 2) [facility] Start: 1961 Urine microalbumin profile DTaP,Tdap,Td Vaccine (1 - Tdap) [facility] Start: 1960 Hepatitis B surface antibody level LDL Cholesterol [facility] Start: 1952 Diabetic foot examination Diabetic Foot Exam [facility] Start: 1952 Glaucoma screening Dilated Retinal E xam [facility] Start: 1952 Hepatitis B screening Urine Al bumin:Creatinine Ratio [facility] Start: 1948 Pneumococcal Vaccine : 65+ (1 of 2 - PCV) Pneumococcal Vaccine: 65+ (1 of 2 - PCV) [facility] Start: 1947 Hemoglobin A1c [facility] Immunizations Immunization Date Immunization Notes Care Provider Edgardo longo 09-17-2020 SARS-CoV-2 (COVID-19 ) mRNA-1273 vaccine Darby Hamlin [facility] 08-20-2020 SARS-CoV-2 (COVID-19 ) mRNA-1273 vaccine Darby Hamlin [facility] Payers Date Payer Category Payer Medicare [id number] 2023 Medicare [id number] 1957 Medicare [id number] 1957 Self-pay 1940 Unknown [id number] 2.16.840.1.324709.3.579.2 .593 1942 Unknown [id number] 2.16.840.1.932599.3.579.2 .593 1942 Unknown [id number] 2.16.840.1.952293.3.579.2 .593 1942 Unknown [id number] 2.16.840.1.968263.3.579.2 .593 1942 Unknown [id number] 2.16.840.1.298185.3.579.2 .593 1942 Unknown [id number] 2.16.840.1.792249.3.579.2 .593 1942 Unknown [id number] 2.16.840.1.269464.3.579.2 .593 1942 Unknown [id number] 2.16.840.1.159229.3.579.2 .593 1942 Unknown [id number] 2.16.840.1.562812.3.579.2 .727 1942 Unknown [id number] 2.16.840.1.398011.3.579.2 .727 1942 Unknown [id number] 2.16.840.1.928931.3.579.2 .727 1942 Unknown [id number] 2.16.840.1.488186.3.579.2 .727 1942 Unknown [id number] 2.16.840.1.342016.3.579.2 .727 1942 Unknown [id number] 2.16.840.1.848545.3.579.2 .727 1942 Unknown [id number] 2.16.840.1.415459.3.579.2 .727 1942 Unknown [id number] 2.16.840.1.552401.3.579.2 .727 1942 Unknown [id number] 2.16.840.1.862314.3.579.2 .727 1942 Unknown [id number] 2.16.840.1.293509.3.579.2 .727 1940 Unknown [id number] 2.16.840.1.095666.3.579.2 .727 Private Health Insurance [facility] [id number] Unknown [id number] 2.16.840.1.200010.3.579.2 .531 Unknown [id number] 2.16.840.1.312735.3.579.2 .531 Social History Date Type Detail Facility Tobacco smoking stat [facility] Unknown if ever smoked [facility] Work Phone: Start: 1940 Sex Assigned At Female F [facility] Start: 12-12-2022 End: 08-31-2023 Tobacco smoking status [facility] smoked tobacco (finding[facility] Comment on above: denies Tobacco smoking status Never Ian Bonner [facility] Comment on above: denies Start: 03-02-2022 End: 12-20-2023 Sex Assigned At Female [facility] Start: 07-03-2012 Tobacco smoking stat us NHIS Ex-smoker [facility] End: 07-03-1962 History of tobacco use Current smoker [facility] End: 07-03-1962 History of tobacco use Cigarette Smoker [facility] Start: 07-03-2012 Tobacco use and exposure Smokeless tobacco non-user [facility] Start: 03-02-2022 End: 09-26-2023 Alcohol intake Current drinker of alcohol (finding) [facility] Start: 03-02-2022 End: 12-20-2023 History of Social function [facility] Start: 1940 Sex Assigned At Not on file C [facility] Start: 10-18-2023 Gender identity Identifies as female gender (finding) [facility] Medical Equipment Procedure Code Equipment Code Equipment Origin al Text Equipment Identifier Dates Test strips, See Instructions, 100 EA, 3, check Blood sugar daily and prn E11.9, [facility] [id number], Supply, 162, cm, 12/12/22 14:53:00 EDT, Height/Length [...] visit. Either the patient or their legal call center support representative has been informed of the risks and benefits of -- and alternatives to -- treatment through a remote evaluation and consents to proceed with the evaluation remotely. [facility] Department of Hematology and Medical Oncology Leukemia Program Myrna Shen ID: [id number] 12/20/2023 PRIMARY ONCOLOGIST: Aneta Krueger MD PRIMARY [...] Diagnosis Date Hypertension Allergies: ALLERGIES Allergen Reactions Sterling Fruits Intolerance Surgical History: PAST SURGICAL HISTORY [...] Lymph 1.00 - 4.00 k/uL 0.60 Abs Boundary <0.87 k/uL 0.01 Abs Eosin <0.46 k/uL [...] 09/20/23 1133 Result status: Final Resulting lab: [facility] Value: Laboratory Accession Number: [id number] Doctor: Shazia Saleh Pathologist: N/A Surgical Pathology [...] which included preparing to see the patient, [id number]-vfwv patient care, completing clinical documentation, obtaining and/or reviewing separately obtained history, performing a medically appropriate examination, counseling and educating the patient/family/caregiver, ordering medications, tests, or procedures, and communicating with other HCPs (not separately reported). Ana Bill MD Hematology and Medical Oncology, Leukemia Division 12/20/2023 8:52 AM Pager - [phone] cc: Aneta Krueger MD [place] documented in this encounter [facility] 12-20-[address] [facility] 11-23-2023 Telephone encounter Note Call to Yuli to [employer], she states her mother is scheduled to receive platelets at 1pm today. No further action needed. Delilah Garcia RN November 23, 2023 10:23 AM [facility] Work Phone: 11-23-2023 Miscellaneous Notes Call to Yuli to [employer], she states her mother is scheduled to receive platelets at 1pm today. No further action needed. Delilah Garcia RN November 23, 2023 10:23 AM Called and spoke with patient's daughter, Yuli, she is in touch with the local cancer center, [place], to try to get her mother an appointment for platelets today. She will callback if the center needs a physician's approval to give platelets. Myrna Shen('s) daughter: Yuli is calling Ana Bill MD today regarding Necktie Operator Pockets And Pieces - Other (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 to 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 from 17 to 11 48 hours ) Patient daughter stated she is scheduled for platlets on Sunday but they're concerned she wont be able to make it through the weekend. Patient has been identified by name and birthdate. Duration of symptoms: 2 days Requesting response back: call Home [phone] (home) [phone] (work) Janki Ellison November 22, 2023 documented in this encounter [facility] 11-23-2023 Telephone encounter Note Called and spoke with patient's daughter, Yuli, she is in touch with the local cancer center, [place], to try to get her mother an appointment for platelets today. She will callback if the center needs a physician's approval to give platelets. [facility] 11-22-2023 Telephone encounter Note Myrna Shen('s) daughter: Yuli is calling Ana Bill MD today regarding Necktie Operator Pockets And Pieces - Other (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 to 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 from 17 to 11 48 hours ) Patient daughter stated she is scheduled for platlets on Sunday but they're concerned she wont be able to make it through the weekend. Patient has been identified by name and birthdate. Duration of symptoms: 2 days Requesting response back: call Home [phone] (home) [phone] (work) Janki Ellison November 22, 2023 [facility] 11-19-2023 History of Present illness Narrative Images from the original note were not included. This visit was conducted as a virtual visit. I have communicated my name and active licensure. The patient's identity and physical location were verified at the time of this visit. Either the patient or their legal call center support representative has been informed of the risks and benefits of -- and alternatives to -- treatment through a remote evaluation and consents to proceed with the evaluation remotely. [facility] Department of Hematology and Medical Oncology Leukemia Program Myrna Shen ID: [id number] 11/19/2023 PRIMARY ONCOLOGIST: Aneta Krueger MD PRIMARY [...] Diagnosis Date Hypertension Allergies: ALLERGIES Allergen Reactions Sterling Fruits Intolerance Surgical History: PAST SURGICAL HISTORY [...] Lymph 1.00 - 4.00 k/uL 0.60 Abs Boundary <0.87 k/uL 0.01 Abs Eosin <0.46 k/uL [...] 09/20/23 1133 Result status: Final Resulting lab: [facility] Value: Laboratory Accession Number: [id number] Doctor: Shazia Saleh Pathologist: N/A Surgical Pathology [...] which included preparing to see the patient, [id number]-so-ewqm patient care, completing clinical documentation, obtaining and/or reviewing separately obtained history, performing a medically appropriate examination, counseling and educating the patient/family/caregiver, ordering medications, tests, or procedures, and communicating with other HCPs (not separately reported). Ana Bill MD Hematology and Medical Oncology, Leukemia Division 11/19/2023 3:34 PM Pager - [phone] cc: Aneta Krueger MD [place] documented in this encounter [facility] 11-19-[address] [facility] 11-19-2023 History of Present illness Narrative [...] laboratory parameters, disease state markers and outcomes. [employer] Assessment Patient confirmed: Yes Med/dose confirmed: Yes Supplies needed: No supplies needed Missed doses: No Estimated days supply on hand: 10 Copay amount: 0 Delivery method: FedEx Signature required: Waived on patient request Delivery address: [address] [place] [address] Delivery date: 11/22/23 Questions or concerns for [...] facility-administered medications on file prior to visit. [facility] Specialty Pharmacy Visit Assessment - [...] 8.1, Plt 8, ANC 0.49 - BCR/ABL: [place] chromosome identified per 10/18/23 DH note - LFTs: ALT 21, AST 16, T.bili 0.6 - CrCl: 89.91 (Adj BW 62.3 kg) - HBV Panel: negative on 09/20/23 Estimated Start Date Info: Per the discretion of Dr. Bill. Estimated Treatment Duration: Until disease progression or unacceptable toxicity. Gloria Wu documented in this encounter [facility] 11-19-[address] [facility] 10-30-2023 Miscellaneous Notes Discussed with patients daughter and with Dr. Krueger - start taking imatinib today and continue weekly lab checks. Ana Bill MD Myrna Shen daughter: Yuli is calling Ana Bill MD today regarding Necktie Operator Pockets And Pieces - Other (Medication Received) Yuli calling to inform office that imatinib has been delivered. States she was informed to call office when they received medication to go over instructions. Requesting response back: [phone] (home) [phone] (work) Duration of symptoms: N/A Patient has been identified by name and birthdate. Romana Tripp October 29, 2023 documented in this encounter [facility] 10-19-[address] [facility] 10-19-[address] [facility] 10-18-2023 History of Present illness Narrative Images from the original note were not included. [facility] Department of Hematology and Medical Oncology Leukemia Program Myrna Shen ID: [id number] 10/18/2023 REFERRING PHYSICIAN: Shazia Saleh [phone] [facility] [address] PRIMARY CARE PHYSICIAN: Ana Rosa Redding MD [...] Diagnosis Date Hypertension Allergies: ALLERGIES Allergen Reactions Sterling Fruits Intolerance Surgical History: PAST SURGICAL HISTORY [...] Lymph 1.00 - 4.00 k/uL 0.60 Abs Boundary <0.87 k/uL 0.01 Abs Eosin <0.46 k/uL [...] 09/20/23 1133 Result status: Final Resulting lab: [facility] Value: Laboratory Accession Number: [id number] Doctor: Shazia Saleh Pathologist: N/A Surgical Pathology [...] which included preparing to see the patient, oftj-zl-lveu patient care, completing clinical documentation, obtaining and/or [...] Leukemia Division 10/18/2023 3:27 PM Pager - [phone] cc: Shazia Saleh [id number] [facility] [id number] Ana Rosa Redding MD [address] [facility] [id number] MD Gladys Glass documented in this encounter [facility] 10-18-[address] [facility] 10-12-[address] [facility] 10-12-[address] [facility] 10-02-2023 Miscellaneous Notes securemessage to Dr Pedraza and Myrna Justice [id number] stone not been scheduled at for a PET scan and we have no order in [facility] for the requested PET scan. Please enter the order into [facility] for scheduling. Thank you in advance. 10-02-23 Dr Pedraza [address] Dr Ana Bill to secure message. Reply from Dr Ana Bill Yes I'm seeing her on - not sure why she is getting a PET scan though? She has AML, I can look into it tomorrow! 10-03-23 Secure message from Vinh, wali morning I sent a telephone encounter for a pet request yesterday it was meant for another patient I was working on at the same time I attached the wrong info I sent a message saying to disregard the request I sent for this patient because it was wrong. This form is used for MAIN CAMPUS APPOINTMENTS ONLY. Is this request for a [facility] [place] PET scan appointment? Yes: Chipper: Vinh Randolph Requesting Person (Last Name, First Name): myrna shen Area Code + Phone/Pager: [phone] home , work Who do we call [...] COORD REVIEW MC documented in this encounter [facility] 09-28-[address] [facility] 09-27-[address] [facility] 09-26-2023 History of Present illness Narrative [...] laboratory parameters, disease state markers and outcomes. [employer] Assessment Patient confirmed: Yes Med/dose confirmed: Yes Supplies needed: No supplies needed Estimated days supply on hand: 2 Copay amount: 0 Payment confirmed: Yes Delivery method: Correspondent Signature required: Required ([facility] [place], Medicaid, patient preference) Delivery address: [place] [address] [facility] Delivery date: 09/27/23 Questions or concerns for the pharmacist?: No [facility] Visit Assessment - [...] and water, swallowed whole - No grapefruit, [place] oranges, or star fruit - If a [...] Denver Calle RPh documented in this encounter [facility] 09-26-[address] [facility] 09-26-[address] [facility] 09-25-[address] [facility] 09-24-[address] [facility] 09-23-[address] [facility] 09-22-[address] [facility] 09-22-2023 Note HNO ID: [id number] Author: NOTE, INTERFACE, ? Service: ? Author Type: ? Type: Progress Notes Filed: 09/22/2023 03:36 Note Text: Epic Scheduled Downtime: 09/22/2023 1:00:00 AM to 09/22/2023 3:24:[address] [facility] 09-21-2023 Note [phone] [id number] [facility] 09-21-[address] [facility] 09-21-[address] [facility] 09-20-2023 Note HNO ID: [id number] Author: ?, ?, ? Service: ? Author Type: ? Type: Progress Notes Filed: 09/21/2023 07:13 Note Text: Patient has been enrolled in a new $[id number] yoli for Dx: AML through [employer] 08/21/2023 to 08/20/2024. [facility] 09-20-[address] [facility] 09-20-[address] [facility] 09-20-2023 Miscellaneous Notes THE [facility] PATIENT ASSISTANCE FORM FOR POSACONAZOLE WAS COMPLETED AND FAXED TO: [phone] FOR CONSIDERATION. RECEIVED CALL FROM INÉS AT [facility] PATIENT PROGRAM ADVISING THE PATIENT HAS BEEN APPROVED FOR ASSISTANCE WITH POSACONAZOLE, AT NO COST TO THE PATIENTS FOR THE DATES: 09/20/2023 - 07/15/2024. CONTACTED THE PATIENT AND INFORMED OF THE APPROVAL, THE [facility] AND PRESCRIBER INFORMED OF THE APPROVAL FOR ASSISTANCE. documented in this encounter [facility] 09-20-[address] [facility] 04-27-2023 Note [facility] Subjective Myrna Shen is a 82 y.o. 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 She saw a record changer and was treated with prednisone. In October [...] Inhibitors Cough Ascorbic Acid (Vitamin C) Unknown Sterling And Derivatives Sterling Bioflavonoids Losartan Other reaction(s): hair loss Medications [...] , Rfl: atorva (more content not included)... [facility] 03-02-2023 Note [facility] Subjective Myrna Shen is a 82 y.o. 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 She saw a record changer and was treated with prednisone. In October [...] Inhibitors Cough Ascorbic Acid (Vitamin C) Unknown Sterling And Derivatives Sterling Bioflavonoids Losartan Other reaction(s): hair loss Medications [...] Disp: , R (more content not included)... [facility] 11-23-2022 Note case [facility] 11-14-2022 Note [facility] Date of Telehealth Visit: 11/14/22 The patient was notified that using 3rd libertarian telecommunication application (e.g., [employer]) is not HIPPA compliant and may carry some privacy risks. Yes The visit was conducted [id number] with the use of audio and video technology Macey. between patient and provider for a virtual [...] Allergies: Allergies Allergen Reactions Sal Inhibitors Cough Sterling And Derivatives Losartan Other reaction(s): hair loss [...] dizziness, no hea (more content not included)... [facility] 11-02-2022 Note Ordering follow up B MP for lasix increase from 20mg to 40mg Patient called, her symptoms have improved regarding LE edema No GALVAN, SOB. [facility] 11-01-2022 Note - [id number] at le ast 5 for age, gender, [...] she is to report to the ER [facility] 11-01-2022 Note - Blood pressures co ntrolled today, 125/88 -Continue Norvasc 10 mg, Toprol tartrate 25 mg twice daily [facility] 11-01-2022 Note - S/p CABG 2015 -Stable at this time, continue medication aspirin 81 mg, Lipitor 40 mg, as needed nitro which she has not needed [facility] 11-01-2022 Note - HFpEF, NYHA II, mi [...] medication -States she cannot afford anything like [facility], she is allergic to SAL/ARB [facility] 11-01-2022 Note Patient here to disc uss [...] All other systems reviewed and are negative. [facility] 11-01-2022 Note [facility] Reason for visit: Afib, [...] it at last visit. She saw a record changer and was treated with prednisone. Otherwise she has some shortness of breath on exertion and some occasional leg swelling but no chest pain. PMH: Past Medical History: Diagnosis Date Arrhythmia Atrial fibrillation ([facility]/HCC) Cancer ([facility]) Coronary artery disease Hyperlipidemia Hypertension PSH: [...] Allergies: Allergies Allergen Reactions Sal Inhibitors Cough Sterling And Derivatives Losartan Other reaction(s): hair loss [...] route. predniSONE ( (more content not included)... [facility] 09-25-2022 Note [facility] Subjective Myrna Shen is a 82 y.o. year old female patient being seen for 3 mo follow up Coronary Artery Disease, Hypertension, and Atrial Fibrillation She had labs 2 weeks ago. Denies chest pain, SOB, and bleeding on Eliquis. 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 She saw a record changer and was treated with prednisone. Otherwise she [...] Allergies Allergies Allergen Reactions Sal Inhibitors Cough Sterling And Derivatives Losartan Other reaction(s): hair loss [...] tablet as neede (more content not included)... 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 [facility] 06-20-2022 Note [facility] NOTE [...] continues to persist, she was seen by record changer and they believe this could be autoimmune. [...] She did well. 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 Allergies Allergen Reactions Sal Inhibitors Cough Sterling And Derivatives Losartan Other reaction(s): hair loss Medications: Current Outpatient Medications on File Prior to Visit Medication Sig Dispense Refill apixaban (Eliquis) 5 mg tablet Take 1 tablet (5 mg) by mouth in the morning and at bedtime for 7 days. 14 tablet 0 amLODIPine (Norvasc) 10 mg tablet Take 1 tablet by mouth in (more content not included)... [facility] Evaluation + Plan note Future Appointments Appointment Date:12/27/2022 01:40:00 PM Scheduled Provider:Darby Hamlin MD Location:[facility] Appointment Type:[facility] Evaluation + Plan note Future Appointments Appointment Date:09/19/2023 03:15:00 PM Scheduled Provider:Darby Hamlin MD Location:[facility] Appointment Type: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 Pancytopenia (HCC) Other pancytopenia Atrial fibrillation, unspecified type (HCC) Coronary artery disease without angina pectoris, unspecified vessel or lesion type, unspecified whether diomede or transplanted heart Immunocompromised (HCC) Unspecified immunity deficiency [facility] Diagnosis 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 Acute myeloid leukemia, without mention of having achieved remission documented in this encounter [facility] note* Diagnosis 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 Pancytopenia (HCC) Other pancytopenia Immunocompromised (HCC) Unspecified immunity deficiency Coronary artery disease without angina pectoris, unspecified vessel or lesion type, unspecified whether diomede or transplanted heart [facility] Diagnosis 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 No data available for this section [facility] No data available for this section [facility] Summary Purpose Family History No [...] Dates Debbie Villanueva PA-C Attending Provider Active Licensing Director Relationship Specialty Start Date End Date Ana Rosa Redding MD [address] [place] [address] PCP - General Family Medicine 07/03/12 Licensing Director Relationship Specialty Start Date End Date Ana Rosa Redding MD [address] [place] [address] PCP - General Family Medicine 07/03/12 Licensing Director Relationship Specialty Start Date End Date Ana Rosa Redding MD [address] [place] [address] PCP - General Family Medicine 07/03/12 Licensing Director Relationship Specialty Start Date End Date Ana Rosa Redding MD [address], [place] [address] PCP - General Family Medicine 07/03/12 Licensing Director Relationship Specialty Start Date End Date Ana Rosa Redding MD [address], [place] [address] PCP - General Family Medicine 07/03/12 Licensing Director Relationship Specialty Start Date End Date Ana Rosa Redding MD [address], [place] [address] PCP - General Family Medicine 07/03/12 Licensing Director Relationship Specialty Start Date End Date Ana Rosa Redding MD [address], [place] [address] PCP - General Family Medicine 07/03/12 Licensing Director Relationship Specialty Start Date End Date Ana Rosa Redding MD [address], [place] [address] PCP - General Family Medicine 07/03/12 Licensing Director Relationship Specialty Start Date End Date Ana Rosa Redding MD [address], [facility] PCP - General Family Medicine 07/03/12 Team Status: Inactive Member Role Status Dates NON STAFF Attending Provider Active Start: Deana [facility] 2023 End: September 18, 2023 Team Status: Inactive Member Role Status Dates Aneta Krueger MD Attending Provider Active St art: November 20, 2023 End: November 20, 2023 Licensing Director Relationship Specialty Start Date End Date Ana Rosa Redding MD [address] [place] [address] PCP - General Family Medicine 07/03/12 Goals (unrecognized section and content) Goals may be documented in a n alternate section No data available for this section No data available for this section No data available for this sectionGoals may be documented in an alternate section INFORMATION SOURCE (unrecogn ized section and content) DATE CREATED AUTHOR 11/13/2022 [facility] DATE CREATED AUTHOR AUTHOR'S ORGANIZ ATION 04/29/2023 [facility] DATE CREATED AUTHOR AUTHOR'S ORGANIZ ATION 11/20/2023 [facility] DATE CREATED AUTHOR AUTHOR'S ORGANIZ ATION 11/21/2023 [facility] DATE CREATED AUTHOR AUTHOR'S ORGANIZ ATION 12/21/2023 [facility] Source Comments (unrecognize d section and content) In the event this informatio n is protected by the Federal Confidentiality of Alcohol and Drug Abuse Patient Records regulations: The Federal rules restrict any use of the information to criminally investigate or prosecute any alcohol or drug abuse patient.[facility] the event this information is protected by the Federal Confidentiality of Alcohol and Drug Abuse Patient Records regulations: The Federal rules restrict any use of the information to criminally investigate or prosecute any alcohol or drug abuse patient.[facility] Center[facility] the event this information is protected by the Federal Confidentiality of Alcohol and Drug Abuse Patient Records regulations: The Federal rules restrict any use of the information to criminally investigate or prosecute any alcohol or drug abuse patient.[facility] Center[facility] the event this information is protected by the Federal Confidentiality of Alcohol and Drug Abuse Patient Records regulations: The Federal rules restrict any use of the information to criminally investigate or prosecute any alcohol or drug abuse patient.[facility] Center[facility] the event this information is protected by the Federal Confidentiality of Alcohol and Drug Abuse Patient Records regulations: The Federal rules restrict any use of the information to criminally investigate or prosecute any alcohol or drug abuse patient.[facility] Center[facility] the event this information is protected by the Federal Confidentiality of Alcohol and Drug Abuse Patient Records regulations: The Federal rules restrict any use of the information to criminally investigate or prosecute any alcohol or drug abuse patient.[facility] Center[facility] the event this information is protected by the Federal Confidentiality of Alcohol and Drug Abuse Patient Records regulations: The Federal rules restrict any use of the information to criminally investigate or prosecute any alcohol or drug abuse patient.[facility] Center[facility] the event this information is protected by the Federal Confidentiality of Alcohol and Drug Abuse Patient Records regulations: The Federal rules restrict any use of the information to criminally investigate or prosecute any alcohol or drug abuse patient.[facility] Center[facility] the event this information is protected by the Federal Confidentiality of Alcohol and Drug Abuse Patient Records regulations: The Federal rules restrict any use of the information to criminally investigate or prosecute any alcohol or drug abuse patient.[facility] Center[facility] the event this information is protected by the Federal Confidentiality of Alcohol and Drug Abuse Patient Records regulations: The Federal rules restrict any use of the information to criminally investigate or prosecute any alcohol or drug abuse patient.[facility] Center[facility] the event this information is protected by the Federal Confidentiality of Alcohol and Drug Abuse Patient Records regulations: The Federal rules restrict any use of the information to criminally investigate or prosecute any alcohol or drug abuse patient.[facility] Center[facility] the event this information is protected by the Federal Confidentiality of Alcohol and Drug Abuse Patient Records regulations: The Federal rules restrict any use of the information to criminally investigate or prosecute any alcohol or drug abuse patient.[facility] CenterIn the event this information is protected by the Federal Confidentiality of Alcohol and Drug Abuse Patient Records regulations: The Federal rules restrict any use of the information to criminally investigate or prosecute any alcohol or drug abuse patient.[facility] Reason for Visit (unrecogniz ed [...] incorrect pt Reason Comments Leukemia Reason Comments 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 [employer] provides no warranty or guarantee of the accuracy or completeness of information in this document.
[2023-12-21] MEDS: 0.9 % SODIUM CHLORIDE 1,000 ML 75 ML IV (21:55)
[2023-12-21] MEDS: MAGNESIUM OXIDE 400 MG TABLET PO (21:56)
[2023-12-21] MEDS: METOPROLOL TARTRATE 50 MG TABLET PO (21:56)
[2023-12-21] MEDS: POTASSIUM CHLORIDE 10 MEQ ER TABLET 20 MEQ PO (21:56)
[2023-12-22] VITALS (14 sets, daily range): BP systolic 131–175; BP diastolic 61–74; PULSE 58–72; TEMP 36.1–36.9; O2SAT 88–100
[2023-12-22] MEDS: PIPERACILLIN SODIUM/TAZOBACTAM 3.375 GM in 0.9 % SODIUM CHLORIDE 50 ML IV ×3 (02:45→20:48)
[2023-12-22 05:42] LABS: Mean Corpuscular HGB Conc 32.8 g/dL (29.9-35.2); Mean Corpuscular Hemoglobin 27.9 pg (26.7-34.0); Mean Corpuscular Volume 85.1 fL (81.0-99.0); Mean Platelet Volume 10.8 fL (9.5-13.5); Red Blood Count 2.22 10^6/uL (4.20-5.40); Red Cell Distribution Width 17.2 % (11.0-15.0)
[2023-12-22 06:08] LABS: Alanine Aminotransferase 16 U/L (14-59); Albumin Globulin Ratio 0.8; Albumin Level 2.1 g/dL (3.4-5.0); Alkaline Phosphatase 90 U/L (46-116); Anion Gap 10.7; Aspartate Amino Transferase 15 U/L (15-37); BUN Creatinine Ratio 28.6; Bilirubin Total 0.9 mg/dL (0.2-1.0); Carbon Dioxide 24.8 mmol/L (21.0-32.0); Chloride 108 mmol/L (98-107); Estimated GFR (African America >60 (>=60); Estimated GFR (Non-African Ame >60 (>=60); Globulin 2.6 g/dL; Glucose 85 mg/dL (74-106); Potassium 3.5 mmol/L (3.5-5.1); Sodium 140 mmol/L (136-145); Total Protein 4.7 g/dL (6.4-8.2)
[2023-12-22] MEDS: MAGNESIUM OXIDE 400 MG TABLET PO ×3 (06:09→21:13)
[2023-12-22] MEDS: POTASSIUM CHLORIDE 10 MEQ ER TABLET 20 MEQ PO ×3 (06:09→21:13)
[2023-12-22 06:26] LABS: Hematocrit 18.9 % (36.0-48.0); Hemoglobin 6.2 g/dL (12.0-16.0); Platelet Count 14 10^3/uL (150-450); White Blood Count 0.5 10^3/uL (4.0-11.0)
[2023-12-22] MEDS: METOPROLOL TARTRATE 50 MG TABLET PO ×2 (09:27→21:13)
--- NOTE | 2023-12-22 11:37 | RESP.RT ---
Nsg placed on 1L NC
[2023-12-22] MEDS: ACETAMINOPHEN 325 MG TABLET 650 MG PO (12:28)
[2023-12-22] MEDS: ACYCLOVIR 200 MG CAPSULE 400 MG PO ×2 (12:28→21:13)
[2023-12-22] MEDS: POSACONAZOLE 100 MG 300 EACH PO (12:28)
[2023-12-22] MEDS: ISOSORBIDE MONONITRATE 30 MG TAB.ER.24H PO (12:28)
[2023-12-22] MEDS: DIPHENHYDRAMINE HCL 25 MG CAPSULE PO (12:29)
--- NOTE | 2023-12-22 13:44 | P.HP_ITS ---
HPI H&P: HPI History of Present Illness Chief complaint: Weakness, Neutropenia with fever, Pneumonia Narrative: 83 y/o female with a history of AML on chemo presents to ER with fever. Follows with oncology and gets transfusions for pancytopenia. Received PRBC few days ago and platelets day prior. At home developed fever up to 101. C/o increased weakness and fatigue. History of neutropenia and immune compromised so presented to ER. Afebrile in ER. WBC 0.7 and chest x-ray with infiltrate. Discussed with oncology and recommended admission and antibiotics. Started IV zosyn. Hgb decreased overnight. Continues to c/o severe weakness and hard to move legs. Opioid HPI Opioid Management Most Recent Opioid Data: Last Pain Scale 0 12/05/23 05:25 Last Pain Assessment 12/22/23 13:00 Last ORT Total Score 0 12/21/23 21:35 Last ORT Risk Category Low Risk 12/21/23 21:35 Review of Systems ROS Constitutional Reports: fever, chills and fatigue Cardiovascular Denies: chest pain, palpitations or edema Respiratory Denies: shortness of breath, cough or wheezing Gastrointestinal Denies: abdominal pain, nausea, vomiting or diarrhea Genitourinary Denies: painful urination PFSH [facility] Medical History (Updated 12/22/23 @ 09:56 by Ayad Robins MD) Protein calorie malnutrition ?E46 - Unspecified protein-calorie malnutrition (ICD-10) Dehydration ?E86.0 - Dehydration (ICD-10) UTI (urinary tract infection) ?N39.0 - Urinary tract infection, site not specified (ICD-10) Leukocytosis ?D72.829 - Elevated white blood cell count, unspecified (ICD-10) Pleural effusion on right ?J90 - Pleural effusion, not elsewhere classified (ICD-10) Neutropenic fever ?D70.9 - Neutropenia, unspecified (ICD-10) ?R50.81 - Fever presenting with conditions classified elsewhere (ICD-10) Thrombocytopenia ?D69.6 - Thrombocytopenia, unspecified (ICD-10) Symptomatic anemia ?D64.9 - Anemia, unspecified (ICD-10) Acute leukemia ?C95.00 - Acute leukemia of unspecified cell type not having achieved remission (ICD-10) Malignancy ?C80.1 - Malignant (primary) neoplasm, unspecified (ICD-10) A-fib ?I48.91 - Unspecified atrial fibrillation (ICD-10) Hyperlipidemia ?E78.5 - Hyperlipidemia, unspecified (ICD-10) Surgical History S/P CABG x 4 ?Z95.1 - Presence of aortocoronary bypass graft (ICD-10) Family History (Updated 10/11/23 @ 18:08 by Bonny Jaramillo) Mother Family history of CHF (congestive heart failure) Social History (Updated 10/11/23 @ 18:09 by Bonny Jaramillo) Within the past year, how often did you have a drink containing alcohol: monthly or less Within the past year, how many standard drinks containing alcohol did you have on a typical day: 1 or 2 Within the past year, how often did you have six or more drinks on one occasion: never Total score: 0 Score interpretation: A score less than 3 is consistent with normal alcohol consumption. Smoking status: Never smoker Non-prescribed substance use: denies use Previous occupational history: retired Highest level of school completed/degree received: some college, no degree Are you now , , , , never or living with a partner: In a typical week, how many times do you talk on the telephone with family, friends, or neighbors: 3 or more times per week How often do you get together with friends or relatives: 3 or more times per week How often do you attend gnosticist or mosque services: never Do you belong to any clubs or organizations such as gnosticist groups unions, fraternal or athletic groups, or school groups: no Total score: 2 Score interpretation: A score of greater than or equal to 2 indicates the lowest level of social isolation. Little interest or pleasure in doing things: several days Feeling down, depressed, or hopeless: several days Feel stressed/tense/nervous/anxious/difficulty sleeping: to some extent Life stressor details: cancer diagnosis Do you think of yourself as: straight/heterosexual Gender Identity: female Meds Home Medications and Allergies Home Medications ?Medication ?Instructions ?Recorded ?Confirmed ?Type allopurinol 300 mg tablet 300 mg PO DAILY 10/11/23 12/21/23 History posaconazole 100 mg tablet,delayed 300 mg PO Q24H 10/11/23 12/21/23 History release metoprolol tartrate 50 mg tablet 50 mg PO Q12H #60 tabs 10/13/23 12/21/23 Rx escitalopram oxalate 10 mg tablet 10 mg PO QD #30 tabs 10/21/23 12/21/23 Rx magnesium oxide 400 mg (241.3 mg 400 mg PO TID #90 tabs 10/21/23 12/21/23 Rx magnesium) tablet potassium chloride 10 mEq 20 meq (2 x 10 mEq) PO TID #90 tabs 10/21/23 12/21/23 Rx tablet,extended release(part/cryst) ondansetron HCl 8 mg tablet 8 mg PO Q12H PRN nausea and 11/29/23 12/21/23 History vomiting acyclovir 400 mg tablet 400 mg PO BID 12/22/23 12/22/23 History furosemide 40 mg tablet 40 mg PO DAILY 12/22/23 12/22/23 History imatinib 400 mg tablet 400 mg PO DAILY 12/22/23 12/22/23 History isosorbide mononitrate 30 mg 30 mg PO DAILY 12/22/23 12/22/23 History tablet,extended release 24 hr metformin 500 mg tablet 500 mg PO BID 12/22/23 12/22/23 History prochlorperazine maleate 10 mg 10 mg PO Q8H PRN nausea and 12/22/23 12/22/23 History tablet vomiting Allergies Allergy/AdvReac Type Severity Reaction Status Date / Time ORANGES AdvReac Uncoded 10/11/23 15:49 Exam Constitutional Vital Signs, click to edit/add: Last Vital Signs Temp 98.4 F 12/22/23 07:32 Pulse 62 12/22/23 07:32 Resp 16 12/22/23 07:32 BP 164/62 H 12/22/23 07:32 Pulse Ox 100 12/22/23 09:30 O2 Del Method Room Air 12/22/23 09:30 O2 Flow Rate 2 12/22/23 09:00 Documenting provider has reviewed patient's vital signs: yes Common normals: no apparent distress, oriented x3 and alert HENMT Common normals: normocephalic Eye Common normals: PERRL and EOMs intact bilaterally Respiratory Common normals: normal respiratory effort and clear to auscultation bilaterally Cardio Common normals: regular rate, regular rhythm, no gallops, no murmurs and no rub GI Common normals: Normal to inspection, nondistended, normoactive bowel sounds present and non-tender Extremity Common normals: no pedal edema Results Labs Labs: Short CBC 12/21/23 12/22/23 Range/Units 19:07 03:58 WBC 0.7 L* 0.5 L* (4.0-11.0) 10^3/uL Hgb 7.2 L 6.2 L* (12.0-16.0) g/dL Hct 20.8 L* 18.9 L* (36.0-48.0) % Plt Count 18 L* 14 L* (150-450) 10^3/uL BMP 12/21/23 12/22/23 19:07 03:58 Sodium 139 140 Potassium 3.7 3.5 Chloride 106 108 H Carbon Dioxide 26.1 24.8 BUN 15.0 12.0 Creatinine 0.63 0.42 L Glucose 121 H 85 Calcium 8.3 L 8.0 L Liver Function 12/21/23 12/22/23 Range/Units 19:07 03:58 Total Bilirubin 1.2 H 0.9 (0.2-1.0) mg/dL AST 13 L 15 (15-37) U/L ALT 17 16 (14-59) U/L Alkaline Phosphatase 107 90 (46-116) U/L Albumin 2.5 L 2.1 L (3.4-5.0) g/dL Urine 12/21/23 Range/Units 20:45 Urine Color Yellow (YELLOW) Urine Clarity Clear (CLEAR) Urine pH 6.0 (5.0-9.0) Ur Specific [place] 1.025 (1.005-1.025) Urine Protein 100 A (NEG/TRACE) mg/dL Urine Glucose (UA) Negative (NEGATIVE) mg/dL Assessment and Plan Assessment and Plan (1) Pneumonia: (2) Neutropenia with fever: (3) Pancytopenia: (4) AML (acute myeloblastic leukemia): (5) Immune deficiency disorder, disease or syndrome: (6) DM2 (diabetes mellitus, type 2): (7) HTN (hypertension): (8) CAD (coronary artery disease): Plan Presented with fever in neutropenic state and pneumonia in chest x-ray. Continue zosyn and await cultures. Hgb decreased and give 2 units PRBC. Severe weakness and start PT/OT. Resume home medication. Will need to monitor vitals and labs. If platelets continue to decrease will need to replace. Plan for at least a 2 midnight stay for inpatient medically necessary services and will make inpatient.
[2023-12-22] MEDS: FUROSEMIDE 40 MG/4 ML VIAL 20 MG IV (16:44)
[2023-12-23] VITALS (7 sets, daily range): BP systolic 145–164; BP diastolic 62–77; PULSE 60–73; TEMP 36.1–36.7; O2SAT 92–96
[2023-12-23] MEDS: PIPERACILLIN SODIUM/TAZOBACTAM 3.375 GM in 0.9 % SODIUM CHLORIDE 50 ML IV ×3 (04:02→21:42)
[2023-12-23] MEDS: POTASSIUM CHLORIDE 10 MEQ ER TABLET 20 MEQ PO ×3 (05:30→21:38)
[2023-12-23] MEDS: MAGNESIUM OXIDE 400 MG TABLET PO ×3 (05:30→21:38)
[2023-12-23 05:49] LABS: Hematocrit 26.4 % (36.0-48.0); Hemoglobin 8.9 g/dL (12.0-16.0); Mean Corpuscular HGB Conc 33.7 g/dL (29.9-35.2); Mean Corpuscular Hemoglobin 28.4 pg (26.7-34.0); Mean Corpuscular Volume 84.3 fL (81.0-99.0); Mean Platelet Volume 12.7 fL (9.5-13.5); Red Blood Count 3.13 10^6/uL (4.20-5.40); Red Cell Distribution Width 15.5 % (11.0-15.0)
[2023-12-23 06:06] LABS: Alanine Aminotransferase 17 U/L (14-59); Albumin Globulin Ratio 0.8; Albumin Level 2.2 g/dL (3.4-5.0); Alkaline Phosphatase 93 U/L (46-116); Anion Gap 9.4; Aspartate Amino Transferase 13 U/L (15-37); BUN Creatinine Ratio 23.8; Bilirubin Total 1.2 mg/dL (0.2-1.0); Calcium 8.1 mg/dL (8.5-10.1); Carbon Dioxide 26.6 mmol/L (21.0-32.0); Chloride 108 mmol/L (98-107); Estimated GFR (African America >60 (>=60); Estimated GFR (Non-African Ame >60 (>=60); Globulin 2.7 g/dL; Glucose 80 mg/dL (74-106); Sodium 141 mmol/L (136-145); Total Protein 4.9 g/dL (6.4-8.2)
[2023-12-23 07:14] LABS: Platelet Count 14 10^3/uL (150-450); White Blood Count 0.6 10^3/uL (4.0-11.0)
[2023-12-23] MEDS: POTASSIUM CHLORIDE 40 MEQ in 0.9 % SODIUM CHLORIDE 250 ML 67.5 MEQ IV (07:58)
[2023-12-23 08:01] LABS: Glucometer 86 mg/dL (74-106)
--- NOTE | 2023-12-23 08:10 | P.PN_ITS ---
Progress Note: Subjective Subjective Interval history: Patient still very weak this morning. No shortness of breath this morning generalized weakness especially lower extremities. Exam Constitutional Vital Signs, click to edit/add: Last Vital Signs Temp 97.2 F L 12/23/23 06:09 Pulse 60 12/23/23 06:09 Resp 20 12/23/23 06:09 BP 164/77 H 12/23/23 06:09 Pulse Ox 93 L 12/23/23 06:09 O2 Del Method Room Air 12/23/23 06:09 O2 Flow Rate 2 12/22/23 09:00 Documenting provider has reviewed patient's vital signs: yes Common normals: apparent distress (Generalized obvious) HENMT Common normals: normocephalic and head/scalp atraumatic Chest Common normals: inspection of chest normal and palpation of chest normal Respiratory Common normals: abnormal respiratory effort (Mild conversational dyspnea) and not clear to ascultation bilaterally Effort & inspection: respiratory distress (Mild conversational dyspnea) Auscultation: rales bilateral and rhonchi right lower Cardio Common normals: regular rate and regular rhythm GI Common normals: Normal to inspection, nondistended, normoactive bowel sounds present Extremity Common normals: abnormal to inspection General: edema (1+ edema, normal for her) Other: Left foot bruising. Tender to the touch. No calor Progress Note: Objective Labs Labs: Short CBC 12/23/23 Range/Units 04:20 WBC 0.6 L* (4.0-11.0) 10^3/uL Hgb 8.9 L (12.0-16.0) g/dL Hct 26.4 L (36.0-48.0) % Plt Count 14 L* (150-450) 10^3/uL BMP 12/23/23 04:20 Sodium 141 Potassium 3.0 L Chloride 108 H Carbon Dioxide 26.6 BUN 10.0 Creatinine 0.42 L Glucose 80 Calcium 8.1 L Liver Function 12/23/23 Range/Units 04:20 Total Bilirubin 1.2 H (0.2-1.0) mg/dL AST 13 L (15-37) U/L ALT 17 (14-59) U/L Alkaline Phosphatase 93 (46-116) U/L Albumin 2.2 L (3.4-5.0) g/dL Progress Note: A&P Assessment and Plan (1) Pneumonia: (2) Neutropenia with fever: (3) Pancytopenia: (4) AML (acute myeloblastic leukemia): (5) Immune deficiency disorder, disease or syndrome: (6) DM2 (diabetes mellitus, type 2): (7) HTN (hypertension): (8) CAD (coronary artery disease): Plan Admission findings: Mild bradycardia, uncontrolled hypertension, respiratory distress, acute hypoxia with O2 saturation of 88%, neutropenia, thrombocytopenia, anemia secondary to her acute myelogenous leukemia with immune deficiency complicated now by right lower lobe pneumonia and possible UTI resulting in neutropenic sepsis-continue with current antibiotics, cultures hopefully will be back tomorrow. Right lower lobe pneumonia-consider repeat chest x-ray tomorrow. Hypoxia is improved Acute myelogenous leukemia-pancytopenia secondary to AML and treatment. CBC was pending this morning. She has received 2 units of PRBCs. Consider platelet transfusion. L DM2 (diabetes mellitus, type 2): Hold off on the metformin, unable to take it with her chemotherapy. Did place placement on Accu-Cheks and insulin sliding scale HTN (hypertension): Continue home medications. Consider increased Imdur with elevated BNP. She does have some peripheral edema will change patient to IV Lasix instead of p.o. CAD (coronary artery disease): No active chest pain. Severe protein calorie malnutrition-diet management Left foot pain secondary to trauma-check x-ray Admission status: Patient with neutropenic sepsis secondary to right lower lobe pneumonia and possible UTI-medically necessary treatment will span 2 midnights. Inpatient status.
--- NOTE | 2023-12-23 08:19 | XR_ITS ---
The [address] [address] Patient Name: DIANA HINOJOSA MRN: [id number] date: 1940 Sex: F Assigned Patient Location: [place] Current Patient Location: [place] Accession/Order Number: [id number] Exam Date: 12/23/2023 10:10 Report Date: 12/23/2023 11:49 At the request of: RORY WEST Procedure: XR foot LT min 3V EXAM: XR foot LT min 3V 12/23/2023 FINDINGS: Frontal, oblique and lateral views for 3 views obtained. HISTORY: foot trauma XR/XR foot LT min 3V IMPRESSION: 1. Nonspecific soft tissue swelling predominantly involving the dorsal aspect of the foot seen best on lateral imaging. 2. No acute fracture or dislocation. 3. There is mild hypertrophy of the first metatarsal head with mild arthritic changes involving the first MTP articulation as well as between the first metatarsal head and underlying sesamoids noted. Plantar calcaneal enthesophyte is noted. 4. Negative for radiopaque foreign body. Electronically authenticated by: DAVIDE HAWK Date: 12/23/2023 11:49
[2023-12-23] MEDS: ISOSORBIDE MONONITRATE 30 MG TAB.ER.24H PO (10:19)
[2023-12-23] MEDS: FUROSEMIDE 40 MG TABLET PO (10:21)
[2023-12-23] MEDS: ACYCLOVIR 200 MG CAPSULE 400 MG PO ×2 (10:21→21:38)
[2023-12-23] MEDS: METOPROLOL TARTRATE 50 MG TABLET PO ×2 (10:21→21:38)
[2023-12-23] MEDS: ENSURE HP 237 ML LIQUID PO ×2 (10:22→21:38)
[2023-12-23] MEDS: PROSTAT 15 GM PROTEIN/100 CAL 30 ML LIQUID PACKET PO ×2 (10:22→21:38)
[2023-12-23] MEDS: ACETAMINOPHEN 500 MG TABLET 1000 MG PO (10:30)
[2023-12-23 11:39] LABS: Glucometer 160 mg/dL (74-106)
[2023-12-23] MEDS: POSACONAZOLE 100 MG 300 EACH PO (11:44)
[2023-12-23] MEDS: ALLOPURINOL 300 MG TABLET PO (11:45)
[2023-12-23 16:31] LABS: Glucometer 116 mg/dL (74-106)
[2023-12-23 20:17] LABS: Glucometer 145 mg/dL (74-106)
[2023-12-24] VITALS (8 sets, daily range): BP systolic 135–163; BP diastolic 61–75; PULSE 59–67; TEMP 36.3–36.9; O2SAT 93–97
[2023-12-24] MEDS: POTASSIUM CHLORIDE 10 MEQ ER TABLET 20 MEQ PO ×3 (05:15→21:14)
[2023-12-24] MEDS: PIPERACILLIN SODIUM/TAZOBACTAM 3.375 GM in 0.9 % SODIUM CHLORIDE 50 ML IV ×2 (05:15→15:43)
[2023-12-24] MEDS: MAGNESIUM OXIDE 400 MG TABLET PO ×3 (05:15→21:14)
[2023-12-24 05:16] LABS: Hematocrit 26.1 % (36.0-48.0); Hemoglobin 8.9 g/dL (12.0-16.0); Mean Corpuscular HGB Conc 34.1 g/dL (29.9-35.2); Red Blood Count 3.07 10^6/uL (4.20-5.40); Red Cell Distribution Width 15.9 % (11.0-15.0)
[2023-12-24 05:29] LABS: Platelet Count 10 10^3/uL (150-450); White Blood Count 0.7 10^3/uL (4.0-11.0)
[2023-12-24 05:40] LABS: Alanine Aminotransferase 17 U/L (14-59); Albumin Globulin Ratio 0.8; Albumin Level 2.1 g/dL (3.4-5.0); Alkaline Phosphatase 90 U/L (46-116); Anion Gap 9.4; Aspartate Amino Transferase 13 U/L (15-37); BUN Creatinine Ratio 29.4; Carbon Dioxide 27.6 mmol/L (21.0-32.0); Chloride 108 mmol/L (98-107); Estimated GFR (African America >60 (>=60); Estimated GFR (Non-African Ame >60 (>=60); Globulin 2.6 g/dL; Glucose 85 mg/dL (74-106); Sodium 142 mmol/L (136-145); Total Protein 4.7 g/dL (6.4-8.2)
[2023-12-24] MEDS: POTASSIUM CHLORIDE 40 MEQ in 0.9 % SODIUM CHLORIDE 250 ML 67.5 MEQ IV (07:22)
--- NOTE | 2023-12-24 07:55 | P.PN_ITS ---
Progress Note: Subjective Subjective Interval history: Looks much improved this morning. Exam Constitutional Vital Signs, click to edit/add: Last Vital Signs Temp 97.8 F 12/24/23 05:55 Pulse 67 12/24/23 05:55 Resp 18 12/24/23 05:55 BP 147/64 H 12/24/23 05:55 Pulse Ox 96 12/24/23 05:55 O2 Del Method Room Air 12/24/23 05:55 O2 Flow Rate 2 12/22/23 09:00 Documenting provider has reviewed patient's vital signs: yes Common normals: apparent distress (Looks improved today.) [facility] Common normals: normocephalic and head/scalp atraumatic Chest Common normals: inspection of chest normal and palpation of chest normal Respiratory Common normals: normal respiratory effort and clear to auscultation bilaterally Effort & inspection: no respiratory distress Auscultation: no rales and no rhonchi Cardio Common normals: regular rate and regular rhythm GI Common normals: Normal to inspection, nondistended, normoactive bowel sounds present Extremity Common normals: abnormal to inspection General: edema (1+ edema, normal for her) Other: Left foot bruising. Tender to the touch. No calor Progress Note: Objective Labs Labs: Short CBC 12/24/23 Range/Units 04:23 WBC 0.7 L* (4.0-11.0) 10^3/uL Hgb 8.9 L (12.0-16.0) g/dL Hct 26.1 L (36.0-48.0) % Plt Count 10 L* (150-450) 10^3/uL BMP 12/24/23 04:23 Sodium 142 Potassium 3.0 L Chloride 108 H Carbon Dioxide 27.6 BUN 10.0 Creatinine 0.34 L Glucose 85 Calcium 8.0 L Liver Function 12/24/23 Range/Units 04:23 Total Bilirubin 1.0 (0.2-1.0) mg/dL AST 13 L (15-37) U/L ALT 17 (14-59) U/L Alkaline Phosphatase 90 (46-116) U/L Albumin 2.1 L (3.4-5.0) g/dL Progress Note: A&P Assessment and Plan (1) Pneumonia: (2) Neutropenia with fever: (3) Pancytopenia: (4) AML (acute myeloblastic leukemia): (5) Immune deficiency disorder, disease or syndrome: (6) DM2 (diabetes mellitus, type 2): (7) HTN (hypertension): (8) CAD (coronary artery disease): Plan Admission findings: Mild bradycardia, uncontrolled hypertension, respiratory distress, acute hypoxia with O2 saturation of 88%, neutropenia, thrombocytopenia, anemia secondary to her acute myelogenous leukemia with immune deficiency complicated now by right lower lobe pneumonia and possible UTI resulting in neutropenic sepsis complicated by her immune deficiency-continue with current antibiotics, check cultures later today. She does look much improved today. Still could benefit from a short rehab stay. Right lower lobe pneumonia-consider repeat chest x-ray tomorrow. Hold off lunch x-ray x-ray since doing better Hypokalemia-continue to supplement Acute myelogenous leukemia-pancytopenia secondary to AML and treatment. White blood cell count 9.7. Maintain isolation procedures. Platelet count also significantly low this morning so we will transfuse today. DM2 (diabetes mellitus, type 2): Maintain current diet, sugars pretty stable HTN (hypertension): Continue home medications. Consider increased Imdur with e levated BNP. Maintain current medications CAD (coronary artery disease): No active chest pain. Severe protein calorie malnutrition-diet management-plus supplementation. Change supplement to Ensure clear for tolerance Left foot pain secondary to [id number] negative, just contusion Coagulopathy-secondary to her neutropenic sepsis and AML. No further signs of bruising. Will hold off on repeating labs Admission status: Patient with neutropenic sepsis secondary to right lower lobe pneumonia and possible UTI-medically necessary treatment will span 2 midnights. Inpatient status. Physical therapy to eval patient today for possible rehab placement.
[2023-12-24] MEDS: PROSTAT 15 GM PROTEIN/100 CAL 30 ML LIQUID PACKET PO ×2 (08:21→21:14)
[2023-12-24] MEDS: ACETAMINOPHEN 500 MG TABLET 1000 MG PO (08:24)
[2023-12-24] MEDS: METOPROLOL TARTRATE 50 MG TABLET PO ×2 (08:25→21:14)
[2023-12-24] MEDS: DIPHENHYDRAMINE HCL 25 MG CAPSULE PO (08:25)
[2023-12-24] MEDS: ALLOPURINOL 300 MG TABLET PO (08:25)
[2023-12-24] MEDS: FUROSEMIDE 40 MG TABLET PO (08:42)
[2023-12-24] MEDS: ISOSORBIDE MONONITRATE 30 MG TAB.ER.24H PO (08:42)
[2023-12-24] MEDS: ACYCLOVIR 200 MG CAPSULE 400 MG PO ×2 (08:42→21:14)
[2023-12-24] MEDS: POSACONAZOLE 100 MG 300 EACH PO (08:43)
[2023-12-24] MEDS: ENSURE HP 237 ML LIQUID PO (08:43)
--- OUTSIDE RECORDS SUMMARY | 2023-12-24 09:17 | XMS_ITS | CCD ---
Author Organization [facility] Care Team Providers Care Dance Instructor Name Role Phone PEYTON Villanueva Attending Provider [phone] DARBY HAMLIN Primary Care Unavailable BIBI, DR [...] Consulting Unavailable DARBY HAMLIN Primary Care Unavailable BANDERA, DR BYRON Pyle Consulting Unavailable GRECHNY ., [...] Unavailable MD Darby Hamlin Attending Unavailable Jose, MACHINE ATTENDANT Aurea L Admitting Unavailable Jose, MACHINE ATTENDANT Aurea L Attending Unavailable MD Darby Hamlin Admitting Unavailable NON STAFF Admitting Unavailable NON STAFF Attending Unavailable Aneta Krueger Attending Unavailable Aneta Krueger Admitting Unavailable NON STAFF Attending Provider Unavailable MD Aneta Krueger Attending Provider SHAZIA SALEH Referring Unavailable ANA BILL Attending Unavailable ANA ROSA [place] Primary [facility] Unavailable ANA BILL Attending Unavailable ANA ROSA REDDING [facility] Unavailable ANA BILL Attending Unavailable ANA ROSA REDDING [facility] Unavailable LAMBERTO ECHAVARRIA Attending Unavailable LAMBERTO ECHAVARRIA Admitting Unavailable ANA ROSA REDDING [facility] Unavailable RORY WEST Referring Unavailable Allergies Allergy Classification Reported Allergen(s) Allergy Type Date of Onset Reaction(s) Facility (1 source) lipotropic agents Drug Allergy 3 [facility] Repository (4 sources) Ascorbic Acid; Translations: [ascorbic acid] Drug Allergy Unknown (qualifier value) [facility] (5 sources) Spironolactone; Translations: [spironolactone ] Drug Allergy 3 Eruption of skin (disorder) [facility] (1 source) Angiotensin Converting Enzyme (Sal) Inhibitors; Translations: [SAL INHIBITORS] Propensity to adverse reactions to drug (disorder) 2 [facility] Repository (1 source) Ascorbic Acid; Translations: [ASCORBIC ACID (VITAMIN C)] Drug Allergy 3 [facility] Repository (1 source) Bucklin bioflavonoids; Translations: [CITRUS BIOFLAVONOIDS] Propensity to adverse reactions to drug (disorder) 3 [facility] Repository (1 source) Losartan; Translations: [LOSARTAN] Drug Allergy 2 [facility] Repository (1 source) CITRUS AND DERIVATIVES; Translations: [CITRUS AND DERIVATIVES] Propensity to adverse reactions to drug (disorder) 2 [facility] Repository (14 sources) Bucklin fruit; Translations: [CITRUS FRUITS] Food Allergy 2 Intolerance [facility] Medications Current Medications Medication Drug Class(es) Dates [...] on above: Take 3 tablets by [facility] once daily. 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) use of aspirin; Translations: [ASSISTANT SPA DIRECTOR 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] Onset: 11-13-2022 Episodic Other aftercare (1 source) care home (current) use of anticoagulants; Translations: [[facility] CURRNT USE ANTICOAGULANTS] Onset: 11-13-2022 Episodic Other aftercare (1 source) Other 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) drug therapy; Translations: [OTH ASSISTANT SPA DIRECTOR CURRENT DRUG THERAPY] Onset: 11-13-2022 Episodic Other [...] Range Facil ity CNPNon 11-22-2023 CNPN Normal [facility] [place] 11-20-2023 L Specimen: [id number] Received: 11/20/23 Status: SOUT Req Num: [id number] Spec Type: Impression Subm Dr: Aneta Krueger MD Tissues: PATHPER Procedures: PATHREVIEW Age/ Patient Sex Location Account Attending Physician Myrna Shen 83/F [place] [id number] Aneta Krueger MD SPEC NUM: [id number] RECD: 11/20/23 STATUS: SOUT REQ NUM: [id number] SYBIL: 11/20/[address]: Aneta Krueger MD ENTERED: 11/20/[address]: Maddison Graham SPEC TYPE: Impression DEPT: TERRA Grace ENTERED BY: [id number] RECV BY: [id number] ORDERED: PATHREVIEW ORDERED: PATHREVIEW Pathologist Review Thrombocytopenia Is Noted. No Significant Increase In Schistocytes Or Spherocytes Is Identified. Differential Diagnosis Includes Peripheral Etiology (e.g. ITP, Drug-induced) Vs. Bone Marrow Disorder. Clinical Correlation Is Required. Pancytopenia is noted. Bone marrow pathology should be ruled out. [id number] Specimen: [id number] Received: 11/20/23 Status: RADHA Dempsey Num: [id number] Spec Type: Impression Subm Dr: Aneta Krueger MD Tissues: PATHPER Procedures: PATHREVIEW Patient: Myrna Shen [id number] (Continued) Signed (signature on file) Jesus Guerrier MD 11/20/23 1548 Normal [facility] Consultation Noteon 11-19-19 24 Consultation Note [id number]#1.00TIFF [facility] Consultation Noteon 10-31-19 Consultation Note [id number]#1.00TIFF Normal [facility] Consultation Note [id number]#1.00TIFF Normal [facility] CNPNon 10-29-2023 CNPN Normal [facility] Consultation Noteon 10-29-19 Consultation Note [id number]#1.00TIFF Normal [facility] RAD - MISCon 10-29-2023 RAD - MISC [id number]#1.00TIFF Normal [facility] ED Note-Physicianon 10-15-19 ED Note-Physician [id number]#1.00TIFF [facility] Consultation Noteon 10-10-19 Consultation Note [id number]#1.00TIFF [facility] RAD - MISCon 10-10-2023 RAD - MISC [id number]#1.00TIFF [facility] Correspo ndenceon 10-09-2023 Outside Hospital Correspondence [id number]#1.00TIFF [facility] 10-01-19 [facility] Case Information Case Priority: None Programs: -- Referral Source: Fur Tinter Referral Reason: Care coordination Case Type: Transition Care Management Risk Score: -- Case Status: Enrolled (October 01, 2023) Date Assigned: October 01, 2023 Assigned By: Yordy James Date Enrolled: October 01, 2023 Assigned Primary Personnel: Yordy James Assigned Secondary Personnel: -- Case Physician: Darby Hamlin MD Ongoing 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 Dehydration Hx of [...] this time, has F/U with [facility]. Tate [facility] 10/01 Did you understand your discharge instructions? [...] not available. Patient was d/c from [facility] on 09/29/23 with DX of leukemia. Patient [...] caught sooner. CN did offer appointment with DIPLOMATIC INTERPRETER/TRANSLATOR and patient declined. CN explained TCM program ad gave CN contact information. Patient states she will call if needs arise. Patient denies any further questions or concerns at this time. NO D/C SUMMARY AVAILABLE, ABOVE INFORMATION OBTAINED FROM PATIENT. Communication Events Date: October 01, 2023 Method: Phone call Type: Outbound Duration (min): 11 Outcome: Case discussion Contact Type: student services coordinator Contact Name: Yordy James Notes: TCM#1- see tcm note. Created By: Yordy James Normal [facility] CBC W Auto Differential pane l (Bld)on 09-29-2023 Anisocytosis Ql (Bld) Present Normal [facility] Comment on above: Order Comment: Speci men Type: BLOOD SPECIMENOrdering Facility: [facility] Address: [address] [place] [address] [place] [address] Performed By: #### 5 7021-8 ####[facility] LABCLIA [id number] [place] [address] [place] Basophils (Bld) [#/Vol] 0.00 10*3/uL Normal <0.11 [facility] Comment on above: Order Comment: Speci men Type: BLOOD SPECIMENOrdering Facility: [facility] Address: [address] [place] [address] Performed By: #### 5 7021-8 ####[facility] LABCLIA [id number] [place] [address] [place] Basophils/100 WBC (Bld) 0.0 % Normal [facility] Comment on above: Order Comment: Speci men Type: BLOOD SPECIMENOrdering Facility: [facility] Address: [address] [place] [address] Performed By: #### 5 7021-8 ####[facility] LABIA [id number] [place] [address] [place] BLAST% 9.0 % High <=0.0 [facility] Comment on above: Order Comment: Speci men Type: BLOOD SPECIMENOrdering Facility: [facility] Address: [address] [place] [address] Performed By: #### 5 7021-8 ####[facility] LABCLIA [id number] [place] [address] [place] Dacrocytes LM Ql (Bld) Few Normal [facility] Comment on above: Order Comment: Speci men Type: BLOOD SPECIMENOrdering Facility: [facility] Address: [address] [place] [address] Performed By: #### 5 7021-8 ####[facility] LABIA [id number] [place] [address] [place] Differential cell count method Nom (Bld) Manual Normal [facility] Comment on above: Order Comment: Speci men Type: BLOOD SPECIMENOrdering Facility: [facility] Address: [address] [place] [address] Performed By: #### 5 7021-8 ####[facility] LABCLIA [id number] [place] [address] [place] Eosinophils (Bld) [#/Vol] 0.01 10*3/uL Normal <0.46 [facility] Comment on above: Order Comment: Speci men Type: BLOOD SPECIMENOrdering Facility: [facility] Address: [address] [place] [address] Performed By: #### 5 7021-8 ####[facility] LABCLIA [id number] [place] [address] [place] Eosinophils/100 WBC (Bld) 1.0 % Normal [facility] Comment on above: Order Comment: Speci men Type: BLOOD SPECIMENOrdering Facility: [facility] Address: [address] [place] [address] Performed By: #### 5 7021-8 ####[facility] LABCLIA [id number] [place] [address] [place] Erythrocyte distribution width (RBC) [Ratio] 19.4 % High 11.5-15.0 [facility] Comment on above: Order Comment: Speci men Type: BLOOD SPECIMENOrdering Facility: [facility] Address: [address] [place] [address] Performed By: #### 5 7021-8 ####[facility] LABCLIA [id number] [place] [address] [place] Hematocrit (Bld) [Volume fraction] 24.1 % Low 36.0-46.0 [facility] Comment on above: Order Comment: Speci men Type: BLOOD SPECIMENOrdering Facility: [facility] Address: [address] [place] [address] Performed By: #### 5 7021-8 ####[facility] LABCLIA [id number] [place] [address] [place] Hemoglobin (Bld) [Mass/Vol] 8.1 g/dL Low 11.5-15.5 [facility] Comment on above: Order Comment: Speci men Type: BLOOD SPECIMENOrdering Facility: [facility] Address: [address] [place] [address] Performed By: #### 5 7021-8 ####[facility] LABCLIA [id number] [place] [address] [place] Lymphocytes (Bld) [#/Vol] 0.60 10*3/uL Low 1.00-4.00 [facility] Comment on above: Order Comment: Speci men Type: BLOOD SPECIMENOrdering Facility: [facility] Address: [address] [place] [address] Performed By: #### 5 7021-8 ####[facility] LABCLIA [id number] [place] [address] [place] Lymphocytes/100 WBC (Bld) 49.0 % Normal [facility] Comment on above: Order Comment: Speci men Type: BLOOD SPECIMENOrdering Facility: [facility] Address: [address] [place] [address] Performed By: #### 5 7021-8 ####[facility] LABCLIA [id number] [place] [address] [place] MCH (RBC) [Entitic mass] 30.2 pg Normal 26.0-34.0 [facility] Comment on above: Order Comment: Speci men Type: BLOOD SPECIMENOrdering Facility: [facility] Address: [address] [place] [address] Performed By: #### 5 7021-8 ####[facility] LABCLIA [id number] [place] [address] [place] MCHC (RBC) [Mass/Vol] 33.6 g/dL Normal 30.5-36.0 [facility] Comment on above: Order Comment: Speci men Type: BLOOD SPECIMENOrdering Facility: [facility] Address: [address] [place] [address] Performed By: #### 5 7021-8 ####[facility] LABCLIA [id number] [place] [address] [place] MCV (RBC) [Entitic vol] 89.9 fL Normal 80.0-100.0 [facility] Comment on above: Order Comment: Speci men Type: BLOOD SPECIMENOrdering Facility: [facility] Address: [address] [place] [address] Performed By: #### 5 7021-8 ####[facility] LABCLIA [id number] [place] [address] [place] Monocytes (Bld) [#/Vol] 0.01 10*3/uL Normal <0.87 [facility] Comment on above: Order Comment: Speci men Type: BLOOD SPECIMENOrdering Facility: [facility] Address: [address] [place] [address] Performed By: #### 5 7021-8 ####[facility] LABCLIA [id number] [place] [address] [place] Monocytes/100 WBC (Bld) 1.0 % Normal [facility] Comment on above: Order Comment: Speci men Type: BLOOD SPECIMENOrdering Facility: [facility] Address: [address] [place] [address] Performed By: #### 5 7021-8 ####[facility] LABCLIA [id number] [place] [address] [place] Neutrophils (Bld) [#/Vol] 0.49 10*3/uL Low 1.45-7.50 [facility] Comment on above: Order Comment: Speci men Type: BLOOD SPECIMENOrdering Facility: [facility] Address: [address] [place] [address] Performed By: #### 5 7021-8 ####[facility] LABCLIA [id number] [place] [address] [place] Neutrophils/100 WBC (Bld) 40.0 % Normal [facility] Comment on above: Order Comment: Speci men Type: BLOOD SPECIMENOrdering Facility: [facility] Address: [address] [place] [address] Performed By: #### 5 7021-8 ####[facility] LABCLIA [id number] [place] [address] [place] Nucleated RBC (Bld) [#/Vol] 10*3/uL Normal <0.01 [facility] Comment on above: Order Comment: Speci men Type: BLOOD SPECIMENOrdering Facility: [facility] Address: [address] [place] [address] Performed By: #### 5 7021-8 ####[facility] LABCLIA [id number] [place] [address] [place] Nucleated RBC/100 WBC (Bld) [Ratio] 0.0 /100 WBC Normal [facility] Comment on above: Order Comment: Speci men Type: BLOOD SPECIMENOrdering Facility: [facility] Address: [address] [place] [address] Performed By: #### 5 7021-8 ####[facility] LABCLIA [id number] [place] [address] [place] Ovalocytes LM Ql (Bld) Few Normal [facility] Comment on above: Order Comment: Speci men Type: BLOOD SPECIMENOrdering Facility: [facility] Address: [address] [place] [address] Performed By: #### 5 7021-8 ####[facility] LABIA [id number] [place] [address] [place] Platelet mean volume (Bld) [Entitic vol] 9.7 fL Normal 9.0-12.7 [facility] Comment on above: Order Comment: Speci men Type: BLOOD SPECIMENOrdering Facility: [facility] Address: [address] [place] [address] Performed By: #### 5 7021-8 ####[facility] LABCLIA [id number] [place] [address] [place] Platelets (Bld) [#/Vol] 8 10*3/uL Critically low 150-400 [facility] Comment on above: Order Comment: Speci men Type: BLOOD SPECIMENOrdering Facility: [facility] Address: [address] [place] [address] Result Comment: Resu lts checked and verified.No clot detected. Performed By: #### 5 7021-8 ####[facility] LABIA [id number] [place] [address] [place] Platelets Estimate (Bld) [#/Vol] Decreased Normal [facility] Comment on above: Order Comment: Speci men Type: BLOOD SPECIMENOrdering Facility: [facility] Address: [address] [place] [address] Performed By: #### 5 7021-8 ####[facility] LABCLIA [id number] [place] [address] [place] RBC (Bld) [#/Vol] 2.68 10*6/uL Low 3.90-5.20 [facility] Comment on above: Order Comment: Speci men Type: BLOOD SPECIMENOrdering Facility: [facility] Address: [address] [place] [address] Performed By: #### 5 7021-8 ####[facility] LABCLIA [id number] [place] [address] [place] RBC FRAGMENTS Few Abnormal None Seen [facility] Comment on above: Order Comment: Speci men Type: BLOOD SPECIMENOrdering Facility: [facility] Address: [address] [place] [address] Performed By: #### 5 7021-8 ####[facility] LABCLIA [id number] [place] [address] [place] RED CELL MORPH Reviewed: see result s of individual morphologies Normal [facility] Comment on above: Order Comment: Speci men Type: BLOOD SPECIMENOrdering Facility: [facility] Address: [address] [place] [address] Performed By: #### 5 7021-8 ####[facility] LABIA [id number] [place] [address] [place] WBC (Bld) [#/Vol] 1.23 10*3/uL Low 3.70-11.00 [facility] Comment on above: Order Comment: Speci men Type: BLOOD SPECIMENOrdering Facility: [facility] Address: [address] [place] [address] Result Comment: No c lot detected. Performed By: #### 5 7021-8 ####[facility] LABIA [id number] [place] [address] [place] CNDSon 09-29-2023 CNDS Normal [facility] Comprehensive metabolic 2000 panelon 09-29-2023 Albumin [Mass/Vol] 3.0 g/dL Low 3.9-4.9 [facility] Comment on above: Order Comment: Speci men Type: BLOOD SPECIMENOrdering Facility: [facility] Address: [address] [place] [address] Performed By: #### 2 4323-8, 50750-7 ####[facility] LABIA [id number] [place] [address] [place] ALP [Catalytic activity/Vol] 78 U/L Normal 34-123 [facility] Comment on above: Order Comment: Speci men Type: BLOOD SPECIMENOrdering Facility: [facility] Address: [address] [place] [address] Performed By: #### 2 4323-8, 24370-5 ####[facility] LABIA [id number] [place] [id number] [place] ALT [Catalytic activity/Vol] 21 U/L Normal 7-38 [facility] Comment on above: Order Comment: Speci men Type: BLOOD SPECIMENOrdering Facility: [facility] Address: [address] [place] [address] Performed By: #### 2 4323-8, ####[facility] LABCLIA [id number] [place] [address] [place] Anion gap [Moles/Vol] 6 mmol/L Low 9-18 [facility] Comment on above: Order Comment: Speci men Type: BLOOD SPECIMENOrdering Facility: [facility] Address: [address] [place] [address] Performed By: #### 2 432-8, ####[facility] LABCLIA [id number] [place] [address] [place] AST [Catalytic activity/Vol] 16 U/L Normal 13-35 [facility] Comment on above: Order Comment: Speci men Type: BLOOD SPECIMENOrdering Facility: [facility] Address: [address] [place] [address] Performed By: #### 2 432-8, ####[facility] LABCLIA [id number] [place] [address] [place] Bilirubin [Mass/Vol] 0.6 mg/dL Normal 0.2-1.3 [facility] Comment on above: Order Comment: Speci men Type: BLOOD SPECIMENOrdering Facility: [facility] Address: [address] [place] [address] Performed By: #### 2 4323-8, ####[facility] LABCLIA [id number] [place] [id number] [place] Calcium [Mass/Vol] 8.4 mg/dL Low 8.5-10.2 [facility] Comment on above: Order Comment: Speci men Type: BLOOD SPECIMENOrdering Facility: [facility] Address: [address] [place], [place] [address] Performed By: #### 2 4323-8, ####[facility] LABCLIA [id number] [place] [id number] [place] Chloride [Moles/Vol] 104 mmol/L Normal 97-105 [facility] Comment on above: Order Comment: Speci men Type: BLOOD SPECIMENOrdering Facility: [facility] Address: [address] [place] [address] Performed By: #### 2 4323-8, ####[facility] LABCLIA [id number] [place] [address] [place] CO2 [Moles/Vol] 24 mmol/L Normal 22-30 [facility] Comment on above: Order Comment: Speci men Type: BLOOD SPECIMENOrdering Facility: [facility] Address: [address] [place] [address] Performed By: #### 2 4323-8, ####[facility] LABCLIA [id number] [place] [address] [place] Creatinine [Mass/Vol] 0.48 mg/dL Low 0.58-0.96 [facility] Comment on above: Order Comment: Speci men Type: BLOOD SPECIMENOrdering Facility: [facility] Address: [address] [place] [address] Performed By: #### 2 4323-8, ####[facility] LABCLIA [id number] [place] [address] [place] Creatinine and Glomerular filtration rate.predicted panel (S/P/Bld) 95 mL/min/1.73m??? Normal >=60 [facility] Comment on above: Order Comment: Speci men Type: BLOOD SPECIMENOrdering Facility: [facility] Address: [address] [place] [address] Result Comment: Akiko mated Glomerular Filtration Rate [...] actual GFR. Performed By: #### 2 4323-8, ####[facility] LABCLIA [id number] [place] [address] [place] Glucose [Mass/Vol] 110 mg/dL High 74-99 [facility] Comment on above: Order Comment: Qi reynolds Type: BLOOD SPECIMENOrdering Facility: [facility] Address: [address] [place] [address] Result Comment: The [employer] (ADA) provides guidance for cutoff [...] Standards of Medical Care in Diabetes 2016, [employer]. Diabetes Care. 2016.39(Suppl 1). Performed By: #### 2 432-, ####[facility] LABIA [id number] [place] [address] [place] Potassium [Moles/Vol] 3.7 mmol/L Normal 3.7-5.1 [facility] Comment on above: Order Comment: Qi reynolds Type: BLOOD SPECIMENOrdering Facility: [facility] Address: [address] [place] [address] Performed By: #### 2 4323-8, ####[facility] LABIA [id number] [place] [address] [place] Protein [Mass/Vol] 4.9 g/dL Low 6.3-8.0 [facility] Comment on above: Order Comment: Speci men Type: BLOOD SPECIMENOrdering Facility: [facility] Address: [address] [place] [address] Performed By: #### 2 4323-8, ####[facility] LABCLIA [id number] [place] [address] [place] Sodium [Moles/Vol] 134 mmol/L Low 136-144 [facility] Comment on above: Order Comment: Speci men Type: BLOOD SPECIMENOrdering Facility: [facility] Address: [address] [place] [address] Performed By: #### 2 4323-8, ####[facility] LABIA [id number] [place] [address] [place] Urea nitrogen [Mass/Vol] 11 mg/dL Normal 7-21 [facility] Comment on above: Order Comment: Speci men Type: BLOOD SPECIMENOrdering Facility: [facility] Address: [address] [place] [address] Performed By: #### 2 4323-8, ####[facility] LABCLIA [id number] [place] [address] [place] Magnesium SerPl-mCncon 09-28 Magnesium [Mass/Vol] 2.3 mg/dL Normal 1.7-2.3 [facility] Comment on above: Order Comment: Speci men Type: BLOOD SPECIMENOrdering Facility: [facility] Address: [address] [place] [address] Performed By: #### 2 4323-8, 32551-4 ####[facility] LABCLIA [id number] [place] [id number] [place] NURSING PROGon 09-29-2023 NURSING PROG Normal [facility] PT panel Coag (PPP)on 2023 INR Coag (PPP) [Relative time] 1.2 {INR} Normal 0.9-1.3 [facility] Comment on above: Order Comment: Qi reynolds Type: BLOOD SPECIMENOrdering Facility: [facility] Address: [address] [place] [address] Result Comment: Clementine min K Antagonist (VKA) Therapeutic Range: INR 2 to 3 (Target INR of 2.5)Note: For patients treated with VKA drugs, such as warfarin, the [employer] 2012 Guideline recommends [...] al. Chest 2012, 141:7S-47SNishimura RA, et al. [facility] 2017, 70: 252-289 Performed By: #### 3 4528-0, 04763-3 ####[facility] [id number] [place] [address] [place] PT Coag (PPP) [Time] 12.9 s Normal 9.7-13.0 [facility] Comment on above: Order Comment: Qi reynolds Type: BLOOD SPECIMENOrdering Facility: [facility] Address: [address] [place] [address] Performed By: #### 3 4528-0, 93619-5 ####[facility] LABIA [id number] [place] [address] [place] aPTT PPPon 09-29-2023 aPTT Coag (PPP) [Time] 35.9 s High 23.0-32.4 [facility] Comment on above: Order Comment: Speci men Type: BLOOD SPECIMENOrdering Facility: [facility] Address: [address] [place] [address] Performed By: #### 3 4528-0, 18479-1 ####[facility] LABCLIA [id number] [place] [address] [place] CASE MANAGEMon 09-28-2023 CASE MANAGEM Normal [facility] CASE MANAGEM Normal [facility] CBC W Auto Differential pane l (Bld)on 09-28-2023 Basophils (Bld) [#/Vol] 0.00 10*3/uL Normal <0.11 [facility] Comment on above: Order Comment: Speci men Type: BLOOD SPECIMENOrdering Facility: [facility] Address: [address] [place] [address] Performed By: #### 5 7021-8 ####[facility] LABCLIA [id number] [place] [address] [place] Basophils/100 WBC (Bld) 0.0 % Normal [facility] Comment on above: Order Comment: Speci men Type: BLOOD SPECIMENOrdering Facility: [facility] Address: [address] [place] [address] Performed By: #### 5 7021-8 ####[facility] LABCLIA [id number] [place] [address] [place] BLAST% 14.5 % High <=0.0 [facility] Comment on above: Order Comment: Speci men Type: BLOOD SPECIMENOrdering Facility: [facility] Address: [address] [place] [address] Performed By: #### 5 7021-8 ####[facility] LABCLIA [id number] [place] [address] [place] Dacrocytes LM Ql (Bld) Few Normal [facility] Comment on above: Order Comment: Speci men Type: BLOOD SPECIMENOrdering Facility: [facility] Address: [address] [place] [address] Performed By: #### 5 7021-8 ####[facility] LABCLIA [id number] [place] [address] [place] Eosinophils (Bld) [#/Vol] 0.01 10*3/uL Normal <0.46 [facility] Comment on above: Order Comment: Speci men Type: BLOOD SPECIMENOrdering Facility: [facility] Address: [address] [place] [address] Performed By: #### 5 7021-8 ####[facility] LABCLIA [id number] [place] [address] [place] Eosinophils/100 WBC (Bld) 0.6 % Normal [facility] Comment on above: Order Comment: Speci men Type: BLOOD SPECIMENOrdering Facility: [facility] Address: [address] [place] [address] Performed By: #### 5 7021-8 ####[facility] LABCLIA [id number] [place] [address] [place] Erythrocyte distribution width (RBC) [Ratio] 19.5 % High 11.5-15.0 [facility] Comment on above: Order Comment: Speci men Type: BLOOD SPECIMENOrdering Facility: [facility] Address: [address] [place] [address] Performed By: #### 5 7021-8 ####[facility] LABCLIA [id number] [place] [address] [place] Hematocrit (Bld) [Volume fraction] 25.0 % Low 36.0-46.0 [facility] Comment on above: Order Comment: Speci men Type: BLOOD SPECIMENOrdering Facility: [facility] Address: [address] [place] [address] Performed By: #### 5 7021-8 ####[facility] LABCLIA [id number] [place] [address] [place] Hemoglobin (Bld) [Mass/Vol] 8.3 g/dL Low 11.5-15.5 [facility] Comment on above: Order Comment: Speci men Type: BLOOD SPECIMENOrdering Facility: [facility] Address: [address] [place] [address] Performed By: #### 5 7021-8 ####[facility] LABCLIA [id number] [place] [address] [place] Lymphocytes (Bld) [#/Vol] 0.46 10*3/uL Low 1.00-4.00 [facility] Comment on above: Order Comment: Speci men Type: BLOOD SPECIMENOrdering Facility: [facility] Address: [address] [place] [address] Performed By: #### 5 7021-8 ####[facility] LABCLIA [id number] [place] [address] [place] Lymphocytes/100 WBC (Bld) 28.5 % Normal [facility] Comment on above: Order Comment: Speci men Type: BLOOD SPECIMENOrdering Facility: [facility] Address: [address] [place] [address] Performed By: #### 5 7021-8 ####[facility] LABCLIA [id number] [place] [address] [place] MCH (RBC) [Entitic mass] 30.0 pg Normal 26.0-34.0 [facility] Comment on above: Order Comment: Speci men Type: BLOOD SPECIMENOrdering Facility: [facility] Address: [address] [place] [address] Performed By: #### 5 7021-8 ####[facility] LABCLIA [id number] [place] [address] [place] MCHC (RBC) [Mass/Vol] 33.2 g/dL Normal 30.5-36.0 [facility] Comment on above: Order Comment: Speci men Type: BLOOD SPECIMENOrdering Facility: [facility] Address: [address] [place] [address] Performed By: #### 5 7021-8 ####[facility] LABIA [id number] [place] [address] [place] MCV (RBC) [Entitic vol] 90.3 fL Normal 80.0-100.0 [facility] Comment on above: Order Comment: Speci men Type: BLOOD SPECIMENOrdering Facility: [facility] Address: [address] [place] [address] Performed By: #### 5 7021-8 ####[facility] LABIA [id number] [place] [address] [place] Monocytes (Bld) [#/Vol] 0.03 10*3/uL Normal <0.87 [facility] Comment on above: Order Comment: Speci men Type: BLOOD SPECIMENOrdering Facility: [facility] Address: [address] [place] [address] Performed By: #### 5 7021-8 ####[facility] LABIA [id number] [place] [address] [place] Monocytes/100 WBC (Bld) 1.7 % Normal [facility] Comment on above: Order Comment: Speci men Type: BLOOD SPECIMENOrdering Facility: [facility] Address: [address] [place] [address] Performed By: #### 5 7021-8 ####[facility] LABIA [id number] [place] [address] [place] Neutrophils (Bld) [#/Vol] 0.88 10*3/uL Low 1.45-7.50 [facility] Comment on above: Order Comment: Speci men Type: BLOOD SPECIMENOrdering Facility: [facility] Address: [address] [place] [address] Performed By: #### 5 7021-8 ####[facility] LABCLIA [id number] [place] [address] [place] Neutrophils/100 WBC (Bld) 54.7 % Normal [facility] Comment on above: Order Comment: Speci men Type: BLOOD SPECIMENOrdering Facility: [facility] Address: [address] [place] [address] Performed By: #### 5 7021-8 ####[facility] LABCLIA [id number] [place] [address] [place] Nucleated RBC (Bld) [#/Vol] 10*3/uL Normal <0.01 [facility] Comment on above: Order Comment: Speci men Type: BLOOD SPECIMENOrdering Facility: [facility] Address: [address] [place] [address] Performed By: #### 5 7021-8 ####[facility] LABCLIA [id number] [place] [address] [place] Nucleated RBC/100 WBC (Bld) [Ratio] 0.0 /100 WBC Normal [facility] Comment on above: Order Comment: Speci men Type: BLOOD SPECIMENOrdering Facility: [facility] Address: [address] [place] [address] Performed By: #### 5 7021-8 ####[facility] LABCLIA [id number] [place] [address] [place] Ovalocytes LM Ql (Bld) Few Normal [facility] Comment on above: Order Comment: Speci men Type: BLOOD SPECIMENOrdering Facility: [facility] Address: [address] [place] [address] Performed By: #### 5 7021-8 ####[facility] LABCLIA [id number] [place] [address] [place] Platelet mean volume (Bld) [Entitic vol] Normal [facility] Comment on above: Order Comment: Speci men Type: BLOOD SPECIMENOrdering Facility: [facility] Address: [address] [place] [address] Result Comment: Unab le to Report. Performed By: #### 5 7021-8 ####[facility] LABCLIA [id number] [place] [address] [place] Platelets (Bld) [#/Vol] 7 10*3/uL Critically low 150-400 [facility] Comment on above: Order Comment: Speci men Type: BLOOD SPECIMENOrdering Facility: [facility] Address: [address] [place] [address] Result Comment: Plat elet count confirmed by manual review of peripheral blood smear. Results checked and verified.No clot detected. Performed By: #### 5 7021-8 ####[facility] LABIA [id number] [place] [address] [place] Platelets Estimate (Bld) [#/Vol] Decreased Normal [facility] Comment on above: Order Comment: Speci men Type: BLOOD SPECIMENOrdering Facility: [facility] Address: [address] [place] [address] Performed By: #### 5 7021-8 ####[facility] LABIA [id number] [place] [address] [place] RBC (Bld) [#/Vol] 2.77 10*6/uL Low 3.90-5.20 [facility] Comment on above: Order Comment: Speci men Type: BLOOD SPECIMENOrdering Facility: [facility] Address: [address] [place] [address] Performed By: #### 5 7021-8 ####[facility] LABCLIA [id number] [place] [address] [place] RBC FRAGMENTS Few Abnormal None Seen [facility] Comment on above: Order Comment: Speci men Type: BLOOD SPECIMENOrdering Facility: [facility] Address: [address] [place] [address] Performed By: #### 5 7021-8 ####[facility] LABCLIA [id number] [place] [address] [place] RED CELL MORPH Reviewed: see result s of individual morphologies Normal [facility] Comment on above: Order Comment: Speci men Type: BLOOD SPECIMENOrdering Facility: [facility] Address: [address] [place] [address] Performed By: #### 5 7021-8 ####[facility] LABIA [id number] [place] [address] [place] WBC (Bld) [#/Vol] 1.60 10*3/uL Low 3.70-11.00 [facility] Comment on above: Order Comment: Speci men Type: BLOOD SPECIMENOrdering Facility: [facility] Address: [address] [place] [address] Result Comment: No c lot detected. Performed By: #### 5 7021-8 ####[facility] LABIA [id number] [place] [address] [place] Comprehensive metabolic 2000 panelon 09-28-2023 Albumin [Mass/Vol] 2.9 g/dL Low 3.9-4.9 [facility] Comment on above: Order Comment: Speci men Type: BLOOD SPECIMENOrdering Facility: [facility] Address: [address] [place] [address] Performed By: #### 2 4323-8, 43950-7 ####[facility] LABIA [id number] [place] [address] [place] ALP [Catalytic activity/Vol] 75 U/L Normal 34-123 [facility] Comment on above: Order Comment: Speci men Type: BLOOD SPECIMENOrdering Facility: [facility] Address: [address] [place] [address] Performed By: #### 2 4323-8, 15263-1 ####[facility] LABCLIA [id number] [place] [id number] [place] ALT [Catalytic activity/Vol] 25 U/L Normal 7-38 [facility] Comment on above: Order Comment: Speci men Type: BLOOD SPECIMENOrdering Facility: [facility] Address: [address] [place] [address] Performed By: #### 2 4323-8, ####[facility] LABCLIA [id number] [place] [address] [place] Anion gap [Moles/Vol] 6 mmol/L Low 9-18 [facility] Comment on above: Order Comment: Speci men Type: BLOOD SPECIMENOrdering Facility: [facility] Address: [address] [place] [address] Performed By: #### 2 4323-8, ####[facility] LABCLIA [id number] [place] [address] [place] AST [Catalytic activity/Vol] 17 U/L Normal 13-35 [facility] Comment on above: Order Comment: Speci men Type: BLOOD SPECIMENOrdering Facility: [facility] Address: [address] [place] [address] Performed By: #### 2 4323-8, ####[facility] LABCLIA [id number] [place] [address] [place] Bilirubin [Mass/Vol] 0.7 mg/dL Normal 0.2-1.3 [facility] Comment on above: Order Comment: Speci men Type: BLOOD SPECIMENOrdering Facility: [facility] Address: [address] [place] [address] Performed By: #### 2 4323-8, ####[facility] LABCLIA [id number] [place] [id number] [place] Calcium [Mass/Vol] 8.3 mg/dL Low 8.5-10.2 [facility] Comment on above: Order Comment: Speci men Type: BLOOD SPECIMENOrdering Facility: [facility] Address: [address] [place] [id number] Performed By: #### 2 4323-8, ####[facility] LABCLIA [id number] [place] [id number] [place] Chloride [Moles/Vol] 103 mmol/L Normal 97-105 [facility] Comment on above: Order Comment: Speci men Type: BLOOD SPECIMENOrdering Facility: [facility] Address: [address] [place] [address] Performed By: #### 2 4323-8, ####[facility] LABCLIA [id number] [place] [address] [place] CO2 [Moles/Vol] 25 mmol/L Normal 22-30 [facility] Comment on above: Order Comment: Speci men Type: BLOOD SPECIMENOrdering Facility: [facility] Address: [address] [place] [address] Performed By: #### 2 4323-8, ####[facility] LABCLIA [id number] [place] [address] [place] Creatinine [Mass/Vol] 0.51 mg/dL Low 0.58-0.96 [facility] Comment on above: Order Comment: Speci men Type: BLOOD SPECIMENOrdering Facility: [facility] Address: [address] [place] [address] Performed By: #### 2 4323-8, ####[facility] LABCLIA [id number] [place] [address] [place] Creatinine and Glomerular filtration rate.predicted panel (S/P/Bld) 94 mL/min/1.73m??? Normal >=60 [facility] Comment on above: Order Comment: Speci men Type: BLOOD SPECIMENOrdering Facility: [facility] Address: [address] [place] [address] Result Comment: Akiko mated Glomerular Filtration Rate [...] actual GFR. Performed By: #### 2 4323-8, ####[facility] LABCLIA [id number] [place] [address] [place] Glucose [Mass/Vol] 156 mg/dL High 74-99 [facility] Comment on above: Order Comment: Qi reynolds Type: BLOOD SPECIMENOrdering Facility: [facility] Address: [address] [place] [address] Result Comment: The [employer] (ADA) provides guidance for cutoff [...] Standards of Medical Care in Diabetes 2016, [employer]. Diabetes Care. 2016.39(Suppl 1). Performed By: #### 2 4323-8, ####[facility] LABCLIA [id number] [place] [id number] [place] Potassium [Moles/Vol] 3.4 mmol/L Low 3.7-5.1 [facility] Comment on above: Order Comment: Qi reynolds Type: BLOOD SPECIMENOrdering Facility: [facility] Address: [address] [place] [address] Performed By: #### 2 4323-8, ####[facility] LABCLIA [id number] [place] [address] [place] Protein [Mass/Vol] 5.0 g/dL Low 6.3-8.0 [facility] Comment on above: Order Comment: Speci men Type: BLOOD SPECIMENOrdering Facility: [facility] Address: [address] [place] [address] Performed By: #### 2 4323-8, ####[facility] LABCLIA [id number] [place] [address] [place] Sodium [Moles/Vol] 134 mmol/L Low 136-144 [facility] Comment on above: Order Comment: Speci men Type: BLOOD SPECIMENOrdering Facility: [facility] Address: [address] [place] [address] Performed By: #### 2 4323-8, 47377-9 ####[facility] LABCLIA [id number] [place] [address] [place] Urea nitrogen [Mass/Vol] 12 mg/dL Normal 7-21 [facility] Comment on above: Order Comment: Speci men Type: BLOOD SPECIMENOrdering Facility: [facility] Address: [address] [place] [address] Performed By: #### 2 4323-8, 69085-3 ####[facility] LABCLIA [id number] [place] [address] [place] Magnesium SerPl-mCncon 09-27 Magnesium [Mass/Vol] 2.3 mg/dL Normal 1.7-2.3 [facility] Comment on above: Order Comment: Speci men Type: BLOOD SPECIMENOrdering Facility: [facility] Address: [address] [place] [address] Performed By: #### 2 4323-8, 14687-5 ####[facility] LABCLIA [id number] [place] [id number] [place] PT panel Coag (PPP)on 2023 INR Coag (PPP) [Relative time] 1.2 {INR} Normal 0.9-1.3 [facility] Comment on above: Order Comment: Qi reynolds Type: BLOOD SPECIMENOrdering Facility: [facility] Address: [address] [place] [address] Result Comment: Clementine min K Antagonist (VKA) Therapeutic Range: INR 2 to 3 (Target INR of 2.5)Note: For patients treated with VKA drugs, such as warfarin, the [employer] 2012 Guideline recommends [...] 70: 252-289 Performed By: #### 3 4528-0, 15806-9 ####[facility] LABIA [id number] [address] [address] [place] PT Coag (PPP) [Time] 12.7 s Normal 9.7-13.0 [facility] Comment on above: Order Comment: Qi reynolds Type: BLOOD SPECIMENOrdering Facility: [facility] Address: [address] [place] [address] Performed By: #### 3 4528-0, 16056-7 ####[facility] LABIA [id number] [address] [address] [place] SOCIAL WORKon 09-28-2023 SOCIAL WORK Normal [facility] TYPE + SCREENon 09-28-2023 ABO B Normal [facility] Comment on above: Order Comment: Speci men Type: BLOOD SPECIMENOrdering Facility: [facility] Address: [address] [place] [address] Performed By: #### T SCR ####[facility] BLOOD BANKCLIA [id number] [place] [id number] [place] HISTORICAL AB SCR STATUS Positive Abnormal [facility] [facility] Comment on above: Order Comment: Speci men Type: BLOOD SPECIMENOrdering Facility: [facility] Address: [address] [place] [address] Performed By: #### T SCR ####CC MAIN BLOOD BANKCLIA [id number] [place] [address] [place] Rh Nom (Bld) Positive Normal [facility] Comment on above: Order Comment: Speci men Type: BLOOD SPECIMENOrdering Facility: [facility] Address: [address] [place] [address] Performed By: #### T SCR ####CC MAIN BLOOD BANKCLIA [id number] [place] [address] [place] TYPE AND SCREEN EXPIRATION 10/01/2023 23:59 Normal [facility] Comment on above: Order Comment: Speci men Type: BLOOD SPECIMENOrdering Facility: [facility] Address: [address] [place] [address] Performed By: #### T SCR ####CC MAIN BLOOD BANKCLIA [id number] [place] [address] [place] aPTT PPPon 09-28-2023 aPTT Coag (PPP) [Time] 35.5 s High 23.0-32.4 [facility] Comment on above: Order Comment: Speci men Type: BLOOD SPECIMENOrdering Facility: [facility] Address: [address] [place] [address] Performed By: #### 3 4528-0, 68996-1 ####[facility] LABCLIA [id number] [address] [place], [place] [address] [place] CBC W Auto Differential pane l (Bld)on 09-27-2023 Anisocytosis Ql (Bld) Present Normal [facility] Comment on above: Order Comment: Speci men Type: BLOOD SPECIMENOrdering Facility: [facility] Address: [address] [place] [address] Performed By: #### 5 7021-8 ####[facility] LABCLIA [id number] [place] [address] [place] Basophils (Bld) [#/Vol] 0.00 10*3/uL Normal <0.11 [facility] Comment on above: Order Comment: Speci men Type: BLOOD SPECIMENOrdering Facility: [facility] Address: [address] [place] [address] Performed By: #### 5 7021-8 ####[facility] LABCLIA [id number] [place] [address] [place] Basophils/100 WBC (Bld) 0.0 % Normal [facility] Comment on above: Order Comment: Speci men Type: BLOOD SPECIMENOrdering Facility: [facility] Address: [address] [place] [address] Performed By: #### 5 7021-8 ####[facility] LABCLIA [id number] [place] [address] [place] BLAST% 28.0 % High <=0.0 [facility] Comment on above: Order Comment: Speci men Type: BLOOD SPECIMENOrdering Facility: [facility] Address: [address] [place] [address] Performed By: #### 5 7021-8 ####[facility] LABCLIA [id number] [place] [address] [place] Dacrocytes LM Ql (Bld) Few Normal [facility] Comment on above: Order Comment: Speci men Type: BLOOD SPECIMENOrdering Facility: [facility] Address: [address] [place] [address] Performed By: #### 5 7021-8 ####[facility] LABCLIA [id number] [place] [address] [place] Differential cell count method Nom (Bld) Manual Normal [facility] Comment on above: Order Comment: Speci men Type: BLOOD SPECIMENOrdering Facility: [facility] Address: [address] [place] [address] Performed By: #### 5 7021-8 ####[facility] LABCLIA [id number] [place] [address] [place] Eosinophils (Bld) [#/Vol] 0.00 10*3/uL Normal <0.46 [facility] Comment on above: Order Comment: Speci men Type: BLOOD SPECIMENOrdering Facility: [facility] Address: [address] [place] [address] Performed By: #### 5 7021-8 ####[facility] LABCLIA [id number] [place] [address] [place] Eosinophils/100 WBC (Bld) 0.0 % Normal [facility] Comment on above: Order Comment: Speci men Type: BLOOD SPECIMENOrdering Facility: [facility] Address: [address] [place] [address] Performed By: #### 5 7021-8 ####[facility] LABIA [id number] [place] [address] [place] Erythrocyte distribution width (RBC) [Ratio] 20.0 % High 11.5-15.0 [facility] Comment on above: Order Comment: Speci men Type: BLOOD SPECIMENOrdering Facility: [facility] Address: [address] [place] [address] Performed By: #### 5 7021-8 ####[facility] LABCLIA [id number] [place] [address] [place] Hematocrit (Bld) [Volume fraction] 26.9 % Low 36.0-46.0 [facility] Comment on above: Order Comment: Speci men Type: BLOOD SPECIMENOrdering Facility: [facility] Address: [address] [place] [address] Performed By: #### 5 7021-8 ####[facility] LABCLIA [id number] [place] [address] [place] Hemoglobin (Bld) [Mass/Vol] 8.9 g/dL Low 11.5-15.5 [facility] Comment on above: Order Comment: Speci men Type: BLOOD SPECIMENOrdering Facility: [facility] Address: [address] [place] [address] Performed By: #### 5 7021-8 ####[facility] LABIA [id number] [place] [address] [place] Lymphocytes (Bld) [#/Vol] 0.53 10*3/uL Low 1.00-4.00 [facility] Comment on above: Order Comment: Speci men Type: BLOOD SPECIMENOrdering Facility: [facility] Address: [address] [place] [address] Performed By: #### 5 7021-8 ####[facility] LABIA [id number] [place] [address] [place] Lymphocytes/100 WBC (Bld) 27.0 % Normal [facility] Comment on above: Order Comment: Speci men Type: BLOOD SPECIMENOrdering Facility: [facility] Address: [address] [place] [address] Performed By: #### 5 7021-8 ####[facility] LABIA [id number] [place] [address] [place] MCH (RBC) [Entitic mass] 29.7 pg Normal 26.0-34.0 [facility] Comment on above: Order Comment: Speci men Type: BLOOD SPECIMENOrdering Facility: [facility] Address: [address] [place] [address] Performed By: #### 5 7021-8 ####[facility] LABCLIA [id number] [place] [address] [place] MCHC (RBC) [Mass/Vol] 33.1 g/dL Normal 30.5-36.0 [facility] Comment on above: Order Comment: Speci men Type: BLOOD SPECIMENOrdering Facility: [facility] Address: [address] [place] [address] Performed By: #### 5 7021-8 ####[facility] LABIA [id number] [place] [address] [place] MCV (RBC) [Entitic vol] 89.7 fL Normal 80.0-100.0 [facility] Comment on above: Order Comment: Speci men Type: BLOOD SPECIMENOrdering Facility: [facility] Address: [address] [place] [address] Performed By: #### 5 7021-8 ####[facility] LABIA [id number] [place] [address] [place] Monocytes (Bld) [#/Vol] 0.06 10*3/uL Normal <0.87 [facility] Comment on above: Order Comment: Speci men Type: BLOOD SPECIMENOrdering Facility: [facility] Address: [address] [place] [address] Performed By: #### 5 7021-8 ####[facility] LABIA [id number] [place] [address] [place] Monocytes/100 WBC (Bld) 3.0 % Normal [facility] Comment on above: Order Comment: Speci men Type: BLOOD SPECIMENOrdering Facility: [facility] Address: [address] [place] [address] Performed By: #### 5 7021-8 ####[facility] LABIA [id number] [place] [address] [place] MYELO% 1.0 % Normal [facility] Comment on above: Order Comment: Speci men Type: BLOOD SPECIMENOrdering Facility: [facility] Address: [address] [place] [address] Performed By: #### 5 7021-8 ####[facility] LABCLIA [id number] [place] [address] [place] Neutrophils (Bld) [#/Vol] 0.81 10*3/uL Low 1.45-7.50 [facility] Comment on above: Order Comment: Speci men Type: BLOOD SPECIMENOrdering Facility: [facility] Address: [address] [place] [address] Performed By: #### 5 7021-8 ####[facility] LABCLIA [id number] [place] [address] [place] Neutrophils/100 WBC (Bld) 41.0 % Normal [facility] Comment on above: Order Comment: Speci men Type: BLOOD SPECIMENOrdering Facility: [facility] Address: [address] [place] [address] Performed By: #### 5 7021-8 ####[facility] LABCLIA [id number] [place] [address] [place] Nucleated RBC (Bld) [#/Vol] 10*3/uL Normal <0.01 [facility] Comment on above: Order Comment: Speci men Type: BLOOD SPECIMENOrdering Facility: [facility] Address: [address] [place] [address] Performed By: #### 5 7021-8 ####[facility] LABCLIA [id number] [place] [address] [place] Nucleated RBC/100 WBC (Bld) [Ratio] 0.0 /100 WBC Normal [facility] Comment on above: Order Comment: Speci men Type: BLOOD SPECIMENOrdering Facility: [facility] Address: [address] [place] [address] Performed By: #### 5 7021-8 ####[facility] LABCLIA [id number] [place] [address] [place] Ovalocytes LM Ql (Bld) Few Normal [facility] Comment on above: Order Comment: Speci men Type: BLOOD SPECIMENOrdering Facility: [facility] Address: [address] [place] [address] Performed By: #### 5 7021-8 ####[facility] LABIA [id number] [place] [address] [place] Platelet mean volume (Bld) [Entitic vol] 10.9 fL Normal 9.0-12.7 [facility] Comment on above: Order Comment: Speci men Type: BLOOD SPECIMENOrdering Facility: [facility] Address: [address] [place] [address] Performed By: #### 5 7021-8 ####[facility] LABIA [id number] [place] [address] [place] Platelets (Bld) [#/Vol] 12 10*3/uL Low 150-400 [facility] Comment on above: Order Comment: Speci men Type: BLOOD SPECIMENOrdering Facility: [facility] Address: [address] [place] [address] Result Comment: Resu lts checked and verified.No clot detected. Performed By: #### 5 7021-8 ####[facility] LABCLIA [id number] [place] [address] [place] Platelets Estimate (Bld) [#/Vol] Decreased Normal [facility] Comment on above: Order Comment: Speci men Type: BLOOD SPECIMENOrdering Facility: [facility] Address: [address] [place] [address] Performed By: #### 5 7021-8 ####[facility] LABIA [id number] [place] [address] [place] Polychromasia LM Ql (Bld) Slight Normal [facility] Comment on above: Order Comment: Speci men Type: BLOOD SPECIMENOrdering Facility: [facility] Address: [address] [place] [address] Performed By: #### 5 7021-8 ####[facility] LABCLIA [id number] [place] [address] [place] RBC (Bld) [#/Vol] 3.00 10*6/uL Low 3.90-5.20 [facility] Comment on above: Order Comment: Speci men Type: BLOOD SPECIMENOrdering Facility: [facility] Address: [address] [place] [address] Performed By: #### 5 7021-8 ####[facility] LABCLIA [id number] [place] [address] [place] RED CELL MORPH Reviewed: see result s of individual morphologies Normal [facility] Comment on above: Order Comment: Speci men Type: BLOOD SPECIMENOrdering Facility: [facility] Address: [address] [place] [address] Performed By: #### 5 7021-8 ####[facility] LABCLIA [id number] [place] [address] [place] WBC (Bld) [#/Vol] 1.97 10*3/uL Low 3.70-11.00 [facility] Comment on above: Order Comment: Speci men Type: BLOOD SPECIMENOrdering Facility: [facility] Address: [address] [place] [address] Result Comment: No c lot detected. Performed By: #### 5 7021-8 ####[facility] LABCLIA [id number] [place] [address] [place] WBC Left Shift Ql (Bld) Present Normal [facility] Comment on above: Order Comment: Speci men Type: BLOOD SPECIMENOrdering Facility: [facility] Address: [address] [place] [address] Performed By: #### 5 7021-8 ####[facility] LABCLIA [id number] [address] [address] [place] Comprehensive metabolic 2000 panelon 09-27-2023 Albumin [Mass/Vol] 2.9 g/dL Low 3.9-4.9 [facility] Comment on above: Order Comment: Speci men Type: BLOOD SPECIMENOrdering Facility: [facility] Address: [address] [place] [address] Performed By: #### 2 4323-8, ####[facility] LABCLIA [id number] [place] [address] [place] ALP [Catalytic activity/Vol] 74 U/L Normal 34-123 [facility] Comment on above: Order Comment: Speci men Type: BLOOD SPECIMENOrdering Facility: [facility] Address: [address] [place] [address] Performed By: #### 2 4323-8, ####[facility] LABCLIA [id number] [place] [address] [place] ALT [Catalytic activity/Vol] 25 U/L Normal 7-38 [facility] Comment on above: Order Comment: Speci men Type: BLOOD SPECIMENOrdering Facility: [facility] Address: [address] [place] [address] Performed By: #### 2 4323-8, ####[facility] LABCLIA [id number] [place] [id number] [place] Anion gap [Moles/Vol] 7 mmol/L Low 9-18 [facility] Comment on above: Order Comment: Speci men Type: BLOOD SPECIMENOrdering Facility: [facility] Address: [address] [place] [address] Performed By: #### 2 4323-8, ####[facility] LABCLIA [id number] [place] [address] [place] AST [Catalytic activity/Vol] 19 U/L Normal 13-35 [facility] Comment on above: Order Comment: Speci men Type: BLOOD SPECIMENOrdering Facility: [facility] Address: [address] [place] [address] Performed By: #### 2 4323-8, 96545-0 ####[facility] LABCLIA [id number] [place] [address] [place] Bilirubin [Mass/Vol] 0.8 mg/dL Normal 0.2-1.3 [facility] Comment on above: Order Comment: Speci men Type: BLOOD SPECIMENOrdering Facility: [facility] Address: [address] [place] [address] Performed By: #### 2 4323-8, ####[facility] LABCLIA [id number] [place] [address] [place] Calcium [Mass/Vol] 8.6 mg/dL Normal 8.5-10.2 [facility] Comment on above: Order Comment: Speci men Type: BLOOD SPECIMENOrdering Facility: [facility] Address: [address] [place] [address] Performed By: #### 2 4323-8, ####[facility] LABCLIA [id number] [place] [address] [place] Chloride [Moles/Vol] 105 mmol/L Normal 97-105 [facility] Comment on above: Order Comment: Speci men Type: BLOOD SPECIMENOrdering Facility: [facility] Address: [address] [place] [address] Performed By: #### 2 4323-8, ####[facility] LABCLIA [id number] [place] [id number] [place] CO2 [Moles/Vol] 26 mmol/L Normal 22-30 [facility] Comment on above: Order Comment: Speci men Type: BLOOD SPECIMENOrdering Facility: [facility] Address: [address] [place] [address] Performed By: #### 2 4323-8, ####[facility] LABCLIA [id number] [place] [address] [place] Creatinine [Mass/Vol] 0.51 mg/dL Low 0.58-0.96 [facility] Comment on above: Order Comment: Speci men Type: BLOOD SPECIMENOrdering Facility: [facility] Address: [address] [place] [address] Performed By: #### 2 43238, ####[facility] LABIA [id number] [place] [address] [place] Creatinine and Glomerular filtration rate.predicted panel (S/P/Bld) 94 mL/min/1.73m??? Normal >=60 [facility] Comment on above: Order Comment: Speci men Type: BLOOD SPECIMENOrdering Facility: [facility] Address: [address] [place] [address] Result Comment: Akiko mated Glomerular Filtration Rate [...] actual GFR. Performed By: #### 2 4323-8, ####[facility] LABIA [id number] [place] [address] [place] Glucose [Mass/Vol] 102 mg/dL High 74-99 [facility] Comment on above: Order Comment: Speci men Type: BLOOD SPECIMENOrdering Facility: [facility] Address: [address] [place] [address] Result Comment: The [place] [employer] (ADA) provides guidance for cutoff [...] Standards of Medical Care in Diabetes 2016, [place] [employer]. Diabetes Care. 2016.39(Suppl 1). Performed By: #### 2 4323-02, ####[facility] LABCLIA [id number] [place] [address] [place] Potassium [Moles/Vol] 3.3 mmol/L Low 3.7-5.1 [facility] Comment on above: Order Comment: Speci men Type: BLOOD SPECIMENOrdering Facility: [facility] Address: [address] [place] [address] Performed By: #### 2 4323-02, ####[facility] LABIA [id number] [place] [address] [place] Protein [Mass/Vol] 5.2 g/dL Low 6.3-8.0 [facility] Comment on above: Order Comment: Speci men Type: BLOOD SPECIMENOrdering Facility: [facility] Address: [address] [place] [address] Performed By: #### 2 4323-02, ####[facility] LABIA [id number] [place] [address] [place] Sodium [Moles/Vol] 138 mmol/L Normal 136-144 [facility] Comment on above: Order Comment: Speci men Type: BLOOD SPECIMENOrdering Facility: [facility] Address: [address] [place] [address] Performed By: #### 2 4323-02, ####[facility] LABCLIA [id number] [place] [id number] [place] Urea nitrogen [Mass/Vol] 10 mg/dL Normal 7-21 [facility] Comment on above: Order Comment: Speci men Type: BLOOD SPECIMENOrdering Facility: [facility] Address: [address] [place] [address] Performed By: #### 2 4323-8, ####[facility] LABIA [id number] [place] [id number] [place] Magnesium SerPl-mCncon 09-26 Magnesium [Mass/Vol] 2.3 mg/dL Normal 1.7-2.3 [facility] Comment on above: Order Comment: Speci men Type: BLOOD SPECIMENOrdering Facility: [facility] Address: [address] [place] [address] Performed By: #### 2 4323-8, ####[facility] [id number] [place] [id number] [place] NUTRITIONon 09-27-2023 NUTRITION Normal [facility] Outside Hospital Correspo ndenceon 09-27-2023 Outside Hospital Correspondence [id number] Normal [facility] SOCIAL WORKon 09-27-2023 SOCIAL WORK Normal [facility] SOCIAL WORK Normal [facility] SOCIAL WORK Normal [facility] XR HIP 1V LTon 09-27-2023 XR HIP 1V LT Normal [facility] XR HIP 1V RTon 09-27-2023 XR HIP 1V RT Normal [facility] CASE MANAGEMon 09-26-2023 CASE MANAGEM Normal [facility] CBC W Auto Differential pane l (Bld)on 09-26-2023 Anisocytosis Ql (Bld) Present Normal [facility] Comment on above: Order Comment: Speci men Type: BLOOD SPECIMENOrdering Facility: [facility] Address: [address] [place] [address] Performed By: #### 5 7021-8 ####[facility] LABCLIA [id number] [place] [address] [place] Basophils (Bld) [#/Vol] 0.00 10*3/uL Normal <0.11 [facility] Comment on above: Order Comment: Speci men Type: BLOOD SPECIMENOrdering Facility: [facility] Address: [address] [place] [address] Performed By: #### 5 7021-8 ####[facility] LABCLIA [id number] [place] [address] [place] Basophils/100 WBC (Bld) 0.0 % Normal [facility] Comment on above: Order Comment: Speci men Type: BLOOD SPECIMENOrdering Facility: [facility] Address: [address] [place] [address] Performed By: #### 5 7021-8 ####[facility] LABCLIA [id number] [place] [address] [place] BLAST% 42.0 % High <=0.0 [facility] Comment on above: Order Comment: Speci men Type: BLOOD SPECIMENOrdering Facility: [facility] Address: [address] [place] [address] Performed By: #### 5 7021-8 ####[facility] LABCLIA [id number] [place] [address] [place] Dacrocytes LM Ql (Bld) Few Normal [facility] Comment on above: Order Comment: Speci men Type: BLOOD SPECIMENOrdering Facility: [facility] Address: [address] [place] [address] Performed By: #### 5 7021-8 ####[facility] LABCLIA [id number] [place] [address] [place] Differential cell count method Nom (Bld) Manual Normal [facility] Comment on above: Order Comment: Speci men Type: BLOOD SPECIMENOrdering Facility: [facility] Address: [address] [place] [address] Performed By: #### 5 7021-8 ####[facility] LABCLIA [id number] [place] [address] [place] Eosinophils (Bld) [#/Vol] 0.03 10*3/uL Normal <0.46 [facility] Comment on above: Order Comment: Speci men Type: BLOOD SPECIMENOrdering Facility: [facility] Address: [address] [place] [address] Performed By: #### 5 7021-8 ####[facility] LABIA [id number] [place] [address] [place] Eosinophils/100 WBC (Bld) 1.0 % Normal [facility] Comment on above: Order Comment: Speci men Type: BLOOD SPECIMENOrdering Facility: [facility] Address: [address] [place] [address] Performed By: #### 5 7021-8 ####[facility] LABIA [id number] [place] [address] [place] Erythrocyte distribution width (RBC) [Ratio] 20.7 % High 11.5-15.0 [facility] Comment on above: Order Comment: Speci men Type: BLOOD SPECIMENOrdering Facility: [facility] Address: [address] [place] [address] Performed By: #### 5 7021-8 ####[facility] LABIA [id number] [place] [address] [place] Hematocrit (Bld) [Volume fraction] 23.8 % Low 36.0-46.0 [facility] Comment on above: Order Comment: Speci men Type: BLOOD SPECIMENOrdering Facility: [facility] Address: [address] [place] [address] Performed By: #### 5 7021-8 ####[facility] LABCLIA [id number] [place] [address] [place] Hemoglobin (Bld) [Mass/Vol] 7.8 g/dL Low 11.5-15.5 [facility] Comment on above: Order Comment: Speci men Type: BLOOD SPECIMENOrdering Facility: [facility] Address: [address] [place] [address] Performed By: #### 5 7021-8 ####[facility] LABIA [id number] [place] [address] [place] Lymphocytes (Bld) [#/Vol] 0.53 10*3/uL Low 1.00-4.00 [facility] Comment on above: Order Comment: Speci men Type: BLOOD SPECIMENOrdering Facility: [facility] Address: [address] [place] [address] Performed By: #### 5 7021-8 ####[facility] LABIA [id number] [place] [address] [place] Lymphocytes/100 WBC (Bld) 20.0 % Normal [facility] Comment on above: Order Comment: Speci men Type: BLOOD SPECIMENOrdering Facility: [facility] Address: [address] [place] [address] Performed By: #### 5 7021-8 ####[facility] LABIA [id number] [place] [address] [place] MCH (RBC) [Entitic mass] 30.7 pg Normal 26.0-34.0 [facility] Comment on above: Order Comment: Speci men Type: BLOOD SPECIMENOrdering Facility: [facility] Address: [address] [place] [address] Performed By: #### 5 7021-8 ####[facility] LABIA [id number] [place] [address] [place] MCHC (RBC) [Mass/Vol] 32.8 g/dL Normal 30.5-36.0 [facility] Comment on above: Order Comment: Speci men Type: BLOOD SPECIMENOrdering Facility: [facility] Address: [facility] [place] [address] Performed By: #### 5 7021-8 ####[facility] LABCLIA [id number] [place] [address] [place] MCV (RBC) [Entitic vol] 93.7 fL Normal 80.0-100.0 [facility] Comment on above: Order Comment: Speci men Type: BLOOD SPECIMENOrdering Facility: [facility] Address: [address] [place] [address] Performed By: #### 5 7021-8 ####[facility] LABCLIA [id number] [place] [address] [place] Monocytes (Bld) [#/Vol] 0.19 10*3/uL Normal <0.87 [facility] Comment on above: Order Comment: Speci men Type: BLOOD SPECIMENOrdering Facility: [facility] Address: [address] [place] [address] Performed By: #### 5 7021-8 ####[facility] LABCLIA [id number] [place] [address] [place] Monocytes/100 WBC (Bld) 7.0 % Normal [facility] Comment on above: Order Comment: Speci men Type: BLOOD SPECIMENOrdering Facility: [facility] Address: [address] [place] [address] Performed By: #### 5 7021-8 ####[facility] LABIA [id number] [place] [address] [place] Neutrophils (Bld) [#/Vol] 0.80 10*3/uL Low 1.45-7.50 [facility] Comment on above: Order Comment: Speci men Type: BLOOD SPECIMENOrdering Facility: [facility] Address: [address] [place] [address] Performed By: #### 5 7021-8 ####[facility] LABCLIA [id number] [place] [address] [place] Neutrophils/100 WBC (Bld) 30.0 % Normal [facility] Comment on above: Order Comment: Speci men Type: BLOOD SPECIMENOrdering Facility: [facility] Address: [address] [place] [address] Performed By: #### 5 7021-8 ####[facility] LABCLIA [id number] [place] [address] [place] Nucleated RBC (Bld) [#/Vol] 10*3/uL Normal <0.01 [facility] Comment on above: Order Comment: Speci men Type: BLOOD SPECIMENOrdering Facility: [facility] Address: [address] [place] [address] Performed By: #### 5 7021-8 ####[facility] LABCLIA [id number] [place] [address] [place] Nucleated RBC/100 WBC (Bld) [Ratio] 0.0 /100 WBC Normal [facility] Comment on above: Order Comment: Speci men Type: BLOOD SPECIMENOrdering Facility: [facility] Address: [address] [place] [address] Performed By: #### 5 7021-8 ####[facility] LABCLIA [id number] [place] [address] [place] Ovalocytes LM Ql (Bld) Few Normal [facility] Comment on above: Order Comment: Speci men Type: BLOOD SPECIMENOrdering Facility: [facility] Address: [address] [place] [address] Performed By: #### 5 7021-8 ####[facility] LABCLIA [id number] [place] [address] [place] Platelet mean volume (Bld) [Entitic vol] 12.1 fL Normal 9.0-12.7 [facility] Comment on above: Order Comment: Speci men Type: BLOOD SPECIMENOrdering Facility: [facility] Address: [address] [place] [address] Performed By: #### 5 7021-8 ####[facility] LABCLIA [id number] [place] [address] [place] Platelets (Bld) [#/Vol] 22 10*3/uL Low 150-400 [facility] Comment on above: Order Comment: Speci men Type: BLOOD SPECIMENOrdering Facility: [facility] Address: [address] [place] [address] Result Comment: Resu lts checked and verified.No clot detected. Performed By: #### 5 7021-8 ####[facility] LABCLIA [id number] [place] [address] [place] Platelets Estimate (Bld) [#/Vol] Decreased Normal [facility] Comment on above: Order Comment: Speci men Type: BLOOD SPECIMENOrdering Facility: [facility] Address: [address] [place] [address] Performed By: #### 5 7021-8 ####[facility] LABCLIA [id number] [place] [address] [place] Polychromasia LM Ql (Bld) Slight Normal [facility] Comment on above: Order Comment: Speci men Type: BLOOD SPECIMENOrdering Facility: [facility] Address: [address] [place] [address] Performed By: #### 5 7021-8 ####[facility] LABCLIA [id number] [place] [address] [place] RBC (Bld) [#/Vol] 2.54 10*6/uL Low 3.90-5.20 [facility] Comment on above: Order Comment: Speci men Type: BLOOD SPECIMENOrdering Facility: [facility] Address: [address] [place], [place] [address] Performed By: #### 5 7021-8 ####[facility] LABCLIA [id number] [address] [address] [place] RED CELL MORPH Reviewed: see result s of individual morphologies Normal [facility] Comment on above: Order Comment: Speci men Type: BLOOD SPECIMENOrdering Facility: [facility] Address: [address] [place] [address] Performed By: #### 5 7021-8 ####[facility] LABIA [id number] [address] [address] [place] WBC (Bld) [#/Vol] 2.65 10*3/uL Low 3.70-11.00 [facility] Comment on above: Order Comment: Speci men Type: BLOOD SPECIMENOrdering Facility: [facility] Address: [address] [place] [address] Performed By: #### 5 7021-8 ####[facility] LABIA [id number] [address] [address] [place] CONSULTon 09-26-2023 CONSULT Normal [facility] Comprehensive metabolic 2000 panelon 09-26-2023 Albumin [Mass/Vol] 3.0 g/dL Low 3.9-4.9 [facility] Comment on above: Order Comment: Speci men Type: BLOOD SPECIMENOrdering Facility: [facility] Address: [address] [place], [place] [address] Performed By: #### 2 4323-8, 36847-5, 2777-1, 3084-1 ####[facility] LABIA [id number] [place] [address] [place] ALP [Catalytic activity/Vol] 71 U/L Normal 34-123 [facility] Comment on above: Order Comment: Speci men Type: BLOOD SPECIMENOrdering Facility: [facility] Address: [address] [place] [address] Performed By: #### 2 4323-8, 70392-9, 2776-1, 3084-1 ####[facility] LABCLIA [id number] [address] [address] [place] ALT [Catalytic activity/Vol] 28 U/L Normal 7-38 [facility] Comment on above: Order Comment: Speci men Type: BLOOD SPECIMENOrdering Facility: [facility] Address: [address] [place] [address] Performed By: #### 2 4323-8, 54973-8, 2776-, 3084-1 ####[facility] LABCLIA [id number] [place] [address] [place] Anion gap [Moles/Vol] 9 mmol/L Normal 9-18 [facility] Comment on above: Order Comment: Speci men Type: BLOOD SPECIMENOrdering Facility: [facility] Address: [address] [place] [address] Performed By: #### 2 4323-8, 30142-2, 2776-, 3084-1 ####[facility] LABIA [id number] [place] [address] [place] AST [Catalytic activity/Vol] 26 U/L Normal 13-35 [facility] Comment on above: Order Comment: Speci men Type: BLOOD SPECIMENOrdering Facility: [facility] Address: [address] [place] [address] Performed By: #### 2 4323-8, 74773-7, 2776-, 3084-1 ####[facility] LABIA [id number] [address] [address] [place] Bilirubin [Mass/Vol] 0.6 mg/dL Normal 0.2-1.3 [facility] Comment on above: Order Comment: Speci men Type: BLOOD SPECIMENOrdering Facility: [facility] Address: [address] [place] [address] Performed By: #### 2 4323-8, , 2776-, 3084- ####[facility] LABCLIA [id number] [address] [address] [place] Calcium [Mass/Vol] 8.2 mg/dL Low 8.5-10.2 [facility] Comment on above: Order Comment: Speci men Type: BLOOD SPECIMENOrdering Facility: [facility] Address: [address] [place], [place] [address] Performed By: #### 2 4323-8, , 2776-, 3084-1 ####[facility] LABIA [id number] [address] [address] [place] Chloride [Moles/Vol] 105 mmol/L Normal 97-105 [facility] Comment on above: Order Comment: Speci men Type: BLOOD SPECIMENOrdering Facility: [facility] Address: [address] [place], [place] [address] Performed By: #### 2 4323-8, , 2776-, 3084-1 ####[facility] LABIA [id number] [address] [address] [place] CO2 [Moles/Vol] 25 mmol/L Normal 22-30 [facility] Comment on above: Order Comment: Speci men Type: BLOOD SPECIMENOrdering Facility: [facility] Address: [address] [place] [address] Performed By: #### 2 4323-8, 28986-8, 2776-07, 3084- ####[facility] LABIA [id number] [address] [address] [place] Creatinine [Mass/Vol] 0.52 mg/dL Low 0.58-0.96 [facility] Comment on above: Order Comment: Speci men Type: BLOOD SPECIMENOrdering Facility: [facility] Address: [address] [place] [address] Performed By: #### 2 4323-8, , 2776-07, 3083-07 ####[facility] LABIA [id number] [place] [address] [place] Creatinine and Glomerular filtration rate.predicted panel (S/P/Bld) 93 mL/min/1.73m??? Normal >=60 [facility] Comment on above: Order Comment: Qi reynolds Type: BLOOD SPECIMENOrdering Facility: [facility] Address: [address] [place] [address] Result Comment: Akiko mated Glomerular Filtration Rate [...] actual GFR. Performed By: #### 2 4323-8, 50352-4, 2776-07, 3083- ####[facility] LABIA [id number] [place] [address] [place] Glucose [Mass/Vol] 118 mg/dL High 74-99 [facility] Comment on above: Order Comment: Qi reynolds Type: BLOOD SPECIMENOrdering Facility: [facility] Address: [address] [place] [address] Result Comment: The [place] [employer] (ADA) provides guidance for cutoff [...] Standards of Medical Care in Diabetes 2016, [place] [employer]. Diabetes Care. 2016.39(Suppl 1). Performed By: #### 2 4323-8, , 2776-07, 3083- ####[facility] LABCLIA [id number] [address] [address] [place] Potassium [Moles/Vol] 3.6 mmol/L Low 3.7-5.1 [facility] Comment on above: Order Comment: Speci men Type: BLOOD SPECIMENOrdering Facility: [facility] Address: [address] [place], [place] [address] Performed By: #### 2 4323-8, , 2776-07, 3084-1 ####[facility] LABIA [id number] [place] [address] [place] Protein [Mass/Vol] 5.1 g/dL Low 6.3-8.0 [facility] Comment on above: Order Comment: Speci men Type: BLOOD SPECIMENOrdering Facility: [facility] Address: [address] [place] [address] Performed By: #### 2 432-8, , 2776-07, 308- ####[facility] LABIA [id number] [place] [address] [place] Sodium [Moles/Vol] 139 mmol/L Normal 136-144 [facility] Comment on above: Order Comment: Speci men Type: BLOOD SPECIMENOrdering Facility: [facility] Address: [address] [place] [address] Performed By: #### 2 4323-8, , 2776-07, 3084-1 ####[facility] LABIA [id number] [place] [address] [place] Urea nitrogen [Mass/Vol] 11 mg/dL Normal 7-21 [facility] Comment on above: Order Comment: Speci men Type: BLOOD SPECIMENOrdering Facility: [facility] Address: [address] [place], [place] [address] Performed By: #### 2 4323-8, 48135-7, 2777-1, 3084-1 ####[facility] LABCLIA [id number] [place] [address] [place] Fibrinogen PPP-mCncon 2023 Fibrinogen Coag (PPP) [Mass/Vol] 522 mg/dL High 200-400 [facility] Comment on above: Order Comment: Qi reynolds Type: BLOOD SPECIMENOrdering Facility: [facility] Address: [address] [place] [address] Result Comment: Resu lt rechecked.Sample checked for clot. Performed By: #### 3 255-7, 17703-3, 71605-5 ####[facility] LABCLIA [id number] [place] [address] [place] Magnesium SerPl[facility] 09-25 Magnesium [Mass/Vol] 2.3 mg/dL Normal 1.7-2.3 [facility] Comment on above: Order Comment: Qi reynolds Type: BLOOD SPECIMENOrdering Facility: [facility] Address: [address] [place] [address] Performed By: #### 2 4323-8, 48899-1, 2777-1, 3084-1 ####[facility] LABIA [id number] [place] [address] [place] PT panel Coag (PPP)on 2023 INR Coag (PPP) [Relative time] 1.2 {INR} Normal 0.9-1.3 [facility] Comment on above: Order Comment: Qi reynolds Type: BLOOD SPECIMENOrdering Facility: [facility] Address: [address] [place] [address] Result Comment: Clementine min K Antagonist (VKA) Therapeutic Range: INR 2 to 3 (Target INR of 2.5)Note: For patients treated with VKA drugs, such as warfarin, the [employer] 2012 Guideline recommends [...] al. Chest 2012, 141:7S-47SNishimura RA, et al. [facility] 2017, 70: 252-289 Performed By: #### 3 255-7, 21240-2, 24103-3 ####[facility] LABIA [id number] [place] [address] [place] PT Coag (PPP) [Time] 13.0 s Normal 9.7-13.0 [facility] Comment on above: Order Comment: Speci men Type: BLOOD SPECIMENOrdering Facility: [facility] Address: [address] [place] [address] Performed By: #### 3 255-7, 47847-0, 05757-2 ####[facility] [id number] [place] [address] [place] Phosphate SerPl-ncon 09-25 Phosphate [Mass/Vol] 2.0 mg/dL Low 2.7-4.8 [facility] Comment on above: Order Comment: Qi reynolds Type: BLOOD SPECIMENOrdering Facility: [facility] Address: [address] [place] [address] Performed By: #### 2 4323-8, 96088-8, 2777-1, 3084-1 ####[facility] [id number] [place] [address] [place] THERAPY NTon 09-26-2023 THERAPY NT Normal [facility] Urate SerPl-mCncon Urate [Mass/Vol] 1.5 mg/dL Low 2.5-6.6 [facility] Comment on above: Order Comment: Speci men Type: BLOOD SPECIMENOrdering Facility: [facility] Address: [address] [place] [address] Performed By: #### 2 4323-8, 33588-0, 2777-1, 3084-1 ####[facility] LABCLIA [id number] [place] [address] [place] aPTT PPPon 09-26-2023 aPTT Coag (PPP) [Time] 34.5 s High 23.0-32.4 [facility] Comment on above: Order Comment: Speci men Type: BLOOD SPECIMENOrdering Facility: [facility] Address: [address] [place] [address] Performed By: #### 3 255-7, 84356-2, 04140-0 ####[facility] LABCLIA [id number] [place] [address] [place] BRIEF OP NOTon 09-25-2023 BRIEF OP NOT Normal [facility] CASE MANAGEMon 09-25-2023 CASE MANAGEM Normal [facility] CBC W Auto Differential pane l (Bld)on 09-25-2023 Anisocytosis Ql (Bld) Present Normal [facility] Comment on above: Order Comment: Speci men Type: BLOOD SPECIMENOrdering Facility: [facility] Address: [address] [place] [address] Performed By: #### 5 7021-8 ####[facility] LABIA [id number] [place] [address] [place] Basophils (Bld) [#/Vol] 0.00 10*3/uL Normal <0.11 [facility] Comment on above: Order Comment: Speci men Type: BLOOD SPECIMENOrdering Facility: [facility] Address: [address] [place] [address] Performed By: #### 5 7021-8 ####[facility] LABCLIA [id number] [place] [address] [place] Basophils/100 WBC (Bld) 0.0 % Normal [facility] Comment on above: Order Comment: Speci men Type: BLOOD SPECIMENOrdering Facility: [facility] Address: [address] [place] [address] Performed By: #### 5 7021-8 ####[facility] LABCLIA [id number] [place] [address] [place] BLAST% 33.9 % High <=0.0 [facility] Comment on above: Order Comment: Speci men Type: BLOOD SPECIMENOrdering Facility: [facility] Address: [address] [place] [address] Performed By: #### 5 7021-8 ####[facility] LABCLIA [id number] [place] [address] [place] Dacrocytes LM Ql (Bld) Few Normal [facility] Comment on above: Order Comment: Speci men Type: BLOOD SPECIMENOrdering Facility: [facility] Address: [address] [place] [address] Performed By: #### 5 7021-8 ####[facility] LABCLIA [id number] [place] [address] [place] Differential cell count method Nom (Bld) Manual Normal [facility] Comment on above: Order Comment: Speci men Type: BLOOD SPECIMENOrdering Facility: [facility] Address: [address] [place] [address] Performed By: #### 5 7021-8 ####[facility] LABCLIA [id number] [place] [address] [place] Eosinophils (Bld) [#/Vol] 0.00 10*3/uL Normal <0.46 [facility] Comment on above: Order Comment: Speci men Type: BLOOD SPECIMENOrdering Facility: [facility] Address: [address] [place] [address] Performed By: #### 5 7021-8 ####[facility] LABCLIA [id number] [place] [address] [place] Eosinophils/100 WBC (Bld) 0.0 % Normal [facility] Comment on above: Order Comment: Speci men Type: BLOOD SPECIMENOrdering Facility: [facility] Address: [address] [place] [address] Performed By: #### 5 7021-8 ####[facility] LABCLIA [id number] [place] [address] [place] Erythrocyte distribution width (RBC) [Ratio] 20.9 % High 11.5-15.0 [facility] Comment on above: Order Comment: Speci men Type: BLOOD SPECIMENOrdering Facility: [facility] Address: [address] [place] [address] Performed By: #### 5 7021-8 ####[facility] LABCLIA [id number] [place] [address] [place] Hematocrit (Bld) [Volume fraction] 23.5 % Low 36.0-46.0 [facility] Comment on above: Order Comment: Speci men Type: BLOOD SPECIMENOrdering Facility: [facility] Address: [address] [place] [address] Performed By: #### 5 7021-8 ####[facility] LABCLIA [id number] [place] [address] [place] Hemoglobin (Bld) [Mass/Vol] 7.8 g/dL Low 11.5-15.5 [facility] Comment on above: Order Comment: Speci men Type: BLOOD SPECIMENOrdering Facility: [facility] Address: [address] [place] [address] Performed By: #### 5 7021-8 ####[facility] LABCLIA [id number] [place] [address] [place] Lymphocytes (Bld) [#/Vol] 0.83 10*3/uL Low 1.00-4.00 [facility] Comment on above: Order Comment: Speci men Type: BLOOD SPECIMENOrdering Facility: [facility] Address: [address] [place] [address] Performed By: #### 5 7021-8 ####[facility] LABIA [id number] [place] [address] [place] Lymphocytes/100 WBC (Bld) 22.3 % Normal [facility] Comment on above: Order Comment: Speci men Type: BLOOD SPECIMENOrdering Facility: [facility] Address: [address] [place] [address] Performed By: #### 5 7021-8 ####[facility] LABIA [id number] [place] [address] [place] MCH (RBC) [Entitic mass] 31.0 pg Normal 26.0-34.0 [facility] Comment on above: Order Comment: Speci men Type: BLOOD SPECIMENOrdering Facility: [facility] Address: [address] [place] [address] Performed By: #### 5 7021-8 ####[facility] LABIA [id number] [place] [address] [place] MCHC (RBC) [Mass/Vol] 33.2 g/dL Normal 30.5-36.0 [facility] Comment on above: Order Comment: Speci men Type: BLOOD SPECIMENOrdering Facility: [facility] Address: [address] [place] [address] Performed By: #### 5 7021-8 ####[facility] LABIA [id number] [place] [address] [place] MCV (RBC) [Entitic vol] 93.3 fL Normal 80.0-100.0 [facility] Comment on above: Order Comment: Speci men Type: BLOOD SPECIMENOrdering Facility: [facility] Address: [address] [place] [address] Performed By: #### 5 7021-8 ####[facility] LABCLIA [id number] [place] [address] [place] Monocytes (Bld) [#/Vol] 0.17 10*3/uL Normal <0.87 [facility] Comment on above: Order Comment: Speci men Type: BLOOD SPECIMENOrdering Facility: [facility] Address: [address] [place] [address] Performed By: #### 5 7021-8 ####[facility] LABCLIA [id number] [place] [address] [place] Monocytes/100 WBC (Bld) 4.5 % Normal [facility] Comment on above: Order Comment: Speci men Type: BLOOD SPECIMENOrdering Facility: [facility] Address: [address] [place] [address] Performed By: #### 5 7021-8 ####[facility] LABCLIA [id number] [place] [address] [place] Neutrophils (Bld) [#/Vol] 1.46 10*3/uL Normal 1.45-7.50 [facility] Comment on above: Order Comment: Speci men Type: BLOOD SPECIMENOrdering Facility: [facility] Address: [address] [place] [address] Performed By: #### 5 7021-8 ####[facility] LABCLIA [id number] [place] [address] [place] Neutrophils/100 WBC (Bld) 39.3 % Normal [facility] Comment on above: Order Comment: Speci men Type: BLOOD SPECIMENOrdering Facility: [facility] Address: [address] [place] [address] Performed By: #### 5 7021-8 ####[facility] LABCLIA [id number] [place] [address] [place] Nucleated RBC (Bld) [#/Vol] 0.03 10*3/uL High <0.01 [facility] Comment on above: Order Comment: Speci men Type: BLOOD SPECIMENOrdering Facility: [facility] Address: [address] [place] [address] Performed By: #### 5 7021-8 ####[facility] LABCLIA [id number] [place] [address] [place] Nucleated RBC/100 WBC (Bld) [Ratio] 0.9 /100 WBC Normal [facility] Comment on above: Order Comment: Speci men Type: BLOOD SPECIMENOrdering Facility: [facility] Address: [address] [place] [address] Performed By: #### 5 7021-8 ####[facility] LABCLIA [id number] [place] [address] [place] Ovalocytes LM Ql (Bld) Few Normal [facility] Comment on above: Order Comment: Speci men Type: BLOOD SPECIMENOrdering Facility: [facility] Address: [address] [place] [address] Performed By: #### 5 7021-8 ####[facility] LABIA [id number] [place] [address] [place] Platelet mean volume (Bld) [Entitic vol] 12.1 fL Normal 9.0-12.7 [facility] Comment on above: Order Comment: Speci men Type: BLOOD SPECIMENOrdering Facility: [facility] Address: [address] [place] [address] Performed By: #### 5 7021-8 ####[facility] LABCLIA [id number] [place] [address] [place] Platelets (Bld) [#/Vol] 28 10*3/uL Low 150-400 [facility] Comment on above: Order Comment: Speci men Type: BLOOD SPECIMENOrdering Facility: [facility] Address: [address] [place] [address] Result Comment: Resu lts checked and verified.No clot detected. Performed By: #### 5 7021-8 ####[facility] LABCLIA [id number] [place] [address] [place] Platelets Estimate (Bld) [#/Vol] Decreased Normal [facility] Comment on above: Order Comment: Speci men Type: BLOOD SPECIMENOrdering Facility: [facility] Address: [address] [place] [address] Performed By: #### 5 7021-8 ####[facility] LABIA [id number] [place] [address] [place] RBC (Bld) [#/Vol] 2.52 10*6/uL Low 3.90-5.20 [facility] Comment on above: Order Comment: Speci men Type: BLOOD SPECIMENOrdering Facility: [facility] Address: [address] [place] [address] Performed By: #### 5 7021-8 ####[facility] LABIA [id number] [place] [address] [place] RBC FRAGMENTS Few Abnormal None Seen [facility] Comment on above: Order Comment: Speci men Type: BLOOD SPECIMENOrdering Facility: [facility] Address: [address] [place] [address] Performed By: #### 5 7021-8 ####[facility] LABIA [id number] [place] [address] [place] RED CELL MORPH Reviewed: see result s of individual morphologies Normal [facility] Comment on above: Order Comment: Speci men Type: BLOOD SPECIMENOrdering Facility: [facility] Address: [address] [place] [address] Performed By: #### 5 7021-8 ####[facility] LABCLIA [id number] [place] [address] [place] WBC (Bld) [#/Vol] 3.71 10*3/uL Normal 3.70-11.00 [facility] Comment on above: Order Comment: Speci men Type: BLOOD SPECIMENOrdering Facility: [facility] Address: [address] [place] [address] Performed By: #### 5 7021-8 ####[facility] LABCLIA [id number] [place] [address] [place] Comprehensive metabolic 2000 panelon 09-25-2023 Albumin [Mass/Vol] 3.0 g/dL Low 3.9-4.9 [facility] Comment on above: Order Comment: Speci men Type: BLOOD SPECIMENOrdering Facility: [facility] Address: [address] [place] [address] Performed By: #### 2 4323-8, 80313-4, 2777-1, 3084-1 ####[facility] LABIA [id number] [place] [address] [place] ALP [Catalytic activity/Vol] 72 U/L Normal 34-123 [facility] Comment on above: Order Comment: Speci men Type: BLOOD SPECIMENOrdering Facility: [facility] Address: [address] [place] [address] Performed By: #### 2 4323-8, 34373-4, 2777-1, 3084-1 ####[facility] LABIA [id number] [place] [address] [place] ALT [Catalytic activity/Vol] 25 U/L Normal 7-38 [facility] Comment on above: Order Comment: Speci men Type: BLOOD SPECIMENOrdering Facility: [facility] Address: [address] [place] [address] Performed By: #### 2 4323-8, 89238-5, 2777-1, 3084-1 ####[facility] LABIA [id number] [place] [address] [place] Anion gap [Moles/Vol] 10 mmol/L Normal 9-18 [facility] Comment on above: Order Comment: Speci men Type: BLOOD SPECIMENOrdering Facility: [facility] Address: [address] [place] [address] Performed By: #### 2 4323-8, 84477-4, 7-1, 3084-1 ####[facility] LABCLIA [id number] [address] [address] [place] AST [Catalytic activity/Vol] 25 U/L Normal 13-35 [facility] Comment on above: Order Comment: Speci men Type: BLOOD SPECIMENOrdering Facility: [facility] Address: [address] [place] [address] Performed By: #### 2 4323-8, 08178-7, 2776-1, 3084-1 ####[facility] LABCLIA [id number] [place] [address] [place] Bilirubin [Mass/Vol] 0.7 mg/dL Normal 0.2-1.3 [facility] Comment on above: Order Comment: Speci men Type: BLOOD SPECIMENOrdering Facility: [facility] Address: [address] [place] [address] Performed By: #### 2 4323-8, 71396-3, 2776-1, 3084-1 ####[facility] LABCLIA [id number] [place] [address] [place] Calcium [Mass/Vol] 8.6 mg/dL Normal 8.5-10.2 [facility] Comment on above: Order Comment: Speci men Type: BLOOD SPECIMENOrdering Facility: [facility] Address: [facility] [place] [address] Performed By: #### 2 4323-8, 32198-6, 7-1, 3084-1 ####[facility] LABCLIA [id number] [address] [address] [place] Chloride [Moles/Vol] 106 mmol/L High 97-105 [facility] Comment on above: Order Comment: Speci men Type: BLOOD SPECIMENOrdering Facility: [facility] Address: [address] [place] [address] Performed By: #### 2 4323-8, 20309-3, 2777-1, 3084-1 ####[facility] LABCLIA [id number] [place] [address] [place] CO2 [Moles/Vol] 23 mmol/L Normal 22-30 [facility] Comment on above: Order Comment: Speci men Type: BLOOD SPECIMENOrdering Facility: [facility] Address: [address] [place] [address] Performed By: #### 2 4323-8, 35044-3, 7-1, 3084-1 ####[facility] LABCLIA [id number] [place] [address] [place] Creatinine [Mass/Vol] 0.57 mg/dL Low 0.58-0.96 [facility] Comment on above: Order Comment: Speci men Type: BLOOD SPECIMENOrdering Facility: [facility] Address: [address] [place] [address] Performed By: #### 2 4323-8, 54122-9, 2777-1, 3084-1 ####[facility] LABCLIA [id number] [place] [address] [place] Creatinine and Glomerular filtration rate.predicted panel (S/P/Bld) 91 mL/min/1.73m??? Normal >=60 [facility] Comment on above: Order Comment: Speci men Type: BLOOD SPECIMENOrdering Facility: [facility] Address: [address] [place] [address] Result Comment: Akiko mated Glomerular Filtration Rate [...] By: #### 2 4323-8, , 2776-07, 3083-07 ####[facility] LABCLIA [id number] [address] [address] [place] Glucose [Mass/Vol] 97 mg/dL Normal 74-99 [facility] Comment on above: Order Comment: Qi reynolds Type: BLOOD SPECIMENOrdering Facility: [facility] Address: [address] [place] [address] Result Comment: The [place] [employer] (ADA) provides guidance for cutoff [...] Standards of Medical Care in Diabetes 2016, [place] [employer]. Diabetes Care. 2016.39(Suppl 1). Performed By: #### 2 4323-8, , 2776-07, 3083-07 ####[facility] LABCLIA [id number] [address] [address] [place] Potassium [Moles/Vol] 3.6 mmol/L Low 3.7-5.1 [facility] Comment on above: Order Comment: Qi reynolds Type: BLOOD SPECIMENOrdering Facility: [facility] Address: [address] [place] [address] Performed By: #### 2 4323-8, 57059-2, 2776-07, 3083- ####[facility] LABCLIA [id number] [address] [address] [place] Protein [Mass/Vol] 5.3 g/dL Low 6.3-8.0 [facility] Comment on above: Order Comment: Speci men Type: BLOOD SPECIMENOrdering Facility: [facility] Address: [address] [place] [address] Performed By: #### 2 4323-8, 06054-0, 2777-1, 3084-1 ####[facility] LABCLIA [id number] [place] [address] [place] Sodium [Moles/Vol] 139 mmol/L Normal 136-144 [facility] Comment on above: Order Comment: Speci men Type: BLOOD SPECIMENOrdering Facility: [facility] Address: [address] [place] [address] Performed By: #### 2 4323-8, 50643-7, 2777-1, 3084-1 ####[facility] LABCLIA [id number] [place] [address] [place] Urea nitrogen [Mass/Vol] 11 mg/dL Normal 7-21 [facility] Comment on above: Order Comment: Speci men Type: BLOOD SPECIMENOrdering Facility: [facility] Address: [address] [place] [address] Performed By: #### 2 4323-8, 62946-4, 2777-1, 3084-1 ####[facility] LABCLIA [id number] [place] [address] [place] Fibrinogen PPP-mCncon 2023 Fibrinogen Coag (PPP) [Mass/Vol] 539 mg/dL High 200-400 [facility] Comment on above: Order Comment: Speci men Type: BLOOD SPECIMENOrdering Facility: [facility] Address: [address] [place] [address] Result Comment: Resu lt rechecked.Sample checked for clot. Performed By: #### 1 4979-9, 3255-7, 40634-3 ####[facility] LABCLIA [id number] [place] [id number] [place] HISTORY PHYSICALon HISTORY PHYSICAL Normal [facility] IR PORTOCATH PLACEMENTon IR PORTOCATH PLACEMENT Normal [facility] Magnesium SerPl-mCncon 09-24 Magnesium [Mass/Vol] 2.4 mg/dL High 1.7-2.3 [facility] Comment on above: Order Comment: Speci men Type: BLOOD SPECIMENOrdering Facility: [facility] Address: [address] [place] [address] Performed By: #### 2 4323-8, 95961-8, 2777-1, 3084-1 ####[facility] LABCLIA [id number] [place] [address] [place] PT EDon 09-25-2023 PT ED Normal [facility] PT panel Coag (PPP)on 2023 INR Coag (PPP) [Relative time] 1.2 {INR} Normal 0.9-1.3 [facility] Comment on above: Order Comment: Speci rodolfo Type: BLOOD SPECIMENOrdering Facility: [facility] Address: [address] [place] [address] Result Comment: Clementine min K Antagonist (VKA) Therapeutic Range: INR 2 to 3 (Target INR of 2.5)Note: For patients treated with VKA drugs, such as warfarin, the [employer] 2012 Guideline recommends [...] [phone] Performed By: #### 1 4979-9, 3255-7, 43645-1 ####[facility] LABCLIA [id number] [address] [address] [place] PT Coag (PPP) [Time] 12.9 s Normal 9.7-13.0 [facility] Comment on above: Order Comment: Speci men Type: BLOOD SPECIMENOrdering Facility: [facility] Address: [address] [place] [address] Performed By: #### 1 4979-9, 3255-7, 54914-2 ####[facility] LABCLIA [id number] [place] [id number] [place] Phosphate SerPl-mCncon 09-24 Phosphate [Mass/Vol] 1.9 mg/dL Low 2.7-4.8 [facility] Comment on above: Order Comment: Speci men Type: BLOOD SPECIMENOrdering Facility: [facility] Address: [address] [place] [address] Performed By: #### 2 4323-8, 34750-6, 2777-1, 3084-1 ####[facility] LABCLIA [id number] [place] [id number] [place] SOCIAL WORKon 09-25-2023 SOCIAL WORK Normal [facility] Urate SerPl-ncon Urate [Mass/Vol] 1.8 mg/dL Low 2.5-6.6 [facility] Comment on above: Order Comment: Speci men Type: BLOOD SPECIMENOrdering Facility: [facility] Address: [address] [place] [address] Performed By: #### 2 4323-8, 46005-3, 2777-1, 3084-1 ####[facility] LABCLIA [id number] [place] [id number] [place] aPTT PPPon 09-25-2023 aPTT Coag (PPP) [Time] 36.2 s High 23.0-32.4 [facility] Comment on above: Order Comment: Speci men Type: BLOOD SPECIMENOrdering Facility: [facility] Address: [address] [place] [address] Performed By: #### 1 4979-9, 3255-7, 73238-9 ####[facility] LABCLIA [id number] [place] [address] [place] ALLIED HEALTHon 09-24-2023 ALLIED HEALTH Normal [facility] CASE MANAGEMon 09-24-2023 CASE MANAGEM Normal [facility] CBC W Auto Differential pane l (Bld)on 09-24-2023 Anisocytosis Ql (Bld) Present Normal [facility] Comment on above: Order Comment: Speci men Type: BLOOD SPECIMENOrdering Facility: [facility] Address: [address] [place] [address] Performed By: #### 5 7021-8 ####[facility] LABCLIA [id number] [place] [address] [place] Basophils (Bld) [#/Vol] 0.00 10*3/uL Normal <0.11 [facility] Comment on above: Order Comment: Speci men Type: BLOOD SPECIMENOrdering Facility: [facility] Address: [address] [place] [address] Performed By: #### 5 7021-8 ####[facility] LABCLIA [id number] [place] [address] [place] Basophils/100 WBC (Bld) 0.0 % Normal [facility] Comment on above: Order Comment: Speci men Type: BLOOD SPECIMENOrdering Facility: [facility] Address: [address] [place] [address] Performed By: #### 5 7021-8 ####[facility] LABCLIA [id number] [place] [address] [place] BLAST% 60.0 % High <=0.0 [facility] Comment on above: Order Comment: Speci men Type: BLOOD SPECIMENOrdering Facility: [facility] Address: [address] [place] [address] Performed By: #### 5 7021-8 ####[facility] LABCLIA [id number] [place] [address] [place] Dacrocytes LM Ql (Bld) Few Normal [facility] Comment on above: Order Comment: Speci men Type: BLOOD SPECIMENOrdering Facility: [facility] Address: [address] [place] [address] Performed By: #### 5 7021-8 ####[facility] LABCLIA [id number] [place] [address] [place] Differential cell count method Nom (Bld) Manual Normal [facility] Comment on above: Order Comment: Speci men Type: BLOOD SPECIMENOrdering Facility: [facility] Address: [address] [place] [address] Performed By: #### 5 7021-8 ####[facility] LABCLIA [id number] [place] [address] [place] Eosinophils (Bld) [#/Vol] 0.00 10*3/uL Normal <0.46 [facility] Comment on above: Order Comment: Speci men Type: BLOOD SPECIMENOrdering Facility: [facility] Address: [address] [place] [address] Performed By: #### 5 7021-8 ####[facility] LABCLIA [id number] [place] [address] [place] Eosinophils/100 WBC (Bld) 0.0 % Normal [facility] Comment on above: Order Comment: Speci men Type: BLOOD SPECIMENOrdering Facility: [facility] Address: [address] [place] [address] Performed By: #### 5 7021-8 ####[facility] LABCLIA [id number] [place] [address] [place] Erythrocyte distribution width (RBC) [Ratio] 21.8 % High 11.5-15.0 [facility] Comment on above: Order Comment: Speci men Type: BLOOD SPECIMENOrdering Facility: [facility] Address: [address] [place] [address] Performed By: #### 5 7021-8 ####[facility] LABIA [id number] [place] [address] [place] Hematocrit (Bld) [Volume fraction] 19.9 % Low 36.0-46.0 [facility] Comment on above: Order Comment: Speci men Type: BLOOD SPECIMENOrdering Facility: [facility] Address: [address] [place] [address] Performed By: #### 5 7021-8 ####[facility] LABIA [id number] [place] [address] [place] Hemoglobin (Bld) [Mass/Vol] 6.5 g/dL Low 11.5-15.5 [facility] Comment on above: Order Comment: Speci men Type: BLOOD SPECIMENOrdering Facility: [facility] Address: [address] [place] [address] Performed By: #### 5 7021-8 ####[facility] [id number] [place] [address] [place] Lymphocytes (Bld) [#/Vol] 0.93 10*3/uL Low 1.00-4.00 [facility] Comment on above: Order Comment: Speci men Type: BLOOD SPECIMENOrdering Facility: [facility] Address: [address] [place] [address] Performed By: #### 5 7021-8 ####[facility] [id number] [place] [address] [place] Lymphocytes/100 WBC (Bld) 22.0 % Normal [facility] Comment on above: Order Comment: Speci men Type: BLOOD SPECIMENOrdering Facility: [facility] Address: [address] [place] [address] Performed By: #### 5 7021-8 ####[facility] [id number] [place] [address] [place] MCH (RBC) [Entitic mass] 31.0 pg Normal 26.0-34.0 [facility] Comment on above: Order Comment: Speci men Type: BLOOD SPECIMENOrdering Facility: [facility] Address: [address] [place] [address] Performed By: #### 5 7021-8 ####[facility] [id number] [place] [address] [place] MCHC (RBC) [Mass/Vol] 32.7 g/dL Normal 30.5-36.0 [facility] Comment on above: Order Comment: Speci men Type: BLOOD SPECIMENOrdering Facility: [facility] Address: [address] [place] [address] Performed By: #### 5 7021-8 ####[facility] [id number] [place] [address] [place] MCV (RBC) [Entitic vol] 94.8 fL Normal 80.0-100.0 [facility] Comment on above: Order Comment: Speci men Type: BLOOD SPECIMENOrdering Facility: [facility] Address: [address] [place] [address] Performed By: #### 5 7021-8 ####[facility] [id number] [place] [address] [place] Metamyelocytes/100 WBC (Bld) 1.0 % Normal [facility] Comment on above: Order Comment: Speci men Type: BLOOD SPECIMENOrdering Facility: [facility] Address: [address] [place] [address] Performed By: #### 5 7021-8 ####[facility] LABCLIA [id number] [place] [address] [place] Monocytes (Bld) [#/Vol] 0.00 10*3/uL Normal <0.87 [facility] Comment on above: Order Comment: Speci men Type: BLOOD SPECIMENOrdering Facility: [facility] Address: [address] [place] [address] Performed By: #### 5 7021-8 ####[facility] LABCLIA [id number] [place] [address] [place] Monocytes/100 WBC (Bld) 0.0 % Normal [facility] Comment on above: Order Comment: Speci men Type: BLOOD SPECIMENOrdering Facility: [facility] Address: [address] [place] [address] Performed By: #### 5 7021-8 ####[facility] LABCLIA [id number] [place] [address] [place] Neutrophils (Bld) [#/Vol] 0.72 10*3/uL Low 1.45-7.50 [facility] Comment on above: Order Comment: Speci men Type: BLOOD SPECIMENOrdering Facility: [facility] Address: [address] [place] [address] Performed By: #### 5 7021-8 ####[facility] LABCLIA [id number] [place] [address] [place] Neutrophils/100 WBC (Bld) 17.0 % Normal [facility] Comment on above: Order Comment: Speci men Type: BLOOD SPECIMENOrdering Facility: [facility] Address: [address] [place] [address] Performed By: #### 5 7021-8 ####[facility] LABCLIA [id number] [place] [address] [place] Nucleated RBC (Bld) [#/Vol] 10*3/uL Normal <0.01 [facility] Comment on above: Order Comment: Speci men Type: BLOOD SPECIMENOrdering Facility: [facility] Address: [address] [place] [address] Performed By: #### 5 7021-8 ####[facility] LABCLIA [id number] [place] [address] [place] Nucleated RBC/100 WBC (Bld) [Ratio] 0.0 /100 WBC Normal [facility] Comment on above: Order Comment: Speci men Type: BLOOD SPECIMENOrdering Facility: [facility] Address: [address] [place] [address] Performed By: #### 5 7021-8 ####[facility] LABCLIA [id number] [place] [address] [place] Ovalocytes LM Ql (Bld) Few Normal [facility] Comment on above: Order Comment: Speci men Type: BLOOD SPECIMENOrdering Facility: [facility] Address: [address] [place] [address] Performed By: #### 5 7021-8 ####[facility] LABCLIA [id number] [place] [address] [place] Platelet mean volume (Bld) [Entitic vol] Normal [facility] Comment on above: Order Comment: Speci men Type: BLOOD SPECIMENOrdering Facility: [facility] Address: [address] [place] [address] Result Comment: Unab le to Report. Performed By: #### 5 7021-8 ####[facility] LABCLIA [id number] [place] [address] [place] Platelets (Bld) [#/Vol] 3 10*3/uL Critically low 150-400 [facility] Comment on above: Order Comment: Speci men Type: BLOOD SPECIMENOrdering Facility: [facility] Address: [address] [place] [address] Result Comment: Resu lts checked and verified.No clot detected. Performed By: #### 5 7021-8 ####[facility] LABCLIA [id number] [place] [address] [place] Platelets Estimate (Bld) [#/Vol] Decreased Normal [facility] Comment on above: Order Comment: Speci men Type: BLOOD SPECIMENOrdering Facility: [facility] Address: [address] [place] [address] Performed By: #### 5 7021-8 ####[facility] LABCLIA [id number] [place] [address] [place] Polychromasia LM Ql (Bld) Slight Normal [facility] Comment on above: Order Comment: Speci men Type: BLOOD SPECIMENOrdering Facility: [facility] Address: [address] [place] [address] Performed By: #### 5 7021-8 ####[facility] LABCLIA [id number] [place] [address] [place] RBC (Bld) [#/Vol] 2.10 10*6/uL Low 3.90-5.20 [facility] Comment on above: Order Comment: Speci men Type: BLOOD SPECIMENOrdering Facility: [facility] Address: [address] [place] [address] Performed By: #### 5 7021-8 ####[facility] LABCLIA [id number] [place] [address] [place] RBC FRAGMENTS Few Abnormal None Seen [facility] Comment on above: Order Comment: Speci men Type: BLOOD SPECIMENOrdering Facility: [facility] Address: [address] [place] [address] Performed By: #### 5 7021-8 ####[facility] LABCLIA [id number] [place] [address] [place] RED CELL MORPH Reviewed: see result s of individual morphologies Normal [facility] Comment on above: Order Comment: Speci men Type: BLOOD SPECIMENOrdering Facility: [facility] Address: [address] [place] [address] Performed By: #### 5 7021-8 ####[facility] LABCLIA [id number] [address] [address] [place] SPHEROCYTES Few Normal [facility] Comment on above: Order Comment: Speci men Type: BLOOD SPECIMENOrdering Facility: [facility] Address: [address] [place] [address] Performed By: #### 5 7021-8 ####[facility] LABIA [id number] [place] [address] [place] WBC (Bld) [#/Vol] 4.22 10*3/uL Normal 3.70-11.00 [facility] Comment on above: Order Comment: Speci men Type: BLOOD SPECIMENOrdering Facility: [facility] Address: [address] [place] [address] Performed By: #### 5 7021-8 ####[facility] LABCLIA [id number] [place] [address] [place] WBC Left Shift Ql (Bld) Present Normal [facility] Comment on above: Order Comment: Speci men Type: BLOOD SPECIMENOrdering Facility: [facility] Address: [address] [place] [address] Performed By: #### 5 7021-8 ####[facility] LABIA [id number] [place] [id number] [place] Comprehensive metabolic 2000 panelon 09-24-2023 Albumin [Mass/Vol] 2.8 g/dL Low 3.9-4.9 [facility] Comment on above: Order Comment: Speci men Type: BLOOD SPECIMENOrdering Facility: [facility] Address: [address] [place] [address] Performed By: #### 2 4323-8, 10754-8, 2777-1, 3084-1 ####[facility] LABCLIA [id number] [address] [address] [place] ALP [Catalytic activity/Vol] 60 U/L Normal 34-123 [facility] Comment on above: Order Comment: Speci men Type: BLOOD SPECIMENOrdering Facility: [facility] Address: [address] [place] [address] Performed By: #### 2 4323-8, 89358-4, 2776-07, 3083-1 ####[facility] LABCLIA [id number] [address] [address] [place] ALT [Catalytic activity/Vol] 22 U/L Normal 7-38 [facility] Comment on above: Order Comment: Speci men Type: BLOOD SPECIMENOrdering Facility: [facility] Address: [address] [place] [address] Performed By: #### 2 4323-8, 30752-0, 2776-07, 3083- ####[facility] LABCLIA [id number] [address] [address] [place] Anion gap [Moles/Vol] 8 mmol/L Low 9-18 [facility] Comment on above: Order Comment: Speci men Type: BLOOD SPECIMENOrdering Facility: [facility] Address: [address] [place] [address] Performed By: #### 2 4323-8, 01181-9, 2776-07, 3083- ####[facility] LABCLIA [id number] [address] [address] [place] AST [Catalytic activity/Vol] 20 U/L Normal 13-35 [facility] Comment on above: Order Comment: Speci men Type: BLOOD SPECIMENOrdering Facility: [facility] Address: [address] [place] [address] Performed By: #### 2 4323-8, 75681-4, 2776-, 308-1 ####[facility] LABCLIA [id number] [address] [address] [place] Bilirubin [Mass/Vol] 0.5 mg/dL Normal 0.2-1.3 [facility] Comment on above: Order Comment: Speci men Type: BLOOD SPECIMENOrdering Facility: [facility] Address: [address] [place] [address] Performed By: #### 2 4323-8, 05034-0, 2776-, 3083-1 ####[facility] LABCLIA [id number] [place] [address] [place] Calcium [Mass/Vol] 8.3 mg/dL Low 8.5-10.2 [facility] Comment on above: Order Comment: Speci men Type: BLOOD SPECIMENOrdering Facility: [facility] Address: [address] [place] [address] Performed By: #### 2 4323-8, 00651-3, 2776-07, 3083-1 ####[facility] LABCLIA [id number] [place] [address] [place] Chloride [Moles/Vol] 104 mmol/L Normal 97-105 [facility] Comment on above: Order Comment: Speci men Type: BLOOD SPECIMENOrdering Facility: [facility] Address: [address] [place] [address] Performed By: #### 2 4323-8, 75379-3, 27701-13, 3083-1 ####[facility] LABCLIA [id number] [place] [id number] [place] CO2 [Moles/Vol] 26 mmol/L Normal 22-30 [facility] Comment on above: Order Comment: Speci men Type: BLOOD SPECIMENOrdering Facility: [facility] Address: [address] [place] [address] Performed By: #### 2 4323-8, 17118-1, 277-, 308-1 ####[facility] LABCLIA [id number] [place] [address] [place] Creatinine [Mass/Vol] 0.60 mg/dL Normal 0.58-0.96 [facility] Comment on above: Order Comment: Qi reynolds Type: BLOOD SPECIMENOrdering Facility: [facility] Address: [address] [place] [address] Performed By: #### 2 4323-8, 46810-7, 2777-1, 3084-1 ####[facility] LABIA [id number] [place] [address] [place] Creatinine and Glomerular filtration rate.predicted panel (S/P/Bld) 90 mL/min/1.73m??? Normal >=60 [facility] Comment on above: Order Comment: Qi reynolds Type: BLOOD SPECIMENOrdering Facility: [facility] Address: [address] [place] [address] Result Comment: Akiko mated Glomerular Filtration Rate [...] actual GFR. Performed By: #### 2 4323-8, 34074-7, 2777-1, 3084-1 ####[facility] LABIA [id number] [place] [id number] [place] Glucose [Mass/Vol] 89 mg/dL Normal 74-99 [facility] Comment on above: Order Comment: Qi reynolds Type: BLOOD SPECIMENOrdering Facility: [facility] Address: [address] [place] [address] Result Comment: The [place] [employer] (ADA) provides guidance for cutoff [...] Standards of Medical Care in Diabetes 2016, [place] [employer]. Diabetes Care. 2016.39(Suppl 1). Performed By: #### 2 4323-8, 95788-0, 2776-, 3083-1 ####[facility] LABCLIA [id number] [address] [address] [place] Potassium [Moles/Vol] 3.2 mmol/L Low 3.7-5.1 [facility] Comment on above: Order Comment: Speci men Type: BLOOD SPECIMENOrdering Facility: [facility] Address: [address] [place] [address] Performed By: #### 2 4323-8, 62974-2, 2776-07, 3083-07 ####[facility] LABCLIA [id number] [place] [id number] [place] Protein [Mass/Vol] 4.9 g/dL Low 6.3-8.0 [facility] Comment on above: Order Comment: Qi reynolds Type: BLOOD SPECIMENOrdering Facility: [facility] Address: [address] [place] [address] Performed By: #### 2 4323-8, 30592-4, 2776-07, 3083- ####[facility] LABCLIA [id number] [address] [address] [place] Sodium [Moles/Vol] 138 mmol/L Normal 136-144 [facility] Comment on above: Order Comment: Nikkii men Type: BLOOD SPECIMENOrdering Facility: [facility] Address: [address] [place] [address] Performed By: #### 2 4323-8, 83762-2, 2776-07, 3083-1 ####[facility] LABCLIA [id number] [place] [id number] [place] Urea nitrogen [Mass/Vol] 11 mg/dL Normal 7-21 [facility] Comment on above: Order Comment: Speci men Type: BLOOD SPECIMENOrdering Facility: [facility] Address: [address] [place] [address] Performed By: #### 2 4323-8, 99193-1, 2777-1, 3084-1 ####[facility] LABIA [id number] [place] [id number] [place] Fibrinogen PPP-mCncon 2023 Fibrinogen Coag (PPP) [Mass/Vol] 523 mg/dL High 200-400 [facility] Comment on above: Order Comment: Speci men Type: BLOOD SPECIMENOrdering Facility: [facility] Address: [address] [place] [address] Performed By: #### 3 255-7, 38539-4, 69349-9 ####[facility] [id number] [place] [address] [place] Magnesium SerPl-mCncon 09-23 Magnesium [Mass/Vol] 2.3 mg/dL Normal 1.7-2.3 [facility] Comment on above: Order Comment: Speci men Type: BLOOD SPECIMENOrdering Facility: [facility] Address: [address] [place] [address] Performed By: #### 2 4323-8, 49604-7, 2777-1, 3084-1 ####[facility] LABIA [id number] [place] [id number] [place] NURSING PROGon 09-24-2023 NURSING PROG Normal [facility] PT panel Coag (PPP)on 2023 INR Coag (PPP) [Relative time] 1.3 {INR} Normal 0.9-1.3 [facility] Comment on above: Order Comment: Speci men Type: BLOOD SPECIMENOrdering Facility: [facility] Address: [address] [place] [address] Result Comment: Clemet[employer] min K Antagonist (VKA) Therapeutic Range: INR 2 to 3 (Target INR of 2.5)Note: For patients treated with VKA drugs, such as warfarin, the [employer] 2012 Guideline recommends [...] al. Chest 2012, 141:7S-47SNishfabrizio RA, et al. [facility] 2017, 70: 252-289 Performed By: #### 3 255-7, 13548-7, 51849-8 ####[facility] [id number] [place] [address] [place] PT Coag (PPP) [Time] 13.9 s High 9.7-13.0 [facility] Comment on above: Order Comment: Qi reynolds Type: BLOOD SPECIMENOrdering Facility: [facility] Address: [address] [place] [address] Performed By: #### 3 255-7, 07247-4, 15502-7 ####[facility] [id number] [address] [address] [place] Phosphate SerPl-mCncon 09-23 Phosphate [Mass/Vol] 2.8 mg/dL Normal 2.7-4.8 [facility] Comment on above: Order Comment: Qi reynolds Type: BLOOD SPECIMENOrdering Facility: [facility] Address: [address] [place] [address] Performed By: #### 2 4323-8, 40826-4, 7-1, 4-1 ####[facility] LABCLIA [id number] [place] [id number] [place] TYPE + SCREENon 09-24-2023 HISTORICAL AB SCR STATUS Positive Abnormal [facility] Comment on above: Order Comment: Speci men Type: BLOOD SPECIMENOrdering Facility: [facility] Address: [address] [place] [address] Performed By: #### T SCR ####[facility] BLOOD BANKIA [id number] [place] [address] [place] TYPE AND SCREEN EXPIRATION 09/27/2023 23:59 Normal [facility] Comment on above: Order Comment: Speci men Type: BLOOD SPECIMENOrdering Facility: [facility] Address: [address] [place] [address] Performed By: #### T SCR ####[facility] BLOOD BANKCLIA [id number] [place] [id number] [place] Urate SerPl-mCncon Urate [Mass/Vol] 2.1 mg/dL Low 2.5-6.6 [facility] Comment on above: Order Comment: Speci men Type: BLOOD SPECIMENOrdering Facility: [facility] Address: [address] [place] [address] Performed By: #### 2 4323-8, 29112-8, 2776-1, 3083- ####[facility] LABCLIA [id number] [place] [id number] [place] aPTT PPPon 09-24-2023 aPTT Coag (PPP) [Time] 38.2 s High 23.0-32.4 [facility] Comment on above: Order Comment: Speci men Type: BLOOD SPECIMENOrdering Facility: [facility] Address: [address] [place] [address] Performed By: #### 3 255-7, 00925-8, 39183-0 ####[facility] LABCLIA [id number] [place] [address] [place] BMT REC INIT W/Uon ALLOGEN RESULTS TO FOLLOW See Allogen report to follow Normal [facility] Comment on above: Order Comment: Speci men Type: BLOOD SPECIMENOrdering Facility: [facility] Address: [address] [place] [address] Performed By: #### B MTRIW ####[facility]IESCLIA [id number] [place] [address] [place] CBC W Auto Differential pane l (Bld)on 09-23-2023 Anisocytosis Ql (Bld) Present Normal [facility] Comment on above: Order Comment: Speci men Type: BLOOD SPECIMENOrdering Facility: [facility] Address: [address] [place] [address] Performed By: #### 5 7021-8 ####[facility] LABCLIA [id number] [place] [address] [place] Basophilic stippling LM Ql (Bld) Occasional Normal [facility] Comment on above: Order Comment: Speci men Type: BLOOD SPECIMENOrdering Facility: [facility] Address: [address] [place] [address] Performed By: #### 5 7021-8 ####[facility] LABCLIA [id number] [place] [address] [place] Basophils (Bld) [#/Vol] 0.00 10*3/uL Normal <0.11 [facility] Comment on above: Order Comment: Speci men Type: BLOOD SPECIMENOrdering Facility: [facility] Address: [address] [place] [address] Performed By: #### 5 7021-8 ####[facility] LABCLIA [id number] [place] [address] [place] Basophils/100 WBC (Bld) 0.0 % Normal [facility] Comment on above: Order Comment: Speci men Type: BLOOD SPECIMENOrdering Facility: [facility] Address: [address] [place] [address] Performed By: #### 5 7021-8 ####[facility] LABCLIA [id number] [place] [address] [place] BLAST% 63.0 % High <=0.0 [facility] Comment on above: Order Comment: Speci men Type: BLOOD SPECIMENOrdering Facility: [facility] Address: [address] [place] [address] Performed By: #### 5 7021-8 ####[facility] LABCLIA [id number] [place] [address] [place] Dacrocytes LM Ql (Bld) Few Normal [facility] Comment on above: Order Comment: Speci men Type: BLOOD SPECIMENOrdering Facility: [facility] Address: [address] [place] [address] Performed By: #### 5 7021-8 ####[facility] LABCLIA [id number] [place] [address] [place] Differential cell count method Nom (Bld) Manual Normal [facility] Comment on above: Order Comment: Speci men Type: BLOOD SPECIMENOrdering Facility: [facility] Address: [address] [place] [address] Performed By: #### 5 7021-8 ####[facility] LABCLIA [id number] [place] [address] [place] Eosinophils (Bld) [#/Vol] 0.00 10*3/uL Normal <0.46 [facility] Comment on above: Order Comment: Speci men Type: BLOOD SPECIMENOrdering Facility: [facility] Address: [address] [place] [address] Performed By: #### 5 7021-8 ####[facility] LABCLIA [id number] [place] [address] [place] Eosinophils/100 WBC (Bld) 0.0 % Normal [facility] Comment on above: Order Comment: Speci men Type: BLOOD SPECIMENOrdering Facility: [facility] Address: [address] [place] [address] Performed By: #### 5 7021-8 ####[facility]CLIA [id number] [place] [address] [place] Erythrocyte distribution width (RBC) [Ratio] 22.2 % High 11.5-15.0 [facility] Comment on above: Order Comment: Speci men Type: BLOOD SPECIMENOrdering Facility: [facility] Address: [address] [place] [address] Performed By: #### 5 7021-8 ####[facility]CLIA [id number] [place] [address] [place] Hematocrit (Bld) [Volume fraction] 22.7 % Low 36.0-46.0 [facility] Comment on above: Order Comment: Speci men Type: BLOOD SPECIMENOrdering Facility: [facility] Address: [address] [place] [address] Performed By: #### 5 7021-8 ####[facility]CLIA [id number] [place] [address] [place] Hemoglobin (Bld) [Mass/Vol] 7.7 g/dL Low 11.5-15.5 [facility] Comment on above: Order Comment: Speci men Type: BLOOD SPECIMENOrdering Facility: [facility] [facility] Address: [address] [place] [address] Performed By: #### 5 7021-8 ####[facility] LABCLIA [id number] [place] [address] [place] Lymphocytes (Bld) [#/Vol] 1.52 10*3/uL Normal 1.00-4.00 [facility] Comment on above: Order Comment: Speci men Type: BLOOD SPECIMENOrdering Facility: [facility] Address: [address] [place] [address] Performed By: #### 5 7021-8 ####[facility] LABCLIA [id number] [place] [address] [place] Lymphocytes/100 WBC (Bld) 13.0 % Normal [facility] Comment on above: Order Comment: Speci men Type: BLOOD SPECIMENOrdering Facility: [facility] Address: [address] [place] [address] Performed By: #### 5 7021-8 ####[facility] LABCLIA [id number] [place] [address] [place] MCH (RBC) [Entitic mass] 32.1 pg Normal 26.0-34.0 [facility] Comment on above: Order Comment: Speci men Type: BLOOD SPECIMENOrdering Facility: [facility] Address: [address] [place] [address] Performed By: #### 5 7021-8 ####[facility] LABCLIA [id number] [place] [address] [place] MCHC (RBC) [Mass/Vol] 33.9 g/dL Normal 30.5-36.0 [facility] Comment on above: Order Comment: Speci men Type: BLOOD SPECIMENOrdering Facility: [facility] Address: [address] [place] [address] Performed By: #### 5 7021-8 ####[facility] LABCLIA [id number] [place] [address] [place] MCV (RBC) [Entitic vol] 94.6 fL Normal 80.0-100.0 [facility] Comment on above: Order Comment: Speci men Type: BLOOD SPECIMENOrdering Facility: [facility] Address: [address] [place] [address] Performed By: #### 5 7021-8 ####[facility] LABCLIA [id number] [place] [address] [place] Monocytes (Bld) [#/Vol] 0.35 10*3/uL Normal <0.87 [facility] Comment on above: Order Comment: Speci men Type: BLOOD SPECIMENOrdering Facility: [facility] Address: [address] [place] [address] Performed By: #### 5 7021-8 ####[facility] LABCLIA [id number] [place] [address] [place] Monocytes/100 WBC (Bld) 3.0 % Normal [facility] Comment on above: Order Comment: Speci men Type: BLOOD SPECIMENOrdering Facility: [facility] Address: [address] [place] [address] Performed By: #### 5 7021-8 ####[facility] LABCLIA [id number] [place] [address] [place] MYELO% 1.0 % Normal [facility] Comment on above: Order Comment: Speci men Type: BLOOD SPECIMENOrdering Facility: [facility] Address: [address] [place] [address] Performed By: #### 5 7021-8 ####[facility] LABCLIA [id number] [place] [address] [place] Neutrophils (Bld) [#/Vol] 2.33 10*3/uL Normal 1.45-7.50 [facility] Comment on above: Order Comment: Speci men Type: BLOOD SPECIMENOrdering Facility: [facility] Address: [address] [place] [address] Performed By: #### 5 7021-8 ####[facility] LABCLIA [id number] [place] [address] [place] Neutrophils/100 WBC (Bld) 20.0 % Normal [facility] Comment on above: Order Comment: Speci men Type: BLOOD SPECIMENOrdering Facility: [facility] Address: [address] [place] [address] Performed By: #### 5 7021-8 ####[facility] LABCLIA [id number] [place] [address] [place] Nucleated RBC (Bld) [#/Vol] 0.12 10*3/uL High <0.01 [facility] Comment on above: Order Comment: Speci men Type: BLOOD SPECIMENOrdering Facility: [facility] Address: [address] [place] [address] Performed By: #### 5 7021-8 ####[facility] LABIA [id number] [place] [address] [place] Nucleated RBC/100 WBC (Bld) [Ratio] 1.0 /100 WBC Normal [facility] Comment on above: Order Comment: Speci men Type: BLOOD SPECIMENOrdering Facility: [facility] Address: [address] [place] [address] Performed By: #### 5 7021-8 ####[facility] LABCLIA [id number] [place] [address] [place] Ovalocytes LM Ql (Bld) Few Normal [facility] Comment on above: Order Comment: Speci men Type: BLOOD SPECIMENOrdering Facility: [facility] Address: [address] [place] [address] Performed By: #### 5 7021-8 ####[facility] LABCLIA [id number] [place] [address] [place] Platelet mean volume (Bld) [Entitic vol] Normal [facility] Comment on above: Order Comment: Speci men Type: BLOOD SPECIMENOrdering Facility: [facility] Address: [address] [place] [address] Result Comment: Unab le to Report. Performed By: #### 5 7021-8 ####[facility] LABCLIA [id number] [place] [address] [place] Platelets (Bld) [#/Vol] 5 10*3/uL Critically low 150-400 [facility] Comment on above: Order Comment: Speci men Type: BLOOD SPECIMENOrdering Facility: [facility] Address: [address] [place] [address] Result Comment: Plat elet count confirmed by manual review of peripheral blood smear. Results checked and verified.No clot detected. Performed By: #### 5 7021-8 ####[facility] LABCLIA [id number] [place] [address] [place] Platelets Estimate (Bld) [#/Vol] Decreased Normal [facility] Comment on above: Order Comment: Speci men Type: BLOOD SPECIMENOrdering Facility: [facility] Address: [address] [place] [address] Performed By: #### 5 7021-8 ####[facility] LABCLIA [id number] [place] [address] [place] Polychromasia LM Ql (Bld) Slight Normal [facility] Comment on above: Order Comment: Speci men Type: BLOOD SPECIMENOrdering Facility: [facility] Address: [address] [place] [address] Performed By: #### 5 7021-8 ####[facility] LABCLIA [id number] [place] [address] [place] RBC (Bld) [#/Vol] 2.40 10*6/uL Low 3.90-5.20 [facility] Comment on above: Order Comment: Speci men Type: BLOOD SPECIMENOrdering Facility: [facility] Address: [address] [place] [address] Performed By: #### 5 7021-8 ####[facility] LABCLIA [id number] [place] [address] [place] RBC FRAGMENTS Few Abnormal None Seen [facility] Comment on above: Order Comment: Speci men Type: BLOOD SPECIMENOrdering Facility: [facility] Address: [address] [place] [address] Performed By: #### 5 7021-8 ####[facility] LABCLIA [id number] [place] [address] [place] RED CELL MORPH Reviewed: see result s of individual morphologies Normal [facility] Comment on above: Order Comment: Speci men Type: BLOOD SPECIMENOrdering Facility: [facility] Address: [address] [place] [address] Performed By: #### 5 7021-8 ####[facility] LABCLIA [id number] [place] [address] [place] SPHEROCYTES Few Normal [facility] Comment on above: Order Comment: Speci men Type: BLOOD SPECIMENOrdering Facility: [facility] Address: [address] [place] [address] Performed By: #### 5 7021-8 ####[facility] LABCLIA [id number] [place] [address] [place] WBC (Bld) [#/Vol] 11.67 10*3/uL High 3.70-11.00 [facility] Comment on above: Order Comment: Speci men Type: BLOOD SPECIMENOrdering Facility: [facility] Address: [address] [place] [address] Performed By: #### 5 7021-8 ####[facility] LABCLIA [id number] [place] [address] [place] WBC Left Shift Ql (Bld) Present Normal [facility] Comment on above: Order Comment: Speci men Type: BLOOD SPECIMENOrdering Facility: [facility] Address: [address] [place] [address] Performed By: #### 5 7021-8 ####[facility] LABCLIA [id number] [place] [address] [place] CMV IgG Qnon 03-10-2024 CMV IGG QUAL Negative Normal Negative [facility] Comment on above: Order Comment: Speci men Type: BLOOD SPECIMENOrdering Facility: [facility] Address: [address] [place] [address] Result Comment: No s erological evidence of past exposure to Cytomegalovirus. Cannot exclude recent infection if the specimen collected within 4-6 weeks after infection. Performed By: #### 7 852-7 ####[facility] LABCLIA [id number] [place] [address] [place] CMV IgG SerPl-aCncon 024 CMV IgG Qn <0.20 Normal [facility] Comment on above: Order Comment: Speci men Type: BLOOD SPECIMENOrdering Facility: [facility] Address: [address] [place] [address] Result Comment: The magnitude of the measured result is not indicative of the amount of antibody present.U/mL values are interpreted as follows:Negative <0.6Equivocal 0.6 to <0.70Positive >=0.70 Performed By: #### 7 852-7 ####[facility] LABCLIA [id number] [place] [address] [place] Comprehensive metabolic 2000 panelon 09-23-2023 Albumin [Mass/Vol] 2.9 g/dL Low 3.9-4.9 [facility] Comment on above: Order Comment: Speci men Type: BLOOD SPECIMENOrdering Facility: [facility] Address: [address] [place] [address] Performed By: #### 2 4323-8, 79555-1, 2777-1, 3084-1 ####[facility] LABIA [id number] [place] [address] [place] ALP [Catalytic activity/Vol] 63 U/L Normal 34-123 [facility] Comment on above: Order Comment: Speci men Type: BLOOD SPECIMENOrdering Facility: [facility] Address: [address] [place] [address] Performed By: #### 2 4323-8, 02007-5, 2777-1, 3084-1 ####[facility] LABCLIA [id number] [address] [address] [place] ALT [Catalytic activity/Vol] 22 U/L Normal 7-38 [facility] Comment on above: Order Comment: Speci men Type: BLOOD SPECIMENOrdering Facility: [facility] Address: [address] [place], [place] [address] Performed By: #### 2 4323-8, 60772-6, 2777-1, 3084-1 ####[facility] LABIA [id number] [place] [address] [place] Anion gap [Moles/Vol] 11 mmol/L Normal 9-18 [facility] Comment on above: Order Comment: Speci men Type: BLOOD SPECIMENOrdering Facility: [facility] Address: [address] [place] [address] Performed By: #### 2 4323-8, 50254-4, 277-1, 3084-1 ####[facility] LABIA [id number] [place] [address] [place] AST [Catalytic activity/Vol] 28 U/L Normal 13-35 [facility] Comment on above: Order Comment: Speci men Type: BLOOD SPECIMENOrdering Facility: [facility] Address: [address] [place], [place] [address] Performed By: #### 2 4323-8, 26975-4, 7-1, 3084-1 ####[facility] LABIA [id number] [place] [address] [place] Bilirubin [Mass/Vol] 0.5 mg/dL Normal 0.2-1.3 [facility] Comment on above: Order Comment: Speci men Type: BLOOD SPECIMENOrdering Facility: [facility] Address: [address] [place], [place] [address] Performed By: #### 2 4323-8, 10310-6, 2777-1, 3084-1 ####[facility] LABIA [id number] [address] [address] [place] Calcium [Mass/Vol] 8.5 mg/dL Normal 8.5-10.2 [facility] Comment on above: Order Comment: Speci men Type: BLOOD SPECIMENOrdering Facility: [facility] Address: [address] [place], [place] [address] Performed By: #### 2 4323-8, 36102-7, 2776-1, 3084-1 ####[facility] LABIA [id number] [place] [address] [place] Chloride [Moles/Vol] 101 mmol/L Normal 97-105 [facility] Comment on above: Order Comment: Speci men Type: BLOOD SPECIMENOrdering Facility: [facility] Address: [address] [place] [address] Performed By: #### 2 4323-8, 46834-2, 277-1, 3084-1 ####[facility] LABIA [id number] [address] [address] [place] CO2 [Moles/Vol] 24 mmol/L Normal 22-30 [facility] Comment on above: Order Comment: Speci men Type: BLOOD SPECIMENOrdering Facility: [facility] Address: [address] [place] [address] Performed By: #### 2 4323-8, 30324-8, 2776-1, 3084-1 ####[facility] LABIA [id number] [address] [address] [place] Creatinine [Mass/Vol] 0.67 mg/dL Normal 0.58-0.96 [facility] Comment on above: Order Comment: Speci men Type: BLOOD SPECIMENOrdering Facility: [facility] Address: [address] [place], [place] [address] Performed By: #### 2 4323-8, 33875-1, 2777-1, 3084-1 ####[facility] LABIA [id number] [place] [address] [place] Creatinine and Glomerular filtration rate.predicted panel (S/P/Bld) 88 mL/min/1.73m??? Normal >=60 [facility] Comment on above: Order Comment: Qi reynolds Type: BLOOD SPECIMENOrdering Facility: [facility] Address: [address] [place] [address] Result Comment: Akiko mated Glomerular Filtration Rate [...] actual GFR. Performed By: #### 2 4323-8, 43095-8, 2776-1, 3083-1 ####[facility] LABIA [id number] [place] [address] [place] Glucose [Mass/Vol] 103 mg/dL High 74-99 [facility] Comment on above: Order Comment: Qi reynolds Type: BLOOD SPECIMENOrdering Facility: [facility] Address: [address] [place] [address] Result Comment: The [place] [employer] (ADA) provides guidance for cutoff [...] Standards of Medical Care in Diabetes 2016, [place] [employer]. Diabetes Care. 2016.39(Suppl 1). Performed By: #### 2 4323-8, 83247-3, 2777-1, 3084-1 ####[facility] LABCLIA [id number] [address] [address] [place] Potassium [Moles/Vol] 3.5 mmol/L Low 3.7-5.1 [facility] Comment on above: Order Comment: Speci men Type: BLOOD SPECIMENOrdering Facility: [facility] Address: [address] [place] [address] Performed By: #### 2 4323-8, 16682-1, 7-1, 3084-1 ####[facility] LABIA [id number] [place] [address] [place] Protein [Mass/Vol] 5.1 g/dL Low 6.3-8.0 [facility] Comment on above: Order Comment: Speci men Type: BLOOD SPECIMENOrdering Facility: [facility] Address: [address] [place] [address] Performed By: #### 2 4323-8, 78752-1, 277-1, 3084-1 ####[facility] LABIA [id number] [place] [address] [place] Sodium [Moles/Vol] 136 mmol/L Normal 136-144 [facility] Comment on above: Order Comment: Speci men Type: BLOOD SPECIMENOrdering Facility: [facility] Address: [address] [place] [address] Performed By: #### 2 4323-8, 66579-2, 2777-1, 3084-1 ####[facility] LABIA [id number] [place] [address] [place] Urea nitrogen [Mass/Vol] 13 mg/dL Normal 7-21 [facility] Comment on above: Order Comment: Speci men Type: BLOOD SPECIMENOrdering Facility: [facility] Address: [address] [place] [address] Performed By: #### 2 4323-8, 40969-6, 2777-1, 3084-1 ####[facility] LABCLIA [id number] [place] [address] [place] Fibrinogen PPP-mCncon 2023 Fibrinogen Coag (PPP) [Mass/Vol] 561 mg/dL High 200-400 [facility] Comment on above: Order Comment: Speci men Type: BLOOD SPECIMENOrdering Facility: [facility] Address: [address] [place] [address] Result Comment: Samp le checked for clot.Result rechecked. Performed By: #### 3 255-7, 22279-0, 67526-1 ####[facility] LABCLIA [id number] [place] [address] [place] MEDICAL EMERon 09-23-2023 MEDICAL EDMUND Normal [facility] Magnesium SerPl-ncon 09-22 Magnesium [Mass/Vol] 2.1 mg/dL Normal 1.7-2.3 [facility] Comment on above: Order Comment: Speci men Type: BLOOD SPECIMENOrdering Facility: [facility] Address: [address] [place] [address] Performed By: #### 2 4323-8, 10578-6, 2777-1, 3084-1 ####[facility] LABIA [id number] [place] [address] [place] NURSING PROGon 09-23-2023 NURSING PROG Normal [facility] PT panel Coag (PPP)on 2023 INR Coag (PPP) [Relative time] 1.4 {INR} High 0.9-1.3 [facility] Comment on above: Order Comment: Speci men Type: BLOOD SPECIMENOrdering Facility: [facility] Address: [address] [place] [address] Result Comment: Samp le checked for clot.Vitamin K Antagonist (VKA) Therapeutic Range: INR 2 to 3 (Target INR of 2.5)Note: For patients treated with VKA drugs, such as warfarin, the [employer] 2012 Guideline recommends [...] al. Chest 2012, 141:7S-47SNishimura RA, et al. [facility] 2017, 70: 252-289 Performed By: #### 3 255-7, 25199-5, 49517-1 ####[facility] LABCLIA [id number] [place] [address] [place] PT Coag (PPP) [Time] 14.6 s High 9.7-13.0 [facility] Comment on above: Order Comment: Speci men Type: BLOOD SPECIMENOrdering Facility: [facility] Address: [address] [place] [address] Performed By: #### 3 255-7, 65417-4, 61894-4 ####[facility] LABCLIA [id number] [place] [address] [place] Phosphate SerPl-mCncon 09-22 Phosphate [Mass/Vol] 4.7 mg/dL Normal 2.7-4.8 [facility] Comment on above: Order Comment: Speci men Type: BLOOD SPECIMENOrdering Facility: [facility] Address: [address] [place] [address] Performed By: #### 2 4323-8, 42673-3, 2777-1, 3084-1 ####[facility] LABCLIA [id number] [place] [address] [place] Urate SerPl-mCncon 03-10-202 4 Urate [Mass/Vol] 2.8 mg/dL Normal 2.5-6.6 [facility] Comment on above: Order Comment: Speci men Type: BLOOD SPECIMENOrdering Facility: [facility] Address: [address] [place] [address] Performed By: #### 2 4323-8, 89030-1, 2777-1, 3084-1 ####[facility] LABCLIA [id number] [place] [address] [place] aPTT PPPon 09-23-2023 aPTT Coag (PPP) [Time] 37.3 s High 23.0-32.4 [facility] Comment on above: Order Comment: Speci men Type: BLOOD SPECIMENOrdering Facility: [facility] Address: [address] [place] [address] Performed By: #### 3 255-7, 54856-7, 05889-1 ####[facility] LABCLIA [id number] [place] [address] [place] Bacteria Bld Culton 09-22-19 24 Bacteria identified Cx Nom (Bld) CULTURE, BLOOD: No growth 5 days Normal [facility] Comment on above: Performed By: #### 6 00-7 ####[facility] LABCLIA [id number] [place] [address] [place] CBC W Auto Differential pane l (Bld)on 09-22-2023 Anisocytosis Ql (Bld) Present Normal [facility] Comment on above: Order Comment: Speci men Type: BLOOD SPECIMENOrdering Facility: [facility] Address: [address] [place] [address] Performed By: #### 5 7021-8 ####[facility] LABCLIA [id number] [place] [address] [place] Basophils (Bld) [#/Vol] 0.00 10*3/uL Normal <0.11 [facility] Comment on above: Order Comment: Speci men Type: BLOOD SPECIMENOrdering Facility: [facility] Address: [address] [place] [address] Performed By: #### 5 7021-8 ####[facility] LABCLIA [id number] [place] [address] [place] Basophils/100 WBC (Bld) 0.0 % Normal [facility] Comment on above: Order Comment: Speci men Type: BLOOD SPECIMENOrdering Facility: [facility] Address: [address] [place] [address] Performed By: #### 5 7021-8 ####[facility] LABCLIA [id number] [place] [address] [place] BLAST% 69.0 % High <=0.0 [facility] Comment on above: Order Comment: Speci men Type: BLOOD SPECIMENOrdering Facility: [facility] Address: [address] [place] [address] Performed By: #### 5 7021-8 ####[facility] LABCLIA [id number] [place] [address] [place] Dacrocytes LM Ql (Bld) Few Normal [facility] Comment on above: Order Comment: Speci men Type: BLOOD SPECIMENOrdering Facility: [facility] Address: [address] [place] [address] Performed By: #### 5 7021-8 ####[facility] LABCLIA [id number] [place] [address] [place] Differential cell count method Nom (Bld) Manual Normal [facility] Comment on above: Order Comment: Speci men Type: BLOOD SPECIMENOrdering Facility: [facility] Address: [address] [place] [address] Performed By: #### 5 7021-8 ####[facility] LABCLIA [id number] [place] [address] [place] Eosinophils (Bld) [#/Vol] 0.00 10*3/uL Normal <0.46 [facility] Comment on above: Order Comment: Speci men Type: BLOOD SPECIMENOrdering Facility: [facility] Address: [address] [place] [address] Performed By: #### 5 7021-8 ####[facility] [facility] LABCLIA [id number] [place] [address] [place] Eosinophils/100 WBC (Bld) 0.0 % Normal [facility] Comment on above: Order Comment: Speci men Type: BLOOD SPECIMENOrdering Facility: [facility] Address: [address] [place] [address] Performed By: #### 5 7021-8 ####[facility] LABCLIA [id number] [place] [address] [place] Erythrocyte distribution width (RBC) [Ratio] 22.0 % High 11.5-15.0 [facility] Comment on above: Order Comment: Speci men Type: BLOOD SPECIMENOrdering Facility: [facility] Address: [address] [place] [address] Performed By: #### 5 7021-8 ####[facility] LABCLIA [id number] [place] [address] [place] Hematocrit (Bld) [Volume fraction] 22.7 % Low 36.0-46.0 [facility] Comment on above: Order Comment: Speci men Type: BLOOD SPECIMENOrdering Facility: [facility] Address: [address] [place] [address] Performed By: #### 5 7021-8 ####[facility] LABCLIA [id number] [place] [address] [place] Hemoglobin (Bld) [Mass/Vol] 7.6 g/dL Low 11.5-15.5 [facility] Comment on above: Order Comment: Speci men Type: BLOOD SPECIMENOrdering Facility: [facility] Address: [address] [place] [address] Performed By: #### 5 7021-8 ####[facility] LABCLIA [id number] [place] [address] [place] Lymphocytes (Bld) [#/Vol] 1.43 10*3/uL Normal 1.00-4.00 [facility] Comment on above: Order Comment: Speci men Type: BLOOD SPECIMENOrdering Facility: [facility] Address: [address] [place] [address] Performed By: #### 5 7021-8 ####[facility] LABCLIA [id number] [place] [address] [place] Lymphocytes/100 WBC (Bld) 9.0 % Normal [facility] Comment on above: Order Comment: Speci men Type: BLOOD SPECIMENOrdering Facility: [facility] Address: [address] [place] [address] Performed By: #### 5 7021-8 ####[facility] LABCLIA [id number] [place] [address] [place] MCH (RBC) [Entitic mass] 31.4 pg Normal 26.0-34.0 [facility] Comment on above: Order Comment: Speci men Type: BLOOD SPECIMENOrdering Facility: [facility] Address: [address] [place] [address] Performed By: #### 5 7021-8 ####[facility] LABCLIA [id number] [place] [address] [place] MCHC (RBC) [Mass/Vol] 33.5 g/dL Normal 30.5-36.0 [facility] Comment on above: Order Comment: Speci men Type: BLOOD SPECIMENOrdering Facility: [facility] Address: [address] [place] [address] Performed By: #### 5 7021-8 ####[facility] LABCLIA [id number] [place] [address] [place] MCV (RBC) [Entitic vol] 93.8 fL Normal 80.0-100.0 [facility] Comment on above: Order Comment: Speci men Type: BLOOD SPECIMENOrdering Facility: [facility] Address: [address] [place] [address] Performed By: #### 5 7021-8 ####[facility] LABCLIA [id number] [place] [address] [place] Monocytes (Bld) [#/Vol] 0.16 10*3/uL Normal <0.87 [facility] Comment on above: Order Comment: Speci men Type: BLOOD SPECIMENOrdering Facility: [facility] Address: [address] [place] [address] Performed By: #### 5 7021-8 ####[facility] LABCLIA [id number] [place] [address] [place] Monocytes/100 WBC (Bld) 1.0 % Normal [facility] Comment on above: Order Comment: Speci men Type: BLOOD SPECIMENOrdering Facility: [facility] Address: [address] [place] [address] Performed By: #### 5 7021-8 ####[facility] LABCLIA [id number] [place] [address] [place] MYELO% 1.0 % Normal [facility] Comment on above: Order Comment: Speci men Type: BLOOD SPECIMENOrdering Facility: [facility] Address: [address] [place] [address] Performed By: #### 5 7021-8 ####[facility] LABCLIA [id number] [place] [address] [place] Neutrophils (Bld) [#/Vol] 3.18 10*3/uL Normal 1.45-7.50 [facility] Comment on above: Order Comment: Speci men Type: BLOOD SPECIMENOrdering Facility: [facility] Address: [address] [place] [address] Performed By: #### 5 7021-8 ####[facility] LABCLIA [id number] [place] [address] [place] Neutrophils/100 WBC (Bld) 20.0 % Normal [facility] Comment on above: Order Comment: Speci men Type: BLOOD SPECIMENOrdering Facility: [facility] Address: [address] [place] [address] Performed By: #### 5 7021-8 ####[facility] LABCLIA [id number] [place] [address] [place] Nucleated RBC (Bld) [#/Vol] 10*3/uL Normal <0.01 [facility] Comment on above: Order Comment: Speci men Type: BLOOD SPECIMENOrdering Facility: [facility] Address: [address] [place] [address] Performed By: #### 5 7021-8 ####[facility] LABCLIA [id number] [place] [address] [place] Nucleated RBC/100 WBC (Bld) [Ratio] 0.0 /100 WBC Normal [facility] Comment on above: Order Comment: Speci men Type: BLOOD SPECIMENOrdering Facility: [facility] Address: [address] [place] [address] Performed By: #### 5 7021-8 ####[facility] LABCLIA [id number] [place] [address] [place] Ovalocytes LM Ql (Bld) Few Normal [facility] Comment on above: Order Comment: Speci men Type: BLOOD SPECIMENOrdering Facility: [facility] Address: [address] [place] [address] Performed By: #### 5 7021-8 ####[facility] LABCLIA [id number] [place] [address] [place] Platelet mean volume (Bld) [Entitic vol] Normal [facility] Comment on above: Order Comment: Speci men Type: BLOOD SPECIMENOrdering Facility: [facility] Address: [address] [place] [address] Result Comment: Unab le to Report. Performed By: #### 5 7021-8 ####[facility] LABCLIA [id number] [place] [address] [place] Platelets (Bld) [#/Vol] 10 10*3/uL Low 150-400 [facility] Comment on above: Order Comment: Speci men Type: BLOOD SPECIMENOrdering Facility: [facility] Address: [address] [place] [address] Result Comment: Resu lts checked and verified.No clot detected. Performed By: #### 5 7021-8 ####[facility] LABCLIA [id number] [place] [address] [place] Platelets Estimate (Bld) [#/Vol] Decreased Normal [facility] Comment on above: Order Comment: Speci men Type: BLOOD SPECIMENOrdering Facility: [facility] Address: [address] [place] [address] Performed By: #### 5 7021-8 ####[facility] LABCLIA [id number] [place] [address] [place] Polychromasia LM Ql (Bld) Slight Normal [facility] Comment on above: Order Comment: Speci men Type: BLOOD SPECIMENOrdering Facility: [facility] Address: [address] [place] [address] Performed By: #### 5 7021-8 ####[facility] LABCLIA [id number] [place] [address] [place] RBC (Bld) [#/Vol] 2.42 10*6/uL Low 3.90-5.20 [facility] Comment on above: Order Comment: Speci men Type: BLOOD SPECIMENOrdering Facility: [facility] Address: [address] [place] [address] Performed By: #### 5 7021-8 ####[facility] LABIA [id number] [place] [address] [place] RED CELL MORPH Reviewed: see result s of individual morphologies Normal [facility] Comment on above: Order Comment: Speci men Type: BLOOD SPECIMENOrdering Facility: [facility] Address: [address] [place] [address] Performed By: #### 5 7021-8 ####[facility] LABIA [id number] [place] [address] [place] WBC (Bld) [#/Vol] 15.91 10*3/uL High 3.70-11.00 [facility] Comment on above: Order Comment: Speci men Type: BLOOD SPECIMENOrdering Facility: [facility] Address: [address] [place] [address] Result Comment: Resu lts checked and verified.No clot detected. Performed By: #### 5 7021-8 ####[facility] LABIA [id number] [place] [address] [place] WBC Left Shift Ql (Bld) Present Normal [facility] Comment on above: Order Comment: Speci men Type: BLOOD SPECIMENOrdering Facility: [facility] Address: [address] [place] [address] Performed By: #### 5 7021-8 ####[facility] LABIA [id number] [place] [address] [place] Comprehensive metabolic 2000 panelon 09-22-2023 Albumin [Mass/Vol] 2.9 g/dL Low 3.9-4.9 [facility] Comment on above: Order Comment: Speci men Type: BLOOD SPECIMENOrdering Facility: [facility] Address: [address] [place] [address] Performed By: #### 2 4323-8, 61186-7, 2776-, 3083- ####[facility] LABCLIA [id number] [address] [address] [place] ALP [Catalytic activity/Vol] 60 U/L Normal 34-123 [facility] Comment on above: Order Comment: Speci men Type: BLOOD SPECIMENOrdering Facility: [facility] Address: [address] [place] [address] Performed By: #### 2 432-8, , 2776-, 3083- ####[facility] LABCLIA [id number] [place] [address] [place] ALT [Catalytic activity/Vol] 16 U/L Normal 7-38 [facility] Comment on above: Order Comment: Speci men Type: BLOOD SPECIMENOrdering Facility: [facility] Address: [address] [place] [address] Performed By: #### 2 4323-8, , 2776-, 308- ####[facility] LABIA [id number] [place] [id number] [place] Anion gap [Moles/Vol] 9 mmol/L Normal 9-18 [facility] Comment on above: Order Comment: Speci men Type: BLOOD SPECIMENOrdering Facility: [facility] Address: [address] [place] [address] Performed By: #### 2 4323-8, 32230-9, 2776-07, 308- ####[facility] LABCLIA [id number] [address] [address] [place] AST [Catalytic activity/Vol] 26 U/L Normal 13-35 [facility] Comment on above: Order Comment: Speci men Type: BLOOD SPECIMENOrdering Facility: [facility] Address: [address] [place] [address] Performed By: #### 2 4323-8, 48303-1, 2776-, 308-1 ####[facility] LABCLIA [id number] [address] [address] [place] Bilirubin [Mass/Vol] 0.4 mg/dL Normal 0.2-1.3 [facility] Comment on above: Order Comment: Speci men Type: BLOOD SPECIMENOrdering Facility: [facility] Address: [address] [place] [address] Performed By: #### 2 4323-8, 29816-4, 2776-07, 3083- ####[facility] LABCLIA [id number] [address] [address] [place] Calcium [Mass/Vol] 8.6 mg/dL Normal 8.5-10.2 [facility] Comment on above: Order Comment: Speci men Type: BLOOD SPECIMENOrdering Facility: [facility] Address: [address] [place] [address] Performed By: #### 2 4323-8, 03727-1, 2776-07, 3083- ####[facility] LABIA [id number] [address] [address] [place] Chloride [Moles/Vol] 104 mmol/L Normal 97-105 [facility] Comment on above: Order Comment: Speci men Type: BLOOD SPECIMENOrdering Facility: [facility] Address: [address] [place] [address] Performed By: #### 2 4323-8, 35158-0, 2776-07, 3083- ####[facility] LABCLIA [id number] [address] [address] [place] CO2 [Moles/Vol] 24 mmol/L Normal 22-30 [facility] Comment on above: Order Comment: Speci men Type: BLOOD SPECIMENOrdering Facility: [facility] Address: [address] [place] [address] Performed By: #### 2 4323-8, 71426-6, 2776-07, 3084-1 ####[facility] LABCLIA [id number] [address] [address] [place] Creatinine [Mass/Vol] 0.57 mg/dL Low 0.58-0.96 [facility] Comment on above: Order Comment: Qi reynolds Type: BLOOD SPECIMENOrdering Facility: [facility] Address: [address] [place] [address] Performed By: #### 2 4323-8, 53017-0, 2776-07, 3083-07 ####[facility] LABCLIA [id number] [place] [address] [place] Creatinine and Glomerular filtration rate.predicted panel (S/P/Bld) 91 mL/min/1.73m??? Normal >=60 [facility] Comment on above: Order Comment: Qi reynolds Type: BLOOD SPECIMENOrdering Facility: [facility] Address: [address] [place] [address] Result Comment: Akiko mated Glomerular Filtration Rate [...] actual GFR. Performed By: #### 2 4323-8, 20241-9, 2776-07, 3083-07 ####[facility] LABCLIA [id number] [place] [id number] [place] Glucose [Mass/Vol] 87 mg/dL Normal 74-99 [facility] Comment on above: Order Comment: Qi reynolds Type: BLOOD SPECIMENOrdering Facility: [facility] Address: [address] [place] [address] Result Comment: The [place] [employer] (ADA) provides guidance for cutoff [...] Standards of Medical Care in Diabetes 2016, [place] [employer]. Diabetes Care. 2016.39(Suppl 1). Performed By: #### 2 4323-8, 93572-1, 2776-07, 3083- ####[facility] LABIA [id number] [address] [address] [place] Potassium [Moles/Vol] 3.5 mmol/L Low 3.7-5.1 [facility] Comment on above: Order Comment: Speci men Type: BLOOD SPECIMENOrdering Facility: [facility] Address: [address] [place] [address] Performed By: #### 2 4323-8, 90700-7, 2776-07, 3083-07 ####[facility] [id number] [place] [id number] [place] Protein [Mass/Vol] 5.1 g/dL Low 6.3-8.0 [facility] Comment on above: Order Comment: Qi reynolds Type: BLOOD SPECIMENOrdering Facility: [facility] Address: [address] [place], [place] [address] Performed By: #### 2 4323-8, 22274-0, 2776-07, 3083-07 ####[facility] [id number] [place] [id number] [place] Sodium [Moles/Vol] 137 mmol/L Normal 136-144 [facility] Comment on above: Order Comment: Nikkii men Type: BLOOD SPECIMENOrdering Facility: [facility] Address: [address] [place], [place] [address] Performed By: #### 2 4323-8, 95709-6, 2776-07, 3083-07 ####[facility] LABCLIA [id number] [place] [id number] [place] Urea nitrogen [Mass/Vol] 8 mg/dL Normal 7-21 [facility] Comment on above: Order Comment: Speci men Type: BLOOD SPECIMENOrdering Facility: [facility] Address: [address] [place] [address] Performed By: #### 2 4323-8, 20025-2, 2776-07, 3083-07 ####[facility] LABCLIA [id number] [place] [id number] [place] Fibrinogen PPP-mCncon 2023 Fibrinogen Coag (PPP) [Mass/Vol] 532 mg/dL High 200-400 [facility] Comment on above: Order Comment: Speci men Type: BLOOD SPECIMENOrdering Facility: [facility] Address: [address] [place] [address] Result Comment: Samp le checked for clot.Result rechecked. Performed By: #### 3 255-7, 26472-7, 59783-5 ####[facility] LABIA [id number] [place] [address] [place] MEDICAL EMERon 09-22-2023 MEDICAL EDMUND Normal [facility] Magnesium SerPl-mCncon 09-21 Magnesium [Mass/Vol] 1.9 mg/dL Normal 1.7-2.3 [facility] Comment on above: Order Comment: Speci men Type: BLOOD SPECIMENOrdering Facility: [facility] Address: [address] [place] [address] Performed By: #### 2 4323-8, 94030-5, 2776-07, 3083-07 ####[facility] LABCLIA [id number] [place] [id number] [place] PT panel Coag (PPP)on 2023 INR Coag (PPP) [Relative time] 1.4 {INR} High 0.9-1.3 [facility] Comment on above: Order Comment: Qi reynolds Type: BLOOD SPECIMENOrdering Facility: [facility] Address: [address] [place] [address] Result Comment: Clementine min K Antagonist (VKA) Therapeutic Range: INR 2 to 3 (Target INR of 2.5)Note: For patients treated with VKA drugs, such as warfarin, the [employer] 2012 Guideline recommends [...] al. Chest 2012, 141:7S-47SNishimura RA, et al. [facility] 2017, 70: 252-289 Performed By: #### 3 255-7, 32640-6, 87005-1 ####[facility] [id number] [place] [address] [place] PT Coag (PPP) [Time] 14.9 s High 9.7-13.0 [facility] Comment on above: Order Comment: Qi reynolds Type: BLOOD SPECIMENOrdering Facility: [facility] Address: [address] [place] [address] Performed By: #### 3 255-7, 87364-2, 69225-8 ####[facility] [id number] [place] [address] [place] Phosphate SerPl-mCncon 09-21 Phosphate [Mass/Vol] 3.5 mg/dL Normal 2.7-4.8 [facility] Comment on above: Order Comment: Qi reynolds Type: BLOOD SPECIMENOrdering Facility: [facility] Address: [address] [place] [address] Performed By: #### 2 4323-8, 33480-7, 2777-1, 3084-1 ####[facility] LABCLIA [id number] [place] [address] [place] SEPSIS LACTATEon 09-22-2023 Lactate [Moles/Vol] 1.1 mmol/L Normal <=2.0 [facility] Comment on above: Order Comment: Speci men Type: BLOOD SPECIMENOrdering Facility: [facility] Address: [address] [place] [address] Performed By: #### S LACT ####[facility] LABCLIA [id number] [place] [address] [place] Urate SerPl-mCncon Urate [Mass/Vol] 2.7 mg/dL Normal 2.5-6.6 [facility] Comment on above: Order Comment: Speci men Type: BLOOD SPECIMENOrdering Facility: [facility] Address: [address] [place] [address] Performed By: #### 2 4323-8, 27227-5, 2777-1, 3084-1 ####[facility] LABCLIA [id number] [place] [address] [place] Urinalysis complete panel (U )on 09-22-2023 Bacteria LM.HPF (Urine sed) [#/Area] Negative Normal Negative [facility] Comment on above: Order Comment: Speci men Type: URINE SPECIMENOrdering Facility: [facility] Address: [address] [place] [address] Performed By: #### 2 4356-8 ####[facility] LABCLIA [id number] [place] [address] [place] Bilirubin Ql (U) Negative Normal Negative [facility] Comment on above: Order Comment: Speci men Type: URINE SPECIMENOrdering Facility: [facility] Address: [address] [place] [address] Performed By: #### 2 4356-8 ####[facility] LABCLIA [id number] [place] [address] [place] Clarity (Unsp spec) Clear Normal Clear [facility] Comment on above: Order Comment: Speci men Type: URINE SPECIMENOrdering Facility: [facility] Address: [address] [place] [address] Performed By: #### 2 4356-8 ####[facility] LABCLIA [id number] [place] [address] [place] Color (U) Yellow Normal Yellow [facility] Comment on above: Order Comment: Speci men Type: URINE SPECIMENOrdering Facility: [facility] Address: [address] [place] [address] Performed By: #### 2 4356-8 ####[facility] LABIA [id number] [place] [address] [place] Epithelial cells LM.HPF (Urine sed) [#/Area] Few Normal [facility] Comment on above: Order Comment: Speci men Type: URINE SPECIMENOrdering Facility: [facility] Address: [address] [place] [address] Performed By: #### 2 4356-8 ####[facility] LABIA [id number] [place] [address] [place] Glucose Test strip (U) [Mass/Vol] Negative Normal Negative [facility] Comment on above: Order Comment: Speci men Type: URINE SPECIMENOrdering Facility: [facility] Address: [address] [place] [address] Performed By: #### 2 4356-8 ####[facility] LABCLIA [id number] [place] [address] [place] Hemoglobin Ql (U) Negative Normal Negative [facility] Comment on above: Order Comment: Speci men Type: URINE SPECIMENOrdering Facility: [facility] Address: [address] [place] [address] Performed By: #### 2 4356-8 ####[facility] LABCLIA [id number] [place] [address] [place] Hyaline casts (Urine sed) [#/Area] 0 /[LPF] Normal 0 /LPF [facility] Comment on above: Order Comment: Speci men Type: URINE SPECIMENOrdering Facility: [facility] Address: [address] [place] [address] Performed By: #### 2 4356-8 ####[facility] LABCLIA [id number] [place] [address] [place] Ketones Ql (U) Trace Abnormal Negative [facility] Comment on above: Order Comment: Speci men Type: URINE SPECIMENOrdering Facility: [facility] Address: [address] [place] [address] Performed By: #### 2 4356-8 ####[facility] [facility] LABCLIA [id number] [place] [address] [place] Leukocyte esterase Test strip Ql (U) Trace Abnormal Negative [facility] Comment on above: Order Comment: Speci men Type: URINE SPECIMENOrdering Facility: [facility] Address: [address] [place] [address] Performed By: #### 2 4356-8 ####[facility] LABCLIA [id number] [place] [address] [place] Nitrite Ql (U) Negative Normal Negative [facility] Comment on above: Order Comment: Speci men Type: URINE SPECIMENOrdering Facility: [facility] Address: [address] [place] [address] Performed By: #### 2 4356-8 ####[facility] LABCLIA [id number] [place] [address] [place] pH (U) 6.0 [pH] Normal <8.5 [facility] Comment on above: Order Comment: Speci men Type: URINE SPECIMENOrdering Facility: [facility] Address: [address] [place] [address] Performed By: #### 2 4356-8 ####[facility] LABIA [id number] [place] [address] [place] Protein (U) [Mass/Vol] 1+ Abnormal Negative [facility] Comment on above: Order Comment: Speci men Type: URINE SPECIMENOrdering Facility: [facility] Address: [address] [place] [address] Performed By: #### 2 4356-8 ####[facility] LABIA [id number] [place] [address] [place] RBC LM.HPF (Urine sed) [#/Area] 0-2 /HPF Normal 0-2 /HPF [facility] Comment on above: Order Comment: Speci men Type: URINE SPECIMENOrdering Facility: [facility] Address: [address] [place] [address] Performed By: #### 2 4356-8 ####[facility] LABIA [id number] [place] [address] [place] Specific gravity (U) [Rel density] 1.020 Normal 1.005-1.030 [facility] Comment on above: Order Comment: Speci men Type: URINE SPECIMENOrdering Facility: [facility] Address: [address] [place] [address] Performed By: #### 2 4356-8 ####[facility] LABIA [id number] [place] [address] [place] Urobilinogen Ql (U) 1.0 EU/dL Normal 0.2-1.0 EU/dL [facility] Comment on above: Order Comment: Speci men Type: URINE SPECIMENOrdering Facility: [facility] Address: [address] [place] [address] Performed By: #### 2 4356-8 ####[facility] LABCLIA [id number] [place] [address] [place] WBC LM.HPF (Urine sed) [#/Area] 0-5 /HPF Normal 0-5 /HPF [facility] Comment on above: Order Comment: Speci men Type: URINE SPECIMENOrdering Facility: [facility] Address: [address] [place] [address] Performed By: #### 2 4356-8 ####[facility] LABIA [id number] [place] [address] [place] XR CHEST 1V FRONTAL PORTon 0 09-22-2023 XR CHEST 1V FRONTAL PORT Normal [facility] aPTT PPPon 09-22-2023 aPTT Coag (PPP) [Time] 37.3 s High 23.0-32.4 [facility] Comment on above: Order Comment: Speci men Type: BLOOD SPECIMENOrdering Facility: [facility] Address: [address] [place] [address] Performed By: #### 3 255-7, 74606-8, 50337-4 ####[facility] LABIA [id number] [place] [address] [place] ALLIED HEALTHon 09-21-2023 ALLIED HEALTH Normal [facility] CBC W Auto Differential pane l (Bld)on 09-21-2023 Anisocytosis Ql (Bld) Present Normal [facility] Comment on above: Order Comment: Speci men Type: BLOOD SPECIMENOrdering Facility: [facility] Address: [address] [place] [address] Performed By: #### 5 7021-8 ####[facility] LABCLIA [id number] [place] [address] [place] Basophils (Bld) [#/Vol] 0.00 10*3/uL Normal <0.11 [facility] Comment on above: Order Comment: Speci men Type: BLOOD SPECIMENOrdering Facility: [facility] Address: [address] [place] [address] Performed By: #### 5 7021-8 ####[facility] LABCLIA [id number] [place] [address] [place] Basophils/100 WBC (Bld) 0.0 % Normal [facility] Comment on above: Order Comment: Speci men Type: BLOOD SPECIMENOrdering Facility: [facility] Address: [address] [place] [address] Performed By: #### 5 7021-8 ####[facility] LABCLIA [id number] [place] [address] [place] BLAST% 60.0 % High <=0.0 [facility] Comment on above: Order Comment: Speci men Type: BLOOD SPECIMENOrdering Facility: [facility] Address: [address] [place] [address] Performed By: #### 5 7021-8 ####[facility] LABCLIA [id number] [place] [address] [place] Differential cell count method Nom (Bld) Manual Normal [facility] Comment on above: Order Comment: Speci men Type: BLOOD SPECIMENOrdering Facility: [facility] Address: [address] [place] [address] Performed By: #### 5 7021-8 ####[facility] LABCLIA [id number] [place] [address] [place] Eosinophils (Bld) [#/Vol] 0.00 10*3/uL Normal <0.46 [facility] Comment on above: Order Comment: Speci men Type: BLOOD SPECIMENOrdering Facility: [facility] Address: [address] [place] [address] Performed By: #### 5 7021-8 ####[facility] LABCLIA [id number] [place] [address] [place] Eosinophils/100 WBC (Bld) 0.0 % Normal [facility] Comment on above: Order Comment: Speci men Type: BLOOD SPECIMENOrdering Facility: [facility] Address: [address] [place] [address] Performed By: #### 5 7021-8 ####[facility] LABCLIA [id number] [place] [address] [place] Erythrocyte distribution width (RBC) [Ratio] 22.7 % High 11.5-15.0 [facility] Comment on above: Order Comment: Speci men Type: BLOOD SPECIMENOrdering Facility: [facility] Address: [address] [place] [address] Performed By: #### 5 7021-8 ####[facility] LABCLIA [id number] [place] [address] [place] Hematocrit (Bld) [Volume fraction] 22.8 % Low 36.0-46.0 [facility] Comment on above: Order Comment: Speci men Type: BLOOD SPECIMENOrdering Facility: [facility] Address: [address] [place] [address] Performed By: #### 5 7021-8 ####[facility] LABCLIA [id number] [place] [address] [place] Hemoglobin (Bld) [Mass/Vol] 7.8 g/dL Low 11.5-15.5 [facility] Comment on above: Order Comment: Speci men Type: BLOOD SPECIMENOrdering Facility: [facility] Address: [address] [place] [address] Performed By: #### 5 7021-8 ####[facility] LABCLIA [id number] [place] [address] [place] Lymphocytes (Bld) [#/Vol] 2.74 10*3/uL Normal 1.00-4.00 [facility] Comment on above: Order Comment: Speci men Type: BLOOD SPECIMENOrdering Facility: [facility] Address: [address] [place] [address] Performed By: #### 5 7021-8 ####[facility] LABCLIA [id number] [place] [address] [place] Lymphocytes/100 WBC (Bld) 14.0 % Normal [facility] Comment on above: Order Comment: Speci men Type: BLOOD SPECIMENOrdering Facility: [facility] Address: [address] [place] [address] Performed By: #### 5 7021-8 ####[facility] LABCLIA [id number] [place] [address] [place] MCH (RBC) [Entitic mass] 31.7 pg Normal 26.0-34.0 [facility] Comment on above: Order Comment: Speci men Type: BLOOD SPECIMENOrdering Facility: [facility] Address: [address] [place] [address] Performed By: #### 5 7021-8 ####[facility] LABIA [id number] [place] [address] [place] MCHC (RBC) [Mass/Vol] 34.2 g/dL Normal 30.5-36.0 [facility] Comment on above: Order Comment: Speci men Type: BLOOD SPECIMENOrdering Facility: [facility] Address: [address] [place] [address] Performed By: #### 5 7021-8 ####[facility] LABCLIA [id number] [place] [address] [place] MCV (RBC) [Entitic vol] 92.7 fL Normal 80.0-100.0 [facility] Comment on above: Order Comment: Speci men Type: BLOOD SPECIMENOrdering Facility: [facility] Address: [address] [place] [address] Performed By: #### 5 7021-8 ####[facility] LABCLIA [id number] [place] [address] [place] Monocytes (Bld) [#/Vol] 0.78 10*3/uL Normal <0.87 [facility] Comment on above: Order Comment: Speci men Type: BLOOD SPECIMENOrdering Facility: [facility] Address: [address] [place] [address] Performed By: #### 5 7021-8 ####[facility] LABCLIA [id number] [place] [address] [place] Monocytes/100 WBC (Bld) 4.0 % Normal [facility] Comment on above: Order Comment: Speci men Type: BLOOD SPECIMENOrdering Facility: [facility] Address: [address] [place] [address] Performed By: #### 5 7021-8 ####[facility] LABCLIA [id number] [place] [address] [place] Neutrophils (Bld) [#/Vol] 4.31 10*3/uL Normal 1.45-7.50 [facility] Comment on above: Order Comment: Speci men Type: BLOOD SPECIMENOrdering Facility: [facility] Address: [address] [place] [address] Performed By: #### 5 7021-8 ####[facility] LABCLIA [id number] [place] [address] [place] Neutrophils/100 WBC (Bld) 22.0 % Normal [facility] Comment on above: Order Comment: Speci men Type: BLOOD SPECIMENOrdering Facility: [facility] Address: [address] [place] [address] Performed By: #### 5 7021-8 ####[facility] LABCLIA [id number] [place] [address] [place] Nucleated RBC (Bld) [#/Vol] 0.20 10*3/uL High <0.01 [facility] Comment on above: Order Comment: Speci men Type: BLOOD SPECIMENOrdering Facility: [facility] Address: [address] [place] [address] Performed By: #### 5 7021-8 ####[facility] LABCLIA [id number] [place] [address] [place] Nucleated RBC/100 WBC (Bld) [Ratio] 1.0 /100 WBC Normal [facility] Comment on above: Order Comment: Speci men Type: BLOOD SPECIMENOrdering Facility: [facility] Address: [address] [place] [address] Performed By: #### 5 7021-8 ####[facility] LABCLIA [id number] [place] [address] [place] Ovalocytes LM Ql (Bld) Few Normal [facility] Comment on above: Order Comment: Speci men Type: BLOOD SPECIMENOrdering Facility: [facility] Address: [address] [place] [address] Performed By: #### 5 7021-8 ####[facility] LABCLIA [id number] [place] [address] [place] Platelet mean volume (Bld) [Entitic vol] 10.2 fL Normal 9.0-12.7 [facility] Comment on above: Order Comment: Speci men Type: BLOOD SPECIMENOrdering Facility: [facility] Address: [address] [place] [address] Performed By: #### 5 7021-8 ####[facility] LABCLIA [id number] [place] [address] [place] Platelets (Bld) [#/Vol] 10 10*3/uL Low 150-400 [facility] Comment on above: Order Comment: Speci men Type: BLOOD SPECIMENOrdering Facility: [facility] Address: [address] [place] [address] Result Comment: Resu lts checked and verified.No clot detected. Performed By: #### 5 7021-8 ####[facility] LABCLIA [id number] [address] [address] [place] Platelets Estimate (Bld) [#/Vol] Decreased Normal [facility] Comment on above: Order Comment: Speci men Type: BLOOD SPECIMENOrdering Facility: [facility] Address: [address] [place] [address] Performed By: #### 5 7021-8 ####[facility] LABCLIA [id number] [place] [address] [place] Polychromasia LM Ql (Bld) Slight Normal [facility] Comment on above: Order Comment: Speci men Type: BLOOD SPECIMENOrdering Facility: [facility] Address: [address] [place] [address] Performed By: #### 5 7021-8 ####[facility] LABCLIA [id number] [place] [address] [place] RBC (Bld) [#/Vol] 2.46 10*6/uL Low 3.90-5.20 [facility] Comment on above: Order Comment: Speci men Type: BLOOD SPECIMENOrdering Facility: [facility] Address: [address] [place] [address] Performed By: #### 5 7021-8 ####[facility] LABIA [id number] [place] [address] [place] RED CELL MORPH Reviewed: see result s of individual morphologies Normal [facility] Comment on above: Order Comment: Speci men Type: BLOOD SPECIMENOrdering Facility: [facility] Address: [address] [place] [address] Performed By: #### 5 7021-8 ####[facility] LABCLIA [id number] [place] [address] [place] WBC (Bld) [#/Vol] 19.58 10*3/uL High 3.70-11.00 [facility] Comment on above: Order Comment: Speci men Type: BLOOD SPECIMENOrdering Facility: [facility] Address: [address] [place] [address] Result Comment: Resu lts checked and verified.No clot detected. Performed By: #### 5 7021-8 ####[facility] LABCLIA [id number] [place] [address] [place] Comprehensive metabolic 2000 panelon 09-21-2023 Albumin [Mass/Vol] 2.9 g/dL Low 3.9-4.9 [facility] Comment on above: Order Comment: Speci men Type: BLOOD SPECIMENOrdering Facility: [facility] Address: [address] [place] [address] Performed By: #### 1 9123-9, 2777-1, 3084-1, 10405-7, 14178-4 ####[facility] LABIA [id number] [place] [address] [place] ALP [Catalytic activity/Vol] 59 U/L Normal 34-123 [facility] Comment on above: Order Comment: Speci men Type: BLOOD SPECIMENOrdering Facility: [facility] Address: [address] [place] [address] Performed By: #### 1 9123-9, 2777-1, 3084-1, 87079-3, 66495-2 ####[facility] LABIA [id number] [place] [id number] [place] ALT [Catalytic activity/Vol] 14 U/L Normal 7-38 [facility] Comment on above: Order Comment: Speci men Type: BLOOD SPECIMENOrdering Facility: [facility] Address: [address] [place] [address] Performed By: #### 1 9123-9, 2777-1, 3084-1, 72133-9, 05538-6 ####[facility] LABIA [id number] [place] [id number] [place] Anion gap [Moles/Vol] 8 mmol/L Low 9-18 [facility] Comment on above: Order Comment: Speci men Type: BLOOD SPECIMENOrdering Facility: [facility] Address: [address] [place] [address] Performed By: #### 1 9123-9, 2777-1, 3084-1, 94604-5, 47777-2 ####[facility] LABCLIA [id number] [place] [address] [place] AST [Catalytic activity/Vol] 24 U/L Normal 13-35 [facility] Comment on above: Order Comment: Speci men Type: BLOOD SPECIMENOrdering Facility: [facility] Address: [address] [place] [address] Performed By: #### 1 9123-9, 2777-1, 3084-1, 27083-8, 10773-1 ####[facility] LABIA [id number] [place] [address] [place] Bilirubin [Mass/Vol] 0.4 mg/dL Normal 0.2-1.3 [facility] Comment on above: Order Comment: Speci men Type: BLOOD SPECIMENOrdering Facility: [facility] Address: [address] [place] [address] Performed By: #### 1 9123-9, 2777-1, 3084-1, 47168-6, 86465-0 ####[facility] LABCLIA [id number] [place] [address] [place] Calcium [Mass/Vol] 8.3 mg/dL Low 8.5-10.2 [facility] Comment on above: Order Comment: Speci men Type: BLOOD SPECIMENOrdering Facility: [facility] Address: [address] [place] [address] Performed By: #### 1 9123-9, 2777-1, 3084-1, 99769-2, 26821-4 ####[facility] LABCLIA [id number] [place] [address] [place] Chloride [Moles/Vol] 108 mmol/L High 97-105 [facility] Comment on above: Order Comment: Speci men Type: BLOOD SPECIMENOrdering Facility: [facility] Address: [address] [place] [address] Performed By: #### 1 9123-9, 2777-1, 3084-1, 11815-2, 44185-9 ####[facility] [id number] [place] [address] [place] CO2 [Moles/Vol] 22 mmol/L Normal 22-30 [facility] Comment on above: Order Comment: Speci men Type: BLOOD SPECIMENOrdering Facility: [facility] Address: [address] [place] [address] Performed By: #### 1 9123-9, 2777-1, 3084-1, 13491-0, 27012-2 ####[facility] [id number] [place] [address] [place] Creatinine [Mass/Vol] 0.58 mg/dL Normal 0.58-0.96 [facility] Comment on above: Order Comment: Speci men Type: BLOOD SPECIMENOrdering Facility: [facility] Address: [address] [place] [address] Performed By: #### 1 9123-9, 2777-1, 3084-1, 42056-6, 98360-2 ####[facility] [id number] [place] [id number] [place] Creatinine and Glomerular filtration rate.predicted panel (S/P/Bld) 91 mL/min/1.73m??? Normal >=60 [facility] Comment on above: Order Comment: Speci men Type: BLOOD SPECIMENOrdering Facility: [facility] Address: [address] [place] [address] Result Comment: Akiko mated Glomerular Filtration Rate [...] Performed By: #### 1 9123-9, 2777-1, 3084-1, 73089-9, 24982-2 ####[facility] LABCLIA [id number] [address] [address] [place] Glucose [Mass/Vol] 95 mg/dL Normal 74-99 [facility] Comment on above: Order Comment: Qi reynolds Type: BLOOD SPECIMENOrdering Facility: [facility] Address: [address] [place] [address] Result Comment: The [place] [employer] (ADA) provides guidance for cutoff [...] Standards of Medical Care in Diabetes 2016, [place] [employer]. Diabetes Care. 2016.39(Suppl 1). Performed By: #### 1 9123-9, 2777-1, 3084-1, 45978-1, 07739-4 ####[facility] LABIA [id number] [address] [address] [place] Potassium [Moles/Vol] 3.5 mmol/L Low 3.7-5.1 [facility] Comment on above: Order Comment: Qi reynolds Type: BLOOD SPECIMENOrdering Facility: [facility] Address: [address] [place] [address] Performed By: #### 1 9123-9, 2777-1, 3084-1, 34390-9, 39118-9 ####[facility] LABCLIA [id number] [place] [id number] [place] Protein [Mass/Vol] 5.0 g/dL Low 6.3-8.0 [facility] Comment on above: Order Comment: Speci men Type: BLOOD SPECIMENOrdering Facility: [facility] Address: [address] [place] [address] Performed By: #### 1 9123-9, 2777-1, 3084-1, 68163-8, 04415-4 ####[facility] LABIA [id number] [place] [address] [place] Sodium [Moles/Vol] 138 mmol/L Normal 136-144 [facility] Comment on above: Order Comment: Speci men Type: BLOOD SPECIMENOrdering Facility: [facility] Address: [address] [place] [address] Performed By: #### 1 9123-9, 2777-1, 3084-1, 13315-3, 24787-2 ####[facility] LABIA [id number] [place] [address] [place] Urea nitrogen [Mass/Vol] 6 mg/dL Low 7-21 [facility] Comment on above: Order Comment: Speci men Type: BLOOD SPECIMENOrdering Facility: [facility] Address: [address] [place] [address] Performed By: #### 1 9123-9, 2777-1, 3084-1, 04610-9, 36206-4 ####[facility] LABIA [id number] [place] [id number] [place] Fibrinogen PPP-mCncon 2023 Fibrinogen Coag (PPP) [Mass/Vol] 498 mg/dL High 200-400 [facility] Comment on above: Order Comment: Speci men Type: BLOOD SPECIMENOrdering Facility: [facility] Address: [address] [place] [address] Result Comment: No c lot detected.Checked and Verified\X09\ Performed By: #### 3 255-7, 05207-7, 86261-7 ####[facility] LABCLIA [id number] [place] [address] [place] [facility] Magnesium [Mass/Vol] 1.9 mg/dL Normal 1.7-2.3 [facility] Comment on above: Order Comment: Speci men Type: BLOOD SPECIMENOrdering Facility: [facility] Address: [address] [place] [address] Performed By: #### 1 9123-9, 2777-1, 3084-1, 00687-1, 53036-3 ####[facility] LABIA [id number] [place] [address] [place] NT-proBNP [facility] 09-20 Natriuretic peptide.B prohormone N-Terminal [Mass/Vol] 3228 pg/mL High <450 [facility] Comment on above: Order Comment: Speci men Type: BLOOD SPECIMENOrdering Facility: [facility] Address: [address] [place] [address] Performed By: #### 1 9123-9, 2777-1, 3084-1, 68413-0, 51622-6 ####[facility] LABIA [id number] [place] [id number] [place] [place]AR[place] NUTRITIONon 09-21-2023 NUTRITION Normal [facility] Outside Hospital Correspo ndenceon 09-21-2023 Outside Hospital Correspondence [id number] Normal [facility] PT panel Coag (PPP)on 2023 INR Coag (PPP) [Relative time] 1.3 {INR} Normal 0.9-1.3 [facility] Comment on above: Order Comment: Speci men Type: BLOOD SPECIMENOrdering Facility: [facility] Address: [address] [place] [address] Result Comment: Clementine min K Antagonist (VKA) Therapeutic Range: INR 2 to 3 (Target INR of 2.5)Note: For patients treated with VKA drugs, such as warfarin, the [employer] 2012 Guideline recommends [...] al. Chest 2012, 141:7S-47SNishimaspen RA, et al. [facility] 2017, 70: 252-289 Performed By: #### 3 255-7, 38112-7, 44346-4 ####[facility] [id number] [place] [address] [place] PT Coag (PPP) [Time] 14.0 s High 9.7-13.0 [facility] Comment on above: Order Comment: Qi reynolds Type: BLOOD SPECIMENOrdering Facility: [facility] Address: [address] [place] [address] Performed By: #### 3 255-7, 24485-7, 64820-9 ####[facility] [id number] [place] [address] [place] Phosphate SerPl-mCncon 09-20 Phosphate [Mass/Vol] 3.2 mg/dL Normal 2.7-4.8 [facility] Comment on above: Order Comment: Qi reynolds Type: BLOOD SPECIMENOrdering Facility: [facility] Address: [address] [place] [address] Performed By: #### 1 9123-9, 2777-1, 3084-1, 59530-7, 80488-9 ####[facility] LABCLIA [id number] [place] [address] [place] Urate SerPl-mCncon Urate [Mass/Vol] 2.6 mg/dL Normal 2.5-6.6 [facility] Comment on above: Order Comment: Speci men Type: BLOOD SPECIMENOrdering Facility: [facility] Address: [address] [place] [address] Performed By: #### 1 9123-9, 2777-1, 3084-1, 77924-7, 19708-9 ####[facility] LABCLIA [id number] [address] [place] aPTT PPPon 09-21-2023 aPTT Coag (PPP) [Time] 37.5 s High 23.0-32.4 [facility] Comment on above: Order Comment: Speci men Type: BLOOD SPECIMENOrdering Facility: [facility] Address: [address] [place] [address] Performed By: #### 3 255-7, 72123-8, 72108-3 ####[facility] [id number] [address] [place] ACUTE LEUKEMIA NGS PANEL, BL OODon 09-20-2023 ACUTE LEUK NGS PANEL, BLOOD Normal [facility] Comment on above: Order Comment: Speci men Type: BLOOD SPECIMENOrdering Facility: [facility] Address: [address] [place] [address] Result Comment: Acut e Leukemia NGS Panel, BloodLaboratory Accession Number: [id number]:Please see linked document and/or separate report for full result whenavailable.As reviewed by Byron Ingram MD Performed By: #### H DPNGS, F3IP ####[facility] LIMSCLIA [id number] [address] OF [place] BLOOD BANK PLACEHOLDER, ANTI BODY INTERPRETATIONon 09-20-2023 BLOOD BANK REPORT, ANTIBODY INTERPRETATION See Pathology Report Normal [facility] Comment on above: Order Comment: Speci men Type: BLOOD SPECIMENOrdering Facility: [facility] Address: [address] [place] [address] Performed By: #### CARLY CASASR ####[facility] BLOOD BANKIA [id number] [address]#### BBRABI ####[facility] LABIA [id number] [address] BLOOD BANK REPORT, ANTIBODY INTERPRETATIONon 09-20-2023 PATHOLOGY INTERPRETATION Normal [facility] Comment on above: Order Comment: Speci men Type: BLOOD SPECIMENOrdering Facility: [facility] Address: [address] [place] [address] Result Comment: No c linically significant common [...] testing. Performed By: #### ELISA CASAS ####[facility] BLOOD BANKIA [id number] [address] [place]#### BBRABI ####[facility] LABN[facility]AST[facility] [id number] [address] [place] BMT REC INIT W/Uon 4 ALLOGEN RESULTS TO FOLLOW See Allogen report to follow Normal [facility] Comment on above: Order Comment: Speci men Type: BLOOD SPECIMENOrdering Facility: [facility] Address: [address] [place] [address] Performed By: #### B MTRIW ####[facility]OR[facility]IESCLIA [id number] [place] [address] [place] CASE MGT INIT ASSESon 2023 CASE MGT INIT ASSES Normal [facility] CBC W Auto Differential pane l (Bld)on 09-20-2023 Anisocytosis Ql (Bld) Present Normal [facility] Comment on above: Order Comment: Speci men Type: BLOOD SPECIMENOrdering Facility: [facility] Address: [address] [place] [address] Performed By: #### 5 7021-8, [id number], 00803-5 ####[facility] LABCLIA [id number] [place] [address] [place] Basophils (Bld) [#/Vol] 0.23 10*3/uL High <0.11 [facility] Comment on above: Order Comment: Speci men Type: BLOOD SPECIMENOrdering Facility: [facility] Address: [address] [place] [address] Performed By: #### 5 7021-8, [id number], 13448-6 ####[facility] LABCLIA [id number] [place] [address] [place] Basophils/100 WBC (Bld) 1.0 % Normal [facility] Comment on above: Order Comment: Speci men Type: BLOOD SPECIMENOrdering Facility: [facility] Address: [address] [place] [address] Performed By: #### 5 7021-8, [id number], 57760-3 ####[facility] LABCLIA [id number] [place] [address] [place] BLAST% 74.0 % High <=0.0 [facility] Comment on above: Order Comment: Speci men Type: BLOOD SPECIMENOrdering Facility: [facility] Address: [address] [place] [address] Performed By: #### 5 7021-8, [id number], 29468-5 ####[facility] LABCLIA [id number] [place] [address] [place] Differential cell count method Nom (Bld) Manual Normal [facility] Comment on above: Order Comment: Speci men Type: BLOOD SPECIMENOrdering Facility: [facility] Address: [address] [place] [address] Performed By: #### 5 7021-8, [id number], 88351-7 ####[facility] LABCLIA [id number] [place] [address] [place] Eosinophils (Bld) [#/Vol] 0.00 10*3/uL Normal <0.46 [facility] Comment on above: Order Comment: Speci men Type: BLOOD SPECIMENOrdering Facility: [facility] Address: [address] [place] [address] Performed By: #### 5 7021-8, [id number], 84124-2 ####[facility] LABCLIA [id number] [place] [address] [place] Eosinophils/100 WBC (Bld) 0.0 % Normal [facility] Comment on above: Order Comment: Speci men Type: BLOOD SPECIMENOrdering Facility: [facility] Address: [address] [place] [address] Performed By: #### 5 7021-8, [id number], 04694-0 ####[facility] LABCLIA [id number] [place] [address] [place] Erythrocyte distribution width (RBC) [Ratio] 23.9 % High 11.5-15.0 [facility] Comment on above: Order Comment: Speci men Type: BLOOD SPECIMENOrdering Facility: [facility] Address: [address] [place] [address] Performed By: #### 5 7021-8, [id number], 02150-7 ####[facility] LABCLIA [id number] [address] [address] [place] Hematocrit (Bld) [Volume fraction] 23.5 % Low 36.0-46.0 [facility] Comment on above: Order Comment: Speci men Type: BLOOD SPECIMENOrdering Facility: [facility] Address: [address] [place] [address] Performed By: #### 5 7021-8, [id number], 78850-7 ####[facility] LABCLIA [id number] [place] [address] [place] Hemoglobin (Bld) [Mass/Vol] 8.0 g/dL Low 11.5-15.5 [facility] Comment on above: Order Comment: Speci men Type: BLOOD SPECIMENOrdering Facility: [facility] Address: [address] [place] [address] Performed By: #### 5 7021-8, [id number], 17839-7 ####[facility] LABCLIA [id number] [place] [address] [place] Lymphocytes (Bld) [#/Vol] 2.48 10*3/uL Normal 1.00-4.00 [facility] Comment on above: Order Comment: Speci men Type: BLOOD SPECIMENOrdering Facility: [facility] Address: [address] [place] [address] Performed By: #### 5 7021-8, [id number], 81280-8 ####[facility] LABCLIA [id number] [place] [address] [place] Lymphocytes/100 WBC (Bld) 11.0 % Normal [facility] Comment on above: Order Comment: Speci men Type: BLOOD SPECIMENOrdering Facility: [facility] Address: [address] [place] [address] Performed By: #### 5 7021-8, [id number], 96022-7 ####[facility] LABCLIA [id number] [place] [address] [place] MCH (RBC) [Entitic mass] 31.4 pg Normal 26.0-34.0 [facility] Comment on above: Order Comment: Speci men Type: BLOOD SPECIMENOrdering Facility: [facility] Address: [address] [place] [address] Performed By: #### 5 7021-8, [id number], 03020-7 ####[facility] LABCLIA [id number] [place] [address] [place] MCHC (RBC) [Mass/Vol] 34.0 g/dL Normal 30.5-36.0 [facility] Comment on above: Order Comment: Speci men Type: BLOOD SPECIMENOrdering Facility: [facility] Address: [address] [place] [address] Performed By: #### 5 7021-8, [id number], 17455-0 ####[facility] LABCLIA [id number] [place] [address] [place] MCV (RBC) [Entitic vol] 92.2 fL Normal 80.0-100.0 [facility] Comment on above: Order Comment: Speci men Type: BLOOD SPECIMENOrdering Facility: [facility] Address: [address] [place] [address] Performed By: #### 5 7021-8, [id number], 60002-2 ####[facility] LABCLIA [id number] [place] [address] [place] Monocytes (Bld) [#/Vol] 0.00 10*3/uL Normal <0.87 [facility] Comment on above: Order Comment: Speci men Type: BLOOD SPECIMENOrdering Facility: [facility] Address: [address] [place] [address] Performed By: #### 5 7021-8, [id number], 12803-7 ####[facility] LABCLIA [id number] [place] [address] [place] Monocytes/100 WBC (Bld) 0.0 % Normal [facility] Comment on above: Order Comment: Speci men Type: BLOOD SPECIMENOrdering Facility: [facility] Address: [address] [place] [address] Performed By: #### 5 7021-8, [id number], 92605-7 ####[facility] LABCLIA [id number] [place] [address] [place] Neutrophils (Bld) [#/Vol] 3.16 10*3/uL Normal 1.45-7.50 [facility] Comment on above: Order Comment: Speci men Type: BLOOD SPECIMENOrdering Facility: [facility] Address: [address] [place] [address] Performed By: #### 5 7021-8, [id number], 91341-1 ####[facility] LABCLIA [id number] [place] [address] [place] Neutrophils/100 WBC (Bld) 14.0 % Normal [facility] Comment on above: Order Comment: Speci men Type: BLOOD SPECIMENOrdering Facility: [facility] Address: [address] [place] [address] Performed By: #### 5 7021-8, [id number], 19127-7 ####[facility] LABCLIA [id number] [place] [address] [place] Nucleated RBC (Bld) [#/Vol] 10*3/uL Normal <0.01 [facility] Comment on above: Order Comment: Speci men Type: BLOOD SPECIMENOrdering Facility: [facility] Address: [address] [place] [address] Performed By: #### 5 7021-8, [id number], 53879-5 ####[facility] LABCLIA [id number] [place] [address] [place] Nucleated RBC/100 WBC (Bld) [Ratio] 0.0 /100 WBC Normal [facility] Comment on above: Order Comment: Speci men Type: BLOOD SPECIMENOrdering Facility: [facility] Address: [address] [place] [address] Performed By: #### 5 7021-8, [id number], 14807-3 ####[facility] LABCLIA [id number] [place] [address] [place] Ovalocytes LM Ql (Bld) Few Normal [facility] Comment on above: Order Comment: Speci men Type: BLOOD SPECIMENOrdering Facility: [facility] Address: [address] [place] [address] Performed By: #### 5 7021-8, [id number], 38040-2 ####[facility] LABCLIA [id number] [place] [address] [place] Platelet mean volume (Bld) [Entitic vol] Normal [facility] Comment on above: Order Comment: Speci men Type: BLOOD SPECIMENOrdering Facility: [facility] Address: [address] [place] [address] Result Comment: Unab le to Report. Performed By: #### 5 7021-8, [id number], 65015-1 ####[facility] LABCLIA [id number] [place] [address] [place] Platelets (Bld) [#/Vol] 14 10*3/uL Low 150-400 [facility] Comment on above: Order Comment: Speci men Type: BLOOD SPECIMENOrdering Facility: [facility] Address: [address] [place] [address] Result Comment: No c lot detected.Results checked and verified. Performed By: #### 5 7021-8, [id number], 53356-5 ####[facility] LABCLIA [id number] [place] [address] [place] Platelets Estimate (Bld) [#/Vol] Decreased Normal [facility] Comment on above: Order Comment: Speci men Type: BLOOD SPECIMENOrdering Facility: [facility] Address: [address] [place] [address] Performed By: #### 5 7021-8, [id number], 11337-1 ####[facility] LABCLIA [id number] [place] [address] [place] RBC (Bld) [#/Vol] 2.55 10*6/uL Low 3.90-5.20 [facility] Comment on above: Order Comment: Speci men Type: BLOOD SPECIMENOrdering Facility: [facility] Address: [address] [place] [address] Performed By: #### 5 7021-8, [id number], 53386-2 ####[facility] LABCLIA [id number] [address] STATES [facility] RED CELL MORPH Reviewed: see result s of individual morphologies Normal [facility] Comment on above: Order Comment: Speci men Type: BLOOD SPECIMENOrdering Facility: [facility] Address: [address] [place] [address] Performed By: #### 5 7021-8, [id number], 82690-4 ####[facility] LABCLIA [id number] [place] [address] [place] WBC (Bld) [#/Vol] 22.55 10*3/uL High 3.70-11.00 [facility] Comment on above: Order Comment: Speci men Type: BLOOD SPECIMENOrdering Facility: [facility] Address: [address] [place] [address] Result Comment: No c lot detected.Results checked and verified. 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 The complexity of the karyotype, including monosomy 7 andt(3;3) are unfavorable prognostic features., and adding tyrosinekinase inhibitor therapy may be of benefit.Clinical and pathologic correlation is recommended.As reviewed by Monty Andrade MDPerformed by Trinity Health SystemPathology and Laboratory Medicine InstituteDivision of Molecular PathologyCytogenetics Lab, [id number] [place], [place] [address]Phone: Toll free: Performed By: #### C HRBLL ####[facility] I[facility] LIMSCA [id number] [address] [place] CNPNon 09-20-2023 CNPN Normal [facility] CONFIRM BLOOD TYPEon 024 ABO B Normal [facility] Comment on above: Order Comment: Speci men Type: BLOOD SPECIMENOrdering Facility: [facility] Address: [address] [place] [address] Performed By: #### C ONABO ####[facility] BLOOD BANKIA [id number] [place] [address] [place] Rh Nom (Bld) Positive Normal [facility] Comment on above: Order Comment: Speci men Type: BLOOD SPECIMENOrdering Facility: [facility] Address: [address] [place] [address] Performed By: #### C ONABO ####[facility] BLOOD BANKIA [id number] [place] [address] [place] Comprehensive metabolic 2000 panelon 09-20-2023 Albumin [Mass/Vol] 3.1 g/dL Low 3.9-4.9 [facility] Comment on above: Order Comment: Speci men Type: BLOOD SPECIMENOrdering Facility: [facility] Address: [address] [place] [address] Performed By: #### 2 4323-8, 80557-0, 2776-, 3083- ####[facility] LABCLIA [id number] [address] [address] [place] ALP [Catalytic activity/Vol] 59 U/L Normal 34-123 [facility] Comment on above: Order Comment: Speci men Type: BLOOD SPECIMENOrdering Facility: [facility] Address: [address] [place] [address] Performed By: #### 2 432-8, 48565-4, 2776-, 3083- ####[facility] LABCLIA [id number] [place] [address] [place] ALT [Catalytic activity/Vol] 15 U/L Normal 7-38 [facility] Comment on above: Order Comment: Speci men Type: BLOOD SPECIMENOrdering Facility: [facility] Address: [address] [place] [address] Performed By: #### 2 432-8, , 2776-, 308- ####[facility] LABCLIA [id number] [place] [address] [place] Anion gap [Moles/Vol] 11 mmol/L Normal 9-18 [facility] Comment on above: Order Comment: Speci men Type: BLOOD SPECIMENOrdering Facility: [facility] Address: [address] [place] [address] Performed By: #### 2 4323-8, 18667-2, 2776-07, 308- ####[facility] LABCLIA [id number] [address] [address] [place] AST [Catalytic activity/Vol] 31 U/L Normal 13-35 [facility] Comment on above: Order Comment: Speci men Type: BLOOD SPECIMENOrdering Facility: [facility] Address: [address] [place] [address] Performed By: #### 2 4323-8, 19993-9, 2776-, 3083-07 ####[facility] LABCLIA [id number] [address] [address] [place] Bilirubin [Mass/Vol] 0.4 mg/dL Normal 0.2-1.3 [facility] Comment on above: Order Comment: Speci men Type: BLOOD SPECIMENOrdering Facility: [facility] Address: [address] [place] [address] Performed By: #### 2 4323-8, 79415-8, 2776-07, 3083-07 ####[facility] LABCLIA [id number] [place] [address] [place] Calcium [Mass/Vol] 8.1 mg/dL Low 8.5-10.2 [facility] Comment on above: Order Comment: Speci men Type: BLOOD SPECIMENOrdering Facility: [facility] Address: [address] [place] [address] Performed By: #### 2 4323-8, 30312-4, 2776-07, 3083-07 ####[facility] LABIA [id number] [place] [address] [place] Chloride [Moles/Vol] 107 mmol/L High 97-105 [facility] Comment on above: Order Comment: Speci men Type: BLOOD SPECIMENOrdering Facility: [facility] Address: [address] [place] [address] Performed By: #### 2 4323-8, 65720-6, 2776-07, 3083-07 ####[facility] LABCLIA [id number] [address] [address] [place] CO2 [Moles/Vol] 21 mmol/L Low 22-30 [facility] Comment on above: Order Comment: Speci men Type: BLOOD SPECIMENOrdering Facility: [facility] Address: [address] [place] [address] Performed By: #### 2 4323-8, 66611-2, 2776-07, 3083- ####[facility] LABCLIA [id number] [address] [address] [place] Creatinine [Mass/Vol] 0.60 mg/dL Normal 0.58-0.96 [facility] Comment on above: Order Comment: Qi reynolds Type: BLOOD SPECIMENOrdering Facility: [facility] Address: [address] [place] [address] Performed By: #### 2 4323-8, 74581-8, 2776-, 3083- ####[facility] LABCLIA [id number] [place] [address] [place] Creatinine and Glomerular filtration rate.predicted panel (S/P/Bld) 90 mL/min/1.73m??? Normal >=60 [facility] Comment on above: Order Comment: Qi reynolds Type: BLOOD SPECIMENOrdering Facility: [facility] Address: [address] [place] [address] Result Comment: Akiko mated Glomerular Filtration Rate [...] actual GFR. Performed By: #### 2 4323-8, 43687-7, 2776-07, 3083-07 ####[facility] LABCLIA [id number] [address] [address] [place] Glucose [Mass/Vol] 92 mg/dL Normal 74-99 [facility] Comment on above: Order Comment: Qi reynolds Type: BLOOD SPECIMENOrdering Facility: [facility] Address: [address] [place] [address] Result Comment: The [place] [employer] (ADA) provides guidance for cutoff [...] Standards of Medical Care in Diabetes 2016, [place] [employer]. Diabetes Care. 2016.39(Suppl 1). Performed By: #### 2 4323-8, 56734-4, 2776-, 3083- ####[facility] LABIA [id number] [address] [address] [place] Potassium [Moles/Vol] 3.9 mmol/L Normal 3.7-5.1 [facility] Comment on above: Order Comment: Qi reynolds Type: BLOOD SPECIMENOrdering Facility: [facility] Address: [address] [place] [address] Performed By: #### 2 4323-8, 05731-4, 2776-07, 3083-07 ####[facility] [id number] [place] [id number] [place] Protein [Mass/Vol] 5.4 g/dL Low 6.3-8.0 [facility] Comment on above: Order Comment: Qi reynolds Type: BLOOD SPECIMENOrdering Facility: [facility] Address: [address] [place], [place] [address] Performed By: #### 2 4323-8, 46040-4, 2776-07, 3083-07 ####[facility] [id number] [address] [address] [place] Sodium [Moles/Vol] 139 mmol/L Normal 136-144 [facility] Comment on above: Order Comment: Nikkii men Type: BLOOD SPECIMENOrdering Facility: [facility] Address: [address] [place] [address] Performed By: #### 2 4323-8, 94287-8, 2777-1, 3084-1 ####[facility] LABCLIA [id number] [place] [address] [place] Urea nitrogen [Mass/Vol] 8 mg/dL Normal 7-21 [facility] Comment on above: Order Comment: Qi reynolds Type: BLOOD SPECIMENOrdering Facility: [facility] Address: [address] [place] [address] Performed By: #### 2 4323-8, 93041-6, 2777-1, 3084-1 ####[facility] LABIA [id number] [place] [address] [place] ECG COMPLETEon 09-20-2023 ECG COMPLETE Normal [facility] FLOW CYTOMETRY FOR LEUKEMIA/ LYMPHOMA (FCLL) PERFORMABLEon 09-20-2023 FLOW CYTOMETRY ORDER STATUS See Results in chart under F case ID Normal [facility] Comment on above: Order Comment: Qi reynolds Type: BLOOD SPECIMENOrdering Facility: [facility] Address: [address] [place] [address] Performed By: #### F CLLP, FCLLRFLX ####[facility] LABIA [id number] [place] [address] [place] FLOW CYTOMETRY FOR LEUKEMIA/ LYMPHOMA (FCLL) REFLEXon 09-20-2023 DIAGNOSIS COMMENT Normal [facility] Comment on above: Order Comment: Qi reynolds Type: BLOOD SPECIMENOrdering Facility: [facility] Address: [address] [place] [address] Result Comment: This test was developed and its performance characteristics determined by [facility]'s Enoc JNelida [facility] [place] ([facility]). It has not been cleared or approved by the FDA. [facility] is regulated under CLIA as qualified to perform high-complexity testing. This test is used for clinical purposes. It should not be regarded as investigational or for research. Performed By: #### F CLLP, FCLLRFLX ####[facility] LABCLIA [id number] [address] [place] FINAL PERFORMING LAB Normal [facility] Comment on above: Order Comment: Speci men Type: BLOOD SPECIMENOrdering Facility: [facility] Address: [address] [place] [address] Result Comment: Diag nostic interpretation performed at [facility], [facility] [place] [address] CLIA# [id number] Director: Jordan García M.D. Performed By: #### F CLLP, FCLLRFLX ####[facility] LABCLIA [id number] [address] STATES [facility] FLOW CYTOMETRY RESULTS Normal [facility] Comment on above: Order Comment: Speci men Type: BLOOD SPECIMENOrdering Facility: [facility] Address: [address] [place] [address] Result Comment: Spec imen type: Peripheral bloodCBC [...] NegativeCD5 T-cells NegativeCD7 T/NK-cells PositiveCD8 T-cell subset OoupdxztGL47 B-cell subset RkjssrdhQP70b Myeloid TcfupswpRR21 Myeloid Positive (subset)CD14 Monocytes XqplhidhZE70 Myeloid PvuuegtsDM65 B-cells TwhwjgqnNK26 B-cells KpnqmbnqYH64 B-cells LxjnnmotMZ94 Myeloid Positive (minor subset)CD34 Blasts Positive (subset)CD38 Activation XmmpcoaxEK59 Can-leukocyte Positive (dim)CD56 T/NK-cells DlcxnaqiRK85 Myeloid HyqsvikzSK93 Myeloid GcluzvjhSD660 Blasts Positive (subset)HLA-DR B-cells Positive (subset)MPO MarkersMarker Normal Cell Type Result (Blasts)cCD3 T-cells VynkpjcxhLD97 B-cells NegativeMPO Grans NegativeFlow cytometric analysis of [...] (8%). Performed By: #### F CLLJAMES GraceRFLX ####[facility] LABCLIA [id number] [place] [address] [place] GROSS DESCRIPTION A. BLOOD Normal [facility] Comment on above: Order Comment: Specterrell reynolds Type: BLOOD SPECIMENOrdering Facility: [facility] Address: [address] [place] [address] Result Comment: RECE IVED 3 ML OF PERIPHERAL BLOOD IN EDTA Performed By: #### F DEBORAH ACEX ####[facility] LABCLIA [id number] [place] [address] [place] INTERPRETATION Normal [facility] Comment on above: Order Comment: Qi reynolds Type: BLOOD SPECIMENOrdering Facility: [facility] Address: [address] [place] [address] Result Comment: Thes e findings are consistent with involvement by an acute myeloid leukemia.Correlation with the clinical findings is suggested.MON/NB 09/20/2023 Performed By: #### F CLLP FCLLRFLX ####[facility] LABCLIA [id number] [place] [address] [place] FLT3 ITD HN PANEL BLOODon CLARITY SIGNOUT PATHOLOGIST [id number] Normal [facility] Comment on above: Order Comment: Speci men Type: BLOOD SPECIMENOrdering Facility: [facility] Address: [address] [place] [address] Performed By: #### H DPNGS, F3IP ####[facility] LIMSCLIA [id number] [address] [place] FLT3 ITD HN PANEL BLOOD Normal [facility] Comment on above: Order Comment: Speci men Type: BLOOD SPECIMENOrdering Facility: [facility] Address: [address] [place] [address] Result Comment: FLT3 Internal Tandem Duplication (ITD) Mutation TestingLaboratory Accession Number: [id number] Internal Tandem Duplication (ITD) mutation: Not DetectedComment:FLT3/ITD [...] from the specimen provided. Regions of the AYT5iwpllwyx kinase receptor gene are subjected to the [...] was developed and its performance characteristics determinedby [facility]'s [facility] [place] ([facility]). It has not been cleared or approved bythe FDA. -[facility] is regulated under CLIA as certified to perform high-complexity testing. This test is used for clinical purposes. It shouldnot be regarded as investigational or for research.Testing and interpretation performed at [facility], [address] [place] [address]. CLIA Number: [id number] reviewed by Maria A Doyle, PhD, [facility] Performed By: #### H DPNGS, F3IP ####[facility] LIMSCLIA [id number] [place] [address] [place] [facility]in[facility] Fibrinogen Coag (PPP) [Mass/Vol] 476 mg/dL High 200-400 [facility] Comment on above: Order Comment: Speci men Type: BLOOD SPECIMENOrdering Facility: [facility] Address: [address] [place] [address] Result Comment: Maya queen checked for clot.Result rechecked. Performed By: #### 3 255-7, 19944-6, 09470-2 ####[facility] LABCLIA [id number] [place] [address] [place] HBV core Ab Ser Qlon 024 HBV core Ab Ql (S) Negative Normal Negative [facility] Comment on above: Order Comment: Speci men Type: BLOOD SPECIMENOrdering Facility: [facility] Address: [address] [place] [address] Result Comment: No e vidence of current or past infection with Hepatitis B virus. Should recent infection be suspected, repeat testing may be considered 3-4 weeks after this draw. Performed By: #### 1 6933-4, 5195-3, 48511-3, 55383-3 ####[facility] LABCLIA [id number] [place] [address] [place] HBV surface Ab Ql (S)on HBV surface Ab Qn (S) <8.00 Normal [facility] Comment on above: Order Comment: Speci men Type: BLOOD SPECIMENOrdering Facility: [facility] Address: [address] [place] [address] Result Comment: <8 m IU/mL: No serological evidence of immunity to Hepatitis B Virus.>/= 8 to <12 mIU/mL: No serological evidence of immunity to Hepatitis B Virus.>/= 12 mIU/mL: Consistent with serological evidence of immunity to Hepatitis B Virus. Performed By: #### 1 6933-4, 5195-3, 96843-6, 64811-4 ####[facility] LABCLIA [id number] [place] [address] [place] HBV surface Ab Ser Qlon HBV surface Ab Ql (S) Negative Normal [facility] Comment on above: Order Comment: Speci men Type: BLOOD SPECIMENOrdering Facility: [facility] Address: [address] [place] [address] Result Comment: No s erological evidence of immunity to Hepatitis B Virus. Performed By: #### 1 6933-4, 5195-3, 96769-5, 76300-7 ####[facility] LABCLIA [id number] [place] [address] [place] HBV surface Ag Ser Qlon 03-0 HBV surface Ag Ql (S) Negative Normal Negative [facility] Comment on above: Order Comment: Speci men Type: BLOOD SPECIMENOrdering Facility: [facility] Address: [address] [place] [address] Performed By: #### 1 6933-4, 5195-3, 01483-7, 48761-0 ####[facility] LABIA [id number] [place] [address] [place] HCV Ab Ser Qlon 09-20-2023 HCV Ab Ql (S) Negative Normal Negative [facility] Comment on above: Order Comment: Speci men Type: BLOOD SPECIMENOrdering Facility: [facility] Address: [address] [place] [address] Result Comment: The result suggests no evidence of active infection with Hepatitis C virus. Should recent infection be suspected, repeat testing may be considered 4-6 weeks after this draw. Performed By: #### 1 6128-1 ####[facility] LABIA [id number] [place] [address] [place] HISTORY PHYSICALon 4 HISTORY PHYSICAL Normal [facility] HIV 1+2 Ab IA Qlon 4 HIV 1 and 2 Ab IA.rapid Nom (S/P/Bld) Normal [facility] Comment on above: Order Comment: Speci men Type: BLOOD SPECIMENOrdering Facility: [facility] Address: [address] [place] [address] Result Comment: Test not indicated. Performed By: #### 1 6933-4, 5195-3, 77663-9, 18799-9 ####[facility] LABIA [id number] [place] [address] [place] HIV 1+2 Ab+HIV1 p24 Ag IA Ql Non-Reactive Normal Nonreactive [facility] Comment on above: Order Comment: Speci men Type: BLOOD SPECIMENOrdering Facility: [facility] Address: [address] [place] [address] Performed By: #### 1 6933-4, 5195-3, 75357-8, 00235-4 ####[facility] LABIA [id number] [place] [address] [place] HIV immunoassay testing algorithm interpretation (S/P/Bld) [Interp] Normal [facility] Comment on above: Order Comment: Speci men Type: BLOOD SPECIMENOrdering Facility: [facility] Address: [address] [place] [address] Result Comment: No e vidence of HIV-1 or HIV-2 infection. Should recent infection be suspected, repeat testing may be considered 2-3 weeks after this draw.[place] Rev. Code 3701.243(E): This information has been [...] diagnoses. Performed By: #### 1 6933-4, 5195-3, 54148-0, 04589-9 ####[facility] LABIA [id number] [place] [address] [place] HbA1c (Bld)on 09-20-2023 Average glucose Estimated from glycated hemoglobin (Bld) [Mass/Vol] 103 mg/dL Normal [facility] Comment on above: Order Comment: Speci men Type: BLOOD SPECIMENOrdering Facility: [facility] Address: [address] [place] [address] Result Comment: eAG: (Estimated average glucose) is a calculated value from HgbA1c and is service liaison representative of the average blood glucose level in the last 2-3 month period. Performed By: #### 5 7021-8, VJK0265, 48461-9 ####[facility] LABIA [id number] [place] [address] [place] HbA1c (Bld) [Mass fraction] 5.2 % Normal 4.3-5.6 [facility] Comment on above: Order Comment: Qi reynolds Type: BLOOD SPECIMENOrdering Facility: [facility] Address: [address] [place] [address] Result Comment: [place] Diabetes Association guidelines indicate that patients with HgbA1c in the range 5.7-6.4% are at increased risk for development of diabetes, and intervention by lifestyle modification may be beneficial. HgbA1c greater or equal to 6.5% is considered diagnostic of diabetes. Performed By: #### 5 7021-8, INH4296, 08300-5 ####[facility] LABCLIA [id number] [place] [address] [place] LDH SerPl-cCncon 09-20-2023 LDH [Catalytic activity/Vol] 1496 U/L High 135-214 [facility] Comment on above: Order Comment: Qi reynolds Type: BLOOD SPECIMENOrdering Facility: [facility] Address: [address] [place] [address] Performed By: #### 2 532-0 ####[facility] LABCLIA [id number] [place] [address] [place] Magnesium SerPl-mCncon 09-19 Magnesium [Mass/Vol] 1.8 mg/dL Normal 1.7-2.3 [facility] Comment on above: Order Comment: Qi reynolds Type: BLOOD SPECIMENOrdering Facility: [facility] Address: [address] [place] [address] Performed By: #### 2 4323-8, 49943-0, 2777-1, 3084-1 ####[facility] LABCLIA [id number] [place] [address] [place] PATH INTERP CBCDIF (LAB REFL EX ORDER-NO BILL)on 09-20-2023 Head Waiter/Waitress review Vish (Unsp spec) [Interp] Reviewed by Delilah Frost MD [facility] Comment on above: Order Comment: Qi reynolds Type: BLOOD SPECIMENOrdering Facility: [facility] Address: [address] [place] [address] Performed By: #### 5 7021-8, MJN7802, 23730-9 ####[facility] LABCLIA [id number] [address] [place] STAFF REVIEW, CBCDIF Normal [facility] Comment on above: Order Comment: Qi reynolds Type: BLOOD SPECIMENOrdering Facility: [facility] Address: [address] [place] [address] Result Comment: Cons istent with acute leukemia. Recommend correlation with bone marrow and flow cytometry results.Microcytic anemia suggestive of iron deficiency or anemia of chronic diseaseThrombocytopenia Performed By: #### 5 7021-8, OLQ8539, 94507-6 ####[facility] LABCLIA [id number] [address] [place] PT panel Coag (PPP)on 2023 INR Coag (PPP) [Relative time] 1.4 {INR} High 0.9-1.3 [facility] Comment on above: Order Comment: Qi reynolds Type: BLOOD SPECIMENOrdering Facility: [facility] Address: [address] [place] [address] Result Comment: Clementine min K Antagonist (VKA) Therapeutic Range: INR 2 to 3 (Target INR of 2.5)Note: For patients treated with VKA drugs, such as warfarin, the [place] [employer] 2012 Guideline recommends [...] al. Chest 2012, 141:7S-47SNishimura RA, et al. [facility] 2017, 70: 252-289 Performed By: #### 3 255-7, 74805-4, 48951-7 ####[facility] LABCLIA [id number] [address] [address] [place] PT Coag (PPP) [Time] 14.5 s High 9.7-13.0 [facility] Comment on above: Order Comment: Speci men Type: BLOOD SPECIMENOrdering Facility: [facility] Address: [address] [place] [address] Performed By: #### 3 255-7, 31464-0, 64048-3 ####[facility] LABCLIA [id number] [place] [address] [place] Phosphate SerPl-mCncon 09-19 Phosphate [Mass/Vol] 2.7 mg/dL Normal 2.7-4.8 [facility] Comment on above: Order Comment: Speci men Type: BLOOD SPECIMENOrdering Facility: [facility] Address: [address] [place] [address] Performed By: #### 2 4323-8, 23355-0, 2777-1, 3084-1 ####[facility] LABCLIA [id number] [place] [address] [place] SOCIAL WORKon 09-20-2023 SOCIAL WORK Normal [facility] TYPE + SCREENon 09-20-2023 HISTORICAL AB SCR STATUS Negative Normal [facility] Comment on above: Order Comment: Speci men Type: BLOOD SPECIMENOrdering Facility: [facility] Address: [address] [place] [address] Performed By: #### B BABSAMANTHA, TSCR ####[facility] BLOOD BANKCLIA [id number] [place] [address] [place]#### BBRABI ####[facility] LABCLIA [id number] [address] [place] TYPE AND SCREEN EXPIRATION 09/23/2023 23:59 Normal [facility] Comment on above: Order Comment: Speci men Type: BLOOD SPECIMENOrdering Facility: [facility] Address: [address] [place] [address] Performed By: #### B BABINT, TSCR ####[facility] BLOOD BANKCLIA [id number] [place] [address] [place]#### BBRABI ####[facility] LABCLIA [id number] [place] [address] [place] Urate SerPl-mCncon 4 Urate [Mass/Vol] 3.3 mg/dL Normal 2.5-6.6 [facility] Comment on above: Order Comment: Speci men Type: BLOOD SPECIMENOrdering Facility: [facility] Address: [address] [place] [address] Performed By: #### 2 4323-8, 61163-1, 2777-1, 3084-1 ####[facility] LABCLIA [id number] [place] [address] [place] Urinalysis complete panel (U )on 09-20-2023 Bacteria LM.HPF (Urine sed) [#/Area] Negative Normal Negative [facility] Comment on above: Order Comment: Speci men Type: URINE SPECIMENOrdering Facility: [facility] Address: [address] [place] [address] Performed By: #### 2 4356-8 ####[facility] LABCLIA [id number] [place] [address] [place] Bilirubin Ql (U) Negative Normal Negative [facility] Comment on above: Order Comment: Speci men Type: URINE SPECIMENOrdering Facility: [facility] Address: [address] [place] [address] Performed By: #### 2 4356-8 ####[facility] LABCLIA [id number] [place] [address] [place] Clarity (Unsp spec) Clear Normal Clear [facility] Comment on above: Order Comment: Speci men Type: URINE SPECIMENOrdering Facility: [facility] Address: [address] [place] [address] Performed By: #### 2 4356-8 ####[facility] LABCLIA [id number] [place] [address] [place] Color (U) Yellow Normal Yellow [facility] Comment on above: Order Comment: Speci men Type: URINE SPECIMENOrdering Facility: [facility] Address: [address] [place] [address] Performed By: #### 2 4356-8 ####[facility] LABCLIA [id number] [place] [address] [place] Epithelial cells LM.HPF (Urine sed) [#/Area] None Seen Normal [facility] Comment on above: Order Comment: Speci men Type: URINE SPECIMENOrdering Facility: [facility] Address: [address] [place] [address] Performed By: #### 2 4356-8 ####[facility] LABCLIA [id number] [place] [address] [place] Glucose Test strip (U) [Mass/Vol] Negative Normal Negative [facility] Comment on above: Order Comment: Speci men Type: URINE SPECIMENOrdering Facility: [facility] Address: [address] [place] [address] Performed By: #### 2 4356-8 ####[facility] LABCLIA [id number] [place] [address] [place] Hemoglobin Ql (U) Trace Abnormal Negative [facility] Comment on above: Order Comment: Speci men Type: URINE SPECIMENOrdering Facility: [facility] Address: [address] [place] [address] Performed By: #### 2 4356-8 ####[facility] LABCLIA [id number] [place] [address] [place] Hyaline casts (Urine sed) [#/Area] 0 /[LPF] Normal 0 /LPF [facility] Comment on above: Order Comment: Speci men Type: URINE SPECIMENOrdering Facility: [facility] Address: [address] [place] [address] Performed By: #### 2 4356-8 ####[facility] LABCLIA [id number] [place] [address] [place] Ketones Ql (U) Negative Normal Negative [facility] Comment on above: Order Comment: Speci men Type: URINE SPECIMENOrdering Facility: [facility] Address: [address] [place] [address] Performed By: #### 2 4356-8 ####[facility] LABCLIA [id number] [place] [address] [place] Leukocyte esterase Test strip Ql (U) Trace Abnormal Negative [facility] Comment on above: Order Comment: Speci men Type: URINE SPECIMENOrdering Facility: [facility] Address: [address] [place] [address] Performed By: #### 2 4356-8 ####[facility] LABCLIA [id number] [place] [address] [place] Nitrite Ql (U) Negative Normal Negative [facility] Comment on above: Order Comment: Speci men Type: URINE SPECIMENOrdering Facility: [facility] Address: [address] [place] [address] Performed By: #### 2 4356-8 ####[facility] LABCLIA [id number] [place] [address] [place] pH (U) 6.5 [pH] Normal <8.5 [facility] Comment on above: Order Comment: Speci men Type: URINE SPECIMENOrdering Facility: [facility] Address: [address] [place] [address] Performed By: #### 2 4356-8 ####[facility] LABCLIA [id number] [place] [address] [place] Protein (U) [Mass/Vol] Trace Abnormal Negative [facility] Comment on above: Order Comment: Speci men Type: URINE SPECIMENOrdering Facility: [facility] Address: [address] [place] [address] Performed By: #### 2 4356-8 ####[facility] LABIA [id number] [place] [address] [place] RBC LM.HPF (Urine sed) [#/Area] 0-2 /HPF Normal 0-2 /HPF [facility] Comment on above: Order Comment: Speci men Type: URINE SPECIMENOrdering Facility: [facility] Address: [address] [place] [address] Performed By: #### 2 4356-8 ####[facility] LABIA [id number] [place] [address] [place] Specific gravity (U) [Rel density] 1.014 Normal 1.005-1.030 [facility] Comment on above: Order Comment: Speci men Type: URINE SPECIMENOrdering Facility: [facility] Address: [address] [place] [address] Performed By: #### 2 4356-8 ####[facility] LABCLIA [id number] [place] [address] [place] Urobilinogen Ql (U) 1.0 EU/dL Normal 0.2-1.0 EU/dL [facility] Comment on above: Order Comment: Speci men Type: URINE SPECIMENOrdering Facility: [facility] Address: [address] [place] [address] Performed By: #### 2 4356-8 ####[facility] LABCLIA [id number] [place] [address] [place] WBC LM.HPF (Urine sed) [#/Area] 0-5 /HPF Normal 0-5 /HPF [facility] Comment on above: Order Comment: Speci men Type: URINE SPECIMENOrdering Facility: [facility] Address: [address] [place] [address] Performed By: #### 2 4356-8 ####[facility] [id number] [place] [address] [place] XR CHEST 2V FRONTAL/LATon XR CHEST 2V FRONTAL/LAT Normal [facility] aPTT PPPon 09-20-2023 aPTT Coag (PPP) [Time] 33.9 s High 23.0-32.4 [facility] Comment on above: Order Comment: Speci men Type: BLOOD SPECIMENOrdering Facility: [facility] Address: [address] [place] [address] Performed By: #### 3 255-7, 75704-3, 14555-0 ####[facility] [id number] [place] [address] [place] Ambulatory Visit Summaryon 0 09-18-2023 Ambulatory Visit Summary MYRNA SHEN :1940 Visit Date:09/18/2023 Ambulatory Visit Instructions Your Diagnosis BMI 28.0-28.9,adult Your Care Team Attending Physician - Darby Hamlin MD Primary Care Physician - Darby Hamlin MD This Is Your Medications List [facility] Prescription (Test strips) amlodipine (amLODIPine 5 mg [...] EST With: Boubacar VINCENT, Darby Garay Where: [facility] Medicine Gladys Normal [facility] Medicine Office/Clini c Noteon 09-18-2023 Family Medicine [...] Problem List/Past Medical History Ongoing 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 Dehydration Hx of [...] (COVID-19) mRNA-1273 vaccine 08/20/2020 Recorded Normal [facility] Comment on above: Result Comment: Elec tronically Signed By: Boubacar VINCENT, Darby Goode.br\Date and Time Signed: 09/18/23 12:38 EST Leland 09-18-2023 L Specimen: Received: 09/18/23 Status: RADHA Req Num: [id number] Spec Type: Impression Subm Dr: Gladys,Lab Tissues: PATHPER Procedures: PATHREVIEW Age/ Patient Sex Location Account Attending Physician Myrna Shen 83/F [place] [id number] NON STAFF SPEC NUM: RECD: 09/18/23 STATUS: RADHA REQ NUM: [id number] SYBIL: 09/18/[address]: Gladys,Lab ENTERED: 09/18/[address]: SPEC TYPE: Impression DEPT: TERRA Grace ENTERED BY: [id number] RECV BY: [id number] ORDERED: PATHREVIEW ORDERED: PATHREVIEW Pathologist Review Abnormal [...] observation at 3:20 PM on 09/18/2023 CPT: 65153 CBC No results available. Specimen: [id number] Received: 09/18/23 Status: RADHA Dempsey Num: [id number] Spec Type: Impression Subm Dr: Gladys,Lab Tissues: PATHPER Procedures: PATHREVIEW Patient: Myrna Shen [id number] (Continued) Signed (signature on file) James-Sen Casillas MD 09/18/23 1528 Normal [facility] Ambulatory Visit Summaryon 0 08-31-2023 [...] Hamlin MD This Is Your Medications List [facility] Prescription (Test strips) amlodipine (amLODIPine 5 mg [...] PM EST With: Darby Hamlin MD Where: [facility] Ambulatory Visit Summary MYRNA SHEN :1940 Visit [...] PM EST With: Darby Hamlin MD Where: [facility] Ambulatory Visit Summary MYRNA SHEN :1940 Visit [...] EST With: Boubacar VINCENT, Darby Garay Where: [facility] Family Medicine Gladys Normal [facility] BMPon 08-31-2023 Anion gap [Moles/Vol] 10 mmol/L Normal -16 [facility] Comment on above: Performed By: #### 7 [id number], [id number], [id number] ####[facility] [address] [place] [address] BUN/Creat Ratio 20 No Units Normal 10-20 [facility] Comment on above: Performed By: #### 7 [id number], [id number], [id number] ####[facility] [address] [place] [address] Calcium [Mass/Vol] 8.9 mg/dL Normal 8.9-11.1 [facility] Comment on above: Performed By: #### 7 [id number], 5034651, [id number] ####[facility] [address] [place] [address] Chloride [Moles/Vol] 104 mmol/L Normal 101-111 [facility] Comment on above: Performed By: #### 7 [id number], 4393055, 45177504 ####[facility] [address] [place] [address] CO2 [Moles/Vol] 29 mmol/L Normal 21-31 [facility] Comment on above: Performed By: #### 7 [id number], 9644665, [id number] ####[facility] [address] [place] [address] Creatinine [Mass/Vol] 0.7 mg/dL Normal 0.5-1.3 [facility] Comment on above: Performed By: #### 7 68820727, 4345647, 22251270 ####[facility] [address] [place] [address] Glucose [Mass/Vol] 87 mg/dL Normal 55-199 [facility] Comment on above: Performed By: #### 7 77929486, 8143651, 12815148 ####[facility] [address] [place] [address] Potassium [Moles/Vol] 4.0 mmol/L Normal 3.5-5.3 [facility] Comment on above: Performed By: #### 7 05564652, 5702712, 71560093 ####[facility] [address] [place] [address] Sodium [Moles/Vol] 139 mmol/L Normal 135-145 [facility] Comment on above: Performed By: #### 7 59835072, 4985295, 38975278 ####[facility] [address] [place] [address] Urea nitrogen [Mass/Vol] 14 mg/dL Normal 5-21 [facility] Comment on above: Performed By: #### 7 [id number], 9290361, 88513404 ####[facility] [address] [place] [address] CHEMISTRYOrdered By: Tree Jaramillo on 08-31-2023 U [...] (Bld) [Mass fraction] 5.0 % Normal <=5.9% [facility] ChemAutoSS Family Medicine Office/Clini c Noteon 08-31-2023 [...] of clutter to prevent tripping and/or falling. [place] Advance Directives reviewed, has at home. Patient [...] PCP visit. Will have labs completed with [facility]. Colonoscopy, never completed, aged out. Mammogram aged [...] doctor and (more content not included)... Normal [facility] Comment on above: Result Comment: Elec tronically Signed By: Aurea Perez\.br\Date and Time Signed: 08/31/23 14:19 EST\.br\Electronically Co-Signed By: Yordy James\.br\Date and Time Co-Signed: 08/31/23 13:39 EST [id number] 08-31-2023 HbA1c (Bld) [Mass fraction] 5.0 % Normal <=5.9 [facility] Comment on above: Performed By: #### 7 [id number], 6932476, 39051894 ####[facility] [address] [place] [address] Patient Educationon 08-31-19 Patient Education Cardiovascular Atrial [...] signals of the heart. ? An ambulatory site monitor to record your heart's activity for [...] Trouble breathing. (more content not included)... Normal [facility] Screenson 08-31-2023 Screens [id number] Normal [facility] U Microalbon 08-31-2023 U Microalb <2.0 Normal 0.0-19.0 [facility] Comment on above: Performed By: #### 1 1646783, [id number] ####[facility] [address] [place] [address] U Protein/Creat Ratioon 08-16 U Creatinine 32.3 mg/dL Invalid Interpretation Code [facility] Comment on above: Performed By: #### 1 [id number], [id number] ####[facility] [address] [place] [address] U Prot/Creat Ratio NOT CALCULATED Invalid Interpretation Code .00-200.00 [facility] Comment on above: Performed By: #### 1 1718041, [id number] ####[facility] [address] [place] [address] Ur Total Protein <6.0 Invalid Interpretation Code [facility] Comment on above: Performed By: #### 1 2035622, [id number] ####[facility] [address]Norm[facility] [place] [address] eGFRon 08-31-2023 eGFR 87 mL/min/1.73 m2 Normal >=59 [facility] Comment on above: Order Comment: Order added by Discern Expert. Performed By: #### 7 [id number], 5366781, [id number] ####[facility] [address] [place] [address] Office Visiton 04-27-2023 Follow-up visit [id number] Angélica Shen 1940 F Date Provider Department Center 04/27/2023 LEXI VILLALTA SAUD [facility] Family History Problem Relation Age of Onset Coronary artery disease Mother Diabetes Mother Alcohol abuse Father Family Status - Relation Status Age at Mother Father Level of Service:26883 [place] OFFICE/OUTPATIENT ESTABLISHED LOW MDM 20-29 MIN Reason for Visit and Comments: Follow-up [311406] Normal [facility] Office Visiton 03-02-2023 Follow-up visit [id number] Angélica Shen 1940 F Date Provider Department Center 03/02/2023 LEXI VILLALTA SAUD [facility] Family History Problem Relation Age of Onset Coronary artery disease Mother Diabetes Mother Alcohol abuse Father Family Status - Relation Status Age at Mother Father Level of Service:21536 [place] OFFICE/OUTPATIENT ESTABLISHED MOD MDM 30-39 MIN Reason for Visit and Comments: Follow-up [661536] Normal [facility] Family Medicine Office/Clini c Noteon 01-01-2023 [...] is very susceptible to virus. The first chief nursing officer she was evaluated by suspected bug bites from bugs in her house. She was going to her chief nursing officer for over a year. She states that she experimented with at least 12 to 20 different kinds of lotions, potions, oils, medicines, and biopsies. She states that nothing never showed. She states that one biopsy said that she may be allergic to one of her medications. They discontinued her spironolactone. Myrna endorses benefit with steroids. She has stopped going to the chief nursing officer. Review of Systems PHQ Score Initial Depression [...] with voice recognition artificial intelligence software, specifically i'mma, SpreadShout and or Walltik. Substitutions may have occurred due to the inherent limitations of voice recognition and artificial intelligence software. ATTESTATION: Documentation services were performed after patient or guardian consented to allow [employer] to record this visit. LETTY preventive medicine specialist and provider reviewed before signing. 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 Normal [facility] Comment on above: Result Comment: Elec tronically [...] 25 mg Tab) potassium chloride (Potassium Chloride (Def-Uizc-Fph M20) 20 mEq oral tablet, extended release) Procedures Performed CABG - Coronary artery bypass graft. Discharge Vitals Heart Rate (Peripheral) 66 Respiratory Rate 16 Blood Pressure 140/74 Height 162 cm Height 64 in Weight 82.1 kg Weight 180.62 lb BMI 31.28 What to do next Scheduled Follow-Up Appointments Sunday 1:20 PM EDT With: Darby Hamlin MD Where: [facility] Normal [address] [place] [address]- \.br\ Medications\.br\ What How Much When Instructions\.br \ Changed furosemide (furosemide 40 mg Tab) 1 Tablets By Mouth 2 times a day Pickup at [facility] [id number]\.br\ Unchanged amiodarone (amiodarone 200 mg Tab) 1 [...] concerns \.br\ Unchanged potassium chloride (Potassium Chloride (Hyd-Awcz-Phz M20) 20 mEq oral tablet, extended release) 1 Tablets By Mouth once daily or twice daily when taking an additional furosemide Contact prescribing physician if questions or concerns \.br\ Pharmacy Information\.br\ [facility] [id number]: [address] [place] [id number] [phone]\.br\ Allergies\.br\ spironolactone (Rash)\.br\ Vitamin C (Unknown)\.br\ Problems\.br\ Ongoing - Any problem that you are currently receiving treatment for.\.br\ 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\.br\ Hx of melanoma of skin\.br\ Hypercholesterol emia\.br\ Neurodermatitis\ .br\ Paroxysmal atrial fibrillation\.br \ Spinal stenosis in cervical region\.br\ Stage 3a chronic kidney disease (CKD)\.br\ Stasis dermatitis\.br\ Uncontrolled type 2 diabetes mellitus with hyperglycemia\.b r\ \.br\ [facility] BMPon 12-19-2022 Anion gap [Moles/Vol] 12 mmol/L Normal 6-16 [facility] Comment on above: Performed By: #### 2 173521, [id number] ####[facility] [address] [place] [address] Calcium [Mass/Vol] 9.1 mg/dL Normal 8.9-11.1 [facility] Comment on above: Performed By: #### 2 464941, [id number] ####[facility] [address] [place] [address] Chloride [Moles/Vol] 106 mmol/L Normal 101-111 [facility] Comment on above: Performed By: #### 2 868943, [id number] ####[facility] [address] [place] [address] CO2 [Moles/Vol] 25 mmol/L Normal 21-31 [facility] Comment on above: Performed By: #### 2 249374, [id number] ####[facility] [address] [place] [address] Creatinine [Mass/Vol] 0.8 mg/dL Normal 0.5-1.3 [facility] Comment on above: Performed By: #### 2 847375, 32386435 ####[facility] [address] [place] [address] Glucose [Mass/Vol] 162 mg/dL Normal 55-199 [facility] Comment on above: Result Comment: If t his glucose result represents a fasting glucose, interpretation should refer to the following reference range: 55-99 mg/dL Performed By: #### 2 396315, [id number] ####[facility] [address] [place] [address] Potassium [Moles/Vol] 4.3 mmol/L Normal 3.5-5.3 [facility] Comment on above: Performed By: #### 2 165754, 49572857 ####[facility] [address] [place] [address] Sodium [Moles/Vol] 139 mmol/L Normal 135-145 [facility] Comment on above: Performed By: #### 2 234896, 09196436 ####[facility] [address] [place] [address] Urea nitrogen [Mass/Vol] 19 mg/dL Normal 5-21 [facility] Comment on above: Performed By: #### 2 335231, 58855501 ####[facility] [address] [place] [address] Urea nitrogen/Creatinin e [Mass ratio] 24 No Units High 10-20 [facility] Comment on above: Performed By: #### 2 835604, 73566779 ####[facility] [address] [place] [address] CHEMISTRYOrdered By: SYSTEM SYSTEM on 12-19-2022 Anion gap [Moles/Vol] 12 mmol/L Normal 6 - 16 mEq/L [facility] Remisol Calcium [Mass/Vol] 9.1 mg/dL Normal 8.9 - 11.1 mg/dL [facility] Remisol Chloride [Moles/Vol] 106 mmol/L Normal 101 - 111 mmol/L [facility] Remisol CO2 [Moles/Vol] 25 mmol/L Normal 21 - 31 mmol/L [facility] Remisol Creatinine [Mass/Vol] 0.8 mg/dL Normal 0.5 - 1.3 mg/dL [facility] Remisol GFR/1.73 sq M.predicted among non-blacks MDRD (S/P/Bld) [Vol rate/Area] 74 mL/min/1.73 m2 Normal >=59mL/min/1.73 m2 [facility] Chem S Glucose [Mass/Vol] 162 mg/dL Normal 55 - 199 mg/dL [facility] Remisol Potassium [Moles/Vol] 4.3 mmol/L Normal 3.5 - 5.3 mmol/L [facility] Remisol Sodium [Moles/Vol] 139 mmol/L Normal 135 - 145 mmol/L [facility] Remisol Urea nitrogen [Mass/Vol] 19 mg/dL Normal 5 - 21 mg/dL [facility] Remisol Urea nitrogen/Creatinin e [Mass ratio] 24 mg/mg High 10 - 20 [facility] Remisol Nurse Consultation Noteon Nurse Consultation Note [...] mg= 1 tab(s), Oral, BID Potassium Chloride (Dgw-Giqf-Fav M20) 20 mEq oral tablet, extended release, 20 mEq= 1 tab(s), Oral Allergies spironolactone (Rash) Vitamin C (Unknown) Immunizations Vaccine Date Status SARS-CoV-2 (COVID-19) mRNA-1273 vaccine 09/17/2020 Recorded SARS-CoV-2 (COVID-19) mRNA-1273 vaccine 08/20/2020 Recorded Normal [facility] eGFRon 12-19-2022 GFR/1.73 sq M.predicted among non-blacks MDRD (S/P/Bld) [Vol rate/Area] 74 mL/min/1.73 m2 Normal >=59 [facility] Comment on above: Order Comment: Order added by Discern Expert. Result Comment: Financial Reporting Accountant radha kidney disease could be indicated at eGFR's of less than 60 mL/min/1.73m2. Kidney failure is indicated at less than 15 mL/min/1.73m2. Performed By: #### 2 [id number], [id number] ####[facility] [address] [place] [address] Transfer Inon 12-14-2022 Transfer In [id number]#[id number]:12 7 Normal [facility] Medicine Office/Clini c Noteon 12-13-2022 Family Medicine [...] COVID-19. She had an appointment with a glass embosser in the past, but she canceled due [...] mg/dL. She has an appointment with her make up arranger Dr. Zapata on 01/02/2023 for A-fib. Review [...] Malachi Hassan to record this visit. LETTY preventive medicine specialist and provider reviewed before signing. 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 Normal [facility] Comment on above: Result Comment: Elec tronically Signed By: Darby Hamlin MD\.br\Date and Time Signed: 12/13/22 15:45 EDT\.br\Electronically Co-Signed By: Norris Osborne\.br\Date and Time Co-Signed: 12/12/22 16:38 EDT Physician Referralon 023 Physician Referral [id number]:1 27 Normal [facility] CHEMISTRYOrdered By: SYSTEM SYSTEM on 12-12-2022 Albumin [...] rate/Area] 46 mL/min/1.73 m2 Low >=59mL/min/1.73 m2 [facility] Chem S Globulin (S) [Mass/Vol] 3.0 g/dL Normal 1.4 - 4.0 gm/dL FT Remisol Glucose [Mass/Vol] 131 mg/dL Normal 55 - 199 mg/dL [facility] Potassium [Moles/Vol] 4.4 mmol/L Normal 3.5 - 5.3 mmol/L [facility] Protein [Mass/Vol] 7.3 g/dL Normal 6.0 - 7.8 gm/dL F [facility] Remisol Sodium [Moles/Vol] 139 mmol/L Normal 135 - 145 mmol/L [facility] Urea nitrogen [Mass/Vol] 18 mg/dL Normal 5 - 21 mg/dL [facility] Urea nitrogen/Creatinin e [Mass ratio] 15 mg/mg Normal 10 - 20 [facility] Remisol CHEMISTRYOrdered By: Andreia Maria on 12-12-2022 HbA1c (Bld) [Mass fraction] 6.8 % High <=5.9% [facility] ChemAutoSS CMPon 12-12-2022 Anion gap [Moles/Vol] 12 mmol/L Normal 6-16 [facility] Comment on above: Performed By: #### 2 485669, 58220740, [id number] ####[facility] [address]Normatteaw[facility] [place] [address] Calcium [Mass/Vol] 9.4 mg/dL Normal 8.9-11.1 [facility] Comment on above: Performed By: #### 2 519463, 16508501, [id number] ####[facility] [address] [place] [address] Chloride [Moles/Vol] 104 mmol/L Normal 101-111 [facility] Comment on above: Performed By: #### 2 443771, 61000796, [id number] ####[facility] [address] [place] [address] CO2 [Moles/Vol] 27 mmol/L Normal 21-31 [facility] Comment on above: Performed By: #### 2 851526, 52509466, [id number] ####[facility] [address] [place] [address] Glucose [Mass/Vol] 131 mg/dL Normal 55-199 [facility] Comment on above: Result Comment: If t his glucose result represents a fasting glucose, interpretation should refer to the following reference range: 55-99 mg/dL Performed By: #### 2 227107, 38490622, [id number] ####[facility] [address]Normatteaw[address] [place] [address] Potassium [Moles/Vol] 4.4 mmol/L Normal 3.5-5.3 [facility] Comment on above: Performed By: #### 2 733415, 40994138, 085319517 ####[facility] [address]Normatteaw[address] [place] [address] Sodium [Moles/Vol] 139 mmol/L Normal 135-145 [facility] Comment on above: Performed By: #### 2 179041, 96486012, [id number] ####[facility] [address] [place] [address] Albumin [Mass/Vol] 4.3 g/dL Normal 3.3-5.0 [facility] Comment on above: Performed By: #### 2 179230, 38835896, [id number] ####[facility] [address] [place] [address] Albumin/Globulin (S) [Mass conc ratio] 1.4 Normal 1.1-2.2 [facility] Comment on above: Performed By: #### 2 817561, 19919205, 974919716 ####[facility] [address] [place] [address] ALP [Catalytic activity/Vol] 74 Int._Unit/L Normal 21-98 [facility] Comment on above: Performed By: #### 2 934406, 49529535, [id number] ####[address] [address] ALT No additional P-5'-P [Catalytic activity/Vol] 22 Int._Unit/L Normal 6-46 [facility] Comment on above: Performed By: #### 2 627908, 71619193, [id number] ####[facility] [address] [place] [address] AST [Catalytic activity/Vol] 20 Int._Unit/L Normal 5-43 [facility] Comment on above: Performed By: #### 2 786886, 46007885, [id number] ####[facility] [address] [place] [address] Bilirubin [Mass/Vol] 0.9 mg/dL Normal 0.0-1.1 [facility] Comment on above: Performed By: #### 2 918340, 55896168, [id number] ####[facility] [address] [facility] [place] [address] Creatinine [Mass/Vol] 1.2 mg/dL Normal 0.5-1.3 [facility] Comment on above: Performed By: #### 2 262398, 81120439, [id number] ####[facility] [address] [place] [address] Globulin (S) [Mass/Vol] 3.0 g/dL Normal 1.4-4.0 [facility] Comment on above: Performed By: #### 2 582550, 03495169, [id number] ####[facility] [address] [place] [address] Protein [Mass/Vol] 7.3 g/dL Normal 6.0-7.8 [facility] [facility] Comment on above: Performed By: #### 2 [id number], [id number], [id number] ####[facility] [id number] [place] [address] Urea nitrogen [Mass/Vol] 18 mg/dL Normal 5-21 [facility] Comment on above: Performed By: #### 2 [id number], [id number], [id number] ####[facility] [id number] [place] [address] Urea nitrogen/Creatinin e [Mass ratio] 15 No Units Normal 10-20 [facility] Comment on above: Performed By: #### 2 [id number], [id number], [id number] ####[facility] [id number] [place] [address] [id number] 12-12-2022 HbA1c (Bld) [Mass fraction] 6.8 % High <=5.9 [facility] Comment on above: Performed By: #### 2 [id number], [id number], [id number] ####[id number] [place] [address] Patient Educationon 12-13-19 23 Patient Education Endocrinology [...] following in (more content not included)... Normal [facility] eGFRon 12-12-2022 GFR/1.73 sq M.predicted among non-blacks MDRD (S/P/Bld) [Vol rate/Area] 46 mL/min/1.73 m2 Low >=59 [facility] Comment on above: Order Comment: Order added by Discern Expert. Result Comment: Financial Reporting Accountant radha kidney disease could be indicated at eGFR's of less than 60 mL/min/1.73m2. Kidney failure is indicated at less than 15 mL/min/1.73m2. Performed By: #### 2 [id number], [id number], [id number] ####[facility] [id number] [place] [address] Telemedicineon 11-14-2022 Telemedicine [id number] Angélica Shen 1940 F Date Provider Department Center 11/14/2022 SATNAM DAVIS [facility] Family History Problem Relation Age of Onset Coronary artery disease Mother Diabetes Mother Alcohol abuse Father Family Status - Relation Status Age at Mother Father Level of Service:[address] [place] OFFICE/OUTPATIENT NEW MODERATE MDM 45-59 MINUTES Normal [facility] T3, TOTAL (TRIIODOTHYRONINE) on 11-10-2022 T3, TOTAL 78 ng/dL Normal 71-180 [facility] Comment on above: Performed By: #### C MP, BNP, TSHRFT4 #### [facility] [address] [place] [address] Dr. Sy Casillas 36on 11-09-2022 36 Patient is currently admitted to [facility] as of 11/09/2022 Normal [facility] BNPon 11-09-2022 Natriuretic peptide B (Bld) [Mass/Vol] 1472.0 pg/mL Normal <=1,800.0 [facility] Comment on above: Performed By: #### C MP, BNP, TSHRFT4 #### [facility] [address] [place] [address] Dr. Sy Casillas CBC AUTO DIFFon 11-09-2022 BASO # 0.3 103/ul Critically high 0.0-0.1 [facility] Comment on above: Performed By: #### C BC #### [facility] [address] [place] [address] Dr. Sy Casillas Basophils/100 WBC (Bld) 3.0 % Critically high 0.2-2.0 [facility] Comment on above: Performed By: #### C BC #### [facility] [address] [place] [address] Dr. Sy Casillas EO # 0.3 103/ul Normal 0.0-0.7 [facility] Comment on above: Performed By: #### C BC #### [facility] [address] [place] [address] Dr. Sy Casillas Eosinophils/100 WBC (Bld) 3.3 % Normal 0.9-7.0 [facility] Comment on above: Performed By: #### C BC #### [facility] [address] [place] [address] Dr. Sy Casillas Erythrocyte distribution width (RBC) [Ratio] 19.9 % Critically high 11.0-15.0 [facility] Comment on above: Performed By: #### C BC #### [facility] [address] [place] [address] Dr. Sy Casillas Hematocrit (Bld) [Volume fraction] 38.1 % Normal 36.0-48.0 [facility] Comment on above: Performed By: #### C BC #### [facility] [address] [place] [address] Dr. Sy Casillas Hemoglobin (Bld) [Mass/Vol] 12.0 g/dL Normal 12.0-16.0 [facility] Comment on above: Performed By: #### C BC #### [facility] [address] [place] [address] Dr. yS Casillas IG # 0.72 10e3/ul Critically high 0.00-0.03 [facility] Comment on above: Performed By: #### C BC #### [facility] [address] [place] [address] Dr. Sy Casillas IG % 7.5 % Critically high 0.0-0.5 [facility] Comment on above: Performed By: #### C BC #### [facility] [address] [place] [address] Dr. Sy Casillas LYMPH # 1.4 103/ul Normal 1.2-3.8 [facility] Comment on above: Performed By: #### C BC #### [facility] [address] [place] [address] Dr. Sy Casillas Lymphocytes/100 WBC (Bld) 14.1 % Critically low 20.5-60.0 [facility] Comment on above: Performed By: #### C BC #### [facility] [address] [place] [address] Dr. Sy Casillas MANUAL DIFF REQ NO Normal [facility] Comment on above: Performed By: #### C BC #### [facility] [address] [place] [address] Dr. Sy Casillas MCH (RBC) [Entitic mass] 25.2 pg Critically low 26.7-34.0 [facility] Comment on above: Performed By: #### C BC #### [facility] [address] [place] [address] Dr. Sy Casillas MCHC (RBC) [Mass/Vol] 31.5 g/dL Normal 29.9-35.2 [facility] Comment on above: Performed By: #### C BC #### [facility] [address] [place] [address] Dr. Sy Casillas MCV (RBC) [Entitic vol] 79.9 fL Critically low 81.0-99.0 [facility] Comment on above: Performed By: #### C BC #### [facility] [address] [place] [address] Dr. Sy Casillas MONO # 0.6 103/ul Normal 0.3-0.8 [facility] Comment on above: Performed By: #### C BC #### [facility] [address] [place] [address] Dr. Sy Casillas Monocytes/100 WBC (Bld) 6.6 % Normal 1.7-12.0 [facility] Comment on above: Performed By: #### C BC #### [facility] [address] [place] [address] Dr. Sy Casillas NEUT # 6.3 103/ul Normal 1.4-6.5 [facility] Comment on above: Performed By: #### C BC #### [facility] [address] [place] [address] Dr. Sy Casillas Neutrophils/100 WBC (Bld) 65.5 % Normal 43.0-75.0 [facility] Comment on above: Performed By: #### C BC #### [facility] [address] [place] [address] Dr. Sy Casillas Platelet mean volume (Bld) [Entitic vol] 10.4 fL Normal 9.5-13.5 [facility] Comment on above: Performed By: #### C BC #### [facility] [address] [place] [address] Dr. Sy Casillas PLT 225 103/ul Normal 150-450 [facility] Comment on above: Performed By: #### C BC #### [facility] [address] [place] [address] Dr. Sy Casillas RBC 4.77 106/ul Normal 4.20-5.40 [facility] Comment on above: Performed By: #### C BC #### [facility] [address] [place] [address] Dr. Sy Casillas WBC 9.6 103/ul Normal 4.0-11.0 [facility] Comment on above: Performed By: #### C BC #### [facility] [address] [place] [address] Dr. Sy Casillas MAGNESIUMon 11-09-2022 Magnesium [Mass/Vol] 1.7 mg/dL Critically low 1.8-2.4 [facility] Comment on above: Performed By: #### C MP, BNP, TSHRFT4 #### [facility] [address] [place] [address] Dr. Sy Casillas POINT OF CARE GLUCOSEon 10-15 Glucose [Mass/Vol] 330 mg/dL Critically high 74-106 [facility] Comment on above: Performed By: #### C MP, BNP, TSHRFT4 #### [facility] [address] [place] [address] Dr. Sy Casillas Glucose [Mass/Vol] 197 mg/dL Critically high 74-106 [facility] Comment on above: Performed By: #### P OCGLUC #### [facility] [address] [place] [address] Dr. Sy Casillas PROF 14(COMP METB)on 023 Albumin [Mass/Vol] 2.5 g/dL Critically low 3.4-5.0 Th [facility] Comment on above: Performed By: #### C MP, BNP, TSHRFT4 #### [facility] [address] [place] [address] Dr. Sy Casillas Albumin/Globulin [Mass ratio] 0.8 {ratio} Normal [facility] Comment on above: Performed By: #### C MP, BNP, TSHRFT4 #### [facility] [address] [place] [address] Dr. Sy Casillas ALP [Catalytic activity/Vol] 83 U/L Normal 46-116 [facility] Comment on above: Performed By: #### C MP, BNP, TSHRFT4 #### [facility] [address] [place] [address] Dr. Sy Casillas ALT [Catalytic activity/Vol] 29 U/L Normal 14-59 [facility] Comment on above: Performed By: #### C MP, BNP, TSHRFT4 #### [facility] [address] [place] [address] Dr. Sy Casillas Anion gap [Moles/Vol] 10.3 mmol/L Normal [facility] Comment on above: Performed By: #### C MP, BNP, TSHRFT4 #### [facility] [address] [place] [address] Dr. Sy Casillas AST [Catalytic activity/Vol] 15 U/L Normal 15-37 [facility] Comment on above: Performed By: #### C MP, BNP, TSHRFT4 #### [facility] [address] [place] [address] Dr. Sy Casillas Bilirubin [Mass/Vol] 0.8 mg/dL Normal 0.2-1.0 [facility] Comment on above: Performed By: #### C MP, BNP, TSHRFT4 #### [facility] [address] [place] [address] Dr. Sy Casillas Calcium [Mass/Vol] 8.5 mg/dL Normal 8.5-10.1 [facility] Comment on above: Performed By: #### C MP, BNP, TSHRFT4 #### [facility] [address] [address] [address] Sy Casillas Chloride [Moles/Vol] 104 mmol/L Normal 98-107 [facility] Comment on above: Performed By: #### C MP, BNP, TSHRFT4 #### [facility] [address] [address] [address] Sy Casillas CO2 [Moles/Vol] 29.3 mmol/L Normal 21.0-32.0 [facility] Comment on above: Performed By: #### C MP, BNP, TSHRFT4 #### [facility] [address] [place] [address] Dr. Sy Casillas Creatinine [Mass/Vol] 0.75 mg/dL Normal 0.55-1.02 [facility] Comment on above: Performed By: #### C MP, BNP, TSHRFT4 #### [facility] [address] [place] [address] Dr. Sy Casillas EGFR-AF MONEGASQUE >60 Normal >=60 [facility] Comment on above: Performed By: #### C MP, BNP, TSHRFT4 #### [facility] [address] [place] [address] Dr. Sy Casillas EGFR-NON AF MONEGASQUE >60 Normal >=60 [facility] Comment on above: Performed By: #### C MP, BNP, TSHRFT4 #### [facility] [address] [place] [address] Dr. Sy Casillas Globulin (S) [Mass/Vol] 3.1 g/dL Normal [facility] Comment on above: Performed By: #### C MP, BNP, TSHRFT4 #### [facility] [address] [place] [address] Dr. Sy Casillas Glucose [Mass/Vol] 69 mg/dL Critically low 74-106 Th [facility] Comment on above: Performed By: #### C MP, BNP, TSHRFT4 #### [facility] [address] [place] [address] Dr. Sy Casillas Potassium [Moles/Vol] 2.6 mmol/L Critically low 3.5-5.1 [facility] Comment on above: Performed By: #### C MP, BNP, TSHRFT4 #### [facility] [address] [place] [address] Dr. Sy Casillas Protein [Mass/Vol] 5.6 g/dL Critically low 6.4-8.2 [facility] Comment on above: Performed By: #### C MP, BNP, TSHRFT4 #### [facility] [address] [place] [address] Dr. Sy Casillas Sodium [Moles/Vol] 140 mmol/L Normal 136-145 [facility] Comment on above: Performed By: #### C MP, BNP, TSHRFT4 #### [facility] [address] [place] [address] Dr. Sy Casillas Urea nitrogen [Mass/Vol] 17.0 mg/dL Normal 7.0-18.0 [facility] Comment on above: Performed By: #### C MP, BNP, TSHRFT4 #### [facility] [address] [place] [address] Dr. Sy Casillas Urea nitrogen/Creatinin e [Mass ratio] 22.7 mg/mg Normal [facility] Comment on above: Performed By: #### C MP, BNP, TSHRFT4 #### [facility] [address] [place] [address] Dr. Sy Casillas ACETONE SERUMon 11-08-2022 ACETONE Negative Normal NEGATIVE [facility] Comment on above: Performed By: #### A CETON #### [facility] [address] [place] [address] Dr. Sy Casillas BNPon 11-08-2022 Natriuretic peptide B (Bld) [Mass/Vol] 1755.0 pg/mL Normal <=1,800.0 [facility] Comment on above: Performed By: #### C MP, BNP, TSHRFT4 #### [facility] [address] [place] [address] Dr. Sy Casillas CBC AUTO DIFFon 11-08-2022 BASO # 0.3 103/ul Critically high 0.0-0.1 [facility] Comment on above: Performed By: #### C MP, BNP, TSHRFT4 #### [facility] [address] [place] [address] Dr. Sy Casillas Basophils/100 WBC (Bld) 2.4 % Critically high 0.2-2.0 [facility] Comment on above: Performed By: #### C MP, BNP, TSHRFT4 #### [facility] [address] [place] [address] Dr. Sy Casillas EO # 0.2 103/ul Normal 0.0-0.7 [facility] Comment on above: Performed By: #### C MP, BNP, TSHRFT4 #### [facility] [address] [place] [address] Dr. Sy Casillas Eosinophils/100 WBC (Bld) 1.4 % Normal 0.9-7.0 [facility] Comment on above: Performed By: #### C MP, BNP, TSHRFT4 #### [facility] [address] [place] [address] Dr. Sy Casillas Erythrocyte distribution width (RBC) [Ratio] 20.1 % Critically high 11.0-15.0 [facility] Comment on above: Performed By: #### C MP, BNP, TSHRFT4 #### [facility] [address] [place] [address] Dr. Sy Casillas Hematocrit (Bld) [Volume fraction] 39.4 % Normal 36.0-48.0 [facility] Comment on above: Performed By: #### C MP, BNP, TSHRFT4 #### [facility] [address] [place] [address] Dr. Sy Casillas Hemoglobin (Bld) [Mass/Vol] 12.8 g/dL Normal 12.0-16.0 [facility] Comment on above: Performed By: #### C MP, BNP, TSHRFT4 #### [facility] [address] [address] [address] Sy Casillas IG # 0.61 10e3/ul Critically high 0.00-0.03 [facility] Comment on above: Performed By: #### C MP, BNP, TSHRFT4 #### [facility] [address] [address] [address] Sy Casillas IG % 5.9 % Critically high 0.0-0.5 [facility] Comment on above: Performed By: #### C MP, BNP, TSHRFT4 #### [facility] [address] [place] [address] Dr. Sy Casillas LYMPH # 0.7 103/ul Critically low 1.2-3.8 [facility] Comment on above: Performed By: #### C MP, BNP, TSHRFT4 #### [facility] [address] [place] [address] Dr. Sy Casillas Lymphocytes/100 WBC (Bld) 6.4 % Critically low 20.5-60.0 [facility] Comment on above: Performed By: #### C MP, BNP, TSHRFT4 #### [facility] [address] [place] [address] Dr. Sy Casillas MANUAL DIFF REQ NO Normal [facility] Comment on above: Performed By: #### C MP, BNP, TSHRFT4 #### [facility] [address] [place] [address] Dr. Sy Casillas MCH (RBC) [Entitic mass] 25.4 pg Critically low 26.7-34.0 [facility] Comment on above: Performed By: #### C MP, BNP, TSHRFT4 #### [facility] [address] [place] [address] Dr. Sy Casillas MCHC (RBC) [Mass/Vol] 32.5 g/dL Normal 29.9-35.2 [facility] Comment on above: Performed By: #### C MP, BNP, TSHRFT4 #### [facility] [address] [place] [address] Dr. Sy Casillas MCV (RBC) [Entitic vol] 78.2 fL Critically low 81.0-99.0 [facility] Comment on above: Performed By: #### C MP, BNP, TSHRFT4 #### [facility] [address] [place] [address] Dr. Sy Casillas MONO # 0.6 103/ul Normal 0.3-0.8 [facility] Comment on above: Performed By: #### C MP, BNP, TSHRFT4 #### [facility] [address] [place] [address] Dr. Sy Casillas Monocytes/100 WBC (Bld) 5.8 % Normal 1.7-12.0 [facility] Comment on above: Performed By: #### C MP, BNP, TSHRFT4 #### [facility] [address] [place] [address] Dr. Sy Casillas NEUT # 8.1 103/ul Critically high 1.4-6.5 [facility] Comment on above: Performed By: #### C MP, BNP, TSHRFT4 #### [facility] [address] [place] [address] Dr. Sy Casillas Neutrophils/100 WBC (Bld) 78.1 % Critically high 43.0-75.0 [facility] Comment on above: Performed By: #### C MP, BNP, TSHRFT4 #### [facility] [address] [place] [address] Dr. Sy Casillas Platelet mean volume (Bld) [Entitic vol] 10.3 fL Normal 9.5-13.5 [facility] Comment on above: Performed By: #### C MP, BNP, TSHRFT4 #### [facility] [address] [place] [address] Dr. Sy Casillas PLT 229 103/ul Normal 150-450 [facility] Comment on above: Performed By: #### C MP, BNP, TSHRFT4 #### [facility] [address] [place] [address] Dr. Sy Casillas RBC 5.04 106/ul Normal 4.20-5.40 [facility] Comment on above: Performed By: #### C MP, BNP, TSHRFT4 #### [facility] [address] [place] [address] Dr. Sy Casillas WBC 10.4 103/ul Normal 4.0-11.0 [facility] Comment on above: Performed By: #### C MP, BNP, TSHRFT4 #### [facility] [address] [place] [address] Dr. Sy Casillas CULTURE URINEon 11-08-2022 CULTURE URINE Culture Observations : MODERATE GROWTH OF MIXED GENITAL ISAURA. NO POTENTIAL PATHOGENS SEEN. Normal [facility] Comment on above: Performed By: #### C MP, BNP, TSHRFT4 #### [facility] [address] [place] [address] Dr. Sy Casillas ER URINE PROFILEon 3 Bilirubin Ql (U) Negative Normal NEGATIVE [facility] Comment on above: Performed By: #### U MICRO, ERUR #### [facility] [address] [place] [address] Dr. Sy Casillas Clarity (U) CLEAR Normal CLEAR [facility] Comment on above: Performed By: #### U MICRO, ERUR #### [facility] [address] [place] [address] Dr. Sy Casillas Color (U) LT. YELLOW Normal YELLOW [facility] Comment on above: Performed By: #### U MICRO, ERUR #### [facility] [address] [place] [address] Dr. Sy Casillas ERUAHD A micrscopic examina tion will be performed if indicated. Normal [facility] Comment on above: Performed By: #### U MICRO, ERUR #### [facility] [address] [place] [address] Dr. yS Casillas Glucose Ql (U) >1000 Abnormal NEGATIVE [facility] Comment on above: Performed By: #### U MICRO, ERUR #### [facility] [address] [place] [address] Dr. Sy Casillas Hemoglobin Ql (U) TRACE-INTACT Abnormal NEGATIVE [facility] Comment on above: Performed By: #### U MICRO, ERUR #### [facility] [address] [address] [address] Sy Casillas Ketones Ql (U) TRACE Abnormal NEGATIVE [facility] Comment on above: Performed By: #### U MICRO, ERUR #### [facility] [address] [place] [address] Dr. Sy Casillas LEUKOCYTES Negative Normal NEGATIVE [facility] Comment on above: Performed By: #### U MICRO, ERUR #### [facility] [address] [address] [address] Sy Casillas Nitrite Ql (U) Negative Normal NEGATIVE [facility] Comment on above: Performed By: #### U MICRO, ERUR #### [facility] [address] [place] [address] Dr. Sy Casillas pH (U) 5.0 [pH] Normal 5-9 [facility] Comment on above: Performed By: #### U MICRO, ERUR #### [facility] [address] [place] [address] Dr. Sy Casillas SPEC GRAVITY <=1.005 Abnormal 1.005-<=1.025 [facility] Comment on above: Performed By: #### U MICRO, ERUR #### [facility] [address] [place] [address] Dr. Sy Casillas UA PROTEIN Negative Normal NEGATIVE/ TRACE [facility] Comment on above: Performed By: #### U MICRO, ERUR #### [facility] [address] [place] [address] Dr. Sy Casillas UR MICRO IND INDICATED Normal [facility] Comment on above: Performed By: #### U MICRO, ERUR #### [facility] [address] [place] [address] Dr. Sy Casillas Urobilinogen Qn (U) 0.2 {Brisa'U}/dL Normal 0.2 - 1.0 [facility] Comment on above: Performed By: #### U MICRO, ERUR #### [facility] [address] [place] [address] Dr. Sy Casillas GLYCOHEMOGLOBIN A1Con 2022 ADA RECOMMENDATION SEE BELOW Normal [facility] Comment on above: Result Comment: ADA RECOMMENDED LIMIT 4.0 - 6.0 ADA THERAPEUTIC TARGET < 7.0 ACTION SUGGESTED > 7.0 Performed By: #### C MP, BNP, TSHRFT4 #### [facility] [address] [place] [address] Dr. Sy Casillas Glucose [Mass/Vol] 240 mg/dL Normal [facility] Comment on above: Performed By: #### C MP, BNP, TSHRFT4 #### [facility] [address] [place] [address] Dr. Sy Casillas HbA1c (Bld) [Mass fraction] 10.0 % Critically high 4.5-6.2 [facility] Comment on above: Performed By: #### C MP, BNP, TSHRFT4 #### [facility] [address] [place] [address] Dr. Sy Casillas LACTATE/LACTIC ACIDon 2022 Lactate [Moles/Vol] 1.7 mmol/L Normal 0.4-2.0 [facility] Comment on above: Performed By: #### C MP, BNP, TSHRFT4 #### [facility] [address] [place] [address] Dr. Sy Casillas Lactate [Moles/Vol] 1.7 mmol/L Normal 0.4-2.0 [facility] Comment on above: Performed By: #### A SSBA #### [facility] [address] [place] [address] Dr. Sy Casillas MAGNESIUMon 11-08-2022 Magnesium [Mass/Vol] 1.6 mg/dL Critically low 1.8-2.4 [facility] Comment on above: Performed By: #### A SSBA #### [facility] [address] [place] [address] Dr. Sy Casillas PH VENOUS BLOODon 11-08-2022 PCO2 VENOUS 33.4 mmHg Critically low 40.0-52.0 [facility] Comment on above: Performed By: #### A SSBA #### [facility] [address] [place] [address] Dr. Sy Casillas pH VENOUS 7.507 Critically high 7.330-7.430 [facility] Comment on above: Performed By: #### A SSBA #### [facility] [address] [place] [address] Dr. Sy Casillas POINT OF CARE GLUCOSEon 10-15 Glucose [Mass/Vol] 378 mg/dL Critically high 74-106 T [facility] Comment on above: Performed By: #### A SSBA #### [facility] [address] [place] [address] Dr. Sy Casillas PROF 14(COMP METB)on 023 Albumin [Mass/Vol] 3.0 g/dL Critically low 3.4-5.0 Th [facility] Comment on above: Performed By: #### C MP, BNP, TSHRFT4 #### [facility] [address] [place] [address] Dr. Sy Casillas Albumin/Globulin [Mass ratio] 0.9 {ratio} Normal [facility] Comment on above: Performed By: #### C MP, BNP, TSHRFT4 #### [facility] [address] [place] [address] Dr. Sy Casillas ALP [Catalytic activity/Vol] 101 U/L Normal 46-116 [facility] Comment on above: Performed By: #### C MP, BNP, TSHRFT4 #### [facility] [address] [place] [address] Dr. Sy Casillas ALT [Catalytic activity/Vol] 33 U/L Normal 14-59 [facility] Comment on above: Performed By: #### C MP, BNP, TSHRFT4 #### [facility] [address] [place] [address] Dr. Sy Casillas Anion gap [Moles/Vol] 14.5 mmol/L Normal [facility] Comment on above: Performed By: #### C MP, BNP, TSHRFT4 #### [facility] [address] [place] [address] Dr. Sy Casillas AST [Catalytic activity/Vol] 18 U/L Normal 15-37 [facility] Comment on above: Performed By: #### C MP, BNP, TSHRFT4 #### [facility] [address] [place] [address] Dr. Sy Casillas Bilirubin [Mass/Vol] 1.4 mg/dL Critically high 0.2-1.0 [facility] Comment on above: Performed By: #### C MP, BNP, TSHRFT4 #### [facility] [address] [place] [address] Dr. Sy Casillas Calcium [Mass/Vol] 8.6 mg/dL Normal 8.5-10.1 [facility] Comment on above: Performed By: #### C MP, BNP, TSHRFT4 #### [facility] [address] [place] [address] Dr. Sy Casillas Chloride [Moles/Vol] 92 mmol/L Critically low 98-107 [facility] Comment on above: Performed By: #### C MP, BNP, TSHRFT4 #### [facility] [address] [place] [address] Dr. Sy Casillas CO2 [Moles/Vol] 25.7 mmol/L Normal 21.0-32.0 [facility] Comment on above: Performed By: #### C MP, BNP, TSHRFT4 #### [facility] [address] [place] [address] Dr. Sy Casillas Creatinine [Mass/Vol] 1.05 mg/dL Critically high 0.55-1.02 [facility] Comment on above: Performed By: #### C MP, BNP, TSHRFT4 #### [facility] [address] [place] [address] Dr. Sy Casillas EGFR-AF MONEGASQUE >60 Normal >=60 [facility] Comment on above: Performed By: #### C MP, BNP, TSHRFT4 #### [facility] [address] [place] [address] Dr. Sy Casillas EGFR-NON AF MONEGASQUE 50 mL/min/1.73m2 Critically low >=60 [facility] Comment on above: Performed By: #### C MP, BNP, TSHRFT4 #### [facility] [address] [place] [address] Dr. Sy Casillas Globulin (S) [Mass/Vol] 3.3 g/dL Normal [facility] Comment on above: Performed By: #### C MP, BNP, TSHRFT4 #### [facility] [address] [place] [address] Dr. Sy Casillas Glucose [Mass/Vol] 518 mg/dL Critically high 74-106 T [facility] Comment on above: Performed By: #### C MP, BNP, TSHRFT4 #### [facility] [address] [place] [address] Dr. Sy Casillas Potassium [Moles/Vol] 3.2 mmol/L Critically low 3.5-5.1 [facility] Comment on above: Performed By: #### C MP, BNP, TSHRFT4 #### [facility] [address] [place] [address] Dr. Sy Casillas Protein [Mass/Vol] 6.3 g/dL Critically low 6.4-8.2 [facility] Comment on above: Performed By: #### C MP, BNP, TSHRFT4 #### [facility] [address] [place] [address] Dr. Sy Casillas Sodium [Moles/Vol] 129 mmol/L Critically low 136-145 Th [facility] Comment on above: Performed By: #### C MP, BNP, TSHRFT4 #### [facility] [address] [place] [address] Dr. Sy Casillas Urea nitrogen [Mass/Vol] 24.0 mg/dL Critically high 7.0-18.0 [facility] Comment on above: Performed By: #### C MP, BNP, TSHRFT4 #### [facility] [address] [place] [address] Dr. Sy Casillas Urea nitrogen/Creatinin e [Mass ratio] 22.9 mg/mg Normal [facility] Comment on above: Performed By: #### C MP, BNP, TSHRFT4 #### [facility] [address] [place] [address] Dr. Sy Casillas [facility] 53 mm/hr Critically high <=30 [facility] Comment on above: Performed By: #### S EDR #### [facility] [address] [place] [address] Dr. Sy Casillas T4on 11-08-2022 T4 [Mass/Vol] 11.40 ug/dL Normal 4.80-13.90 [facility] Comment on above: Performed By: #### A SSBA #### [facility] [address] [place] [address] Dr. Sy Casillas TROPONIN, HIGH SENSITIVITYon 11-08-2022 HSTROP 10.0 pg/mL Normal 4.0-51.3 [facility] Comment on above: Result Comment: CUT- OFF POINTS HAVE BEEN ESTABLISHED BASED ON THE FOURTH UNIVERSAL DEFINITIONS OF MYOCARDIAL INFARCTION. THE UPPER REFERENCE LIMIT (URL) OF TROPONIN, DEFINED THE 99TH PERCENTILE OF cTnI DISTRIBUTION IN A REFERENCE POPULATION, HAS BEEN CONFIRMED THE DECISION THRESHOLD FOR NM DIAGNOSIS. Performed By: #### C MP, BNP, TSHRFT4 #### [facility] [address] [place] [address] Dr. Sy Casillas TSHon 11-08-2022 TSH 1.031 uIU/mL Normal 0.358-3.740 [facility] Comment on above: Performed By: #### A SSBA #### [facility] [address] [place] [address] Dr. Sy Casillas URINE MICROSCOPIC ONLYon BACTERIA TRACE Abnormal NONE SEEN [facility] Comment on above: Performed By: #### U MICRO, ERUR #### [facility] [address] [place] [address] Dr. Sy Casillas Bacteria identified Cx Nom (U) NOT INDICATED Normal [facility] Comment on above: Performed By: #### U MICRO, ERUR #### [facility] [address] [place] [address] Dr. Sy Casillas CAST NONE SEEN Normal NONE SEEN [facility] Comment on above: Performed By: #### U MICRO, ERUR #### [facility] [address] [place] [address] Dr. Sy Casillas Crystals LM Nom (Urine sed) NONE SEEN Normal NONE SEEN [facility] Comment on above: Performed By: #### U MICRO, ERUR #### [facility] [address] [place] [address] Dr. Sy Casillas Epithelial cells LM Ql (Urine sed) RARE Normal NONE SEEN /RARE [facility] Comment on above: Performed By: #### U MICRO, ERUR #### [facility] [address] [place] [address] Dr. Sy Casillas MUCOUS NONE SEEN Normal NONE SEEN [facility] Comment on above: Performed By: #### U MICRO, ERUR #### [facility] [address] [place] [address] Dr. Sy Casillas RBC 2-5 Abnormal 0-2 [facility] Comment on above: Performed By: #### U MICRO, ERUR #### [facility] [address] [place] [address] Dr. Sy Casillas WBC 2-5 Abnormal NONE SEEN [facility] Comment on above: Performed By: #### U MICRO, ERUR #### [facility] [address] [place] [address] Dr. Sy Casillas XR CHEST 1 Von [...] BYRON QUINTERO Date: 2022-11-08 15:19 Normal [facility] PROF CHEM 8 (BAS METB)on Anion gap [Moles/Vol] 14.2 mmol/L Normal [facility] Comment on above: Performed By: #### C MP, BNP, TSHRFT4 #### [facility] [address] [place] [address] Dr. Sy Casillas Calcium [Mass/Vol] 8.9 mg/dL Normal 8.5-10.1 [facility] Comment on above: Performed By: #### C MP, BNP, TSHRFT4 #### [facility] [address] [address] [address] Sy Casillas Chloride [Moles/Vol] 96 mmol/L Critically low 98-107 [facility] Comment on above: Performed By: #### C MP, BNP, TSHRFT4 #### [facility] [address] [address] [address] Sy Casillas CO2 [Moles/Vol] 29.7 mmol/L Normal 21.0-32.0 [facility] Comment on above: Performed By: #### C MP, BNP, TSHRFT4 #### [facility] [address] [place] [address] Dr. Sy Casillas Creatinine [Mass/Vol] 1.27 mg/dL Critically high 0.55-1.02 [facility] Comment on above: Performed By: #### C MP, BNP, TSHRFT4 #### [facility] [address] [place] [address] Dr. Sy Casillas EGFR-AF MONEGASQUE 49 mL/min/1.73m2 Critically low >=60 [facility] Comment on above: Performed By: #### C MP, BNP, TSHRFT4 #### [facility] [address] [place] [address] Dr. Sy Casillas EGFR-NON AF MONEGASQUE 40 mL/min/1.73m2 Critically low >=60 [facility] Comment on above: Performed By: #### C MP, BNP, TSHRFT4 #### [facility] [address] [place] [address] Dr. Sy Casillas Glucose [Mass/Vol] 526 mg/dL Critically high 74-106 [facility] Comment on above: Performed By: #### C MP, BNP, TSHRFT4 #### [facility] [address] [place] [address] Dr. Sy Casillas Potassium [Moles/Vol] 3.9 mmol/L Normal 3.5-5.1 [facility] Comment on above: Performed By: #### C MP, BNP, TSHRFT4 #### [facility] [address] [address] [address] Sy Casillas Sodium [Moles/Vol] 136 mmol/L Normal 136-145 [facility] Comment on above: Performed By: #### C MP, BNP, TSHRFT4 #### [facility] [address] [address] [address] Sy Casillas Urea nitrogen [Mass/Vol] 24.0 mg/dL Critically high 7.0-18.0 [facility] Comment on above: Performed By: #### C MP, BNP, TSHRFT4 #### [facility] [address] [place] [address] Dr. Sy Casillas Urea nitrogen/Creatinin e [Mass ratio] 18.9 mg/mg Normal [facility] Comment on above: Performed By: #### C MP, BNP, TSHRFT4 #### [facility] [address] [place] [address] Dr. Sy Casillas Orders Onlyon 11-02-2022 Orders Only [id number] Angélica Shen 1940 F Date Provider Department Center 11/02/2022 VIVIANE BOLTON [facility] Family History Problem Relation Age of Onset Coronary artery disease Mother Diabetes Mother Alcohol abuse Father Family Status - Relation Status Age at Mother Father Normal [facility] Telephoneon 11-02-2022 Telephone [id number] Angélica Shen 1940 F Date Provider Department Center 11/02/2022 LEYLA JARRETT [facility] Family History Problem Relation Age of Onset Coronary artery disease Mother Diabetes Mother Alcohol abuse Father Family Status - Relation Status Age at Mother Father Normal [facility] BNPon 11-01-2022 Natriuretic peptide B (Bld) [Mass/Vol] 2503.0 pg/mL Critically high <=1,800.0 [facility] Comment on above: Performed By: #### C MP, BNP, TSHRFT4 #### [facility] [address] [address] [address] Sy Casillas Office Visiton 11-01-2022 Follow-up visit [id number] ShenAngélica [place]inas 1940 F Date Provider Department Center 11/01/2022 Bon6-VIVIANE OTREZ [facility] Family History Problem Relation Age of Onset Coronary artery disease Mother Diabetes Mother Alcohol abuse Father Family Status - Relation Status Age at Mother Father Level of Service:42137 [place] OFFICE/OUTPATIENT ESTABLISHED HIGH MDM 40-54 MIN Reason for Visit and Comments: Coronary Artery Disease [187] Atrial Fibrillation [80] Shortness of Breath [276590] Normal [facility] PROF 14(COMP METB)on 023 Albumin [Mass/Vol] 3.4 g/dL Normal 3.4-5.0 [facility] Comment on above: Performed By: #### C MP, BNP, TSHRFT4 #### [facility] [address] [place] [address] Dr. Sy Casilals Albumin/Globulin [Mass ratio] 1.1 {ratio} Normal [facility] Comment on above: Performed By: #### C MP, BNP, TSHRFT4 #### [facility] [address] [place] [address] Dr. Sy Casillas ALP [Catalytic activity/Vol] 108 U/L Normal 46-116 [facility] Comment on above: Performed By: #### C MP, BNP, TSHRFT4 #### [facility] [address] [place] [address] Dr. Sy Casillas ALT [Catalytic activity/Vol] 44 U/L Normal 14-59 [facility] Comment on above: Performed By: #### C MP, BNP, TSHRFT4 #### [facility] [address] [place] [address] Dr. Sy Casillas Anion gap [Moles/Vol] 14.6 mmol/L Normal [facility] Comment on above: Performed By: #### C MP, BNP, TSHRFT4 #### [facility] [address] [place] [address] Dr. Sy Casillas AST [Catalytic activity/Vol] 14 U/L Critically low 15-37 [facility] Comment on above: Performed By: #### C MP, BNP, TSHRFT4 #### [facility] [address] [address] [address] Sy Casillas Bilirubin [Mass/Vol] 1.5 mg/dL Critically high 0.2-1.0 [facility] Comment on above: Performed By: #### C MP, BNP, TSHRFT4 #### [facility] [address] [place] [address] Dr. Sy Casillas Calcium [Mass/Vol] 9.3 mg/dL Normal 8.5-10.1 [facility] Comment on above: Performed By: #### C MP, BNP, TSHRFT4 #### [facility] [address] [place] [address] Dr. Sy Casillas Chloride [Moles/Vol] 97 mmol/L Critically low 98-107 [facility] Comment on above: Performed By: #### C MP, BNP, TSHRFT4 #### [facility] [address] [place] [address] Dr. Sy Casillas CO2 [Moles/Vol] 28.1 mmol/L Normal 21.0-32.0 [facility] Comment on above: Performed By: #### C MP, BNP, TSHRFT4 #### [facility] [address] [place] [address] Dr. Sy Casillas Creatinine [Mass/Vol] 0.93 mg/dL Normal 0.55-1.02 [facility] Comment on above: Performed By: #### C MP, BNP, TSHRFT4 #### [facility] [address] [place] [address] Dr. Sy Casillas EGFR-AF MONEGASQUE >60 Normal >=60 [facility] Comment on above: Performed By: #### C MP, BNP, TSHRFT4 #### [facility] [address] [place] [address] Dr. Sy Casillas EGFR-NON AF MONEGASQUE 58 mL/min/1.73m2 Critically low >=60 [facility] Comment on above: Performed By: #### C MP, BNP, TSHRFT4 #### [facility] [address] [address] [address] Sy Casillas Globulin (S) [Mass/Vol] 3.1 g/dL Normal [facility] Comment on above: Performed By: #### C MP, BNP, TSHRFT4 #### [facility] [address] [place] [address] Dr. Sy Casillas Glucose [Mass/Vol] 421 mg/dL Critically high 74-106 T [facility] Comment on above: Performed By: #### C MP, BNP, TSHRFT4 #### [facility] [address] [place] [address] Dr. Sy Casillas Potassium [Moles/Vol] 3.7 mmol/L Normal 3.5-5.1 [facility] Comment on above: Performed By: #### C MP, BNP, TSHRFT4 #### [facility] [address] [place] [address] Dr. Sy Casillas Protein [Mass/Vol] 6.5 g/dL Normal 6.4-8.2 [facility] Comment on above: Performed By: #### C MP, BNP, TSHRFT4 #### [facility] [address] [place] [address] Dr. Sy Casillas Sodium [Moles/Vol] 136 mmol/L Normal 136-145 [facility] Comment on above: Performed By: #### C MP, BNP, TSHRFT4 #### [facility] [address] [place] [address] Dr. Sy Casillas Urea nitrogen [Mass/Vol] 26.0 mg/dL Critically high 7.0-18.0 [facility] Comment on above: Performed By: #### C MP, BNP, TSHRFT4 #### [facility] [address] [place] [address] Dr. Sy Casillas Urea nitrogen/Creatinin e [Mass ratio] 28.0 mg/mg Normal [facility] Comment on above: Performed By: #### C MP, BNP, TSHRFT4 #### [facility] [address] [address] [address] Sy Casillas TSH W/ REFLEX TO FT4on 11-01 TSH 0.925 uIU/mL Normal 0.358-3.740 [facility] Comment on above: Performed By: #### C MP, BNP, TSHRFT4 #### [facility] [address] [address] [address] Sy Casillas ECHOCARDIO M/2D COMPLETEon 0 10-18-2022 ECHOCARDIO M/2D COMPLETE Patient: MYRNA SHEN Exam Date: 10/18/2022 : 1940 Gender:F Ordering : DR LEXI PURCELL M.D. Admission #: [id number] Family : DR. DARBY HAMLIN . Order #: [id number] CLICK HERE TO VIEW EXAM ECHOCARDIOGRAM REPORT [...] M.D. on 10/19/2022 at 18:37 Normal [facility] ANTISCLERODERMA ABon 023 Antiscleroderma-70 Antibodies <0.2 Normal 0.0-0.9 [facility] Comment on above: Performed By: #### C MP, BNP, TSHRFT4 #### [facility] [address] [address] [address] Sy Casillas SJOGRENS ANTI-SS-Aon 023 Sjogren's Anti-SS-A <0.2 Normal 0.0-0.9 [facility] Comment on above: Performed By: #### A SSBA #### [facility] [address] [place] [address] Dr. Sy Casillas SJOGR ANTI-SS-Bon 023 Sjogren's Anti-SS-B <0.2 Normal 0.0-0.9 [facility] Comment on above: Performed By: #### A SSBA #### [facility] [address] [place] [address] Dr. Sy Casillas JARAMILLO ANTIBODIESon 3 Jaramillo Antibodies <0.2 Normal 0.0-0.9 [facility] Comment on above: Performed By: #### A SSBA #### [facility] [address] [address] [address] Sy Casillas Office Visiton 09-25-2022 Follow-up visit [id number] Angélica Shen yany [place] 1940 F Date Provider Department Center 09/25/2022 LEXI VILLALTA [facility] Family History Problem Relation Age of Onset Coronary artery disease Mother Diabetes Mother Alcohol abuse Father Family Status - Relation Status Age at Mother Father Level of Service:36656 [place] OFFICE/OUTPATIENT ESTABLISHED MOD MDM 30-39 MIN Reason for Visit and Comments: Coronary Artery Disease [187] Hypertension [330762] Atrial Fibrillation [80] Normal [facility] DARREL by IFAon 09-19-2022 Antinuclear Antibodies, IFA Positive Abnormal [facility] Comment on above: Result Comment: Nega tive <1:80 Borderline 1:80 Positive >1:80 Performed By: #### A SSBA #### [facility] [address] [address] [address] Sy Casillas Centriole Pattern Normal [facility] Comment on above: Performed By: #### A SSBA #### [facility] [address] [address] [address] Sy Casillas Centromere Pattern Normal [facility] Comment on above: Performed By: #### A SSBA #### [facility] [address] [address] [address] Sy Casillas Homogeneous Pattern Normal [facility] Comment on above: Performed By: #### A SSBA #### [facility] [address] [address] [address] Sy Casillas Midbody Pattern Normal [facility] Comment on above: Performed By: #### A SSBA #### [facility] [address] [address] [address] Sy Casillas Note: Comment Normal [facility] Comment on above: Result Comment: For more [...] titers Nucleosomes, Histones Drug-induced SLE Speckled Sm, [employer], SCL-70, SLE,MCTD,PSS (diffuse form), SS-A/SS-B Sjogrens Nucleolar SCL-70, PM-1/SCL High titers Scleroderma, PM/DM Centromere Centromere PSS (limited form) w/Crest syndrome variable Nuclear Dot Sp100,[id number] Primary Biliary Cirrhosis Nuclear GP210, Primary Biliary Cirrhosis Membrane belem A,B,C Performed By: #### A SSBA #### [facility] [address] [address] [address] Sy Casillas Nuclear Dot Pattern Normal [facility] Comment on above: Performed By: #### A SSBA #### [facility] [address] [address] [address] Sy Casillas Nuclear Membrane Pattern Normal [facility] Comment on above: Performed By: #### A SSBA #### [facility] [address] [place] [address] Dr. Sy Casillas Nucleolar Pattern Normal [facility] Comment on above: Performed By: #### A SSBA #### [facility] [address] [address] [address] Sy Casillas PCNA Pattern Normal [facility] Comment on above: Performed By: #### A SSBA #### [facility] [address] [address] [address] Sy Casillas Speckled Pattern 1:320 Critically high [facility] Comment on above: Result Comment: Dens e Fine Speckled pattern is noted. This pattern suggests the presence of DFS70 antibody which has a low prevalence in systemic autoimmune rheumatic diseases. ICAP nomenclature: AC-2,4,5,29 Performed By: #### A SSBA #### [facility] [address] [place] [address] Dr. Sy Casillas Spindle Apparatus Pattern Normal [facility] Comment on above: Performed By: #### A SSBA #### [facility] [address] [place] [address] Dr. Sy Casillas BNPon 09-15-2022 Natriuretic peptide B (Bld) [Mass/Vol] 1243.0 pg/mL Normal <=1,800.0 [facility] Comment on above: Performed By: #### C MP, BNP, TSHRFT4 #### [facility] [address] [place] [address] Dr. Sy Casillas CBC AUTO DIFFon 09-15-2022 BASO # 0.1 103/ul Normal 0.0-0.1 [facility] Comment on above: Performed By: #### C MP, BNP, TSHRFT4 #### [facility] [address] [place] [address] Dr. Sy Casillas Basophils/100 WBC (Bld) 0.8 % Normal 0.2-2.0 [facility] Comment on above: Performed By: #### C MP, BNP, TSHRFT4 #### [facility] [address] [place] [address] Dr. Sy Casillas EO # 0.1 103/ul Normal 0.0-0.7 [facility] Comment on above: Performed By: #### C MP, BNP, TSHRFT4 #### [facility] [address] [place] [address] Dr. Sy Casillas Eosinophils/100 WBC (Bld) 0.5 % Critically low 0.9-7.0 [facility] Comment on above: Performed By: #### C MP, BNP, TSHRFT4 #### [facility] [address] [place] [address] Dr. Sy Casillas Erythrocyte distribution width (RBC) [Ratio] 18.5 % Critically high 11.0-15.0 [facility] Comment on above: Performed By: #### C MP, BNP, TSHRFT4 #### [facility] [address] [place] [address] Dr. Sy Casillas Hematocrit (Bld) [Volume fraction] 42.9 % Normal 36.0-48.0 [facility] Comment on above: Performed By: #### C MP, BNP, TSHRFT4 #### [facility] [address] [place], [place] [address] Dr. Sy Casillas Hemoglobin (Bld) [Mass/Vol] 13.3 g/dL Normal 12.0-16.0 [facility] Comment on above: Performed By: #### C MP, BNP, TSHRFT4 #### [facility] [address] [place] [address] Dr. Sy Casillas IG # 0.19 10e3/ul Critically high 0.00-0.03 [facility] Comment on above: Performed By: #### C MP, BNP, TSHRFT4 #### [facility] [address] [place] [address] Dr. Sy Casillas IG % 1.4 % Critically high 0.0-0.5 [facility] Comment on above: Performed By: #### C MP, BNP, TSHRFT4 #### [facility] [address] [place] [address] Dr. Sy Casillas LYMPH # 1.1 103/ul Critically low 1.2-3.8 [facility] Comment on above: Performed By: #### C MP, BNP, TSHRFT4 #### [facility] [address] [place] [address] Dr. Sy Casillas Lymphocytes/100 WBC (Bld) 8.4 % Critically low 20.5-60.0 [facility] Comment on above: Performed By: #### C MP, BNP, TSHRFT4 #### [facility] [address] [place] [address] Dr. Sy Casillas MANUAL DIFF REQ NO Normal [facility] Comment on above: Performed By: #### C MP, BNP, TSHRFT4 #### [facility] [address] [place] [address] Dr. Sy Casillas MCH (RBC) [Entitic mass] 24.5 pg Critically low 26.7-34.0 [facility] Comment on above: Performed By: #### C MP, BNP, TSHRFT4 #### [facility] [address] [place] [address] Dr. Sy Casillas MCHC (RBC) [Mass/Vol] 31.0 g/dL Normal 29.9-35.2 [facility] Comment on above: Performed By: #### C MP, BNP, TSHRFT4 #### [facility] [address] [place] [address] Dr. Sy Casillas MCV (RBC) [Entitic vol] 79.0 fL Critically low 81.0-99.0 [facility] Comment on above: Performed By: #### C MP, BNP, TSHRFT4 #### [facility] [address] [place] [address] Dr. Sy Casillas MONO # 0.7 103/ul Normal 0.3-0.8 [facility] Comment on above: Performed By: #### C MP, BNP, TSHRFT4 #### [facility] [address] [place] [address] Dr. Sy Casillas Monocytes/100 WBC (Bld) 5.0 % Normal 1.7-12.0 [facility] Comment on above: Performed By: #### C MP, BNP, TSHRFT4 #### [facility] [address] [place] [address] Dr. Sy Casillas NEUT # 11.0 103/ul Critically high 1.4-6.5 [facility] Comment on above: Performed By: #### C MP, BNP, TSHRFT4 #### [facility] [address] [place] [address] Dr. Sy Casillas Neutrophils/100 WBC (Bld) 83.9 % Critically high 43.0-75.0 [facility] Comment on above: Performed By: #### C MP, BNP, TSHRFT4 #### [facility] [address] [place] [address] Dr. Sy Casillas Platelet mean volume (Bld) [Entitic vol] 10.3 fL Normal 9.5-13.5 [facility] Comment on above: Performed By: #### C MP, BNP, TSHRFT4 #### [facility] [address] [place] [address] Dr. Sy Casillas PLT 212 103/ul Normal 150-450 [facility] Comment on above: Performed By: #### C MP, BNP, TSHRFT4 #### [facility] [address] [place] [address] Dr. Sy Casillas RBC 5.43 106/ul Critically high 4.20-5.40 [facility] Comment on above: Performed By: #### C MP, BNP, TSHRFT4 #### [facility] [address] [address] [address] yS Casillas WBC 13.1 103/ul Critically high 4.0-11.0 [facility] Comment on above: Performed By: #### C MP, BNP, TSHRFT4 #### [facility] [address] [address] [address] Sy Casillas LIPID PROFILEon 09-15-2022 CHOL-HDL RATIO NORM SEE BELOW Normal [facility] Comment on above: Result Comment: 3.3 - 4.4 LOW RISK 4.4 - 7.1 AVERAGE RISK 7.1 - 11.0 MODERATE RISK >11.0 HIGH RISK Performed By: #### C MP, BNP, TSHRFT4 #### [facility] [address] [address] [address] Sy Casillas Cholesterol [Mass/Vol] 147 mg/dL Normal <=200 [facility] Comment on above: Performed By: #### C MP, BNP, TSHRFT4 #### [facility] [address] [address] [address] Sy Casillas Cholesterol in HDL [Mass/Vol] 53 mg/dL Normal 40-60 [facility] Comment on above: Performed By: #### C MP, BNP, TSHRFT4 #### [facility] [address] [address] [address] Sy Casillas Cholesterol in LDL [Mass/Vol] 84.2 mg/dL Normal [facility] Comment on above: Performed By: #### C MP, BNP, TSHRFT4 #### [facility] [address] [address] [address] Sy Casillas Cholesterol.total/ Cholesterol in HDL [Mass ratio] 2.8 {ratio} Normal [facility] Comment on above: Performed By: #### C MP, BNP, TSHRFT4 #### [facility] [address] [address] [address] Sy Casillas HDL NORMAL > or = 60 mg/dl - LO W CARDIOVASCULAR RISK <40 mg/dl - HIGH CARDIOVASCULAR RISK Normal [facility] Comment on above: Performed By: #### C MP, BNP, TSHRFT4 #### [facility] [address] [address] [address] Sy Casillas LDL CALC NORMAL SEE BELOW Normal [facility] Comment on above: Result Comment: <100 mg/dl OPTIMAL 100 - 129 mg/dl NEAR OR ABOVE OPTIMAL 130 - 159 mg/dl BORDERLINE HIGH 160 - 189 mg/dl HIGH >190 mg/dl VERY HIGH Performed By: #### C MP, BNP, TSHRFT4 #### [facility] [address] [address] [address] Sy Casillas Triglyceride [Mass/Vol] 49 mg/dL Normal <=150 [facility] Comment on above: Performed By: #### C MP, BNP, TSHRFT4 #### [facility] [address] [address] [address] Sy Casillas VLDL CALC 9.8 mg/dL Normal [facility] Comment on above: Performed By: #### C MP, BNP, TSHRFT4 #### [facility] [address] [place] [address] Dr. Sy Casillas PROF 14(COMP METB)on 023 Albumin [Mass/Vol] 4.0 g/dL Normal 3.4-5.0 [facility] Comment on above: Performed By: #### C MP, BNP, TSHRFT4 #### [facility] [address] [address] [address] Sy Casillas Albumin/Globulin [Mass ratio] 1.3 {ratio} Normal [facility] Comment on above: Performed By: #### C MP, BNP, TSHRFT4 #### [facility] [address] [address] [address] Sy Casillas ALP [Catalytic activity/Vol] 99 U/L Normal 46-116 [facility] Comment on above: Performed By: #### C MP, BNP, TSHRFT4 #### [facility] [address] [address] [address] Sy Casillas ALT [Catalytic activity/Vol] 20 U/L Normal 14-59 [facility] Comment on above: Performed By: #### C MP, BNP, TSHRFT4 #### [facility] [address] [address] [address] Sy Casillas Anion gap [Moles/Vol] 13.3 mmol/L Normal [facility] Comment on above: Performed By: #### C MP, BNP, TSHRFT4 #### [facility] [address] [place] [address] Dr. Sy Casillas AST [Catalytic activity/Vol] 13 U/L Critically low 15-37 [facility] Comment on above: Performed By: #### C MP, BNP, TSHRFT4 #### [facility] [address] [place] [address] Dr. Sy Casillas Bilirubin [Mass/Vol] 0.6 mg/dL Normal 0.2-1.0 [facility] Comment on above: Performed By: #### C MP, BNP, TSHRFT4 #### [facility] [address] [place] [address] Dr. Sy Casillas Calcium [Mass/Vol] 9.7 mg/dL Normal 8.5-10.1 [facility] Comment on above: Performed By: #### C MP, BNP, TSHRFT4 #### [facility] [address] [place] [address] Dr. Sy Casillas Chloride [Moles/Vol] 107 mmol/L Normal 98-107 [facility] Comment on above: Performed By: #### C MP, BNP, TSHRFT4 #### [facility] [address] [place] [address] Dr. Sy Casillas CO2 [Moles/Vol] 29.0 mmol/L Normal 21.0-32.0 [facility] Comment on above: Performed By: #### C MP, BNP, TSHRFT4 #### [facility] [address] [place] [address] Dr. Sy Casillas Creatinine [Mass/Vol] 0.65 mg/dL Normal 0.55-1.02 [facility] Comment on above: Performed By: #### C MP, BNP, TSHRFT4 #### [facility] [address] [address] [address] Sy Casillas EGFR-AF MONEGASQUE >60 Normal >=60 [facility] Comment on above: Performed By: #### C MP, BNP, TSHRFT4 #### [facility] [address] [address] [address] Sy Casillas EGFR-NON AF MONEGASQUE >60 Normal >=60 [facility] Comment on above: Performed By: #### C MP, BNP, TSHRFT4 #### [facility] [address] [address] [address] Sy Casillas Globulin (S) [Mass/Vol] 3.1 g/dL Normal [facility] Comment on above: Performed By: #### C MP, BNP, TSHRFT4 #### [facility] [address] [address] [address] Sy Casillas Glucose [Mass/Vol] 149 mg/dL Critically high 74-106 [facility] Comment on above: Performed By: #### C MP, BNP, TSHRFT4 #### [facility] [address] [address] [address] Sy Casillas Potassium [Moles/Vol] 4.3 mmol/L Normal 3.5-5.1 [facility] Comment on above: Performed By: #### C MP, BNP, TSHRFT4 #### [facility] [address] [address] [address] Sy Casillas Protein [Mass/Vol] 7.1 g/dL Normal 6.4-8.2 [facility] Comment on above: Performed By: #### C MP, BNP, TSHRFT4 #### [facility] [address] [address] [address] Sy Casillas Sodium [Moles/Vol] 145 mmol/L Normal 136-145 [facility] Comment on above: Performed By: #### C MP, BNP, TSHRFT4 #### [facility] [address] [address] [address] Sy Casillas Urea nitrogen [Mass/Vol] 19.0 mg/dL Critically high 7.0-18.0 [facility] Comment on above: Performed By: #### C MP, BNP, TSHRFT4 #### [facility] [address] [place], [place] [address] Dr. Sy Casillas Urea nitrogen/Creatinin e [Mass ratio] 29.2 mg/mg Normal [facility] Comment on above: Performed By: #### C MP, BNP, TSHRFT4 #### [facility] [address] [address] [address] Sy Casillas Office Visiton 06-20-2022 Follow-up visit [id number] Angélica Shen 1940 F Date Provider Department Center 06/20/2022 VIVIANE BOLTON [facility] Family History Problem Relation Age of Onset Coronary artery disease Mother Diabetes Mother Alcohol abuse Father Family Status - Relation Status Age at Mother Father Level of Service:31861 [place] OFFICE/OUTPATIENT ESTABLISHED LOW MDM 20-29 MIN Reason for Visit and Comments: Coronary Artery Disease [187] Atrial Fibrillation [80] Hypertension [669162] Normal [facility] Encounters Encounter Date Encounter Type Care Provider Facility Start: 12-20-2023 End: 12-20-2023 ambulatory Ana Bill MD Work Phone: Hematology/Oncology Comment on above: 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); Pancytopenia (HCC); Immunocompromised (HCC) Start: 12-20-2023 End: 12-20-2023 Telemedicine consultation with patient Ana Bill MD Work Phone: Hematology/Oncology Start: 11-22-2023 Telephone encounter Ana Bill MD Work Phone: Hematology/Oncology Comment on above: 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 ) Start: 11-20-2023 End: 11-20-2023 ambulatory Aneta Krueger Facility:[facility] Start: 11-20-2023 End: 11-20-2023 Departed Referred [facility] Start: 11-19-2023 End: 11-19-2023 Specialty Pharmacy Flory Blackburn [facility] Comment on above: SPP Oral Oncology/he matology - Medication Refill (Imatinib 400mg) 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); Pancytopenia (HCC); Immunocompromised (HCC); Coronary artery disease without angina pectoris, unspecified vessel or lesion type, unspecified whether wilton or transplanted heart Start: 10-29-2023 Telephone encounter Ana Bill MD Work Phone: Hematology/Oncology Comment on above: 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 (Medication Received) Start: 10-18-2023 End: 10-18-2023 ambulatory Ana Bill MD Work Phone: Hematology/Oncology Comment on above: 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); Pancytopenia (HCC); Atrial fibrillation, unspecified type (HCC); Coronary artery disease without angina pectoris, unspecified vessel or lesion type, unspecified whether wilton or transplanted heart; Immunocompromised (HCC) Start: 10-18-2023 End: 10-18-2023 Telemedicine consultation with patient Ana Bill MD Work Phone: [facility] Start: 10-02-2023 Telephone encounter Lachelle Reyez Work Phone: Hematology/Oncology Comment on above: Opened In Error (sen t on incorrect pt ) Start: 10-01-2023 End: 10-12-2023 ambulatory MD Darby Hamlin Facility:CD:[id number] Start: 09-26-2023 Refill Lamberto morris MD, PhD Work Phone: Hematology/Oncology Comment on above: Refill Request SPP Oral Oncology/he matology - Medication Refill (Venclexta) Start: 09-20-2023 ambulatory Denver Calle [facility] Start: 09-20-2023 Chart abstracting Latosha Austin Research Coordinator Work Phone: Hematology/Oncology Comment on above: Research (IRB 5024: Collection of Blood & Bone Marrow from Normal [employer] for Research Purposes) Refill Request Start: 09-20-2023 Patient encounter procedure Denver Calle [facility] Comment on above: SPP Oral Oncology/he matology - Treatment Referral (Venclexta); Insurance Authorization ([place] Not Required) Start: 09-20-2023 Telephone encounter Krista Auguste Hem atology/Oncology Comment on above: Medication Assistanc e Program ([facility] PATIENT PROGRAM; APPROVED FOR DATES: 09/20/2023 - 07/15/2024) Start: 09-20-2023 Evaluation and management of inpatient SUDROSEANNAO JERICHO Facility:[facility] Start: 09-19-2023 End: 09-20-2023 ambulatory MD Darby Hamlin Facility:[facility] Start: 09-18-2023 End: 09-18-2023 ambulatory NON STAFF Facility:[facility] Start: 09-18-2023 End: 09-18-2023 Departed Referred [facility] Start: 09-18-2023 End: 09-19-2023 ambulatory MD Darby Hamlin Facility:[facility] [place] Start: 08-31-2023 End: 09-01-2023 ambulatory MACHINE ATTENDANT Aurea L Jose Facility:[facility] Start: 08-31-2023 End: 08-31-2023 Lab Drop off Aurea L Jose [facility] Start: 07-18-2023 ambulatory MD Darby Hamlin Facil ity:[facility] Start: 04-27-2023 End: 04-27-2023 ambulatory [facility] Start: 03-28-2023 ambulatory MD Darby Hamlin Facil ity:[facility] [place] Start: 03-02-2023 End: 03-02-2023 ambulatory [facility] Start: 12-27-2022 End: 12-28-2022 ambulatory MD Darby Hamlin Facility:[facility] Start: 12-19-2022 End: 12-20-2022 ambulatory MD Darby Hamlin Facility:[facility] Start: 12-19-2022 End: 12-19-2022 Lab Drop off Darby Hamlin [facility] Start: 12-12-2022 End: 12-13-2022 ambulatory MD Darby Hamlin Facility:[facility] Start: 12-12-2022 End: 12-12-2022 Lab Drop off Darby Hamlin [facility] Start: 11-14-2022 [facility] Start: 11-08-2022 End: 11-09-[address] RORY WEST . Facility:[facility] Start: 11-06-2022 End: 11-07-2022 ambulatory DARBY HAMLIN Facility:[facility] Start: 11-01-2022 End: 11-02-2022 ambulatory DARBY HAMLIN Facility:[facility] Start: 11-01-2022 End: 11-01-2022 ambulatory [facility] Start: 10-18-2022 End: 10-19-2022 ambulatory DARBY HAMLIN Facility:[facility] Start: 10-04-2022 End: 10-05-2022 ambulatory DARBY HAMLIN Facility:[facility] Start: 09-25-2022 End: 09-25-2022 ambulatory [facility] Start: 09-15-2022 End: 09-16-[address] DOCTOR PÉREZ Facility:[facility] Start: 09-13-2022 End: 09-13-2022 ambulatory PEYTON Villanueva Work Phone: [facility] Work Phone: Start: 09-13-2022 End: 09-13-2022 Departed Referred PEYTON Villanueva Work Phone: [facility] [place] Work Phone: Start: 07-17-[address] ANA ROSA REDDING . Facil ity:[facility] Start: 06-20-2022 End: 06-20-2022 ambulatory VIVIANE [facility] Procedures Date Procedure Procedure Detail Performing Clinician Start: 09-28-2023 Antibody screen SHAZIA STEWART Comment on above: Order Comment: Speci men Type: BLOOD SPECIMENOrdering Facility: [facility] Address: [address] [place] [address] Performed By: #### T SCR ####[facility] BLOOD BANKCLIA [id number] [address] Start: 09-24-2023 Antibody screen SHAZIA STEWART Comment on above: Order Comment: Speci men Type: BLOOD SPECIMENOrdering Facility: [facility] Address: [address] [place] [address] Performed By: #### T SCR ####[facility] BLOOD BANKCLIA [id number] [address] [place] Start: 09-21-2023 Echocardiography SHAZIA SALEH Start: 09-20-2023 Antibody screen SHAZIA STEWART Comment on above: Order Comment: Speci men Type: BLOOD SPECIMENOrdering Facility: [facility] Address: [address] [place] [address] Performed By: #### B ELISA PENALOZA ####[facility] BLOOD BANKCLIA [id number] [address] [place]#### BBRABI ####[facility] LABCLIA [id number] [place] [address] [place] Coronary artery bypass graft Darby Hamlin Comment on above: 2015 Plan of Treatment Date Care Activity Detail Author Start: 03-22-2024 Hemoglobin A1c measurement HbA1C [facility] Start: 03-16-2024 Influenza vaccination Influenz a Vaccine (Season Ended) [facility] Start: 12-21-2023 End: 12-21-2023 Specialty Pharmacy [facility] Comment on above: Refill - Imatinib (3 0DS) - Call daughter (Yuli) Refill - Imatinib (3 0DS) - Call daughter (Yuli) ask the rph - imatninb was stopped on 12/02 not resuming? Start: 12-17-2023 End: 12-17-2023 Specialty Pharmacy 12/17/2023 9:00 AM EDT Specialty Pharmacy [facility] [id number] [facility] [id number] [place] [address] Pharmacist, [facility] [phone] [facility] [place] [address] Refill - Imatinib (30DS) - Call daughter (Yuli) [facility] Comment on above: Refill - Imatinib (3 0DS) - Call daughter (Yuli) Start: 07-16-2023 Advance Directive Discussion Advance Directive Discussion [facility] Start: 07-16-2023 Behavioral Health Screening Behavioral Health Screening [facility] Start: 07-16-2023 Depression Assessment Depression Ass essment [facility] Start: 03-16-2023 Influenza vaccination Influenza Vacc ine (#1) [facility] Start: 09-13-2022 Superficial Wound Culture Superficial Wound Culture [facility] Start: 10-15-2020 Covid-19 Vaccine (3 - Moderna risk series) Covid-19 Vaccine (3 - Moderna risk series) [facility] Start: 2007 Screening for osteoporosis Bone Density Screening [facility] Start: 2002 RSV Vaccine (1 - 1-d ose 60+ series) RSV Vaccine (1 - 1-dose 60+ series) [facility] Start: 1961 Shingrix Vaccine (1 of 2) Shingrix Vaccine (1 of 2) [facility] Start: 1961 Urine microalbumin profile DTaP,Tdap,Td Vaccine (1 - Tdap) [facility] Start: 1960 Hepatitis B surface antibody level LDL Cholesterol [facility] Start: 1952 Diabetic foot examination Diabetic Foot Exam [facility] Start: 1952 Glaucoma screening Dilated Retinal E xam [facility] Start: 1952 Hepatitis B screening Urine Al bumin:Creatinine Ratio [facility] Start: 1948 Pneumococcal Vaccine : 65+ (1 of 2 - PCV) Pneumococcal Vaccine: 65+ (1 of 2 - PCV) [facility] Start: 1947 Hemoglobin A1c measurement [facility] Immunizations Immunization Date Immunization Notes Care Provider Edgardo longo 09-17-2020 SARS-CoV-2 (COVID-19 ) mRNA-1273 vaccine Darby Hamlin [facility] 08-20-2020 SARS-CoV-2 (COVID-19 ) mRNA-1273 vaccine Darby Hamlin [facility] Payers Date Payer Category Payer Medicare [id number] 2023 Medicare [id number] 1957 Medicare [id number] 1959 Self-pay 1940 Unknown [id number] 2.16.840.1.773738.3.579.2 .593 1942 Unknown [id number] 2.16.840.1.409028.3.579.2 .593 1942 Unknown [id number] 2.16.840.1.740738.3.579.2 .593 1942 Unknown [id number] 2.16.840.1.919665.3.579.2 .593 1942 Unknown [id number] 2.16.840.1.523638.3.579.2 .593 1942 Unknown [id number] 2.16.840.1.900713.3.579.2 .593 1942 Unknown [id number] 2.16.840.1.046045.3.579.2 .593 1942 Unknown [id number] 2.16.840.1.494199.3.579.2 .593 1942 Unknown [id number] 2.16.840.1.721164.3.579.2 .727 1942 Unknown [id number] 2.16.840.1.164797.3.579.2 .727 1942 Unknown [id number] 2.16.840.1.223421.3.579.2 .727 1942 Unknown [id number] 2.16.840.1.139845.3.579.2 .727 1942 Unknown [id number] 2.16.840.1.949334.3.579.2 .727 1942 Unknown [id number] 2.16.840.1.087038.3.579.2 .727 1942 Unknown [id number] 2.16.840.1.908535.3.579.2 .727 1942 Unknown [id number] 2.16.840.1.966006.3.579.2 .727 1942 Unknown [id number] 2.16.840.1.389021.3.579.2 .727 1942 Unknown [id number] 2.16.840.1.237470.3.579.2 .727 1942 Unknown [id number] 2.16.840.1.870409.3.579.2 .727 Private Health Insurance [facility] [id number] Unknown [id number] 2.16.840.1.156674.3.579.2 .531 Unknown [id number] 2.16.840.1.654820.3.579.2 .531 Social History Date Type Detail Facility Tobacco smoking stat [facility] Unknown if ever smoked [facility] Work Phone: Start: 1940 Sex Assigned At Female F [facility] Start: 12-12-2022 End: 08-31-2023 Tobacco smoking status [facility]: denies Tobacco smoking status Never [facility] Comment on above: denies Start: 03-02-2022 End: 12-20-2023 Sex Assigned At Female [facility] Start: 07-03-2012 Tobacco smoking stat us NHIS Ex-smoker [facility] End: 07-03-1962 History of tobacco use Current smoker [facility] End: 07-03-1962 History of tobacco use Cigarette Smoker [facility] Start: 07-03-2012 Tobacco use and exposure Smokeless tobacco non-user [facility] Start: 03-02-2022 End: 09-26-2023 Alcohol intake Current drinker of alcohol (finding) [facility] Start: 03-02-2022 End: 12-20-2023 History of Social function [facility] Start: 1940 Sex Assigned At Not on file C [facility] Start: 10-18-2023 Gender identity Identifies as female gender (finding) [facility] Medical Equipment Procedure Code Equipment Code Equipment Origin al Text Equipment Identifier Dates Test strips, See Instructions, 100 EA, 3, check Blood sugar daily and prn E11.9, [facility] [id number], Supply, 162, cm, 12/12/22 14:53:00 EDT, Height/Length [...] visit. Either the patient or their legal service liaison representative has been informed of the risks and benefits of -- and alternatives to -- treatment through a remote evaluation and consents to proceed with the evaluation remotely. The [facility] Department of Hematology and Medical Oncology Leukemia Program Myrna Shen ID: [id number] 12/20/2023 PRIMARY ONCOLOGIST: Aneta Krueger MD PRIMARY [...] Diagnosis Date Hypertension Allergies: ALLERGIES Allergen Reactions Bucklin Fruits Intolerance Surgical History: PAST SURGICAL HISTORY [...] Lymph 1.00 - 4.00 k/uL 0.60 Abs Hampton <0.87 k/uL 0.01 Abs Eosin <0.46 k/uL [...] 09/20/23 1133 Result status: Final Resulting lab: [facility] Value: Laboratory Accession Number: [id number] Doctor: Shazia Saleh Pathologist: N/A Surgical Pathology [...] which included preparing to see the patient, [id number] patient care, completing clinical documentation, obtaining and/or reviewing separately obtained history, performing a medically appropriate examination, counseling and educating the patient/family/caregiver, ordering medications, tests, or procedures, and communicating with other HCPs (not separately reported). Ana Bill MD Hematology and Medical Oncology, Leukemia Division 12/20/2023 8:52 AM Pager - [phone] cc: Aneta Krueger MD [place] documented in this encounter [facility] 12-20-2023 Note [facility] 11-23-2023 Telephone encounter Note Call to Yuli to [employer], she states her mother is scheduled to receive platelets at 1pm today. No further action needed. Delilah Garcia RN November 23, 2023 10:23 AM [facility] Work Phone: 11-23-2023 Miscellaneous Notes Call to Yuli to [employer], she states her mother is scheduled to receive platelets at 1pm today. No further action needed. Delilah Garcia RN November 23, 2023 10:23 AM Called and spoke with patient's daughter, Yuli, she is in touch with the local cancer center, [place], to try to get her mother an appointment for platelets today. She will callback if the center needs a physician's approval to give platelets. Myrna Shen('s) daughter: Yuli is calling Ana Bill MD today regarding Green House Manager - Other (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 to 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 from 17 to 11 48 hours ) Patient daughter stated she is scheduled for platlets on Sunday but they're concerned she wont be able to make it through the weekend. Patient has been identified by name and birthdate. Duration of symptoms: 2 days Requesting response back: call Home [phone] (home) [phone] (work) Janki Ellison November 22, 2023 documented in this encounter [facility] 11-23-2023 Telephone encounter Note Called and spoke with patient's daughter, Yuli, she is in touch with the local cancer center, [place], to try to get her mother an appointment for platelets today. She will callback if the center needs a physician's approval to give platelets. [facility] 11-22-2023 Telephone encounter Note Myrna Shen('s) daughter: Yuli is calling Ana Bill MD today regarding Green House Manager - Other (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 to 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 from 17 to 11 48 hours ) Patient daughter stated she is scheduled for platlets on Sunday but they're concerned she wont be able to make it through the weekend. Patient has been identified by name and birthdate. Duration of symptoms: 2 days Requesting response back: call Home [phone] (home) [phone] (work) Janki Ellison November 22, 2023 [facility] 11-19-2023 History of Present illness Narrative Images from the original note were not included. This visit was conducted as a virtual visit. I have communicated my name and active licensure. The patient's identity and physical location were verified at the time of this visit. Either the patient or their legal service liaison representative has been informed of the risks and benefits of -- and alternatives to -- treatment through a remote evaluation and consents to proceed with the evaluation remotely. [facility] Department of Hematology and Medical Oncology Leukemia Program Myrna Shen ID: [id number] 11/19/2023 PRIMARY ONCOLOGIST: Aneta Krueger MD PRIMARY [...] Diagnosis Date Hypertension Allergies: ALLERGIES Allergen Reactions Bucklin Fruits Intolerance Surgical History: PAST SURGICAL HISTORY [...] Lymph 1.00 - 4.00 k/uL 0.60 Abs [place] <0.87 k/uL 0.01 Abs Eosin <0.46 k/uL [...] 09/20/23 1133 Result status: Final Resulting lab: [facility] Value: Laboratory Accession Number: [id number] Doctor: Shazia Saleh Pathologist: N/A Surgical Pathology [...] which included preparing to see the patient, [id number] patient care, completing clinical documentation, obtaining and/or reviewing separately obtained history, performing a medically appropriate examination, counseling and educating the patient/family/caregiver, ordering medications, tests, or procedures, and communicating with other HCPs (not separately reported). Ana Bill MD Hematology and Medical Oncology, Leukemia Division 11/19/2023 3:34 PM Pager - [phone] cc: Aneta Krueger MD [place] documented in this encounter [facility] 11-19-2023 Note [facility] 11-19-2023 History of Present illness Narrative [facility] [...] laboratory parameters, disease state markers and outcomes. Sql Server Developer Assessment Patient confirmed: Yes Med/dose confirmed: Yes Supplies needed: No supplies needed Missed doses: No Estimated days supply on hand: 10 Copay amount: 0 Delivery method: FedEx Signature required: Waived on patient request Delivery address: [address] [place] [address] Delivery date: 11/22/23 Questions or concerns for [...] facility-administered medications on file prior to visit. [facility] Visit Assessment - Hematology/Oncology: Assessment [...] 8.1, Plt 8, ANC 0.49 - BCR/ABL: [place] chromosome identified per 10/18/23 DH note - LFTs: ALT 21, AST 16, T.bili 0.6 - CrCl: 89.91 (Adj BW 62.3 kg) - HBV Panel: negative on 09/20/23 Estimated Start Date Info: Per the discretion of Dr. Bill. Estimated Treatment Duration: Until disease progression or unacceptable toxicity. Gloria Wu documented in this encounter [facility] 11-19-2023 Note [facility] 10-30-2023 Miscellaneous Notes Discussed with patients daughter and with Dr. Krueger - start taking imatinib today and continue weekly lab checks. Ana Bill MD Myrna Shen daughter: Yuli is calling Ana Bill MD today regarding Green House Manager - Other (Medication Received) Yuli calling to inform office that imatinib has been delivered. States she was informed to call office when they received medication to go over instructions. Requesting response back: [phone] (home) [phone] (work) Duration of symptoms: N/A Patient has been identified by name and birthdate. Romana Tripp October 29, 2023 documented in this encounter [facility] 10-19-2023 Note [facility] 10-19-2023 Note [facility] 10-18-2023 History of Present illness Narrative Images from the original note were not included. [facility] Department of Hematology and Medical Oncology Leukemia Program Myrna Shen ID: [id number] 10/18/2023 REFERRING PHYSICIAN: Shazia Saleh [address] [facility] [address] PRIMARY CARE PHYSICIAN: Ana Rosa Redding MD [...] Diagnosis Date Hypertension Allergies: ALLERGIES Allergen Reactions Bucklin Fruits Intolerance Surgical History: PAST SURGICAL HISTORY [...] Lymph 1.00 - 4.00 k/uL 0.60 Abs [place] <0.87 k/uL 0.01 Abs Eosin <0.46 k/uL [...] 09/20/23 1133 Result status: Final Resulting lab: [facility] Value: Laboratory Accession Number: [id number] Doctor: Shazia Saleh Pathologist: N/A Surgical Pathology [...] which included preparing to see the patient, [id number]-tbdv patient care, completing clinical documentation, obtaining and/or [...] Leukemia Division 10/18/2023 3:27 PM Pager - [phone] cc: Shazia Saleh [id number] [facility] [address] Ana Rosa Redding MD [address] [facility] [address] MD Gladys Glass documented in this encounter [facility] 10-18-2023 Note [facility] 10-12-2023 Note [facility] 10-12-2023 Note [facility] 10-02-2023 Miscellaneous Notes securemessage to Dr Pedraza and Myrna Justice [phone] stone not been scheduled at for a PET scan and we have no order in [facility] for the requested PET scan. Please enter the order into [facility] for scheduling. Thank you in advance. 10-02-23 [...] ONLY. Is this request for a [facility] [place] PET scan appointment? Yes: Fire Extinguisher Technician: Vinh Randolph Requesting Person (Last Name, First Name): myrna shen Area Code + Phone/Pager: [phone] home , work Who do we call [...] COORD REVIEW [facility] documented in this encounter [facility] 09-28-2023 Note [facility] 09-27-2023 Note [facility] 09-26-2023 History of Present illness Narrative [facility] [...] laboratory parameters, disease state markers and outcomes. Sql Server Developer Assessment Patient confirmed: Yes Med/dose confirmed: Yes Supplies needed: No supplies needed Estimated days supply on hand: 2 Copay amount: 0 Payment confirmed: Yes Delivery method: Block Sawyer Signature required: Required ([employer], Medicaid, patient preference) Delivery address: [place] [address] [facility] Delivery date: 09/27/23 Questions or concerns for the pharmacist?: No [facility] Visit Assessment - Hematology/Oncology: Assessment [...] and water, swallowed whole - No grapefruit, [place] oranges, or star fruit - If a [...] Denver Calle RPh documented in this encounter [facility] 09-26-2023 Note [facility] 09-26-2023 Note [facility] 09-25-2023 Note [facility] 09-24-2023 Note [facility] 09-23-2023 Note [facility] 09-22-2023 Note [facility] 09-22-2023 Note HNO ID: [id number] Author: NOTE, INTERFACE, ? Service: ? Author Type: ? Type: Progress Notes Filed: 09/22/2023 03:36 Note Text: Epic Scheduled Downtime: 09/22/2023 1:00:00 AM to 09/22/2023 3:24:00 AM [facility] 09-21-2023 Note [phone] [id number] [facility] 09-21-2023 Note [facility] 09-21-2023 Note [facility] 09-20-2023 Note HNO ID: [id number] Author: ?, ?, ? Service: ? Author Type: ? Type: Progress Notes Filed: 09/21/2023 07:13 Note Text: Patient has been enrolled in a new $15248 yoli for Dx: AML through [employer] 08/21/2023 to 08/20/2024. [facility] 09-20-2023 Note [facility] 09-20-2023 Note [facility] 09-20-2023 Miscellaneous Notes THE [facility] PATIENT ASSISTANCE FORM FOR POSACONAZOLE WAS COMPLETED AND FAXED TO: [phone] FOR CONSIDERATION. RECEIVED CALL FROM INÉS AT [facility] PATIENT PROGRAM ADVISING THE PATIENT HAS BEEN APPROVED FOR ASSISTANCE WITH POSACONAZOLE, AT NO COST TO THE PATIENTS FOR THE DATES: 09/20/2023 - 07/15/2024. CONTACTED THE PATIENT AND INFORMED OF THE APPROVAL, THE [facility] AND PRESCRIBER INFORMED OF THE APPROVAL FOR ASSISTANCE. documented in this encounter [facility] 09-20-2023 Note [facility] 04-27-2023 Note [place] [facility] - [facility] Subjective Myrna Shen is a 82 y.o. 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 She saw a chief nursing officer and was treated with prednisone. In October [...] Inhibitors Cough Ascorbic Acid (Vitamin C) Unknown Bucklin And Derivatives Bucklin Bioflavonoids Losartan Other reaction(s): hair loss Medications [...] , Rfl: atorva (more content not included)... [facility] 03-02-2023 Note [place] [facility] Subjective Myrna Shen is a 82 y.o. 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 She saw a chief nursing officer and was treated with prednisone. In October [...] Inhibitors Cough Ascorbic Acid (Vitamin C) Unknown Bucklin And Derivatives Bucklin Bioflavonoids Losartan Other reaction(s): hair loss Medications [...] Disp: , R (more content not included)... [facility] 11-23-2022 Note case [facility] 11-14-2022 Note [place] [facility]rophys[facility] Consult Note Date of Telehealth Visit: 11/14/22 The patient was notified that using 3rd democrat telecommunication application (e.g., [employer]) is not HIPPA compliant and may carry some privacy risks. Yes The visit was conducted [id number]-[id number] with the use of audio and video [...] Allergies: Allergies Allergen Reactions Sal Inhibitors Cough Bucklin And Derivatives Losartan Other reaction(s): hair loss [...] dizziness, no hea (more content not included)... [facility] 11-02-2022 Note Ordering follow up B MP for lasix increase from 20mg to 40mg Patient called, her symptoms have improved regarding LE edema No GALVAN, SOB. [facility] 11-01-2022 Note - [id number] at le ast 5 for age, gender, [...] she is to report to the ER [facility] 11-01-2022 Note - Blood pressures co ntrolled today, 125/88 -Continue Norvasc 10 mg, Toprol tartrate 25 mg twice daily [facility] 11-01-2022 Note - S/p CABG 2015 -Stable at this time, continue medication aspirin 81 mg, Lipitor 40 mg, as needed nitro which she has not needed [facility] 11-01-2022 Note - HFpEF, NYHA II, [...] cannot afford anything like [facility], she is allergic to SAL/ARB [facility] 11-01-2022 Note Patient here to disc [...] All other systems reviewed and are negative. [facility] 11-01-2022 Note [place] [facility] Consult Note Reason for visit: Afib, [...] it at last visit. She saw a chief nursing officer and was treated with prednisone. Otherwise she has some shortness of breath on exertion and some occasional leg swelling but no chest pain. PMH: Past Medical History: Diagnosis Date Arrhythmia Atrial fibrillation ([facility]/HCC) Cancer ([facility]) Coronary artery disease Hyperlipidemia Hypertension PSH: Past [...] Allergies: Allergies Allergen Reactions Sal Inhibitors Cough Bucklin And Derivatives Losartan Other reaction(s): hair loss [...] route. predniSONE ( (more content not included)... [facility] 09-25-2022 Note [place] [facility] - [facility] Subjective Myrna Shen is a 82 y.o. year old female patient being seen for 3 mo follow up Coronary Artery Disease, Hypertension, and Atrial Fibrillation She had labs 2 weeks ago. Denies chest pain, SOB, and bleeding on Eliquis. 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 She saw a chief nursing officer and was treated with prednisone. Otherwise she [...] Allergies Allergies Allergen Reactions Sal Inhibitors Cough Bucklin And Derivatives Losartan Other reaction(s): hair loss [...] tablet as neede (more content not included)... 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 [facility] 06-20-2022 Note [facility] ESS [...] continues to persist, she was seen by chief nursing officer and they believe this could be autoimmune. 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 Allergies Allergen Reactions Sal Inhibitors Cough Bucklin And Derivatives Losartan Other reaction(s): hair loss Medications: Current Outpatient Medications on File Prior to Visit Medication Sig Dispense Refill apixaban (Eliquis) 5 mg tablet Take 1 tablet (5 mg) by mouth in the morning and at bedtime for 7 days. 14 tablet 0 amLODIPine (Norvasc) 10 mg tablet Take 1 tablet by mouth in (more content not included)... [facility] Evaluation + Plan note Future Appointments Appointment Date:12/27/2022 01:40:00 PM Scheduled Provider:Darby Hamlin MD Location: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 Acute myeloid leukemia, without mention of having achieved remission [facility] Diagnosis 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 Acute myeloid leukemia, without mention of having achieved remission Pancytopenia (HCC) Other pancytopenia Immunocompromised (HCC) Unspecified immunity deficiency documented in this encounter [facility] Narrative No data available for this section [facility] No data available for this section [facility] No data available for this section [facility] Summary Purpose Family History No [...] Dates Debbie Villanueva PA-C Attending Provider Active Dance Instructor Relationship Specialty Start Date End Date Ana Rosa Redding MD [address] [place] [address] PCP - General Family Medicine 07/03/12 Dance Instructor Relationship Specialty Start Date End Date An aRosa Redding MD [address] [place] [address] PCP - General Family Medicine 07/03/12 Dance Instructor Relationship Specialty Start Date End Date Ana Rosa Redding MD [address] [place] [address] PCP - General Family Medicine 07/03/12 Dance Instructor Relationship Specialty Start Date End Date Ana Rosa Redding MD [address], [place] [address] PCP - General Family Medicine 07/03/12 Dance Instructor Relationship Specialty Start Date End Date Ana Rosa Redding MD [address], [place] [address] PCP - General Family Medicine 07/03/12 Dance Instructor Relationship Specialty Start Date End Date Ana Rosa Redding MD [address], [place] [address] PCP - General Family Medicine 07/03/12 Dance Instructor Relationship Specialty Start Date End Date Ana Rosa Redding MD [address], [place] [address] PCP - General Family Medicine 07/03/12 Dance Instructor Relationship Specialty Start Date End Date Ana Rosa Redding MD [address], [place] [address] PCP - General Family Medicine 07/03/12 Dance Instructor Relationship Specialty Start Date End Date Ana Rosa Redding MD [address], [facility] PCP - General Family Medicine 07/03/12 Team Status: Inactive Member Role Status Dates NON STAFF Attending Provider Active Start: [facility] 2023 End: September 18, 2023 Team Status: Inactive Member Role Status Dates Aneta Krueger MD Attending Provider Active St art: November 20, 2023 End: November 20, 2023 Dance Instructor Relationship Specialty Start Date End Date Ana Rosa Redding MD [address] [place] [address] PCP - General Family Medicine 07/03/12 Goals [...] AUTHOR AUTHOR'S ORGANIZ ATION 04/29/2023 [facility] DATE CREATED AUTHOR AUTHOR'S ORGANIZ ATION 11/20/2023 [facility] DATE CREATED AUTHOR AUTHOR'S ORGANIZ ATION 11/21/2023 [facility] DATE CREATED AUTHOR AUTHOR'S ORGANIZ ATION 12/21/2023 [facility] Source Comments (unrecognize d section and content) In the event this informatio n is protected by the Federal Confidentiality of Alcohol and Drug Abuse Patient Records regulations: The Federal rules restrict any use of the information to criminally investigate or prosecute any alcohol or drug abuse patient.[facility] the event this information is protected by the Federal Confidentiality of Alcohol and Drug Abuse Patient Records regulations: The Federal rules restrict any use of the information to criminally investigate or prosecute any alcohol or drug abuse patient.[facility] System[facility] the event this information is protected by the Federal Confidentiality of Alcohol and Drug Abuse Patient Records regulations: The Federal rules restrict any use of the information to criminally investigate or prosecute any alcohol or drug abuse patient.[facility] System[facility] the event this information is protected by the Federal Confidentiality of Alcohol and Drug Abuse Patient Records regulations: The Federal rules restrict any use of the information to criminally investigate or prosecute any alcohol or drug abuse patient.[facility] System[facility] the event this information is protected by the Federal Confidentiality of Alcohol and Drug Abuse Patient Records regulations: The Federal rules restrict any use of the information to criminally investigate or prosecute any alcohol or drug abuse patient.[facility] System[facility] the event this information is protected by the Federal Confidentiality of Alcohol and Drug Abuse Patient Records regulations: The Federal rules restrict any use of the information to criminally investigate or prosecute any alcohol or drug abuse patient.[facility] System[facility] the event this information is protected by the Federal Confidentiality of Alcohol and Drug Abuse Patient Records regulations: The Federal rules restrict any use of the information to criminally investigate or prosecute any alcohol or drug abuse patient.[facility] System[facility] the event this information is protected by the Federal Confidentiality of Alcohol and Drug Abuse Patient Records regulations: The Federal rules restrict any use of the information to criminally investigate or prosecute any alcohol or drug abuse patient.[facility] SystemIn the event this information is protected by the Federal Confidentiality of Alcohol and Drug Abuse Patient Records regulations: The Federal rules restrict any use of the information to criminally investigate or prosecute any alcohol or drug abuse patient.[facility] SystemIn the event this information is protected by the Federal Confidentiality of Alcohol and Drug Abuse Patient Records regulations: The Federal rules restrict any use of the information to criminally investigate or prosecute any alcohol or drug abuse patient.[facility] SystemIn the event this information is protected by the Federal Confidentiality of Alcohol and Drug Abuse Patient Records regulations: The Federal rules restrict any use of the information to criminally investigate or prosecute any alcohol or drug abuse patient.[facility] SystemIn the event this information is protected by the Federal Confidentiality of Alcohol and Drug Abuse Patient Records regulations: The Federal rules restrict any use of the information to criminally investigate or prosecute any alcohol or drug abuse patient.[facility] SystemIn the event this information is protected by the Federal Confidentiality of Alcohol and Drug Abuse Patient Records regulations: The Federal rules restrict any use of the information to criminally investigate or prosecute any alcohol or drug abuse patient.[facility] Reason for Visit (unrecogniz ed section and [...] incorrect pt Reason Comments Leukemia Reason Comments Green House Manager - Other Medication Rece ived Reason Onset Date Comments SPP Oral Oncology/hematology - Medication Refill 11/19/2023 Imatinib 400mg Reason Comments Established Patient Reason Comments Green House Manager - Other 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 t o platlets [...] BE BASED ON THE PRIMARY CLINICAL RECORDS. [employer] provides no warranty or guarantee of the accuracy or completeness of information in this document.
--- NOTE | 2023-12-24 10:02 | SWNOTE1 ---
SW received a call from pt's daughter, Yuli. Yuli is unsure of what to do. Yuli lives next door to pt. She has concerns about pt returning home. Yuli voices frustration as to what the future holds for pt. She voiced the doctors are not giving them much guidance in regards to the chemo and if she continues will it truly help her. She stated the past few days her mother could not even walk and she is losing 10 pounds per week. She is not sure whether to look in to hospice services or try rehab. SW did let Yuli know that usually if pt's go to rehab they have to stop chemo for that time. Pt's daughter also expressed that her mother can't come live with her as she does not have the experience to care for her at home. SW did advise the daughter that AL and senior care at a facility are out of pocket. Yuli is coming in at 11:30 to meet with SW and pt.
--- NOTE | 2023-12-24 10:09 | REH.PTDLY ---
Physical Therapy Daily Note PT Daily Note/Assess Start: 12/22/23 11:13 Freq: Status: Active Protocol: Document 12/24/23 09:55 PAULA (Rec: 12/24/23 10:09 PAULA [id number]) Physical Therapy Daily Note/Assessment Time In 09:35 Time Out 09:48 Subjective Pt sitting bedside upon arrival. Ready to get back to bed, very tired. Have walked to the bathroom to shower and get cleaned up for the day already. Therapeutic Exercise Minutes (minutes) 8 Therapeutic Exercise Units 1 Therapeutic Exercise Treatment Pt sat bedside and performed BLE LAQ, HR, marches, hip abd slides, and add squeezes 10x ea for improved strength. Cues at times for larger ROM. Therapeutic Activity Minutes (minutes) 4 Therapeutic Activity Units 0 Therapeutic Activity Comments Sit to stand transfers CGA with bed slightly elevated. Pt is slow to rise. Gait with RW CGA ambulating 6 feet forwards and 6 feet retro. Pt reports she is tired and would like to go back to bed. Pt sits bedside and OT enters room, pt left in OT's care. Total Therapy Minutes 12 Total Physical Therapy Units 1 Daily Note Summary Pt very weak and fatigued and would benefit from SNF stay to regain strength. Pt reports she had HH prior to coming into hospital, but was not being seen very often due to scheduling conflicts with chemo treatments and seemed to be getting weaker.
--- NOTE | 2023-12-24 10:35 | SWNOTE1 ---
[facility] is going to look over face sheet to see if they accept pt's insurance as family would like [facility] if she does go skilled. CEM sent face sheet. CEM advised Derrick that pt does get chemo. Derrick would like to speak with our billing dept to see ow we bill for chemo to see if medicare will stay pay while pt is skilled. CEM reached out to Jessica , then Zuleika Monte in HIM, and Miriam the medicare biller. CEM provided Derrick with Miriam's extension.
[2023-12-24 11:14] LABS: Glucometer 113 mg/dL (74-106)
[2023-12-24 13:14] LABS: Anion Gap 11.8; BUN Creatinine Ratio 23.9; Calcium 7.9 mg/dL (8.5-10.1); Carbon Dioxide 27.7 mmol/L (21.0-32.0); Chloride 107 mmol/L (98-107); Estimated GFR (African America >60 (>=60); Estimated GFR (Non-African Ame >60 (>=60); Glucose 101 mg/dL (74-106); Potassium 3.5 mmol/L (3.5-5.1); Sodium 143 mmol/L (136-145)
--- NOTE | 2023-12-24 13:23 | SWNOTE1 ---
[facility] in[facility] rehab can't accept due to her platelets being so low, required to be above 40. CEM updated family. SW is waiting to hear back from [facility] to see if they can accept.
--- NOTE | 2023-12-24 13:27 | SWNOTE1 ---
Important Message from Medicare reviewed and discussed with patient. Pt. verbalized understanding and signed the form. Original given to patient and copy placed in patient?s chart.
--- NOTE | 2023-12-24 13:56 | SWNOTE1 ---
[facility] needs to know name of pill for chemo. Daughter, Yuli, is looking in to it.
--- NOTE | 2023-12-24 15:35 | SWNOTE1 ---
SW sent over PT/OT notes for precert. [facility] will start precert once therapy received.
--- NOTE | 2023-12-24 15:35 | SWNOTE1 ---
Progress note from earlier. [facility] is able to accept. They were able to find chemo drug. SW notified pt that [facility] can accept. She reminded SW that her is , SW let [facility] know. Precert started once therapy is sent, CEM did send PT and OT notes.
[2023-12-24 16:21] LABS: Glucometer 90 mg/dL (74-106)
--- NOTE | 2023-12-24 16:29 | SWNOTE1 ---
SW called pt's daughter Yuli and updated her. SW also spoke to Derrick at [facility] and pt can go to her 's .
[2023-12-24 20:21] LABS: Glucometer 106 mg/dL (74-106)
[2023-12-25] VITALS (8 sets, daily range): BP systolic 149–184; BP diastolic 69–80; PULSE 59–63; TEMP 36.4–36.8; O2SAT 93–96
[2023-12-25] MEDS: PIPERACILLIN SODIUM/TAZOBACTAM 3.375 GM in 0.9 % SODIUM CHLORIDE 50 ML IV (00:10)
[2023-12-25] MEDS: POTASSIUM CHLORIDE 10 MEQ ER TABLET 20 MEQ PO ×3 (05:12→21:39)
[2023-12-25] MEDS: MAGNESIUM OXIDE 400 MG TABLET PO ×3 (05:12→21:39)
[2023-12-25 05:53] LABS: Hemoglobin 7.9 g/dL (12.0-16.0); Immature Granulocytes Abs Auto 0.01 10^3/uL (0.00-0.03); Immature Granulocytes Pct Auto 1.6 % (0.0-0.5); Lymphocytes Absolute Auto 0.3 10^3/uL (1.2-3.8); Lymphocytes Percent Auto 44.4 % (20.5-60.0); Mean Corpuscular HGB Conc 33.1 g/dL (29.9-35.2); Mean Corpuscular Hemoglobin 28.5 pg (26.7-34.0); Mean Corpuscular Volume 86.3 fL (81.0-99.0); Monocytes Absolute Auto 0.2 10^3/uL (0.3-0.8); Monocytes Percent Auto 30.2 % (1.7-12.0); Neutrophils Absolute Auto 0.2 10^3/uL (1.4-6.5); Neutrophils Percent Auto 23.8 % (43.0-75.0); Red Blood Count 2.77 10^6/uL (4.20-5.40); Red Cell Distribution Width 16.2 % (11.0-15.0)
--- NOTE | 2023-12-25 06:00 | PC.NURSE ---
Checked vitals at 0430. Patients Bp was 184/72. Rechecked with same results. Patient was asymptomatic. Patient admitted to feeling anxious about her health and the care she will receive at rehab facility. Agricultural Sciences Professor contacted [employer] and was instructed to recheck in 1 hour. Recheck was 149/69.
[2023-12-25 06:24] LABS: Alanine Aminotransferase 20 U/L (14-59); Albumin Globulin Ratio 0.7; Albumin Level 1.9 g/dL (3.4-5.0); Alkaline Phosphatase 84 U/L (46-116); Anion Gap 9.6; Aspartate Amino Transferase 17 U/L (15-37); BUN Creatinine Ratio 23.7; Calcium 7.7 mg/dL (8.5-10.1); Carbon Dioxide 30.3 mmol/L (21.0-32.0); Chloride 107 mmol/L (98-107); Estimated GFR (African America >60 (>=60); Estimated GFR (Non-African Ame >60 (>=60); Globulin 2.7 g/dL; Glucose 80 mg/dL (74-106); Sodium 144 mmol/L (136-145); Total Protein 4.6 g/dL (6.4-8.2)
[2023-12-25 06:30] LABS: Hematocrit 23.9 % (36.0-48.0); Platelet Count 20 10^3/uL (150-450); White Blood Count 0.6 10^3/uL (4.0-11.0)
[2023-12-25 06:31] LABS: Potassium 2.9 mmol/L (3.5-5.1)
--- NOTE | 2023-12-25 06:54 | P.PN_ITS ---
Progress Note: Subjective Subjective Interval history: More fatigued this morning. Exam Constitutional Vital Signs, click to edit/add: Last Vital Signs Temp 98.2 F 12/25/23 04:35 Pulse 60 12/25/23 04:35 Resp 18 12/25/23 04:35 BP 149/69 H 12/25/23 05:57 Pulse Ox 93 L 12/25/23 04:35 O2 Del Method Room Air 12/25/23 04:35 O2 Flow Rate 2 12/22/23 09:00 Documenting provider has reviewed patient's vital signs: yes Common normals: apparent distress (Looks improved today.) HENMT Common normals: normocephalic and head/scalp atraumatic Chest Common normals: inspection of chest normal and palpation of chest normal Respiratory Common normals: normal respiratory effort and clear to auscultation bilaterally Effort & inspection: no respiratory distress Auscultation: no rales and no rhonchi Cardio Common normals: regular rate and regular rhythm GI Common normals: Normal to inspection, nondistended, normoactive bowel sounds present Extremity Common normals: abnormal to inspection General: edema (1+ edema, normal for her) Other: Left foot bruising. Tender to the touch. No calor Progress Note: Objective Labs Labs: Short CBC 12/25/23 Range/Units 04:20 WBC 0.6 L* (4.0-11.0) 10^3/uL Hgb 7.9 L (12.0-16.0) g/dL Hct 23.9 L* (36.0-48.0) % Plt Count 20 L* (150-450) 10^3/uL BMP 12/24/23 12/25/23 12:54 04:20 Sodium 143 144 Potassium 3.5 2.9 L* Chloride 107 107 Carbon Dioxide 27.7 30.3 BUN 11.0 9.0 Creatinine 0.46 L 0.38 L Glucose 101 80 Calcium 7.9 L 7.7 L Liver Function 12/25/23 Range/Units 04:20 Total Bilirubin 1.0 (0.2-1.0) mg/dL AST 17 (15-37) U/L ALT 20 (14-59) U/L Alkaline Phosphatase 84 (46-116) U/L Albumin 1.9 L (3.4-5.0) g/dL Progress Note: A&P Assessment and Plan (1) Pneumonia: (2) Neutropenia with fever: (3) Pancytopenia: (4) AML (acute myeloblastic leukemia): (5) Immune deficiency disorder, disease or syndrome: (6) DM2 (diabetes mellitus, type 2): (7) HTN (hypertension): (8) CAD (coronary artery disease): Plan Admission findings: Mild bradycardia, uncontrolled hypertension, respiratory distress, acute hypoxia with O2 saturation of 88%, neutropenia, thrombocytopenia, anemia secondary to her acute myelogenous leukemia with immune deficiency complicated now by right lower lobe pneumonia and positive UTI secondary to Enterococcus. Change patient to IV levofloxacin as it is sensitive to that. Changed to p.o. at discharge. IV note secondary to history of sepsis with positive blood cultures. Right lower lobe pneumonia-overall lung exam is improving Hypokalemia-continue to supplement-Down today. Repeat Chem-8 later today. Likely needs 2 IV doses. Acute myelogenous leukemia-pancytopenia secondary to AML and treatment. White blood cell count 0.6 today. Platelet count up to 20. Hemoglobin down slightly today is 7.9, would hold off on transfusion until likely tomorrow DM2 (diabetes mellitus, type 2): Maintain current diet, sugars pretty stable HTN (hypertension): Continue home medications. Consider increased Imdur with elevated BNP. Maintain current medications CAD (coronary artery disease): No active chest pain. Severe protein calorie malnutrition-diet management-plus supplementation. Change supplement to Ensure clear for tolerance Left foot pain secondary to [id number] negative, just contusion Coagulopathy-secondary to her neutropenic sepsis and AML. No further signs of bruising. Will hold off on repeating labs Admission status: Patient with neutropenic sepsis secondary to right lower lobe pneumonia and possible UTI-medically necessary treatment will span 2 midnights. Inpatient status. Excellent rehab candidate. Awaiting placement. Likely needs 1 more hospital day. If she is likely to need blood transfusion tomorrow
[2023-12-25] MEDS: POTASSIUM CHLORIDE 40 MEQ in 0.9 % SODIUM CHLORIDE 250 ML 67.5 MEQ IV (07:12)
[2023-12-25] MEDS: PROSTAT 15 GM PROTEIN/100 CAL 30 ML LIQUID PACKET PO (09:12)
[2023-12-25] MEDS: ENSURE CLEAR 237 ML LIQUID PO ×2 (09:12→21:41)
[2023-12-25] MEDS: ACETAMINOPHEN 500 MG TABLET 1000 MG PO (09:13)
[2023-12-25] MEDS: FUROSEMIDE 40 MG TABLET PO (09:13)
[2023-12-25] MEDS: ALLOPURINOL 300 MG TABLET PO (09:13)
[2023-12-25] MEDS: ACYCLOVIR 200 MG CAPSULE 400 MG PO ×2 (09:14→21:39)
[2023-12-25] MEDS: METOPROLOL TARTRATE 50 MG TABLET PO ×2 (09:14→21:39)
[2023-12-25] MEDS: ISOSORBIDE MONONITRATE 30 MG TAB.ER.24H PO (09:14)
[2023-12-25] MEDS: POSACONAZOLE 100 MG 300 EACH PO (09:15)
--- NOTE | 2023-12-25 09:37 | OT.DAILY ---
Occupational Therapy Daily Note OT Inpatient Daily Visit Note Start: 12/24/23 11:10 Freq: Status: Active Protocol: Document 12/25/23 08:21 [id number] (Rec: 12/25/23 08:29 [id number]) OT Visit Details Time In/Time Out Time In 08:00 Time Out 08:19 Pain In Pain Level 0 OT Treatment Plan Subjective Subjective I am feeling weak and I need help Objective Objective Pt reports that she needs to use the restroom with her call light on. Pt is in bed supine AAOx4. Mod A STS transfer from bed to walker. Pt demonstrates difficulty scooting in bed. Able to ambulate with walker to restroom w/o fatigue. Reports generalize weakness. Pt able to pass BM and complete pericare w/o complications. Demonstrates appropriate use of grab bar when standing from commode. Min A donning undergarmnets following toileting tasks. With appropriate supplies Pt was agreeable to wash her face and comb hair for self care. No complications reaching outside LUIS w/o LOB. Pt wanting to lay in bed and wait for breakfast. Pt left in bed with call light within reach. Continue OT POC. OT Billing Total Treatment Time Total treatment minutes 19 Bindery Leadperson Timed Codes [facility] minutes ( 19 minutes) [facility] units 2
--- NOTE | 2023-12-25 09:38 | SWNOTE1 ---
CEM received email from Jon at [facility] and pt did get approved by her insurance. CEM notified . Plan is for pt to stay one more night and dc to [facility] tomorrow. CEM to update patient.
--- NOTE | 2023-12-25 09:52 | PT.DAILY ---
Physical Therapy Daily Note PT Daily Note/Assess Start: 12/22/23 11:13 Freq: Status: Active Protocol: Document 12/25/23 09:48 ECHO (Rec: 12/25/23 09:52 ECHO [id number]) Physical Therapy Daily Note/Assessment Time In/Time Out Time In 09:30 Time Out 09:47 Pain In Pain N/A Pain Out Pain N/A Subjective Subjective Pt sitting EOB upon arrival finishing up taking her morning meds. Pt agrees to PT at this time. Therapeutic Exercise Time Therapeutic Exercise Minutes (minutes) 3 Therapeutic Exercise Units 0 Therapeutic Exercise Treatment Therapeutic Exercise Treatment Seated unsupported at EOB pt performs AP, LAQ, marches and add squeezes 10x ea. Therapeutic Activity Time Therapeutic Activity Minutes (minutes) 8 Therapeutic Activity Units 1 Therapeutic Activity Treatment Bed Mobility Ability Minimum Assist Chair Transfer Ability Minimum Assist Therapeutic Activity Comments Sit>stand 2x with Eloy before fatigued and needing a break. Sit>stand a third time Eloy and amb 20' with RW to restroom CGA with assist for IV pole. Pt uses restroom thenSit>stand from toilet Eloy and does require assistance for pericare and to get brief changed and pulled up. Amb with RW 20' CGA back to bed. Sit>supine Eloy for LEs. Remains supine with call light within reach and needs met. Total Physical Therapy Time Total Therapy Minutes 11 Total Physical Therapy Units 1 Summary Daily Note Summary Improved gait endurance on this date. Would benefit from SNF to regain strength and endurance.
[2023-12-25 11:37] LABS: Glucometer 119 mg/dL (74-106)
[2023-12-25] MEDS: LEVOFLOXACIN IN DEXTROSE 5 % 750 MG/150 ML IV.SOLN 100 MG IV (12:12)
[2023-12-25 14:08] LABS: Anion Gap 7.4; Calcium 7.8 mg/dL (8.5-10.1); Carbon Dioxide 29.8 mmol/L (21.0-32.0); Chloride 107 mmol/L (98-107); Estimated GFR (African America >60 (>=60); Estimated GFR (Non-African Ame >60 (>=60); Glucose 125 mg/dL (74-106); Potassium 3.2 mmol/L (3.5-5.1); Sodium 141 mmol/L (136-145)
--- NOTE | 2023-12-25 14:49 | SWNOTE1 ---
SW let pt and daughter know that the plan is for discharge tomorrow since pt did get approved by her insurance.
[2023-12-25 15:00] LABS: INR 1.41; Prothrombin Time 14.4 sec (9.0-11.6)
[2023-12-25 16:29] LABS: Glucometer 93 mg/dL (74-106)
--- NOTE | 2023-12-25 17:25 | PM.CN ---
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 Her care is coordinated with [facility] (Dr Bill). She was diagnosed by peripheral blasts and flow cytometry. She has strongly declined BM biopsy. She received cycle 1 Vidaza + Venclexta on 09/22/2023. She had NGS testing showing t(9;22). Her therapy was changed to oral imatinib. She developed progressive pancytopenia in 11/2023, suggestive of relapse. She restarted cycle #2 Vidaza without Venclexta. She was admitted to [facility] for constipation, dehydration. She did require on a separate admission, diuresis for volume overload. Lately, she has been transfusion dependent. She notes weakness and fatigue. She has had weakness in her legs, without strength. Her next chemo cycle was planned for 12/31/2023 before her present admission. She is on infection ppx with acyclovir and posaconazole. She is now admitted with weakness, neutropenic fever, probable pneumonia. She had fever to 101'. WBC 0.7 on admission. CXR showed possible infiltrate. Started on IV Zosyn. She continues to note fatigue. She is considering rehab at [facility]. She knows that she may not be a candidate for further IV chemotherapy, if at rehab. She wonders if she could restart her oral chemo, imatinib, and still continue transfusions. I discussed her case personally with Dr Bill at [facility] today. If pt desires treatment, we can try oral chemo imatinib while pt is at [facility] and continue blood work/transfusions 2-3x per week. ECOG PS 3. ? cc:: CC: Armani Tapia MD Review of Systems ROS Narrative A comprehensive 12 point review of systems was conducted and is negative other than that reported in the history of present illness. [facility] Medical History (Updated 12/22/23 @ 09:56 by Ayad Robins MD) Protein calorie malnutrition ?E46 - Unspecified protein-calorie malnutrition (ICD-10) Dehydration ?E86.0 - Dehydration (ICD-10) UTI (urinary tract infection) ?N39.0 - Urinary tract infection, site not specified (ICD-10) Leukocytosis ?D72.829 - Elevated white blood cell count, unspecified (ICD-10) Pleural effusion on right ?J90 - Pleural effusion, not elsewhere classified (ICD-10) Neutropenic fever ?D70.9 - Neutropenia, unspecified (ICD-10) ?R50.81 - Fever presenting with conditions classified elsewhere (ICD-10) Thrombocytopenia ?D69.6 - Thrombocytopenia, unspecified (ICD-10) Symptomatic anemia ?D64.9 - Anemia, unspecified (ICD-10) Acute leukemia ?C95.00 - Acute leukemia of unspecified cell type not having achieved remission (ICD-10) Malignancy ?C80.1 - Malignant (primary) neoplasm, unspecified (ICD-10) A-fib ?I48.91 - Unspecified atrial fibrillation (ICD-10) Hyperlipidemia ?E78.5 - Hyperlipidemia, unspecified (ICD-10) Surgical History S/P CABG x 4 ?Z95.1 - Presence of aortocoronary bypass graft (ICD-10) Family History (Updated 10/11/23 @ 18:08 by Bonny Jaramillo) Mother Family history of CHF (congestive heart failure) Social History (Updated 10/11/23 @ 18:09 by Bonny Jaramillo) Within the past year, how often did you have a drink containing alcohol: monthly or less Within the past year, how many standard drinks containing alcohol did you have on a typical day: 1 or 2 Within the past year, how often did you have six or more drinks on one occasion: never Total score: 0 Score interpretation: A score less than 3 is consistent with normal alcohol consumption. Smoking status: Never smoker Non-prescribed substance use: denies use Previous occupational history: retired Highest level of school completed/degree received: some college, no degree Are you now , , , , never or living with a partner: In a typical week, how many times do you talk on the telephone with family, friends, or neighbors: 3 or more times per week How often do you get together with friends or relatives: 3 or more times per week How often do you attend quaker or mandaen services: never Do you belong to any clubs or organizations such as quaker groups unions, fraternal or athletic groups, or school groups: no Total score: 2 Score interpretation: A score of greater than or equal to 2 indicates the lowest level of social isolation. Little interest or pleasure in doing things: several days Feeling down, depressed, or hopeless: several days Feel stressed/tense/nervous/anxious/difficulty sleeping: to some extent Life stressor details: cancer diagnosis Do you think of yourself as: straight/heterosexual Gender Identity: female Meds Home Medications and Allergies Home Medications ?Medication ?Instructions ?Recorded ?Confirmed ?Type allopurinol 300 mg tablet 300 mg PO DAILY 10/11/23 12/21/23 History posaconazole 100 mg tablet,delayed 300 mg PO Q24H 10/11/23 12/21/23 History release metoprolol tartrate 50 mg tablet 50 mg PO Q12H #60 tabs 10/13/23 12/21/23 Rx magnesium oxide 400 mg (241.3 mg 400 mg PO TID #90 tabs 10/21/23 12/21/23 Rx magnesium) tablet potassium chloride 10 mEq 20 meq (2 x 10 mEq) PO TID #90 tabs 10/21/23 12/21/23 Rx tablet,extended release(part/cryst) ondansetron HCl 8 mg tablet 8 mg PO Q12H PRN nausea and 11/29/23 12/21/23 History vomiting acyclovir 400 mg tablet 400 mg PO BID 12/22/23 12/22/23 History furosemide 40 mg tablet 40 mg PO DAILY 12/22/23 12/22/23 History isosorbide mononitrate 30 mg 30 mg PO DAILY 12/22/23 12/22/23 History tablet,extended release 24 hr metformin 500 mg tablet 500 mg PO BID 12/22/23 12/22/23 History prochlorperazine maleate 10 mg 10 mg PO Q8H PRN nausea and 12/22/23 12/22/23 History tablet vomiting Allergies Allergy/AdvReac Type Severity Reaction Status Date / Time ORANGES AdvReac Uncoded 10/11/23 15:49 Exam Narrative Exam Narrative: Documenting provider has reviewed patient's vital signs: yes Common normals: apparent distress (Looks improved today.) HENNE Common normals: normocephalic and head/scalp atraumatic Chest Common normals: inspection of chest normal and palpation of chest normal Respiratory Common normals: normal respiratory effort and clear to auscultation bilaterally Effort & inspection: no respiratory distress Auscultation: no rales and no rhonchi Cardio Common normals: regular rate and regular rhythm GI Common normals: Normal to inspection, nondistended, normoactive bowel sounds present Extremity Common normals: abnormal to inspection General: edema (1+ edema, normal for her) Other: Left foot bruising. Tender to the touch. No calor Constitutional Vital Signs, click to edit/add: Last Vital Signs Temp 97.5 F L 12/25/23 14:00 Pulse 59 L 12/25/23 14:00 Resp 17 12/25/23 14:00 BP 150/80 H 12/25/23 14:00 Pulse Ox 96 12/25/23 14:00 O2 Del Method Room Air 12/25/23 14:00 O2 Flow Rate 2 12/22/23 09:00 Results Labs Labs: Short CBC 12/25/23 Range/Units 04:20 WBC 0.6 L* (4.0-11.0) 10^3/uL Hgb 7.9 L (12.0-16.0) g/dL Hct 23.9 L* (36.0-48.0) % Plt Count 20 L* (150-450) 10^3/uL BMP 12/25/23 12/25/23 04:20 13:50 Sodium 144 141 Potassium 2.9 L* 3.2 L Chloride 107 107 Carbon Dioxide 30.3 29.8 BUN 9.0 12.0 Creatinine 0.38 L 0.50 L Glucose 80 125 H Calcium 7.7 L 7.8 L Liver Function 12/25/23 Range/Units 04:20 Total Bilirubin 1.0 (0.2-1.0) mg/dL AST 17 (15-37) U/L ALT 20 (14-59) U/L Alkaline Phosphatase 84 (46-116) U/L Albumin 1.9 L (3.4-5.0) g/dL Assessment and Plan Assessment and Plan (1) Pneumonia: (2) Neutropenia with fever: (3) Pancytopenia: (4) AML (acute myeloblastic leukemia): (5) Immune deficiency disorder, disease or syndrome: (6) DM2 (diabetes mellitus, type 2): (7) HTN (hypertension): (8) CAD (coronary artery disease): Plan Impression: # AML leukemia # Pancytopenia from AML leukemia # Anemia and severe thrombocytopenia # t(9;22) molecular alternation # Neutropenic fever # Weakness, fatigue, limited functional status PLAN: - I discussed her case with Dr Bill at [facility] - unfortunately, her health has declined such that she requires rehab. We cannot give IV Vidaza at rehab. Pt understands. - appreciate hospitalist care for neutropenic fever with IV Abx - continue all infection ppx meds - she can take oral chemo imatinib (prescribed by [facility]) while at [facility]; we will coordinate blood work and transfusions 2-3x per week, while she is at rehab. - at some point, she will likely not respond to blood transfusions. We will need to consider hospice at that point, or for any progressive decline. Aneta Krueger MD Hematology Oncology
[2023-12-25 20:47] LABS: Glucometer 103 mg/dL (74-106)
[2023-12-26 04:09] VITALS: O2SAT 92
[2023-12-26 05:13] LABS: Hematocrit 24.3 % (36.0-48.0); Immature Granulocytes Abs Auto 0.02 10^3/uL (0.00-0.03); Immature Granulocytes Pct Auto 2.6 % (0.0-0.5); Lymphocytes Absolute Auto 0.3 10^3/uL (1.2-3.8); Lymphocytes Percent Auto 34.2 % (20.5-60.0); Mean Corpuscular HGB Conc 32.9 g/dL (29.9-35.2); Mean Corpuscular Hemoglobin 28.6 pg (26.7-34.0); Mean Corpuscular Volume 86.8 fL (81.0-99.0); Monocytes Absolute Auto 0.3 10^3/uL (0.3-0.8); Monocytes Percent Auto 36.8 % (1.7-12.0); Neutrophils Absolute Auto 0.2 10^3/uL (1.4-6.5); Neutrophils Percent Auto 26.4 % (43.0-75.0)
[2023-12-26] MEDS: POTASSIUM CHLORIDE 10 MEQ ER TABLET 20 MEQ PO (05:25)
[2023-12-26] MEDS: MAGNESIUM OXIDE 400 MG TABLET PO (05:25)
[2023-12-26 05:35] LABS: Alanine Aminotransferase 20 U/L (14-59); Albumin Globulin Ratio 0.8; Alkaline Phosphatase 86 U/L (46-116); Aspartate Amino Transferase 16 U/L (15-37); BUN Creatinine Ratio 27.3; Bilirubin Total 0.9 mg/dL (0.2-1.0); Calcium 8.1 mg/dL (8.5-10.1); Carbon Dioxide 29.8 mmol/L (21.0-32.0); Chloride 107 mmol/L (98-107); Estimated GFR (African America >60 (>=60); Estimated GFR (Non-African Ame >60 (>=60); Globulin 2.6 g/dL; Glucose 82 mg/dL (74-106); Sodium 141 mmol/L (136-145); Total Protein 4.6 g/dL (6.4-8.2)
[2023-12-26 05:36] VITALS: BP 168/76; PULSE 65; TEMP 36.4; O2SAT 93
[2023-12-26 05:57] LABS: Potassium 2.8 mmol/L (3.5-5.1); White Blood Count 0.8 10^3/uL (4.0-11.0)
[2023-12-26 05:58] LABS: Platelet Count 12 10^3/uL (150-450)
[2023-12-26] MEDS: PHYTONADIONE (VIT K1) 10 MG/ML AMPUL 5 MG PO (07:26)
[2023-12-26] MEDS: POTASSIUM CHLORIDE 40 MEQ in 0.9 % SODIUM CHLORIDE 250 ML 67.5 MEQ IV (07:27)
--- NOTE | 2023-12-26 07:56 | P.DS_ITS ---
DS: Providers Provider Date of admission: 12/22/23 13:43 Primary care physician: Armani Tapia MD Consults: 12/21/23 20:47 Consult to Oncology Routine Consulting Provider: Aneta Krueger Reason for consultation: Neurtopenic fever. ( request by Hospitalist) Has provider been notified: No 12/21/23 20:55 Occupational Therapy Eval and Treat Routine Reason for consultation: weakness Has provider been notified: No Physical Therapy Eval and Treat Routine Reason for consultation: weakness Has provider been notified: No 12/23/23 08:19 Consult to Candy Decorator Routine Reason for consult:: [facility] Other reason:: possible placement this time DS: Diagnosis Discharge Diagnosis (1) Pneumonia: (2) Neutropenia with fever: (3) Pancytopenia: (4) AML (acute myeloblastic leukemia): (5) Immune deficiency disorder, disease or syndrome: (6) DM2 (diabetes mellitus, type 2): (7) HTN (hypertension): (8) CAD (coronary artery disease): Plan Admission findings: Mild bradycardia, uncontrolled hypertension, respiratory distress, acute hypoxia with O2 saturation of 88%, neutropenia, thrombocytopenia, anemia secondary to her acute myelogenous leukemia with immune deficiency complicated now by right lower lobe pneumonia and positive UTI secondary to Enterococcus. Change patient to IV levofloxacin as it is sensitive to that. Changed to p.o. at discharge. IV note secondary to history of sepsis with positive blood cultures. Right lower lobe pneumonia-overall lung exam is improving Hypokalemia-continue to supplement-Down today. Repeat Chem-8 later today. Likely needs 2 IV doses. Acute myelogenous leukemia-pancytopenia secondary to AML and treatment. White blood cell count 0.6 today. Platelet count up to 20. Hemoglobin down slightly today is 7.9, would hold off on transfusion until likely tomorrow DM2 (diabetes mellitus, type 2): Maintain current diet, sugars pretty stable HTN (hypertension): Continue home medications. Consider increased Imdur with elevated BNP. Maintain current medications CAD (coronary artery disease): No active chest pain. Severe protein calorie malnutrition-diet management-plus supplementation. Change supplement to Ensure clear for tolerance Left foot pain secondary to [id number] negative, just contusion Coagulopathy-secondary to her neutropenic sepsis and AML. No further signs of bruising. Will hold off on repeating labs Admission status: Patient with neutropenic sepsis secondary to right lower lobe pneumonia and possible UTI-medically necessary treatment will span 2 midnights. Inpatient status. Excellent rehab candidate. Awaiting placement. Likely needs 1 more hospital day. If she is likely to need blood transfusion tomorrow ? DS: Summary Hospital Course Hospital Course: Patient admitted with fever, neutropenic sepsis. Found to have acute UTI secondary to Enterococcus. Chest x-ray concerning for pneumonia but she really did not have significant cough. Infectious etiology still most likely of the acute urinary tract infection. She required transfusion of platelets and 2 units of PRBCs. Her hemoglobin is stable today. Her platelet count is a little bit low for her. Will hold off on further transfusions at this time, will likely need them in the next couple days though. Will monitor CBCs and Chem-8 at rehab. Patient is an excellent rehabilitation candidate. She is highly motivated for returning to home. Otherwise she is stable for discharge to rehab today. Time Spent with Patient Time attestation: Total time spent providing and/or coordinating discharge services: Time spent: greater than 30 minutes Exam Constitutional Vital Signs, click to edit/add: Last Vital Signs Temp 97.6 F 12/26/23 05:36 Pulse 65 12/26/23 05:36 Resp 18 12/26/23 05:36 BP 168/76 H 12/26/23 05:36 Pulse Ox 93 L 12/26/23 05:36 O2 Del Method Room Air 12/26/23 05:36 O2 Flow Rate 2 12/22/23 09:00 Documenting provider has reviewed patient's vital signs: yes Common normals: apparent distress (Looks improved today.) HENMT Common normals: normocephalic and head/scalp atraumatic Chest Common normals: inspection of chest normal and palpation of chest normal Respiratory Common normals: normal respiratory effort and clear to auscultation bilaterally Effort & inspection: no respiratory distress Auscultation: no rales and no rhonchi Cardio Common normals: regular rate and regular rhythm GI Common normals: Normal to inspection, nondistended, normoactive bowel sounds present Extremity Common normals: abnormal to inspection General: edema (1+ edema, normal for her) Other: Left foot bruising. Tender to the touch. No calor DS: Data Data Completed and Pending Labs on day of discharge: Labs from last 24 hours 12/26/23 12/25/23 12/25/23 04:52 20:47 16:29 WBC 0.8 L* RBC 2.80 L Hgb 8.0 L Hct 24.3 L MCV 86.8 MCH 28.6 MCHC 32.9 RDW 16.0 H Plt Count 12 L* MPV 0.0 L Neut % (Auto) 26.4 L Lymph % (Auto) 34.2 [place] % (Auto) 36.8 H Eos % (Auto) 0.0 L Baso % (Auto) 0.0 L Neut # (Auto) 0.2 L Lymph # (Auto) 0.3 L [place] # (Auto) 0.3 Eos # (Auto) 0.0 Baso # (Auto) 0.0 Abs Immat Gran (auto) 0.02 Imm/Tot Granulo (auto) 2.6 H PT INR Sodium 141 Potassium 2.8 L* Chloride 107 Carbon Dioxide 29.8 Anion Gap 7.0 BUN 9.0 Creatinine 0.33 L Est GFR ( Amer) >60 Est GFR (Non-Af Amer) >60 BUN/Creatinine Ratio 27.3 Glucose 82 Calcium 8.1 L Total Bilirubin 0.9 AST 16 ALT 20 Alkaline Phosphatase 86 Total Protein 4.6 L Albumin 2.0 L Globulin 2.6 Albumin/Globulin Ratio 0.8 POC Glucose 103 93 12/25/23 12/25/23 12/25/23 14:25 13:50 11:36 WBC RBC Hgb Hct MCV MCH MCHC RDW Plt Count MPV Neut % (Auto) Lymph % (Auto) [place] % (Auto) Eos % (Auto) Baso % (Auto) Neut # (Auto) Lymph # (Auto) [place] # (Auto) Eos # (Auto) Baso # (Auto) Abs Immat Gran (auto) Imm/Tot Granulo (auto) PT 14.4 H INR 1.41 Sodium 141 Potassium 3.2 L Chloride 107 Carbon Dioxide 29.8 Anion Gap 7.4 BUN 12.0 Creatinine 0.50 L Est GFR ( Amer) >60 Est GFR (Non-Af Amer) >60 BUN/Creatinine Ratio 24.0 Glucose 125 H Calcium 7.8 L Total Bilirubin AST ALT Alkaline Phosphatase Total Protein Albumin Globulin Albumin/Globulin Ratio POC Glucose 119 H Preliminary micro results at discharge 12/21/23 19:16 - Preliminary Blood NO GROWTH AT 36-48 HOURS. FINAL TO FOLLOW. 12/21/23 19:07 Blood Culture Result 1 - Preliminary Blood NO GROWTH AT 36-48 HOURS. FINAL TO FOLLOW. Discharge Plan Discharge Disposition: Xfer SNF Condition: Serious Discharge Medications: New potassium chloride 10 mEq Tablet,Er Particles/Crystals 30 meq PO QID Qty: 360 11RF phytonadione (vitamin K1) 5 mg tablet 2.5 mg PO Q48H Qty: 30 11RF levofloxacin 750 mg tablet 750 mg PO DAILY 14 Days Qty: 14 0RF Pro-Stat Sugar Free 15 gram- 100 kcal/30 mL Liquid In Packet 1 ea PO BID Qty: 2880 11RF Continued allopurinol 300 mg tablet 300 mg PO DAILY posaconazole 100 mg tablet,delayed release (DR/EC) 300 mg PO Q24H metoprolol tartrate 50 mg Tablet 50 mg PO Q12H Qty: 60 11RF magnesium oxide 400 mg (241.3 mg magnesium) Tablet 400 mg PO TID Qty: 90 11RF ondansetron HCl 8 mg tablet 8 mg PO Q12H PRN (Reason: nausea and vomiting) acyclovir 400 mg tablet 400 mg PO BID furosemide 40 mg tablet 40 mg PO DAILY isosorbide mononitrate 30 mg tablet extended release 24 hr 30 mg PO DAILY metformin 500 mg tablet 500 mg PO BID prochlorperazine maleate 10 mg tablet 10 mg PO Q8H PRN (Reason: nausea and vomiting) Discontinued potassium chloride 10 mEq Tablet,Er Particles/Crystals 20 meq PO TID Qty: 90 11RF Print Language: Uzbek Forms: Portal Instructions
[2023-12-26] MEDS: ENSURE CLEAR 237 ML LIQUID PO (09:34)
[2023-12-26] MEDS: ALLOPURINOL 300 MG TABLET PO (09:34)
[2023-12-26] MEDS: ISOSORBIDE MONONITRATE 30 MG TAB.ER.24H PO (09:34)
[2023-12-26] MEDS: FUROSEMIDE 40 MG TABLET PO (09:34)
[2023-12-26] MEDS: METOPROLOL TARTRATE 50 MG TABLET PO (09:34)
[2023-12-26] MEDS: ACYCLOVIR 200 MG CAPSULE 400 MG PO (09:34)
[2023-12-26] MEDS: POSACONAZOLE 100 MG 300 EACH PO (09:35)
--- NOTE | 2023-12-26 09:46 | SWNOTE1 ---
Pt is being discharged today. SW reached out to nursing and she has potassium running, will be ready around noon. SW to find out of family transporting. CEM sent over dc med rec and dc summary to Brenda.
--- NOTE | 2023-12-26 10:36 | SWNOTE1 ---
CEM completed HENS. CEM left message for daughter Yuli to see if they are still wanting to transport pt to [place].
[2023-12-26 11:05] LABS: Glucometer 129 mg/dL (74-106)
--- NOTE | 2023-12-26 11:10 | PC.NURSE ---
Report called to [place] at [facility]...will ask dr hurd chest port can remain accessed
[2023-12-26 11:36] VITALS: O2SAT 94
[2023-12-26] MEDS: POTASSIUM CHLORIDE 10 MEQ ER TABLET 30 MEQ PO (12:19)
--- NOTE | 2023-12-26 13:11 | PC.NURSE ---
Chest port flushed and remains in place for discharge per doctor's order for [facility] staff to use for lab draws twice weekly
== END 2023-12-26 13:23 | DRG 871 ==
LOC: ER 20:53 → MS 12-24 06:26
PROVIDERS: Nurse Practitioner Acute Care; Personal Emergency Response Attendant; Admitting Provider Family Medicine; Emergency Provider Internal Medicine; PCP Family Medicine; Visit Provider Family Medicine
DX: A41.81 Sepsis due to Enterococcus (principal); E43 Unspecified severe protein-calorie malnutrition; J18.9 Pneumonia, unspecified organism; C92.00 Acute myeloblastic leukemia, not having achieved remission; D61.818 Other pancytopenia; D84.9 Immunodeficiency, unspecified; N39.0 Urinary tract infection, site not specified; D68.8 Other specified coagulation defects; D70.9 Neutropenia, unspecified; R09.02 Hypoxemia; R06.03 Acute respiratory distress; E87.6 Hypokalemia; D63.0 Anemia in neoplastic disease; R50.81 Fever presenting with conditions classified elsewhere; E11.9 Type 2 diabetes mellitus without complications; I10 Essential (primary) hypertension; I25.10 Atherosclerotic heart disease of native coronary artery without angina pectoris; R11.2 Nausea with vomiting, unspecified; M79.604 Pain in right leg; R22.41 Localized swelling, mass and lump, right lower limb; Z95.1 Presence of aortocoronary bypass graft; E78.5 Hyperlipidemia, unspecified; I48.91 Unspecified atrial fibrillation; Z79.899 Other long term (current) drug therapy; Z79.84 Long term (current) use of oral hypoglycemic drugs; Z68.25 Body mass index [BMI] 25.0-25.9, adult; S90.32XA Contusion of left foot, initial encounter; X58.XXXA Exposure to other specified factors, initial encounter
CPT/HCPCS: 36415; 36430; 36591; 71045; 73630; 80048; 80053; 81001; 82948; 83605; 83735; 83880; 84145; 84484; 85007; 85025; 85027; 85610; 86850; 86900; 86901; 87040; 87086; 87150; 87186; 87493; 87507; 93005; 94761; 96365; 96366; 96367; 96368; 96375; 96376; 97110; 97161; 97165; 97530; 97535; 99285; G0378; J1940; J2543; J3430; J3480; P9035; P9038

== ENCOUNTER 2024-01-08 07:36 | Outpatient (RCR) | payer MEDICARE, SELFPAY ==
[2023-12-17] VITALS (7 sets, daily range): BP systolic 108–136; BP diastolic 51–69; PULSE 57–63; TEMP 37–37.8; O2SAT 96–97
[2023-12-17 09:12] LABS: Mean Corpuscular HGB Conc 32.3 g/dL (29.9-35.2); Mean Corpuscular Hemoglobin 28.7 pg (26.7-34.0); Mean Corpuscular Volume 88.8 fL (81.0-99.0); Red Blood Count 2.23 10^6/uL (4.20-5.40); Red Cell Distribution Width 16.5 % (11.0-15.0)
[2023-12-17 09:19] LABS: White Blood Count 0.4 10^3/uL (4.0-11.0)
[2023-12-17 09:21] LABS: Hematocrit 19.8 % (36.0-48.0); Hemoglobin 6.4 g/dL (12.0-16.0); Platelet Count 7 10^3/uL (150-450)
[2023-12-17] MEDS: 0.9 % SODIUM CHLORIDE 250 ML 10 ML IV (09:30)
[2023-12-17] MEDS: ACETAMINOPHEN 325 MG TABLET 650 MG PO (09:34)
[2023-12-17] MEDS: DIPHENHYDRAMINE HCL 25 MG CAPSULE PO (09:34)
--- NOTE | 2023-12-17 09:42 | PC.NURSE ---
0900 Arrival ambulatory to chair 1 accompanied by daughter. Alert and oriented. Rt chest port accessed per [place] kraft rn. excellent blood return, labs drawn and sent to laboratory. 0930 Patient and family made aware, prbc's available. will need crossmatched aprox 30 mins wait. platelets coming from [facility] [place]. 0940 IV fluids initiated. medicated with tylenol and benadryl as ordered. Instructed on signs and symptoms of transfusion reaction, ie chest, flank, back pain chest pain itching chilling shortness of breath etc. verbalize understanding. Lungs clear throughout posteriorly to auscultation. no peripheral edema noted. Heart tones strong and regular.
--- NOTE | 2023-12-17 10:24 | PC.NURSE ---
prbc's initiated at 120 ml hr.
--- NOTE | 2023-12-17 10:47 | PC.NURSE ---
19296 tolerating prb's. rate increased to 250 ml/hr. dozing on and off in recliner
[2023-12-17 10:54] LABS: Alanine Aminotransferase 22 U/L (14-59); Albumin Level 2.7 g/dL (3.4-5.0); Alkaline Phosphatase 117 U/L (46-116); Anion Gap 11.7; Aspartate Amino Transferase 13 U/L (15-37); BUN Creatinine Ratio 18.9; Bilirubin Total 0.9 mg/dL (0.2-1.0); Calcium 8.5 mg/dL (8.5-10.1); Carbon Dioxide 26.3 mmol/L (21.0-32.0); Chloride 107 mmol/L (98-107); Estimated GFR (African America >60 (>=60); Estimated GFR (Non-African Ame >60 (>=60); Globulin 2.6 g/dL; Glucose 130 mg/dL (74-106); Sodium 141 mmol/L (136-145); Total Protein 5.3 g/dL (6.4-8.2)
--- NOTE | 2023-12-17 11:35 | PC.NURSE ---
tolerating prbc's without any s/s of reactioon.
[2023-12-17 11:36] LABS: Lymphocytes Absolute Manual 0.31 10^3/uL (1.20-3.80); Monocytes Absolute Manual 0.03 10^3/uL (0.30-0.80); Segmented Neut Absolute Manual 0.03 10^3/uL (1.4-6.5)
[2023-12-17 11:37] LABS: Blast Absolute Manual 0.01
[2023-12-17 11:39] LABS: Ovalocytes 1+; Poikilocytosis 1+
[2023-12-17 11:40] LABS: Acanthocytes 1+
--- NOTE | 2023-12-17 11:55 | PC.NURSE ---
1145 prbc's infused ns flush began 1155 platelets initiated at 120 ml hr.
--- NOTE | 2023-12-17 12:07 | PC.NURSE ---
platelets infusing without difficulty. rate increased to 225. meal ordered.
[2023-12-17] MEDS: HEPARIN SODIUM (PORCINE) PF LOCK FLUSH 500 UNIT/5 ML SYRINGE IV (13:40)
--- NOTE | 2023-12-17 14:06 | PC.NURSE ---
1330 platlets infused, ns flush initiated 1345 platelets flushed thru, patient tolerated well without any signs/symptoms of reaction. Lungs remain clear, respirations easy lungs clear thruout posterior lung lugo. Released ambulatory using walker.
[2023-12-20 09:08] VITALS: BP 150/66; PULSE 67; TEMP 36.8; O2SAT 92
[2023-12-20 09:31] LABS: Mean Corpuscular HGB Conc 32.7 g/dL (29.9-35.2); Mean Corpuscular Hemoglobin 28.3 pg (26.7-34.0); Mean Corpuscular Volume 86.6 fL (81.0-99.0); Red Blood Count 2.47 10^6/uL (4.20-5.40); Red Cell Distribution Width 16.9 % (11.0-15.0)
[2023-12-20 09:37] LABS: Hematocrit 21.4 % (36.0-48.0); White Blood Count 0.6 10^3/uL (4.0-11.0)
[2023-12-20 09:38] LABS: Platelet Count 5 10^3/uL (150-450)
[2023-12-20] MEDS: DIPHENHYDRAMINE HCL 25 MG CAPSULE PO (09:45)
[2023-12-20] MEDS: ACETAMINOPHEN 325 MG TABLET 650 MG PO (09:45)
[2023-12-20 09:46] LABS: Alanine Aminotransferase 20 U/L (14-59); Albumin Globulin Ratio 0.9; Albumin Level 2.6 g/dL (3.4-5.0); Alkaline Phosphatase 112 U/L (46-116); Aspartate Amino Transferase 11 U/L (15-37); Bilirubin Total 1.2 mg/dL (0.2-1.0); Calcium 8.4 mg/dL (8.5-10.1); Chloride 105 mmol/L (98-107); Estimated GFR (African America >60 (>=60); Estimated GFR (Non-African Ame >60 (>=60); Globulin 2.8 g/dL; Glucose 133 mg/dL (74-106); Sodium 138 mmol/L (136-145); Total Protein 5.4 g/dL (6.4-8.2)
[2023-12-20 09:51] VITALS: BP 150/66; PULSE 67; TEMP 36.8; O2SAT 92
[2023-12-20] MEDS: 0.9 % SODIUM CHLORIDE 250 ML 20 ML IV (09:55)
[2023-12-20 10:10] VITALS: BP 151/64; PULSE 67; TEMP 37.5; O2SAT 96
--- NOTE | 2023-12-20 10:17 | PC.NURSE ---
0908: Pt. to [facility] amb. for blood draw. Ambulates using walker. Weight obtained. Seated in recliner. VSS. Using sterile technique, right ant chest port accessed without difficulty. See documentation. Blood obtained for ordered labs. Port secured with Opsite. Pt. tolerated with minimal c/o. Pt. given water and warm blanket. Breakfast ordered. Daughter at chairside. 0936: Lab phones with critical labs. Reported to RICHY Berger. Pt. notified need for PRBC and platelet infusion. Pt. requests to get blood today and platelets tomorrow.
--- NOTE | 2023-12-20 10:23 | PC.NURSE ---
0945: Pt. medicated with Tylenol and Benadryl p.o. as ordered pre-transfusion. See documentation. 0954: 1 unit PRBC initiated at this time.
[2023-12-20 10:55] VITALS: BP 154/64; PULSE 68; TEMP 37.4; O2SAT 97
--- NOTE | 2023-12-20 11:09 | PC.NURSE ---
1010: Tolerating transfusion without c/o. VSS. Denies needs or c/o. 1040: Pt. without changes. Denies needs. Daughter at chairside. 1055: VSS. Drinking water. Denies needs.
[2023-12-20 11:35] VITALS: BP 125/67; PULSE 68; TEMP 38; O2SAT 96
--- NOTE | 2023-12-20 11:48 | PC.NURSE ---
1135: PRBC infusion completed at this time. VSS. Temp. elevated to 100.4. Denies c/o chills, n/v, dyspnea or pain. Instructed to monitor temp. at home and take Tylenol as directed. Pt. relays understanding. Port flushed with saline. Port de-accessed. No bleeding to site. 2x2 dressing placed prophylactically. 1142: Pt. d/c'd amb. to home with daughter.
[2023-12-20 13:05] LABS: Monocytes Absolute Manual 0.04 10^3/uL (0.30-0.80); Segmented Neut Absolute Manual 0.14 10^3/uL (1.4-6.5)
[2023-12-20 13:06] LABS: Anisocytosis 1+; Hypochromasia 1+; Ovalocytes 1+
--- NOTE | 2023-12-21 10:49 | PC.NURSE ---
1035 Arrival ambulatory, alert oreinted, color pale skin warm and dry. patient complains of being nauseated and not eating.
[2023-12-21 10:50] VITALS: BP 127/65; PULSE 65; TEMP 37.9; O2SAT 94
--- NOTE | 2023-12-21 11:03 | PC.NURSE ---
1045 Lung clear throughout posteriorly. heart tones strong and regular.
[2023-12-21] MEDS: ACETAMINOPHEN 325 MG TABLET 650 MG PO (11:07)
[2023-12-21] MEDS: DIPHENHYDRAMINE HCL 25 MG CAPSULE PO (11:08)
[2023-12-21 11:09] VITALS: BP 119/61; PULSE 63; TEMP 38.1; O2SAT 93
[2023-12-21] MEDS: 0.9 % SODIUM CHLORIDE 250 ML 10 ML IV (11:09)
--- NOTE | 2023-12-21 11:16 | PC.NURSE ---
Tolerating platelets, rate increased to 250mlhr. drinking cranberry juice, reclined in recliner.
--- NOTE | 2023-12-21 11:50 | PC.NURSE ---
1150 tolerating platelets without any s/s of reaction
[2023-12-21 11:51] VITALS: BP 120/71; PULSE 60; TEMP 37.1; O2SAT 95
[2023-12-21 12:19] VITALS: BP 113/62; PULSE 63; TEMP 37.7; O2SAT 93
--- NOTE | 2023-12-21 12:23 | PC.NURSE ---
2nd unit of platelets initiated. meal ordered
[2023-12-21 12:36] VITALS: BP 110/68; PULSE 60; TEMP 37.3; O2SAT 95
[2023-12-21 13:30] VITALS: BP 120/63; PULSE 60; TEMP 37.3; O2SAT 95
--- NOTE | 2023-12-21 15:02 | PC.NURSE ---
1345 Eats 1/3 of hamburger, 100% of pie and ice cream. 1415 2nd units of platelets infused. Lungs clear posteriorly, no peripheral edema, amblated to bathroom and back with walker. Line flushed with NS followed by heparin lock flush port deaccessed. cotton ball and bandaid applied Released ambulatory with walker assisted to car.
[2023-12-28] VITALS (7 sets, daily range): BP systolic 100–163; BP diastolic 59–74; PULSE 58–69; TEMP 37–37.8; O2SAT 90–93
[2023-12-28] MEDS: 0.9 % SODIUM CHLORIDE 250 ML 10 ML IV (09:00)
[2023-12-28] MEDS: POTASSIUM CHLORIDE 20 MEQ in 0.9 % SODIUM CHLORIDE 250 ML 130 MEQ IV (11:22)
[2023-12-28 11:42] LABS: Platelet Count 6 10^3/uL (150-450)
[2023-12-28] MEDS: ACETAMINOPHEN 325 MG TABLET 650 MG PO (13:00)
[2023-12-28] MEDS: DIPHENHYDRAMINE HCL 25 MG CAPSULE PO (13:00)
[2023-12-28] MEDS: 0.9 % SODIUM CHLORIDE 250 ML 30 ML IV (13:20)
--- NOTE | 2023-12-28 13:33 | PC.NURSE ---
1105: Pt. to [facility] via w/c accompanied by 2 daughters. Assisted pt. to chair. Pt. very weak and lethargic. States it's been a rough couple of days. Relays having husbands memorial yesterday. Pt. very somber. VSS. Port a cath. to right ant. chest already accessed with Hawk needle. No redness or edema observed to site. Ecchymotic around port, but has been since insertion. Able to flush port easily and able to aspirate blood easily. Positioned pt. for comfort. IV potassium initiated at this time per. order from Dr. Krueger. Pillow, warm blankets and water provided. 1135: Tolerating KCL infusion without c/o. Assisted pt. to bathroom x's 2 assist. Voided Q.S. Returns to room. No further needs voiced. 1215: Daughters spoke with patient and this RN regarding changing DNR CCA status to DNR CC. Pt. relays she wants no cpr or heroic measures taken. Requests code status be changed to DNR CC. Pt. relays being uncomfortable and wants to lay in bed. Pt. assisted to bed x's 2 assist. Re-positioned for comfort. Warm blankets applied. 1300: Medicated with Tylenol 650mg and Benadryl 25mg p.o. pre-transfusion of platelets. 1304: Elisabet LOCKHART notified Dr. Tapia of patient's request for change in DNR. Dr. Tapia places new order in EMR and paper order faxed to office for signature and to give copy to [facility]. 1316: Potassium infusion completed. First unit Psoralen treated platelets initiated at this time. Pt. given popsicle per request.
--- NOTE | 2023-12-28 14:22 | PC.NURSE ---
1420: Transported to bathroom via recliner chair x's 2 assist. Voided Q.S. Returns to bed. VSS. Given crackers with peanut butter. Drinking water. Denies c/o.
--- NOTE | 2023-12-28 15:12 | PC.NURSE ---
1503: First unit platelets infused without s&s of adverse reaction. Assisted up to bathroom. Pt. appears more alert and able to transfer easily with 1 assist. Voided Q.S. Returns to bed. 1506: Second unit Psoralen treated platelets initiated at this time. Pt. given vanilla ice cream.
--- NOTE | 2023-12-28 15:21 | PC.NURSE ---
1520: Tolerating second unit of platelets. VSS. Attempts to nap. Denies needs.
--- NOTE | 2023-12-28 15:55 | PC.NURSE ---
1555: Pt. without change. Visiting with daughters.
--- NOTE | 2023-12-28 16:16 | PC.NURSE ---
1615: Platelets completed at this time. Dressing to port a cath changed. VSS. Port remains accessed due to request of [place]. Port a cath. flushed with saline.
--- NOTE | 2023-12-28 16:29 | PC.NURSE ---
1625: Pt. assisted to w/c. D/c'd to [place] with daughters.
--- NOTE | 2023-12-28 16:32 | PC.NURSE ---
1633: Report called to Debbi Gutierrez.
[2024-01-01 09:12] LABS: Hematocrit 24.6 % (36.0-48.0); Hemoglobin 7.9 g/dL (12.0-16.0); Mean Corpuscular HGB Conc 32.1 g/dL (29.9-35.2); Mean Corpuscular Hemoglobin 28.1 pg (26.7-34.0); Mean Corpuscular Volume 87.5 fL (81.0-99.0); Red Blood Count 2.81 10^6/uL (4.20-5.40); Red Cell Distribution Width 15.6 % (11.0-15.0); White Blood Count 1.4 10^3/uL (4.0-11.0)
[2024-01-01 09:21] LABS: Platelet Count 7 10^3/uL (150-450)
[2024-01-01 09:37] LABS: Alanine Aminotransferase 48 U/L (14-59); Albumin Globulin Ratio 0.9; Albumin Level 2.4 g/dL (3.4-5.0); Alkaline Phosphatase 109 U/L (46-116); Anion Gap 9.9; Aspartate Amino Transferase 35 U/L (15-37); BUN Creatinine Ratio 15.7; Calcium 8.1 mg/dL (8.5-10.1); Carbon Dioxide 28.9 mmol/L (21.0-32.0); Chloride 106 mmol/L (98-107); Estimated GFR (African America >60 (>=60); Estimated GFR (Non-African Ame >60 (>=60); Globulin 2.6 g/dL; Glucose 120 mg/dL (74-106); Potassium 3.8 mmol/L (3.5-5.1); Sodium 141 mmol/L (136-145)
[2024-01-01 10:00] VITALS: BP 132/72; PULSE 66; TEMP 36.2; O2SAT 94
[2024-01-01 10:10] LABS: Blast Absolute Manual 0.11; Eosinophils Absolute Manual 0.05 10^3/uL (0.00-0.70); Lymphocytes Absolute Manual 0.61 10^3/uL (1.20-3.80); Monocytes Absolute Manual 0.25 10^3/uL (0.30-0.80); Segmented Neut Absolute Manual 0.33 10^3/uL (1.4-6.5)
[2024-01-01 10:11] LABS: Ovalocytes 1+
[2024-01-01] MEDS: DIPHENHYDRAMINE HCL 25 MG CAPSULE PO (10:28)
[2024-01-01] MEDS: ACETAMINOPHEN 325 MG TABLET 650 MG PO (10:29)
[2024-01-01] MEDS: 0.9 % SODIUM CHLORIDE 250 ML 30 ML IV (10:36)
[2024-01-01 11:22] VITALS: BP 132/74; PULSE 60; TEMP 36.2; O2SAT 94
[2024-01-01 11:39] VITALS: BP 97/47; PULSE 54; TEMP 36.7; O2SAT 93
[2024-01-01 11:40] VITALS: BP 115/54; PULSE 55; TEMP 36.9; O2SAT 96
[2024-01-01] MEDS: ONDANSETRON PF 4 MG/2 ML VIAL IV (11:55)
--- NOTE | 2024-01-01 12:01 | PC.NURSE ---
1000: Pt to [facility] via w/c from Dr. Krueger's office. Port accessed already. Assisted pt. to bed for comfort. VSS. Awaits unit of Psoralen treated platelets. Given water. Declines food.
--- NOTE | 2024-01-01 12:03 | PC.NURSE ---
1028: Pre--medicated with Tylenol and Benadryl for platelet transfusion. See documentation.
[2024-01-01 12:23] VITALS: BP 128/47; PULSE 58; TEMP 37.2; O2SAT 98
[2024-01-01 13:05] VITALS: BP 129/56; PULSE 64; TEMP 36.9; O2SAT 99
--- NOTE | 2024-01-01 13:24 | PC.NURSE ---
1124: 1 unit Psoralen treated platelets initiated at this time. Assisted pt. up to bathroom. Voided Q.S. Returns to bed. Positioned for comfort. 1140: VSS. Tolerating platelets without s&s of adverse reaction. Relays wanting to eat something, but requests anti-emetic prior due to history of feeling nauseated when she eats. 1151: Medicated with Zofran 4mg IVP. Lunch tray ordered. 1215: Pt. given cheese pizza as requested with Diet Coke. 1245: Assisted pt. to bathroom. 1305: Platelet infusion completed at this time. VSS. 0.9% NS infusing at this time. 1320: Up to bathroom. Pt. passes large amount loose light brown stool. Ros care provided. Assisted to w/c. Requests to wait in w/c for daughter to take back to [facility]. 1328: Pt. d/c'd via w/c to [place] with daughter.
[2024-01-04 10:01] LABS: Hemoglobin 7.4 g/dL (12.0-16.0); Mean Corpuscular HGB Conc 32.2 g/dL (29.9-35.2); Mean Corpuscular Hemoglobin 28.4 pg (26.7-34.0); Mean Corpuscular Volume 88.1 fL (81.0-99.0); Red Blood Count 2.61 10^6/uL (4.20-5.40); Red Cell Distribution Width 16.2 % (11.0-15.0); White Blood Count 2.4 10^3/uL (4.0-11.0)
--- NOTE | 2024-01-04 10:01 | PC.NURSE ---
Rt chest port deaccessed, reaccessed with# 20 ga 3/4 inch hernandez, understerile technique, tolerated well. excellent blood return noted
[2024-01-04 10:06] LABS: Platelet Count 6 10^3/uL (150-450)
[2024-01-04] MEDS: 0.9 % SODIUM CHLORIDE 250 ML 30 ML IV (10:30)
--- NOTE | 2024-01-04 10:38 | PC.NURSE ---
alert oriented daughter at bedside, pt placed in bed with head of bed elevated. Lungs clear throughout anterio lateral lugo. heart tones regular, with murmur noted, noted 2+pitting pedal edema
[2024-01-04] MEDS: DIPHENHYDRAMINE HCL 25 MG CAPSULE PO (10:39)
[2024-01-04] MEDS: ACETAMINOPHEN 325 MG TABLET 650 MG PO (10:40)
[2024-01-04 10:58] VITALS: BP 104/64; PULSE 62; TEMP 37.1; O2SAT 96
[2024-01-04 11:05] LABS: Lymphocytes Absolute Manual 0.98 10^3/uL (1.20-3.80); Segmented Neut Absolute Manual 0.55 10^3/uL (1.4-6.5)
[2024-01-04 11:06] LABS: Eosinophils Absolute Manual 0.04 10^3/uL (0.00-0.70); Metamyelocytes Absolute Manual 0.04; Monocytes Absolute Manual 0.72 10^3/uL (0.30-0.80); Myelocytes Absolute Manual 0.02
[2024-01-04 11:09] LABS: Poikilocytosis 2+
[2024-01-04 11:10] LABS: Acanthocytes 1+; Ovalocytes 1+; Tear Drop Cells 1+
[2024-01-04 11:18] VITALS: BP 106/70; PULSE 60; TEMP 37; O2SAT 97
--- NOTE | 2024-01-04 12:13 | PC.NURSE ---
tolerating prbc's without any issues, rate at 240 ml hr. assisted up to bathroom voids qs, returned to bed per wheelchair. eating soup and pie at this time
[2024-01-04 12:57] VITALS: BP 104/63; PULSE 60; TEMP 36.9
--- NOTE | 2024-01-04 12:58 | PC.NURSE ---
1240 prbc's infused NS flush started. 1258 platelets initiated see TAR
[2024-01-04 13:15] VITALS: BP 106/64; PULSE 59; TEMP 37; O2SAT 95
[2024-01-04 13:19] VITALS: BP 115/64; PULSE 59; TEMP 37; O2SAT 95
[2024-01-04 14:30] VITALS: BP 116/70; PULSE 64; TEMP 37.1; O2SAT 95
[2024-01-04] MEDS: HEPARIN SODIUM (PORCINE) PF LOCK FLUSH 500 UNIT/5 ML SYRINGE IV (14:30)
--- NOTE | 2024-01-04 14:40 | PC.NURSE ---
1430 platelets infused, tolerated well line flushed with ns and hep lock solution. Assisted to bathroom per wheelchair, voids qs. very fatigued, otherwise voices no complaints. lungs clear posterior lugo, no shortness of breath. 1445 releasedd per wheelchair to private auto with daughter
[2024-01-08 11:27] VITALS: BP 114/69; PULSE 62; TEMP 37.1; O2SAT 95
[2024-01-08] MEDS: 0.9 % SODIUM CHLORIDE 250 ML 30 ML IV (11:45)
[2024-01-08 11:53] LABS: Platelet Count 8 10^3/uL (150-450)
[2024-01-08] MEDS: ACETAMINOPHEN 325 MG TABLET 650 MG PO (11:56)
[2024-01-08 12:12] VITALS: BP 114/69; PULSE 62; TEMP 37.1
[2024-01-08 12:30] VITALS: BP 98/61; PULSE 61; TEMP 37; O2SAT 97
[2024-01-08 13:12] VITALS: BP 106/67; PULSE 64; TEMP 37.2; O2SAT 92
[2024-01-08] MEDS: DIPHENHYDRAMINE HCL 25 MG CAPSULE PO (13:54)
--- NOTE | 2024-01-08 14:11 | PC.NURSE ---
1127: Pt. brought to [facility] via w/c per. granddaughters. Assisted pt. to bed. VSS. Right ant. chest port already accessed. Flushes easily with good blood return. Blood obtained for ordered labs. Repositioned pt. for comfort. 1216: 1 unit psoralen treated platelets initiated at this time. Lunch tray ordered for patient. Given water. Relays comfort.
--- NOTE | 2024-01-08 14:21 | PC.NURSE ---
1230: Tolerating platelets without c/o. VSS. Lunch tray provided. 1250: Assisted up to bathroom to void x's 1 assist. Voided Q.S. Assisted back to bed. Attempts to nap. 1312: Platelet infusion completed at this time. VSS. No s&s of adverse reaction. Port de-accessed at this time. Using sterile technique, port a cath accessed with new #20 gauge Hawk needle without difficulty. Flushed with saline and Heparin. Sterile Opsite dressing applied. Pt. tolerated with minimal c/o discomfort. 1320: Assisted pt. to w/c. D/c'd back to [facility] with granddaughters.
== END 2024-01-11 10:49 | disposition home or self-care (01) ==
LOC: INF 07:36
PROVIDERS: PCP Family Medicine; Visit Provider Internal Medicine Hematology & Oncology
DX: C92.00 Acute myeloblastic leukemia, not having achieved remission (principal); R11.2 Nausea with vomiting, unspecified; M79.604 Pain in right leg; R22.41 Localized swelling, mass and lump, right lower limb; I25.10 Atherosclerotic heart disease of native coronary artery without angina pectoris; E78.5 Hyperlipidemia, unspecified; I48.91 Unspecified atrial fibrillation; Z79.01 Long term (current) use of anticoagulants; Z95.1 Presence of aortocoronary bypass graft; D69.6 Thrombocytopenia, unspecified; Z87.440 Personal history of urinary (tract) infections; Z87.01 Personal history of pneumonia (recurrent)
CPT/HCPCS: 36415; 36430; 36591; 80053; 85007; 85025; 85027; 85049; 86850; 86900; 86901; 96365; 96366; 96374; G0463; J1642; J2405; J3480; P9035; P9038